=== PATIENT | male | born 1950 | race Caucasian/White ===

== ENCOUNTER 2021-11-27 11:23 | Inpatient (IN) ==
[2021-11-27] MEDS ORDERED: fentaNYL citrate 100 MCG/2 ML VIAL IV STA (11:36)
--- NOTE | 2021-11-27 11:43 | Emergency Department Note ---
Impression & Plan Fall, Closed left hip fracture ED Provider Note Provider: Max Moy MD DATE OF SERVICE: 11/27/2021 CHIEF COMPLAINT: Fall, left hip HISTORY OF PRESENT ILLNESS: Patient is a 71-year-old patient with past medical history including hypothyroidism, interstitial lung disease, and atrial fibri llation only on 81 mg aspirin at this time presenting today after a fall. Patient was walking his dog and his dog pulled him and he fell onto the pavement on his left hip. Immediate pain. Able to sit up and unable to stand due to pain in left hip. Little bit of slight increased numbness from his baseline neuropathy in the left leg but significant pain in the left hip region not in the left knee or ankle or foot. Patient received little bit of fentanyl prior to arrival which has helped with the pain. States he did bump his head but not having significant headache, dizziness, blurry vision, or nauseousness. Denies any significant pain to the upper extremities or injury here. Denies chest pain or shortness of breath. Denies abdominal pain. REVIEW OF SYSTEMS: A total of 10 review of systems was obtained and negative except as stated above in the HPI. PAST MEDICAL HISTORY: As noted above MEDICATIONS: 81 mg SOCIAL HISTORY: Lives at home with PHYSICAL EXAM: GENERAL: alert and oriented in no acute distress on stretcher Head: normocephalic and atraumatic EYES: No injection, discharge or icterus. NECK: Trachea midline. Supple. ENT: Mucous membranes pink and moist. LUNGS: Airway patent. No retractions. Breath sounds clear with good air entry bilaterally. HEART: Regular rate and rhythm. No chest wall tenderness ABDOMEN: Soft and non-tender, without guarding or rebound. SKIN: Acyanotic, warm, dry, without rashes EXTREMITIES: Without swelling, tenderness or deformity except for some shortening and significant pain with ROM of the left hip region with tenderness here. Bruising. Slight abrasion to the left knee but no significant effusion. No bony tenderness left knee, left henderson/calf, or left ankle/foot. NEUROLOGICAL: No focal deficits. No aphasia. No facial droop or slurred speech. Normal strength and tone in the extremities except limited secondary to pain around the left hip. Sensation to gross touch normal. EKG: Under 4 beats for a sinus tachycardia. No PVC or PAC. No acute ST segment elevation with an incomplete right bundle branch block noted. QTc 473. CONTINUOUS CARDIAC MONITORING: was ordered and showed a heart rate of 90s-100s bpm in normal sinus rhythm to sinus tachycardia GCS 15. Patient's laboratory studies and imaging reviewed. Differential includes Fracture, subluxation, dislocation, contusion, ligamentous injury, neurovascular, compartment syndrome, rhabdomyolysis, as well as other pathologies. IMPRESSION/MEDICAL DECISION MAKING: Patient with a fall from walking his dog. No loss of conscious. Is on aspirin. Did strike head but no other neurological finding. Did complete a head CT to exclude acute intracranial abnormality. Denies other injuries beyond the left hip. Small abrasion on left knee but no evidence significant swelling or deformity. No significant tenderness here. Some slight increased numbness r eports in left foot but able to feel gross touch. Good pulse in this left foot. Patient with evidence on x-ray of a left subcapital hip fracture. Given some fentanyl for pain with as needed morphine ordered. Some Tylenol. Basic labs obtained. We will alert the orthopedic team as well as the hospitalist team for further care here for repair. Blood work without significant abnormality. DIAGNOSIS: Fall, left hip fracture DISPOSITION: Hospitalist will evaluate Patient was agreeable with this plan. Past Med/Surg History Medical History History of anesthesia reaction woke up once during a colonoscopy History of atrial fibrillation follows with Dr. Graves Hodgkin disease diagnosed at age 27--had radiation and spleenectomy Hypothyroidism Sleep apnea cpap Surgical History History of cardiac cath 2016 no stents History of cardiac radiofrequency ablation x2-- History of cardioversion History of colonoscopy History of lymph node biopsy malignant--hodgkin History of splenectomy History of wisdom tooth extraction Family History Other No family history of adverse response to anesthesia Social History Smoking Status: Former smoker Tobacco Type: Cigarettes Second Hand Exposure: Yes (mom smoked); Hx Alcohol Use: No Hx Substance Use: No Preferred Language: Arabic Communication Ability: Effective Rn Angiography Required: No Beliefs That Will Affect Care: None Current Living Situation: Spouse Feels Safe at Home: Yes Assistive Devices: Contacts, CPAP and Glasses Allergies Allergies Allergy/AdvReac Type Severity Reaction Status Date / Time No Known Allergies Allergy Verified 05/21/19 08:49 Home Meds Home Medications Medication Instructions Recorded Confirmed aspirin 81 mg tablet,delayed 81 mg PO QAM 11/16/18 11/27/21 release levothyroxine 75 mcg tablet 75 mcg PO QAM 11/16/18 11/27/21 L.acidophil-L.casei-B.bifid-B.longum-FOS 1 cap PO QAM 05/07/19 11/27/21 2 billion cell-50 mg capsule (Probiotic Blend) cholecalciferol (vitamin D3) 25 1,000 unit PO QAM 05/07/19 11/27/21 mcg (1,000 unit) capsule (Vitamin D3) cyanocobalamin (vitamin B-12) 1,000 mcg PO QAM 05/07/19 11/27/21 1,000 mcg tablet (Vitamin B-12) omeprazole 20 mg tablet,delayed 20 mg PO QAM 05/07/19 11/27/21 release albuterol 90 mcg/actuation aerosol 90 mcg INHALATION Q6H PRN 11/27/21 11/27/21 inhaler Results & Data (ED) Vital Signs Vital Signs - 24 hr 11/27/21 11:17 11/27/21 11:23 11/27/21 13:17 Temperature 36.7 C Temperature Source Oral Pulse Rate 106 H Pulse Rate [Left Finger] 98 H Respiratory Rate 18 16 16 Respiratory Depth Normal Blood Pressure 132/79 Blood Pressure [Right Arm] 124/80 118/74 Blood Pressure Mean 96 Blood Pressure Mean [Right Arm] 94 88 Pulse Oximetry 98 95 99 Oxygen Delivery Method Room Air Room Air Room Air Sepsis Recent Fever Within 48 Hours No Sepsis New/Unexplained Change in Mental Status No Sepsis Action Taken by Nursing No Action Required Laboratory Data Result diagrams: 11/27/21 12:07 11/27/21 12:07 Lab Results 11/27/21 11/27/21 11/27/21 Range/Units 12:07 12:07 Unknown WBC 11.02 H (4.8-10.8) K/uL RBC 3.65 L (4.7-6.1) M/uL Hgb 12.7 L (14.0-18.0) g/dL Hct 37.9 L (42-52) % MCV 103.8 H (80-100) fL MCH 34.8 H (25-34) pg MCHC 33.5 (32-36) g/dL RDW Std Deviation 60.5 H (36.4-46.3) fL RDW Coeff of Reza 15.8 H (11.5-14.5) % Plt Count 268 (130-400) K/uL MPV 11.2 H (7.4-10.4) fL Immature Gran % (Auto) 0.3 % Neut % (Auto) 83.5 % Lymph % (Auto) 7.4 % [place] % (Auto) 7.8 % Eos % (Auto) 0.6 % Baso % (Auto) 0.4 % Neut # (Auto) 9.21 H (1.4-6.5) K/uL Lymph # (Auto) 0.81 L (1.2-3.4) K/uL [place] # (Auto) 0.86 H (0.11-0.59) K/uL Eos # (Auto) 0.07 (0-0.5) K/uL Baso # (Auto) 0.04 (0-0.2) K/uL Immature Gran # (Auto) 0.03 H (0.00-0.02) K/uL Sodium 136 (136-145) mmol/L Potassium 4.7 (3.5-5.1) mmol/L Chloride 97 L (98-107) mmol/L Carbon Dioxide 35 H (21-32) mmol/L Anion Gap 4 (3-11) BUN 17 (6-23) mg/dl Creatinine 0.82 (0.6-1.4) mg/dl Est Cr Clr Drug Dosing 76.7 ml/min Est GFR ( Amer) 102.4 ml/min Est GFR (Non-Af Amer) 88.3 ml/min BUN/Creatinine Ratio 20.7 H (10-20) Glucose 100 H (70-99(Fasting)) mg/dl Calcium 9.4 (8.5-10.1) mg/dl SARS-CoV-2, RNA, NAAT NEGATIVE (NEGATIVE) Administered Medications Discontinued Medications Fentanyl Citrate (Fentanyl Citrate 100 Mcg/2 Ml Vial) 50 mcg IV NOW STA Stop: 11/27/21 11:37 Last Admin: 11/27/21 11:40 Dose: 50 mcg Documented by: [id number] Acetaminophen (Ofirmev) 1,000 mg in 100 mls @ 400 mls/hr IV NOW STA Stop: 11/27/21 12:33 Last Infusion: 11/27/21 13:29 Dose: 0 mls/hr Documented by: [id number] Admin: 11/27/21 12:45 Dose: 400 mls/hr Documented by: [id number] Morphine Sulfate (Morphine Sulfate 4 Mg/Ml 1 Ml Carp\Vial) 4 mg IV PRN ONE Stop: 11/27/21 12:21 Last Admin: 11/27/21 12:45 Dose: 4 mg Documented by: [id number] Imaging Data Radiologist's Impression: Chest X-Ray 11/27/21 11:36 XR chest 1V portable CLINICAL HISTORY: fall. Evaluate cardiopulmonary status COMPARISON STUDY: 04/02/2016 TECHNIQUE: 1 view of the chest FINDINGS: Single frontal view of the chest demonstrates the cardiomediastinal silhouette to be within normal limits. Chronic prominence of the interstitial markings is again seen bilaterally. The lungs are clear of alveolar opacities. There is no evidence for pleural effusion. There is no evidence for vascular congestion. There is no acute osseous pathology. IMPRESSION: 1. No acute cardiopulmonary disease. Chronic prominence of the interstitial markings is again seen. ACT 112: Negative or not required by law. Electronically signed by: Link Welsh M.D. 11/27/2021 12:03 PM Hip/Pelvis X-Ray 11/27/21 11:36 XR hip LT 2V w pelvis CLINICAL HISTORY: Status post fall with left hip pain. COMPARISON STUDY: No previous studies for comparison. TECHNIQUE: AP pelvis and left hip 2 views FINDINGS: Bones: There is a displaced, subcapital fracture left femoral neck. The femoral shaft and neck is superiorly displaced in relation to the femoral head. There is coxa varus deformity present. There is no lytic or blastic lesion. Joints: The femoral head maintains its anatomic position within the acetabulum. Soft tissues: There is no focal soft tissue abnormality. There is no radiopaque foreign body. IMPRESSION: 1. Displaced, subcapital fracture of the left femoral neck with coxa varus deformity present. ACT 112: Negative or not required by law. Electronically signed by: Link Welsh M.D. 11/27/2021 12:[address] 11/27/21 12:03 CT head/brain wo con CLINICAL HISTORY: fall on ASA . Evaluate for bleed COMPARISON STUDY: No previous studies for comparison. CT DOSE: 614.27 mGy.cm TECHNIQUE: Standard CT of the Brain was performed without IV contrast. A dose lowering technique was utilized adhering to the principles of ALARA. FINDINGS: Extraaxial space: There is no evidence for subdural hematoma. There are no extra-axial fluid collections. Ventricles and cisterns: The ventricles are mildly dilated bilaterally. There is no evidence for midline shift or mass effect. Parenchyma: There is no subarachnoid or intraparenchymal hemorrhage. There is no evidence for an acute infarct or cerebral edema. There is mild cerebral cortical atrophy and decreased attenuation in the periventricular white matter representing remote small vessel disease. There are no gross mass lesions. Osseous structures: There is no evidence for an acute fracture. The visualized paranasal sinuses are clear. The mastoid air cells are clear bilaterally. Soft tissues: There is no evidence for focal soft tissue swelling. IMPRESSION: 1. No acute intracerebral pathology. 2. Mild cerebral cortical atrophy and remote small vessel disease. ACT 112: Negative or not required by law. Electronically signed by: Link Welsh M.D. 11/27/2021 1:23 PM Discharge Plan Visit Data Chief Complaint: Fall Stated Complaint: FALL, L HIP PAIN ED Provider: Max Moy Discharge Problem: Fall, Closed left hip fracture Patient Disposition: Being Evaluated by Hospitalist Forms Stand Alone Forms: [facility] [place] Prescriptions Prescriptions: No Action aspirin 81 mg Tablet,Delayed Release (Dr/Ec) 81 mg PO QAM RF: 0 levothyroxine 75 mcg tablet 75 mcg PO QAM RF: 0 cyanocobalamin (vitamin B-12) [Vitamin B-12] 1,000 mcg Tablet 1,000 mcg PO QAM RF: 0 cholecalciferol (vitamin D3) [Vitamin D3] 1,000 unit Capsule 1,000 unit PO QAM RF: 0 omeprazole 20 mg Tablet,Delayed Release (Dr/Ec) 20 mg PO QAM RF: 0 Probiotic Blend 2 billion cell-50 mg Capsule 1 cap PO QAM RF: 0 albuterol 90 mcg/actuation Aerosol 90 mcg INHALATION Q6H PRN (Reason: Shortness Of Breath Or Wheezing) RF: 0 Referrals Referrals: Jason Karimi DO [Primary Care Provider] -
--- NOTE | 2021-11-27 12:03 | XRay Report ---
XR hip LT 2V w pelvis CLINICAL HISTORY: Status post fall with left hip pain. COMPARISON STUDY: No previous studies for comparison. TECHNIQUE: AP pelvis and left hip 2 views FINDINGS: Bones: There is a displaced, subcapital fracture left femoral neck. The femoral shaft and neck is sup eriorly displaced in relation to the femoral head. There is coxa varus deformity present. There is no lytic or blastic lesion. Joints: The femoral head maintains its anatomic position within the acetabulum. Soft tissues: There is no focal soft tissue abnormality. There is no radiopaque foreign body. IMPRESSION: 1. Displaced, subcapital fracture of the left femoral neck with coxa varus deformity present. ACT 112: Negative or not required by law. Electronically signed by: Link Welsh M.D. 11/27/2021 12:01 PM
--- NOTE | 2021-11-27 12:04 | XRay Report ---
XR chest 1V portable CLINICAL HISTORY: fall. Evaluate cardiopulmonary status COMPARISON STUDY: 04/02/2016 TECHNIQUE: 1 view of the chest FINDINGS: Single frontal view of the chest demonstrates the cardiomediastinal silhouette to be within normal li mits. Chronic prominence of the interstitial markings is again seen bilaterally. The lungs are clear of alveolar opacities. There is no evidence for pleural effusion. There is no evidence for vascular c ongestion. There is no acute osseous pathology. IMPRESSION: 1. No acute cardiopulmonary disease. Chronic prominence of the interstitial markings is again seen. ACT 112: Negative or not required by law. Electronically signed by: Link Welsh M.D. 11/27/2021 12:03 PM
[2021-11-27] MEDS ORDERED: ACETAMINOPHEN 1,000 MG/100 ML VIAL IV STA (12:19)
[2021-11-27] MEDS ORDERED: MoRPHine SULFATE 4 MG/ML 1 ML CARP\\VIAL IV ONE (12:20)
[2021-11-27 12:24] LABS: Hematocrit (blood only) 37.9 % (42-52); Hemoglobin 12.7 g/dL (14.0-18.0); Mean Corpuscular Hemoglobin 34.8 pg (25-34); Mean Corpuscular Hgb Conc 33.5 g/dL (32-36); Mean Corpuscular Volume 103.8 fL (80-100); Mean Platelet Volume 11.2 fL (7.4-10.4); Platelet Count 268 K/uL (130-400); RDW Coefficient of Variation 15.8 % (11.5-14.5); RDW Standard Deviation 60.5 fL (36.4-46.3); Red Blood Count 3.65 M/uL (4.7-6.1); White Blood Count 11.02 K/uL (4.8-10.8)
--- NOTE | 2021-11-27 12:34 | History & Physical Report ---
Date of Service November 27, 2021 Assessment & Plan (1) Closed left hip fracture: Plan: Closed left hip fracture Secondary to fall --Hip X ray:Displaced, subcapital fracture of the left femoral neck with coxa varus deformity present. --CT Head:No acute intracerebral pathology. Mild cerebral cortical atrophy and remote small vessel disease. Pain control, gentle IV fluids CXR: No acute cardiopulmonary disease. Chronic prominence of the interstitial markings is again seen. DVT Px--SCDs for now Orthopedics consulted NPO after midnight bowel regimen to prevent constipation PT/OT when appropriate Given patient's comorbidities, patient is atleast at moderate risk for surgery, no obvious contraindications. Mild leukocytosis Likely reactive Monitor Interstitial lung disease Pulmonary hypertension Follows with [facility] pulmonology as outpatient Saturating well on room air Albuterol as needed Atrial fibrillation S/P pulmonary vein cryoablation in 2016 Atrial flutter S/P tricuspid isthmus ablation in 2013 Currently not on any rate control medication secondary to chronic intermittent lightheadedness Currently not on any anticoagulation Valvular heart disease Aortic regurgitation, aortic stenosis Follows with [facility] cardiology, Dr. Graves Hodgkin's lymphoma S/P splenectomy, radiation therapy Hypothyroidism TSH 3.77 on 10/13/21 Continue levothyroxine Coronary artery disease Continue aspirin Currently not on statin Obstructive sleep apnea Continue CPAP Prediabetes Last HbA1c 6.4 on Jun 02, 2021 Update HbA1C DVT Px: SCDs for now Re: Planned for surgery Code Status DNI/DNR as per my discussion with patient, patient family. History of Present Illness Chief Complaint: Left Hip Pain Primary Care Provider: Jason Karimi DO Patient is a 71-year-old male with history of interstitial lung disease, pulmonary hypertension, atrial fibrillation, atrial flutter, valvular heart disease, Hodgkin's lymphoma, hypothyroidism, coronary artery disease, obstructive sleep apnea, prediabetes and other medical problems presents with history of left hip pain after a fall this morning. Patient states that he was walking with his dog this morning and his dog pulled him which led to him falling onto the pavement. Patient had significant left hip pain after the fall which he rates it at 9/10, nonradiating, associated with tingling and numbness predominantly in his left lower extremity. Pain increases with movement and controlled with pain medication. Patient was unable to stand up or ambulate after the fall. He admits to having hit back of his head but denies any headache, change in vision, loss of consciousness, dizziness. Patient states having chronic peripheral neuropathy of both lower extremities but tingling and numbness in the left lower extremity slightly worsened after the fall. He also reports having chronic dyspnea on exertion which she attributes to interstitial lung disease. Denies any history of chest pain, dyspnea at rest, pedal edema, cough, fever, chills, nausea, vomiting, abdominal pain, dysuria, recent change in medications. Allergies Allergy/AdvReac Type Severity Reaction Status Date / Time No Known Allergies Allergy Verified 05/21/19 08:49 Home Medications Medication Instructions Recorded Confirmed Type aspirin 81 mg tablet,delayed 81 mg PO QAM 11/16/18 11/27/21 History release levothyroxine 75 mcg tablet 75 mcg PO QAM 11/16/18 11/27/21 History L.acidophil-L.casei-B.bifid-B.longum-FOS 1 cap PO QAM 05/07/19 11/27/21 History 2 billion cell-50 mg capsule (Probiotic Blend) cholecalciferol (vitamin D3) 25 1,000 unit PO QAM 05/07/19 11/27/21 History mcg (1,000 unit) capsule (Vitamin D3) cyanocobalamin (vitamin B-12) 1,000 mcg PO QAM 05/07/19 11/27/21 History 1,000 mcg tablet (Vitamin B-12) omeprazole 20 mg tablet,delayed 20 mg PO QAM 05/07/19 11/27/21 History release albuterol 90 mcg/actuation aerosol 90 mcg INHALATION Q6H PRN 11/27/21 11/27/21 History inhaler Past Med/Surg History Medical History History of anesthesia reaction woke up once during a colonoscopy History of atrial fibrillation follows with Dr. Graves Hodgkin disease diagnosed at age 27--had radiation and spleenectomy Hypothyroidism Sleep apnea cpap Surgical History History of cardiac cath 2015 no stents History of cardiac radiofrequency ablation x2-- History of cardioversion History of colonoscopy History of lymph node biopsy malignant--hodgkin History of splenectomy History of wisdom tooth extraction Family History Other No family history of adverse response to anesthesia Social History Smoking Status: Former smoker Tobacco Type: Cigarettes Second Hand Exposure: Yes (mom smoked); Hx Alcohol Use: No Hx Substance Use: No Preferred Language: Albanian Communication Ability: Effective 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 Beliefs That Will Affect Care: None Current Living Situation: Spouse Feels Safe at Home: Yes Assistive Devices: Contacts, CPAP and Glasses Review of Systems Review of Systems: All systems reviewed & are unremarkable except as noted in Subjective Physical Exam Physical Exam: Physical Exam: Vitals signs as noted above General Appearance:Thin, Frail, no apparent distress Head: normocephalic, Atraumatic Eyes: normal inspection, EOMI Neck: supple, Trachea midline Respiratory/Chest: Normal breath sounds, CTA, No accessory muscle use Cardiovascular: S1, S2, + murmur Abdomen/GI:Soft, Non tender, Bowel sounds present Extremities/Musculoskeletal:normal inspection, no edema Neurologic/Psych:AAOX3, grossly no focal neurological deficits, Left Hip tender, LLE shortened, externally rotataed Skin: normal color, warm Results & Data Results & Data ([facility]) Vital Signs (Past 12 Hours) Vital Signs Temp Pulse Resp BP BP Pulse Ox 11/27/21 11:23 36.7 C 106 H 16 132/79 95 11/27/21 11:17 18 124/80 98 Laboratory Results Short CBC 11/27/21 Range/Units 12:07 WBC 11.02 H (4.8-10.8) K/uL Hgb 12.7 L (14.0-18.0) g/dL Hct 37.9 L (42-52) % Plt Count 268 (130-400) K/uL BMP 11/27/21 12:07 Sodium 136 Potassium 4.7 Chloride 97 L Carbon Dioxide 35 H BUN 17 Creatinine 0.82 Glucose 100 H Calcium 9.[address] Head: No acute intracerebral pathology. Mild cerebral cortical atrophy and remote small vessel disease. Hip X ray: Displaced, subcapital fracture of the left femoral neck with coxa varus deformity present. CXR: No acute cardiopulmonary disease. Chronic prominence of the interstitial markings is again seen. (1) Closed left hip fracture Encounter type: initial encounter Qualified Code(s): S72.002A - Fracture of unspecified part of neck of left femur, initial encounter for closed fracture
[2021-11-27 12:37] LABS: BUN Creatinine Ratio 20.7 (10-20); Calcium 9.4 mg/dl (8.5-10.1); Creatinine Clr Calc Pharmacy 76.7 ml/min; Est GFR (African American) 102.4 ml/min; Est GFR (Non-African American) 88.3 ml/min; Potassium 4.7 mmol/L (3.5-5.1)
[2021-11-27 12:52] LABS: Basophils # (auto) 0.04 K/uL (0-0.2); Basophils % (auto) 0.4 %; Eosinophils # (auto) 0.07 K/uL (0-0.5); Eosinophils % (auto) 0.6 %; Immature Granulocytes # (auto) 0.03 K/uL (0.00-0.02); Immature Granulocytes % (auto) 0.3 %; Lymphocytes # (auto) 0.81 K/uL (1.2-3.4); Lymphocytes % (auto) 7.4 %; Monocytes # (auto) 0.86 K/uL (0.11-0.59); Monocytes % (auto) 7.8 %; Neutrophils # (auto) 9.21 K/uL (1.4-6.5); Neutrophils % (auto) 83.5 %
--- NOTE | 2021-11-27 13:25 | CT Scan Report ---
CT head/brain wo con CLINICAL HISTORY: fall on ASA . Evaluate for bleed COMPARISON STUDY: No previous studies for comparison. CT DOSE: 614.27 mGy.cm TECHNIQUE: Standard CT of the Brain was performed without IV contrast. A dose lowering technique was utilized adhering to the principles of ALARA. FINDINGS: Extraaxial space: There is no evidence for subdural hematoma. There are no extra-axial fluid collecti ons. Ventricles and cisterns: The ventricles are mildly dilated bilaterally. There is no evidence for midl ine shift or mass effect. Parenchyma: There is no subarachnoid or intraparenchymal hemorrhage. There is no evidence for an acut e infarct or cerebral edema. There is mild cerebral cortical atrophy and decreased attenuation in the periventricular white matter representing remote small vessel disease. There are no gross mass lesio ns. Osseous structures: There is no evidence for an acute fracture. The visualized paranasal sinuses are clear. The mastoid air cells are clear bilaterally. Soft tissues: There is no evidence for focal soft tissue swelling. IMPRESSION: 1. No acute intracerebral pathology. 2. Mild cerebral cortical atrophy and remote small vessel disease. ACT 112: Negative or not required by law. Electronically signed by: Link Welsh M.D. 11/27/2021 1:23 PM
[2021-11-27] MEDS ORDERED: MoRPHine SULFATE 4 MG/ML 1 ML CARP\\VIAL IV STA (14:23)
[2021-11-27] MEDS ORDERED: PROMETHAZINE HCL 6.25 MG in SODIUM CHLORIDE 0.9% 50 ML IV PRN (15:07)
[2021-11-27] MEDS ORDERED: oxyCODONE HCL IR 5 MG TAB (IMMEDIATE RELEASE) PO PRN (15:07)
[2021-11-27] MEDS ORDERED: ACETAMINOPHEN 325 MG TAB PO PRN (15:07)
[2021-11-27] MEDS ORDERED: NALOXONE HCL 0.4 MG/1 ML VIAL/CARP IV PRN (15:07)
[2021-11-27] MEDS ORDERED: bisacodyL 10 MG SUPP PR PRN (15:07)
[2021-11-27] MEDS ORDERED: MAGNESIUM HYDROXIDE SUSP 30 ML UDC PO PRN (15:07)
[2021-11-27] MEDS ORDERED: MoRPHine SULFATE 2 MG/ML CARP IV PRN (15:07)
--- NOTE | 2021-11-27 17:29 | Electrocardiogram Report ---
Test Reason : Blood Pressure : / mmHG Vent. Rate : 104 BPM Atrial Rate : 104 BPM P-R Int : 176 ms QRS Dur : 092 ms QT Int : 360 ms P-R-T Axes : 069 060 028 degrees QTc Int : 473 ms Sinus tachycardia Possible Left atrial enlargement Incomplete right bundle branch block Borderline ECG When compared with ECG of 16-NOV-2018 08:50, No significant change was found Confirmed by Shay Rodriguez ([id number]) on 11/27/2021 5:29:23 PM Referred By: REFERRED SELF Confirmed By:Daniel Rodriguez
[2021-11-27] MEDS: oxyCODONE HCL IR 5 MG TAB (IMMEDIATE RELEASE) PO PRN ×2 (17:53→21:55)
[2021-11-27] MEDS ORDERED: SODIUM CHLORIDE 0.9% 1000ML 1,000 ML IV ONE (18:00)
--- NOTE | 2021-11-27 18:15 | Orthopedic Consultation ---
Date of Service November 27, 2021 Assessment & Plan (1) Closed left hip fracture: Patient got displaced femoral neck fracture. He has had a little bit of hip pain beforehand and some hip stiffness and some fairly mild arthritis on x- ray. Considering his general health I think it is probably best to proceed with total hip replacement in this gentleman at this point as opposed to a partial hip replacement. I discussed this with the patient and he is in strong favor of this. Organ to proceed taken the operating to a left total hip replacement. We will likely cement the femoral component and use an uncemented acetabulum. The risk meant this procedure explained the patient include but not limited to DVT PE infection neurological injury vascular bleeding palm pain limb range of motion necessarily of symptoms incomplete relief of symptoms fracture leg length inequality nerve palsy dislocation. Patient understands and desires to proceed. Informed consent was obtained. Will continue DVT prophylaxis and including thigh-high teds SCDs. Will likely use aspirin postoperatively. He may need a rehab stay. Medical management as per the medicine service. History of Present Illness Reason for Consultation: . Left hip fracture. Requesting Physician: . Attending Physician: Jeovanny Scott MD . Patient 71-year-old gentleman with multiple medical comorbidities including history of Hodgkin's lymphoma, heart disease, atrial fibrillation status post ablation, hypothyroidism, coronary artery disease and prediabetes as well as interstitial lung disease who sustained a fall this morning at about 830. He was walking his dog when his dog took off and pulled him and he fell. Acute onset of a hip pain. He could not ambulate afterwards. She brought the emergency room where x-rays revealed left displaced femoral neck fracture. Has been admitted by the medicine service and were consulted for treatment. The patient was a previous independent ambulator. He did note that he was has been having little bit hip pain from time to time and have a little bit more difficulty getting it into some of his yoga poses due to his stiffness. Not much groin pain just mostly lateral hip pain and buttock pain. Allergies Allergy/AdvReac Type Severity Reaction Status Date / Time No Known Allergies Allergy Verified 05/21/19 08:49 Home Medications Medication Instructions Recorded Confirmed Type aspirin 81 mg tablet,delayed 81 mg PO QAM 11/16/18 11/27/21 History release levothyroxine 75 mcg tablet 75 mcg PO QAM 11/16/18 11/27/21 History L.acidophil-L.casei-B.bifid-B.longum-FOS 1 cap PO QAM 05/07/19 11/27/21 History 2 billion cell-50 mg capsule (Probiotic Blend) cholecalciferol (vitamin D3) 25 1,000 unit PO QAM 05/07/19 11/27/21 History mcg (1,000 unit) capsule (Vitamin D3) cyanocobalamin (vitamin B-12) 1,000 mcg PO QAM 05/07/19 11/27/21 History 1,000 mcg tablet (Vitamin B-12) omeprazole 20 mg tablet,delayed 20 mg PO QAM 05/07/19 11/27/21 History release albuterol 90 mcg/actuation aerosol 90 mcg INHALATION Q6H PRN 11/27/21 11/27/21 History inhaler Past Med/Surg History Medical History History of anesthesia reaction woke up once during a colonoscopy History of atrial fibrillation follows with Dr. Graves Hodgkin disease diagnosed at age 27--had radiation and spleenectomy Hypothyroidism Sleep apnea cpap Surgical History History of cardiac cath 2015 no stents History of cardiac radiofrequency ablation x2-- History of cardioversion History of colonoscopy History of lymph node biopsy malignant--hodgkin History of splenectomy History of wisdom tooth extraction Family History Other No family history of adverse response to anesthesia Social History Smoking Status: Former smoker Tobacco Type: Cigarettes Smoking End Date: 1977; Second Hand Exposure: No; Tobacco Cessation Education Requested by Patient: No Hx Alcohol Use: No Hx Substance Use: No Preferred Language: Swedish Communication Ability: Effective Cat Tender Required: No Beliefs That Will Affect Care: None Current Living Situation: Spouse Other Information That Helps Us Care for You: No Feels Safe at Home: Yes Safety Concerns: Feels Safe At This Time Assistive Devices: Contacts and Glasses Review of Systems All systems reviewed & are unremarkable except as noted in HPI & below. Physical Exam . Physical examination reveals a healthy a thin healthy male. He looks to be pretty comfortable lying in bed. Looks quite healthy. Examination the General musculoskeletal exam reveals a painless range of motion and palpation of his cervical and thoracic and lumbar spine. He is got full painless range of motion of both upper extremities and the right lower extremity. Examination of left lower extremity reveals to be slightly shortened and externally rotated. He is got pain with any type of hip motion. No knee e ffusion. He is neurologically intact. Results & Data Results & Data Laboratory Results . Diagnostic Findings . X-rays of the left hip reveal displaced femoral neck fracture. He may have some very mild hip arthritis. PG Care Time/CCT Total # of Minutes Spent Total Time Spent with Patient: Total time spent is greater than 50% in coordination of care (as documented) at patient's floor/unit and/or counseling patient: Coding Level of Care Code 28637 Inpt Consult Level 5 Diagnoses Closed left hip fracture S72.002A Encounter type: initial encounter (1) Closed left hip fracture Encounter type: initial encounter Qualified Code(s): S72.002A - Fracture of unspecified part of neck of left femur, initial encounter for closed fracture
[2021-11-27] MEDS: DOCUSATE SODIUM/SENNA 50/8.6MG TAB PO SCH (20:29)
[2021-11-28] MEDS: LEVOTHYROXINE SODIUM 75 MCG TABLET PO SCH (06:09)
[2021-11-28] MEDS: oxyCODONE HCL IR 5 MG TAB (IMMEDIATE RELEASE) PO PRN (06:30)
[2021-11-28] MEDS: CHOLECALCIFEROL 1,000 UNITS 25 MCG TAB PO SCH (07:51)
[2021-11-28] MEDS: CYANOCOBALAMIN (B-12) 500 MCG TABLET PO SCH (07:51)
[2021-11-28] MEDS: PANTOprazole 40 MG TAB PO SCH (07:51)
[2021-11-28] MEDS ORDERED: ASPIRIN 81 MG ECTAB PO SCH (09:00)
[2021-11-28 09:13] LABS: Hematocrit (blood only) 37.2 % (42-52); Hemoglobin 12.1 g/dL (14.0-18.0); Mean Corpuscular Hemoglobin 33.5 pg (25-34); Mean Corpuscular Hgb Conc 32.5 g/dL (32-36); Mean Platelet Volume 12.2 fL (7.4-10.4); Platelet Count 264 K/uL (130-400); RDW Coefficient of Variation 16.2 % (11.5-14.5); RDW Standard Deviation 61.2 fL (36.4-46.3); Red Blood Count 3.61 M/uL (4.7-6.1); White Blood Count 8.91 K/uL (4.8-10.8)
[2021-11-28 09:41] LABS: BUN Creatinine Ratio 21.9 (10-20); Calcium 8.8 mg/dl (8.5-10.1); Creatinine Clr Calc Pharmacy 98.3 ml/min; Est GFR (African American) 113.4 ml/min; Est GFR (Non-African American) 97.8 ml/min; Potassium 4.2 mmol/L (3.5-5.1)
[2021-11-28 10:03] LABS: Estimated Average Glucose 126 mg/dl
[2021-11-28] MEDS ORDERED: LIDOCAINE 2% 2 ML VIAL/AMP(20MG/ML) INFIL ONE (12:57)
[2021-11-28] MEDS ORDERED: ePHEDrine sulfate 50 MG/ML SYR ONE (12:57)
[2021-11-28] MEDS ORDERED: PROPOFOL IV EMULSION 10 MG/ML 20 ML VIAL IV ONE (12:57)
[2021-11-28] MEDS ORDERED: MIDAZOLAM HCL 1 MG/ML 2ML VIAL ONE (12:57)
[2021-11-28] MEDS ORDERED: fentaNYL citrate 100 MCG/2 ML VIAL ONE (12:58)
--- NOTE | 2021-11-28 13:03 | Anesthesiology Consultation ---
Date of Service November 28, 2021 Assessment & Plan (1) Encounter for pre-operative examination: History Surgery Operation Date: 11/28/21 11:40 Proposed Procedures p Left Hip Bipolar Versus - Mike Raygoza MD s Total Hip Arthroplasty - Mike Raygoza MD Height/Weight Height: 6 ft 2 in Weight: 66.6 kg Allergies Allergy/AdvReac Type Severity Reaction Status Date / Time No Known Allergies Allergy Verified 05/21/19 08:49 Medications Home Medications Medication Instructions Recorded Confirmed Last Taken aspirin 81 mg tablet,delayed 81 mg PO QAM 11/16/18 11/27/21 05/20/19 release levothyroxine 75 mcg tablet 75 mcg PO QAM 11/16/18 11/27/21 05/21/19 L.acidophil-L.casei-B.bifid-B.longum-FOS 1 cap PO QAM 05/07/19 11/27/21 05/20/19 2 billion cell-50 mg capsule (Probiotic Blend) cholecalciferol (vitamin D3) 25 1,000 unit PO QAM 05/07/19 11/27/21 05/20/19 mcg (1,000 unit) capsule (Vitamin D3) cyanocobalamin (vitamin B-12) 1,000 mcg PO QAM 05/07/19 11/27/21 05/20/19 1,000 mcg tablet (Vitamin B-12) omeprazole 20 mg tablet,delayed 20 mg PO QAM 05/07/19 11/27/21 05/21/19 release albuterol 90 mcg/actuation aerosol 90 mcg INHALATION Q6H PRN 11/27/21 11/27/21 Unknown inhaler Active Medications Generic Name Dose Route Start Last Admin Trade Name Lenchoq PRN Reason Stop Dose Admin Aspirin 81 mg 11/28/21 09:00 11/28/21 07:51 Aspirin 81 Mg Ectab PO 12/28/21 08:59 Not Given QAM WEST Cyanocobalamin 1,000 mcg 11/28/21 09:00 11/28/21 07:51 Cyanocobalamin (B-12) 500 Mcg Tablet PO 12/28/21 08:59 Not Given QAM WEST Levothyroxine Sodium 75 mcg 11/28/21 06:30 11/28/21 06:09 Levothyroxine Sodium 75 Mcg Tablet PO 12/28/21 06:29 75 mcg DAILYBB WEST Administration Oxycodone HCl 10 mg 11/27/21 15:07 11/28/21 06:30 Oxycodone Hcl Ir 5 Mg Tab (Immediate Release) PO 12/11/21 15:06 10 mg Q4H PRN Administration SEVERE Pain (7,8,9,10) Pantoprazole Sodium 40 mg 11/28/21 09:00 11/28/21 07:51 Pantoprazole 40 Mg Tab PO 12/28/21 08:59 Not Given QAM WEST Senna/Docusate Sodium 2 tab 11/27/21 21:00 11/27/21 20:29 Docusate Sodium/Senna 50/8.6mg Tab PO 12/27/21 20:59 2 tab HS WEST Administration Vitamin D 1,000 units 11/28/21 09:00 11/28/21 07:51 Cholecalciferol 1,000 Units 25 Mcg Tab PO 12/28/21 08:59 Not Given QAM WEST NPO Date Last Intake of Fluids: 11/27/21 Time Last Intake of Fluids: 23:00 Date Last Intake of Solids: 11/27/21 Time Last Intake of Solids: 20:00 Past Medical History Medical History (Updated 11/28/21 @ 13:02 by Suzanne Palencia MD) History of anesthesia reaction woke up once during a colonoscopy History of atrial fibrillation follows with Dr. Graves Hodgkin disease diagnosed at age 27--had radiation and spleenectomy Hypothyroidism Sleep apnea cpap Past Family History Family History Other No family history of adverse response to anesthesia Past Surgical History Surgical History History of cardiac cath 2016 no stents History of cardiac radiofrequency ablation x2-- History of cardioversion History of colonoscopy History of lymph node biopsy malignant--hodgkin History of splenectomy History of wisdom tooth extraction Social History Smoking Status: Former smoker tobacco type: cigarettes Smoking End Date: 1977 Hx Alcohol Use: No Hx Substance Use: No substance use type: does not use Physical Exam Vital Signs Last Vital Signs Temp 37.4 C 11/28/21 12:08 Pulse 114 H 11/28/21 12:08 Resp 20 11/28/21 12:08 BP 127/72 11/28/21 12:08 Pulse Ox 94 11/28/21 12:08 Testing Laboratory Results 11/28/21 07:38 11/28/21 07:38 Hemoglobin A1c 6.0 % (4.5-5.6) H 11/28/21 07:38 Blood Type B Positive 11/27/21 12:07 Antibody Screen NEGATIVE 11/27/21 12:07 Electrocardiogram Date: 11/27/21 Sinus tachycardia Possible Left atrial enlargement Incomplete right bundle branch block Borderline ECG When compared with ECG of 16-NOV-2018 08:50, No significant change was found Confirmed by Shay Rodriguez ([id number]) on 11/27/2021 5:29:23 PM Chest X-Ray Date: 11/27/21 IMPRESSION: 1. No acute cardiopulmonary disease. Chronic prominence of the interstitial markings is again seen.
--- NOTE | 2021-11-28 13:11 | History & Physical Bridge Note ---
Date of Service November 28, 2021 History & Physical Bridge Note I have examined the patient, reviewed the History & Physical and in the interval since the performance of the History & Physical I have noted the following changes of clinical significance: no changes noted
[2021-11-28] MEDS ORDERED: BUPIVACAINE 0.5 % 5 MG/1 ML MPF 30ML VIAL ONE (13:14)
[2021-11-28] MEDS ORDERED: EPINEPHrine INJ 1 MG/ML AMP ONE (13:14)
[2021-11-28] MEDS ORDERED: ceFAZolin 1000MG 1,000 MG/7.5 ML SYR IV ONE (13:15)
[2021-11-28] MEDS ORDERED: TRANEXAMIC ACID / 0.7% NACL 1000MG/100ML BAG IV ONE (13:57)
[2021-11-28] MEDS ORDERED: ONDANSETRON INJ 2 MG/ML 2 ML VIAL ONE (14:27)
[2021-11-28] MEDS ORDERED: DEXAMETHASONE SOD INJ 4 MG/ML VIAL ONE (14:27)
[2021-11-28] MEDS ORDERED: PHENYLEPHRINE HCL 10 MG/ML VIAL ONE (14:27)
[2021-11-28] MEDS ORDERED: ROCURONIUM BROMIDE 10 MG/ML 5 ML VIAL IV ONE (14:27)
[2021-11-28] MEDS ORDERED: LARYING-O-JET KIT (LTA) ONE (14:29)
[2021-11-28] MEDS ORDERED: ALBUMIN HUMAN 5% 12.5 GM/250 ML VIAL IV ONE (14:49)
[2021-11-28] MEDS ORDERED: SUGAMMADEX SODIUM 200 MG/2 ML VIAL IV ONE (15:21)
--- NOTE | 2021-11-28 15:46 | Operative Report ---
PG Post Operative Report Pre & Post Diagnosis Operation Date: 11/28/21 11:40 Pre-Op Diagnosis: Left displaced fermoral neck fracture Post-Op Diagnosis: Left displaced fermoral neck fracture I identified the patient and participated in the time-out.: Yes Procedure Operation Date: 11/28/21 11:40 Actual Procedures p Left Total Hip Arthroplasty(Left) - Mike Raygoza MD Surgeon Mike Raygoza MD Stringed Instrument Tuner Navin Burrows PA-C Estimated Blood Loss 200 Findings Consistent with Post-Op Diagnosis Operative findings revealed displaced femoral neck fracture. The bone appeared otherwise pretty normal but osteopenic. Some moderate/mild hip arthritis. Fluids 1000 cc of fluid/crystalloid with a 250 cc of albumin Specimens Left femoral head sent for pathology Anesthesia Type General Complications none Disposition Accompanied Patient To Recovery: Yes Indications Patient is 71-year-old fairly active gentleman with multiple medical comorbi dities but very independent ambulator and very active who sustained a fall yesterday. He did have a dog apparently took off and he fell and injured his hip. Acute onset of pain and x-rays revealed displaced femoral neck fracture. The patient admitted by the hospitalist service and medically optimized. Patient was having some pre-existing preinjury hip pain and discomfort. He had some fairly mild x-ray changes consistent with arthritis. Considering this is a relatively young age, active lifestyle and the preoperative symptoms we elected proceed with total hip arthroplasty for this hip fracture. This disposition was made in concert with the patient. Description of Procedure Operative implants consisted of: 1 Biomet G7 size 56 mm acetabular shell. 2. 6.5 cancellous acetabular screws 1 of 35 mm length 1.25 mm length. 3. Dual mobility Biomet acetabular liner. 4. DePuy [place] size 3 high offset cemented femoral stem. 5. +8.5/28 mm metal articular ball with a 44mm dual mobility polyethylene liner. 6. Small cement restrictor. 7. Distal femoral centralizer. The patient was taken the operating, identified, placed on the operating table supine position protectors were properly padded. IV antibiotics tried by anesthesia team. General anesthetic was employed by anesthesia team. Whitten catheter was placed in sterile fashion. The patient was then placed in the right lateral decubitus position. An axillary roll was placed. A Stulberg hip positioner was used for positioning. Left hip and leg were then prepped and draped in usual sterile fashion. A posterior lateral approach to the left hip was then performed through a curvilinear incision centered over the greater trochanter. Sharp dissection Through subcutaneous tissue down to the IT band gluteal fascia the IT band gluteal fascia then incised longitudinally in line with skin incision. The underlying greater bursa was excised. The piriformis and external rotators were tagged and taken off the posterior aspect hip joint capsule. Great care was taken throughout the procedure protect the sciatic nerve at all times. A posterior capsulotomy was then performed leaving a large flap for later repair. The hip was internally rotated and dislocated. A femoral neck osteotomy cut was made just below the fracture line. Admitted about a centimeter plus above the lesser trochanter. Femoral head was removed and sent for pathology. The femur was retracted anteriorly. Attention drawn the acetabulum. The acetabular labrum was excised. The pulvinar fat was excised. Sequential reaming the acetabular was then performed begin with size 47 and progressing up to 55. I did reamed a little bit with a 56 reamer and then placed a 56 mm Biomet G7 acetabular shell in about 40 degrees lateral opening and 20 to 25 degrees of anteversion. I did increase the anteversion as this patient was quite active and mobile and I was concerned with the instability. Trial liner was placed. Attention drawn the femur. The proximal femur 10 with a MAPPING cutter followed by canal finder and lateralizing reamer. Then broached begin the size 1 and progressing up to 3. We tried the 4 broach but it was just too tight so we went back to the 3. The calcar reamer was used smooth and off the calcar. We then trialed the hip. That was quite lax with a lot of soft tissue laxity. Therefore we used a high offset implant. I used a +3.5 mm articular ball. We then trialed this with a 36 mm head. Hip was quite stable but there was still some soft tissue laxity. Due to this activity level and the laxity I elect to place a dual mobility insert in order to maximize his stability. All trial implants were removed. A small cement restrictor was placed distally. A double batch [place] G cement was mixed and injected in the femoral canal. A size 3 [place] high offset femoral stem was then placed with a distal centralizer and held until the cement hardened. A +8.5/28 mm metal articular ball was placed followed by the dual mobility liner. We did place the dual mobility acetabular liner prior to cementing the femur. The hip was located once again found to be stable. Attention drawn toward closing. I irrigated extensively. We did inject locally with 60 cc of half percent Marcaine with epinephrine. The posterior capsule and external rotators were repaired through drill holes in the posterior trochanter with #2 Tycron suture. The IT band gluteal fascia then closed in 1 PDS suture in a running fashion for subcutaneous tissues then closed with 2 layers the deep layer #1 Vicryl suture subcutaneous tissue with 2 Dexon suture in a buried interrupted fashion for skin was closed skin savannah. Leg was then cleaned and dried and sterile dressing was Xeroform, 4 fours, sterile ABD pad, foam tape was applied. The patient then brought out of general anesthesia and transferred to the recovery room in stable condition. The patient tolerated the procedure well and there were no complications. Navin Burrows, my physician support assistant, was present for the entire procedure. His assistance was essential and required for appropriate patient positioning, prepping and draping, surgical exposure, performing the technical details of the operation, placement the implants, closure of the wound, and placement of the sterile bandage. I attest to the content of the Intraoperative Record and any orders documented therein. Any exceptions are noted below.
[2021-11-28] MEDS ORDERED: METOPROLOL TARTRATE 1 MG/ML VIAL IV ONE (16:31)
[2021-11-28] MEDS ORDERED: METOPROLOL TARTRATE 1 MG/ML VIAL IV STA (16:32)
--- NOTE | 2021-11-28 16:41 | Anesthesiology Progress Note ---
Date of Service November 28, 2021 Anesthesia Post Procedure Vital Signs Vital Signs: Temp Pulse Pulse Pulse Resp BP Pulse Ox 11/28/21 16:40 88 15 122/79 100 11/28/21 16:30 104 H 15 110/70 97 11/28/21 16:20 36.4 C L 104 H 15 114/79 94 11/28/21 16:10 97 H 15 108/64 100 11/28/21 16:00 95 H 16 109/63 100 11/28/21 15:52 36.5 C 92 H 16 114/63 100 11/28/21 12:08 37.4 C 114 H 20 127/72 94 11/28/21 07:02 36.9 C 95 H 18 105/66 93 11/27/21 23:26 36.8 C 97 H 18 112/73 92 11/27/21 22:45 87 20 91 11/27/21 22:06 91 H 24 90 Pain Intensity Left Hip: Pain Intensity: 2 Transfer of Care Handoff Completed per policy Notes Mental Status: alert / awake / arousable and participated in evaluation Patient Amnestic to Procedure: Yes Nausea / Vomiting: adequately controlled Pain: adequately controlled Airway Patency, RR, SpO2: stable & adequate BP & HR: stable & adequate Hydration State: stable & adequate Anesthetic Complications: no major complications apparent and Pt Satisfied with anesthetic care
--- NOTE | 2021-11-28 16:58 | XRay Report ---
XR hip LT min 2V CLINICAL HISTORY: Post-Operative implant position. COMPARISON STUDY: 11/27/2021 TECHNIQUE: 2 left hip views FINDINGS: The patient is status post total hip replacement. The prosthetic components are in anatomic alignment with no acute abnormality seen. IMPRESSION: 1. Status post total hip replacement ACT 112: Negative or not required by law. Electronically signed by: Link Welsh M.D. 11/28/2021 4:57 PM
[2021-11-28] MEDS: SODIUM CHLORIDE 0.9% 1000ML 1,000 ML IV SCH (17:00)
[2021-11-28] MEDS ORDERED: ALBUTEROL HFA 8 GM INHALER INH PRN (17:41)
--- NOTE | 2021-11-28 18:54 | Hospitalist Progress Note ---
Date of Service November 28, 2021 Assessment & Plan (1) Closed left hip fracture: Plan: Closed left hip fracture Secondary to fall --Hip X ray:Displaced, subcapital fracture of the left femoral neck with coxa varus deformity present. --CT Head:No acute intracerebral pathology. Mild cerebral cortical atrophy and remote small vessel disease. S/P Left Total Hip Arthroplasty(Left) by on 11/28/21 Pain control, gentle IV fluids CXR: No acute cardiopulmonary disease. Chronic prominence of the interstitial markings is again seen. DVT Px--SCDs for now Appreciate Orthopedics Input Bowel regimen to prevent constipation PT/OT when appropriate Incentive spirometry Monitor for postop anemia Mild leukocytosis Likely reactive Monitor Interstitial lung disease Pulmonary hypertension Follows with [facility] pulmonology as outpatient Saturating well on room air Albuterol as needed Atrial fibrillation S/P pulmonary vein cryoablation in 2016 Atrial flutter S/P tricuspid isthmus ablation in 2013 Currently not on any rate control medication secondary to chronic intermittent lightheadedness Currently not on any anticoagulation Valvular heart disease Aortic regurgitation, aortic stenosis Follows with [facility] cardiology, Dr. Graves Hodgkin's lymphoma S/P splenectomy, radiation therapy Hypothyroidism TSH 3.77 on 10/13/21 Continue levothyroxine Coronary artery disease Continue aspirin Currently not on statin Obstructive sleep apnea Continue CPAP Prediabetes HbA1C: 6.0 DVT Px: SCDs for now Code Status DNI/DNR Admission and Anticipated Discharge Date Admission Date: November 27, 2021 Subjective Patient is seen and examined at bedside Plan for left total hip arthroplasty today Pain at fracture site is controlled Denies any chest pain, shortness of breath, dizziness, nausea, abdominal pain Offers no other complaints Review of Systems Review of Systems: All systems reviewed & are unremarkable except as noted in Subjective Physical Exam Physical Exam: Physical Exam: Vitals signs as noted above General Appearance:Thin, Frail, no apparent distress Head: normocephalic, Atraumatic Eyes: normal inspection, EOMI Neck: supple, Trachea midline Respiratory/Chest: Normal breath sounds, CTA, No accessory muscle use Cardiovascular: S1, S2, + murmur Abdomen/GI:Soft, Non tender, Bowel sounds present Extremities/Musculoskeletal:normal inspection, no edema Neurologic/Psych:AAOX3, grossly no focal neurological deficits, Left Hip tender, LLE shortened, externally rotataed Skin: normal color, warm Results & Data Results & Data ([facility]) Vital Signs (Past 12 Hours) Vital Signs Temp Pulse Pulse Resp BP Pulse Ox 11/28/21 17:59 36.6 C 106 H 17 96/60 L 91 11/28/21 17:30 36.3 C L 101 H 16 100/57 L 96 11/28/21 17:00 36.5 C 92 H 16 101/63 96 11/28/21 16:40 88 15 122/79 100 11/28/21 16:30 104 H 15 110/70 97 11/28/21 16:20 36.4 C L 104 H 15 114/79 94 11/28/21 16:10 97 H 15 108/64 100 11/28/21 16:00 95 H 16 109/63 100 11/28/21 15:52 36.5 C 92 H 16 114/63 100 11/28/21 12:08 37.4 C 114 H 20 127/72 94 11/28/21 07:02 36.9 C 95 H 18 105/66 93 Laboratory Results Short CBC 11/28/21 Range/Units 07:38 WBC 8.91 (4.8-10.8) K/uL Hgb 12.1 L (14.0-18.0) g/dL Hct 37.2 L (42-52) % Plt Count 264 (130-400) K/uL BMP 11/28/21 07:38 Sodium 137 Potassium 4.2 Chloride 99 Carbon Dioxide 32 BUN 14 Creatinine 0.64 Glucose 92 Calcium 8.8 (1) Closed left hip fracture Encounter type: initial encounter Qualified Code(s): S72.002A - Fracture of unspecified part of neck of left femur, initial encounter for closed fracture
[2021-11-28] MEDS: DOCUSATE SODIUM/SENNA 50/8.6MG TAB PO SCH (20:15)
[2021-11-29] MEDS: SODIUM CHLORIDE 0.9% 1000ML 1,000 ML IV SCH ×2 (05:30→18:10)
[2021-11-29] MEDS: LEVOTHYROXINE SODIUM 75 MCG TABLET PO SCH (06:17)
[2021-11-29 07:58] LABS: Hematocrit (blood only) 34.9 % (42-52); Hemoglobin 11.6 g/dL (14.0-18.0); Mean Corpuscular Hgb Conc 33.2 g/dL (32-36); Mean Corpuscular Volume 102.3 fL (80-100); Mean Platelet Volume 11.6 fL (7.4-10.4); Platelet Count 231 K/uL (130-400); RDW Standard Deviation 59.9 fL (36.4-46.3); Red Blood Count 3.41 M/uL (4.7-6.1); White Blood Count 15.14 K/uL (4.8-10.8)
[2021-11-29] MEDS: PANTOprazole 40 MG TAB PO SCH (08:05)
[2021-11-29] MEDS: CHOLECALCIFEROL 1,000 UNITS 25 MCG TAB PO SCH (08:05)
[2021-11-29] MEDS: CYANOCOBALAMIN (B-12) 500 MCG TABLET PO SCH (08:06)
[2021-11-29] MEDS: ADVANCED PROBIOTIC 1250 MG CAPSULE PO SCH (08:06)
[2021-11-29 08:31] LABS: Basophils # (auto) 0.01 K/uL (0-0.2); Basophils % (auto) 0.1 %; Howell-Jolly Bodies Occasional; Immature Granulocytes # (auto) 0.02 K/uL (0.00-0.02); Immature Granulocytes % (auto) 0.1 %; Lymphocytes # (auto) 1.01 K/uL (1.2-3.4); Lymphocytes % (auto) 6.7 %; Monocytes # (auto) 2.08 K/uL (0.11-0.59); Monocytes % (auto) 13.7 %; Neutrophils # (auto) 12.02 K/uL (1.4-6.5); Neutrophils % (auto) 79.4 %
[2021-11-29 08:40] LABS: BUN Creatinine Ratio 21.7 (10-20); Calcium 8.8 mg/dl (8.5-10.1); Creatinine Clr Calc Pharmacy 104.8 ml/min; Est GFR (African American) 116.4 ml/min; Est GFR (Non-African American) 100.5 ml/min; Potassium 4.5 mmol/L (3.5-5.1)
--- NOTE | 2021-11-29 17:41 | Hospitalist Progress Note ---
Date of Service November 29, 2021 Assessment & Plan (1) Closed left hip fracture: Plan: Closed left hip fracture Secondary to fall --Hip X ray:Displaced, subcapital fracture of the left femoral neck with coxa varus deformity present. --CT Head:No acute intracerebral pathology. Mild cerebral cortical atrophy and remote small vessel disease. S/P Left Total Hip Arthroplasty(Left) by on 11/28/21 Pain control, gentle IV fluids CXR: No acute cardiopulmonary disease. Chronic prominence of the interstitial markings is again seen. DVT Px--Start Lovenox SQ Appreciate Orthopedics Input Bowel regimen to prevent constipation PT/OT when appropriate Incentive spirometry Monitor for postop anemia PT recommends Rehab placement BP low: continue IV Fluids Mild leukocytosis Likely reactive Monitor Interstitial lung disease Pulmonary hypertension Follows with [facility] pulmonology as outpatient Saturating well on room air Albuterol as needed Atrial fibrillation S/P pulmonary vein cryoablation in 2016 Atrial flutter S/P tricuspid isthmus ablation in 2013 Currently not on any rate control medication secondary to chronic intermittent lightheadedness Currently not on any anticoagulation Valvular heart disease Aortic regurgitation, aortic stenosis Follows with [facility] cardiology, Dr. Graves Hodgkin's lymphoma S/P splenectomy, radiation therapy Hypothyroidism TSH 3.77 on 10/13/21 Continue levothyroxine Coronary artery disease Continue aspirin Currently not on statin Obstructive sleep apnea Continue CPAP Prediabetes HbA1C: 6.0 DVT Px: SCDs for now Code Status DNI/DNR Admission and Anticipated Discharge Date Admission Date: November 27, 2021 Subjective Patient is seen and examined at bedside Doing well today LLE numbness better after surgery Pain is controlled Had PT earlier today BP relatively low Denies any chest pain, shortness of breath, dizziness, nausea, abdominal pain Review of Systems Review of Systems: All systems reviewed & are unremarkable except as noted in Subjective Physical Exam Physical Exam: Physical Exam: Vitals signs as noted above General Appearance:Thin, Frail, no apparent distress Head: normocephalic, Atraumatic Eyes: normal inspection, EOMI Neck: supple, Trachea midline Respiratory/Chest: Normal breath sounds, CTA, No accessory muscle use Cardiovascular: S1, S2, + murmur Abdomen/GI:Soft, Non tender, Bowel sounds present Extremities/Musculoskeletal:normal inspection, no edema Neurologic/Psych:AAOX3, grossly no focal neurological deficits, Left Hip dressing Skin: normal color, warm Results & Data Results & Data ([facility]) Vital Signs (Past 12 Hours) Vital Signs Temp Pulse Resp BP Pulse Ox 11/29/21 14:17 37.1 C 109 H 16 92/52 L 91 11/29/21 12:01 36.6 C 108 H 16 100/53 L 91 11/29/21 07:34 36.9 C 96 H 16 108/69 90 Laboratory Results Short CBC 11/29/21 Range/Units 07:28 WBC 15.14 H (4.8-10.8) K/uL Hgb 11.6 L (14.0-18.0) g/dL Hct 34.9 L (42-52) % Plt Count 231 (130-400) K/uL BMP 11/29/21 07:28 Sodium 138 Potassium 4.5 Chloride 99 Carbon Dioxide 35 H BUN 13 Creatinine 0.60 Glucose 114 H Calcium 8.8 (1) Closed left hip fracture Encounter type: initial encounter Qualified Code(s): S72.002A - Fracture of unspecified part of neck of left femur, initial encounter for closed fracture
[2021-11-29] MEDS: ACETAMINOPHEN 325 MG TAB PO PRN (21:01)
[2021-11-29] MEDS: DOCUSATE SODIUM/SENNA 50/8.6MG TAB PO SCH (21:07)
[2021-11-30] MEDS: LEVOTHYROXINE SODIUM 75 MCG TABLET PO SCH (06:01)
[2021-11-30] MEDS: ACETAMINOPHEN 325 MG TAB PO PRN (06:04)
[2021-11-30 06:26] LABS: Hematocrit (blood only) 33.8 % (42-52); Hemoglobin 11.3 g/dL (14.0-18.0); Mean Corpuscular Hemoglobin 34.7 pg (25-34); Mean Corpuscular Hgb Conc 33.4 g/dL (32-36); Mean Corpuscular Volume 103.7 fL (80-100); Mean Platelet Volume 11.9 fL (7.4-10.4); Platelet Count 206 K/uL (130-400); RDW Coefficient of Variation 16.1 % (11.5-14.5); RDW Standard Deviation 60.4 fL (36.4-46.3); Red Blood Count 3.26 M/uL (4.7-6.1); White Blood Count 13.73 K/uL (4.8-10.8)
[2021-11-30] MEDS ORDERED: ENOXAPARIN INJ 40 MG/0.4 ML SYR SQ SCH (09:00)
[2021-11-30] MEDS: ADVANCED PROBIOTIC 1250 MG CAPSULE PO SCH (09:50)
[2021-11-30] MEDS: CHOLECALCIFEROL 1,000 UNITS 25 MCG TAB PO SCH (10:20)
[2021-11-30] MEDS: CYANOCOBALAMIN (B-12) 500 MCG TABLET PO SCH (10:20)
[2021-11-30] MEDS: PANTOprazole 40 MG TAB PO SCH (10:20)
[2021-11-30] MEDS: oxyCODONE HCL IR 5 MG TAB (IMMEDIATE RELEASE) PO PRN (10:55)
--- NOTE | 2021-11-30 11:54 | Hospitalist Progress Note ---
Date of Service November 30, 2021 Assessment & Plan (1) Closed left hip fracture: Plan: Closed left hip fracture Secondary to fall --Hip X ray:Displaced, subcapital fracture of the left femoral neck with coxa varus deformity present. --CT Head:No acute intracerebral pathology. Mild cerebral cortical atrophy and remote small vessel disease. S/P Left Total Hip Arthroplasty(Left) by on 11/28/21 Pain control, gentle IV fluids CXR: No acute cardiopulmonary disease. Chronic prominence of the interstitial markings is again seen. DVT Px--Start Lovenox SQ Appreciate Orthopedics Input Bowel regimen to prevent constipation PT/OT when appropriate Incentive spirometry Monitor for postop anemia Plan to discharge to Rehab Today Needs follow-up with orthopedics Dr. Raygoza upon discharge Mild leukocytosis Likely reactive WBC count trending down Monitor Interstitial lung disease Pulmonary hypertension Follows with [facility] pulmonology as outpatient Saturating well on room air Albuterol as needed Atrial fibrillation S/P pulmonary vein cryoablation in 2016 Atrial flutter S/P tricuspid isthmus ablation in 2013 Currently not on any rate control medication secondary to chronic intermittent lightheadedness Currently not on any anticoagulation Valvular heart disease Aortic regurgitation, aortic stenosis Follows with [facility] cardiology, Dr. Graves Hodgkin's lymphoma S/P splenectomy, radiation therapy Hypothyroidism TSH 3.77 on 10/13/21 Continue levothyroxine Coronary artery disease Continue aspirin Currently not on statin Obstructive sleep apnea Continue CPAP Prediabetes HbA1C: 6.0 DVT Px: Lovenox SQ Code Status DNI/DNR Disposition Rehab Admission and Anticipated Discharge Date Admission Date: November 27, 2021 Subjective Patient is seen and examined at bedside Had PT earlier today Pain at surgical site is controlled Discussed with Ortho today Denies any chest pain, shortness of breath, dizziness, nausea, abdominal pain Plan to discharge to Rehab today Review of Systems Review of Systems: All systems reviewed & are unremarkable except as noted in Subjective Physical Exam Physical Exam: Physical Exam: Vitals signs as noted above General Appearance:Thin, Frail, no apparent distress Head: normocephalic, Atraumatic Eyes: normal inspection, EOMI Neck: supple, Trachea midline Respiratory/Chest: Normal breath sounds, CTA, No accessory muscle use Cardiovascular: S1, S2, + murmur Abdomen/GI:Soft, Non tender, Bowel sounds present Extremities/Musculoskeletal:normal inspection, no edema Neurologic/Psych:AAOX3, grossly no focal neurological deficits, Left Hip dressing Skin: normal color, warm Results & Data Results & Data ([facility]) Vital Signs (Past 12 Hours) Vital Signs Temp Pulse Resp BP Pulse Ox 11/30/21 07:34 36.8 C 101 H 16 106/59 L 93 Laboratory Results Short CBC 11/30/21 Range/Units 05:33 WBC 13.73 H (4.8-10.8) K/uL Hgb 11.3 L (14.0-18.0) g/dL Hct 33.8 L (42-52) % Plt Count 206 (130-400) K/uL (1) Closed left hip fracture Encounter type: initial encounter Qualified Code(s): S72.002A - Fracture of unspecified part of neck of left femur, initial encounter for closed fracture
--- NOTE | 2021-11-30 11:58 | Discharge Summary ---
Date of Service November 30, 2021 Admission HPI Per Admitting Provider Patient is a 71-year-old male with history of interstitial lung disease, pulmonary hypertension, atrial fibrillation, atrial flutter, valvular heart disease, Hodgkin's lymphoma, hypothyroidism, coronary artery disease, obstructive sleep apnea, prediabetes and other medical problems presents with history of left hip pain after a fall this morning. Patient states that he was walking with his dog this morning and his dog pulled him which led to him falling onto the pavement. Patient had significant left hip pain after the fall which he rates it at 9/10, nonradiating, associated with tingling and numbness predominantly in his left lower extremity. Pain increases with movement and controlled with pain medication. Patient was unable to stand up or ambulate after the fall. He admits to having hit back of his head but denies any headache, change in vision, loss of consciousness, dizziness. Patient states having chronic peripheral neuropathy of both lower extremities but tingling and numbness in the left lower extremity slightly worsened after the fall. He also reports having chronic dyspnea on exertion which she attributes to interstitial lung disease. Denies any history of chest pain, dyspnea at rest, pedal edema, cough, fever, chills, nausea, vomiting, abdominal pain, dysuria, recent change in medications. Admission Exam Per Admitting Provider Physical Exam Physical Exam: Physical Exam: Vitals signs as noted above General Appearance:Thin, Frail, no apparent distress Head: normocephalic, Atraumatic Eyes: normal inspection, EOMI Neck: supple, Trachea midline Respiratory/Chest: Normal breath sounds, CTA, No accessory muscle use Cardiovascular: S1, S2, + murmur Abdomen/GI:Soft, Non tender, Bowel sounds present Extremities/Musculoskeletal:normal inspection, no edema Neurologic/Psych:AAOX3, grossly no focal neurological deficits, Left Hip tender, LLE shortened, externally rotataed Skin: normal color, warm Principal Diagnosis Left Hip Replacement for fracture Discharge Data Allergies Allergy/AdvReac Type Severity Reaction Status Date / Time No Known Allergies Allergy Verified 05/21/19 08:49 Consultations 11/27/21 12:19 Consult Orthopedic Surgery Routine ED Decision to Admit Stat 11/27/21 15:07 Consult Orthopedic Surgery Routine Procedures Performed Operation Date: 11/28/21 11:40 Actual Procedures p Left Total Hip Arthroplasty(Left) - Mike Raygoza MD Ordered Studies 11/27/21 12:03 CT head/brain wo con Stat Hospital Course (1) Closed left hip fracture: Closed left hip fracture Secondary to fall --Hip X ray:Displaced, subcapital fracture of the left femoral neck with coxa varus deformity present. --CT Head:No acute intracerebral pathology. Mild cerebral cortical atrophy and remote small vessel disease. S/P Left Total Hip Arthroplasty(Left) by on 11/28/21 Pain control, gentle IV fluids CXR: No acute cardiopulmonary disease. Chronic prominence of the interstitial markings is again seen. DVT Px--Start Lovenox SQ Appreciate Orthopedics Input Bowel regimen to prevent constipation PT/OT when appropriate Incentive spirometry Monitor for postop anemia Plan to discharge to Rehab Today Needs follow-up with orthopedics Dr. Raygoza upon discharge Mild leukocytosis Likely reactive WBC count trending down Monitor Interstitial lung disease Pulmonary hypertension Follows with [facility] pulmonology as outpatient Saturating well on room air Albuterol as needed Atrial fibrillation S/P pulmonary vein cryoablation in 2016 Atrial flutter S/P tricuspid isthmus ablation in 2013 Currently not on any rate control medication secondary to chronic intermittent lightheadedness Currently not on any anticoagulation Valvular heart disease Aortic regurgitation, aortic stenosis Follows with [facility] cardiology, Dr. Graves Hodgkin's lymphoma S/P splenectomy, radiation therapy Hypothyroidism TSH 3.77 on 10/13/21 Continue levothyroxine Coronary artery disease Continue aspirin Currently not on statin Obstructive sleep apnea Continue CPAP Prediabetes HbA1C: 6.0 DVT Px: Lovenox SQ Code Status DNI/DNR Disposition Rehab Total Time Total Time Spent Total Time Spent (In Minutes): 45 minutes Discharge Plan Discharge Items Patient Disposition: Transfer Inpatient Rehab Fac Reason For Visit: LEFT HIP FRACTURE Discharge Diagnosis: Left Hip Replacement for fracture Activity: Per Instructions section Activity Comment: Obey/Follow hip precautions at all times Non-emergency contact: Primary Care Provider and Surgeon Call non-emergency contact if: you have any medication questions Follow-up/Referrals: Mike Raygoza MD [Physician] - (Orthopedic follow-up 2-3 weeks from surgery date) Jason Karimi DO [Primary Care Provider] - Diet: Heart Healthy Addtl Attending Provider Instructions: ACTIVITY RECOMMENDATIONS: Physical Therapy: * Aggressive physical therapy is not usually needed. You will learn to take care of yourself safely and walk. * Follow the "Hip Precautions Instructions." * In some cases, the marriage and family social worker at the hospital will arrange to have a therapist come to your house for the first couple of weeks to help you learn these skills. * You need to practice on your own or with the help of a family member as needed. * When you learn these skills, most of the therapy can be done on your own. Home Exercise: * You were shown a series of exercises in the hospital. Do these exercises three to four times each day including the exercises you were shown in physical therapy. Walking: * Get up and walk several times each day. For the first four weeks, try not to stand or walk for more than one hour at a time. If you do stand or walk for more than one hour, you will not hurt anything, but your leg will likely swell. * As you feel comfortable, you may change from the walker or crutches to a cane and then to independent walking. MEDICATIONS: New Medicine: * You will likely be taking one or more of these medicines: 1. Tramadol - Take, as directed, when you need it, every six hours to control your pain. 2. Aspirin - Thins your blood to lessen the chance of forming a blood clot. * The most common side effects of pain medicine and iron are nausea and constipation. If nausea or constipation is too much of a problem or if you have any questions about your new medicines or doses, call [facility] at . We will try to help you manage these issues. "VERY IMPORTANT TO READ AND REVIEW" Pain: * The immediate post-operative period after hip replacement surgery is often quite painful. * You are given a prescription for pain medicine. You should take it, as directed, when you need it, especially before physical therapy and before going to bed. Pain that interferes with sleep is very common and can last several months. * You will likely need pain medicine for the first two to four weeks. It will not stop all of the pain. The pain will lessen and as you feel better, you may change to milder pain medicine such as Tylenol. * The most common side effects of pain medicine are nausea and constipation, so don't take more than you need. SPECIAL CARE INSTRUCTIONS: TEDs/Elastic Stockings: * The white elastic stockings help limit swelling and prevent blood clots from forming in your legs. The more you wear them, the more they work. * Wear them for six weeks. Incision Site Care: * Remove dressing postoperative day 2 and then shower. Keep direct shower pressure off the incision site. * After showering, cover shady with dry gauze and change daily or more frequently if the dressing is getting saturated with drainage. * May completely stop using bandage if wound is dry and no drainage * Shady are removed between 2 and 3 weeks post-op. If your follow-up appointment is made before 2 weeks, please have your appointment re- scheduled. It is too early to remove the shady. Prevention of Infection: * Take antibiotics one hour before any dental cleaning, dental work, urological procedure, gastrointestinal procedure or any invasive surgery in order to prevent your new joint from getting infected. * You may get the antibiotics from the doctor performing the procedure or you may call our office at before and we will call in a prescription to the pharmacy of your choice. Things to Watch For: * Drainage from the incision site that occurs more than one week after your surgery. * Severely increased leg pain or swelling. * Increased redness at the incision site. * Fever above 102 degrees Fahrenheit. * Unusual chest pain or shortness of breath. * Unusual pain or burning with urination. Call [facility] at with any of the above problems or if you have any questions about your medicines or recovery. FOLLOW UP VISIT: Make an appointment to see your doctor for approximately two weeks after surgery for a progress check and staple removal by calling the office at . Addtl Rail Switch Operator Provider Instructions: Follow-up with your primary care physician Dr. Karimi in 1 week upon discharge from rehab facility Follow-up with your surgeon Dr. Raygoza as advised. --- Continue Lovenox SQ for DVT prophylaxis while at rehab facility. Further instructions as per your physician. Seek immediate medical attention if your symptoms reoccur or worsen Please take all medications as instructed on discharge list below. Please call if you have any questions or problems. You can reach a [facility] hospitalist on duty at [facility] 24 hours a day by calling [phone] Pending Studies at Discharge: No Stand-Alone Forms: My [facility] Skilled Items Patient informed of condition?: No DNR: Yes Discharge Level of Care: Acute rehab Communicable Disease: No Discharge Prognosis: Stable Lines: None Urinary Catheter: No Medications and DC Order Prescriptions: New enoxaparin [Lovenox] 40 mg/0.4 mL Syringe 40 mg subcut QAM 30 Days Qty: 12 RF: 0 sennosides-docusate sodium [Senokot-S] 8.6-50 mg Tablet 2 tab PO HS PRN (Reason: Constipation) Qty: 0 RF: 0 oxycodone 5 mg Tablet 5 mg PO Q4H PRNQty: 0 RF: 0 Continued aspirin 81 mg Tablet,Delayed Release (Dr/Ec) 81 mg PO QAM RF: 0 levothyroxine 75 mcg tablet 75 mcg PO QAM RF: 0 cyanocobalamin (vitamin B-12) [Vitamin B-12] 1,000 mcg Tablet 1,000 mcg PO QAM RF: 0 cholecalciferol (vitamin D3) [Vitamin D3] 1,000 unit Capsule 1,000 unit PO QAM RF: 0 omeprazole 20 mg Tablet,Delayed Release (Dr/Ec) 20 mg PO QAM RF: 0 Probiotic Blend 2 billion cell-50 mg Capsule 1 cap PO QAM RF: 0 albuterol 90 mcg/actuation Aerosol 90 mcg INHALATION Q6H PRN (Reason: Shortness Of Breath Or Wheezing) RF: 0 Discharge Orders: Discharge Order (Routine); Ordered 11/30/21 Ordered By: Jeovanny Rodriguez/Other Patient Handouts: A1C Admission Data Admit Date/Time: 11/27/21 13:15 Attending Provider: Jeovanny Scott Admit Provider: Jeovanny Scott Primary Care Provider: Jason Karimi Other Providers: [facility]goza ; [facility] ; Jeovanny Scott
--- NOTE | 2021-11-30 14:38 | Progress Notes ---
DATE OF SERVICE: 11/30/2021 SUBJECTIVE: A 71-year-old gentleman postop day 2 from a left hybrid total hip replacement done for f racture. He is doing pretty well. He is getting around reasonably well. Hoping to go to rehab. No chest pain or shortness of breath. Not feeling dizzy or lightheaded. OBJECTIVE: VITAL SIGNS: Temperature is 36.8. Vital signs are stable. PHYSICAL EXAMINATION: GENERAL: Shows a pleasant, healthy appearing middle-aged male. He is sitting up and was talking on the phone. EXTREMITIES: Examination of the left hip reveals the dressing to be clean, dry and intact. Leg keegan ths are equal. He can dorsiflex and plantarflex his foot appropriately. He is neurologically intact . LABORATORY: Hemoglobin is 11.3. Hematocrit 33.8. Electrolytes not recorded today. ASSESSMENT: A 71-year-old gentleman postoperative day 2 from a left hip replacement done for fractur e, doing well. PLAN: 1. DVT prophylaxis includes thigh-high TEDs, SCDs, and he is on Lovenox as per the medicine service. 2. PT, OT, weightbear as tolerated. Left total hip protocol. 3. Pain control, doing okay with current pain regimen. 4. Disposition: Plan to discharge to rehab later today. Job ID: [id number]
== END 2021-11-30 16:46 | DRG 522 ==
LOC: ED 11:23 → 3N 13:15

== ENCOUNTER 2023-10-08 12:27 | Observation (INO) ==
--- NOTE | 2023-10-08 13:14 | Emergency Department Note ---
Impression & Plan Chest pain, Non-ST elevation RI (NSTEMI), Left-sided headache ED Provider Note HISTORY OF PRESENT ILLNESS: Patient is a 73-year-old male presenting with left-sided headache and left-sided chest pain. Patient reports that yesterday he thinks he suffered a TIA, as he had 2 to 3 minutes of left-sided headache, slurred speech and difficulties getting his words out. He states that he had a lingering headache throughout the rest of the evening and into today. He states that he was at outpatient appointment was referred to the emergency department for further evaluation. Patient is on Xarelto after an aortic valve replacement. He does report some left-sided chest pain that radiates into his left shoulder and down his left arm. He denies any DVT or PE history. Denies any history of cardiac stents. He denies any shortness of breath, nausea or vomiting with the pain. He does report he took 325 mg of aspirin prior to arrival. Rates the chest pain denies any dull pressure in his left chest that radiates into his left shoulder. Denies any changes in his vision. Denies any new numbness or tingling or weakness in extremities. Denies any speech changes or slurred speech ROS: as above PHYSICAL EXAM: Constitutional: Patient appears in no acute distress. HENT: Head: Normocephalic and atraumatic. Eyes: EOMI, PERRL Mouth/Throat: Mucous membranes moist. Neck: Trachea midline. Neck supple. Cardiovascular: RRR. Intact distal pulses. Pulmonary/Chest: No respiratory distress. Breath sounds clear and equal bilaterally. No wheezes or rales. Abdominal: Abdomen soft, no tenderness, rebound or guarding. Musculoskeletal: No edema, tenderness or deformity noted. Skin: Warm and dry. No rash, erythema, pallor or cyanosis Psychiatric: Appropriate mood and affect for situation. Neurological: Alert and keenly responsive. Facies symmetric. Able to raise eyebrows, close eyes, smile, puff mouth, stick out tongue, move tongue left and right and raise palate symmetrically. Able to shrug shoulders. PERRLA. SILT to forehead below eye and at jawline. Can hear soft noise bilaterally. Good finger to nose. Strength 5/5 in bilateral upper and lower extremities. SILT throughout bilateral upper and lower extremities. MDM: - Vitals signs showed hypertension and tachycardia - History obtained via patient. History as above. - Chronic conditions affecting care: Afib; TAVR (on Xarelto); hypothyroidism; interstitial lung disease; Hodgkin's lymphoma - Differential diagnoses include, but are not limited to: Acute coronary syndrome; pulmonary embolism; dissection; tension pneumothorax; esophageal rupture; pneumonia; CVA; intracranial hemorrhage - Order placed for continuous cardiac monitoring. At this time, monitor showed rate of 85 bpm with normal sinus rhythm, per my interpretation. - External medical records reviewed. [facility] cardiology visit note dated 08/13/2023 was reviewed. Patient follows in their clinic status post TAVR for history of SVT. He underwent a TAVR on 05/03/2023. He has been going to cardiac rehab ever since. He has been having intermittent episodes at the end of his cardiac rehab sessions in which his heart rate spiked to the 160s 170s. - EKG interpreted by myself showed normal sinus rhythm. Rate 102 bpm. QT 350. No acute ischemic changes. - Laboratory workup interpreted by myself showed normal WBC; stable electrolytes; elevated troponin (29.8) - CXR negative for pneumonia, per my interpretation - Repeat troponin up-trending to 32.8 - CT head wo contrast negative for acute pathology - CTA head/neck with IV contrast showed concern for distal left vertebral artery opacification versus dissection. - Discussed case with neurologist reservoir engineering consultant, Dr. Grove, at 15:50. He believes findings are likely chronic. - Patient more moderate risk HEART score. Given his TIA symptoms and CTA findings, would also likely benefit from MRI of brain on inpatient setting. - Discussion was had with caser about patient's case and need for admission - Hospitalist consulted for admission - Patient admitted to [facility] hospitalist service for further evaluation and management. ASSESSMENT AND PLAN: Diagnosis: chest pain; left-sided headache; NSTEMI Plan: admit Past Med/Surg History Medical History Low blood pressure Arthritis Tachycardia Interstitial lung disease no inhaler Hypothyroidism Hodgkin disease diagnosed at age 27--had radiation and spleenectomy Sleep apnea cpap History of atrial fibrillation follows with Dr. Graves Surgical History History of esophagogastroduodenoscopy (EGD) History of tooth extraction History of left hip replacement History of anesthesia reaction woke up once during a colonoscopy History of colonoscopy History of lymph node biopsy malignant--hodgkin History of splenectomy History of cardiac cath 2015 no stents History of cardioversion History of cardiac radiofrequency ablation x2-- "treated for A-fib" Family History Other No family history of adverse response to anesthesia Social History Smoking Status: Former smoker Tobacco Type: Cigarettes Second Hand Exposure: Yes (as a child); Do You Dip or Chew Tobacco: No; Hx Alcohol Use: No Preferred Language: B[place]ian Communication Ability: Effective Window Installer Required: No Beliefs That Will Affect Care: None Current Living Situation: Spouse Feels Safe at Home: Yes Assistive Devices: Contacts, CPAP, Glasses and Walker Allergies Allergies Allergy/AdvReac Type Severity Reaction Status Date / Time No Known Allergies Allergy Verified 02/20/23 08:47 Home Meds Home Medications Medication Instructions Recorded Confirmed aspirin 81 mg tablet,delayed 81 mg PO QAM 11/16/18 02/20/23 release levothyroxine 75 mcg tablet 75 mcg PO QAM 11/16/18 02/20/23 cholecalciferol (vitamin D3) 25 1,000 unit PO QAM 05/07/19 02/20/23 mcg (1,000 unit) capsule (Vitamin D3) cyanocobalamin (vitamin B-12) 1,000 mcg PO QAM 05/07/19 02/20/23 1,000 mcg tablet (Vitamin B-12) metoprolol succinate 25 mg 12.5 mg PO BID 02/20/23 02/20/23 tablet,extended release 24 hr Results & Data (ED) Vital Signs Vital Signs - 24 hr 10/08/23 12:31 10/08/23 13:13 10/08/23 13:13 Temperature 36.8 C Temperature Source Temporal Artery Scan Pulse Rate 112 H 90 Pulse Rate from SpO2 Sensor Respiratory Rate 16 16 Respiratory Effort / Characteristics Non-Labored Spontaneous Respiratory Depth Normal Blood Pressure 151/89 H Blood Pressure Mean 109 Pulse Oximetry 90 98 Oxygen Delivery Method Room Air Room Air Room Air Sepsis Recent Fever Within 48 Hours No Sepsis New/Unexplained Change in Mental Status No Sepsis Action Taken by Nursing No Action Required 10/08/23 15:52 10/08/23 16:00 10/08/23 16:00 Temperature Temperature Source Pulse Rate 86 85 Pulse Rate from SpO2 Sensor 80 85 Respiratory Rate 21 Respiratory Effort / Characteristics Respiratory Depth Blood Pressure 135/75 Blood Pressure Mean 105 Pulse Oximetry 91 92 Oxygen Delivery Method Sepsis Recent Fever Within 48 Hours Sepsis New/Unexplained Change in Mental Status Sepsis Action Taken by Nursing Laboratory Data 10/08/23 13:00 10/08/23 13:00 Lab Results 10/08/23 10/08/23 Range/Units 13:00 15:13 WBC 7.16 (4.8-10.8) K/ul RBC 3.74 L (4.70-6.10) M/uL Hgb 12.7 L (14.0-18.0) g/dl Hct 38.4 L (42.0-52.0) % MCV 102.7 H (80.0-100.0) fL MCH 34.0 (25.0-34.0) pg MCHC 33.1 (32.0-36.0) g/dL RDW Std Deviation 60.9 H (36.4-46.3) fL RDW Coeff of Reza 16.1 H (11.5-14.5) % Plt Count 235 (130-400) K/uL MPV 11.9 (9.4-12.4) fL Immature Gran % (Auto) 0.3 % Neut % (Auto) 63.3 % Lymph % (Auto) 18.6 % [place] % (Auto) 13.8 % Eos % (Auto) 2.7 % Baso % (Auto) 1.3 % Neut # (Auto) 4.54 (1.40-6.50) K/uL Lymph # (Auto) 1.33 (1.20-3.40) K/uL [place] # (Auto) 0.99 H (0.11-0.59) K/uL Eos # (Auto) 0.19 (0.00-0.50) K/uL Baso # (Auto) 0.09 (0.00-0.20) K/uL Immature Gran # (Auto) 0.02 (0.01-0.20) K/uL PT 12.1 H (9.0-12.0) Seconds INR 1.1 (0.9-1.1) APTT 31 (21-31) Seconds PTT Ratio 1.1 Sodium 140 (136-145) mmol/L Potassium 4.2 (3.5-5.1) mmol/L Chloride 98 (98-107) mmol/L Carbon Dioxide 37 H (21-32) mmol/L Anion Gap 5 (3-11) BUN 12 (6-23) mg/dl Creatinine 0.62 (0.6-1.4) mg/dl Est Cr Clr Drug Dosing 97.6 ml/min Est GFR ( Amer) 113.3 ml/min Est GFR (Non-Af Amer) 97.7 ml/min BUN/Creatinine Ratio 19.4 (10-20) Glucose 101 H (70-99(Fasting)) mg/dl Calcium 9.7 (8.6-10.3) mg/dl Total Bilirubin 0.8 (0.2-1.0) mg/dl AST 25 (13-39) U/L ALT 16 (7-52) U/L Alkaline Phosphatase 80 (34-104) U/L Troponin I High Sens 29.8 H 32.8 H (0-20) pg/ml Total Protein 8.1 (6.0-8.3) gm/dl Albumin 4.0 (3.4-5.0) gm/dl Globulin 4.1 H (2.5-4.0) gm/dl Albumin/Globulin Ratio 1.0 (0.9-2) Administered Medications Discontinued Medications Acetaminophen (Ofirmev) 1,000 mg in 100 mls @ 400 mls/hr IV NOW STA Stop: 10/08/23 13:24 Last Infusion: 10/08/23 13:39 Dose: Infused Documented By: Admin: 10/08/23 13:26 Dose: 400 mls/hr Documented By: SRL Ioversol (Optiray 320 125ml) 115 ml IV ONCE ONE Stop: 10/08/23 14:42 Last Admin: 10/08/23 14:42 Dose: 115 ml Documented By: CRIS Imaging Data Radiologist's Impression: Chest X-Ray 10/08/23 12:34 XR chest 1V portable CLINICAL HISTORY: Chest pain, nonspecific COMPARISON STUDY: Chest radiograph November 27, 2021. FINDINGS: Incidental note is made of abdominal surgical clips and an aortic valvular prosthesis. Mild cardiomegaly is unchanged. There is no pneumothorax. No definite pleural effusions are present. Interstitial thickening is similar to prior exam. This may be chronic. No superimposed consolidation is present. IMPRESSION: No change in appearance of the chest. Stable cardiomegaly and interstitial thickening which may be chronic. Mild pulmonary edema could have this imaging appearance. ACT 112: Negative or not required by law. Electronically signed by: Costa Gilliam M.D. 10/08/2023 1:[address] 10/08/23 13:10 CT head/brain wo con CLINICAL HISTORY: 73 years-old Male with L sided headache; slurred speech. Acute strokelike symptoms TECHNIQUE: Multiple axial CT images of the head were obtained without contrast. A dose lowering technique was utilized adhering to the principles of ALARA. CT DOSE: 1034.63 mGy.cm COMPARISON: CTA head of same day, head CT 11/27/2021 FINDINGS: No acute intracranial hemorrhage, midline shift, intracranial mass, hydrocephalus, territorial ischemia or abnormal extra-axial collection. Involutional changes with chronic microvascular ischemic disease. The calvarium is intact. Minimal mucosal thickening of the ethmoid air cells. Leftward bowing and spurring of the nasal septum. The mastoid air cells are clear. Developmental incomplete bony fusion involves the posterior arch of C1. IMPRESSION: No acute intracranial abnormality. ACT 112: Negative or not required by law. The above report was generated using voice recognition software. It may contain grammatical, syntax or spelling errors. Electronically signed by: Adam Landa M.D. 10/08/2023 3:08 PM Head CTA 10/08/23 13:10 HEAD CTA HISTORY: L sided headache; slurred speech TECHNIQUE: Multiaxial CT images of the head were performed both before and after the intravenous administration of contrast to evaluate the major cerebral vessels. 3D/MIP images were also obtained. Sagittal and coronal reformats were reviewed. A dose lowering technique was utilized adhering to the principles of ALARA. COMPARISON: None. FINDINGS: There is no mass, hematoma, midline shift, or acute infarct. Visualized intracranial internal carotid arteries, distal right vertebral artery, and basilar artery are widely patent. The distal left vertebral artery is only faintly opacified at the level the C1. This is only partially imaged on this study but is suspicious for a left vertebral artery dissection. This is better appreciated on the same day neck CTA. There is no significant stenosis, occlusion, or aneurysm seen within the bilateral ACAs, MCAs, or manual equipment mechanic. Major dural venous sinuses are patent. IMPRESSION: 1. No significant stenosis, occlusion, or aneurysm within the [place]. 2. The distal left vertebral artery is only faintly opacified at the level the C1. This is only partially imaged on this study but is suspicious for a left vertebral artery dissection. This is better appreciated on the same day neck CTA. ACT 112: Negative or not required by law. Electronically signed by: Eladio Jacinto M.D. 10/08/2023 3:08 PM Neck CTA 10/08/23 13:10 CT ANGIOGRAPHY OF THE NECK WITH CONTRAST CLINICAL HISTORY: L sided headache; slurred speech COMPARISON STUDY: No previous studies for comparison. Technique: CT angiography of the carotid and vertebral arteries was obtained using Optiray and 3D reconstruction on an independent workstation. NASCET criteria was utilized. Automated exposure control was utilized for the study. A dose lowering technique was utilized adhering to the principles of ALARA. Findings: Scarring within the lung apices is incidentally noted. Mild loss of height of several cervical and thoracic vertebrae is likely chronic. There is no cervical lymphadenopathy. Metallic density within the right neck adjacent to the cervical portion of the right internal carotid artery is present. There is moderate plaque within the proximal bilateral internal carotid arteries. This results in mild stenosis of the proximal right internal carotid artery of approximately 30%. There is no significant stenosis of the cervical left internal carotid artery. The right vertebral artery is dominant and patent. Left vertebral artery is somewhat diminutive. Significantly diminished flow within the left vertebral artery is noted. Portions of the left vertebral artery appear occluded with distal reconstitution. These findings are age indeterminate. No aneurysm or dissection within the neck is present. IMPRESSION: 1. Moderate atherosclerotic plaque within the proximal bilateral internal carotid arteries. 30% stenosis of the proximal right internal carotid artery. No stenosis of the cervical left internal carotid artery. 2. Dominant, patent right vertebral artery. Diminutive left vertebral artery. Trace flow versus multifocal occlusion with distal reconstitution of the left vertebral artery. These findings are age indeterminate. ACT 112: Negative or not required by law. Electronically signed by: Costa Gilliam M.D. 10/08/2023 3:03 PM Discharge Plan Visit Data Chief Complaint: TIA Symptoms Stated Complaint: TIA YESTERDAY, CHEST PAINS ED Provider: Criss Hinson Discharge Problem: Chest pain, Non-ST elevation RI (NSTEMI), Left-sided headache Forms Stand Alone Forms: [facility] [employer] Prescriptions Prescriptions: No Action aspirin 81 mg Tablet,Delayed Release (Dr/Ec) 81 mg PO QAM levothyroxine 75 mcg tablet 75 mcg PO QAM Rx Instructions: TAKE BEFORE BREAKFAST cyanocobalamin (vitamin B-12) [Vitamin B-12] 1,000 mcg Tablet 1,000 mcg PO QAM cholecalciferol (vitamin D3) [Vitamin D3] 1,000 unit Capsule 1,000 unit PO QAM metoprolol succinate 25 mg Tablet Extended Release 24 Hr 12.5 mg PO BID Referrals Referrals: Jason Karimi DO [Primary Care Provider] -
[2023-10-08 13:24] LABS: Basophils # (auto) 0.09 K/uL (0.00-0.20); Basophils % (auto) 1.3 %; Eosinophils # (auto) 0.19 K/uL (0.00-0.50); Eosinophils % (auto) 2.7 %; Hematocrit (blood only) 38.4 % (42.0-52.0); Hemoglobin 12.7 g/dl (14.0-18.0); Immature Granulocytes # (auto) 0.02 K/uL (0.01-0.20); Immature Granulocytes % (auto) 0.3 %; Lymphocytes # (auto) 1.33 K/uL (1.20-3.40); Lymphocytes % (auto) 18.6 %; Mean Corpuscular Hgb Conc 33.1 g/dL (32.0-36.0); Mean Corpuscular Volume 102.7 fL (80.0-100.0); Mean Platelet Volume 11.9 fL (9.4-12.4); Monocytes # (auto) 0.99 K/uL (0.11-0.59); Monocytes % (auto) 13.8 %; Neutrophils # (auto) 4.54 K/uL (1.40-6.50); Neutrophils % (auto) 63.3 %; Platelet Count 235 K/uL (130-400); RDW Coefficient of Variation 16.1 % (11.5-14.5); RDW Standard Deviation 60.9 fL (36.4-46.3); Red Blood Count 3.74 M/uL (4.70-6.10); White Blood Count 7.16 K/ul (4.8-10.8)
--- NOTE | 2023-10-08 13:24 | XRay Report ---
XR chest 1V portable CLINICAL HISTORY: Chest pain, nonspecific COMPARISON STUDY: Chest radiograph November 27, 2021. FINDINGS: Incidental note is made of abdominal surgical clips and an aortic valvular prosthesis. Mild cardiomegaly is unchanged. There is no pneumothorax. No definite pleural effusions are present. Inte rstitial thickening is similar to prior exam. This may be chronic. No superimposed consolidation is p resent. IMPRESSION: No change in appearance of the chest. Stable cardiomegaly and interstitial thickening whi ch may be chronic. Mild pulmonary edema could have this imaging appearance. ACT 112: Negative or not required by law. Electronically signed by: Costa Gilliam M.D. 10/08/2023 1:22 PM
[2023-10-08] MEDS: ACETAMINOPHEN 1,000 MG/100 ML VIAL IV STA (13:26)
[2023-10-08 13:47] LABS: BUN Creatinine Ratio 19.4 (10-20); Bilirubin,Total 0.8 mg/dl (0.2-1.0); Calcium 9.7 mg/dl (8.6-10.3); Creatinine Clr Calc Pharmacy 97.6 ml/min; Est GFR (African American) 113.3 ml/min; Est GFR (Non-African American) 97.7 ml/min; Globulin 4.1 gm/dl (2.5-4.0); Potassium 4.2 mmol/L (3.5-5.1); Total Protein 8.1 gm/dl (6.0-8.3)
[2023-10-08 13:50] LABS: Troponin I High Sensitivity 29.8 pg/ml (0-20)
[2023-10-08 13:53] LABS: INR 1.1 (0.9-1.1); Partial Thromboplastin Ratio 1.1; Partial Thromboplastin Time 31 Seconds (21-31); Prothrombin Time 12.1 Seconds (9.0-12.0)
--- NOTE | 2023-10-08 14:39 | Electrocardiogram Report ---
Test Reason : Blood Pressure : / mmHG Vent. Rate : 102 BPM Atrial Rate : 102 BPM P-R Int : 200 ms QRS Dur : 080 ms QT Int : 350 ms P-R-T Axes : 083 024 043 degrees QTc Int : 456 ms Sinus tachycardia with Premature atrial complexes Septal infarct , age undetermined Abnormal ECG When compared with ECG of 27-NOV-2021 12:26, Premature atrial complexes are now Present Incomplete right bundle branch block is no longer Present Septal infarct is now Present Confirmed by Mark Bertrand ([id number]) on 10/08/2023 2:38:59 PM Referred By: Confirmed By:Mark Bertrand
[2023-10-08] MEDS: OPTIRAY 320 125ml IV ONE (14:42)
--- NOTE | 2023-10-08 15:04 | CT Scan Report ---
CT ANGIOGRAPHY OF THE NECK WITH CONTRAST CLINICAL HISTORY: L sided headache; slurred speech COMPARISON STUDY: No previous studies for comparison. Technique: CT angiography of the carotid and vertebral arteries was obtained using Optiray and 3D rec onstruction on an independent workstation. NASCET criteria was utilized. Automated exposure control was utilized for the study. A dose lowering technique was utilized adhering to the principles of ALA RA. Findings: Scarring within the lung apices is incidentally noted. Mild loss of height of several cervi milady and thoracic vertebrae is likely chronic. There is no cervical lymphadenopathy. Metallic density within the right neck adjacent to the cervical portion of the right internal carotid artery is presen t. There is moderate plaque within the proximal bilateral internal carotid arteries. This results in mild stenosis of the proximal right internal carotid artery of approximately 30%. There is no signifi cant stenosis of the cervical left internal carotid artery. The right vertebral artery is dominant an d patent. Left vertebral artery is somewhat diminutive. Significantly diminished flow within the left vertebral artery is noted. Portions of the left vertebral artery appear occluded with distal reconst itution. These findings are age indeterminate. No aneurysm or dissection within the neck is present. IMPRESSION: 1. Moderate atherosclerotic plaque within the proximal bilateral internal carotid arteries. 30% steno sis of the proximal right internal carotid artery. No stenosis of the cervical left internal carotid artery. 2. Dominant, patent right vertebral artery. Diminutive left vertebral artery. Trace flow versus multi focal occlusion with distal reconstitution of the left vertebral artery. These findings are age indet erminate. ACT 112: Negative or not required by law. Electronically signed by: Costa Gilliam M.D. 10/08/2023 3:03 PM
--- NOTE | 2023-10-08 15:10 | CT Scan Report ---
CT head/brain wo con CLINICAL HISTORY: 73 years-old Male with L sided headache; slurred speech. Acute strokelike symptoms TECHNIQUE: Multiple axial CT images of the head were obtained without contrast. A dose lowering tech nique was utilized adhering to the principles of ALARA. CT DOSE: 1034.63 mGy.cm COMPARISON: CTA head of same day, head CT 11/27/2021 FINDINGS: No acute intracranial hemorrhage, midline shift, intracranial mass, hydrocephalus, territorial ischem ia or abnormal extra-axial collection. Involutional changes with chronic microvascular ischemic disea se. The calvarium is intact. Minimal mucosal thickening of the ethmoid air cells. Leftward bowing and sp urring of the nasal septum. The mastoid air cells are clear. Developmental incomplete bony fusion inv olves the posterior arch of C1. IMPRESSION: No acute intracranial abnormality. ACT 112: Negative or not required by law. The above report was generated using voice recognition software. It may contain grammatical, syntax o r spelling errors. Electronically signed by: Adam Landa M.D. 10/08/2023 3:08 PM
--- NOTE | 2023-10-08 15:10 | CT Scan Report ---
HEAD CTA HISTORY: L sided headache; slurred speech TECHNIQUE: Multiaxial CT images of the head were performed both before and after the intravenous admi nistration of contrast to evaluate the major cerebral vessels. 3D/MIP images were also obtained. Sag ittal and coronal reformats were reviewed. A dose lowering technique was utilized adhering to the fina Jain. COMPARISON: None. FINDINGS: There is no mass, hematoma, midline shift, or acute infarct. Visualized intracranial internet sales manager al carotid arteries, distal right vertebral artery, and basilar artery are widely patent. The distal left vertebral artery is only faintly opacified at the level the C1. This is only partially imaged on this study but is suspicious for a left vertebral artery dissection. This is better appreciated on t he same day neck CTA. There is no significant stenosis, occlusion, or aneurysm seen within the bilate ral ACAs, MCAs, or train dispatcher. Major dural venous sinuses are patent. IMPRESSION: 1. No significant stenosis, occlusion, or aneurysm within the [place]. 2. The distal left vertebral artery is only faintly opacified at the level the C1. This is only parti ally imaged on this study but is suspicious for a left vertebral artery dissection. This is better ap preciated on the same day neck CTA. ACT 112: Negative or not required by law. Electronically signed by: Eladio Jacinto M.D. 10/08/2023 3:08 PM
--- NOTE | 2023-10-08 16:24 | History & Physical Report ---
Date of Service October 08, 2023 Assessment & Plan (1) Dysarthria: (2) Chest pain: (3) Elevated troponin: (4) Atrial fibrillation: Plan This is a 73-year-old male who has a significant past medical history of CAD, PAF, history of PSVT, history of TAVR, mitral valve stenosis, Raynaud's, myositis, interstitial lung disease, JULIUS, hypothyroidism, senile osteoporosis and history of Hodgkin's lymphoma who presents to ED after experiencing episodes of chest pain yesterday as well as word finding difficulty/slurred speech for 3 to 5 minutes yesterday. Dysarthria, stroke like sx Possible L vertebral artery dissection Admit to tele obtain MRI brain possible TIA vs stroke Dr. Sumner discussed with electronic publishing specialist neurologist, Dr. Lopez, who felt pt already on maximal medical therapy, with exception of addition of statin therapy Neurology felt admission not warranted for above finding; however he is also coming in with chest pain so we will complete the work up PT/OT/ST A1C, Lipid panel in a.m. --CT Head: No acute intracranial normalities --CTA h/N:. Moderate atherosclerotic plaque within the proximal bilateral internal carotid arteries. 30% stenosis of the proximal right internal carotid artery. No stenosis of the cervical left internal carotid artery.2. Dominant, patent right vertebral artery. Diminutive left vertebral artery. Trace flow versus multifocal occlusion with distal reconstitution of the left vertebral artery. These findings are age indeterminate. The distal left vertebral artery is only faintly opacified at the level the C1. This is only partially imaged on this study but is suspicious for a left vertebral artery dissection. This is better appreciated on the same day neck CTA. currently on ASA, Xarelto - will continue until images reviewed with neurology pt with recent outpt ZIO revealing afib, has been on xarelto x 1 week He will need outpatient neurology follow up Left sided chest pain CAD PAF, hx of PSVT S/P TAVR 04/2023 Mitral Valve Stenosis pt with 1 episode of left sided chest pain significant cardiac hx of nonobstructive CAD, symptomatic atrial fibrillation status post PVI 05/2017, atrial flutter status post tricuspid isthmus ablation 2013, history of TAVR April 2023, severe MR Will cycle troponins, obtain echo Currently chest pain-free, EKG without ischemic findings continue xarelto JULIUS on CPAP cpap at HS Hypothyroidism chronic, stable continue levothyroxine DVT ppx: Xarelto PCP: Dr. Pena FULL CODE Dispo: admit to tele, expected d/c tomorrow after work up complete Pt was seen and examined in collaboration with Dr. Sumner, please see addendum A total of 60 minutes was spent coordinating, documenting, and providing care for this patient excluding time spent in the performance of separately billed services. This included personally viewing all current laboratories and imaging studies, medication reconciliation, outpatient chart review, and discussion with specialists. History of Present Illness Chief Complaint: Chest pain yesterday; Word finding difficulty/slurred speech 3-5 minutes yesterday. Primary Care Provider: Jason Karimi DO This is a 73-year-old male who has a significant past medical history of CAD, PAF, history of PSVT, history of TAVR, mitral valve stenosis, Raynaud's, myositis, interstitial lung disease, JULIUS, hypothyroidism, senile osteoporosis and history of Hodgkin's lymphoma who presents to ED after experiencing episodes of chest pain yesterday as well as word finding difficulty/slurred speech for 3 to 5 minutes yesterday. is at bedside. Yesterday he experienced an episode prior to make dinner for approximately 3-5 minutes where he couldn't form a sentence and had word finding difficulty. He felt frustrated he couldn't speak. denies noticing facial droop or drooling. Pt felt dizzy during the event as well as off balance. He had a left sided headed. He denies any unilateral weakness. His sx resolved spontaneously and he not recurred. He also reports having one episode of Left sided chest pain. It happened early this afternoon and radiated to L shoulder. He described it as moderate. It lasted for a few hours and it has relieved mostly. It felt like a pressure, "someone pounded me." He has never experienced this before. He is fairly active at baseline. He walks the dog. He denies seeing chiropractor but does his own neck exercises. He usually does them in the morning. It involves stretching and isometrics. He denies feeling anything out of the ordinary during that time. He did feel his heart palpating with the chest pain. He denies URI sx, cough, f/c/s, syncope, n/v/d. He denies hx of bowel or bladder issues. He has been on xarelto for 1 week. His outpatient records were reviewed. He follows with cardiology at [facility]. He underwent TAVR in 05/03/2023. Since then he has been undergoing cardiac rehab. During cardiac rehab his heart rate would spike to 1 60-1 70 and he would feel lightheaded with an odd sensation in his chest. This was felt to be likely SVT. He also recently had a Zio patch which revealed A-fib. He initially was started on Eliquis but due to cost was converted over to Xarelto. Allergies Allergy/AdvReac Type Severity Reaction Status Date / Time No Known Allergies Allergy Verified 02/20/23 08:47 Home Medications Medication Instructions Recorded Confirmed Type aspirin 81 mg tablet,delayed 81 mg PO QAM 11/16/18 10/08/23 History release levothyroxine 75 mcg tablet 75 mcg PO QAM 11/16/18 10/08/23 History cholecalciferol (vitamin D3) 25 1,000 unit PO QAM 05/07/19 10/08/23 History mcg (1,000 unit) capsule (Vitamin D3) cyanocobalamin (vitamin B-12) 1,000 mcg PO QAM 05/07/19 10/08/23 History 1,000 mcg tablet (Vitamin B-12) rivaroxaban 20 mg tablet (Xarelto) 20 mg PO QPM 10/08/23 10/08/23 History Past Med/Surg History Medical History Low blood pressure Arthritis Tachycardia Interstitial lung disease no inhaler Hypothyroidism Hodgkin disease diagnosed at age 27--had radiation and spleenectomy Sleep apnea cpap History of atrial fibrillation follows with Dr. Graves Surgical History History of esophagogastroduodenoscopy (EGD) History of tooth extraction History of left hip replacement History of anesthesia reaction woke up once during a colonoscopy History of colonoscopy History of lymph node biopsy malignant--hodgkin History of splenectomy History of cardiac cath 2015 no stents History of cardioversion History of cardiac radiofrequency ablation x2--2013/2016 "treated for A-fib" Family History Other No family history of adverse response to anesthesia Social History Smoking Status: Former smoker Tobacco Type: Cigarettes Second Hand Exposure: Yes (as a child); Do You Dip or Chew Tobacco: No; Hx Alcohol Use: No Preferred Language: Vietnamese Communication Ability: Effective Labor Utilization Superintendent Required: No Beliefs That Will Affect Care: None Current Living Situation: Spouse Feels Safe at Home: Yes Assistive Devices: Contacts, CPAP, Glasses and Walker Review of Systems Review of Systems: All systems reviewed & are unremarkable except as noted in HPI & below Physical Exam Physical Exam: please refer to Dr. Sumner addendum for physical exam findings. Results & Data Results & Data Vital Signs (Past 12 Hours) Vital Signs Temp Pulse Resp BP Pulse Ox O2 Del Method 10/08/23 16:00 85 92 10/08/23 16:00 135/75 10/08/23 15:52 86 21 91 10/08/23 13:13 90 16 98 Room Air 10/08/23 13:13 Room Air 10/08/23 12:31 36.8 C 112 H 16 151/89 H 90 Room Air Diagnostic Findings Chest X-Ray 10/08/23 12:34 XR chest 1V portable CLINICAL HISTORY: Chest pain, nonspecific COMPARISON STUDY: Chest radiograph November 27, 2021. FINDINGS: Incidental note is made of abdominal surgical clips and an aortic valvular prosthesis. Mild cardiomegaly is unchanged. There is no pneumothorax. No definite pleural effusions are present. Interstitial thickening is similar to prior exam. This may be chronic. No superimposed consolidation is present. IMPRESSION: No change in appearance of the chest. Stable cardiomegaly and interstitial thickening which may be chronic. Mild pulmonary edema could have this imaging appearance. ACT 112: Negative or not required by law. Electronically signed by: Costa Gilliam M.D. 10/08/2023 1:[address] 10/08/23 13:10 CT head/brain wo con CLINICAL HISTORY: 73 years-old Male with L sided headache; slurred speech. Acute strokelike symptoms TECHNIQUE: Multiple axial CT images of the head were obtained without contrast. A dose lowering technique was utilized adhering to the principles of ALARA. CT DOSE: 1034.63 mGy.cm COMPARISON: CTA head of same day, head CT 11/27/2021 FINDINGS: No acute intracranial hemorrhage, midline shift, intracranial mass, hydrocephalus, territorial ischemia or abnormal extra-axial collection. Involutional changes with chronic microvascular ischemic disease. The calvarium is intact. Minimal mucosal thickening of the ethmoid air cells. Leftward bowing and spurring of the nasal septum. The mastoid air cells are clear. Developmental incomplete bony fusion involves the posterior arch of C1. IMPRESSION: No acute intracranial abnormality. ACT 112: Negative or not required by law. The above report was generated using voice recognition software. It may contain grammatical, syntax or spelling errors. Electronically signed by: Adam Landa M.D. 10/08/2023 3:08 PM Head CTA 10/08/23 13:10 HEAD CTA HISTORY: L sided headache; slurred speech TECHNIQUE: Multiaxial CT images of the head were performed both before and after the intravenous administration of contrast to evaluate the major cerebral vessels. 3D/MIP images were also obtained. Sagittal and coronal reformats were reviewed. A dose lowering technique was utilized adhering to the principles of ALARA. COMPARISON: None. FINDINGS: There is no mass, hematoma, midline shift, or acute infarct. Visualized intracranial internal carotid arteries, distal right vertebral artery, and basilar artery are widely patent. The distal left vertebral artery is only faintly opacified at the level the C1. This is only partially imaged on this study but is suspicious for a left vertebral artery dissection. This is better appreciated on the same day neck CTA. There is no significant stenosis, occlusion, or aneurysm seen within the bilateral ACAs, MCAs, or beam press operator. Major dural venous sinuses are patent. IMPRESSION: 1. No significant stenosis, occlusion, or aneurysm within the osage of Serrano. 2. The distal left vertebral artery is only faintly opacified at the level the C1. This is only partially imaged on this study but is suspicious for a left vertebral artery dissection. This is better appreciated on the same day neck CTA. ACT 112: Negative or not required by law. Electronically signed by: Eladio Jacinto M.D. 10/08/2023 3:08 PM Neck CTA 10/08/23 13:10 CT ANGIOGRAPHY OF THE NECK WITH CONTRAST CLINICAL HISTORY: L sided headache; slurred speech COMPARISON STUDY: No previous studies for comparison. Technique: CT angiography of the carotid and vertebral arteries was obtained using Optiray and 3D reconstruction on an independent workstation. NASCET criteria was utilized. Automated exposure control was utilized for the study. A dose lowering technique was utilized adhering to the principles of ALARA. Findings: Scarring within the lung apices is incidentally noted. Mild loss of height of several cervical and thoracic vertebrae is likely chronic. There is no cervical lymphadenopathy. Metallic density within the right neck adjacent to the cervical portion of the right internal carotid artery is present. There is moderate plaque within the proximal bilateral internal carotid arteries. This results in mild stenosis of the proximal right internal carotid artery of approximately 30%. There is no significant stenosis of the cervical left internal carotid artery. The right vertebral artery is dominant and patent. Left vertebral artery is somewhat diminutive. Significantly diminished flow within the left vertebral artery is noted. Portions of the left vertebral artery appear occluded with distal reconstitution. These findings are age indeterminate. No aneurysm or dissection within the neck is present. IMPRESSION: 1. Moderate atherosclerotic plaque within the proximal bilateral internal carotid arteries. 30% stenosis of the proximal right internal carotid artery. No stenosis of the cervical left internal carotid artery. 2. Dominant, patent right vertebral artery. Diminutive left vertebral artery. Trace flow versus multifocal occlusion with distal reconstitution of the left vertebral artery. These findings are age indeterminate. ACT 112: Negative or not required by law. Electronically signed by: Costa Gilliam M.D. 10/08/2023 3:03 PM Medications Administered Medication List Discontinued Medications Acetaminophen (Ofirmev) 1,000 mg in 100 mls @ 400 mls/hr IV NOW STA Stop: 10/08/23 13:24 Last Infusion: 10/08/23 13:39 Dose: Infused Documented By: Admin: 10/08/23 13:26 Dose: 400 mls/hr Documented By: SRL Ioversol (Optiray 320 125ml) 115 ml IV ONCE ONE Stop: 10/08/23 14:42 Last Admin: 10/08/23 14:42 Dose: 115 ml Documented By: JAR ECG Additional Comments: I have independently reviewed and interpreted patient's admitting EKG which revealed: Sinus tachycardia with ventricular rate of 102 bpm, PACs noted COVID-19 Results Results COVID-19 Adm Lab Results: RBC 3.74 M/uL (4.70-6.10) L 10/08/23 WBC 7.16 K/ul (4.8-10.8) 10/08/23 Hgb 12.7 g/dl (14.0-18.0) L 10/08/23 Hct 38.4 % (42.0-52.0) L 10/08/23 Plt Count 235 K/uL (130-400) 10/08/23 Neutrophils (%) (Auto) 63.3 % 10/08/23 Lymphocytes (%) (Auto) 18.6 % 10/08/23 Monocytes # (Auto) 0.99 K/uL (0.11-0.59) H 10/08/23 Eosinophils # (Auto) 0.19 K/uL (0.00-0.50) 10/08/23 Immature Granulocyte % (Auto) 0.3 % 10/08/23 Neutrophils # (Auto) 4.54 K/uL (1.40-6.50) 10/08/23 Lymphocytes # (Auto) 1.33 K/uL (1.20-3.40) 10/08/23 Monocytes # (Auto) 0.99 K/uL (0.11-0.59) H 10/08/23 Eosinophils # (Auto) 0.19 K/uL (0.00-0.50) 10/08/23 Basophils # (Auto) 0.09 K/uL (0.00-0.20) 10/08/23 Immature Granulocyte # (Auto) 0.02 K/uL (0.01-0.20) 4 Na 140 mmol/L (136-145) 10/08/23 K 4.2 mmol/L (3.5-5.1) 10/08/23 Cl 98 mmol/L (98-107) 10/08/23 CO2 37 mmol/L (21-32) H 10/08/23 Anion Gap 5 (3-11) 10/08/23 BUN 12 mg/dl (6-23) 10/08/23 Creatinine 0.62 mg/dl (0.6-1.4) 10/08/23 BUN/Creatinine Ratio 19.4 (10-20) 10/08/23 Glucose Level 101 mg/dl (70-99(Fasting)) H 10/08/23 Ca 9.7 mg/dl (8.6-10.3) 10/08/23 Total Bilirubin 0.8 mg/dl (0.2-1.0) 10/08/23 AST/SGOT 25 U/L (13-39) 10/08/23 ALT/SGPT 16 U/L (7-52) 10/08/23 Alkaline Phosphatase 80 U/L (34-104) 10/08/23 Total Protein 8.1 gm/dl (6.0-8.3) 10/08/23 Albumin 4.0 gm/dl (3.4-5.0) 10/08/23 Globulin 4.1 gm/dl (2.5-4.0) H 10/08/23 Albumin/Globulin Ratio 1.0 (0.9-2) 10/08/23 PTT 31 Seconds (21-31) 10/08/23 INR 1.1 (0.9-1.1) 10/08/23 Chest X-Ray 10/08/23 Code Status & VTE Plan Code Status FULL CODE Supervising Physician Co-Signing Physician Notes Patient is a 73-year-old male with possible history of A-fib on Xarelto, hypothyroidism, myositis, interstitial lung disease who presented to the ED after word finding difficulty and imbalance lasting 2 to 3 minutes yesterday afternoon. On presentation to the ED, his vitals were stable; he was saturating well on room air CBC, CMP unremarkable. Chest x-ray showed chronic interstitial thickening CTA head and neck revealed trace flow within the left vertebral artery; underlying dissection cannot be excluded. CT head did not show any acute findings On physical examination; Constitutional: Alert oriented x 3. Head: Normocephalic, Atraumatic Eyes: PERRL, conjunctivae normal, anicteric sclerae ENMT: external ear and nose normal, oropharynx normal Neck: trachea midline, no thyromegaly normal visual inspection Respiratory: normal respiratory effort, lungs clear to auscultation, no wheeze, rales, rhonchi. Normal insp/exp effort, no accessory muscle use Cardiovascular: RRR, no murmur, no edema Vessels: no JVD or carotid bruit Chest: normal inspection of chest Abdomen: normal bowel sounds, soft, nontender, no hepatosplenomegaly Musculoskeletal: no cyanosis or clubbing, extremities motor strength 5/5 Skin: no rashes, warm and dry normal turgor Neurologic: PERRL, EOMI, accommodation nl, no face palsy, no dysarthria CN's II- XI intact bilaterally and moves all extremities. finger-nose test, [id number] test normal. No focal neurological symptoms/sign present Psychiatric: A+Ox3, euthymic affect Assessment/plan Word-finding difficulty, imbalance Possible TIA Possible left vertebral artery dissection CTA findings were discussed with on-call neurology(Dr. Lopez) by me; patient is already on maximal medical treatmentno further evaluation is needed. Recommend follow-up as outpatient with neurology. He recommended to continue with Xarelto, aspirin. Lipitor 40 mg once a day is added. Continue telemonitoring Obtain echocardiogram. Patient also reports left-sided chest pain. He contacted his large animal husbandry technician Dr. Graves who recommended him to come to the ED. Will obtain cardiology evaluation I have reviewed the advanced practitioner's documentation, and I agree with, and take responsibility for the plan of care I spent a total of 30 minutes coordinating, documenting, and providing care for this patient excluding time spent in the performance of separately billed services. All of the aforementioned completed while collaborating with the assigned advanced practitioner for a full treatment plan Please note the above document was generated using voice recognition software. It may contain grammatical, syntax or spelling errors. Any formal questions or concerns about the content, text or information contained within the body of this dictation should be directly addressed to the provider for clarification
[2023-10-08] MEDS ORDERED: PHARMACIST DISCHARGE MED REC CONSULT PRN (20:56)
[2023-10-08] MEDS ORDERED: ONDANSETRON INJ 2 MG/ML 2 ML VIAL IV PRN (20:56)
[2023-10-08] MEDS ORDERED: POLYETHYLENE (MIRALAX) 17 GM PACK PO PRN (20:56)
[2023-10-08] MEDS ORDERED: ACETAMINOPHEN 325 MG TAB PO PRN (20:56)
[2023-10-08] MEDS ORDERED: ALUMINUM/MAGNESIUM SUSP 30 ML UDC PO PRN (20:56)
[2023-10-08] MEDS: GADOBUTROL 65ML VIAL IV ONE (21:04)
--- NOTE | 2023-10-08 21:26 | Magnetic Resonance Report ---
Exam(s): MRI HEAD W/WO Contrast IV Amt: 6.5CC GADAVIST EXAM: MR Head Without and With Intravenous Contrast CLINICAL HISTORY: Reason for exam: stroke like sx. TECHNIQUE: Magnetic resonance images of the head/brain without and with intravenous contrast in multiple planes. CONTRAST: Patient received 6.5CC GADAVIST of IV contrast COMPARISON: Head CT 10/08/2023 FINDINGS: Brain: Global parenchymal atrophy. No mass. No hemorrhage. No acute infarct. No abnormal enhancement Ventricles: Unremarkable. No ventriculomegaly. Bones/joints: Unremarkable. No acute fracture. Sinuses: Unremarkable as visualized. No acute sinusitis. Mastoid air cells: Unremarkable as visualized. No mastoid effusion. Orbits: Unremarkable as visualized. IMPRESSION: No acute intracranial abnormality. Electronically signed by: Andrey Nunez MD 10/08/23 21:25 PM
[2023-10-08] MEDS: RIVAROXABAN 20 MG TAB PO SCH (21:52)
--- OUTSIDE RECORDS SUMMARY | 2023-10-08 23:06 | External Medical Summary | Summary of Care ---
Author Name Unknown Organization [facility] Address [address] [place] [address] Phone [phone] Care Team Providers Care Pre Sales Network Engineer Name Role Phone Dewayne Pena MD Primary Care Provider [phone] Reason for Visit * Reason Comments Cardiac Rehab * Evaluate & Treat - Unlimited Visits (Within 30 days (routine)) - Authorized Specialty Diagnoses / Procedures Referred By Contac t Referred To Contact CARDIAC REHAB / Cardiology Diagnoses S/P TAVR (transcatheter aortic valve replacement) Status post cardiac surgery Jarrell, DO Camille [address] [place] [address] Referral ID Status Reason Start Date Expiration Date Visits Requested Visits Authorized [id number] Authorized Specialty Services Required 3 [phone] Encounter Details Date Type Department Care Team (Late st Contact Info) Description 09/03/2023 1:00 PM EDT Nurse Only Cardiac Rehab, [place] [address] [facility], Nurse Cardiac Rehab [address] [place] [address] Cardiac Rehab (/) Allergies No known active allergiesdocumented as of this encounter (statuses as of 09/06/2023) Medications Medication Sig Dispensed Refills Start Date End Date Status Cholecalciferol 25 MCG (1000 UT) Oral Capsule Take 1 Capsule by mouth in the morning. 0 Active CPAP every night at bedtime . Auto 5-20 cm 0 Active Turmeric Curcumin Oral Capsule Take by mouth 1 Capsule daily . 0 Active Aspirin 81 MG Oral Tablet Chewable Take 1 Tablet by mouth in the morning. 90 Tablet 3 03/07/2023 03/06/2024 Active Levothyroxine Sodium 75 MCG Oral Tablet (Levoxyl) (at least 30 min prior to breakfast or other meds) 90 Tablet 3 03/16/2023 Active Ocuvite Adult Formula Oral Capsule Take by mouth. 0 Active Amoxicillin 500 MG Oral Capsule (Amoxil) Take 4 capsules 1 hour prior to any dental work 4 Capsule 4 06/15/2023 Active Nac 600 600 MG Oral Capsule (Acetylcysteine) Take 1 Capsule by mouth in the morning and 1 Capsule before bedtime. 0 06/27/2023 Active documented as of this encounter (statuses as of 09/06/2023) Active Problems Problem Noted Date Diagnosed Date 1st degree AV block 05/05/2023 S/P TAVR (transcatheter aortic valve replacement ) 05/03/2023 BMI less than 19,adult 03/16/2023 Senile osteoporosis 09/28/2022 Protein-calorie malnutrition 07/07/2022 Neuromuscular disorder 07/07/2022 PHT (pulmonary hypertension) 06/02/2021 Hx of melanoma of skin 03/24/2021 Overview: Hx MM date 2013, Depth unknown, no SLN, Location R voodoo PSVT (paroxysmal supraventricular tachycardia) 0 12/15/2019 Raynaud's disease without gangrene 06/02/2019 Esophageal dysmotility 05/20/2019 JULIUS (obstructive sleep apnea) 05/20/2019 ILD (interstitial lung disease) 05/20/2019 Coronary artery disease invo lving [place] coronary artery of [place] heart without angina pectoris 03/24/2019 Nonrheumatic mitral valve stenosis 03/24/2019 H/O Hodgkin's lymphoma 07/05/2018 Acquired hypothyroidism 07/05/2018 documented as of this encounter (statuses as of 09/06/2023) Resolved Problems Problem Noted Date Diagnosed Date Resolved Date Osteoporotic fracture of left hip 09/28/2022 03/14/2023 Aortic root enlargement 07/07/2022 11/2 08/2022 Sinus tachycardia 03/16/2022 03/14/2023 Hx of nonmelanoma skin cancer 03/24/2021 05/14/2023 Overview: Hx MM date 2013, Depth unknown, no SLN, Location R voodoo (still no path in chart, pt confirmed that he had surgery for melanoma at that site and for BCC prior, see below) BCC R forehead 2008 ([facility]) Prediabetes 02/28/2021 02/01/2023 Overview: Per Prediabetes protocol Moderate protein malnutrition 12/15/2019 03/14/2023 Ankylosing spondylitis of cervical region 12/15/2019 07/07/2022 Moderate aortic stenosis 03/24/2019 H/O atrial fibrillation with out current medication 07/05/2018 03/14/2023 documented as of this encounter (statuses as of 09/06/2023) Immunizations Name Administration Dates Next Due COVID-19 mRNA, LNP-s, No Pre serve, 2-Dose Series (Moderna) 08/21/2020,07/17/2020 COVID-19, MRNA-LNP, 23-24, P F, 30 MCG/0.3 mL, 12 YRS AND ABOVE, IM ([place]-Comnat) 03/27/2023 COVID-19, mRNA, LNP-s, PF, B ooster, 100mcg/0.5mg (Moderna) 10/13/2021,04/13/2021 Covid-19, Mrna, Lnp-s, Pf, B ivalent, 30 Mcg, IM, 12 yrs and above (Pfizer) 11/09/2022,03/10/2022 PPD 12/29/2020,12/24/2018,12/03/2018 Pneumococcal Conjugate Vacc, 13 Valent (Prevnar) 11/08/2018 Pneumococcal Polysaccharide PPV23 (Pneumovax) 02/14/2021 RSV Vac., Bivalent, Perfusio n F, Pf,0.5 Ml (Abrysvo) 03/27/2023 Season Influenza, Quad, PF, Adjuvanted, 65+ Yrs, IM (FLUAD) 02/28/2020 Seasonal Influenza, PF, 6 M & above, IM , (FluLaval or Fluzone) 03/18/2018 Seasonal Influenza, Quadriva lent Hd (Fluzone Hd) 03/16/2023,04/07/2022,03/21/2021 Seasonal Influenza, Trivalen t, Adjuvanted, 65+ yrs 03/07/2019 TDAP (age 10 and older)(Boostrix) 07/07/2022,06/2011 Zoster Vaccine Recombinant (Shingrix) 08/30/2021 ,06/13/2019 documented as of this encounter Social History Tobacco Use Types Packs/Day Years Used Date Smoking Tobacco: Former Cigarettes 1 10 0 06/18/1967 - 06/18/1977 Smokeless Tobacco: Never Alcohol Use Standard Drinks/Week Comments No 0 (1 standard drink = 0.6 oz pur e alcohol) AUDIT-C Answer Date Recorded Frequency of Alcohol Consumption Never 07/05/2018 Average Number of Drinks Not on file 019 Frequency of Binge Drinking Not on file 06/18 PHQ-2 Answer Date Recorded PHQ Adult Total Score 0 03/06/2022 Hunger Vital Sign Answer Date Recorded Within the past 12 months, y ou worried that your food would run out before you got the money to buy more. Never true 05/09/20 23 Within the past 12 months, t he food you bought just didn't last and you didn't have money to get more. Never true 05/09/2023 Sex and Gender Information Value Date Recorded Sex Assigned at Male 09/26/2022 2:47 PM EDT Gender Identity Male 09/26/2022 2:47 PM EDT Sexual Orientation Straight 09/26/2022 2: 47 PM EDT Job Start Date Occupation Industry Not on file Not on file Not on file documented as of this encounter Last Filed Vital Signs Vital Sign Reading Time Taken Comments Blood Pressure 120/74 09/03/2023 1:59 PM EDT Pulse 80 09/03/2023 1:59 PM EDT Temperature - - Respiratory Rate - - Oxygen Saturation - - Inhaled Oxygen Concentration - - Weight 64.2 kg (141 lb 9.6 oz) 09/03/2023 1:59 P M EDT Height - - Body Mass Index 18.68 08/13/2023 9:33 AM EST documented in this encounter Functional Status Functional Status Response Date of Assess ment Do you have serious difficul ty walking or climbing stairs? (5 years old or older) No 05/04/2023 documented as of this encounter Nursing Notes * [place] morton RN - 09/03/2023 2:00 PM EDT Patient tolerated Cardiac Rehab exercise without difficulty. Pt did well no c/o cp or sob. One episode of SVT with a HR Of 163. Pt was minimally lightheaded. Very short period of 30 seconds. documented in this encounter Plan of Treatment Upcoming Encounters Date Type Department Care Team (Late st Contact Info) Description 09/14/2023 1:20 PM EDT Office Visit Family Practice [facility] [address] [place] [address] Dewayne Pena MD [address] [place] [address] 10/02/2023 1:40 PM EDT Office Visit Rheumatology [place] [address] [place] [address] Timo Guzman MD [facility] [place] [address] 04/15/2024 10:40 AM EDT Office Visit Dermatology [facility] [address] [place] [address] Jonnathan House PA-C [address] [place] [address] [phone] Health Maintenance Due Date Last Done Comments MENINGOCOCCAL (MENACTRA/MENVEO) (1 - Risk 2-dose series) 09/23/1952 Colonoscopy 1994 Fecal Occult Blood Test 1994 Sigmoidoscopy 1994 *BISPHONATE OR OTHER ACCEPTABLE MEDICATION NEEDED FOR OSTEOPOROSIS (REFER TO SMARTSET #1146) 09/30/2022 Depression Screening 03/06/2023 03/06/2022 TSH 01/06/2024 01/05/2023, 11/17, 10/13/2021, Additional history exists Cologuard 07/22/2024 07/22/2021, 06/19, 07/13/2021 Colorectal Cancer Screening 07/22/2024 DXA Scan 10/30/2024 10/30/2022 DTaP,Tdap,and Td Vaccines (3 - Td or Tdap) 07/07/2032 07/07/2022, 02/17/2012 AAA Screening Completed 12/11/2018 Pneumococcal Vaccine: 65+ Years Completed 02/14/2021, 11/08/2018 Zoster Vaccines Completed 08/30/2021, 06/13/2019 VITAMIN D LEVEL ONCE IN A LIFETIME-USE SMARTSET# 00620 Completed 11/03/2022, 11/20/2018 Influenza Vaccine (FLU shot) Completed , 04/07/2022, 03/21/2021, Additional history exists COVID-19 Vaccine Completed 03/27/2023, , 03/10/2022, Additional history exists GARDASIL-HPV IMMUNIZATION SERIES Aged Out No longer eligible based on patient's age to complete this topic Hepatitis B Aged Out No longer eligi ble based on patient's age to complete this topic documented as of this encounter Medical Devices Implanted Type Area Project Safety Manager Device Identifier Shelf Expiration Date Model / Serial / Lot Cath Thermodilution 6fr - [id number] Implanted:Qty: 1 on 03/07/2023 by Armando Beltran MD at [facility] [place] [employer]YN [id number] 10/10/2024 [id number] / / [id number] Valve Aortic Transcath Fx 34mm - [id number] Implanted:Qty: 1 on 05/03/2023 by Armando Beltran MD at [facility] [place] [employer] [id number] 08/10/2024 EVOLUTFX- 34 / [id number] / [id number] documented as of this encounter Procedures Procedure Name Priority Date/Time Associated Diagnosis Comments REFERRED TEST, OTHER,(LAB USE ONLY) Routine 08/31/2023 9:00 AM EDT Myopathy Oral phase dysphagia Peripheral polyneuropathy documented in this encounter Results * REFERRED TEST, OTHER,(LAB USE ONLY) (08/31/2023 9:00 AM EDT) External Lab Report See Scanned Report 09/06/2023 12:51 PM EDT GENERIC LAB Saliva Saliva specimen / Unknown 08/31/2023 9:00 AM EDT 09/05/2023 9:21 AM EDT Brenna Quinonez MS LAB BLOOD O RDERABLES GENERIC LAB documented in this encounter Visit Diagnoses Diagnosis S/P TAVR (transcatheter aortic valve replacement)- Primary Heart valve replaced by other means Myopathy Myopathy, unspecified Oral phase dysphagia Dysphagia, oral phase Peripheral polyneuropathy Unspecified hereditary and idiopathic peripheral neuropathy documented in this encounter Advance Directives Documents on File Type Date Recorded Patient Tobacco Sieve Operator Expl anation POLST 03/06/2022 [place] OR DERS FOR LIFE-SUSTAINING TREATMENT POLST 12/13/2021 [place] OR DERS FOR LIFE-SUSTAINING TREATMENT Latest Code Status on File Code Status Date Activated Date Inactivated Comments Full Code 05/03/2023 3:42 PM 05/05/2023 3:29 PM Thi s order reflects the patients wishes and were consensually agreed upon. Question Answer Comments Discussion of Advance Directives occurred with: Patient Code Status History Code Status Date Activated Date Inactivated Comments Full Code 04/11/2022 8:42 AM 04/11/2022 2:07 PM Question Answer Comments Discussion of Advance Direct lorenzo occurred with: Patient Full Code 04/11/2022 6:32 AM 04/11/2022 8:41 AM Question Answer Comments Discussion of Advance Direct lorenzo occurred with: Patient Care Teams Pre Sales Network Engineer Relationship Specialty Start Date End Date Dewayne Pena MD [address] [place] [address] PCP - General Family Medicine 04/30/23 documented as of this encounter
--- OUTSIDE RECORDS SUMMARY | 2023-10-08 23:06 | External Medical Summary | Summary of Care ---
Author Name Unknown Organization [facility] Address [address] [place] [address] Phone [phone] Care Team Providers Care Appliance Service Representative Name Role Phone Dewayne Pena MD Primary Care Provider [phone] Reason for Visit * Reason Onset Date Comments Test Results 09/13/2023 Encounter Details Date Type Department Care Team (Late st Contact Info) Description 09/13/2023 Telephone Cardiology [facility] [address] [place] [address] Denny Fuentes CRNP [address] [place] [address] Test Results Allergies No known active allergiesdocumented as of this encounter (statuses as of 09/14/2023) Medications Medication Sig Dispensed Refills Start Date [...] 1 Capsule before bedtime. 0 06/27/2023 Active Rivaroxaban 20 MG Oral Tablet (Xarelto)Indicati ons:PAF (paroxysmal atrial fibrillation) (HCC) Take 1 Tablet by mouth daily with dinner. 30 Tablet 11 09/14/2023 Active Apixaban 5 MG Oral Tablet (Eliquis) Take 1 Tablet by mouth in the morning and 1 Tablet before bedtime. 60 Tablet 11 09/13/2023 09/14/2023 Discontinued (Formulary/C ost) documented as of this encounter (statuses as of 09/14/2023) Active Problems Problem Noted Date Diagnosed Date Paroxysmal atrial fibrillation 09/14/2023 1st degree AV block 05/05/2023 S/P TAVR (transcatheter aortic valve replacement ) 05/03/2023 BMI less than 19,adult 03/16/2023 Senile osteoporosis 09/28/2022 Protein-calorie malnutrition 07/07/2022 Neuromuscular disorder 07/07/2022 PHT (pulmonary hypertension) 06/02/2021 Hx of melanoma of skin 03/24/2021 Overview: Hx MM date 2013, Depth unknown, no SLN, Location R bahai PSVT (paroxysmal supraventricular tachycardia) 0 12/15/2019 Raynaud's disease without gangrene 06/02/2019 Esophageal dysmotility 05/20/2019 JULIUS (obstructive sleep apnea) 05/20/2019 ILD (interstitial lung disease) 05/20/2019 Coronary artery disease invo lving [place] coronary artery of [place] heart without angina pectoris 03/24/2019 Nonrheumatic mitral valve stenosis 03/24/2019 H/O Hodgkin's lymphoma 07/05/2018 Acquired hypothyroidism 07/05/2018 documented as of this encounter (statuses as of 09/14/2023) Resolved Problems Problem Noted Date Diagnosed Date Resolved Date Osteoporotic fracture of left hip 09/28/2022 03/14/2023 Aortic root enlargement 07/07/2022 1108/2022 Sinus tachycardia 03/16/2022 03/14/2023 Hx of nonmelanoma skin cancer 03/24/2021 05/14/2023 Overview: Hx MM date 2013, Depth unknown, no SLN, Location R bahai (still no path in chart, pt confirmed that he had surgery for melanoma at that site and for BCC prior, see below) BCC R forehead 2008 ([facility]) Prediabetes 02/28/2021 02/01/2023 Overview: Per Prediabetes protocol Moderate protein malnutrition 12/15/2019 03/14/2023 Ankylosing spondylitis of cervical region 12/15/2019 07/07/2022 Moderate aortic stenosis 03/24/2019 H/O atrial fibrillation with out current medication 07/05/2018 03/14/2023 documented as of this encounter (statuses as of 09/14/2023) Immunizations Name Administration Dates Next Due COVID-19 mRNA, LNP-s, No Pre serve, 2-Dose Series (Moderna) 08/21/2020,07/17/2020 COVID-19, MRNA-LNP, 23-24, P F, 30 MCG/0.3 mL, 12 YRS AND ABOVE, IM (LaserGen-ComirnatZarfo) 03/27/2023 COVID-19, mRNA, LNP-s, PF, B ooster, [...] on file documented as of this encounter Functional Status Functional Status Response Date of Assess ment Do you have serious difficul ty walking or climbing stairs? (5 years old or older) No 05/04/2023 documented as of this encounter Miscellaneous Notes * Addendum Note - Enid Haque RP - 09/14/2023 3:33 PM EDTAddended by: ENID HAQUE on: 09/14/2023 03:33 PM Modules accepted: Orders * Telephone Encounter - Enid Haque RP - 09/14/2023 3:31 PM EDT Pharmacy called, xarelto is formulary preference. CRCL is 84 ml/min. Start xarelto 20 mg daily withbiggest meal. RX sent Enid Haque [facility], PharmD Clinical Pharmacist [facility] - Cardiology 09/14/2023, 3:31 PM * Telephone Encounter - Denny Fuentes CRNP - 09/13/2023 11:55 AM EDT Called with Zio results. Concern for PAF. Start Eliquis 5 mg BID and call with more AF events to consider further treatment documented in this encounter Plan of Treatment Upcoming Encounters Date Type Department Care Team (Late st Contact Info) Description 10/02/2023 1:40 PM EDT Office Visit Rheumatology [address] [place] [address] Timo Guzman MD [address] [place] [address] [place] [address] 03/21/2024 1:20 PM EDT Office Visit Family Practice [facility] [address] [facility] [place] [address] Dewayne Pena MD [address] [place] [address] 04/15/2024 10:40 AM EDT Office Visit Dermatology [facility] [address] [place] [phone] Jonnathan House PA-C [address] [place], [place] [phone] Health Maintenance Due Date Last Done Comments [...] D LEVEL ONCE IN A LIFETIME-USE SMARTSET# [id number] Completed 11/03/2022, 11/20/2018 Influenza Vaccine (FLU shot) [...] this encounter Medical Devices Implanted Type Area Career Agent Device Identifier Shelf Expiration Date Model / Serial / Lot Cath Thermodilution 6fr - [id number] Implanted:Qty: 1 on 03/07/2023 by Armando Beltran MD at [facility] [employer] [id number] 10/10/2024 [id number] / / [id number] Valve Aortic Transcath Fx 34mm - [id number] Implanted:Qty: 1 on 05/03/2023 by Armando Beltran MD at [facility] [employer] [id number] 08/10/2024 EVOLUTFX- 34 / [id number] / [id number] documented as of this encounter Visit Diagnoses Diagnosis PAF (paroxysmal atrial fibrillation) (HCC)- Primary Atrial fibrillation documented in this encounter Advance Directives Documents on File Type Date Recorded Patient Shoe Stock Associate Expl anation POLST 03/06/2022 [place] OR DERS FOR LIFE-SUSTAINING TREATMENT POLST 12/13/2021 [place] OR DERS FOR LIFE-SUSTAINING TREATMENT Latest Code [...] Direct lorenzo occurred with: Patient Care Teams Appliance Service Representative Relationship Specialty Start Date End Date Dewayne Pena MD [address] [facility] [place] [address] PCP - General Family Medicine 04/30/23 documented as of this encounter
--- OUTSIDE RECORDS SUMMARY | 2023-10-08 23:06 | External Medical Summary | Summary of Care ---
Author Name Unknown Organization [facility] Address [address] [place] [address] Phone [phone] Care Team Providers Care Reefer Engineer Name Role Phone Dewayne Pena MD Primary Care Provider [phone] Reason for Visit * Reason Onset Date Comments Test Results 09/13/2023 Encounter Details Date Type Department Care Team (Late st Contact Info) Description 09/13/2023 Telephone Cardiology [facility] [address] [place] [address] Denny Fuentes CRNP [address] [place] [address] Test Results Allergies No known active allergiesdocumented as of this encounter (statuses as of 09/13/2023) Medications Medication Sig Dispensed Refills Start Date [...] 1 Capsule before bedtime. 0 06/27/2023 Active Apixaban 5 MG Oral Tablet (Eliquis) Take 1 Tablet by mouth in the morning and 1 Tablet before bedtime. 60 Tablet 11 09/13/2023 Active documented as of this encounter (statuses as of 09/13/2023) Active Problems Problem Noted Date Diagnosed Date 1st degree AV block 05/05/2023 S/P TAVR (transcatheter aortic valve replacement ) 05/03/2023 BMI less than 19,adult 03/16/2023 Senile osteoporosis 09/28/2022 Protein-calorie malnutrition 07/07/2022 Neuromuscular disorder 07/07/2022 PHT (pulmonary hypertension) 06/02/2021 Hx of melanoma of skin 03/24/2021 Overview: Hx MM date 2013, Depth unknown, no SLN, Location R orthodox PSVT (paroxysmal supraventricular tachycardia) 0 12/15/2019 Raynaud's disease without gangrene 06/02/2019 Esophageal dysmotility 05/20/2019 JULIUS (obstructive sleep apnea) 05/20/2019 ILD (interstitial lung disease) 05/20/2019 Coronary artery disease invo lving [place] coronary artery of [place] heart without angina pectoris 03/24/2019 Nonrheumatic mitral valve stenosis 03/24/2019 H/O Hodgkin's lymphoma 07/05/2018 Acquired hypothyroidism 07/05/2018 documented as of this encounter (statuses as of 09/13/2023) Resolved Problems Problem Noted Date Diagnosed Date Resolved Date Osteoporotic fracture of left hip 09/28/2022 03/14/2023 Aortic root enlargement 07/07/2022 11/2 08/2022 Sinus tachycardia 03/16/2022 03/14/2023 Hx of nonmelanoma skin cancer 03/24/2021 05/14/2023 Overview: Hx MM date 2013, Depth unknown, no SLN, Location R orthodox (still no path in chart, pt confirmed that he had surgery for melanoma at that site and for BCC prior, see below) BCC R forehead 2008 ([facility]) Prediabetes 02/28/2021 02/01/2023 Overview: Per Prediabetes protocol Moderate protein malnutrition 12/15/2019 03/14/2023 Ankylosing spondylitis of cervical region 12/15/2019 07/07/2022 Moderate aortic stenosis 03/24/2019 H/O atrial fibrillation with out current medication 07/05/2018 03/14/2023 documented as of this encounter (statuses as of 09/13/2023) Immunizations Name Administration Dates Next Due COVID-19 mRNA, LNP-s, No Pre serve, 2-Dose Series (Moderna) 08/21/2020,07/17/2020 COVID-19, MRNA-LNP, 23-24, P F, 30 MCG/0.3 mL, 12 YRS AND ABOVE, IM (Wellogix-Comiratrium health cabarrusVuzix) 03/27/2023 COVID-19, mRNA, LNP-s, PF, B ooster, 100mcg/0.5mg (Moderna) 10/13/2021,04/13/2021 Covid-19, Mrna, Lnp-s, Pf, B ivalent, 30 Mcg, IM, 12 yrs and above (FiFully) 11/09/2022,03/10/2022 PPD 12/29/2020,12/24/2018,12/03/2018 Pneumococcal Conjugate Vacc, 13 [...] as of this encounter Miscellaneous Notes * Telephone Encounter - Denny Fuentes CRNP - 09/13/2023 11:55 AM EDT Called with Zio results. Concern for PAF. Start Eliquis 5 mg BID and call with more AF events to consider further treatment documented in this encounter Plan of Treatment Upcoming Encounters Date Type Department Care Team (Late st Contact Info) Description 09/14/2023 1:20 PM EDT Office Visit Family Practice [facility] [address] [place] [address] Dewayne Pena MD [address] [place] [address] 10/02/2023 1:40 PM EDT Office Visit Rheumatology [facility] [address] [facility] [place], [place] [address] Timo Guzman MD [address] [place] [address] 04/15/2024 10:40 AM EDT Office Visit Dermatology [facility] [address] [place] [address] Jonnathan House PA-C [address] [place] [address] Health Maintenance Due Date Last Done Comments [...] D LEVEL ONCE IN A LIFETIME-USE SMARTSET# [id number] Completed 11/03/2022, 11/20/2018 Influenza Vaccine (FLU shot) [...] this encounter Medical Devices Implanted Type Area Poultry Trimmer Device Identifier Shelf Expiration Date Model / Serial / Lot Cath Thermodilution 6fr - [id number] Implanted:Qty: 1 on 03/07/2023 by Armando Beltran MD at [facility] [employer] [id number] 10/10/2024 [id number] / / [id number] Valve Aortic Transcath Fx 34mm - [id number] Implanted:Qty: 1 on 05/03/2023 by Armando Beltran MD at [facility] [employer] [id number] 08/10/2024 EVOLUTFX- 34 / [id number] / [id number] documented as of this encounter Advance Directives Documents on File Type Date Recorded Patient Line Patroller Expl anation POLST 03/06/2022 [place] OR DERS FOR LIFE-SUSTAINING TREATMENT POLST 12/13/2021 [place] OR DERS FOR LIFE-SUSTAINING TREATMENT Latest Code [...] Direct lorenzo occurred with: Patient Care Teams Reefer Engineer Relationship Specialty Start Date End Date Dewayne Pena MD [address] [place] [address] PCP - General Family Medicine 04/30/23 documented as of this encounter
--- OUTSIDE RECORDS SUMMARY | 2023-10-08 23:06 | External Medical Summary | Summary of Care ---
Author Name Unknown Organization [facility] Address [address] [facility] [place] [address] Phone [phone] Care Team Providers Care Operations Team Leader Name Role Phone Dewayne Pena MD Primary Care Provider [phone] Reason for Visit * Reason Comments Follow Up Pt here for follow u p with Encounter Details Date Type Department Care Team (Late st Contact Info) Description 09/14/2023 1:20 PM EDT Office Visit Family [facility] [address] [place] [address] Dewayne Pena MD [address] [place] [phone] Paroxysmal atrial fibrillation (HCC)* Allergies No known active allergiesdocumented as of this encounter (statuses as of 09/16/2023) Medications Medication Sig Dispensed Refills Start Date [...] as of this encounter (statuses as of 09/16/2023) Active Problems Problem Noted Date Diagnosed Date Paroxysmal atrial fibrillation 09/14/2023 1st degree AV block 05/05/2023 S/P TAVR (transcatheter aortic valve replacement ) 05/03/2023 BMI less than 19,adult 03/16/2023 Senile osteoporosis 09/28/2022 Protein-calorie malnutrition 07/07/2022 Neuromuscular disorder 07/07/2022 PHT (pulmonary hypertension) 06/02/2021 Hx of melanoma of skin 03/24/2021 Overview: Hx MM date 2013, Depth unknown, no SLN, Location R latter-day PSVT (paroxysmal supraventricular tachycardia) 0 12/15/2019 Raynaud's disease without gangrene 06/02/2019 Esophageal dysmotility 05/20/2019 JULIUS (obstructive sleep apnea) 05/20/2019 ILD (interstitial lung disease) 05/20/2019 Coronary artery disease invo lving [place] coronary artery of [place] heart without angina pectoris 03/24/2019 Nonrheumatic mitral valve stenosis 03/24/2019 H/O Hodgkin's lymphoma 07/05/2018 Acquired hypothyroidism 07/05/2018 documented as of this encounter (statuses as of 09/16/2023) Resolved Problems Problem Noted Date Diagnosed Date Resolved Date Osteoporotic fracture of left hip 09/28/2022 03/14/2023 Aortic root enlargement 07/07/202204/19 Sinus tachycardia 03/16/2022 03/14/2023 Hx of nonmelanoma skin cancer 03/24/2021 05/14/2023 Overview: Hx MM date 2013, Depth unknown, no SLN, Location R latter-day (still no path in chart, pt confirmed that he had surgery for melanoma at that site and for BCC prior, see below) BCC R forehead 2008 ([facility]) Prediabetes 02/28/2021 02/01/2023 Overview: Per Prediabetes protocol Moderate protein malnutrition 12/15/2019 03/14/2023 Ankylosing spondylitis of cervical region 12/15/2019 07/07/2022 Moderate aortic stenosis 03/24/2019 H/O atrial fibrillation with out current medication 07/05/2018 03/14/2023 documented as of this encounter (statuses as of 09/16/2023) Immunizations Name Administration Dates Next Due COVID-19 mRNA, LNP-s, No Pre serve, 2-Dose Series (Moderna) 08/21/2020,07/17/2020 COVID-19, MRNA-LNP, 23-24, P F, 30 MCG/0.3 mL, 12 YRS AND ABOVE, IM ([employer]) 03/27/2023 COVID-19, mRNA, LNP-s, PF, B ooster, 100mcg/0.5mg (Moderna) 10/13/2021,04/13/2021 Covid-19, Mrna, Lnp-s, Pf, B ivalent, 30 Mcg, IM, 12 yrs and above (b-datum) 11/09/2022,03/10/2022 PPD 12/29/2020,12/24/2018,12/03/2018 Pneumococcal Conjugate Vacc, 13 [...] Sign Reading Time Taken Comments Blood Pressure 122/62 09/14/2023 1:11 PM EDT Pulse 62 09/14/2023 1:11 PM EDT irreg ular Temperature 36.2 C (97.2 F) 09/14/2023 1:11 PM ED T Respiratory Rate 18 09/14/2023 1:11 PM EDT Oxygen Saturation 100% 09/14/2023 1:11 PM EDT Inhaled Oxygen Concentration - - Weight 63 kg (139 lb) 09/14/2023 1:11 PM EDT Height 185.4 cm (6' 1") 09/14/2023 1:11 PM EDT Body Mass Index 18.34 09/14/2023 1:11 PM EDT documented in this encounter Functional Status Functional Status Response Date of Assess ment Do you have serious difficul ty walking or climbing stairs? (5 years old or older) No 05/04/2023 documented as of this encounter Progress Notes * Dewayne Pena MD - 09/16/2023 9:16 PM EDT SUBJECTIVE: Guido Daley is a 72 year old male. Chief Complaint Patient presents with Follow Up Pt here for follow up with HPI: Guido is a medically complex but overall stable 72 year old male who is here today with his .He was recently prescribed eliquis by cardiology and his has a list of questions about this medication that she would like me to answer for her today. I answered all questions to her satisfaction. As it turns out, Guido had been on eliquis years ago as well which I was not aware of until theend of the visit. Patient Active Problem List Diagnosis Code H/O Hodgkin's lymphoma Z85.71 Acquired hypothyroidism E03.9 Coronary artery disease involving [place] coronary artery of [place] heart without angina pectoris I25.10 Nonrheumatic mitral valve stenosis I34.2 Esophageal dysmotility K22.4 JULIUS (obstructive sleep apnea) G47.33 ILD (interstitial lung disease) ([facility]) J84.9 Raynaud's disease without gangrene I73.00 PSVT (paroxysmal supraventricular tachycardia) I47.10 Hx of melanoma of skin Z85.820 PHT (pulmonary hypertension) ([facility]) I27.20 Protein-calorie malnutrition ([facility]) E46 Neuromuscular disorder ([facility]) G70.9 Senile osteoporosis M81.0 BMI less than 19,adult Z68.1 S/P TAVR (transcatheter aortic valve replacement) Z95.2 1st degree AV block I44.0 Paroxysmal atrial fibrillation ([facility]) I48.0 Current Outpatient Medications Medication Sig Dispense Refill Cholecalciferol 25 MCG (1000 UT) Oral Capsule Take 1 Capsule by mouth in the morning. CPAP every night at bedtime . Auto 5-20 cm Turmeric Curcumin Oral Capsule Take by mouth 1 Capsule daily . Aspirin 81 MG Oral Tablet Chewable Take 1 Tablet by mouth in the morning. 90 Tablet 3 Levothyroxine Sodium 75 MCG Oral Tablet (Levoxyl) (at least 30 min prior to breakfast or other meds) 90 Tablet 3 Ocuvite Adult Formula Oral Capsule Take by mouth. Amoxicillin 500 MG Oral Capsule (Amoxil) Take 4 capsules 1 hour prior to any dental work 4 Capsule 4 Nac 600 600 MG Oral Capsule (Acetylcysteine) Take 1 Capsule by mouth in the morning and 1 Capsule before bedtime. Rivaroxaban 20 MG Oral Tablet (Xarelto) Take 1 Tablet by mouth daily with dinner. 30 Tablet 11 No current facility-administered medications for this visit. Allergy: Review of patient's allergies indicates: No Known Allergies OBJECTIVE: BP 122/62 | Pulse 62 Comment: irregular | Temp 36.2 C (97.2 F) (Tympanic) | Resp 18 | Ht 1.854 m (6' 1") | Wt 63 kg (139 lb) | SpO2 100% | BMI 18.34 kg/m | BSA 1.8 m General: alert, healthy, and no distress Lungs: chest symmetric with normal AP diameter, no chest deformities noted, no chest wall tenderness, lungs clear to auscultation Heart: regular rate & rhythm, no murmur, and no gallops ASSESSMENT AND PLAN: (I48.0) Paroxysmal atrial fibrillation (HCC) (primary encounter diagnosis) Plan: all questions answered to patient and his 's satisfaction; mgmt per cardiology Follow up as needed. No other complaints were offered at this time. Dewayne Pena MD documented in this encounter Nursing Notes * Shavonne Alas LPN - 09/14/2023 1:11 PM EDT The patient has been properly identified by confirmation of name and date of . Chief Complaint Patient presents with Follow Up Pt here for follow up with documented in this encounter Plan of Treatment Upcoming Encounters Date Type Department Care Team (Late st Contact Info) Description 10/02/2023 1:40 PM EDT Office Visit Rheumatology [facility] [address] [place] [address] Timo Guzman MD [address] [facility] [place] [address] 03/21/2024 1:20 PM EDT Office Visit Family Practice [facility] [address] [place] [address] Dewayne Pena MD [address] [place] [address] 04/15/2024 10:40 AM EDT Office Visit Dermatology [facility] [address] [place] [phone] Jonnathan House PA-C [address] [place] [id number] Health Maintenance Due Date Last Done Comments [...] D LEVEL ONCE IN A LIFETIME-USE SMARTSET# [id number] Completed 11/03/2022, 11/20/2018 Influenza Vaccine (FLU shot) [...] this encounter Medical Devices Implanted Type Area Web Content Executive Device Identifier Shelf Expiration Date Model / Serial / Lot Cath Thermodilution 6fr - [id number] Implanted:Qty: 1 on 03/07/2023 by Armando Beltran MD at [facility] [employer] [id number] 10/10/2024 [id number] / / [id number] Valve Aortic Transcath Fx 34mm - [id number] Implanted:Qty: 1 on 05/03/2023 by Armando Beltran MD at [facility] [employer] [id number] 08/10/2024 EVOLUTFX- 34 / [id number] / [id number] documented as of this encounter Visit Diagnoses Diagnosis Paroxysmal atrial fibrillation (HCC)- Primary Atrial fibrillation documented in this encounter Advance Directives Documents on File Type Date Recorded Patient 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
--- OUTSIDE RECORDS SUMMARY | 2023-10-08 23:06 | External Medical Summary | Summary of Care ---
Author Name Unknown Organization [facility] Address [address] [facility] [place] [address] Phone [phone] Care Team Providers Care Unhairing Machine Operator Name Role Phone Dewayne Pena MD Primary Care Provider [phone] Reason for Visit * Reason Onset Date Comments Precert In Process 09/27/2023 12 Radha Opt um Rx Medicare Eliquis 5mg tablets (reauth) Encounter Details Date Type Department Care Team (Late st Contact Info) Description 09/27/2023 Telephone Cardiology, [facility] [address] [place] [address] Blessing Coronel CRNP [address] [facility] [place] [address] Precert In Process (12 Radha Optum Rx Med... Allergies No known active allergiesdocumented as of this encounter (statuses as of 09/28/2023) Medications Medication Sig Dispensed Refills Start Date [...] the morning and 1 Tablet before bedtime. 180 Tablet 3 09/26/2023 Active documented as of this encounter (statuses as of 09/28/2023) Active Problems Problem Noted Date Diagnosed Date Paroxysmal atrial fibrillation 09/14/2023 1st degree AV block 05/05/2023 S/P TAVR (transcatheter aortic valve replacement ) 05/03/2023 BMI less than 19,adult 03/16/2023 Senile osteoporosis 09/28/2022 Protein-calorie malnutrition 07/07/2022 Neuromuscular disorder 07/07/2022 PHT (pulmonary hypertension) 06/02/2021 Hx of melanoma of skin 03/24/2021 Overview: Hx MM date 2013, Depth unknown, no SLN, Location R christian PSVT (paroxysmal supraventricular tachycardia) 0 12/15/2019 Raynaud's disease without gangrene 06/02/2019 Esophageal dysmotility 05/20/2019 JULIUS (obstructive sleep apnea) 05/20/2019 ILD (interstitial lung disease) 05/20/2019 Coronary artery disease invo lving [place] coronary artery of [place] heart without angina pectoris 03/24/2019 Nonrheumatic mitral valve stenosis 03/24/2019 H/O Hodgkin's lymphoma 07/05/2018 Acquired hypothyroidism 07/05/2018 documented as of this encounter (statuses as of 09/28/2023) Resolved Problems Problem Noted Date Diagnosed Date Resolved Date Osteoporotic fracture of left hip 09/28/2022 03/14/2023 Aortic root enlargement 07/07/202204/19 Sinus tachycardia 03/16/2022 03/14/2023 Hx of nonmelanoma skin cancer 03/24/2021 05/14/2023 Overview: Hx MM date 2013, Depth unknown, no SLN, Location R christian (still no path in chart, pt confirmed that he had surgery for melanoma at that site and for BCC prior, see below) BCC R forehead 2008 ([facility]) Prediabetes 02/28/2021 02/01/2023 Overview: Per Prediabetes protocol Moderate protein malnutrition 12/15/2019 03/14/2023 Ankylosing spondylitis of cervical region 12/15/2019 07/07/2022 Moderate aortic stenosis 03/24/2019 H/O atrial fibrillation with out current medication 07/05/2018 03/14/2023 documented as of this encounter (statuses as of 09/28/2023) Immunizations Name Administration Dates Next Due COVID-19 mRNA, LNP-s, No Pre serve, 2-Dose Series (Moderna) 08/21/2020,07/17/2020 COVID-19, MRNA-LNP, 23-24, P F, 30 MCG/0.3 mL, 12 YRS AND ABOVE, IM ([employer]) 03/27/2023 COVID-19, mRNA, LNP-s, PF, B ooster, [...] encounter Miscellaneous Notes * Telephone Encounter - Eren Luis RN - 09/27/2023 11:25 AM EDT Need pre-auth for this patient to take Eliquis 5 mg bid documented in this encounter Plan of Treatment Upcoming Encounters Date Type Department Care Team (Late st Contact Info) Description 10/02/2023 1:40 PM EDT Office Visit Rheumatology [place] [id number] [place] [address] Timo Guzman MD [facility] [place] [address] 12/24/2023 8:30 AM EDT Office Visit Cardiology, [facility] [address] [facility] [place] [address] Mike Graves, [address] [place] [address] 03/21/2024 1:20 PM EDT Office Visit [facility] [place] [address] Dewayne Pena MD [address] [facility] [place] [address] 04/15/2024 10:40 AM EDT Office Visit Dermatology [facility] [address] [place] [phone] Jonnathan House PA-C [address] [place] [address] Health Maintenance Due Date Last Done Comments [...] D LEVEL ONCE IN A LIFETIME-USE SMARTSET# [id number] Completed 11/03/2022, 11/20/2018 Influenza Vaccine (FLU shot) [...] this encounter Medical Devices Implanted Type Area Enrobing Machine Feeder Device Identifier Shelf Expiration Date Model / Serial / Lot Cath Thermodilution 6fr - [id number] Implanted:Qty: 1 on 03/07/2023 by Armando Beltran MD at [facility] [employer] [id number] 10/10/2024 [id number] / / [id number] Valve Aortic Transcath Fx 34mm - [id number] Implanted:Qty: 1 on 05/03/2023 by Armando Beltran MD at [facility] [employer] [id number] 08/10/2024 [employer]- 34 / [id number] / [id number] documented as of this encounter Advance Directives Documents on File Type Date Recorded 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
--- OUTSIDE RECORDS SUMMARY | 2023-10-08 23:06 | External Medical Summary | Summary of Care ---
Author Name Unknown Organization [facility] Address [address] [facility] [place] [place] [address] Phone [phone] Care Team Providers Care Scalp Specialist Name Role Phone Dewayne Pena MD Primary Care Provider [phone] [phone] Reason for Visit * Reason Comments Rheum Follow Up Follow up Encounter Details Date Type Department Care Team (Late st Contact Info) Description 10/02/2023 1:40 PM EDT Office Visit Rheumatology [place] [address] [employer] [place] [address] Timo Guzman MD [facility] [employer] [place] [address] ILD (interstitial lung disease) ([facility])*; Senile osteoporosis; Raynaud's disease without gangrene Allergies No known active allergiesdocumented as of this encounter (statuses as of 10/02/2023) Medications Medication Sig Dispensed Refills Start Date [...] in the morning. 90 Tablet 3 03/07/2023 4 Active Levothyroxine Sodium 75 MCG Oral Tablet (Levoxyl) (at least 30 min prior to breakfast or other meds) 90 Tablet 3 03/16/2023 Active Ocuvite Adult Formula Oral Capsule Take by mouth. 0 Active Amoxicillin 500 MG Oral Capsule (Amoxil) Take 4 capsules 1 hour prior to any dental work 4 Capsule 4 06/15/2023 Active Additional Information Patient not taking.Reported on 10/02/2023 Nac 600 600 MG Oral Capsule (Acetylcysteine) Take 1 Capsule by mouth in the morning and 1 Capsule before bedtime. 0 06/27/2023 Active Rivaroxaban 20 MG Oral Tablet (Xarelto) Take 1 Tablet by mouth daily with dinner. 90 Tablet 3 09/27/2023 Active Apixaban 5 MG Oral Tablet (Eliquis) Take 1 Tablet by mouth in the morning and 1 Tablet before bedtime. 180 Tablet 3 09/26/2023 Discontinue d(Medicatio n List Clean Up) documented as of this encounter (statuses as of 10/02/2023) Active Problems Problem Noted Date Diagnosed Date Paroxysmal atrial fibrillation 09/14/2023 1st degree AV block 05/05/2023 S/P TAVR (transcatheter aortic valve replacement ) 05/03/2023 BMI less than 19,adult 03/16/2023 Senile osteoporosis 09/28/2022 Protein-calorie malnutrition 07/07/2022 Neuromuscular disorder 07/07/2022 PHT (pulmonary hypertension) 06/02/2021 Hx of melanoma of skin 03/24/2021 Overview: Hx MM date 2013, Depth unknown, no SLN, Location R restorationist PSVT (paroxysmal supraventricular tachycardia) 0 12/15/2019 Raynaud's disease without gangrene 06/02/2019 Esophageal dysmotility 05/20/2019 JULIUS (obstructive sleep apnea) 05/20/2019 ILD (interstitial lung disease) 05/20/2019 Coronary artery disease invo lving [place] coronary artery of [place] heart without angina pectoris 03/24/2019 Nonrheumatic mitral valve stenosis 03/24/2019 H/O Hodgkin's lymphoma 07/05/2018 Acquired hypothyroidism 07/05/2018 documented as of this encounter (statuses as of 10/02/2023) Resolved Problems Problem Noted Date Diagnosed Date Resolved Date Osteoporotic fracture of left hip 09/28/2022 03/14/2023 Aortic root enlargement 07/07/2022 11/2 08/2022 Sinus tachycardia 03/16/2022 03/14/2023 Hx of nonmelanoma skin cancer 03/24/2021 05/14/2023 Overview: Hx MM date 2013, Depth unknown, no SLN, Location R restorationist (still no path in chart, pt confirmed that he had surgery for melanoma at that site and for BCC prior, see below) BCC R forehead 2008 ([facility]) Prediabetes 02/28/2021 02/01/2023 Overview: Per Prediabetes protocol Moderate protein malnutrition 12/15/2019 03/14/2023 Ankylosing spondylitis of cervical region 12/15/2019 07/07/2022 Moderate aortic stenosis 03/24/2019 H/O atrial fibrillation with out current medication 07/05/2018 03/14/2023 documented as of this encounter (statuses as of 10/02/2023) Immunizations Name Administration Dates Next Due COVID-19 mRNA, LNP-s, No Pre serve, 2-Dose Series (Moderna) 08/21/2020,07/17/2020 COVID-19, MRNA-LNP, 23-24, P F, 30 MCG/0.3 mL, 12 YRS AND ABOVE, IM (PFIZER-Comirnaty) 03/27/2023 COVID-19, mRNA, LNP-s, PF, B ooster, [...] 0 06/18/1967 - 06/18/1977 Smokeless Tobacco: Never Tobacco Cessation:Counseling Given: Not Answered Alcohol Use Standard Drinks/Week Comments No 0 [...] Sign Reading Time Taken Comments Blood Pressure - - Pulse - - Temperature 36.9 C (98.4 F) 10/02/2023 1:32 PM ED T Respiratory Rate - - Oxygen Saturation - - Inhaled Oxygen Concentration - - Weight 66.2 kg (146 lb) 10/02/2023 1:32 PM EDT Height - - Body Mass Index 19.26 09/14/2023 1:11 PM EDT documented in this encounter Functional Status Functional Status Response Date of Assess ment Do you have serious difficul ty walking or climbing stairs? (5 years old or older) No 05/04/2023 documented as of this encounter Progress Notes * Timo Guzman MD - 10/02/2023 1:37 PM EDT Subjective: Patient seen today for further follow up evaluation of osteoporosis, ILD, raynaud's. Since the lastvisit he did PT for his swallowing and that helped. No falls or fractures. Ended up not getting reclast. Was concerned about the side effects. Does have ongoing muscle weakness - mostly in his neck. No definite myopathy diagnosis. ? [employer]. Sees Dr Stein. Breathing has been better. Does not needto see pulmonology for 1 yr. Raynaud's has been stable. He does note some joint pains in his left knee, hip and finger joints. Does use some CBD creams for his hands which helped. He does have a neckbrace that he uses at times. Musculoskeletal ROS: . Abnormal: joint pain . Pain scale (0-10): 2 Other ROS: . Constitutional: normal . Head normal . Eyes: normal . Ears, nose, throat, mouth: normal . Cardiovascular: normal . Respiratory: normal . Gastrointestinal: normal . Genitourinary: normal . Skin: History of Raynaud's All other ROS reviewed and negative Social History: Social History Tobacco Use Smoking status: Former Current packs/day: 0.00 Average packs/day: 1 pack/day for 10.0 years (10.0 ttl pk-yrs) Types: Cigarettes Start date: 06/18/1967 Quit date: 06/18/1977 Years since quittin.3 Smokeless tobacco: Never Substance Use Topics Alcohol use: No Vaping/E-Cigarette Use Vaping/E-Cigarette Use Never User Vaping/E-Cigarette Substances Nicotine No Other No Flavoring No THC No Cannabidiol (CBD) No Vaping/E-Cigarette Devices Disposable No Pre-filled or Refillable Cartridge No Refillable Tank No Pre-filled Pod No Current Outpatient Medications Medication Sig Dispense Refill [...] Adult Formula Oral Capsule Take by mouth. Nac 600 600 MG Oral Capsule (Acetylcysteine) Take 1 Capsule by mouth in the morning and 1 Capsule before bedtime. Rivaroxaban 20 MG Oral Tablet (Xarelto) Take 1 Tablet by mouth daily with dinner. 90 Tablet 3 Amoxicillin 500 MG Oral Capsule (Amoxil) Take 4 capsules 1 hour prior to any dental work (Patient not taking: Reported on 10/02/2023) 4 Capsule 4 No current facility-administered medications for this visit. Physical Exam: Temp 36.9 C (98.4 F) (Infrared ) | Wt 66.2 kg (146 lb) | BMI 19.26 kg/m | BSA 1.85 m General: alert, no distress, and well nourished Neck: supple, no adenopathy, thyroid normal size, non-tender, without nodularity, thin - muscle wasting noted Lymph: no palpable lymphadenopathy Heart: no murmur, no gallops, and irregularly irregular Lungs: clear to auscultation , no rales, wheezes or rhonchi Abdomen: abdomen soft, non-tender, and normal bowel sounds Musculoskeletal Exam: Has to support his cervical spine with his hand more sitting upright. Good deltoid and hip flexor screen No thoracic kyphosis noted Assessment: (J84.9) ILD (interstitial lung disease) ([facility]) (primary encounter diagnosis) (M81.0) Senile osteoporosis (I73.00) Raynaud's disease without gangrene His interstitial lung disease and Raynaud's are stable. Some of his lung issues or likely related to aspiration which is better after PT for dysphagia. Raynaud's is overall stable. As for osteoporosis, he wishes not to have treatment at this time. Continues to follow with Neurology for his neuromuscular disorder which is undiagnosed. Plan: 1. Continue care with pulmonology, Neurology 2. Discussed patient safety and fall reduction 3. Will hold off on osteoporosis management at his request 4. Continue with conservative measures for Raynaud's and arthritis 5. Return to clinic 1 year Timo Guzman MD Department of Rheumatology documented in this encounter Nursing Notes * Kimmy Mccoy LPN - 10/02/2023 1:31 PM EDT Chief Complaint Patient presents with Rheum Follow Up Follow up documented in this encounter Plan of Treatment Upcoming Encounters Date Type Department Care Team (Late st Contact Info) Description 12/24/2023 8:30 AM EDT Office Visit Cardiology, [facility] [address] [place] [address] Mike Graves, [address] [place] [address] 03/21/2024 1:20 PM EDT Office Visit Family Practice [facility] [address] [place] [address] Dewayne Pena MD [address] [place] [address] 04/15/2024 10:40 AM EDT Office Visit Dermatology [facility] [address] [place] [phone] Jonnathan House PA-C [address] [place] [address] 10/07/2024 1:00 PM EDT Office Visit [address]umatology [address] [place] [address] Timo Guzman MD [address] [facility] [address] Health Maintenance Due Date Last Done Comments [...] D LEVEL ONCE IN A LIFETIME-USE SMARTSET# [id number] Completed 11/03/2022, 11/20/2018 Influenza Vaccine (FLU shot) [...] this encounter Medical Devices Implanted Type Area Supervisor Pastry Device Identifier Shelf Expiration Date Model / Serial / Lot Cath Thermodilution 6fr - [id number] Implanted:Qty: 1 on 03/07/2023 by Armando Beltran MD at [facility] [employer] KRISTYN [id number] 10/10/2024 [id number] / / [id number] Valve Aortic Transcath Fx 34mm - [id number] Implanted:Qty: 1 on 05/03/2023 by Armando Beltran MD at [facility] [employer] [id number] 08/10/2024 EVOLUTFX- 34 / [id number] / [id number] documented as of this encounter Visit Diagnoses Diagnosis ILD (interstitial lung disease) (HCC)- Primary Postinflammatory pulmonary fibrosis Senile osteoporosis Raynaud's disease without gangrene documented in this encounter Advance Directives Documents on File Type Date Recorded Patient Vice President Of Sales Expl anation POLST 03/06/2022 [place] OR DERS FOR LIFE-SUSTAINING TREATMENT POLST 12/13/2021 [place] OR DERS FOR LIFE-SUSTAINING TREATMENT Latest Code [...] Direct lorenzo occurred with: Patient Care Teams Scalp Specialist Relationship Specialty Start Date End Date Dewayne Pena MD [address] [facility] [place] [address] PCP - General Family Medicine 04/30/23 documented as of this encounter"
--- OUTSIDE RECORDS SUMMARY | 2023-10-08 23:06 | External Medical Summary | Summary of Care ---
Author Name Unknown Organization [facility] Address [address] [place] [address] Phone [phone] Care Team Providers Care Shield Runner Name Role Phone Dewayne Pena MD Primary Care Provider [phone] Reason for Visit * Reason Onset Date Comments Follow Up 09/06/2023 New Sample Requi red for Genetic Testing Encounter Details Date Type Department Care Team (Late st Contact Info) Description 09/06/2023 Telephone Neurology, [place] [address] [place] [address] Brenna Quinonez, [place] [address] [place] [address] Follow Up (New Sample Required for Genetic... Allergies No known active allergiesdocumented as of [...] 2013, Depth unknown, no SLN, Location R hindu PSVT (paroxysmal supraventricular tachycardia) 0 12/15/2019 Raynaud's disease without gangrene 06/02/2019 Esophageal dysmotility 05/20/2019 JULIUS (obstructive sleep apnea) 05/20/2019 ILD (interstitial lung disease) 05/20/2019 Coronary artery disease invo lving [place] coronary artery of [place] heart without angina pectoris 03/24/2019 Nonrheumatic mitral [...] 2013, Depth unknown, no SLN, Location R hindu (still no path in chart, pt confirmed that he had surgery for melanoma at that site and for BCC prior, see below) BCC R forehead 2008 ([facility]) Prediabetes 02/28/2021 02/01/2023 Overview: Per Prediabetes [...] MCG/0.3 mL, 12 YRS AND ABOVE, IM ([facility]) 03/27/2023 COVID-19, mRNA, LNP-s, PF, B ooster, 100mcg/0.5mg (Moderna) 10/13/2021,04/13/2021 Covid-19, Mrna, Lnp-s, Pf, B ivalent, 30 Mcg, IM, 12 yrs and above ([employer]) 11/09/2022,03/10/2022 PPD 12/29/2020,12/24/2018,12/03/2018 Pneumococcal Conjugate Vacc, 13 [...] encounter Miscellaneous Notes * Telephone Encounter - Srinivasa Pardo CHRA - 09/06/2023 9:33 AM EDT Called patient to inform them that their sample for genetic testing (Whole Exome Sequencing to [facility]) was received by the lab unlabeled, and they will need to submit a new sample to completetesting. Left a voicemail letting patient know a new sample collection kit will be coming in the mail and to make sure to write full name and date of on the sample collection tube. Provided call back number in case of questions. АНДРЕЙ [facility] [employer] [facility] [phone] documented in this encounter Plan of Treatment Upcoming Encounters Date Type Department Care Team (Late st Contact Info) Description 09/14/2023 1:20 PM EDT Office Visit [facility] [address] [facility] [place] [address] Dewayne Pena MD [address] [place] [address] 10/02/2023 1:40 PM EDT Office Visit Rheumatology [address] [place] [address] Timo Guzman MD [address] [place] [address] [place] [address] 04/15/2024 10:40 AM EDT Office Visit Dermatology [facility] [address] [place] [address] Jonnathan House PA-C [address] [place] [address] Health Maintenance Due Date Last Done Comments [...] D LEVEL ONCE IN A LIFETIME-USE SMARTSET# [id number] Completed 11/03/2022, 11/20/2018 Influenza Vaccine (FLU shot) [...] encounter Medical Devices Implanted Type Area Supervisor Building Maintenance Device Identifier Shelf Expiration Date Model / Serial / Lot Cath Thermodilution 6fr - [id number] Implanted:Qty: 1 on 03/07/2023 by rAmando Beltran MD at [facility] [employer] KRISTYN [id number] 10/10/2024 [id number] / / [id number] Valve Aortic Transcath Fx 34mm - [id number] Implanted:Qty: 1 on 05/03/2023 by Armando Beltran MD at [facility] [employer] [id number] 08/10/2024 EVOLUTFX- 34 / [id number] / [id number] documented as of this encounter Advance Directives Documents on File Type Date Recorded Patient [place]ier Guide Expl anation POLST 03/06/2022 [place] OR DERS FOR LIFE-SUSTAINING TREATMENT POLST 12/13/2021 [place] OR DERS FOR LIFE-SUSTAINING TREATMENT Latest Code [...] Direct lorenzo occurred with: Patient Care Teams Shield Runner Relationship Specialty Start Date End Date Dewayne Pena MD [address] [facility] [place] [address] PCP - General Family Medicine 04/30/23 documented as of this encounter
--- OUTSIDE RECORDS SUMMARY | 2023-10-08 23:06 | External Medical Summary | Summary of Care ---
Author Name Unknown Organization [facility] Address [address] [place] [address] Phone [phone] Care Team Providers Care Immunopathologist Name Role Phone Dewayne Pena MD Primary Care Provider [phone] Reason for Visit * Reason Comments Cardiac Rehab * Evaluate & Treat - Unlimited Visits (Within 30 days (routine)) - Authorized Specialty Diagnoses / Procedures Referred By Contac t Referred To Contact CARDIAC REHAB / Cardiology Diagnoses S/P TAVR (transcatheter aortic valve replacement) Status post cardiac surgery Jarrell, DO Cam[place] [address] [place] [address] Referral ID Status Reason Start Date Expiration Date Visits Requested Visits Authorized [id number] Authorized Specialty Services Required 3 [phone] Encounter Details Date Type Department Care Team (Late st Contact Info) Description 09/05/2023 10:00 AM EDT Nurse Only Cardiac Rehab, [place] [address] [facility], Nurse Cardiac Rehab [address] [place] [address] Cardiac Rehab Allergies No known active allergiesdocumented as of this encounter (statuses as of 09/05/2023) Medications Medication Sig Dispensed Refills Start Date [...] as of this encounter (statuses as of 09/05/2023) Active Problems Problem Noted Date Diagnosed Date 1st degree AV block 05/05/2023 S/P TAVR (transcatheter aortic valve replacement ) 05/03/2023 BMI less than 19,adult 03/16/2023 Senile osteoporosis 09/28/2022 Protein-calorie malnutrition 07/07/2022 Neuromuscular disorder 07/07/2022 PHT (pulmonary hypertension) 06/02/2021 Hx of melanoma of skin 03/24/2021 Overview: Hx MM date 2013, Depth unknown, no SLN, Location R islam PSVT (paroxysmal supraventricular tachycardia) 0 12/15/2019 Raynaud's disease without gangrene 06/02/2019 Esophageal dysmotility 05/20/2019 JULIUS (obstructive sleep apnea) 05/20/2019 ILD (interstitial lung disease) 05/20/2019 Coronary artery disease invo lving [place] coronary artery of [place] heart without angina pectoris 03/24/2019 Nonrheumatic mitral valve stenosis 03/24/2019 H/O Hodgkin's lymphoma 07/05/2018 Acquired hypothyroidism 07/05/2018 documented as of this encounter (statuses as of 09/05/2023) Resolved Problems Problem Noted Date Diagnosed Date Resolved Date Osteoporotic fracture of left hip 09/28/2022 03/14/2023 Aortic root enlargement 07/07/2022 11/2 08/2022 Sinus tachycardia 03/16/2022 03/14/2023 Hx of nonmelanoma skin cancer 03/24/2021 05/14/2023 Overview: Hx MM date 2013, Depth unknown, no SLN, Location R islam (still no path in chart, pt confirmed that he had surgery for melanoma at that site and for BCC prior, see below) BCC R forehead 2008 ([facility]) Prediabetes 02/28/2021 02/01/2023 Overview: Per Prediabetes protocol Moderate protein malnutrition 12/15/2019 03/14/2023 Ankylosing spondylitis of cervical region 12/15/2019 07/07/2022 Moderate aortic stenosis 03/24/2019 H/O atrial fibrillation with out current medication 07/05/2018 03/14/2023 documented as of this encounter (statuses as of 09/05/2023) Immunizations Name Administration Dates Next Due COVID-19 [...] Sign Reading Time Taken Comments Blood Pressure 102/60 09/05/2023 10:54 AM EDT Pulse - - Temperature - - Respiratory Rate - - Oxygen Saturation - - Inhaled Oxygen Concentration - - Weight 64 kg (141 lb) 09/05/2023 10:54 AM EDT Height - - Body Mass Index 18.6 08/13/2023 9:33 AM EST documented in this encounter Functional Status Functional Status Response Date of Assess ment Do you have serious difficul ty walking or climbing stairs? (5 years old or older) No 05/04/2023 documented as of this encounter Nursing Notes * Verona Rodriguez RN - 09/05/2023 10:54 AM EDT Pt participated in Cardiac Rehab today with no complications. Exercise regimen per protocol. Pt did exit interview six minute walk test, he was able to walk 1275 feet in six minutes, with a speed of 2.9mph and METS 2.85. On Initial assessment on 06/05/2024, pt waked 580 ft at speed 1.09 mph and accomplished 1.84 METS. Pt states he has noticed marked improvement. documented in this encounter Plan of Treatment Upcoming Encounters Date Type Department Care Team (Late st Contact Info) Description 09/14/2023 1:20 PM EDT Office Visit [facility] [place] [address] Dewayne Pena MD [address] [place] [address] 10/02/2023 1:40 PM EDT Office Visit Rheumatology [place] [address] [place] [address] Timo Guzman MD [facility] [place] [address] 04/15/2024 10:40 AM EDT Office Visit Dermatology [facility] [address] [place] [address] Jonnathan House PA-C [address] [place] [address] Health Maintenance Due Date Last Done Comments [...] D LEVEL ONCE IN A LIFETIME-USE SMARTSET# [id number] Completed 11/03/2022, 11/20/2018 Influenza Vaccine (FLU shot) [...] this encounter Medical Devices Implanted Type Area Methods Examiner Device Identifier Shelf Expiration Date Model / Serial / Lot Cath Thermodilution 6fr - [id number] Implanted:Qty: 1 on 03/07/2023 by Armando Beltran MD at [facility] [employer]STYN [id number] 10/10/2024 [id number] / / [id number] Valve Aortic Transcath Fx 34mm - [id number] Implanted:Qty: 1 on 05/03/2023 by Armando Beltran MD at [facility] [employer] [id number] 08/10/2024 EVOLUTFX- 34 / [id number] / [id number] documented as of this encounter Visit Diagnoses Diagnosis S/P TAVR (transcatheter aortic valve replacement)- Primary Heart valve replaced by other means documented in this encounter Advance Directives Documents on File Type Date Recorded Patient [place] Presser Expl anation POLST 03/06/2022 [place] OR DERS FOR LIFE-SUSTAINING TREATMENT POLST 12/13/2021 [place] OR DER FOR LIFE-SUSTAINING TREATMENT Latest Code Status on [...] Direct lorenzo occurred with: Patient Care Teams Immunopathologist Relationship Specialty Start Date End Date Dewayne Pena MD [address] [place] [address] PCP - General Family Medicine 04/30/23 documented as of this encounter
--- OUTSIDE RECORDS SUMMARY | 2023-10-08 23:06 | External Medical Summary | Summary of Care ---
Author Name Unknown Organization [facility] Address [address] [facility] [place] [address] Phone [phone] Care Team Providers Care Coal Washer Tender Name Role Phone Dewayne Pena MD Primary Care Provider [phone] [phone] Reason for Visit * Reason Onset Date Comments Precert Approved 09/27/2023 Eliquis 5mg tab lets (reauth) Encounter Details Date Type Department Care Team (Late st Contact Info) Description 09/27/2023 Telephone Cardiology, [facility] [address] [place] [address] Blessing Coronel CRNP [address] [place] [address] Precert Approved (Eliquis 5mg tablets (margarita... Allergies No known active allergiesdocumented as of this encounter (statuses as of 10/01/2023) Medications Medication Sig Dispensed Refills Start Date [...] as of this encounter (statuses as of 10/01/2023) Active Problems Problem Noted Date Diagnosed Date Paroxysmal atrial fibrillation 09/14/2023 1st degree AV block 05/05/2023 S/P TAVR (transcatheter aortic valve replacement ) 05/03/2023 BMI less than 19,adult 03/16/2023 Senile osteoporosis 09/28/2022 Protein-calorie malnutrition 07/07/2022 Neuromuscular disorder 07/07/2022 PHT (pulmonary hypertension) 06/02/2021 Hx of melanoma of skin 03/24/2021 Overview: Hx MM date 2013, Depth unknown, no SLN, Location R advent PSVT (paroxysmal supraventricular tachycardia) 0 12/15/2019 Raynaud's disease without gangrene 06/02/2019 Esophageal dysmotility 05/20/2019 JULIUS (obstructive sleep apnea) 05/20/2019 ILD (interstitial lung disease) 05/20/2019 Coronary artery disease invo lving [place] coronary artery of [place] heart without angina pectoris 03/24/2019 Nonrheumatic mitral valve stenosis 03/24/2019 H/O Hodgkin's lymphoma 07/05/2018 Acquired hypothyroidism 07/05/2018 documented as of this encounter (statuses as of 10/01/2023) Resolved Problems Problem Noted Date Diagnosed Date Resolved Date Osteoporotic fracture of left hip 09/28/2022 03/14/2023 Aortic root enlargement 07/07/2022 11/2 08/2022 Sinus tachycardia 03/16/2022 03/14/2023 Hx of nonmelanoma skin cancer 03/24/2021 05/14/2023 Overview: Hx MM date 2013, Depth unknown, no SLN, Location R advent (still no path in chart, pt confirmed that he had surgery for melanoma at that site and for BCC prior, see below) BCC R forehead 2008 ([facility]) Prediabetes 02/28/2021 02/01/2023 Overview: Per Prediabetes protocol Moderate protein malnutrition 12/15/2019 03/14/2023 Ankylosing spondylitis of cervical region 12/15/2019 07/07/2022 Moderate aortic stenosis 03/24/2019 H/O atrial fibrillation with out current medication 07/05/2018 03/14/2023 documented as of this encounter (statuses as of 10/01/2023) Immunizations Name Administration Dates Next Due COVID-19 mRNA, LNP-s, No Pre serve, 2-Dose Series (Moderna) 08/21/2020,07/17/2020 COVID-19, MRNA-LNP, 23-24, P F, 30 MCG/0.3 mL, 12 YRS AND ABOVE, IM ([employer]) 03/27/2023 COVID-19, mRNA, LNP-s, PF, B ooster, 100mcg/0.5mg (Moderna) 10/13/2021,04/13/2021 Covid-19, Mrna, Lnp-s, Pf, B ivalent, 30 Mcg, IM, 12 yrs and above ([employer]) 11/09/2022,03/10/2022 PPD 12/29/2020,12/24/2018,12/03/2018 Pneumococcal Conjugate Vacc, 13 [...] 10/02/2023 1:40 PM EDT Office Visit Rheumatology [place] [address] [place] [address] Timo Guzman MD [address] [place] [address] 12/24/2023 8:30 AM EDT Office Visit Cardiology, [facility] [address] [facility] [place] [address] Mike Graves DO 132 [facility] [place] [address] 03/21/2024 1:20 PM EDT Office Visit Family Practice [facility] [address] [facility] [place] [address] Dewayne Pena MD 132 [facility] [place] [address] 04/15/2024 10:40 AM EDT Office Visit Dermatology [facility] [address] [place] [address] Jonnathan House PA-C [address] [place] [address] Health Maintenance Due Date Last Done Comments [...] D LEVEL ONCE IN A LIFETIME-USE SMARTSET# [id number] Completed 11/03/2022, 11/20/2018 Influenza Vaccine (FLU shot) [...] this encounter Medical Devices Implanted Type Area Mat Machine Tender Device Identifier Shelf Expiration Date Model / Serial / Lot Cath Thermodilution 6fr - [id number] Implanted:Qty: 1 on 03/07/2023 by Armando Beltran MD at [facility] [place] [employer] [place] [id number] 10/10/2024 [id number] / / [id number] Valve Aortic Transcath Fx 34mm - [id number] Implanted:Qty: 1 on 05/03/2023 by Armando Beltran MD at [facility] [place] [employer] [id number] 08/10/2024 EVOLUTFX- 34 / [id number] / [id number] documented as of this encounter Advance Directives Documents on File Type Date Recorded Patient Presser Cotton Ginning Expl anation POLST 03/06/2022 [place] OR DERS FOR LIFE-SUSTAINING TREATMENT POLST 12/13/2021 [place] OR DERS FOR LIFE-SUSTAINING TREATMENT Latest Code [...] Direct lorenzo occurred with: Patient Care Teams Coal Washer Tender Relationship Specialty Start Date End Date Dewayne Pena MD [address] [place] [address] PCP - General Family Medicine 04/30/23 documented as of this encounter
--- OUTSIDE RECORDS SUMMARY | 2023-10-08 23:06 | External Medical Summary | Summary of Care ---
Author Name Unknown Organization [facility] Address [address] [place] [address] Phone [phone] Care Team Providers Care Emergency Dispatcher Name Role Phone Dewayne Pena MD Primary Care Provider [phone] Reason for Visit * Reason Onset Date Comments Follow Up 09/06/2023 New Sample Requi red for Genetic Testing Encounter Details Date Type Department Care Team (Late st Contact Info) Description 09/06/2023 Telephone Neurology, [place] [address] [place] [address] Brenna Quinonez, MS [address] [place] [address] Follow Up (New Sample Required [...] disease) 05/20/2019 Coronary artery disease invo lving [place] coronary artery of [place] heart without angina pectoris 03/24/2019 Nonrheumatic mitral [...] prior, see below) BCC R forehead 2008 ([facility]) Prediabetes 02/28/2021 02/01/2023 Overview: Per Prediabetes [...] MCG/0.3 mL, 12 YRS AND ABOVE, IM ([facility]) 03/27/2023 COVID-19, mRNA, LNP-s, PF, B ooster, 100mcg/0.5mg (Moderna) 10/13/2021,04/13/2021 Covid-19, Mrna, Lnp-s, Pf, B ivalent, 30 Mcg, IM, 12 yrs and above ([employer]) 11/09/2022,03/10/2022 PPD 12/29/2020,12/24/2018,12/03/2018 Pneumococcal Conjugate Vacc, 13 [...] for genetic testing (Whole Exome Sequencing to [employer]) was received by the lab unlabeled, and they will need to submit a new sample to completetesting. Left a voicemail letting patient know a new sample collection kit will be coming in the mail and to make sure to write full name and date of on the sample collection tube. Provided call back number in case of questions. АНДРЕЙ [facility] [phone] documented in this encounter Plan of Treatment Upcoming Encounters Date Type Department Care Team (Late st Contact Info) Description 09/14/2023 1:20 PM EDT Office Visit [facility] [address] [facility] [place] [address] Dewayne Pena MD [address] [place] [address] 10/02/2023 1:40 PM EDT Office Visit Rheumatology [address] [place] [address] Timo Guzman MD [address] [place] [address] [place] [address] 04/15/2024 10:40 AM EDT Office Visit Dermatology [facility] [address] [place] [address] Jonnathan House PA-C [address] [place] [address] Health Maintenance Due Date Last Done Comments [...] D LEVEL ONCE IN A LIFETIME-USE SMARTSET# [id number] Completed 11/03/2022, 11/20/2018 Influenza Vaccine (FLU shot) [...] encounter Medical Devices Implanted Type Area Web Services Developer Device Identifier Shelf Expiration Date Model / Serial / Lot Cath Thermodilution 6fr - [id number] Implanted:Qty: 1 on 03/07/2023 by Armando Beltran MD [place] [facility] [employer] [place]STYN [id number] 10/10/2024 [id number] / / [id number] Valve Aortic Transcath Fx 34mm - [id number] Implanted:Qty: 1 on 05/03/2023 by Armando Beltran MD [place] [facility] [employer] [id number] 08/10/2024 EVOLUTFX- 34 / [id number] / [id number] documented as of this encounter Advance Directives Documents on File Type Date Recorded Patient Community Reinvestment Act Officer Expl anation POLST 03/06/2022 [place] OR DERS FOR LIFE-SUSTAINING TREATMENT POLST 12/13/2021 [place] OR DERS FOR LIFE-SUSTAINING TREATMENT Latest Code [...] Direct lorenzo occurred with: Patient Care Teams Emergency Dispatcher Relationship Specialty Start Date End Date Dewayne Pena MD 132 [facility] [place] [address] PCP - General Family Medicine 04/30/23 documented as of this encounter
--- OUTSIDE RECORDS SUMMARY | 2023-10-08 23:06 | External Medical Summary | Summary of Care ---
Author Name Unknown Organization [facility] Address [address] [place] [address] Phone [phone] Care Team Providers Care Spun Paste Machine Operator Name Role Phone Dewayne Pena MD Primary Care Provider [phone] Reason for Visit * Reason Onset Date Comments Test Results 09/13/2023 Medication Question 09/13/2023 Encounter Details Date Type Department Care Team (Late st Contact Info) Description 09/13/2023 Telephone Cardiology [facility] [address] [place] [address] Denny Fuentes CRNP [address] [place], [place] [id number] Test Results; Medication Question Allergies No known active allergiesdocumented as of this encounter (statuses as of 09/27/2023) Medications Medication Sig Dispensed Refills Start Date [...] Active Nac 600 600 MG Oral Capsule (Acetylcysteine ) Take 1 Capsule by mouth in the morning and 1 Capsule before bedtime. 0 06/27/2023 Active Apixaban 5 MG Oral Tablet (Eliquis) Take 1 Tablet by mouth in the morning and 1 Tablet before bedtime. 60 Tablet 11 09/13/2023 4 Discontinued(Form ulary/Cost) Rivaroxaban 20 MG Oral Tablet (Xarelto)Indica tions:PAF (paroxysmal atrial fibrillation) (HCC) Take 1 Tablet by mouth daily with dinner. 30 Tablet 11 09/14/2023 4 Discontinued documented as of this encounter (statuses as of 09/27/2023) Active Problems Problem Noted Date Diagnosed Date Paroxysmal atrial fibrillation 09/14/2023 1st degree AV block 05/05/2023 S/P TAVR (transcatheter aortic valve replacement ) 05/03/2023 BMI less than 19,adult 03/16/2023 Senile osteoporosis 09/28/2022 Protein-calorie malnutrition 07/07/2022 Neuromuscular disorder 07/07/2022 PHT (pulmonary hypertension) 06/02/2021 Hx of melanoma of skin 03/24/2021 Overview: Hx MM date 2013, Depth unknown, no SLN, Location R sabianist PSVT (paroxysmal supraventricular tachycardia) 0 12/15/2019 Raynaud's disease without gangrene 06/02/2019 Esophageal dysmotility 05/20/2019 JULIUS (obstructive sleep apnea) 05/20/2019 ILD (interstitial lung disease) 05/20/2019 Coronary artery disease invo lving [place] coronary artery of [place] heart without angina pectoris 03/24/2019 Nonrheumatic mitral valve stenosis 03/24/2019 H/O Hodgkin's lymphoma 07/05/2018 Acquired hypothyroidism 07/05/2018 documented as of this encounter (statuses as of 09/27/2023) Resolved Problems Problem Noted Date Diagnosed Date Resolved Date Osteoporotic fracture of left hip 09/28/2022 03/14/2023 Aortic root enlargement 07/07/2022 11/2 08/2022 Sinus tachycardia 03/16/2022 03/14/2023 Hx of nonmelanoma skin cancer 03/24/2021 05/14/2023 Overview: Hx MM date 2013, Depth unknown, no SLN, Location R sabianist (still no path in chart, pt confirmed that he had surgery for melanoma at that site and for BCC prior, see below) BCC R forehead 2008 ([facility]) Prediabetes 02/28/2021 02/01/2023 Overview: Per Prediabetes protocol Moderate protein malnutrition 12/15/2019 03/14/2023 Ankylosing spondylitis of cervical region 12/15/2019 07/07/2022 Moderate aortic stenosis 03/24/2019 H/O atrial fibrillation with out current medication 07/05/2018 03/14/2023 documented as of this encounter (statuses as of 09/27/2023) Immunizations Name Administration Dates Next Due COVID-19 mRNA, LNP-s, No Pre serve, 2-Dose Series (Moderna) 08/21/2020,07/17/2020 COVID-19, MRNA-LNP, 23-24, P F, 30 MCG/0.3 mL, 12 YRS AND ABOVE, IM ([employer]) 03/27/2023 COVID-19, mRNA, LNP-s, PF, B ooster, [...] Encounter - Eren Luis RN - 09/27/2023 11:07 AM EDT Is this patient going to be on the Xarelto or Eliquis. I got a fax from the patient's pharmacy stated he will need pre-auth for the Eliquis. * Addendum Note - Enid Haque RPh - 09/14/2023 3:33 PM EDTAddended by: ENID HAQUE on: 09/14/2023 03:33 PM Modules accepted: Orders * Telephone Encounter - Enid Haque RPh - 09/14/2023 3:31 PM EDT Pharmacy called, xarelto is formulary preference. CRCL is 84 ml/min. Start xarelto 20 mg daily withbiggest meal. RX sent Enid Haque [facility], PharmD Clinical Pharmacist [facility] - Cardiology 09/14/2023, 3:31 PM [...] 10/02/2023 1:40 PM EDT Office Visit Rheumatology [place] [id number] [facility] [place] [address] Timo Guzman MD [address] [place] [address] [place] [address] 12/24/2023 8:30 AM EDT Office Visit Cardiology, [facility] [address] [place] [address] Mike Graves DO [address] [place] [address] 03/21/2024 1:20 PM EDT Office Visit Family Practice [facility] [address] [place] [address] Dewayne Pena MD [address] [place] [address] 04/15/2024 10:40 AM EDT Office Visit Dermatology [facility] [address] [place] [address] Jonnathan House PA-C [address] [place] [address] Health Maintenance Due Date Last Done Comments [...] D LEVEL ONCE IN A LIFETIME-USE SMARTSET# [id number] Completed 11/03/2022, 11/20/2018 Influenza Vaccine (FLU shot) [...] this encounter Medical Devices Implanted Type Area English Language Learner Tutor Device Identifier Shelf Expiration Date Model / Serial / Lot Cath Thermodilution 6fr - [id number] Implanted:Qty: 1 on 03/07/2023 by Armando Beltran MD at [facility] [employer] [place]YN [id number] 10/10/2024 [id number] / / [id number] Valve Aortic Transcath Fx 34mm - [id number] Implanted:Qty: 1 on 05/03/2023 by Armando Beltran MD at [facility] [employer] [id number] 08/10/2024 EVOLUTFX- 34 / [id number] / [id number] documented as of this encounter Visit Diagnoses Diagnosis PAF (paroxysmal atrial fibrillation) (HCC)- Primary Atrial fibrillation documented in this encounter Advance Directives Documents on File Type Date Recorded Patient In Service Educator Expl anation POLST 03/06/2022 [place] OR DERS FOR LIFE-SUSTAINING TREATMENT POLST 12/13/2021 [place] OR DERS FOR LIFE-SUSTAINING TREATMENT Latest Code [...] Direct lorenzo occurred with: Patient Care Teams Spun Paste Machine Operator Relationship Specialty Start Date End Date Dewayne Pena MD [address] [address] PCP - General Family Medicine 04/30/23 documented as of this encounter
--- OUTSIDE RECORDS SUMMARY | 2023-10-08 23:06 | External Medical Summary | Summary of Care ---
Author Name Unknown Organization [facility] Address [address] [place] [address] Phone [phone] Care Team Providers Care Service Technician Name Role Phone Dewayne Pena MD Primary Care Provider [phone] Reason for Visit * Reason Comments Cardiac Rehab * Evaluate & Treat - Unlimited Visits (Within 30 days (routine)) - Authorized Specialty Diagnoses / Procedures Referred By Contac t Referred To Contact CARDIAC REHAB / Cardiology Diagnoses S/P TAVR (transcatheter aortic valve replacement) Status post cardiac surgery Jarrell, DO Camille [address] [place] [address] Referral ID Status Reason Start Date Expiration Date Visits Requested Visits Authorized [id number] Authorized Specialty Services Required 3 [phone] Encounter Details Date Type Department Care Team (Late st Contact Info) Description 09/03/2023 1:00 PM EDT Nurse Only Cardiac Rehab, [place] [address] [facility], Nurse Cardiac Rehab [address] [place] [address] Cardiac Rehab (/) Allergies No known active [...] 2013, Depth unknown, no SLN, Location R baptist PSVT (paroxysmal supraventricular tachycardia) 0 12/15/2019 Raynaud's disease without gangrene 06/02/2019 Esophageal dysmotility 05/20/2019 JULIUS (obstructive sleep apnea) 05/20/2019 ILD (interstitial lung disease) 05/20/2019 Coronary artery disease invo lving [place] coronary artery of [place] heart without angina pectoris 03/24/2019 Nonrheumatic mitral [...] 2013, Depth unknown, no SLN, Location R baptist (still no path in chart, pt confirmed that he had surgery for melanoma at that site and for BCC prior, see below) BCC R forehead 2008 ([facility]) Prediabetes 02/28/2021 02/01/2023 Overview: Per [...] MCG/0.3 mL, 12 YRS AND ABOVE, IM ([employer]) 03/27/2023 COVID-19, mRNA, LNP-s, PF, B ooster, [...] as of this encounter Nursing Notes * [place]ida morton RN - 09/03/2023 2:00 PM EDT [...] 1:20 PM EDT Office Visit Family Practice [facility] [address] [place] [address] Dewayne Pena MD [address] [place] [address] 10/02/2023 1:40 PM EDT Office Visit Rheumatology [place] [address] [place] [address] Timo Guzman MD [facility] [place] [address] 04/15/2024 10:40 AM EDT Office Visit Dermatology [facility] [address] [place] [address] Jonnathan House PA-C [address] [place] [phone] Pending Results Name Type Priority Associated Diagnoses Date /Time REFERRED TEST, OTHER,(LAB USE ONLY) Lab Routine Myopathy Oral phase dysphagia Peripheral polyneuropathy 08/31/2023 9:00 AM EDT Health Maintenance Due Date Last Done Comments [...] D LEVEL ONCE IN A LIFETIME-USE SMARTSET# [id number] Completed 11/03/2022, 11/20/2018 Influenza Vaccine (FLU shot) [...] this encounter Medical Devices Implanted Type Area Loan Approver Device Identifier Shelf Expiration Date Model / Serial / Lot Cath Thermodilution 6fr - [id number] Implanted:Qty: 1 on 03/07/2023 by Armando Beltran MD at [facility] [place] [employer]STYN [id number] 10/10/2024 [id number] / / [id number] Valve Aortic Transcath Fx 34mm - [id number] Implanted:Qty: 1 on 05/03/2023 by Armando Beltran MD at [facility] [place] [employer] [id number] 08/10/2024 EVOLUTFX- 34 / [id number] / [id number] documented as of this encounter Visit Diagnoses Diagnosis S/P TAVR (transcatheter aortic valve replacement)- Primary Heart valve replaced by other means Myopathy Myopathy, unspecified Oral phase dysphagia Dysphagia, oral phase Peripheral polyneuropathy Unspecified hereditary and idiopathic peripheral neuropathy documented in this encounter Advance Directives Documents on File Type Date Recorded Patient Jigger Machine Operator Expl anation POLST 03/06/2022 [place] OR DERS FOR LIFE-SUSTAINING TREATMENT POLST 12/13/2021 [place] OR DERS FOR LIFE-SUSTAINING TREATMENT Latest Code [...] Direct lorenzo occurred with: Patient Care Teams Service Technician Relationship Specialty Start Date End Date Dewayne Pena MD 132 [facility] [place] [address] PCP - General Family Medicine 04/30/23 documented as of this encounter
--- OUTSIDE RECORDS SUMMARY | 2023-10-08 23:07 | External Medical Summary | Summary of Care ---
Author Name Unknown Organization [facility] Address [address] [address] Phone [phone] Care Team Providers Care Plastic Surgery Technician Name Role Phone Dewayne Pena MD Primary Care Provider [phone] Reason for Visit * Reason Onset Date Comments Information 08/21/2023 Encounter Details Date Type Department Care Team (Late st Contact Info) Description 08/21/2023 Telephone Pulmonary Medicine, [facility] [address] [place] [address] Cara Brantley, [address] [place] [address] Information Allergies No known active allergiesdocumented as of this encounter (statuses as of 08/28/2023) Medications Medication Sig Dispensed Refills Start Date [...] as of this encounter (statuses as of 08/28/2023) Active Problems Problem Noted Date Diagnosed Date 1st degree AV block 05/05/2023 S/P TAVR (transcatheter aortic valve replacement ) 05/03/2023 BMI less than 19,adult 03/16/2023 Senile osteoporosis 09/28/2022 Protein-calorie malnutrition 07/07/2022 Neuromuscular disorder 07/07/2022 PHT (pulmonary hypertension) 06/02/2021 Hx of melanoma of skin 03/24/2021 Overview: Hx MM date 2013, Depth unknown, no SLN, Location R sabianism PSVT (paroxysmal supraventricular tachycardia) 0 12/15/2019 Raynaud's disease without gangrene 06/02/2019 Esophageal dysmotility 05/20/2019 JULIUS (obstructive sleep apnea) 05/20/2019 ILD (interstitial lung disease) 05/20/2019 Coronary artery disease invo lving [place] coronary artery of [place] heart without angina pectoris 03/24/2019 Nonrheumatic mitral valve stenosis 03/24/2019 H/O Hodgkin's lymphoma 07/05/2018 Acquired hypothyroidism 07/05/2018 documented as of this encounter (statuses as of 08/28/2023) Resolved Problems Problem Noted Date Diagnosed Date Resolved Date Osteoporotic fracture of left hip 09/28/2022 03/14/2023 Aortic root enlargement 07/07/2022 11/2 08/2022 Sinus tachycardia 03/16/2022 03/14/2023 Hx of nonmelanoma skin cancer 03/24/2021 05/14/2023 Overview: Hx MM date 2013, Depth unknown, no SLN, Location R sabianism (still no path in chart, pt confirmed that he had surgery for melanoma at that site and for BCC prior, see below) BCC R forehead 2008 ([facility]) Prediabetes 02/28/2021 02/01/2023 Overview: Per Prediabetes protocol Moderate protein malnutrition 12/15/2019 03/14/2023 Ankylosing spondylitis of cervical region 12/15/2019 07/07/2022 Moderate aortic stenosis 03/24/2019 H/O atrial fibrillation with out current medication 07/05/2018 03/14/2023 documented as of this encounter (statuses as of 08/28/2023) Immunizations Name Administration Dates Next Due COVID-19 [...] encounter Miscellaneous Notes * Telephone Encounter - Lyudmila Jimenez salesperson men's hats - 08/28/2023 12:39 PM EDT Pietro from [employer] calling in regards to previous message. Made aware fax was sent over today. Pietro verbalized understanding and [employer] did receive fax. Thank you, Lyudmila Jimenez, Offset Lithographic Press Setter [facility] ([facility] (Formerly [facility]) 08/28/2023,12:40 PM * Telephone Encounter - Shala Gracia LPN - 08/27/2023 9:56 AM EDT Notes and CMN have been faxed to [employer] * Telephone Encounter - Cara Brantley DO - 08/27/2023 9:22 AM EDT CMN signed. Please send office visit note from 07/09/23. * Telephone Encounter - Liberty Whitfield OSA - 08/21/2023 2:30 PM EST [facility] [employer] contacted me. They stated that they sent over request for update prescription for cpapsupplies on August 16. They also need office notes. I made them aware that Provider is out next week and will be back on Sunday. documented in this encounter Plan of Treatment Upcoming Encounters Date Type Department Care Team (Late st Contact Info) Description 08/29/2023 11:30 AM EDT Nurse Only Cardiac Rehab, [address] [address] [facility], Nurse Cardiac Rehab [address] [place] [address] 08/31/2023 11:30 AM EDT Nurse Only Cardiac Rehab, [address] [address] [facility], Nurse Cardiac Rehab [address] [place] [address] 09/14/2023 1:20 PM EDT Office Visit Family Practice [facility] [address] [place] [address] Dewayne Pena MD [address] [place] [address] 10/02/2023 1:40 PM EDT Office Visit Rheumatology [place] [address] [facility] [place] [address] Timo Guzman MD [address] [place] [address] [place] [address] 04/15/2024 10:40 AM EDT Office Visit Dermatology [facility] [address] [place] [address] Jonnathan House PA-C [address] [place] [address] Health Maintenance Due Date Last Done Comments [...] D LEVEL ONCE IN A LIFETIME-USE SMARTSET# 91076 Completed 11/03/2022, 11/20/2018 Influenza Vaccine (FLU shot) [...] this encounter Medical Devices Implanted Type Area Pets Salesperson Device Identifier Shelf Expiration Date Model / Serial / Lot Cath Thermodilution 6fr - [id number] Implanted:Qty: 1 on 03/07/2023 by Armando Beltran MD at [facility] [employer] KRISTYN [id number] 10/10/2024 [id number] / / [id number] Valve Aortic Transcath Fx 34mm - [id number] Implanted:Qty: 1 on 05/03/2023 by Armando Beltran MD at [facility] [employer] [id number] 08/10/2024 EVOLUTFX- 34 / [id number] / [id number] documented as of this encounter Advance Directives Documents on File Type Date Recorded Patient Communications Electrician Supervisor Expl anation POLST 03/06/2022 [place] OR DERS FOR LIFE-SUSTAINING TREATMENT POLST 12/13/2021 [place] OR DERS FOR LIFE-SUSTAINING TREATMENT Latest Code [...] Direct lorenzo occurred with: Patient Care Teams Plastic Surgery Technician Relationship Specialty Start Date End Date Dewayne Pena MD [address] [facility] [place] [address] PCP - General Family Medicine 04/30/23 documented as of this encounter
--- OUTSIDE RECORDS SUMMARY | 2023-10-08 23:07 | External Medical Summary ---
Author Name Unknown Address Unknown Organization : Laboratory Report Ordering Provider Test Date Status CURTIS RESENDIZ 08/31/2023 09:00:00 Final Room temperature
Preferr ed using Cold [employer] Sample Submission Kit Observation Date Value Abnormality Reference (Units ) Status REFERENCE LAB SCANNED REPORT 08/31/2023 09:00:00 See Scanned Report Final Performing Location
--- OUTSIDE RECORDS SUMMARY | 2023-10-08 23:07 | External Medical Summary | Summary of Care ---
Author Name Unknown Organization [facility] Address [address] [place] [address] Phone [phone] Care Team Providers Care Magician Helper Name Role Phone Dewayne Pena MD Primary Care Provider [phone] Reason for Visit * Reason Comments Cardiac Rehab * Evaluate & Treat - Unlimited Visits (Within 30 days (routine)) - Authorized Specialty Diagnoses / Procedures Referred By Contac t Referred To Contact CARDIAC REHAB / Cardiology Diagnoses S/P TAVR (transcatheter aortic valve replacement) Status post cardiac surgery Camille Vieyra DO [address] [place] [address] Referral ID Status Reason Start Date Expiration Date Visits Requested Visits Authorized [id number] Authorized Specialty Services Required 3 [phone] Encounter Details Date Type Department Care Team (Late st Contact Info) Description 08/22/2023 11:30 AM EST Nurse Only Cardiac Re[place], [place] [address] [facility], Nurse Cardiac Rehab [address] [place] [address] Cardiac Rehab Allergies No known active allergiesdocumented as of this encounter (statuses as of 08/22/2023) Medications Medication Sig Dispensed Refills Start Date [...] as of this encounter (statuses as of 08/22/2023) Active Problems Problem Noted Date Diagnosed Date 1st degree AV block 05/05/2023 S/P TAVR (transcatheter aortic valve replacement ) 05/03/2023 BMI less than 19,adult 03/16/2023 Senile osteoporosis 09/28/2022 Protein-calorie malnutrition 07/07/2022 Neuromuscular disorder 07/07/2022 PHT (pulmonary hypertension) 06/02/2021 Hx of melanoma of skin 03/24/2021 Overview: Hx MM date 2013, Depth unknown, no SLN, Location R mandaeism PSVT (paroxysmal supraventricular tachycardia) 0 12/15/2019 Raynaud's disease without gangrene 06/02/2019 Esophageal dysmotility 05/20/2019 JULIUS (obstructive sleep apnea) 05/20/2019 ILD (interstitial lung disease) 05/20/2019 Coronary artery disease invo lving [place] coronary artery of [place] heart without angina pectoris 03/24/2019 Nonrheumatic mitral valve stenosis 03/24/2019 H/O Hodgkin's lymphoma 07/05/2018 Acquired hypothyroidism 07/05/2018 documented as of this encounter (statuses as of 08/22/2023) Resolved Problems Problem Noted Date Diagnosed Date Resolved Date Osteoporotic fracture of left hip 09/28/2022 03/14/2023 Aortic root enlargement 07/07/2022 11/2 08/2022 Sinus tachycardia 03/16/2022 03/14/2023 Hx of nonmelanoma skin cancer 03/24/2021 05/14/2023 Overview: Hx MM date 2013, Depth unknown, no SLN, Location R mandaeism (still no path in chart, pt confirmed that he had surgery for melanoma at that site and for BCC prior, see below) BCC R forehead 2008 ([facility]) Prediabetes 02/28/2021 02/01/2023 Overview: Per Prediabetes protocol Moderate protein malnutrition 12/15/2019 03/14/2023 Ankylosing spondylitis of cervical region 12/15/2019 07/07/2022 Moderate aortic stenosis 03/24/2019 H/O atrial fibrillation with out current medication 07/05/2018 03/14/2023 documented as of this encounter (statuses as of 08/22/2023) Immunizations Name Administration Dates Next Due COVID-19 [...] Sign Reading Time Taken Comments Blood Pressure 122/60 08/22/2023 11:37 AM EST Pulse - - Temperature - - Respiratory Rate - - Oxygen Saturation - - Inhaled Oxygen Concentration - - Weight 63 kg (138 lb 14.4 oz) 08/22/2023 11:37 A M EST Height - - Body Mass Index 18.33 08/13/2023 9:33 AM EST documented in this encounter Functional Status Functional Status Response Date of Assess ment Do you have serious difficul ty walking or climbing stairs? (5 years old or older) No 05/04/2023 documented as of this encounter Nursing Notes * Verona Rodriguez RN - 08/22/2023 11:38 AM EST Patient tolerated Cardiac Rehab exercise without difficulty. One episode of SVT noted at rest during recovery, max heart rate 138. Pt states a little lightheadedness as only symptom. For [facility] tomorrow. documented in this encounter Plan of Treatment Upcoming Encounters Date Type Department Care Team (Late st Contact Info) Description 08/23/2023 1:30 PM EST Appointment Cardiac Studies 1st Fl, [address] [place] [address] Gjsh, Food Safety Specialist [address] [place] [address] 08/24/2023 11:30 AM EST Nurse Only Cardiac Rehab, [address] [address] Gj, Nurse Cardiac Rehab [address] [place] [address] 08/27/2023 11:30 AM EDT Nurse Only Cardiac Rehab, [address] [address] Gj, Nurse Cardiac Rehab [address] [place] [address] 08/29/2023 11:30 AM EDT Nurse Only Cardiac Rehab, [address] [address] Gj, Nurse Cardiac Rehab [address] [place] [address] 08/31/2023 11:30 AM EDT Nurse Only Cardiac Rehab, [address] [address] Gj, Nurse Cardiac Rehab [address] [place] [address] 09/14/2023 1:20 PM EDT Office Visit Family [facility] [address] [place] [address] Dewayne Pena MD [address] [place] [address] 10/02/2023 1:40 PM EDT Office Visit Rheumatology [place] [address] [facility] [place] [address] Tmio Guzman MD [facility] [place] [address] 04/15/2024 10:40 AM EDT Office Visit Dermatology [facility] [address] [place] [address] Jonnathan House PA-C [address] [place], [place] [id number] Health Maintenance Due Date Last Done Comments [...] D LEVEL ONCE IN A LIFETIME-USE SMARTSET# [id number] Completed 11/03/2022, 11/20/2018 Influenza Vaccine (FLU shot) [...] this encounter Medical Devices Implanted Type Area Ramp Attendant Device Identifier Shelf Expiration Date Model / Serial / Lot Cath Thermodilution 6fr - [id number] Implanted:Qty: 1 on 03/07/2023 by Armando Beltran MD at [facility] [employer] KRISTYN [id number] 10/10/2024 [id number] / / [id number] Valve Aortic Transcath Fx 34mm - [id number] Implanted:Qty: 1 on 05/03/2023 by Armando Beltran MD at [facility] [email or web address] [id number] 08/10/2024 EVOLUTFX- 34 / [id number] / [id number] documented as of this encounter Visit Diagnoses Diagnosis S/P TAVR (transcatheter aortic valve replacement)- Primary Heart valve replaced by other means documented in this encounter Advance Directives Documents on File Type Date Recorded Patient Software Integrator Expl anation POLST 03/06/2022 [place] OR DERS FOR LIFE-SUSTAINING TREATMENT POLST 12/13/2021 [place] OR DERS FOR LIFE-SUSTAINING TREATMENT Latest Code [...] Direct lorenzo occurred with: Patient Care Teams Magician Helper Relationship Specialty Start Date End Date Dewayne Pena MD [address] [place] [address] PCP - General Family Medicine 04/30/23 documented as of this encounter
--- OUTSIDE RECORDS SUMMARY | 2023-10-08 23:07 | External Medical Summary | Summary of Care ---
Author Name Unknown Organization [facility] Address [address] [facility] [address] Phone [phone] Care Team Providers Care Personal Trainer Name Role Phone Dewayne Pena MD Primary Care Provider [phone] Reason for Visit * Reason Onset Date Comments Information 08/21/2023 Encounter Details Date Type Department Care Team (Late st Contact Info) Description 08/21/2023 Telephone Pulmonary Medicine, [facility] [address] [place] [address] Cara Brantley, [address] [place] [address] Information Allergies No known active allergiesdocumented as of this encounter (statuses as of 08/27/2023) Medications Medication Sig Dispensed Refills Start Date [...] as of this encounter (statuses as of 08/27/2023) Active Problems Problem Noted Date Diagnosed Date 1st degree AV block 05/05/2023 S/P TAVR (transcatheter aortic valve replacement ) 05/03/2023 BMI less than 19,adult 03/16/2023 Senile osteoporosis 09/28/2022 Protein-calorie malnutrition 07/07/2022 Neuromuscular disorder 07/07/2022 PHT (pulmonary hypertension) 06/02/2021 Hx of melanoma of skin 03/24/2021 Overview: Hx MM date 2013, Depth unknown, no SLN, Location R methodist PSVT (paroxysmal supraventricular tachycardia) 0 12/15/2019 Raynaud's disease without gangrene 06/02/2019 Esophageal dysmotility 05/20/2019 JULIUS (obstructive sleep apnea) 05/20/2019 ILD (interstitial lung disease) 05/20/2019 Coronary artery disease invo lving [place] coronary artery of [place] heart without angina pectoris 03/24/2019 Nonrheumatic mitral valve stenosis 03/24/2019 H/O Hodgkin's lymphoma 07/05/2018 Acquired hypothyroidism 07/05/2018 documented as of this encounter (statuses as of 08/27/2023) Resolved Problems Problem Noted Date Diagnosed Date Resolved Date Osteoporotic fracture of left hip 09/28/2022 03/14/2023 Aortic root enlargement 07/07/2022 1108/2022 Sinus tachycardia 03/16/2022 03/14/2023 Hx of nonmelanoma skin cancer 03/24/2021 05/14/2023 Overview: Hx MM date 2013, Depth unknown, no SLN, Location R methodist (still no path in chart, pt confirmed that he had surgery for melanoma at that site and for BCC prior, see below) BCC R forehead 2008 ([facility]) Prediabetes 02/28/2021 02/01/2023 Overview: Per Prediabetes protocol Moderate protein malnutrition 12/15/2019 03/14/2023 Ankylosing spondylitis of cervical region 12/15/2019 07/07/2022 Moderate aortic stenosis 03/24/2019 H/O atrial fibrillation with out current medication 07/05/2018 03/14/2023 documented as of this encounter (statuses as of 08/27/2023) Immunizations Name Administration Dates Next Due COVID-19 [...] encounter Miscellaneous Notes * Telephone Encounter - Shala Gracia LPN - 08/27/2023 9:56 AM EDT Notes and CMN have been faxed to [employer] * Telephone Encounter - Cara Brantley DO - 08/27/2023 9:22 AM EDT CMN signed. Please send office visit note from 07/09/23. * Telephone Encounter - Liberty Whitfield OSA - 08/21/2023 2:30 PM EST [employer] contacted me. They stated that they sent over request for update prescription for cpapsupplies on August 16. They also need office notes. I made them aware that Provider is out next week and will be back on Sunday. documented in this encounter Plan of Treatment Upcoming Encounters Date Type Department Care Team (Late st Contact Info) Description 08/27/2023 11:30 AM EDT Nurse Only Cardiac Rehab, [address] [place] [address] Gj, Nurse Cardiac Rehab [address] [place] [address] 08/29/2023 11:30 AM EDT Nurse Only Cardiac Rehab, [address] [address] Gj, Nurse Cardiac Rehab [address] [place] [address] 08/31/2023 11:30 AM EDT Nurse Only Cardiac Rehab, [address] [place] [address] Gj, Nurse Cardiac Rehab [address] [place] [address] 09/14/2023 1:20 PM EDT Office Visit Family Practice [facility] [address] [facility] [place] [address] Dewayne Pena MD 132 [facility] [place] [address] 10/02/2023 1:40 PM EDT Office Visit Rheumatology [place] [address] [place] [address] Timo Guzman MD [address] [place] [address] [place] [address] 04/15/2024 10:40 AM EDT Office Visit Dermatology [address] [id number] Jonnathan House PA-C [address] [place] [address] Health Maintenance Due Date Last Done Comments [...] D LEVEL ONCE IN A LIFETIME-USE SMARTSET# 10791 Completed 11/03/2022, 11/20/2018 Influenza Vaccine (FLU shot) [...] this encounter Medical Devices Implanted Type Area Hardware Installer Device Identifier Shelf Expiration Date Model / Serial / Lot Cath Thermodilution 6fr - [id number] Implanted:Qty: 1 on 03/07/2023 by Armando Beltran MD at [facility] [employer] KRISTYN [id number] 10/10/2024 [id number] / / [id number] Valve Aortic Transcath Fx 34mm - [id number] Implanted:Qty: 1 on 05/03/2023 by Armando Beltran MD at [facility] [employer] [id number] 08/10/2024 EVOLUTFX- 34 / [id number] / [id number] documented as of this encounter Advance Directives Documents on File Type Date Recorded Patient Occupational Therapy Manager Expl anation POLST 03/06/2022 [place] [...] Direct lorenzo occurred with: Patient Care Teams Personal Trainer Relationship Specialty Start Date End Date Dewayne Pena MD [address] [address] PCP - General Family Medicine 04/30/23 documented as of this encounter
--- OUTSIDE RECORDS SUMMARY | 2023-10-08 23:07 | External Medical Summary | Summary of Care ---
Author Name Unknown Organization [facility] Address [address] [place] [address] Phone [phone] Care Team Providers Care Commercial Art Instructor Name Role Phone Dewayne Pena MD Primary Care Provider [phone] [phone] Encounter Details Date Type Department Care Team (Late st Contact Info) Description 08/28/2023 Orders Only Neurology, [place] [address] [place] [address] Brenna Quinonez, MS [address] [place] [address] Myopathy*; Oral phase dysphagia; Peripheral polyneuropathy Allergies No known active allergiesdocumented as of [...] 2013, Depth unknown, no SLN, Location R tenriism PSVT (paroxysmal supraventricular tachycardia) 0 12/15/2019 Raynaud's disease without gangrene 06/02/2019 Esophageal dysmotility 05/20/2019 JULIUS (obstructive sleep apnea) 05/20/2019 ILD (interstitial lung disease) 05/20/2019 Coronary artery disease invo lving [place] coronary artery of [place] heart without angina pectoris 03/24/2019 Nonrheumatic mitral [...] 2013, Depth unknown, no SLN, Location R tenriism (still no path in chart, pt confirmed that he had surgery for melanoma at that site and for BCC prior, see below) BCC R forehead 2008 ([facility]) Prediabetes 02/28/2021 02/01/2023 Overview: Per [...] No 05/04/2023 documented as of this encounter Plan of Treatment Upcoming Encounters Date Type Department Care Team (Late st Contact Info) Description 08/29/2023 11:30 AM EDT Nurse Only Cardiac Rehab, [address] [address] [facility], Nurse Cardiac Rehab [address] [place] [address] 08/31/2023 11:30 AM EDT Nurse Only Cardiac Rehab, [address] [address] [facility], Nurse Cardiac Rehab [address] [place] [address] 09/14/2023 1:20 PM EDT Office Visit Family Practice [facility] [address] [place] [address] Dewayne Pena MD [address] [address] 10/02/2023 1:40 PM EDT Office Visit Rheumatology [place] [address] [facility] [place], [place] [address] Timo Guzman MD [facility], [place] [address] 04/15/2024 10:40 AM EDT Office Visit Dermatology [facility] [address] [place] [address] Jonnathan House PA-C [address] [place] [address] Pending Results Name Type Priority Associated Diagnoses Date /Time NON-FORMULARY TEST REQUEST Lab Routine Myopathy Oral phase dysphagia Peripheral polyneuropathy 08/28/2023 1:45 PM EDT Health Maintenance Due Date Last Done [...] D LEVEL ONCE IN A LIFETIME-USE SMARTSET# [id number] Completed 11/03/2022, 11/20/2018 Influenza Vaccine (FLU shot) [...] this encounter Medical Devices Implanted Type Area Shellfish Sorter Device Identifier Shelf Expiration Date Model / Serial / Lot Cath Thermodilution 6fr - [id number] Implanted:Qty: 1 on 03/07/2023 by Armando Beltran MD at [facility] [employer]YN [id number] 10/10/2024 [id number] / / [id number] Valve Aortic Transcath Fx 34mm - [id number] Implanted:Qty: 1 on 05/03/2023 by Armando Beltran MD at [facility] [employer] [id number] 08/10/2024 EVOLUTFX- 34 / [id number] / [id number] documented as of this encounter Visit Diagnoses Diagnosis Myopathy- Primary Myopathy, unspecified Oral phase dysphagia Dysphagia, oral phase Peripheral polyneuropathy Unspecified hereditary and idiopathic peripheral neuropathy documented in this encounter Advance Directives Documents on File Type Date Recorded Patient Drawer Liner Expl anation POLST 03/06/2022 [place] DERS [...] Direct lorenzo occurred with: Patient Care Teams Commercial Art Instructor Relationship Specialty Start Date End Date Dewayne Pena MD [address] [address] PCP - General Family Medicine 04/30/23 documented as of this encounter
--- OUTSIDE RECORDS SUMMARY | 2023-10-08 23:07 | External Medical Summary ---
Author Name Unknown Address Unknown Organization K01:[facility] - [address] [facility] [address] Laboratory Report Ordering Provider Test Date Status DIANA WONG 08/28/2023 13:45:02 Final Observation Date Value Abnormality Reference (Units ) Status COMMENT 08/28/2023 13:45:02 Laboratory testing ordered. Final COMMENT 08/28/2023 13:45:02 Final COMMENT 08/28/2023 13:45:02 Patient can now be collected. Final COMMENT 08/28/2023 13:45:02 Final COMMENT 08/28/2023 13:45:02 Approve this testing as requested. Final COMMENT 08/28/2023 13:45:02 This non-formulary test request was reviewed by Aliyah Vogel DO. Final Performing Location [facility] - [address] [facility] [address] [facility] [address]
--- OUTSIDE RECORDS SUMMARY | 2023-10-08 23:07 | External Medical Summary | Summary of Care ---
Author Name Unknown Organization [facility] Address [address] [place] [address] Phone [phone] Care Team Providers Care Radial Drill Press Operator For Plastic Name Role Phone Dewayne Pena MD Primary Care Provider +1 [phone] Encounter Details Date Type Department Care Team (Late st Contact Info) Description 08/28/2023 Orders Only Neurology, [place] [address] [place] [address] Brenna Quinonez, MS [address] [place] [address] Myopathy*; Oral phase dysphagia; Peripheral polyneuropathy Allergies No known active allergiesdocumented as of this encounter (statuses as of 08/29/2023) Medications Medication Sig Dispensed Refills Start Date [...] as of this encounter (statuses as of 08/29/2023) Active Problems Problem Noted Date Diagnosed Date 1st degree AV block 05/05/2023 S/P TAVR (transcatheter aortic valve replacement ) 05/03/2023 BMI less than 19,adult 03/16/2023 Senile osteoporosis 09/28/2022 Protein-calorie malnutrition 07/07/2022 Neuromuscular disorder 07/07/2022 PHT (pulmonary hypertension) 06/02/2021 Hx of melanoma of skin 03/24/2021 Overview: Hx MM date 2013, Depth unknown, no SLN, Location [facility] PSVT (paroxysmal supraventricular tachycardia) 0 12/15/2019 Raynaud's disease without gangrene 06/02/2019 Esophageal dysmotility 05/20/2019 JLUIUS (obstructive sleep apnea) 05/20/2019 ILD (interstitial lung disease) 05/20/2019 Coronary artery disease invo lving [place] coronary artery of [place] heart without angina pectoris 03/24/2019 Nonrheumatic mitral valve stenosis 03/24/2019 H/O Hodgkin's lymphoma 07/05/2018 Acquired hypothyroidism 07/05/2018 documented as of this encounter (statuses as of 08/29/2023) Resolved Problems Problem Noted Date Diagnosed Date Resolved Date Osteoporotic fracture of left hip 09/28/2022 03/14/2023 Aortic root enlargement 07/07/2022 11/2 08/2022 Sinus tachycardia 03/16/2022 03/14/2023 Hx of nonmelanoma skin cancer 03/24/2021 05/14/2023 Overview: Hx MM date 2013, Depth unknown, no SLN, Location [facility] (still no path in chart, pt confirmed that he had surgery for melanoma at that site and for BCC prior, see below) BCC R forehead 2008 ([facility]) Prediabetes 02/28/2021 02/01/2023 Overview: Per Prediabetes protocol Moderate protein malnutrition 12/15/2019 03/14/2023 Ankylosing spondylitis of cervical region 12/15/2019 07/07/2022 Moderate aortic stenosis 03/24/2019 H/O atrial fibrillation with out current medication 07/05/2018 03/14/2023 documented as of this encounter (statuses as of 08/29/2023) Immunizations Name Administration Dates Next Due COVID-19 [...] encounter Miscellaneous Notes * Addendum Note - Kay Omalley TECH - 08/29/2023 9:39 AM EDTAddended by: KAY OMALLEY on: 08/29/2023 09:39 AM Modules accepted: Orders documented in this encounter Plan of Treatment Upcoming Encounters Date Type Department Care Team (Late st Contact Info) Description 08/29/2023 11:30 AM EDT Nurse Only Cardiac Rehab, [facility] [address] [place] [address] [facility], Nurse Cardiac Rehab [address] [place] [address] 08/31/2023 11:30 AM EDT Nurse Only Cardiac Rehab, [facility] [address] [place] [address] [facility], Nurse Cardiac Rehab [address] [place] [address] 09/14/2023 1:20 PM EDT Office Visit Family Practice [facility] [address] [place] [address] Dewayne Pena MD [address] [place] [address] 10/02/2023 1:40 PM EDT Office Visit Rheumatology [place] [address] [facility] [place] [address] Timo Guzman MD [facility] [address] [place] [address] 04/15/2024 10:40 AM EDT Office Visit Dermatology [facility] [address] [place] [address] Jonnathan House PA-C [address] [place] [address] [phone] Scheduled Orders Name Type Priority Associated Diagnoses Orde r Schedule REFERRED TEST, OTHER,(LAB USE ONLY) Lab Routine Myopathy Oral phase dysphagia Peripheral polyneuropathy Expected: 09/12/2023, Expires: 08/28/2024 Health Maintenance Due Date Last Done Comments [...] D LEVEL ONCE IN A LIFETIME-USE SMARTSET# [id number] Completed 11/03/2022, 11/20/2018 Influenza Vaccine (FLU shot) [...] this encounter Medical Devices Implanted Type Area Sales Support Coordinator Device Identifier Shelf Expiration Date Model / Serial / Lot Cath Thermodilution 6fr - [id number] Implanted:Qty: 1 on 03/07/2023 by Armando Beltran MD at [facility] [employer] KRISTYN [id number] 10/10/2024 [id number] / / [id number] Valve Aortic Transcath Fx 34mm - [id number] Implanted:Qty: 1 on 05/03/2023 by Armando Beltran MD at [facility] [employer] [id number] 08/10/2024 EVOLUTFX- 34 / [id number] / [id number] documented as of this encounter Procedures Procedure Name Priority Date/Time Associated Diagnosis Comments NON-FORMULARY TEST REQUEST Routine 08/28/2023 1:45 PM EDT Myopathy Oral phase dysphagia Peripheral polyneuropathy documented in this encounter Results * NON-FORMULARY TEST REQUEST (08/28/2023 1:45 PM EDT) Saliva Saliva specimen / Unknown 08/28/2023 1:45 PM EDT 08/28/2023 1:45 PM EDT Narrative [facility] - 08/29/2023 9:40 AM EDT Laboratory testing ordered. Patient can now be collected. Approve this testing as requested. This non-formulary test request was reviewed by Aliyah Vogel DO. Saurav Serna MD LAB BLOOD ORDERABLES [facility] [address] [facility] [place] [address] documented in this encounter Visit Diagnoses Diagnosis Myopathy- Primary Myopathy, unspecified Oral phase dysphagia Dysphagia, oral phase Peripheral polyneuropathy Unspecified hereditary and idiopathic peripheral neuropathy documented in this encounter Advance Directives Documents on File Type Date Recorded Patient Public Records Officer Expl anation POLST 03/06/2022 [place] OR DERS [...] Direct lorenzo occurred with: Patient Care Teams Radial Drill Press Operator For Plastic Relationship Specialty Start Date End Date Dewayne Pena MD [address] [facility] [place] [address] PCP - General Family Medicine 04/30/23 documented as of this encounter
--- OUTSIDE RECORDS SUMMARY | 2023-10-08 23:07 | External Medical Summary | Summary of Care ---
Author Name Unknown Organization [facility] Address [address] [place] [address] Phone [phone] Care Team Providers Care Portable Sawyer Name Role Phone Dewayne Pena MD Primary Care Provider [phone] Reason for Visit * Reason Comments Cardiac Rehab * Evaluate & Treat - Unlimited Visits (Within 30 days (routine)) - Authorized Specialty Diagnoses / Procedures Referred By Contac t Referred To Contact CARDIAC REHAB / Cardiology Diagnoses S/P TAVR (transcatheter aortic valve replacement) Status post cardiac surgery Jarrell, DO Camille [address] [place] [address] Referral ID Status Reason Start Date Expiration Date Visits Requested Visits Authorized [id number] Authorized Specialty Services Required 3 [phone] Encounter Details Date Type Department Care Team (Late st Contact Info) Description 09/03/2023 1:00 PM EDT Nurse Only Cardiac Re[place], [place] [address] [facility], Nurse Cardiac Rehab [address] [place] [address] Cardiac Rehab (/) Allergies No known active [...] 2013, Depth unknown, no SLN, Location R y[facility] PSVT (paroxysmal supraventricular tachycardia) 0 12/15/2019 Raynaud's disease without gangrene 06/02/2019 Esophageal dysmotility 05/20/2019 JULIUS (obstructive sleep apnea) 05/20/2019 ILD (interstitial lung disease) 05/20/2019 Coronary artery disease invo lving [place] coronary artery of [place] heart without angina pectoris 03/24/2019 Nonrheumatic mitral [...] 2013, Depth unknown, no SLN, Location R y[facility]ani (still no path in chart, pt confirmed that he had surgery for melanoma at that site and for BCC prior, see below) BCC R forehead 2008 ([facility]) Prediabetes 02/28/2021 02/01/2023 Overview: Per [...] MCG/0.3 mL, 12 YRS AND ABOVE, IM (Revegy-Comnat) 03/27/2023 COVID-19, mRNA, LNP-s, PF, B ooster, [...] as of this encounter Nursing Notes * [place]Zoraida morton RN - 09/03/2023 2:00 PM EDT [...] 10:00 AM EDT Nurse Only Cardiac Rehab, [facility] [address] [place] [address] [facility], Nurse Cardiac Rehab [address] [place] [address] 09/14/2023 1:20 PM EDT Office Visit Family Practice [facility] [address] [place] [address] Dewayne Pena MD [address] [place] [address] 10/02/2023 1:40 PM EDT Office Visit Rheumatology [address] [address] Timo Guzman MD [address] [place] [address] 04/15/2024 10:40 AM EDT Office Visit Dermatology [facility] [address] [place] [address] Jonnathan House PA-C [address] [place] [address] Pending Results Name Type Priority Associated Diagnoses Date /Time REFERRED TEST, OTHER,(LAB USE ONLY) Lab Routine Myopathy Oral phase dysphagia Peripheral polyneuropathy 09/05/2023 9:21 AM EDT Health Maintenance Due Date Last [...] D LEVEL ONCE IN A LIFETIME-USE SMARTSET# [id number] Completed 11/03/2022, 11/20/2018 Influenza Vaccine (FLU shot) [...] this encounter Medical Devices Implanted Type Area Credit Control Clerk Device Identifier Shelf Expiration Date Model / Serial / Lot Cath Thermodilution 6fr - [id number] Implanted:Qty: 1 on 03/07/2023 by Armando Beltran MD at [facility] [place] [employer] [id number] 10/10/2024 [id number] / / [id number] Valve Aortic Transcath Fx 34mm - [id number] Implanted:Qty: 1 on 05/03/2023 by Armando Beltran MD at [facility] [place] [employer] [id number] 08/10/2024 EVOLUTFX- 34 / [id number] / [id number] documented as of this encounter Visit Diagnoses Diagnosis S/P TAVR (transcatheter aortic valve replacement)- Primary Heart valve replaced by other means Myopathy Myopathy, unspecified Oral phase dysphagia Dysphagia, oral phase Peripheral polyneuropathy Unspecified hereditary and idiopathic peripheral neuropathy documented in this encounter Advance Directives Documents on File Type Date Recorded Patient Inspector Exhaust Emissions Expl anation POLST 03/06/2022 [place] OR DERS FOR LIFE-SUSTAINING TREATMENT POLST 12/13/2021 [place] OR DERS FOR LIFE-SUSTAINING TREATMENT Latest Code [...] Direct lorenzo occurred with: Patient Care Teams Portable Sawyer Relationship Specialty Start Date End Date Dewayne Pena MD [address] [place] [address] PCP - General Family Medicine 04/30/23 documented as of this encounter
--- OUTSIDE RECORDS SUMMARY | 2023-10-08 23:07 | External Medical Summary | Summary of Care ---
Author Name Unknown Organization [facility] Address [address] [place] [address] Phone [phone] Care Team Providers Care Web Site Admin Name Role Phone Dewayne Pena MD Primary Care Provider [phone] Reason for Visit * Reason Comments Cardiac Rehab * Evaluate & Treat - Unlimited Visits (Within 30 days (routine)) - Authorized Specialty Diagnoses / Procedures Referred By Contac t Referred To Contact CARDIAC REHAB / Cardiology Diagnoses S/P TAVR (transcatheter aortic valve replacement) Status post cardiac surgery Camille Vieyra DO [address] [place] [address] Referral ID Status Reason Start Date Expiration Date Visits Requested Visits Authorized [id number] Authorized Specialty Services Required 3 [phone] Encounter Details Date Type Department Care Team (Late st Contact Info) Description 08/24/2023 11:30 AM EST Nurse Only Cardiac Rehab, [place] [address] [facility], Nurse Cardiac Rehab [address] [place] [address] Cardiac Rehab Allergies No known active allergiesdocumented as of this encounter (statuses as of 08/24/2023) Medications Medication Sig Dispensed Refills Start Date [...] as of this encounter (statuses as of 08/24/2023) Active Problems Problem Noted Date Diagnosed Date 1st degree AV block 05/05/2023 S/P TAVR (transcatheter aortic valve replacement ) 05/03/2023 BMI less than 19,adult 03/16/2023 Senile osteoporosis 09/28/2022 Protein-calorie malnutrition 07/07/2022 Neuromuscular disorder 07/07/2022 PHT (pulmonary hypertension) 06/02/2021 Hx of melanoma of skin 03/24/2021 Overview: Hx MM date 2013, Depth unknown, no SLN, Location R mu-ism PSVT (paroxysmal supraventricular tachycardia) 0 12/15/2019 Raynaud's disease without gangrene 06/02/2019 Esophageal dysmotility 05/20/2019 JULIUS (obstructive sleep apnea) 05/20/2019 ILD (interstitial lung disease) 05/20/2019 Coronary artery disease invo lving [place] coronary artery of [place] heart without angina pectoris 03/24/2019 Nonrheumatic mitral valve stenosis 03/24/2019 H/O Hodgkin's lymphoma 07/05/2018 Acquired hypothyroidism 07/05/2018 documented as of this encounter (statuses as of 08/24/2023) Resolved Problems Problem Noted Date Diagnosed Date Resolved Date Osteoporotic fracture of left hip 09/28/2022 03/14/2023 Aortic root enlargement 07/07/2022 11/2 08/2022 Sinus tachycardia 03/16/2022 03/14/2023 Hx of nonmelanoma skin cancer 03/24/2021 05/14/2023 Overview: Hx MM date 2013, Depth unknown, no SLN, Location R mu-ism (still no path in chart, pt confirmed [...] as of this encounter (statuses as of 08/24/2023) Immunizations Name Administration Dates Next Due COVID-19 [...] Sign Reading Time Taken Comments Blood Pressure 128/68 08/24/2023 11:57 AM EST Pulse 93 08/24/2023 11:57 AM EST Temperature - - Respiratory Rate - - Oxygen Saturation - - Inhaled Oxygen Concentration - - Weight 63.4 kg (139 lb 11.2 oz) 024 11:57 AM EST Height - - Body Mass Index 18.43 08/13/2023 9:33 AM EST documented in this encounter Functional Status Functional Status Response Date of Assess ment Do you have serious difficul ty walking or climbing stairs? (5 years old or older) No 05/04/2023 documented as of this encounter Nursing Notes * Zoraida Del Rosario RN - 08/24/2023 11:57 AM EST Patient tolerated Cardiac Rehab exercise without difficulty. Safianet tolerated well, has had zio patch applied since last visit. No reports of SVT noted with patch on. Will continue to monitor. documented in this encounter Plan of Treatment Upcoming Encounters Date Type Department Care Team (Late st Contact Info) Description 08/27/2023 11:30 AM EDT Nurse Only Cardiac Rehab, [address] [address] [facility], Nurse Cardiac Rehab [address] [place] [address] 08/29/2023 11:30 AM EDT Nurse Only Cardiac Rehab, [address] [address] [facility], Nurse Cardiac Rehab [address] [place] [address] 08/31/2023 11:30 AM EDT Nurse Only Cardiac Rehab, [address] [address] [facility], Nurse Cardiac Rehab [address] [place] [address] 09/14/2023 1:20 PM EDT Office Visit Family Practice [facility] [address] [place] [address] Dewayne Pena MD [address] [place] [address] 10/02/2023 1:40 PM EDT Office Visit Rheumatology [place] [address] [facility] [place] [address] Timo Guzman MD [facility] [place] [address] 04/15/2024 10:40 AM EDT Office Visit Dermatology [facility] [address] [place] [address] Jonnathan House PA-C [address] [place], [place] [address] [address] Health Maintenance Due Date Last Done Comments [...] D LEVEL ONCE IN A LIFETIME-USE SMARTSET# [id number] Completed 11/03/2022, 11/20/2018 Influenza Vaccine (FLU shot) [...] this encounter Medical Devices Implanted Type Area Special Education Teacher Device Identifier Shelf Expiration Date Model / Serial / Lot Cath Thermodilution 6fr - [id number] Implanted:Qty: 1 on 03/07/2023 by Armando Beltran MD [place] [facility] [employer] [id number] 10/10/2024 [id number] / / [id number] Valve Aortic Transcath Fx 34mm - [id number] Implanted:Qty: 1 on 05/03/2023 by Armando Beltran MD at [facility] [employer] [id number] 08/10/2024 EVOLUTFX- 34 / [id number] / [id number] documented as of this encounter Visit Diagnoses Diagnosis S/P TAVR (transcatheter aortic valve replacement)- Primary Heart valve replaced by other means documented in this encounter Advance Directives Documents on File Type Date Recorded Patient Supervisor Agricultural Education Expl anation POLST 03/06/2022 [place] OR DERS FOR LIFE-SUSTAINING TREATMENT POLST 12/13/2021 [place] OR DERS FOR LIFE-SUSTAINING TREATMENT Latest Code [...] Direct lorenzo occurred with: Patient Care Teams Web Site Admin Relationship Specialty Start Date End Date Dewayne Pena MD [address] [facility] [place] [address] PCP - General Family Medicine 04/30/23 documented as of this encounter
--- OUTSIDE RECORDS SUMMARY | 2023-10-08 23:07 | External Medical Summary | Summary of Care ---
Author Name Unknown Organization [facility] Address [address] [place] [address] Phone [phone] Care Team Providers Care Sleeve Baster Name Role Phone Dewayne Pena MD Primary Care Provider [phone] Reason for Visit * Reason Comments Cardiac Rehab * Evaluate & Treat - Unlimited Visits (Within 30 days (routine)) - Authorized Specialty Diagnoses / Procedures Referred By Contac t Referred To Contact CARDIAC REHAB / Cardiology Diagnoses S/P TAVR (transcatheter aortic valve replacement) Status post cardiac surgery Jarrell, DO Camille [address] [place] [address] Referral ID Status Reason Start Date Expiration Date Visits Requested Visits Authorized [id number] Authorized Specialty Services Required 3 [phone] Encounter Details Date Type Department Care Team (Late st Contact Info) Description 08/29/2023 11:30 AM EDT Nurse Only Cardiac Rehab, [place] [address] [facility], Nurse Cardiac Rehab [address] [place] [address] Cardiac Rehab Allergies No known active allergiesdocumented [...] 2013, Depth unknown, no SLN, Location R yazidi PSVT (paroxysmal supraventricular tachycardia) 0 12/15/2019 Raynaud's disease without gangrene 06/02/2019 Esophageal dysmotility 05/20/2019 JULIUS (obstructive sleep apnea) 05/20/2019 ILD (interstitial lung disease) 05/20/2019 Coronary artery disease invo lving [place] coronary artery of [place] heart without angina pectoris 03/24/2019 Nonrheumatic mitral [...] 2013, Depth unknown, no SLN, Location R yazidi (still no path in chart, pt confirmed that he had surgery for melanoma at that site and for BCC prior, see below) BCC R forehead 2008 ([facility]) Prediabetes 02/28/2021 02/01/2023 Overview: Per Prediabetes protocol [...] Sign Reading Time Taken Comments Blood Pressure 112/58 08/29/2023 12:11 PM EDT Pulse - - Temperature - - Respiratory Rate - - Oxygen Saturation - - Inhaled Oxygen Concentration - - Weight 63.5 kg (140 lb) 08/29/2023 12:11 PM EDT Height - - Body Mass Index 18.47 08/13/2023 9:33 AM EST documented in this encounter Functional Status Functional Status Response Date of Assess ment Do you have serious difficul ty walking or climbing stairs? (5 years old or older) No 05/04/2023 documented as of this encounter Nursing Notes * Verona Rodriguez RN - 08/29/2023 12:11 PM EDT Pt participated in Cardiac Rehab today with no complications. Exercise regimen per protocol. Pt had2 episodes of SVT where highest heart rate is 132. Pts symptom was mild lightheadedness which resolved after one minute of rest. BP at discharge 138/70 and heart rate 101 which is baseline for patient. documented in this encounter Plan of Treatment Upcoming Encounters Date Type Department Care Team (Late st Contact Info) Description 08/31/2023 11:30 AM EDT Nurse Only Cardiac Rehab, [facility] [address] [place] [address] [facility], Nurse Cardiac Rehab [address] [place] [address] 09/14/2023 1:20 PM EDT Office Visit Family Practice [facility] [address] [place] [address] Dewayne Pena MD [address] [place] [address] 10/02/2023 1:40 PM EDT Office Visit Rheumatology [address] [place] [address] Timo Guzman MD [facility] [place] [address] 04/15/2024 10:40 AM EDT Office Visit Dermatology [facility] [address] [place] [address] Jonnathan House PA-C [address] [place], [place] [phone] Health Maintenance Due Date Last Done Comments [...] D LEVEL ONCE IN A LIFETIME-USE SMARTSET# [id number] Completed 11/03/2022, 11/20/2018 Influenza Vaccine (FLU shot) [...] this encounter Medical Devices Implanted Type Area Support Teacher Device Identifier Shelf Expiration Date Model / Serial / Lot Cath Thermodilution 6fr - [id number] Implanted:Qty: 1 on 03/07/2023 by Armando Beltran MD at [facility] [place] [employer] [id number] 10/10/2024 [id number] / / [id number] Valve Aortic Transcath Fx 34mm - [id number] Implanted:Qty: 1 on 05/03/2023 by Armando Beltran MD [place] [facility] [place] [employer] [id number] 08/10/2024 EVOLUTFX- 34 / [id number] / [id number] documented as of this encounter Visit Diagnoses Diagnosis S/P TAVR (transcatheter aortic valve replacement)- Primary Heart valve replaced by other means documented in this encounter Advance Directives Documents on File Type Date Recorded Patient Arson Investigator Expl anation POLST 03/06/2022 [place] OR DERS FOR LIFE-SUSTAINING TREATMENT POLST 12/13/2021 [place] OR DERS FOR LIFE-SUSTAINING TREATMENT Latest Code [...] Direct lorenzo occurred with: Patient Care Teams Sleeve Baster Relationship Specialty Start Date End Date Dewayne Pena MD [address] [place] [address] PCP - General Family Medicine 04/30/23 documented as of this encounter
--- OUTSIDE RECORDS SUMMARY | 2023-10-08 23:07 | External Medical Summary | Summary of Care ---
Author Name Unknown Organization [facility] Address [address] [place] [address] Phone [phone] Care Team Providers Care Political Science Faculty Member Name Role Phone Dewayne Pena MD Primary Care Provider [phone] [phone] Reason for Visit * Reason Comments Cardiac Rehab * Evaluate & Treat - Unlimited Visits (Within 30 days (routine)) - Authorized Specialty Diagnoses / Procedures Referred By Contac t Referred To Contact CARDIAC REHAB / Cardiology Diagnoses S/P TAVR (transcatheter aortic valve replacement) Status post cardiac surgery Jarrell, DO Camille [address] [place] [address] Referral ID Status Reason Start Date Expiration Date Visits Requested Visits Authorized [id number] Authorized Specialty Services Required 3 [phone] Encounter Details Date Type Department Care Team (Late st Contact Info) Description 09/03/2023 1:00 PM EDT Nurse Only Cardiac Rehab, [place] [address] [facility], Nurse Cardiac Rehab [address] [place] [address] Cardiac Rehab (/) Allergies No known active allergiesdocumented as of this encounter (statuses as of 09/03/2023) Medications Medication Sig Dispensed Refills Start Date [...] as of this encounter (statuses as of 09/03/2023) Active Problems Problem Noted Date Diagnosed Date 1st degree AV block 05/05/2023 S/P TAVR (transcatheter aortic valve replacement ) 05/03/2023 BMI less than 19,adult 03/16/2023 Senile osteoporosis 09/28/2022 Protein-calorie malnutrition 07/07/2022 Neuromuscular disorder 07/07/2022 PHT (pulmonary hypertension) 06/02/2021 Hx of melanoma of skin 03/24/2021 Overview: Hx MM date 2013, Depth unknown, no SLN, Location R anabaptist PSVT (paroxysmal supraventricular tachycardia) 0 12/15/2019 Raynaud's disease without gangrene 06/02/2019 Esophageal dysmotility 05/20/2019 JULIUS (obstructive sleep apnea) 05/20/2019 ILD (interstitial lung disease) 05/20/2019 Coronary artery disease invo lving [place] coronary artery of [place]ma[place] heart without angina pectoris 03/24/2019 Nonrheumatic mitral valve stenosis 03/24/2019 H/O Hodgkin's lymphoma 07/05/2018 Acquired hypothyroidism 07/05/2018 documented as of this encounter (statuses as of 09/03/2023) Resolved Problems Problem Noted Date Diagnosed Date Resolved Date Osteoporotic fracture of left hip 09/28/2022 03/14/2023 Aortic root enlargement 07/07/2022 11/2 08/2022 Sinus tachycardia 03/16/2022 03/14/2023 Hx of nonmelanoma skin cancer 03/24/2021 05/14/2023 Overview: Hx MM date 2013, Depth unknown, no SLN, Location R anabaptist (still no path in chart, pt confirmed that he had surgery for melanoma at that site and for BCC prior, see below) BCC R forehead 2008 ([facility]) Prediabetes 02/28/2021 02/01/2023 Overview: Per Prediabetes protocol Moderate protein malnutrition 12/15/2019 03/14/2023 Ankylosing spondylitis of cervical region 12/15/2019 07/07/2022 Moderate aortic stenosis 03/24/2019 H/O atrial fibrillation with out current medication 07/05/2018 03/14/2023 documented as of this encounter (statuses as of 09/03/2023) Immunizations Name Administration Dates Next Due COVID-19 mRNA, LNP-s, No Pre serve, 2-Dose Series (Moderna) 08/21/2020,07/17/2020 COVID-19, MRNA-LNP, 23-24, P F, 30 MCG/0.3 mL, 12 YRS AND ABOVE, IM (Oree-Comnat) 03/27/2023 COVID-19, mRNA, LNP-s, PF, B ooster, [...] as of this encounter Nursing Notes * BrandonZoraida morton RN - 09/03/2023 2:00 PM EDT [...] 10:00 AM EDT Nurse Only Cardiac Rehab, [facility] [address] [place] [address] [facility], Nurse Cardiac Rehab [address] [place] [address] 09/14/2023 1:20 PM EDT Office Visit Family Practice [facility] [address] [place] [address] Dewayne Pena MD [address] [place] [address] 10/02/2023 1:40 PM EDT Office Visit Rheumatology [address] [address] Timo Guzman MD [address] [place] [address] 04/15/2024 10:40 AM EDT Office Visit Dermatology [facility] [address] [place] [address] Jonnathan House PA-C [address] [place] [address] Health Maintenance Due Date Last Done Comments [...] D LEVEL ONCE IN A LIFETIME-USE SMARTSET# [id number] Completed 11/03/2022, 11/20/2018 Influenza Vaccine (FLU shot) [...] this encounter Medical Devices Implanted Type Area Barnworker Groom Device Identifier Shelf Expiration Date Model / Serial / Lot Cath Thermodilution 6fr - [id number] Implanted:Qty: 1 on 03/07/2023 by Armando Beltran MD at [facility] [employer] KRISTYN [id number] 10/10/2024 [id number] / / [id number] Valve Aortic Transcath Fx 34mm - [id number] Implanted:Qty: 1 on 05/03/2023 by Armando Beltran MD at [facility] [employer] [id number] 08/10/2024 EVOLUTFX- 34 / [id number] / [id number] documented as of this encounter Visit Diagnoses Diagnosis S/P TAVR (transcatheter aortic valve replacement)- Primary Heart valve replaced by other means documented in this encounter Advance Directives Documents on File Type Date Recorded Patient Track Manager Expl anation POLST 03/06/2022 [place] OR DERS [...] Direct lorenzo occurred with: Patient Care Teams Political Science Faculty Member Relationship Specialty Start Date End Date Dewayne Pena MD [address] [facility] [place] [address] PCP - General Family Medicine 04/30/23 documented as of this encounter
--- OUTSIDE RECORDS SUMMARY | 2023-10-08 23:07 | External Medical Summary | Summary of Care ---
Author Name Unknown Organization [facility] Address [address] [place] [address] Phone [phone] Care Team Providers Care Dinkey Engine Firer/Fireman Name Role Phone Dewayne Pena MD Primary Care Provider [phone] Reason for Visit * Reason Comments Cardiac Rehab Encounter Details Date Type Department Care Team (Late st Contact Info) Description 08/31/2023 11:30 AM EDT Nurse Only Cardiac Rehab, [facility] [address] [place] [address] [facility], Nurse Cardiac Rehab [address] [place] [address] Cardiac Rehab Allergies No known active allergiesdocumented as of this encounter (statuses as of 08/31/2023) Medications Medication Sig Dispensed Refills Start Date [...] as of this encounter (statuses as of 08/31/2023) Active Problems Problem Noted Date Diagnosed Date 1st degree AV block 05/05/2023 S/P TAVR (transcatheter aortic valve replacement ) 05/03/2023 BMI less than 19,adult 03/16/2023 Senile osteoporosis 09/28/2022 Protein-calorie malnutrition 07/07/2022 Neuromuscular disorder 07/07/2022 PHT (pulmonary hypertension) 06/02/2021 Hx of melanoma of skin 03/24/2021 Overview: Hx MM date 2013, Depth unknown, no SLN, Location R confucianist PSVT (paroxysmal supraventricular tachycardia) 0 12/15/2019 Raynaud's disease without gangrene 06/02/2019 Esophageal dysmotility 05/20/2019 JULIUS (obstructive sleep apnea) 05/20/2019 ILD (interstitial lung disease) 05/20/2019 Coronary artery disease invo lving [place] coronary artery of [place] heart without angina pectoris 03/24/2019 Nonrheumatic mitral valve stenosis 03/24/2019 H/O Hodgkin's lymphoma 07/05/2018 Acquired hypothyroidism 07/05/2018 documented as of this encounter (statuses as of 08/31/2023) Resolved Problems Problem Noted Date Diagnosed Date Resolved Date Osteoporotic fracture of left hip 09/28/2022 03/14/2023 Aortic root enlargement 07/07/2022 11/2 08/2022 Sinus tachycardia 03/16/2022 03/14/2023 Hx of nonmelanoma skin cancer 03/24/2021 05/14/2023 Overview: Hx MM date 2013, Depth unknown, no SLN, Location R confucianist (still no path in chart, pt confirmed that he had surgery for melanoma at that site and for BCC prior, see below) BCC R forehead 2008 ([facility]) Prediabetes 02/28/2021 02/01/2023 Overview: Per Prediabetes protocol Moderate protein malnutrition 12/15/2019 03/14/2023 Ankylosing spondylitis of cervical region 12/15/2019 07/07/2022 Moderate aortic stenosis 03/24/2019 H/O atrial fibrillation with out current medication 07/05/2018 03/14/2023 documented as of this encounter (statuses as of 08/31/2023) Immunizations Name Administration Dates Next Due COVID-19 mRNA, LNP-s, No Pre serve, 2-Dose Series (Moderna) 08/21/2020,07/17/2020 COVID-19, MRNA-LNP, 23-24, P F, 30 MCG/0.3 mL, 12 YRS AND ABOVE, IM (Zeomatrix-Comircounts include [facility] beds [facility]) 03/27/2023 COVID-19, mRNA, LNP-s, PF, B ooster, 100mcg/0.5mg (Moderna) 10/13/2021,04/13/2021 Covid-19, Mrna, Lnp-s, Pf, B ivalent, 30 Mcg, IM, 12 yrs and above ([employer]) 11/09/2022,03/10/2022 PPD 12/29/2020,12/24/2018,12/03/2018 Pneumococcal Conjugate Vacc, 13 [...] Sign Reading Time Taken Comments Blood Pressure 128/74 08/31/2023 11:47 AM EDT Pulse 91 08/31/2023 11:47 AM EDT Temperature - - Respiratory Rate - - Oxygen Saturation - - Inhaled Oxygen Concentration - - Weight 64 kg (141 lb) 08/31/2023 11:47 AM EDT Height - - Body Mass Index 18.6 08/13/2023 9:33 AM EST documented in this encounter Functional Status Functional Status Response Date of Assess ment Do you have serious difficul ty walking or climbing stairs? (5 years old or older) No 05/04/2023 documented as of this encounter Nursing Notes * Verona Rodriguez RN - 08/31/2023 11:48 AM EDT Pt participated in Cardiac Rehab today with no complications. Exercise regimen per protocol. Multiple episodes of SVT noted, max heart rate 121; pt pushed button on zio patch two times during session. Pt experiences lightheadedness with SVT and then will stop exercise. BP remains stable. Session terminated about 5 minutes early. Discharge BP 132/70 and pulse 102 documented in this encounter Plan of Treatment Upcoming Encounters Date Type Department Care Team (Late st Contact Info) Description 09/03/2023 1:00 PM EDT Nurse Only Cardiac Rehab, [facility] [address] [place] [address] [facility], Nurse Cardiac Rehab [address] [place] [address] 09/05/2023 10:00 AM EDT Nurse Only Cardiac Rehab, [facility] [address] [place] [address] [facility], Nurse Cardiac Rehab [address] [place] [address] 09/14/2023 1:20 PM EDT Office Visit Family Practice [facility] [place] [address] [facility]ayne [facility]ena MD [facility] [place] [address] 10/02/2023 1:40 PM EDT Office Visit Rheumatology [address] [address] Timo Guzman MD [address] [place] [address], [place] [address] 04/15/2024 10:40 AM EDT Office Visit Dermatology [facility] [address] [place] [address] Jonnathan House PA-C [address] [place], [place] [phone] Health Maintenance Due Date Last Done Comments [...] D LEVEL ONCE IN A LIFETIME-USE SMARTSET# [id number] Completed 11/03/2022, 11/20/2018 Influenza Vaccine (FLU shot) [...] this encounter Medical Devices Implanted Type Area Canvas Repairer Device Identifier Shelf Expiration Date Model / Serial / Lot Cath Thermodilution 6fr - [id number] Implanted:Qty: 1 on 03/07/2023 by Armando Beltran MD at [facility] [employer] KRISTYN [id number] 10/10/2024 [id number] / / [id number] Valve Aortic Transcath Fx 34mm - [id number] Implanted:Qty: 1 on 05/03/2023 by Armando Beltran MD at [facility] [employer] [id number] 08/10/2024 EVOLUTFX- 34 / [id number] / [id number] documented as of this encounter Visit Diagnoses Diagnosis S/P TAVR (transcatheter aortic valve replacement)- Primary Heart valve replaced by other means documented in this encounter Advance Directives Documents on File Type Date Recorded Patient Animal Doctor Expl anation POLST 03/06/2022 [place] OR DERS FOR LIFE-SUSTAINING TREATMENT POLST 12/13/2021 [place] OR DERS FOR LIFE-SUSTAINING TREATMENT Latest Code [...] Direct lorenzo occurred with: Patient Care Teams Dinkey Engine Firer/Fireman Relationship Specialty Start Date End Date Dewayne Pena MD [address] [facility] [place] [address] PCP - General Family Medicine 04/30/23 documented as of this encounter
--- OUTSIDE RECORDS SUMMARY | 2023-10-08 23:07 | External Medical Summary | Summary of Care ---
Author Name Unknown Organization [facility] Address [address] [place] [address] Phone [phone] Care Team Providers Care Line Inspector Name Role Phone Dewayne Pena MD Primary Care Provider [phone] Encounter Details Date Type Department Care Team (Late st Contact Info) Description 08/28/2023 Orders Only Neurology, [facility] [address] [place] [address] Brenna Quinonez, MS [address] [place] [address] Myopathy*; Oral phase dysphagia; Peripheral [...] disease) 05/20/2019 Coronary artery disease invo lving [place] coronary artery of [place] heart without angina pectoris 03/24/2019 Nonrheumatic mitral [...] prior, see below) BCC R forehead 2008 ([facility]) Prediabetes 02/28/2021 02/01/2023 Overview: Per Prediabetes [...] 10:00 AM EDT Nurse Only Cardiac Rehab, [facility] [address] [facility] [place] [address] [facility], Nurse Cardiac Rehab [address] [facility] [place] [address] 09/14/2023 1:20 PM EDT Office Visit Family Practice [facility] [address] [place] [address] Dewayne Pena MD [address] [place] [address] 10/02/2023 1:40 PM EDT Office Visit Rheumatology [place] [address] [facility] [place] [address] Timo Guzman MD [facility] [place] [address] 04/15/2024 10:40 AM EDT Office Visit Dermatology [facility] [address] [place] [phone] Jonnathan House PA-C [address] [place] [address] Pending Results Name Type Priority Associated Diagnoses Date /Time REFERRED TEST, OTHER,(LAB USE ONLY) Lab Routine Myopathy Oral phase dysphagia Peripheral polyneuropathy 09/05/2023 9:21 AM EDT Scheduled Orders Name Type Priority Associated Diagnoses [...] D LEVEL ONCE IN A LIFETIME-USE SMARTSET# [id number] Completed 11/03/2022, 11/20/2018 Influenza Vaccine (FLU shot) [...] this encounter Medical Devices Implanted Type Area Gastroenterology Manager Device Identifier Shelf Expiration Date Model / Serial / Lot Cath Thermodilution 6fr - [id number] Implanted:Qty: 1 on 03/07/2023 by Armando Beltran MD at [facility] [employer] KRISTYN [id number] 10/10/2024 [id number] / / [id number] Valve Aortic Transcath Fx 34mm - [id number] Implanted:Qty: 1 on 05/03/2023 by Armando Beltran MD at [facility] [employer] [id number] 08/10/2024 EVOLUTFX- 34 / [id number] / [id number] documented as of this encounter Procedures Procedure Name Priority Date/Time Associated Diagnosis Comments NON-FORMULARY TEST REQUEST Routine 08/28/2023 1:45 PM EDT Myopathy Oral phase dysphagia Peripheral polyneuropathy documented in this encounter Results * NON-FORMULARY TEST REQUEST (08/28/2023 1:45 PM EDT) Saliva Saliva specimen / Unknown 08/28/2023 1:45 PM EDT 08/28/2023 1:45 PM EDT Narrative [facility] - 08/29/2023 9:40 AM EDT Laboratory testing ordered. Patient can now be collected. Approve this testing as requested. This non-formulary test request was reviewed by Aliyah Vogel DO. Saurav Serna MD LAB BLOOD ORDERABLES [facility] [address] [facility] [place] [address] documented in this encounter Visit Diagnoses Diagnosis Myopathy- Primary Myopathy, unspecified Oral phase dysphagia Dysphagia, oral phase Peripheral polyneuropathy Unspecified hereditary and idiopathic peripheral neuropathy documented in this encounter Advance Directives Documents on File Type Date Recorded Patient Circuit Design Engineer Expl anation POLST 03/06/2022 [place] OR DERS [...] Direct lorenzo occurred with: Patient Care Teams Line Inspector Relationship Specialty Start Date End Date Dewayne Pena MD [address] [place] [address] PCP - General Family Medicine 04/30/23 documented as of this encounter
--- OUTSIDE RECORDS SUMMARY | 2023-10-08 23:07 | External Medical Summary | Summary of Care ---
Author Name Unknown Organization [facility] Address [address] [place] [address] Phone [phone] Care Team Providers Care Regional Office Coordinator Name Role Phone Dewayne Pena MD Primary Care Provider [phone] Reason for Visit * Reason Comments Cardiac Rehab * Evaluate & Treat - Unlimited Visits (Within 30 days (routine)) - Authorized Specialty Diagnoses / Procedures Referred By Contac t Referred To Contact CARDIAC REHAB / Cardiology Diagnoses S/P TAVR (transcatheter aortic valve replacement) Status post cardiac surgery Jarrell, DO Camille [address] [place] [address] Referral ID Status Reason Start Date Expiration Date Visits Requested Visits Authorized [id number] Authorized Specialty Services Required 3 [phone] Encounter Details Date Type Department Care Team (Late st Contact Info) Description 08/27/2023 11:30 AM EDT Nurse Only Cardiac Rehab, [place] [address] [facility], Nurse Cardiac Rehab [address] [place] [address] Cardiac Rehab Allergies No known active allergiesdocumented [...] disease) 05/20/2019 Coronary artery disease invo lving [place] coronary artery of [place] heart without angina pectoris 03/24/2019 Nonrheumatic mitral valve stenosis 03/24/2019 H/O Hodgkin's lymphoma 07/05/2018 Acquired hypothyroidism 07/05/2018 documented as of this encounter (statuses as of 08/27/2023) Resolved Problems Problem Noted Date Diagnosed Date Resolved Date Osteoporotic fracture of left hip 09/28/2022 03/14/2023 Aortic root enlargement 07/07/2022 11/08/2022 Sinus tachycardia 03/16/2022 03/14/2023 Hx of nonmelanoma skin cancer 03/24/2021 05/14/2023 Overview: Hx MM date 2013, Depth unknown, no SLN, Location R voodoo (still no path in chart, pt confirmed that he had surgery for melanoma at that site and for BCC prior, see below) BCC R forehead 2008 ([facility]) Prediabetes 02/28/2021 02/01/2023 Overview: Per [...] Sign Reading Time Taken Comments Blood Pressure 120/62 08/27/2023 11:37 AM EDT Pulse 96 08/27/2023 11:37 AM EDT Temperature - - Respiratory Rate - - Oxygen Saturation - - Inhaled Oxygen Concentration - - Weight 64.1 kg (141 lb 6.4 oz) 08/27/2023 11:37 AM EDT Height - - Body Mass Index 18.66 08/13/2023 9:33 AM EST documented in this encounter Functional Status Functional Status Response Date of Assess ment Do you have serious difficul ty walking or climbing stairs? (5 years old or older) No 05/04/2023 documented as of this encounter Nursing Notes * Andrea Desai RN - 08/27/2023 11:38 AM EDT Patient tolerated session well, THR med without difficulty or c/o chest pain or SOB. Will continue to advance as tolerated and monitor throughout program. documented in this encounter Plan of Treatment Upcoming Encounters Date Type Department Care Team (Late st Contact Info) Description 08/29/2023 11:30 AM EDT Nurse Only Cardiac Rehab, [address] [address] [facility], Nurse Cardiac Rehab [address] [place] [address] 08/31/2023 11:30 AM EDT Nurse Only Cardiac Rehab, [address] [address] [facility], Nurse Cardiac Rehab [address] [place] [address] 09/14/2023 1:20 PM EDT Office Visit Family Practice [facility] [address] [place] [address] Dewayne Pena MD [address] [place] [address] 10/02/2023 1:40 PM EDT Office Visit Rheumatology [address] [place] [address] Timo Guzman MD [address] [place] [address] [place] [address] 04/15/2024 10:40 AM EDT Office Visit [facility] [address] [place] [phone] Jonnathan House PA-C [address] [place] [address] Health Maintenance Due Date Last Done Comments [...] D LEVEL ONCE IN A LIFETIME-USE SMARTSET# [id number] Completed 11/03/2022, 11/20/2018 Influenza Vaccine (FLU shot) [...] this encounter Medical Devices Implanted Type Area Extended Day Teacher Device Identifier Shelf Expiration Date Model / Serial / Lot Cath Thermodilution 6fr - [id number] Implanted:Qty: 1 on 03/07/2023 by Armando Beltran MD at [facility] [employer] [place]STYN [id number] 10/10/2024 [id number] / / [id number] Valve Aortic Transcath Fx 34mm - [id number] Implanted:Qty: 1 on 05/03/2023 by Armando Beltran MD at [facility] [employer] [id number] 08/10/2024 EVOLUTFX- 34 / [id number] / [id number] documented as of this encounter Visit Diagnoses Diagnosis S/P TAVR (transcatheter aortic valve replacement)- Primary Heart valve replaced by other means documented in this encounter Advance Directives Documents on File Type Date Recorded Patient Parts Sales Associate Expl anation POLST 03/06/2022 [place] OR DERS [...] Direct lorenzo occurred with: Patient Care Teams Regional Office Coordinator Relationship Specialty Start Date End Date Dewayne Pena MD [address] [facility] [place] [address] PCP - General Family Medicine 04/30/23 documented as of this encounter
--- OUTSIDE RECORDS SUMMARY | 2023-10-08 23:07 | External Medical Summary | Summary of Care ---
Author Name Unknown Organization [facility] Address [address] [place] [address] Phone [phone] Care Team Providers Care Tumblers Supervisor Name Role Phone Dewayne Pena MD Primary Care Provider [phone] Encounter Details Date Type Department Care Team (Latest Contact Info) Description 08/23/2023 10:17 AM EST - 08/23/2023 11:59 PM EST Hospital Encounter Cardiac Studies [facility], [facility] [address] [place] [address] Gjsh, Sawmill Worker [address] [place] [address] Discharge Disposition: Home - Self Care Allergies No known active allergiesdocumented as of [...] 2013, Depth unknown, no SLN, Location [facility] PSVT (paroxysmal supraventricular tachycardia) 0 12/15/2019 Raynaud's disease without gangrene 06/02/2019 Esophageal dysmotility 05/20/2019 JULIUS (obstructive sleep apnea) 05/20/2019 ILD (interstitial lung disease) 05/20/2019 Coronary artery disease invo lving soboba coronary artery of soboba heart without angina pectoris 03/24/2019 Nonrheumatic mitral [...] 2013, Depth unknown, no SLN, Location R [facility] (still no path in chart, pt confirmed that he had surgery for melanoma at that site and for BCC prior, see below) BCC R forehead 2008 ([facility]) Prediabetes 02/28/2021 02/01/2023 Overview: Per Prediabetes [...] MCG/0.3 mL, 12 YRS AND ABOVE, IM ([employer]) 03/27/2023 COVID-19, mRNA, LNP-s, PF, B ooster, 100mcg/0.5mg (Moderna) 10/13/2021,04/13/2021 Covid-19, Mrna, Lnp-s, Pf, B ivalent, 30 Mcg, IM, 12 yrs and above ([employer]) 11/09/2022,03/10/2022 PPD 12/29/2020,12/24/2018,12/03/2018 Pneumococcal Conjugate Vacc, 13 [...] 11:30 AM EDT Nurse Only Cardiac Rehab, [address] [address] [facility], Nurse Cardiac Rehab [address] [place] [address] 08/29/2023 11:30 AM EDT Nurse Only Cardiac Rehab, [address] [address] [facility], Nurse Cardiac Rehab [address] [place] [address] 08/31/2023 11:30 AM EDT Nurse Only Cardiac Rehab, [address] [address] [facility], Nurse Cardiac Rehab [address] [place] [address] 09/14/2023 1:20 PM EDT Office Visit Family Practice [facility] [address] [place] [address] Dewayne Pena MD [address] [place] [address] 10/02/2023 1:40 PM EDT Office Visit Rheumatology [place] [id number] [facility] [place] [address] Timo Guzman MD [address] [place] [address] 04/15/2024 10:40 AM EDT Office Visit Dermatology [facility] [address] [place] [address] Jonnathan House PA-C [address] [place] [address] Health Maintenance Due Date Last Done [...] D LEVEL ONCE IN A LIFETIME-USE SMARTSET# 32432 Completed 11/03/2022, 11/20/2018 Influenza Vaccine (FLU shot) [...] this encounter Medical Devices Implanted Type Area Field Care Manager Device Identifier Shelf Expiration Date Model / Serial / Lot Cath Thermodilution 6fr - [id number] Implanted:Qty: 1 on 03/07/2023 by Armando Beltran MD at [facility] [place] [employer] KRISTYN [id number] 10/10/2024 [id number] / / [id number] Valve Aortic Transcath Fx 34mm - [id number] Implanted:Qty: 1 on 05/03/2023 by Armando Beltran MD at [facility] [place] [employer] [id number] 08/10/2024 EVOLUTFX- 34 / [id number] / [id number] documented as of this encounter Visit Diagnoses Diagnosis PSVT (paroxysmal supraventricular tachycardia) Paroxysmal supraventricular tachycardia Nonrheumatic aortic valve stenosis Aortic valve disorders Mobitz type 2 second degree AV block Mobitz (type) II atrioventricular block documented in this encounter Advance Directives Documents on File Type Date Recorded Patient Medical Record Coder Expl anation POLST 03/06/2022 [place] OR DERS [...] Direct lorenzo occurred with: Patient Care Teams Tumblers Supervisor Relationship Specialty Start Date End Date Dewayne Pena MD [address] [place] [address] PCP - General Family Medicine 04/30/23 documented as of this encounter
--- OUTSIDE RECORDS SUMMARY | 2023-10-08 23:07 | External Medical Summary | Summary of Care ---
Author Name Unknown Organization [facility] Address [address] [place] [address] Phone [phone] Care Team Providers Care Poem Writer Name Role Phone Dewayne Pena MD Primary Care Provider [phone] Reason for Visit * Reason Comments Cardiac Rehab * Evaluate & Treat - Unlimited Visits (Within 30 days (routine)) - Authorized Specialty Diagnoses / Procedures Referred By Contac t Referred To Contact CARDIAC REHAB / Cardiology Diagnoses S/P TAVR (transcatheter aortic valve replacement) Status post cardiac surgery Camille Vieyra DO [address] [place] [address] Referral ID Status Reason Start Date Expiration Date Visits Requested Visits Authorized [id number] Authorized Specialty Services Required [phone] Encounter Details Date Type Department Care Team (Late st Contact Info) Description 08/20/2023 11:30 AM EST Nurse Only Cardiac Rehab, [place] [address] [facility], Nurse Cardiac Rehab [address] [place] [address] Cardiac Rehab Allergies No known active allergiesdocumented as of this encounter (statuses as of 08/20/2023) Medications Medication Sig Dispensed Refills Start Date [...] as of this encounter (statuses as of 08/20/2023) Active Problems Problem Noted Date Diagnosed Date 1st degree AV block 05/05/2023 S/P TAVR (transcatheter aortic valve replacement ) 05/03/2023 BMI less than 19,adult 03/16/2023 Senile osteoporosis 09/28/2022 Protein-calorie malnutrition 07/07/2022 Neuromuscular disorder 07/07/2022 PHT (pulmonary hypertension) 06/02/2021 Hx of melanoma of skin 03/24/2021 Overview: Hx MM date 2013, Depth unknown, no SLN, Location R nondenominational PSVT (paroxysmal supraventricular tachycardia) 0 12/15/2019 Raynaud's disease without gangrene 06/02/2019 Esophageal dysmotility 05/20/2019 JULIUS (obstructive sleep apnea) 05/20/2019 ILD (interstitial lung disease) 05/20/2019 Coronary artery disease invo lving chitimacha coronary artery of chitimacha heart without angina pectoris 03/24/2019 Nonrheumatic mitral valve stenosis 03/24/2019 H/O Hodgkin's lymphoma 07/05/2018 Acquired hypothyroidism 07/05/2018 documented as of this encounter (statuses as of 08/20/2023) Resolved Problems Problem Noted Date Diagnosed Date Resolved Date Osteoporotic fracture of left hip 09/28/2022 03/14/2023 Aortic root enlargement 07/07/2022 11/2 08/2022 Sinus tachycardia 03/16/2022 03/14/2023 Hx of nonmelanoma skin cancer 03/24/2021 05/14/2023 Overview: Hx MM date 2013, Depth unknown, no SLN, Location R nondenominational (still no path in chart, pt confirmed that he had surgery for melanoma at that site and for BCC prior, see below) BCC R forehead 2008 ([facility]) Prediabetes 02/28/2021 02/01/2023 Overview: Per Prediabetes protocol Moderate protein malnutrition 12/15/2019 03/14/2023 Ankylosing spondylitis of cervical region 12/15/2019 07/07/2022 Moderate aortic stenosis 03/24/2019 H/O atrial fibrillation with out current medication 07/05/2018 03/14/2023 documented as of this encounter (statuses as of 08/20/2023) Immunizations Name Administration Dates Next Due COVID-19 [...] Sign Reading Time Taken Comments Blood Pressure 114/62 08/20/2023 12:26 PM EST Pulse 81 08/20/2023 12:26 PM EST Temperature - - Respiratory Rate - - Oxygen Saturation - - Inhaled Oxygen Concentration - - Weight 63.5 kg (140 lb 1.6 oz) 08/20/2023 12:26 PM EST Height - - Body Mass Index 18.48 08/13/2023 9:33 AM EST documented in this encounter Functional Status Functional Status Response Date of Assess ment Do you have serious difficul ty walking or climbing stairs? (5 years old or older) No 05/04/2023 documented as of this encounter Nursing Notes * Zoraida Del Rosario RN - 08/20/2023 12:22 PM EST Patient tolerated Cardiac Rehab exercise without difficulty. Patient doing well and doing well with program. No c/o cp or sob. THR met throughout session. Pt had CPAP break over the weekend and didn't sleep well, stating he gets his part today to fix it documented in this encounter Plan of Treatment Upcoming Encounters Date Type Department Care Team (Late st Contact Info) Description 08/22/2023 11:30 AM EST Nurse Only Cardiac Rehab, [address] [address] Gj, Nurse Cardiac Rehab [address] [place] [address] 08/23/2023 1:30 PM EST Appointment Cardiac Studies 1st Fl, [address] [address] Gjsh, Health And Safety Manager [address] [place] [address] 08/24/2023 11:30 AM EST Nurse Only Cardiac Rehab, [address] [address] Gj, Nurse Cardiac Rehab [address] [place] [address] 08/27/2023 11:30 AM EDT Nurse Only Cardiac Rehab, [address] [address] Gjsh, Nurse Cardiac Rehab [address] [place] [address] 08/29/2023 11:30 AM EDT Nurse Only Cardiac Rehab, [address] [address] Gjsh, Nurse Cardiac Rehab [address] [place] [address] 08/31/2023 11:30 AM EDT Nurse Only Cardiac Rehab, [facility] [place] [address] [place] [address] [facility], Nurse Cardiac Rehab [address] [place] [address] 09/14/2023 1:20 PM EDT Office Visit Family Practice [facility] [address] [place] [address] Dewayne Pena MD [address] [place] [address] 10/02/2023 1:40 PM EDT Office Visit Rheumatology [place] [address] [facility] [address] Timo Guzman MD [facility] [employer] [address] 04/15/2024 10:40 AM EDT Office Visit Dermatology [facility] [address] [place] [phone] Jonnathan House PA-C [address] [place] [address] Health Maintenance Due Date Last [...] D LEVEL ONCE IN A LIFETIME-USE SMARTSET# [id number] Completed 11/03/2022, 11/20/2018 Influenza Vaccine (FLU shot) [...] this encounter Medical Devices Implanted Type Area Razor Grinder Device Identifier Shelf Expiration Date Model / Serial / Lot Cath Thermodilution 6fr - [id number] Implanted:Qty: 1 on 03/07/2023 by Armando Beltran MD at [facility] [place] [employer] KRISTYN [id number] 10/10/2024 [id number] / / [id number] Valve Aortic Transcath Fx 34mm - [id number] Implanted:Qty: 1 on 05/03/2023 by Armando Beltran MD [place] [facility] [place] [employer] [id number] 08/10/2024 EVOLUTFX- 34 / [id number] / [id number] documented as of this encounter Visit Diagnoses Diagnosis S/P TAVR (transcatheter aortic valve replacement)- Primary Heart valve replaced by other means documented in this encounter Advance Directives Documents on File Type Date Recorded 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
--- OUTSIDE RECORDS SUMMARY | 2023-10-08 23:08 | External Medical Summary | Summary of Care ---
Author Name Unknown Organization [facility] Address [address] [place] [address] Phone [phone] Care Team Providers Care Authorizer Name Role Phone Dewayne Pena MD Primary Care Provider [phone] Reason for Visit * Reason Comments Cardiac Rehab * Evaluate & Treat - Unlimited Visits (Within 30 days (routine)) - Authorized Specialty Diagnoses / Procedures Referred By Contac t Referred To Contact CARDIAC REHAB / Cardiology Diagnoses S/P TAVR (transcatheter aortic valve replacement) Status post cardiac surgery Camille Vieyra DO [address] [place] [address] Referral ID Status Reason Start Date Expiration Date Visits Requested Visits Authorized [id number] Authorized Specialty Services Required [phone] Encounter Details Date Type Department Care Team (Late st Contact Info) Description 08/10/2023 11:30 AM EST Nurse Only Cardiac [place], [place] [address] [facility], Nurse Cardiac Rehab [address] [place] [address] Cardiac Rehab (/) Allergies No known active allergiesdocumented as of this encounter (statuses as of 08/10/2023) Medications Medication Sig Dispensed Refills Start Date [...] as of this encounter (statuses as of 08/10/2023) Active Problems Problem Noted Date Diagnosed Date 1st degree AV block 05/05/2023 S/P TAVR (transcatheter aortic valve replacement ) 05/03/2023 BMI less than 19,adult 03/16/2023 Senile osteoporosis 09/28/2022 Protein-calorie malnutrition 07/07/2022 Neuromuscular disorder 07/07/2022 PHT (pulmonary hypertension) 06/02/2021 Hx of melanoma of skin 03/24/2021 Overview: Hx MM date 2013, Depth unknown, no SLN, Location R sikh PSVT (paroxysmal supraventricular tachycardia) 0 12/15/2019 Raynaud's disease without gangrene 06/02/2019 Esophageal dysmotility 05/20/2019 JULIUS (obstructive sleep apnea) 05/20/2019 ILD (interstitial lung disease) 05/20/2019 Coronary artery disease invo lving yocha dehe coronary artery of yocha dehe heart without angina pectoris 03/24/2019 Nonrheumatic mitral valve stenosis 03/24/2019 H/O Hodgkin's lymphoma 07/05/2018 Acquired hypothyroidism 07/05/2018 documented as of this encounter (statuses as of 08/10/2023) Resolved Problems Problem Noted Date Diagnosed Date Resolved Date Osteoporotic fracture of left hip 09/28/2022 03/14/2023 Aortic root enlargement 07/07/2022 11/08/2022 Sinus tachycardia 03/16/2022 03/14/2023 Hx of nonmelanoma skin cancer 03/24/2021 05/14/2023 Overview: Hx MM date 2013, Depth unknown, no SLN, Location R sikh (still no path in chart, pt confirmed that he had surgery for melanoma at that site and for BCC prior, see below) BCC R forehead 2008 ([facility]) Prediabetes 02/28/2021 02/01/2023 Overview: Per Prediabetes protocol Moderate protein malnutrition 12/15/2019 03/14/2023 Ankylosing spondylitis of cervical region 12/15/2019 07/07/2022 Moderate aortic stenosis 03/24/2019 H/O atrial fibrillation with out current medication 07/05/2018 03/14/2023 documented as of this encounter (statuses as of 08/10/2023) Immunizations Name Administration Dates Next Due COVID-19 mRNA, LNP-s, No Pre serve, 2-Dose Series (Moderna) 08/21/2020,07/17/2020 COVID-19, MRNA-LNP, 23-24, P F, 30 MCG/0.3 mL, 12 YRS AND ABOVE, IM ([employer]) 03/27/2023 COVID-19, mRNA, LNP-s, PF, B [...] Sign Reading Time Taken Comments Blood Pressure 122/68 08/10/2023 11:43 AM EST Pulse 94 08/10/2023 11:43 AM EST Temperature - - Respiratory Rate - - Oxygen Saturation - - Inhaled Oxygen Concentration - - Weight 63.9 kg (140 lb 14.4 oz) 024 11:43 AM EST Height - - Body Mass Index 18.59 07/09/2023 2:11 PM EST documented in this encounter Functional Status Functional Status Response Date of Assess ment Do you have serious difficul ty walking or climbing stairs? (5 years old or older) No 05/04/2023 documented as of this encounter Nursing Notes * Zoraida Del Rosario RN - 08/10/2023 11:44 AM EST Patient tolerated Cardiac Rehab exercise without difficulty. Chantel has upcoming appointment Sunday with cardiology 08/13 and will miss session here documented in this encounter Plan of Treatment Upcoming Encounters Date Type Department Care Team (Late st Contact Info) Description 08/13/2023 10:00 AM EST Office Visit Cardiology [facility] [address] [place] [address] Denny Fuentes CRNP [address] [place], [place] [id number] 08/15/2023 11:30 AM EST Nurse Only Cardiac Rehab, [address] [address] Gjsh, Nurse Cardiac Rehab [address] [place] [address] 08/17/2023 11:30 AM EST Nurse Only Cardiac Rehab, [address] [address] Gjsh, Nurse Cardiac Rehab [address] [place] [address] 08/20/2023 11:30 AM EST Nurse Only Cardiac Rehab, [address] [address] Gjsh, Nurse Cardiac Rehab [address] [place] [address] 08/22/2023 11:30 AM EST Nurse Only Cardiac Rehab, [address] [address] Gjsh, Nurse Cardiac Rehab [address] [place] [address] 08/24/2023 11:30 AM EST Nurse Only Cardiac Rehab, [address] [address] Gjsh, Nurse Cardiac Rehab [address] [facility] [place] [address] 08/27/2023 11:30 AM EDT Nurse Only Cardiac Rehab, [facility] [address] [place] [address] Gjsh, Nurse Cardiac Rehab [address] [facility] [place] [address] 08/29/2023 11:30 AM EDT Nurse Only Cardiac Rehab, [facility] [address] [place] [address], [place] [address] Gjsh, Nurse Cardiac Rehab [address] [facility] [place] [address] 08/31/2023 11:30 AM EDT Nurse Only Cardiac Rehab, [facility] [address] [place] [address] Gjsh, Nurse Cardiac Rehab [address] [facility] [place] [address] 09/14/2023 1:20 PM EDT Office Visit Family Practice [facility] 132 [facility] [place] [address] Dewayne Pena MD 132 [facility] [place] [address] 10/02/2023 1:40 PM EDT Office Visit Rheumatology [address] [place] [address] Timo Guzman MD [facility] [employer] [facility] [place] [address] 04/15/2024 10:40 AM EDT Office Visit Dermatology [facility] [address] [place] [address] Jonnathan House PA-C [address] [place] [address] Health Maintenance Due Date Last Done [...] D LEVEL ONCE IN A LIFETIME-USE SMARTSET# [id number] Completed 11/03/2022, 11/20/2018 Influenza Vaccine (FLU shot) [...] this encounter Medical Devices Implanted Type Area Assurance Auditor Device Identifier Shelf Expiration Date Model / Serial / Lot Cath Thermodilution 6fr - [id number] Implanted:Qty: 1 on 03/07/2023 by Armando Beltran MD at [facility] [place] [employer] [place]STYN [id number] 10/10/2024 [id number] / / [id number] Valve Aortic Transcath Fx 34mm - [id number] Implanted:Qty: 1 on 05/03/2023 by Armando Beltran MD at [facility] [place] [employer] [id number] 08/10/2024 EVOLUTFX- 34 / [id number] / [id number] documented as of this encounter Visit Diagnoses Diagnosis S/P TAVR (transcatheter aortic valve replacement)- Primary Heart valve replaced by other means documented in this encounter Advance Directives Documents on File Type Date Recorded 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
--- OUTSIDE RECORDS SUMMARY | 2023-10-08 23:08 | External Medical Summary | Summary of Care ---
Author Name Unknown Organization [facility] Address [address] [place] [address] Phone [phone] Care Team Providers Care Certified Dialysis Technician Name Role Phone Dewayne Pena MD Primary Care Provider +1 [phone] Reason for Visit * Reason Comments Cardiac Rehab * Evaluate & Treat - Unlimited Visits (Within 30 days (routine)) - Authorized Specialty Diagnoses / Procedures Referred By Contac t Referred To Contact CARDIAC REHAB / Cardiology Diagnoses S/P TAVR (transcatheter aortic valve replacement) Status post cardiac surgery Camille Vieyra DO [address] [place] [address] Referral ID Status Reason Start Date Expiration Date Visits Requested Visits Authorized [id number] Authorized Specialty Services Required 3 [phone] Encounter Details Date Type Department Care Team (Late st Contact Info) Description 08/06/2023 11:30 AM EST Nurse Only Cardiac Rehab, [place] [address] [facility], Nurse Cardiac Rehab [address] [place] [address] Cardiac Rehab (/) Allergies No known active allergiesdocumented as of this encounter (statuses as of 08/06/2023) Medications Medication Sig Dispensed Refills Start Date [...] 1 Capsule before bedtime. 0 06/27/2023 Active COVID-19 mRNA Vaccine 12 years and above Pfizer 30 MCG/0.3 ML IM SUSP Inject into a large muscle. 0.3 mL 0 08/06/2023 Active documented as of this encounter (statuses as of 08/06/2023) Active Problems Problem Noted Date Diagnosed Date 1st degree AV block 05/05/2023 S/P TAVR (transcatheter aortic valve replacement ) 05/03/2023 BMI less than 19,adult 03/16/2023 Senile osteoporosis 09/28/2022 Protein-calorie malnutrition 07/07/2022 Neuromuscular disorder 07/07/2022 PHT (pulmonary hypertension) 06/02/2021 Hx of melanoma of skin 03/24/2021 Overview: Hx MM date 2013, Depth unknown, no SLN, Location R hoahaoism PSVT (paroxysmal supraventricular tachycardia) 0 12/15/2019 Raynaud's disease without gangrene 06/02/2019 Esophageal dysmotility 05/20/2019 JULIUS (obstructive sleep apnea) 05/20/2019 ILD (interstitial lung disease) 05/20/2019 Coronary artery disease invo lving [place] coronary artery of [place] heart without angina pectoris 03/24/2019 Nonrheumatic mitral valve stenosis 03/24/2019 H/O Hodgkin's lymphoma 07/05/2018 Acquired hypothyroidism 07/05/2018 documented as of this encounter (statuses as of 08/06/2023) Resolved Problems Problem Noted Date Diagnosed Date Resolved Date Osteoporotic fracture of left hip 09/28/2022 03/14/2023 Aortic root enlargement 07/07/2022 11/2 08/2022 Sinus tachycardia 03/16/2022 03/14/2023 Hx of nonmelanoma skin cancer 03/24/2021 05/14/2023 Overview: Hx MM date 2013, Depth unknown, no SLN, Location R hoahaoism (still no path in chart, pt confirmed that he had surgery for melanoma at that site and for BCC prior, see below) BCC R forehead 2008 ([facility]) Prediabetes 02/28/2021 02/01/2023 Overview: Per Prediabetes protocol Moderate protein malnutrition 12/15/2019 03/14/2023 Ankylosing spondylitis of cervical region 12/15/2019 07/07/2022 Moderate aortic stenosis 03/24/2019 H/O atrial fibrillation with out current medication 07/05/2018 03/14/2023 documented as of this encounter (statuses as of 08/06/2023) Immunizations Name Administration Dates Next Due COVID-19 mRNA, LNP-s, No Pre serve, 2-Dose Series (Moderna) 08/21/2020,07/17/2020 COVID-19, MRNA-LNP, 23-24, P F, 30 MCG/0.3 mL, 12 YRS AND ABOVE, IM ([employer]) 03/27/2023 COVID-19, mRNA, LNP-s, PF, B ooster, [...] Sign Reading Time Taken Comments Blood Pressure 118/68 08/06/2023 12:21 PM EST Pulse 94 08/06/2023 12:21 PM EST Temperature - - Respiratory Rate - - Oxygen Saturation - - Inhaled Oxygen Concentration - - Weight 63.5 kg (139 lb 14.4 oz) 024 12:21 PM EST Height - - Body Mass Index 18.46 07/09/2023 2:11 PM EST documented in this encounter Functional Status Functional Status Response Date of Assess ment Do you have serious difficul ty walking or climbing stairs? (5 years old or older) No 05/04/2023 documented as of this encounter Nursing Notes * Zoraida Del Rosario RN - 08/06/2023 12:21 PM EST Patient tolerated Cardiac Rehab exercise without difficulty. Patient doing well no c/o cp or sob. THR and exceeded throughout session, often has boughts of SVT today noted to go to 170. Did well, and recovered fast. Ep appointment Sunday documented in this encounter Plan of Treatment Upcoming Encounters Date Type Department Care Team (Late st Contact Info) Description 08/08/2023 11:30 AM EST Nurse Only Cardiac Rehab, [address] [address] sh, Nurse Cardiac Rehab [address] [place] [address] 08/10/2023 11:30 AM EST Nurse Only Cardiac Rehab, [address] [address] Gj, Nurse Cardiac Rehab [address] [place] [address] 08/13/2023 10:00 AM EST Office Visit Cardiology [facility] [address] [place], [place] [id number] Denny Fuentes CRNP [address], [place] [id number] 08/13/2023 11:30 AM EST Nurse Only Cardiac Rehab, [address] [address] Gj, Nurse Cardiac Rehab [address] [place] [address] 08/15/2023 11:30 AM EST Nurse Only Cardiac Rehab, [address] [address] Gjsh, Nurse Cardiac Rehab [address] [facility] [place] [address] 08/17/2023 11:30 AM EST Nurse Only Cardiac Rehab, [facility] [address] [facility] [place] [address] Gjsh, Nurse Cardiac Rehab [address] [facility] [place] [address] 08/20/2023 11:30 AM EST Nurse Only Cardiac Rehab, [facility] [address] [facility] [place] [address] Gjsh, Nurse Cardiac Rehab [facility] [place] [address] 08/22/2023 11:30 AM EST Nurse Only Cardiac Rehab, [address] [place] [address] Gjsh, Nurse Cardiac Rehab [address] [place] [address], [place] [address] 08/24/2023 11:30 AM EST Nurse Only Cardiac Rehab, [facility] [address] [place] [address], [place] [address] Gjsh, Nurse Cardiac Rehab [address] [place] [address], [place] [address] 08/27/2023 11:30 AM EDT Nurse Only Cardiac Rehab, [address] [place] [address] Gjsh, Nurse Cardiac Rehab [address] [place] [address], [place] [address] 08/29/2023 11:30 AM EDT Nurse Only Cardiac Rehab, [address] [place] [address] Gjsh, Nurse Cardiac Rehab [address] [place] [address], [place] [address] 09/14/2023 1:20 PM EDT Office Visit [facility] [address] [place] [address] Dewayne Pena MD [address] [place] [address] 10/02/2023 1:40 PM EDT Office Visit Rheumatology [address] [place] [address] Timo Guzman MD [address] [place] [address] [place] [address] 04/15/2024 10:40 AM EDT Office Visit Dermatology [facility] [address] [place] [address] Jonnathan House PA-C [address] [place] [address] Health Maintenance Due Date Last Done Comments [...] D LEVEL ONCE IN A LIFETIME-USE SMARTSET# [id number] Completed 11/03/2022, 11/20/2018 Influenza Vaccine (FLU shot) [...] this encounter Medical Devices Implanted Type Area Coding Advisor Device Identifier Shelf Expiration Date Model / Serial / Lot Cath Thermodilution 6fr - [id number] Implanted:Qty: 1 on 03/07/2023 by Armando Beltran MD at [facility] [employer] KRISTYN [id number] 10/10/2024 [id number] / / [id number] Valve Aortic Transcath Fx 34mm - [id number] Implanted:Qty: 1 on 05/03/2023 by Armando Beltran MD at [facility] [employer] [id number] 08/10/2024 EVOLUTFX- 34 / [id number] / [id number] documented as of this encounter Visit Diagnoses Diagnosis S/P TAVR (transcatheter aortic valve replacement)- Primary Heart valve replaced by other means documented in this encounter Advance Directives Documents on File Type Date Recorded 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
--- OUTSIDE RECORDS SUMMARY | 2023-10-08 23:08 | External Medical Summary | Summary of Care ---
Author Name Unknown Organization [facility] Address [address] [place] [address] Phone [phone] Care Team Providers Care Social Insurance Analyst Name Role Phone Dewayne Pena MD Primary Care Provider [phone] [phone] Encounter Details Date Type Department Care Team (Late st Contact Info) Description 08/10/2023 Orders Only Cardiology [facility] [address] [place] [address] Denny Fuentes CRNP [address] [place] [address] PSVT (paroxysmal supraventricular tachycardia)* Allergies No known active allergiesdocumented as of [...] 2013, Depth unknown, no SLN, Location R roman catholic PSVT (paroxysmal supraventricular tachycardia) 0 12/15/2019 Raynaud's disease without gangrene 06/02/2019 Esophageal dysmotility 05/20/2019 JULIUS (obstructive sleep apnea) 05/20/2019 ILD (interstitial lung disease) 05/20/2019 Coronary artery disease invo lving [place] coronary artery of [place] heart without angina pectoris 03/24/2019 Nonrheumatic [...] 2013, Depth unknown, no SLN, Location R roman catholic (still no path in chart, pt confirmed that he had surgery for melanoma at that site and for BCC prior, see below) BCC R forehead 2008 ([facility]) Prediabetes 02/28/2021 02/01/2023 Overview: Per Prediabetes [...] 08/13/2023 10:00 AM EST Office Visit Cardiology [facility] [address] [place] [address] Denny Fuentes CRNP [address] [place] [address] 08/15/2023 11:30 AM EST Nurse Only Cardiac Rehab, [address] [address] [facility], Nurse Cardiac Rehab [address] [place] [address] 08/17/2023 11:30 AM EST Nurse Only Cardiac Rehab, [address] [address] [facility], Nurse Cardiac Rehab [address] [place] [address] 08/20/2023 11:30 AM EST Nurse Only Cardiac Rehab, [address] [place] [address] Gjsh, Nurse Cardiac Rehab [address] [place] [address], [place] [address] 08/22/2023 11:30 AM EST Nurse Only Cardiac Rehab, [address] [place] [address] Gjsh, Nurse Cardiac Rehab [address] [place] [address], [place] [address] 08/24/2023 11:30 AM EST Nurse Only Cardiac Rehab, [address] [place] [address] Gjsh, Nurse Cardiac Rehab [address] [place] [address], [place] [address] 08/27/2023 11:30 AM EDT Nurse Only Cardiac Rehab, [address] [place] [address] Gjsh, Nurse Cardiac Rehab [address] [place] [address], [place] [address] 08/29/2023 11:30 AM EDT Nurse Only Cardiac Rehab, [address] [place] [address] Gjsh, Nurse Cardiac Rehab [address] [place] [address], [place] [address] 08/31/2023 11:30 AM EDT Nurse Only Cardiac Rehab, [address] [place] [address] Gjsh, Nurse Cardiac Rehab [address] [place] [address], [place] [address] 09/14/2023 1:20 PM EDT Office Visit [facility] [address] [place] [address] Dewayne Pena MD [address] [place] [address] 10/02/2023 1:40 PM EDT Office Visit Rheumatology [place] [id number] [facility] [place] [address] Timo Guzman MD [address] [facility] [place] [address] 04/15/2024 10:40 AM EDT Office Visit Dermatology [facility] [address] [place] [address] Jonnathan House PA-C [address] [place] [address] Scheduled Orders Name Type Priority Associated Diagnoses Orde r Schedule EKG EKG Routine PSVT (paroxysmal supraventricular tachycardia) Expected: 08/11/2023 (Approximate), Expires: 08/10/2024 Health Maintenance Due Date Last Done Comments [...] D LEVEL ONCE IN A LIFETIME-USE SMARTSET# [id number] Completed 11/03/2022, 11/20/2018 Influenza Vaccine (FLU shot) [...] this encounter Medical Devices Implanted Type Area Care Transition Coordinator Device Identifier Shelf Expiration Date Model / Serial / Lot Cath Thermodilution 6fr - [id number] Implanted:Qty: 1 on 03/07/2023 by Armando Beltran MD [place] [facility] [employer] KRISTYN [id number] 10/10/2024 [id number] / / [id number] Valve Aortic Transcath Fx 34mm - [id number] Implanted:Qty: 1 on 05/03/2023 by Armando Beltran MD at [facility] [employer] [id number] 08/10/2024 EVOLUTFX- 34 / [id number] / [id number] documented as of this encounter Visit Diagnoses Diagnosis PSVT (paroxysmal supraventricular tachycardia)- Primary Paroxysmal supraventricular tachycardia documented in this encounter Advance Directives Documents on File Type Date Recorded 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
--- OUTSIDE RECORDS SUMMARY | 2023-10-08 23:08 | External Medical Summary | Summary of Care ---
Author Name Unknown Organization [facility] Address [address] [place] [address] Phone [phone] Care Team Providers Care Chicken Handler Name Role Phone Dewayne Pena MD Primary Care Provider +1 [phone] Reason for Visit * Reason Comments Cardiac Rehab Encounter Details Date Type Department Care Team (Late st Contact Info) Description 07/30/2023 11:30 AM EST Nurse Only Cardiac Rehab, [facility] [address] [place] [address] [facility], Nurse Cardiac Rehab [address] [place] [address] Cardiac Rehab Allergies No known active allergiesdocumented as of this encounter (statuses as of 07/30/2023) Medications Medication Sig Dispensed Refills Start Date [...] as of this encounter (statuses as of 07/30/2023) Active Problems Problem Noted Date Diagnosed Date 1st degree AV block 05/05/2023 S/P TAVR (transcatheter aortic valve replacement ) 05/03/2023 BMI less than 19,adult 03/16/2023 Senile osteoporosis 09/28/2022 Protein-calorie malnutrition 07/07/2022 Neuromuscular disorder 07/07/2022 PHT (pulmonary hypertension) 06/02/2021 Hx of melanoma of skin 03/24/2021 Overview: Hx MM date 2013, Depth unknown, no SLN, Location R worship PSVT (paroxysmal supraventricular tachycardia) 0 12/15/2019 Raynaud's disease without gangrene 06/02/2019 Esophageal dysmotility 05/20/2019 JULIUS (obstructive sleep apnea) 05/20/2019 ILD (interstitial lung disease) 05/20/2019 Coronary artery disease invo lving [place] coronary artery of [place] heart without angina pectoris 03/24/2019 Nonrheumatic mitral valve stenosis 03/24/2019 H/O Hodgkin's lymphoma 07/05/2018 Acquired hypothyroidism 07/05/2018 documented as of this encounter (statuses as of 07/30/2023) Resolved Problems Problem Noted Date Diagnosed Date Resolved Date Osteoporotic fracture of left hip 09/28/2022 03/14/2023 Aortic root enlargement 07/07/2022 11/2 08/2022 Sinus tachycardia 03/16/2022 03/14/2023 Hx of nonmelanoma skin cancer 03/24/2021 05/14/2023 Overview: Hx MM date 2013, Depth unknown, no SLN, Location R worship (still no path in chart, pt confirmed that he had surgery for melanoma at that site and for BCC prior, see below) BCC R forehead 2008 ([facility]) Prediabetes 02/28/2021 02/01/2023 Overview: Per Prediabetes protocol Moderate protein malnutrition 12/15/2019 03/14/2023 Ankylosing spondylitis of cervical region 12/15/2019 07/07/2022 Moderate aortic stenosis 03/24/2019 H/O atrial fibrillation with out current medication 07/05/2018 03/14/2023 documented as of this encounter (statuses as of 07/30/2023) Immunizations Name Administration Dates Next Due COVID-19 mRNA, LNP-s, No Pre serve, 2-Dose Series (Moderna) 08/21/2020,07/17/2020 COVID-19, MRNA-LNP, 23-24, P F, 30 MCG/0.3 mL, 12 YRS AND ABOVE, IM ([place]) 03/27/2023 COVID-19, mRNA, LNP-s, PF, B ooster, [...] Date Smoking Tobacco: Former Cigarettes 1 10 Q uit: 06/18/1977 Smokeless Tobacco: Never Alcohol Use Standard [...] Sign Reading Time Taken Comments Blood Pressure 126/68 07/30/2023 11:30 AM EST Pulse 105 07/30/2023 11:30 AM EST Temperature - - Respiratory Rate - - Oxygen Saturation - - Inhaled Oxygen Concentration - - Weight 63.3 kg (139 lb 8 oz) 07/30/2023 11:30 AM EST Height - - Body Mass Index 18.4 07/09/2023 2:11 PM EST documented in this encounter Functional Status Functional Status Response Date of Assess ment Do you have serious difficul ty walking or climbing stairs? (5 years old or older) No 05/04/2023 documented as of this encounter Nursing Notes * Andrea Desai, RICHIE - 07/30/2023 11:31 AM EST Patient tolerated session well, THR med without difficulty or c/o chest pain or SOB. Will continue to advance as tolerated and monitor throughout program. documented in this encounter Plan of Treatment Upcoming Encounters Date Type Department Care Team (Late st Contact Info) Description 08/01/2023 11:30 AM EST Nurse Only Cardiac Rehab, [facility] [address] [place] [address] Gjsh, Nurse Cardiac Rehab [address] [facility] [place] [address] 08/03/2023 11:30 AM EST Nurse Only Cardiac Rehab, [facility] [address] [place] [address] Gjsh, Nurse Cardiac Rehab [facility] [place] [address] 08/06/2023 11:30 AM EST Nurse Only Cardiac Rehab, [facility] [address] [place] [address], [place] [address] Gjsh, Nurse Cardiac Rehab [address] [place] [address], [place] [address] 08/08/2023 11:30 AM EST Nurse Only Cardiac Rehab, [address] [place] [address] Gjsh, Nurse Cardiac Rehab [address] [place] [address], [place] [address] 08/10/2023 11:30 AM EST Nurse Only Cardiac Rehab, [address] [place] [address] Gjsh, Nurse Cardiac Rehab [address] [place] [address], [place] [address] 08/13/2023 11:30 AM EST Nurse Only Cardiac Rehab, [facility] [address] [place] [address], [place] [address] Gjsh, Nurse Cardiac Rehab [address] [place] [address], [place] [address] 08/15/2023 11:30 AM EST Nurse Only Cardiac Rehab, [address] [place] [address] Gjsh, Nurse Cardiac Rehab [address] [place] [address], [place] [address] 08/17/2023 11:30 AM EST Nurse Only Cardiac Rehab, [facility] [address] [facility] [address] Gjsh, Nurse Cardiac Rehab [address] [facility] [address] 08/20/2023 11:30 AM EST Nurse Only Cardiac Rehab, [facility] [address] [facility] [address] Gjsh, Nurse Cardiac Rehab [facility] [place] [address] 08/21/2023 2:15 PM EST Office Visit Cardiology, [facility] 132 [facility] [place] [address] Izzy Patiño, [address] [address] 08/22/2023 11:30 AM EST Nurse Only Cardiac Rehab, [place] [id number] [facility] [address] Gjsh, Nurse Cardiac Rehab [address] [place] [address], [place] [address] 08/24/2023 11:30 AM EST Nurse Only Cardiac Rehab, [address] [place] [address] Gjsh, Nurse Cardiac Rehab [address] [place] [address], [place] [address] 08/27/2023 11:30 AM EDT Nurse Only Cardiac Rehab, [address] [place] [address] Gjsh, Nurse Cardiac Rehab [address] [place] [address], [place] [address] 08/29/2023 11:30 AM EDT Nurse Only Cardiac Rehab, [address] [place] [address] Gjsh, Nurse Cardiac Rehab [address] [place] [address], [place] [address] 09/14/2023 1:20 PM EDT Office Visit Family Practice [facility] [address] [place] [address] Dewayne Pena MD [address] [place] [address] 10/02/2023 1:40 PM EDT Office Visit Rheumatology [place] [address] [facility] [place] [address] Timo Guzman MD [facility] [place] [address] 04/15/2024 10:40 AM EDT Office Visit Dermatology [facility] [address] [place] [address] Jonnathan House PA-C [address] [place] [address] Health Maintenance Due Date Last Done Comments MENINGOCOCCAL (MENACTRA/MENVEO) (1 - Risk 2-dose series) 09/23/1952 Meningitis B Vaccine (Bexsero/Trumemba) (1 of 4 - Increased Risk) 09/23/1959 Colonoscopy 1994 Fecal Occult Blood Test 1994 [...] D LEVEL ONCE IN A LIFETIME-USE SMARTSET# [id number] Completed 11/03/2022, 11/20/2018 Influenza Vaccine (FLU shot) [...] this encounter Medical Devices Implanted Type Area Skating Rink Manager Device Identifier Shelf Expiration Date Model / Serial / Lot Cath Thermodilution 6fr - [id number] Implanted:Qty: 1 on 03/07/2023 by Armando Beltran MD at [facility] [employer] KRISTYN [id number] 10/10/2024 [id number] / / [id number] Valve Aortic Transcath Fx 34mm - [id number] Implanted:Qty: 1 on 05/03/2023 by Armando Beltran MD at 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
--- OUTSIDE RECORDS SUMMARY | 2023-10-08 23:08 | External Medical Summary | Summary of Care ---
Author Name Unknown Organization [facility] Address [address] [place] [address] Phone [phone] Care Team Providers Care Shake Sawyer Name Role Phone Dewayne Pena MD Primary Care Provider [phone] [phone] Reason for Visit * Reason Comments Cardiac Rehab Encounter Details Date Type Department Care Team (Late st Contact Info) Description 07/27/2023 11:30 AM EST Nurse Only Cardiac Rehab, [facility] [address] [place] [address] [facility], Nurse Cardiac Rehab [address] [place] [address] Cardiac Rehab Allergies No known active allergiesdocumented as of this encounter (statuses as of 07/27/2023) Medications Medication Sig Dispensed Refills Start Date [...] as of this encounter (statuses as of 07/27/2023) Active Problems Problem Noted Date Diagnosed Date 1st degree AV block 05/05/2023 S/P TAVR (transcatheter aortic valve replacement ) 05/03/2023 BMI less than 19,adult 03/16/2023 Senile osteoporosis 09/28/2022 Protein-calorie malnutrition 07/07/2022 Neuromuscular disorder 07/07/2022 PHT (pulmonary hypertension) 06/02/2021 Hx of melanoma of skin 03/24/2021 Overview: Hx MM date 2013, Depth unknown, no SLN, Location R restorationism PSVT (paroxysmal supraventricular tachycardia) 0 12/15/2019 Raynaud's disease without gangrene 06/02/2019 Esophageal dysmotility 05/20/2019 JULIUS (obstructive sleep apnea) 05/20/2019 ILD (interstitial lung disease) 05/20/2019 Coronary artery disease invo lving [place] coronary artery of [place] heart without angina pectoris 03/24/2019 Nonrheumatic mitral valve stenosis 03/24/2019 H/O Hodgkin's lymphoma 07/05/2018 Acquired hypothyroidism 07/05/2018 documented as of this encounter (statuses as of 07/27/2023) Resolved Problems Problem Noted Date Diagnosed Date Resolved Date Osteoporotic fracture of left hip 09/28/2022 03/14/2023 Aortic root enlargement 07/07/2022 11/2 08/2022 Sinus tachycardia 03/16/2022 03/14/2023 Hx of nonmelanoma skin cancer 03/24/2021 05/14/2023 Overview: Hx MM date 2013, Depth unknown, no SLN, Location R restorationism (still no path in chart, pt confirmed that he had surgery for melanoma at that site and for BCC prior, see below) BCC R forehead 2008 ([facility]) Prediabetes 02/28/2021 02/01/2023 Overview: Per Prediabetes protocol Moderate protein malnutrition 12/15/2019 03/14/2023 Ankylosing spondylitis of cervical region 12/15/2019 07/07/2022 Moderate aortic stenosis 03/24/2019 H/O atrial fibrillation with out current medication 07/05/2018 03/14/2023 documented as of this encounter (statuses as of 07/27/2023) Immunizations Name Administration Dates Next Due COVID-19 mRNA, LNP-s, No Pre serve, 2-Dose Series (Moderna) 08/21/2020,07/17/2020 COVID-19, MRNA-LNP, 23-24, P F, 30 MCG/0.3 mL, 12 YRS AND ABOVE, IM ([facility] 03/27/2023 COVID-19, mRNA, LNP-s, PF, B ooster, [...] Reading Time Taken Comments Blood Pressure 122/62 07/27/2023 11:49 AM EST Pulse 64 07/27/2023 11:49 AM EST Temperature - - Respiratory Rate - - Oxygen Saturation - - Inhaled Oxygen Concentration - - Weight 63 kg (138 lb 14.4 oz) 07/27/2023 11:49 A M EST Height - - Body Mass Index 18.33 07/09/2023 2:11 PM EST documented in this encounter Functional Status Functional Status Response Date of Assess ment Do you have serious difficul ty walking or climbing stairs? (5 years old or older) No 05/04/2023 documented as of this encounter Nursing Notes * Zoraida Del Rosario RN - 07/27/2023 11:50 AM EST Patient tolerated Cardiac Rehab exercise without difficulty. Patient doing well ate many fruits and veggies since last visit, doing well with continuing exercise at home. No c/o cp or sob. Pt has went into SVT at times and did well today. documented in this encounter Plan of Treatment Upcoming Encounters Date Type Department Care Team (Late st Contact Info) Description 07/30/2023 11:30 AM EST Nurse Only Cardiac Rehab, [facility] [address] [place] [address] [facility], Nurse Cardiac Rehab [address] [place] [address] 08/01/2023 11:30 AM EST Nurse Only Cardiac Rehab, [address] [place] [address] [facility], Nurse Cardiac Rehab [address] [place] [address], [place] [address] 08/03/2023 11:30 AM EST Nurse Only Cardiac Rehab, [address] [place] [address] [facility], Nurse Cardiac Rehab [address] [place] [address], [place] [address] 08/06/2023 11:30 AM EST Nurse Only Cardiac Rehab, [place] [id number] [place] [address] [facility], Nurse Cardiac Rehab [address] [place] [address], [place] [address] 08/08/2023 11:30 AM EST Nurse Only Cardiac Rehab, [address] [place] [address] [facility], Nurse Cardiac Rehab [address] [place] [address], [place] [address] 08/10/2023 11:30 AM EST Nurse Only Cardiac Rehab, [address] [place] [address] [facility], Nurse Cardiac Rehab [address] [place] [address], [place] [address] 08/13/2023 11:30 AM EST Nurse Only Cardiac Rehab, [address] [place] [address] [facility], Nurse Cardiac Rehab [address] [place] [address], [place] [address] 08/15/2023 11:30 AM EST Nurse Only Cardiac Rehab, [address] [place] [address] [facility], Nurse Cardiac Rehab [address] [place] [address], [place] [address] 08/17/2023 11:30 AM EST Nurse Only Cardiac Rehab, [address] [place] [address] [facility], Nurse Cardiac Rehab [address] [place] [address], [place] [address] 08/20/2023 11:30 AM EST Nurse Only Cardiac Rehab, [address] [place] [address] [facility], Nurse Cardiac Rehab [address] [place] [address], [place] [address] 08/21/2023 2:15 PM EST Office Visit Cardiology, [facility] [address] [facility] [place] [address] Izzy Patiño, [address] [place] [address] 08/22/2023 11:30 AM EST Nurse Only Cardiac Rehab, [address], [place] [address] [facility], Nurse Cardiac Rehab [address] [place] [address], [place] [address] 08/24/2023 11:30 AM EST Nurse Only Cardiac Rehab, [address], [place] [address] [facility], Nurse Cardiac Rehab [address] [place] [address], [place] [address] 08/27/2023 11:30 AM EDT Nurse Only Cardiac Rehab, [address] [place] [address] [facility], Nurse Cardiac Rehab [address] [place] [address] 08/29/2023 11:30 AM EDT Nurse Only Cardiac Rehab, [facility] [address] [place] [address] sh, Nurse Cardiac Rehab [address] [place] [address] 09/14/2023 1:20 PM EDT Office Visit Family Practice [facility] [address] [place] [address] Dewayne Pena MD [address] [place] [address] 10/02/2023 1:40 PM EDT Office Visit Rheumatology [place] [address] [facility] [place] [address] Timo Guzman MD [facility] [place] [address] 04/15/2024 10:40 AM EDT Office Visit Dermatology [facility] [address] [place] [address] Jonnathan House PA-C [address] [place] [address] Health Maintenance Due Date Last Done [...] D LEVEL ONCE IN A LIFETIME-USE SMARTSET# 23727 Completed 11/03/2022, 11/20/2018 Influenza Vaccine (FLU shot) [...] this encounter Medical Devices Implanted Type Area Cannery Tender Engineer Device Identifier Shelf Expiration Date Model / Serial / Lot Cath Thermodilution 6fr - [id number] Implanted:Qty: 1 on 03/07/2023 by Armando Beltran MD at [facility] [place] [employer] KRISTYN [id number] 10/10/2024 [id number] / / [id number] Valve Aortic Transcath Fx 34mm - [id number] Implanted:Qty: 1 on 05/03/2023 by Armando Beltran MD at [facility] [employer] [id number] 08/10/2024 EVOLUTFX- 34 / [id number] / [id number] documented as of this encounter Visit Diagnoses Diagnosis S/P TAVR (transcatheter aortic valve replacement)- Primary Heart valve replaced by other means documented in this encounter Advance Directives Documents on File Type Date Recorded 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
--- OUTSIDE RECORDS SUMMARY | 2023-10-08 23:08 | External Medical Summary | Summary of Care ---
Author Name Unknown Organization [facility] Address [address] [place] [address] Phone [phone] Care Team Providers Care Demand Manager Name Role Phone Dewayne Pena MD Primary Care Provider [phone] [phone] Reason for Visit * Reason Comments Cardiac Rehab Encounter Details Date Type Department Care Team (Late st Contact Info) Description 07/25/2023 11:30 AM EST Nurse Only Cardiac Rehab, [facility] [address] [place] [address] [facility], Nurse Cardiac Rehab [address] [place] [address] Cardiac Rehab Allergies No known active allergiesdocumented as of this encounter (statuses as of 07/25/2023) Medications Medication Sig Dispensed Refills Start Date [...] as of this encounter (statuses as of 07/25/2023) Active Problems Problem Noted Date Diagnosed Date [...] disease) 05/20/2019 Coronary artery disease invo lving [place] coronary artery of [place] heart without angina pectoris 03/24/2019 Nonrheumatic mitral valve stenosis 03/24/2019 H/O Hodgkin's lymphoma 07/05/2018 Acquired hypothyroidism 07/05/2018 documented as of this encounter (statuses as of 07/25/2023) Resolved Problems Problem Noted Date Diagnosed Date [...] prior, see below) BCC R forehead 2008 ([facility]) Prediabetes 02/28/2021 02/01/2023 Overview: Per Prediabetes protocol Moderate protein malnutrition 12/15/2019 03/14/2023 Ankylosing spondylitis of cervical region 12/15/2019 07/07/2022 Moderate aortic stenosis 03/24/2019 H/O atrial fibrillation with out current medication 07/05/2018 03/14/2023 documented as of this encounter (statuses as of 07/25/2023) Immunizations Name Administration Dates Next Due COVID-19 mRNA, LNP-s, No Pre serve, 2-Dose Series (Moderna) 08/21/2020,07/17/2020 COVID-19, MRNA-LNP, 23-24, P F, 30 MCG/0.3 mL, 12 YRS AND ABOVE, IM ([facility]) 03/27/2023 COVID-19, mRNA, LNP-s, PF, B ooster, [...] Sign Reading Time Taken Comments Blood Pressure 132/78 07/25/2023 10:38 AM EST Pulse 95 07/25/2023 10:38 AM EST Temperature - - Respiratory Rate - - Oxygen Saturation - - Inhaled Oxygen Concentration - - Weight 63.8 kg (140 lb 11.2 oz) 024 10:38 AM EST Height - - Body Mass Index 18.56 07/09/2023 2:11 PM EST documented in this encounter Functional Status Functional Status Response Date of Assess ment Do you have serious difficul ty walking or climbing stairs? (5 years old or older) No 05/04/2023 documented as of this encounter Nursing Notes * Verona Rodriguez, RN - 07/25/2023 10:39 AM EST Pt participated in Cardiac Rehab today with no complications. Exercise regimen per protocol. documented in this encounter Plan of Treatment Upcoming Encounters Date Type Department Care Team (Late st Contact Info) Description 07/27/2023 11:30 AM EST Nurse Only Cardiac Rehab, [place] [address] [facility], Nurse Cardiac Rehab [address] [place] [address], [place] [address] 07/30/2023 11:30 AM EST Nurse Only Cardiac Rehab, [facility] [address] [place] [address], [place] [address] [facility], Nurse Cardiac Rehab [address] [place] [address], [place] [address] 08/01/2023 11:30 AM EST Nurse Only Cardiac Rehab, [address] [place] [address] [facility], Nurse Cardiac Rehab [address] [place] [address], [place] [address] 08/03/2023 11:30 AM EST Nurse Only Cardiac Rehab, [address] [place] [address] [facility], Nurse Cardiac Rehab [address] [place] [address], [place] [address] 08/06/2023 11:30 AM EST Nurse Only Cardiac Rehab, [address] [place] [address] [facility], Nurse Cardiac Rehab [address] [place] [address], [place] [address] 08/08/2023 11:30 AM EST Nurse Only Cardiac Rehab, [address] [place] [address] [facility], Nurse Cardiac Rehab [address] [place] [address], [place] [address] 08/10/2023 11:30 AM EST Nurse Only Cardiac Rehab, [address] [place] [address] [facility], Nurse Cardiac Rehab [address] [place] [address], [place] [address] 08/13/2023 11:30 AM EST Nurse Only Cardiac Rehab, [address] [place] [address] [facility], Nurse Cardiac Rehab [address] [place] [address], [place] [address] 08/15/2023 11:30 AM EST Nurse Only Cardiac Rehab, [address] [place] [address] [facility], Nurse Cardiac Rehab [address] [place] [address], [place] [address] 08/17/2023 11:30 AM EST Nurse Only Cardiac Rehab, [address] [place] [address] [facility], Nurse Cardiac Rehab [address] [place] [address], [place] [address] 08/20/2023 11:30 AM EST Nurse Only Cardiac Rehab, [address] [place] [address] [facility], Nurse Cardiac Rehab [address] [place] [address], [place] [address] 08/21/2023 2:15 PM EST Office Visit Cardiology, [address] [place] [address] Izzy Patiño, [address] [place] [id number] 08/22/2023 11:30 AM EST Nurse Only Cardiac Rehab, [address] [place] [address] [facility], Nurse Cardiac Rehab [address] [place] [address], [place] [address] 08/24/2023 11:30 AM EST Nurse Only Cardiac Rehab, [address] [place] [address] [facility], Nurse Cardiac Rehab [address] [place] [address], [place] [address] 08/27/2023 11:30 AM EDT Nurse Only Cardiac Rehab, [facility] [address] [place] [address] [facility], Nurse Cardiac Rehab [address] [place] [address] 08/29/2023 11:30 AM EDT Nurse Only Cardiac Rehab, [facility] [address] [place] [address] [facility], Nurse Cardiac Rehab [address] [place] [address] 09/14/2023 1:20 PM EDT Office Visit Family Practice [facility] [place] [address] Dewayne Pena MD [address] [place] [address] 10/02/2023 1:40 PM EDT Office Visit Rheumatology [address] [place] [address] Timo Guzman MD [address] [place] [address] [place] [address] 04/15/2024 10:40 AM EDT Office Visit Dermatology [facility] [address] [place] [address] Jonnathan House PA-C [address] [place] [address] Health Maintenance Due Date Last Done Comments [...] D LEVEL ONCE IN A LIFETIME-USE SMARTSET# [id number] Completed 11/03/2022, 11/20/2018 Influenza Vaccine (FLU shot) [...] encounter Medical Devices Implanted Type Area Web Merchant Device Identifier Shelf Expiration Date Model / Serial / Lot Cath Thermodilution 6fr - [id number] Implanted:Qty: 1 on 03/07/2023 by Armando Beltran MD [place] [facility] [place] [employer] [place] [id number] 10/10/2024 [id number] / / [id number] Valve Aortic Transcath Fx 34mm - [id number] Implanted:Qty: 1 on 05/03/2023 by Armando Beltran MD [place] [facility] [place] [employer] [id number] 08/10/2024 EVOLUTFX- 34 / [id number] / [id number] documented as of this encounter Visit Diagnoses Diagnosis S/P TAVR (transcatheter aortic valve replacement)- Primary Heart valve replaced by other means documented in this encounter Advance Directives Documents on File Type Date Recorded Patient Clerk Checker Expl anation POLST 03/06/2022 [place] OR DERS FOR LIFE-SUSTAINING TREATMENT POLST 12/13/2021 [place] OR DERS FOR LIFE-SUSTAINING TREATMENT Latest Code [...] Direct lorenzo occurred with: Patient Care Teams Demand Manager Relationship Specialty Start Date End Date Dewayne Pena MD [address] [facility] [place] [address] PCP - General Family Medicine 04/30/23 documented as of this encounter
--- OUTSIDE RECORDS SUMMARY | 2023-10-08 23:08 | External Medical Summary | Summary of Care ---
Author Name Unknown Organization [facility] Address [address] [place] [address] Phone [phone] Care Team Providers Care Buildings Painter Name Role Phone Dewayne Pena MD Primary Care Provider [phone] Reason for Visit * Reason Comments Cardiac Rehab * Evaluate & Treat - Unlimited Visits (Within 30 days (routine)) - Authorized Specialty Diagnoses / Procedures Referred By Contac t Referred To Contact CARDIAC REHAB / Cardiology Diagnoses S/P TAVR (transcatheter aortic valve replacement) Status post cardiac surgery Camille Vieyra DO [address] [place] [address] Referral ID Status Reason Start Date Expiration Date Visits Requested Visits Authorized [id number] Authorized Specialty Services Required 3 [phone] Encounter Details Date Type Department Care Team (Late st Contact Info) Description 08/01/2023 11:30 AM EST Nurse Only Cardiac Rehab, [place] [address] [facility], Nurse Cardiac Rehab [address] [place] [address] Cardiac Rehab Allergies No known active allergiesdocumented as of this encounter (statuses as of 08/01/2023) Medications Medication Sig Dispensed Refills Start Date [...] as of this encounter (statuses as of 08/01/2023) Active Problems Problem Noted Date Diagnosed Date 1st degree AV block 05/05/2023 S/P TAVR (transcatheter aortic valve replacement ) 05/03/2023 BMI less than 19,adult 03/16/2023 Senile osteoporosis 09/28/2022 Protein-calorie malnutrition 07/07/2022 Neuromuscular disorder 07/07/2022 PHT (pulmonary hypertension) 06/02/2021 Hx of melanoma of skin 03/24/2021 Overview: Hx MM date 2013, Depth unknown, no SLN, Location R spiritism PSVT (paroxysmal supraventricular tachycardia) 0 12/15/2019 Raynaud's disease without gangrene 06/02/2019 Esophageal dysmotility 05/20/2019 JULIUS (obstructive sleep apnea) 05/20/2019 ILD (interstitial lung disease) 05/20/2019 Coronary artery disease invo lving [place] coronary artery of [place] heart without angina pectoris 03/24/2019 Nonrheumatic mitral valve stenosis 03/24/2019 H/O Hodgkin's lymphoma 07/05/2018 Acquired hypothyroidism 07/05/2018 documented as of this encounter (statuses as of 08/01/2023) Resolved Problems Problem Noted Date Diagnosed Date Resolved Date Osteoporotic fracture of left hip 09/28/2022 03/14/2023 Aortic root enlargement 07/07/2022 11/2 08/2022 Sinus tachycardia 03/16/2022 03/14/2023 Hx of nonmelanoma skin cancer 03/24/2021 05/14/2023 Overview: Hx MM date 2013, Depth unknown, no SLN, Location R spiritism (still no path in chart, pt confirmed [...] as of this encounter (statuses as of 08/01/2023) Immunizations Name Administration Dates Next Due COVID-19 [...] Sign Reading Time Taken Comments Blood Pressure 128/64 08/01/2023 12:04 PM EST Pulse - - Temperature - - Respiratory Rate - - Oxygen Saturation - - Inhaled Oxygen Concentration - - Weight 63.4 kg (139 lb 12.8 oz) 024 12:04 PM EST Height - - Body Mass Index 18.44 07/09/2023 2:11 PM EST documented in this encounter Functional Status Functional Status Response Date of Assess ment Do you have serious difficul ty walking or climbing stairs? (5 years old or older) No 05/04/2023 documented as of this encounter Nursing Notes * Verona Rodriguez RN - 08/01/2023 12:04 PM EST Pt participated in Cardiac Rehab today. Exercise regimen per protocol. Pt had two episodes of SVT with rates up to 150s. BP remained stable and pts only symptom was feeling a little "off" during the first episode. Unable to determine what triggers these episodes, sometimes its at rest and other times it is during exercise. It does seem to be near the end of his exercise sessions when he has these. Will cont to monitor, has EP consult on 08/20. Dc in SR with HR of 97. documented in this encounter Plan of Treatment Upcoming Encounters Date Type Department Care Team (Late st Contact Info) Description 08/03/2023 11:30 AM EST Nurse Only Cardiac Rehab, [address] [address] [facility], Nurse Cardiac Rehab [address] [place] [address], [place] [address] 08/06/2023 11:30 AM EST Nurse Only Cardiac Rehab, [address] [address] [facility], Nurse Cardiac Rehab [address] [place] [address] 08/08/2023 11:30 AM EST Nurse Only Cardiac Rehab, [address] [address] [facility], Nurse Cardiac Rehab [address] [place] [address], [place] [address] 08/10/2023 11:30 AM EST Nurse Only Cardiac Rehab, [address] [address] [facility], Nurse Cardiac Rehab [address] [place] [address], [place] [address] 08/13/2023 11:30 AM EST Nurse Only Cardiac Rehab, [address] [address] [facility], Nurse Cardiac Rehab [address] [place] [address], [place] [address] 08/15/2023 11:30 AM EST Nurse Only Cardiac Rehab, [address] [place] [address] [facility], Nurse Cardiac Rehab [address] [place] [address], [place] [address] 08/17/2023 11:30 AM EST Nurse Only Cardiac Rehab, [address] [place] [address] [facility], Nurse Cardiac Rehab [address] [place] [address], [place] [address] 08/20/2023 11:30 AM EST Nurse Only Cardiac Rehab, [address] [place] [address] [facility], Nurse Cardiac Rehab [address] [place] [address], [place] [address] 08/21/2023 2:15 PM EST Office Visit Cardiology, [facility] [address] [facility] [place] [address] Izzy Patiño, [address] [place] [address] 08/22/2023 11:30 AM EST Nurse Only Cardiac Rehab, [address] [place] [address] [facility], Nurse Cardiac Rehab [address] [place] [address], [place] [address] 08/24/2023 11:30 AM EST Nurse Only Cardiac Rehab, [address] [place] [address] [facility], Nurse Cardiac Rehab [address] [place] [address], [place] [address] 08/27/2023 11:30 AM EDT Nurse Only Cardiac Rehab, [facility] [address] [place] [address] [facility], Nurse Cardiac Rehab [address] [place] [address] 08/29/2023 11:30 AM EDT Nurse Only Cardiac Rehab, [facility] [address] [place] [address] [facility], Nurse Cardiac Rehab [address] [place] [address] 09/14/2023 1:20 PM EDT Office Visit Family Practice [facility] [address] [place] [address] Dewayne Pena MD [address] [place] [address] 10/02/2023 1:40 PM EDT Office Visit Rheumatology [place] [address] [place] [address] Timo Guzman MD [facility] [place] [address] 04/15/2024 10:40 AM EDT Office Visit Dermatology [facility] [address] [place] [address] Jonnathan House PA-C [address] [place] [address] Health Maintenance Due Date Last Done [...] D LEVEL ONCE IN A LIFETIME-USE SMARTSET# [id number] Completed 11/03/2022, 11/20/2018 Influenza Vaccine (FLU shot) [...] this encounter Medical Devices Implanted Type Area Plain Goods Hemmer Device Identifier Shelf Expiration Date Model / Serial / Lot Cath Thermodilution 6fr - [id number] Implanted:Qty: 1 on 03/07/2023 by Armando Beltran MD at [facility] [place] [employer] KRISTYN [id number] 10/10/2024 [id number] / / [id number] Valve Aortic Transcath Fx 34mm - [id number] Implanted:Qty: 1 on 05/03/2023 by Armando Beltran MD [place] [facility] [place] [employer] [id number] 08/10/2024 EVOLUTFX- 34 / [id number] / [id number] documented as of this encounter Visit Diagnoses Diagnosis S/P TAVR (transcatheter aortic valve replacement)- Primary Heart valve replaced by other means documented in this encounter Advance Directives Documents on File Type Date Recorded 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
--- OUTSIDE RECORDS SUMMARY | 2023-10-08 23:08 | External Medical Summary | Summary of Care ---
Author Name Unknown Organization [facility] Address [address] [place] [address] Phone [phone] Care Team Providers Care Pre Sales Architect Name Role Phone Dewayne Pena MD Primary Care Provider [phone] Reason for Visit * Reason Comments Cardiac Rehab * Evaluate & Treat - Unlimited Visits (Within 30 days (routine)) - Authorized Specialty Diagnoses / Procedures Referred By Contac t Referred To Contact CARDIAC REHAB / Cardiology Diagnoses S/P TAVR (transcatheter aortic valve replacement) Status post cardiac surgery Camlile Vieyra DO [address] [place] [address] Referral ID Status Reason Start Date Expiration Date Visits Requested Visits Authorized [id number] Authorized Specialty Services Required 3 [phone] Encounter Details Date Type Department Care Team (Late st Contact Info) Description 08/03/2023 11:30 AM EST Nurse Only Cardiac Rehab, [place] [address] [facility], Nurse Cardiac Rehab [address] [place] [address] Cardiac Rehab Allergies No known active allergiesdocumented as of this encounter (statuses as of 08/03/2023) Medications Medication Sig Dispensed Refills Start Date [...] as of this encounter (statuses as of 08/03/2023) Active Problems Problem Noted Date Diagnosed Date 1st degree AV block 05/05/2023 S/P TAVR (transcatheter aortic valve replacement ) 05/03/2023 BMI less than 19,adult 03/16/2023 Senile osteoporosis 09/28/2022 Protein-calorie malnutrition 07/07/2022 Neuromuscular disorder 07/07/2022 PHT (pulmonary hypertension) 06/02/2021 Hx of melanoma of skin 03/24/2021 Overview: Hx MM date 2013, Depth unknown, no SLN, Location [facility] PSVT (paroxysmal supraventricular tachycardia) 0 12/15/2019 Raynaud's disease without gangrene 06/02/2019 Esophageal dysmotility 05/20/2019 JULIUS (obstructive sleep apnea) 05/20/2019 ILD (interstitial lung disease) 05/20/2019 Coronary artery disease invo lving [place] coronary artery of [place] heart without angina pectoris 03/24/2019 Nonrheumatic mitral valve stenosis 03/24/2019 H/O Hodgkin's lymphoma 07/05/2018 Acquired hypothyroidism 07/05/2018 documented as of this encounter (statuses as of 08/03/2023) Resolved Problems Problem Noted Date Diagnosed Date Resolved Date Osteoporotic fracture of left hip 09/28/2022 03/14/2023 Aortic root enlargement 07/07/2022 11/2 08/2022 Sinus tachycardia 03/16/2022 03/14/2023 Hx of nonmelanoma skin cancer 03/24/2021 05/14/2023 Overview: Hx MM date 2013, Depth unknown, no SLN, Location [facility] (still no path in chart, pt confirmed that he had surgery for melanoma at that site and for BCC prior, see below) BCC R forehead 2008 ([facility]) Prediabetes 02/28/2021 02/01/2023 Overview: Per Prediabetes protocol Moderate protein malnutrition 12/15/2019 03/14/2023 Ankylosing spondylitis of cervical region 12/15/2019 07/07/2022 Moderate aortic stenosis 03/24/2019 H/O atrial fibrillation with out current medication 07/05/2018 03/14/2023 documented as of this encounter (statuses as of 08/03/2023) Immunizations Name Administration Dates Next Due COVID-19 [...] Sign Reading Time Taken Comments Blood Pressure 124/60 08/03/2023 11:29 AM EST Pulse 96 08/03/2023 11:29 AM EST Temperature - - Respiratory Rate - - Oxygen Saturation - - Inhaled Oxygen Concentration - - Weight 63.2 kg (139 lb 6.4 oz) 08/03/2023 11:29 AM EST Height - - Body Mass Index 18.39 07/09/2023 2:11 PM EST documented in this encounter Functional Status Functional Status Response Date of Assess ment Do you have serious difficul ty walking or climbing stairs? (5 years old or older) No 05/04/2023 documented as of this encounter Nursing Notes * Zoraida Del Rosario RN - 08/03/2023 11:30 AM EST Patient tolerated Cardiac Rehab exercise without difficulty. Patient has a h/o SVT frequently will continue to monitor. Patient had 2 episodes during CR sessiontoday. documented in this encounter Plan of Treatment Upcoming Encounters Date Type Department Care Team (Late st Contact Info) Description 08/06/2023 10:15 AM EST Immunization [facility] [address] [place] [address] [place], [facility] [address] [place] [address] 08/06/2023 11:30 AM EST Nurse Only Cardiac Rehab, [address] [address] [facility], Nurse Cardiac Rehab [address] [place] [address] 08/08/2023 11:30 AM EST Nurse Only Cardiac Rehab, [address] [address] [facility], Nurse Cardiac Rehab [address] [place] [address] 08/10/2023 11:30 AM EST Nurse Only Cardiac Rehab, [address] [address] [facility], Nurse Cardiac Rehab [address] [place] [address] 08/13/2023 11:30 AM EST Nurse Only Cardiac Rehab, [address] [address] [facility], Nurse Cardiac Rehab [address] [place] [address] 08/15/2023 11:30 AM EST Nurse Only Cardiac Rehab, [address] [address] [facility], Nurse Cardiac Rehab [address] [facility] [place] [address] 08/17/2023 11:30 AM EST Nurse Only Cardiac Rehab, [facility] [address] [place] [address], [place] [address] [facility], Nurse Cardiac Rehab [address] [place] [address], [place] [address] 08/20/2023 11:30 AM EST Nurse Only Cardiac Rehab, [address] [place] [address] [facility], Nurse Cardiac Rehab [address] [place] [address], [place] [address] 08/21/2023 2:15 PM EST Office Visit Cardiology, [facility] [address] [facility] [place] [address] Izzy Patiño, [address] [place] [address] 08/22/2023 11:30 AM EST Nurse Only Cardiac Rehab, [address] [place] [address] [facility], Nurse Cardiac Rehab [address] [place] [address], [place] [address] 08/24/2023 11:30 AM EST Nurse Only Cardiac Rehab, [address] [place] [address] [facility], Nurse Cardiac Rehab [address] [place] [address], [place] [address] 08/27/2023 11:30 AM EDT Nurse Only Cardiac Rehab, [address] [place] [address] [facility], Nurse Cardiac Rehab [address] [place] [address], [place] [address] 08/29/2023 11:30 AM EDT Nurse Only Cardiac Rehab, [facility] [address] [place] [address] [facility], Nurse Cardiac Rehab [address] [place] [address] 09/14/2023 1:20 PM EDT Office Visit Family Practice [facility] [address] [place] [address] Dewayne Pena MD [address] [place] [address] 10/02/2023 1:40 PM EDT Office Visit Rheumatology [place] [address] [employer] [place] [address] Timo Guzman MD [facility] [employer] [place] [address] 04/15/2024 10:40 AM EDT Office Visit Dermatology [facility] [address] [place] [address] Jonnathan House PA-C [address] [place] [address] Health Maintenance Due Date Last [...] D LEVEL ONCE IN A LIFETIME-USE SMARTSET# [id number] Completed 11/03/2022, 11/20/2018 Influenza Vaccine (FLU shot) [...] this encounter Medical Devices Implanted Type Area Director Energy Device Identifier Shelf Expiration Date Model / Serial / Lot Cath Thermodilution 6fr - [id number] Implanted:Qty: 1 on 03/07/2023 by Armando Beltran MD at [facility] [employer] [id number] 10/10/2024 [id number] / / [id number] Valve Aortic Transcath Fx 34mm - [id number] Implanted:Qty: 1 on 05/03/2023 by Armando Beltran MD at [facility] [employer] [id number] 08/10/2024 [id number] / [id number] / [id number] documented as of this encounter Visit Diagnoses Diagnosis S/P TAVR (transcatheter aortic valve replacement)- Primary Heart valve replaced by other means documented in this encounter Advance Directives Documents on File Type Date Recorded 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
--- OUTSIDE RECORDS SUMMARY | 2023-10-08 23:08 | External Medical Summary | Summary of Care ---
Author Name Unknown Organization [facility] Address [address] [place] [address] Phone [phone] Care Team Providers Care Ophthalmology Assistant Name Role Phone Dewayne Pena MD Primary Care Provider [phone] Reason for Visit * Reason Comments NEW PATIENT * Evaluate & Treat - Unlimited Visits (Within 10 days (routine)) - Authorized Specialty Diagnoses / Procedures Referred By Contact Referred To Contact Cardiac Electrophysiology / Cardiology Diagnoses Nonrheumatic aortic valve stenosis S/P TAVR (transcatheter aortic valve replacement) Mobitz type 2 second degree AV block LBBB (left bundle branch block) PAF (paroxysmal atrial fibrillation) (HCC) Atrial flutter, unspecified type (HCC) Nonobstructive atherosclerosis of coronary artery Blessing Coronel CRNP [address] [place] [address] Referral ID Status Reason Start Date Expiration Date Visits Requested Visits Authorized [id number] Authorized Specialty Services Required 3 [phone] Encounter Details Date Type Department Care Team (Latest Contact Info) Description 08/13/2023 10:00 AM EST Office Visit Cardiology [facility] [address] [place], [place] [id number] Denny Fuentes CRNP [address] [place] [address] PSVT (paroxysmal supraventricular tachycardia)*; Nonrheumatic aortic valve stenosis; S/P TAVR (transcatheter aortic valve replacement); Mobitz type 2 second degree AV block; ILD (interstitial lung disease) (HCC) Allergies No known active allergiesdocumented as of this encounter (statuses as of 08/13/2023) Medications Medication Sig Dispensed Refills Start Date [...] as of this encounter (statuses as of 08/13/2023) Active Problems Problem Noted Date Diagnosed Date 1st degree AV block 05/05/2023 S/P TAVR (transcatheter aortic valve replacement ) 05/03/2023 BMI less than 19,adult 03/16/2023 Senile osteoporosis 09/28/2022 Protein-calorie malnutrition 07/07/2022 Neuromuscular disorder 07/07/2022 PHT (pulmonary hypertension) 06/02/2021 Hx of melanoma of skin 03/24/2021 Overview: Hx MM date 2013, Depth unknown, no SLN, Location [facility] PSVT (paroxysmal supraventricular tachycardia) 0 12/15/2019 Raynaud's disease without gangrene 06/02/2019 Esophageal dysmotility 05/20/2019 JULIUS (obstructive sleep apnea) 05/20/2019 ILD (interstitial lung disease) 05/20/2019 Coronary artery disease invo lving iliamna coronary artery of iliamna heart without angina pectoris 03/24/2019 Nonrheumatic mitral valve stenosis 03/24/2019 H/O Hodgkin's lymphoma 07/05/2018 Acquired hypothyroidism 07/05/2018 documented as of this encounter (statuses as of 08/13/2023) Resolved Problems Problem Noted Date Diagnosed Date Resolved Date Osteoporotic fracture of left hip 09/28/2022 03/14/2023 Aortic root enlargement 07/07/202204/19 Sinus tachycardia 03/16/2022 03/14/2023 Hx of nonmelanoma skin cancer 03/24/2021 05/14/2023 Overview: Hx MM date 2013, Depth unknown, no SLN, Location [facility] (still no path in chart, pt confirmed that he had surgery for melanoma at that site and for BCC prior, see below) BCC R forehead 2008 ([facility]) Prediabetes 02/28/2021 02/01/2023 Overview: Per Prediabetes protocol Moderate protein malnutrition 12/15/2019 03/14/2023 Ankylosing spondylitis of cervical region 12/15/2019 07/07/2022 Moderate aortic stenosis 03/24/2019 H/O atrial fibrillation with out current medication 07/05/2018 03/14/2023 documented as of this encounter (statuses as of 08/13/2023) Immunizations Name Administration Dates Next Due COVID-19 mRNA, LNP-s, No Pre serve, 2-Dose Series (Moderna) 08/21/2020,07/17/2020 COVID-19, MRNA-LNP, 23-24, P F, 30 MCG/0.3 mL, 12 YRS AND ABOVE, IM ([employer]ines-Comirnaty) 03/27/2023 COVID-19, mRNA, LNP-s, PF, B ooster, [...] Sign Reading Time Taken Comments Blood Pressure 136/72 08/13/2023 9:33 AM EST Pulse 96 08/13/2023 9:33 AM EST Temperature - - Respiratory Rate - - Oxygen Saturation 98% 08/13/2023 9:33 AM EST Inhaled Oxygen Concentration - - Weight 64 kg (141 lb 1.6 oz) 08/13/2023 9:33 AM EST Height 185.4 cm (6' 1") 08/13/2023 9:33 AM EST Body Mass Index 18.62 08/13/2023 9:33 AM EST documented in this encounter Functional Status Functional Status Response Date of Assess ment Do you have serious difficul ty walking or climbing stairs? (5 years old or older) No 05/04/2023 documented as of this encounter Progress Notes * Denny Fuentes CRNP - 08/13/2023 10:12 AM EST (Beer) Subjective: Guido Daley is a 72 year old male. Chief Complaint Patient presents with NEW PATIENT HPI: Guido Daley is a 72-year-old gentleman who presents today at the request of his cardiologyTAVR team for evaluation of SVT. He underwent TAVR on 05/03/2023. Since then he has been going to cardiac rehab. During his cardiac rehabilitation, he has had episodes at the end of his sessions when he is exercising to full capacity where his heart rate spikes to 160-170. He feels lightheaded, odd sensation in the chest, and has pressure in his head. He meditates and within a minute or so feels that this goes back to normal rhythm. He has had some lightheaded spells usually when getting up in the morning and also feels a little off after walking his dog for about 30 minutes. Post TAVR he wore a ZIO monitor which showed rare nonconducted atrial beat. CARDIAC HISTORY: Hodgkin's lymphoma for which he was treated with splenectomy and radiation therapy at the age of 27 Atrial flutter, per outside records, underwent tricuspid isthmus ablation in 2013 Mild aortic valve stenosis, echo and cardiac catheterization, 2016 Cardiac catheterization, November, which took place in the setting of an abnormal stress echocardiogram revealing mild nonobstructive CAD with ostial LAD stenosis in the range of 40- 50%, and nonobstructive RCA disease not well quantitated in the report Symptomatic atrial fibrillation for which patient underwent pulmonary vein cryoablation May, PMH: Patient Active Problem List Diagnosis Code H/O Hodgkin's lymphoma Z85.71 Acquired hypothyroidism E03.9 Coronary artery disease involving iliamna coronary artery of iliamna heart without angina pectoris I25.10 Nonrheumatic mitral valve stenosis I34.2 Esophageal dysmotility K22.4 JULIUS (obstructive sleep apnea) G47.33 ILD (interstitial lung disease) ([facility]) J84.9 Raynaud's disease without gangrene I73.00 PSVT (paroxysmal supraventricular tachycardia) I47.10 Hx of melanoma of skin Z85.820 PHT (pulmonary hypertension) ([facility]) I27.20 Protein-calorie malnutrition (HCC) E46 Neuromuscular disorder ([facility]) G70.9 Senile osteoporosis M81.0 BMI less than 19,adult Z68.1 S/P TAVR (transcatheter aortic valve replacement) Z95.2 1st degree AV block I44.0 Current Outpatient Medications Medication Sig Dispense Refill [...] the morning and 1 Capsule before bedtime. No current facility-administered medications for this visit. Past Medical History: Diagnosis Date Atrial fibrillation (HCC) BMI less than 19,adult 03/16/2023 Bronchiectasis ([facility]) Cardiac arrhythmia Coronary artery disease involving iliamna coronary artery of iliamna heart without angina pectoris 03/24/2019 Hodgkin's disease ([facility]) 1977 s/p radiation Hx of melanoma of skin 03/24/2021 Hx MM date 2013, Depth unknown, no SLN, Location [facility] ILD (interstitial lung disease) ([facility]) Moderate aortic stenosis 03/24/2019 Nonrheumatic mitral valve stenosis 03/24/2019 JULIUS (obstructive sleep apnea) Pulmonary arterial hypertension (HCC) Raynaud's disease without gangrene 06/02/2019 Sleep apnea, obstructive Past Surgical History: Procedure Laterality Date ANESTH, CARDIAC ELECTROPHYS 2015 CARDIAC CATH-CARDIOLOGY ONLY approx 2013 CARDIOVERSION,ELECTIVE INTERNA 2012 CORONARY ANGIOGRAPHY W/LEFT HEART CATH Right 03/07/2023 CORONARY ANGIOGRAPHY W/LEFT HEART CATH performed by Armando Beltran MD at [facility] EGD, FLEXIBLE, DIAGNOSTIC 05/21/2019 reflux / [facility] MUSCLE BIOPSY, DEEP Left 04/11/2022 BIOPSY MUSCLE DEEP performed by Sadiq Kennedy MD at [facility] REMOVAL OF SPLEEN, TOTAL 1978 Due to Hodgkin's disease REPLACE AORTIC VALVE, PERCUTANEOUS FEMORAL Bilateral 05/03/2023 REPLACE AORTIC VALVE, PERCUTANEOUS FEMORAL performed by Armando Beltran MD at [facility] REPLACE AORTIC VALVE, PERCUTANEOUS FEMORAL Bilateral 05/03/2023 REPLACE AORTIC VALVE, PERCUTANEOUS FEMORAL performed by Cisco Herrera MD, PhD at [facility] TOTAL HIP REPLACEMENT & PROSTHESIS Left 11/28/2021 Review of patient's allergies indicates: No Known Allergies Family History Problem Relation Age of Onset Breast Cancer Mother Other (Natural causes) Mother age 98 Lung Disorder Father Pulm fibrosis-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 Heart attack Father [place] x 2 Other (Parathyroid problems) Sister Other (Knee problems) Brother s/p knee replacement Social History Socioeconomic History Marital status: Occupational History 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 No mold. Social Determinants of Health Food Insecurity: No Food Insecurity (05/09/2023) Hunger Vital Sign Worried About Running Out of Food in the Last Year: Never true Ran Out of Food in the Last Year: Never true Review of Systems: General: No change in weight, No weakness, No fatigue, and No fevers, sweats, or chills Neck: No complaint of lumps in neck, No swollen glands, No recent swelling in thyroid area, and No significant pain in neck Respiratory: No cough, sputum, or hemoptysis, No wheezing, and No recent change in breathing Cardiac: No chest pain, No orthopnea, No paroxysmal nocturnal dyspnea, No edema, No syncope, + dyspnea on exertion related to ILD, and + palpitations with exertion Gastrointestinal: No dysphagia, No significant heartburn, No significant change in appetite, and Nonausea, vomiting, diarrhea, or constipation Urinary: No hematuria Musculoskeletal: No muscle pains or cramps and No joint swelling Hematologic: No easy bruising or abnormal bleeding and + history of anemia Neurologic: No fainting or blackouts, No seizures, No tremors, and No significant problems with memory Skin: No edema, No rash, and No itching Extremities: No pain, redness or swelling on the joints Objective: BP 136/72 (BP Site: Left Arm, BP Position: Sitting, BP Cuff Size: Regular) | Pulse 96 | Ht 1.854 m (6' 1") | Wt 64 kg (141 lb 1.6 oz) | SpO2 98% | BMI 18.62 kg/m | BSA 1.82 m General: alert, no distress, and malnourished Neck: supple, no adenopathy, no bruits, no JVD, thyroid normal size, non-tender, without nodularity Heart: regular rate & rhythm with grade II/ systolic murmur with clear S2 Lungs: crackles lower 1/3 bilaterally Pulses: radial=2/4, carotid=2/4 w/o bruits, posterior tibial=2/4, dorsalis pedis=2/4 Extremities: less than 2 second capillary refill, no joint deformities, effusion, or inflammation, no edema, no cyanosis Neuro Exam: alert & oriented x 3 with fluent speech Skin: skin color, texture, turgor are normal, no rashes or significant lesions EKG reveals normal sinus rhythm with PAC Patient advised to call me if he/she does not hear back from me regarding any testing done/ordered.Explained I will always make contact with the patient once I receive the results but if they do notcome back to me, my safety net is the patient who should call me if they hear nothing within 1-2 weeks. ASSESSMENT/PLAN: ICD-10-CM 1. PSVT (paroxysmal supraventricular tachycardia) I47.10 2. Nonrheumatic aortic valve stenosis I35.0 3. S/P TAVR (transcatheter aortic valve replacement) Z95.2 4. Mobitz type 2 second degree AV block I44.1 5. ILD (interstitial lung disease) (HCC) J84.9 SVT - reassurance harmless arrhythmia most likely - AV tod blockers may worsen conduction or cause symptoms such as fatigue, worsened CLANCY - will monitor to assess rhythm - follow up as needed based on Monitor 2. /s/p TAVR - per [facility] 3. Mobitz II - rare dropped beat with previous Zio - no significant conduction disease at baseline - will monitor for high degree AV block - follow up based on monitor Follow up as needed. Denny Fuentes MSN, CORE JAVA SOFTWARE ENGINEER Division of Cardiology/[place] [address] MC: [id number] 08/13/2023 10:13 AM documented in this encounter Plan of Treatment Upcoming Encounters Date Type Department Care Team (Late st Contact Info) Description 08/15/2023 11:30 AM EST Nurse Only Cardiac Rehab, [address] [address] [facility], Nurse Cardiac Rehab [address] [place] [address] 08/17/2023 11:30 AM EST Nurse Only Cardiac Rehab, [address] [address] [facility], Nurse Cardiac Rehab [address] [place] [address] 08/20/2023 11:30 AM EST Nurse Only Cardiac Rehab, [address] [address] [facility], Nurse Cardiac Rehab [address] [place] [address] 08/22/2023 11:30 AM EST Nurse Only Cardiac Rehab, [address] [address] [facility], Nurse Cardiac Rehab [address] [place] [address] 08/23/2023 1:30 PM EST Appointment Cardiac Studies 1st Fl, [address] [place] [address] Gjsh, Corncob Pipes Assembler [address] [place] [address] 08/24/2023 11:30 AM EST Nurse Only Cardiac Rehab, [address] [address] [facility], Nurse Cardiac Rehab [address] [place] [address] 08/27/2023 11:30 AM EDT Nurse Only Cardiac Rehab, [address] [address] [facility], Nurse Cardiac Rehab [address] [place] [address] 08/29/2023 11:30 AM EDT Nurse Only Cardiac Rehab, [address] [address] [facility], Nurse Cardiac Rehab [address] [place] [address] 08/31/2023 11:30 AM EDT Nurse Only Cardiac Rehab, [address] [address] [facility], Nurse Cardiac Rehab [address] [place] [address] 09/14/2023 1:20 PM EDT Office Visit Family Practice [facility] [address] [place] [address] Dewayne Pena MD [address] [place] [address] 10/02/2023 1:40 PM EDT Office Visit Rheumatology [address] [place], [place] [address] Timo Guzman MD [address] [facility] [place], [place] [address] 04/15/2024 10:40 AM EDT Office Visit Dermatology [facility] [address] [place] [address] Jonnathan House PA-C [address] [place] [address] Scheduled Orders Name Type Priority Associated Diagnoses Orde r Schedule EXTERNAL EKG 8 TO 15 DAYS Holter Routine PSVT (paroxysmal supraventricular tachycardia) Nonrheumatic aortic valve stenosis Mobitz type 2 second degree AV block Expected: 08/13/2023 (Approximate), Expires: 08/13/2024 Health Maintenance Due Date Last Done Comments [...] D LEVEL ONCE IN A LIFETIME-USE SMARTSET# [id number] Completed 11/03/2022, 11/20/2018 Influenza Vaccine (FLU shot) [...] this encounter Medical Devices Implanted Type Area Medical Biller Device Identifier Shelf Expiration Date Model / Serial / Lot Cath Thermodilution 6fr - [id number] Implanted:Qty: 1 on 03/07/2023 by Armando Beltran MD at [facility] [employer] [place] [id number] 10/10/2024 [id number] / / [id number] Valve Aortic Transcath Fx 34mm - [id number] Implanted:Qty: 1 on 05/03/2023 by Armando Beltran MD at [facility] [employer] [id number] 08/10/2024 EVOLUTFX- 34 / [id number] / [id number] documented as of this encounter Visit Diagnoses Diagnosis PSVT (paroxysmal supraventricular tachycardia)- Primary Paroxysmal supraventricular tachycardia Nonrheumatic aortic valve stenosis Aortic valve disorders S/P TAVR (transcatheter aortic valve replacement) Heart valve replaced by other means Mobitz type 2 second degree AV block Mobitz (type) II atrioventricular block ILD (interstitial lung disease) (HCC) Postinflammatory pulmonary fibrosis documented in this encounter Advance Directives Documents on File Type Date Recorded 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
--- OUTSIDE RECORDS SUMMARY | 2023-10-08 23:08 | External Medical Summary | Summary of Care ---
Author Name Unknown Organization [facility] Address [address] [place] [address] Phone [phone] Care Team Providers Care Wash Oil Cooler Operator Name Role Phone Dewayne Pena MD Primary Care Provider [phone] Reason for Visit * Reason Comments Cardiac Rehab * Evaluate & Treat - Unlimited Visits (Within 30 days (routine)) - Authorized Specialty Diagnoses / Procedures Referred By Contac t Referred To Contact CARDIAC REHAB / Cardiology Diagnoses S/P TAVR (transcatheter aortic valve replacement) Status post cardiac surgery Camille Vieyra DO [address] [place] [address] Referral ID Status Reason Start Date Expiration Date Visits Requested Visits Authorized [id number] Authorized Specialty Services Required 3 [phone] Encounter Details Date Type Department Care Team (Late st Contact Info) Description 08/08/2023 11:30 AM EST Nurse Only Cardiac Rehab, [place] [address] [facility], Nurse Cardiac Rehab [address] [place] [address] Cardiac Rehab Allergies No known active allergiesdocumented as of this encounter (statuses as of 08/08/2023) Medications Medication Sig Dispensed Refills Start Date [...] as of this encounter (statuses as of 08/08/2023) Active Problems Problem Noted Date Diagnosed Date [...] disease) 05/20/2019 Coronary artery disease invo lving tejon coronary artery of tejon heart without angina pectoris 03/24/2019 Nonrheumatic mitral valve stenosis 03/24/2019 H/O Hodgkin's lymphoma 07/05/2018 Acquired hypothyroidism 07/05/2018 documented as of this encounter (statuses as of 08/08/2023) Resolved Problems Problem Noted Date Diagnosed Date [...] prior, see below) BCC R forehead 2008 ([facility]) Prediabetes 02/28/2021 02/01/2023 Overview: Per Prediabetes protocol Moderate protein malnutrition 12/15/2019 03/14/2023 Ankylosing spondylitis of cervical region 12/15/2019 07/07/2022 Moderate aortic stenosis 03/24/2019 H/O atrial fibrillation with out current medication 07/05/2018 03/14/2023 documented as of this encounter (statuses as of 08/08/2023) Immunizations Name Administration Dates Next Due COVID-19 [...] Reading Time Taken Comments Blood Pressure 124/60 08/08/2023 11:41 AM EST Pulse 98 08/08/2023 11:41 AM EST Temperature - - Respiratory Rate - - Oxygen Saturation - - Inhaled Oxygen Concentration - - Weight 63.9 kg (140 lb 14.4 oz) 024 11:41 AM EST Height - - Body Mass Index 18.59 07/09/2023 2:11 PM EST documented in this encounter Functional Status Functional Status Response Date of Assess ment Do you have serious difficul ty walking or climbing stairs? (5 years old or older) No 05/04/2023 documented as of this encounter Nursing Notes * Andrea Desai RN - 08/08/2023 11:41 AM EST Patient tolerated session well, THR med without difficulty or c/o chest pain or SOB. Will continue to advance as tolerated and monitor throughout program. documented in this encounter Plan of Treatment Upcoming Encounters Date Type Department Care Team (Late st Contact Info) Description 08/10/2023 11:30 AM EST Nurse Only Cardiac Rehab, [address] [address] [facility], Nurse Cardiac Rehab [address] [place] [address] 08/13/2023 10:00 AM EST Office Visit Cardiology [facility] [place] [address] [place], [place] [phone] Denny Fuentes CRNP [address], [place] [phone] 08/15/2023 11:30 AM EST Nurse Only Cardiac Rehab, [address] [address] [facility], Nurse Cardiac Rehab [address] [place] [address] 08/17/2023 11:30 AM EST Nurse Only Cardiac Rehab, [address] [address] [facility], Nurse Cardiac Rehab [address] [place] [address] 08/20/2023 11:30 AM EST Nurse Only Cardiac Rehab, [address] [address] [facility], Nurse Cardiac Rehab [address] [place] [address] 08/22/2023 11:30 AM EST Nurse Only Cardiac Rehab, [address] [address] [facility], Nurse Cardiac Rehab [address] [place] [address] 08/24/2023 11:30 AM EST Nurse Only Cardiac Rehab, [facility] [address] [place] [address] [facility], Nurse Cardiac Rehab [address] [place] [address] 08/27/2023 11:30 AM EDT Nurse Only Cardiac Rehab, [facility] [address] [place] [address], [place] [address] [facility], Nurse Cardiac Rehab [address] [place] [address] 08/29/2023 11:30 AM EDT Nurse Only Cardiac Rehab, [facility] [address] [place] [address] [facility], Nurse Cardiac Rehab [address] [place] [address], [place] [address] 09/14/2023 1:20 PM EDT Office Visit Family Practice [facility] [address] [facility] [place] [address] Dewayne Pena MD 132 [facility] [place] [address] 10/02/2023 1:40 PM EDT Office Visit Rheumatology [address] [place] [address] Timo Guzman MD [address] [place] [address] [place] [address] 04/15/2024 10:40 AM EDT Office Visit Dermatology [facility] [address] [place] [address] Jonnathan House PA-C [address] [place] [address] Health Maintenance Due Date Last Done [...] D LEVEL ONCE IN A LIFETIME-USE SMARTSET# [id number] Completed 11/03/2022, 11/20/2018 Influenza Vaccine (FLU shot) [...] this encounter Medical Devices Implanted Type Area Punch Operator Device Identifier Shelf Expiration Date Model / Serial / Lot Cath Thermodilution 6fr - [id number] Implanted:Qty: 1 on 03/07/2023 by Armando Beltran MD at [facility] [employer]LL[employer] [place] [id number] 10/10/2024 [id number] / / [id number] Valve Aortic Transcath Fx 34mm - [id number] Implanted:Qty: 1 on 05/03/2023 by Armando Beltran MD at [facility] [employer] [id number] 08/10/2024 EVOLUTFX- 34 / [id number] / [id number] documented as of this encounter Visit Diagnoses Diagnosis S/P TAVR (transcatheter aortic valve replacement)- Primary Heart valve replaced by other means documented in this encounter Advance Directives Documents on File Type Date Recorded Patient Scarifier Operator Expl anation POLST 03/06/2022 [place] DERS FOR LIFE-SUSTAINING TREATMENT POLST 12/13/2021 [place] DERS FOR LIFE-SUSTAINING TREATMENT Latest Code [...] Direct lorenzo occurred with: Patient Care Teams Wash Oil Cooler Operator Relationship Specialty Start Date End Date Dewayne Pena MD [address] [facility] [place] [address] PCP - General Family Medicine 04/30/23 documented as of this encounter
--- OUTSIDE RECORDS SUMMARY | 2023-10-08 23:08 | External Medical Summary | Summary of Care ---
Author Name Unknown Organization [facility] Address [address] [place] [address] Phone [phone] Care Team Providers Care Assistant Editor Name Role Phone Dewayne Pena MD Primary Care Provider [phone] [phone] Reason for Visit * Reason Comments Cardiac Rehab * Evaluate & Treat - Unlimited Visits (Within 30 days (routine)) - Authorized Specialty Diagnoses / Procedures Referred By Contac t Referred To Contact CARDIAC REHAB / Cardiology Diagnoses S/P TAVR (transcatheter aortic valve replacement) Status post cardiac surgery Camille Vieyra DO [address] [place] [address] Referral ID Status Reason Start Date Expiration Date Visits Requested Visits Authorized [id number] Authorized Specialty Services Required 3 [phone] Encounter Details Date Type Department Care Team (Late st Contact Info) Description 08/15/2023 11:30 AM EST Nurse Only Cardiac Rehab, [place] [address] [facility], Nurse Cardiac Rehab [address] [place] [address] Cardiac Rehab Allergies No known active allergiesdocumented as of this encounter (statuses as of 08/15/2023) Medications Medication Sig Dispensed Refills Start Date [...] as of this encounter (statuses as of 08/15/2023) Active Problems Problem Noted Date Diagnosed Date 1st degree AV block 05/05/2023 S/P TAVR (transcatheter aortic valve replacement ) 05/03/2023 BMI less than 19,adult 03/16/2023 Senile osteoporosis 09/28/2022 Protein-calorie malnutrition 07/07/2022 Neuromuscular disorder 07/07/2022 PHT (pulmonary hypertension) 06/02/2021 Hx of melanoma of skin 03/24/2021 Overview: Hx MM date 2013, Depth unknown, no SLN, Location R jew PSVT (paroxysmal supraventricular tachycardia) 0 12/15/2019 Raynaud's disease without gangrene 06/02/2019 Esophageal dysmotility 05/20/2019 JULIUS (obstructive sleep apnea) 05/20/2019 ILD (interstitial lung disease) 05/20/2019 Coronary artery disease invo lving [place] coronary artery of [place] heart without angina pectoris 03/24/2019 Nonrheumatic mitral valve stenosis 03/24/2019 H/O Hodgkin's lymphoma 07/05/2018 Acquired hypothyroidism 07/05/2018 documented as of this encounter (statuses as of 08/15/2023) Resolved Problems Problem Noted Date Diagnosed Date Resolved Date Osteoporotic fracture of left hip 09/28/2022 03/14/2023 Aortic root enlargement 07/07/2022 11/2 08/2022 Sinus tachycardia 03/16/2022 03/14/2023 Hx of nonmelanoma skin cancer 03/24/2021 05/14/2023 Overview: Hx MM date 2013, Depth unknown, no SLN, Location R jew (still no path in chart, pt confirmed that he had surgery for melanoma at that site and for BCC prior, see below) BCC R forehead 2008 ([facility]) Prediabetes 02/28/2021 02/01/2023 Overview: Per Prediabetes protocol Moderate protein malnutrition 12/15/2019 03/14/2023 Ankylosing spondylitis of cervical region 12/15/2019 07/07/2022 Moderate aortic stenosis 03/24/2019 H/O atrial fibrillation with out current medication 07/05/2018 03/14/2023 documented as of this encounter (statuses as of 08/15/2023) Immunizations Name Administration Dates Next Due COVID-19 [...] Sign Reading Time Taken Comments Blood Pressure 110/62 08/15/2023 4:24 PM EST Pulse - - Temperature - - Respiratory Rate - - Oxygen Saturation - - Inhaled Oxygen Concentration - - Weight 62.5 kg (137 lb 12.8 oz) 08/15/2023 4:24 PM EST Height - - Body Mass Index 18.18 08/13/2023 9:33 AM EST documented in this encounter Functional Status Functional Status Response Date of Assess ment Do you have serious difficul ty walking or climbing stairs? (5 years old or older) No 05/04/2023 documented as of this encounter Nursing Notes * Verona Rodriguez RN - 08/15/2023 4:25 PM EST Pt participated in Cardiac Rehab today with no complications. Exercise regimen per protocol. Noted that patient will have zio placed 3/ per EP visit. No episodes of SVT noted today during session. documented in this encounter Plan of Treatment Upcoming Encounters Date Type Department Care Team (Late st Contact Info) Description 08/17/2023 11:30 AM EST Nurse Only Cardiac Rehab, [address] [address] [facility], Nurse Cardiac Rehab [address] [place] [address] 08/20/2023 11:30 AM EST Nurse Only Cardiac Rehab, [address] [address] [facility], Nurse Cardiac Rehab [address] [place] [address] 08/22/2023 11:30 AM EST Nurse Only Cardiac Rehab, [address] [address] G[facility], Nurse Cardiac Rehab [address] [place] [address] 08/23/2023 1:30 PM EST Appointment Cardiac Studies 1st Fl, [address] [address] Gj, Raisin Separator Operator [address] [place] [address] 08/24/2023 11:30 AM EST Nurse Only Cardiac Rehab, [address] [address] [facility], Nurse Cardiac Rehab [address] [place] [address] 08/27/2023 11:30 AM EDT Nurse Only Cardiac Rehab, [address] [address] [facility], Nurse Cardiac Rehab [address] [place] [address] 08/29/2023 11:30 AM EDT Nurse Only Cardiac Rehab, Frannie Salem [address] [place] [address] [facility], Nurse Cardiac Rehab [address] [place] [address] 08/31/2023 11:30 AM EDT Nurse Only Cardiac Rehab, Frannie [place] [address] [place] [address] [facility], Nurse Cardiac Rehab [address] [place] [address] 09/14/2023 1:20 PM EDT Office Visit Family Practice [facility] [address] [place] [address] Dewayne Pena MD [address] [place] [address] 10/02/2023 1:40 PM EDT Office Visit Rheumatology [address] [address] Timo Guzman MD [address] [place] [address] 04/15/2024 10:40 AM EDT Office Visit Dermatology [facility] [address] [place] [address] Jonnathan House PA-C [address] [place] [address] Health Maintenance Due Date Last Done [...] D LEVEL ONCE IN A LIFETIME-USE SMARTSET# 59923 Completed 11/03/2022, 11/20/2018 Influenza Vaccine (FLU shot) [...] this encounter Medical Devices Implanted Type Area Senior Computer Specialist Device Identifier Shelf Expiration Date Model / Serial / Lot Cath Thermodilution 6fr - [id number] Implanted:Qty: 1 on 03/07/2023 by Armando Beltran MD [place] [facility] [place] [employer]YN [id number] 10/10/2024 [id number] / / [id number] Valve Aortic Transcath Fx 34mm - [id number] Implanted:Qty: 1 on 05/03/2023 by Armando Beltran MD at [facility] [place] [employer] [id number] 08/10/2024 EVOLUTFX- 34 / [id number] / [id number] documented as of this encounter Visit Diagnoses Diagnosis S/P TAVR (transcatheter aortic valve replacement)- Primary Heart valve replaced by other means documented in this encounter Advance Directives Documents on File Type Date Recorded Patient Associate Drafter Expl anation POLST 03/06/2022 [place] OR DERS [...] Direct lorenzo occurred with: Patient Care Teams Assistant Editor Relationship Specialty Start Date End Date Dewayne Pena MD [address] [facility] [place] [address] PCP - General Family Medicine 04/30/23 documented as of this encounter
--- OUTSIDE RECORDS SUMMARY | 2023-10-08 23:08 | External Medical Summary | Summary of Care ---
Author Name Unknown Organization [facility] Address [address] [place] [address] Phone [phone] Care Team Providers Care Hot Tamale Man Name Role Phone Dewayne Pena MD Primary Care Provider [phone] [phone] Reason for Visit * Reason Comments Cardiac Rehab * Evaluate & Treat - Unlimited Visits (Within 30 days (routine)) - Authorized Specialty Diagnoses / Procedures Referred By Contac t Referred To Contact CARDIAC REHAB / Cardiology Diagnoses S/P TAVR (transcatheter aortic valve replacement) Status post cardiac surgery Camille Vieyra DO [address] [place] [address] Referral ID Status Reason Start Date Expiration Date Visits Requested Visits Authorized [id number] Authorized Specialty Services Required 3 [phone] Encounter Details Date Type Department Care Team (Late st Contact Info) Description 08/17/2023 11:30 AM EST Nurse Only Cardiac Rehab, [place] [address] [facility], Nurse Cardiac Rehab [address] [place] [address] Cardiac Rehab Allergies No known active allergiesdocumented as of this encounter (statuses as of 08/17/2023) Medications Medication Sig Dispensed Refills Start Date [...] as of this encounter (statuses as of 08/17/2023) Active Problems Problem Noted Date Diagnosed Date [...] disease) 05/20/2019 Coronary artery disease invo lving [place] coronary artery of [place] heart without angina pectoris 03/24/2019 Nonrheumatic mitral valve stenosis 03/24/2019 H/O Hodgkin's lymphoma 07/05/2018 Acquired hypothyroidism 07/05/2018 documented as of this encounter (statuses as of 08/17/2023) Resolved Problems Problem Noted Date Diagnosed Date [...] prior, see below) BCC R forehead 2008 ([facility]) Prediabetes 02/28/2021 02/01/2023 Overview: Per Prediabetes protocol Moderate protein malnutrition 12/15/2019 03/14/2023 Ankylosing spondylitis of cervical region 12/15/2019 07/07/2022 Moderate aortic stenosis 03/24/2019 H/O atrial fibrillation with out current medication 07/05/2018 03/14/2023 documented as of this encounter (statuses as of 08/17/2023) Immunizations Name Administration Dates Next Due COVID-19 [...] Sign Reading Time Taken Comments Blood Pressure 124/76 08/17/2023 12:00 PM EST Pulse 93 08/17/2023 12:00 PM EST Temperature - - Respiratory Rate - - Oxygen Saturation - - Inhaled Oxygen Concentration - - Weight 64 kg (141 lb) 08/17/2023 12:00 PM EST Height - - Body Mass Index 18.6 08/13/2023 9:33 AM EST documented in this encounter Functional Status Functional Status Response Date of Assess ment Do you have serious difficul ty walking or climbing stairs? (5 years old or older) No 05/04/2023 documented as of this encounter Nursing Notes * Zoraida Del Rosario RN - 08/17/2023 12:01 PM EST Patient tolerated Cardiac Rehab exercise without difficulty. Patinet tolerated well no c/o cp or sob. THR met throughout session. Continues to show improvement. documented in this encounter Plan of Treatment Upcoming Encounters Date Type Department Care Team (Late st Contact Info) Description 08/20/2023 11:30 AM EST Nurse Only Cardiac Rehab, [address] [address] [facility], Nurse Cardiac Rehab [address] [place] [address] 08/22/2023 11:30 AM EST Nurse Only Cardiac Rehab, [address] [address] [facility], Nurse Cardiac Rehab [address] [place] [address] 08/23/2023 1:30 PM EST Appointment Cardiac Studies 1st Fl, [address] [place] [address] [facility], Information Systems Security Specialist [address] [place] [address] 08/24/2023 11:30 AM EST Nurse Only Cardiac Rehab, [address] [address] Gj, Nurse Cardiac Rehab [address] [place] [address] 08/27/2023 11:30 AM EDT Nurse Only Cardiac Rehab, [address] [address] [facility], Nurse Cardiac Rehab [address] [place] [address], [place] [address] 08/29/2023 11:30 AM EDT Nurse Only Cardiac Rehab, [address] [address] [facility], Nurse Cardiac Rehab [address] [place] [address] 08/31/2023 11:30 AM EDT Nurse Only Cardiac Rehab, Frannie Josephine [address] [place] [address] [facility], Nurse Cardiac Rehab [address] [place] [address] 09/14/2023 1:20 PM EDT Office Visit Family Practice [facility] [address] [place] [address] Dewayne Pena MD [address] [place] [address] 10/02/2023 1:40 PM EDT Office Visit Rheumatology [address] [place] [address] Timo Guzman MD [address] [place] [address] 04/15/2024 10:40 AM EDT Office Visit Dermatology [facility] [address] [place] [address] Jonnathan House PA-C [address] [place] [address] Health Maintenance Due Date Last Done [...] D LEVEL ONCE IN A LIFETIME-USE SMARTSET# 10589 Completed 11/03/2022, 11/20/2018 Influenza Vaccine (FLU shot) [...] this encounter Medical Devices Implanted Type Area Grass Farmer Device Identifier Shelf Expiration Date Model / Serial / Lot Cath Thermodilution 6fr - [id number] Implanted:Qty: 1 on 03/07/2023 by Armando Beltran [place] [facility] [place] [employer] [id number] 10/10/2024 [id number] / / [id number] Valve Aortic Transcath Fx 34mm - [id number] Implanted:Qty: 1 on 05/03/2023 by Armando Beltran MD [place] [facility] [place] [employer] [id number] 08/10/2024 EVOLUTFX- 34 / [id number] / [id number] documented as of this encounter Visit Diagnoses Diagnosis S/P TAVR (transcatheter aortic valve replacement)- Primary Heart valve replaced by other means documented in this encounter Advance Directives Documents on File Type Date Recorded Patient Senior Cytotechnologist Expl anation POLST 03/06/2022 [place] OR [facility] FOR LIFE-SUSTAINING TREATMENT POLST 12/13/[address] [place] [address] [facility] FOR LIFE-SUSTAINING TREATMENT Latest Code [...] Direct lorenzo occurred with: Patient Care Teams Hot Tamale Man Relationship Specialty Start Date End Date Dewayne Pena MD [address] [place] [address] PCP - General Family Medicine 04/30/23 documented as of this encounter
--- OUTSIDE RECORDS SUMMARY | 2023-10-08 23:09 | External Medical Summary | Summary of Care ---
Author Name Unknown Organization [facility] Address [address] [place] [address] Phone [phone] Care Team Providers Care Shot Coat Tender Name Role Phone Dewayne Pena MD Primary Care Provider [phone] [phone] Reason for Visit * Reason Comments Cardiac Rehab Encounter Details Date Type Department Care Team (Late st Contact Info) Description 07/16/2023 11:30 AM EST Nurse Only Cardiac Rehab, [facility] [address] [place] [address] [facility], Nurse Cardiac Rehab [address] [place] [address] Cardiac Rehab Allergies No known active allergiesdocumented as of this encounter (statuses as of 07/16/2023) Medications Medication Sig Dispensed Refills Start Date [...] as of this encounter (statuses as of 07/16/2023) Active Problems Problem Noted Date Diagnosed Date 1st degree AV block 05/05/2023 S/P TAVR (transcatheter aortic valve replacement ) 05/03/2023 BMI less than 19,adult 03/16/2023 Senile osteoporosis 09/28/2022 Protein-calorie malnutrition 07/07/2022 Neuromuscular disorder 07/07/2022 PHT (pulmonary hypertension) 06/02/2021 Hx of melanoma of skin 03/24/2021 Overview: Hx MM date 2013, Depth unknown, no SLN, Location R faith PSVT (paroxysmal supraventricular tachycardia) 0 12/15/2019 Raynaud's disease without gangrene 06/02/2019 Esophageal dysmotility 05/20/2019 JULIUS (obstructive sleep apnea) 05/20/2019 ILD (interstitial lung disease) 05/20/2019 Coronary artery disease invo lving [place] coronary artery of [place] heart without angina pectoris 03/24/2019 Nonrheumatic mitral valve stenosis 03/24/2019 H/O Hodgkin's lymphoma 07/05/2018 Acquired hypothyroidism 07/05/2018 documented as of this encounter (statuses as of 07/16/2023) Resolved Problems Problem Noted Date Diagnosed Date Resolved Date Osteoporotic fracture of left hip 09/28/2022 03/14/2023 Aortic root enlargement 07/07/2022 11/2 08/2022 Sinus tachycardia 03/16/2022 03/14/2023 Hx of nonmelanoma skin cancer 03/24/2021 05/14/2023 Overview: Hx MM date 2013, Depth unknown, no SLN, Location R faith (still no path in chart, pt confirmed that he had surgery for melanoma at that site and for BCC prior, see below) BCC R forehead 2008 ([facility]) Prediabetes 02/28/2021 02/01/2023 Overview: Per Prediabetes protocol Moderate protein malnutrition 12/15/2019 03/14/2023 Ankylosing spondylitis of cervical region 12/15/2019 07/07/2022 Moderate aortic stenosis 03/24/2019 H/O atrial fibrillation with out current medication 07/05/2018 03/14/2023 documented as of this encounter (statuses as of 07/16/2023) Immunizations Name Administration Dates Next Due COVID-19 mRNA, LNP-s, No Pre serve, 2-Dose Series (Moderna) 08/21/2020,07/17/2020 COVID-19, MRNA-LNP, 23-24, P F, 30 MCG/0.3 mL, 12 YRS AND ABOVE, IM ([employer] care[employer]) 03/27/2023 COVID-19, mRNA, LNP-s, PF, B ooster, [...] Sign Reading Time Taken Comments Blood Pressure 120/78 07/16/2023 11:51 AM EST Pulse - - Temperature - - Respiratory Rate - - Oxygen Saturation - - Inhaled Oxygen Concentration - - Weight 64.2 kg (141 lb 8 oz) 07/16/2023 11:51 AM EST Height - - Body Mass Index 18.67 07/09/2023 2:11 PM EST documented in this encounter Functional Status Functional Status Response Date of Assess ment Do you have serious difficul ty walking or climbing stairs? (5 years old or older) No 05/04/2023 documented as of this encounter Nursing Notes * Verona Rodriguez RN - 07/16/2023 11:51 AM EST Pt participated in Cardiac Rehab today with no complications. Exercise regimen per protocol. documented in this encounter Plan of Treatment Upcoming Encounters Date Type Department Care Team (Late st Contact Info) Description 07/18/2023 11:30 AM EST Nurse Only Cardiac Rehab, [facility] [address] [place] [address] [facility], Nurse Cardiac Rehab [address] [place] [address] 07/20/2023 11:30 AM EST Nurse Only Cardiac Rehab, [address] [place] [address] [facility], Nurse Cardiac Rehab [address] [place] [address], [place] [address] 07/23/2023 11:30 AM EST Nurse Only Cardiac Rehab, [address] [place] [address] [facility], Nurse Cardiac Rehab [address] [place] [address], [place] [address] 07/25/2023 11:30 AM EST Nurse Only Cardiac Rehab, [address] [place] [address] [facility], Nurse Cardiac Rehab [address] [place] [address], [place] [address] 07/27/2023 11:30 AM EST Nurse Only Cardiac Rehab, [address] [place] [address] [facility], Nurse Cardiac Rehab [address] [place] [address], [place] [address] 07/30/2023 11:30 AM EST Nurse Only Cardiac Rehab, [address] [place] [address] [facility], Nurse Cardiac Rehab [address] [place] [address], [place] [address] 08/01/2023 11:30 AM EST Nurse Only Cardiac Rehab, [address] [place] [address] [facility], Nurse Cardiac Rehab [address] [place] [address], [place] [address] 08/03/2023 11:30 AM EST Nurse Only Cardiac Rehab, [address] [place] [address] [facility], Nurse Cardiac Rehab [address] [facility] [place] [address] 08/06/2023 11:30 AM EST Nurse Only Cardiac Rehab, [facility] [address] [place] [address], [place] [address] [facility], Nurse Cardiac Rehab [facility] [facility] [place] [address] 08/08/2023 11:30 AM EST Nurse Only Cardiac Rehab, [facility] [address] [place] [address], [place] [address] G[facility], Nurse Cardiac Rehab [address] [place] [address], [place] [address] 08/10/2023 11:30 AM EST Nurse Only Cardiac Rehab, [address] [place] [address] [facility], Nurse Cardiac Rehab [address] [place] [address], [place] [address] 08/13/2023 11:30 AM EST Nurse Only Cardiac Rehab, [address] [place] [address] [facility], Nurse Cardiac Rehab [address] [place] [address], [place] [address] 08/15/2023 11:30 AM EST Nurse Only Cardiac Rehab, [address] [place] [address] [facility], Nurse Cardiac Rehab [address] [place] [address], [place] [address] 08/17/2023 11:30 AM EST Nurse Only Cardiac Rehab, [address] [place] [address] [facility], Nurse Cardiac Rehab [address] [place] [address], [place] [address] 08/20/2023 11:30 AM EST Nurse Only Cardiac Rehab, [facility] [address] [place] [address], [place] [address] [facility], Nurse Cardiac Rehab [address] [place] [address], [place] [address] 08/21/2023 2:15 PM EST Office Visit Cardiology, [facility] [address] [facility] [place] [address] Izzy Patiño, [address] [place] [address] 08/22/2023 11:30 AM EST Nurse Only Cardiac Rehab, [address] [place] [address] [facility], Nurse Cardiac Rehab [address] [place] [address], [place] [address] 08/24/2023 11:30 AM EST Nurse Only Cardiac Rehab, [facility] [address] [place] [address], [place] [address] Gjsh, Nurse Cardiac Rehab [address] [place] [address], [place] [address] 08/27/2023 11:30 AM EDT Nurse Only Cardiac Rehab, [address] [place] [address] [facility], Nurse Cardiac Rehab [address] [place] [address], [place] [address] 08/29/2023 11:30 AM EDT Nurse Only Cardiac Rehab, [address] [place] [address] [facility], Nurse Cardiac Rehab [address] [place] [address], [place] [address] 09/14/2023 1:20 PM EDT Office Visit Family Practice [facility] [address] [place] [address] Dewayne Pena MD [address] [place] [address] 10/02/2023 1:40 PM EDT Office Visit Rheumatology [address] [place] [address] Timo Guzman MD [address] [place] [address] 04/15/2024 10:40 AM EDT Office Visit Dermatology [facility] [address] [place] [address] Jonnathan House PA-C [address] [place] [place] [address] Health Maintenance Due Date Last Done [...] D LEVEL ONCE IN A LIFETIME-USE SMARTSET# [id number] Completed 11/03/2022, 11/20/2018 Influenza Vaccine (FLU shot) [...] this encounter Medical Devices Implanted Type Area Driver Engineer Device Identifier Shelf Expiration Date Model / Serial / Lot Cath Thermodilution 6fr - [id number] Implanted:Qty: 1 on 03/07/2023 by Armando Beltran MD at [facility] [place] [employer] [id number] 10/10/2024 [id number] / / [id number] Valve Aortic Transcath Fx 34mm - [id number] Implanted:Qty: 1 on 05/03/2023 by Armando Beltran MD [place] [facility] [place] [employer] [id number] 08/10/2024 EVOLUTFX- 34 / [id number] / [id number] documented as of this encounter Visit Diagnoses Diagnosis S/P TAVR (transcatheter aortic valve replacement)- Primary Heart valve replaced by other means documented in this encounter Advance Directives Documents on File Type Date Recorded Patient Sales Representative Adding Machines Expl anation POLST 03/06/2022 [place] OR DERS [...] Direct lorenzo occurred with: Patient Care Teams Shot Coat Tender Relationship Specialty Start Date End Date Dewayne ePna MD [address] [place] [address] PCP - General Family Medicine 04/30/23 documented as of this encounter
--- OUTSIDE RECORDS SUMMARY | 2023-10-08 23:09 | External Medical Summary | Summary of Care ---
Author Name Unknown Organization [facility] Address [address] [place] [address] Phone [phone] Care Team Providers Care Traffic Observer Name Role Phone Dewayne Pena MD Primary Care Provider [phone] Reason for Visit * Reason Comments Cardiac Rehab Encounter Details Date Type Department Care Team (Late st Contact Info) Description 07/13/2023 11:30 AM EST Nurse Only Cardiac Rehab, [facility] [address] [place] [address] [facility], Nurse Cardiac Rehab [address] [place] [address] Cardiac Rehab Allergies No known active allergiesdocumented as of this encounter (statuses as of 07/13/2023) Medications Medication Sig Dispensed Refills Start Date [...] as of this encounter (statuses as of 07/13/2023) Active Problems Problem Noted Date Diagnosed Date 1st degree AV block 05/05/2023 S/P TAVR (transcatheter aortic valve replacement ) 05/03/2023 BMI less than 19,adult 03/16/2023 Senile osteoporosis 09/28/2022 Protein-calorie malnutrition 07/07/2022 Neuromuscular disorder 07/07/2022 PHT (pulmonary hypertension) 06/02/2021 Hx of melanoma of skin 03/24/2021 Overview: Hx MM date 2013, Depth unknown, no SLN, Location R denominational PSVT (paroxysmal supraventricular tachycardia) 0 12/15/2019 Raynaud's disease without gangrene 06/02/2019 Esophageal dysmotility 05/20/2019 JULIUS (obstructive sleep apnea) 05/20/2019 ILD (interstitial lung disease) 05/20/2019 Coronary artery disease invo lving [place] coronary artery of [place] heart without angina pectoris 03/24/2019 Nonrheumatic mitral valve stenosis 03/24/2019 H/O Hodgkin's lymphoma 07/05/2018 Acquired hypothyroidism 07/05/2018 documented as of this encounter (statuses as of 07/13/2023) Resolved Problems Problem Noted Date Diagnosed Date Resolved Date Osteoporotic fracture of left hip 09/28/2022 03/14/2023 Aortic root enlargement 07/07/2022 11/2 08/2022 Sinus tachycardia 03/16/2022 03/14/2023 Hx of nonmelanoma skin cancer 03/24/2021 05/14/2023 Overview: Hx MM date 2013, Depth unknown, no SLN, Location R denominational (still no path in chart, pt confirmed that he had surgery for melanoma at that site and for BCC prior, see below) BCC R forehead 2008 ([facility]) Prediabetes 02/28/2021 02/01/2023 Overview: Per Prediabetes protocol Moderate protein malnutrition 12/15/2019 03/14/2023 Ankylosing spondylitis of cervical region 12/15/2019 07/07/2022 Moderate aortic stenosis 03/24/2019 H/O atrial fibrillation with out current medication 07/05/2018 03/14/2023 documented as of this encounter (statuses as of 07/13/2023) Immunizations Name Administration Dates Next Due COVID-19 mRNA, LNP-s, No Pre serve, 2-Dose Series (Moderna) 08/21/2020,07/17/2020 COVID-19, MRNA-LNP, 23-24, P F, 30 MCG/0.3 mL, 12 YRS AND ABOVE, IM ([facility]) 03/27/2023 COVID-19, mRNA, LNP-s, PF, B ooster, [...] Sign Reading Time Taken Comments Blood Pressure 138/78 07/13/2023 11:53 AM EST Pulse 94 07/13/2023 11:53 AM EST Temperature - - Respiratory Rate - - Oxygen Saturation - - Inhaled Oxygen Concentration - - Weight 64.1 kg (141 lb 6.4 oz) 07/13/2023 11:53 AM EST Height - - Body Mass Index 18.66 07/09/2023 2:11 PM EST documented in this encounter Functional Status Functional Status Response Date of Assess ment Do you have serious difficul ty walking or climbing stairs? (5 years old or older) No 05/04/2023 documented as of this encounter Nursing Notes * Zoraida Del Rosario RN - 07/13/2023 11:53 AM EST Patient tolerated Cardiac Rehab exercise without difficulty. Patient doing well, going through exercise prescription well today. No c/o cp or sob. documented in this encounter Plan of Treatment Upcoming Encounters Date Type Department Care Team (Late st Contact Info) Description 07/16/2023 11:30 AM EST Nurse Only Cardiac Rehab, [facility] [address] [place] [address] G[facility], Nurse Cardiac Rehab [address] [place] [address], [place] [address] 07/18/2023 11:30 AM EST Nurse Only Cardiac Rehab, [facility] [address] [place] [address], [place] [address] [facility], Nurse Cardiac Rehab [address] [place] [address], [place] [address] 07/20/2023 11:30 AM EST Nurse Only Cardiac Rehab, [address] [place] [address] [place], Nurse Cardiac Rehab [address] [place] [address], [place] [address] 07/23/2023 11:30 AM EST Nurse Only Cardiac Rehab, [address] [place] [address] [place], Nurse Cardiac Rehab [address] [place] [address], [place] [address] 07/25/2023 11:30 AM EST Nurse Only Cardiac Rehab, [address] [place] [address] [place], Nurse Cardiac Rehab [address] [place] [address], [place] [address] 07/27/2023 11:30 AM EST Nurse Only Cardiac Rehab, [address] [place] [address] [place], Nurse Cardiac Rehab [address] [place] [address], [place] [address] 07/30/2023 11:30 AM EST Nurse Only Cardiac Rehab, [address] [place] [address] [place], Nurse Cardiac Rehab [address] [place] [address], [place] [address] 08/01/2023 11:30 AM EST Nurse Only Cardiac Rehab, [facility] [address] [place] [address] [place], Nurse Cardiac Rehab [address] [place] [address] 08/03/2023 11:30 AM EST Nurse Only Cardiac Rehab, [facility] [address] [place] [address], [place] [address] [place], Nurse Cardiac Rehab [address] [place] [address] 08/06/2023 11:30 AM EST Nurse Only Cardiac Rehab, [address] [place] [address] [place], Nurse Cardiac Rehab [address] [place] [address], [place] [address] 08/08/2023 11:30 AM EST Nurse Only Cardiac Rehab, [place] [address] [place] [address] [place], Nurse Cardiac Rehab [address] [place] [address], [place] [address] 08/10/2023 11:30 AM EST Nurse Only Cardiac Rehab, [address] [place] [address] [facility], Nurse Cardiac Rehab [address] [place] [address], [place] [address] 08/13/2023 11:30 AM EST Nurse Only Cardiac Rehab, [address] [place] [address] [place], Nurse Cardiac Rehab [address] [place] [address], [place] [address] 08/15/2023 11:30 AM EST Nurse Only Cardiac Rehab, [address] [place] [address] [place], Nurse Cardiac Rehab [address] [place] [address], [place] [address] 08/17/2023 11:30 AM EST Nurse Only Cardiac Rehab, [facility] [address] [place] [address], [place] [address] [facility], Nurse Cardiac Rehab [address] [place] [address], [place] [address] 08/20/2023 11:30 AM EST Nurse Only Cardiac Rehab, [address], [place] [address] [place], Nurse Cardiac Rehab [address] [place] [address], [place] [address] 08/21/2023 2:15 PM EST Office Visit Cardiology, [address] [place] [address] Izzy Patiño, [address] [place] [address] 08/22/2023 11:30 AM EST Nurse Only Cardiac Rehab, [address], [place] [address] [facility], Nurse Cardiac Rehab [address] [place] [address], [place] [address] 08/24/2023 11:30 AM EST Nurse Only Cardiac Rehab, [address], [place] [address] [place], Nurse Cardiac Rehab [address] [place] [address], [place] [address] 08/27/2023 11:30 AM EDT Nurse Only Cardiac Rehab, [address], [place] [address] [place], Nurse Cardiac Rehab [address] [place] [address], [place] [address] 08/29/2023 11:30 AM EDT Nurse Only Cardiac Rehab, [address] [address] [facility], Nurse Cardiac Rehab [address] [place] [address] 09/14/2023 1:20 PM EDT Office Visit Family Practice [facility] [address] [place] [address] Dewayne Pena MD [address] [place] [address] 10/02/2023 1:40 PM EDT Office Visit Rheumatology [place] [id number] [facility] [employer] [place] [address] Timo Guzman MD [facility] [employer] [place] [address] 04/15/2024 10:40 AM EDT Office Visit Dermatology [facility] [address] [place] [address] Jonnathan House PA-C [address] [place] [address] Health Maintenance Due Date Last Done Comments [...] D LEVEL ONCE IN A LIFETIME-USE SMARTSET# [id number] Completed 11/03/2022, 11/20/2018 Influenza Vaccine (FLU shot) [...] this encounter Medical Devices Implanted Type Area Double Ending Machine Operator Device Identifier Shelf Expiration Date Model / Serial / Lot Cath Thermodilution 6fr - [id number] Implanted:Qty: 1 on 03/07/2023 by Armando Beltran MD at [facility] [place] [employer] KRISTYN [id number] 10/10/2024 [id number] / / [id number] Valve Aortic Transcath Fx 34mm - [id number] Implanted:Qty: 1 on 05/03/2023 by Armando Beltran MD at [facility] [place] [employer] [id number] 08/10/2024 EVOLUTFX- 34 / [id number] / [id number] documented as of this encounter Visit Diagnoses Diagnosis S/P TAVR (transcatheter aortic valve replacement)- Primary Heart valve replaced by other means documented in this encounter Advance Directives Documents on File Type Date Recorded Patient Tape Maker Expl anation POLST 03/06/2022 [place] DERS FOR LIFE-SUSTAINING TREATMENT POLST 12/13/2021 [place] [facility]S FOR LIFE-SUSTAINING TREATMENT Latest Code Status on [...] Direct lorenzo occurred with: Patient Care Teams Traffic Observer Relationship Specialty Start Date End Date Dewayne Pena MD [address] [place] [address] PCP - General Family Medicine 04/30/23 documented as of this encounter
--- OUTSIDE RECORDS SUMMARY | 2023-10-08 23:09 | External Medical Summary | Summary of Care ---
Author Name Unknown Organization [facility] Address [address] [place] [address] Phone [phone] Care Team Providers Care Senior Sql Database Developer Name Role Phone Dewayne Pena MD Primary Care Provider [phone] Reason for Visit * Reason Comments Cardiac Rehab Encounter Details Date Type Department Care Team (Late st Contact Info) Description 07/18/2023 11:30 AM EST Nurse Only Cardiac Rehab, [facility] [address] [place] [address] [facility], Nurse Cardiac Rehab [address] [place] [address] Cardiac Rehab Allergies No known active allergiesdocumented as of this encounter (statuses as of 07/18/2023) Medications Medication Sig Dispensed Refills Start Date [...] as of this encounter (statuses as of 07/18/2023) Active Problems Problem Noted Date Diagnosed Date 1st degree AV block 05/05/2023 S/P TAVR (transcatheter aortic valve replacement ) 05/03/2023 BMI less than 19,adult 03/16/2023 Senile osteoporosis 09/28/2022 Protein-calorie malnutrition 07/07/2022 Neuromuscular disorder 07/07/2022 PHT (pulmonary hypertension) 06/02/2021 Hx of melanoma of skin 03/24/2021 Overview: Hx MM date 2013, Depth unknown, no SLN, Location R adventism PSVT (paroxysmal supraventricular tachycardia) 0 12/15/2019 Raynaud's disease without gangrene 06/02/2019 Esophageal dysmotility 05/20/2019 JULIUS (obstructive sleep apnea) 05/20/2019 ILD (interstitial lung disease) 05/20/2019 Coronary artery disease invo lving [place] coronary artery of [place] heart without angina pectoris 03/24/2019 Nonrheumatic mitral valve stenosis 03/24/2019 H/O Hodgkin's lymphoma 07/05/2018 Acquired hypothyroidism 07/05/2018 documented as of this encounter (statuses as of 07/18/2023) Resolved Problems Problem Noted Date Diagnosed Date Resolved Date Osteoporotic fracture of left hip 09/28/2022 03/14/2023 Aortic root enlargement 07/07/2022 11/2 08/2022 Sinus tachycardia 03/16/2022 03/14/2023 Hx of nonmelanoma skin cancer 03/24/2021 05/14/2023 Overview: Hx MM date 2013, Depth unknown, no SLN, Location R adventism (still no path in chart, pt confirmed that he had surgery for melanoma at that site and for BCC prior, see below) BCC R forehead 2008 ([facility]) Prediabetes 02/28/2021 02/01/2023 Overview: Per Prediabetes protocol Moderate protein malnutrition 12/15/2019 03/14/2023 Ankylosing spondylitis of cervical region 12/15/2019 07/07/2022 Moderate aortic stenosis 03/24/2019 H/O atrial fibrillation with out current medication 07/05/2018 03/14/2023 documented as of this encounter (statuses as of 07/18/2023) Immunizations Name Administration Dates Next Due COVID-19 mRNA, LNP-s, No Pre serve, 2-Dose Series (Moderna) 08/21/2020,07/17/2020 COVID-19, MRNA-LNP, 23-24, P F, 30 MCG/0.3 mL, 12 YRS AND ABOVE, IM [facility] 03/27/2023 COVID-19, mRNA, LNP-s, PF, B ooster, [...] Sign Reading Time Taken Comments Blood Pressure 136/70 07/18/2023 11:38 AM EST Pulse 94 07/18/2023 11:38 AM EST Temperature - - Respiratory Rate - - Oxygen Saturation - - Inhaled Oxygen Concentration - - Weight 63.8 kg (140 lb 11.2 oz) 024 11:38 AM EST Height - - Body Mass Index 18.56 07/09/2023 2:11 PM EST documented in this encounter Functional Status Functional Status Response Date of Assess ment Do you have serious difficul ty walking or climbing stairs? (5 years old or older) No 05/04/2023 documented as of this encounter Nursing Notes * Verona Rodriguez, RN - 07/18/2023 11:39 AM EST Pt participated in Cardiac Rehab today with no complications. Exercise regimen per protocol. documented in this encounter Plan of Treatment Upcoming Encounters Date Type Department Care Team (Late st Contact Info) Description 07/20/2023 11:30 AM EST Nurse Only Cardiac Rehab, [place] [address] [facility], Nurse Cardiac Rehab [address] [place] [address], [place] [address] 07/23/2023 11:30 AM EST Nurse Only Cardiac Rehab, [facility] [address] [place] [address], [place] [address] [place], Nurse Cardiac Rehab [address] [place] [address], [place] [address] 07/25/2023 11:30 AM EST Nurse Only Cardiac Rehab, [address] [place] [address] [place], Nurse Cardiac Rehab [address] [place] [address], [place] [address] 07/27/2023 11:30 AM EST Nurse Only Cardiac Rehab, [address] [place] [address] [place], Nurse Cardiac Rehab [address] [place] [address], [place] [address] 07/30/2023 11:30 AM EST Nurse Only Cardiac Rehab, [address] [place] [address] [place], Nurse Cardiac Rehab [address] [place] [address], [place] [address] 08/01/2023 11:30 AM EST Nurse Only Cardiac Rehab, [address] [place] [address] [place], Nurse Cardiac Rehab [address] [place] [address], [place] [address] 08/03/2023 11:30 AM EST Nurse Only Cardiac Rehab, [address] [place] [address] [place], Nurse Cardiac Rehab [address] [place] [address], [place] [address] 08/06/2023 11:30 AM EST Nurse Only Cardiac Rehab, [address] [place] [address] [place], Nurse Cardiac Rehab [facility] [place] [address] 08/08/2023 11:30 AM EST Nurse Only Cardiac Rehab, [facility] [address] [place] [address], [place] [address] [place], Nurse Cardiac Rehab [facility] [place] [address] 08/10/2023 11:30 AM EST Nurse Only Cardiac Rehab, [address] [place] [address] [place], Nurse Cardiac Rehab [address] [place] [address], [place] [address] 08/13/2023 11:30 AM EST Nurse Only Cardiac Rehab, [address] [place] [address] [place], Nurse Cardiac Rehab [address] [place] [address], [place] [address] 08/15/2023 11:30 AM EST Nurse Only Cardiac Rehab, [address] [place] [address] [place], Nurse Cardiac Rehab [address] [place] [address], [place] [address] 08/17/2023 11:30 AM EST Nurse Only Cardiac Rehab, [address] [place] [address] [place], Nurse Cardiac Rehab [address] [place] [address], [place] [address] 08/20/2023 11:30 AM EST Nurse Only Cardiac Rehab, [address] [place] [address] [place], Nurse Cardiac Rehab [address] [place] [address], [place] [address] 08/21/2023 2:15 PM EST Office Visit Cardiology, [facility] [address] [place] [address] Izyz Patiño, [address] [place] [address] 08/22/2023 11:30 AM EST Nurse Only Cardiac Rehab, [address] [place] [address] [place], Nurse Cardiac Rehab [address] [place] [address], [place] [address] 08/24/2023 11:30 AM EST Nurse Only Cardiac Rehab, [address] [place] [address] [place], Nurse Cardiac Rehab [address] [place] [address], [place] [address] 08/27/2023 11:30 AM EDT Nurse Only Cardiac Rehab, [address] [place] [address] [place], Nurse Cardiac Rehab [address] [place] [address], [place] [address] 08/29/2023 11:30 AM EDT Nurse Only Cardiac Rehab, [address] [place] [address] [place], Nurse Cardiac Rehab [address] [place] [address], [place] [address] 09/14/2023 1:20 PM EDT Office Visit Family Practice [facility] [address] [place] [address] Dewayne Pena MD [address] [place] [address] 10/02/2023 1:40 PM EDT Office Visit [address]umatology [address] [address] Timo Guzman MD [address] [facility], [place] [address] 04/15/2024 10:40 AM EDT Office Visit Dermatology [facility] [address] [place] [address] Jonnathan House PA-C [address] [place] [address] Health Maintenance Due Date Last Done Comments [...] D LEVEL ONCE IN A LIFETIME-USE SMARTSET# [id number] Completed 11/03/2022, 11/20/2018 Influenza Vaccine (FLU shot) [...] this encounter Medical Devices Implanted Type Area Child Care Sitter Device Identifier Shelf Expiration Date Model / Serial / Lot Cath Thermodilution 6fr - [id number] Implanted:Qty: 1 on 03/07/2023 by Armando Beltran MD at [facility] [place] [employer] KRISTYN [id number] 10/10/2024 [id number] / / [id number] Valve Aortic Transcath Fx 34mm - [id number] Implanted:Qty: 1 on 05/03/2023 by Armando Beltran MD at [facility] [place] [employer] [id number] 08/10/2024 EVOLUTFX- 34 / [id number] / [id number] documented as of this encounter Visit Diagnoses Diagnosis S/P TAVR (transcatheter aortic valve replacement)- Primary Heart valve replaced by other means documented in this encounter Advance Directives Documents on File Type Date Recorded Patient Macaroni Press Operator Expl anation POLST 03/06/2022 [place] OR DERS [...] Direct lorenzo occurred with: Patient Care Teams Senior Sql Database Developer Relationship Specialty Start Date End Date Dewayne Pena MD [address] [place] [address] PCP - General Family Medicine 04/30/23 documented as of this encounter
--- OUTSIDE RECORDS SUMMARY | 2023-10-08 23:09 | External Medical Summary | Summary of Care ---
Author Name Unknown Organization [facility] Address [address] [place] [address] Phone [phone] Care Team Providers Care Cement Mason [employer] [address] Name Role Phone Dewayne Pena MD Primary Care Provider [phone] [phone] Reason for Visit * Reason Comments Cardiac Rehab Encounter Details Date Type Department Care Team (Late st Contact Info) Description 07/20/2023 11:30 AM EST Nurse Only Cardiac Rehab, [facility] [address] [place] [id number] [facility], Nurse Cardiac Rehab [address] [place] [address] Cardiac Rehab Allergies No known active allergiesdocumented as of this encounter (statuses as of 07/20/2023) Medications Medication Sig Dispensed Refills Start Date [...] as of this encounter (statuses as of 07/20/2023) Active Problems Problem Noted Date Diagnosed Date [...] disease) 05/20/2019 Coronary artery disease invo lving [place] coronary artery of [place] heart without angina pectoris 03/24/2019 Nonrheumatic mitral valve stenosis 03/24/2019 H/O Hodgkin's lymphoma 07/05/2018 Acquired hypothyroidism 07/05/2018 documented as of this encounter (statuses as of 07/20/2023) Resolved Problems Problem Noted Date Diagnosed Date [...] below) BCC R forehead 2008 ([facility]) Prediabetes 02/28/2021 02/01/2023 Overview: Per Prediabetes protocol Moderate protein malnutrition 12/15/2019 03/14/2023 Ankylosing spondylitis of cervical region 12/15/2019 07/07/2022 Moderate aortic stenosis 03/24/2019 H/O atrial fibrillation with out current medication 07/05/2018 03/14/2023 documented as of this encounter (statuses as of 07/20/2023) Immunizations Name Administration Dates Next Due COVID-19 mRNA, LNP-s, No Pre serve, 2-Dose Series (Moderna) 08/21/2020,07/17/2020 COVID-19, MRNA-LNP, 23-24, P F, 30 MCG/0.3 mL, 12 YRS AND ABOVE, IM ([employer]) 03/27/2023 COVID-19, mRNA, LNP-s, PF, B ooster, [...] Sign Reading Time Taken Comments Blood Pressure 126/84 07/20/2023 11:50 AM EST Pulse 94 07/20/2023 11:50 AM EST Temperature - - Respiratory Rate - - Oxygen Saturation - - Inhaled Oxygen Concentration - - Weight 63.8 kg (140 lb 9.6 oz) 07/20/2023 11:50 AM EST Height - - Body Mass Index 18.55 07/09/2023 2:11 PM EST documented in this encounter Functional Status Functional Status Response Date of Assess ment Do you have serious difficul ty walking or climbing stairs? (5 years old or older) No 05/04/2023 documented as of this encounter Nursing Notes * Zoraida Del Rosario RN - 07/20/2023 11:52 AM EST Patient tolerated Cardiac Rehab exercise without difficulty. No complaints of pain or shortness of breath documented in this encounter Plan of Treatment Upcoming Encounters Date Type Department Care Team (Late st Contact Info) Description 07/23/2023 11:30 AM EST Nurse Only Cardiac Rehab, [place] [address] [facility], Nurse Cardiac Rehab 10[address] [place] [address] 07/25/2023 11:30 AM EST Nurse Only Cardiac Rehab, [facility] [address] [place] [address], [place] [address] [facility], Nurse Cardiac Rehab [address] [place] [address], [place] [address] 07/27/2023 11:30 AM EST Nurse Only Cardiac Rehab, [address] [place] [address] [facility], Nurse Cardiac Rehab [address] [place] [address], [place] [address] 07/30/2023 11:30 AM EST Nurse Only Cardiac Rehab, [address] [place] [address] [facility], Nurse Cardiac Rehab [address] [place] [address], [place] [address] 08/01/2023 11:30 AM EST Nurse Only Cardiac Rehab, [address] [place] [address] [facility], Nurse Cardiac Rehab [address] [place] [address], [place] [address] 08/03/2023 11:30 AM EST Nurse Only Cardiac Rehab, [address] [place] [address] [facility], Nurse Cardiac Rehab [address] [place] [address], [place] [address] 08/06/2023 11:30 AM EST Nurse Only Cardiac Rehab, [address] [place] [address] [facility], Nurse Cardiac Rehab [address] [place] [address], [place] [address] 08/08/2023 11:30 AM EST Nurse Only Cardiac Rehab, [address] [place] [address] [facility], Nurse Cardiac Rehab [address] [place] [address], [place] [address] 08/10/2023 11:30 AM EST Nurse Only Cardiac Rehab, [address] [place] [address] [facility], Nurse Cardiac Rehab [address] [place] [address], [place] [address] 08/13/2023 11:30 AM EST Nurse Only Cardiac Rehab, [address] [place] [address] [facility], Nurse Cardiac Rehab [address] [place] [address], [place] [address] 08/15/2023 11:30 AM EST Nurse Only Cardiac Rehab, [address] [place] [address] [facility], Nurse Cardiac Rehab [address] [place] [address], [place] [address] 08/17/2023 11:30 AM EST Nurse Only Cardiac Rehab, [address] [place] [address] [facility], Nurse Cardiac Rehab [address] [place] [address], [place] [address] 08/20/2023 11:30 AM EST Nurse Only Cardiac Rehab, [address] [place] [address] [facility], Nurse Cardiac Rehab [address] [place] [address], [place] [address] 08/21/2023 2:15 PM EST Office Visit Cardiology, [facility] 132 [facility] [place] [address] Izzy Patiño, [address] [place] [id number] 08/22/2023 11:30 AM EST Nurse Only Cardiac Rehab, [address] [place] [address] [facility], Nurse Cardiac Rehab [address] [place] [address], [place] [address] 08/24/2023 11:30 AM EST Nurse Only Cardiac Rehab, [address] [place] [address] [facility], Nurse Cardiac Rehab [address] [place] [address], [place] [address] 08/27/2023 11:30 AM EDT Nurse Only Cardiac Rehab, [address] [place] [address] [facility], Nurse Cardiac Rehab [address] [place] [address] 08/29/2023 11:30 AM EDT Nurse Only Cardiac Rehab, [address] [address] [facility], Nurse Cardiac Rehab [address] [place] [address] 09/14/2023 1:20 PM EDT Office Visit Family Practice [facility] [address] [place] [address] Dewayne Pena MD 132 [facility] [place] [address] 10/02/2023 1:40 PM EDT Office Visit Rheumatology [address] [place] [address] Timo Guzman MD [address] [place] [address] [place] [address] 04/15/2024 10:40 AM EDT Office Visit [address] [phone] Jonnathan House PA-C [address] [place] [address] Health Maintenance Due Date Last Done Comments [...] D LEVEL ONCE IN A LIFETIME-USE SMARTSET# 05366 Completed 11/03/2022, 11/20/2018 Influenza Vaccine (FLU shot) [...] this encounter Medical Devices Implanted Type Area Data Support Analyst Device Identifier Shelf Expiration Date Model / Serial / Lot Cath Thermodilution 6fr - [id number] Implanted:Qty: 1 on 03/07/2023 by Armando Beltran MD at [facility] [place] [employer] KRISTYN [id number] 10/10/2024 [id number] / / [id number] Valve Aortic Transcath Fx 34mm - [id number] Implanted:Qty: 1 on 05/03/2023 by Armando Beltran MD at [facility] [place] [employer] [id number] 08/10/2024 EVOLUTFX- 34 / [id number] / [id number] documented as of this encounter Visit Diagnoses Diagnosis S/P TAVR (transcatheter aortic valve replacement)- Primary Heart valve replaced by other means documented in this encounter Advance Directives Documents on File Type Date Recorded Patient Clinical Laboratory Technician Expl anation POLST 03/06/2022 [place] DERS [...] Direct lorenzo occurred with: Patient Care Teams C[employer] Relationship Specialty Start Date End Date Dewayne Pena MD 132 [facility] [place] [address] PCP - General Family Medicine 04/30/23 documented as of this encounter
--- OUTSIDE RECORDS SUMMARY | 2023-10-08 23:09 | External Medical Summary | Summary of Care ---
Author Name Unknown Organization [facility] Address [address] [place] [address] Phone [phone] Care Team Providers Care Refuse Collector Name Role Phone Dewayne Pena MD Primary Care Provider [phone] [phone] Reason for Visit * Reason Comments Cardiac Rehab Encounter Details Date Type Department Care Team (Late st Contact Info) Description 07/18/2023 11:30 AM EST Nurse Only Cardiac Rehab, [facility] [address] [place] [address] [facility], Nurse Cardiac Rehab [address] [place] [address] Cardiac Rehab Allergies No known active allergiesdocumented [...] 2013, Depth unknown, no SLN, Location R orthodoxy PSVT (paroxysmal supraventricular tachycardia) 0 12/15/2019 Raynaud's disease without gangrene 06/02/2019 Esophageal dysmotility 05/20/2019 JULIUS (obstructive sleep apnea) 05/20/2019 ILD (interstitial lung disease) 05/20/2019 Coronary artery disease invo lving [place] coronary artery of [place] heart without angina pectoris 03/24/2019 Nonrheumatic mitral [...] 2013, Depth unknown, no SLN, Location R orthodoxy (still no path in chart, pt confirmed that he had surgery for melanoma at that site and for BCC prior, see below) BCC R forehead 2008 ([facility]) Prediabetes 02/28/2021 02/01/2023 Overview: Per Prediabetes protocol [...] MCG/0.3 mL, 12 YRS AND ABOVE, IM ([employer]) 03/27/2023 COVID-19, mRNA, LNP-s, PF, B ooster, [...] Nursing Notes * Verona Rodriguez RN - 07/18/2023 11:39 AM EST Pt participated in Cardiac Rehab today with no complications. Exercise regimen per protocol. Pt had an episode of atrial tach during recovery period, see strip in chart. His HR was 147. Resolved on its own quickly, pt was asymptomatic. According to recent Zio results and pt history, this is not new. Will monitor during sessions. Discharged in SR with blood pressure of 135/88. documented in this encounter Plan of Treatment Upcoming Encounters Date Type Department Care Team (Late st Contact Info) Description 07/20/2023 11:30 AM EST Nurse Only Cardiac Rehab, [address] [place] [address] [facility], Nurse Cardiac Rehab [address] [place] [address], [place] [address] 07/23/2023 11:30 AM EST Nurse Only Cardiac Rehab, [address] [place] [address] [facility], Nurse Cardiac Rehab [address] [place] [address], [place] [address] 07/25/2023 11:30 AM EST Nurse Only Cardiac Rehab, [address] [place] [address] [facility], Nurse Cardiac Rehab [address] [place] [address], [place] [address] 07/27/2023 11:30 AM EST Nurse Only Cardiac Rehab, [address] [place] [address] [facility], Nurse Cardiac Rehab [address] [place] [address], [place] [address] 07/30/2023 11:30 AM EST Nurse Only Cardiac Rehab, [address] [place] [address] [facility], Nurse Cardiac Rehab [address] [place] [address], [place] [address] 08/01/2023 11:30 AM EST Nurse Only Cardiac Rehab, [address] [place] [address] [facility], Nurse Cardiac Rehab [address] [place] [address], [place] [address] 08/03/2023 11:30 AM EST Nurse Only Cardiac Rehab, [address] [place] [address] [facility], Nurse Cardiac Rehab 1020 [facility] [place] [address] 08/06/2023 11:30 AM EST Nurse Only Cardiac Rehab, [facility] [address] [place] [address], [place] [address] G[facility], Nurse Cardiac Rehab [facility] [place] [address] 08/08/2023 11:30 AM EST Nurse Only Cardiac Rehab, [facility] [address] [place] [address], [place] [address] [facility], Nurse Cardiac Rehab [address] [place] [address], [place] [address] 08/10/2023 11:30 AM EST Nurse Only Cardiac Rehab, [address] [place] [address] [facility], Nurse Cardiac Rehab [address] [place] [address], [place] [address] 08/13/2023 11:30 AM EST Nurse Only Cardiac Rehab, [address] [place] [address] [facility], Nurse Cardiac Rehab [address] [place] [address], [place] [address] 08/15/2023 11:30 AM EST Nurse Only Cardiac Rehab, [address] [place] [address] [facility], Nurse Cardiac Rehab [address] [place] [address], [place] [address] 08/17/2023 11:30 AM EST Nurse Only Cardiac Rehab, [address] [place] [address] [facility], Nurse Cardiac Rehab [address] [place] [address], [place] [address] 08/20/2023 11:30 AM EST Nurse Only Cardiac Rehab, [facility] [address] [place] [address], [place] [address] G[facility], Nurse Cardiac Rehab [address] [place] [address], [place] [address] 08/21/2023 2:15 PM EST Office Visit Cardiology, [facility] 132 [facility] [place] [address] Izzy Patiño, [address] [place] [address] 08/22/2023 11:30 AM EST Nurse Only Cardiac Rehab, [address] [place] [address] [facility], Nurse Cardiac Rehab [address] [place] [address], [place] [address] 08/24/2023 11:30 AM EST Nurse Only Cardiac Rehab, [facility] [address] [place] [address], [place] [address] [facility], Nurse Cardiac Rehab [address] [place] [address], [place] [address] 08/27/2023 11:30 AM EDT Nurse Only Cardiac Rehab, [address] [place] [address] [facility], Nurse Cardiac Rehab [address] [place] [address], [place] [address] 08/29/2023 11:30 AM EDT Nurse Only Cardiac Rehab, [address] [place] [address] [facility], Nurse Cardiac Rehab [address] [place] [address], [place] [address] 09/14/2023 1:20 PM EDT Office Visit Family Practice [facility] [address] [place] [address] Dewayne Pena MD [address] [place] [address] 10/02/2023 1:40 PM EDT Office Visit Rheumatology [address] [place] [address] Timo Guzman MD [address] [employer] [place] [address] 04/15/2024 10:40 AM EDT Office Visit Dermatology [facility] [address] [place] [address] Jonnathan House PA-C [address] [place] [address] Health Maintenance Due Date Last Done [...] D LEVEL ONCE IN A LIFETIME-USE SMARTSET# 77027 Completed 11/03/2022, 11/20/2018 Influenza Vaccine (FLU shot) [...] encounter Medical Devices Implanted Type Area Director Of Partnerships Device Identifier Shelf Expiration Date Model / Serial / Lot Cath Thermodilution 6fr - [id number] Implanted:Qty: 1 on 03/07/2023 by Armando Beltran MD [place] [facility] [place] [employer] KRISTYN [id number] 10/10/2024 [id number] / / [id number] Valve Aortic Transcath Fx 34mm - [id number] Implanted:Qty: 1 on 05/03/2023 by Armando Beltran MD [place] [facility] [place] [employer] [id number] 08/10/2024 EVOLUTFX- 34 / [id number] / [id number] documented as of this encounter Visit Diagnoses Diagnosis S/P TAVR (transcatheter aortic valve replacement)- Primary Heart valve replaced by other means documented in this encounter Advance Directives Documents on File Type Date Recorded Patient Planing Machine Operator Expl anation POLST 03/06/2022 [place] OR [...] Direct lorenzo occurred with: Patient Care Teams Refuse Collector Relationship Specialty Start Date End Date Dewayne Pena MD [address] [place] [address] PCP - General Family Medicine 04/30/23 documented as of this encounter
--- OUTSIDE RECORDS SUMMARY | 2023-10-08 23:09 | External Medical Summary | Summary of Care ---
Author Name Unknown Organization [facility] Address [address] [place] [address] Phone [phone] Care Team Providers Care Bar Hostess Name Role Phone Dewayne Pena MD Primary Care Provider [phone] Reason for Visit * Reason Comments Cardiac Rehab Encounter Details Date Type Department Care Team (Late st Contact Info) Description 07/23/2023 11:30 AM EST Nurse Only Cardiac Rehab, [facility] [address] [place] [address] [facility], Nurse Cardiac Rehab [address] [place] [address] Cardiac Rehab Allergies No known active allergiesdocumented as of this encounter (statuses as of 07/23/2023) Medications Medication Sig Dispensed Refills Start Date [...] as of this encounter (statuses as of 07/23/2023) Active Problems Problem Noted Date Diagnosed Date 1st degree AV block 05/05/2023 S/P TAVR (transcatheter aortic valve replacement ) 05/03/2023 BMI less than 19,adult 03/16/2023 Senile osteoporosis 09/28/2022 Protein-calorie malnutrition 07/07/2022 Neuromuscular disorder 07/07/2022 PHT (pulmonary hypertension) 06/02/2021 Hx of melanoma of skin 03/24/2021 Overview: Hx MM date 2013, Depth unknown, no SLN, Location R cheondoism PSVT (paroxysmal supraventricular tachycardia) 0 12/15/2019 Raynaud's disease without gangrene 06/02/2019 Esophageal dysmotility 05/20/2019 JULIUS (obstructive sleep apnea) 05/20/2019 ILD (interstitial lung disease) 05/20/2019 Coronary artery disease invo lving [place] coronary artery of [place] heart without angina pectoris 03/24/2019 Nonrheumatic mitral valve stenosis 03/24/2019 H/O Hodgkin's lymphoma 07/05/2018 Acquired hypothyroidism 07/05/2018 documented as of this encounter (statuses as of 07/23/2023) Resolved Problems Problem Noted Date Diagnosed Date Resolved Date Osteoporotic fracture of left hip 09/28/2022 03/14/2023 Aortic root enlargement 07/07/2022 11/2 08/2022 Sinus tachycardia 03/16/2022 03/14/2023 Hx of nonmelanoma skin cancer 03/24/2021 05/14/2023 Overview: Hx MM date 2013, Depth unknown, no SLN, Location R cheondoism (still no path in chart, pt confirmed that he had surgery for melanoma at that site and for BCC prior, see below) BCC R forehead 2008 ([facility]) Prediabetes 02/28/2021 02/01/2023 Overview: Per Prediabetes protocol Moderate protein malnutrition 12/15/2019 03/14/2023 Ankylosing spondylitis of cervical region 12/15/2019 07/07/2022 Moderate aortic stenosis 03/24/2019 H/O atrial fibrillation with out current medication 07/05/2018 03/14/2023 documented as of this encounter (statuses as of 07/23/2023) Immunizations Name Administration Dates Next Due COVID-19 mRNA, LNP-s, No Pre serve, 2-Dose Series (Moderna) 08/21/2020,07/17/2020 COVID-19, MRNA-LNP, 23-24, P F, 30 MCG/0.3 mL, 12 YRS AND ABOVE, IM ([employer]) 03/27/2023 COVID-19, mRNA, LNP-s, PF, B ooster, [...] Sign Reading Time Taken Comments Blood Pressure 124/74 07/23/2023 11:38 AM EST Pulse 100 07/23/2023 11:38 AM EST Temperature - - Respiratory Rate - - Oxygen Saturation - - Inhaled Oxygen Concentration - - Weight 63 kg (139 lb) 07/23/2023 11:38 AM EST Height - - Body Mass Index 18.34 07/09/2023 2:11 PM EST documented in this encounter Functional Status Functional Status Response Date of Assess ment Do you have serious difficul ty walking or climbing stairs? (5 years old or older) No 05/04/2023 documented as of this encounter Nursing Notes * Zoraida Del Rosario RN - 07/23/2023 11:39 AM EST Patient tolerated Cardiac Rehab exercise without difficulty. Patient had an episode of SVT for 1.5 min to 2 min , pt reporting feeling lightheaded but denies feeling a rapid heart rate. Took 20 seconds to recover. Patient educated about it. Will continue to monitor THR met and achieved. documented in this encounter Plan of Treatment Upcoming Encounters Date Type Department Care Team (Late st Contact Info) Description 07/25/2023 11:30 AM EST Nurse Only Cardiac Rehab, [facility] [address] [place] [address], [place] [address] G[facility], Nurse Cardiac Rehab [facility]0 [facility] [place] [address] 07/27/2023 11:30 AM EST Nurse Only Cardiac Rehab, [facility] [address] [place] [address], [place] [address] G[facility], Nurse Cardiac Rehab [address] [place] [address], [place] [address] 07/30/2023 11:30 AM EST Nurse Only Cardiac Rehab, [address] [place] [address] [facility], Nurse Cardiac Rehab [address] [place] [address], [place] [address] 08/01/2023 11:30 AM EST Nurse Only Cardiac Rehab, [place] [address] [facility] [place] [address] Gjsh, Nurse Cardiac Rehab [address] [place] [address], [place] [address] 08/03/2023 11:30 AM EST Nurse Only Cardiac Rehab, [address] [place] [address] [facility], Nurse Cardiac Rehab [address] [place] [address], [place] [address] 08/06/2023 11:30 AM EST Nurse Only Cardiac Rehab, [address] [place] [address] G[facility], Nurse Cardiac Rehab [address] [place] [address], [place] [address] 08/08/2023 11:30 AM EST Nurse Only Cardiac Rehab, [address] [place] [address] G[facility], Nurse Cardiac Rehab [address] [place] [address], [place] [address] 08/10/2023 11:30 AM EST Nurse Only Cardiac Rehab, [address] [place] [address] Gj[facility], Nurse Cardiac Rehab [address] [place] [address], [place] [address] 08/13/2023 11:30 AM EST Nurse Only Cardiac Rehab, [address] [place] [address] Gj[facility], Nurse Cardiac Rehab [address] [place] [address], [place] [address] 08/15/2023 11:30 AM EST Nurse Only Cardiac Rehab, [address] [place] [address] Gj[facility], Nurse Cardiac Rehab [address] [place] [address], [place] [address] 08/17/2023 11:30 AM EST Nurse Only Cardiac Rehab, [address] [place] [address] Gjsh, Nurse Cardiac Rehab [address] [place] [address], [place] [address] 08/20/2023 11:30 AM EST Nurse Only Cardiac Rehab, [address] [place] [address] G[facility], Nurse Cardiac Rehab [address] [place] [address], [place] [address] 08/21/2023 2:15 PM EST Office Visit Cardiology, [facility] 132 [facility] [place] [address] Izzy Patiño, [address] [place] [address] 08/22/2023 11:30 AM EST Nurse Only Cardiac Rehab, [address] [place] [address] Gjsh, Nurse Cardiac Rehab 1020 [facility] [place] [address] 08/24/2023 11:30 AM EST Nurse Only Cardiac Rehab, Fr[facility] 1020 [facility] [place] [address] Gjsh, Nurse Cardiac Rehab 1020 [facility] [place] [address] 08/27/2023 11:30 AM EDT Nurse Only Cardiac Rehab, [facility] [address] [place] [address], [place] [address] G[facility], Nurse Cardiac Rehab [facility]0 [facility] [place] [address] 08/29/2023 11:30 AM EDT Nurse Only Cardiac Rehab, david Justice [address] [place] [address], [place] [address] G[facility], Nurse Cardiac Rehab [address] [place] [address], [place] [address] 09/14/2023 1:20 PM EDT Office Visit Family Practice [facility] [address] [place] [address] Dewayne Pena MD 132 [place] [address] 10/02/2023 1:40 PM EDT Office Visit Rheumatology [place] [address]80 [facility] [address] Timo Guzman MD [facility] [place] [address] 04/15/2024 10:40 AM EDT Office Visit Dermatology [facility] [address] [place] [id number] Jonnathan House PA-C [address] [place] [address] Health Maintenance Due Date Last Done [...] D LEVEL ONCE IN A LIFETIME-USE SMARTSET# [id number] Completed 11/03/2022, 11/20/2018 Influenza Vaccine (FLU shot) [...] this encounter Medical Devices Implanted Type Area Customer Service Cashier Device Identifier Shelf Expiration Date Model / Serial / Lot Cath Thermodilution 6fr - [id number] Implanted:Qty: 1 on 03/07/2023 by Armando Beltran MD at [facility] [place] [employer] [id number] 10/10/2024 [id number] / / [id number] Valve Aortic Transcath Fx 34mm - [id number] Implanted:Qty: 1 on 05/03/2023 by Armando Beltran MD at [facility] [place] [employer] [id number] 08/10/2024 EVOLUTFX- 34 / [id number] / [id number] documented as of this encounter Visit Diagnoses Diagnosis S/P TAVR (transcatheter aortic valve replacement)- Primary Heart valve replaced by other means documented in this encounter Advance Directives Documents on File Type Date Recorded Patient Md Physician Dermatologist Expl anation POLST 03/06/2022 [place] OR [...] Direct lorenzo occurred with: Patient Care Teams Bar Hostess Relationship Specialty Start Date End Date Dewayne Pena MD 132 [facility] [place] [address] PCP - General Family Medicine 04/30/23 documented as of this encounter
--- OUTSIDE RECORDS SUMMARY | 2023-10-08 23:10 | External Medical Summary | Summary of Care ---
Author Name Unknown Organization [facility] [address] [address] Phone [phone] Care Team Providers Care Coppersmith Helper Name Role Phone Dewayne Pena MD Primary Care Provider [phone] Reason for Visit * Reason Comments NEW PATIENT Here new sleep. JULIUS. CPAP. Awaiting replacement for rebollar. Encounter Details Date Type Department Care Team (Late st Contact Info) Description 07/09/2023 2:20 PM EST Office Visit Sleep Disorders Ctr [facility] [address] [place] [phone] Cara Brantley DO [address] [place] [address] JULIUS (obstructive sleep apnea)* Allergies No known active allergiesdocumented as of this encounter (statuses as of 07/09/2023) Medications Medication Sig Dispensed Refills Start Date [...] as of this encounter (statuses as of 07/09/2023) Active Problems Problem Noted Date Diagnosed Date [...] disease) 05/20/2019 Coronary artery disease invo lving [place] coronary artery of [place] heart without angina pectoris 03/24/2019 Nonrheumatic mitral valve stenosis 03/24/2019 H/O Hodgkin's lymphoma 07/05/2018 Acquired hypothyroidism 07/05/2018 documented as of this encounter (statuses as of 07/09/2023) Resolved Problems Problem Noted Date Diagnosed Date [...] prior, see below) BCC R forehead 2008 ([facility]) Prediabetes 02/28/2021 02/01/2023 Overview: Per Prediabetes protocol Moderate protein malnutrition 12/15/2019 03/14/2023 Ankylosing spondylitis of cervical region 12/15/2019 07/07/2022 Moderate aortic stenosis 03/24/2019 H/O atrial fibrillation with out current medication 07/05/2018 03/14/2023 documented as of this encounter (statuses as of 07/09/2023) Immunizations Name Administration Dates Next Due COVID-19 mRNA, LNP-s, No Pre serve, 2-Dose Series (Moderna) 08/21/2020,07/17/2020 COVID-19, MRNA-LNP, 23-24, P F, 30 MCG/0.3 mL, 12 YRS AND ABOVE, IM ([employer]) 03/27/2023 COVID-19, mRNA, LNP-s, PF, B ooster, [...] Sign Reading Time Taken Comments Blood Pressure 110/78 07/09/2023 2:11 PM EST Pulse 100 07/09/2023 2:11 PM EST Temperature 36.2 C (97.2 F) 07/09/2023 2:11 PM ES T Respiratory Rate 16 07/09/2023 2:11 PM EST Oxygen Saturation 97% 07/09/2023 2:11 PM EST Inhaled Oxygen Concentration - - Weight 64 kg (141 lb 1.9 oz) 07/09/2023 2:11 PM EST Height 185.4 cm (6' 1") 07/09/2023 2:11 PM EST Body Mass Index 18.62 07/09/2023 2:11 PM EST documented in this encounter Functional Status Functional Status Response Date of Assess ment Do you have serious difficul ty walking or climbing stairs? (5 years old or older) No 05/04/2023 documented as of this encounter Progress Notes * Cara Brantley, DO - 07/09/2023 2:26 PM EST Sleep Medicine Follow-Up HISTORY: Guido Daley is a 72 year old male for follow up of mild JULIUS. Hx ILD, bronchiectasis, pulmonary hypertension, hypothyroidism, CAD, Raynaud's, esophageal dysmotility. Initially presented with snoring, observed apneas, long sleep times and fatigue. PSG 03/30/2019: AHI 7.8, REM AHI 43.2, SpO2 jose 84%, time <89% 2.4 min, PLMI 22.1. Nocturnal oximetry 12/08/22 (ordered by Pulmonary) on room air (no CPAP): SpO2 jose 74%, time <=88% 20 min. DAMARI 25. Using CPAP 5-10 cmH2O. The CPAP works "beautifully". He sleeps well with it. Nighttime awakenings: once to go to the bathroom. Subjective PAP adherence: excellent Sleep refreshing on PAP: yes Snoring on PAP: not that he is aware of Daytime napping: near-daily, restful Drowsy driving: none Mask leak: no Dry nose or dry mouth: some blood in the left nostril about once a week. Use humidifier? Yes; it sometimes runs out of water. Aerophagia: no Morning headaches: not usually Recent weight change: stable Norton Sleepiness Scale: 8 Mod F.O.S.Q.: 35 Norton Sleepiness Scale Question 07/05/2023 4:18 PM EST - Filed by Patient What is the chance you will doze off in the following situation? Sitting and reading Slight chance of dozing Watching TV Slight chance of dozing Sitting inactive in a public place, such as a theater or meeting Slight chance of dozing As a passenger in a car for an hour without a break Slight chance of dozing Lying down to rest in the afternoon when circumstances permit High chance of dozing When sitting and talking to someone No chance of dozing When sitting quietly after lunch without alcohol Slight chance of dozing In a car, while stopped for a few minutes in traffic No chance of dozing Score (range: 0 - 24) 8 Functional Outcomes Of Sleep Question 07/05/2023 4:19 PM EST - Filed by Patient Please complete the following questions. Do you have difficulty concentrating because you are sleepy or tired? Yes, a little Do you have difficulty remembering things because you are sleepy or tired? Yes, a little Do you have difficulty operating a motor vehicle for short distances (less than 100 miles) because you become sleepy? No Do you have difficulty operating a motor vehicle for long distances (more than 100 miles) because you become sleepy? No Do you have difficulty visiting family or friends in their home because you become sleepy or tired?No Has your relationship with family, friends, or work colleagues been affected because you are sleepyor tired? No Do you have difficulty watching a movie or video because you become sleepy or tired? Yes, a little Do you have difficulty being as active as you want to be in the evening because you are tired or sleepy? Yes, moderate Do you have difficulty being as active as you want to be in the morning because you are tired or sleepy? No Has your mood been affected because you are sleepy or tired? No Score (range: 10 - 40) 35 CPAP Compliance: Report date: 07/04/23 % total days used: 100% % days used > 4 hours: 100% Average hours per day used: 7h 39m Large leak: 10 min/day AHI: 5.1 /hr Mean pressure: 5.8 cmH2O 90%ile pressure: 7.9 cmH2O Pressure settin-10 cmH2O Equipment: DME Provider is [employer] Uses a [employer], not yet replaced through the recall. Additional changes in health in the interim of care: TAVR Patient Active Problem List Diagnosis Code H/O Hodgkin's lymphoma Z85.71 Acquired hypothyroidism E03.9 Coronary artery disease involving [place] coronary artery of [place] heart without angina pectoris I25.10 Nonrheumatic mitral valve stenosis I34.2 Esophageal dysmotility K22.4 JULIUS (obstructive sleep apnea) G47.33 ILD (interstitial lung disease) ([facility]) J84.9 Raynaud's disease without gangrene I73.00 PSVT (paroxysmal supraventricular tachycardia) I47.10 Hx of melanoma of skin Z85.820 PHT (pulmonary hypertension) ([facility]) I27.20 Protein-calorie malnutrition ([facility]) E46 Neuromuscular disorder ([facility]) G70.9 Senile osteoporosis M81.0 BMI less than 19,adult Z68.1 S/P TAVR (transcatheter aortic valve replacement) Z95.2 1st degree AV block I44.0 Outpatient Medications Marked as Taking for the 07/09/23 encounter (Office Visit) with Cara Brantley DO Medication Sig Nac 600 600 MG Oral Capsule (Acetylcysteine) Take 1 Capsule by mouth in the morning and 1 Capsule before bedtime. Amoxicillin 500 MG Oral Capsule (Amoxil) Take 4 capsules 1 hour prior to any dental work Ocuvite Adult Formula Oral Capsule Take by mouth. Levothyroxine Sodium 75 MCG Oral Tablet (Levoxyl) (at least 30 min prior to breakfast or other meds) Aspirin 81 MG Oral Tablet Chewable Take 1 Tablet by mouth in the morning. Turmeric Curcumin Oral Capsule Take by mouth 1 Capsule daily . CPAP every night at bedtime . Auto 5-20 cm Cholecalciferol 25 MCG (1000 UT) Oral Capsule Take 1 Capsule by mouth in the morning. PHYSICAL EXAM: Filed Vitals: 07/09/23 1411 BP: 110/78 Pulse: 100 Resp: 16 Temp: 36.2 C (97.2 F) TempSrc: Tympanic SpO2: 97% Weight: 64 kg (141 lb 1.9 oz) Height: 1.854 m (6' 1") Body mass index is 18.62 kg/m. General: alert, no acute distress Head: NC/AT Neck: kyphotic Neuro: speech clear and appropriate ASSESSMENT/PLAN: Obstructive sleep apnea - excellent adherence; encourage continued use of CPAP with all sleep - good efficacy of therapy; adjust PAP to 6-11 cmH2O due to very mildly elevated residual AHI (5.1). - DME: [employer] - Routine cleaning and change of supplies as needed. - Continue to avoid driving when feeling sleepy/drowsy. - Patient to check with with [employer] regarding recall replacement -- he has not yet received the replacement device, and has not had any recent communication from [employer] regarding this. Follow-up with Sleep Medicine in 1 year. Cara Brantley DO documented in this encounter Nursing Notes * Vicky Bird LPN - 07/09/2023 2:13 PM EST Chief Complaint Patient presents with NEW PATIENT Here new sleep. JULIUS. CPAP. Awaiting replacement for rebollar. DME: [employer]. Neck:12". Norton Sleepiness Scale Question 07/05/2023 4:18 PM EST - Filed by Patient What is the chance you will doze off in the following situation? Sitting and reading Slight chance of dozing Watching TV Slight chance of dozing Sitting inactive in a public place, such as a theater or meeting Slight chance of dozing As a passenger in a car for an hour without a break Slight chance of dozing Lying down to rest in the afternoon when circumstances permit High chance of dozing When sitting and talking to someone No chance of dozing When sitting quietly after lunch without alcohol Slight chance of dozing In a car, while stopped for a few minutes in traffic No chance of dozing Score (range: 0 - 24) 8 Functional Outcomes Of Sleep Question 07/05/2023 4:19 PM EST - Filed by Patient Please complete the following questions. Do you have difficulty concentrating because you are sleepy or tired? Yes, a little Do you have difficulty remembering things because you are sleepy or tired? Yes, a little Do you have difficulty operating a motor vehicle for short distances (less than 100 miles) because you become sleepy? No Do you have difficulty operating a motor vehicle for long distances (more than 100 miles) because you become sleepy? No Do you have difficulty visiting family or friends in their home because you become sleepy or tired?No Has your relationship with family, friends, or work colleagues been affected because you are sleepyor tired? No Do you have difficulty watching a movie or video because you become sleepy or tired? Yes, a little Do you have difficulty being as active as you want to be in the evening because you are tired or sleepy? Yes, moderate Do you have difficulty being as active as you want to be in the morning because you are tired or sleepy? No Has your mood been affected because you are sleepy or tired? No Score (range: 10 - 40) 35 documented in this encounter Plan of Treatment Upcoming Encounters Date Type Department Care Team (Late st Contact Info) Description 07/11/2023 11:30 AM EST Nurse Only Cardiac Rehab, [facility] [address] [place] [address] [facility], Nurse Cardiac Rehab [address] [place] [address] 07/13/2023 11:30 AM EST Nurse Only Cardiac Rehab, [facility] [address] [place] [address], [place] [address] [facility], Nurse Cardiac Rehab [address] [place] [address] 07/16/2023 11:30 AM EST Nurse Only Cardiac Rehab, [facility] [address] [place] [address], [place] [address] [facility], Nurse Cardiac Rehab [address] [place] [address] 07/18/2023 11:30 AM EST Nurse Only Cardiac Rehab, [address] [place] [address] [facility], Nurse Cardiac Rehab [address] [place] [address], [place] [address] 07/20/2023 11:30 AM EST Nurse Only Cardiac Rehab, [facility] [address] [place] [address] [facility], Nurse Cardiac Rehab [address] [place] [address], [place] [address] 07/23/2023 11:30 AM EST Nurse Only Cardiac Rehab, [address] [place] [address] [facility], Nurse Cardiac Rehab [address] [place] [address], [place] [address] 07/25/2023 11:30 AM EST Nurse Only Cardiac Rehab, [address] [place] [address] [facility], Nurse Cardiac Rehab [address] [place] [address], [place] [address] 07/27/2023 11:30 AM EST Nurse Only Cardiac Rehab, [address] [place] [address] [facility], Nurse Cardiac Rehab [address] [place] [address], [place] [address] 07/30/2023 11:30 AM EST Nurse Only Cardiac Rehab, [address] [place] [address] [facility], Nurse Cardiac Rehab [address] [place] [address], [place] [address] 08/01/2023 11:30 AM EST Nurse Only Cardiac Rehab, [address] [place] [address] [facility], Nurse Cardiac Rehab [address] [place] [address], [place] [address] 08/03/2023 11:30 AM EST Nurse Only Cardiac Rehab, [address] [place] [address] [facility], Nurse Cardiac Rehab [address] [place] [address], [place] [address] 08/06/2023 11:30 AM EST Nurse Only Cardiac Rehab, [address] [place] [address] [facility], Nurse Cardiac Rehab [address] [place] [address], [place] [address] 08/08/2023 11:30 AM EST Nurse Only Cardiac Rehab, [address] [place] [address] [facility], Nurse Cardiac Rehab [address] [place] [address], [place] [address] 08/10/2023 11:30 AM EST Nurse Only Cardiac Rehab, [address] [place] [address] [facility], Nurse Cardiac Rehab [address] [place] [address], [place] [address] 08/13/2023 11:30 AM EST Nurse Only Cardiac Rehab, [address] [place] [address] [facility], Nurse Cardiac Rehab [address] [place] [address], [place] [address] 08/15/2023 11:30 AM EST Nurse Only Cardiac Rehab, [facility] [address] [place] [address], [place] [address] [facility], Nurse Cardiac Rehab [address] [place] [address], [place] [address] 08/17/2023 11:30 AM EST Nurse Only Cardiac Rehab, [address] [place] [address] [facility], Nurse Cardiac Rehab [address] [place] [address], [place] [address] 08/20/2023 11:30 AM EST Nurse Only Cardiac Rehab, [address] [place] [address] [facility], Nurse Cardiac Rehab [address] [place] [address], [place] [address] 08/21/2023 2:15 PM EST Office Visit Cardiology, [facility] [address] [facility] [place] [address] Izzy Patiño, [address] [place] [id number] 08/22/2023 11:30 AM EST Nurse Only Cardiac Rehab, [address] [place] [address] [facility], Nurse Cardiac Rehab [address] [place] [address], [place] [address] 08/24/2023 11:30 AM EST Nurse Only Cardiac Rehab, [address] [place] [address] [facility], Nurse Cardiac Rehab [address] [place] [address], [place] [address] 08/27/2023 11:30 AM EDT Nurse Only Cardiac Rehab, [facility] [address] [place] [address] [facility], Nurse Cardiac Rehab [address] [place] [address] 08/29/2023 11:30 AM EDT Nurse Only Cardiac Rehab, [facility] [address] [place] [address] [facility], Nurse Cardiac Rehab [address] [place] [address] 09/14/2023 1:20 PM EDT Office Visit Family Practice [facility] [address] [place] [address] Dewayne Pena MD [address] [facility] [place] [address] 10/02/2023 1:40 PM EDT Office Visit Rheumatology [address] [address] Timo Guzman MD [address] [place] [address] 04/15/2024 10:40 AM EDT Office Visit Dermatology [facility] [address] [place] [address] Jonnathan House PA-C [address] [place] [address] Health Maintenance Due Date Last Done Comments [...] D LEVEL ONCE IN A LIFETIME-USE SMARTSET# [id number] Completed 11/03/2022, 11/20/2018 Influenza Vaccine (FLU shot) [...] this encounter Medical Devices Implanted Type Area Continuity Writer Device Identifier Shelf Expiration Date Model / Serial / Lot Cath Thermodilution 6fr - [id number] Implanted:Qty: 1 on 03/07/2023 by Armando Beltran MD at [facility] [place] [employer] [id number] 10/10/2024 [id number] / / [id number] Valve Aortic Transcath Fx 34mm - [id number] Implanted:Qty: 1 on 05/03/2023 by Armando Beltran MD at [facility] [place] [employer] [id number] 08/10/2024 [id number] / [id number] / [id number] documented as of this encounter Visit Diagnoses Diagnosis JULIUS (obstructive sleep apnea)- Primary Obstructive sleep apnea (adult) (pediatric) documented in this encounter Advance Directives Documents on File Type Date Recorded 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
--- OUTSIDE RECORDS SUMMARY | 2023-10-08 23:10 | External Medical Summary | Summary of Care ---
Author Name Unknown Organization [facility] Address [address] [place] [address] Phone [phone] Care Team Providers Care Aviation Program Manager Name Role Phone Dewayne Pena MD Primary Care Provider [phone] Reason for Visit * Reason Comments Cardiac Rehab Encounter Details Date Type Department Care Team (Late st Contact Info) Description 07/02/2023 11:30 AM EST Nurse Only Cardiac Rehab, [facility] [address] [place] [address] [facility], Nurse Cardiac Rehab [address] [place] [address] Cardiac Rehab Allergies No known active allergiesdocumented as of this encounter (statuses as of 07/02/2023) Medications Medication Sig Dispensed Refills Start Date [...] as of this encounter (statuses as of 07/02/2023) Active Problems Problem Noted Date Diagnosed Date [...] disease) 05/20/2019 Coronary artery disease invo lving flandreau coronary artery of flandreau heart without angina pectoris 03/24/2019 Nonrheumatic mitral valve stenosis 03/24/2019 H/O Hodgkin's lymphoma 07/05/2018 Acquired hypothyroidism 07/05/2018 documented as of this encounter (statuses as of 07/02/2023) Resolved Problems Problem Noted Date Diagnosed Date [...] prior, see below) BCC R forehead 2008 ([facility]) Prediabetes 02/28/2021 02/01/2023 Overview: Per Prediabetes protocol Moderate protein malnutrition 12/15/2019 03/14/2023 Ankylosing spondylitis of cervical region 12/15/2019 07/07/2022 Moderate aortic stenosis 03/24/2019 H/O atrial fibrillation with out current medication 07/05/2018 03/14/2023 documented as of this encounter (statuses as of 07/02/2023) Immunizations Name Administration Dates Next Due COVID-19 mRNA, LNP-s, No Pre serve, 2-Dose Series (Moderna) 08/21/2020,07/17/2020 COVID-19, MRNA-LNP, 23-24, P F, 30 MCG/0.3 mL, 12 YRS AND ABOVE, IM ([employer] [facility] 03/27/2023 COVID-19, mRNA, LNP-s, PF, B ooster, [...] Sign Reading Time Taken Comments Blood Pressure 130/74 07/02/2023 11:34 AM EST Pulse 94 07/02/2023 11:34 AM EST Temperature - - Respiratory Rate - - Oxygen Saturation - - Inhaled Oxygen Concentration - - Weight 64.3 kg (141 lb 11.2 oz) 024 11:34 AM EST Height - - Body Mass Index 18.7 06/25/2023 10:12 AM EST documented in this encounter Functional Status Functional Status Response Date of Assess ment Do you have serious difficul ty walking or climbing stairs? (5 years old or older) No 05/04/2023 documented as of this encounter Plan of Treatment Upcoming Encounters Date Type Department Care Team (Late st Contact Info) Description 07/04/2023 11:30 AM EST Nurse Only Cardiac Rehab, [address] [place] [address] [facility], Nurse Cardiac Rehab [address] [place] [address] [place] [address] 07/06/2023 11:30 AM EST Nurse Only Cardiac Rehab, [address] [place] [address] [facility], Nurse Cardiac Rehab [address] [place] [address], [place] [address] 07/09/2023 11:30 AM EST Nurse Only Cardiac Rehab, [address] [place] [address] [facility], Nurse Cardiac Rehab [address] [place] [address], [place] [address] 07/09/2023 2:20 PM EST Office Visit Sleep Disorders Ctr [facility] [address] [place] [id number] Cara Brantley, [address] [place] [address] 07/11/2023 11:30 AM EST Nurse Only Cardiac Rehab, [address] [place] [address] [facility], Nurse Cardiac Rehab [address] [place] [address], [place] [address] 07/13/2023 11:30 AM EST Nurse Only Cardiac Rehab, [address] [place] [address] [facility], Nurse Cardiac Rehab [address] [place] [address], [place] [address] 07/16/2023 11:30 AM EST Nurse Only Cardiac Rehab, [address] [place] [address] [facility], Nurse Cardiac Rehab [address] [place] [address], [place] [address] 07/18/2023 11:30 AM EST Nurse Only Cardiac Rehab, [address] [place] [address] [facility], Nurse Cardiac Rehab [address] [place] [address], [place] [address] 07/20/2023 11:30 AM EST Nurse Only Cardiac Rehab, [facility] [address] [place] [address], [place] [address] [facility], Nurse Cardiac Rehab [facility] [place] [address] 07/23/2023 11:30 AM EST Nurse Only Cardiac Rehab, [facility] [address] [place] [address], [place] [address] [facility], Nurse Cardiac Rehab [facility] [place] [address] 07/25/2023 11:30 AM EST Nurse Only Cardiac Rehab, [address] [place] [address] [facility], Nurse Cardiac Rehab [address] [place] [address], [place] [address] 07/27/2023 11:30 AM EST Nurse Only Cardiac Rehab, [address] [place] [address] [facility], Nurse Cardiac Rehab [address] [place] [address], [place] [address] 07/30/2023 11:30 AM EST Nurse Only Cardiac Rehab, [address] [place] [address] [facility], Nurse Cardiac Rehab [address] [place] [address], [place] [address] 08/01/2023 11:30 AM EST Nurse Only Cardiac Rehab, [address] [place] [address] [facility], Nurse Cardiac Rehab [address] [place] [address], [place] [address] 08/03/2023 11:30 AM EST Nurse Only Cardiac Rehab, [address] [place] [address] [facility], Nurse Cardiac Rehab [address] [place] [address], [place] [address] 08/06/2023 11:30 AM EST Nurse Only Cardiac Rehab, [facility] [address] [place] [address], [place] [address] [facility], Nurse Cardiac Rehab [address] [place] [address] 08/08/2023 11:30 AM EST Nurse Only Cardiac Rehab, [facility] [address] [place] [address], [place] [address] [facility], Nurse Cardiac Rehab [address] [place] [address] 08/10/2023 11:30 AM EST Nurse Only Cardiac Rehab, [address] [place] [address] [facility], Nurse Cardiac Rehab [address] [place] [address], [place] [address] 08/13/2023 11:30 AM EST Nurse Only Cardiac Rehab, [place] [address] [place] [address] [facility], Nurse Cardiac Rehab [address] [place] [address], [place] [address] 08/15/2023 11:30 AM EST Nurse Only Cardiac Rehab, [facility] [address] [place] [address] Gjsh, Nurse Cardiac Rehab [facility] [place] [address] 08/17/2023 11:30 AM EST Nurse Only Cardiac Rehab, [address] [place] [address] [facility], Nurse Cardiac Rehab [address] [place] [address], [place] [address] 08/20/2023 11:30 AM EST Nurse Only Cardiac Rehab, [address] [place] [address] [facility], Nurse Cardiac Rehab [address] [place] [address], [place] [address] 08/21/2023 2:15 PM EST Office Visit Cardiology, [facility] [address] [place] [address] Izzy Patiño, [address] [place] [address] 08/22/2023 11:30 AM EST Nurse Only Cardiac Rehab, [address] [place] [address] [facility], Nurse Cardiac Rehab [address] [place] [address], [place] [address] 08/24/2023 11:30 AM EST Nurse Only Cardiac Rehab, [address] [place] [address] [facility], Nurse Cardiac Rehab [address] [place] [address], [place] [address] 08/27/2023 11:30 AM EDT Nurse Only Cardiac Rehab, [address] [place] [address] [facility], Nurse Cardiac Rehab [address] [place] [address], [place] [address] 08/29/2023 11:30 AM EDT Nurse Only Cardiac Rehab, [address] [place] [address] [facility], Nurse Cardiac Rehab [address] [place] [address], [place] [address] 09/14/2023 1:20 PM EDT Office Visit Family Practice [facility] [address] [place] [address] Dewayne Pena MD [address] [place] [address] 10/02/2023 1:40 PM EDT Office Visit Rheumatology [place] [address] [facility] [place], [place] [address] Timo Guzman MD [facility] [employer] [place] [address] 04/15/2024 10:40 AM EDT Office Visit Dermatology [facility] [address] [place] [phone] Jonnathan House PA-C [address] [place] [address] Health Maintenance Due Date Last Done Comments [...] D LEVEL ONCE IN A LIFETIME-USE SMARTSET# [id number] Completed 11/03/2022, 11/20/2018 Influenza Vaccine (FLU shot) [...] this encounter Medical Devices Implanted Type Area Learning Solutions Specialist Device Identifier Shelf Expiration Date Model / Serial / Lot Cath Thermodilution 6fr - [id number] Implanted:Qty: 1 on 03/07/2023 by Armando Beltran MD at [facility] [employer] K[place]STYN [id number] 10/10/2024 [id number] / / [id number] Valve Aortic Transcath Fx 34mm - [id number] Implanted:Qty: 1 on 05/03/2023 by Armando Beltran MD at 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
--- OUTSIDE RECORDS SUMMARY | 2023-10-08 23:10 | External Medical Summary | Summary of Care ---
Author Name Unknown Organization [facility] Address [address] [place] [address] Phone [phone] Care Team Providers Care Sailing Master Name Role Phone Dewayne Pena MD Primary Care Provider [phone] Reason for Visit * Reason Comments Cardiac Rehab Encounter Details Date Type Department Care Team (Late st Contact Info) Description 07/09/2023 11:30 AM EST Nurse Only Cardiac Rehab, [facility] [address] [place] [address] [facility], Nurse Cardiac Rehab [address] [place] [address] Cardiac Rehab Allergies No known active allergiesdocumented [...] 2013, Depth unknown, no SLN, Location R sikhism PSVT (paroxysmal supraventricular tachycardia) 0 12/15/2019 Raynaud's disease without gangrene 06/02/2019 Esophageal dysmotility 05/20/2019 JULIUS (obstructive sleep apnea) 05/20/2019 ILD (interstitial lung disease) 05/20/2019 Coronary artery disease invo lving three affiliated coronary artery of three affiliated heart without angina pectoris 03/24/2019 Nonrheumatic mitral [...] 2013, Depth unknown, no SLN, Location R sikhism (still no path in chart, pt confirmed that he had surgery for melanoma at that site and for BCC prior, see below) BCC R forehead 2008 ([facility]) Prediabetes 02/28/2021 02/01/2023 Overview: Per Prediabetes protocol [...] MCG/0.3 mL, 12 YRS AND ABOVE, IM ([employer] 03/27/2023 COVID-19, mRNA, LNP-s, PF, B ooster, [...] Sign Reading Time Taken Comments Blood Pressure 130/78 07/09/2023 11:37 AM EST Pulse 98 07/09/2023 11:37 AM EST Temperature - - Respiratory Rate - - Oxygen Saturation - - Inhaled Oxygen Concentration - - Weight 64.7 kg (142 lb 11.2 oz) 024 11:37 AM EST Height - - Body Mass Index 18.83 06/25/2023 10:12 AM EST documented in this encounter Functional Status Functional Status Response Date of Assess ment Do you have serious difficul ty walking or climbing stairs? (5 years old or older) No 05/04/2023 documented as of this encounter Nursing Notes * Zoraida Del Rosario RN - 07/09/2023 11:41 AM EST Patient tolerated Cardiac Rehab exercise without difficulty. documented in this encounter Plan of Treatment Upcoming Encounters Date Type Department Care Team (Late st Contact Info) Description 07/09/2023 2:20 PM EST Office Visit Sleep Disorders Ctr [address] [place] [phone] Cara Brantley, DO [address] [place] [address] 07/11/2023 11:30 AM EST Nurse Only Cardiac Rehab, [address] [place] [address] [facility], Nurse Cardiac Rehab [address] [place] [address], [place] [address] 07/13/2023 11:30 AM EST Nurse Only Cardiac Rehab, [address] [place] [address] [facility], Nurse Cardiac Rehab [address] [place] [address], [place] [address] 07/16/2023 11:30 AM EST Nurse Only Cardiac Rehab, [address] [place] [address] [facility], Nurse Cardiac Rehab [address] [place] [address], [place] [address] 07/18/2023 11:30 AM EST Nurse Only Cardiac Rehab, [address] [place] [address] [facility], Nurse Cardiac Rehab [address] [place] [address], [place] [address] 07/20/2023 11:30 AM EST Nurse Only Cardiac Rehab, [address] [place] [address] [facility], Nurse Cardiac Rehab [address] [place] [address], [place] [address] 07/23/2023 11:30 AM EST Nurse Only Cardiac Rehab, [address] [place] [address] [facility], Nurse Cardiac Rehab [address] [place] [address], [place] [address] 07/25/2023 11:30 AM EST Nurse Only Cardiac Rehab, [address] [place] [address] [facility], Nurse Cardiac Rehab [address] [facility] [address] 07/27/2023 11:30 AM EST Nurse Only Cardiac Rehab, [address] [place] [address] G[facility], Nurse Cardiac Rehab [facility] [address] 07/30/2023 11:30 AM EST Nurse Only Cardiac Rehab, [address] [place] [address] [facility], Nurse Cardiac Rehab [address] [place] [address], [place] [address] 08/01/2023 11:30 AM EST Nurse Only Cardiac Rehab, [address] [place] [address] G[facility], Nurse Cardiac Rehab [address] [place] [address], [place] [address] 08/03/2023 11:30 AM EST Nurse Only Cardiac Rehab, [address] [place] [address] G[facility], Nurse Cardiac Rehab [address] [place] [address], [place] [address] 08/06/2023 11:30 AM EST Nurse Only Cardiac Rehab, [address] [place] [address] Gjsh, Nurse Cardiac Rehab [address] [place] [address], [place] [address] 08/08/2023 11:30 AM EST Nurse Only Cardiac Rehab, [address] [place] [address] G[facility], Nurse Cardiac Rehab [address] [place] [address], [place] [address] 08/10/2023 11:30 AM EST Nurse Only Cardiac Rehab, [address] [place] [address] G[facility], Nurse Cardiac Rehab [address] [place] [address], [place] [address] 08/13/2023 11:30 AM EST Nurse Only Cardiac Rehab, [address] [place] [address] G[facility], Nurse Cardiac Rehab [address] [place] [address], [place] [address] 08/15/2023 11:30 AM EST Nurse Only Cardiac Rehab, [address] [place] [address] G[facility], Nurse Cardiac Rehab [address] [place] [address], [place] [address] 08/17/2023 11:30 AM EST Nurse Only Cardiac Rehab, [address] [place] [address] G[facility], Nurse Cardiac Rehab [address] [place] [address], [place] [address] 08/20/2023 11:30 AM EST Nurse Only Cardiac Rehab, [address] [place] [address] [facility], Nurse Cardiac Rehab [address] [place] [address], [place] [address] 08/21/2023 2:15 PM EST Office Visit Cardiology, [facility] 132 [facility] [place] [address] Izzy Patiño, [address] [place] [address] 08/22/2023 11:30 AM EST Nurse Only Cardiac Rehab, [address] [place] [address] [facility], Nurse Cardiac Rehab [address] [facility] [address] 08/24/2023 11:30 AM EST Nurse Only Cardiac Rehab, [facility] [address] [place] [address] [facility], Nurse Cardiac Rehab [address] [facility] [address] 08/27/2023 11:30 AM EDT Nurse Only Cardiac Rehab, [facility] [address] [place] [address], [place] [address] [facility], Nurse Cardiac Rehab [address] [facility] [address] 08/29/2023 11:30 AM EDT Nurse Only Cardiac Rehab, [facility] [address] [facility] [address] G[facility], Nurse Cardiac Rehab [facility] [address] 09/14/2023 1:20 PM EDT Office Visit Family Practice [facility] 132 [facility] [place] [address] Dewayne Pena MD 132 [facility] [place] [address] 10/02/2023 1:40 PM EDT Office Visit Rheumatology [address], [place] [address] Timo Guzman MD [address] [place] [address], [place] [address] 04/15/2024 10:40 AM EDT Office Visit Dermatology [facility] [address] [place] [address] Jonnathan House PA-C [address] [place] [address] Health Maintenance Due Date Last Done [...] D LEVEL ONCE IN A LIFETIME-USE SMARTSET# [id number] Completed 11/03/2022, 11/20/2018 Influenza Vaccine (FLU shot) [...] this encounter Medical Devices Implanted Type Area Computer Recycling Worker Device Identifier Shelf Expiration Date Model / Serial / Lot Cath Thermodilution 6fr - [id number] Implanted:Qty: 1 on 03/07/2023 by Armando Beltran MD at [facility] [email or web address] [place] [id number] 10/10/2024 [id number] / / [id number] Valve Aortic Transcath Fx 34mm - [id number] Implanted:Qty: 1 on 05/03/2023 by Armando Beltran MD at [facility] [employer] [id number] 08/10/2024 EVOLUTFX- 34 / [id number] / [id number] documented as of this encounter Visit Diagnoses Diagnosis S/P TAVR (transcatheter aortic valve replacement)- Primary Heart valve replaced by other means documented in this encounter Advance Directives Documents on File Type Date Recorded 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
--- OUTSIDE RECORDS SUMMARY | 2023-10-08 23:10 | External Medical Summary | Summary of Care ---
Author Name Unknown Organization [facility] Address [address] [place] [address] Phone [phone] Care Team Providers Care Oil Field Equipment Mechanic Name Role Phone Dewayne Pena MD Primary Care Provider [phone] [phone] Reason for Visit * Reason Comments Cardiac Rehab Encounter Details Date Type Department Care Team (Late st Contact Info) Description 06/29/2023 11:30 AM EST Nurse Only Cardiac Rehab, [facility] [address] [place] [address] [facility], Nurse Cardiac Rehab [address] [place] [address] Cardiac Rehab Allergies No known active allergiesdocumented as of this encounter (statuses as of 06/29/2023) Medications Medication Sig Dispensed Refills Start Date [...] as of this encounter (statuses as of 06/29/2023) Active Problems Problem Noted Date Diagnosed Date 1st degree AV block 05/05/2023 S/P TAVR (transcatheter aortic valve replacement ) 05/03/2023 BMI less than 19,adult 03/16/2023 Senile osteoporosis 09/28/2022 Protein-calorie malnutrition 07/07/2022 Neuromuscular disorder 07/07/2022 PHT (pulmonary hypertension) 06/02/2021 Hx of melanoma of skin 03/24/2021 Overview: Hx MM date 2013, Depth unknown, no SLN, Location R catholic PSVT (paroxysmal supraventricular tachycardia) 0 12/15/2019 Raynaud's disease without gangrene 06/02/2019 Esophageal dysmotility 05/20/2019 JULIUS (obstructive sleep apnea) 05/20/2019 ILD (interstitial lung disease) 05/20/2019 Coronary artery disease invo lving [place] coronary artery of [place] heart without angina pectoris 03/24/2019 Nonrheumatic mitral valve stenosis 03/24/2019 H/O Hodgkin's lymphoma 07/05/2018 Acquired hypothyroidism 07/05/2018 documented as of this encounter (statuses as of 06/29/2023) Resolved Problems Problem Noted Date Diagnosed Date Resolved Date Osteoporotic fracture of left hip 09/28/2022 03/14/2023 Aortic root enlargement 07/07/2022 11/2 08/2022 Sinus tachycardia 03/16/2022 03/14/2023 Hx of nonmelanoma skin cancer 03/24/2021 05/14/2023 Overview: Hx MM date 2013, Depth unknown, no SLN, Location R catholic (still no path in chart, pt confirmed that he had surgery for melanoma at that site and for BCC prior, see below) BCC R forehead 2008 (NDU) Prediabetes 02/28/2021 02/01/2023 Overview: Per Prediabetes protocol Moderate protein malnutrition 12/15/2019 03/14/2023 Ankylosing spondylitis of cervical region 12/15/2019 07/07/2022 Moderate aortic stenosis 03/24/2019 H/O atrial fibrillation with out current medication 07/05/2018 03/14/2023 documented as of this encounter (statuses as of 06/29/2023) Immunizations Name Administration Dates Next Due COVID-19 mRNA, LNP-s, No Pre serve, 2-Dose Series (Moderna) 08/21/2020,07/17/2020 COVID-19, MRNA-LNP, 23-24, P F, 30 MCG/0.3 mL, 12 YRS AND ABOVE, IM ([facility]) 03/27/2023 COVID-19, mRNA, LNP-s, PF, B [...] Sign Reading Time Taken Comments Blood Pressure 132/66 06/29/2023 11:50 AM EST Pulse 100 06/29/2023 11:50 AM EST Temperature - - Respiratory Rate - - Oxygen Saturation - - Inhaled Oxygen Concentration - - Weight 64.4 kg (141 lb 14.4 oz) 024 11:50 AM EST Height - - Body Mass Index 18.72 06/25/2023 10:12 AM EST documented in this encounter Functional Status Functional Status Response Date of Assess ment Do you have serious difficul ty walking or climbing stairs? (5 years old or older) No 05/04/2023 documented as of this encounter Nursing Notes * Paz Johns RN - 06/29/2023 11:50 AM EST Pt participated in Cardiac Rehab today with no complications. Exercise regimen per protocol. documented in this encounter Plan of Treatment Upcoming Encounters Date Type Department Care Team (Late st Contact Info) Description 07/02/2023 7:15 AM EST Cardiac Studies Cardiac Studies, [address] [place] [address] 07/02/2023 11:30 AM EST Nurse Only Cardiac Rehab, [address] [place] [address] Gjsh, Nurse Cardiac Rehab [address] [place] [address], [place] [address] 07/04/2023 11:30 AM EST Nurse Only Cardiac Rehab, [address] [place] [address] Gj[place], Nurse Cardiac Rehab [address] [place] [address], [place] [address] 07/06/2023 11:30 AM EST Nurse Only Cardiac Rehab, [address] [place] [address] G[place], Nurse Cardiac Rehab [address] [place] [address], [place] [address] 07/09/2023 11:30 AM EST Nurse Only Cardiac Rehab, [address] [place] [address] [place], Nurse Cardiac Rehab [address] [place] [address], [place] [address] 07/09/2023 2:20 PM EST Office Visit [facility] [place] [id number] Cara Brantley, [address] [place] [address] 07/11/2023 11:30 AM EST Nurse Only Cardiac Rehab, [address], [place] [address] [place], Nurse Cardiac Rehab [address] [place] [address], [place] [address] 07/13/2023 11:30 AM EST Nurse Only Cardiac Rehab, [address] [place] [address] [place], Nurse Cardiac Rehab [address] [facility] [place] [address] 07/16/2023 11:30 AM EST Nurse Only Cardiac Rehab, [facility] [address] [place] [address], [place] [address] G[place], Nurse Cardiac Rehab [facility] [place] [address] 07/18/2023 11:30 AM EST Nurse Only Cardiac Rehab, [facility] [address] [place] [address], [place] [address] Gj[place], Nurse Cardiac Rehab [address] [place] [address], [place] [address] 07/20/2023 11:30 AM EST Nurse Only Cardiac Rehab, [address] [place] [address] Gjsh, Nurse Cardiac Rehab [address] [place] [address], [place] [address] 07/23/2023 11:30 AM EST Nurse Only Cardiac Rehab, [address] [place] [address] Gjsh, Nurse Cardiac Rehab [address] [place] [address], [place] [address] 07/25/2023 11:30 AM EST Nurse Only Cardiac Rehab, [address] [place] [address] Gjsh, Nurse Cardiac Rehab [address] [place] [address], [place] [address] 07/27/2023 11:30 AM EST Nurse Only Cardiac Rehab, [address] [place] [address] Gjsh, Nurse Cardiac Rehab [address] [place] [address], [place] [address] 07/30/2023 11:30 AM EST Nurse Only Cardiac Rehab, [facility] [address] [facility] [place] [address] Gjsh, Nurse Cardiac Rehab [facility] [place] [address] 08/01/2023 11:30 AM EST Nurse Only Cardiac Rehab, [facility] [address] [place] [address], [place] [address] Gjsh, Nurse Cardiac Rehab [facility] [place] [address] 08/03/2023 11:30 AM EST Nurse Only Cardiac Rehab, [address] [place] [address] Gjsh, Nurse Cardiac Rehab [address] [place] [address], [place] [address] 08/06/2023 11:30 AM EST Nurse Only Cardiac Rehab, [address] [place] [address] Gjsh, Nurse Cardiac Rehab [address] [place] [address], [place] [address] 08/08/2023 11:30 AM EST Nurse Only Cardiac Rehab, [address] [place] [address] Gjsh, Nurse Cardiac Rehab [address] [place] [address], [place] [address] 08/10/2023 11:30 AM EST Nurse Only Cardiac Rehab, [address] [place] [address] Gjsh, Nurse Cardiac Rehab [address] [place] [address], [place] [address] 08/13/2023 11:30 AM EST Nurse Only Cardiac Rehab, [address] [place] [address] Gjsh, Nurse Cardiac Rehab [address] [place] [address], [place] [address] 08/15/2023 11:30 AM EST Nurse Only Cardiac Rehab, [address] [place] [address] Gjsh, Nurse Cardiac Rehab [address] [place] [address], [place] [address] 08/17/2023 11:30 AM EST Nurse Only Cardiac Rehab, [address] [place] [address] Gjsh, Nurse Cardiac Rehab [address] [place] [address], [place] [address] 08/20/2023 11:30 AM EST Nurse Only Cardiac Rehab, [address] [place] [address] Gjsh, Nurse Cardiac Rehab [address] [place] [address], [place] [address] 08/21/2023 2:15 PM EST Office Visit Cardiology, [address] [place] [address] Izzy Patiño, [address] [place] [address] 08/22/2023 11:30 AM EST Nurse Only Cardiac Rehab, [address], [place] [address] Gjsh, Nurse Cardiac Rehab [address] [place] [address], [place] [address] 08/24/2023 11:30 AM EST Nurse Only Cardiac Rehab, [address], [place] [address] Gjsh, Nurse Cardiac Rehab [address] [place] [address], [place] [address] 08/27/2023 11:30 AM EDT Nurse Only Cardiac Rehab, [address], [place] [address] G[place]sh, Nurse Cardiac Rehab [facility] [place] [address] 08/29/2023 11:30 AM EDT Nurse Only Cardiac Rehab, [facility] [place] [address] [place] [address] [facility], Nurse Cardiac Rehab [address] [place] [address] 09/14/2023 1:20 PM EDT Office Visit Family Practice [facility] [address] [place] [address] Dewayne Pena MD [address] [place] [address] 10/02/2023 1:40 PM EDT Office Visit Rheumatology [address] [place] [address] Timo Guzman MD [address] [place] [address] 04/15/2024 10:40 AM EDT Office Visit Dermatology [facility] [address] [place] [address] Jonnathan House PA-C [address] [place] [address] Health Maintenance Due Date Last Done [...] D LEVEL ONCE IN A LIFETIME-USE SMARTSET# [id number] Completed 11/03/2022, 11/20/2018 Influenza Vaccine (FLU shot) [...] this encounter Medical Devices Implanted Type Area Automatic Toe Laster Device Identifier Shelf Expiration Date Model / Serial / Lot Cath Thermodilution 6fr - [id number] Implanted:Qty: 1 on 03/07/2023 by Armando Beltran MD at [facility] [employer] KRISTYN [id number] 10/10/2024 [id number] / / [id number] Valve Aortic Transcath Fx 34mm - [id number] Implanted:Qty: 1 on 05/03/2023 by Armando Beltran MD at [facility] [employer] [id number] 08/10/2024 EVOLUTFX- 34 / [id number] / [id number] documented as of this encounter Visit Diagnoses Diagnosis S/P TAVR (transcatheter aortic valve replacement)- Primary Heart valve replaced by other means documented in this encounter Advance Directives Documents on File Type Date Recorded 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
--- OUTSIDE RECORDS SUMMARY | 2023-10-08 23:10 | External Medical Summary | Summary of Care ---
Author Name Unknown Organization [facility] Address [address] [place] [address] Phone [phone] Care Team Providers Care Measurer Machine Name Role Phone Dewayne Pena MD Primary Care Provider +1 [phone] Reason for Visit * Reason Comments Cardiac Rehab Encounter Details Date Type Department Care Team (Late st Contact Info) Description 07/11/2023 11:30 AM EST Nurse Only Cardiac Rehab, [facility] [address] [place] [address] [facility], Nurse Cardiac Rehab [address] [place] [address] Cardiac Rehab Allergies No known active allergiesdocumented as of this encounter (statuses as of 07/11/2023) Medications Medication Sig Dispensed Refills Start Date [...] as of this encounter (statuses as of 07/11/2023) Active Problems Problem Noted Date Diagnosed Date [...] disease) 05/20/2019 Coronary artery disease invo lving [place] coronary artery of [place] heart without angina pectoris 03/24/2019 Nonrheumatic mitral valve stenosis 03/24/2019 H/O Hodgkin's lymphoma 07/05/2018 Acquired hypothyroidism 07/05/2018 documented as of this encounter (statuses as of 07/11/2023) Resolved Problems Problem Noted Date Diagnosed Date [...] prior, see below) BCC R forehead 2008 (RIU) Prediabetes 02/28/2021 02/01/2023 Overview: Per Prediabetes protocol Moderate protein malnutrition 12/15/2019 03/14/2023 Ankylosing spondylitis of cervical region 12/15/2019 07/07/2022 Moderate aortic stenosis 03/24/2019 H/O atrial fibrillation with out current medication 07/05/2018 03/14/2023 documented as of this encounter (statuses as of 07/11/2023) Immunizations Name Administration Dates Next Due COVID-19 mRNA, LNP-s, No Pre serve, 2-Dose Series (Moderna) 08/21/2020,07/17/2020 COVID-19, MRNA-LNP, 23-24, P F, 30 MCG/0.3 mL, 12 YRS AND ABOVE, IM ([facility]) 03/27/2023 COVID-19, mRNA, LNP-s, PF, B ooster, [...] Sign Reading Time Taken Comments Blood Pressure 128/78 07/11/2023 11:42 AM EST Pulse 91 07/11/2023 11:42 AM EST Temperature - - Respiratory Rate - - Oxygen Saturation - - Inhaled Oxygen Concentration - - Weight 64.6 kg (142 lb 6.4 oz) 07/11/2023 11:42 AM EST Height - - Body Mass Index 18.79 07/09/2023 2:11 PM EST documented in this encounter Functional Status Functional Status Response Date of Assess ment Do you have serious difficul ty walking or climbing stairs? (5 years old or older) No 05/04/2023 documented as of this encounter Nursing Notes * Verona Rodriguez, RN - 07/11/2023 11:43 AM EST Pt participated in Cardiac Rehab today with no complications. Exercise regimen per protocol. documented in this encounter Plan of Treatment Upcoming Encounters Date Type Department Care Team (Late st Contact Info) Description 07/13/2023 11:30 AM EST Nurse Only Cardiac Rehab, [place] [address] Gjsh, Nurse Cardiac Rehab [address] [place] [address] 07/16/2023 11:30 AM EST Nurse Only Cardiac Rehab, [facility] [address] [place] [address], [place] [address] G[place], Nurse Cardiac Rehab [facility] [place] [address] 07/18/2023 11:30 AM EST Nurse Only Cardiac Rehab, [facility] [address] [place] [address], [place] [address] Gjsh, Nurse Cardiac Rehab [address] [place] [address], [place] [address] 07/20/2023 11:30 AM EST Nurse Only Cardiac Rehab, [address] [place] [address] Gjsh, Nurse Cardiac Rehab [address] [place] [address], [place] [address] 07/23/2023 11:30 AM EST Nurse Only Cardiac Rehab, [address] [place] [address] Gjsh, Nurse Cardiac Rehab [address] [place] [address], [place] [address] 07/25/2023 11:30 AM EST Nurse Only Cardiac Rehab, [address] [place] [address] Gjsh, Nurse Cardiac Rehab [address] [place] [address], [place] [address] 07/27/2023 11:30 AM EST Nurse Only Cardiac Rehab, [address] [place] [address] Gjsh, Nurse Cardiac Rehab [address] [place] [address], [place] [address] 07/30/2023 11:30 AM EST Nurse Only Cardiac Rehab, [address] [place] [address] Gjsh, Nurse Cardiac Rehab [address] [place] [address], [place] [address] 08/01/2023 11:30 AM EST Nurse Only Cardiac Rehab, [facility] [address] [place] [address], [place] [address] Gjsh, Nurse Cardiac Rehab [address] [place] [address], [place] [address] 08/03/2023 11:30 AM EST Nurse Only Cardiac Rehab, [address] [place] [address] Gjsh, Nurse Cardiac Rehab [address] [place] [address], [place] [address] 08/06/2023 11:30 AM EST Nurse Only Cardiac Rehab, [address] [place] [address] Gjsh, Nurse Cardiac Rehab [address] [place] [address], [place] [address] 08/08/2023 11:30 AM EST Nurse Only Cardiac Rehab, [address] [place] [address] Gjsh, Nurse Cardiac Rehab [address] [place] [address], [place] [address] 08/10/2023 11:30 AM EST Nurse Only Cardiac Rehab, [address] [place] [address] Gjsh, Nurse Cardiac Rehab [address] [place] [address], [place] [address] 08/13/2023 11:30 AM EST Nurse Only Cardiac Rehab, [address] [place] [address] Gjsh, Nurse Cardiac Rehab [address] [place] [address], [place] [address] 08/15/2023 11:30 AM EST Nurse Only Cardiac Rehab, [address] [place] [address] Gjsh, Nurse Cardiac Rehab [address] [place] [address], [place] [address] 08/17/2023 11:30 AM EST Nurse Only Cardiac Rehab, [address] [place] [address] Gjsh, Nurse Cardiac Rehab [address] [place] [address], [place] [address] 08/20/2023 11:30 AM EST Nurse Only Cardiac Rehab, [address] [place] [address] Gjsh, Nurse Cardiac Rehab [address] [place] [address], [place] [address] 08/21/2023 2:15 PM EST Office Visit Cardiology, [address] [place] [address] Izzy Patiño, [address] [place] [address] 08/22/2023 11:30 AM EST Nurse Only Cardiac Rehab, [address] [place] [address] Gjsh, Nurse Cardiac Rehab [address] [place] [address], [place] [address] 08/24/2023 11:30 AM EST Nurse Only Cardiac Rehab, [address], [place] [address] Gjsh, Nurse Cardiac Rehab [address] [place] [address], [place] [address] 08/27/2023 11:30 AM EDT Nurse Only Cardiac Rehab, [address], [place] [address] Gjsh, Nurse Cardiac Rehab [address] [place] [address] 08/29/2023 11:30 AM EDT Nurse Only Cardiac Rehab, [facility] [address] [place] [address] [facility], Nurse Cardiac Rehab [address] [place] [address] 09/14/2023 1:20 PM EDT Office Visit Family Practice [facility] [address] [place] [address] Dewayne Pena MD [address] [place] [address] 10/02/2023 1:40 PM EDT Office Visit Rheumatology [place] [address] [facility] [place] [address] Timo Guzman MD [facility] [place] [address] 04/15/2024 10:40 AM EDT Office Visit Dermatology [facility] [address] [place] [address] Jonnathan House PA-C [address] [place] [address] Health Maintenance Due Date Last Done [...] D LEVEL ONCE IN A LIFETIME-USE SMARTSET# [id number] Completed 11/03/2022, 11/20/2018 Influenza Vaccine (FLU shot) [...] this encounter Medical Devices Implanted Type Area Boiler Shop Mechanic Device Identifier Shelf Expiration Date Model / Serial / Lot Cath Thermodilution 6fr - [id number] Implanted:Qty: 1 on 03/07/2023 by Armando Beltran MD at [facility] [employer] [id number] 10/10/2024 [id number] / / [id number] Valve Aortic Transcath Fx 34mm - [id number] Implanted:Qty: 1 on 05/03/2023 by Armando Beltran MD at [facility] [employer] [id number] 08/10/2024 EVOLUTFX- 34 / [id number] / [id number] documented as of this encounter Visit Diagnoses Diagnosis S/P TAVR (transcatheter aortic valve replacement)- Primary Heart valve replaced by other means documented in this encounter Advance Directives Documents on File Type Date Recorded Patient Stock Saw Operator Expl anation POLST 03/06/2022 [place] [facility] LIFE-SUSTAINING TREATMENT POLST 12/13/2021 [place] [facility] LIFE-SUSTAINING TREATMENT Latest Code Status on [...] Direct lorenzo occurred with: Patient Care Teams Measurer Machine Relationship Specialty Start Date End Date Dewayne Pena MD [address] [place] [address] PCP - General Family Medicine 04/30/23 documented as of this encounter
--- OUTSIDE RECORDS SUMMARY | 2023-10-08 23:10 | External Medical Summary | Summary of Care ---
Author Name Unknown Organization [facility] Address [address] [place] [address] Phone [phone] Care Team Providers Care Pre Owned Sales Manager Name Role Phone Dewayne Pena MD Primary Care Provider [phone] Reason for Visit * Reason Comments Cardiac Rehab Encounter Details Date Type Department Care Team (Late st Contact Info) Description 06/27/2023 11:30 AM EST Nurse Only Cardiac Rehab, [facility] [address] [place] [address] [facility], Nurse Cardiac Rehab [address] [place] [address] Cardiac Rehab Allergies No known active allergiesdocumented as of this encounter (statuses as of 06/27/2023) Medications Medication Sig Dispensed Refills Start Date [...] as of this encounter (statuses as of 06/27/2023) Active Problems Problem Noted Date Diagnosed Date 1st degree AV block 05/05/2023 S/P TAVR (transcatheter aortic valve replacement ) 05/03/2023 BMI less than 19,adult 03/16/2023 Senile osteoporosis 09/28/2022 Protein-calorie malnutrition 07/07/2022 Neuromuscular disorder 07/07/2022 PHT (pulmonary hypertension) 06/02/2021 Hx of melanoma of skin 03/24/2021 Overview: Hx MM date 2013, Depth unknown, no SLN, Location [facility] PSVT (paroxysmal supraventricular tachycardia) 0 12/15/2019 Raynaud's disease without gangrene 06/02/2019 Esophageal dysmotility 05/20/2019 JULIUS (obstructive sleep apnea) 05/20/2019 ILD (interstitial lung disease) 05/20/2019 Coronary artery disease invo lving [place] coronary artery of [place] heart without angina pectoris 03/24/2019 Nonrheumatic mitral valve stenosis 03/24/2019 H/O Hodgkin's lymphoma 07/05/2018 Acquired hypothyroidism 07/05/2018 documented as of this encounter (statuses as of 06/27/2023) Resolved Problems Problem Noted Date Diagnosed Date Resolved Date Osteoporotic fracture of left hip 09/28/2022 03/14/2023 Aortic root enlargement 07/07/2022 11/2 08/2022 Sinus tachycardia 03/16/2022 03/14/2023 Hx of nonmelanoma skin cancer 03/24/2021 05/14/2023 Overview: Hx MM date 2013, Depth unknown, no SLN, Location [facility] (still no path in chart, pt confirmed that he had surgery for melanoma at that site and for BCC prior, see below) BCC R forehead 2008 ([facility]) Prediabetes 02/28/2021 02/01/2023 Overview: Per Prediabetes protocol Moderate protein malnutrition 12/15/2019 03/14/2023 Ankylosing spondylitis of cervical region 12/15/2019 07/07/2022 Moderate aortic stenosis 03/24/2019 H/O atrial fibrillation with out current medication 07/05/2018 03/14/2023 documented as of this encounter (statuses as of 06/27/2023) Immunizations Name Administration Dates Next Due COVID-19 mRNA, LNP-s, No Pre serve, 2-Dose Series (Moderna) 08/21/2020,07/17/2020 COVID-19, MRNA-LNP, 23-24, P F, 30 MCG/0.3 mL, 12 YRS AND ABOVE, IM ([facility]) 03/27/2023 COVID-19, mRNA, LNP-s, PF, B ooster, [...] Sign Reading Time Taken Comments Blood Pressure 118/62 06/27/2023 11:48 AM EST Pulse - - Temperature - - Respiratory Rate - - Oxygen Saturation - - Inhaled Oxygen Concentration - - Weight 63 kg (139 lb) 06/27/2023 11:48 AM EST Height - - Body Mass Index 18.34 06/25/2023 10:12 AM EST documented in this encounter Functional Status Functional Status Response Date of Assess ment Do you have serious difficul ty walking or climbing stairs? (5 years old or older) No 05/04/2023 documented as of this encounter Nursing Notes * Verona Rodriguez RN - 06/27/2023 11:49 AM EST Pt participated in Cardiac Rehab today with no complications. Exercise regimen per protocol. Notes from Pulm visit 06/25 reviewed. documented in this encounter Plan of Treatment Upcoming Encounters Date Type Department Care Team (Late st Contact Info) Description 06/29/2023 11:30 AM EST Nurse Only Cardiac Rehab, [address] [address] Gjsh, Nurse Cardiac Rehab [address] [place] [address], [place] [address] 07/02/2023 7:15 AM EST Cardiac Studies Cardiac Studies, [facility] [address] [facility] [place] [address] 07/02/2023 11:30 AM EST Nurse Only Cardiac Rehab, [address] [place] [address] Gj[facility], Nurse Cardiac Rehab [address] [place] [address], [place] [address] 07/04/2023 11:30 AM EST Nurse Only Cardiac Rehab, [address] [address] Gj[facility], Nurse Cardiac Rehab [address] [place] [address], [place] [address] 07/06/2023 11:30 AM EST Nurse Only Cardiac Rehab, [address] [place] [address] Gjsh, Nurse Cardiac Rehab [address] [place] [address], [place] [address] 07/09/2023 11:30 AM EST Nurse Only Cardiac Rehab, [address] [place] [address] Gjsh, Nurse Cardiac Rehab [address] [place] [address], [place] [address] 07/09/2023 2:20 PM EST Office Visit Sleep Disorders [facility] [address] [facility] [place] [phone] Cara Brantley, [address] [place] [address] 07/11/2023 11:30 AM EST Nurse Only Cardiac Rehab, [address] [place] [address] Gj[facility], Nurse Cardiac Rehab [facility] [place] [address] 07/13/2023 11:30 AM EST Nurse Only Cardiac Rehab, [address] [place] [address] Gjsh, Nurse Cardiac Rehab [address] [place] [address], [place] [address] 07/16/2023 11:30 AM EST Nurse Only Cardiac Rehab, [address] [place] [address] Gjsh, Nurse Cardiac Rehab [address] [place] [address], [place] [address] 07/18/2023 11:30 AM EST Nurse Only Cardiac Rehab, [address] [place] [address] Gjsh, Nurse Cardiac Rehab [address] [place] [address], [place] [address] 07/20/2023 11:30 AM EST Nurse Only Cardiac Rehab, [address] [place] [address] Gjsh, Nurse Cardiac Rehab [address] [place] [address], [place] [address] 07/23/2023 11:30 AM EST Nurse Only Cardiac Rehab, [address] [place] [address] Gjsh, Nurse Cardiac Rehab [address] [place] [address], [place] [address] 07/25/2023 11:30 AM EST Nurse Only Cardiac Rehab, [address] [place] [address] Gjsh, Nurse Cardiac Rehab [address] [place] [address], [place] [address] 07/27/2023 11:30 AM EST Nurse Only Cardiac Rehab, [address] [place] [address] Gjsh, Nurse Cardiac Rehab [address] [place] [address], [place] [address] 07/30/2023 11:30 AM EST Nurse Only Cardiac Rehab, [facility] [address] [place] [address], [place] [address] Gjsh, Nurse Cardiac Rehab [address] [place] [address], [place] [address] 08/01/2023 11:30 AM EST Nurse Only Cardiac Rehab, [address] [place] [address] Gjsh, Nurse Cardiac Rehab [address] [place] [address], [place] [address] 08/03/2023 11:30 AM EST Nurse Only Cardiac Rehab, [address] [place] [address] Gjsh, Nurse Cardiac Rehab [address] [place] [address], [place] [address] 08/06/2023 11:30 AM EST Nurse Only Cardiac Rehab, [address] [place] [address] Gjsh, Nurse Cardiac Rehab [address] [place] [address], [place] [address] 08/08/2023 11:30 AM EST Nurse Only Cardiac Rehab, [address] [place] [address] Gjsh, Nurse Cardiac Rehab [address] [place] [address], [place] [address] 08/10/2023 11:30 AM EST Nurse Only Cardiac Rehab, [address] [place] [address] Gjsh, Nurse Cardiac Rehab [address] [place] [address], [place] [address] 08/13/2023 11:30 AM EST Nurse Only Cardiac Rehab, [facility] [address] [place] [address], [place] [address] Gjsh, Nurse Cardiac Rehab [address] [place] [address], [place] [address] 08/15/2023 11:30 AM EST Nurse Only Cardiac Rehab, [address] [place] [address] Gjsh, Nurse Cardiac Rehab [address] [place] [address], [place] [address] 08/17/2023 11:30 AM EST Nurse Only Cardiac Rehab, [address] [place] [address] Gjsh, Nurse Cardiac Rehab [address] [place] [address], [place] [address] 08/20/2023 11:30 AM EST Nurse Only Cardiac Rehab, [address] [place] [address] Gjsh, Nurse Cardiac Rehab [address] [place] [address], [place] [address] 08/21/2023 2:15 PM EST Office Visit Cardiology, [address] [place] [address] Izzy Patiño, [address] [place] [address] 08/22/2023 11:30 AM EST Nurse Only Cardiac Rehab, [address] [place] [address] Gjsh, Nurse Cardiac Rehab [address] [place] [address], [place] [address] 08/24/2023 11:30 AM EST Nurse Only Cardiac Rehab, [address] [place] [address] Gjsh, Nurse Cardiac Rehab [address] [place] [address], [place] [address] 08/27/2023 11:30 AM EDT Nurse Only Cardiac Rehab, [facility] [address] [place] [address] [facility], Nurse Cardiac Rehab [address] [place] [address] 08/29/2023 11:30 AM EDT Nurse Only Cardiac Rehab, [facility] [address] [place] [address] Gj, Nurse Cardiac Rehab [address] [place] [address] 09/14/2023 1:20 PM EDT Office Visit Family Practice [facility] [address] [place] [address] Dewayne Pena MD [address] [place] [address] 10/02/2023 1:40 PM EDT Office Visit Rheumatology [address] [address] Timo Guzman MD [address] [place] [address] 04/15/2024 10:40 AM EDT Office Visit Dermatology [facility] [address] [place] [id number] Jonnathan House PA-C [address] [place] [address] Health Maintenance Due Date Last Done [...] D LEVEL ONCE IN A LIFETIME-USE SMARTSET# [id number] Completed 11/03/2022, 11/20/2018 Influenza Vaccine (FLU shot) [...] this encounter Medical Devices Implanted Type Area Human Resources Manager Manufacturing Device Identifier Shelf Expiration Date Model / Serial / Lot Cath Thermodilution 6fr - [id number] Implanted:Qty: 1 on 03/07/2023 by Armando Beltran MD at [facility] [employer] [id number] 10/10/2024 [id number] / / [id number] Valve Aortic Transcath Fx 34mm - [id number] Implanted:Qty: 1 on 05/03/2023 by Armando Beltran MD [place] [facility] [place] [employer] [id number] 08/10/2024 [id number] / [id number] / [id number] documented as of this encounter Visit Diagnoses Diagnosis S/P TAVR (transcatheter aortic valve replacement)- Primary Heart valve replaced by other means documented in this encounter Advance Directives Documents on File Type Date Recorded 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
--- OUTSIDE RECORDS SUMMARY | 2023-10-08 23:10 | External Medical Summary | Summary of Care ---
Author Name Unknown Organization [facility] Address [address] [place] [address] Phone [phone] Care Team Providers Care Crm Marketing Specialist Name Role Phone Dewayne Pena MD Primary Care Provider [phone] Reason for Visit * Reason Comments Follow Up Encounter Details Date Type Department Care Team (Late st Contact Info) Description 06/25/2023 10:20 AM EST Office Visit Pulmonary Medicine, [facility] [address] [facility] [place] [address] Juan Pablo Marsh MD [address] [facility] [place] [phone] PHT (pulmonary hypertension) ([facility])*; ILD (interstitial lung disease) ([facility]) Allergies No known active allergiesdocumented as of this encounter (statuses as of 06/25/2023) Medications Medication Sig Dispensed Refills Start Date [...] dental work 4 Capsule 4 06/15/2023 Active Acetylcysteine (NAC 600) 600 MG CAPS Take 1 Tab by mouth 2 times a day. 60 Cap 0 05/20/2019 4 Discontinued Respiratory Therapy Supplies Device Use as directed. AutoPAP 5-20 cm 0 4 Discontinued([facility] List Clean Up) documented as of this encounter (statuses as of 06/25/2023) Active Problems Problem Noted Date Diagnosed Date 1st degree AV block 05/05/2023 S/P TAVR (transcatheter aortic valve replacement ) 05/03/2023 BMI less than 19,adult 03/16/2023 Senile osteoporosis 09/28/2022 Protein-calorie malnutrition 07/07/2022 Neuromuscular disorder 07/07/2022 PHT (pulmonary hypertension) 06/02/2021 Hx of melanoma of skin 03/24/2021 Overview: Hx MM date 2013, Depth unknown, no SLN, Location R jehovah's witness PSVT (paroxysmal supraventricular tachycardia) 0 12/15/2019 Raynaud's disease without gangrene 06/02/2019 Esophageal dysmotility 05/20/2019 JULIUS (obstructive sleep apnea) 05/20/2019 ILD (interstitial lung disease) 05/20/2019 Coronary artery disease invo lving asa'carsarmiut coronary artery of asa'carsarmiut heart without angina pectoris 03/24/2019 Nonrheumatic mitral valve stenosis 03/24/2019 H/O Hodgkin's lymphoma 07/05/2018 Acquired hypothyroidism 07/05/2018 documented as of this encounter (statuses as of 06/25/2023) Resolved Problems Problem Noted Date Diagnosed Date Resolved Date Osteoporotic fracture of left hip 09/28/2022 03/14/2023 Aortic root enlargement 07/07/2022 11/2 08/2022 Sinus tachycardia 03/16/2022 03/14/2023 Hx of nonmelanoma skin cancer 03/24/2021 05/14/2023 Overview: Hx MM date 2013, Depth unknown, no SLN, Location R jehovah's witness (still no path in chart, pt confirmed that he had surgery for melanoma at that site and for BCC prior, see below) BCC R forehead 2008 ([facility]) Prediabetes 02/28/2021 02/01/2023 Overview: Per Prediabetes protocol Moderate protein malnutrition 12/15/2019 03/14/2023 Ankylosing spondylitis of cervical region 12/15/2019 07/07/2022 Moderate aortic stenosis 03/24/2019 H/O atrial fibrillation with out current medication 07/05/2018 03/14/2023 documented as of this encounter (statuses as of 06/25/2023) Immunizations Name Administration Dates Next Due COVID-19 mRNA, LNP-s, No Pre serve, 2-Dose Series (Moderna) 08/21/2020,07/17/2020 COVID-19, MRNA-LNP, 23-24, P F, 30 MCG/0.3 mL, 12 YRS AND ABOVE, IM ([facility]) 03/27/2023 COVID-19, mRNA, LNP-s, PF, B ooster, [...] Sign Reading Time Taken Comments Blood Pressure 124/62 06/25/2023 10:12 AM EST Pulse 96 06/25/2023 10:12 AM EST Temperature 35.6 C (96.1 F) 06/25/2023 10:[address] Respiratory Rate 18 06/25/2023 10:12 AM EST Oxygen Saturation 92% 06/25/2023 10:13 AM EST ra, amb Inhaled Oxygen Concentration - - Weight 65.3 kg (144 lb) 06/25/2023 10:12 AM EST Height 185.4 cm (6' 1") 06/25/2023 10:12 AM EST Body Mass Index 19 06/25/2023 10:12 AM EST documented in this encounter Functional Status Functional Status Response Date of Assess ment Do you have serious difficul ty walking or climbing stairs? 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 Patient underwent aortic valve replacement at [facility] April 2023. Perioperative course was uneventful. Undergoing cardiac rehab. Describes significant improvement in respiratory symptoms following AVR. Other significant PMH acquired hypothyroidism, prediabetes, coronary artery disease, nonrheumatic mitral valve stenosis, paroxysmal supraventricular tachycardia, aortic root enlargement, neuromuscular disorder, history of atrial fibrillation controlled with medication, history of Hodgkin's lymphomawith radiation therapy to chest 45 years ago, history of melanoma skin, presenting for follow-up pulmonary medicine evaluation. Patient describes stable respiratory status, improved nutritional status while maintaining aspiration precautions. Swallowing ok. Increased pulmonary infiltrates likely related to prior history of radiation pneumonitis, recurrent aspiration and high risk for I LD secondary to underlying diagnoses. Had been evaluated by Rheumatology who did not feel his symptoms were consistent with an autoimmune condition. Radiographically no changes are noted at present. Physical examination shows tall cachectic male, no apparent distress, pleasant affect, scattered coarse crackles without dullness, regular cardiac rhythm, loud systolic murmur, no evidence of volume overload and nonlateralizing Neuro examination. Prior Chest x-rays were reviewed. Bilateral scattered I LD changes without lymphadenopathy/effusions. 6 minute walk test showed normal oxygen saturation on ambulation. We will maintain current recommendations including aspiration precautions, maintain physically active lifestyle, continue with incentive spirometry. Underlying risk factors for any future pulmonary compromise include Neuro muscular disease, myositis, history of radiation pneumonitis. Patient was adv ised to maintain aspiration precautions, follow-up with cardiopulmonary rehab and call with any change in respiratory symptoms status. 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 Agree with Pulmonary rehab referral , scheduled to start next week Bronchiectasis Uncomplicated Continue use of flutter device AVR 04/2023 On ASA C/w Cardiac Rehab Pulmonary Hypertension Suspect group 2 or 3 Wears CPAP nightly Esophageal dysmotility Worked with [employer] and has felt this has been extremely helpful Recent swallow study without evidence of dysmotility Body mass index is 19.13 kg/m. Patient continues to maintain weight Neuromuscular disorder Continues to work with neurology F/u in 1 year Evaluate for Cholo at follow up Juan Pablo Marsh MD Subjective CC: Chief Complaint Patient presents with Follow Up HPI: Nursing Notes: Ena Charles LPN 06/25/23 1016 Addendum Pt for f/u ILD, PHTN, and bronchiectasis. MMRC Dyspnea Scale = 2 (On level ground, I walk slower than people of the same age because of breathlessness or have to stop for breath when walking at my own) PULMONARY HYPERTENSION WHO CLASSIFICATION 1 (Patient with pulmonary hypertension but without resulting limitations of physical activity. Ordinary physical activity does not cause undue fatigue or dyspnea,chest pain, or heart syncope) Interm History/Respiratory Symptoms Cough: occasional, clear phlegm Hemoptysis: no Sinus Symptoms: no Hospitalizations: no ED Trips: no Triggers: smoke Nocturnal: no problems, sleeps with wedge pillow CPAP/BiPAP/O2: CPAP every night Flu Vaccine: 2022 Pneumovax: 2020 Prevnar: 2019 COVID 19: x 7, last one 03/27/23 Objective Filed Vitals: 06/25/23 1012 06/25/23 1013 BP: 124/62 Pulse: 96 Resp: 18 Temp: 35.6 C (96.1 F) TempSrc: Tympanic SpO2: 98% 92% Weight: 65.3 kg (144 lb) Height: 1.854 m (6' 1") Exam: Const: No signs of acute distress present. Head/Face: Normal on inspection. Eyes: Conjunctivae clear. Pupils equal round and reactive to light. ENMT: Oropharynx: No erythema, exudate or masses. Posterior pharynx is normal. Neck: Supple and symmetric. Resp: Respiratory examination as outlined above CV: Rate is regular. Rhythm is regular. No heart murmur appreciated. Extremities: No edema of the lower limbs bilaterally. Abdomen: Positive bowel sounds. Palpation of the abdomen reveals softness, but no distension or tenderness. No palpable hepatosplenomegaly. Musculo: Walks with a normal gait. Skin: Skin is warm and dry. Neuro: Coordination normal. No involuntary movement. Psych: Patient's attitude is cooperative. Mood is normal. Affect is normal. Tests reviewed with the patient: XR CHEST 1 VIEW Result Date: 05/04/2023 IMPRESSION Mild interval improvement in pulmonary edema. XR CHEST 1 VIEW Result Date: 05/03/2023 IMPRESSION 1. Concern for congestive failure with interstitial edema 2. Small left pleural effusion. 3. TAVR in good position. XR CHEST 2 VIEWS Result Date: 03/02/2023 IMPRESSION Stable chronic changes with no definite evidence of acute cardiopulmonary disease. Available Radiologic data was reviewed by me in PACS. The images were shown to the patient and findings were discussed with the patient. HOME MEDICATIONS: Ocuvite Adult Formula Oral Capsule Levothyroxine Sodium 75 MCG Oral Tablet (Levoxyl) Aspirin 81 MG Oral Tablet Chewable Turmeric Curcumin Oral Capsule CPAP Cholecalciferol 25 MCG (1000 UT) Oral Capsule Acetylcysteine (NAC 600) 600 MG CAPS Amoxicillin 500 MG Oral Capsule (Amoxil) ROS: No reported history of Hemoptysis, Hematemesis, Melena No reported history of Dysuria, Hematuria, Flank Pain No reported history of chronic headache, seizures No reported history of Fall or trauma . No reported history of recent change in weight or appetite. Past Medical History: Diagnosis Date Atrial fibrillation (HCC) BMI less than 19,adult 03/16/2023 Bronchiectasis (HCC) Cardiac arrhythmia Coronary artery disease involving asa'carsarmiut coronary artery of asa'carsarmiut heart without angina pectoris 03/24/2019 Hodgkin's disease (HCC) 1977 s/p radiation Hx of melanoma of skin 03/24/2021 Hx MM date 2013, Depth unknown, no SLN, Location R jehovah's witness ILD (interstitial lung disease) (HCC) Moderate aortic stenosis 03/24/2019 Nonrheumatic mitral valve [...] [facility] EGD, FLEXIBLE, DIAGNOSTIC 05/21/2019 reflux / [facility] MUSCLE BIOPSY, DEEP Left 04/11/2022 BIOPSY MUSCLE DEEP performed by Sadiq Kennedy MD at OR [facility] REMOVAL OF SPLEEN, TOTAL 1978 Due to Hodgkin's disease REPLACE AORTIC VALVE, PERCUTANEOUS FEMORAL Bilateral 05/03/2023 REPLACE AORTIC VALVE, PERCUTANEOUS FEMORAL performed by Armando Beltran MD at [facility] REPLACE AORTIC VALVE, PERCUTANEOUS FEMORAL Bilateral 05/03/2023 REPLACE AORTIC VALVE, PERCUTANEOUS FEMORAL performed by Cisco Herrera MD, PhD at [facility] TOTAL HIP REPLACEMENT & PROSTHESIS Left 11/28/2021 Social History Socioeconomic History Marital status: Occupational History 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 Tobacco Use Smoking status: Former Packs/day: 1.00 Years: 10.00 Additional pack years: 0.00 Total pack years: 10.00 Types: Cigarettes Quit date: 06/18/1977 Years since quittin.0 Smokeless tobacco: Never Vaping Use Vaping Use: [...] Food in the Last Year: Never true Family History Problem Relation Age of Onset Breast Cancer Mother Other (Natural causes) Mother age 98 Lung Disorder Father 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 MMRC Dyspnea Scale = 2 (On level ground, I walk slower than people of the same age because of breathlessness or have to stop for breath when walking at my own) PULMONARY HYPERTENSION WHO CLASSIFICATION 1 (Patient with pulmonary hypertension but without resulting limitations of physical activity. Ordinary physical activity does not cause undue fatigue or dyspnea,chest pain, or heart syncope) Interm History/Respiratory Symptoms Cough: occasional, clear phlegm Hemoptysis: no Sinus Symptoms: no Hospitalizations: no ED Trips: no Triggers: smoke Nocturnal: no problems, sleeps with wedge pillow CPAP/BiPAP/O2: CPAP every night Flu Vaccine: 2022 Pneumovax: 2020 Prevnar: 2019 COVID 19: x 7, last one 03/27/23 documented in this encounter Plan of Treatment Upcoming Encounters Date Type Department Care Team (Late st Contact Info) Description 06/27/2023 11:30 AM EST Nurse Only Cardiac Rehab, [address] [address] [facility], Nurse Cardiac Rehab [address] [place] [address] 06/29/2023 11:30 AM EST Nurse Only Cardiac Rehab, [address] [address] [facility], Nurse Cardiac Rehab [address] [place] [address] 07/02/2023 7:15 AM EST Cardiac Studies Cardiac Studies, [address] [address] 07/02/2023 11:30 AM EST Nurse Only Cardiac Rehab, [address] [address] [facility], Nurse Cardiac Rehab [address] [place] [address] 07/04/2023 11:30 AM EST Nurse Only Cardiac Rehab, [address] [address] [facility], Nurse Cardiac Rehab [address] [place] [address] 07/06/2023 11:30 AM EST Nurse Only Cardiac Rehab, [address] [place] [address] [facility], Nurse Cardiac Rehab [address] [place] [address], [place] [id number] 07/09/2023 11:30 AM EST Nurse Only Cardiac Rehab, [facility] [address] [place] [address], [place] [id number] [facility], Nurse Cardiac Rehab [address] [place] [address], [place] [id number] 07/09/2023 2:20 PM EST Office Visit Sleep Disorders Ctr [facility] [address] [place] [phone] Cara Brantley, [address] [place] [address] 07/11/2023 11:30 AM EST Nurse Only Cardiac Rehab, [address] [place] [address] [facility], Nurse Cardiac Rehab [address] [place] [address], [place] [id number] 07/13/2023 11:30 AM EST Nurse Only Cardiac Rehab, [address] [place] [address] [facility], Nurse Cardiac Rehab [address] [place] [address], [place] [id number] 07/16/2023 11:30 AM EST Nurse Only Cardiac Rehab, [address] [place] [address] [facility], Nurse Cardiac Rehab [address] [place] [address], [place] [id number] 07/18/2023 11:30 AM EST Nurse Only Cardiac Rehab, [address] [place] [address] [facility], Nurse Cardiac Rehab [address] [place] [address], [place] [id number] 07/20/2023 11:30 AM EST Nurse Only Cardiac Rehab, [facility] [address] [place] [address], [place] [address] [facility], Nurse Cardiac Rehab [address] [facility] [place] [address] 07/23/2023 11:30 AM EST Nurse Only Cardiac Rehab, [facility] [address] [place] [address], [place] [address] [facility], Nurse Cardiac Rehab [address] [place] [address], [place] [address] 07/25/2023 11:30 AM EST Nurse Only Cardiac Rehab, [address] [place] [address] [facility], Nurse Cardiac Rehab [address] [place] [address], [place] [address] 07/27/2023 11:30 AM EST Nurse Only Cardiac Rehab, [facility] [address] [place] [address], [place] [address] [facility], Nurse Cardiac Rehab [address] [place] [address], [place] [address] 07/30/2023 11:30 AM EST Nurse Only Cardiac Rehab, [address] [place] [address] [facility], Nurse Cardiac Rehab [address] [place] [address], [place] [address] 08/01/2023 11:30 AM EST Nurse Only Cardiac Rehab, [address] [place] [address] [facility], Nurse Cardiac Rehab [address] [place] [address], [place] [address] 08/03/2023 11:30 AM EST Nurse Only Cardiac Rehab, [address] [place] [address] [facility], Nurse Cardiac Rehab [address] [place] [address], [place] [address] 08/06/2023 11:30 AM EST Nurse Only Cardiac Rehab, [address] [place] [address] [facility], Nurse Cardiac Rehab [address] [place] [address], [place] [address] 08/08/2023 11:30 AM EST Nurse Only Cardiac Rehab, [address] [place] [address] [facility], Nurse Cardiac Rehab [address] [place] [address], [place] [address] 08/10/2023 11:30 AM EST Nurse Only Cardiac Rehab, [address] [place] [address] [facility], Nurse Cardiac Rehab [address] [place] [address], [place] [address] 08/13/2023 11:30 AM EST Nurse Only Cardiac Rehab, [address] [place] [address] [facility], Nurse Cardiac Rehab [address] [place] [address], [place] [address] 08/15/2023 11:30 AM EST Nurse Only Cardiac Rehab, [address] [place] [address] [facility], Nurse Cardiac Rehab [address] [place] [address], [place] [address] 08/17/2023 11:30 AM EST Nurse Only Cardiac Rehab, [address] [place] [address] [facility], Nurse Cardiac Rehab [address] [place] [address], [place] [address] 08/20/2023 11:30 AM EST Nurse Only Cardiac Rehab, [address] [place] [address] [facility], Nurse Cardiac Rehab [address] [place] [address], [place] [id number] 08/21/2023 2:15 PM EST Office Visit Cardiology, [facility] [address] [facility] [place] [address] Izzy Patiño, [address] [place] [address] 08/22/2023 11:30 AM EST Nurse Only Cardiac Rehab, [address] [place] [address] [facility], Nurse Cardiac Rehab [address] [place] [address], [place] [id number] 08/24/2023 11:30 AM EST Nurse Only Cardiac Rehab, [address] [place] [address] [facility], Nurse Cardiac Rehab [address] [place] [address], [place] [address] 08/27/2023 11:30 AM EDT Nurse Only Cardiac Rehab, [address] [place] [address] [facility], Nurse Cardiac Rehab [address] [place] [address], [place] [id number] 08/29/2023 11:30 AM EDT Nurse Only Cardiac Rehab, [address] [place] [address] [facility], Nurse Cardiac Rehab [address] [place] [address], [place] [id number] 09/14/2023 1:20 PM EDT Office Visit Family Practice [facility] [address] [place] [address] Dewayne Pena MD [address] [place] [address] 10/02/2023 1:40 PM EDT Office Visit Rheumatology [address] [place] [address] Timo Guzman MD [facility] [place] [place] [address] 04/15/2024 10:40 AM EDT Office Visit Dermatology [facility] [address] [place] [phone] Jonnathan House PA-C [address] [place], [place] [id number] Health Maintenance Due Date Last Done Comments [...] D LEVEL ONCE IN A LIFETIME-USE SMARTSET# [id number] Completed 11/03/2022, 11/20/2018 Influenza Vaccine (FLU shot) [...] encounter Medical Devices Implanted Type Area Double Needle Stitcher Device Identifier Shelf Expiration Date Model / Serial / Lot Cath Thermodilution 6fr - [id number] Implanted:Qty: 1 on 03/07/2023 by Armando Beltran MD at [facility] [employer] [id number] 10/10/2024 [id number] / / [id number] Valve Aortic Transcath Fx 34mm - [id number] Implanted:Qty: 1 on 05/03/2023 by Armando Beltran MD at [facility] [employer] [id number] 08/10/2024 [id number] / [id number] / [id number] documented as of this encounter Visit Diagnoses Diagnosis PHT (pulmonary hypertension) (HCC)- Primary Other chronic pulmonary heart diseases ILD (interstitial lung disease) (HCC) Postinflammatory pulmonary fibrosis documented in this encounter Advance Directives Documents on File Type Date Recorded Patient 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
--- OUTSIDE RECORDS SUMMARY | 2023-10-08 23:10 | External Medical Summary | Summary of Care ---
Author Name Unknown Organization [facility] Address [address] [place] [address] Phone [phone] Care Team Providers Care Furnace Utility Operator Name Role Phone Dewayne Pena MD Primary Care Provider [phone] [phone] Reason for Visit * Reason Comments Cardiac Rehab Encounter Details Date Type Department Care Team (Late st Contact Info) Description 07/04/2023 11:30 AM EST Nurse Only Cardiac Rehab, [facility] [address] [place] [address] [facility], Nurse Cardiac Rehab [address] [place] [address] Cardiac Rehab Allergies No known active allergiesdocumented as of this encounter (statuses as of 07/04/2023) Medications Medication Sig Dispensed Refills Start Date [...] as of this encounter (statuses as of 07/04/2023) Active Problems Problem Noted Date Diagnosed Date 1st degree AV block 05/05/2023 S/P TAVR (transcatheter aortic valve replacement ) 05/03/2023 BMI less than 19,adult 03/16/2023 Senile osteoporosis 09/28/2022 Protein-calorie malnutrition 07/07/2022 Neuromuscular disorder 07/07/2022 PHT (pulmonary hypertension) 06/02/2021 Hx of melanoma of skin 03/24/2021 Overview: Hx MM date 2013, Depth unknown, no SLN, Location R holiness PSVT (paroxysmal supraventricular tachycardia) 0 12/15/2019 Raynaud's disease without gangrene 06/02/2019 Esophageal dysmotility 05/20/2019 JULIUS (obstructive sleep apnea) 05/20/2019 ILD (interstitial lung disease) 05/20/2019 Coronary artery disease invo lving qawalangin coronary artery of qawalangin heart without angina pectoris 03/24/2019 Nonrheumatic mitral valve stenosis 03/24/2019 H/O Hodgkin's lymphoma 07/05/2018 Acquired hypothyroidism 07/05/2018 documented as of this encounter (statuses as of 07/04/2023) Resolved Problems Problem Noted Date Diagnosed Date Resolved Date Osteoporotic fracture of left hip 09/28/2022 03/14/2023 Aortic root enlargement 07/07/2022 11/2 08/2022 Sinus tachycardia 03/16/2022 03/14/2023 Hx of nonmelanoma skin cancer 03/24/2021 05/14/2023 Overview: Hx MM date 2013, Depth unknown, no SLN, Location R holiness (still no path in chart, pt confirmed that he had surgery for melanoma at that site and for BCC prior, see below) BCC R forehead 2008 ([facility]) Prediabetes 02/28/2021 02/01/2023 Overview: Per Prediabetes protocol Moderate protein malnutrition 12/15/2019 03/14/2023 Ankylosing spondylitis of cervical region 12/15/2019 07/07/2022 Moderate aortic stenosis 03/24/2019 H/O atrial fibrillation with out current medication 07/05/2018 03/14/2023 documented as of this encounter (statuses as of 07/04/2023) Immunizations Name Administration Dates Next Due COVID-19 mRNA, LNP-s, No Pre serve, 2-Dose Series (Moderna) 08/21/2020,07/17/2020 COVID-19, MRNA-LNP, 23-24, P F, 30 MCG/0.3 mL, 12 YRS AND ABOVE, IM ([facility] 03/27/2023 COVID-19, mRNA, LNP-s, PF, B ooster, [...] Reading Time Taken Comments Blood Pressure 128/78 07/04/2023 11:51 AM EST Pulse 104 07/04/2023 11:51 AM EST Temperature - - Respiratory Rate - - Oxygen Saturation - - Inhaled Oxygen Concentration - - Weight 64.3 kg (141 lb 12.8 oz) 024 11:51 AM EST Height - - Body Mass Index 18.71 06/25/2023 10:12 AM EST documented in this encounter Functional Status Functional Status Response Date of Assess ment Do you have serious difficul ty walking or climbing stairs? (5 years old or older) No 05/04/2023 documented as of this encounter Nursing Notes * Paz Johns RN - 07/04/2023 11:52 AM EST Pt participated in Cardiac Rehab today with no complications. Exercise regimen per protocol. documented in this encounter Plan of Treatment Upcoming Encounters Date Type Department Care Team (Late st Contact Info) Description 07/06/2023 11:30 AM EST Nurse Only Cardiac Rehab, [place] [address] Gjsh, Nurse Cardiac Rehab [address] [place] [address], [place] [address] 07/09/2023 11:30 AM EST Nurse Only Cardiac Rehab, [address] [place] [address] Gjsh, Nurse Cardiac Rehab [address] [place] [address], [place] [address] 07/09/2023 2:20 PM EST Office Visit Sleep Disorders Ctr [facility] [address] [place] [address] Cara Brantley [address] [place] [address] 07/11/2023 11:30 AM EST Nurse Only Cardiac Rehab, [address] [place] [address] Gjsh, Nurse Cardiac Rehab [address] [place] [address], [place] [address] 07/13/2023 11:30 AM EST Nurse Only Cardiac Rehab, [address] [place] [address] Gjsh, Nurse Cardiac Rehab [address] [place] [address], [place] [address] 07/16/2023 11:30 AM EST Nurse Only Cardiac Rehab, [address] [place] [address] Gjsh, Nurse Cardiac Rehab [address] [place] [address], [place] [address] 07/18/2023 11:30 AM EST Nurse Only Cardiac Rehab, [address] [place] [address] Gjsh, Nurse Cardiac Rehab [address] [place] [address], [place] [address] 07/20/2023 11:30 AM EST Nurse Only Cardiac Rehab, [facility] [address] [place] [address] Gjsh, Nurse Cardiac Rehab [address] [facility] [address] 07/23/2023 11:30 AM EST Nurse Only Cardiac Rehab, [facility] [address] [place] [address], [place] [address] Gjsh, Nurse Cardiac Rehab [address] [facility] [address] 07/25/2023 11:30 AM EST Nurse Only Cardiac Rehab, [address] [place] [address] Gjsh, Nurse Cardiac Rehab [address] [place] [address], [place] [address] 07/27/2023 11:30 AM EST Nurse Only Cardiac Rehab, [facility] [address] [facility] [address] Gjsh, Nurse Cardiac Rehab [address] [place] [address], [place] [address] 07/30/2023 11:30 AM EST Nurse Only Cardiac Rehab, [facility] [address] [facility] [address] Gjsh, Nurse Cardiac Rehab [address] [place] [address], [place] [address] 08/01/2023 11:30 AM EST Nurse Only Cardiac Rehab, [facility] [address] [place] [address], [place] [address] Gjsh, Nurse Cardiac Rehab [address] [place] [address], [place] [address] 08/03/2023 11:30 AM EST Nurse Only Cardiac Rehab, [address] [place] [address] Gjsh, Nurse Cardiac Rehab [address] [place] [address], [place] [address] 08/06/2023 11:30 AM EST Nurse Only Cardiac Rehab, [address] [place] [address] Gjsh, Nurse Cardiac Rehab [facility] [address] 08/08/2023 11:30 AM EST Nurse Only Cardiac Rehab, [address] [place] [address] Gjsh, Nurse Cardiac Rehab [address] [place] [address], [place] [address] 08/10/2023 11:30 AM EST Nurse Only Cardiac Rehab, [address] [place] [address] Gjsh, Nurse Cardiac Rehab [address] [place] [address], [place] [address] 08/13/2023 11:30 AM EST Nurse Only Cardiac Rehab, [address] [place] [address] Gjsh, Nurse Cardiac Rehab [address] [place] [address], [place] [address] 08/15/2023 11:30 AM EST Nurse Only Cardiac Rehab, [address] [place] [address] Gjsh, Nurse Cardiac Rehab [address] [place] [address], [place] [address] 08/17/2023 11:30 AM EST Nurse Only Cardiac Rehab, [address] [place] [address] Gjsh, Nurse Cardiac Rehab [address] [place] [address], [place] [address] 08/20/2023 11:30 AM EST Nurse Only Cardiac Rehab, [address] [place] [address] Gjsh, Nurse Cardiac Rehab [facility] [place] [address] 08/21/2023 2:15 PM EST Office Visit Cardiology, [facility] [address] [facility] [place] [address] Izzy Patiño, [address] [address] 08/22/2023 11:30 AM EST Nurse Only Cardiac Rehab, [address] [place] [address] Gjsh, Nurse Cardiac Rehab [address] [place] [address], [place] [address] 08/24/2023 11:30 AM EST Nurse Only Cardiac Rehab, [address] [place] [address] Gjsh, Nurse Cardiac Rehab [address] [place] [address], [place] [address] 08/27/2023 11:30 AM EDT Nurse Only Cardiac Rehab, [address] [place] [address] Gjsh, Nurse Cardiac Rehab [address] [place] [address], [place] [address] 08/29/2023 11:30 AM EDT Nurse Only Cardiac Rehab, [address] [place] [address] Gjsh, Nurse Cardiac Rehab [address] [place] [address], [place] [address] 09/14/2023 1:20 PM EDT Office Visit Family Practice [facility] [address] [place] [address] Dewayne Pena MD [address] [place] [address] 10/02/2023 1:40 PM EDT Office Visit Rheumatology [facility] [address] [facility] [place] [address] Timo Guzman MD [address] [place] [address] 04/15/2024 10:40 AM EDT Office Visit Dermatology [facility] [address] [place] [address] Jonnathan House PA-C [address] [place] [address] Health Maintenance Due Date Last Done Comments [...] D LEVEL ONCE IN A LIFETIME-USE SMARTSET# 39839 Completed 11/03/2022, 11/20/2018 Influenza Vaccine (FLU shot) [...] this encounter Medical Devices Implanted Type Area Lozenge Maker Helper Device Identifier Shelf Expiration Date Model / Serial / Lot Cath Thermodilution 6fr - [id number] Implanted:Qty: 1 on 03/07/2023 by Armando Beltran MD at [facility] [place] [employer] KRISTYN [id number] 10/10/2024 [id number] / / [id number] Valve Aortic Transcath Fx 34mm - [id number] Implanted:Qty: 1 on 05/03/2023 by Armando Beltran MD at [facility] [place] [employer] [id number] 08/10/2024 EVOLUTFX- 34 / [id number] / [id number] documented as of this encounter Visit Diagnoses Diagnosis S/P TAVR (transcatheter aortic valve replacement)- Primary Heart valve replaced by other means documented in this encounter Advance Directives Documents on File Type Date Recorded Patient Water Purifier Expl anation POLST 03/06/2022 [place] OR DERS [...] Direct lorenzo occurred with: Patient Care Teams Furnace Utility Operator Relationship Specialty Start Date End Date Dewayne Pena MD [address] [facility] [place] [address] PCP - General Family Medicine 04/30/23 documented as of this encounter
--- OUTSIDE RECORDS SUMMARY | 2023-10-08 23:10 | External Medical Summary | Summary of Care ---
Author Name Unknown Organization [facility] Address [address] [facility] [place] [address] Phone [phone] Care Team Providers Care Tin Whiz Machine Operator Name Role Phone Dewayne Pena MD Primary Care Provider [phone] [phone] Encounter Details Date Type Department Care Team (Late st Contact Info) Description 07/10/2023 Telephone Pulmonary Medicine, [facility] [address] [place] [address] Cara Brantley, [address] [place] [address] Allergies No known active allergiesdocumented as of this encounter (statuses as of 07/10/2023) Medications Medication Sig Dispensed Refills Start Date [...] as of this encounter (statuses as of 07/10/2023) Active Problems Problem Noted Date Diagnosed Date 1st degree AV block 05/05/2023 S/P TAVR (transcatheter aortic valve replacement ) 05/03/2023 BMI less than 19,adult 03/16/2023 Senile osteoporosis 09/28/2022 Protein-calorie malnutrition 07/07/2022 Neuromuscular disorder 07/07/2022 PHT (pulmonary hypertension) 06/02/2021 Hx of melanoma of skin 03/24/2021 Overview: Hx MM date 2013, Depth unknown, no SLN, Location R moravian PSVT (paroxysmal supraventricular tachycardia) 0 12/15/2019 Raynaud's disease without gangrene 06/02/2019 Esophageal dysmotility 05/20/2019 JULIUS (obstructive sleep apnea) 05/20/2019 ILD (interstitial lung disease) 05/20/2019 Coronary artery disease invo lving ewiiaapaayp coronary artery of ewiiaapaayp heart without angina pectoris 03/24/2019 Nonrheumatic mitral valve stenosis 03/24/2019 H/O Hodgkin's lymphoma 07/05/2018 Acquired hypothyroidism 07/05/2018 documented as of this encounter (statuses as of 07/10/2023) Resolved Problems Problem Noted Date Diagnosed Date Resolved Date Osteoporotic fracture of left hip 09/28/2022 03/14/2023 Aortic root enlargement 07/07/2022 11/2 08/2022 Sinus tachycardia 03/16/2022 03/14/2023 Hx of nonmelanoma skin cancer 03/24/2021 05/14/2023 Overview: Hx MM date 2013, Depth unknown, no SLN, Location R moravian (still no path in chart, pt confirmed that he had surgery for melanoma at that site and for BCC prior, see below) BCC R forehead 2008 ([facility]) Prediabetes 02/28/2021 02/01/2023 Overview: Per Prediabetes protocol Moderate protein malnutrition 12/15/2019 03/14/2023 Ankylosing spondylitis of cervical region 12/15/2019 07/07/2022 Moderate aortic stenosis 03/24/2019 H/O atrial fibrillation with out current medication 07/05/2018 03/14/2023 documented as of this encounter (statuses as of 07/10/2023) Immunizations Name Administration Dates Next Due COVID-19 [...] money to buy more. Never true 05/09/20 Within the past 12 months, t he [...] encounter Miscellaneous Notes * Telephone Encounter - Jarod Espino OSA - 07/10/2023 8:19 AM EST Orders in 07/10 adapt supplies documented in this encounter Plan of Treatment Upcoming Encounters Date Type Department Care Team (Late st Contact Info) Description 07/11/2023 11:30 AM EST Nurse Only Cardiac Rehab, [address] [address] [facility], Nurse Cardiac Rehab [address] [place] [address] 07/13/2023 11:30 AM EST Nurse Only Cardiac Rehab, [address] [address] [facility], Nurse Cardiac Rehab [address] [place] [address] 07/16/2023 11:30 AM EST Nurse Only Cardiac Rehab, [facility] [address] [facility] [place] [address] Gjsh, Nurse Cardiac Rehab [address] [facility] [place] [address] 07/18/2023 11:30 AM EST Nurse Only Cardiac Rehab, [facility] [address] [place] [address], [place] [address] Gjsh, Nurse Cardiac Rehab [address] [facility] [place] [address] 07/20/2023 11:30 AM EST Nurse Only Cardiac Rehab, [address] [place] [address] Gjsh, Nurse Cardiac Rehab [address] [place] [address], [place] [address] 07/23/2023 11:30 AM EST Nurse Only Cardiac Rehab, [place] [id number] [facility] [place] [address] Gjsh, Nurse Cardiac Rehab [address] [place] [address], [place] [address] 07/25/2023 11:30 AM EST Nurse Only Cardiac Rehab, [address] [place] [address] Gjsh, Nurse Cardiac Rehab [address] [place] [address], [place] [address] 07/27/2023 11:30 AM EST Nurse Only Cardiac Rehab, [address] [place] [address] Gjsh, Nurse Cardiac Rehab [address] [place] [address], [place] [address] 07/30/2023 11:30 AM EST Nurse Only Cardiac Rehab, [address] [place] [address] Gjsh, Nurse Cardiac Rehab [address] [place] [address], [place] [address] 08/01/2023 11:30 AM EST Nurse Only Cardiac Rehab, [facility] [address] [place] [address], [place] [address] Gjsh, Nurse Cardiac Rehab [address] [facility] [place] [address] 08/03/2023 11:30 AM EST Nurse Only Cardiac Rehab, [facility] [address] [place] [address], [place] [address] Gjsh, Nurse Cardiac Rehab [address] [place] [address], [place] [address] 08/06/2023 11:30 AM EST Nurse Only Cardiac Rehab, [address] [place] [address] Gjsh, Nurse Cardiac Rehab [address] [place] [address], [place] [address] 08/08/2023 11:30 AM EST Nurse Only Cardiac Rehab, [place] [id number] [facility] [place] [address] Gjsh, Nurse Cardiac Rehab [address] [place] [address], [place] [address] 08/10/2023 11:30 AM EST Nurse Only Cardiac Rehab, [address] [place] [address] Gjsh, Nurse Cardiac Rehab [address] [place] [address], [place] [address] 08/13/2023 11:30 AM EST Nurse Only Cardiac Rehab, [address] [place] [address] Gjsh, Nurse Cardiac Rehab [address] [place] [address], [place] [address] 08/15/2023 11:30 AM EST Nurse Only Cardiac Rehab, [address] [place] [address] Gjsh, Nurse Cardiac Rehab [address] [facility] [place] [address] 08/17/2023 11:30 AM EST Nurse Only Cardiac Rehab, [facility] [address] [place] [address], [place] [address] Gjsh, Nurse Cardiac Rehab [address] [place] [address], [place] [address] 08/20/2023 11:30 AM EST Nurse Only Cardiac Rehab, [address] [place] [address] Gj, Nurse Cardiac Rehab [address] [place] [address], [place] [address] 08/21/2023 2:15 PM EST Office Visit Cardiology, [facility] [address] [facility] [place] [address] Izzy Patiño, [address] [place] [address] 08/22/2023 11:30 AM EST Nurse Only Cardiac Rehab, [address] [place] [address] [facility], Nurse Cardiac Rehab [address] [place] [address], [place] [address] 08/24/2023 11:30 AM EST Nurse Only Cardiac Rehab, [address] [place] [address] Gj, Nurse Cardiac Rehab [address] [place] [address], [place] [address] 08/27/2023 11:30 AM EDT Nurse Only Cardiac Rehab, [address] [place] [address] Gj, Nurse Cardiac Rehab [address] [place] [address], [place] [address] 08/29/2023 11:30 AM EDT Nurse Only Cardiac Rehab, [facility] [address] [place] [address] [facility], Nurse Cardiac Rehab [address] [place] [address] 09/14/2023 1:20 PM EDT Office Visit Family Practice [facility] [address] [place] [address] Dewayne Pena MD [address] [place] [address] 10/02/2023 1:40 PM EDT Office Visit Rheumatology [address] [place] [address] Timo Guzman MD [facility] [employer] [place] [address] 04/15/2024 10:40 AM EDT Office Visit Dermatology [facility] [address] [place] [address] Jonnathan House PA-C [address] [place] [address] Health Maintenance Due Date Last Done [...] D LEVEL ONCE IN A LIFETIME-USE SMARTSET# 51908 Completed 11/03/2022, 11/20/2018 Influenza Vaccine (FLU shot) [...] this encounter Medical Devices Implanted Type Area Carpenter Assistant Installer Device Identifier Shelf Expiration Date Model / Serial / Lot Cath Thermodilution 6fr - [id number] Implanted:Qty: 1 on 03/07/2023 by Armando Beltran MD at [facility] [place] [employer] [place]RISTYN [id number] 10/10/2024 [id number] / / [id number] Valve Aortic Transcath Fx 34mm - [id number] Implanted:Qty: 1 on 05/03/2023 by Armando Beltran MD at [facility] [place] [employer] [id number] 08/10/2024 EVOLUTFX- 34 / [id number] / [id number] documented as of this encounter Advance Directives Documents on File Type Date Recorded Patient Mat Linker Expl anation POLST 03/06/2022 [place] OR DERS FOR LIFE-SUSTAINING TREATMENT POLST 12/13/2021 [place] OR DERS FOR LIFE-SUSTAINING TREATMENT Latest Code [...] Direct lorenzo occurred with: Patient Care Teams Tin Whiz Machine Operator Relationship Specialty Start Date End Date Dewayne Pena MD [address] [place] [address] PCP - General Family Medicine 04/30/23 documented as of this encounter
--- OUTSIDE RECORDS SUMMARY | 2023-10-08 23:10 | External Medical Summary | Summary of Care ---
Author Name Unknown Organization [facility] Address [address] [facility] [place] [address] Phone [phone] Care Team Providers Care Chief Sustainability Officer Name Role Phone Dewayne Pena MD Primary Care Provider [phone] Reason for Visit * Reason Onset Date Comments Appointment 02/08/2022 Encounter Details Date Type Department Care Team (Late st Contact Info) Description 02/08/2022 Telephone Sleep Disorders Ctr [facility] [address] [facility] [place] [address] Shane العراقي MD Appointment Allergies No known active allergiesdocumented as of this encounter (statuses as of 06/22/2023) Medications Medication Sig Dispensed Refills Start Date End Date Status Acetylcysteine (NAC 600) 600 MG CAPS Take 1 Tab by mouth 2 times a day. 60 Cap 0 05/20/2019 Active Cholecalciferol 25 MCG (1000 UT) Oral Capsule Take 1 Capsule by mouth in the morning. 0 Active Respiratory Therapy Supplies Device Use as directed. AutoPAP 5-20 cm 0 Active CPAP every night at bedtime . Auto 5-20 cm 0 Active aspirin 81 MG chewable tablet Take 1 Tablet by mouth in the morning. With food.. 100 Tab 5 07/05/2018 3 Discontinued Cyanocobalamin (B-12) 100 MCG TABS Take by mouth 1 Tablet daily . 0 3 Discontinued Multiple Vitamins-Minera ls (OCUVITE ADULT FORMULA) CAPS Take by mouth 1 Capsule daily . 0 3 Discontinued(Pat ient preference/disco ntinuation) Levothyroxine Sodium 75 MCG Oral Tablet (Levoxyl) TAKE 1 TABLET BY MOUTH EVERY DAY AT LEAST 30 MIN BEFORE BREAKFAST OR OTHER MEDICATION 90 Tablet 3 04/27/2021 2 Discontinued Multivitamin Adult Oral Tablet Take 1 Tablet by mouth daily. 0 3 Discontinued([facility] Hospital, Clinic, or Other Facility Administered Medication Ordered Dose Route Frequency Start Date End Date Status Albuterol Sulfate (Proventil) (5 MG/ML) 0.5% *conc* inhalation solution 5 mgIndications:ILD (interstitial lung disease) (HCC) 5 mg NEBULIZER PRN 06/02/2021 06/02/2022 Ended Albuterol Sulfate (Proventil) (2.5 MG/3ML) 0.083% inhalation solution 2.5 mgIndications:ILD (interstitial lung disease) (HCC) 2.5 mg NEBULIZER PRN 06/02/2021 06/02/2022 Ended documented as of this encounter (statuses as of 06/22/2023) Active Problems Problem Noted Date Diagnosed Date 1st degree AV block 05/05/2023 S/P TAVR (transcatheter aortic valve replacement ) 05/03/2023 BMI less than 19,adult 03/16/2023 Senile osteoporosis 09/28/2022 Protein-calorie malnutrition 07/07/2022 Neuromuscular disorder 07/07/2022 PHT (pulmonary hypertension) 06/02/2021 Hx of melanoma of skin 03/24/2021 Overview: Hx MM date 2013, Depth unknown, no SLN, Location R shinto PSVT (paroxysmal supraventricular tachycardia) 0 12/15/2019 Raynaud's disease without gangrene 06/02/2019 Esophageal dysmotility 05/20/2019 JULIUS (obstructive sleep apnea) 05/20/2019 ILD (interstitial lung disease) 05/20/2019 Coronary artery disease invo lving [place] coronary artery of [place] heart without angina pectoris 03/24/2019 Nonrheumatic mitral valve stenosis 03/24/2019 H/O Hodgkin's lymphoma 07/05/2018 Acquired hypothyroidism 07/05/2018 documented as of this encounter (statuses as of 06/22/2023) Resolved Problems Problem Noted Date Diagnosed Date Resolved Date Osteoporotic fracture of left hip 09/28/2022 03/14/2023 Aortic root enlargement 07/07/20222 08/2022 Sinus tachycardia 03/16/2022 03/14/2023 Hx of nonmelanoma skin cancer 03/24/2021 05/14/2023 Overview: Hx MM date 2013, Depth unknown, no SLN, Location R shinto (still no path in chart, pt confirmed that he had surgery for melanoma at that site and for BCC prior, see below) BCC R forehead 2008 ([facility]) Prediabetes 02/28/2021 02/01/2023 Overview: Per Prediabetes protocol Moderate protein malnutrition 12/15/2019 03/14/2023 Ankylosing spondylitis of cervical region 12/15/2019 07/07/2022 Moderate aortic stenosis 03/24/2019 H/O atrial fibrillation with out current medication 07/05/2018 03/14/2023 documented as of this encounter (statuses as of 06/22/2023) Immunizations Name Administration Dates Next Due COVID-19 mRNA, LNP-s, No Pre serve, 2-Dose Series (Moderna) 08/21/2020,07/17/2020 COVID-19, MRNA-LNP, 23-24, P F, 30 MCG/0.3 mL, 12 YRS AND ABOVE, IM (Voov[employer] aka [employer]-Comirnat) 03/27/2023 COVID-19, mRNA, LNP-s, PF, B ooster, [...] on file documented as of this encounter Miscellaneous Notes * Telephone Encounter - Ena Marin, JULIUS - 06/22/2023 5:49 PM EST Completed on 04/03/22. * Telephone Encounter - Liberty Whitfield JULIUS - 02/08/2022 3:13 PM EDT LMOM to schedule Pft/walk test documented in this encounter Plan of Treatment Upcoming Encounters Date Type Department Care Team (Late st Contact Info) Description 06/25/2023 10:20 AM EST Office Visit Pulmonary Medicine, [address] [place] [address] Juan Pablo Marsh [facility] [address] [facility] [address] 06/27/2023 11:30 AM EST Nurse Only Cardiac Rehab, [address] [address] Gj, Nurse Cardiac Rehab [address] [place] [address] 06/29/2023 11:30 AM EST Nurse Only Cardiac Rehab, [address] [place] [address] Gj, Nurse Cardiac Rehab [address] [place] [address] 07/02/2023 7:15 AM EST Cardiac Studies Cardiac Studies, [address] [place] [address] 07/02/2023 11:30 AM EST Nurse Only Cardiac Rehab, [address] [place] [address] Gj, Nurse Cardiac Rehab [address] [place] [address], [place] [address] 07/04/2023 11:30 AM EST Nurse Only Cardiac Rehab, [address] [place] [address] Gjsh, Nurse Cardiac Rehab [address] [place] [address], [place] [address] 07/06/2023 11:30 AM EST Nurse Only Cardiac Rehab, [facility] [address] [place] [address], [place] [address] Gjsh, Nurse Cardiac Rehab [address] [place] [address], [place] [address] 07/09/2023 11:30 AM EST Nurse Only Cardiac Rehab, [facility] [address] [place] [address], [place] [address] Gjsh, Nurse Cardiac Rehab [address] [place] [address], [place] [address] 07/09/2023 2:20 PM EST Office Visit Sleep Disorders Ctr [facility] [address] [place] [address] Cara Brantley, [address] [place] [address] 07/11/2023 11:30 AM EST Nurse Only Cardiac Rehab, [address] [place] [address] Gjsh, Nurse Cardiac Rehab [address] [place] [address], [place] [address] 07/13/2023 11:30 AM EST Nurse Only Cardiac Rehab, [address] [place] [address] Gjsh, Nurse Cardiac Rehab [address] [place] [address], [place] [address] 07/16/2023 11:30 AM EST Nurse Only Cardiac Rehab, [address] [place] [address] Gjsh, Nurse Cardiac Rehab [address] [place] [address], [place] [address] 07/18/2023 11:30 AM EST Nurse Only Cardiac Rehab, [address] [place] [address] Gjsh, Nurse Cardiac Rehab [address] [place] [address], [place] [address] 07/20/2023 11:30 AM EST Nurse Only Cardiac Rehab, [address] [place] [address] Gjsh, Nurse Cardiac Rehab [address] [place] [address], [place] [address] 07/23/2023 11:30 AM EST Nurse Only Cardiac Rehab, [address] [place] [address] Gjsh, Nurse Cardiac Rehab [address] [place] [address], [place] [address] 07/25/2023 11:30 AM EST Nurse Only Cardiac Rehab, [address] [place] [address] Gjsh, Nurse Cardiac Rehab [address] [place] [address], [place] [address] 07/27/2023 11:30 AM EST Nurse Only Cardiac Rehab, [address] [place] [address] Gjsh, Nurse Cardiac Rehab [address] [place] [address], [place] [address] 07/30/2023 11:30 AM EST Nurse Only Cardiac Rehab, [address] [place] [address] Gjsh, Nurse Cardiac Rehab [address] [place] [address], [place] [address] 08/01/2023 11:30 AM EST Nurse Only Cardiac Rehab, [address] [place] [address] Gjsh, Nurse Cardiac Rehab [address] [place] [address], [place] [address] 08/03/2023 11:30 AM EST Nurse Only Cardiac Rehab, [address] [place] [address] Gjsh, Nurse Cardiac Rehab [address] [place] [address], [place] [address] 08/06/2023 11:30 AM EST Nurse Only Cardiac Rehab, [facility] [address] [place] [address], [place] [address] Gjsh, Nurse Cardiac Rehab [address] [place] [address], [place] [address] 08/08/2023 11:30 AM EST Nurse Only Cardiac Rehab, [address] [place] [address] Gjsh, Nurse Cardiac Rehab [address] [place] [address], [place] [address] 08/10/2023 11:30 AM EST Nurse Only Cardiac Rehab, [address] [place] [address] Gjsh, Nurse Cardiac Rehab [address] [place] [address], [place] [address] 08/13/2023 11:30 AM EST Nurse Only Cardiac Rehab, [address] [place] [address] Gjsh, Nurse Cardiac Rehab [address] [place] [address], [place] [address] 08/15/2023 11:30 AM EST Nurse Only Cardiac Rehab, [address] [place] [address] Gjsh, Nurse Cardiac Rehab [address] [place] [address], [place] [address] 08/17/2023 11:30 AM EST Nurse Only Cardiac Rehab, [address] [place] [address] Gjsh, Nurse Cardiac Rehab [address] [place] [address], [place] [address] 08/20/2023 11:30 AM EST Nurse Only Cardiac Rehab, [address] [place] [address] Gjsh, Nurse Cardiac Rehab [address] [place] [address], [place] [address] 08/21/2023 2:15 PM EST Office Visit Cardiology, [facility] [address] [facility] [place] [address] Izzy Patiño, [address] [place] [address] 08/22/2023 11:30 AM EST Nurse Only Cardiac Rehab, [address] [place] [address] Gjsh, Nurse Cardiac Rehab [facility] [place] [address] 08/24/2023 11:30 AM EST Nurse Only Cardiac Rehab, [address] [place] [address] Gjsh, Nurse Cardiac Rehab [address] [place] [address], [place] [address] 08/27/2023 11:30 AM EDT Nurse Only Cardiac Rehab, [address] [place] [address] Gjsh, Nurse Cardiac Rehab [address] [place] [address], [place] [address] 08/29/2023 11:30 AM EDT Nurse Only Cardiac Rehab, [address] [place] [address] Gjsh, Nurse Cardiac Rehab [address] [place] [address], [place] [address] 09/14/2023 1:20 PM EDT Office Visit Family Practice [facility] [address] [place] [address] Dewayne Pena MD [address] [place] [address] 10/02/2023 1:40 PM EDT Office Visit Rheumatology [address] [place] [address] Timo Guzman MD [facility] [place] [address] 04/15/2024 10:40 AM EDT Office Visit Dermatology [facility] [address] [place] [address] Jonnathan House PA-C [address] [place] [address] Health Maintenance Due Date Last [...] D LEVEL ONCE IN A LIFETIME-USE SMARTSET# [id number] Completed 11/03/2022, 11/20/2018 Influenza Vaccine (FLU shot) [...] this encounter Medical Devices Implanted Type Area News Correspondent Device Identifier Shelf Expiration Date Model / Serial / Lot Cath Thermodilution 6fr - [id number] Implanted:Qty: 1 on 03/07/2023 by Armando Beltran MD at [facility] [employer] KRISTYN [id number] 10/10/2024 [id number] / / [id number] Valve Aortic Transcath Fx 34mm - [id number] Implanted:Qty: 1 on 05/03/2023 by Armando Beltran MD at [facility] [employer] [id number] 08/10/2024 EVOLUTFX- 34 / [id number] / [id number] documented as of this encounter Advance Directives Documents on File Type Date Recorded Patient Self Pay Collector Expl anation POLST 03/06/2022 [place] OR DERS FOR LIFE-SUSTAINING TREATMENT POLST 12/13/2021 [place] OR DERS FOR LIFE-SUSTAINING TREATMENT Latest Code [...] Direct lorenzo occurred with: Patient Care Teams Chief Sustainability Officer Relationship Specialty Start Date End Date Dewayne Pena MD [address] [place] [address] PCP - General Family Medicine 04/30/23 documented as of this encounter
--- OUTSIDE RECORDS SUMMARY | 2023-10-08 23:10 | External Medical Summary | Summary of Care ---
Author Name Unknown Organization [facility] Address [address] [place] [address] Phone [phone] Care Team Providers Care Cardiac Cath Technologist Name Role Phone Dewayne Pena MD Primary Care Provider [phone] Reason for Visit * Reason Comments Cardiac Rehab Encounter Details Date Type Department Care Team (Late st Contact Info) Description 07/09/2023 11:30 AM EST Nurse Only Cardiac Rehab, [facility] [address] [place] [address] [facility], Nurse Cardiac Rehab [address] [place] [address] Cardiac Rehab Allergies No known active allergiesdocumented [...] 2013, Depth unknown, no SLN, Location R yarsanism PSVT (paroxysmal supraventricular tachycardia) 0 12/15/2019 Raynaud's disease without gangrene 06/02/2019 Esophageal dysmotility 05/20/2019 JULIUS (obstructive sleep apnea) 05/20/2019 ILD (interstitial lung disease) 05/20/2019 Coronary artery disease invo lving [place] coronary artery of [place] heart without angina pectoris 03/24/2019 Nonrheumatic mitral [...] 2013, Depth unknown, no SLN, Location R yarsanism (still no path in chart, pt confirmed that he had surgery for melanoma at that site and for BCC prior, see below) BCC R forehead 2008 ([facility]) Prediabetes 02/28/2021 02/01/2023 Overview: Per Prediabetes protocol [...] MCG/0.3 mL, 12 YRS AND ABOVE, IM ([employer] [facility]) 03/27/2023 COVID-19, mRNA, LNP-s, PF, B ooster, [...] PM EST Office Visit Sleep Disorders Ctr [address] [place] [address] Cara Brantley, DO [address] [place] [address] 07/11/2023 11:30 AM EST Nurse Only Cardiac Rehab, [address] [place] [address] Gjsh, Nurse Cardiac Rehab [address] [place] [address], [place] [address] 07/13/2023 11:30 AM EST Nurse Only Cardiac Rehab, [address] [place] [address] Gjsh, Nurse Cardiac Rehab [address] [place] [address], [place] [address] 07/16/2023 11:30 AM EST Nurse Only Cardiac Rehab, [address] [place] [address] Gjsh, Nurse Cardiac Rehab [address] [place] [address], [place] [address] 07/18/2023 11:30 AM EST Nurse Only Cardiac Rehab, [address] [place] [address] Gjsh, Nurse Cardiac Rehab [address] [place] [address], [place] [address] 07/20/2023 11:30 AM EST Nurse Only Cardiac Rehab, [address] [place] [address] Gjsh, Nurse Cardiac Rehab [address] [place] [address], [place] [address] 07/23/2023 11:30 AM EST Nurse Only Cardiac Rehab, [address] [place] [address] Gjsh, Nurse Cardiac Rehab [address] [place] [address], [place] [address] 07/25/2023 11:30 AM EST Nurse Only Cardiac Rehab, [address] [place] [address] Gjsh, Nurse Cardiac Rehab [address] [place] [address] 07/27/2023 11:30 AM EST Nurse Only Cardiac Rehab, [address] [place] [address] Gjsh, Nurse Cardiac Rehab [facility] [place] [address] 07/30/2023 11:30 AM EST Nurse Only Cardiac Rehab, [address] [place] [address] Gjsh, Nurse Cardiac Rehab [address] [place] [address], [place] [address] 08/01/2023 11:30 AM EST Nurse Only Cardiac Rehab, [address] [place] [address] Gjsh, Nurse Cardiac Rehab [address] [place] [address], [place] [address] 08/03/2023 11:30 AM EST Nurse Only Cardiac Rehab, [address] [place] [address] Gjsh, Nurse Cardiac Rehab [address] [place] [address], [place] [address] 08/06/2023 11:30 AM EST Nurse Only Cardiac Rehab, [address] [place] [address] Gjsh, Nurse Cardiac Rehab [address] [place] [address], [place] [address] 08/08/2023 11:30 AM EST Nurse Only Cardiac Rehab, [address] [place] [address] Gjsh, Nurse Cardiac Rehab [address] [place] [address], [place] [address] 08/10/2023 11:30 AM EST Nurse Only Cardiac Rehab, [address] [place] [address] Gjsh, Nurse Cardiac Rehab [address] [place] [address], [place] [address] 08/13/2023 11:30 AM EST Nurse Only Cardiac Rehab, [address] [place] [address] Gjsh, Nurse Cardiac Rehab [address] [place] [address], [place] [address] 08/15/2023 11:30 AM EST Nurse Only Cardiac Rehab, [address] [place] [address] Gjsh, Nurse Cardiac Rehab [address] [place] [address], [place] [address] 08/17/2023 11:30 AM EST Nurse Only Cardiac Rehab, [address] [place] [address] Gjsh, Nurse Cardiac Rehab [address] [place] [address], [place] [address] 08/20/2023 11:30 AM EST Nurse Only Cardiac Rehab, [address] [place] [address] Gjsh, Nurse Cardiac Rehab [address] [place] [address], [place] [address] 08/21/2023 2:15 PM EST Office Visit Cardiology, [facility] 132 [facility] [place] [address] Izzy Patiño, [address] [place] [address] 08/22/2023 11:30 AM EST Nurse Only Cardiac Rehab, [address] [place] [address] Gjsh, Nurse Cardiac Rehab [address] [place] [address] 08/24/2023 11:30 AM EST Nurse Only Cardiac Rehab, [facility] [address] [place] [address] Gjsh, Nurse Cardiac Rehab [address] [place] [address] 08/27/2023 11:30 AM EDT Nurse Only Cardiac Rehab, [facility] [address] [place] [address], [place] [address] Gjsh, Nurse Cardiac Rehab [address] [place] [address] 08/29/2023 11:30 AM EDT Nurse Only Cardiac Rehab, [facility] [address] [place] [address] Gjsh, Nurse Cardiac Rehab [facility] [place] [address] 09/14/2023 1:20 PM EDT Office Visit Family Practice [facility] [address] [facility] [place] [address] Dewayne Pena MD [address] [facility] [place] [address] 10/02/2023 1:40 PM EDT Office Visit Rheumatology [address], [place] [address] Timo Guzman MD [address] [place] [address], [place] [address] 04/15/2024 10:40 AM EDT Office Visit Dermatology [facility] [address] [place] [address] Jonnathan House PA-C [address] [place] [address] Health Maintenance Due Date Last Done [...] D LEVEL ONCE IN A LIFETIME-USE SMARTSET# [id number] Completed 11/03/2022, 11/20/2018 Influenza Vaccine (FLU shot) [...] this encounter Medical Devices Implanted Type Area Assistant Professor Of Radiology Device Identifier Shelf Expiration Date Model / Serial / Lot Cath Thermodilution 6fr - [id number] Implanted:Qty: 1 on 03/07/2023 by Armando Beltran MD at [facility] [employer] [place] [id number] 10/10/2024 [id number] / / [id number] Valve Aortic Transcath Fx 34mm - [id number] Implanted:Qty: 1 on 05/03/2023 by Armando Beltran MD at [facility] [employer] [id number] 08/10/2024 EVOLUTFX- 34 / [id number] / [id number] documented as of this encounter Visit Diagnoses Diagnosis S/P TAVR (transcatheter aortic valve replacement)- Primary Heart valve replaced by other means documented in this encounter Advance Directives Documents on File Type Date Recorded Patient Collaborating Supervising Physician Expl anation POLST 03/06/2022 [place] OR DERS [...] Direct lorenzo occurred with: Patient Care Teams Cardiac Cath Technologist Relationship Specialty Start Date End Date Dewayne Pena MD [address] [place] [address] PCP - General Family Medicine 04/30/23 documented as of this encounter
--- OUTSIDE RECORDS SUMMARY | 2023-10-08 23:10 | External Medical Summary | Summary of Care ---
Author Name Unknown Organization [facility] Address [address] [place] [address] Phone [phone] Care Team Providers Care Rn Mds Coordinator Name Role Phone Dewayne Pena MD Primary Care Provider [phone] Reason for Visit * Reason Comments Cardiac Rehab Encounter Details Date Type Department Care Team (Late st Contact Info) Description 07/06/2023 11:30 AM EST Nurse Only Cardiac Rehab, [facility] [address] [place] [address] [facility], Nurse Cardiac Rehab [address] [place] [address] Cardiac Rehab Allergies No known active allergiesdocumented as of this encounter (statuses as of 07/06/2023) Medications Medication Sig Dispensed Refills Start Date [...] as of this encounter (statuses as of 07/06/2023) Active Problems Problem Noted Date Diagnosed Date [...] disease) 05/20/2019 Coronary artery disease invo lving red [place] coronary artery of red devil heart without angina pectoris 03/24/2019 Nonrheumatic mitral valve stenosis 03/24/2019 H/O Hodgkin's lymphoma 07/05/2018 Acquired hypothyroidism 07/05/2018 documented as of this encounter (statuses as of 07/06/2023) Resolved Problems Problem Noted Date Diagnosed Date [...] prior, see below) BCC R forehead 2008 ([facility]) Prediabetes 02/28/2021 02/01/2023 Overview: Per Prediabetes protocol Moderate protein malnutrition 12/15/2019 03/14/2023 Ankylosing spondylitis of cervical region 12/15/2019 07/07/2022 Moderate aortic stenosis 03/24/2019 H/O atrial fibrillation with out current medication 07/05/2018 03/14/2023 documented as of this encounter (statuses as of 07/06/2023) Immunizations Name Administration Dates Next Due COVID-19 mRNA, LNP-s, No Pre serve, 2-Dose Series (Moderna) 08/21/2020,07/17/2020 COVID-19, MRNA-LNP, 23-24, P F, 30 MCG/0.3 mL, 12 YRS AND ABOVE, IM ([employer]) 03/27/2023 COVID-19, mRNA, LNP-s, PF, B ooster, [...] Sign Reading Time Taken Comments Blood Pressure 138/72 07/06/2023 11:43 AM EST Pulse 94 07/06/2023 11:43 AM EST Temperature - - Respiratory Rate - - Oxygen Saturation - - Inhaled Oxygen Concentration - - Weight 64.4 kg (142 lb) 07/06/2023 11:43 AM EST Height - - Body Mass Index 18.73 06/25/2023 10:12 AM EST documented in this encounter Functional Status Functional Status Response Date of Assess ment Do you have serious difficul ty walking or climbing stairs? (5 years old or older) No 05/04/2023 documented as of this encounter Nursing Notes * Zoraida Del Rosario RN - 07/06/2023 11:43 AM EST Patient tolerated Cardiac Rehab exercise without difficulty. documented in this encounter Plan of Treatment Upcoming Encounters Date Type Department Care Team (Late st Contact Info) Description 07/09/2023 11:30 AM EST Nurse Only Cardiac Rehab, [facility] [address] [facility] [place] [address] [facility], Nurse Cardiac Rehab [address] [place], [place] [address] [address] 07/09/2023 2:20 PM EST Office Visit [facility] [address] [place] [phone] Fercho Cara Stuartt, [address] [place] [address] 07/11/2023 11:30 AM EST Nurse Only Cardiac Rehab, [address] [place] [address] [facility], Nurse Cardiac Rehab [address] [place] [address], [place] [address] 07/13/2023 11:30 AM EST Nurse Only Cardiac Rehab, [address] [place] [address] [facility], Nurse Cardiac Rehab [address] [place] [address], [place] [address] 07/16/2023 11:30 AM EST Nurse Only Cardiac Rehab, [address] [place] [address] [facility], Nurse Cardiac Rehab [address] [place] [address], [place] [address] 07/18/2023 11:30 AM EST Nurse Only Cardiac Rehab, [address] [place] [address] [facility], Nurse Cardiac Rehab [address] [place] [address], [place] [address] 07/20/2023 11:30 AM EST Nurse Only Cardiac Rehab, [address] [place] [address] [facility], Nurse Cardiac Rehab [address] [place] [address], [place] [address] 07/23/2023 11:30 AM EST Nurse Only Cardiac Rehab, [facility] [address] [facility] [place] [address] [facility], Nurse Cardiac Rehab [facility] [address] 07/25/2023 11:30 AM EST Nurse Only Cardiac Rehab, [facility] [address] [place] [address], [place] [address] [facility], Nurse Cardiac Rehab [facility] [address] 07/27/2023 11:30 AM EST Nurse Only Cardiac Rehab, [address] [place] [address] [facility], Nurse Cardiac Rehab [address] [place] [address], [place] [address] 07/30/2023 11:30 AM EST Nurse Only Cardiac Rehab, [address] [place] [address] [facility], Nurse Cardiac Rehab [address] [place] [address], [place] [address] 08/01/2023 11:30 AM EST Nurse Only Cardiac Rehab, [address] [place] [address] [facility], Nurse Cardiac Rehab [address] [place] [address], [place] [address] 08/03/2023 11:30 AM EST Nurse Only Cardiac Rehab, [address] [place] [address] [facility], Nurse Cardiac Rehab [address] [place] [address], [place] [address] 08/06/2023 11:30 AM EST Nurse Only Cardiac Rehab, [address] [place] [address] [facility], Nurse Cardiac Rehab [address] [place] [address], [place] [address] 08/08/2023 11:30 AM EST Nurse Only Cardiac Rehab, [address] [place] [address] [facility], Nurse Cardiac Rehab [address] [place] [address], [place] [address] 08/10/2023 11:30 AM EST Nurse Only Cardiac Rehab, [address] [place] [address] [facility], Nurse Cardiac Rehab [address] [place] [address], [place] [address] 08/13/2023 11:30 AM EST Nurse Only Cardiac Rehab, [address] [place] [address] [facility], Nurse Cardiac Rehab [address] [place] [address], [place] [address] 08/15/2023 11:30 AM EST Nurse Only Cardiac Rehab, [address] [place] [address] [facility], Nurse Cardiac Rehab [address] [place] [address], [place] [address] 08/17/2023 11:30 AM EST Nurse Only Cardiac Rehab, [address] [place] [address] [facility], Nurse Cardiac Rehab [address] [place] [address], [place] [address] 08/20/2023 11:30 AM EST Nurse Only Cardiac Rehab, [address] [place] [address] [facility], Nurse Cardiac Rehab [address] [place] [address], [place] [address] 08/21/2023 2:15 PM EST Office Visit Cardiology, [facility] 132 [facility] [place] [address] Izzy Patiño, [address] [place] [address] 08/22/2023 11:30 AM EST Nurse Only Cardiac Rehab, [address] [place] [address] [facility], Nurse Cardiac Rehab [address] [place] [address], [place] [address] 08/24/2023 11:30 AM EST Nurse Only Cardiac Rehab, [address] [address] [facility], Nurse Cardiac Rehab [address] [place] [address], [place] [address] 08/27/2023 11:30 AM EDT Nurse Only Cardiac Rehab, [address] [address] [facility], Nurse Cardiac Rehab [address] [place] [address] 08/29/2023 11:30 AM EDT Nurse Only Cardiac Rehab, [address] [address] [facility], Nurse Cardiac Rehab [address] [place] [address] 09/14/2023 1:20 PM EDT Office Visit Family Practice [facility] [address] [place] [address] Dewayne Pena MD [address] [place] [address] 10/02/2023 1:40 PM EDT Office Visit Rheumatology [address] [place], [place] [address] Timo Guzman MD [address] [place] [address] [place] [address] 04/15/2024 10:40 AM EDT Office Visit Dermatology [facility] [address] [place] [address] Jonnathan House PA-C [address] [place] [address] Health Maintenance Due Date Last Done Comments [...] D LEVEL ONCE IN A LIFETIME-USE SMARTSET# [id number] Completed 11/03/2022, 11/20/2018 Influenza Vaccine (FLU shot) [...] this encounter Medical Devices Implanted Type Area Belt Builder Helper Device Identifier Shelf Expiration Date Model / Serial / Lot Cath Thermodilution 6fr - [id number] Implanted:Qty: 1 on 03/07/2023 by Armando Beltran MD at [facility] [employer] KRISTYN [id number] 10/10/2024 [id number] / / [id number] Valve Aortic Transcath Fx 34mm - [id number] Implanted:Qty: 1 on 05/03/2023 by Armando Beltran MD at [facility] [employer] [id number] 08/10/2024 [id number]- 34 / [id number] / [id number] documented as of this encounter Visit Diagnoses Diagnosis S/P TAVR (transcatheter aortic valve replacement)- Primary Heart valve replaced by other means documented in this encounter Advance Directives Documents on File Type Date Recorded Patient Surgical Services Coordinator Expl anation POLST 03/06/2022 [place] OR DERS FOR LIFE-SUSTAINING TREATMENT POLST 12/13/2021 [place] OR DERS FOR LIFE-SUSTAINING TREATMENT Latest Code [...] Direct lorenzo occurred with: Patient Care Teams Rn Mds Coordinator Relationship Specialty Start Date End Date Dewayne Pena MD 132 [facility] [place] [address] PCP - General Family Medicine 04/30/23 documented as of this encounter
--- OUTSIDE RECORDS SUMMARY | 2023-10-08 23:11 | External Medical Summary | Summary of Care ---
Author Name Unknown Organization [facility] Address [address] [place] [address] Phone [phone] Care Team Providers Care Dairy Clerk Name Role Phone Dewayne Pena MD Primary Care Provider [phone] Reason for Visit * Reason Comments Cardiac Rehab * Evaluate & Treat - Unlimited Visits (Within 30 days (routine)) - Authorized Specialty Diagnoses / Procedures Referred By Contac t Referred To Contact CARDIAC REHAB / Cardiology Diagnoses S/P TAVR (transcatheter aortic valve replacement) Status post cardiac surgery Camille Vieyra DO [address] [place] [address] Referral ID Status Reason Start Date Expiration Date Visits Requested Visits Authorized [id number] Authorized Specialty Services Required 3 [phone] Encounter Details Date Type Department Care Team (Late st Contact Info) Description 06/13/2023 11:30 AM EST Nurse Only Cardiac Rehab, [place] [address] [facility], Nurse Cardiac Rehab [address] [place] [address] Cardiac Rehab Allergies No known active allergiesdocumented as of this encounter (statuses as of 06/13/2023) Medications Medication Sig Dispensed Refills Start Date [...] other meds) 90 Tablet 3 03/16/2023 Active documented as of this encounter (statuses as of 06/13/2023) Active Problems Problem Noted Date Diagnosed Date [...] disease) 05/20/2019 Coronary artery disease invo lving [place] coronary artery of [place] heart without angina pectoris 03/24/2019 Nonrheumatic mitral valve stenosis 03/24/2019 H/O Hodgkin's lymphoma 07/05/2018 Acquired hypothyroidism 07/05/2018 documented as of this encounter (statuses as of 06/13/2023) Resolved Problems Problem Noted Date Diagnosed Date [...] see below) BCC R forehead 2008 ([facility]) Prediabetes 02/28/2021 02/01/2023 Overview: Per Prediabetes protocol Moderate protein malnutrition 12/15/2019 03/14/2023 Ankylosing spondylitis of cervical region 12/15/2019 07/07/2022 Moderate aortic stenosis 03/24/2019 H/O atrial fibrillation with out current medication 07/05/2018 03/14/2023 documented as of this encounter (statuses as of 06/13/2023) Immunizations Name Administration Dates Next Due COVID-19 mRNA, LNP-s, No Pre serve, 2-Dose Series (Moderna) 08/21/2020,07/17/2020 COVID-19, MRNA-LNP, 23-24, P F, 30 MCG/0.3 mL, 12 YRS AND ABOVE, IM ([employer] 03/27/2023 COVID-19, mRNA, LNP-s, PF, B ooster, [...] Reading Time Taken Comments Blood Pressure 122/62 06/13/2023 11:55 AM EST Pulse 106 06/13/2023 11:55 AM EST Temperature - - Respiratory Rate - - Oxygen Saturation - - Inhaled Oxygen Concentration - - Weight 64 kg (141 lb 3.2 oz) 06/13/2023 11:55 AM EST Height - - Body Mass Index 18.63 05/14/2023 10:52 AM EST documented in this encounter Functional Status Functional Status Response Date of Assess ment Do you have serious difficul ty walking or climbing stairs? (5 years old or older) No 05/04/2023 documented as of this encounter Nursing Notes * Paz Johns RN - 06/13/2023 11:56 AM EST Pt participated in Cardiac Rehab today with no complications. Exercise regimen per protocol. documented in this encounter Plan of Treatment Upcoming Encounters Date Type Department Care Team (Late st Contact Info) Description 06/15/2023 11:30 AM EST Nurse Only Cardiac Rehab, [address] [address] [facility], Nurse Cardiac Rehab [address] [place] [address] 06/15/2023 1:30 PM EST Laboratory Laboratory, [facility] [phone] [facility] [place] [address] 06/15/2023 2:00 PM EST Office Visit Cardiology, [facility] 132 [facility] [place] [address] Blessing Coronel CRNP 132 [facility] [address] 06/20/2023 11:30 AM EST Nurse Only Cardiac Rehab, [address] [address] [facility], Nurse Cardiac Rehab [address] [place] [address] 06/22/2023 11:30 AM EST Nurse Only Cardiac Rehab, [address] [address] [facility], Nurse Cardiac Rehab [address] [place] [address] 06/25/2023 10:20 AM EST Office Visit Pulmonary Medicine, [facility] 132 [facility] [place] [address] Juan Pablo Marsh MD [address] [place] [address] 06/25/2023 11:30 AM EST Nurse Only Cardiac Rehab, [address] [place] [address] [facility], Nurse Cardiac Rehab [address] [place] [address], [place] [address] 06/27/2023 11:30 AM EST Nurse Only Cardiac Rehab, [address] [place] [address] [facility], Nurse Cardiac Rehab [address] [place] [address], [place] [address] 06/29/2023 11:30 AM EST Nurse Only Cardiac Rehab, [address] [place] [address] [facility], Nurse Cardiac Rehab [address] [place] [address], [place] [address] 07/02/2023 7:15 AM EST Cardiac Studies Cardiac Studies, [facility] 132 [facility] [place] [address] 07/02/2023 11:30 AM EST Nurse Only Cardiac Rehab, [address] [place] [address] [facility], Nurse Cardiac Rehab [address] [place] [address], [place] [address] 07/04/2023 11:30 AM EST Nurse Only Cardiac Rehab, [address] [place] [address] [facility], Nurse Cardiac Rehab [address] [place] [address], [place] [address] 07/06/2023 11:30 AM EST Nurse Only Cardiac Rehab, [address] [place] [address] [facility], Nurse Cardiac Rehab [address] [place] [address], [place] [address] 07/09/2023 11:30 AM EST Nurse Only Cardiac Rehab, [address] [place] [address] [facility], Nurse Cardiac Rehab [address] [place] [address], [place] [address] 07/09/2023 2:20 PM EST Office Visit Sleep Disorders [facility] [address] [place] [phone] Cara Brantley, [address] [place] [address] 07/11/2023 11:30 AM EST Nurse Only Cardiac Rehab, [address] [place] [address] [facility], Nurse Cardiac Rehab [address] [place] [address], [place] [address] 07/13/2023 11:30 AM EST Nurse Only Cardiac Rehab, [address] [place] [address] [facility], Nurse Cardiac Rehab [address] [place] [address], [place] [address] 07/16/2023 11:30 AM EST Nurse Only Cardiac Rehab, [address] [place] [address] [facility], Nurse Cardiac Rehab [address] [place] [address], [place] [address] 07/18/2023 11:30 AM EST Nurse Only Cardiac Rehab, [address] [place] [address] [facility], Nurse Cardiac Rehab [address] [place] [address], [place] [address] 07/20/2023 11:30 AM EST Nurse Only Cardiac Rehab, [address] [place] [address] [facility], Nurse Cardiac Rehab [address] [place] [address] 07/23/2023 11:30 AM EST Nurse Only Cardiac Rehab, [facility] [address] [place] [address] [facility], Nurse Cardiac Rehab [address] [place] [address], [place] [address] 07/25/2023 11:30 AM EST Nurse Only Cardiac Rehab, [address] [place] [address] [facility], Nurse Cardiac Rehab [address] [place] [address], [place] [address] 07/27/2023 11:30 AM EST Nurse Only Cardiac Rehab, [address] [place] [address] [facility], Nurse Cardiac Rehab [address] [place] [address], [place] [address] 07/30/2023 11:30 AM EST Nurse Only Cardiac Rehab, [address] [place] [address] [facility], Nurse Cardiac Rehab [address] [place] [address], [place] [address] 08/01/2023 11:30 AM EST Nurse Only Cardiac Rehab, [address] [place] [address] [facility], Nurse Cardiac Rehab [address] [place] [address], [place] [address] 08/03/2023 11:30 AM EST Nurse Only Cardiac Rehab, [address] [place] [address] [facility], Nurse Cardiac Rehab [address] [place] [address], [place] [address] 08/06/2023 11:30 AM EST Nurse Only Cardiac Rehab, [facility] 10[address] [place] [address] [facility], Nurse Cardiac Rehab [address] [place] [address] 08/08/2023 11:30 AM EST Nurse Only Cardiac Rehab, [facility] [address] [place] [address], [place] [address] [facility], Nurse Cardiac Rehab [facility]0 [place] [address] 08/10/2023 11:30 AM EST Nurse Only Cardiac Rehab, [address] [place] [address] [facility], Nurse Cardiac Rehab [address] [place] [address], [place] [address] 08/13/2023 11:30 AM EST Nurse Only Cardiac Rehab, [place] [address] [place] [address] G[facility], Nurse Cardiac Rehab [address] [place] [address], [place] [address] 08/15/2023 11:30 AM EST Nurse Only Cardiac Rehab, [place] [address] [place] [address] G[facility], Nurse Cardiac Rehab [address] [place] [address], [place] [address] 08/17/2023 11:30 AM EST Nurse Only Cardiac Rehab, [address] [place] [address] [facility], Nurse Cardiac Rehab [address] [place] [address], [place] [address] 08/20/2023 11:30 AM EST Nurse Only Cardiac Rehab, [facility] [address] [place] [address], [place] [address] [facility], Nurse Cardiac Rehab [address] [place] [address], [place] [address] 08/22/2023 11:30 AM EST Nurse Only Cardiac Rehab, [facility] [address] [place] [address] Gj, Nurse Cardiac Rehab [address] [place] [address] 08/24/2023 11:30 AM EST Nurse Only Cardiac Rehab, [address] [address] Gj, Nurse Cardiac Rehab [address] [place] [address] 08/27/2023 11:30 AM EDT Nurse Only Cardiac Rehab, [address] [address] [facility], Nurse Cardiac Rehab [address] [place] [address] 09/14/2023 1:20 PM EDT Office Visit Family Practice [facility] 132 [facility] [place] [address] Dewayne Pena MD 132 [facility] [place] [address] 10/02/2023 1:40 PM EDT Office Visit Rheumatology [address] [place] [address] Timo Guzman MD [address] [place] [address] 04/15/2024 10:40 AM EDT Office Visit Dermatology [facility] [address] [place] [address] Jonnathan House PA-C [address] [place], [place] [id number] Health Maintenance Due Date Last Done Comments [...] D LEVEL ONCE IN A LIFETIME-USE SMARTSET# [id number] Completed 11/03/2022, 11/20/2018 Influenza Vaccine (FLU shot) [...] this encounter Medical Devices Implanted Type Area Roping Tender Device Identifier Shelf Expiration Date Model / Serial / Lot Cath Thermodilution 6fr - [id number] Implanted:Qty: 1 on 03/07/2023 by Armando Beltran MD at [facility] [employer] KRISTYN [id number] 10/10/2024 [id number] / / [id number] Valve Aortic Transcath Fx 34mm - [id number] Implanted:Qty: 1 on 05/03/2023 by Armando Beltran MD at [facility] [employer] [id number] 08/10/2024 [id number]- 34 / [id number] / [id number] documented as of this encounter Visit Diagnoses Diagnosis S/P TAVR (transcatheter aortic valve replacement)- Primary Heart valve replaced by other means documented in this encounter Advance Directives Documents on File Type Date Recorded 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
--- OUTSIDE RECORDS SUMMARY | 2023-10-08 23:11 | External Medical Summary | Summary of Care ---
Author Name Unknown Organization [facility] Address [address] [place] [address] Phone [phone] Care Team Providers Care Curriculum Specialist Name Role Phone Dewayne Pena MD Primary Care Provider [phone] Reason for Referral * Precert (Within 10 days (routine)) - Authorized Specialty Diagnoses / Procedures Referred By Contac t Referred To Contact Cardiac Studies Diagnoses Nonrheumatic aortic valve stenosis S/P TAVR (transcatheter aortic valve replacement) Mobitz type 2 second degree AV block LBBB (left bundle branch block) PAF (paroxysmal atrial fibrillation) (HCC) Atrial flutter, unspecified type (HCC) Nonobstructive atherosclerosis of coronary artery Procedures ECHO, COMPLETE (2D), TRANS-THORACIC Blessing Coronel CRNP [id number] [place] [address] Referral ID Status Reason Start Date Expiration Date V isits Requested Visits Authorized [id number] Authorized Precert 05/19/2024 999 999 * Evaluate & Treat - Unlimited Visits [...] coronary artery Blessing Coronel CRNP [address] [place] [address] Referral ID Status Reason Start Date Expiration Date Visits Requested Visits Authorized [id number] Authorized Specialty Services Required 3 999 999 Question Answer Referral Priority Within 10 days (routine) Where should this appointment be scheduled? 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 S/p TAVR Reason for Visit * Reason Comments Follow Up Encounter Details Date Type Department Care Team (Latest Contact Info) Description 06/15/2023 2:00 PM EST Office Visit Cardiology, [facility] [address] [place] [address] Blessing Coronel CRNP [address] [place] [address] Nonrheumatic aortic valve stenosis*; S/P TAVR (transcatheter aortic valve replacement); LBBB (left bundle branch block); Mobitz type 2 second degree AV block; PAF (paroxysmal atrial fibrillation) (HCC); Atrial flutter, unspecified type (HCC); Nonobstructive atherosclerosis of coronary artery Allergies No known active allergiesdocumented as of this encounter (statuses as of 06/15/2023) Medications Medication Sig Dispensed Refills Start Date [...] dental work 4 Capsule 4 06/15/2023 Active documented as of this encounter (statuses as of 06/15/2023) Active Problems Problem Noted Date Diagnosed Date [...] disease) 05/20/2019 Coronary artery disease invo lving poarch coronary artery of poarch heart without angina pectoris 03/24/2019 Nonrheumatic mitral valve stenosis 03/24/2019 H/O Hodgkin's lymphoma 07/05/2018 Acquired hypothyroidism 07/05/2018 documented as of this encounter (statuses as of 06/15/2023) Resolved Problems Problem Noted Date Diagnosed Date [...] see below) BCC R forehead 2008 ([facility]) Prediabetes 02/28/2021 02/01/2023 Overview: Per Prediabetes protocol Moderate protein malnutrition 12/15/2019 03/14/2023 Ankylosing spondylitis of cervical region 12/15/2019 07/07/2022 Moderate aortic stenosis 03/24/2019 H/O atrial fibrillation with out current medication 07/05/2018 03/14/2023 documented as of this encounter (statuses as of 06/15/2023) Immunizations Name Administration Dates Next Due COVID-19 mRNA, LNP-s, No Pre serve, 2-Dose Series (Moderna) 08/21/2020,07/17/2020 COVID-19, MRNA-LNP, 23-24, P F, 30 MCG/0.3 mL, 12 YRS AND ABOVE, IM ([facility]) 03/27/2023 COVID-19, mRNA, LNP-s, PF, B ooster, 100mcg/0.5mg (Moderna) 10/13/2021,04/13/2021 Covid-19, Mrna, Lnp-s, Pf, B ivalent, 30 Mcg, IM, 12 yrs and above ([employer]) 11/09/2022,03/10/2022 PPD 12/29/2020,12/24/2018,12/03/2018 Pneumococcal Conjugate Vacc, 13 [...] 10 Q uit: 06/18/1977 Smokeless Tobacco: Never Tobacco Cessation:Counseling Given: [...] Sign Reading Time Taken Comments Blood Pressure 140/78 06/15/2023 1:29 PM EST Pulse 102 06/15/2023 1:29 PM EST Temperature - - Respiratory Rate - - Oxygen Saturation 99% 06/15/2023 1:29 PM EST Inhaled Oxygen Concentration - - Weight 64 kg (141 lb) 06/15/2023 1:29 PM EST Height - - Body Mass Index 18.6 05/14/2023 10:52 AM EST documented in this encounter Functional Status Functional Status Response Date of Assess ment Do you have serious difficul ty walking or climbing stairs? (5 years old or older) No 05/04/2023 documented as of this encounter Progress Notes * Blessing Coronel CRNP - 06/15/2023 2:00 PM EST Images from the original note were not included. Valve Clinic Cardiology Outpatient Clinic Note 06/15/2023 Patient disposition: 1 month post TAVR Primary [employer] Dr. Graves Past Medical History: H/o severe aortic stenosis status post TAVR (# 34mm Medtronic Evolut FX Aortic Valve), 05/03/2023 Postop complicated by left bundle branch block which resolved on its own. No permanent pacemaker placed. History of atrial flutter status post tricuspid isthmus ablation, 2013 Symptomatic atrial fibrillation status post PVI, 05/2017 Mild nonobstructive CAD-- 40% pLAD stenosis and 40% RCA per pre TAVR cath 02/2023 Hodgkin's lymphoma for which he was treated with splenectomy and radiation therapy at the age of 27 Enlarged aortic root, 4.1 cm Severe MR confirmed by HANNAH 02/2023 Interstitial lung disease Positive NEREYDA JULIUS, on CPAP Esophageal dysmotility Hypothyroidism Prediabetes HPI Very pleasant 72-year-old male presenting to the valve clinic today in follow-up after recent TAVR 1 month ago. Hospital course copied below. HOSPITAL COURSE (focused): Guido Daley is a 72 yo M with CAD, PSVT, ILD, hypothyroidism, JULIUS, and Raynaud's who was admitted to [facility] for post-procedural monitoring s/p TAVR (# 34mm Medtronic Evolut FX Aortic Valve) for severe symptomatic aortic stenosis. He developed a LBBB intra-procedurally and required temporary pacemaker wire placement. His LBBB subsequently resolved and the temporary pacing wire was removed. He was additionally noted to have at least moderate paravalvular AI post-procedurally for which he was monitored an additional day. The remainder of his hospital course was uncomplicated though patient did develop a 1st degree AV block with a ME interval of 286. As such metoprolol was held on discharge and patient was ordered a Continuous equipment monitor phototypesetting (Zio patch AT) to be picked up OP on 05/07.He was discharged home on 05/05/2023 with close PCP, Cardiology, and Electrophysiology follow-up. Operations & Procedures: TAVR (# 34mm Medtronic Evolut FX Aortic Valve) Phillips Interpretation (focused): Procedure: - Successful transfemoral implantation of a # 34mm Medtronic Evolut FX Aortic Valve (post dilated with 28 mm ZMED II balloon) - Placement of temporary venous pacemaker - Aortic valvuloplasty - Arterial access site closure with dual Perclose Proglide devices - Selective angiography of the right common iliac artery Patient wore a live Zio monitor which showed primarily sinus rhythm with an average heart rate in the mid 90s. First-degree AV block was noted as well as an IVCD. He would 20 episodes of SVT with thelongest lasting 13 seconds. He had multiple episodes of nonconducted P-waves consistent with Mobitztype 2 AV block. Occasional PACs and frequent PVCs. Today the patient presents to the office feeling well. Notes a significant improvement in his overall functional capacity over the last month. Denies any exertional chest pain. Shortness of breath improved but he does have underlying interstitial lung disease. No palpitations. Denies lightheadedness or dizziness. No orthopnea or PND. No lower extremity edema. No fever, chills, cough, hematochezia, melena, or hemoptysis. EKG today in office showed sinus rhythm with a first-degree AV block and occasional PVCs. Heart rates in the mid 90s. He states he is compliant with all medications, and offers no side effects. Wears a CPAP at night. Current Outpatient Medications Medication Sig Dispense Refill Acetylcysteine (NAC 600) 600 MG CAPS Take 1 Tab by mouth 2 times a day. 60 Cap Cholecalciferol 25 MCG (1000 UT) Oral Capsule Take 1 Capsule by mouth in the morning. Respiratory Therapy Supplies Device Use as directed. AutoPAP 5-20 cm CPAP every night at bedtime . Auto [...] to any dental work 4 Capsule 4 No current facility-administered medications for this visit. Past Medical History: Diagnosis Date Atrial fibrillation (HCC) BMI less than 19,adult 03/16/2023 Bronchiectasis (HCC) Cardiac arrhythmia Coronary artery disease involving poarch coronary artery of poarch heart without angina pectoris 03/24/2019 Hodgkin's disease (HCC) 1976 s/p radiation Hx of melanoma of skin 03/24/2021 Hx MM date 2013, Depth unknown, no SLN, Location R holiness ILD (interstitial lung disease) (HCC) Moderate aortic stenosis 03/24/2019 Nonrheumatic mitral valve stenosis 03/24/2019 JULIUS (obstructive sleep apnea) Pulmonary arterial hypertension (HCC) Raynaud's disease without gangrene 06/02/2019 Sleep apnea, obstructive Past Surgical History: Procedure Laterality Date ANESTH, CARDIAC ELECTROPHYS 2015 CARDIAC CATH-CARDIOLOGY ONLY approx 2013 CARDIOVERSION,ELECTIVE INTERNA 2011 CORONARY ANGIOGRAPHY W/LEFT HEART CATH Right 03/07/2023 CORONARY ANGIOGRAPHY W/LEFT HEART CATH performed by Armando Beltran MD at [facility] EGD, FLEXIBLE, DIAGNOSTIC 05/21/2019 reflux / [facility] MUSCLE BIOPSY, DEEP Left 04/11/2022 BIOPSY MUSCLE DEEP performed by Sadiq Kennedy MD at OR [facility] REMOVAL OF SPLEEN, TOTAL 1978 Due to Hodgkin's disease REPLACE AORTIC VALVE, PERCUTANEOUS FEMORAL Bilateral 05/03/2023 REPLACE AORTIC VALVE, PERCUTANEOUS FEMORAL performed by Armando Beltran MD at [facility] REPLACE AORTIC VALVE, PERCUTANEOUS FEMORAL Bilateral 05/03/2023 REPLACE AORTIC VALVE, PERCUTANEOUS FEMORAL performed by Cisco Herrera MD, PhD at [facility] TOTAL HIP REPLACEMENT & PROSTHESIS Left 11/28/2021 Social History Tobacco Use Smoking status: Former Packs/day: 1.00 Years: 10.00 Additional pack years: 0.00 Total pack years: 10.00 Types: Cigarettes Quit date: 06/18/1977 Years since quittin.0 Smokeless tobacco: Never Vaping Use Vaping Use: Never used Substance Use Topics Alcohol use: No Drug use: No Review of patient's allergies indicates: No Known Allergies Review of Systems: See HPI for pertinent positives. All others negative, other than those noted in HPI. Physical Exam BP 140/78 | Pulse 102 | Wt 64 kg (141 lb) | SpO2 99% | BMI 18.60 kg/m | BSA 1.82 m General: No acute distress. A+Ox3. HEENT: Normocephalic. Atraumatic. Conjunctiva and sclera clear. NECK: No carotid bruits. No JVD. Carotid upstrokes are brisk. Heart: RRR. S1 and S2 noted. +1/6 systolic murmur Lungs: Fibrotic lungs sounds auscultated. Abdomen: Normal bowel sounds. Soft. Nontender. No masses or organomegaly. No abdominal bruits. Extremities: No edema. No clubbing or cyanosis. Pulses: radial=2/4, posterior tibial=2/4, dorsalis pedis = 2/4. NEURO: No focal deficits. PSYCH: Normal. Lab data/imaging study review: TTE (05/04/2023): POD 1 TAVR The examination is adequate to evaluate the referral indication. No LV segmental wall motion abnormalities. The left ventricular systolic function is normal. The qualitative LV ejection fraction is 55-59% (normal). The right ventricular systolic function is qualitatively normal. The patient is status post TAVR with Evolut Pro prosthetic valve. Aortic valve prosthesis stenosis is absent. The peak aortic valve velocity throught the TAVR is 1.3 m/sec. The mean systolic gradientthrough the TAVR is 2.9 mmHg. There is paravalvular AI which is at least moderate ,possibly severe.There is a diastolic flow reversal in the descending thoracic aorta. There is an eccentric jet of mo derate mitral regurgitaiton. Moderate to severe tricuspid regurgitation is present. Indeterminate IVC size and collapsability. Right atrial pressure estimated at 8 mmHg. The estimated pulmonary artery systolic pressure is 52mm Hg. Cath at [facility]-- PRE TAVR 03/07/2023 HANNAH at [facility] with Dr. Graves Impression/Plan: 1. Nonrheumatic aortic valve stenosis 2. S/P TAVR (transcatheter aortic valve replacement) -H/o severe aortic stenosis status post TAVR (# 34mm Medtronic Evolut FX Aortic Valve), 05/03/2023 -NYHA class 1 1. No routine dental work should be completed in the first 6 months after TAVR. However if an acuteissue arises, patient is to alert the valve team. Antibiotics are needed for all dental work: Amoxicillin 2g- Take 4 capsules 1 hour prior to any dental work 2. Slowly increase activity- recommend cardiac rehab, patient has already started. 3. Aspirin 81 mg dialy continued indefinitely 4. 1 month post TAVR echo scheduled for 07/02/2023 5. 1 year follow up with Dr Beltran at with echo prior/same day. 3. LBBB (left bundle branch block) 4. Mobitz type 2 second degree AV block Postop complicated by left bundle branch block which resolved on its own. -Zio 04/2023 revealing intermittent second-degree AV block Mobitz type 2 1. EP referral placed for evaluation of potential need for PPM. Ultimately, would like to restart beta-shawna therapy if possible due to history of PAF and frequent PVCs/PACs. 5. PAF (paroxysmal atrial fibrillation) (HCC) 6. Atrial flutter, unspecified type (HCC) -History of atrial flutter status post tricuspid isthmus ablation, 2013 -Symptomatic atrial fibrillation status post PVI, 05/2017 -No longer on AC 7. Nonobstructive atherosclerosis of coronary artery Mild nonobstructive CAD-- 40% pLAD stenosis and 40% RCA per pre TAVR cath 02/2023 1. Continue ASA 81 mg daily. The patient agrees to the above plan and will call with additional questions or concerns. ER with all emergencies advised. Follow-up: Return in about 1 year (around 06/15/2024). | Check-out note: 1 [address] follow up with Dr Beltran at with echo prior/same day. KEEP echo appt 07/02. 6 month follow up with ARMIN (general cards). Schedule EP appt. I spent a total of 40 minutes on the date of service in preparation, delivery, and documentation ofthe care provided to Guido Daley excluding any time spent in the performance of separately billed services. ELOY Adkins, Department of Cardiology This chart was completed in part utilizing [employer] Speech Voice Recognition Software. Grammatical errors, random word insertions, prounoun errors, and incomplete sentences are an occasional consequence of this system due to software limitations, ambient noise, and hardware issues. Any formal questions or concerns about the content, text, or information contained within the body of this dictation should be directly addressed to the provider for clarification. documented in this encounter Nursing Notes * Norma Rios CMA - 06/15/2023 1:29 PM EST Examination Room: 4 Name: Guido Daley Date of : (1950) Reason for Visit: 1m Interim Hospitalization(s):S/P TAVR Problems/Concerns: DENIED Chest Pain/SOB: DENIED CHEST PAIN. SOB FROM INTERSTITIAL LUNG DISEASE My [facility] is a way you can talk to your provider online through e-mail. Would you like to sign up? I can activate it for you? ALREADY ACTIVE Patient was instructed to not get up on the exam table until directed and assisted by their provider; patient is to remain seated in the chair/ wheelchair/ exam table for fall prevention and safety reasons. Patient is aware to have assistance to step down off exam table with personnel. Patient voiced full comprehension of instructions. documented in this encounter Plan of Treatment Upcoming Encounters Date Type Department Care Team (Late st Contact Info) Description 06/20/2023 11:30 AM EST Nurse Only Cardiac Rehab, [address] [address] [facility], Nurse Cardiac Rehab [address] [place] [address] 06/22/2023 11:30 AM EST Nurse Only Cardiac Rehab, [address] [address] [facility], Nurse Cardiac Rehab [address] [place] [address] 06/25/2023 10:20 AM EST Office Visit Pulmonary Medicine, [facility] [address] [facility] [place] [address] Juan Pablo Marsh MD [address] [facility] [place] [address] 06/27/2023 11:30 AM EST Nurse Only Cardiac Rehab, [address] [address] [facility], Nurse Cardiac Rehab [address] [place] [address] 06/29/2023 11:30 AM EST Nurse Only Cardiac Rehab, [address] [address] [facility], Nurse Cardiac Rehab [address] [place] [address] 07/02/2023 7:15 AM EST Cardiac Studies Cardiac Studies, [facility] [address] [facility] [place] [address] 07/02/2023 11:30 AM EST Nurse Only Cardiac Rehab, [address] [place] [address] G[facility], Nurse Cardiac Rehab [address] [place] [address], [place] [address] 07/04/2023 11:30 AM EST Nurse Only Cardiac Rehab, [address] [place] [address] Gj[facility], Nurse Cardiac Rehab [address] [place] [address], [place] [address] 07/06/2023 11:30 AM EST Nurse Only Cardiac Rehab, [address] [place] [address] Gjsh, Nurse Cardiac Rehab [address] [place] [address], [place] [address] 07/09/2023 11:30 AM EST Nurse Only Cardiac Rehab, [address] [place] [address] Gjsh, Nurse Cardiac Rehab [address] [place] [address] 07/09/2023 2:20 PM EST Office Visit Sleep Disorders Ctr [facility] 132 [facility] [place] [phone] Cara Brantley, [address] [facility] [place] [address] 07/11/2023 11:30 AM EST Nurse Only Cardiac Rehab, [address] [place] [address] Gjsh, Nurse Cardiac Rehab [address] [place] [address], [place] [address] 07/13/2023 11:30 AM EST Nurse Only Cardiac Rehab, [address] [place] [address] Gjsh, Nurse Cardiac Rehab [address] [place] [address], [place] [address] 07/16/2023 11:30 AM EST Nurse Only Cardiac Rehab, [facility] [address] [place] [address], [place] [address] Gjsh, Nurse Cardiac Rehab [address] [place] [address], [place] [address] 07/18/2023 11:30 AM EST Nurse Only Cardiac Rehab, [address] [place] [address] Gjsh, Nurse Cardiac Rehab [address] [place] [address], [place] [address] 07/20/2023 11:30 AM EST Nurse Only Cardiac Rehab, [address] [place] [address] Gjsh, Nurse Cardiac Rehab [address] [place] [address], [place] [address] 07/23/2023 11:30 AM EST Nurse Only Cardiac Rehab, [address] [place] [address] Gjsh, Nurse Cardiac Rehab [address] [place] [address], [place] [address] 07/25/2023 11:30 AM EST Nurse Only Cardiac Rehab, [address] [place] [address] [facility], Nurse Cardiac Rehab [address] [place] [address], [place] [address] 07/27/2023 11:30 AM EST Nurse Only Cardiac Rehab, [address] [place] [address] G[facility], Nurse Cardiac Rehab [address] [place] [address], [place] [address] 07/30/2023 11:30 AM EST Nurse Only Cardiac Rehab, [facility] [address] [place] [address], [place] [address] Gjsh, Nurse Cardiac Rehab [address] [facility] [place] [address] 08/01/2023 11:30 AM EST Nurse Only Cardiac Rehab, [facility] [address] [place] [address], [place] [address] Gjsh, Nurse Cardiac Rehab [address] [facility] [place] [address] 08/03/2023 11:30 AM EST Nurse Only Cardiac Rehab, [address] [place] [address] Gjsh, Nurse Cardiac Rehab [address] [place] [address], [place] [address] 08/06/2023 11:30 AM EST Nurse Only Cardiac Rehab, [facility] [address] [place] [address] Gjsh, Nurse Cardiac Rehab [address] [place] [address], [place] [address] 08/08/2023 11:30 AM EST Nurse Only Cardiac Rehab, [place] [address] [facility] [place] [address] Gjsh, Nurse Cardiac Rehab [address] [place] [address], [place] [address] 08/10/2023 11:30 AM EST Nurse Only Cardiac Rehab, [address] [place] [address] Gjsh, Nurse Cardiac Rehab [address] [place] [address], [place] [address] 08/13/2023 11:30 AM EST Nurse Only Cardiac Rehab, [address] [place] [address] Gjsh, Nurse Cardiac Rehab [address] [place] [address], [place] [address] 08/15/2023 11:30 AM EST Nurse Only Cardiac Rehab, [address] [place] [address] Gjsh, Nurse Cardiac Rehab [address] [place] [address], [place] [address] 08/17/2023 11:30 AM EST Nurse Only Cardiac Rehab, [address] [place] [address] Gjsh, Nurse Cardiac Rehab [address] [place] [address], [place] [address] 08/20/2023 11:30 AM EST Nurse Only Cardiac Rehab, [address] [place] [address] Gjsh, Nurse Cardiac Rehab [address] [place] [address], [place] [address] 08/21/2023 2:15 PM EST Office Visit Cardiology, [facility] [address] [facility] [place] [address] Izzy Patiño, [address] [address] 08/22/2023 11:30 AM EST Nurse Only Cardiac Rehab, [address], [place] [address] Gj[facility], Nurse Cardiac Rehab [address] [place] [address], [place] [address] 08/24/2023 11:30 AM EST Nurse Only Cardiac Rehab, [address], [place] [address] Gjsh, Nurse Cardiac Rehab [address] [place] [address], [place] [address] 08/27/2023 11:30 AM EDT Nurse Only Cardiac Rehab, [address] [place] [address] [facility], Nurse Cardiac Rehab [address] [facility] [place] [address] 08/29/2023 11:30 AM EDT Nurse Only Cardiac Rehab, Frannie Whitefield [address] [place] [address] [facility], Nurse Cardiac Rehab [address] [place] [address] 09/14/2023 1:20 PM EDT Office Visit Family [facility] [address] [place] [address] Dewayne Pena MD [address] [facility] [place] [address] 10/02/2023 1:40 PM EDT Office Visit Rheumatology [address] [place] [address] Timo Guzman MD [address] [place] [address] [place] [address] 04/15/2024 10:40 AM EDT Office Visit Dermatology [facility] [address] [place] [address] Jonnathan House PA-C [address] [place] [address] Scheduled Orders Name Type Priority Associated Diagnoses Orde r Schedule EKG EKG Routine Nonrheumatic aortic valve stenosis S/P TAVR (transcatheter aortic valve replacement) Mobitz type 2 second degree AV block LBBB (left bundle branch block) PAF (paroxysmal atrial fibrillation) (HCC) Atrial flutter, unspecified type (HCC) Nonobstructive atherosclerosis of coronary artery Ordered: 06/15/2023 ECHO, COMPLETE (2D), TRANS-THORACIC Echocardiology Routine Nonrheumatic aortic valve stenosis S/P TAVR (transcatheter aortic valve replacement) Mobitz type 2 second degree AV block LBBB (left bundle branch block) PAF (paroxysmal atrial fibrillation) (HCC) Atrial flutter, unspecified type (HCC) Nonobstructive atherosclerosis of coronary artery Expected: 05/19/2024, Expires: 07/16/2025 Scheduled Referrals Name Type Priority Associated Diagnoses Orde r Schedule ELECTROPHYSIOLOGY REFERRAL OP Referral Within 10 days (routine) Nonrheumatic aortic valve stenosis S/P TAVR (transcatheter aortic valve replacement) Mobitz type 2 second degree AV block LBBB (left bundle branch block) PAF (paroxysmal atrial fibrillation) (HCC) Atrial flutter, unspecified type (HCC) Nonobstructive atherosclerosis of coronary artery Ordered: 06/15/2023 Health Maintenance Due Date Last Done Comments [...] D LEVEL ONCE IN A LIFETIME-USE SMARTSET# [id number] Completed 11/03/2022, 11/20/2018 Influenza Vaccine (FLU shot) [...] this encounter Medical Devices Implanted Type Area Real Estate Intern Device Identifier Shelf Expiration Date Model / Serial / Lot Cath Thermodilution 6fr - [id number] Implanted:Qty: 1 on 03/07/2023 by Armando Beltran MD at [facility] [employer] [id number] 10/10/2024 [id number] / / [id number] Valve Aortic Transcath Fx 34mm - [id number] Implanted:Qty: 1 on 05/03/2023 by Armando Beltran MD at [facility] [employer] [id number] 08/10/2024 [id number] / [id number] / [id number] documented as of this encounter Visit Diagnoses Diagnosis Nonrheumatic aortic valve stenosis- Primary Aortic valve disorders S/P TAVR (transcatheter aortic valve replacement) Heart valve replaced by other means LBBB (left bundle branch block) Other left bundle branch block Mobitz type 2 second degree AV block Mobitz (type) II atrioventricular block PAF (paroxysmal atrial fibrillation) (HCC) Atrial fibrillation Atrial flutter, unspecified type (HCC) Nonobstructive atherosclerosis of coronary artery documented in this encounter Advance Directives Documents on File Type Date Recorded Patient Linoleum Tile Layer Expl anation POLST 03/06/2022 [place] [facility] FOR LIFE-SUSTAINING TREATMENT POLST 12/13/2021 [place] [facility] FOR LIFE-SUSTAINING TREATMENT Latest Code [...] Direct lorenzo occurred with: Patient Care Teams Curriculum Specialist Relationship Specialty Start Date End Date Dewayne Pena MD [address] [place] [address] PCP - General Family Medicine 04/30/23 documented as of this encounter"
--- OUTSIDE RECORDS SUMMARY | 2023-10-08 23:11 | External Medical Summary | Summary of Care ---
Author Name Unknown Organization [facility] Address [address] [place] [address] Phone [phone] Care Team Providers Care Last Chalker Name Role Phone Dewayne Pena MD Primary Care Provider [phone] Reason for Visit * Reason Comments Cardiac Rehab Encounter Details Date Type Department Care Team (Late st Contact Info) Description 06/22/2023 11:30 AM EST Nurse Only Cardiac Rehab, [facility] [address] [place] [address] [facility], Nurse Cardiac Rehab [address] [place] [address] Cardiac Rehab (/) Allergies No known active [...] disease) 05/20/2019 Coronary artery disease invo lving takotna coronary artery of takotna heart without angina pectoris 03/24/2019 Nonrheumatic mitral [...] prior, see below) BCC R forehead 2008 ([facility]) Prediabetes 02/28/2021 02/01/2023 Overview: [...] MCG/0.3 mL, 12 YRS AND ABOVE, IM (P[employer]ER-Comirnat[employer]avian) 03/27/2023 COVID-19, mRNA, LNP-s, PF, B ooster, [...] Sign Reading Time Taken Comments Blood Pressure 126/7 06/22/2023 11:51 AM EST Pulse 109 06/22/2023 11:51 AM EST Temperature - - Respiratory Rate - - Oxygen Saturation - - Inhaled Oxygen Concentration - - Weight 64.7 kg (142 lb 9.6 oz) 06/22/2023 11:51 AM EST Height - - Body Mass Index 18.81 05/14/2023 10:52 AM EST documented in this encounter Functional Status Functional Status Response Date of Assess ment Do you have serious difficul ty walking or climbing stairs? (5 years old or older) No 05/04/2023 documented as of this encounter Nursing Notes * Zoraida Del Rosario RN - 06/22/2023 11:52 AM EST Patient tolerated Cardiac Rehab exercise without difficulty. Patient no c/o cp or sob. Patient wanting settings increased on settings on machines. documented in this encounter Plan of Treatment Upcoming Encounters Date Type Department Care Team (Late st Contact Info) Description 06/25/2023 10:20 AM EST Office Visit Pulmonary Medicine, [facility] [address] [place] [address] Juan Pablo Marsh MD [address] [place] [address] 06/27/2023 11:30 AM EST Nurse Only Cardiac Rehab, [address] [place] [address] [facility], Nurse Cardiac Rehab [address] [place] [address], [place] [address] 06/29/2023 11:30 AM EST Nurse Only Cardiac Rehab, [address] [place] [address] [facility], Nurse Cardiac Rehab [address] [place] [address], [place] [address] 07/02/2023 7:15 AM EST Cardiac Studies Cardiac Studies, [facility] [address] [place] [address] 07/02/2023 11:30 AM EST Nurse Only Cardiac Rehab, [address] [place] [address] [facility], Nurse Cardiac Rehab [address] [place] [address], [place] [address] 07/04/2023 11:30 AM EST Nurse Only Cardiac Rehab, [address] [place] [address] [facility], Nurse Cardiac Rehab [address] [place] [address], [place] [address] 07/06/2023 11:30 AM EST Nurse Only Cardiac Rehab, [address] [place] [address] [facility], Nurse Cardiac Rehab [address] [place] [address], [place] [address] 07/09/2023 11:30 AM EST Nurse Only Cardiac Rehab, [address] [place] [address] [facility], Nurse Cardiac Rehab [address] [place] [address], [place] [address] 07/09/2023 2:20 PM EST Office Visit Sleep Disorders Ctr [facility] [address] [place] [phone] Cara Brantley, [address] [place] [address] 07/11/2023 11:30 AM EST Nurse Only Cardiac Rehab, [address] [place] [address] [facility], Nurse Cardiac Rehab [address] [place] [address], [place] [address] 07/13/2023 11:30 AM EST Nurse Only Cardiac Rehab, [address] [place] [address] [facility], Nurse Cardiac Rehab [address] [place] [address], [place] [address] 07/16/2023 11:30 AM EST Nurse Only Cardiac Rehab, [address] [place] [address] [facility], Nurse Cardiac Rehab [address] [place] [address], [place] [address] 07/18/2023 11:30 AM EST Nurse Only Cardiac Rehab, [address] [place] [address] [place], Nurse Cardiac Rehab [address] [place] [address], [place] [address] 07/20/2023 11:30 AM EST Nurse Only Cardiac Rehab, [address] [place] [address] [facility], Nurse Cardiac Rehab [address] [place] [address], [place] [address] 07/23/2023 11:30 AM EST Nurse Only Cardiac Rehab, [address] [place] [address] G[place], Nurse Cardiac Rehab [address] [place] [address], [place] [address] 07/25/2023 11:30 AM EST Nurse Only Cardiac Rehab, [address] [place] [address] G[place], Nurse Cardiac Rehab [address] [place] [address], [place] [address] 07/27/2023 11:30 AM EST Nurse Only Cardiac Rehab, [address] [place] [address] G[place], Nurse Cardiac Rehab [address] [place] [address], [place] [address] 07/30/2023 11:30 AM EST Nurse Only Cardiac Rehab, [address] [place] [address] G[place], Nurse Cardiac Rehab [address] [place] [address], [place] [address] 08/01/2023 11:30 AM EST Nurse Only Cardiac Rehab, [address] [place] [address] G[place], Nurse Cardiac Rehab [address] [place] [address], [place] [address] 08/03/2023 11:30 AM EST Nurse Only Cardiac Rehab, [address] [place] [address] G[place], Nurse Cardiac Rehab [address] [place] [address], [place] [address] 08/06/2023 11:30 AM EST Nurse Only Cardiac Rehab, [address] [place] [address] [facility], Nurse Cardiac Rehab [address] [place] [address] 08/08/2023 11:30 AM EST Nurse Only Cardiac Rehab, [facility] [address] [place] [address], [place] [address] G[place], Nurse Cardiac Rehab [facility] [place] [address] 08/10/2023 11:30 AM EST Nurse Only Cardiac Rehab, [facility] [address] [place] [address], [place] [address] G[facility], Nurse Cardiac Rehab [address] [place] [address], [place] [address] 08/13/2023 11:30 AM EST Nurse Only Cardiac Rehab, [address] [place] [address] G[facility], Nurse Cardiac Rehab [address] [place] [address], [place] [address] 08/15/2023 11:30 AM EST Nurse Only Cardiac Rehab, [address] [place] [address] G[facility], Nurse Cardiac Rehab [address] [place] [address], [place] [address] 08/17/2023 11:30 AM EST Nurse Only Cardiac Rehab, [address] [place] [address] [facility], Nurse Cardiac Rehab [address] [place] [address], [place] [address] 08/20/2023 11:30 AM EST Nurse Only Cardiac Rehab, [address] [place] [address] G[facility], Nurse Cardiac Rehab [address] [place] [address], [place] [address] 08/21/2023 2:15 PM EST Office Visit Cardiology, [facility] 132 [facility] [place] [address] Izzy Patiño, [address] [address] 08/22/2023 11:30 AM EST Nurse Only Cardiac Rehab, [address] [address] [facility], Nurse Cardiac Rehab [address] [place] [address] 08/24/2023 11:30 AM EST Nurse Only Cardiac Rehab, [address] [place] [address] G[place], Nurse Cardiac Rehab [address] [place] [address], [place] [address] 08/27/2023 11:30 AM EDT Nurse Only Cardiac Rehab, [address] [place] [address] [place], Nurse Cardiac Rehab [address] [place] [address], [place] [address] 08/29/2023 11:30 AM EDT Nurse Only Cardiac Rehab, [address] [address] [place], Nurse Cardiac Rehab [address] [place] [address] 09/14/2023 1:20 PM EDT Office Visit Family Practice [facility] [address] [address] Dewayne Pena MD [address] [address] 10/02/2023 1:40 PM EDT Office Visit Rheumatology [address] [place] [address] Timo Guzman MD [address] [place] [address] [place] [address] 04/15/2024 10:40 AM EDT Office Visit Dermatology [facility] [address] [place] [address] Jonnathan House PA-C [address] [place], [place] [id number] Health Maintenance Due Date Last Done Comments [...] D LEVEL ONCE IN A LIFETIME-USE SMARTSET# 52847 Completed 11/03/2022, 11/20/2018 Influenza Vaccine (FLU shot) [...] this encounter Medical Devices Implanted Type Area Software Developer Manager Device Identifier Shelf Expiration Date Model / Serial / Lot Cath Thermodilution 6fr - [id number] Implanted:Qty: 1 on 03/07/2023 by Armando Beltran MD at [facility] [employer] KRISTYN [id number] 10/10/2024 [id number] / / [id number] Valve Aortic Transcath Fx 34mm - [id number] Implanted:Qty: 1 on 05/03/2023 by Armando Beltran MD at [facility] [place] [employer] [id number] 08/10/2024 [id number]- 34 / [id number] / [id number] documented as of this encounter Visit Diagnoses Diagnosis S/P TAVR (transcatheter aortic valve replacement)- Primary Heart valve replaced by other means documented in this encounter Advance Directives Documents on File Type Date Recorded Patient Registered Nurse Renal Expl anation POLST 03/06/2022 [place] OR DERS [...] Direct lorenzo occurred with: Patient Care Teams Last Chalker Relationship Specialty Start Date End Date Dewayne Pena MD [address] [place] [address] PCP - General Family Medicine 04/30/23 documented as of this encounter
--- OUTSIDE RECORDS SUMMARY | 2023-10-08 23:11 | External Medical Summary | Summary of Care ---
Author Name Unknown Organization [facility] Address [address] [place] [address] Phone [phone] Care Team Providers Care Bridge Operator Name Role Phone Dewayne Pena MD Primary Care Provider [phone] Reason for Visit * Reason Comments Cardiac Rehab * Evaluate & Treat - Unlimited Visits (Within 30 days (routine)) - Authorized Specialty Diagnoses / Procedures Referred By Contac t Referred To Contact CARDIAC REHAB / Cardiology Diagnoses S/P TAVR (transcatheter aortic valve replacement) Status post cardiac surgery Camille Vieyra DO [address] [place] [address] Referral ID Status Reason Start Date Expiration Date Visits Requested Visits Authorized [id number] Authorized Specialty Services Required 3 [phone] Encounter Details Date Type Department Care Team (Late st Contact Info) Description 06/15/2023 11:30 AM EST Nurse Only Cardiac Rehab, [place] [address] [facility], Nurse Cardiac Rehab [address] [place] [address] Cardiac Rehab Allergies No known active allergiesdocumented [...] 2013, Depth unknown, no SLN, Location R confucianism PSVT (paroxysmal supraventricular tachycardia) 0 12/15/2019 Raynaud's disease without gangrene 06/02/2019 Esophageal dysmotility 05/20/2019 JULIUS (obstructive sleep apnea) 05/20/2019 ILD (interstitial lung disease) 05/20/2019 Coronary artery disease invo lving igiugig coronary artery of igiugig heart without angina pectoris 03/24/2019 Nonrheumatic mitral [...] 2013, Depth unknown, no SLN, Location R confucianism (still no path in chart, pt confirmed that he had surgery for melanoma at that site and for BCC prior, see below) BCC R forehead 2008 ([facility]) Prediabetes 02/28/2021 02/01/2023 Overview: Per [...] MCG/0.3 mL, 12 YRS AND ABOVE, IM ([employer]-Comirnat[employer] Cloud) 03/27/2023 COVID-19, mRNA, LNP-s, PF, B ooster, [...] Sign Reading Time Taken Comments Blood Pressure 122/72 06/15/2023 11:42 AM EST Pulse 108 06/15/2023 11:42 AM EST Temperature - - Respiratory Rate - - Oxygen Saturation - - Inhaled Oxygen Concentration - - Weight 64.4 kg (141 lb 14.4 oz) 023 11:42 AM EST Height - - Body Mass Index 18.72 05/14/2023 10:52 AM EST documented in this encounter Functional Status Functional Status Response Date of Assess ment Do you have serious difficul ty walking or climbing stairs? (5 years old or older) No 05/04/2023 documented as of this encounter Nursing Notes * Zoraida Del Rosario RN - 06/15/2023 11:43 AM EST Patient tolerated CR well, no c/o pain or CP. Continues exercise regimen well. THR was to be increased and patient unable to reach current THR so holding off on this at this time. Will continue to monitor patient and increase resistance/ settings. documented in this encounter Plan of Treatment Upcoming Encounters Date Type Department Care Team (Latest Contact Info) Description 06/15/2023 2:00 PM EST Office Visit Cardiology, [facility] 132 [facility] [address] [place] [address] Blessing Coronel CRNP 132 [facility] [place] [address] Nonrheumatic aortic valve stenosis*; S/P TAVR (transcatheter aortic valve replacement); LBBB (left bundle branch block); Mobitz type 2 second degree AV block; PAF (paroxysmal atrial fibrillation) ([facility]); Atrial flutter, unspecified type ([facility]); Nonobstructive atherosclerosis of coronary artery 06/20/2023 11:30 AM EST Nurse Only Cardiac Rehab, [address] [address] [facility], Nurse Cardiac Rehab [address] [place] [address] 06/22/2023 11:30 AM EST Nurse Only Cardiac Rehab, [address] [address] [facility], Nurse Cardiac Rehab [address] [place] [address] 06/25/2023 10:20 AM EST Office Visit Pulmonary Medicine, [facility] 132 [facility] [address] [place] [address] Juan Pablo Marsh MD [address] [place] [address] 06/27/2023 11:30 AM EST Nurse Only Cardiac Rehab, [address] [address] [place], Nurse Cardiac Rehab [address] [facility] [place] [address] 06/29/2023 11:30 AM EST Nurse Only Cardiac Rehab, [facility] [address] [facility] [address] G[place], Nurse Cardiac Rehab [facility] [place] [address] 07/02/2023 7:15 AM EST Cardiac Studies Cardiac Studies, [facility] 132 [facility] [place] [address] 07/02/2023 11:30 AM EST Nurse Only Cardiac Rehab, [address] [place] [address] G[facility], Nurse Cardiac Rehab [address] [place] [address], [place] [address] 07/04/2023 11:30 AM EST Nurse Only Cardiac Rehab, [facility] [address] [place] [address], [place] [address] G[facility], Nurse Cardiac Rehab [address] [place] [address], [place] [address] 07/06/2023 11:30 AM EST Nurse Only Cardiac Rehab, [address] [place] [address] [facility], Nurse Cardiac Rehab [address] [place] [address], [place] [address] 07/09/2023 11:30 AM EST Nurse Only Cardiac Rehab, [address] [place] [address] [facility], Nurse Cardiac Rehab [address] [place] [address], [place] [address] 07/09/2023 2:20 PM EST Office Visit Sleep Disorders Ctr [facility] 132 [facility] [place] [phone] Cara Brantley, DO [address] [place] [address] 07/11/2023 11:30 AM EST Nurse Only Cardiac Rehab, [address] [place] [address] [facility], Nurse Cardiac Rehab [address] [place] [address], [place] [address] 07/13/2023 11:30 AM EST Nurse Only Cardiac Rehab, [address] [place] [address] [facility], Nurse Cardiac Rehab [address] [place] [address], [place] [address] 07/16/2023 11:30 AM EST Nurse Only Cardiac Rehab, [address] [place] [address] [place], Nurse Cardiac Rehab [address] [place] [address], [place] [address] 07/18/2023 11:30 AM EST Nurse Only Cardiac Rehab, [address] [place] [address] [facility], Nurse Cardiac Rehab [address] [place] [address], [place] [address] 07/20/2023 11:30 AM EST Nurse Only Cardiac Rehab, [address] [place] [address] [place], Nurse Cardiac Rehab [address] [place] [address], [place] [address] 07/23/2023 11:30 AM EST Nurse Only Cardiac Rehab, [address] [place] [address] [place], Nurse Cardiac Rehab [address] [place] [address], [place] [address] 07/25/2023 11:30 AM EST Nurse Only Cardiac Rehab, [facility] [address] [facility] [address] G[facility]sh, Nurse Cardiac Rehab [address] [facility] [place] [address] 07/27/2023 11:30 AM EST Nurse Only Cardiac Rehab, [facility] [address] [place] [address], [place] [address] [place], Nurse Cardiac Rehab [facility] [place] [address] 07/30/2023 11:30 AM EST Nurse Only Cardiac Rehab, [address] [place] [address] [facility], Nurse Cardiac Rehab [address] [place] [address], [place] [address] 08/01/2023 11:30 AM EST Nurse Only Cardiac Rehab, [address] [place] [address] [facility], Nurse Cardiac Rehab [address] [place] [address], [place] [address] 08/03/2023 11:30 AM EST Nurse Only Cardiac Rehab, [address] [place] [address] [facility], Nurse Cardiac Rehab [address] [place] [address], [place] [address] 08/06/2023 11:30 AM EST Nurse Only Cardiac Rehab, [address] [place] [address] [facility], Nurse Cardiac Rehab [address] [place] [address], [place] [address] 08/08/2023 11:30 AM EST Nurse Only Cardiac Rehab, [address] [place] [address] G[facility], Nurse Cardiac Rehab [address] [place] [address], [place] [address] 08/10/2023 11:30 AM EST Nurse Only Cardiac Rehab, [facility] [address] [place] [address], [place] [address] G[facility], Nurse Cardiac Rehab [address] [facility] [place] [address] 08/13/2023 11:30 AM EST Nurse Only Cardiac Rehab, [facility] [address] [place] [address], [place] [address] G[facility], Nurse Cardiac Rehab [address] [facility] [place] [address] 08/15/2023 11:30 AM EST Nurse Only Cardiac Rehab, [address] [place] [address] [place], Nurse Cardiac Rehab [address] [place] [address], [place] [address] 08/17/2023 11:30 AM EST Nurse Only Cardiac Rehab, [facility] [address] [facility] [place] [address] Gjsh, Nurse Cardiac Rehab [address] [place] [address], [place] [address] 08/20/2023 11:30 AM EST Nurse Only Cardiac Rehab, [address] [place] [address] G[place], Nurse Cardiac Rehab [facility] [place] [address] 08/22/2023 11:30 AM EST Nurse Only Cardiac Rehab, [address] [place] [address] G[place], Nurse Cardiac Rehab [address] [place] [address], [place] [address] 08/24/2023 11:30 AM EST Nurse Only Cardiac Rehab, [address] [place] [address] G[facility], Nurse Cardiac Rehab [address] [place] [address], [place] [address] 08/27/2023 11:30 AM EDT Nurse Only Cardiac Rehab, [facility] [address] [facility] [address] [facility], Nurse Cardiac Rehab [address] [facility] [place] [address] 08/29/2023 11:30 AM EDT Nurse Only Cardiac Rehab, [facility] [place] [address] [facility] [place] [address] [facility], Nurse Cardiac Rehab [address] [place] [address] 09/14/2023 1:20 PM EDT Office Visit Family Practice [facility] [place] [address] Dewayne Pena MD 132 [facility] [place] [address] 10/02/2023 1:40 PM EDT Office Visit Rheumatology [address] [place] [address] Timo Guzman MD [address] [place] [address] 04/15/2024 10:40 AM EDT Office Visit Dermatology [facility] [address] [place] [address] Jonnathan House PA-C [address] [place] [address] Health Maintenance Due Date Last [...] D LEVEL ONCE IN A LIFETIME-USE SMARTSET# 51555 Completed 11/03/2022, 11/20/2018 Influenza Vaccine (FLU shot) [...] this encounter Medical Devices Implanted Type Area Bladder Blower Device Identifier Shelf Expiration Date Model / Serial / Lot Cath Thermodilution 6fr - [id number] Implanted:Qty: 1 on 03/07/2023 by Armando Beltran MD at [facility] [place] [employer] KRISTYN [id number] 10/10/2024 [id number] / / [id number] Valve Aortic Transcath Fx 34mm - [id number] Implanted:Qty: 1 on 05/03/2023 by Armando Beltran MD at [facility] [place] [employer] [id number] 08/10/2024 EVOLUTFX- 34 / [id number] / [id number] documented as of this encounter Visit Diagnoses [...] type (HCC) Nonobstructive atherosclerosis of coronary artery S/P TAVR (transcatheter aortic valve replacement)- Primary Heart valve replaced by other means documented in this encounter Advance Directives Documents on File Type Date Recorded Patient Head Usher Expl anation POLST 03/06/2022 [place] OR DERS FOR LIFE-SUSTAINING TREATMENT POLST 12/13/2021 [place] DERS FOR LIFE-SUSTAINING TREATMENT Latest Code [...] Direct lorenzo occurred with: Patient Care Teams Bridge Operator Relationship Specialty Start Date End Date Dewayne Pena MD 132 [facility] [place] [address] PCP - General Family Medicine 04/30/23 documented as of this encounter
--- OUTSIDE RECORDS SUMMARY | 2023-10-08 23:11 | External Medical Summary ---
Author Name Unknown Address Unknown Organization K[facility] [address] [place] [address] Laboratory Report Ordering Provider Test Date Status GUSTAVO RAMÍREZ 06/15/2023 13:13:01 Final Observation Date Value Abnormality Reference (Units ) Status WBC, Total 06/15/2023 13:13:01 6.22 4.00-10.8 0 (K/uL) Final RBC 06/15/2023 13:13:01 3.73 4.50-5.25 (M/uL) Final Hemoglobin 06/15/2023 13:13:01 13.3 Below low normal 14 .0-16.8 (g/dL) Final HCT 06/15/2023 13:13:01 38.8 Below low normal 40. 0-48.4 (%) Final MCV 06/15/2023 13:13:01 104.0 82.0-99.5 (fL) Final MCH 06/15/2023 13:13:01 35.7 27.0-34.0 (pg) Final MCHC 06/15/2023 13:13:01 34.3 32.0-36.0 (g/dL) Final RDW 06/15/2023 13:13:01 14.8 11.5-15.5 (%) Final Platelets 06/15/2023 13:13:01 230 140-400 (K /uL) Final MPV 06/15/2023 13:13:01 11.4 6.6-11.1 ( fL) Final [facility] [place] [address]
--- OUTSIDE RECORDS SUMMARY | 2023-10-08 23:11 | External Medical Summary | Summary of Care ---
Author Name Unknown Organization [facility] Address [address] [place] [address] Phone [phone] Care Team Providers Care Geoint Analyst Name Role Phone Dewayne Pena MD Primary Care Provider [phone] [phone] Reason for Visit * Reason Comments Cardiac Rehab * Evaluate & Treat - Unlimited Visits (Within 30 days (routine)) - Authorized Specialty Diagnoses / Procedures Referred By Contac t Referred To Contact CARDIAC REHAB / Cardiology Diagnoses S/P TAVR (transcatheter aortic valve replacement) Status post cardiac surgery Jarrell, DO Camille [address] [place] [address] Referral ID Status Reason Start Date Expiration Date Visits Requested Visits Authorized [id number] Authorized Specialty Services Required 3 [phone] Encounter Details Date Type Department Care Team (Late st Contact Info) Description 06/05/2023 8:30 AM EST Nurse Only Cardiac Rehab, [facility] [address] [place] [address] [facility], Nurse Cardiac Rehab Interviews [address] [place] [address] Cardiac Rehab Allergies No known active allergiesdocumented as of this encounter (statuses as of 06/05/2023) Medications Medication Sig Dispensed Refills Start Date [...] as of this encounter (statuses as of 06/05/2023) Active Problems Problem Noted Date Diagnosed Date 1st degree AV block 05/05/2023 S/P TAVR (transcatheter aortic valve replacement ) 05/03/2023 BMI less than 19,adult 03/16/2023 Senile osteoporosis 09/28/2022 Protein-calorie malnutrition 07/07/2022 Neuromuscular disorder 07/07/2022 PHT (pulmonary hypertension) 06/02/2021 Hx of melanoma of skin 03/24/2021 Overview: Hx MM date 2013, Depth unknown, no SLN, Location R [facility] PSVT (paroxysmal supraventricular tachycardia) 0 12/15/2019 Raynaud's disease without gangrene 06/02/2019 Esophageal dysmotility 05/20/2019 JULIUS (obstructive sleep apnea) 05/20/2019 ILD (interstitial lung disease) 05/20/2019 Coronary artery disease invo lving [place] coronary artery of [place] heart without angina pectoris 03/24/2019 Nonrheumatic mitral valve stenosis 03/24/2019 H/O Hodgkin's lymphoma 07/05/2018 Acquired hypothyroidism 07/05/2018 documented as of this encounter (statuses as of 06/05/2023) Resolved Problems Problem Noted Date Diagnosed Date Resolved Date Osteoporotic fracture of left hip 09/28/2022 03/14/2023 Aortic root enlargement 07/07/202204/19 Sinus tachycardia 03/16/2022 03/14/2023 Hx of nonmelanoma skin cancer 03/24/2021 05/14/2023 Overview: Hx MM date 2013, Depth unknown, no SLN, Location R [facility] (still no path in chart, pt confirmed that he had surgery for melanoma at that site and for BCC prior, see below) BCC R forehead 2008 ([facility]) Prediabetes 02/28/2021 02/01/2023 Overview: Per Prediabetes protocol Moderate protein malnutrition 12/15/2019 03/14/2023 Ankylosing spondylitis of cervical region 12/15/2019 07/07/2022 Moderate aortic stenosis 03/24/2019 H/O atrial fibrillation with out current medication 07/05/2018 03/14/2023 documented as of this encounter (statuses as of 06/05/2023) Immunizations Name Administration Dates Next Due COVID-19 mRNA, LNP-s, No Pre serve, 2-Dose Series (Moderna) 08/21/2020,07/17/2020 COVID-19, MRNA-LNP, 23-24, P F, 30 MCG/0.3 mL, 12 YRS AND ABOVE, IM ([employer]) 03/27/2023 COVID-19, mRNA, LNP-s, PF, B ooster, [...] Sign Reading Time Taken Comments Blood Pressure 129/65 06/05/2023 1:03 PM EST Pulse - - Temperature - - Respiratory Rate - - Oxygen Saturation - - Inhaled Oxygen Concentration - - Weight 64.9 kg (143 lb) 06/05/2023 1:03 PM EST Height - - Body Mass Index 18.87 05/14/2023 10:52 AM EST documented in this encounter Functional Status Functional Status Response Date of Assess ment Do you have serious difficul ty walking or climbing stairs? (5 years old or older) No 05/04/2023 documented as of this encounter Nursing Notes * Verona Rodriguez RN - 06/05/2023 1:03 PM EST Pt presented for initial cardiac rehab intake interview. Program explained to patient, medications and history reviewed. Pt would like to proceed with program. Six minute walk completed and consents signed. He will start program 06/08/2023. documented in this encounter Plan of Treatment Upcoming Encounters Date Type Department Care Team (Late st Contact Info) Description 06/08/2023 11:30 AM EST Nurse Only Cardiac Rehab, [address] [address] Gjsh, Nurse Cardiac Rehab [address] [place] [address] 06/13/2023 11:30 AM EST Nurse Only Cardiac Rehab, [address] [address] Gjsh, Nurse Cardiac Rehab [address] [place] [address] 06/15/2023 11:30 AM EST Nurse Only Cardiac Rehab, [address] [address] Gj, Nurse Cardiac Rehab [address] [place] [address] 06/15/2023 1:30 PM EST Laboratory Laboratory, [facility] [id number] [facility] [address] 06/15/2023 2:00 PM EST Office Visit Cardiology, [facility] [address] [facility] [place] [address] Blessing Coronel CRNP [address] [place] [address] 06/20/2023 11:30 AM EST Nurse Only Cardiac Rehab, [address] [address] Gjsh, Nurse Cardiac Rehab [address] [place] [address], [place] [address] 06/22/2023 11:30 AM EST Nurse Only Cardiac Rehab, [address] [place] [address] Gjsh, Nurse Cardiac Rehab [address] [place] [address], [place] [address] 06/25/2023 10:20 AM EST Office Visit Pulmonary Medicine, [facility] [address] [facility] [place] [address] Juan Pablo Marsh MD [address] [place] [address] 06/25/2023 11:30 AM EST Nurse Only Cardiac Rehab, [address] [place] [address] Gjsh, Nurse Cardiac Rehab [address] [place] [address], [place] [address] 06/27/2023 11:30 AM EST Nurse Only Cardiac Rehab, [address] [place] [address] Gjsh, Nurse Cardiac Rehab [address] [place] [address], [place] [address] 06/29/2023 11:30 AM EST Nurse Only Cardiac Rehab, [address] [place] [address] Gjsh, Nurse Cardiac Rehab [address] [place] [address], [place] [address] 07/02/2023 7:15 AM EST Cardiac Studies Cardiac Studies, [facility] 132 [facility] [place] [address] 07/02/2023 11:30 AM EST Nurse Only Cardiac Rehab, [address] [place] [address] Gjsh, Nurse Cardiac Rehab [address] [place] [address], [place] [address] 07/04/2023 11:30 AM EST Nurse Only Cardiac Rehab, [address] [place] [address] Gjsh, Nurse Cardiac Rehab [address] [place] [address], [place] [address] 07/06/2023 11:30 AM EST Nurse Only Cardiac Rehab, [address] [place] [address] Gjsh, Nurse Cardiac Rehab [address] [place] [address], [place] [address] 07/09/2023 11:30 AM EST Nurse Only Cardiac Rehab, [address] [place] [address] Gjsh, Nurse Cardiac Rehab [address] [place] [address], [place] [address] 07/09/2023 2:20 PM EST Office Visit Sleep Disorders Ctr [facility] [address] [place] [address] Cara Brantley [address] [place] [address] 07/11/2023 11:30 AM EST Nurse Only Cardiac Rehab, [address] [place] [address] Gjsh, Nurse Cardiac Rehab [address] [place] [address], [place] [address] 07/13/2023 11:30 AM EST Nurse Only Cardiac Rehab, [address] [place] [address] Gjsh, Nurse Cardiac Rehab [address] [place] [address], [place] [address] 07/16/2023 11:30 AM EST Nurse Only Cardiac Rehab, [facility] [address] [facility] [address] Gjsh, Nurse Cardiac Rehab [address] [facility] [place] [address] 07/18/2023 11:30 AM EST Nurse Only Cardiac Rehab, [facility] [address] [place] [address], [place] [address] Gjsh, Nurse Cardiac Rehab [address] [facility] [place] [address] 07/20/2023 11:30 AM EST Nurse Only Cardiac Rehab, [address] [place] [address] Gjsh, Nurse Cardiac Rehab [facility] [place] [address] 07/23/2023 11:30 AM EST Nurse Only Cardiac Rehab, [place] [id number] [facility] [address] Gjsh, Nurse Cardiac Rehab [address] [place] [address], [place] [address] 07/25/2023 11:30 AM EST Nurse Only Cardiac Rehab, [address] [place] [address] Gjsh, Nurse Cardiac Rehab [address] [place] [address], [place] [address] 07/27/2023 11:30 AM EST Nurse Only Cardiac Rehab, [address] [place] [address] Gjsh, Nurse Cardiac Rehab [address] [place] [address], [place] [address] 07/30/2023 11:30 AM EST Nurse Only Cardiac Rehab, [facility] [address] [place] [address], [place] [address] Gjsh, Nurse Cardiac Rehab [address] [place] [address], [place] [address] 08/01/2023 11:30 AM EST Nurse Only Cardiac Rehab, [facility] [address] [place] [address], [place] [address] Gjsh, Nurse Cardiac Rehab [facility] [place] [address] 08/03/2023 11:30 AM EST Nurse Only Cardiac Rehab, [facility] [address] [place] [address], [place] [address] Gjsh, Nurse Cardiac Rehab [address] [place] [address], [place] [address] 08/06/2023 11:30 AM EST Nurse Only Cardiac Rehab, [address] [place] [address] Gjsh, Nurse Cardiac Rehab [address] [place] [address], [place] [address] 08/08/2023 11:30 AM EST Nurse Only Cardiac Rehab, [address] [place] [address] Gjsh, Nurse Cardiac Rehab [address] [place] [address], [place] [address] 08/10/2023 11:30 AM EST Nurse Only Cardiac Rehab, [address] [place] [address] Gjsh, Nurse Cardiac Rehab [address] [place] [address], [place] [address] 08/13/2023 11:30 AM EST Nurse Only Cardiac Rehab, [address] [place] [address] Gjsh, Nurse Cardiac Rehab [address] [place] [address], [place] [address] 08/15/2023 11:30 AM EST Nurse Only Cardiac Rehab, [address] [place] [address] Gjsh, Nurse Cardiac Rehab [address] [place] [address], [place] [address] 08/17/2023 11:30 AM EST Nurse Only Cardiac Rehab, [address] [place] [address] Gjsh, Nurse Cardiac Rehab [address] [place] [address], [place] [address] 08/20/2023 11:30 AM EST Nurse Only Cardiac Rehab, [address] [place] [address] Gjsh, Nurse Cardiac Rehab [address] [place] [address], [place] [address] 08/22/2023 11:30 AM EST Nurse Only Cardiac Rehab, [address] [place] [address] Gjsh, Nurse Cardiac Rehab [address] [place] [address], [place] [address] 08/24/2023 11:30 AM EST Nurse Only Cardiac Rehab, [address] [place] [address] Gjsh, Nurse Cardiac Rehab [address] [place] [address], [place] [address] 08/27/2023 11:30 AM EDT Nurse Only Cardiac Rehab, [address] [place] [address] Gjsh, Nurse Cardiac Rehab [address] [place] [address], [place] [address] 09/14/2023 1:20 PM EDT Office Visit Family Practice [facility] [address] [place] [address] Dewayne Pena MD [address] [place] [address] 10/02/2023 1:40 PM EDT Office Visit Rheumatology [place] [address] [employer] [place], [place] [address] Timo Guzman MD [address] [place] [address] 04/15/2024 10:40 AM EDT Office Visit Dermatology [facility] [address] [place] [address] Jonnathan House PA-C [address] [place] [address] Scheduled Orders Name Type Priority Associated Diagnoses Orde r Schedule CARDIAC REHAB W/ECG MONITORING Procedures Routine S/P TAVR (transcatheter aortic valve replacement) 36 Occurrences starting 06/05/2023 until 06/05/2024 Health Maintenance Due Date Last Done Comments [...] D LEVEL ONCE IN A LIFETIME-USE SMARTSET# [id number] Completed 11/03/2022, 11/20/2018 Influenza Vaccine (FLU shot) [...] this encounter Medical Devices Implanted Type Area Food Service Cashier Device Identifier Shelf Expiration Date Model / Serial / Lot Cath Thermodilution 6fr - [id number] Implanted:Qty: 1 on 03/07/2023 by Armando Beltran MD at [facility] [employer] KRISTYN [id number] 10/10/2024 [id number] / / [id number] Valve Aortic Transcath Fx 34mm - [id number] Implanted:Qty: 1 on 05/03/2023 by Armando Beltran MD at [facility] [employer] [id number] 08/10/2024 EVOLUTFX- 34 / [id number] / [id number] documented as of this encounter Visit Diagnoses Diagnosis S/P TAVR (transcatheter aortic valve replacement)- Primary Heart valve replaced by other means documented in this encounter Advance Directives Documents on File Type Date Recorded Patient Tank Charger Expl anation POLST 03/06/2022 [place] OR DERS [...] Direct lorenzo occurred with: Patient Care Teams Geoint Analyst Relationship Specialty Start Date End Date Dewayne Pena MD [address] [place] [address] PCP - General Family Medicine 04/30/23 documented as of this encounter
--- OUTSIDE RECORDS SUMMARY | 2023-10-08 23:11 | External Medical Summary | Summary of Care ---
Author Name Unknown Organization [facility] Address [address] [place] [address] Phone [phone] Care Team Providers Care Rewards Consultant Name Role Phone Dewayne Pena MD Primary Care Provider [phone] Reason for Visit * Reason Comments Cardiac Rehab Encounter Details Date Type Department Care Team (Late st Contact Info) Description 06/20/2023 11:30 AM EST Nurse Only Cardiac Rehab, [facility] [address] [place] [address] [facility], Nurse Cardiac Rehab [address] [place] [address] Cardiac Rehab Allergies No known active allergiesdocumented as of this encounter (statuses as of 06/20/2023) Medications Medication Sig Dispensed Refills Start Date [...] as of this encounter (statuses as of 06/20/2023) Active Problems Problem Noted Date Diagnosed Date [...] disease) 05/20/2019 Coronary artery disease invo lving [place] coronary artery of [place] heart without angina pectoris 03/24/2019 Nonrheumatic mitral valve stenosis 03/24/2019 H/O Hodgkin's lymphoma 07/05/2018 Acquired hypothyroidism 07/05/2018 documented as of this encounter (statuses as of 06/20/2023) Resolved Problems Problem Noted Date Diagnosed Date [...] prior, see below) BCC R forehead 2008 ([facility]) Prediabetes 02/28/2021 02/01/2023 Overview: Per Prediabetes protocol Moderate protein malnutrition 12/15/2019 03/14/2023 Ankylosing spondylitis of cervical region 12/15/2019 07/07/2022 Moderate aortic stenosis 03/24/2019 H/O atrial fibrillation with out current medication 07/05/2018 03/14/2023 documented as of this encounter (statuses as of 06/20/2023) Immunizations Name Administration Dates Next Due COVID-19 [...] Sign Reading Time Taken Comments Blood Pressure 128/72 06/20/2023 11:36 AM EST Pulse - - Temperature - - Respiratory Rate - - Oxygen Saturation - - Inhaled Oxygen Concentration - - Weight 64.5 kg (142 lb 3.2 oz) 06/20/2023 11:36 AM EST Height - - Body Mass Index 18.76 05/14/2023 10:52 AM EST documented in this encounter Functional Status Functional Status Response Date of Assess ment Do you have serious difficul ty walking or climbing stairs? (5 years old or older) No 05/04/2023 documented as of this encounter Nursing Notes * Verona Rodriguez RN - 06/20/2023 11:36 AM EST Pt participated in Cardiac Rehab today with no complications. Exercise regimen per protocol. Increased intensity of machines per pt request and added another station. Pt tolerated this very well. documented in this encounter Plan of Treatment Upcoming Encounters Date Type Department Care Team (Late st Contact Info) Description 06/22/2023 11:30 AM EST Nurse Only Cardiac Rehab, [address] [place] [address] Gjsh, Nurse Cardiac Rehab [address] [place] [address], [place] [address] 06/25/2023 10:20 AM EST Office Visit Pulmonary Medicine, [address] [place] [address] Juan Pablo Marsh MD [address] [facility] [address] 06/27/2023 11:30 AM EST Nurse Only Cardiac Rehab, [address] [place] [address] Gjsh, Nurse Cardiac Rehab [address] [place] [address], [place] [address] 06/29/2023 11:30 AM EST Nurse Only Cardiac Rehab, [address] [place] [address] Gjsh, Nurse Cardiac Rehab [address] [place] [address], [place] [address] 07/02/2023 7:15 AM EST Cardiac Studies Cardiac Studies, [address] [place] [address] 07/02/2023 11:30 AM EST Nurse Only Cardiac Rehab, [address] [place] [address] Gjsh, Nurse Cardiac Rehab [address] [place] [address], [place] [address] 07/04/2023 11:30 AM EST Nurse Only Cardiac Rehab, [address] [place] [address] Gjsh, Nurse Cardiac Rehab [address] [place] [address], [place] [address] 07/06/2023 11:30 AM EST Nurse Only Cardiac Rehab, [facility] [address] [place] [address], [place] [address] Gjsh, Nurse Cardiac Rehab [address] [place] [address], [place] [address] 07/09/2023 11:30 AM EST Nurse Only Cardiac Rehab, [facility] [address] [facility] [place] [address] Gjsh, Nurse Cardiac Rehab [facility] [place] [address] 07/09/2023 2:20 PM EST Office Visit Sleep Disorders Ctr [facility] [address] [place] [address] Cara Brantley [address] [place] [address] 07/11/2023 11:30 AM EST Nurse Only Cardiac Rehab, [address] [place] [address] Gjsh, Nurse Cardiac Rehab [address] [place] [address], [place] [address] 07/13/2023 11:30 AM EST Nurse Only Cardiac Rehab, [address] [place] [address] Gjsh, Nurse Cardiac Rehab [address] [place] [address], [place] [address] 07/16/2023 11:30 AM EST Nurse Only Cardiac Rehab, [address] [place] [address] Gjsh, Nurse Cardiac Rehab [address] [place] [address], [place] [address] 07/18/2023 11:30 AM EST Nurse Only Cardiac Rehab, [address] [place] [address] Gjsh, Nurse Cardiac Rehab [address] [place] [address], [place] [address] 07/20/2023 11:30 AM EST Nurse Only Cardiac Rehab, [address] [place] [address] Gjsh, Nurse Cardiac Rehab [facility] [place] [address] 07/23/2023 11:30 AM EST Nurse Only Cardiac Rehab, [address] [place] [address] Gjsh, Nurse Cardiac Rehab [address] [place] [address], [place] [address] 07/25/2023 11:30 AM EST Nurse Only Cardiac Rehab, [address] [place] [address] Gjsh, Nurse Cardiac Rehab [address] [place] [address], [place] [address] 07/27/2023 11:30 AM EST Nurse Only Cardiac Rehab, [address] [place] [address] Gjsh, Nurse Cardiac Rehab [address] [place] [address], [place] [address] 07/30/2023 11:30 AM EST Nurse Only Cardiac Rehab, [address] [place] [address] Gjsh, Nurse Cardiac Rehab [address] [place] [address], [place] [address] 08/01/2023 11:30 AM EST Nurse Only Cardiac Rehab, [address] [place] [address] Gjsh, Nurse Cardiac Rehab [address] [place] [address], [place] [address] 08/03/2023 11:30 AM EST Nurse Only Cardiac Rehab, [address] [place] [address] Gjsh, Nurse Cardiac Rehab [facility] [place] [address] 08/06/2023 11:30 AM EST Nurse Only Cardiac Rehab, [facility] [address] [place] [address], [place] [address] Gjsh, Nurse Cardiac Rehab [address] [place] [address], [place] [address] 08/08/2023 11:30 AM EST Nurse Only Cardiac Rehab, [address] [place] [address] Gjsh, Nurse Cardiac Rehab [address] [place] [address], [place] [address] 08/10/2023 11:30 AM EST Nurse Only Cardiac Rehab, [address] [place] [address] Gjsh, Nurse Cardiac Rehab [address] [place] [address], [place] [address] 08/13/2023 11:30 AM EST Nurse Only Cardiac Rehab, [address] [place] [address] Gjsh, Nurse Cardiac Rehab [address] [place] [address], [place] [address] 08/15/2023 11:30 AM EST Nurse Only Cardiac Rehab, [address] [place] [address] Gjsh, Nurse Cardiac Rehab [address] [place] [address], [place] [address] 08/17/2023 11:30 AM EST Nurse Only Cardiac Rehab, [address] [place] [address] Gjsh, Nurse Cardiac Rehab [address] [place] [address], [place] [address] 08/20/2023 11:30 AM EST Nurse Only Cardiac Rehab, [address] [place] [address] Gjsh, Nurse Cardiac Rehab [address] [place] [address], [place] [address] 08/21/2023 2:15 PM EST Office Visit Cardiology, [facility] [address] [facility] [place] [address] Izzy Patiño, [address] [place] [address] 08/22/2023 11:30 AM EST Nurse Only Cardiac Rehab, [address] [place] [address] Gjsh, Nurse Cardiac Rehab [address] [place] [address], [place] [address] 08/24/2023 11:30 AM EST Nurse Only Cardiac Rehab, [address] [place] [address] Gjsh, Nurse Cardiac Rehab [address] [place] [address], [place] [address] 08/27/2023 11:30 AM EDT Nurse Only Cardiac Rehab, [address] [place] [address] Gjsh, Nurse Cardiac Rehab [address] [place] [address], [place] [address] 08/29/2023 11:30 AM EDT Nurse Only Cardiac Rehab, [address] [place] [address] Gjsh, Nurse Cardiac Rehab [address] [place] [address], [place] [address] 09/14/2023 1:20 PM EDT Office Visit Family Practice [facility] [address] [place] [address] Dweayne Pena MD [address] [place] [address] 10/02/2023 1:40 PM EDT Office Visit Rheumatology [address] [place] [address] Timo Guzman MD [facility] [employer] [place] [address] 04/15/2024 10:40 AM EDT Office Visit Dermatology [facility] [address] [place] [address] Jonnathan House PA-C [address] [place], [place] [id number] Health Maintenance Due Date Last Done Comments [...] D LEVEL ONCE IN A LIFETIME-USE SMARTSET# [id number] Completed 11/03/2022, 11/20/2018 Influenza Vaccine (FLU shot) [...] this encounter Medical Devices Implanted Type Area Community Case Manager Device Identifier Shelf Expiration Date Model / Serial / Lot Cath Thermodilution 6fr - [id number] Implanted:Qty: 1 on 03/07/2023 by Armando Beltran MD at [facility] [employer] KRISTYN [id number] 10/10/2024 [id number] / / [id number] Valve Aortic Transcath Fx 34mm - [id number] Implanted:Qty: 1 on 05/03/2023 by Armando Beltran MD at [facility] [employer] [id number] 08/10/2024 EVOLUTFX- 34 / [id number] / [id number] documented as of this encounter Visit Diagnoses Diagnosis S/P TAVR (transcatheter aortic valve replacement)- Primary Heart valve replaced by other means documented in this encounter Advance Directives Documents on File Type Date Recorded Patient Talent Acquisition Associate Expl anation POLST 03/06/2022 [place] OR DERS [...] Direct lorenzo occurred with: Patient Care Teams Rewards Consultant Relationship Specialty Start Date End Date Dewayne Pena MD [address] [place] [address] PCP - General Family Medicine 04/30/23 documented as of this encounter
--- OUTSIDE RECORDS SUMMARY | 2023-10-08 23:11 | External Medical Summary ---
Author Name Unknown Address Unknown Organization K[facility] [address] [place] [address] Laboratory Report Ordering Provider Test Date Status GUSTAVO RAMÍREZ 06/15/2023 13:13:01 Final Observation Date Value Abnormality Reference (Units ) Status BUN 06/15/2023 13:13:01 18 6-20 (mg/dL) Final Creatinine 06/15/2023 13:13:01 0.7 0.6-1.2 (mg/dL) Final Glomerular filtration rate/1.73 sq M.predicted [Volume Rate/Area] in Serum, Plasma or Blood by Creatinine-based formula (CKD-EPI) 06/15/2023 13:13:01 >90 >=60 (mL/min) Final eGFR is calculated based on the CKD-EPI 2020 equation SODIUM 06/15/2023 13:13:01 141 135-146 (m mol/L) Final Potassium 06/15/2023 13:13:01 4.8 3.5-5.1 (m mol/L) Final Cl 06/15/2023 13:13:01 98 98-107 (mm ol/L) Final CO2 06/15/2023 13:13:01 31 22-32 (mmo l/L) Final Anion gap 06/15/2023 13:13:01 12 7-15 (mmol /L) Final Glucose 06/15/2023 13:13:01 96 70-120 (mg /dL) Final Calcium 06/15/2023 13:13:01 10.1 8.4-10.2 ( mg/dL) Final Performing Location [facility] [address] [place] [address]
--- OUTSIDE RECORDS SUMMARY | 2023-10-08 23:11 | External Medical Summary | Summary of Care ---
Author Name Unknown Organization [facility] Address [address] [place] [place] [address] Phone [phone] Care Team Providers Care Auditor Supervisor Name Role Phone Dewayne Pena MD Primary Care Provider [phone] [phone] Reason for Visit * Reason Comments Outpatient Testing Encounter Details Date Type Department Care Team (Late st Contact Info) Description 06/15/2023 1:30 PM EST Laboratory Laboratory, [facility] [address] [facility] 132 [facility] [place] [address] History of transcatheter aortic valve replacement (TAVR) Allergies No known active allergiesdocumented as of [...] 2013, Depth unknown, no SLN, Location R scientology PSVT (paroxysmal supraventricular tachycardia) 0 12/15/2019 Raynaud's disease without gangrene 06/02/2019 Esophageal dysmotility 05/20/2019 JULIUS (obstructive sleep apnea) 05/20/2019 ILD (interstitial lung disease) 05/20/2019 Coronary artery disease invo lving belk[place]ski coronary artery of belk[place] heart without angina pectoris 03/24/2019 Nonrheumatic mitral valve stenosis 03/24/2019 H/O Hodgkin's lymphoma 07/05/2018 Acquired hypothyroidism 07/05/2018 documented as of this encounter (statuses as of 06/15/2023) Resolved Problems Problem Noted Date Diagnosed Date Resolved Date Osteoporotic fracture of left hip 09/28/2022 03/14/2023 Aortic root enlargement 07/07/2022/08/2022 Sinus tachycardia 03/16/2022 03/14/2023 Hx of nonmelanoma skin cancer 03/24/2021 05/14/2023 Overview: Hx MM date 2013, Depth unknown, no SLN, Location R scientology (still no path in chart, pt confirmed that he had surgery for melanoma at that site and for BCC prior, see below) BCC R forehead 2008 ([facility]) Prediabetes 02/28/2021 02/01/2023 Overview: Per [...] MCG/0.3 mL, 12 YRS AND ABOVE, IM ([employer]) 03/27/2023 COVID-19, mRNA, LNP-s, PF, B ooster, [...] 06/15/2023 2:00 PM EST Office Visit Cardiology, [facility] 132 [facility] [place] [address] Blessing Coronel CRNP 132 [facility] [place] [address] Nonrheumatic aortic valve stenosis*; S/P TAVR (transcatheter aortic valve replacement); LBBB (left bundle branch block); Mobitz type 2 second degree AV block; PAF (paroxysmal atrial fibrillation) ([facility]); Atrial flutter, unspecified type (HCC); Nonobstructive atherosclerosis of coronary artery 06/20/2023 11:30 AM EST Nurse Only Cardiac Rehab, [facility] [address] [place] [address] [facility], Nurse Cardiac Rehab [address] [place] [address] 06/22/2023 11:30 AM EST Nurse Only Cardiac Rehab, [address] [place] [address] Gjsh, Nurse Cardiac Rehab [facility] [place] [address] 06/25/2023 10:20 AM EST Office Visit Pulmonary Medicine, [facility] 132 [facility] [place] [address] Juan Pablo Marsh MD [address] [facility] [place] [address] 06/27/2023 11:30 AM EST Nurse Only Cardiac Rehab, [address] [place] [address] Gjsh, Nurse Cardiac Rehab [address] [place] [address], [place] [address] 06/29/2023 11:30 AM EST Nurse Only Cardiac Rehab, [address] [place] [address] Gjsh, Nurse Cardiac Rehab [address] [place] [address], [place] [address] 07/02/2023 7:15 AM EST Cardiac Studies Cardiac Studies, [address] [place] [address] 07/02/2023 11:30 AM EST Nurse Only Cardiac Rehab, [address] [place] [address] Gjsh, Nurse Cardiac Rehab [address] [place] [address], [place] [address] 07/04/2023 11:30 AM EST Nurse Only Cardiac Rehab, [address] [place] [address] Gjsh, Nurse Cardiac Rehab [address] [place] [address], [place] [address] 07/06/2023 11:30 AM EST Nurse Only Cardiac Rehab, [facility] [address] [place] [address] Gjsh, Nurse Cardiac Rehab [facility] [place] [address] 07/09/2023 11:30 AM EST Nurse Only Cardiac Rehab, [facility] [address] [place] [address], [place] [address] Gjsh, Nurse Cardiac Rehab [address] [place] [address], [place] [address] 07/09/2023 2:20 PM EST Office [facility] [place] [address] Cara Brantley 132 [facility] [place] [address] 07/11/2023 11:30 AM EST Nurse Only Cardiac Rehab, [address] [place] [address] Gjsh, Nurse Cardiac Rehab [address] [place] [address], [place] [address] 07/13/2023 11:30 AM EST Nurse Only Cardiac Rehab, [address] [place] [address] Gjsh, Nurse Cardiac Rehab [address] [place] [address], [place] [address] 07/16/2023 11:30 AM EST Nurse Only Cardiac Rehab, [address] [place] [address] Gjsh, Nurse Cardiac Rehab [address] [place] [address], [place] [address] 07/18/2023 11:30 AM EST Nurse Only Cardiac Rehab, [address] [place] [address] Gjsh, Nurse Cardiac Rehab [address] [place] [address], [place] [address] 07/20/2023 11:30 AM EST Nurse Only Cardiac Rehab, [address] [place] [address] Gjsh, Nurse Cardiac Rehab [address] [place] [address], [place] [address] 07/23/2023 11:30 AM EST Nurse Only Cardiac Rehab, [address] [place] [address] Gjsh, Nurse Cardiac Rehab [address] [place] [address], [place] [address] 07/25/2023 11:30 AM EST Nurse Only Cardiac Rehab, [address] [place] [address] Gjsh, Nurse Cardiac Rehab [address] [place] [address], [place] [address] 07/27/2023 11:30 AM EST Nurse Only Cardiac Rehab, [address] [place] [address] Gjsh, Nurse Cardiac Rehab [address] [place] [address], [place] [address] 07/30/2023 11:30 AM EST Nurse Only Cardiac Rehab, [address] [place] [address] Gjsh, Nurse Cardiac Rehab [address] [place] [address], [place] [address] 08/01/2023 11:30 AM EST Nurse Only Cardiac Rehab, [address] [place] [address] Gjsh, Nurse Cardiac Rehab [address] [place] [address], [place] [address] 08/03/2023 11:30 AM EST Nurse Only Cardiac Rehab, [address] [place] [address] Gjsh, Nurse Cardiac Rehab [address] [place] [address] 08/06/2023 11:30 AM EST Nurse Only Cardiac Rehab, [facility] [address] [place] [address], [place] [address] Gjsh, Nurse Cardiac Rehab [address] [place] [address], [place] [address] 08/08/2023 11:30 AM EST Nurse Only Cardiac Rehab, [address] [place] [address] Gjsh, Nurse Cardiac Rehab [address] [place] [address], [place] [address] 08/10/2023 11:30 AM EST Nurse Only Cardiac Rehab, [address] [place] [address] Gjsh, Nurse Cardiac Rehab [address] [place] [address], [place] [address] 08/13/2023 11:30 AM EST Nurse Only Cardiac Rehab, [address] [place] [address] Gjsh, Nurse Cardiac Rehab [address] [place] [address], [place] [address] 08/15/2023 11:30 AM EST Nurse Only Cardiac Rehab, [address] [place] [address] Gjsh, Nurse Cardiac Rehab [address] [place] [address], [place] [address] 08/17/2023 11:30 AM EST Nurse Only Cardiac Rehab, [address] [place] [address] Gjsh, Nurse Cardiac Rehab [address] [place] [address], [place] [address] 08/20/2023 11:30 AM EST Nurse Only Cardiac Rehab, [facility] [address] [place] [address] Gjsh, Nurse Cardiac Rehab [address] [place] [address] 08/22/2023 11:30 AM EST Nurse Only Cardiac Rehab, [facility] [address] [place] [address], [place] [address] Gjsh, Nurse Cardiac Rehab [address] [place] [address] 08/24/2023 11:30 AM EST Nurse Only Cardiac Rehab, [address] [place] [address] Gjsh, Nurse Cardiac Rehab [address] [place] [address], [place] [address] 08/27/2023 11:30 AM EDT Nurse Only Cardiac Rehab, [address] [place] [address] Gjsh, Nurse Cardiac Rehab [address] [place] [address], [place] [address] 08/29/2023 11:30 AM EDT Nurse Only Cardiac Rehab, [address] [place] [address] Gjsh, Nurse Cardiac Rehab [address] [place] [address], [place] [address] 09/14/2023 1:20 PM EDT Office Visit Family Practice [facility] 132 [place] [address] Dewayne Pena MD 132 [place] [address] 10/02/2023 1:40 PM EDT Office Visit Rheumatology [address] [place] [address] Timo Guzman MD [address] [place] [address] [place] [address] 04/15/2024 10:40 AM EDT Office Visit Dermatology [facility] 68 [place] [address] Jonnathan House PA-C [address] [place] [address], [place] [address] Pending Results Name Type Priority Associated Diagnoses Date /Time BASIC METABOLIC PANEL Lab Routine History of transcatheter aortic valve replacement (TAVR) 06/15/2023 1:13 PM EST Health Maintenance Due Date Last Done Comments [...] D LEVEL ONCE IN A LIFETIME-USE SMARTSET# [id number] Completed 11/03/2022, 11/20/2018 Influenza Vaccine (FLU shot) [...] this encounter Medical Devices Implanted Type Area Chimney Builder Helper Device Identifier Shelf Expiration Date Model / Serial / Lot Cath Thermodilution 6fr - [id number] Implanted:Qty: 1 on 03/07/2023 by Armando Beltran MD at [facility] [employer] KRISTYN [id number] 10/10/2024 [id number] / / [id number] Valve Aortic Transcath Fx 34mm - [id number] Implanted:Qty: 1 on 05/03/2023 by Armando Beltran MD at [facility] [employer] [id number] 08/10/2024 EVOLUTFX- 34 / [id number] / [id number] documented as of this encounter Procedures Procedure Name Priority Date/Time Associated Diagnosis Comments CBC Routine 06/15/2023 1:13 PM EST History of transcatheter aortic valve replacement (TAVR) documented in this encounter Results * (ABNORMAL) CBC (06/15/2023 1:13 PM EST) WBC 6.22 4.00 - 10.80 K/uL 06/15/2023 1:20 PM EST [facility] 57-10 RBC 3.73 4.50 - 5.25 M/uL 06/15/2023 1:20 PM EST [facility] 57-10 HGB 13.3(L) 14.0 - 16.8 g/dL 06/15/2023 1:20 PM EST [facility] 57-10 HCT 38.8(L) 40.0 - 48.4 % 06/15/2023 1:20 PM EST [facility] 57-10 MCV 104.0 82.0 - 99.5 fL 06/15/2023 1:20 PM EST [facility] 57-10 MCH 35.7 27.0 - 34.0 pg 06/15/2023 1:20 PM EST [facility] 57-10 MCHC 34.3 32.0 - 36.0 g/dL 06/15/2023 1:20 PM EST [facility] 57-10 RDW 14.8 11.5 - 15.5 % 06/15/2023 1:20 PM EST [facility] 57-10 PLT 230 140 - 400 K/uL 06/15/2023 1:20 PM EST [facility] 57-10 MPV 11.4 6.6 - 11.1 fL 06/15/2023 1:20 PM EST [facility] 57-10 Blood Venous blood specimen / Unknown Venipuncture / Unknown 06/15/2023 1:13 PM EST 06/15/2023 1:13 PM EST Blessing [facility] BLOOD ORDER [facility] 57-10 132 [place] [address] documented in this encounter Visit Diagnoses Diagnosis Nonrheumatic aortic [...] type (HCC) Nonobstructive atherosclerosis of coronary artery History of transcatheter aortic valve replacement (TAVR) documented in this encounter Advance Directives Documents on File Type Date Recorded Patient E Commerce Marketing Analyst Expl anation POLST 03/06/2022 [place] OR DERS [...] Direct lorenzo occurred with: Patient Care Teams Auditor Supervisor Relationship Specialty Start Date End Date Dewayne Pena MD 132 [place] [address] PCP - General Family Medicine 04/30/23 documented as of this encounter
--- OUTSIDE RECORDS SUMMARY | 2023-10-08 23:11 | External Medical Summary | Summary of Care ---
Author Name Unknown Organization [facility] Address [address] [place] [address] Phone [phone] Care Team Providers Care Food Service Attendant Name Role Phone Dewayne Pena MD Primary Care Provider [phone] Reason for Visit * Reason Comments Cardiac Rehab * Evaluate & Treat - Unlimited Visits (Within 30 days (routine)) - Authorized Specialty Diagnoses / Procedures Referred By Contac t Referred To Contact CARDIAC REHAB / Cardiology Diagnoses S/P TAVR (transcatheter aortic valve replacement) Status post cardiac surgery Camille Vieyra DO [address] [place] [address] Referral ID Status Reason Start Date Expiration Date Visits Requested Visits Authorized [id number] Authorized Specialty Services Required 3 [phone] Encounter Details Date Type Department Care Team (Late st Contact Info) Description 06/13/2023 11:30 AM EST Nurse Only Cardiac Rehab, [place] [address] [facility], Nurse Cardiac Rehab [address] [place] [address] Cardiac Rehab Allergies No known active allergiesdocumented as of this encounter (statuses as of 06/14/2023) Medications Medication Sig Dispensed Refills Start Date [...] as of this encounter (statuses as of 06/14/2023) Active Problems Problem Noted Date Diagnosed Date [...] disease) 05/20/2019 Coronary artery disease invo lving [place] coronary artery of [place] heart without angina pectoris 03/24/2019 Nonrheumatic mitral valve stenosis 03/24/2019 H/O Hodgkin's lymphoma 07/05/2018 Acquired hypothyroidism 07/05/2018 documented as of this encounter (statuses as of 06/14/2023) Resolved Problems Problem Noted Date Diagnosed Date [...] see below) BCC R forehead 2008 ([facility]) Prediabetes 02/28/2021 02/01/2023 Overview: Per Prediabetes protocol Moderate protein malnutrition 12/15/2019 03/14/2023 Ankylosing spondylitis of cervical region 12/15/2019 07/07/2022 Moderate aortic stenosis 03/24/2019 H/O atrial fibrillation with out current medication 07/05/2018 03/14/2023 documented as of this encounter (statuses as of 06/14/2023) Immunizations Name Administration Dates Next Due COVID-19 mRNA, LNP-s, No Pre serve, 2-Dose Series (Moderna) 08/21/2020,07/17/2020 COVID-19, MRNA-LNP, 23-24, P F, 30 MCG/0.3 mL, 12 YRS AND ABOVE, IM ([employer]) 03/27/2023 COVID-19, mRNA, LNP-s, PF, B ooster, [...] 11:30 AM EST Nurse Only Cardiac Rehab, [address] [address] [facility], Nurse Cardiac Rehab [address] [place] [address] 06/15/2023 1:30 PM EST Laboratory Laboratory, [facility] [id number] [facility] 132 [facility] [place] [address] 06/15/2023 2:00 PM EST Office Visit Cardiology, [facility] 132 [facility] [place] [address] Blessing Coronel CRNP [address] [facility] [address] 06/20/2023 11:30 AM EST Nurse Only Cardiac Rehab, [address] [address] [facility], Nurse Cardiac Rehab [address] [place] [address] 06/22/2023 11:30 AM EST Nurse Only Cardiac Rehab, [address] [address] [facility], Nurse Cardiac Rehab [address] [place] [address] 06/25/2023 10:20 AM EST Office Visit Pulmonary Medicine, [facility] 132 [facility] [place] [address] Juan Pablo Marsh MD [address] [place] [address] 06/25/2023 11:30 AM EST Nurse Only Cardiac Rehab, [address] [place] [address] Gjsh, Nurse Cardiac Rehab [address] [place] [address], [place] [address] 06/27/2023 11:30 AM EST Nurse Only Cardiac Rehab, [address] [place] [address] Gjsh, Nurse Cardiac Rehab [address] [place] [address], [place] [address] 06/29/2023 11:30 AM EST Nurse Only Cardiac Rehab, [address] [place] [address] Gjsh, Nurse Cardiac Rehab [address] [place] [address], [place] [address] 07/02/2023 7:15 AM EST Cardiac Studies Cardiac Studies, [facility] 132 [facility] [place] [address] 07/02/2023 11:30 AM EST Nurse Only Cardiac Rehab, [address] [place] [address] Gjsh, Nurse Cardiac Rehab [address] [place] [address], [place] [address] 07/04/2023 11:30 AM EST Nurse Only Cardiac Rehab, [address] [place] [address] Gjsh, Nurse Cardiac Rehab [address] [place] [address], [place] [address] 07/06/2023 11:30 AM EST Nurse Only Cardiac Rehab, [address] [place] [address] Gjsh, Nurse Cardiac Rehab [address] [place] [address], [place] [address] 07/09/2023 11:30 AM EST Nurse Only Cardiac Rehab, [address] [place] [address] Gjsh, Nurse Cardiac Rehab [address] [place] [address], [place] [address] 07/09/2023 2:20 PM EST Office Visit Sleep Disorders Ctr [facility] 132 [address] Pérez [place] [id number] Cara Brantley, [address] [place] [address] 07/11/2023 11:30 AM EST Nurse Only Cardiac Rehab, [address] [place] [address] Gjsh, Nurse Cardiac Rehab [address] [place] [address], [place] [address] 07/13/2023 11:30 AM EST Nurse Only Cardiac Rehab, [address] [place] [address] Gjsh, Nurse Cardiac Rehab [address] [place] [address], [place] [address] 07/16/2023 11:30 AM EST Nurse Only Cardiac Rehab, [address] [place] [address] Gjsh, Nurse Cardiac Rehab [address] [place] [address], [place] [address] 07/18/2023 11:30 AM EST Nurse Only Cardiac Rehab, [address] [place] [address] Gjsh, Nurse Cardiac Rehab [address] [place] [address], [place] [address] 07/20/2023 11:30 AM EST Nurse Only Cardiac Rehab, [address] [place] [address] Gjsh, Nurse Cardiac Rehab [address] [place] [address] 07/23/2023 11:30 AM EST Nurse Only Cardiac Rehab, [facility] [address] [place] [address] Gjsh, Nurse Cardiac Rehab [address] [place] [address], [place] [address] 07/25/2023 11:30 AM EST Nurse Only Cardiac Rehab, [address] [place] [address] Gjsh, Nurse Cardiac Rehab [address] [place] [address], [place] [address] 07/27/2023 11:30 AM EST Nurse Only Cardiac Rehab, [address] [place] [address] Gjsh, Nurse Cardiac Rehab [address] [place] [address], [place] [address] 07/30/2023 11:30 AM EST Nurse Only Cardiac Rehab, [address] [place] [address] Gjsh, Nurse Cardiac Rehab [address] [place] [address], [place] [address] 08/01/2023 11:30 AM EST Nurse Only Cardiac Rehab, [address] [place] [address] Gjsh, Nurse Cardiac Rehab [address] [place] [address], [place] [address] 08/03/2023 11:30 AM EST Nurse Only Cardiac Rehab, [address] [place] [address] Gjsh, Nurse Cardiac Rehab [address] [place] [address], [place] [address] 08/06/2023 11:30 AM EST Nurse Only Cardiac Rehab, [facility] [address] [place] [address] Gjsh, Nurse Cardiac Rehab [address] [place] [address] 08/08/2023 11:30 AM EST Nurse Only Cardiac Rehab, [facility] [address] [place] [address], [place] [address] Gjsh, Nurse Cardiac Rehab [facility] [place] [address] 08/10/2023 11:30 AM EST Nurse Only Cardiac Rehab, [address] [place] [address] Gjsh, Nurse Cardiac Rehab [address] [place] [address], [place] [address] 08/13/2023 11:30 AM EST Nurse Only Cardiac Rehab, [place] [address] [place] [address] Gjsh, Nurse Cardiac Rehab [address] [place] [address], [place] [address] 08/15/2023 11:30 AM EST Nurse Only Cardiac Rehab, [place] [address] [place] [address] Gjsh, Nurse Cardiac Rehab [address] [place] [address], [place] [address] 08/17/2023 11:30 AM EST Nurse Only Cardiac Rehab, [address] [place] [address] Gjsh, Nurse Cardiac Rehab [address] [place] [address], [place] [address] 08/20/2023 11:30 AM EST Nurse Only Cardiac Rehab, [facility] [address] [place] [address], [place] [address] Gjsh, Nurse Cardiac Rehab [address] [place] [address], [place] [address] 08/22/2023 11:30 AM EST Nurse Only Cardiac Rehab, [facility] [address] [place] [address] Gj, Nurse Cardiac Rehab [address] [place] [address] 08/24/2023 11:30 AM EST Nurse Only Cardiac Rehab, [address] [address] Gj, Nurse Cardiac Rehab [address] [place] [address] 08/27/2023 11:30 AM EDT Nurse Only Cardiac Rehab, [address] [address] [facility], Nurse Cardiac Rehab [address] [place] [address] 09/14/2023 1:20 PM EDT Office Visit Family Practice [facility] 132 [facility] [place] [address] Dewayne Pena MD 132 [facility] [place] [address] 10/02/2023 1:40 PM EDT Office Visit Rheumatology [address] [place] [address] Timo Guzman MD [address] [place] [address] 04/15/2024 10:40 AM EDT Office Visit Dermatology [facility] [address] [place] [address] Jonnathan House PA-C 68 [place], [place] [id number] Health Maintenance Due Date Last Done Comments [...] D LEVEL ONCE IN A LIFETIME-USE SMARTSET# [id number] Completed 11/03/2022, 11/20/2018 Influenza Vaccine (FLU shot) [...] this encounter Medical Devices Implanted Type Area Linux Network Systems Administrator Device Identifier Shelf Expiration Date Model / Serial / Lot Cath Thermodilution 6fr - [id number] Implanted:Qty: 1 on 03/07/2023 by Armando Beltran MD at [facility] [employer] KRISTYN [id number] 10/10/2024 [id number] / / [id number] Valve Aortic Transcath Fx 34mm - [id number] Implanted:Qty: 1 on 05/03/2023 by Armando Beltran MD at [facility] [employer] [id number] 08/10/2024 EVOLUTFX- 34 / [id number] / [id number] documented as of this encounter Visit Diagnoses Diagnosis S/P TAVR (transcatheter aortic valve replacement)- Primary Heart valve replaced by other means documented in this encounter Advance Directives Documents on File Type Date Recorded Patient Director Of Family Service Center Expl anation POLST 03/06/2022 [place] OR DERS FOR LIFE-SUSTAINING TREATMENT POLST 12/13/2021 [place] OR DERS FOR LIFE-SUSTAINING TREATMENT Latest Code [...] Direct lorenzo occurred with: Patient Care Teams Food Service Attendant Relationship Specialty Start Date End Date Dewayne Pena MD 132 [place] [address] PCP - General Family Medicine 04/30/23 documented as of this encounter
--- OUTSIDE RECORDS SUMMARY | 2023-10-08 23:11 | External Medical Summary | Summary of Care ---
Author Name Unknown Organization [facility] Address [address] [place] [address] Phone [phone] Care Team Providers Care Economic Forecaster Name Role Phone Dewayne Pena MD Primary Care Provider [phone] Reason for Referral * Precert (Within 10 [...] ECHO, COMPLETE (2D), TRANS-THORACIC Blessing Coronel CRNP [address] [place] [address] Referral ID Status Reason Start Date Expiration Date V isits Requested Visits Authorized [id number] Authorized Precert 05/19/2024 999 999 * Evaluate [...] artery Blessing Coronel CRNP [address] [place] [address] Referral ID Status Reason Start Date Expiration Date Visits Requested Visits Authorized [id number] Authorized Specialty Services Required 3 999 999 Question Answer Referral Priority Within 10 days (routine) Where should this appointment be scheduled? 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 S/p TAVR Reason for Visit * Reason Comments Follow Up Encounter Details Date Type Department Care Team (Latest Contact Info) Description 06/15/2023 2:00 PM EST Office Visit Cardiology, [facility] [address] [place] [address] Blessing Coronel CRNP [address] [place] [address] Nonrheumatic aortic valve stenosis*; S/P TAVR (transcatheter [...] disease) 05/20/2019 Coronary artery disease invo lving [place] coronary artery of [place] heart without angina pectoris 03/24/2019 Nonrheumatic mitral [...] prior, see below) BCC R forehead 2008 ([facility]) Prediabetes 02/28/2021 02/01/2023 Overview: Per [...] MCG/0.3 mL, 12 YRS AND ABOVE, IM ([facility]) 03/27/2023 COVID-19, mRNA, LNP-s, PF, B ooster, 100mcg/0.5mg (Moderna) 10/13/2021,04/13/2021 Covid-19, Mrna, Lnp-s, Pf, B ivalent, 30 Mcg, IM, 12 yrs and above ([employer]) 11/09/2022,03/10/2022 PPD 12/29/2020,12/24/2018,12/03/2018 Pneumococcal Conjugate Vacc, 13 [...] Patient disposition: 1 month post TAVR Primary Coil Inspector Dr. Graves Past Medical History: H/o severe [...] JULIUS, and Raynaud's who was admitted to [facility] for post-procedural monitoring s/p TAVR (# 34mm [...] a 1st degree AV block with a HI interval of 286. As such metoprolol was held on discharge and patient was ordered a Continuous crude tester (Zio patch AT) to be picked up [...] (HCC) Cardiac arrhythmia Coronary artery disease involving [place] coronary artery of [place] heart without angina pectoris 03/24/2019 Hodgkin's disease (HCC) 1976 s/p radiation Hx of melanoma of skin 03/24/2021 Hx MM date 2013, Depth unknown, no SLN, Location R roman catholic ILD (interstitial lung disease) (HCC) Moderate aortic [...] [facility] EGD, FLEXIBLE, DIAGNOSTIC 05/21/2019 reflux / [facility] MUSCLE BIOPSY, DEEP Left 04/11/2022 BIOPSY MUSCLE DEEP performed by Sadiq Kennedy MD at OR [facility] REMOVAL OF SPLEEN, TOTAL 1978 Due to Hodgkin's disease REPLACE AORTIC VALVE, PERCUTANEOUS FEMORAL Bilateral 05/03/2023 REPLACE AORTIC VALVE, PERCUTANEOUS FEMORAL performed by Armando Beltran MD at [facility] REPLACE AORTIC VALVE, PERCUTANEOUS FEMORAL Bilateral 05/03/2023 REPLACE AORTIC VALVE, PERCUTANEOUS FEMORAL performed by Cisco Herrera MD, PhD at [facility] TOTAL HIP REPLACEMENT & PROSTHESIS Left 11/28/2021 [...] systolic pressure is 52mm Hg. Cath at [facility]-- PRE TAVR 03/07/2023 HANNAH at [facility] with Dr. Graves Impression/Plan: 1. Nonrheumatic aortic [...] This chart was completed in part utilizing [employer] Speech Voice Recognition Software. Grammatical errors, random [...] AM EST Nurse Only Cardiac Rehab, [address] [address] [facility], Nurse Cardiac Rehab [address] [place] [address] 06/22/2023 11:30 AM EST Nurse Only Cardiac Rehab, [address] [address] [facility], Nurse Cardiac Rehab [address] [place] [address] 06/25/2023 10:20 AM EST Office Visit Pulmonary Medicine, [facility] 132 [facility] [place] [address] Juan Pablo Marsh MD [address] [facility] [place] [address] 06/27/2023 11:30 AM EST Nurse Only Cardiac Rehab, [address] [address] [facility], Nurse Cardiac Rehab [address] [place] [address] 06/29/2023 11:30 AM EST Nurse Only Cardiac Rehab, [address] [address] [facility], Nurse Cardiac Rehab [address] [place] [address] 07/02/2023 7:15 AM EST Cardiac Studies Cardiac Studies, [facility] 132 [facility] [place] [address] 07/02/2023 11:30 AM EST Nurse Only Cardiac Rehab, [address] [place] [address] G[facility], Nurse Cardiac Rehab [address] [place] [address], [place] [address] 07/04/2023 11:30 AM EST Nurse Only Cardiac Rehab, [address] [place] [address] G[place], Nurse Cardiac Rehab [address] [place] [address], [place] [address] 07/06/2023 11:30 AM EST Nurse Only Cardiac Rehab, [address] [place] [address] G[facility], Nurse Cardiac Rehab [address] [place] [address], [place] [address] 07/09/2023 11:30 AM EST Nurse Only Cardiac Rehab, [address] [place] [address] G[place]sh, Nurse Cardiac Rehab [address] [place] [address] 07/09/2023 2:20 PM EST Office Visit Sleep Disorders Ctr [facility] 132 [facility] [place] [address] Cara Brantley, 132 [facility] [place] [address] 07/11/2023 11:30 AM EST Nurse Only Cardiac Rehab, [address] [place] [address] Gj[facility], Nurse Cardiac Rehab [address] [place] [address], [place] [address] 07/13/2023 11:30 AM EST Nurse Only Cardiac Rehab, [address] [place] [address] Gjsh, Nurse Cardiac Rehab [address] [place] [address], [place] [address] 07/16/2023 11:30 AM EST Nurse Only Cardiac Rehab, [facility] [address] [place] [address], [place] [address] Gjsh, Nurse Cardiac Rehab [address] [place] [address], [place] [address] 07/18/2023 11:30 AM EST Nurse Only Cardiac Rehab, [address] [place] [address] Gjsh, Nurse Cardiac Rehab [address] [place] [address], [place] [address] 07/20/2023 11:30 AM EST Nurse Only Cardiac Rehab, [address] [place] [address] Gjsh, Nurse Cardiac Rehab [address] [place] [address], [place] [address] 07/23/2023 11:30 AM EST Nurse Only Cardiac Rehab, [address] [place] [address] Gjsh, Nurse Cardiac Rehab [address] [place] [address], [place] [address] 07/25/2023 11:30 AM EST Nurse Only Cardiac Rehab, [address] [place] [address] Gjsh, Nurse Cardiac Rehab [address] [place] [address], [place] [address] 07/27/2023 11:30 AM EST Nurse Only Cardiac Rehab, [address] [place] [address] Gjsh, Nurse Cardiac Rehab [address] [place] [address], [place] [address] 07/30/2023 11:30 AM EST Nurse Only Cardiac Rehab, [facility] [address] [place] [address], [place] [address] Gjsh, Nurse Cardiac Rehab [address] [place] [address] 08/01/2023 11:30 AM EST Nurse Only Cardiac Rehab, [facility] [address] [place] [address], [place] [address] Gjsh, Nurse Cardiac Rehab [address] [place] [address] 08/03/2023 11:30 AM EST Nurse Only Cardiac Rehab, [address] [place] [address] Gjsh, Nurse Cardiac Rehab [address] [place] [address], [place] [address] 08/06/2023 11:30 AM EST Nurse Only Cardiac Rehab, [facility] [address] [place] [address] Gjsh, Nurse Cardiac Rehab [address] [place] [address], [place] [address] 08/08/2023 11:30 AM EST Nurse Only Cardiac Rehab, [place] [address] [place] [address] Gjsh, Nurse Cardiac Rehab [address] [place] [address], [place] [address] 08/10/2023 11:30 AM EST Nurse Only Cardiac Rehab, [address] [place] [address] Gjsh, Nurse Cardiac Rehab [address] [place] [address], [place] [address] 08/13/2023 11:30 AM EST Nurse Only Cardiac Rehab, [address] [place] [address] Gjsh, Nurse Cardiac Rehab [address] [place] [address], [place] [address] 08/15/2023 11:30 AM EST Nurse Only Cardiac Rehab, [address] [place] [address] Gjsh, Nurse Cardiac Rehab [address] [place] [address], [place] [address] 08/17/2023 11:30 AM EST Nurse Only Cardiac Rehab, [address] [place] [address] Gjsh, Nurse Cardiac Rehab [address] [place] [address], [place] [address] 08/20/2023 11:30 AM EST Nurse Only Cardiac Rehab, [address] [place] [address] Gjsh, Nurse Cardiac Rehab [address] [place] [address], [place] [address] 08/21/2023 2:15 PM EST Office Visit Cardiology, [facility] 132 [facility] [place] [address] Izzy Patiño, [address] [place] [address] 08/22/2023 11:30 AM EST Nurse Only Cardiac Rehab, [address], [place] [address] Gjsh, Nurse Cardiac Rehab [address] [place] [address], [place] [address] 08/24/2023 11:30 AM EST Nurse Only Cardiac Rehab, [address], [place] [address] Gjsh, Nurse Cardiac Rehab [address] [place] [address], [place] [address] 08/27/2023 11:30 AM EDT Nurse Only Cardiac Rehab, [address] [place] [address] [facility], Nurse Cardiac Rehab [address] [place] [address] 08/29/2023 11:30 AM EDT Nurse Only Cardiac Rehab, [place] [address] [place] [address] [facility], Nurse Cardiac Rehab [address] [place] [address] 09/14/2023 1:20 PM EDT Office Visit Family [facility] [address] [place] [address] Dewayne Pena MD 132 [facility] [place] [address] 10/02/2023 1:40 PM EDT Office Visit Rheumatology [address] [place] [address] Timo Guzman MD [address] [place] [address] [place] [address] 04/15/2024 10:40 AM EDT Office Visit Dermatology [facility] [address] [place] [address] Jonnathan House PA-C [address] [place] [address] Scheduled Orders Name Type Priority Associated [...] D LEVEL ONCE IN A LIFETIME-USE SMARTSET# [id number] Completed 11/03/2022, 11/20/2018 Influenza Vaccine (FLU shot) [...] this encounter Medical Devices Implanted Type Area College Advisor Device Identifier Shelf Expiration Date Model / Serial / Lot Cath Thermodilution 6fr - [id number] Implanted:Qty: 1 on 03/07/2023 by Armando Beltran MD at [facility] [employer] KRISTYN [id number] 10/10/2024 [id number] / / [id number] Valve Aortic Transcath Fx 34mm - [id number] Implanted:Qty: 1 on 05/03/2023 by Armando Beltran MD at [facility] [employer] [id number] 08/10/2024 EVOLUTFX- 34 / [id number] / [id number] documented as of this encounter Visit Diagnoses [...] Documents on File Type Date Recorded Patient Compliance Lead Expl anation POLST 03/06/2022 [place] [facility] FOR LIFE-SUSTAINING TREATMENT POLST 12/13/2021 [place] [facility] FOR LIFE-SUSTAINING TREATMENT Latest Code Status [...] Direct lorenzo occurred with: Patient Care Teams Economic Forecaster Relationship Specialty Start Date End Date Dewayne Pena MD [address] [place] [address] PCP - General Family Medicine 04/30/23 documented as of this encounter"
--- OUTSIDE RECORDS SUMMARY | 2023-10-08 23:11 | External Medical Summary | Summary of Care ---
Author Name Unknown Organization [facility] Address [address] [place] [address] Phone [phone] Care Team Providers Care Pantograph Machine Operator Name Role Phone Dewayne Pena MD Primary Care Provider [phone] Reason for Visit * Reason Comments Cardiac Rehab * Evaluate & Treat - Unlimited Visits (Within 30 days (routine)) - Authorized Specialty Diagnoses / Procedures Referred By Contac t Referred To Contact CARDIAC REHAB / Cardiology Diagnoses S/P TAVR (transcatheter aortic valve replacement) Status post cardiac surgery Camille Vieyra DO [address] [place] [address] Referral ID Status Reason Start Date Expiration Date Visits Requested Visits Authorized [id number] Authorized Specialty Services Required 3 999 999 Encounter Details Date Type Department Care Team (Late st Contact Info) Description 06/08/2023 11:30 AM EST Nurse Only Cardiac Rehab, [place] [address] [facility], Nurse Cardiac Rehab [address] [place] [address] Cardiac Rehab Allergies No known active allergiesdocumented as of this encounter (statuses as of 06/08/2023) Medications Medication Sig Dispensed Refills Start Date [...] as of this encounter (statuses as of 06/08/2023) Active Problems Problem Noted Date Diagnosed Date [...] disease) 05/20/2019 Coronary artery disease invo lving [place] coronary artery of [place] heart without angina pectoris 03/24/2019 Nonrheumatic mitral valve stenosis 03/24/2019 H/O Hodgkin's lymphoma 07/05/2018 Acquired hypothyroidism 07/05/2018 documented as of this encounter (statuses as of 06/08/2023) Resolved Problems Problem Noted Date Diagnosed Date [...] as of this encounter (statuses as of 06/08/2023) Immunizations Name Administration Dates Next Due COVID-19 mRNA, LNP-s, No Pre serve, 2-Dose Series (Moderna) 08/21/2020,07/17/2020 COVID-19, MRNA-LNP, 23-24, P F, 30 MCG/0.3 mL, 12 YRS AND ABOVE, IM ([employer]) 03/27/2023 COVID-19, mRNA, LNP-s, PF, B ooster, [...] Sign Reading Time Taken Comments Blood Pressure 124/64 06/08/2023 11:59 AM EST Pulse 88 06/08/2023 11:59 AM EST Temperature - - Respiratory Rate - - Oxygen Saturation - - Inhaled Oxygen Concentration - - Weight 64.4 kg (142 lb) 06/08/2023 11:59 AM EST Height - - Body Mass Index 18.73 05/14/2023 10:52 AM EST documented in this encounter Functional Status Functional Status Response Date of Assess ment Do you have serious difficul ty walking or climbing stairs? (5 years old or older) No 05/04/2023 documented as of this encounter Nursing Notes * Zoraida Del Rosario RN - 06/08/2023 11:59 AM EST Patient tolerated Cardiac Rehab exercise without difficulty. documented in this encounter Plan of Treatment Upcoming Encounters Date Type Department Care Team (Late st Contact Info) Description 06/13/2023 11:30 AM EST Nurse Only Cardiac Rehab, [facility] [address] [place] [address], [place] [address] Gj, Nurse Cardiac Rehab [address] [place] [address], [place] [address] 06/15/2023 11:30 AM EST Nurse Only Cardiac Rehab, [address] [place] [address] Gj, Nurse Cardiac Rehab [address] [place] [address] 06/15/2023 1:30 PM EST Laboratory Laboratory, [facility] 132 [place] [phone] [facility] [address] [place] [address] 06/15/2023 2:00 PM EST Office Visit Cardiology, [facility] [address] [place] [address] Blessing Coronel CRNP 132 [place] [address] 06/20/2023 11:30 AM EST Nurse Only Cardiac Rehab, [address] [place] [address] Gj, Nurse Cardiac Rehab [address] [place] [address], [place] [address] 06/22/2023 11:30 AM EST Nurse Only Cardiac Rehab, [address] [place] [address] Gjsh, Nurse Cardiac Rehab [address] [place] [address], [place] [address] 06/25/2023 10:20 AM EST Office Visit Pulmonary Medicine, [facility] 132 [facility] [place] [address] Juan Pablo Marsh MD [address] [place] [address] 06/25/2023 11:30 AM EST Nurse Only Cardiac Rehab, [address] [place] [address] Gjsh, Nurse Cardiac Rehab [address] [place] [address], [place] [address] 06/27/2023 11:30 AM EST Nurse Only Cardiac Rehab, [address] [place] [address] Gjsh, Nurse Cardiac Rehab [address] [place] [address], [place] [address] 06/29/2023 11:30 AM EST Nurse Only Cardiac Rehab, [address] [place] [address] Gjsh, Nurse Cardiac Rehab [address] [place] [address], [place] [address] 07/02/2023 7:15 AM EST Cardiac Studies Cardiac Studies, [facility] [place] [address] 07/02/2023 11:30 AM EST Nurse Only Cardiac Rehab, [address] [place] [address] Gjsh, Nurse Cardiac Rehab [address] [place] [address], [place] [address] 07/04/2023 11:30 AM EST Nurse Only Cardiac Rehab, [address] [place] [address] Gjsh, Nurse Cardiac Rehab [address] [place] [address], [place] [address] 07/06/2023 11:30 AM EST Nurse Only Cardiac Rehab, [facility] [address] [place] [address], [place] [address] Gjsh, Nurse Cardiac Rehab [address] [place] [address], [place] [address] 07/09/2023 11:30 AM EST Nurse Only Cardiac Rehab, [facility] [address] [place] [address], [place] [address] Gjsh, Nurse Cardiac Rehab [address] [place] [address], [place] [address] 07/09/2023 2:20 PM EST Office Visit Sleep Disorders Ctr [facility] [place] [phone] Cara Brantley [address] [facility] [place] [address] 07/11/2023 11:30 AM EST Nurse Only Cardiac Rehab, [address] [place] [address] Gjsh, Nurse Cardiac Rehab [address] [place] [address] 07/13/2023 11:30 AM EST Nurse Only Cardiac Rehab, [address] [place] [address] Gjsh, Nurse Cardiac Rehab [address] [place] [address], [place] [address] 07/16/2023 11:30 AM EST Nurse Only Cardiac Rehab, [address], [place] [address] Gjsh, Nurse Cardiac Rehab [address] [place] [address], [place] [address] 07/18/2023 11:30 AM EST Nurse Only Cardiac Rehab, [address] [address] Gjsh, Nurse Cardiac Rehab [address] [place] [address], [place] [address] 07/20/2023 11:30 AM EST Nurse Only Cardiac Rehab, [facility] [address] [place] [address], [place] [address] Gjsh, Nurse Cardiac Rehab [address] [place] [address], [place] [address] 07/23/2023 11:30 AM EST Nurse Only Cardiac Rehab, [address] [place] [address] Gjsh, Nurse Cardiac Rehab [address] [place] [address], [place] [address] 07/25/2023 11:30 AM EST Nurse Only Cardiac Rehab, [address] [place] [address] Gjsh, Nurse Cardiac Rehab [address] [place] [address], [place] [address] 07/27/2023 11:30 AM EST Nurse Only Cardiac Rehab, [address] [place] [address] Gjsh, Nurse Cardiac Rehab [address] [place] [address], [place] [address] 07/30/2023 11:30 AM EST Nurse Only Cardiac Rehab, [address] [place] [address] Gjsh, Nurse Cardiac Rehab [address] [place] [address], [place] [address] 08/01/2023 11:30 AM EST Nurse Only Cardiac Rehab, [address] [place] [address] Gjsh, Nurse Cardiac Rehab [address] [place] [address], [place] [address] 08/03/2023 11:30 AM EST Nurse Only Cardiac Rehab, [address] [place] [address] Gjsh, Nurse Cardiac Rehab [address] [place] [address], [place] [address] 08/06/2023 11:30 AM EST Nurse Only Cardiac Rehab, [address] [place] [address] Gjsh, Nurse Cardiac Rehab [address] [place] [address], [place] [address] 08/08/2023 11:30 AM EST Nurse Only Cardiac Rehab, [address] [place] [address] Gjsh, Nurse Cardiac Rehab [address] [place] [address], [place] [address] 08/10/2023 11:30 AM EST Nurse Only Cardiac Rehab, [address] [place] [address] Gjsh, Nurse Cardiac Rehab [address] [place] [address], [place] [address] 08/13/2023 11:30 AM EST Nurse Only Cardiac Rehab, [address] [place] [address] Gjsh, Nurse Cardiac Rehab [address] [place] [address], [place] [address] 08/15/2023 11:30 AM EST Nurse Only Cardiac Rehab, [address] [place] [address] Gjsh, Nurse Cardiac Rehab [address] [place] [address], [place] [address] 08/17/2023 11:30 AM EST Nurse Only Cardiac Rehab, [address] [place] [address] Gjsh, Nurse Cardiac Rehab [address] [place] [address], [place] [address] 08/20/2023 11:30 AM EST Nurse Only Cardiac Rehab, [facility] [address] [place] [address], [place] [address] Gjsh, Nurse Cardiac Rehab [address] [place] [address], [place] [address] 08/22/2023 11:30 AM EST Nurse Only Cardiac Rehab, [address] [place] [address] Gjsh, Nurse Cardiac Rehab [address] [place] [address], [place] [address] 08/24/2023 11:30 AM EST Nurse Only Cardiac Rehab, [address] [place] [address] Gjsh, Nurse Cardiac Rehab [address] [place] [address], [place] [address] 08/27/2023 11:30 AM EDT Nurse Only Cardiac Rehab, [address] [place] [address] Gjsh, Nurse Cardiac Rehab [address] [place] [address], [place] [address] 09/14/2023 1:20 PM EDT Office Visit Family Practice [facility] [address] [facility] [place] [address] Dewayne Pena MD [address] [facility] [place] [address] 10/02/2023 1:40 PM EDT Office Visit Rheumatology [address] [place] [address] Timo Guzman MD [address] [place] [address] [place] [address] 04/15/2024 10:40 AM EDT Office Visit [address] [phone] Jonnathan House PA-C [address] [place] [address] Health Maintenance Due Date Last Done Comments [...] D LEVEL ONCE IN A LIFETIME-USE SMARTSET# 23297 Completed 11/03/2022, 11/20/2018 Influenza Vaccine (FLU shot) [...] this encounter Medical Devices Implanted Type Area Glass Melt Operator Device Identifier Shelf Expiration Date Model / Serial / Lot Cath Thermodilution 6fr - [id number] Implanted:Qty: 1 on 03/07/2023 by Armando Beltran MD at [facility] [employer] KRISTYN [id number] 10/10/2024 [id number] / / [id number] Valve Aortic Transcath Fx 34mm - [id number] Implanted:Qty: 1 on 05/03/2023 by Armando Beltran MD at [facility] [employer] [id number] 08/10/2024 EVOLUTFX- 34 / [id number] / [id number] documented as of this encounter Visit Diagnoses Diagnosis S/P TAVR (transcatheter aortic valve replacement)- Primary Heart valve replaced by other means documented in this encounter Advance Directives Documents on File Type Date Recorded Patient Multi Share Program Coordinator Expl anation POLST 03/06/2022 [place] OR DERS [...] Direct lorenzo occurred with: Patient Care Teams Pantograph Machine Operator Relationship Specialty Start Date End Date Dewayne Pena MD [address] [place] [address] PCP - General Family Medicine 04/30/23 documented as of this encounter
--- OUTSIDE RECORDS SUMMARY | 2023-10-08 23:12 | External Medical Summary ---
Author Name Unknown Address Unknown Organization [id number]:[facility] - [address] [facility] [place] [facility] [address] Laboratory Report Ordering Provider Test Date Status NOMI MARES 05/03/2023 17:25:00 Final Observation Date Value Abnormality Reference (Units ) Status WBC, Total 05/03/2023 17:25:00 9.56 4.00-10.80 (K/uL) Final RBC 05/03/2023 17:25:00 3.49 4.50-5.25 (M/uL) Final Hemoglobin 05/03/2023 17:25:00 12.4 Below low normal 14.0-16.8 (g/dL) Final HCT 05/03/2023 17:25:00 37.4 Below low normal 40.0-48.4 (%) Final MCV 05/03/2023 17:25:00 107.2 82.0-99.5 (fL) Final MCH 05/03/2023 17:25:00 35.5 27.0-34.0 (pg) Final MCHC 05/03/2023 17:25:00 33.2 32.0-36.0 (g/dL) Final RDW 05/03/2023 17:25:00 14.3 11.5-15.5 (%) Final Platelets 05/03/2023 17:25:00 178 140-400 (K/uL) Final MPV 05/03/2023 17:25:00 11.8 6.6-11.1 (fL) Final Nucleated erythrocytes/100 leukocytes [Ratio] in Blood by Automated count 05/03/2023 17:25:00 0 <=0 (/100 WBCs) Final Performing Location [facility] - [address] [facility] [address]
--- OUTSIDE RECORDS SUMMARY | 2023-10-08 23:12 | External Medical Summary ---
Author Name Unknown Address Unknown Organization [id number]:[facility] [place] [address] [facility] [place] [facility] [address] Laboratory Report Ordering Provider Test Date Status NOMI MARES 05/05/2023 05:46:00 Final Observation Date Value Abnormality Reference (Units ) Status WBC, Total 05/05/2023 05:46:00 10.56 4.00-10.80 (K/uL) Final RBC 05/05/2023 05:46:00 3.54 4.50-5.25 (M/uL) Final Hemoglobin 05/05/2023 05:46:00 12.5 Below low normal 14.0-16.8 (g/dL) Final HCT 05/05/2023 05:46:00 38.3 Below low normal 40.0-48.4 (%) Final MCV 05/05/2023 05:46:00 108.2 82.0-99.5 (fL) Final MCH 05/05/2023 05:46:00 35.3 27.0-34.0 (pg) Final MCHC 05/05/2023 05:46:00 32.6 32.0-36.0 (g/dL) Final RDW 05/05/2023 05:46:00 14.6 11.5-15.5 (%) Final Platelets 05/05/2023 05:46:00 151 140-400 (K/uL) Final MPV 05/05/2023 05:46:00 12.6 6.6-11.1 (fL) Final Nucleated erythrocytes/100 leukocytes [Ratio] in Blood by Automated count 05/05/2023 05:46:00 0 <=0 (/100 WBCs) Final Performing Location [facility] [place] [address] [facility] [address]
--- OUTSIDE RECORDS SUMMARY | 2023-10-08 23:12 | External Medical Summary | Summary of Care ---
Author Name Unknown Organization [facility] Address [address] [place] [address] Phone [phone] Care Team Providers Care Fusing Line Inspector Name Role Phone Dewayne Pena MD Primary Care Provider [phone] Encounter Details Date Type Department Care Team (Late st Contact Info) Description 05/08/2023 Documentation Cardiac Studies [facility] [address] [place] [address] Rosalia Chaudhari, [place] Allergies No known active allergiesdocumented as of this encounter (statuses as of 05/08/2023) Medications Medication Sig Dispensed Refills Start Date [...] as of this encounter (statuses as of 05/08/2023) Active Problems Problem Noted Date Diagnosed Date 1st degree AV block 05/05/2023 S/P TAVR (transcatheter aortic valve replacement ) 05/03/2023 BMI less than 19,adult 03/16/2023 Senile osteoporosis 09/28/2022 Protein-calorie malnutrition 07/07/2022 Aortic root enlargement 07/07/2022 Neuromuscular disorder 07/07/2022 PHT (pulmonary hypertension) 06/02/2021 Hx of melanoma of skin 03/24/2021 Overview: Hx MM date 2013, Depth unknown, no SLN, Location [facility] Hx of nonmelanoma skin cancer 03/24/2021 Overview: Hx MM date 2013, Depth unknown, no SLN, Location [facility] (still no path in chart, pt confirmed that he had surgery for melanoma at that site and for BCC prior, see below) BCC R forehead 2008 ([facility]) PSVT (paroxysmal supraventricular tachycardia) 0 12/15/2019 Raynaud's disease without gangrene 06/02/2019 Esophageal dysmotility 05/20/2019 JULIUS (obstructive sleep apnea) 05/20/2019 ILD (interstitial lung disease) 05/20/2019 Coronary artery disease invo lving tribal coronary artery of tribal heart without angina pectoris 03/24/2019 Nonrheumatic mitral valve stenosis 03/24/2019 Moderate aortic stenosis 03/24/2019 H/O Hodgkin's lymphoma 07/05/2018 Acquired hypothyroidism 07/05/2018 documented as of this encounter (statuses as of 05/08/2023) Resolved Problems Problem Noted Date Diagnosed Date Resolved Date Osteoporotic fracture of left hip 09/28/2022 03/14/2023 Sinus tachycardia 03/16/2022 03/14/2023 Prediabetes 02/28/2021 02/01/2023 Overview: Per Prediabetes protocol Moderate protein malnutrition 12/15/2019 03/14/2023 Ankylosing spondylitis of cervical region 12/15/2019 07/07/2022 H/O atrial fibrillation with out current medication 07/05/2018 03/14/2023 documented as of this encounter (statuses as of 05/08/2023) Immunizations Name Administration Dates Next Due COVID-19 [...] Perfusio n F, Pf,0.5 Ml (Abrysvo) 03/27/2023 SEASONAL INFLUENZA, PF, 6 M & Above, IM , (FLULAVAL or FLUZONE) 03/18/2018 Season Influenza, Quad, PF, Adjuvanted, 65+ Yrs, IM (FLUAD) 02/28/2020 Seasonal Influenza, Quadriva lent Hd (Fluzone Hd) [...] the money to buy more. Never true 03/06/20 22 Within the past 12 months, t he food you bought just didn't last and you didn't have money to get more. Never true 03/06/2022 Sex and Gender Information Value Date Recorded [...] as of this encounter Miscellaneous Notes * Progress Notes - Non-Billable - Rita Fuentes OSA - 05/08/2023 11:25 AM EST I was unable to speak to Guido Daley during his recent admission regarding his referral for phase II cardiac rehab. I mailed him a packet of information explaining the program and benefits of participating. The packet also contains instructions on how to enroll in his local hospital should he decide to participate in the future. documented in this encounter Plan of Treatment Upcoming Encounters Date Type Department Care Team (Late st Contact Info) Description 05/08/2023 1:00 PM EST Cardiac Studies Card[facility] Studies [facility] [place] [address] [place] [facility] [place] [address] Abhijit, Ekg [address] [place] [address] 05/08/2023 1:30 PM EST Office Visit [facility] [place] [address] [place] [address] Mary Mccann CRNP [address] [place] [facility] [place] [address] 05/14/2023 11:00 AM EST Office Visit [address] [place] [address] Dewayne Pena MD [address] [facility] [place] [address] 06/15/2023 1:30 PM EST Laboratory Laboratory, [facility] [address] [facility] [place] [id number] [facility] [address] [facility] [place] [address] 06/15/2023 2:00 PM EST Office Visit Cardiology, [facility] [address] [facility] [place] [address] Blessing Coronel CRNP [address] [facility] [place] [address] 06/25/2023 10:20 AM EST Office Visit Pulmonary Medicine, [facility] [address] [facility] [place] [address] Juan Pablo Marsh [facility] [address] [facility] [address] 07/02/2023 7:15 AM EST Cardiac Studies Cardiac Studies, [facility] [address] [facility] [place] [address] 09/14/2023 1:20 PM EDT Office Visit Family Practice [facility] [address] [facility] [place] [address] Dewayne Pena MD [address] [facility] [address] 10/02/2023 1:40 PM EDT Office Visit Rheumatology [address] [place] [address] iTmo Guzman MD [address] [place] [address] [place] [address] 04/15/2024 10:40 AM EDT Office [facility] [address] [place] [address] Jonnathan House PA-C [address] [place] [address] Health Maintenance Due Date Last Done Comments [...] D LEVEL ONCE IN A LIFETIME-USE SMARTSET# [id number] Completed 11/03/2022, 11/20/2018 Influenza Vaccine (FLU shot) [...] this encounter Medical Devices Implanted Type Area Climate Change Analyst Device Identifier Shelf Expiration Date Model / Serial / Lot Cath Thermodilution 6fr - [id number] Implanted:Qty: 1 on 03/07/2023 by Armando Beltran MD at [facility] [employer] [place] [id number] 10/10/2024 [id number] / / [id number] Valve Aortic Transcath Fx 34mm - [id number] Implanted:Qty: 1 on 05/03/2023 by Armando Beltran MD at [facility] [place] [employer] [id number] 08/10/2024 EVOLUTFX- 34 / [id number] / [id number] documented as of this encounter Advance Directives Documents on File Type Date Recorded Patient Audio Narrator Expl anation POLST 03/06/2022 [place] DERS FOR LIFE-SUSTAINING TREATMENT POLST 12/13/2021 [place] DERS FOR LIFE-SUSTAINING TREATMENT Latest Code [...] Direct lorenzo occurred with: Patient Care Teams Fusing Line Inspector Relationship Specialty Start Date End Date Dewayne Pena MD [address] [place] [address] PCP - General Family Medicine 04/30/23 documented as of this encounter
--- OUTSIDE RECORDS SUMMARY | 2023-10-08 23:12 | External Medical Summary ---
Author Name Unknown Address Unknown Organization K01:[facility] [place] - [facility] [address] [facility] [address] [facility] [address] Laboratory Report Ordering Provider Test Date Status NOMI MARES 05/05/2023 05:46:00 Final Observation Date Value Abnormality Reference (Units ) Status BUN 05/05/2023 05:46:00 16 6-20 (mg/dL) Final Creatinine 05/05/2023 05:46:00 0.6 0.6-1.2 (mg/dL) Final Glomerular filtration rate/1.73 sq M.predicted [Volume Rate/Area] in Serum, Plasma or Blood by Creatinine-based formula (CKD-EPI) 05/05/2023 05:46:00 >90 >=60 (mL/min) Final eGFR is calculated based on the CKD-EPI 2020 equation SODIUM 05/05/2023 05:46:00 138 135-146 (m mol/L) Final Potassium 05/05/2023 05:46:00 4.5 3.5-5.1 (m mol/L) Final Cl 05/05/2023 05:46:00 98 98-107 (mm ol/L) Final CO2 05/05/2023 05:46:00 34 Above high normal 22 -32 (mmol/L) Final Anion gap 05/05/2023 05:46:00 6 Below low normal 7-1 5 (mmol/L) Final Glucose 05/05/2023 05:46:00 122 Above high normal 70 -120 (mg/dL) Final Calcium 05/05/2023 05:46:00 9.0 8.4-10.2 ( mg/dL) Final Performing Location [facility] [place] - [address] [place] [address]
--- OUTSIDE RECORDS SUMMARY | 2023-10-08 23:12 | External Medical Summary | Summary of Care ---
Author Name Unknown Organization [facility] Address [address] [place] [address] Phone [phone] Care Team Providers Care Cell Feed Department Supervisor Name Role Phone Dewayne Pena MD Primary Care Provider [phone] Reason for Visit * Reason Onset Date Comments Cardiac Rehab 05/18/2023 Encounter Details Date Type Department Care Team (Late st Contact Info) Description 05/18/2023 Telephone Cardiac Rehab, [facility] [address] [place] [address] Verona Rodriguez, music publisher Allergies No known active allergiesdocumented as of this encounter (statuses as of 05/18/2023) Medications Medication Sig Dispensed Refills Start Date [...] as of this encounter (statuses as of 05/18/2023) Active Problems Problem Noted Date Diagnosed Date 1st degree AV block 05/05/2023 S/P TAVR (transcatheter aortic valve replacement ) 05/03/2023 BMI less than 19,adult 03/16/2023 Senile osteoporosis 09/28/2022 Protein-calorie malnutrition 07/07/2022 Neuromuscular disorder 07/07/2022 PHT (pulmonary hypertension) 06/02/2021 Hx of melanoma of skin 03/24/2021 Overview: Hx MM date 2013, Depth unknown, no SLN, Location [facility] PSVT (paroxysmal supraventricular tachycardia) 0 12/15/2019 Raynaud's disease without gangrene 06/02/2019 Esophageal dysmotility 05/20/2019 JULIUS (obstructive sleep apnea) 05/20/2019 ILD (interstitial lung disease) 05/20/2019 Coronary artery disease invo lving [place] coronary artery of [place] heart without angina pectoris 03/24/2019 Nonrheumatic mitral valve stenosis 03/24/2019 H/O Hodgkin's lymphoma 07/05/2018 Acquired hypothyroidism 07/05/2018 documented as of this encounter (statuses as of 05/18/2023) Resolved Problems Problem Noted Date Diagnosed Date Resolved Date Osteoporotic fracture of left hip 09/28/2022 03/14/2023 Aortic root enlargement 07/07/202204/19 Sinus tachycardia 03/16/2022 03/14/2023 Hx of nonmelanoma skin cancer 03/24/2021 05/14/2023 Overview: Hx MM date 2013, Depth unknown, no SLN, Location [facility] (still no path in chart, pt confirmed that he had surgery for melanoma at that site and for BCC prior, see below) BCC R forehead 2008 ([facility]) Prediabetes 02/28/2021 02/01/2023 Overview: Per Prediabetes protocol Moderate protein malnutrition 12/15/2019 03/14/2023 Ankylosing spondylitis of cervical region 12/15/2019 07/07/2022 Moderate aortic stenosis 03/24/2019 H/O atrial fibrillation with out current medication 07/05/2018 03/14/2023 documented as of this encounter (statuses as of 05/18/2023) Immunizations Name Administration Dates Next Due COVID-19 [...] encounter Miscellaneous Notes * Telephone Encounter - Verona Rodriguez RN - 05/18/2023 5:06 PM EST Obtained insurance information for Cardiac rehab services. Medicare will cover 80 percent and AARP will cover remaining 20%. Called patient to schedule intake interview, no answer, LM to call back. Will follow up. documented in this encounter Plan of Treatment Upcoming Encounters Date Type Department Care Team (Late st Contact Info) Description 06/15/2023 1:30 PM EST Laboratory Laboratory, [facility] [address] [facility] [place] [phone] [facility] [address] [facility] [place] [address] 06/15/2023 2:00 PM EST Office Visit Cardiology, [facility] [address] [facility] [place] [address] Blessing Coronel CRNP [address] [facility] [place] [address] 06/25/2023 10:20 AM EST Office Visit Pulmonary Medicine, [facility] [address] [place] [address] Juan Pablo Marsh MD [address] [place] [address] 07/02/2023 7:15 AM EST Cardiac Studies Cardiac Studies, [facility] [address] [place] [address] 07/09/2023 2:20 PM EST Office Visit Sleep Disorders [facility] [address] [facility] [place] [phone] Cara Brantley DO [address] [place] [address] 09/14/2023 1:20 PM EDT Office Visit Family Practice [facility] [address] [place] [address] Dewayne Pena MD [address] [place] [address] 10/02/2023 1:40 PM EDT Office Visit Rheumatology [address] [employer], [place] [address] Timo Guzman MD [address] [place] [address], [place] [address] 04/15/2024 10:40 AM EDT Office Visit Dermatology [facility] [address] [place] [address] Jonnathan House PA-C [address] [place] [address] Health Maintenance Due Date Last Done Comments [...] D LEVEL ONCE IN A LIFETIME-USE SMARTSET# [id number] Completed 11/03/2022, 11/20/2018 Influenza Vaccine (FLU shot) [...] this encounter Medical Devices Implanted Type Area Planning Consultant Device Identifier Shelf Expiration Date Model / Serial / Lot Cath Thermodilution 6fr - [id number] Implanted:Qty: 1 on 03/07/2023 by Armando Beltran MD at [facility] [employer] [place] [id number] 10/10/2024 [id number] / / [id number] Valve Aortic Transcath Fx 34mm - [id number] Implanted:Qty: 1 on 05/03/2023 by Armando Beltran MD at [facility] [employer] [id number] 08/10/2024 EVOLUTFX- 34 / [id number] / [id number] documented as of this encounter Advance Directives Documents on File Type Date Recorded Patient German Instructor Expl anation POLST 03/06/2022 [place] OR DERS [...] Direct lorenzo occurred with: Patient Care Teams Cell Feed Department Supervisor Relationship Specialty Start Date End Date Dewayne Pena MD [address] [place] [address] PCP - General Family Medicine 04/30/23 documented as of this encounter
--- OUTSIDE RECORDS SUMMARY | 2023-10-08 23:12 | External Medical Summary | Summary of Care ---
Author Name Unknown Organization [facility] Address [address] [place] [address] Phone [phone] Care Team Providers [facility] Drill Operator Name Role Phone Dewayne Pena MD Primary Care Provider [phone] Reason for Referral * Evaluate & Treat - Unlimited Visits (Within 30 days (routine)) - Authorized Specialty Diagnoses / Procedures Referred By Krystian martino Referred To Contact CARDIAC REHAB / Cardiology Diagnoses S/P TAVR (transcatheter aortic valve replacement) Status post cardiac surgery Camille Vieyra DO [address] [place] [address] Referral ID Status Reason Start Date Expiration Date Visits Requested Visits Authorized [id number] Authorized Specialty Services Required 3 [phone] Question Answer Referral Priority Within 30 days (routine) Where should this appointment be scheduled? Frannie Comments Discharge Order Reason for Visit * Auth/Cert Specialty Diagnoses / Procedures Referred By Krystian martino Referred To Contact Diagnoses Aortic stenosis Aortic stenosis [I35.0] Procedures REPLACE AORTIC VALVE, PERCUTANEOUS FEMORAL REPLACE AORTIC VALVE, PERCUTANEOUS FEMORAL REPLACE AORTIC VALVE, PERCUTANEOUS FEMORAL REPLACE AORTIC VALVE, PERCUTANEOUS FEMORAL Referral ID Status Reason Start Date Expiration Date Visits Re quested Visits Authorized [id number] Encounter Details Date Type Department Care Team (Latest Contact Info) Description 05/03/2023 8:59 AM EST - 05/05/2023 11:27 AM EST Hospital Encounter [facility], [facility] 6th Floor [address] [place] [address] Gonzalez Beltran MD [address] [place] [address] Chau Gonzalez DO [address] [place] [address] Alisson Waldron MD [address] [place] [address] Diagnostic Clarification Discharge Disposition: Home - Self Care Allergies No known active allergiesdocumented as of this encounter (statuses as of 05/05/2023) Medications Medication Sig Dispensed Refills Start Date End Date Status Acetylcysteine (NAC 600) 600 MG CAPS Take 1 Tab by mouth 2 times a day. 60 Cap 0 9 Active Cholecalciferol 25 MCG (1000 UT) Oral [...] mouth in the morning. 90 Tablet 3 3 03/06/20 24 Active Levothyroxine Sodium 75 MCG Oral Tablet (Levoxyl) (at least 30 min prior to breakfast or other meds) 90 Tablet 3 3 Active Cyanocobalamin (B-12) 100 MCG TABS Take by mouth 1 Tablet daily . 0 05/04/20 23 Discontinued Metoprolol Succinate ER 25 MG Oral Tablet Extended Release 24 Hour (toPROL XL)Indications:PSVT (paroxysmal supraventricular tachycardia),Sinus tachycardia Take 0.5 Tablets by mouth in the morning and 0.5 Tablets before bedtime. 90 Tablet 3 3 05/05/20 23 Discontinued documented as of this encounter (statuses as of 05/05/2023) Active Problems Problem Noted Date Diagnosed Date 1st degree AV block 05/05/2023 S/P TAVR (transcatheter aortic valve replacement ) 05/03/2023 BMI less than 19,adult 03/16/2023 Senile osteoporosis 09/28/2022 Protein-calorie malnutrition 07/07/2022 Aortic root enlargement 07/07/2022 Neuromuscular disorder 07/07/2022 PHT (pulmonary hypertension) 06/02/2021 Hx of melanoma of skin 03/24/2021 Overview: Hx MM date 2013, Depth unknown, no SLN, Location [facility] Hx of nonmelanoma skin cancer 03/24/2021 Overview: Hx MM date 2013, Depth unknown, no SLN, Location [facility] (still no path in chart, pt confirmed that he had surgery for melanoma at that site and for BCC prior, see below) BCC R forehead 2008 ([facility]) PSVT (paroxysmal supraventricular tachycardia) 0 12/15/2019 Raynaud's disease without gangrene 06/02/2019 Esophageal dysmotility 05/20/2019 JULIUS (obstructive sleep apnea) 05/20/2019 ILD (interstitial lung disease) 05/20/2019 Coronary artery disease invo lving [place] coronary artery of [place] heart without angina pectoris 03/24/2019 Nonrheumatic mitral valve stenosis 03/24/2019 Moderate aortic stenosis 03/24/2019 H/O Hodgkin's lymphoma 07/05/2018 Acquired hypothyroidism 07/05/2018 documented as of this encounter (statuses as of 05/05/2023) Resolved Problems Problem Noted Date Diagnosed Date Resolved Date Osteoporotic fracture of left hip 09/28/2022 03/14/2023 Sinus tachycardia 03/16/2022 03/14/2023 Prediabetes 02/28/2021 02/01/2023 Overview: Per Prediabetes protocol Moderate protein malnutrition 12/15/2019 03/14/2023 Ankylosing spondylitis of cervical region 12/15/2019 07/07/2022 H/O atrial fibrillation with out current medication 07/05/2018 03/14/2023 documented as of this encounter (statuses as of 05/05/2023) Immunizations Name Administration Dates Next Due COVID-19 mRNA, LNP-s, No Pre serve, 2-Dose Series (Moderna) 08/21/2020,07/17/2020 COVID-19, MRNA-LNP, 23-24, P F, 30 MCG/0.3 mL, 12 YRS AND ABOVE, IM ([employer]-Comirnaty) 03/27/2023 COVID-19, mRNA, LNP-s, PF, B ooster, [...] Sign Reading Time Taken Comments Blood Pressure 91/41 05/05/2023 7:00 AM EST Pulse 94 05/05/2023 11:00 AM EST Temperature 37 C (98.6 F) 05/05/2023 5:20 AM EST Respiratory Rate 18 05/05/2023 7:00 AM EST Oxygen Saturation 95% 05/05/2023 7:00 AM EST Inhaled Oxygen Concentration - - Weight - - Height - - Body Mass Index - - documented in this encounter Functional Status Functional Status Response Date of Assess ment Do you have serious difficul ty walking or climbing stairs? (5 years old or older) No 05/04/2023 documented as of this encounter Discharge Summaries * Leatha Tilley MD - 05/05/2023 8:53 AM EST [facility] [address] Admission Date: 05/03/2023 Discharge Date: 05/05/2023 For next provider: - Please ensure follow-up with General Cardiology and Structural Cardiology as requested - On discharge metoprolol was held as patient developed 1st degree AV block. Patient to follow up with Cardiology for resumption -Patient is to tack picker Zio patch (Continuous Cardiac Ambulatory Monitor from [facility]) to monitor further in the setting of new AV block Medication changes: - Vitamin B12 was discontinued due to high Vit B12 levels on lab work -Metoprolol held as described above DISCHARGE DIAGNOSES: Active Hospital Problems Diagnosis *Principal Diagnosis - S/P TAVR (transcatheter aortic valve replacement) BMI less than 19,adult Protein-calorie malnutrition (HCC) Hx of melanoma of skin PSVT (paroxysmal supraventricular tachycardia) Raynaud's disease without gangrene JULIUS (obstructive sleep apnea) ILD (interstitial lung disease) ([facility]) Coronary artery disease involving [place] coronary artery of [place] heart without angina pectoris Nonrheumatic mitral valve stenosis H/O Hodgkin's lymphoma Acquired hypothyroidism Resolved Hospital Problems No resolved problems to display. Attending Provider: Chau Gonzalez DO CONDITION ON DISCHARGE: stable DISPOSITION ON DISCHARGE: home FOLLOW-UP: Future Appointments Appt Date/Time Provider Department 05/08/2023 1:00 PM Abhijit, Ekg Cardiac Studies [facility] 05/08/2023 1:30 PM Miguelina Mg CRNP Cardiology [facility] 06/15/2023 1:30 PM Senait Ross [facility], [facility] 06/15/2023 2:00 PM Blessing Coronel CRNP Cardiology, [facility] 06/25/2023 10:20 AM Juan Pablo Marsh MD Pulmonary Medicine, [facility] 07/02/2023 7:15 AM FUND DEVELOPMENT MANAGER 2 GW Cardiac Studies, [facility] 09/14/2023 1:20 PM Dewayne Pena MD Family Practice [facility] 10/02/2023 1:40 PM Timo Guzman MD Rheumatology [facility] 04/15/2024 10:40 AM Jonnathan House PA-C [facility] Outpatient testing already scheduled: as above Outpatient testing that needs to be arranged: n/a Inpatient test results pending: none MEDICATIONS ON DISCHARGE: MEDICATION UPDATES AT DISCHARGE CONTINUE taking these medications INSTRUCTIONS Acetylcysteine 600 MG Caps Commonly known as: Nac 600 Take 1 Tab by mouth 2 times a day. aspirin 81 MG chewable tablet Take 1 Tablet by mouth in the morning. Cholecalciferol 25 MCG (1000 UT) Capsule Take 1 Capsule by mouth in the morning. CPAP every night at bedtime . Auto 5-20 cm levothyroxine 75 MCG Tablet Commonly known as: Levoxyl (at least 30 min prior to breakfast or other meds) metoprolol succinate XL 25 MG Tb24 Commonly known as: toPROL XL Take 0.5 Tablets by mouth in the morning and 0.5 Tablets before bedtime. Respiratory Therapy Supplies Liza Use as directed. AutoPAP 5-20 cm Turmeric Curcumin Caps Take by mouth 1 Capsule daily . STOP taking these medications B-12 100 MCG Tabs CONTINUE taking these medications but follow up with your Primary Care Physician (PCP). INSTRUCTIONS GNP Pain Relief 325 MG Tablet Generic drug: Acetaminophen Ask about: Should I take this medication? TAKE TWO TABLETS BY MOUTH EVERY 6 HOURS FOR THREE DAYS ALLERGIES: Patient has no known allergies. INSTRUCTIONS: Activity: leg puncture care: no lifting or pushing or pulling more than 10 lbs for 3 days, no strenuous activity for 7 days Diet: heart healthy diet Code status (this admission): Full Code Discussion of adv directives occurred with - adult: Patient [employer] patient: no ADMISSION HISTORY & PHYSICAL EXAM (focused): The note below has been copied and pasted from office visit with Dr Beltran on 05/01/2023 Cardiology Outpatient Follow-up Guido Daley is a 72 year old male who is seen for follow-up of severe aortic stenosis HPI: 72 year old with past medical history of interstitial lung disease, severe aortic stenosis who is here to discuss the upcoming procedure. He has been evaluated by Cardiac surgery and has been found to be near prohibitive risk for open heart surgery. He mentions that he has been extremely symptomatic with significant lightheadedness and shortness of breath on exertion that he has been experiencingover the past week Physical Examination: BP: 141 mmHg/93 mmHg (05/03/23 1004) Pulse: 90 (05/03/23 1004) Temp: 36.11 C (05/03/23 1004) Resp: 16 (05/03/23 1004) SpO2: 97 % (05/03/23 1004) Cardiac: RRR. There is a high-pitched and late-peaking 3/6 systolic murmur best heard at the apex but present across the precordium. There is a separate late- peaking systolic murmur with a blowing quality best heard at the apex. Lungs: CTAB Right Radial pulse 2+ Allens test normal Right Femoral pulse 2+ Right Femoral Bruit no Right PT pulse 1+ Left Femoral pulse 2+ Left Femoral Bruit no Left PT pulse 1+ HOSPITAL COURSE (focused): Guido Daley is a 72 yo M with CAD, PSVT, ILD, hypothyroidism, JULIUS, and Raynaud's who was admitted to [facility] for post-procedural monitoring s/p TAVR (# 34mm [...] a 1st degree AV block with a MA interval of 286. As such metoprolol was held on discharge and patient was ordered a Continuous property assessment monitor (Zio patch AT) to be picked up [...] angiography of the right common iliac artery TTE (05/04/2023): LVEF 55% Interpretation Summary The examination is adequate to evaluate the [...] pulmonary artery systolic pressure is 52mm Hg. DISCHARGE PHYSICAL EXAM: BP 91/41 | Pulse 84 | Temp 37 C (98.6 F) (Tympanic) | Resp 18 | SpO2 95% PHYSICAL EXAM General: thin built male, in no apparent distress HEENT: Sclerae anicteric, atraumatic, normocephalic, Neck: No cervical LAD, normal JVP Cardiovascular: regular rate and regular rhythm with systolic murmur loudest over pulmonic area Respiratory: clear to auscultation bilaterally Abdomen: Soft, no tenderness to palpation, non-distended, normal bowel sounds Musculoskeletal: Small right sided hematoma, stable in size at groin site Extremities: no lower extremity edema bilaterally Neuro: Alert, oriented x3, moves all extremities Skin: No rashes, warm, dry and intact SELECTED RESULTS: Last recorded weight: Laboratory: CHEMISTRY: BUN, Creatinine, GFR Estimated, Sodium, Potassium, Chloride, Carbon Dioxide, Glucose, Calcium (see below for most recent value): Lab Results Component Value Date/Time BUN 16 05/05/2023 05:46 AM BUN 19 06/27/2019 02:05 PM CREAT 0.6 05/05/2023 05:46 AM CREAT 0.9 06/27/2019 02:05 PM GFRESTIMATED >60.0 06/27/2019 02:05 PM NA 138 05/05/2023 05:46 AM NA 142 06/27/2019 02:05 PM POTASSIUM 4.5 05/05/2023 05:46 AM POTASSIUM 5.1 06/27/2019 02:05 PM CL 98 05/05/2023 05:46 AM CL 99 06/27/2019 02:05 PM CO2 34 (H) 05/05/2023 05:46 AM CO2 32 06/27/2019 02:05 PM CA 9.0 05/05/2023 05:46 AM CA 9.5 06/27/2019 02:05 PM BLOOD COUNT: WBC, Hgb, Platelets (see below for most recent value): Lab Results Component Value Date/Time WBC 10.56 05/05/2023 05:46 AM WBC 8.34 11/20/2018 09:57 AM HGB 12.5 (L) 05/05/2023 05:46 AM HGB 12.7 (L) 11/20/2018 09:57 AM PLT 151 05/05/2023 05:46 AM PLT 311 11/20/2018 09:57 AM Complications: none CONSULTS ORDERED: BLOOD MANAGEMENT CONSULT IP CARE MANAGEMENT CONSULT IP REFERRING PHYSICIAN: Ref: GONZALEZ BELTRAN[[id number]] [address] [place] [address] (office) [phone] (fax) PRIMARY CARE PROVIDER: PCP: Dewayne Pena MD [address] / [place] [address] (office) [phone] (fax) Note: To contact a physician responsible for this patients hospital care, please call [email or web address] [phone]. Associated attestation - Chau Gonzalez DO - 05/05/2023 4:06 PM EST I saw and evaluated the patient today. I have reviewed the trainee note and agree. documented in this encounter Discharge Instructions * Discharge Instr - AVS* Leatha Tilley MD - 05/04/2023 9:05 PM EST Discharge Date: 05/05/2023 The information below provides you with the instructions and the list of medications you need to betaking following discharge from the hospital. If you have any questions, please ask before leaving. If you have questions after leaving, you can reach us at the numbers below. YOUR HOSPITAL PROVIDERS: Discharging Physician: Dr. Gonzalez Department: Cardiology IF YOU HAVE QUESTIONS: - To reach this Provider Sunday through Sunday (8:00 AM to 4:30 PM) for any questions or test results: Call [phone] - For after-hours concerns: Call [phone] and have your provider paged, or the provider on callfor the Department of Hospital Medicine paged. For routine questions, your [facility] Cardiology Team prefers the use of [employer]. [employer] is an online internet tool to help you meet your health care needs quickly by providing a secure, confidential way to view your health records and communicate with your [facility] Cardiology Team. To sign up for [employer] go to [email or web address], "Click" [place] Now on the right side of the screen and complete the user registration information. A BRIEF SUMMARY OF YOUR HOSPITAL STAY: You were admitted to the hospital after you underwent replacement of your aortic valve for monitoring. After the procedure, you developed an irregular rhythm that resolved on its own, and had a temporary pacing wire that was placed and was later removed. Ultrasound of your heart after the procedureshowed some leak around the valve. You were monitored for another night without any issues. You remained stable without any complications and were discharged home with plans to follow-up with your primary care provider and cardiology team. Monitoring of your heart rhythm was mildly abnormal and thus your metoprolol was held and a Zio patch was ordered to monitor your rhythm for precaution Your main diagnosis at discharge was: aortic stenosis now with aortic valve replacement Operations & Procedures performed: aortic valve replacement on 05/03/2023 Complications: none significant Inpatient test results that are pending at discharge: none Advance Directive Documented: Advance Directive Does the Patient have an Advance Directive? No YOUR FOLLOW UP APPOINTMENTS: Primary Care Provider Information: PCP: [address], [place] [phone] An appointment was requested with your PCP for within 1 week of discharge from the hospital. (Please take this form to this visit with your primary care physician.) Follow-up appointments were requested with General and Structural Cardiology. You need the following studies in the future: n/a, at the discretion of your PCP. INSTRUCTIONS: Please tack picker your continuous property assessment monitor from the 5th floor of the [facility] building on Sunday (05/07/23) Diet: Heart healthy diet Activity: see below for specific instructions and restrictions Driving: see below for specific instructions and restrictions Date you may return to work or school: see below for specific instructions and restrictions Activity * The following activities are restricted until you are seen in clinic for you post procedure check(approximately 1 week). o Do not drive o Do not lift anything heavier than 10 pounds o No heavy chores (housekeeping, lawn/yard care, etc.) * There is no restriction on climbing stairs. Climb them at a comfortable pace. * Get up in the morning and dress in your regular, every day clothes. * Gradually get back into your daily routine. Ordinary activities such as dressing, showering and grooming may make you tired during your first days at home. Spread your activities out over the day and take frequent rest periods. * The more you are up and about the quicker you will be able to resume your daily activities. o Look for opportunities to move around and try to increase your activity level by small amounts every day. o Concentrate initially on increasing the amount of time you are doing an activity (not how fast you do the activity). o Start with short walks several times a day and progress as you are able. * During hot and humid weather, walk indoors or during the coolest part of the day (street contractor, late evening). * During cold weather, walk indoors or during the warmest part of the day (afternoons). * Sit up in a chair as often as possible. * Support stockings o These stockings are used to prevent postoperative leg swelling and blood clots. o Put on clean stockings in the morning and remove them at night. o When putting them back on, get all the wrinkles out. o Wear the stockings until your ankles and legs are no longer swollen. * Consider a cardiac rehabilitation program. o This program combines modern equipment and techniques with individual counseling and instructionsby exercise physiologists and nurses. o Cardiac rehabilitation generally starts about one month after going home. o If you have not heard about or been contacted by a cardiac rehabilitation program after going home, please contact your heart team or discuss with your provider at your one-month office post procedure office visit. Procedure Site * Normal occurrences at procedure sites: o Soreness o Small amount of drainage o Bruising that extends several inches around the site o One or two small lumps (about the size of a marble) at the site o Usually any discomfort or swelling at the site will gradually return to normal over the next month * A small bandage or Band-Aid will be placed over the area where the catheter(s) have been removed. o The dressing should be removed the day after discharge. o It is important to keep the area clean and dry o You may shower the day after your procedure. o Wash with soap and water, pat the incision dry. o Avoid lotions or creams at incision site. o Leave the area open to air. o Apply a Band-Aid if there is some drainage or oozing. o Avoid tub baths for 5-7 days. * It is important to check the site for signs of infection or complications o If you are unable to see the site, have someone look at it for you. o Signs of infection include: drainage (pus), fever and/or chills. o Some soreness at the site is normal. Tylenol may be taken for this soreness unless otherwise instructed by your physician. o If you think that the site may be infected, notify your physician. o If you have severe pain at the procedure site, a throbbing lump under the skin, numbness, loss offeeling or change in color of the extremity below the procedure site, notify your physician. o You may notice a drop or two of blood on the dressing, this is generally not a problem. If more significant bleeding occurs, put pressure on the site with your hand and seek medical attention immediately. o If a large lump is felt, if you have increased pain at the site, or if the bruise and/or lump areincreasing in size, notify your physician. o Extensive bleeding at the procedure site or a lump which is expanding quickly is an emergency. Call 911 for an ambulance to take you to the nearest emergency room. Lie down then apply firm pressuredirectly over the site, holding pressure until emergency personnel have arrived. Medications * Your medications and/or dose of prior medications may change when you are discharged. * Pay special attention to the medication section of your discharge instructions and make sure you make the appropriate changes to your home regimen. * You may be prescribed antiplatelet medications (usually Plavix/clopidogrel and/or Aspirin). Thesemedications make platelets (cells used to help blood clot) in your blood less sticky. o Plavix is usually taken for 3 months, unless otherwise instructed by your doctor, and aspirin will be lifelong. o Do not discontinue these medications unless directed by your physician Protect your new heart valve * Protective (or prophylactic) antibiotics may need to be taken prior to dental procedures, surgeryand some diagnostic tests and invasive procedures to prevent infection from developing around your new heart valve. Check with your physician prior to undergoing any procedure. * The type of valve you have is a # 34mm Medtronic Evolut FX Aortic Valve , please write this information down and carry it with you at all times. o Carry this information at all times and show it to any physician or dentist who treats you. o Consider obtaining some type of identification bracelet to inform medical personnel about your valve type. o If you need an MRI in the future, show this information to your provider to determine if the valve you received is MRI compatible. Follow Up * Be sure to come in for all scheduled follow up visits. * You will be seen in valve clinic: o One week post procedure o One month post procedure with an echocardiogram to check your new valve o Six months post procedure o One year post procedure with an echocardiogram to check you new valve o Yearly thereafter with echocardiograms * You should continue to have regular follow up with your Primary Care Provider o Schedule an appointment 1-2 weeks after discharge * You should have regular follow up with your primary home energy rater who will continue to manage yourregular cardiac care. o Schedule an appointment approximately 3 months after discharge. MEDICATION CHANGES STOP TAKING THE FOLLOWING MEDICINES: 1. Vitamin B12 - This was discontinued because your Vitamin B12 levels were elevated on lab work. 2. Metoprolol -Please HOLD this medication until you see your [employer] again for follow up CONTINUE TAKING ALL OTHER MEDICINES PRESCRIBED documented in this encounter Progress Notes * Chau Gonzalez, - 05/04/2023 2:27 PM EST Images from the original note were not included. PROGRESS NOTE - RESIDENT - CARDIOLOGY [address] [address] Name: Guido Daley Location: [address] Date: 05/04/2023 Time: 2:31 PM Date of admission: 05/03/2023 Hospital length of stay: 1 days Subjective No acute events overnight. He has very mild pain over his right sided groin site - he did have a small hematoma post TAVR, butthis was stable overnight. No chest pain, SOB, or abdominal pain. Objective CONSTITUTIONAL DATA / OBJECTIVE: Vital Signs (Most Recent): Blood Pressure: 87/50 mmHg Last 12H: Most Recent Systolic BP Av.3 mmHg Min: 87 mmHg Max: 109 mmHg Pulse: 80 Last 12H: Pulse Av Min: 74 Max: 91 Temperature: 37.3 C (99.1 F) Last 12H: Most Recent Temperature Av.9 C Min: 36.28 C Max: 37.28 C Respiratory Rate: 14 O2 Saturation: 97 % Vital Signs (Last 24 Hours): Pulse Av.4 Min: 74 Max: 96 No data recorded Most Recent Systolic BP Av.2 mmHg Min: 87 mmHg Max: 122 mmHg Most Recent Diastolic BP Av.4 mmHg Min: 44 mmHg Max: 57 mmHg Resp Av.6 Min: 14 Max: 23 Most Recent Temperature Av.8 C Min: 36.28 C Max: 37.28 C SpO2 Av.3 % Min: 93 % Max: 100 % Intake & Output Summary (Last 24 hours): Intake/Output Summary (Last 24 hours) at 05/04/2023 1431 Last data filed at 05/04/2023 0900 Gross per 24 hour Intake 820 ml Output 955 ml Net -135 ml Height & Weight: Weight change: There is no height or weight on file to calculate BMI. Physical Examination: General: Patient in no apparent distress, frail male HEENT: normocephalic, atraumatic Heart: regular rate and rhythm; S1 and S2 present; no murmurs, rubs or gallops. Pulmonary: Lungs with diffuse rhonchi/wheeze, no acute distress Abdomen: Soft, non-tender, non-distended. Normal bowel sounds and no rebound or guarding. Extremities: No pitting edema present at lower extremity bilaterally Skin: [place], warm, no wounds or lesions present. Femoral access site: Right femoral hematoma, stable. Mild pain over the site. Sensation intake. Neuro: AAOx3. No gross motor or sensory deficits. Psych: Appropriate mood and affect Peripheral Line Left Arm 20 Gauge (Active) Number of days: 1 Laboratory Values: reviewed. -- Brief labs below include the 7 most recent results over the past week. Blood Gas: No results in the last 7 days - inpatent use only Chemistry Panel: Lab results within last 7 days (see chart for full results) Units 05/04/23 0457 05/03/23 1725 05/03/23 0954 04/30/23 1553 Sodium mmol/L 139 141 140 139 Potassium mmol/L 4.2 4.0 4.4 4.8 Chloride mmol/L 101 101 97* 97* CO2 mmol/L 29 30 35* 36* BUN mg/dL 18 15 17 27* Creatinine mg/dL 0.7 0.6 0.6 0.7 Estimated Glomerular Filtration Rate mL/min >90 >90 >90 >90 Glucose mg/dL 94 87 91 113 Calcium mg/dL 9.1 8.7 9.5 9.5 Magnesium mg/dL 2.1 2.0 -- -- Anion Gap mmol/L 9 10 8 6* Complete Blood Count: Lab results within last 7 days (see chart for full results) Units 05/04/23 0457 05/03/23 1725 05/03/23 0954 04/30/23 1553 WBC K/uL 8.76 9.56 7.72 6.94 HGB g/dL 12.1* 12.4* 14.0 12.9* HCT % 37.0* 37.4* 43.7 40.6 PLT K/uL 160 178 207 192 MCV fL 107.2 107.2 108.7 109.7 Cardiac Studies: Lab results within last 7 days (see chart for full results) Units 05/03/23 0954 BNP, NT-Pro pg/mL 1,501* Coagulation Studies: Lab results within last 7 days (see chart for full results) Units 04/30/23 1553 Prothrombin Time seconds 14.0 INR 1.1 Liver Function Panel: Lab results within last 7 days (see chart for full results) Units 04/30/23 1553 Albumin g/dL 4.2 Protein g/dL 7.8 Bilirubin, Total mg/dL 0.5 Bilirubin, Direct mg/dL 0.2 AST U/L 25 ALT U/L 17 Alkaline Phosphatase U/L 75 Infectious Studies: No results in the last 7 days - inpatent use only Cultures: reviewed. No results in the last 7 days - inpatent use only Recent Cultures (2 Weeks) 03/10/2021 12:40 PM AFB STAIN DESCRIPTION No acid fast bacilli seen AFB CULTURE GROWTH No acid fast bacilli isolated FUNGUS STAIN DESCRIPTION Moderate Yeast FUNGUS CULTURE GROWTH Pithomyces Non-sporulating mold STAIN DESCRIPTION Specimen contaminated with epithelial cells bank representative of oropharyngeal contamination. Further processing may yield potentially misleading results. CULTURE GROWTH Specimen unsatisfactory. Not tested. Radiographic Studies: reviewed. XR CHEST 1 VIEW Result Date: 05/04/2023 IMPRESSION Mild interval improvement in pulmonary edema. XR CHEST 1 VIEW Result Date: 05/03/2023 IMPRESSION 1. Concern for congestive failure with interstitial edema 2. Small left pleural effusion. 3. TAVR in good position. Current Facility-Administered Medications: Acetaminophen (Tylenol) tab 975 mg, 975 mg, Oral, Q6H, Minor, Camille, DO, 975 mg at 05/04/23 0910 aspirin chew tab 81 mg, 81 mg, Oral, Daily(AM), Jaron Shy, , 81 mg at 05/04/23 0910 cholecalciferol (VIT D3) (Vitamin D3) tab 1,000 Units, 1,000 Units, Oral, Daily(AM), aCmille Vieyra DO, 1,000 Units at 05/04/23 0912 CYANOCOBALAMIN (vitamin B-12) tab 100 mcg, 100 mcg, Oral, Daily(AM), Camille Vieyra DO, 100 mcg at107/04/22 0912 Enoxaparin (Lovenox) inj 40 mg, 40 mg, Subcutaneous, Daily(AM), Camille Vieyra DO, 40 mg at 05/04/23 09 levothyroxine (Levoxyl) tab 75 mcg, 75 mcg, Oral, Daily 0630, Camille Vieyra DO, 75 mcg at 05/04/23 0637 magnesium sulfate 1 g in d5w 100mL LOCKED DOSE, 1 g, IV Piggyback, PRN, Camille Vieyra DO metoprolol succinate XL (toPROL XL) tab 12.5 mg, 12.5 mg, Oral, BID(AM/PM), Camille Vieyra DO, 12.5 mg at 05/04/23 0912 NSS infusion, , Intravenous, Continuous, Néstor De La Vega CRNP, Last Rate: 25 mL/hr at 05/03/23 1218, Restarted at 05/03/23 1325 sodium chloride 0.9 % flush peripheral lyssa 3 mL, 3 mL, IV Push, Q Shift, Camille Vieyra DO, 3 mL at 05/04/23 0913 traMADol (Ultram) tab 50 mg, 50 mg, Oral, Q12H PRN, Camille Vieyra DO Assessment & Plan Assessment and Plan: Principal Problem: S/P TAVR (transcatheter aortic valve replacement) (POA: Unknown) Active Problems: H/O Hodgkin's lymphoma (POA: Yes) Acquired hypothyroidism (POA: Yes) Coronary artery disease involving [place] coronary artery of [place] heart without angina pectoris (POA: Yes) Nonrheumatic mitral valve stenosis (POA: Yes) JULIUS (obstructive sleep apnea) (POA: Yes) ILD (interstitial lung disease) (HCC) (POA: Yes) Raynaud's disease without gangrene (POA: Yes) PSVT (paroxysmal supraventricular tachycardia) (POA: Yes) Hx of melanoma of skin (POA: Yes) Overview: Hx MM date 2013, Depth unknown, no SLN, Location R buddhist Protein-calorie malnutrition (HCC) (POA: Yes) BMI less than 19,adult (POA: Yes) POA = Present On Admission Guido Daley is a 72 year old male with PMHx of severe aortic stenosis, CAD, PSVT, interstitial lung disease, hypothyroidism, JULIUS, & Raynaud's who underwent transfemoral implantation of a # 34mm Medtronic Evolut FX Aortic Valve, transiently developing LBBB, which has since resolved. Severe aortic stenosis s/p TAVR (#34 Medtronic Evolut FX aortic valve) - Transiently developed new LBBB, now resolved. Temp pacer wires in place. Also developed a hematoma of the right femoral accesssite. 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 Gonzalez. This chart was completed in part utilizing [employer] Speech Voice Recognition Software. Grammatical errors, random word insertions, pronoun errors, and incomplete sentences are an occasional consequence of this system due to software limitations, ambient noise, and hardware issues. Any formal questions or concerns about the content, text, or information contained within the body of this dictation should be directly addressed to the provider for clarification. I saw and evaluated the patient today. I have reviewed the trainee note and agree. Pt is a 72 y/o M w/ PMHx s/p #34 CoreValve Evolut FX (05-03-23), severe mixed mitral valve disease, AFib, ILD, Hodgkins lymphoma s/p XRT, JULIUS, Pulm HTN who was admitted 05-03-23 after TAVR No major overnight issues No pacing noted overnight Feels well and has been ambulating. TTE today shows a moderate leak around the valve near the severe calcification of the aortomitral curtain. Watch for 24 more hours and if no conduction disease will plan for discharge after TVP removal. documented in this encounter H&P Notes * Jacob Coughlin CRNP - 05/03/2023 10:18 AM EST HISTORY & PHYSICAL INTERVAL NOTE - Cardiology Service [address] [id number] History and Physical Update: Name: Guido Daley Location: CATH/Cath Date: 05/03/2023 Time: 10:18 AM DATE OF HISTORY AND PHYSICAL: 05/01/2023 REFERRED BY: Drs. Beltran and Jorge Chief Complaint: severe symptomatic I have reviewed the H&P previously performed and examined the patient today. There are no new findings noted. Physical Examination: BP: 141 mmHg/93 mmHg (05/03/23 1004) Pulse: 90 (05/03/23 1004) Temp: 36.11 C (05/03/23 1004) Resp: 16 (05/03/23 1004) SpO2: 97 % (05/03/23 1004) Cardiac: RRR. There is a high-pitched and late-peaking 3/6 systolic murmur best heard at the apex but present across the precordium. There is a separate late- peaking systolic murmur with a blowing quality best heard at the apex. Lungs: CTAB Right Radial pulse 2+ Allens test normal Right Femoral pulse 2+ Right Femoral Bruit no Right PT pulse 1+ Left Femoral pulse 2+ Left Femoral Bruit no Left PT pulse 1+ IV Contrast Allergy: no Contraindications to dual anti-platelet therapy: No History of anemia: No ASA: Received typical daily 81 mg dose Anticoagulation: No Labs reviewed as indicated below: Hgb: 14.0 GFR / sCr: > 90 / 0.7 Pre-Cath Labs: normal as above * Néstor De La Vega CRNP - 05/02/2023 9:25 AM EST The note below has been copied and pasted from office visit with Dr Beltran on 05/01/2023 Cardiology Outpatient Follow-up Guido Daley is a 72 year old male who is seen for follow-up of severe aortic stenosis HPI: 72 year old with past medical history of interstitial lung disease, severe aortic stenosis who is here to discuss the upcoming procedure. He has been evaluated by Cardiac surgery and has been found to be near prohibitive risk for open heart surgery. He mentions that he has been extremely symptomatic with significant lightheadedness and shortness of breath on exertion that he has been experiencingover the past week Past Medical History: Diagnosis Date Atrial fibrillation (HCC) BMI less than 19,adult 03/16/2023 Bronchiectasis (HCC) Cardiac arrhythmia Coronary artery disease involving [place] coronary artery of [place] heart without angina pectoris 03/24/2019 Hodgkin's disease (HCC) 1977 s/p radiation Hx of melanoma of skin 03/24/2021 Hx MM date 2013, Depth unknown, no SLN, Location R buddhist ILD (interstitial lung disease) (HCC) Moderate aortic stenosis 03/24/2019 Nonrheumatic mitral valve stenosis 03/24/2019 JULIUS (obstructive sleep apnea) Pulmonary arterial hypertension (HCC) Raynaud's disease without gangrene 06/02/2019 Sleep apnea, obstructive Patient Active Problem List Diagnosis Code H/O Hodgkin's lymphoma Z85.71 Acquired hypothyroidism E03.9 Coronary artery disease involving [place] coronary artery of [place] heart without angina pectoris I25.10 Nonrheumatic mitral valve stenosis I34.2 Moderate aortic stenosis I35.0 Esophageal dysmotility K22.4 JULIUS (obstructive sleep apnea) G47.33 ILD (interstitial lung disease) ([facility]) J84.9 Raynaud's disease without gangrene I73.00 PSVT (paroxysmal supraventricular tachycardia) I47.10 Hx of melanoma of skin Z85.820 Hx of nonmelanoma skin cancer Z85.828 PHT (pulmonary hypertension) ([facility]) I27.20 Protein-calorie malnutrition (HCC) E46 Aortic root enlargement (HCC) I77.89 Neuromuscular disorder ([facility]) G70.9 Senile osteoporosis M81.0 BMI less than 19,adult Z68.1 Past Surgical History: Procedure Laterality Date ANESTH, CARDIAC ELECTROPHYS 2015 CARDIAC CATH-CARDIOLOGY ONLY approx 2012 CARDIOVERSION,ELECTIVE INTERNA 2011 CORONARY ANGIOGRAPHY W/LEFT HEART CATH Right 03/07/2023 CORONARY ANGIOGRAPHY W/LEFT HEART CATH performed by Gonzalez Beltran MD at [facility] EGD, FLEXIBLE, DIAGNOSTIC 05/21/2019 reflux / [facility] MUSCLE BIOPSY, DEEP Left 04/11/2022 BIOPSY MUSCLE DEEP performed by Sadiq Kennedy MD at OR [facility] REMOVAL OF SPLEEN, TOTAL 1977 Due to Hodgkin's disease TOTAL HIP REPLACEMENT & PROSTHESIS Left 11/28/2021 Social History Tobacco Use Smoking status: Former Packs/day: 1.00 Years: 10.00 Additional pack years: 0.00 Total pack years: 10.00 Types: Cigarettes Quit date: 06/18/1977 Years since quittin.8 Smokeless tobacco: Never Vaping Use Vaping Use: Never used Substance Use Topics Alcohol use: No Drug use: No Review of patient's allergies indicates: No Known Allergies Current Outpatient Medications Medication Sig Dispense Refill Acetylcysteine (NAC 600) 600 MG CAPS Take 1 Tab by mouth 2 times a day. 60 Cap Cyanocobalamin (B-12) 100 MCG TABS Take by mouth 1 Tablet daily . Cholecalciferol 25 MCG (1000 UT) Oral Capsule Take 1 Capsule by mouth in the morning. Respiratory Therapy Supplies Device Use as directed. AutoPAP 5-20 cm CPAP every night at bedtime . Auto 5-20 cm Turmeric Curcumin Oral Capsule Take by mouth 1 Capsule daily . Metoprolol Succinate ER 25 MG Oral Tablet Extended Release 24 Hour (toPROL XL) Take 0.5 Tablets by mouth in the morning and 0.5 Tablets before bedtime. 90 Tablet 3 Aspirin 81 MG Oral Tablet Chewable Take 1 Tablet by mouth in the morning. 90 Tablet 3 Levothyroxine Sodium 75 MCG Oral Tablet (Levoxyl) (at least 30 min prior to breakfast or other meds) 90 Tablet 3 No current facility-administered medications for this visit. All systems reviewed and nothing significant except as noted above. PHYSICAL EXAMINATION BP 102/60 | Pulse 86 | Wt 65.1 kg (143 lb 9.6 oz) | SpO2 93% | BMI 18.69 kg/m | BSA 1.84 m Body mass index is 18.69 kg/m. Filed Vitals: 04/30/23 1524 BP: 102/60 Pulse: 86 SpO2: 93% Weight: 65.1 kg (143 lb 9.6 oz) AAOX3, normal gait, normal affect HEENT: PERRLA, JVP: 6 cm, No carotid bruits Heart: RRR, 3/6 systolic murmur in the aortic area with radiation the carotid Lungs: faint lung sounds Abdomen: Non tender, non distended, No hepatosplenomegaly Extremities: no edema CT scan; I reviewed the images of the CT scan which demonstrates adequate iliofemoral access for transcatheter aortic valve replacement. There is significant amount of LVOT calcification noted in thevalve. Impression: Severe symptomatic aortic stenosis. Plan: I had a long discussion with the patient as well as his . I reviewed the images and the extent of the calcification of the LVOT and the aortic root. I did explain to them that this is a lot of calcification in it would predispose him to significantly higher risk of aortic root injury as well assignificant paravalvular leak. However given the fact that there are no good surgical options givenhis near prohibitive risk, the only option would be to undertake this high-risk transcatheter aortic valve replacement. They had lots of questions regarding options, possibilities and backup that we have been it replace should this not go well. They understand that this is at an elevated risk and consent to the procedure. Gonzalez Beltran MD MPH Interventional Cardiology Pager: [phone] 05/01/23 9:49 AM documented in this encounter Procedure Notes * Gonzalez Beltran MD - 05/03/2023 3:10 PM EST Guido Daley 72 year old [id number] 05/03/23 TRANSCATHETER AORTIC VALVE REPLACEMENT STAFF PHYSICIANS: 1. Dr. Beltran 2. Dr. Herrera The attending physicians were present for the following: Vascular access Catheter placement Diagnostic Intervention Device implantation Vascular closure Intraprocedural medication ordering ASSISTING PHYSICIANS: 1. Aren Freeman DO INDICATION FOR PROCEDURE: Severe Symptomatic Aortic Stenosis PROCEDURES: Successful transfemoral implantation of a # 34mm Medtronic Evolut FX Aortic Valve (post dilated with 28 mm ZMED II balloon) Placement of temporary venous pacemaker Aortic valvuloplasty Arterial access site closure with dual Perclose Proglide devices Selective angiography of the right common iliac artery PROCEDURAL DETAILS: The patient was counseled extensively regarding the risks, benefits, and alternatives to the procedure and after answering all questions, the patient yielded informed consent. Thepatient was thereafter brought to the operative suite and monitored anesthesia care was delivered. Preprocedural antibiotic was administered intravenously. Sterile technique was used throughout the case. All vascular access was obtained using modified Seldinger technique. 6F sheaths were were then placed in the right femoral vein and the right and left femoral arteries. Next, a temporary pacing wire was placed in the right ventricle via a 6F sheath inthe femoral vein. A 6F pigtail catheter was placed in LFA and positioned in the aortic arch. The pigtail catheter was subsequently advanced into the aortic root and positioned in the non coronary cusp. The 6F sheath in the right femoral artery was removed and the arteriotomy was preclosed with two Perclose Proglide devices. After preclosure, the access site was upsized directly to a 18 F Cook Dry seal sheath over a Lunderquist wire. After securing the delivery sheath, a 6 F AL1 catheter was advanced to the aortic root. Using a 0.035" straight wire, the aortic valve was crossed. Over the wire, AL1 catheter was advanced across the valve. The straight wire was removed and exchanged for a preformed Confida wire. Over the Confida wire, aortic valvuloplasty was performed with a 23 x 4 mm balloon following standard technique. Next, the Medtronic Evolut FX delivery system with a mounted valve wasdelivered to the ascending aorta. After confirming appropriate placement across the aortic valve using aortic root angiogaphy, the #34 mm Medtronic Evolut FX valve was deployed with ventricular pacing at 140 beats per minute. Following valve deployment, the transthoracic echocardiogram and aortic root angiography revealed a well-placed and well-seated valve, with severe aortic regurgitation. Given this finding we elected to post dilate the valve. We post dilated the Medtronic CoreValve prosthesis with a 28 mm Z-Med 2 balloon. This reduced the degree of aortic insufficiency to mild. This was considered acceptable Next, the delivery catheter system was removed. The right femoral artery device access site was successfully closed using the pre-deployed dual Perclose devices. A 5F DOMINIQUE catheter was then used for non-selective angiography of the right iliofemoral system revealing normal flow without significant stenosis, dissection, or contrast extravasation. The LFA sheath was closed with manual compression and the venous sheaths were pulled and manual compression hemostasis applied. The patient tolerated the procedure well. The patient was noted to have a left bundle branch block post valve deployment. We elected to placea temporary pacemaker wire through the right internal jugular vein for backup. We obtained access into the right internal jugular vein using ultrasound and fluoroscopy. A 6 [place] sheath was placed. Through this we placed a temporary pacemaker wire into the right ventricle and secured it with suture sLaurel Beltran MD MPH Interventional Cardiology Pager: [phone] 05/03/23 3:10 PM documented in this encounter Consult Notes * Mary Gee MSW - 05/04/2023 1:29 PM ESTAssociated Order(s): CARE MANAGEMENT CONSULT IP Please see ancillary notes. CM to continue to follow throughout hospitalization. Thanks * Janet Bunch RN - 05/03/2023 9:24 AM ESTAssociated Order(s): BLOOD MANAGEMENT CONSULT IP REQUESTING SERVICE: cardiology REASON FOR CONSULT: new evaluation inpatient, post op anemia management Chart reviewed. In absence of severe anemia, hemorrhage, or personal beliefs that prohibit blood transfusion would not recommend urgent therapy with iron, vitamins, or erythroid stimulating agents atthis time. If no active hemorrhage, consider PRBC transfusion only for severe anemia and use a 1 unit PRBC dose followed by a repeat clinical assessment. For reversal of anticoagulation therapy, use Reversal of Anticoagulation order set. Please recommend outpatient follow up that includes repeat assessment of hemoglobin when stable fordischarge. Please call with questions. Thank you for allowing Blood Management to participate in the care of this patient. documented in this encounter Nursing Notes * Fadumo Gunn RN - 05/05/2023 11:[address] Hernández d/josh temp pacer. Pt fani well. 4x4 and tegaderm applied. * Malaika Neil RN - 05/03/2023 3:15 PM EST Pt's right femoral groin procedure site noted to get small firm area/small hematoma that softens when manual pressure is held and then slowly returns after 20-30 minutes. Manual pressure held to site3 different times. Pt states site is tender but denies any severe pain. Palpable distal pulse noted. Dr. Beltran called to assess groin site and Dr. Rell Hernández on unit rounding on patients and alsoat bedside to assess site. +Thrill and +Bruit noted and physicians made aware. Orders received to continue to monitor site. VS remain stable. documented in this encounter OR Notes * OR Surgeon - Cisco Herrera MD, PhD - 05/03/2023 1:35 PM EST OPERATIVE RECORD [place] [id number] Guido Alejandroid [id number] SERVICE: CARDIAC SURGERY DATE: 05/03/23 PRE-OP DIAGNOSIS: Severe symptomatic aortic stenosis POST-OP DIAGNOSIS: Same CO-SURGEONS: Cisco Herrera MD, PhD Gonzalez Beltran MD ASSISTANTS: slabber light technicians ANESTHESIA: Conscious sedation OPERATION: 1. Percutaneous femoral transcatheter aortic valve replacement (#34 Evolute FX) 2. Post-TAVR balloon aortic valvuloplasty 3. Right iliofemoral angiography 4. Right IJ temporary transvenous pacemaker FINDINGS: There was mild+ paravalvular leak and no pericardial effusion at the completion of the case. Completion angiography of the delivery system access site demonstrated no vascular injury and brisk distal flow. There was normal sinus rhythm with a bundle branch block, and a transvenous pacemaker was placed. ESTIMATED BLOOD LOSS: 150 ml DRAINS: None FLUIDS: Adequate URINE OUTPUT: Not monitored SPECIMENS: Disposition: None COMPLICATIONS: None CONDITION: Stable INDICATIONS AND HISTORY: The patient has severe aortic stenosis. TAVR was recommended. The patient provided written and verbal informed consent. DESCRIPTION OF OPERATION: The patient was identified, and the procedure was verified. The patient was brought to the pathology laboratory aides teacher and sedated by the anesthesia team. The neck, chest, abdomen, right wrist, and groins were prepped and draped in the usual fashion. Timeout was performed. Percutaneous arterial and venous access was obtained on the left side by Dr. Beltran as well as percutaneous arterial access on the right for the delivery sheath (device side). Fluoroscopy was used to advance the valve sheath up the iliac artery and position wires across the aortic valve. In situ, I prepared the transcatheter valve, which was then positioned appropriately via fluoroscopy across the valve. I deployed the valve during rapid ventricular pacing. Post- deployment, a balloon aortic valvuloplasty was performed during rapid ventricular pacing. Echocardiogram demonstrated no pericardial effusion and mild+ paravalvular leak. This was confirmed on angiography. The valve sheath was removed and percutaneously closed using a single ProGlide. Completion angiography of the device deliveryaccess site demonstrated no vascular injury and brisk distal flow. The contralateral groin was thenalso closed with a single ProGlide. Following the case, the patient's rhythm was normal sinus rhythm with a bundle branch block. As such, a right IJ temporary transvenous pacemaker was placed. The patient tolerated the procedure well without apparent intraoperative complications. Cisco Herrera MD, PhD Director, Pediatric and Adult Congenital Cardiac Buttermaker Continuous ChurnRibbon [place] [address] Office #[phone] [email or web address] I was scrubbed for the entirety of the procedure. My Digester Operator Helper was necessary throughout the procedure(s) for management of wires, sheaths, catheters and the device, and holding pressure for hemostasis. I understand that section 1842 (b)(7)(D) of the Social Security Act generally prohibits Medicare physician fee schedule payment for the services of [id number] in teaching hospitals when qualified residents are available to furnish such services. I certify that the services for which payment is claimed were medically necessary, and that no qualified resident was available to perform the services. I further understand that these services are subject to post-payment review by the Medicare carrier. documented in this encounter Miscellaneous Notes * Diagnostic Clarification - Chau Gonzalez DO - 05/04/2023 7:18 PM EST The patient has been diagnosed with acute blood loss anemia. The patient has been diagnosed with moderate malnutrition. The patient has been diagnosed with paroxysmal atrial fibrillation. * Ancillary Progress Note - Mary Gee MSW - 05/04/2023 1:25 PM EST CARE MANAGEMENT - ADULT INITIAL SCREENING [address] [address] Name: Guido Daley Location: [facility] Date: 05/04/2023 Time: 1:25 PM Patient Class: Inpatient (05/04/231321) Discussed patient with the interdisciplinary care team. This Oil Transport Driver performed a chart review and met with patient and spouse at bedside to complete admission screen and assessed needs for transition planning. The childcare center administrator role and services were explained and emotional support was provided. 30 Day Readmission Screening 30 Day Readmission Readmission within 30 days?: No (05/04/231321) Chief Complaint: No chief complaint on file. Prior Living Arrangements What was your living situation prior to admission/observation?: With Spouse (05/04/231321) Do you have any children, pets, or other dependents that you are currently caring for?: Yes (comment) (dog- is caring for it) (05/04/231321) Living Quarters: House (05/04/231321) How many stories is the dwelling?: One Story (05/04/231321) Number of steps to enter living quarters:: 1 (05/04/231321) Location of bathroom(s): All floors or Single story dwelling (05/04/231321) Do you have serious difficulty walking or climbing stairs? (5 years old or older): No (05/04/231321) History of falling: No (05/04/231321) Prior Level of Functioning Describe the patient's ability prior to admission/observation to perform ADLs: Performs independently (05/04/231321) Describe the patient's mobility status prior to admission: Patient ambulates independently (05/04/231321) Patient uses assistive device: Yes (05/04/231321) If yes, choose:: Walker (05/04/231321) Caregiver Information Patient Contacts Name Relation Home Work Mobile mattie daley Spouse [phone] Risk Stratification/Psychosocial/Care Gaps Risk Stratification Psycho Social/Care Gaps concerns identified upon admission:: Adjustment to illness/injury () OBRA or OPTIONS needed for placement: No (05/04/231321) Readmission Risk Score: 8.44 (05/04/23 1200) AM-PAC Score With Stairs : 24 (05/04/23 0900) 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 Patient is independent with ADL's an uses a walker sometimes at home. Patient uses a CPAP, and gets supplies through [employer]. Patient [facility], with no issues obtaining medication. Patient has had PT in the past, and would be opened to starting again. 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 FREQUENCY DESIGN ENGINEER Services (Services received within the last 30 days with exception, Psych within last two years): N/A (05/04/231321) RADIO FREQUENCY DESIGN ENGINEER Transportation (Services received within the last 30 days): Patient drives self (05/04/231321) Outpatient Oil Transport Driver: no, not applicable Patient/Family Expectations: home Anticipated Disposition Plan & Post Acute Needs Anticipated Plan Anticipated Post-Acute Care needs identified: Other - Comment (pending hosptial stay) (05/04/231321) For further screening information, please refer to the Care Management flow document. * Respiratory Progress Note - Keshia López, RELATIONSHIP MANAGEMENT LEAD - 05/03/2023 5:12 PM EST PATIENT DRIVEN PROTOCOL - Respiratory Care Services [address] [address] Name: Guido Daley Location: [address] Date: 05/03/2023 Time: 5:12 PM Patient Driven Protocol Summary: Initial evaluation performed. This Treatment Plan and medications will be reviewed by the Primary Care Team for any contraindications. Respiratory Care Treatment Plan Pulmonary Volume Expansion Therapy: Incentive Spirometry PRN to prevent or treat alveolar consolidation and atelectasis. . Secretion Management Treatment: Flutter TherapyPRN to enhance mobilization of secretions. . The patient will be re-evaluated: No re-evaluation needed. Indications for treatment met. The Triage Level is: (Assessment Score = 0 - 5) Level 5. Triage Level Definitions: Level 1 Severe Respiratory/Airway Compromise Level 2 Moderate Respiratory/Airway Compromise or high risk for pulmonary complications Level 3 Mild Respiratory/Airway Compromise or moderate risk for pulmonary complications Level 4 Episodic Respiratory/Airway Compromise or low risk for pulmonary complications Level 5 No Respiratory/Airway Compromise Triage 1 Triage 2 Triage 3 Triage 4 Triage 5 greater than 20 16 - 20 11 - 15 6 - 10 0 - 5 Medical Record Assessment Clinical Findings Pulmonary Status: 0 - No Smoking or quit greater than 10 years ago Surgical Status: 3 - Thoracic or Upper Abdominal Chest X-Ray: 1 - CXR Pending Assessment Score: 4 Patient Assessment Clinical Findings Respiratory Pattern: 0 - RR 12 - 20; Patient only gets breathless with strenuous exercise. Breath Sounds: 0 - Clear to auscultation Cough Effectiveness: 0 - Strong non-productive Sputum Production: 0 - No sputum production Level of Activity: 1 - Ambulatory with assist O2 needed to keep SpO2 greater than or equal to 92%: 0 - Room Air Assessment Score: 1 Total Assessment Score: 5 Breath Sounds: Inspiratory and expiratory clear and diminished bilaterally.. Cough and Sputum: No cough was present.. CXR: pending Vital Signs: Resp: 20 (05/03/23 1620) Pulse: 76 (05/03/23 1620) Temp: 36.3 C (97.3 F) (05/03/23 1406) BP: 114/51 (11/16/23 1620) SpO2: 96 % (05/03/23 1620) PFT: Minimal Predicted IC: 1.22 L. Inspiratory capacity: 1.0 L. Primary Service: Cardiology Med B. Admitting Diagnosis: Aortic stenosis [I35.0] Valvular heart disease [I38] Pulmonary Diagnosis: JULIUS. Prescriptions/Home Medications/Durable Medical Equipment: QHS Cpap . Recommended New home medications/durable medical equipment/outpatient pulmonary/sleep referral TBD. * Progress Notes - Non-Billable - JarrellCamille DO - 05/03/2023 4:31 PM EST Post-Procedure Check Subjective: Patient doing well aortic valve replacement - he had a transfemoral implantation of a # 34mm Medtronic Evolut FX Aortic Valve. He is feeling well post procedure. He unfortunately developed a new leftbundle-branch block post valve deployment and had temporary pacemaker wire placed into the right ventricle. 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 Denies significant pain, numbness, tingling, bleeding, weakness at the cath site. He does state he has some right-sided groin pain. Objective: BP 114/51 | Pulse 76 | Temp 36.3 C (97.3 F) (Tympanic) | Resp 20 | SpO2 96% Constitutional: Conscious, alert, cooperative and in no immediate distress HEENT: NC/AT, Tongue: moist Chest: Good bilateral air entry, Clear to auscultation Heart: S1 S2 audible, rhythm regular. + murmer Femoral access site: Left side - No significant bleeding. Pulse, strength, sensation intact. No bruit heard. Right-sided femoral axis site with small hematoma this often with pressure. Minimal pain around the site. He has good sensation surrounding the access site. Pulse appreciated. Procedure: - Successful transfemoral implantation of a # 34mm Medtronic Evolut FX Aortic Valve (post dilated with 28 mm ZMED II balloon) - Placement of temporary venous pacemaker - Aortic valvuloplasty - Arterial access site closure with dual Perclose Proglide devices - Selective angiography of the right common iliac artery A/P: Guido Daley is a 72 year old male with hx of severe aortic stenosis, CAD, PSVT, interstitial lung disease, hypothyroidism, JULIUS, & Raynaud's who underwent ransfemoral implantation of a # 34mm Medtronic Evolut FX Aortic Valve, transiently developing LBBB, which has since resolved. Monitor right-sided femoral access site. Relate to the nighttime team regarding hematoma and plan to follow up in a few hours. Maintain in CPRS for hemodynamic monitoring Close telemetry monitoring given left bundle branch block seen post valve deployment Resume prior diet Remainder of management per day team note. * Ancillary Progress Note - Darell Murillo RCIS - 05/03/2023 2:29 PM EST [facility] [address] [address] Ancillary Progress Note Patient Name: Guido Daley Date: 05/03/2023 Patient will be escorted to Cardiac Recovery Suite. We performed a transfemoral approach for transcatheter aortic valve replacement. The right femoral artery was used for access with a 18 Mongolian sheath. A Perclose was used to close the site. The right femoral vein was used for access with a 7 luxembourgish sheath and manual pressure was held until hemostasis was achieved. The left femoral artery was used for access with a 6 luxembourgish sheath and manual pressure was held until hemostasis was achieved. The right internal jugular was used for access with a 6 luxembourgish sheath and a temp wire was left in and sutured in place. There is no hematoma and no ooze from the cath site noted. CHG Tegaderm dressing applied to site. Distal pulses were palpated and instructions to patient were given. There were no complications during the case. Please see the MAR for the medications that were given. See Cath Procedure Log for patient vitals during the case. documented in this encounter Plan of Treatment Upcoming Encounters Date Type Department Care Team (Late st Contact Info) Description 05/08/2023 1:00 PM EST Cardiac Studies Cardiac Studies [facility] [address] [place] [address] [place], [place] [address] [place] [address] 05/08/2023 1:30 PM EST Office Visit Cardiology [facility], [place] [address] [place] [address] Miguelina Mg CRNP [address] [place] [address] 06/15/2023 1:30 PM EST Laboratory Laboratory, [facility] [address] [place] [id number] [facility] [place] [address] 06/15/2023 2:00 PM EST Office Visit Cardiology, [facility] [address] [facility] [place] [address] Blessing Coronel CRNP [address] [place] [address] 06/25/2023 10:20 AM EST Office Visit Pulmonary Medicine, [facility] [address] [facility] [place] [address] Juan Pablo Marsh MD [address] [facility] [place] [address] 07/02/2023 7:15 AM EST Cardiac Studies Cardiac Studies, [facility] [address] [facility] [place] [address] 09/14/2023 1:20 PM EDT Office Visit Family Practice [facility] [address] [facility] [place] [address] Dewayne Pena MD [address] [facility] [place] [address] 10/02/2023 1:40 PM EDT Office Visit Rheumatology [place] [id number] [facility] [place], [place] [address] Timo Guzman MD [address] [facility] [place] [address] 04/15/2024 10:40 AM EDT Office Visit Dermatology [facility] [address] [place] [address] Jonnathan House PA-C [address] [place] [address] Scheduled Orders Name Type Priority Associated Diagnoses Order Schedule TRANSESOPHAGEAL ECHO INTRA-OP (COMPLETE) Echocardiology STAT S/P TAVR (transcatheter aortic valve replacement) Valvular heart disease One Time for 1 Occurrences starting 05/03/2023 until 05/03/2023 EKG EKG STAT S/P TAVR (transcatheter aortic valve replacement) Perform Now for 1 Occurrences starting 05/03/2023 until 05/03/2023 EKG EKG STAT Post-operative state One Time for 1 Occurrences starting 05/03/2023 until 05/03/2023 EKG EKG Routine Post-operative state One Time for 1 Occurrences starting 05/04/2023 until 05/04/2023 EKG EKG STAT Pacemaker One Time for 1 Occurrences starting 05/05/2023 until 05/05/2023 CONNECTED CONTINUOUS AMBULATORY MONITOR Holter Routine S/P TAVR (transcatheter aortic valve replacement) 1st degree AV block Expected: 05/05/2023 (Approximate), Expires: 06/04/2023 Scheduled Referrals Name Type Priority Associated Diagnoses Orde r Schedule CARDIAC REHAB REFERRAL OP Referral Within 30 days (routine) S/P TAVR (transcatheter aortic valve replacement) Status post cardiac surgery Ordered: 05/03/2023 Health Maintenance Due Date Last Done Comments [...] D LEVEL ONCE IN A LIFETIME-USE SMARTSET# [id number] Completed 11/03/2022, 11/20/2018 Influenza Vaccine (FLU shot) [...] this encounter Medical Devices Implanted Type Area Head Of Training And Development Device Identifier Shelf Expiration Date Model / Serial / Lot Cath Thermodilution 6fr - [id number] Implanted:Qty: 1 on 03/07/2023 by Gonzalez Beltran MD at [facility] [employer] [id number] 10/10/2024 [id number] / / [id number] Valve Aortic Transcath Fx 34mm - [id number] Implanted:Qty: 1 on 05/03/2023 by Gonzalez Beltran MD at [facility] [employer] [id number] 08/10/2024 [id number]- 34 / [id number] / [id number] documented as of this encounter Procedures Procedure Name Priority Date/Time Associated Diagnosis Comments BASIC METABOLIC PANEL STAT 05/05/2023 5:46 AM EST CBC STAT 05/05/2023 5:46 AM EST MAGNESIUM STAT 05/05/2023 5:46 AM EST ECHO, COMPLETE (2D), TRANS-THORACIC Routine 05/04/2023 9:57 AM EST S/P TAVR (transcatheter aortic valve replacement) XR CHEST 1 VIEW Routine 05/04/2023 5:42 AM EST BASIC METABOLIC PANEL STAT 05/04/2023 4:57 AM EST CBC STAT 05/04/2023 4:57 AM EST MAGNESIUM STAT 05/04/2023 4:57 AM EST ANEMIA REFLEX CHEMISTRY HOLD STAT 05/03/2023 5:25 PM EST BASIC METABOLIC PANEL STAT 05/03/2023 5:25 PM EST FOLIC ACID STAT 05/03/2023 5:25 PM EST CBC STAT 05/03/2023 5:25 PM EST MAGNESIUM STAT 05/03/2023 5:25 PM EST VITAMIN B12 STAT 05/03/2023 5:25 PM EST XR CHEST 1 VIEW STAT 05/03/2023 4:44 PM EST ECHO, COMPLETE (2D), TRANS-THORACIC Routine 05/03/2023 2:05 PM EST Status post cardiac surgery ACT, POINT OF CARE GISELE 05/03/2023 1: 43 PM EST ACT, POINT OF CARE GISELE 05/03/2023 1: 07 PM EST ANEMIA CBC STAT 05/03/2023 9:54 AM EST DIFFERENTIAL, AUTOMATED STAT 05/03/20 9:54 AM EST DIFFERENTIAL, AUTOMATED STAT 05/03/20 9:54 AM EST BNP (NT-PROBNP) Routine 05/03/2023 9:54 AM EST BASIC METABOLIC PANEL STAT 05/03/2023 9:54 AM EST HC COMPATIBILITY ELECTRONIC CROSSMATCH STAT 05/03/2023 9:05 AM EST CARDIAC CATHETERIZATION REPORT Routine 05/03/2023 documented in this encounter Results * MAGNESIUM (05/05/2023 5:46 AM EST) Pathologist [facility] Magnesium 2.0 1.5 - 2.6 mg/dL 05/05/2023 7:00 AM EST LAB[facility]ATORY [facility] Blood Venous blood specimen / Unknown Venipuncture / Unknown 05/05/2023 5:46 AM EST 05/05/2023 6:26 AM EST Camille Vieyra DO LAB BLOOD ORDERABLES Performing Organization Address City/State/[facility] Co de Phone Number [facility] [address] [place] [address] * (ABNORMAL) CBC (05/05/2023 5:46 AM EST) Pathologist [facility] WBC 10.56 4.00 - 10.80 K/uL 05/05/2023 6:41 AM EST [facility] RBC 3.54 4.50 - 5.25 M/uL 05/05/2023 6:41 AM EST [facility] HGB 12.5(L) 14.0 - 16.8 g/dL 05/05/2023 6:41 AM EST [facility] HCT 38.3(L) 40.0 - 48.4 % 05/05/2023 6:41 AM EST [facility] MCV 108.2 82.0 - 99.5 fL 05/05/2023 6:41 AM EST [facility] MCH 35.3 27.0 - 34.0 pg 05/05/2023 6:41 AM EST [facility] MCHC 32.6 32.0 - 36.0 g/dL 05/05/2023 6:41 AM EST [facility] RDW 14.6 11.5 - 15.5 % 05/05/2023 6:41 AM EST [facility] PLT 151 140 - 400 K/uL 05/05/2023 6:41 AM EST [facility] MPV 12.6 6.6 - 11.1 fL 05/05/2023 6:41 AM EST [facility] nRBCs 0 <=0 /100 WBCs 05/05/2023 6:41 AM EST [facility] Blood Venous blood specimen / Unknown Venipuncture / Unknown 05/05/2023 5:46 AM EST 05/05/2023 6:26 AM EST Camille Jarrell LAB BLOOD ORDERABLES Performing Organization Address City/State/[facility] Co de Phone Number LABORATORY [facility] [address] [place] [address] * (ABNORMAL) BASIC METABOLIC PANEL (05/05/2023 5:46 AM EST) BUN 16 6 - 20 mg/dL 05/05/2023 7:00 AM EST [facility] Creatinine 0.6 0.6 - 1.2 mg/dL 05/05/2023 7:00 AM EST [facility] Estimated Glomerular Filtration Rate >90 >=60 mL/min 05/05/2023 7:00 AM EST [facility] Comment:eGFR is calculated b ased on the CKD-EPI 2020 equation Sodium 138 135 - 146 mmol/L 05/05/2023 7:00 AM EST [facility] Potassium 4.5 3.5 - 5.1 mmol/L 05/05/2023 7:00 AM EST [facility] Chloride 98 98 - 107 mmol/L 05/05/2023 7:00 AM EST [facility] CO2 34(H) 22 - 32 mmol/L 05/05/2023 7:00 AM EST [facility] Anion Gap 6(L) 7 - 15 mmol/L 05/05/2023 7:00 AM EST LABORATORY [facility] Glucose 122(H) 70 - 120 mg/dL 05/05/2023 7:00 AM EST LABORATORY [facility] Calcium 9.0 8.4 - 10.2 mg/dL 05/05/2023 7:00 AM EST LABORATORY [facility] Blood Venous blood specimen / Unknown Venipuncture / Unknown 05/05/2023 5:46 AM EST 05/05/2023 6:26 AM EST [facility] LAB[facility] [address] [place] [address] * ECHO, COMPLETE (2D), TRANS-THORACIC (05/04/2023 9:57 AM EST) LEFT VENTRICULAR EJECTION FRACTION 55 % [facility] CARDIOLOGY 05/04/2023 7:04 AM EST [facility] ECHOCARD[facility]Y [facility] CARDIOLOGY * XR CHEST 1 VIEW (05/04/2023 5:42 AM EST) Anatomical Region Laterality Modality Chest Computed Radiogr aphy 05/04/2023 9:41 AM EST Impressions 05/04/2023 9:39 AM EST IMPRESSION Mild interval improvement in pulmonary edema. Narrative 05/04/2023 9:39 AM EST EXAM XR CHEST 1 VIEW - 05/04/2023 5:42 am HISTORY POD #1 S/P TAVR or Mitraclip COMPARISON Chest radiograph 05/03/2023. TECHNIQUE Semi-upright AP view of the chest. FINDINGS Lines/Tubes/Devices: Status post TAVR. Right IJ transvenous pacing wire in stable position. Lungs/Pleura: Slight improvement in diffuse interstitial opacities concerning for mild pulmonary edema. No discernible pneumothorax. Heart/Mediastinum: Size and contours are within normal limits. Aortic atherosclerosis. Bones/Soft Tissues: Degenerative osseous changes. No acute osseous abnormality. Upper Abdomen: Surgical clips in the upper abdomen. Procedure Note Adam Sterling MD - 05/04/2023 EXAM XR CHEST 1 VIEW - 05/04/2023 5:42 am HISTORY POD #1 S/P TAVR or Mitraclip COMPARISON Chest radiograph 05/03/2023. TECHNIQUE Semi-upright AP view of the chest. FINDINGS Lines/Tubes/Devices: Status post TAVR. Right IJ transvenous pacing wirein stable position. Lungs/Pleura: Slight improvement in diffuse interstitial opacitiesconcerning for mild pulmonary edema. No discernible pneumothorax. Heart/Mediastinum: Size and contours are within normal limits. Aorticatherosclerosis. Bones/Soft Tissues: Degenerative osseous changes. No acute osseousabnormality. Upper Abdomen: Surgical clips in the upper abdomen. IMPRESSION IMPRESSION Mild interval improvement in pulmonary edema. Camille Vieyra DO RADIOLOGY (RAD GENER AL) * MAGNESIUM (05/04/2023 4:57 AM EST) Pathologist [facility] Magnesium 2.1 1.5 - 2.6 mg/dL 05/04/2023 5:43 AM EST [facility] Blood Venous blood specimen / Unknown Venipuncture / Unknown 05/04/2023 4:57 AM EST 05/04/2023 5:08 AM EST Camille Vieyra DO LAB BLOOD ORDERABLES [facility] [address] [place] [address] * (ABNORMAL) CBC (05/04/2023 4:57 AM EST) WBC 8.76 4.00 - 10.80 K/uL 05/04/2023 5:27 AM EST [facility] RBC 3.45 4.50 - 5.25 M/uL 05/04/2023 5:27 AM EST [facility] HGB 12.1(L) 14.0 - 16.8 g/dL 05/04/2023 5:27 AM EST [facility] HCT 37.0(L) 40.0 - 48.4 % 05/04/2023 5:27 AM EST [facility] MCV 107.2 82.0 - 99.5 fL 05/04/2023 5:27 AM EST [facility] MCH 35.1 27.0 - 34.0 pg 05/04/2023 5:27 AM EST [facility] MCHC 32.7 32.0 - 36.0 g/dL 05/04/2023 5:27 AM EST [facility] RDW 14.3 11.5 - 15.5 % 05/04/2023 5:27 AM EST [facility] PLT 160 140 - 400 K/uL 05/04/2023 5:27 AM EST [facility] MPV 12.3 6.6 - 11.1 fL 05/04/2023 5:27 AM EST [facility] nRBCs 0 <=0 /100 WBCs 05/04/2023 5:27 AM EST [facility] Blood Venous blood specimen / Unknown Venipuncture / Unknown 05/04/2023 4:57 AM EST 05/04/2023 5:08 AM EST Camille Jarrell LAB BLOOD ORDERABLES Performing Organization Address City/State/[facility] Co de Phone Number [facility] [address] [place] [address] * BASIC METABOLIC PANEL (05/04/2023 4:57 AM EST) BUN 18 6 - 20 mg/dL 05/04/2023 5:43 AM EST [facility] Creatinine 0.7 0.6 - 1.2 mg/dL 05/04/2023 5:43 AM EST [facility] Estimated Glomerular Filtration Rate >90 >=60 mL/min 05/04/2023 5:43 AM EST [facility] Comment:eGFR is calculated b ased on the CKD-EPI 2020 equation Sodium 139 135 - 146 mmol/L 05/04/2023 5:43 AM EST [facility] Potassium 4.2 3.5 - 5.1 mmol/L 05/04/2023 5:43 AM EST [facility] Chloride 101 98 - 107 mmol/L 05/04/2023 5:43 AM EST [facility] CO2 29 22 - 32 mmol/L 05/04/2023 5:43 AM EST [facility] Anion Gap 9 7 - 15 mmol/L 05/04/2023 5:43 AM EST [facility] Glucose 94 70 - 120 mg/dL 05/04/2023 5:43 AM EST LABORATORY C Calcium 9.1 8.4 - 10.2 mg/dL 05/04/2023 5:43 AM EST [facility] Blood Venous blood specimen / Unknown Venipuncture / Unknown 05/04/2023 4:57 AM EST 05/04/2023 5:08 AM EST Camille Vieyra DO LAB BLOOD ORDERABLES Performing Organization Address City/[facility]/ZIP Co de Phone Number LABORATORY C [address] [place] [address] * (ABNORMAL) VITAMIN B12 (05/03/2023 5:25 PM EST) Pathologist [facility] Vitamin B12 >2,000(H) 232 - 1,245 pg/mL 05/03/2023 7:47 PM EST [facility] Blood Venous blood specimen / Unknown Venipuncture / Unknown 05/03/2023 5:25 PM EST 05/03/2023 5:31 PM EST Néstor LYONS LAB BLOOD OR DERABLES Performing Organization Address City/[facility] Co de Phone Number LABORATORY [facility] [address] [place] [address] * FOLIC ACID (05/03/2023 5:25 PM EST) Folic Acid 19.5 >4.5 ng/mL 05/03/2023 7:47 PM EST LABORATORY [facility] Blood Venous blood specimen / Unknown Venipuncture / Unknown 05/03/2023 5:25 PM EST 05/03/2023 5:31 PM EST Néstor LYONS LAB BLOOD OR DERABLES Performing Organization Address City/[facility] Co de Phone Number LABORATORY [facility] [address] [place] [address] * MAGNESIUM (05/03/2023 5:25 PM EST) Pathologist [facility] Magnesium 2.0 1.5 - 2.6 mg/dL 05/03/2023 6:02 PM EST [facility] Blood Venous blood specimen / Unknown Venipuncture / Unknown 05/03/2023 5:25 PM EST 05/03/2023 5:31 PM EST [facility] LAB BLOOD ORDERABLES [facility] [address] [place] [address] * (ABNORMAL) CBC (05/03/2023 5:25 PM EST) WBC 9.56 4.00 - 10.80 K/uL 05/03/2023 5:50 PM EST [facility] RBC 3.49 4.50 - 5.25 M/uL 05/03/2023 5:50 PM EST [facility] HGB 12.4(L) 14.0 - 16.8 g/dL 05/03/2023 5:50 PM EST [facility] HCT 37.4(L) 40.0 - 48.4 % 05/03/2023 5:50 PM EST [facility] MCV 107.2 82.0 - 99.5 fL 05/03/2023 5:50 PM EST [facility] MCH 35.5 27.0 - 34.0 pg 05/03/2023 5:50 PM EST [facility] MCHC 33.2 32.0 - 36.0 g/dL 05/03/2023 5:50 PM EST [facility] RDW 14.3 11.5 - 15.5 % 05/03/2023 5:50 PM EST [facility] PLT 178 140 - 400 K/uL 05/03/2023 5:50 PM EST [facility] MPV 11.8 6.6 - 11.1 fL 05/03/2023 5:50 PM EST [facility] nRBCs 0 <=0 /100 WBCs 05/03/2023 5:50 PM EST [facility] Blood Venous blood specimen / Unknown Venipuncture / Unknown 05/03/2023 5:25 PM EST 05/03/2023 5:31 PM EST Camille Minor DO LAB BLOOD ORDERABLES [facility] [address] [place] [address] * BASIC METABOLIC PANEL (05/03/2023 5:25 PM EST) BUN 15 6 - 20 mg/dL 05/03/2023 6:02 PM EST [facility] Creatinine 0.6 0.6 - 1.2 mg/dL 05/03/2023 6:02 PM EST [facility] Estimated Glomerular Filtration Rate >90 >=60 mL/min 05/03/2023 6:02 PM EST [facility] Comment:eGFR is calculated b ased on the CKD-EPI 2020 equation Sodium 141 135 - 146 mmol/L 05/03/2023 6:02 PM EST [facility] Potassium 4.0 3.5 - 5.1 mmol/L 05/03/2023 6:02 PM EST [facility] Chloride 101 98 - 107 mmol/L 05/03/2023 6:02 PM EST [facility] CO2 30 22 - 32 mmol/L 05/03/2023 6:02 PM EST [facility] Anion Gap 10 7 - 15 mmol/L 05/03/2023 6:02 PM EST [facility] Glucose 87 70 - 120 mg/dL 05/03/2023 6:02 PM EST [facility] Calcium 8.7 8.4 - 10.2 mg/dL 05/03/2023 6:02 PM EST [facility] Blood Venous blood specimen / Unknown Venipuncture / Unknown 05/03/2023 5:25 PM EST 05/03/2023 5:31 PM EST [facility] DO LAB BLOOD ORDERABLES Performing Organization Address City/[facility]/ZIP Co de Phone Number [facility] [address] [place] [address] * ANEMIA REFLEX CHEMISTRY HOLD (05/03/2023 5:25 PM EST) Blood Venous blood specimen / Unknown Venipuncture / Unknown 05/03/2023 5:25 PM EST 05/03/2023 5:31 PM EST Néstor RUSHNP LAB BLOOD OR DERABLES LABORATORY [facility] [address] [place] [address] * XR CHEST 1 VIEW (05/03/2023 4:44 PM EST) Anatomical Region Laterality Modality Chest Computed Radiogr aphy 05/03/2023 6:32 PM EST Impressions 05/03/2023 6:29 PM EST IMPRESSION 1. Concern for congestive failure with interstitial edema 2. Small left pleural effusion. 3. TAVR in good position. Narrative 05/03/2023 6:29 PM EST EXAM XR CHEST 1 VIEW05/03/2023 4:44 pm HISTORY Baseline initial xray after open heart surgery. Percutaneous femoral trans catheter aortic valve replacement. Post TAVR balloon aortic valvuloplasty. Temporary right IJ transvenous pacemaker placement. TECHNIQUE Portable supine AP view of the chest was obtained. COMPARISON Chest-prior chest radiographs and CT scans FINDINGS TAVR noted in appropriate position. Right internal jugular temporary pacemaking wire appropriately positioned. The heart is normal in size and configuration.Central pulmonary vasculature appears prominent although is unchanged from prior.Descending thoracic aorta is not sharply marginated, also similar to prior.There are moderately extensive, non consolidative, bilateral patchy and nodular opacities in the lung cline consistent with infiltrates. Small effusion is suggested on the left blunting the costophrenic angle. Biapical pleural thickening. Other pleural surfaces are within normal limits. Scattered degenerative spinal changes. There is no evidence of a pneumothorax or free air under the hemidiaphragms. 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 Procedure Note Natasha Steele, DO - 05/03/2023 EXAM XR CHEST 1 VIEW05/03/2023 4:44 pm HISTORY Baseline initial xray after open heart surgery. Percutaneous femoraltrans catheter aortic valve replacement. Post TAVR balloon aorticvalvuloplasty. Temporary right IJ transvenous pacemaker placement. TECHNIQUE Portable supine AP view of the chest was obtained. COMPARISON Chest-prior chest radiographs and CT scans FINDINGS TAVR noted in appropriate position. Right internal jugular temporarypacemaking wire appropriately positioned. The heart is normal in size and configuration.Central pulmonaryvasculature appears prominent although is unchanged from prior.Descendingthoracic aorta is not sharply marginated, also similar to prior.There aremoderately extensive, non consolidative, bilateral patchy and nodularopacities in the lung cline consistent with infiltrates. Small effusionis suggested on the left blunting the costophrenic angle. Biapicalpleural thickening. Other pleural surfaces are within normal limits.Scattered degenerative spinal changes. There is no evidence of apneumothorax or free air under the hemidiaphragms. Surgical clips in theupper abdomen consistent with splenectomy. IMPRESSION IMPRESSION 1. Concern for congestive failure with interstitial edema 2. Small left pleural effusion. 3. TAVR in good position. Camille Minor DO RADIOLOGY (RAD GENER AL) * ECHO, COMPLETE (2D), TRANS-THORACIC (05/03/2023 2:05 PM EST) [facility] LEFT VENTRICULAR EJECTION FRACTION 60 % [facility] 05/03/2023 12:2 6 PM EST Gonzalez Beltran MD ECHOCARDIOLOGY [facility] * ACT, POINT OF CARE (05/03/2023 1:43 PM EST) [facility] ACT 131 50 - 1,000 secs 05/03/2023 2:19 PM EST [employer] Blood 05/03/2023 1:43 PM EST 05/03/2023 2:19 PM EST Narrative [employer] - 05/03/2023 2:19 PM EST NORMAL (NON-HEPARINIZED) 74-137 SECONDS HEPARINIZED 200+ SECONDS CRITICAL GREATER THAN 1000 SECONDS Gonzalez Beltran MD LAB POINT OF CARE TE ST DOCKED DEVICE UNSOLICITED RESULTS [employer] [facility] [address] [place] [address] * ACT, POINT OF CARE (05/03/2023 1:07 PM EST) [facility] 341 50 - 1,000 secs 05/03/2023 2:19 PM EST [facility] Blood 05/03/2023 1:07 PM EST 05/03/2023 2:19 PM EST Narrative [facility] - 05/03/2023 2:19 PM EST NORMAL (NON-HEPARINIZED) 74-137 SECONDS HEPARINIZED 200+ SECONDS CRITICAL GREATER THAN 1000 SECONDS Gonzalez Beltran MD LAB POINT OF CARE TE ST DOCKED DEVICE UNSOLICITED RESULTS [facility] [address] [place] [address] * (ABNORMAL) DIFFERENTIAL, AUTOMATED (05/03/2023 9:54 AM EST) WBC 7.72 4.00 - 10.80 K/uL 05/03/2023 10:12 AM EST [facility] Neutrophils % 67.1 40.0 - 75.0 % 05/03/2023 10:12 AM EST [facility] Lymphocytes % 18.7 18.0 - 42.0 % 05/03/2023 10:12 AM EST [facility] Monocytes % 11.9(H) 1.0 - 11.0 % 05/03/2023 10:12 AM EST [facility] Eosinophils % 1.2 0.0 - 6.0 % 05/03/2023 10:12 AM EST [facility] Basophils % 0.8 0.0 - 2.0 % 05/03/2023 10:12 AM EST [facility] Immature Granulocytes % 0.3 0.0 - 2.0 % 05/03/2023 10:12 AM EST [facility] Absolute Neutrophils 5.19 1.80 - 7.70 K/uL 05/03/2023 10:12 AM EST [facility] Absolute Lymphocytes 1.44 1.00 - 4.80 K/ul 05/03/2023 10:12 AM EST [facility] Absolute Monocytes 0.92 0.00 - 1.10 K/uL 05/03/2023 10:12 AM EST [facility] Absolute Eosinophils 0.09 0.00 - 0.70 K/uL 05/03/2023 10:12 AM EST [facility] Absolute Basophils 0.06 0.00 - 0.20 K/uL 05/03/2023 10:12 AM EST [facility] Absolute Immature Granulocytes 0.02 0.00 - 0.20 K/uL 05/03/2023 10:12 AM EST [facility] Blood Venous blood specimen / Unknown Venipuncture / Unknown 05/03/2023 9:54 AM EST 05/03/2023 10:04 AM EST Néstor LYONS LAB BLOOD OR DERABLES Performing Organization Address City/State[facility] Co de Phone Number [facility] [address] [place] [address] * ANEMIA CBC (05/03/2023 9:54 AM EST) WBC 7.72 4.00 - 10.80 K/uL 05/03/2023 10:12 AM EST [facility] RBC 4.02 4.50 - 5.25 M/uL 05/03/2023 10:12 AM EST [facility] HGB 14.0 14.0 - 16.8 g/dL 05/03/2023 10:12 AM EST [facility] Comment: Anemia reflex testing triggers on a HGB < 12.0 for Females and HGB < 13.0 for Males in accordance with the WHO Anemia Guidelines Anemia reflex testing triggers on a HGB < 12.0 for Females and HGB < 13.0 for Males in accordance with the WHO Anemia Guidelines HCT 43.7 40.0 - 48.4 % 05/03/2023 10:12 AM EST [facility] MCV 108.7 82.0 - 99.5 fL 05/03/2023 10:12 AM EST [facility] MCH 34.8 27.0 - 34.0 pg 05/03/2023 10:12 AM EST [facility] MCHC 32.0 32.0 - 36.0 g/dL 05/03/2023 10:12 AM EST [facility] RDW 14.2 11.5 - 15.5 % 05/03/2023 10:12 AM EST [facility] PLT 207 140 - 400 K/uL 05/03/2023 10:12 AM EST [facility] MPV 12.1 6.6 - 11.1 fL 05/03/2023 10:12 AM EST [facility] nRBCs 0 <=0 /100 WBCs 05/03/2023 10:12 AM EST LABORATORY [facility] Blood Venous blood specimen / Unknown Venipuncture / Unknown 05/03/2023 9:54 AM EST 05/03/2023 10:04 AM EST Néstor LYONS LAB BLOOD OR DERABLES Performing Organization Address [facility] Co de Phone Number LAB[facility]ATORY [facility] [address] [place] [address] * (ABNORMAL) BNP, NT-PRO (05/03/2023 9:54 AM EST) BNP, NT-Pro 1,501(H) <300 pg/mL 05/03/2023 10:33 AM EST LABORATORY [facility] Blood Venous blood specimen / Unknown Venipuncture / Unknown 05/03/2023 9:54 AM EST 05/03/2023 10:04 AM EST Narrative LABORATORY C - 05/03/2023 10:33 AM EST Exclude Heart Failure: <300 pg/mL Diagnose Heart Failure: Age <50 yr: >450 pg/mL 50-75 yr: >900 pg/mL >75 yr: >1800 pg/mL GFR is 30-59 mL/min: >1200 pg/mL or Age-adjusted values GFR <30 mL/min: do not use, not reliable Prognostic threshold: 1000 pg/mL Gonzalez Beltran MD LAB BLOOD ORDERABLES Performing Organization Address [facility] de Phone Number LABORATORY [place] [address] [place] [address] * (ABNORMAL) BASIC METABOLIC PANEL (05/03/2023 9:54 AM EST) BUN 17 6 - 20 mg/dL 05/03/2023 10:33 AM EST LABORATORY [facility] Creatinine 0.6 0.6 - 1.2 mg/dL 05/03/2023 10:33 AM EST LABORATORY [facility] Estimated Glomerular Filtration Rate >90 >=60 mL/min 05/03/2023 10:33 AM EST LABORATORY [facility] Comment:eGFR is calculated b ased on the CKD-EPI 2020 equation Sodium 140 135 - 146 mmol/L 05/03/2023 10:33 AM EST [facility] Potassium 4.4 3.5 - 5.1 mmol/L 05/03/2023 10:33 AM EST [facility] Chloride 97(L) 98 - 107 mmol/L 05/03/2023 10:33 AM EST [facility] CO2 35(H) 22 - 32 mmol/L 05/03/2023 10:33 AM EST [facility] Anion Gap 8 7 - 15 mmol/L 05/03/2023 10:33 AM EST [facility] Glucose 91 70 - 120 mg/dL 05/03/2023 10:33 AM EST [facility] Calcium 9.5 8.4 - 10.2 mg/dL 05/03/2023 10:33 AM EST [facility] Blood Venous blood specimen / Unknown Venipuncture / Unknown 05/03/2023 9:54 AM EST 05/03/2023 10:04 AM EST Néstor LYONS LAB BLOOD OR DERABLES LABORATORY [facility] [address] [place] [address] * PREPARE PACKED RED BLOOD CELLS (05/03/2023 9:05 AM EST) Unit Product Code [id number] LAB[facility]ATORY [facility] BLOOD BANK Unit Number [id number] LABO RATORY [facility] BLOOD BANK Unit ABO B LABORATORY [facility] BLOOD BANK Unit Rh POS LABORATORY [facility] BLOOD BANK Unit Crossmatch Compatible LAB[facility]ATORY [facility] BLOOD BANK Unit Status RE LABORATO RY [facility] BLOOD BANK Unit Blood Type BPOS [facility] BLOOD BANK Unit Expiration [id number] [facility] BLOOD BANK Unit Barcode 7300 LABORAT ORY C BLOOD BANK Unit Product Code [id number] [facility] BLOOD BANK Unit Number [id number] LABO RATORY [facility] BLOOD BANK Unit ABO B [facility]ORY [facility] BLOOD BANK Unit Rh POS LABORATORY [facility] BLOOD BANK Unit Crossmatch Compatible LABORATORY [facility] BLOOD BANK Unit Status RE LABORATO RY [facility] BLOOD BANK Unit Blood Type BPOS LABORATORY [facility] BLOOD BANK Unit Expiration LABORATORY [facility] BLOOD BANK Unit Barcode 7300 LABORAT ORY [facility] BLOOD BANK 05/03/2023 9:05 AM EST Gonzalez Beltran MD BLD BANK PRODUCT ORD ERABLES LABORATORY [facility] BLOOD BANK [address] [place] [address] * CARDIAC CATHETERIZATION REPORT (05/03/2023) DATE OF PROCEDURE 05/03/2023 [facility] DIAGNOSTIC Gonzalez Khan MD [facility] PROCEDURES TAVR - Replace Aortic Valve Perq No conscious sedation administered by cath/EP lab staff during this procedure. Temporary Pacemaker (Single Lead) [facility] TOTAL CONTRAST VOLUME 33 ml [facility] TOTAL RADIATION 0.11 Gy [facility] COMPLICATIONS No complication None [facility] 05/03/2023 05/03/2023 3:3 6 PM EST Gonzalez Beltran MD CARD CATH [facility] documented in this encounter Visit Diagnoses Diagnosis S/P TAVR (transcatheter aortic valve replacement)- Primary Heart valve replaced by other means Valvular heart disease Endocarditis, valve unspecified, unspecified cause S/P TAVR (transcatheter aortic valve replacement) Heart valve replaced by other means Status post cardiac surgery Post-operative state Other postprocedural status Nonrheumatic mitral valve stenosis [I34.2] Encounter for examination for normal comparison and control in clinical research program [Z00.6] Left bundle-branch block, unspecified [I44.7] Atherosclerosis of aorta (HCC) [I70.0] Atherosclerosis of aorta Nonrheumatic aortic (valve) stenosis [I35.0] Nonspecific intraventricular block [I45.4] Other heart block Nonrheumatic aortic (valve) stenosis with insufficiency Bradycardia Other specified cardiac dysrhythmias Pacemaker Cardiac pacemaker in situ 1st degree AV block First degree atrioventricular block H/O Hodgkin's lymphoma Personal history of Hodgkin's disease Acquired hypothyroidism Unspecified hypothyroidism Coronary artery disease involving [place] coronary artery of [place] heart without angina pectoris Nonrheumatic mitral valve stenosis JULIUS (obstructive sleep apnea) Obstructive sleep apnea (adult) (pediatric) Raynaud's disease without gangrene PSVT (paroxysmal supraventricular tachycardia) Paroxysmal supraventricular tachycardia Hx of melanoma of skin Personal history of malignant melanoma of skin ILD (interstitial lung disease) (HCC) Postinflammatory pulmonary fibrosis BMI less than 19,adult Body Mass Index less than 19, adult Protein-calorie malnutrition (HCC) Unspecified protein-calorie malnutrition 1st degree AV block First degree atrioventricular block documented in this encounter Administered Medications Inactive Administered Medications - up to 3 most recent administrations Medication Order MAR Action Action Date Dose Rate Site Acetaminophen (Tylenol) tab 975 mg 975 mg, Oral, Q6H, First dose on Sun05/03/23 at 1800, Last dose on Sun05/08/23 at 1200, For 5 days, Maximum 4 g acetaminophen/day. Avoid in patients with severe hepatic impairment or severe active liver disease. Use for 5 days., Post-op Given 05/05/2023 5:27 AM EST 975 mg Given 05/04/2023 10:21 PM EST 975 mg Given 05/04/2023 3:24 PM EST 975 mg aspirin chew tab 81 mg 81 mg, Oral, Daily(AM), First dose on Sun05/04/23 at 0900, Until Discontinued Given 05/05/2023 8:23 AM EST 81 mg Given 05/04/2023 9:10 AM EST 81 mg ceFAZolin in dextrose (Ancef) ivpb 2 g 2 g, IV Piggyback, Q8H, 2 doses, First dose on Sun05/03/23 at 2100, Last dose on Sun05/04/23 at 0600, Post-op New Bag 05/04/2023 5:51 AM EST 2 g 100 mL/hr New Bag 05/03/2023 9:02 PM EST 2 g 100 mL/hr cholecalciferol (VIT D3) (Vitamin D3) tab 1,000 Units 1,000 Units, Oral, Daily(AM), First dose on Sun05/04/23 at 0900, Until Discontinued, NOTE 1000 units = 25 mcg Given 05/05/2023 8:22 AM EST 1, 000 Units Given 05/04/2023 9:12 AM EST 1,000 Units CYANOCOBALAMIN (vitamin B-12) tab 100 mcg 100 mcg, Oral, Daily(AM), First dose on Sun05/04/23 at 0900, Until Discontinued Given 05/04/2023 9:12 AM EST 100 mcg Enoxaparin (Lovenox) inj 40 mg 40 mg, Subcutaneous, Daily(AM), First dose on Sun05/04/23 at 0900, Until Discontinued, If patient is on warfarin, inform provider if daily INR value is 2 or greater!, Post-op Given 05/05/2023 8:23 AM EST 40 mg Abdomen Right Lower Given 05/04/2023 9:13 AM EST 40 mg Ab domen Left Lower Ioversol (Optiray 350) 74 % inj 33 mL 33 mL, Intra-Arterial, ONCE, On Padmaja 05/03/23 at 1430, For 1 dose, Intra-Op Given 05/03/2023 1:56 PM EST 33 mL levothyroxine (Levoxyl) tab 75 mcg 75 mcg, Oral, [id number], First dose on Sun05/04/23 at 0630, Until Discontinued Given 05/05/2023 5:27 AM EST 75 mcg Given 05/04/2023 6:37 AM EST 75 mcg magnesium sulfate 1 g in d5w 100mL LOCKED DOSE 1 g, IV Piggyback, PRN Other, Magnesium replacement, Starting on Padmaja 05/03/23 at 1540, Until 05/05/23 at 1529, For 4 doses, 1. Serum creatinine must be less than 1.5 2. Current urine output must be greater than 30 mL/hr. Magnesium level 1.5 - 2.2: Give 1 gm over 1 hour x 1 dose Magnesium level less than 1.5: Give 1 gm over 1 hour x 2 doses Repeat serum magnesium level 1 hour after completion of 2nd dose, Post-op metoprolol succinate XL (toPROL XL) tab 12.5 mg 12.5 mg, Oral, BID (.AM/PM), First dose on Padmaja 05/03/23 at 2100, Until Discontinued, Hold for HR less than 60 or SBP below 100 and notify service if dose is held This med should NOT be Crushed or Chewed. Given 05/05/2023 8:25 AM EST 12.5 mg Given 05/04/2023 10:44 PM EST 12.5 mg Given 05/04/2023 9:12 AM EST 12.5 mg NSS infusion Intravenous, at 25 mL/hr, CONTINUOUS, Starting on Padmaja 05/03/23 at 0945, Until Sun05/04/23 at 1559, Pre-Op Restarted 05/03/2023 1:25 PM EST Continue from Pre-Op 05/03/2023 12:18 PM EST 25 mL/hr New Bag 05/03/2023 10:09 AM EST 25 mL/hr sodium chloride 0.9 % flush peripheral lyssa 3 mL 3 mL, IV Push, QSHIFT, First dose on Padmaja 05/03/23 at 1615, Until Discontinued, Do not flush if lock, PICC, or central line not in place; IV infusing or unable to flush., Post-op Given 05/05/2023 12:00 AM EST 3 mL Given 05/04/2023 9:13 AM EST 3 mL Given 05/04/2023 12:00 AM EST 3 mL traMADol (Ultram) tab 50 mg 50 mg, Oral, Q12H PRN Pain, Severe, Starting on Padmaja 05/03/23 at 1540, Until 05/05/23 at 1529, Post-op documented in this encounter Active and Recently Administered Medications Times are shown in EST. Scheduled Medication Order 05/03/2023 05/04/2023 05/05/2023 Acetaminophen (Tylenol) tab 975 mg 975 mg, Oral, Q6H, First dose on Padmaja 05/03/23 at 1800, Last dose on Sun05/08/23 at 1200, For 5 days, Maximum 4 g acetaminophen/day. Avoid in patients with severe hepatic impairment or severe active liver disease. Use for 5 days., Post-op 2101 (Given - Provider: Fadumo Gunn RN) 0000 (Not Given - Provider: Fadumo Gunn RN - Reason: Parameter(s) Not Met)0910 (Given - Provider: Malaika Neil RN - Comment: previous shift missed)1524 (Given - Provider: Malaika Neil RN)222 (Given - Provider: Heena Murdock RN) 0000 (Not Given - Provider: Heena Murdock RN - Reason: Parameter(s) Not Met - Comment: GIVEN AT 2200)0527 (Given - Provider: Heena Murdock, RICHIE) aspirin chew tab 81 mg 81 mg, Oral, Daily(AM), First dose on Sun05/04/23 at 0900, Until Discontinued 09 (Given - Provider: Malaika Neil RN) 822 (Given - Provider: Fadumo Gunn, RICHIE) ceFAZolin in dextrose (Ancef) ivpb 2 g (COMPLETED) 2 g, IV Piggyback, ONCE, 1 dose, On Padmaja 05/03/23 at 0945, Pre-Op 1233 (Given - Provider: Zach Romo, SRNA) ceFAZolin in dextrose (Ancef) ivpb 2 g (COMPLETED) 2 g, IV Piggyback, Q8H, 2 doses, First dose on Padmaja 05/03/23 at 2100, Last dose on Sun05/04/23 at 0600, Post-op 210 (New Bag - Provider: Fadumo Gunn, RN) 0551 (New Bag - Provider: Fadumo Gunn, RN) cholecalciferol (VIT D3) (Vitamin D3) tab 1,000 Units 1,000 Units, Oral, Daily(AM), First dose on Sun05/04/23 at 0900, Until Discontinued, NOTE 1000 units = 25 mcg 09 (Given - Provider: Malaika Neil RN) 821 (Given - Provider: Fadumo Gnun, RICHIE) CYANOCOBALAMIN (vitamin B-12) tab 100 mcg (CANCELED) 100 mcg, Oral, Daily(AM), First dose on Sun05/04/23 at 0900, Until Discontinued 911 (Given - Provider: Malaika Neil, RICHIE) Enoxaparin (Lovenox) inj 40 mg 40 mg, Subcutaneous, Daily(AM), First dose on Sun05/04/23 at 0900, Until Discontinued, If patient is on warfarin, inform provider if daily INR value is 2 or greater!, Post-op 09 (Given - Provider: Malaika Neil, RICHIE) 822 (Given - Provider: Fadumo Gunn, RICHIE) Ioversol (Optiray 350) 74 % inj 33 mL (COMPLETED) 33 mL, Intra-Arterial, ONCE, On Padmaja 05/03/23 at 1430, For 1 dose, Intra-Op 1356 (Given - Provider: Luis Howe, RT) levothyroxine (Levoxyl) tab 75 mcg 75 mcg, Oral, [id number], First dose on Sun05/04/23 at 0630, Until Discontinued 0637 (Given - Provider: Fadumo Gunn, RICHIE) 0527 (Given - Provider: Heena Murdock, RICHIE) metoprolol succinate XL (toPROL XL) tab 12.5 mg 12.5 mg, Oral, BID (.AM/PM), First dose on Sun05/03/23 at 2100, Until Discontinued, Hold for HR less than 60 or SBP below 100 and notify service if dose is held This med should NOT be Crushed or Chewed. 210 (Given - Provider: Fadumo Gunn, RICHIE) 0912 (Given - Provider: Malaika Neil, RICHIE)2244 (Given - Provider: Heena Murdock, RICHIE - Comment: OK TO GIVE PER ) 0825 (Given - Provider: Fadumo Gunn, RICHIE) sodium chloride 0.9 % flush peripheral lyssa 3 mL 3 mL, IV Push, QSHIFT, First dose on Sun05/03/23 at 1615, Until Discontinued, Do not flush if lock, PICC, or central line not in place; IV infusing or unable to flush., Post-op 1615 (Not Given - Provider: Malaika Neil RN - Reason: Parameter(s) Not Met) 0000 (Given - Provider: Fadumo Gunn, RICHIE)0913 (Given - Provider: Malaika Neil, RICHIE)1600 (Not Given - Provider: Malaika Neil RN - Reason: Parameter(s) Not Met) 0000 (Given - Provider: Heena Murdock, RICHIE)0800 (Due) Continuous Medication Order 05/03/2023 05/04/2023 05/05/2023 NSS infusion (CANCELED) Intravenous, at 25 mL/hr, CONTINUOUS, Starting on Sun05/03/23 at 0945, Until Sun05/04/23 at 1559, Pre-Op 1009 (New Bag - Provider: Malaika Neil, RICHIE)1218 (Continue from Pre-Op - Provider: NEAL Stevens)1324 (Paused - Provider: German Ray CRNA - Comment: Switch to gravity)1325 (Restarted - Provider: German Ray CRNA)1408 (Anes Intra-Op Fluid - Provider: NEAL Stevens) 1559 (Stopped - Provider: Malaika Neil RN - Comment: stopped yesterday) PRN Medication Order 05/03/2023 05/04/2023 05/05/2023 magnesium sulfate 1 g in d5w 100mL LOCKED DOSE 1 g, IV Piggyback, PRN Other, Magnesium replacement, Starting on Padmaja 05/03/23 at 1540, Until 05/05/23 at 1529, For 4 doses, 1. Serum creatinine must be less than 1.5 2. Current urine output must be greater than 30 mL/hr. 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
--- OUTSIDE RECORDS SUMMARY | 2023-10-08 23:12 | External Medical Summary ---
Author Name Unknown Address Unknown Organization K01:[facility] [address] [place] [address] Laboratory Report Ordering Provider Test Date Status NOMI MARES 05/03/2023 17:25:00 Final Observation Date Value Abnormality Reference (Units ) Status Magnesium 05/03/2023 17:25:00 2.0 1.5-2.6 (m g/dL) Final Performing Location [facility] - [address] [place] [address]
--- OUTSIDE RECORDS SUMMARY | 2023-10-08 23:12 | External Medical Summary ---
Author Name Unknown Address Unknown Organization K01:LAB[facility]ATORY [facility] - [address] [place] [address] Laboratory Report Ordering Provider Test Date Status KJ SCHMITZ 05/03/2023 17:25:00 Final Observation Date Value Abnormality Reference (Units ) Status Vitamin B12 05/03/2023 17:25:00 >2000 Above high normal 232-1245 (pg/mL) Final Performing Location [facility] - [address] [place] [address]
--- OUTSIDE RECORDS SUMMARY | 2023-10-08 23:12 | External Medical Summary ---
Author Name Unknown Address Unknown Organization : Laboratory Report Ordering Provider Test Date Status KJ SCHMITZ 05/03/2023 17:25:00 Final Observation Date Value Abnormality Reference (Units ) Status Performing Location
--- OUTSIDE RECORDS SUMMARY | 2023-10-08 23:12 | External Medical Summary | Summary of Care ---
Author Name Unknown Organization [facility] Address [address] [place] [address] Phone [phone] Care Team Providers Care Pit Hoist Operator Name Role Phone Dewayne Pena MD Primary Care Provider [phone] Reason for Visit * Reason Comments NEW PATIENT Encounter Details Date Type Department Care Team (Late st Contact Info) Description 05/08/2023 1:30 PM EST Office Visit Cardiology [facility] [address] [place] [address] Mary Mccann CRNP [address] [place] [address] S/P TAVR (transcatheter aortic valve replacement)*; Nonrheumatic mitral valve stenosis; 1st degree AV block; ILD (interstitial lung disease) [...] Depth unknown, no SLN, Location [facility] Hx of nonmelanoma skin cancer 03/24/2021 Overview: Hx MM date 2013, Depth unknown, no SLN, Location [facility] (still no path in chart, pt confirmed that he had surgery for melanoma at that site and for BCC prior, see below) BCC R forehead 2009 ([facility]) PSVT (paroxysmal supraventricular tachycardia) 0 12/15/2019 Raynaud's disease without gangrene 06/02/2019 Esophageal dysmotility 05/20/2019 JULIUS (obstructive sleep apnea) 05/20/2019 ILD (interstitial lung disease) 05/20/2019 Coronary artery disease invo lving [place] coronary artery of [place] heart without angina pectoris 03/24/2019 Nonrheumatic mitral [...] MCG/0.3 mL, 12 YRS AND ABOVE, IM ([email or web address]) 03/27/2023 COVID-19, mRNA, LNP-s, PF, B ooster, [...] Sign Reading Time Taken Comments Blood Pressure 134/52 05/08/2023 1:34 PM EST Pulse 84 05/08/2023 1:34 PM EST Temperature - - Respiratory Rate - - Oxygen Saturation 98% 05/08/2023 1:34 PM EST Inhaled Oxygen Concentration - - Weight 66.8 kg (147 lb 3.2 oz) 05/08/2023 1:34 P M EST Height 185.4 cm (6' 1") 05/08/2023 1:34 PM EST Body Mass Index 19.42 05/08/2023 1:34 PM EST documented in this encounter Functional Status Functional Status Response Date of Assess ment Do you have serious difficul ty walking or climbing stairs? (5 years old or older) No 05/04/2023 documented as of this encounter Progress Notes * Mary Mccann CRNP - 05/08/2023 1:30 PM EST Dewayne Pena MD One week f/u post TAVR: CC:feeling better. HX:of interstitial lung disease, severe aortic stenosis. NYHA class 2 On discharge metoprolol was held as patient developed 1st degree AV block. Picked up Zio patch (Continuous Cardiac Ambulatory Monitor from [facility]) to monitor further in the setting of new AV block He is feeling better, tolerance to activity has improved. One episode of light headed with sanding. Lasted one minute relieved with rest. Appetite i sgood, Sleeping-well. HOSPITAL COURSE (focused): to 05-05-2023: Guido Daley is a 72 yo M with CAD, PSVT, ILD, hypothyroidism, JULIUS, and Raynaud's who was admitted to [facility] for post-procedural monitoring s/p TAVR (# 34mm Medtronic Evolut FX Aortic Valve) for severe symptomatic aortic stenosis. He developed a LBBB intra-procedurally and required temporary pacemaker wire placement. His LBBB subsequently resolved and the temporary pacing wire was removed. He wasadditionally noted to have at least moderate paravalvular AI post-procedurally for which he was monitored an additional day. The remainder of his hospital course was uncomplicated though patient did develop a 1st degree AV block with a TN interval of 286. As such metoprolol was held on discharge and patient was ordered a Continuous monitoring tech (Zio patch AT) to be picked up OP on 05/07.He wasdischarged home on 05/05/2023 with close PCP, Cardiology, and Electrophysiology follow-up. Past Medical History: Diagnosis Date Atrial fibrillation (HCC) BMI less than 19,adult 03/16/2023 Bronchiectasis ([facility]) Cardiac arrhythmia Coronary artery disease involving [place] coronary artery of [place] heart without angina pectoris 03/24/2019 Hodgkin's disease ([facility]) 1977 s/p radiation Hx of melanoma of skin 03/24/2021 Hx MM date 2013, Depth unknown, no SLN, Location [facility] ILD (interstitial lung disease) ([facility]) Moderate aortic stenosis 03/24/2019 Nonrheumatic mitral valve stenosis 03/24/2019 JULIUS (obstructive sleep apnea) Pulmonary arterial hypertension (HCC) Raynaud's disease without gangrene 06/02/2019 Sleep apnea, obstructive Patient Active Problem List Diagnosis Code H/O Hodgkin's lymphoma Z85.71 Acquired hypothyroidism E03.9 Coronary artery disease involving [place] coronary artery of [place] heart without angina pectoris I25.10 Nonrheumatic mitral valve stenosis I34.2 Moderate aortic stenosis I35.0 Esophageal dysmotility K22.4 JULIUS (obstructive sleep apnea) G47.33 ILD (interstitial lung disease) (HCC) J84.9 Raynaud's disease without gangrene I73.00 PSVT (paroxysmal supraventricular tachycardia) I47.10 Hx of melanoma of skin Z85.820 Hx of nonmelanoma skin cancer Z85.828 PHT (pulmonary hypertension) (HCC) I27.20 Protein-calorie malnutrition (HCC) E46 Aortic root enlargement (HCC) I77.89 Neuromuscular disorder (HCC) G70.9 Senile osteoporosis M81.0 BMI less than 19,adult Z68.1 S/P TAVR (transcatheter aortic valve replacement) Z95.2 1st degree AV block I44.0 Past Surgical History: Procedure Laterality Date ANESTH, CARDIAC ELECTROPHYS 2015 CARDIAC CATH-CARDIOLOGY ONLY approx 2012 CARDIOVERSION,ELECTIVE INTERNA 2011 CORONARY ANGIOGRAPHY W/LEFT HEART CATH Right 03/07/2023 CORONARY ANGIOGRAPHY W/LEFT HEART CATH performed by Armando Beltran MD at [facility] EGD, FLEXIBLE, DIAGNOSTIC 05/21/2019 reflux / [facility] MUSCLE BIOPSY, DEEP Left 04/11/2022 BIOPSY MUSCLE DEEP performed by Sadiq Kennedy MD at [facility] REMOVAL OF SPLEEN, TOTAL 1977 Due to Hodgkin's disease REPLACE AORTIC VALVE, PERCUTANEOUS FEMORAL Bilateral 05/03/2023 REPLACE AORTIC VALVE, PERCUTANEOUS FEMORAL performed by Armando Beltran MD at [facility] REPLACE AORTIC VALVE, PERCUTANEOUS FEMORAL Bilateral 05/03/2023 REPLACE AORTIC VALVE, PERCUTANEOUS FEMORAL performed by Cisco Herrera MD, PhD at [facility] TOTAL HIP REPLACEMENT & PROSTHESIS Left 11/28/2021 Social History Tobacco Use Smoking status: Former Packs/day: 1.00 Years: 10.00 Additional pack years: 0.00 Total pack years: 10.00 Types: Cigarettes Quit date: 06/18/1977 Years since quittin.9 Smokeless tobacco: Never Vaping Use Vaping Use: [...] No current facility-administered medications for this visit. ROS: Constitutional: (-) fever chills sweats or weight loss Cardiovascular: (-) negative: no chest pain, dyspnea, syncope, or palpitations Pulmonary: (+) dyspnea with exertion Abdominal/GI: (-) negative: no pain, heartburn, dysphagia, bleeding, change in bowel habits, nauseaor vomiting Musculoskeletal: (-) negative: no pain Skin: (-) negative: no rash or new or changing moles Neurology: (-) negative: no focal neurologic defect PHYSICAL EXAMINATION BP 134/52 (BP Site: Left Arm, BP Position: Sitting, BP Cuff Size: Regular) | Pulse 84 | Ht 1.854 m (6' 1") | Wt 66.8 kg (147 lb 3.2 oz) | SpO2 98% | BMI 19.42 kg/m | BSA 1.85 m Body mass index is 19.42 kg/m. Constitutional: no acute distress CV: normal rate, normal rhythm, (+) murmur Chest: normal respiratory effort, lungs clear to auscultation and percussion Abdomen: normal: soft, bowel sounds normal, no masses, tenderness or organomegaly Musculoskeletal: (-) negative Extremities: no clubbing, cyanosis, or edema, otherwise grossly normal, warm, and dry Skin: warm, dry, intact, right groin access site with ecchymotic edges. Smal lpea size lump at site, no bruit. : Neuro: {neuro exam:97932::"alert","oriented to person, place, and time ICD-10-CM 1. S/P TAVR (transcatheter aortic valve replacement) Z95.2 2. Nonrheumatic mitral valve stenosis I34.2 3. 1st degree AV block I44.0 4. ILD (interstitial lung disease) ([facility]) J84.9 He is feeling better one week post TAVR, one episode of light headiness. Right groin Access site is dry, peas size lump. No pain or bruit. Ist degree AV block on EKG, rate is 98. He has a ziopatch. Still with some SOB, he has lung disease which is likely contributing. RTC in one month, with echo and EKG. May return to driving in 2 weeks post procedure. I spent a total of 30-39 minutes (exact time 30 mins) on the date of service in preparation, delivery, and documentation of the care provided to Guido Daley excluding any time spent in the performance of separately billed services. ELOY Mercado Cardiology [address] [address] 05/08/2023 documented in this encounter Nursing Notes * Luis Peterson, Student - 05/08/2023 1:32 PM EST Patient was instructed to not get up on the exam table/exam chair until directed and assisted by their provider; patient is to remain seated in the chair/ wheelchair/ exam table/ exam chair for fall prevention and safety reasons. Patient is aware to have assistance to step down off exam table/exam chair with personnel. Patient voiced full comprehension of instructions. documented in this encounter Plan of Treatment Upcoming Encounters Date Type Department Care Team (Late st Contact Info) Description 05/14/2023 11:00 AM EST Office Visit Family Practice [facility] [address] [facility] [place] [address] Dewayne Pena MD [address] [facility] [place] [address] 06/15/2023 1:30 PM EST Laboratory Laboratory, [facility] [address] [facility] [place] [id number] Senait Ross [address] [facility] [place] [address] 06/15/2023 2:00 PM EST Office Visit Cardiology, [facility] [address] [facility] [place] [address] Blessing Coronel CRNP 132 [facility] [place] [address] 06/25/2023 10:20 AM EST Office Visit Pulmonary Medicine, [facility] [address] [facility] [place] [address] Juan Pablo Marsh MD [address] [place] [address] 07/02/2023 7:15 AM EST Cardiac Studies Cardiac Studies, [facility] [address] [facility] [place] [address] 09/14/2023 1:20 PM EDT Office Visit Family Practice [facility] [address] [facility] [place] [address] Dewayne Pena MD [address] [facility] [place] [address] 10/02/2023 1:40 PM EDT Office Visit Rheumatology [address] [place] [address] Timo Guzman MD [address] [place] [address] [place] [address] 04/15/2024 10:40 AM EDT Office Visit Dermatology [facility] [address] [place] [address] Jonnathan House PA-C [address] [place] [address] Health Maintenance Due Date Last [...] D LEVEL ONCE IN A LIFETIME-USE SMARTSET# [id number] Completed 11/03/2022, 11/20/2018 Influenza Vaccine (FLU shot) [...] this encounter Medical Devices Implanted Type Area Visiting Teacher Device Identifier Shelf Expiration Date Model / Serial / Lot Cath Thermodilution 6fr - [id number] Implanted:Qty: 1 on 03/07/2023 by Armando Beltran MD at [facility] [employer] KRISTYN [id number] 10/10/2024 [id number] / / [id number] Valve Aortic Transcath Fx 34mm - [id number] Implanted:Qty: 1 on 05/03/2023 by Armando Beltran MD at [facility] [employer] [id number] 08/10/2024 [id number]- 34 / [id number] / [id number] documented as of this encounter Visit Diagnoses Diagnosis S/P TAVR (transcatheter aortic valve replacement)- Primary Heart valve replaced by other means Nonrheumatic mitral valve stenosis 1st degree AV block First degree atrioventricular block ILD (interstitial lung disease) (HCC) Postinflammatory pulmonary fibrosis documented in this encounter Advance Directives Documents on File Type Date Recorded Patient [id number] Software Engineer Expl anation POLST 03/06/2022 [place] [...] Direct lorenzo occurred with: Patient Care Teams Pit Hoist Operator Relationship Specialty Start Date End Date Dewayne Pena MD [address] [place] [address] PCP - General Family Medicine 04/30/23 documented as of this encounter
--- OUTSIDE RECORDS SUMMARY | 2023-10-08 23:12 | External Medical Summary | Summary of Care ---
Author Name Unknown Organization [facility] Address [address] [place] [address] Phone [phone] Care Team Providers Care Cable Inspector Name Role Phone Dewayne Pena MD Primary Care Provider [phone] Reason for Visit * Auth/Cert Specialty Diagnoses / Procedures Referred By Krystian t Referred To Contact Diagnoses Aortic stenosis Aortic stenosis [I35.0] Procedures REPLACE AORTIC VALVE, PERCUTANEOUS FEMORAL REPLACE AORTIC VALVE, PERCUTANEOUS FEMORAL REPLACE AORTIC VALVE, PERCUTANEOUS FEMORAL REPLACE AORTIC VALVE, PERCUTANEOUS FEMORAL Referral ID Status Reason Start Date Expiration Date Visits Re quested Visits Authorized [id number] Encounter Details Date Type Department Care Team (Latest Contact Info) Description 05/03/2023 9:24 AM EST - 05/03/2023 11:59 PM EST Hospital Encounter Cardiac Studies [facility] [address] [place] [address] Discharge Disposition: Home - Self Care Allergies No known active allergiesdocumented as of this encounter (statuses as of 05/04/2023) Medications Medication Sig Dispensed Refills Start Date End Date Status Acetylcysteine (NAC 600) 600 MG CAPS Take 1 Tab by mouth 2 times a day. 60 Cap 0 05/20/2019 Suspended Additional Information Cyanocobalamin (B-12) 100 MCG TABS Take by mouth 1 Tablet daily . 0 Suspended Cholecalciferol 25 MCG (1000 UT) Oral Capsule Take 1 Capsule by mouth in the morning. 0 Suspended Respiratory Therapy Supplies Device Use as directed. AutoPAP 5-20 cm 0 Suspended CPAP every night at bedtime . Auto 5-20 cm 0 Suspended Turmeric Curcumin Oral Capsule Take by mouth 1 Capsule daily . 0 Suspended Metoprolol Succinate ER 25 MG Oral Tablet Extended Release 24 Hour (toPROL XL)Indications:PSVT (paroxysmal supraventricular tachycardia),Sinus tachycardia Take 0.5 Tablets by mouth in the morning and 0.5 Tablets before bedtime. 90 Tablet 3 09/04/2022 Suspended Additional Information Aspirin 81 MG Oral Tablet Chewable Take 1 Tablet by mouth in the morning. 90 Tablet 3 03/07/2023 03/06/20 Suspended Additional Information Levothyroxine Sodium 75 MCG Oral Tablet (Levoxyl) (at least 30 min prior to breakfast or other meds) 90 Tablet 3 03/16/2023 Suspended Additional Information documented as of this encounter (statuses as of 05/04/2023) Active Problems Problem Noted Date Diagnosed Date S/P TAVR (transcatheter aortic valve replacement ) 05/03/2023 BMI less than 19,adult 03/16/2023 Senile osteoporosis 09/28/2022 Protein-calorie malnutrition 07/07/2022 Aortic root enlargement 07/07/2022 Neuromuscular disorder 07/07/2022 PHT (pulmonary hypertension) 06/02/2021 Hx of melanoma of skin 03/24/2021 Overview: Hx MM date 2013, Depth unknown, no SLN, Location [facility] Hx of nonmelanoma skin cancer 03/24/2021 Overview: Hx MM date 2013, Depth unknown, no SLN, Location [facility] (still no path in chart, pt confirmed that he had surgery for melanoma at that site and for BCC prior, see below) [place]CC [place] forehead 2008 ([place]) PSVT (paroxysmal supraventricular tachycardia) 0 12/15/2019 Raynaud's disease without gangrene 06/02/2019 Esophageal dysmotility 05/20/2019 JULIUS (obstructive sleep apnea) 05/20/2019 ILD (interstitial lung disease) 05/20/2019 Coronary artery disease invo lving [place] coronary artery of [place] heart without angina pectoris 03/24/2019 Nonrheumatic mitral valve stenosis 03/24/2019 Moderate aortic stenosis 03/24/2019 H/O Hodgkin's lymphoma 07/05/2018 Acquired hypothyroidism 07/05/2018 documented as of this encounter (statuses as of 05/04/2023) Resolved Problems Problem Noted Date Diagnosed Date Resolved Date Osteoporotic fracture of left hip 09/28/2022 03/14/2023 Sinus tachycardia 03/16/2022 03/14/2023 Prediabetes 02/28/2021 02/01/2023 Overview: Per Prediabetes protocol Moderate protein malnutrition 12/15/2019 03/14/2023 Ankylosing spondylitis of cervical region 12/15/2019 07/07/2022 H/O atrial fibrillation with out current medication 07/05/2018 03/14/2023 documented as of this encounter (statuses as of 05/04/2023) Immunizations Name Administration Dates Next Due COVID-19 mRNA, LNP-s, No Pre serve, 2-Dose Series (Moderna) 08/21/2020,07/17/2020 COVID-19, MRNA-LNP, 23-24, P F, 30 MCG/0.3 mL, 12 YRS AND ABOVE, IM ([employer]) 03/27/2023 COVID-19, mRNA, LNP-s, PF, B ooster, 100mcg/0.5mg (Moderna) 10/13/2021,04/13/2021 Covid-19, Mrna, Lnp-s, Pf, B ivalent, 30 Mcg, IM, 12 yrs and above (iFit) 11/09/2022,03/10/2022 PPD 12/29/2020,12/24/2018,12/03/2018 Pneumococcal Conjugate Vacc, 13 [...] on file documented as of this encounter Plan of Treatment Upcoming Encounters Date Type Department Care Team (Late st Contact Info) Description 05/08/2023 1:00 PM EST Cardiac Studies [facility] [place] [address] [place] [address] [place] [address] [place] [address] 05/08/2023 1:30 PM EST Office Visit Cardiology [facility] [address] [place] [address] Miguelina Mg CRNP [address] [place] [facility] [place] [address] 06/15/2023 1:30 PM EST [address] Laboratory[address] [address] [facility] [address] [facility] [place], [place] [address] 06/15/2023 2:00 PM EST Office Visit Cardiology, [facility] [address] [facility] [place] [address] Blessing Coronel CRNP 132 [place] [address] 06/25/2023 10:20 AM EST Office Visit Pulmonary Medicine, [facility] [address] [facility] [place] [address] Juan Pablo Marsh MD [address] [place] [address] 07/02/2023 7:15 AM EST Cardiac Studies Cardiac Studies, [facility] [address] [facility] [place] [address] 09/14/2023 1:20 PM EDT Office Visit Family Practice [facility] [address] [facility] [place] [address] Dewayne Pena MD [facility] [place] [address] 10/02/2023 1:40 PM EDT Office Visit Rheumatology [address] [place] [address] Timo Guzman MD [address] [place] [address] [place] [address] 04/15/2024 10:40 AM EDT Office Visit Dermatology [facility] [address] [place] [address] Jonnathan House PA-C [address] [place] [address] Health Maintenance Due Date Last Done [...] D LEVEL ONCE IN A LIFETIME-USE SMARTSET# [id number] Completed 11/03/2022, 11/20/2018 Influenza Vaccine (FLU shot) [...] this encounter Medical Devices Implanted Type Area Student Recruiter Device Identifier Shelf Expiration Date Model / Serial / Lot Cath Thermodilution 6fr - [id number] Implanted:Qty: 1 on 03/07/2023 by Armando Beltran MD at [facility] [employer] [place] [id number] 10/10/2024 [id number] / / [id number] Valve Aortic Transcath Fx 34mm - [id number] Implanted:Qty: 1 on 05/03/2023 by Armando Beltran MD at [facility] [employer] [id number] 08/10/2024 EVOLUTFX- 34 / [id number] / [id number] documented as of this encounter Procedures Procedure Name Priority Date/Time Associated Diagnosis Comments ECHO, COMPLETE (2D), TRANS-THORACIC Routine 05/03/2023 2:05 PM EST Status post cardiac surgery documented in this encounter Results * ECHO, COMPLETE (2D), TRANS-THORACIC (05/03/2023 2:05 PM EST) LEFT VENTRICULAR EJECTION FRACTION 60 % [facility] 05/03/2023 12:2 6 PM EST Armando Beltran MD ECHOCARDIOLOGY [facility] documented in this encounter Advance Directives Documents on File Type Date Recorded Patient Physician Relations Manager Expl anation POLST 03/06/2022 [place] DERS FOR LIFE-SUSTAINING TREATMENT POLST 12/13/2021 [place] DERS FOR LIFE-SUSTAINING TREATMENT Latest Code Status on File Code Status Date Activated Date Inactivated Comments Full Code 05/03/2023 3:42 PM This orde r reflects the patients wishes and were consensually [...] Direct lorenzo occurred with: Patient Care Teams Cable Inspector Relationship Specialty Start Date End Date Dewayne Pena MD [address] [place] [address] PCP - General Family Medicine 04/30/23 documented as of this encounter
--- OUTSIDE RECORDS SUMMARY | 2023-10-08 23:12 | External Medical Summary ---
Author Name Unknown Address Unknown Organization K01:[facility] [address] [place] [address] Laboratory Report Ordering Provider Test Date Status NOMI MARES 05/05/2023 05:46:00 Final Observation Date Value Abnormality Reference (Units ) Status Magnesium 05/05/2023 05:46:00 2.0 1.5-2.6 (m g/dL) Final Performing Location [facility] [address] [place] [address]
--- OUTSIDE RECORDS SUMMARY | 2023-10-08 23:12 | External Medical Summary | Summary of Care ---
Author Name Unknown Organization [facility] Address [address] [place] [address] Phone [phone] Care Team Providers Care Center Punch Operator Name Role Phone Dewayne Pena MD Primary Care Provider [phone] [phone] Encounter Details Date Type Department Care Team (Late st Contact Info) Description 05/04/2023 Population Health External Data Unspecified Department Allergies No known active allergiesdocumented as of [...] the morning. 90 Tablet 3 03/07/2023 03/06/20 24 Suspended Additional Information Levothyroxine Sodium 75 MCG [...] 2013, Depth unknown, no SLN, Location R caodaism Hx of nonmelanoma skin cancer 03/24/2021 Overview: Hx MM date 2013, Depth unknown, no SLN, Location R caodaism (still no path in chart, pt confirmed that he had surgery for melanoma at that site and for BCC prior, see below) BCC R forehead 2008 ([facility]) PSVT (paroxysmal supraventricular tachycardia) 0 12/15/2019 Raynaud's disease without gangrene 06/02/2019 Esophageal dysmotility 05/20/2019 JULIUS (obstructive sleep apnea) 05/20/2019 ILD (interstitial lung disease) 05/20/2019 Coronary artery disease invo lving [place] coronary artery of eagle heart without angina pectoris 03/24/2019 Nonrheumatic mitral [...] MCG/0.3 mL, 12 YRS AND ABOVE, IM ([facility]) 03/27/2023 COVID-19, mRNA, LNP-s, PF, B [...] Average Number of Drinks Not on file 01/18/2 019 Frequency of Binge Drinking Not on [...] Cardiac Studies Card[facility] Studies [facility] [place] [address] [place] [address] [place], [place] [address] [place] [address] 05/08/2023 1:30 PM EST Office Visit Cardiology [facility], [place] [address] [place] [address] Miguelina Mg CRNP [address] [place] [address] 06/15/2023 1:30 PM EST Laboratory Laboratory, [facility] [address] [place] [address] [facility] Lab [facility] [address] [place] [address] 06/15/2023 2:00 PM EST Office Visit Cardiology, [facility] 132 [place] [address] Blessing Coronel CRNP 132 [place] [address] 06/25/2023 10:20 AM EST Office Visit Pulmonary Medicine, [facility] [address] [place] [address] Juan Pablo Marsh MD [address] [place] [address] 07/02/2023 7:15 AM EST Cardiac Studies Cardiac Studies, [facility] [address] [facility] [place] [address] 09/14/2023 1:20 PM EDT Office Visit Family Practice [facility] [address] [facility] [place] [address] Dewayne Pena MD [address] [facility] [place] [address] 10/02/2023 1:40 PM EDT Office Visit Rheumatology [address] [place] [address] Timo Guzman MD [address] [place] [address], [place] [address] 04/15/2024 10:40 AM EDT Office Visit Dermatology [facility] [address] [place] [address] Jonnathan House PA-C [address] [place] [address] Health Maintenance Due Date Last Done [...] D LEVEL ONCE IN A LIFETIME-USE SMARTSET# [id number] Completed 11/03/2022, 11/20/2018 Influenza Vaccine (FLU shot) [...] this encounter Medical Devices Implanted Type Area Security Control Room Officer Device Identifier Shelf Expiration Date Model / Serial / Lot Cath Thermodilution 6fr - [id number] Implanted:Qty: 1 on 03/07/2023 by Armando Beltran MD at [facility] [employer] KRISTYN [id number] 10/10/2024 [id number] / / [id number] Valve Aortic Transcath Fx 34mm - [id number] Implanted:Qty: 1 on 05/03/2023 by Armando Beltran MD at [facility] [employer] [id number] 08/10/2024 EVOLUTFX- 34 / [id number] / [id number] documented as of this encounter Advance Directives Documents on File Type Date Recorded Patient Fitting Room Checker Expl anation POLST 03/06/2022 [place] [facility] FOR LIFE-SUSTAINING TREATMENT POLST 12/13/2021 [place] [...] Direct lorenzo occurred with: Patient Care Teams Center Punch Operator Relationship Specialty Start Date End Date Dewayne Pena MD [address] [place] [address] PCP - General Family Medicine 04/30/23 documented as of this encounter
--- OUTSIDE RECORDS SUMMARY | 2023-10-08 23:12 | External Medical Summary ---
Author Name Unknown Address Unknown Organization [id number][place] [place] [facility] [address] [place] [facility] [address] Laboratory Report Ordering Provider Test Date Status NOMI MARES 05/04/2023 04:57:00 Final Observation Date Value Abnormality Reference (Units ) Status BUN 05/04/2023 04:57:00 18 6-20 (mg/dL) Final Creatinine 05/04/2023 04:57:00 0.7 0.6-1.2 (mg/dL) Final Glomerular filtration rate/1.73 sq M.predicted [Volume Rate/Area] in Serum, Plasma or Blood by Creatinine-based formula (CKD-EPI) 05/04/2023 04:57:00 >90 >=60 (mL/min) Final eGFR is calculated based on the CKD-EPI 2020 equation SODIUM 05/04/2023 04:57:00 139 135-146 (m mol/L) Final Potassium 05/04/2023 04:57:00 4.2 3.5-5.1 (m mol/L) Final Cl 05/04/2023 04:57:00 101 98-107 (mm ol/L) Final CO2 05/04/2023 04:57:00 29 22-32 (mmo l/L) Final Anion gap 05/04/2023 04:57:00 9 7-15 (mmol /L) Final Glucose 05/04/2023 04:57:00 94 70-120 (mg /dL) Final Calcium 05/04/2023 04:57:00 9.1 8.4-10.2 ( mg/dL) Final Performing Location [facility] [place] [address] [facility] [address]
--- OUTSIDE RECORDS SUMMARY | 2023-10-08 23:12 | External Medical Summary ---
Author Name Unknown Address Unknown Organization K01[place] [place] [address] [place] [address] Laboratory Report Ordering Provider Test Date Status KJ SCHMITZ 05/03/2023 17:25:00 Final Observation Date Value Abnormality Reference (Units ) Status Folic Acid 05/03/2023 17:25:00 19.5 >4.5 (ng/ mL) Final Performing Location [facility] - [address] [place] [address]
--- OUTSIDE RECORDS SUMMARY | 2023-10-08 23:12 | External Medical Summary ---
Author Name Unknown Address Unknown Organization K01:[facility] - [address] [place] [address] Laboratory Report Ordering Provider Test Date Status NOMI MARES 05/04/2023 04:57:00 Final Observation Date Value Abnormality Reference (Units ) Status Magnesium 05/04/2023 04:57:00 2.1 1.5-2.6 (m g/dL) Final Performing Location [facility] - [address] [place] [address]
--- OUTSIDE RECORDS SUMMARY | 2023-10-08 23:12 | External Medical Summary | Summary of Care ---
Author Name Unknown Organization [facility] Address [address] [place] [address] Phone [phone] Care Team Providers Care Shampoo Technician Name Role Phone Dewayne Pena MD Primary Care Provider [phone] Reason for Visit * Reason Onset Date Comments Cardiac Rehab 05/17/2023 Encounter Details Date Type Department Care Team (Late st Contact Info) Description 05/17/2023 Telephone Cardiac Rehab, [facility] [address] [place] [address] Zoraida Del Rosario, wet roaster (/) Allergies No known active allergiesdocumented as of this encounter (statuses as of 05/21/2023) Medications Medication Sig Dispensed Refills Start Date [...] as of this encounter (statuses as of 05/21/2023) Active Problems Problem Noted Date Diagnosed Date 1st degree AV block 05/05/2023 S/P TAVR (transcatheter aortic valve replacement ) 05/03/2023 BMI less than 19,adult 03/16/2023 Senile osteoporosis 09/28/2022 Protein-calorie malnutrition 07/07/2022 Neuromuscular disorder 07/07/2022 PHT (pulmonary hypertension) 06/02/2021 Hx of melanoma of skin 03/24/2021 Overview: Hx MM date 2013, Depth unknown, no SLN, Location R jain PSVT (paroxysmal supraventricular tachycardia) 0 12/15/2019 Raynaud's disease without gangrene 06/02/2019 Esophageal dysmotility 05/20/2019 JULIUS (obstructive sleep apnea) 05/20/2019 ILD (interstitial lung disease) 05/20/2019 Coronary artery disease invo lving [place] coronary artery of [place] heart without angina pectoris 03/24/2019 Nonrheumatic mitral valve stenosis 03/24/2019 H/O Hodgkin's lymphoma 07/05/2018 Acquired hypothyroidism 07/05/2018 documented as of this encounter (statuses as of 05/21/2023) Resolved Problems Problem Noted Date Diagnosed Date Resolved Date Osteoporotic fracture of left hip 09/28/2022 03/14/2023 Aortic root enlargement 07/07/202204/19 Sinus tachycardia 03/16/2022 03/14/2023 Hx of nonmelanoma skin cancer 03/24/2021 05/14/2023 Overview: Hx MM date 2013, Depth unknown, no SLN, Location R jain (still no path in chart, pt confirmed that he had surgery for melanoma at that site and for BCC prior, see below) BCC R forehead 2008 ([facility]) Prediabetes 02/28/2021 02/01/2023 Overview: Per Prediabetes protocol Moderate protein malnutrition 12/15/2019 03/14/2023 Ankylosing spondylitis of cervical region 12/15/2019 07/07/2022 Moderate aortic stenosis 03/24/2019 H/O atrial fibrillation with out current medication 07/05/2018 03/14/2023 documented as of this encounter (statuses as of 05/21/2023) Immunizations Name Administration Dates Next Due COVID-19 [...] encounter Miscellaneous Notes * Telephone Encounter - Zoraida Del Rosario RN - 05/21/2023 1:51 PM EST Insurance called and patient is going to come for interview on 06/05 at 0830 * Telephone Encounter - Zoraida Del Rosario RN - 05/17/2023 3:43 PM EST Patient called in expressing interested in CR program. Took phone number and printed referral out of chart. Will be calling insurance and staying in contact with patient. documented in this encounter Plan of Treatment Upcoming Encounters Date Type Department Care Team (Late st Contact Info) Description 06/05/2023 8:30 AM EST Nurse Only Cardiac Rehab, [facility] [address] [place] [address] [facility], Nurse Cardiac Rehab Interviews [address] [place] [address] 06/15/2023 1:30 PM EST Laboratory Laboratory, [facility] [address] [place] [address] [facility] [place] [address] 06/15/2023 2:00 PM EST Office Visit Cardiology, [facility] [address] [facility] [place] [address] Blessing Coronel CRNP 132 [facility] [place] [address] 06/25/2023 10:20 AM EST Office Visit Pulmonary Medicine, [facility] 132 [facility] [place], [place] [address] Juan Pablo Marsh MD [address] [place] [address] 07/02/2023 7:15 AM EST Cardiac Studies Cardiac Studies, [facility] [address] [facility] [place], [place] [address] 07/09/2023 2:20 PM EST Office Visit Sleep Disorders Ctr [facility] 132 [facility] [place], [place] [phone] Cara Brantley DO 132 [facility] [place] [address] 09/14/2023 1:20 PM EDT Office Visit Family Practice [facility] [address] [place] [address] Dewayne Pena MD [address] [facility] [place] [address] 10/02/2023 1:40 PM EDT Office Visit Rheumatology [address] [place] [address] Timo Guzman MD [address] [place] [address] [place] [address] 04/15/2024 10:40 AM EDT Office Visit Dermatology [facility] [address] [place] [address] Jonnathan House PA-C [address] [place], [place] [phone] Health Maintenance Due Date Last Done Comments [...] D LEVEL ONCE IN A LIFETIME-USE SMARTSET# [id number] Completed 11/03/2022, 11/20/2018 Influenza Vaccine (FLU shot) [...] this encounter Medical Devices Implanted Type Area Window Caser Device Identifier Shelf Expiration Date Model / Serial / Lot Cath Thermodilution 6fr - [id number] Implanted:Qty: 1 on 03/07/2023 by Armando Beltran MD at [facility] [employer] KRISTYN [id number] 10/10/2024 [id number] / / [id number] Valve Aortic Transcath Fx 34mm - [id number] Implanted:Qty: 1 on 05/03/2023 by Armando Beltran MD at [facility] [employer] [id number] 08/10/2024 EVOLUTFX- 34 / [id number] / [id number] documented as of this encounter Advance Directives Documents on File Type Date Recorded Patient Airframe And Powerplant Technician Expl anation POLST 03/06/2022 [place] [facility] FOR LIFE-SUSTAINING TREATMENT POLST 12/13/2021 [place] [facility] FOR LIFE-SUSTAINING TREATMENT Latest Code [...] Direct lorenzo occurred with: Patient Care Teams Shampoo Technician Relationship Specialty Start Date End Date Dewayne Pena MD [address] [place] [address] PCP - General Family Medicine 04/30/23 documented as of this encounter
--- OUTSIDE RECORDS SUMMARY | 2023-10-08 23:12 | External Medical Summary | Summary of Care ---
Author Name Unknown Organization [facility] Address [address] [place] [address] Phone [phone] Care Team Providers Care Protection Officer Name Role Phone Dewayne Pena MD Primary Care Provider [phone] Reason for Visit * Auth/Cert Specialty Diagnoses / Procedures Referred By Krystian t Referred To Contact Diagnoses Aortic stenosis Aortic stenosis [I35.0] Procedures REPLACE AORTIC VALVE, PERCUTANEOUS FEMORAL REPLACE AORTIC VALVE, PERCUTANEOUS FEMORAL REPLACE AORTIC VALVE, PERCUTANEOUS FEMORAL REPLACE AORTIC VALVE, PERCUTANEOUS FEMORAL Referral ID Status Reason Start Date Expiration Date Visits Re quested Visits Authorized [id number] Encounter Details Date Type Department Care Team (Latest Contact Info) Description 05/04/2023 6:29 AM EST - 05/04/2023 11:59 PM EST Hospital Encounter Cardiac Studies [facility] [address] [place] [address] Discharge Disposition: Home - Self [...] other meds) 90 Tablet 3 3 Active Metoprolol Succinate ER 25 MG Oral Tablet [...] Depth unknown, no SLN, Location R yazidi Hx of nonmelanoma skin cancer 03/24/2021 Overview: Hx MM date 2013, Depth unknown, no SLN, Location R yazidi (still no path in chart, pt confirmed that he had surgery for melanoma at that site and for BCC prior, see below) BCC R forehead 2008 ([facility]) PSVT (paroxysmal supraventricular tachycardia) 0 12/15/2019 Raynaud's disease without gangrene 06/02/2019 Esophageal dysmotility 05/20/2019 JULIUS (obstructive sleep apnea) 05/20/2019 ILD (interstitial lung disease) 05/20/2019 Coronary artery disease invo lving [place] coronary artery of [place] heart without angina pectoris 03/24/2019 Nonrheumatic mitral [...] Cardiac Studies Card[facility] Studies [facility] [place] [address] [place] [address] [place], [facility] [address] [place] [address] 05/08/2023 1:30 PM EST Office Visit Cardiology [facility] [address] [place] [address] Miguelina Mg CRNP [address] [place] [address] 06/15/2023 1:30 PM EST Laboratory Laboratory, [address] [phone] [facility] [place] [address] 06/15/2023 2:00 PM EST Office Visit Cardiology, [facility] 132 [facility] [place] [address] Blessing Coronel CRNP 132 [facility] [place] [address] 06/25/2023 10:20 AM EST Office Visit Pulmonary Medicine, [facility] [address] [facility] [place] [address] Juan Pablo Marsh MD [address] [place] [address] 07/02/2023 7:15 AM EST Cardiac Studies Cardiac Studies, [facility] [address] [facility] [place] [address] 09/14/2023 1:20 PM EDT Office Visit Family Practice [facility] [address] [facility] [place] [address] Dewayne Pena MD 132 [employer] [place] [address] 10/02/2023 1:40 PM EDT Office Visit Rheumatology [place] [address] [place] [address] Timo Guzman MD [facility] [place], [place] [address] 04/15/2024 10:40 AM EDT Office Visit Dermatology [facility] [address] [place] [address] Jonnathan House PA-C [address] [place] [address] Health Maintenance Due Date Last Done [...] D LEVEL ONCE IN A LIFETIME-USE SMARTSET# [id number] Completed 11/03/2022, 11/20/2018 Influenza Vaccine (FLU shot) [...] this encounter Medical Devices Implanted Type Area Material Planning Analyst Device Identifier Shelf Expiration Date Model / Serial / Lot Cath Thermodilution 6fr - [id number] Implanted:Qty: 1 on 03/07/2023 by Armando Beltran [place] [facility] [employer] [id number] 10/10/2024 [id number] / / [id number] Valve Aortic Transcath Fx 34mm - [id number] Implanted:Qty: 1 on 05/03/2023 by Armando Beltran MD at [facility] [employer] [id number] 08/10/2024 EVOLUTFX- 34 / [id number] / [id number] documented as of this encounter Procedures Procedure Name Priority Date/Time Associated Diagnosis Comments ECHO, COMPLETE (2D), TRANS-THORACIC Routine 05/04/2023 9:57 AM EST S/P TAVR (transcatheter aortic valve replacement) documented in this encounter Results * ECHO, COMPLETE (2D), TRANS-THORACIC (05/04/2023 9:57 AM EST) LEFT VENTRICULAR EJECTION FRACTION 55 % [facility] 05/04/2023 7:04 AM EST Camille Vieyra DO ECHOCARDIOLOGY [facility] documented in this encounter Advance Directives Documents on File Type Date Recorded Patient [employer] Principal Expl anation POLST 03/06/2022 [place] OR DERS [...] Direct lorenzo occurred with: Patient Care Teams Protection Officer Relationship Specialty Start Date End Date Dewayne Pena MD [address] [place] [address] PCP - General Family Medicine 04/30/23 documented as of this encounter
--- OUTSIDE RECORDS SUMMARY | 2023-10-08 23:12 | External Medical Summary | Summary of Care ---
Author Name Unknown Organization [facility] Address [address] [address] Phone [phone] Care Team Providers Care Library Sales Consultant Name Role Phone Dewayne Pena MD Primary Care Provider [phone] Reason for Visit * Reason Onset Date Comments Hospital Follow-Up Pt here for h ospital follow up, noticed a painful lump on incision site Hospital Follow-Up 05/14/2023 Encounter Details Date Type Department Care Team (Latest Contact Info) Description 05/14/2023 11:00 AM EST Office Visit [facility] [address] [place] [address] Dewayne Pena MD [address] [place] [phone] Hospital discharge follow-up*; S/P TAVR (transcatheter aortic valve replacement); JULIUS (obstructive sleep apnea); ILD (interstitial lung disease) ([facility]); PSVT (paroxysmal supraventricular tachycardia); 1st degree AV block; Coronary artery disease involving big sandy coronary artery of big sandy heart without angina pectoris; PHT (pulmonary hypertension) ([facility]); Neuromuscular disorder ([facility]); Esophageal dysmotility; Mild protein-calorie malnutrition ([facility]); H/O Hodgkin's lymphoma Allergies No known active allergiesdocumented as of this encounter (statuses as of 05/14/2023) Medications Medication Sig Dispensed Refills Start Date [...] as of this encounter (statuses as of 05/14/2023) Active Problems Problem Noted Date Diagnosed Date [...] disease) 05/20/2019 Coronary artery disease invo lving big sandy coronary artery of big sandy heart without angina pectoris 03/24/2019 Nonrheumatic mitral valve stenosis 03/24/2019 H/O Hodgkin's lymphoma 07/05/2018 Acquired hypothyroidism 07/05/2018 documented as of this encounter (statuses as of 05/14/2023) Resolved Problems Problem Noted Date Diagnosed Date [...] as of this encounter (statuses as of 05/14/2023) Immunizations Name Administration Dates Next Due COVID-19 [...] Sign Reading Time Taken Comments Blood Pressure 120/70 05/14/2023 10:52 AM EST Pulse 92 05/14/2023 10:52 AM EST Temperature 35.7 C (96.2 F) 05/14/2023 10:[address] Respiratory Rate 18 05/14/2023 10:52 AM EST Oxygen Saturation - - Inhaled Oxygen Concentration - - Weight 67.1 kg (148 lb) 05/14/2023 10:52 AM EST Height 185.4 cm (6' 1") 05/14/2023 10:52 AM EST Body Mass Index 19.53 05/14/2023 10:52 AM EST documented in this encounter Functional Status Functional Status Response Date of Assess ment Do you have serious difficul ty walking or climbing stairs? (5 years old or older) No 05/04/2023 documented as of this encounter Progress Notes * Dewayne Pena MD - 05/14/2023 10:57 AM EST SUBJECTIVE: Guido Daley is a 72 year old male. Chief Complaint Patient presents with Hospital Follow-Up Pt here for hospital follow up, noticed a painful lump on incision site Hospital Follow-Up Recent Admission: Patient was recently admitted to [facility] for TAVR. Discharge report received and reviewed. HPI: Here for hospital follow up s/p TAVR. Developed 1st degree AV block postoperatively and thus BB was discontinued. He will be seeing cardiology in 2 days and has follow up scheduled with cardiothoracic surgery later this month. He notes that he feels a lot better post-procedurally in terms of his shortness of breath and overall activity level. He does have a lump he noticed in his right groinsite. Patient Active Problem List Diagnosis Code H/O Hodgkin's lymphoma Z85.71 Acquired hypothyroidism E03.9 Coronary artery disease involving big sandy coronary artery of big sandy heart without angina pectoris I25.10 Nonrheumatic mitral valve stenosis I34.2 Esophageal dysmotility K22.4 JULIUS (obstructive sleep apnea) G47.33 ILD (interstitial lung disease) ([facility]) J84.9 Raynaud's disease without gangrene I73.00 PSVT (paroxysmal supraventricular tachycardia) I47.10 Hx of melanoma of skin Z85.820 PHT (pulmonary hypertension) ([facility]) I27.20 Protein-calorie malnutrition ([facility]) E46 Neuromuscular disorder ([facility]) G70.9 Senile osteoporosis M81.0 BMI less than [...] No current facility-administered medications for this visit. Current and discharge medications have been reconciled. Review of patient's allergies indicates: No Known Allergies OBJECTIVE: BP 120/70 | Pulse 92 | Temp 35.7 C (96.2 F) (Tympanic) | Resp 18 | Ht 1.854 m (6' 1") | Wt 67.1kg (148 lb) | BMI 19.53 kg/m | BSA 1.86 m PHYSICAL EXAM: Constitutional: no acute distress CV: normal rate, [...] size lump at site, no bruit. : ASSESSMENT: Hospital discharge follow-up (Primary) - DISCH MED RECON CUR MED LIS S/P TAVR (transcatheter aortic valve replacement) JULIUS (obstructive sleep apnea) ILD (interstitial lung disease) (HCC) PSVT (paroxysmal supraventricular tachycardia) 1st degree AV block Coronary artery disease involving big sandy coronary artery of big sandy heart without angina pectoris PHT (pulmonary hypertension) (HCC) Neuromuscular disorder (HCC) Esophageal dysmotility Mild protein-calorie malnutrition (HCC) H/O Hodgkin's lymphoma Follow Up: Return if symptoms worsen or fail to improve. Dewayne Pena MD documented in this encounter Nursing Notes * Shavonne Alas LPN - 05/14/2023 10:52 AM EST The patient has been properly identified by confirmation of name and date of . Chief Complaint Patient presents with Hospital Follow-Up Pt here for hospital follow up, noticed a painful lump on incision site documented in this encounter Plan of Treatment Upcoming Encounters Date Type Department Care Team (Late st Contact Info) Description 06/15/2023 1:30 PM EST Laboratory Laboratory, [facility] [address] [facility] [place] [address] Senait Ross [facility] [address] [facility] [place] [address] 06/15/2023 2:00 PM EST Office Visit Cardiology, [facility] [address] [facility] [place] [address] Blessing Coronel CRNP [address] [facility] [place] [address] 06/25/2023 10:20 AM EST Office Visit Pulmonary Medicine, [facility] [address] [facility] [place] [address] Juan Pablo Marsh MD [address] [place] [address] 07/02/2023 7:15 AM EST Cardiac Studies Cardiac Studies, [facility] [address] [facility] [place] [address] 07/09/2023 2:20 PM EST Office Visit Sleep Disorders Ctr [facility] [address] [facility] [place] [phone] Cara Brantley DO [address] [place] [address] 09/14/2023 1:20 PM EDT Office Visit Family Practice [facility] [address] [facility] [place] [address] Dewayne Pena MD [address] [place] [address] 10/02/2023 1:40 PM EDT Office Visit Rheumatology [place] [address] [place] [address] Timo Guzman MD [facility] [place] [address] 04/15/2024 10:40 AM EDT Office Visit Dermatology [facility] [address] [place] [phone] Jonnathan House PA-C [address] [place] [address] Health Maintenance Due Date Last Done Comments [...] D LEVEL ONCE IN A LIFETIME-USE SMARTSET# [id number] Completed 11/03/2022, 11/20/2018 Influenza Vaccine (FLU shot) [...] this encounter Medical Devices Implanted Type Area Hogshead Hooper Device Identifier Shelf Expiration Date Model / Serial / Lot Cath Thermodilution 6fr - [id number] Implanted:Qty: 1 on 03/07/2023 by Armando Beltran MD at [facility] [employer] [place] [id number] 10/10/2024 [id number] / / [id number] Valve Aortic Transcath Fx 34mm - [id number] Implanted:Qty: 1 on 05/03/2023 by Armando Beltran MD [place] [facility] [employer] [id number] 08/10/2024 [id number] / [id number] / [id number] documented as of this encounter Visit Diagnoses Diagnosis Hospital discharge follow-up- Primary Other follow-up examination S/P TAVR (transcatheter aortic valve replacement) Heart valve replaced by other means JULIUS (obstructive sleep apnea) Obstructive sleep apnea (adult) (pediatric) ILD (interstitial lung disease) (HCC) Postinflammatory pulmonary fibrosis PSVT (paroxysmal supraventricular tachycardia) Paroxysmal supraventricular tachycardia 1st degree AV block First degree atrioventricular block Coronary artery disease involving big sandy coronary artery of big sandy heart without angina pectoris PHT (pulmonary hypertension) (HCC) Other chronic pulmonary heart diseases Neuromuscular disorder (HCC) Myoneural disorders, unspecified Esophageal dysmotility Dyskinesia of esophagus Mild protein-calorie malnutrition (HCC) Malnutrition of mild degree H/O Hodgkin's lymphoma Personal history of Hodgkin's disease documented in this encounter Advance Directives Documents on File Type Date Recorded Patient Tax Evaluator Expl anation POLST 03/06/2022 [place] OR DERS FOR LIFE-SUSTAINING TREATMENT POLST 12/13/2021 [place] OR DERS FOR LIFE-SUSTAINING TREATMENT Latest Code [...] Direct lorenzo occurred with: Patient Care Teams Library Sales Consultant Relationship Specialty Start Date End Date Dewayne Pena MD [address] [place] [address] PCP - General Family Medicine 04/30/23 documented as of this encounter
--- OUTSIDE RECORDS SUMMARY | 2023-10-08 23:13 | External Medical Summary ---
Author Name Unknown Address Unknown Organization K01:LAB[facility]ATORY [facility] - [address] [place] [address] Laboratory Report Ordering Provider Test Date Status KJ SCHMITZ 05/03/2023 09:54:10 Final Observation Date Value Abnormality Reference (Units ) Status WBC, Total 05/03/2023 09:54:10 7.72 4.00-10.8 0 (K/uL) Final RBC 05/03/2023 09:54:10 4.02 4.50-5.25 (M/uL) Final Hemoglobin 05/03/2023 09:54:10 14.0 14.0-16.8 (g/dL) Final Anemia reflex testing trigge rs on a HGB < 12.0 for Females and HGB < 13.0 for Males in accordance with the WHO Anemia Guidelines
Anemia reflex testing triggers on a HGB < 12.0 for Females and HGB < 13.0 for Males in accordance with the WHO Anemia Guidelines HCT 05/03/2023 09:54:10 43.7 40.0-48.4 (%) Final MCV 05/03/2023 09:54:10 108.7 82.0-99.5 (fL) Final MCH 05/03/2023 09:54:10 34.8 27.0-34.0 (pg) Final MCHC 05/03/2023 09:54:10 32.0 32.0-36.0 (g/dL) Final RDW 05/03/2023 09:54:10 14.2 11.5-15.5 (%) Final Platelets 05/03/2023 09:54:10 207 140-400 (K /uL) Final MPV 05/03/2023 09:54:10 12.1 6.6-11.1 ( fL) Final Nucleated erythrocytes/100 leukocytes [Ratio] in Blood by Automated count 05/03/2023 09:54:10 0 <=0 (/100 WBCs) [facility] Performing Location [facility] - [address] [facility] [place] [address]
--- OUTSIDE RECORDS SUMMARY | 2023-10-08 23:13 | External Medical Summary ---
Author Name Unknown Address Unknown Organization [id number]:[facility] [address] [facility] [address] Laboratory Report Ordering Provider Test Date Status DORON ROTH 04/30/2023 15:53:15 Final Observation Date Value Abnormality Reference (Units ) Status ABO 04/30/2023 15:53:15 B Final RH 04/30/2023 15:53:15 Positive Final Performing Location [facility] [address] [facility] [address]
--- OUTSIDE RECORDS SUMMARY | 2023-10-08 23:13 | External Medical Summary ---
Author Name Unknown Address Unknown Organization : Laboratory Report Ordering Provider Test Date Status DORON ROTH 05/03/2023 13:07:34 Final NORMAL (NON-HEPARINIZED) 74- 137 SECONDS
HEPARINIZED 200+ SECONDS
CRITICAL GREATER THAN 1000 SECONDS
null Observation Date Value Abnormality Reference (Units ) Status Kaolin activated time [Units/volume] in Blood 05/03/2023 13:07:34 341 50-1000 (secs) Final Performing Location
--- OUTSIDE RECORDS SUMMARY | 2023-10-08 23:13 | External Medical Summary ---
Author Name Unknown Address Unknown Organization [id number]:[facility]ATORY [facility] [place] [facility] [address] [facility] [address] Laboratory Report Ordering Provider Test Date Status NOMI MARES 05/03/2023 17:25:00 Final Observation Date Value Abnormality Reference (Units ) Status BUN 05/03/2023 17:25:00 15 6-20 (mg/dL) Final Creatinine 05/03/2023 17:25:00 0.6 0.6-1.2 (mg/dL) Final Glomerular filtration rate/1.73 sq M.predicted [Volume Rate/Area] in Serum, Plasma or Blood by Creatinine-based formula (CKD-EPI) 05/03/2023 17:25:00 >90 >=60 (mL/min) Final eGFR is calculated based on the CKD-EPI 2020 equation SODIUM 05/03/2023 17:25:00 141 135-146 (m mol/L) Final Potassium 05/03/2023 17:25:00 4.0 3.5-5.1 (m mol/L) Final Cl 05/03/2023 17:25:00 101 98-107 (mm ol/L) Final CO2 05/03/2023 17:25:00 30 22-32 (mmo l/L) Final Anion gap 05/03/2023 17:25:00 10 7-15 (mmol /L) Final Glucose 05/03/2023 17:25:00 87 70-120 (mg /dL) Final Calcium 05/03/2023 17:25:00 8.7 8.4-10.2 ( mg/dL) Final Performing Location LABORATORY [facility] [place] - [address] [facility] [address]
--- OUTSIDE RECORDS SUMMARY | 2023-10-08 23:13 | External Medical Summary ---
Author Name Unknown Address Unknown Organization K01:LABORATORY [facility] [place] [facility] [address] [facility] [address] Laboratory Report Ordering Provider Test Date Status DORON ROTH 04/30/2023 15:53:15 Final Observation Date Value Abnormality Reference (Units ) Status Albumin 04/30/2023 15:53:15 4.2 3.8-5.0 (g/dL) Final AST (Aspartate aminotransferase) 04/30/2023 15:53:15 25 10-50 (U/L) Final Alk Phos 04/30/2023 15:53:15 75 35-130 (U/L) Final ALT (Alanine aminotransferase) 04/30/2023 15:53:15 17 10-50 (U/L) Final Bilirubin, Total 04/30/2023 15:53:15 0.5 <=1.2 (mg/dL) Final Bilirubin, Direct 04/30/2023 15:53:15 0.2 0.0-0.3 (mg/dL) Final Protein 04/30/2023 15:53:15 7.8 6.0-8.3 (g/dL) Final Performing Location LABORATORY [facility] - [address] [place] [address]
--- OUTSIDE RECORDS SUMMARY | 2023-10-08 23:13 | External Medical Summary ---
Author Name Unknown Address Unknown Organization K01:LABORATORY [facility] [place] - [address] [facility] [address] Laboratory Report Ordering Provider Test Date Status DORON ROTH 04/30/2023 15:53:15 Final Observation Date Value Abnormality Reference (Units ) Status BUN 04/30/2023 15:53:15 27 Above high normal 6-20 (mg/dL) Final Creatinine 04/30/2023 15:53:15 0.7 0.6-1.2 (mg/dL) Final Glomerular filtration rate/1.73 sq M.predicted [Volume Rate/Area] in Serum, Plasma or Blood by Creatinine-based formula (CKD-EPI) 04/30/2023 15:53:15 >90 >=60 (mL/min) Final eGFR is calculated based on the CKD-EPI 2020 equation SODIUM 04/30/2023 15:53:15 139 135-146 (m mol/L) Final Potassium 04/30/2023 15:53:15 4.8 3.5-5.1 (m mol/L) Final Cl 04/30/2023 15:53:15 97 Below low normal 98- 107 (mmol/L) Final CO2 04/30/2023 15:53:15 36 Above high normal 22 -32 (mmol/L) Final Anion gap 04/30/2023 15:53:15 6 Below low normal 7-1 5 (mmol/L) Final Glucose 04/30/2023 15:53:15 113 70-120 (mg /dL) Final Calcium 04/30/2023 15:53:15 9.5 8.4-10.2 ( mg/dL) Final Performing Location LABORATORY [facility] [place] [facility] [address] [facility] [address]
--- OUTSIDE RECORDS SUMMARY | 2023-10-08 23:13 | External Medical Summary | Summary of Care ---
Author Name Unknown Organization [facility] Address [address] [place] [address] Phone [phone] Care Team Providers Care Freight Associate Name Role Phone Dewayne Pena MD Primary Care Provider [phone] Encounter Details Date Type Department Care Team (Late st Contact Info) Description 04/30/2023 [place] Only [facility] [place] [facility] [place] [facility] [address] [place] [address] Eileen Cordova, RN Aortic stenosis* Allergies No known active allergiesdocumented as of this encounter (statuses as of 04/30/2023) Medications Medication Sig Dispensed Refills Start Date End Date Status Acetylcysteine (NAC 600) 600 MG CAPS Take 1 Tab by mouth 2 times a day. 60 Cap 0 05/20/2019 Active Cyanocobalamin (B-12) 100 MCG TABS Take by mouth 1 Tablet daily . 0 Active Cholecalciferol 25 MCG (1000 UT) Oral Capsule Take 1 Capsule by mouth in the morning. 0 Active Multiple Vitamins-Minerals (OCUVITE ADULT FORMULA) CAPS Take by mouth 1 Capsule daily . 0 Active Respiratory Therapy Supplies Device Use as directed. AutoPAP 5-20 cm 0 Active CPAP every night at bedtime . Auto 5-20 cm 0 Active Turmeric Curcumin Oral Capsule Take by mouth 1 Capsule daily . 0 Active Metoprolol Succinate ER 25 MG Oral Tablet Extended Release 24 Hour (toPROL XL)Indications:PSVT (paroxysmal supraventricular tachycardia),Sinus tachycardia Take 0.5 Tablets by mouth in the morning and 0.5 Tablets before bedtime. 90 Tablet 3 09/04/2022 Active Aspirin 81 MG Oral Tablet Chewable Take 1 Tablet by mouth in the morning. 90 Tablet 3 03/07/2023 03/06/2024 Active Levothyroxine Sodium 75 MCG Oral Tablet (Levoxyl) (at least 30 min prior to breakfast or other meds) 90 Tablet 3 03/16/2023 Active documented as of this encounter (statuses as of 04/30/2023) Active Problems Problem Noted Date Diagnosed Date BMI less than 19,adult 03/16/2023 Senile osteoporosis 09/28/2022 Protein-calorie malnutrition 07/07/2022 Aortic root enlargement 07/07/2022 Neuromuscular disorder 07/07/2022 PHT (pulmonary hypertension) 06/02/2021 Hx of melanoma of skin 03/24/2021 Overview: Hx MM date 2013, Depth unknown, no SLN, Location [facility] Hx of nonmelanoma skin cancer 03/24/2021 Overview: Hx MM date 2013, Depth unknown, no SLN, Location [facility] (still no path in chart, pt confirmed that he had surgery for melanoma at that site and for BCC prior, see below) BCC R forehead 2009 ([facility]) PSVT (paroxysmal supraventricular tachycardia) 0 12/15/2019 Raynaud's disease without gangrene 06/02/2019 Esophageal dysmotility 05/20/2019 JULIUS (obstructive sleep apnea) 05/20/2019 ILD (interstitial lung disease) 05/20/2019 Coronary artery disease invo lving hopi coronary artery of hopi heart without angina pectoris 03/24/2019 Nonrheumatic mitral valve stenosis 03/24/2019 Moderate aortic stenosis 03/24/2019 H/O Hodgkin's lymphoma 07/05/2018 Acquired hypothyroidism 07/05/2018 documented as of this encounter (statuses as of 04/30/2023) Resolved Problems Problem Noted Date Diagnosed Date Resolved Date Osteoporotic fracture of left hip 09/28/2022 03/14/2023 Sinus tachycardia 03/16/2022 03/14/2023 Prediabetes 02/28/2021 02/01/2023 Overview: Per Prediabetes protocol Moderate protein malnutrition 12/15/2019 03/14/2023 Ankylosing spondylitis of cervical region 12/15/2019 07/07/2022 H/O atrial fibrillation with out current medication 07/05/2018 03/14/2023 documented as of this encounter (statuses as of 04/30/2023) Immunizations Name Administration Dates Next Due COVID-19 mRNA, LNP-s, No Pre serve, 2-Dose Series (Moderna) 08/21/2020,07/17/2020 COVID-19, MRNA-LNP, 23-24, P F, 30 MCG/0.3 mL, 12 YRS AND ABOVE, IM (Smarp.-Comirnaty) 03/27/2023 COVID-19, mRNA, LNP-s, PF, B ooster, [...] Department Care Team (Latest Contact Info) Description 04/30/2023 3:30 PM EST Office Visit Cardiology [facility] [address] [place] [address] Armando Beltran MD [facility] [place] [address] 05/03/2023 11:00 AM EST Hospital Encounter [facility] [place] [facility] [place] [facility] [facility] Suite Waiting Unit, [address] [place] [address] Armando Beltran MD [facility] [place] [address] 05/03/2023 11:00 AM EST - 05/03/2023 12:10 PM EST Surgery [facility] [place] [facility] [place] [facility] [facility] [place]ing Unit, [address] [place] [address] Armando Beltran MD [facility] [place] [address] REPLACE AORTIC VALVE, PERCUTANEOUS FEMORAL 05/03/2023 11:00 AM EST Office Visit Cardiology [place] [address] [place] [address] [place], Cardiac Recovery [place] [address] [place] [address] 06/25/2023 10:20 AM EST Office Visit Pulmonary Medicine, [facility] [address] [place] [address] Juan Pablo Marsh MD [address] [place] [facility] [place] [address] 08/15/2023 8:30 AM EST Office Visit Cardiology, [facility] [address] [place] [address] Armando Beltran MD [address] [place] [address] 09/14/2023 1:20 PM EDT Office Visit Family Practice [facility] [address] [place] [address] Dewayne Pena MD [address] [place] [address] 10/02/2023 1:40 PM EDT Office Visit Rheumatology [address] [place] [address] Timo Guzman MD [address] [place] [address] 04/15/2024 10:40 AM EDT Office Visit Dermatology [facility] [address] [place] [address] Jonnathan House PA-C [address] [place] [address] Scheduled Orders Name Type Priority Associated Diagnoses Orde r Schedule ABO/RH Lab Routine Aortic stenosis Expected: 04/30/2023, Expires: 05/30/2023 PT INR Lab Routine Aortic stenosis Expected: 04/30/2023, Expires: 05/30/2023 HEPATIC FUNCTION PANEL Lab Routine Aortic stenosis Expected: 04/30/2023, Expires: 05/30/2023 CBC Lab Routine Aortic stenosis Expected: 04/30/2023, Expires: 05/30/2023 BASIC METABOLIC PANEL Lab Routine Aortic stenosis Expected: 04/30/2023, Expires: 05/30/2023 TYPE AND SCREEN Lab Routine Aortic stenosis Expected: 04/30/2023, Expires: 05/30/2024 Scheduled Procedures Name Priority Associated Diagnoses Date/Ti me REPLACE AORTIC VALVE, PERCUTANEOUS FEMORAL Aortic stenosis 05/03/2023 11:00 AM EST REPLACE AORTIC VALVE, PERCUTANEOUS FEMORAL Aortic stenosis 05/03/2023 11:00 AM EST Health Maintenance Due Date Last Done [...] D LEVEL ONCE IN A LIFETIME-USE SMARTSET# [id number] Completed 11/03/2022, 11/20/2018 Influenza Vaccine (FLU shot) [...] this encounter Medical Devices Implanted Type Area Inside Sales Coordinator Device Identifier Shelf Expiration Date Model / Serial / Lot Cath Thermodilution 6fr - [id number] Implanted:Qty: 1 on 03/07/2023 by Armando Beltran MD [place] [facility] [place] [facility] [place] [employer] [place] [id number] 10/10/2024 [id number] / / [id number] documented as of this encounter Visit Diagnoses Diagnosis Aortic stenosis- Primary Aortic valve disorders Aortic stenosis Aortic valve disorders documented in this encounter Advance Directives Documents on File Type Date Recorded 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 03/06/2022 [place] OR DERS FOR LIFE-SUSTAINING TREATMENT POLST 12/13/2021 [place] OR DERS FOR LIFE-SUSTAINING TREATMENT Latest Code Status on File Code Status Date Activated Date Inactivated Comments Full Code 04/11/2022 8:42 AM 04/11/2022 2:07 PM Question Answer Comments Discussion of Advance Direct lorenzo occurred with: Patient Code Status History Code Status Date Activated Date Inactivated Comments Full Code 04/11/2022 6:32 AM 04/11/2022 8:41 AM Question Answer Comments Discussion of Advance Direct lorenzo occurred with: Patient Care Teams Freight Associate Relationship Specialty Start Date End Date Dewayne Pena MD [address] [place] [address] PCP - General Family Medicine 04/30/23 documented as of this encounter
--- OUTSIDE RECORDS SUMMARY | 2023-10-08 23:13 | External Medical Summary ---
Author Name Unknown Address Unknown Organization K01:LABORATORY [facility] [place] - [address] [facility] [place] [address] Laboratory Report Ordering Provider Test Date Status PHONG SCHMITZSILVIA 05/03/2023 09:54:10 Final Observation Date Value Abnormality Reference (Units ) Status BUN 05/03/2023 09:54:10 17 6-20 (mg/dL) Final Creatinine 05/03/2023 09:54:10 0.6 0.6-1.2 (mg/dL) Final Glomerular filtration rate/1.73 sq M.predicted [Volume Rate/Area] in Serum, Plasma or Blood by Creatinine-based formula (CKD-EPI) 05/03/2023 09:54:10 >90 >=60 (mL/min) Final eGFR is calculated based on the CKD-EPI 2020 equation SODIUM 05/03/2023 09:54:10 140 135-146 (m mol/L) Final Potassium 05/03/2023 09:54:10 4.4 3.5-5.1 (m mol/L) Final Cl 05/03/2023 09:54:10 97 Below low normal 98- 107 (mmol/L) Final CO2 05/03/2023 09:54:10 35 Above high normal 22 -32 (mmol/L) Final Anion gap 05/03/2023 09:54:10 8 7-15 (mmol /L) Final Glucose 05/03/2023 09:54:10 91 70-120 (mg /dL) Final Calcium 05/03/2023 09:54:10 9.5 8.4-10.2 ( mg/dL) Final Performing Location LABORATORY [facility] [place] - [address] [facility] [address]
--- OUTSIDE RECORDS SUMMARY | 2023-10-08 23:13 | External Medical Summary | Summary of Care ---
Author Name Unknown Organization [facility] Address [address] [place] [address] Phone [phone] Care Team Providers Care Wood Type Cutter Name Role Phone Dewayne Pena MD Primary Care Provider [phone] Reason for Visit * Reason Comments Follow Up Encounter Details Date Type Department Care Team (Late st Contact Info) Description 04/30/2023 3:30 PM EST Office Visit Cardiology [facility] [address] [place] [address] Armando Beltran MD [address] [place] [address] PHT (pulmonary hypertension) (HCC)*; Aortic valve stenosis, etiology of cardiac valve disease unspecified; SOB (shortness of breath) on exertion Allergies No known active allergiesdocumented as of this encounter (statuses as of 05/01/2023) Medications Medication Sig Dispensed Refills Start Date [...] other meds) 90 Tablet 3 03/16/2023 Active Multiple Vitamins-Minerals (OCUVITE ADULT FORMULA) CAPS Take by mouth 1 Capsule daily . 0 3 Discontinue d(Patient preference/ discontinua tion) documented as of this encounter (statuses as of 05/01/2023) Active Problems Problem Noted Date Diagnosed Date BMI less than 19,adult 03/16/2023 Senile osteoporosis 09/28/2022 Protein-calorie malnutrition 07/07/2022 Aortic root enlargement 07/07/2022 Neuromuscular disorder 07/07/2022 PHT (pulmonary hypertension) 06/02/2021 Hx of melanoma of skin 03/24/2021 Overview: Hx MM date 2013, Depth unknown, no SLN, Location [facility] Hx of nonmelanoma skin cancer 03/24/2021 Overview: Hx MM date 2013, Depth unknown, no SLN, Location [facility] (still no path in chart, pt confirmed that he had surgery for melanoma at that site and for BCC prior, see below) [place]CC [place] PSVT (paroxysmal supraventricular tachycardia) 0 12/15/2019 Raynaud's disease without gangrene 06/02/2019 Esophageal dysmotility 05/20/2019 JULIUS (obstructive sleep apnea) 05/20/2019 ILD (interstitial lung disease) 05/20/2019 Coronary artery disease invo lving samish coronary artery of samish heart without angina pectoris 03/24/2019 Nonrheumatic mitral valve stenosis 03/24/2019 Moderate aortic stenosis 03/24/2019 H/O Hodgkin's lymphoma 07/05/2018 Acquired hypothyroidism 07/05/2018 documented as of this encounter (statuses as of 05/01/2023) Resolved Problems Problem Noted Date Diagnosed Date Resolved Date Osteoporotic fracture of left hip 09/28/2022 03/14/2023 Sinus tachycardia 03/16/2022 03/14/2023 Prediabetes 02/28/2021 02/01/2023 Overview: Per Prediabetes protocol Moderate protein malnutrition 12/15/2019 03/14/2023 Ankylosing spondylitis of cervical region 12/15/2019 07/07/2022 H/O atrial fibrillation with out current medication 07/05/2018 03/14/2023 documented as of this encounter (statuses as of 05/01/2023) Immunizations Name Administration Dates Next Due COVID-19 [...] Reading Time Taken Comments Blood Pressure 102/60 04/30/2023 3:24 PM EST Pulse 86 04/30/2023 3:24 PM EST Temperature - - Respiratory Rate - - Oxygen Saturation 93% 04/30/2023 3:24 PM EST Inhaled Oxygen Concentration - - Weight 65.1 kg (143 lb 9.6 oz) 04/30/2023 3:24 P M EST Height - - Body Mass Index 18.69 04/11/2023 12:22 PM EDT documented in this encounter Progress Notes * Armando Beltran MD - 05/01/2023 9:43 AM EST Cardiology Outpatient Follow-up Guido Daley is a [...] (HCC) Cardiac arrhythmia Coronary artery disease involving samish coronary artery of samish heart without angina pectoris 03/24/2019 Hodgkin's disease (HCC) 1976 s/p radiation Hx of melanoma of skin 03/24/2021 Hx MM date 2013, Depth unknown, no SLN, Location [facility] ILD (interstitial lung disease) (HCC) Moderate aortic stenosis 03/24/2019 Nonrheumatic mitral valve stenosis 03/24/2019 JULIUS (obstructive sleep apnea) Pulmonary arterial hypertension (HCC) Raynaud's disease without gangrene 06/02/2019 Sleep apnea, obstructive Patient Active Problem List Diagnosis Code H/O Hodgkin's lymphoma Z85.71 Acquired hypothyroidism E03.9 Coronary artery disease involving samish coronary artery of samish heart without angina pectoris I25.10 Nonrheumatic mitral [...] by Armando Beltran MD at CARDIAC LABS [facility] EGD, FLEXIBLE, DIAGNOSTIC 05/21/2019 reflux / [facility] MUSCLE BIOPSY, DEEP Left 04/11/2022 BIOPSY MUSCLE DEEP performed by Sadiq Kennedy MD at OR [facility] REMOVAL OF SPLEEN, TOTAL 1977 Due to [...] elevated risk and consent to the procedure. Armando Beltran MD MPH Interventional Cardiology Pager: [phone] 05/01/23 9:49 AM documented in this encounter Plan of Treatment Upcoming Encounters Date Type Department Care Team (Latest Contact Info) Description 05/03/2023 11:00 AM EST Hospital Encounter CRS Waiting [facility], Cardiac Recovery Suite Waiting Unit, H [address] [place] [address] Armando Beltran MD [address] [place] [address] 05/03/2023 11:00 AM EST - 05/03/2023 12:10 PM EST Surgery CRS Waiting [facility], Cardiac Recovery Suite Waiting Unit, H [address] [place] [address] Armando Beltran MD [address] [place] [address] REPLACE AORTIC VALVE, PERCUTANEOUS FEMORAL 05/03/2023 11:00 AM EST Office Visit Cardiology [facility] [place] [address] [facility] [address] [place], Cardiac Recovery [facility] [address] [facility] [address] [place] [address] 06/25/2023 10:20 AM EST Office Visit Pulmonary Medicine, [facility] [address] [place] [address] Juan Pablo Marsh MD [address] [facility] [place] [address] 08/15/2023 8:30 AM EST Office Visit Cardiology, [facility] [address] [place] [address] Armando Beltran MD [address] [place] [address] 09/14/2023 1:20 PM EDT Office Visit Family Practice [facility] [address] [place] [address] Dewayne Pena MD [address] [place] [address] 10/02/2023 1:40 PM EDT Office Visit Rheumatology [address] [place] [address] Timo Guzman MD [address] [place] [phone] 04/15/2024 10:40 AM EDT Office Visit Dermatology [address] [address] Jonnathan House PA-C [address] [place] [address] Scheduled Procedures Name Priority Associated Diagnoses Date/Ti [...] D LEVEL ONCE IN A LIFETIME-USE SMARTSET# [id number] Completed 11/03/2022, 11/20/2018 Influenza Vaccine (FLU shot) [...] this encounter Medical Devices Implanted Type Area Sustainable Products Marketing Manager Device Identifier Shelf Expiration Date Model / Serial / Lot Cath Thermodilution 6fr - [id number] Implanted:Qty: 1 on 03/07/2023 by Armando Beltran MD at [facility] [employer] [id number] 10/10/2024 [id number] / / [id number] documented as of this encounter Procedures Procedure Name Priority Date/Time Associated Diagnosis Comments HEPATIC FUNCTION PANEL Routine 04/30/2023 3:53 PM EST BASIC METABOLIC PANEL Routine 04/30/2023 3:53 PM EST ABO/RH Routine 04/30/2023 3:53 PM EST TYPE AND SCREEN Routine 04/30/2023 3:53 PM EST PT INR Routine 04/30/2023 3:53 PM EST CBC Routine 04/30/2023 3:53 PM EST documented in this encounter Results * TYPE AND SCREEN (04/30/2023 3:53 PM EST) ABO B 04/30/2023 5:53 PM EST LABORATORY [facility] BLOOD BANK Rh Positive 04/30/2023 5:53 PM EST LABORATORY [facility] BLOOD BANK Red Blood Cell Antibody Screen Negative 04/30/2023 5:53 PM EST LABORATORY [facility] BLOOD BANK Specimen Expiration Date 05/06/2023 23:59 04/30/2023 5:53 PM EST LABORATORY [facility] BLOOD BANK Blood Venous blood specimen / Unknown Venipuncture / Unknown 04/30/2023 3:53 PM EST 04/30/2023 4:05 PM EST Armando Beltran MD LAB BLOOD BANK TEST ORDERABLES LABORATORY [facility] BLOOD BANK [address] [place] [address] * (ABNORMAL) BASIC METABOLIC PANEL (04/30/2023 3:53 PM EST) BUN 27(H) 6 - 20 mg/dL 04/30/2023 4:31 PM EST LABORATORY [facility] Creatinine 0.7 0.6 - 1.2 mg/dL 04/30/2023 4:31 PM EST LABORATORY [facility] Estimated Glomerular Filtration Rate >90 >=60 mL/min 04/30/2023 4:31 PM EST LABORATORY [facility] Comment:eGFR is calculated b ased on the CKD-EPI 2020 equation Sodium 139 135 - 146 mmol/L 04/30/2023 4:31 PM EST LAB[facility]ATORY [facility] Potassium 4.8 3.5 - 5.1 mmol/L 04/30/2023 4:31 PM EST [facility] Chloride 97(L) 98 - 107 mmol/L 04/30/2023 4:31 PM EST [facility] CO2 36(H) 22 - 32 mmol/L 04/30/2023 4:31 PM EST [facility] Anion Gap 6(L) 7 - 15 mmol/L 04/30/2023 4:31 PM EST [facility] Glucose 113 70 - 120 mg/dL 04/30/2023 4:31 PM EST [facility] Calcium 9.5 8.4 - 10.2 mg/dL 04/30/2023 4:31 PM EST [facility] Blood Venous blood specimen / Unknown Venipuncture / Unknown 04/30/2023 3:53 PM EST 04/30/2023 4:05 PM EST Armando Beltran MD LAB BLOOD ORDERABLES Performing Organization Address City/State/[facility] Co de Phone Number LABORATORY [facility] [address] [place] [address] * (ABNORMAL) CBC (04/30/2023 3:53 PM EST) WBC 6.94 4.00 - 10.80 K/uL 04/30/2023 4:17 PM EST [facility] RBC 3.70 4.50 - 5.25 M/uL 04/30/2023 4:17 PM EST LAB[facility]ORY [facility] HGB 12.9(L) 14.0 - 16.8 g/dL 04/30/2023 4:17 PM EST [facility] HCT 40.6 40.0 - 48.4 % 04/30/2023 4:17 PM EST [facility] MCV 109.7 82.0 - 99.5 fL 04/30/2023 4:17 PM EST [facility] MCH 34.9 27.0 - 34.0 pg 04/30/2023 4:17 PM EST [facility] MCHC 31.8 32.0 - 36.0 g/dL 04/30/2023 4:17 PM EST [facility] RDW 14.4 11.5 - 15.5 % 04/30/2023 4:17 PM EST [facility] PLT 192 140 - 400 K/uL 04/30/2023 4:17 PM EST [facility] MPV 11.8 6.6 - 11.1 fL 04/30/2023 4:17 PM EST [facility] nRBCs 0 <=0 /100 WBCs 04/30/2023 4:17 PM EST [facility] Blood Venous blood specimen / Unknown Venipuncture / Unknown 04/30/2023 3:53 PM EST 04/30/2023 4:05 PM EST Armando Beltran MD LAB BLOOD ORDERABLES Performing Organization Address City/[facility]/ZIP Co de Phone Number LABORATORY [facility] [address] [place] [address] * HEPATIC FUNCTION PANEL (04/30/2023 3:53 PM EST) [facility] Albumin 4.2 3.8 - 5.0 g/dL 04/30/2023 4:31 PM EST LAB[facility]ORY [facility] AST 25 10 - 50 U/L 04/30/2023 4:31 PM EST [facility] Alkaline Phosphatase 75 35 - 130 U/L 04/30/2023 4:31 PM EST [facility] ALT 17 10 - 50 U/L 04/30/2023 4:31 PM EST [facility] Bilirubin, Total 0.5 <=1.2 mg/dL 04/30/2023 4:31 PM EST [facility] Bilirubin, Direct 0.2 0.0 - 0.3 mg/dL 04/30/2023 4:31 PM EST [facility] Protein 7.8 6.0 - 8.3 g/dL 04/30/2023 4:31 PM EST LAB[facility]ORY [facility] Blood Venous blood specimen / Unknown Venipuncture / Unknown 04/30/2023 3:53 PM EST 04/30/2023 4:05 PM EST Armando Beltran MD LAB BLOOD ORDERABLES Performing Organization Address City/[facility]/ZIP Co de Phone Number LABORATORY [facility] [address] [place] [address] * PT INR (04/30/2023 3:53 PM EST) Prothrombin Time 14.0 11.6 - 15.2 seconds 04/30/2023 4:25 PM EST LABORATORY [facility] INR 1.1 0.8 - 1.2 04/30/2023 4:25 PM EST LABORATORY [facility] Blood Venous blood specimen / Unknown Venipuncture / Unknown 04/30/2023 3:53 PM EST 04/30/2023 4:05 PM EST Narrative LABORATORY C - 04/30/2023 4:25 PM EST Warfarin Therapy INR: 2.0-3.0 conventional anticoagulation INR: 2.5-3.5 high intensity anticoagulation Armando Beltran MD LAB BLOOD ORDERABLES Performing Organization Address City/[facility]/ZIP Co de Phone Number LABORATORY [facility] [address] [place] [address] * ABO/RH (04/30/2023 3:53 PM EST) ABO B 04/30/2023 6:55 PM EST LABORATORY [facility] BLOOD BANK Rh Positive 04/30/2023 6:55 PM EST LABORATORY [facility] BLOOD BANK Blood Venous blood specimen / Unknown Venipuncture / Unknown 04/30/2023 3:53 PM EST 04/30/2023 6:08 PM EST Armando Beltran MD LAB BLOOD BANK TEST ORDERABLES Performing Organization Address City/[facility] Co de Phone Number LABORATORY [facility] BLOOD BANK [address] [place] [address] documented in this encounter Visit Diagnoses Diagnosis PHT (pulmonary hypertension) (HCC)- Primary Other chronic pulmonary heart diseases Aortic valve stenosis, etiology of cardiac valve disease unspecified SOB (shortness of breath) on exertion Shortness of breath Aortic stenosis Aortic valve disorders documented in this encounter Advance Directives Documents on File Type Date Recorded 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
--- OUTSIDE RECORDS SUMMARY | 2023-10-08 23:13 | External Medical Summary ---
Author Name Unknown Address Unknown Organization K01:LABORATORY [facility] [place] - [address] [place] [address] Laboratory Report Ordering Provider Test Date Status DORON ROTH 04/30/2023 15:53:15 Final Warfarin Therapy
INR: 2 .0-3.0 conventional anticoagulation
INR: 2.5- 3.5 high intensity anticoagulation Observation Date Value Abnormality Reference (Units ) Status PT 04/30/2023 15:53:15 14.0 11.6-15.2 (seconds) Final INR 04/30/2023 15:53:15 1.1 0.8-1.2 Final Performing Location LABORATORY [facility] - [address] [place] [address]
--- OUTSIDE RECORDS SUMMARY | 2023-10-08 23:13 | External Medical Summary ---
Author Name Unknown Address Unknown Organization K01:[facility] [place] [address] [facility] [address] Laboratory Report Ordering Provider Test Date Status KJ SCHMITZ 05/03/2023 09:54:10 Final Observation Date Value Abnormality Reference (Units ) Status SYNC LEUKOCYTES IN BLOOD BY AUTOMATED COUNT 05/03/2023 09:54:10 7.72 4.00-10.80 (K/uL) Final Segs 05/03/2023 09:54:10 67.1 40.0-75.0 (%) Final Lymphs % 05/03/2023 09:54:10 18.7 18.0-42.0 (%) Final Monos 05/03/2023 09:54:10 11.9 Above high normal 1.0-11.0 (%) Final Eosinophils 05/03/2023 09:54:10 1.2 0.0-6.0 (%) Final Basos 05/03/2023 09:54:10 0.8 0.0-2.0 (%) Final Immature Granulocyte, Percent 05/03/2023 09:54:10 0.3 0.0-2.0 (%) Final Absolute Segs 05/03/2023 09:54:10 5.19 1.80-7.70 (K/uL) Final Lymphs, absolute 05/03/2023 09:54:10 1.44 1.00-4.80 (K/ul) Final Monos, Abs 05/03/2023 09:54:10 0.92 0.00-1.10 (K/uL) Final Eos, Abs 05/03/2023 09:54:10 0.09 0.00-0.70 (K/uL) Final Basos, Abs 05/03/2023 09:54:10 0.06 0.00-0.20 (K/uL) Final Immature Granulocytes, Number 05/03/2023 09:54:10 0.02 0.00-0.20 (K/uL) Final Performing Location [facility] [place] [address] [facility] [address]
--- OUTSIDE RECORDS SUMMARY | 2023-10-08 23:13 | External Medical Summary ---
Author Name Unknown Address Unknown Organization K01:LABORATORY [facility] - [facility] [address] [facility] [address] [facility] [address] Laboratory Report Ordering Provider Test Date Status DORON ROTH 04/30/2023 15:53:15 Final Observation Date Value Abnormality Reference (Units ) Status WBC, Total 04/30/2023 15:53:15 6.94 4.00-10.80 (K/uL) Final RBC 04/30/2023 15:53:15 3.70 4.50-5.25 (M/uL) Final Hemoglobin 04/30/2023 15:53:15 12.9 Below low normal 14.0-16.8 (g/dL) Final HCT 04/30/2023 15:53:15 40.6 40.0-48.4 (%) Final MCV 04/30/2023 15:53:15 109.7 82.0-99.5 (fL) Final MCH 04/30/2023 15:53:15 34.9 27.0-34.0 (pg) Final MCHC 04/30/2023 15:53:15 31.8 32.0-36.0 (g/dL) Final RDW 04/30/2023 15:53:15 14.4 11.5-15.5 (%) Final Platelets 04/30/2023 15:53:15 192 140-400 (K/uL) Final MPV 04/30/2023 15:53:15 11.8 6.6-11.1 (fL) Final Nucleated erythrocytes/100 leukocytes [Ratio] in Blood by Automated count 04/30/2023 15:53:15 0 <=0 (/100 WBCs) Final Performing Location LABORATORY [facility] - [address] [place] [address]
--- OUTSIDE RECORDS SUMMARY | 2023-10-08 23:13 | External Medical Summary ---
Author Name Unknown Address Unknown Organization K01:LABORATORY [facility] [place] [address] [place] [address] Laboratory Report Ordering Provider Test Date Status DORON ROTH 05/03/2023 09:54:10 Final Exclude Heart Failure: <300 pg/mL
Diagnose Heart Failure:
Age <50 yr: >450 pg/mL
50-75 yr: >900 pg/mL
>75 yr: >1800 pg/mL
GFR is 30-59 mL/min: >1200 pg/mL or Age- adjusted values
GFR <30 mL/min: do not use, not reliable

Prognostic threshold: 1000 pg/mL Observation Date Value Abnormality Reference (Units ) Status BNP, Pro-hormone 05/03/2023 09:54:10 1501 Above high no rmal <300 (pg/mL) Final Performing Location LABORATORY [facility] [place] [address] [place] [address]
--- OUTSIDE RECORDS SUMMARY | 2023-10-08 23:13 | External Medical Summary ---
Author Name Unknown Address Unknown Organization K01:LABORATORY [facility] [facility] B LOOD BANK - [address] [place] [address] Laboratory Report Ordering Provider Test Date Status DORON ROTH 04/30/2023 15:53:15 Final Observation Date Value Abnormality Reference (Units ) Status ABO 04/30/2023 15:53:15 B Final RH 04/30/2023 15:53:15 Positive Final RED BLOOD CELL ANTIBODY SCREEN 04/30/2023 15:53:15 Negative Final SPECIMEN EXPIRATION DATE 04/30/2023 15:53:15 05/06/2023 23:59 Final Performing Location LABORATORY [facility] BLOOD BANK - [address] [place] [address]
--- OUTSIDE RECORDS SUMMARY | 2023-10-08 23:13 | External Medical Summary | Summary of Care ---
Author Name Unknown Organization [facility] Address [address] [place] [address] Phone [phone] Care Team Providers Care Topography Technician Name Role Phone SachiJason Primary Care Provider [phone] Reason for Visit * Reason Onset Date Comments Films 04/25/2023 Encounter Details Date Type Department Care Team (Late st Contact Info) Description 04/25/2023 Telephone Radiology Film [facility] [address] [place] [address] Armando Beltran MD [address] [place] [address] Films Allergies No known active allergiesdocumented as of this encounter (statuses as of 04/25/2023) Medications Medication Sig Dispensed Refills Start Date [...] as of this encounter (statuses as of 04/25/2023) Active Problems Problem Noted Date Diagnosed Date BMI less than 19,adult 03/16/2023 Senile osteoporosis 09/28/2022 Protein-calorie malnutrition 07/07/2022 Aortic root enlargement 07/07/2022 Neuromuscular disorder 07/07/2022 PHT (pulmonary hypertension) 06/02/2021 Hx of melanoma of skin 03/24/2021 Overview: Hx MM date 2013, Depth unknown, no SLN, Location R roman catholic Hx of nonmelanoma skin cancer 03/24/2021 Overview: Hx MM date 2013, Depth unknown, no SLN, Location R roman catholic (still no path in chart, pt confirmed that he had surgery for melanoma at that site and for BCC prior, see below) BCC R forehead 2008 ([facility]) PSVT (paroxysmal supraventricular tachycardia) 0 12/15/2019 Raynaud's disease without gangrene 06/02/2019 Esophageal dysmotility 05/20/2019 JULIUS (obstructive sleep apnea) 05/20/2019 ILD (interstitial lung disease) 05/20/2019 Coronary artery disease invo lving [place] coronary artery of [place] heart without angina pectoris 03/24/2019 Nonrheumatic mitral valve stenosis 03/24/2019 Moderate aortic stenosis 03/24/2019 H/O Hodgkin's lymphoma 07/05/2018 Acquired hypothyroidism 07/05/2018 documented as of this encounter (statuses as of 04/25/2023) Resolved Problems Problem Noted Date Diagnosed Date Resolved Date Osteoporotic fracture of left hip 09/28/2022 03/14/2023 Sinus tachycardia 03/16/2022 03/14/2023 Prediabetes 02/28/2021 02/01/2023 Overview: Per Prediabetes protocol Moderate protein malnutrition 12/15/2019 03/14/2023 Ankylosing spondylitis of cervical region 12/15/2019 07/07/2022 H/O atrial fibrillation with out current medication 07/05/2018 03/14/2023 documented as of this encounter (statuses as of 04/25/2023) Immunizations Name Administration Dates Next Due COVID-19 mRNA, LNP-s, No Pre serve, 2-Dose Series (Moderna) 08/21/2020,07/17/2020 COVID-19, MRNA-LNP, 23-24, P F, 30 MCG/0.3 mL, 12 YRS AND ABOVE, IM ([employer]) 03/27/2023 COVID-19, mRNA, LNP-s, PF, B ooster, 100mcg/0.5mg (Moderna) 10/13/2021,04/13/2021 Covid-19, Mrna, Lnp-s, Pf, B ivalent, 30 Mcg, IM, 12 yrs and above ([employer]) 11/09/2022,03/10/2022 PPD 12/29/2020,12/24/2018,12/03/2018 Pneumococcal Conjugate Vacc, 13 [...] encounter Miscellaneous Notes * Telephone Encounter - Kristi Colin OSA - 04/25/2023 4:30 PM EST Received request from Eileen Cordova for 04/11/23 CT images be put on disc for patients upcoming appointment. [employer] Authorization on file to release. CD created and handed to Eileen. documented in this encounter Plan of Treatment Upcoming Encounters Date Type Department Care Team (Late st Contact Info) Description 04/30/2023 10:00 AM EST Laboratory Laboratory [facility] [place], [address] [phone] [facility] [address] [address] 04/30/2023 3:30 PM EST Office Visit Cardiology [facility] [address], [place] [id number] Armando Beltran MD [address] [place] [address] 06/25/2023 10:20 AM EST Office Visit Pulmonary Medicine, [facility] [address] [place] [address] Juan Pablo Marsh MD [address] [place] [address] 08/15/2023 8:30 AM EST Office Visit Cardiology, [facility] [address] [place] [address] Armando Beltran MD [address] [place] [address] 09/14/2023 1:20 PM EDT Office Visit Family Practice [facility] [address] [place] [address] Dewayne Pena MD [address] [place] [address] 10/02/2023 1:40 PM EDT Office Visit Rheumatology [address] [address] Timo Guzman MD [facility] [place] [address] 04/15/2024 10:40 AM EDT Office Visit Dermatology [facility] [address] [place] [address] Jonnathan House PA-C [address] [place] [address] Health Maintenance Due Date Last Done [...] D LEVEL ONCE IN A LIFETIME-USE SMARTSET# 36072 Completed 11/03/2022, 11/20/2018 Influenza Vaccine (FLU shot) [...] this encounter Medical Devices Implanted Type Area Ball Assembler Device Identifier Shelf Expiration Date Model / Serial / Lot Cath Thermodilution 6fr - [id number] Implanted:Qty: 1 on 03/07/2023 [place] [facility] [employer] KRISTYN [id number] 10/10/2024 [id number] / / [id number] documented as of this encounter Advance Directives Documents on File Type Date Recorded 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
--- OUTSIDE RECORDS SUMMARY | 2023-10-08 23:13 | External Medical Summary ---
Author Name Unknown Address Unknown Organization : Laboratory Report Ordering Provider Test Date Status DORON ROTH 05/03/2023 13:43:07 Final NORMAL (NON-HEPARINIZED) 74- 137 SECONDS
HEPARINIZED 200+ SECONDS
CRITICAL GREATER THAN 1000 SECONDS
null Observation Date Value Abnormality Reference (Units ) Status Kaolin activated time [Units/volume] in Blood 05/03/2023 13:43:07 131 50-1000 (secs) Final Performing Location
--- OUTSIDE RECORDS SUMMARY | 2023-10-08 23:14 | External Medical Summary | Summary of Care ---
Author Name Unknown Organization [facility] Address [address] [place] [address] Phone [phone] Care Team Providers Care Manager Rental Name Role Phone SachiJason rea Primary Care Provider [phone] Reason for Visit * Reason Comments Skin Check Patient is here for 1 year MM FBSE. Patient has a spot on his left foot that he would like looked at. Patient stated that the area is raised, scaly and itchy at times. Patient said it's been there for several months and getting worse. Encounter Details Date Type Department Care Team (Late st Contact Info) Description 04/12/2023 10:00 AM EDT Office Visit Dermatology [facility] [address] [facility] [place] [address] Rebeka Menon MD [address] [facility] [place] [address] Scar conditions and fibrosis of skin*; History of malignant melanoma of skin; Tinea pedis of left foot Allergies No known active allergiesdocumented as of this encounter (statuses as of 04/12/2023) Medications Medication Sig Dispensed Refills Start Date [...] as of this encounter (statuses as of 04/12/2023) Active Problems Problem Noted Date Diagnosed Date BMI less than 19,adult 03/16/2023 Senile osteoporosis 09/28/2022 Protein-calorie malnutrition 07/07/2022 Aortic root enlargement 07/07/2022 Neuromuscular disorder 07/07/2022 PHT (pulmonary hypertension) 06/02/2021 Hx of melanoma of skin 03/24/2021 Overview: Hx MM date 2013, Depth unknown, no SLN, Location R sabianism Hx of nonmelanoma skin cancer 03/24/2021 Overview: Hx MM date 2013, Depth unknown, no SLN, Location R sabianism (still no path in chart, pt confirmed that he had surgery for melanoma at that site and for BCC prior, see below) BCC R forehead 2008 ([facility]) PSVT (paroxysmal supraventricular tachycardia) 0 12/15/2019 Raynaud's disease without gangrene 06/02/2019 Esophageal dysmotility 05/20/2019 JULIUS (obstructive sleep apnea) 05/20/2019 ILD (interstitial lung disease) 05/20/2019 Coronary artery disease invo lving [place] coronary artery of [place] heart without angina pectoris 03/24/2019 Nonrheumatic mitral valve stenosis 03/24/2019 Moderate aortic stenosis 03/24/2019 H/O Hodgkin's lymphoma 07/05/2018 Acquired hypothyroidism 07/05/2018 documented as of this encounter (statuses as of 04/12/2023) Resolved Problems Problem Noted Date Diagnosed Date Resolved Date Osteoporotic fracture of left hip 09/28/2022 03/14/2023 Sinus tachycardia 03/16/2022 03/14/2023 Prediabetes 02/28/2021 02/01/2023 Overview: Per Prediabetes protocol Moderate protein malnutrition 12/15/2019 03/14/2023 Ankylosing spondylitis of cervical region 12/15/2019 07/07/2022 H/O atrial fibrillation with out current medication 07/05/2018 03/14/2023 documented as of this encounter (statuses as of 04/12/2023) Immunizations Name Administration Dates Next Due COVID-19 mRNA, LNP-s, No Pre serve, 2-Dose Series (Moderna) 08/21/2020,07/17/2020 COVID-19, MRNA-LNP, 23-24, P F, 30 MCG/0.3 mL, 12 YRS AND ABOVE, IM (Preo-Comirnat) 03/27/2023 COVID-19, mRNA, LNP-s, PF, B ooster, 100mcg/0.5mg (Moderna) 10/13/2021,04/13/2021 Covid-19, Mrna, Lnp-s, Pf, B ivalent, 30 Mcg, IM, 12 yrs and above ([employer]) 11/09/2022,03/10/2022 PPD 12/29/2020,12/24/2018,12/03/2018 Pneumococcal Conjugate Vacc, 13 [...] on file documented as of this encounter Patient Instructions * Patient Instructions* Negrito Lake MD - 04/12/2023 9:50 AM EDT SUNSCREEN USE AND SUN PROTECTION: 1. The best protection is sun avoidance. Seek shade if you can, especially between 9am to 5pm (peaksun hours). 2. Use sunscreen with a Sun Protection Factor (SPF) of 30 or more that protects from Ultraviolet A (UVA) and Ultraviolet B (UVB) wavelength light. This is referred to as broad spectrum sun protection. Unfortunately, even though the protection is broad it is not complete, therefore making sun avoidance the best protection. UVB and UVA have both been implicated in causing skin cancers. Older sunscreens only protected from UVB and sunscreens with added UVA protection should contain Titanium dioxide, Zinc oxide, Mexoryl or Parsol 1789, also known as Avobenzone. 3. Use sun protection daily. Apply 20-30 minutes before going out and reapply every 2 hours. No sunscreen is truly water ''proof'' and it will wash away with sweat, swimming and rubbing. 4. Wear tightly woven, loose fitting (cooler) long sleeved clothing, UV-blocking clothing is best and sun glasses (eyes need protection as well) and wide-brimmed hat (no straw hats with holes becauselight still gets through). HOW TO CHECK YOUR MOLES: 1. Check moles every month and have a relative/friend check your back if possible. The use of a handheld mirror can help as well. The most common place for melanoma in women are the back and legs, and for men is the back. 2. Look for the ABCD's of melanoma: Asymmetry (strange shape - not round or oval), Borders (notched, scalloped or irregular edges), Color (very black or multi-colored), Diameter (size greater than 5mm or the size greater than a pencil eraser). 3. Changes in old moles and growths of new ones in relation to the ABCD's are the most important factors. 4. Some people have many moles that fit the ABCD criteria. At times the best thing is to look for the ''Ugly Duckling'' mole - the one that stands out the most. 5. If there are any questions on a mole please do not hesitate in calling our office at [phone] to have it evaluated. documented in this encounter Progress Notes * Negrito Lake MD - 04/12/2023 9:49 AM EDT Guido Daley [id number] Chief Complaint: No chief complaint on file. Guido Daley is a 72 year old male with history of malignant melanoma, seen today to be monitored for recurrence at previously treated sites and to be evaluated for the development of new lesions. Hx MM date 2013, Depth unknown, no SLN, Location R sabianism (still no path in chart, pt confirmed that he had surgery for melanoma at that site and for BCC prior, see below) BCC R forehead 2008 ([facility]) Hx Hodgkins as a kid, XRT, no issues since then Moved here from [place] (Apr 2018) Review of Systems: Complete review of systems performed with attention to potential metastatic disease; pertinent findings are described below. All other systems are negative for the problems addressed today.Integument: Other itching, bleeding, or changing skin lesions currently? No Constitutional: Change in overall health, weight, weakness, fatigue, fevers, sweats, chills? No Neurologic: New seizures, stroke, or other neurologic deficit? No Psychiatric: New confusion or mood change? No Gastrointestinal: New jaundice, abdominal pain, blood in stool? No Genitourinary: New blood in the urine? No Lymphatic: New enlarged nodes? No Cardiovascular: New chest pain or edema? No Respiratory: New cough or shortness of breath? No Past Medical History: Diagnosis Date Atrial fibrillation (HCC) BMI less than 19,adult 03/16/2023 Bronchiectasis (HCC) Cardiac arrhythmia Coronary artery disease involving [place] coronary artery of [place] heart without angina pectoris 03/24/2019 Hodgkin's disease (HCC) 1977 s/p radiation Hx of melanoma of skin 03/24/2021 Hx MM date 2013, Depth unknown, no SLN, Location R sabianism ILD (interstitial lung disease) (HCC) Moderate aortic stenosis 03/24/2019 Nonrheumatic mitral valve stenosis 03/24/2019 JULIUS (obstructive sleep apnea) Pulmonary arterial hypertension (HCC) Raynaud's disease without gangrene 06/02/2019 Sleep apnea, obstructive Current Outpatient Medications Medication Sig Dispense Refill Acetylcysteine (NAC 600) 600 MG CAPS Take 1 Tab by mouth 2 times a day. 60 Cap Cyanocobalamin (B-12) 100 MCG TABS Take by mouth 1 Tablet daily . Cholecalciferol 25 MCG (1000 UT) Oral Capsule Take 1 Capsule by mouth in the morning. Multiple Vitamins-Minerals (OCUVITE ADULT FORMULA) CAPS Take by mouth 1 Capsule daily . (Patient not taking: Reported on 03/28/2023) Respiratory Therapy Supplies Device Use as directed. [...] breakfast or other meds) 90 Tablet 3 RSV Pre-Fusion F A&B Vac Rcmb 120 MCG/0.5ML Intramuscular Solution Reconstituted Given by Pharmacist 1 Each 0 No current facility-administered medications for this visit. Past Surgical History: Procedure Laterality Date ANESTH, CARDIAC ELECTROPHYS 2014 CARDIAC CATH-CARDIOLOGY ONLY approx 2012 CARDIOVERSION,ELECTIVE INTERNA 2011 CORONARY ANGIOGRAPHY W/LEFT HEART CATH Right 03/07/2023 CORONARY ANGIOGRAPHY W/LEFT HEART CATH performed by Armando Beltran MD at [facility] EGD, FLEXIBLE, DIAGNOSTIC 05/21/2019 reflux / [facility] MUSCLE BIOPSY, DEEP Left 04/11/2022 BIOPSY MUSCLE DEEP performed by Sadiq Kennedy MD at OR [facility] REMOVAL OF SPLEEN, TOTAL 1977 Due to Hodgkin's disease TOTAL HIP REPLACEMENT & PROSTHESIS Left 11/28/2021 Family History Problem Relation Age of Onset Breast Cancer Mother Other (Natural causes) Mother age 98 Lung Disorder Father Pulm fibrosis-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 Eyes: No scleral icterus. ENT: No cyanosis of lips. No pigmented lesions in oral cavity detected. Respiratory: Normal respiratory effort. Psychiatric: Patient mood and behavior are appropriate to situation. Neuro: Patient is alert and oriented. No apparent weakness or focal signs. Lymph Nodes: Lymph nodes in head, neck, supraclavicular, axillary, and inguinal areas show no lymphadenopathy. Skin: Exam of the scalp, face, conjunctivae, oral mucosa, neck, chest, back, abdomen, genitalia, groin, buttocks, and all four extremities is performed. All areas are normal except for the following findings. -There is a well-healed primary site with no evidence of disease. ASSESSMENT and PLAN: 1. History of Melanoma. - History was obtained regarding new or changing moles. - Patient counseled on self-examination for new or changing moles. - Advised age appropriate cancer screening The signs and symptoms of skin cancer were reviewed and the patient was advised to practice sun protection and sun avoidance, use daily sunscreen, and perform regular self-skin and lymph node exams on a monthly basis. I reviewed changes to watch for including changes in the A-B-C-D's, asymmetry of a lesion, changes in border, color or diameter as well as non healing lesions. I instructed the patie nt to call if any new lesions appear or current lesions change. Additional Problems: 2. Scar. Well healed. No evidence of disease. 3. Tinea pedis/ likely onychomycosis - recommended OTC lamisil cream twice daily until feet are clear and then for two more weeks. Use as needed. -advised vinegar soaks for nails. Follow up at [facility] in 12 months. However, the patient should seek an early evaluation by a medical provider if any suspicious lesions develop. There were no barriers to learning and no other pain was related to today's visit. The patient demonstrates understanding of the visit and treatment. The patient was seen and examined with Dr. Sinan Lake MD 04/12/2023 9:50 AM CC: Ref: SELF[[id number]] NO STREET ADDRESS AVAILABLE None (office) None (fax) documented in this encounter Nursing Notes * Farida Child LPN - 04/12/2023 9:54 AM EDT Patient identified by name and date of . Do you have any concerns about pain management for today's visit? No Living Will or Advance Directive for Health Care as noted on problem list. [facility] is a way you can talk to your provider online through e-mail. Would you like to sign up? I can activate it for you? ALREADY ACTIVE Chief Complaint Patient presents with Skin Check Patient is here for 1 year MM FBSE. Patient has a spot on his left foot that he would like looked at. Patient stated that the area is raised, scaly and itchy at times. Patient said it's been there for several months and getting worse. documented in this encounter Plan of Treatment Upcoming Encounters Date Type Department Care Team (Late st Contact Info) Description 04/17/2023 9:00 AM EDT Telemedicine Neurology, [place] [address] [place] [phone] Brenna Quinonez, MS [address] [place] [address] 05/18/2023 10:40 AM EST Office Visit Pulmonary Medicine, [facility] [address] [place] [address] Juan Pablo Marsh MD [address] [place] [address] 06/13/2023 8:30 AM EST Office Visit Cardiology, [facility] [address] [place] [address] Armando Beltran MD [address] [place] [address] 09/14/2023 1:20 PM EDT Office Visit Family Practice [facility] [address] [place] [address] Dewayne Pena MD [address] [facility] [place] [address] 10/02/2023 1:40 PM EDT Office Visit Rheumatology [place] [id number] [facility] [place] [address] Timo Guzman MD [facility] [place] [address] 04/15/2024 10:40 AM EDT Office Visit Dermatology [facility] [address] [place] [address] Jonnathan House PA-C [address] [place] [address] Health Maintenance Due Date Last Done Comments [...] D LEVEL ONCE IN A LIFETIME-USE SMARTSET# [id number] Completed 11/03/2022, 11/20/2018 Influenza Vaccine (FLU shot) [...] this encounter Medical Devices Implanted Type Area Mergers And Acquisitions Associate Device Identifier Shelf Expiration Date Model / Serial / Lot Cath Thermodilution 6fr - [id number] Implanted:Qty: 1 on 03/07/2023 by Armando Beltran MD at [facility] [employer] KRISTYN [id number] 10/10/2024 [id number] / / [id number] documented as of this encounter Visit Diagnoses Diagnosis Scar conditions and fibrosis of skin- Primary Scar condition and fibrosis of skin History of malignant melanoma of skin Personal history of malignant melanoma of skin Tinea pedis of left foot Dermatophytosis of foot documented in this encounter Advance Directives Documents on File Type Date Recorded 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
--- OUTSIDE RECORDS SUMMARY | 2023-10-08 23:14 | External Medical Summary | Summary of Care ---
Author Name Unknown Organization [facility] Address [address] [place] [address] Phone [phone] Care Team Providers Care Assistant Boiler Operator Name Role Phone SachiJason Primary Care Provider [phone] Reason for Visit * Reason Comments NEW PATIENT Encounter Details Date Type Department Care Team (Late st Contact Info) Description 04/11/2023 12:30 PM EDT Office Visit Cardiothoracic Surg [facility] [address] [place] [address] Zach Patel MD [address], [place] [id number] Aortic valve stenosis, unspecified etiology* Allergies No known active allergiesdocumented as of this encounter (statuses as of 04/11/2023) Medications Medication Sig Dispensed Refills Start Date [...] mouth 1 Capsule daily . 0 Active Acetaminophen 325 MG Oral Tablet (Tylenol) TAKE TWO TABLETS BY MOUTH EVERY 6 HOURS FOR THREE DAYS 24 Tablet 0 04/11/2022 04/11/2023 Active Metoprolol Succinate ER 25 MG Oral [...] as of this encounter (statuses as of 04/11/2023) Active Problems Problem Noted Date Diagnosed Date BMI less than 19,adult 03/16/2023 Senile osteoporosis 09/28/2022 Protein-calorie malnutrition 07/07/2022 Aortic root enlargement 07/07/2022 Neuromuscular disorder 07/07/2022 PHT (pulmonary hypertension) 06/02/2021 Hx of melanoma of skin 03/24/2021 Overview: Hx MM date 2013, Depth unknown, no SLN, Location R confucianism Hx of nonmelanoma skin cancer 03/24/2021 Overview: Hx MM date 2013, Depth unknown, no SLN, Location R confucianism (still no path in chart, pt confirmed that he had surgery for melanoma at that site and for BCC prior, see below) BCC R forehead 2008 ([facility]) PSVT (paroxysmal supraventricular tachycardia) 0 12/15/2019 Raynaud's disease without gangrene 06/02/2019 Esophageal dysmotility 05/20/2019 JULIUS (obstructive sleep apnea) 05/20/2019 ILD (interstitial lung disease) 05/20/2019 Coronary artery disease invo lving tejon coronary artery of tejon heart without angina pectoris 03/24/2019 Nonrheumatic mitral valve stenosis 03/24/2019 Moderate aortic stenosis 03/24/2019 H/O Hodgkin's lymphoma 07/05/2018 Acquired hypothyroidism 07/05/2018 documented as of this encounter (statuses as of 04/11/2023) Resolved Problems Problem Noted Date Diagnosed Date Resolved Date Osteoporotic fracture of left hip 09/28/2022 03/14/2023 Sinus tachycardia 03/16/2022 03/14/2023 Prediabetes 02/28/2021 02/01/2023 Overview: Per Prediabetes protocol Moderate protein malnutrition 12/15/2019 03/14/2023 Ankylosing spondylitis of cervical region 12/15/2019 07/07/2022 H/O atrial fibrillation with out current medication 07/05/2018 03/14/2023 documented as of this encounter (statuses as of 04/11/2023) Immunizations Name Administration Dates Next Due COVID-19 mRNA, LNP-s, No Pre serve, 2-Dose Series (Moderna) 08/21/2020,07/17/2020 COVID-19, MRNA-LNP, 23-24, P F, 30 MCG/0.3 mL, 12 YRS AND ABOVE, IM (Dot VN-ComirnatVisual Threat) 03/27/2023 COVID-19, mRNA, LNP-s, PF, B ooster, 100mcg/0.5mg (Moderna) 10/13/2021,04/13/2021 Covid-19, Mrna, Lnp-s, Pf, B ivalent, 30 Mcg, IM, 12 yrs and above (Property Partner) 11/09/2022,03/10/2022 PPD 12/29/2020,12/24/2018,12/03/2018 Pneumococcal Conjugate Vacc, 13 [...] Sign Reading Time Taken Comments Blood Pressure 102/68 04/11/2023 12:26 PM EDT Pulse 80 04/11/2023 12:22 PM EDT Temperature - - Respiratory Rate - - Oxygen Saturation 92% 04/11/2023 12:22 PM EDT Inhaled Oxygen Concentration - - Weight 65.4 kg (144 lb 3.2 oz) 04/11/2023 12:22 PM EDT Height 186.7 cm (6' 1.5") 04/11/2023 12:22 PM ED T Body Mass Index 18.77 04/11/2023 12:22 PM EDT documented in this encounter Progress Notes * Shay Hand PA-C - 04/11/2023 12:30 PM EDT Images from the original note were not included. HISTORY AND PHYSICAL EXAMINATION - CTVS Name: Guido Daley Date: 04/11/2023 Time: 1230 AM REFERRING PHYSICIAN: Jason Gross DO PCP: Jason Gross DO TOP COLLAR BASTER: Star Preference for return visit: [facility] [place] Schedule for in person visit at one week. HPI: Guido Daley is a 72 year old male who presents with severe ,severe MR with severe MAC and mildly dilated aortic root of 4.1 cm.Being followed for worsening SOB/CLANCY.There is a TAVR CTA scanpending Recently underwent pulmonary rehab and feels improved . Accompanied by . Patient has history of chest pain/angina: No Patient has history of SOB/CLANCY: significant shortness of breath with exertion and states that he needs to stop and rest after he walks about 50 feet on level ground and that he would be very short ofbreath prohibiting from walking uphill. Patient has syncope/presyncope: No Presentation associated with endocarditis/bacteremia: No Patient has PMH of: ,MR,MS,MAC, interstitial lung disease, positive NEREYDA, obstructive sleep apnea,esophageal dysmotility, hypothyroidism, prediabetes, Hodgkin's lymphoma with history of chest radiation therapy 45 years ago. [place] Heart Failure Classification: Class III (Moderate) Current Outpatient Medications Medication Sig Dispense Refill [...] Take by mouth 1 Capsule daily . Acetaminophen 325 MG Oral Tablet (Tylenol) TAKE TWO TABLETS BY MOUTH EVERY 6 HOURS FOR THREE DAYS 24 Tablet 0 Metoprolol Succinate ER 25 MG Oral Tablet [...] Reconstituted Given by Pharmacist 1 Each 0 Multiple Vitamins-Minerals (OCUVITE ADULT FORMULA) CAPS Take by mouth 1 Capsule daily . (Patient not taking: Reported on 03/28/2023) No current facility-administered medications for this visit. ALLERGIES: Patient has no known allergies. PAST MEDICAL HISTORY: Past Medical History: Diagnosis Date Atrial fibrillation (HCC) BMI less than 19,adult 03/16/2023 Bronchiectasis (HCC) Cardiac arrhythmia Coronary artery disease involving tejon coronary artery of tejon heart without angina pectoris 03/24/2019 Hodgkin's disease (HCC) 1976 s/p radiation Hx of melanoma of skin 03/24/2021 Hx MM date 2013, Depth unknown, no SLN, Location R confucianism ILD (interstitial lung disease) ([facility]) Moderate aortic stenosis 03/24/2019 Nonrheumatic mitral valve stenosis 03/24/2019 JULIUS (obstructive sleep apnea) Pulmonary arterial hypertension ([facility]) Raynaud's disease without gangrene 06/02/2019 Sleep apnea, obstructive PAST SURGICAL HISTORY: Past Surgical History: Procedure Laterality Date ANESTH, CARDIAC ELECTROPHYS 2014 CARDIAC CATH-CARDIOLOGY ONLY approx 2012 CARDIOVERSION,ELECTIVE INTERNA 2011 CORONARY ANGIOGRAPHY W/LEFT HEART CATH Right 03/07/2023 CORONARY ANGIOGRAPHY W/LEFT HEART CATH performed by Armando Beltran MD at [facility] [place] EGD, FLEXIBLE, DIAGNOSTIC 05/21/2019 reflux / [facility] MUSCLE BIOPSY, DEEP Left 04/11/2022 BIOPSY MUSCLE DEEP performed by Sadiq Kennedy MD at OR [facility] REMOVAL OF SPLEEN, TOTAL 1977 Due to Hodgkin's disease TOTAL HIP REPLACEMENT & PROSTHESIS Left 11/28/2021 Hx of vein harvest or stripping?: no SOCIAL HISTORY: Drug Use: never Social History Tobacco Use Smoking status: Former Packs/day: 1.00 Years: 10.00 Additional pack years: 0.00 Total pack years: 10.00 Types: Cigarettes Quit date: 06/18/1977 Years since quittin.8 Smokeless tobacco: Never Vaping Use Vaping Use: Never used Substance Use Topics Alcohol use: No Drug use: No FAMILY HISTORY: Family History Problem Relation Age of Onset Breast Cancer Mother Other (Natural causes) Mother age 98 Lung Disorder Father Pulm fibrosis-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- age 95 Heart attack Father LA x 2 Other (Parathyroid problems) Sister Other (Knee problems) Brother s/p knee replacement Family History of premature CAD: yes REVIEW OF SYSTEMS: Constitutional: weight drop about two years ago is now stable,denies night sweats,fevers etc Eyes: reports cataracts,uses contacts Ear, nose and throat: reports trouble swallowing, hx of myositis,uses pudding to take pills,needs aspiration precautions with liquids and solids Dental: twice yearly visits to the dentist Cardiac: denies LA or CVA,s/p ablation x 2 for afib Vascular: no claudication Respiratory: interstitial lung disease with multifactorial triggers including history of chest radiation, aspiration, and concerns of underlying myositis. JULIUS on CPAP Gastrointestinal: esophageal dysmotility,denies diarrhea or constipation,denies melena Genitourinary: nocturia 1-2 Musculoskeletal: minor hand arthritis,s/p left THR for fracture Psychiatric: denies depression, denies anxiety Skin: denies non-healing ulcers, denies jaundice Neurologic: weakness Endocrine: hypothyroidism,denies DM Hematologic / Lymphatic: denies blood clotting problems, denies anemiaremote hx of Hodgkins lymphoma with radiation therapy,asas only Immunologic: hx of Hodgkin's lymphoma with history of chest radiation therapy 45 years ago CARDIOTHORACIC COMPLETE PHYSICAL EXAM: Most Recent Vital Signs: BP 102/68 (BP Site: Right Arm, BP Position: Sitting, BP Cuff Size: Regular) | Pulse 80 | Ht 1.867 m(6' 1.5") | Wt 65.4 kg (144 lb 3.2 oz) | SpO2 92% | BMI 18.77 kg/m | BSA 1.84 m PHYSICAL EXAM: General: no acute distress Head: normocephalic, no masses, lesions, tenderness or abnormalities, obvious muscle loss and kyphosis of neck Eyes: conjunctiva are pink and non-injected, sclera clear, PERRLA, EOMI Nose: normal Teeth: teeth present without obvious periodontal disease Neck: supple, no adenopathy, thyroid normal size, non-tender, without nodularity, elevated jugular venous pulse, no hepatojugular reflux, transmitted cardiac murmer Chest: normal shape and normal respiratory effort Lungs: clear to auscultation and percussion Cardiac Exam: regular rate & rhythm A systolic murmur is present - holosystolic, grade 3/6, upper left sternal border, upper right sternal border, radiation to the neck Pulses: The following pulses are normal: carotids, femorals, abdominal aorta, radials, dorsalis pedis pulses, and posterior tibials Abdomen: abdomen soft, non-tender, no abnormal masses, no hepatosplenomegaly, and midline scar fromsplenectomy Extremities: no edema, no clubbing, and mild cyanosis Neuro: grossly normal exam,slight weakness with plantar flexion Veins superficial varicosities not involving the GSV, varicosities of the GSV STUDIES: Cardiac Cath Data:03/07/2023 Additional Findings: Coronary disease - hemodynamically insignificant pLAD 40% stenosis oRCA 40% stenosis Right Heart Catheterization RA = 1 mmHg [0-8 mmHg] RV = 43/-1 mmHg [20-30/0-8 mmHg] PA = 45/12 (27) mmHg [20-30/8-15 mmHg] PCWP = 20 mmHg [8-12 mmHg] Pulmonary vascular resistant = 1.14 Wood Unit (9135 dynes/sec/cm-5) (mPAP - PCWP)/CO Assumed CO (Say) = 6.13 L/min | CI = 3.26 L/min/m2 Saturations are normal: 94% arterial in aorta and 69% venous in PA Echocardiogram: Society of Thoracic Surgeons' Risk Score: STS site perative Mortality 2.43% Morbidity & Mortality 8.87% Stroke 1.46% Renal Failure 1.66% Reoperation 4.42% Prolonged Ventilation 4.16% Deep Sternal Wound Infection 0.022% Long Hospital Stay (>14 days) 7.5% Short Hospital Stay (<6 days)* 29% IMPRESSION: 72 y/o male with mixed aortic and mitral valvular disease as well as hx of interstitiallung disease, positive NEREYDA, obstructive sleep apnea, esophageal dysmotility, hypothyroidism, prediabetes, Hodgkin's lymphoma with history of chest radiation therapy 45 years ago PLAN: Per Venu INSTRUCTIONS: Continue current medications as directed. FOLLOW UP: likely TAVR Shay Hand PA-C CARDIOTHORACIC SURG [facility] [phone] Patient seen and studies reviewed. Guido Daley is a 72-year-old male with history of interstitial lung disease, chest radiation due to Hodgkin's lymphoma, esophageal dysmotility and hypothyroidism was been experiencing increasing shortness of breath and dyspnea on exertion. Echocardiogram demonstrates severe calcific aortic valve stenosis. There was also severe mitral regurgitation with heavy mitral annular calcification. Leftventricular systolic function is preserved. Coronary angiogram was negative for obstructive coronary disease. We have been asked to see him in consideration for valve replacement surgery. Guido has symptomatic aortic and mitral valve disease. The degree of mitral annular calcification place him at high risk for mitral valve replacement. His symptoms are reasonably well controlled and there is likely some component to his symptoms from his interstitial lung disease. I had a long discussion with Guido and his concerning the indications for intervention on his aortic and mitral valve. We discussed both surgical and possible percutaneous options. I believe it would be reasonable to offer him transcatheter aortic valve replacement in effort to relieve his aortic stenosis and lessen the degree of mitral valve regurgitation. I am concerned that his interstitial lung disease, and chest radiation along with his cachexia we will place him at near prohibitive risk for surgical aortic and mitral valve replacement. This was all discussed at length with the patient and his . We will review all his studies with the structural heart team and plan TAVR should all agree. Zach Patel MD Cardiac Surgery [facility] [place] [facility] documented in this encounter Plan of Treatment Upcoming Encounters Date Type Department Care Team (Late st Contact Info) Description 04/12/2023 10:00 AM EDT Office Visit Dermatology [facility] [address] [facility] [place] [address] Rebeka Menon MD [address] [place] [address] 04/17/2023 9:00 AM EDT Telemedicine Neurology, [place] [address] [place] [id number] Brenna Quinonez, MS [address], [place] [id number] 05/18/2023 10:40 AM EST Office Visit Pulmonary Medicine, [facility] [address] [facility] [place] [address] Juan Pablo Marsh MD [address] [place] [address] 06/13/2023 8:30 AM EST Office Visit Cardiology, [facility] [address] [place] [address] Armando Beltran MD [address] [place] [address] 09/14/2023 1:20 PM EDT Office Visit Family Practice [facility] [address] [place] [address] Dewayne Pena MD [address] [place] [address] 10/02/2023 1:40 PM EDT Office Visit Rheumatology [place] [id number] [place] [address] Timo Guzman MD [address] [facility] [place] [address] Health Maintenance Due Date Last Done Comments [...] D LEVEL ONCE IN A LIFETIME-USE SMARTSET# [id number] Completed 11/03/2022, 11/20/2018 Influenza Vaccine (FLU shot) [...] this encounter Medical Devices Implanted Type Area Guest Relations Manager Device Identifier Shelf Expiration Date Model / Serial / Lot Cath Thermodilution 6fr - [id number] Implanted:Qty: 1 on 03/07/2023 by Armando Beltran MD at [facility] [place] Level[employer]ENCES KRISTYN [id number] 10/10/2024 [id number] / / [id number] documented as of this encounter Visit Diagnoses Diagnosis Aortic valve stenosis, unspecified etiology- Primary documented in this encounter Advance Directives Documents on File Type Date Recorded Patient Pyrometer Temperature Regulator Expl anation POLST 03/06/2022 [place] DERS FOR LIFE-SUSTAINING TREATMENT [facility] 12/13/2021 [place] [facility] DERS FOR LIFE-SUSTAINING TREATMENT Latest [...] lorenzo occurred with: Patient Care Teams Assistant Boiler Operator Relationship Specialty Start Date End Date Jason Gross DO [address] [place] [address] PCP - General Family Medicine 11/08/18 documented as of this encounter
--- OUTSIDE RECORDS SUMMARY | 2023-10-08 23:14 | External Medical Summary | Summary of Care ---
Author Name Unknown Organization [facility] Address [address] [place] [address] Phone [phone] Care Team Providers Care Geotechnical Laboratory Technician Name Role Phone Sachi Jason Primary Care Provider Reason for Referral * Precert (Within 10 days (routine)) - Authorized Specialty Diagnoses / Procedures Referred By Contac t Referred To Contact Radiology Diagnoses Aortic valve stenosis Procedures CTA TAVR GATED STUDY Armando Beltran MD [address] [place] [address] Referral ID Status Reason Start Date Expiration Date V isits Requested Visits Authorized [id number] Authorized Precert 03/22/2023 05/21/2023 999 [id number] Reason for Visit * Precert (Within 10 days (routine)) - Authorized Specialty Diagnoses / Procedures Referred By Contac t Referred To Contact Radiology Diagnoses Aortic valve stenosis Procedures CTA TAVR GATED STUDY Armando Beltran MD [address] [place] [address] Referral ID Status Reason Start Date Expiration Date V isits Requested Visits Authorized [id number] Authorized Precert 03/22/2023 05/21/[phone] Encounter Details Date Type Department Care Team (Latest Contact Info) Description 04/11/2023 11:14 AM EDT - 04/11/2023 11:59 PM EDT Hospital Encounter Radiology, [place] [address] [place] [address] Arrived Discharge Disposition: Home - Self Care Allergies [...] other meds) 90 Tablet 3 03/16/2023 Active Acetaminophen 325 MG Oral Tablet (Tylenol) TAKE TWO TABLETS BY MOUTH EVERY 6 HOURS FOR THREE DAYS 24 Tablet 0 04/11/2022 3 documented as of this encounter (statuses as of 04/12/2023) Active Problems Problem Noted Date Diagnosed Date BMI less than 19,adult 03/16/2023 Senile osteoporosis 09/28/2022 Protein-calorie malnutrition 07/07/2022 Aortic root enlargement 07/07/2022 Neuromuscular disorder 07/07/2022 PHT (pulmonary hypertension) 06/02/2021 Hx of melanoma of skin 03/24/2021 Overview: Hx MM date 2013, Depth unknown, no SLN, Location R restoration Hx of nonmelanoma skin cancer 03/24/2021 Overview: Hx MM date 2013, Depth unknown, no SLN, Location R restoration (still no path in chart, pt confirmed that he had surgery for melanoma at that site and for BCC prior, see below) BCC R forehead 2008 ([facility]) PSVT (paroxysmal supraventricular tachycardia) 0 12/15/2019 Raynaud's disease without gangrene 06/02/2019 Esophageal dysmotility 05/20/2019 JULIUS (obstructive sleep apnea) 05/20/2019 ILD (interstitial lung disease) 05/20/2019 Coronary artery disease invo lving hoonah coronary artery of [place]oonah heart without angina pectoris 03/24/2019 Nonrheumatic mitral [...] MCG/0.3 mL, 12 YRS AND ABOVE, IM ([employer]-Comirnaty) 03/27/2023 COVID-19, mRNA, LNP-s, PF, B ooster, 100mcg/0.5mg (Moderna) 10/13/2021,04/13/2021 Covid-19, Mrna, Lnp-s, Pf, B ivalent, 30 Mcg, IM, 12 yrs and above ([employer]) 11/09/2022,03/10/2022 PPD 12/29/2020,12/24/2018,12/03/2018 Pneumococcal Conjugate Vacc, 13 [...] Description 04/17/2023 9:00 AM EDT Telemedicine Neurology, [place] [address] [place] [phone] Devi Brenna Shaila, MS [address] [place], [place] [id number] 05/18/2023 10:40 AM EST Office Visit Pulmonary Medicine, [facility] [address] [place] [address] Juan Pablo Marsh MD [address] [facility] [place] [address] 06/13/2023 8:30 AM EST Office Visit Cardiology, [facility] 132 [place] [address] Armando Beltran MD [address] [place] [address] 09/14/2023 1:20 PM EDT Office Visit Family Practice [facility] [address] [place] [address] Dewayne Pena MD [address] [place] [address] 10/02/2023 1:40 PM EDT Office Visit Rheumatology [address] [place] [address] Timo Guzman MD [facility] [place] [address] 04/15/2024 10:40 AM EDT Office Visit Dermatology [facility] [address] [place] [address] Jonnathan House PA-C [address] [place] [address] Health Maintenance Due Date Last Done [...] D LEVEL ONCE IN A LIFETIME-USE SMARTSET# 23534 Completed 11/03/2022, 11/20/2018 Influenza Vaccine (FLU shot) [...] encounter Medical Devices Implanted Type Area Customer Services Supervisor Device Identifier Shelf Expiration Date Model / Serial / Lot Cath Thermodilution 6fr - [id number] Implanted:Qty: 1 on 03/07/2023 by Armando Beltran MD at [facility] [employer] KRISTYN [id number] 10/10/2024 [id number] / / [id number] documented as of this encounter Procedures Procedure Name Priority Date/Time Associated Diagnosis Comments CTA TAVR GATED STUDY Routine 04/11/2023 11:42 AM EDT Aortic valve stenosis documented in this encounter Results * CTA TAVR GATED STUDY (04/11/2023 11:42 AM EDT) Anatomical Region Laterality Modality Chest, Abdomen, Pelvis, Body Com puted Tomography 04/11/2023 9:50 PM EDT Narrative 04/11/2023 9:48 PM EDT EXAM: 1. CTA CHEST WITH CONTRAST 2. CTA ABDOMEN PELVIS WITH CONTRAST 3. CTA TAVR HISTORY: pre TAVR COMPARISON: CT chest from 11/16/2022 TECHNIQUE: 1. CTA chest with intravenous contrast was performed. MIP images were obtained and reviewed. 2. CTA abdomen pelvis with intravenous contrast was performed. MIP images were obtained and reviewed. 3. CTA TAVR CONTRAST: 100 ml intravenously. FINDINGS: CTA CHEST: PULMONARY ARTERIES: No pulmonary embolism. Main pulmonary artery is enlarged. AORTA: Tricuspid aortic valve with severe annular calcifications. Total annular calcium score of 3757. Extremely dense subvalvular calcifications bridging into the mitral annulus. Bovine arch configuration. Measurements as follows: Annulus systole: 5.90 cm2 LVOT 4 mm below annular plane:7.41 SOV: 42.0 mm x 39.7 mm x 37.9 mm Right coronary ostia height from annulus: 21.8 mm Left coronary ostia height from annulus: 16.2 mm C-Arm angle: FORREST 31, CAU 24 Aortic root angle: 43.9 deg Sinotubular junction: 35.3 mm Diameter 40 mm above the annulus: 31.5 mm Max ascending aorta: 32 mm HEART: Marked cardiomegaly with biatrial enlargement. Severe mitral annular calcifications. Moderate dilatation of the left atrial appendage. Mild trivessel coronary artery atherosclerosis. MEDIASTINUM/EVER: No lymphadenopathy. CHEST WALL/AXILLA: Mild bilateral gynecomastia. LUNGS/PLEURA: Unchanged basilar predominant peripheral reticulations and traction bronchiectasis compatible with interstitial pulmonary fibrosis. Central airways are clear. No pleural effusion or pneumothorax. CTA ABDOMEN PELVIS: LIVER: Hepatic steatosis. GALLBLADDER/BILE DUCTS: Unremarkable. PANCREAS: Unremarkable. GI TRACT: No evidence of bowel obstruction. Fecalization of multiple loops of small bowel, this can be seen with chronic constipation/colonic dysmotility.. SPLEEN: Surgically absent. LYMPH NODES: Calcified aortocaval nodular density measuring up to 1 cm (series 10, image 273). ADRENAL GLANDS: Unremarkable. KIDNEYS/URETERS: Cortical infarction of the left upper pole of the kidney. URINARY BLADDER: Unremarkable. REPRODUCTIVE ORGANS: Prostatomegaly. VASCULATURE: Scattered atherosclerotic calcifications without aortic aneurysm. Celiac, SMA and DOMINIQUE are patent patent. Single patent renal arteries bilaterally. Average min diameter abdominal aorta: 20.4 mm Average max diameter abdominal aorta: 24.7 mm Min left iliofemoral diameter: 8.29 mm Min right iliofemoral diameter: 8.85 mm MISCELLANEOUS: Multiple surgical clips along the inferior aspect of the left lobe of the liver and head of the pancreas. Surgical clips along the left posterior retroperitoneum. Surgical clips in the left inguinal region. MUSCULOSKELETAL: Status post left total hip replacement. IMPRESSION: Tricuspid aortic valve with severe annular calcifications. Total annular calcium score of 3757. Ectasia of the aortic root measuring up to 4.2 cm. Dense subvalvular calcifications bridging into the mitral annulus. Suitable coronary heights. Adequate iliofemoral diameter for TAVR cannulation with mild tortuosity. Marked cardiomegaly with biatrial enlargement and severe mitral annular calcifications. Mild trivessel coronary artery atherosclerosis. 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 Multiple surgical clips seen in the left inguinal region left retroperitoneal region and along the pancreatic head and left hepatic lobe of uncertain clinical significance. Correlate with past surgical history. 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 Procedure Note Shawn Casas MD - 04/11/2023 EXAM: 1. CTA CHEST WITH CONTRAST 2. CTA ABDOMEN PELVIS WITH CONTRAST 3. CTA TAVR HISTORY: pre TAVR COMPARISON: CT chest from 11/16/2022 TECHNIQUE: 1. CTA chest with intravenous contrast was performed. MIP images wereobtained and reviewed. 2. CTA abdomen pelvis with intravenous contrast was performed. MIP imageswere obtained and reviewed. 3. CTA TAVR CONTRAST: 100 ml intravenously. FINDINGS: CTA CHEST: PULMONARY ARTERIES: No pulmonary embolism. Main pulmonary artery isenlarged. AORTA: Tricuspid aortic valve with severe annular calcifications. Totalannular calcium score of 3757. Extremely dense subvalvular calcificationsbridging into the mitral annulus. Bovine arch configuration. Measurements as follows: Annulus systole: 5.90 cm2 LVOT 4 mm below annular plane:7.41 SOV: 42.0 mm x 39.7 mm x 37.9 mm Right coronary ostia height from annulus: 21.8 mm Left coronary ostia height from annulus: 16.2 mm C-Arm angle: FORREST 31, CAU 24 Aortic root angle: 43.9 deg Sinotubular junction: 35.3 mm Diameter 40 mm above the annulus: 31.5 mm Max ascending aorta: 32 mm HEART: Marked cardiomegaly with biatrial enlargement. Severe mitralannular calcifications. Moderate dilatation of the left atrial appendage.Mild trivessel coronary artery atherosclerosis. MEDIASTINUM/EVER: No lymphadenopathy. CHEST WALL/AXILLA: Mild bilateral gynecomastia. LUNGS/PLEURA: Unchanged basilar predominant peripheral reticulations andtraction bronchiectasis compatible with interstitial pulmonary fibrosis.Central airways are clear. No pleural effusion or pneumothorax. CTA ABDOMEN PELVIS: LIVER: Hepatic steatosis. GALLBLADDER/BILE DUCTS: Unremarkable. PANCREAS: Unremarkable. GI TRACT: No evidence of bowel obstruction. Fecalization of multipleloops of small bowel, this can be seen with chronic constipation/colonicdysmotility.. SPLEEN: Surgically absent. LYMPH NODES: Calcified aortocaval nodular density measuring up to 1 cm(series 10, image 273). ADRENAL GLANDS: Unremarkable. KIDNEYS/URETERS: Cortical infarction of the left upper pole of thekidney. URINARY BLADDER: Unremarkable. REPRODUCTIVE ORGANS: Prostatomegaly. VASCULATURE: Scattered atherosclerotic calcifications without aorticaneurysm. Celiac, SMA and DOMINIQUE are patent patent. Single patent renalarteries bilaterally. Average min diameter abdominal aorta: 20.4 mm Average max diameter abdominal aorta: 24.7 mm Min left iliofemoral diameter: 8.29 mm Min right iliofemoral diameter: 8.85 mm MISCELLANEOUS: Multiple surgical clips along the inferior aspect of theleft lobe of the liver and head of the pancreas. Surgical clips along theleft posterior retroperitoneum. Surgical clips in the left inguinalregion. MUSCULOSKELETAL: Status post left total hip replacement. IMPRESSION: Tricuspid aortic valve with severe annular calcifications. Total annularcalcium score of 3757. Ectasia of the aortic root measuring up to 4.2 cm.Dense subvalvular calcifications bridging into the mitral annulus.Suitable coronary heights. Adequate iliofemoral diameter for TAVR cannulation with mild tortuosity. Marked cardiomegaly with biatrial enlargement and severe mitral annularcalcifications. Mild trivessel coronary artery atherosclerosis. 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 Multiple surgical clips seenin the left inguinal region left retroperitoneal region and along thepancreatic head and left hepatic lobe of uncertain clinical significance.Correlate with past surgical history. 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 Armando Beltran MD RAD CT documented in this encounter Visit Diagnoses Diagnosis Aortic valve stenosis Aortic valve disorders documented in this encounter Administered Medications Inactive Administered Medications - up to 3 most recent administrations Medication Order MAR Action Action Date Dose Rate Site Ioversol (Optiray 350) 74 % inj 100 mL 100 mL, Intravenous, ONCE, On Sun04/11/23 at 1144, For 1 dose, Radiology Medication Routing (Non-IR) Given 04/11/2023 11:44 AM EDT 100 mL documented in this encounter Advance Directives Documents on File Type Date Recorded Patient Disbursement Clerk Expl anation POLST 03/06/2022 [place] [...] Direct lorenzo occurred with: Patient Care Teams Geotechnical Laboratory Technician Relationship Specialty Start Date End Date Jason Karimi DO [address] [place] [address] PCP - General Family Medicine 11/08/18 documented as of this encounter
--- OUTSIDE RECORDS SUMMARY | 2023-10-08 23:14 | External Medical Summary | Summary of Care ---
Author Name Unknown Organization [facility] Address [address] [place] [address] Phone [phone] Care Team Providers Care Stem Roller Or Crusher Operator Name Role Phone SachiJason rea Primary Care Provider [phone] Reason for Visit * Reason Comments Skin [...] 04/12/2023 10:00 AM EDT Office Visit Dermatology [facility] [address] [facility] [place] [address] Rebeka Menon MD [address] [place] [address] Scar conditions and fibrosis of skin*; History [...] Depth unknown, no SLN, Location R latter-day Hx of nonmelanoma skin cancer 03/24/2021 Overview: Hx MM date 2013, Depth unknown, no SLN, Location R latter-day (still no path in chart, pt confirmed that he had surgery for melanoma at that site and for BCC prior, see below) BCC R forehead 2008 ([facility]) PSVT (paroxysmal supraventricular tachycardia) 0 [...] MCG/0.3 mL, 12 YRS AND ABOVE, IM ([employer]-Comirnat) 03/27/2023 COVID-19, mRNA, LNP-s, PF, B ooster, 100mcg/0.5mg (Moderna) 10/13/2021,04/13/2021 Covid-19, Mrna, Lnp-s, Pf, B ivalent, 30 Mcg, IM, 12 yrs and above ([employer]) 11/09/2022,03/10/2022 PPD 12/29/2020,12/24/2018,12/03/2018 Pneumococcal Conjugate Vacc, 13 [...] this encounter Patient Instructions * Patient Instructions* Negirto Lake MD - 04/12/2023 9:50 AM EDT [...] not hesitate in calling our office at [phone] to have it evaluated. documented in this encounter Progress Notes * Negrito Lake MD - 04/12/2023 9:49 AM EDT Guido Daley [phone] Chief Complaint: No chief complaint on file. [...] prior, see below) BCC R forehead 2008 ([facility]) Hx Hodgkins as a kid, XRT, no issues since then Moved here from [place] (Apr 2018) Review of Systems: Complete review [...] (HCC) Cardiac arrhythmia Coronary artery disease involving pamunkey coronary artery of pamunkey heart without angina pectoris 03/24/2019 Hodgkin's disease (HCC) 1977 s/p radiation Hx of melanoma of skin 03/24/2021 Hx MM date 2013, Depth unknown, no SLN, Location R latter-day ILD (interstitial lung disease) (HCC) Moderate aortic [...] [facility] EGD, FLEXIBLE, DIAGNOSTIC 05/21/2019 reflux / [facility] MUSCLE BIOPSY, DEEP Left 04/11/2022 BIOPSY MUSCLE DEEP performed by Sadiq Kennedy MD at OR [facility] REMOVAL OF SPLEEN, TOTAL 1977 Due to Hodgkin's disease TOTAL HIP REPLACEMENT & PROSTHESIS Left 11/28/2021 Family History Problem Relation Age of Onset Breast Cancer Mother Other (Natural causes) Mother age 98 Lung Disorder Father 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 Follow up at [facility] in 12 months. However, the patient should seek an early evaluation by a medical provider if any suspicious lesions develop. There were no barriers to learning and no other pain was related to today's visit. The patient demonstrates understanding of the visit and treatment. The patient was seen and examined with Dr. Sinan Lake MD 04/12/2023 9:50 AM CC: Ref: SELF[[id number]] NO STREET ADDRESS AVAILABLE None (office) None (fax) documented in this encounter Nursing Notes * Farida Child LPN - 04/12/2023 9:54 AM EDT Patient identified by name and date of . Do you have any concerns about pain management for today's visit? No Living Will or Advance Directive for Health Care as noted on problem list. [facility] is a way you can talk to [...] Description 04/17/2023 9:00 AM EDT Telemedicine Neurology, [place] [address] [place] [phone] Brenna Quinonez, MS [address] [place] [address] 05/18/2023 10:40 AM EST Office Visit Pulmonary Medicine, [facility] [address] [place] [address] Juan Pablo Marsh MD [address] [place] [address] 06/13/2023 8:30 AM EST Office Visit Cardiology, [facility] [address] [facility] [place] [address] Armando Beltran MD [address] [place] [address] 09/14/2023 1:20 PM EDT Office Visit Family Practice [facility] [address] [facility] [place] [address] Dewayne Pena MD [address] [place] [address] 10/02/2023 1:40 PM EDT Office Visit Rheumatology [place] [address] [facility] [place] [address] Timo Guzman MD [facility] [place] [address] 04/15/2024 10:40 AM EDT Office Visit Dermatology [facility] [address] [place] [address] Jonnathan House PA-C [address] [place] [address] Health Maintenance Due Date Last Done Comments [...] D LEVEL ONCE IN A LIFETIME-USE SMARTSET# 72790 Completed 11/03/2022, 11/20/2018 Influenza Vaccine (FLU shot) [...] this encounter Medical Devices Implanted Type Area Strip Deburrer Device Identifier Shelf Expiration Date Model / Serial / Lot Cath Thermodilution 6fr - [id number] Implanted:Qty: 1 on 03/07/2023 by Armando Beltran MD at [facility]ARDIAC LABS [facility] [employer] KRISTYN [id number] 10/10/2024 [id number] / / [id number] documented as of this encounter Visit Diagnoses Diagnosis Scar conditions and fibrosis of skin- Primary Scar condition and fibrosis of skin History of malignant melanoma of skin Personal history of malignant melanoma of skin Tinea pedis of left foot Dermatophytosis of foot documented in this encounter Advance Directives Documents on File Type Date Recorded Patient Criminal Justice Social Worker Expl anation POLST 03/06/2022 [place] OR DERS [...] Direct lorenzo occurred with: Patient Care Teams Stem Roller Or Crusher Operator Relationship Specialty Start Date End Date Jason Karimi DO [address] [facility] [place] [address] PCP - General Family Medicine 11/08/18 documented as of this encounter
--- OUTSIDE RECORDS SUMMARY | 2023-10-08 23:14 | External Medical Summary | Summary of Care ---
Author Name Unknown Organization [facility] Address [address] [place] [address] Phone [phone] Care Team Providers Care Housing Case Manager Name Role Phone Jason Karimi Primary Care Provider [phone] Encounter Details Date Type Department Care Team (Late st Contact Info) Description 04/17/2023 Orders Only Outcomes Research Department [address] [place], [place] [id number] Kathe May CHRA [employer] Other*[id number] Allergies No known active allergiesdocumented as of this encounter (statuses as of 04/17/2023) Medications Medication Sig Dispensed Refills Start Date [...] as of this encounter (statuses as of 04/17/2023) Active Problems Problem Noted Date Diagnosed Date BMI less than 19,adult 03/16/2023 Senile osteoporosis 09/28/2022 Protein-calorie malnutrition 07/07/2022 Aortic root enlargement 07/07/2022 Neuromuscular disorder 07/07/2022 PHT (pulmonary hypertension) 06/02/2021 Hx of melanoma of skin 03/24/2021 Overview: Hx MM date 2013, Depth unknown, no SLN, Location R mormon Hx of nonmelanoma skin cancer 03/24/2021 Overview: Hx MM date 2013, Depth unknown, no SLN, Location R mormon (still no path in chart, pt confirmed that he had surgery for melanoma at that site and for BCC prior, see below) BCC R forehead 2009 ([facility]) PSVT (paroxysmal supraventricular tachycardia) 0 [...] as of this encounter (statuses as of 04/17/2023) Resolved Problems Problem Noted Date Diagnosed Date Resolved Date Osteoporotic fracture of left hip 09/28/2022 03/14/2023 Sinus tachycardia 03/16/2022 03/14/2023 Prediabetes 02/28/2021 02/01/2023 Overview: Per Prediabetes protocol Moderate protein malnutrition 12/15/2019 03/14/2023 Ankylosing spondylitis of cervical region 12/15/2019 07/07/2022 H/O atrial fibrillation with out current medication 07/05/2018 03/14/2023 documented as of this encounter (statuses as of 04/17/2023) Immunizations Name Administration Dates Next Due COVID-19 [...] Description 04/17/2023 9:00 AM EDT Telemedicine Neurology, [place] [address] [place] [address] Brenna Quinonez, MS [address] [place] [address] 06/13/2023 8:30 AM EST Office Visit Cardiology, [facility] 132 [facility] [place] [address] Armando Beltran MD [address] [place] [address] 06/25/2023 10:20 AM EST Office Visit Pulmonary Medicine, [facility] 132 [facility] [place] [address] Juan Pablo Marsh MD [address] [place] [address] 09/14/2023 1:20 PM EDT Office Visit Family Practice [facility] [address] [place] [address] Dewayne Pena MD [address] [place] [address] 10/02/2023 1:40 PM EDT Office Visit Rheumatology [address] [place] [address] Timo Guzman MD [address] [place] [address] [place] [address] 04/15/2024 10:40 AM EDT Office Visit Dermatology [facility] [address] [place] [address] Jonnathan House PA-C [address] [place], [place] [phone] Scheduled Orders Name Type Priority Associated Diagnoses Orde r Schedule MYCODE SUBSEQUENT ADULT Lab Routine [employer] Other*[id number] Every 6 Months for 2 Occurrences starting 04/17/2023 until 05/06/2024 Health Maintenance Due Date Last Done Comments [...] D LEVEL ONCE IN A LIFETIME-USE SMARTSET# [id number] Completed 11/03/2022, 11/20/2018 Influenza Vaccine (FLU shot) [...] this encounter Medical Devices Implanted Type Area Saw Repairer Device Identifier Shelf Expiration Date Model / Serial / Lot Cath Thermodilution 6fr - [id number] Implanted:Qty: 1 on 03/07/2023 by Armando Beltran MD at [facility] [employer] KRISTYN [id number] 10/10/2024 [id number] / / [id number] documented as of this encounter Visit Diagnoses Diagnosis [employer] Other*[id number] documented in this encounter Advance Directives Documents on File Type Date Recorded Patient Car Hostler Expl anation POLST 03/06/2022 [place] OR DERS [...] Direct lorenzo occurred with: Patient Care Teams Housing Case Manager Relationship Specialty Start Date End Date Jason Karimi DO [address] [place] [address] PCP - General Family Medicine 11/08/18 documented as of this encounter
--- OUTSIDE RECORDS SUMMARY | 2023-10-08 23:14 | External Medical Summary | Summary of Care ---
Author Name Unknown Organization [facility] Address [address] [place] [address] Phone [phone] Care Team Providers Care Laser Beam Color Scanner Operator Name Role Phone SachiJason Primary Care Provider + [phone] Reason for Visit * Reason Comments Genetic Counseling Encounter Details Date Type Department Care Team (Late st Contact Info) Description 04/17/2023 9:00 AM EDT Telemedicine Neurology, [place] [address] [place] [address] Brenna Quinonez, MS [address] [place] [address] Myopathy* Allergies No known active allergiesdocumented as of this encounter (statuses as of 04/24/2023) Medications Medication Sig Dispensed Refills Start Date [...] as of this encounter (statuses as of 04/24/2023) Active Problems Problem Noted Date Diagnosed Date BMI less than 19,adult 03/16/2023 Senile osteoporosis 09/28/2022 Protein-calorie malnutrition 07/07/2022 Aortic root enlargement 07/07/2022 Neuromuscular disorder 07/07/2022 PHT (pulmonary hypertension) 06/02/2021 Hx of melanoma of skin 03/24/2021 Overview: Hx MM date 2013, Depth unknown, no SLN, Location [facility] Hx of nonmelanoma skin cancer 03/24/2021 Overview: Hx MM date 2013, Depth unknown, no SLN, Location [facility] (still no path in chart, pt confirmed that he had surgery for melanoma at that site and for BCC prior, see below) BCC R [facility] 2008 ([facility]) PSVT (paroxysmal supraventricular tachycardia) 0 12/15/2019 [...] as of this encounter (statuses as of 04/24/2023) Resolved Problems Problem Noted Date Diagnosed Date Resolved Date Osteoporotic fracture of left hip 09/28/2022 03/14/2023 Sinus tachycardia 03/16/2022 03/14/2023 Prediabetes 02/28/2021 02/01/2023 Overview: Per Prediabetes protocol Moderate protein malnutrition 12/15/2019 03/14/2023 Ankylosing spondylitis of cervical region 12/15/2019 07/07/2022 H/O atrial fibrillation with out current medication 07/05/2018 03/14/2023 documented as of this encounter (statuses as of 04/24/2023) Immunizations Name Administration Dates Next Due COVID-19 mRNA, LNP-s, No Pre serve, 2-Dose Series (Moderna) 08/21/2020,07/17/2020 COVID-19, MRNA-LNP, 23-24, P F, 30 MCG/0.3 mL, 12 YRS AND ABOVE, IM (Performance Indicator-ComirnatImage Insight) 03/27/2023 COVID-19, mRNA, LNP-s, PF, B ooster, [...] 2:47 PM EDT Sexual Orientation Straight 09/26/2022 2 :47 PM EDT Job Start Date Occupation Industry Not on file Not on file Not on file documented as of this encounter Progress Notes * Brenna Quinonez, MS - 04/17/2023 9:00 AM EDT Patient location: HOME. I was in a hospital or clinic location. After connecting through [employer],patient was verified with two unique identifiers. 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 Methods to assure confidentiality were taken. Patient acknowledged consent and understanding of pr ivacy and security of the Telemedicine visit. The patient agreed to participate. Genetic Counseling Visit Patient: Guido Daley : 1950 Date: 04/17/2023 Patient was referred to Genetics by: ELOY Burgos Chief Complaint: Myopathy History of the chief complaint: Guido Daley is a 72 year old male referred to genetic counseling for a personal history of myopathy. First symptom was foot numbness in his 60s, followed by head drop, has been progressive. History of Hodgkin's lymphoma at age 26. Past evaluations: 01/30/2022, Neurology, Impression: "The patient is a very thin male in no apparent distress. With minimal exercise he becomes mildly tachycardic. He is not short of breath. Speech is not overtly nasal. Pupils are equal round reactive to light the optic nerves are grossly normal there are normal cline motility without nystagmus there is normal eye closure. There may be some minor by facial weakness if so it may be somewhat more soon the left than right although this may just be simply the patient's mi. The patient's tongue is midline gag mild Brennan reduced bilaterally tongue appears to be strong and not atrophic. Jaw opening is normal. The patient has severe atrophy of all the muscles of his neck including the paracervical s ternocleidomastoid trapezius and scapular musculature. He has markedly weak in neck flexion and still markedly weak in neck extension although somewhat less so. There is mild diffuse weakness of the musculature her such as sternocleidomastoid trapezius supraspinatus infinity infraspinatus should scapula does not wing. He is very thin no focal atrophy no fasciculations are noted. His is thin in the uppers as lowers no contractures are noted. No focal weakness in the upper and lower although he is mildly diffusely weak. Reflexes are present at the knees absent at the ankles symmetrically mildly reduced in the uppers no clonus toes are downgoing. Sensory examination reveals and ankle level to vibration and temperature patient has to lean backward with an exaggerated lumbar lordosis to keep his head up. 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 All information collected by Nubia Daley. Children: None Siblings: Sister, 78y, balance problem Brother, 71y, knee operations BL Mother: d.98y, Breast cancer, lyme disease, arthritis MGM: d. 70s,Cause-NOS MGF: d. 70s,Cause-NOS Other maternal relatives: No known neuromuscular Father: d. 97y, Lung fibrosis, late onset dementia, several small MIs starting in late 70s PGM: d. childbirth PGF: d.60s NE Other paternal relatives: No known neuromuscular Consanguinity: denied Counseling Session: Guido was seen today by the genetic counselor to discuss his genetic testing options in the context of his clinical and family history. After meeting, we discussed the following things: We reviewed genes, DNA, chromosomes, and inheritance. Past Test Results Discussion: We discussed that this testing did not reveal a definite genetic cause for his symptoms. However, there were variants identified by this test that warrant further discussion. 1. 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 Most cases are caused by a mutation that results in a premature stop signal in the instructions for making AMP deaminase. -This variant creates a premature stop codon, however, alternative splicing may rescue certain truncations in exon 2 of this gene. Whole-exome sequencing Whole-exome sequencing (GALLITO) is a broad test that would look at all of the genes. Our genome refersto all of our genetic material, including all of the genetic material that encodes a protein (exons) as well as the genetic material that get cut out when making a protein (introns). Our exome refersto just the exons, which makes up about 1-2% of the genome. Therefore, whole exome sequencing includes reading through just the exons to look for any spelling changes. The advantage of GALLITO over a panel is that we are more likely to find a gene change if one exists.The types of possible results withWES are explained more below. Possible test results include: Positive - a spelling change is detected that has been previously reported and known to be associated with a particular disorder. Negative (normal) - no spelling changes found in the exons. This does not rule out a genetic cause Guido 's concerns, because this testing is not perfect. It could be that there is a change in an intron that affects the function of a gene, or there could be a spelling change that is not detectable by this testing technology. Variant of Unclear Significance - a spelling change is found, but it is unclear whether this lead to any concerns with health or development/ learning. Variant in Candidate Gene - a spelling change is found in a gene that is not associated with a particular syndrome, but based on the function of the gene it is hypothesized that this could cause concerns. Secondary findings - a change in a gene that is not associated with Guido 's concerns, but may lead to other concerns for him in the future (i.e. change in a gene that leads to increased risk for cancer). The [employer] ([employer]) has recommended a subset of genes associated with medically actionable, inherited disorders have the option of being reported - these conditions are referred to as secondary findings. Secondary findings are defined as known or expected pathogenic variants, identified by exome sequencing, in a gene that is not associated with an individual's concerns but may lead to other concerns for them in the future. Secondary findings are medically actionable in some way which may include increased medical surveillance. There is legislation called ERVIN, which offers protection against health insurance and employment discrimination based on genetic test results for asymptomatic individuals. This protection does not extend to life or disability insurance. GALLITO can typically detect larger deletions and duplications of genetic material. Occasionally, additional testing, such as a chromosomal microarray, may be indicated after GALLITO if it could not assess for these types of variants. The family will be notified if is this additional testing is indicated. Parental samples will not be included as neither of the patient's biological parents are available to provide a sample. Guido expressed understanding of this information and elected to proceed with GALLITO with disclosureof secondary findings. Plan: GALLITO proband-only to [facility], kit will be mailed to patient's home 2. One sample is received, results generally take up to 6-8 weeks Patient was seen for a total of 21 minutes of which greater than 50% was spent face to face counseling. Brenna Quinonez MS, [facility] Licensed, Certified Genetic Counselor documented in this encounter Plan of Treatment Upcoming Encounters Date Type Department Care Team (Late st Contact Info) Description 04/30/2023 10:00 AM EST Laboratory [facility] [place] [address] [place] [address] [address] 06/25/2023 10:20 AM EST Office Visit Pulmonary Medicine, [facility] [address] [place] [address] Juan Pablo Marsh MD [address] [place] [address] 08/15/2023 8:30 AM EST Office Visit Cardiology, [facility] [address] [place] [address] Armando Beltran MD [address], [place] [id number] 09/14/2023 1:20 PM EDT Office Visit Family Practice [facility] [address] [place] [address] Dewayne Pena MD [address] [place] [address] 10/02/2023 1:40 PM EDT Office Visit Rheumatology [place] [id number] [facility] [place] [address] Timo Guzman MD [facility] [place] [address] 04/15/2024 10:40 AM EDT Office Visit Dermatology [facility] [address] [place] [address] Jonnathan House PA-C [address] [place] [address] Scheduled Orders Name Type Priority Associated Diagnoses Orde r Schedule XOMEDXPLUS-PROBAND, GENEDX Lab Routine Myopathy Expected: 05/01/2023, Expires: 04/17/2024 Health Maintenance Due Date Last Done Comments [...] D LEVEL ONCE IN A LIFETIME-USE SMARTSET# 33496 Completed 11/03/2022, 11/20/2018 Influenza Vaccine (FLU shot) [...] this encounter Medical Devices Implanted Type Area Adjunct Instructor In Economics Device Identifier Shelf Expiration Date Model / Serial / Lot Cath Thermodilution 6fr - [id number] Implanted:Qty: 1 on 03/07/2023 by Armando Beltran MD at [facility] [employer]STYN [id number] 10/10/2024 [id number] / / [id number] documented as of this encounter Visit Diagnoses Diagnosis Myopathy- Primary Myopathy, unspecified documented in this encounter Advance Directives Documents on File Type Date Recorded Patient Assistant Product Manager Expl anation POLST 03/06/2022 [place] DERS [...] Direct lorenzo occurred with: Patient Care Teams Laser Beam Color Scanner Operator Relationship Specialty Start Date End Date Jason Karimi DO PCP - General Family Medicine 11/08/18 documented as of this encounter
[2023-10-09] MEDS: LEVOTHYROXINE SODIUM 75 MCG TABLET PO SCH (06:01)
[2023-10-09 06:56] LABS: Basophils # (auto) 0.07 K/uL (0.00-0.20); Basophils % (auto) 0.8 %; Eosinophils # (auto) 0.44 K/uL (0.00-0.50); Eosinophils % (auto) 4.8 %; Hematocrit (blood only) 37.4 % (42.0-52.0); Hemoglobin 12.3 g/dl (14.0-18.0); Immature Granulocytes # (auto) 0.02 K/uL (0.01-0.20); Immature Granulocytes % (auto) 0.2 %; Lymphocytes # (auto) 1.33 K/uL (1.20-3.40); Lymphocytes % (auto) 14.5 %; Mean Corpuscular Hemoglobin 33.7 pg (25.0-34.0); Mean Corpuscular Hgb Conc 32.9 g/dL (32.0-36.0); Mean Corpuscular Volume 102.5 fL (80.0-100.0); Mean Platelet Volume 11.8 fL (9.4-12.4); Monocytes # (auto) 1.58 K/uL (0.11-0.59); Monocytes % (auto) 17.2 %; Neutrophils # (auto) 5.76 K/uL (1.40-6.50); Neutrophils % (auto) 62.5 %; Platelet Count 245 K/uL (130-400); RDW Coefficient of Variation 16.3 % (11.5-14.5); RDW Standard Deviation 61.6 fL (36.4-46.3); Red Blood Count 3.65 M/uL (4.70-6.10)
[2023-10-09 07:18] LABS: Calcium 9.2 mg/dl (8.6-10.3); Chol HDL Ratio 2.2 (0-5); Creatinine Clr Calc Pharmacy 100.1 ml/min; Est GFR (African American) 115.6 ml/min; Est GFR (Non-African American) 99.7 ml/min; Potassium 4.1 mmol/L (3.5-5.1)
[2023-10-09 07:25] LABS: Troponin I High Sensitivity 31.5 pg/ml (0-20)
[2023-10-09] MEDS: CYANOCOBALAMIN (B-12) 500 MCG TABLET PO SCH (07:51)
[2023-10-09] MEDS: ASPIRIN 81 MG ECTAB PO SCH (07:52)
[2023-10-09] MEDS: CHOLECALCIFEROL 25 MCG (1000 UNITS) TAB PO SCH (07:52)
[2023-10-09] MEDS: ATORVASTATIN 40 MG TAB PO SCH (07:53)
--- NOTE | 2023-10-09 08:11 | Cardiology Consultation ---
Date of Consultation October 09, 2023 Assessment & Plan (1) TIA (transient ischemic attack): (2) Occlusion of left vertebral artery: (3) Elevated troponin: (4) Tachycardia: (5) Atrial fibrillation: Plan Assessment: 73 year old male admitted for stroke-like symptoms with negative subsequent imaging for a CVA. Possible TIA. Additional imaging for concern of a left vertebral artery dissection. Cardiology asked to evaluate patient due to chest pain associated with tachycardia. Plan: 1. TIA 2. Occlusion of left vertebral artery -Negative CT and MRI imaging for an acute CVA. patient reports complete resolution of symptoms. Imaging did note dominant patent right vertebral artery with a diminutive left vertebral artery. Trace flow vs multifocal occlusion and unable to exclude of any possible dissection. -Continued management per primary team and Neuro -Continue on Xarelto and ASA 81mg. Per recommendation of neuro, would add high intensity statin therapy. Cardiology is in agreement. Agree with adding Atorvastatin 40mg daily. 3. Elevated troponin: -mild elevation of troponin with flat trend. No acute EKG changes to suggest acute ischemic event. -patient demonstrating tachycardia with multiple episodes of what appears to be SVT on telemetry. -Will obtain echocardiogram to assess overall structure and function as well as for any wall motion abnormality -Obtain TSH -Will discuss possible addition of beta shawna therapy to regimen with Dr. Graves 4.Tachycardia 5. Atrial fibrillation -Prior history of A-fib, none noted on telemetry reviewed. History of 2 prior ablations. -Patient remains tachycardiac this morning with burst of what appears to be SVT rates as high as 160bpm. -Obtain echocardiogram to assess overall structure and function as well as for any wall motion abnormality -Obtain TSH -Will discuss possible addition of beta shawna therapy to regimen with Dr. Graves -Continue Xarelto at this time. Case has been discussed with Dr. Graves. Further recommendations regarding plan of care as per his assessment. I spent a total of 40 minutes on the date of service in preparation, delivery, documentation of the care provided to the patient excluding any time spent in the performance of separately billed services. ELOY Petersen [facility] Cardiology [facility] Supervising Physician Co-Signing Physician Notes Attending attestation: Case reviewed with the advanced practitioner. I have personally performed a history and physical examination on the patient. I have reviewed the advanced practitioner's documentation on the date of service referenced in note, and I agree with, and take responsibility for the plan of care. Subjective: Patient presented with transient neurologic symptoms that have since resolved. Also transient chest discomfort, resolved. Mild troponin elevation noted, flat trend. EKG without ischemic changes. Exam: Cardiovascular: 2/6 systolic murmur heard best at left axilla, no edema Pulmonary: Diffuse crackles consistent with his history of interstitial lung disease Neurologic: No focal deficits Data: MRI of the brain performed today revealed no acute intracranial abnormality Impression/ Plan: TIA Recently diagnosed paroxysmal atrial fibrillation, with previous tricuspid isthmus ablation for right-sided atrial flutter, 2017, pulmonary vein isolation for atrial fibrillation, 2017 Progressive muscle weakness with suspected underlying neuromuscular disorder, not yet defined, followed by neurology -Since the patient's TAVR in April, he had undergone a Zio patch and follow-up with transient left bundle branch block. A second Zio patch had been performed in August, as recommended by electrophysiology at [facility] and in addition to 62 episodes of sustained and nonsustained atrial tachycardia the longest of which was 1 minute and 22 seconds in duration he was found to have a 13-minute and 41-second episode of atrial fibrillation with average rate of 154 bpm. Anticoagulation had therefore been recommended initially with Eliquis, but due to formulary restrictions and subsequent cost concerns, and he was transitioned to Xarelto which he states he has been taking. Patient had preferred treatment with Eliquis and had recently agrees a question of whether or not lower extremity edema that he had been experiencing was related to the Xarelto. He has now presented in sinus rhythm with noted brief episodes of SVT and frequent premature atrial contractions on telemetry, no definite recurrent atrial fibrillation episodes, but certainly given his history, atrial fibrillation must be felt to be a potential culprit. He has had this episode despite not missing any doses of Xarelto and being on aspirin 81 mg daily. Will look into the cost feasibility of transitioning him to Eliquis now that he has had a neurologic episode while on Xarelto. 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 Agree with addition of atorvastatin. Echocardiogram revealed stable velocities across the TAVR prosthesis. He had previously been noted to have at least moderate deon-prosthetic aortic regurgitation, not appreciated on the present study but is difficult to distinguish the turbulent mitral inflow on color Doppler versus aortic regurgitation and therefore the degree of aortic regurgitation may be underestimated on the study performed today. Keep in hospital for observation for now. Will reassess tomorrow. I spent a total of 30 minutes coordinating, documenting, and providing care for this patient excluding time spent in the performance of separately billed services or time spent by another provider. Mike Graves, History of Present Illness Reason for Consultation: Chest pain Requesting Physician: Frannie Bravo Attending Physician: Jeovanny Scott MD History of Present Illness HPI: patient is a 73 year-old male that presented to the ED with complaints of a left-sided headache and left-sided chest pain. patient reports that he woke yesterday feeling his usual state of health. As the day progressed he developed a dull left-sided headache, and difficulty with both word finding and notable slurred speech. The entire episode had only lasted a few hours and resolved; however, after he had noted some left sided sharp chest discomfort associated wi th his heart racing. Denies any other associated symptoms. No aggravating or alleviating factor. CT head negative, CTA had made suggestion of a possible vertebral artery dissection, further imaging with neck CTA was performed demonstrating trace flow within the left vertebral artery, underlying dissection could not be excluded. Past Medical History: 1.H/o severe aortic stenosis status post TAVR (# 34mm Medtronic Evolut FX Aortic Valve), 05/03/2023 1.Postop complicated by left bundle branch block which resolved on its own. No permanent pacemaker placed. 2.History of atrial flutter status post tricuspid isthmus ablation, 2013 3.Symptomatic atrial fibrillation status post PVI, 05/2017 4.Mild nonobstructive CAD-- 40% pLAD stenosis and 40% RCA per pre TAVR cath 02/2023 5.Hodgkin's lymphoma for which he was treated with splenectomy and radiation therapy at the age of 27 6.Enlarged aortic root, 4.1 cm 7.Severe MR confirmed by HANNAH 02/2023 8.Interstitial lung disease 9.Positive NEREYDA 10.JULIUS, on CPAP 11.Esophageal dysmotility 12.Hypothyroidism 13.Prediabetes Allergies Allergy/AdvReac Type Severity Reaction Status Date / Time No Known Allergies Allergy Verified 02/20/23 08:47 Home Medications Medication Instructions Recorded Confirmed Type aspirin 81 mg tablet,delayed 81 mg PO QAM 11/16/18 10/08/23 History release levothyroxine 75 mcg tablet 75 mcg PO QAM 11/16/18 10/08/23 History cholecalciferol (vitamin D3) 25 1,000 unit PO QAM 05/07/19 10/08/23 History mcg (1,000 unit) capsule (Vitamin D3) cyanocobalamin (vitamin B-12) 1,000 mcg PO QAM 05/07/19 10/08/23 History 1,000 mcg tablet (Vitamin B-12) rivaroxaban 20 mg tablet (Xarelto) 20 mg PO QPM 10/08/23 10/08/23 History Patient History Medical History (Updated 10/09/23 @ 12:03 by ELOY Petersen) Low blood pressure Arthritis Tachycardia Interstitial lung disease no inhaler Hypothyroidism Hodgkin disease diagnosed at age 27--had radiation and spleenectomy Sleep apnea cpap History of atrial fibrillation follows with Dr. Graves Surgical History History of esophagogastroduodenoscopy (EGD) History of tooth extraction History of left hip replacement History of anesthesia reaction woke up once during a colonoscopy History of colonoscopy History of lymph node biopsy malignant--hodgkin History of splenectomy History of cardiac cath 2015 no stents History of cardioversion History of cardiac radiofrequency ablation x2-- "treated for A-fib" Family History Other No family history of adverse response to anesthesia Social History Smoking Status: Former smoker Tobacco Type: Cigarettes Second Hand Exposure: No; Do You Dip or Chew Tobacco: No; Hx Alcohol Use: No Hx Substance Use: No Preferred Language: Ukrainian Communication Ability: Effective White Sugar Supervisor Required: No Beliefs That Will Affect Care: None Current Living Situation: Spouse Other Information That Helps Us Care for You: No Feels Safe at Home: Yes Safety Concerns: Feels Safe At This Time Assistive Devices: CPAP, Raised Toilet Seat and Walker Review of Systems Review of Systems: All systems reviewed & are unremarkable except as noted in HPI & below Physical Exam Constitutional: + thin and + cachectic; no acute distres s and not ill appearing Neck: normal visual inspection and trachea midline Respiratory: normal respiratory effort, lungs clear to auscultation Cardiovascular: Rate/Rhythm: regular rate, regular rhythm and + tachycardic (burst of SVT rates to 160bpm ) Heart Sounds: normal S1 and normal S2 Vessels: no JVD Skin: no rashes, warm and dry Psychiatric: A+Ox3, euthymic affect Results & Data Vital Signs (Past 12 Hours) Vital Signs Temp Pulse Resp BP Pulse Ox O2 Del Method 10/09/23 07:57 Room Air 10/09/23 02:40 36.6 C 94 H 16 123/71 90 Room Air 10/08/23 22:59 36.6 C 103 H 18 148/75 H 89 L Room Air
[2023-10-09 09:02] LABS: Estimated Average Glucose 123 mg/dl; Hemoglobin A1C 5.9 % (4.5-5.6)
--- NOTE | 2023-10-09 09:09 | Neurology Consultation ---
Date of Consultation October 09, 2023 Assessment & Plan (1) Dysarthria: History of Present Illness Attending Physician: Jeovanny Scott MD History of Present Illness 73 yo male with brief speech change and now resolved. CTA finding of incidental left vert stenosis. want neurology opinion. pt with elevated troponin. mri brain negative for stroke. this morning doing well. no symptoms. admission HPI: This is a 73-year-old male who has a significant past medical history of CAD, PAF, history of PSVT, history of TAVR, mitral valve stenosis, Raynaud's, myositis, interstitial lung disease, JULIUS, hypothyroidism, senile osteoporosis and history of Hodgkin's lymphoma who presents to ED after experiencing episodes of chest pain yesterday as well as word finding difficulty/slurred speech for 3 to 5 minutes yesterday. is at bedside. Yesterday he experienced an episode prior to make dinner for approximately 3-5 minutes where he couldn't form a sentence and had word finding difficulty. He felt frustrated he couldn't speak. denies noticing facial droop or drooling. Pt felt dizzy during the event as well as off balance. He had a left sided headed. He denies any unilateral weakness. His sx resolved spontaneously and he not recurred. He also reports having one episode of Left sided chest pain. It happened early this afternoon and radiated to L shoulder. He described it as moderate. It lasted for a few hours and it has relieved mostly. It felt like a pressure, "someone pounded me." He has never experienced this before. He is fairly active at baseline. He walks the dog. He denies seeing chiropractor but does his own neck exercises. He usually does them in the morning. It involves stretching and isometrics. He denies feeling anything out of the ordinary during that time. He did feel his heart palpating with the chest pain. He denies URI sx, cough, f/c/s, syncope, n/v/d. He denies hx of bowel or bladder issues. He has been on xarelto for 1 week. His outpatient records were reviewed. He follows with cardiology at [facility]. He underwent TAVR in 05/03/2023. Since then he has been undergoing cardiac rehab. During cardiac rehab his heart rate would spike to 1 60-1 70 and he would feel lightheaded with an odd sensation in his chest. This was felt to be likely SVT. He also recently had a Zio patch which revealed A-fib. He initially was started on Eliquis but due to cost was converted over to Xarelto. Allergies Allergy/AdvReac Type Severity Reaction Status Date / Time No Known Allergies Allergy Verified 02/20/23 08:47 Home Medications Medication Instructions Recorded Confirmed Type aspirin 81 mg tablet,delayed 81 mg PO QAM 11/16/18 10/08/23 History release levothyroxine 75 mcg tablet 75 mcg PO QAM 11/16/18 10/08/23 History cholecalciferol (vitamin D3) 25 1,000 unit PO QAM 05/07/19 10/08/23 History mcg (1,000 unit) capsule (Vitamin D3) cyanocobalamin (vitamin B-12) 1,000 mcg PO QAM 05/07/19 10/08/23 History 1,000 mcg tablet (Vitamin B-12) rivaroxaban 20 mg tablet (Xarelto) 20 mg PO QPM 10/08/23 10/08/23 History Patient History Medical History Low blood pressure Arthritis Tachycardia Interstitial lung disease no inhaler Hypothyroidism Hodgkin disease diagnosed at age 27--had radiation and spleenectomy Sleep apnea cpap History of atrial fibrillation follows with Dr. Graves Surgical History History of esophagogastroduodenoscopy (EGD) History of tooth extraction History of left hip replacement History of anesthesia reaction woke up once during a colonoscopy History of colonoscopy History of lymph node biopsy malignant--hodgkin History of splenectomy History of cardiac cath 2016 no stents History of cardioversion History of cardiac radiofrequency ablation x2--2013/2016 "treated for A-fib" Family History Other No family history of adverse response to anesthesia Social History Smoking Status: Former smoker Tobacco Type: Cigarettes Second Hand Exposure: No; Do You Dip or Chew Tobacco: No; Hx Alcohol Use: No Hx Substance Use: No Preferred Language: Croatian Communication Ability: Effective Wire Repairer Required: No Beliefs That Will Affect Care: None Current Living Situation: Spouse Other Information That Helps Us Care for You: No Feels Safe at Home: Yes Safety Concerns: Feels Safe At This Time Assistive Devices: Glasses Exam (Neuro) Physical Exam: HEENT: normocephalic Neuro: Mental: AOx4, fluent speech, normal comprehension, no apraxia, no L/R confusion, no neglect CN: PERRL, Full EOM, symmetric face, intact sensation t/o face, midline T/U/P, Motor: No abnormal movements, normal tone and bulk, 5/5 t/o bilaterally except head drop (neck extensor weakness from prior old myositis). Sens: intact to touch b/l grossly Coord: intact FNT b/l DTR: 2+ sym b/l Gait: intact grossly Impression: 73 yo male with resolved speech change and incidental finding of left vertebral artery stenosis. I do not feel it is dissection. MRI brain negative. pt with elevated troponin and being w/u for [place] in setting of recent dx of atrial fib and on xarelto. Recommendations: no further work up needed from neurology. continue cardiac work up. ok to continue ASA and xarelto call again if new question. Chart reviewed I have spent more than 50% educating patient about potential diagnosis and neurological evaluation and coordinating care with patient's treatment team. Total time spent (including chart review and coordination of care): 60 min (this includes chart review). Results & Data Vital Signs (Past 12 Hours) Vital Signs Temp Pulse Resp BP Pulse Ox O2 Del Method 10/09/23 08:08 36.7 C 98 H 18 135/74 91 Room Air 10/09/23 07:57 Room Air 10/09/23 02:40 36.6 C 94 H 16 123/71 90 Room Air 10/08/23 22:59 36.6 C 103 H 18 148/75 H 89 L Room Air PG Care Time/CCT Total # of Minutes Spent Total Time Spent with Patient: Total time spent is greater than 50% in coordination of care (as documented) at patient's floor/unit and/or counseling patient: Coding Level of Care Code 71856 IN/OBS CONSULT LVL 4,60M Diagnoses Dysarthria R47.1
--- NOTE | 2023-10-09 09:50 | Neurology Consultation ---
Date of Consultation October 09, 2023 Assessment & Plan (1) TIA (transient ischemic attack): -Suspect TIA with word-finding difficulty -Given hx of TAVR and associated chest pain, suspect cardioembolic etiology most likely -Echo pending -Continue Xarelto + ASA -Agree with statin, can use Atorvastatin 20mg given LDL of 71 -Please refer to outpatient Neurology for 4-6wk follow-up -defer work-up of CP to hospitalist team -From neuro perspective, OK to discharge once Echo resulted assuming no unepected findings (2) Occlusion of left vertebral artery: Chronic, evident on MRI C spine from 10/2021 Telehealth Consultation Telehealth Information Telehealth Information: I performed this visit using a real-time telehealth connection between my location and the patients location ([facility]). After connecting through interactive tele-video, patient was identified by name and date of and/or wristband check.Patient (or authorized healthcare chemical sales representative) was informed that this was a telemedicine visit and it was being conducted confidentially over secure lines. My office door was closed and no one else was present in the room with me.Patient (or authorized healthcare chemical sales representative) provided consent to proceed with the visit, expressed an understanding of privacy and security of the telemedicine visit, and gave permission to have a hospital chemical sales representative in the room in order to assist with the visit and to conduct portions of the visit, as needed. I informed the patient (or authorized healthcare chemical sales representative) that I reviewed their record and presented the opportunity for them to ask any questions regarding the visit today. The patient agreed to participate. History of Present Illness Reason for Consultation: Word finding difficulty Attending Physician: Jeovanny Scott MD History of Present Illness 73 y/o M with PMHx of TAVR, JULIUS, CAD, ILD presents to hospital after having a spell of word finding difficulty with associated chest pain. He is on ASA + Xa relto BU[place]AR[place]. States symptoms lasted 2-3 minutes right around noon yesterday,, couldn't come up with words or make sentences, also he felt wobbly on his feet and lightheaded. A few minutes afterwards he had some chest discomfort with pain into left arm lasting most of the day. He felt a headache yesterday morning when he work-up. He is not a headache person, rarely gets SALDA[place]A. No headache now. He states in May he had an episode of speech changes lasting a few minutes, no CP; this occurred several weeks post TAVR. He did not seek medical attention at that time. Allergies Allergy/AdvReac Type Severity Reaction Status Date / Time No Known Allergies Allergy Verified 02/20/23 08:47 Home Medications Medication Instructions Recorded Confirmed Type aspirin 81 mg tablet,delayed 81 mg PO QAM 11/16/18 10/08/23 History release levothyroxine 75 mcg tablet 75 mcg PO QAM 11/16/18 10/08/23 History cholecalciferol (vitamin D3) 25 1,000 unit PO QAM 05/07/19 10/08/23 History mcg (1,000 unit) capsule (Vitamin D3) cyanocobalamin (vitamin B-12) 1,000 mcg PO QAM 05/07/19 10/08/23 History 1,000 mcg tablet (Vitamin B-12) rivaroxaban 20 mg tablet (Xarelto) 20 mg PO QPM 10/08/23 10/08/23 History Patient History Medical History Low blood pressure Arthritis Tachycardia Interstitial lung disease no inhaler Hypothyroidism Hodgkin disease diagnosed at age 27--had radiation and spleenectomy Sleep apnea cpap History of atrial fibrillation follows with Dr. Graves Surgical History History of esophagogastroduodenoscopy (EGD) History of tooth extraction History of left hip replacement History of anesthesia reaction woke up once during a colonoscopy History of colonoscopy History of lymph node biopsy malignant--hodgkin History of splenectomy History of cardiac cath 2015 no stents History of cardioversion History of cardiac radiofrequency ablation x2-- "treated for A-fib" Family History Other No family history of adverse response to anesthesia Social History Smoking Status: Former smoker Tobacco Type: Cigarettes Second Hand Exposure: No; Do You Dip or Chew Tobacco: No; Hx Alcohol Use: No Hx Substance Use: No Preferred Language: Moroccan Communication Ability: Effective Chairman President And Chief Executive Officer Required: No Beliefs That Will Affect Care: None Current Living Situation: Spouse Other Information That Helps Us Care for You: No Feels Safe at Home: Yes Safety Concerns: Feels Safe At This Time Assistive Devices: Glasses Review of Systems Admits to mild CP Occasional mild SOB associated with tachycardia Numbness in left foot, chronic denies changes in vision, no speech issues at present Physical Exam NIHSS 0 Mental Status: AOx3, no aphasia, no dysarthria, normal recent and remote memory, normal attention CN: EOMI, face symmetric, hearing intact, tongue midline Motor: antigravity power present in all 4, no drift Sensory: intact to light touch Coordination: normal FNF Gait: deferred Reflexes: cannot be assessed via telemedicine Results & Data Vital Signs (Past 12 Hours) Vital Signs Temp Pulse Resp BP Pulse Ox O2 Del Method 10/09/23 08:08 36.7 C 98 H 18 135/74 91 Room Air 10/09/23 07:57 Room Air 10/09/23 02:40 36.6 C 94 H 16 123/71 90 Room Air 10/08/23 22:59 36.6 C 103 H 18 148/75 H 89 L Room Air Laboratory Results LDL 71 Diagnostic Findings Personally reviewed MRI C spine from 10/2021 in [facility] system -- this shows loss of flow void in the left vertbral artery CTA with left VA occlusion from origin with brief cervical reconstitution and likely retrograde flow in v4 segment; stanley taken in context of prior imaging, this is a chronic occlusion of the left VA
--- NOTE | 2023-10-09 14:26 | Hospitalist Progress Note ---
Date of Service October 09, 2023 Assessment & Plan (1) Dysarthria: (2) Chest pain: (3) Elevated troponin: (4) Atrial fibrillation: Plan Patient is a 73-year-old male who has a significant past medical history of CAD, PAF, history of PSVT, history of TAVR, mitral valve stenosis, Raynaud's, myositis, interstitial lung disease, JULIUS, hypothyroidism, senile osteoporosis and history of Hodgkin's lymphoma who presents to ED after experiencing episodes of chest pain yesterday as well as word finding difficulty/slurred speech for 3 to 5 minutes yesterday. Transient ischemic attack Presented with transient Dysarthria Given history of TAVR, associated chest pain likely cardioembolic Occlusion of left vertebral artery--chronic --MRI Brain:No acute intracranial abnormality. --Head CTA:No significant stenosis, occlusion, or aneurysm within the [place]. The distal left vertebral artery is only faintly opacified at the level the C1. This is only partially imaged on this study but is suspicious for a left vertebral artery dissection. This is better appreciated on the same day neck CTA. --Neck CTA:Moderate atherosclerotic plaque within the proximal bilateral internal carotid arteries. 30% stenosis of the proximal right internal carotid artery. No stenosis of the cervical left internal carotid artery. Dominant, patent right vertebral artery. Diminutive left vertebral artery. Trace flow versus multifocal occlusion with distal reconstitution of the left vertebral artery. These findings are age indeterminate. Trace flow within the left vertebral artery is noted. This finding is age indeterminate. Underlying dissection cannot be excluded. Findings discussed with Dr. Hinson at time of addendum. -- Echo pending --Lipid panel within normal limits. LDL 71 --HbA1c 5.9 Continue aspirin, Xarelto Started on Lipitor 20 mg daily Will need Zio patch as outpatient Appreciate neurology input Needs follow-up with neurology on discharge Prediabetes HbA1c 5.9 Left sided chest pain CAD H/O PAF, hx of PSVT S/P TAVR 04/2023 Mitral Valve Stenosis Significant cardiac hx of nonobstructive CAD, symptomatic atrial fibrillation status post PVI 05/2017, atrial flutter status post tricuspid isthmus ablation 2013, history of TAVR April 2023, severe MR Mild troponin elevation likely demand ischemia secondary to tachycardia Symptomatic PACs Normal TSH Echo pending May benefit from starting on beta-shawna On Xarelto for anticoagulation Cardiology on board JULIUS on CPAP cpap at HS Hypothyroidism chronic, stable continue levothyroxine DVT Px: Xarelto Code Status Full Code Admission and Anticipated Discharge Date Admission Date: October 08, 2023 Subjective Patient is seen and examined at bedside Dysarthria resolved Chest discomfort much improved PACs on monitor Currently denies any nausea, vomiting, dyspnea, dizziness Family at bedside No other complaints Review of Systems Review of Systems: All systems reviewed & are unremarkable except as noted in Subjective Physical Exam Physical Exam: Physical Exam: Vitals signs as noted above General Appearance:Thin, Frail, no apparent distress Head: normocephalic, Atraumatic Eyes: normal inspection, EOMI Neck: supple, Trachea midline Respiratory/Chest: Normal breath sounds, CTA, No accessory muscle use Cardiovascular: S1, S2, No murmur Abdomen/GI:Soft, Non tender, Bowel sounds present Extremities/Musculoskeletal:normal inspection, no edema Neurologic/Psych:AAOX3, grossly no focal neurological deficits Skin: normal color, warm Results & Data Results & Data Vital Signs (Past 12 Hours) Vital Signs Temp Pulse Pulse Resp BP Pulse Ox O2 Del Method 10/09/23 13:16 93 H 10/09/23 11:48 36.9 C 92 H 18 135/60 91 Room Air 10/09/23 08:08 36.7 C 98 H 18 135/74 91 Room Air 10/09/23 07:57 Room Air 10/09/23 02:40 36.6 C 94 H 16 123/71 90 Room Air Laboratory Results Short CBC 10/09/23 Range/Units 06:26 WBC 9.20 (4.8-10.8) K/ul Hgb 12.3 L (14.0-18.0) g/dl Hct 37.4 L (42.0-52.0) % Plt Count 245 (130-400) K/uL BMP 10/09/23 06:26 Sodium 140 Potassium 4.1 Chloride 100 Carbon Dioxide 35 H BUN 13 Creatinine 0.59 L Glucose 93 Calcium 9.2
[2023-10-10 06:56] LABS: Basophils # (auto) 0.08 K/uL (0.00-0.20); Eosinophils # (auto) 0.29 K/uL (0.00-0.50); Eosinophils % (auto) 3.5 %; Hematocrit (blood only) 38.3 % (42.0-52.0); Hemoglobin 12.9 g/dl (14.0-18.0); Immature Granulocytes # (auto) 0.02 K/uL (0.01-0.20); Immature Granulocytes % (auto) 0.2 %; Lymphocytes # (auto) 1.27 K/uL (1.20-3.40); Lymphocytes % (auto) 15.3 %; Mean Corpuscular Hemoglobin 34.4 pg (25.0-34.0); Mean Corpuscular Hgb Conc 33.7 g/dL (32.0-36.0); Mean Corpuscular Volume 102.1 fL (80.0-100.0); Mean Platelet Volume 12.1 fL (9.4-12.4); Monocytes # (auto) 1.35 K/uL (0.11-0.59); Monocytes % (auto) 16.3 %; Neutrophils # (auto) 5.29 K/uL (1.40-6.50); Neutrophils % (auto) 63.7 %; Platelet Count 245 K/uL (130-400); RDW Coefficient of Variation 16.2 % (11.5-14.5); RDW Standard Deviation 61.4 fL (36.4-46.3); Red Blood Count 3.75 M/uL (4.70-6.10)
[2023-10-10 07:31] LABS: BUN Creatinine Ratio 21.1 (10-20); Calcium 9.4 mg/dl (8.6-10.3); Creatinine Clr Calc Pharmacy 82.9 ml/min; Est GFR (African American) 107.1 ml/min; Est GFR (Non-African American) 92.4 ml/min; Magnesium 1.8 mg/dl (1.7-2.4); Potassium 3.8 mmol/L (3.5-5.1)
[2023-10-10] MEDS: ATORVASTATIN 20 MG TAB PO SCH (08:17)
[2023-10-10] MEDS: METOPROLOL SUCC 25MG EXT REL TAB PO SCH (10:09)
--- NOTE | 2023-10-10 10:37 | Pharmacy Report ---
- Date of Service October 10, 2023 - Pharmacy CVA/TIA Medication Review Medications to Prevent Stroke handout has been added to the patients discharge packet. Antiplatelet(s) * aspirin 81 mg daily Cholesterol * neurology recommends continuation of atorvastatin 20 mg daily - high intensity statin deferred due to LDL of 71 mg/dL DVT Prophylaxis * see below Therapeutic Anticoagulation * xarelto 20 mg daily Type 2 Diabetes * Patient does not have T2DM
--- NOTE | 2023-10-10 16:33 | Hospitalist Progress Note ---
Date of Service October 10, 2023 Assessment & Plan (1) Dysarthria: (2) Chest pain: (3) Elevated troponin: (4) Atrial fibrillation: Plan Patient is a 73-year-old male who has a significant past medical history of CAD, PAF, history of PSVT, history of TAVR, mitral valve stenosis, Raynaud's, myositis, interstitial lung disease, JULIUS, hypothyroidism, senile osteoporosis and history of Hodgkin's lymphoma who presents to ED after experiencing episodes of chest pain yesterday as well as word finding difficulty/slurred speech for 3 to 5 minutes yesterday. Transient ischemic attack Presented with transient Dysarthria Given history of TAVR, associated chest pain likely cardioembolic Occlusion of left vertebral artery--chronic No significant stroke on imaging studies Echo has been remarkable for the condition but no atrial fibrillation and/or thrombus TIA symptoms have resolved --Lipid panel within normal limits. LDL 71 --HbA1c 5.9 Appreciate neurology input and recommendation Continue aspirin and Xarelto Started on Lipitor 20 mg daily Will need Zio patch as outpatient Needs follow-up with neurology on discharge Likely discharge tomorrow Tachycardia History of atrial fibrillation but no evidence of A-fib right now Has been started on a small dose of beta-shawna Tachycardia has been improving Appreciate cardiology input and recommendation Likely discharge tomorrow Imaging studies --MRI Brain:No acute intracranial abnormality. --Head CTA:No significant stenosis, occlusion, or aneurysm within the [place]. The distal left vertebral artery is only faintly opacified at the level the C1. This is only partially imaged on this study but is suspicious for a left vertebral artery dissection. This is better appreciated on the same day neck CTA. --Neck CTA:Moderate atherosclerotic plaque within the proximal bilateral internal carotid arteries. 30% stenosis of the proximal right internal carotid artery. No stenosis of the cervical left internal carotid artery. Dominant, patent right vertebral artery. Diminutive left vertebral artery. Trace flow versus multifocal occlusion with distal reconstitution of the left vertebral artery. These findings are age indeterminate. Trace flow within the left vertebral artery is noted. This finding is age indeterminate. Underlying dissection cannot be excluded. Findings discussed with Dr. Hinson at time of addendum. -- Echo-mild concentric LVH, systolic function is normal with EF 55 to 60%, RV mildly dilated, left atrium is severely dilated, right atrium is moderately dilated, status post TAVR and there is no significant prosthetic regurgitation, severe mitral annular calcification, no mitral valve stenosis but there is moderate tricuspid regurgitation, severe pulmonary hypertension is present with estimated pressure of 16 mmHg and grade 2 diastolic dysfunction Prediabetes HbA1c 5.9 Left sided chest pain CAD H/O PAF, hx of PSVT S/P TAVR 04/2023 Mitral Valve Stenosis Significant cardiac hx of nonobstructive CAD, symptomatic atrial fibrillation status post PVI 05/2017, atrial flutter status post tricuspid isthmus ablation 2013, history of TAVR April 2023, severe MR Mild troponin elevation likely demand ischemia secondary to tachycardia Symptomatic PACs Normal TSH JULIUS on CPAP cpap at HS Hypothyroidism chronic, stable continue levothyroxine DVT Px: Xarelto Code Status Full Code Admission and Anticipated Discharge Date Admission Date: October 08, 2023 Subjective 10/10/2023 The patient was seen and examined in telemetry unit in presence of the He has been feeling much better Has had occasional palpitation last night Tachycardia has been improving and remained around 103 Denies any cardiac symptoms Review of Systems Review of Systems: All systems reviewed and are unremarkable except as noted below Physical Exam Physical Exam: Lying in bed without any acute distress Constitutional: average body habitus; not ill appearing ENMT: external ear and nose normal, oropharynx normal Neck: trachea midline, no thyromegaly Respiratory: no respiratory distress Auscultation: lungs clear to auscultation bilaterally Cardiovascular: Rate/Rhythm: regular rate, regular rhythm and + tachycardic Heart Sounds: normal S1, normal S2 and + murmur Extremities: no edema Gastrointestinal (Abdomen): Inspection/Auscultation: normal bowel sounds; abdomen not distended Percussion/Palpation: abdomen soft; abdomen nontender Musculoskeletal: No acute arthritis involving any of the joints Neurologic: normal touch/pain/proprioception and moves all extremities; no focal motor deficits Psychiatric: A+Ox3, euthymic affect Lymphatic: no cervical or axillary lymphadenopathy Results & Data Results & Data Vital Signs (Past 12 Hours) Vital Signs Temp Pulse Resp BP Pulse Ox O2 Del Method 10/10/23 11:50 36.4 C L 103 H 18 127/65 92 Room Air 10/10/23 10:09 107/63 10/10/23 07:57 37.0 C 99 H 18 138/78 90 Room Air Laboratory Results Short CBC 10/10/23 Range/Units 06:15 WBC 8.30 (4.8-10.8) K/ul Hgb 12.9 L (14.0-18.0) g/dl Hct 38.3 L (42.0-52.0) % Plt Count 245 (130-400) K/uL [facility] 10/10/23 06:15 Sodium 139 Potassium 3.8 Chloride 98 Carbon Dioxide 36 H BUN 15 Creatinine 0.71 Glucose 99 Calcium 9.4 Medications Administered Current Inpatient Medications Acetaminophen (Acetaminophen 325 Mg Tab) 650 mg PO Q4H PRN PRN Reason: Pain or Fever Stop: 11/07/23 20:55 Al Hydrox/Mg Hydrox/Simethicone (Aluminum/Magnesium Susp 30 Ml Udc) 15 ml PO Q4H PRN PRN Reason: Dyspepsia Stop: 11/07/23 20:55 Aspirin (Aspirin 81 Mg Ectab) 81 mg PO [facility] Stop: 11/08/23 08:59 Last Admin: 10/10/23 08:18 Dose: 81 mg Atorvastatin Calcium (Atorvastatin 20 Mg Tab) 20 mg PO [facility] Stop: 11/09/23 08:59 Last Admin: 10/10/23 08:17 Dose: 20 mg Cyanocobalamin (Cyanocobalamin (B-12) 500 Mcg Tablet) 1,000 mcg PO [facility] Stop: 11/08/23 08:59 Last Admin: 10/10/23 08:18 Dose: 1,000 mcg Levothyroxine Sodium (Levothyroxine Sodium 75 Mcg Tablet) [facility]: 11/08/23 06:29 Last Admin: 10/10/23 06:19 Dose: 75 mcg Metoprolol Succinate (Metoprolol Succ 25mg Ext Rel Tab) 12.5 mg PO [facility] Stop: 11/09/23 08:59 Last Admin: 10/10/23 10:09 Dose: 12.5 mg Ondansetron HCl (Ondansetron Inj 2 Mg/Ml 2 Ml Vial) 4 mg IV Q6H PRN PRN Reason: Nausea Stop: 11/07/23 20:55 Polyethylene Glycol (Polyethylene (Miralax) 17 Gm Pack) 17 gm PO DAILY PRN PRN Reason: Constipation Stop: 11/07/23 20:55 Rivaroxaban (Rivaroxaban 20 Mg Tab) 20 mg PO QDD [facility] Stop: 11/07/23 20:59 Last Admin: 10/09/23 17:15 Dose: 20 mg Vitamin D (Cholecalciferol 25 Mcg (1000 Units) Tab) 25 mcg PO QAM [facility] Stop: 11/08/23 08:59 Last Admin: 10/10/23 08:17 Dose: 25 mcg
--- NOTE | 2023-10-10 17:14 | Cardiology Progress Note ---
Date of Service October 10, 2023 Assessment & Plan (1) TIA (transient ischemic attack): (2) Occlusion of left vertebral artery: (3) Elevated troponin: (4) Tachycardia: (5) Atrial fibrillation: Plan Assessment: 73 year old male admitted for stroke-like symptoms with negative chauhan bsequent imaging for a CVA. Possible TIA. Additional imaging for concern of a left vertebral artery dissection. Cardiology asked to evaluate patient due to chest pain associated with tachycardia. Plan: 1. TIA 2. Occlusion of left vertebral artery -Negative CT and MRI imaging for an acute CVA. patient reports complete resolution of symptoms. Imaging did note dominant patent right vertebral artery with a diminutive left vertebral artery. Trace flow vs multifocal occlusion and unable to exclude of any possible dissection. -Continued management per primary team and Neuro -Continue on Xarelto and ASA 81mg. Per recommendation of neuro, would add high intensity statin therapy. Cardiology is in agreement. Agree with adding Atorvastatin 40mg daily. 3. Elevated troponin: -mild elevation of troponin with flat trend. No acute EKG changes to suggest acute ischemic event. -patient continues to demonstrate tachycardia with multiple episodes of what appears to be SVT on telemetry. Will start Toprol xl 12.5mg PO QAM and assess response. -TSH normal -Echocardiogram demonstrates mild concentric LVH, LVEF 55-60% with no regional wall motion abnormality, right atrium mildly dilated, left atrium severely dilated. Status post TAVR no significant prosthetic regurg., normal gradiant for this type of valve. Severe mitral annular calcification with at least mild MR. moderate TR, severe Pulm HTN is present. 4.Tachycardia 5. Atrial fibrillation -Prior history of A-fib, none noted on telemetry reviewed. History of 2 prior ablations. -Patient remains with continued burst of tachycardia this morning. Start Toprol xl 12.5mg QAM -Continue Xarelto at this time. given the fact that patient has had a suggested TIA while compliant on Xarelto, may need to consider transitioning to Eliquis prior to discharge as the Xarelto may be considered failed therapy. Case has been discussed with Dr. Graves. Further recommendations regarding plan of care as per his assessment. I spent a total of 30 minutes on the date of service in preparation, delivery, documentation of the care provided to the patient excluding any time spent in the performance of separately billed services. ELOY Petersen [facility] Admission and Anticipated Discharge Date Admission Date: October 08, 2023 Supervising Physician Co-Signing Physician Notes Attending attestation: Case reviewed with the advanced practitioner. I have personally performed a history and physical examination on the patient. I have reviewed the advanced practitioner's documentation on the date of service referenced in note, and I agree with, and take responsibility for the plan of care. Patient feeling subjectively improved after starting metoprolol succinate. Telemetry reveals sinus rhythm at around 100 bpm, which is likely his baseline given his underlying interstitial lung disease. Continue metoprolol. Continue Xarelto for now. As an outpatient, will determine if his insurance would allow prior authorization for Eliquis as compared to Xarelto given his TIA event. I spent a total of 30 minutes coordinating, documenting, and providing care for this patient excluding time spent in the performance of separately billed services or time spent by another provider. Mike Graves DO Subjective 10/10/2023: Patient seen and examined today in follow up. He is resting comfortably in bed without complaints. he does however, continue to endorse palpitations which is also demonstrated on telemetry. Review of monitor shows SR with PVC and a multiple brief burst of SVT vs A-fib highest rate 160bpm. Labs, vitals, diagnostics, and documentation reviewed. Review of Systems Review of Systems: All systems reviewed & are unremarkable except as noted in HPI & below Physical Exam Constitutional: + thin and + cachectic; no acute distres s and not ill appearing Neck: normal visual inspection and trachea midline Respiratory: normal respiratory effort, lungs clear to auscultation Auscultation: + diminished lung sounds (bilateral bases); no crackles, no rales, no rhonchi and no wheezes Cardiovascular: Rate/Rhythm: regular rate, regular rhythm and + tachycardic (burst of SVT rates to 160bpm ) Heart Sounds: normal S1, normal S2 and + murmur (+2/6 systolic) Vessels: no JVD Skin: no rashes, warm and dry Psychiatric: A+Ox3, euthymic affect Results & Data Vital Signs (Past 12 Hours) Vital Signs Temp Pulse Resp BP Pulse Ox O2 Del Method 10/10/23 11:50 36.4 C L 103 H 18 127/65 92 Room Air 10/10/23 10:09 107/63 10/10/23 07:57 37.0 C 99 H 18 138/78 90 Room Air Laboratory Results CBC 10/10/23 Range/Units 06:15 WBC 8.30 (4.8-10.8) K/ul RBC 3.75 L (4.70-6.10) M/uL Hgb 12.9 L (14.0-18.0) g/dl Hct 38.3 L (42.0-52.0) % Plt Count 245 (130-400) K/uL Neut # (Auto) 5.29 (1.40-6.50) K/uL Lymph # (Auto) 1.27 (1.20-3.40) K/uL [place] # (Auto) 1.35 H (0.11-0.59) K/uL Eos # (Auto) 0.29 (0.00-0.50) K/uL Baso # (Auto) 0.08 (0.00-0.20) K/uL Comprehensive Metabolic Panel 10/10/23 Range/Units 06:15 Sodium 139 (136-145) mmol/L Potassium 3.8 (3.5-5.1) mmol/L Chloride 98 (98-107) mmol/L Carbon Dioxide 36 H (21-32) mmol/L BUN 15 (6-23) mg/dl Creatinine 0.71 (0.6-1.4) mg/dl Glucose 99 (70-99(Fasting)) mg/dl Calcium 9.4 (8.6-10.3) mg/dl Intake and Output 10/10/23 10/10/23 10/10/23 06:59 14:59 22:59 Intake Total 200 1850 800 / 800 Balance 200 1848 800 / 800 Intake: Oral 200 1850 800 / 800 Other: # Unmeasured Voids 3 Weight 64.2 kg Weight Measurement Method Built in [facility]
[2023-10-11 06:31] LABS: Basophils # (auto) 0.08 K/uL (0.00-0.20); Basophils % (auto) 0.8 %; Eosinophils % (auto) 3.8 %; Hematocrit (blood only) 37.4 % (42.0-52.0); Hemoglobin 12.7 g/dl (14.0-18.0); Immature Granulocytes # (auto) 0.03 K/uL (0.01-0.20); Immature Granulocytes % (auto) 0.3 %; Lymphocytes % (auto) 12.2 %; Mean Corpuscular Hemoglobin 34.2 pg (25.0-34.0); Mean Corpuscular Volume 100.8 fL (80.0-100.0); Mean Platelet Volume 11.5 fL (9.4-12.4); Monocytes # (auto) 1.91 K/uL (0.11-0.59); Monocytes % (auto) 17.9 %; Neutrophils # (auto) 6.93 K/uL (1.40-6.50); Platelet Count 236 K/uL (130-400); RDW Coefficient of Variation 15.9 % (11.5-14.5); RDW Standard Deviation 59.4 fL (36.4-46.3); Red Blood Count 3.71 M/uL (4.70-6.10); White Blood Count 10.65 K/ul (4.8-10.8)
[2023-10-11 06:49] LABS: Calcium 9.3 mg/dl (8.6-10.3); Creatinine Clr Calc Pharmacy 77.9 ml/min; Est GFR (African American) 105.9 ml/min; Est GFR (Non-African American) 91.4 ml/min; Magnesium 1.7 mg/dl (1.7-2.4); Phosphorus 3.7 mg/dl (2.5-4.9); Potassium 4.1 mmol/L (3.5-5.1)
[2023-10-11 11:00] VITALS: BP 117/66; PULSE 88; RESP 17; TEMP 97.5; O2SAT 95
--- NOTE | 2023-10-11 11:27 | Hospitalist Progress Note ---
Date of Service October 11, 2023 Assessment & Plan (1) Dysarthria: (2) Chest pain: (3) Elevated troponin: (4) Atrial fibrillation: Plan Patient is a 73-year-old male who has a significant past medical history of CAD, PAF, history of PSVT, history of TAVR, mitral valve stenosis, Raynaud's, myositis, interstitial lung disease, JULIUS, hypothyroidism, senile osteoporosis and history of Hodgkin's lymphoma who presents to ED after experiencing episodes of chest pain yesterday as well as word finding difficulty/slurred speech for 3 to 5 minutes yesterday. Transient ischemic attack Presented with transient Dysarthria Given history of TAVR, associated chest pain likely cardioembolic Occlusion of left vertebral artery--chronic No significant stroke on imaging studies Echo has been remarkable for the condition but no atrial fibrillation and/or thrombus TIA symptoms have resolved --Lipid panel within normal limits. LDL 71 --HbA1c 5.9 Appreciate neurology input and recommendation Continue aspirin and Xarelto Started on Lipitor 20 mg daily Will need Zio patch as outpatient Needs follow-up with neurology on discharge Remains stable medically and denies any significant symptoms Will be discharged home this afternoon Tachycardia History of atrial fibrillation but no evidence of A-fib right now Has been started on a small dose of beta-shawna Tachycardia has been improving Appreciate cardiology input and recommendation Heart rate is controlled with current medications without any cardiac symptoms Imaging studies --MRI Brain:No acute intracranial abnormality. --Head CTA:No significant stenosis, occlusion, or aneurysm within the [place]. The distal left vertebral artery is only faintly opacified at the level the C1. This is only partially imaged on this study but is suspicious for a left vertebral artery dissection. This is better appreciated on the same day neck CTA. --Neck CTA:Moderate atherosclerotic plaque within the proximal bilateral internal carotid arteries. 30% stenosis of the proximal right internal carotid artery. No stenosis of the cervical left internal carotid artery. Dominant, patent right vertebral artery. Diminutive left vertebral artery. Trace flow versus multifocal occlusion with distal reconstitution of the left vertebral artery. These findings are age indeterminate. Trace flow within the left vertebral artery is noted. This finding is age indeterminate. Underlying dissection cannot be excluded. Findings discussed with Dr. Hinson at time of addendum. -- Echo-mild concentric LVH, systolic function is normal with EF 55 to 60%, RV mildly dilated, left atrium is severely dilated, right atrium is moderately dilated, status post TAVR and there is no significant prosthetic regurgitation, severe mitral annular calcification, no mitral valve stenosis but there is m oderate tricuspid regurgitation, severe pulmonary hypertension is present with estimated pressure of 16 mmHg and grade 2 diastolic dysfunction Prediabetes HbA1c 5.9 Left sided chest pain CAD H/O PAF, hx of PSVT S/P TAVR 04/2023 Mitral Valve Stenosis Significant cardiac hx of nonobstructive CAD, symptomatic atrial fibrillation status post PVI 05/2017, atrial flutter status post tricuspid isthmus ablation 2013, history of TAVR April 2023, severe MR Mild troponin elevation likely demand ischemia secondary to tachycardia Symptomatic PACs Normal TSH Denies any more chest pain and/or palpitation JULIUS on CPAP cpap at HS Hypothyroidism chronic, stable continue levothyroxine DVT Px: Xarelto Code Status Full Code Admission and Anticipated Discharge Date Admission Date: October 08, 2023 Subjective 10/10/2023 The patient was seen and examined in telemetry unit in presence of the He has been feeling much better Has had occasional palpitation last night Tachycardia has been improving and remained around 103 Denies any cardiac symptoms 10/11/2023 The patient was seen and examined in telemetry unit He has been feeling much better and the tachycardia is resolved Denies any cardiac symptoms Has been ambulating without any difficulties Will be discharged home this afternoon Review of Systems Review of Systems: All systems reviewed and are unremarkable except as noted below Physical Exam Physical Exam: Lying in bed without any acute distress Constitutional: average body habitus; not ill appearing ENMT: external ear and nose normal, oropharynx normal Neck: trachea midline, no thyromegaly Respiratory: no respiratory distress Auscultation: lungs clear to auscultation bilaterally Cardiovascular: Rate/Rhythm: regular rate, regular rhythm and + tachycardic Heart Sounds: normal S1, normal S2 and + murmur Extremities: no edema Gastrointestinal (Abdomen): Inspection/Auscultation: normal bowel sounds; abdomen not distended Percussion/Palpation: abdomen soft; abdomen nontender Musculoskeletal: No acute arthritis involving any of the joints Neurologic: normal touch/pain/proprioception and moves all extremities; no focal motor deficits Psychiatric: A+Ox3, euthymic affect Lymphatic: no cervical or axillary lymphadenopathy Results & Data Results & Data Vital Signs (Past 12 Hours) Vital Signs Temp Pulse Resp BP Pulse Ox O2 Del Method 10/11/23 10:59 36.4 C L 88 17 117/66 95 Room Air 10/11/23 07:55 37.0 C 93 H 18 116/65 91 Room Air 10/11/23 03:14 36.6 C 99 H 16 114/71 90 Room Air Laboratory Results Short CBC 10/11/23 Range/Units 05:51 WBC 10.65 (4.8-10.8) K/ul Hgb 12.7 L (14.0-18.0) g/dl Hct 37.4 L (42.0-52.0) % Plt Count 236 (130-400) K/uL BMP 10/11/23 05:51 Sodium 138 Potassium 4.1 Chloride 98 Carbon Dioxide 36 H BUN 19 Creatinine 0.73 Glucose 95 Calcium 9.3 Medications Administered Current Inpatient Medications Acetaminophen (Acetaminophen 325 Mg Tab) 650 mg PO Q4H PRN PRN Reason: Pain or Fever Stop: 11/07/23 20:55 Al Hydrox/Mg Hydrox/Simethicone (Aluminum/Magnesium Susp 30 Ml Udc) 15 ml PO Q4H PRN PRN Reason: Dyspepsia Stop: 11/07/23 20:55 Aspirin (Aspirin 81 Mg Ectab) 81 mg PO [facility] Stop: 11/08/23 08:59 Last Admin: 10/11/23 09:07 Dose: 81 mg Atorvastatin Calcium (Atorvastatin 20 Mg Tab) 20 mg PO [facility] Stop: 11/09/23 08:59 Last Admin: 10/11/23 09:08 Dose: 20 mg Cyanocobalamin (Cyanocobalamin (B-12) 500 Mcg Tablet) 1,000 mcg PO [facility] Stop: 11/08/23 08:59 Last Admin: 10/11/23 09:07 Dose: 1,000 mcg Levothyroxine Sodium (Levothyroxine Sodium 75 Mcg Tablet) [facility]: 11/08/23 06:29 Last Admin: 10/11/23 05:56 Dose: 75 mcg Metoprolol Succinate (Metoprolol Succ 25mg Ext Rel Tab) 12.5 mg PO [facility] Stop: 11/09/23 08:59 Last Admin: 10/11/23 09:07 Dose: 12.5 mg Ondansetron HCl (Ondansetron Inj 2 Mg/Ml 2 Ml Vial) 4 mg IV Q6H PRN PRN Reason: Nausea Stop: 11/07/23 20:55 Polyethylene Glycol (Polyethylene (Miralax) 17 Gm Pack) 17 gm PO DAILY PRN PRN Reason: Constipation Stop: 11/07/23 20:55 Rivaroxaban (Rivaroxaban 20 Mg Tab) 20 mg PO QDD [facility] Stop: 11/07/23 20:59 Last Admin: 10/10/23 17:12 Dose: 20 mg Vitamin D (Cholecalciferol 25 Mcg (1000 Units) Tab) 25 mcg PO QAM [facility] Stop: 11/08/23 08:59 Last Admin: 10/11/23 09:07 Dose: 25 mcg
--- NOTE | 2023-10-11 14:01 | Cardiology Progress Note ---
Date of Service October 11, 2023 Assessment & Plan (1) TIA (transient ischemic attack): (2) Occlusion of left vertebral artery: (3) Elevated troponin: (4) Tachycardia: (5) Atrial fibrillation: Plan Assessment: 73 year old male admitted for stroke-like symptoms with negative chauhan bsequent imaging for a CVA. Possible TIA. Additional imaging for concern of a left vertebral artery dissection. Cardiology asked to evaluate patient due to chest pain associated with tachycardia. Plan: 1. TIA 2. Occlusion of left vertebral artery -Negative CT and MRI imaging for an acute CVA. patient reports complete resolution of symptoms. Imaging did note dominant patent right vertebral artery with a diminutive left vertebral artery. Trace flow vs multifocal occlusion and unable to exclude of any possible dissection. -Continued management per primary team and Neuro -Continue on Xarelto and ASA 81mg. Per recommendation of neuro, would add high intensity statin therapy. Cardiology is in agreement. Agree with adding Atorvastatin 40mg daily. 3. Elevated troponin: -mild elevation of troponin with flat trend. No acute EKG changes to suggest acute ischemic event. -patient continues to demonstrate tachycardia with multiple episodes of what appears to be SVT on telemetry. Will start Toprol xl 12.5mg PO QAM and assess response. -TSH normal -Echocardiogram demonstrates mild concentric LVH, LVEF 55-60% with no regional wall motion abnormality, right atrium mildly dilated, left atrium severely dilated. Status post TAVR no significant prosthetic regurg., normal gradiant for this type of valve. Severe mitral annular calcification with at least mild MR. moderate TR, severe Pulm HTN is present. 4.Tachycardia 5. Atrial fibrillation -Prior history of A-fib, with mutiple short burst less than 20 seconds noted on telemetry. -Patient's HR shows significant improvement overnight. Continue Toprol xl 12.5mg PO QD. -Continue Xarelto at this time. given the fact that patient has had a suggested TIA while compliant on Xarelto, may need to consider transitioning to Eliquis as Xarelto can be considered failed therapy. This can be addressed OP with our clinical pharmacist team. Patient is stable from a cardiac perspective and appropriate for discharge when ok with primary team. Will recommend close post hospital follow up. Case has been discussed with Dr. Graves. Further recommendations regarding plan of care as per his assessment. I spent a total of 30 minutes on the date of service in preparation, delivery, documentation of the care provided to the patient excluding any time spent in the performance of separately billed services. ELOY Petersen [facility] Card[facility] Admission and Anticipated Discharge Date Admission Date: October 08, 2023 Supervising Physician Co-Signing Physician Notes Case discussed with ELOY Peralta. Agree with findings and plan as documented. Patient tolerating introduction of low-dose metoprolol with improvement in subjective symptoms. Continue Xarelto for now due to cost concerns, if prior authorization obtainable as an outpatient for [place], will transition as an outpatient. Patient discharged prior to ny having the opportunity to examine him in person. Shlomo Graves DO Subjective 10/11/23: Patient seen and examined today in follow up. Sitting up in bed feeling well. Offers no complaints. States that plan is likely for discharge today. Reviewed labs, vitals, diagnostics, telemetry and documentation Telemetry demonstrates improved resting HR. SR with PAC 90-105. 3 separate runs of A-fib with rates as high as 140's lasting les than 20 seconds. Review of Systems Review of Systems: All systems reviewed & are unremarkable except as noted in HPI & below Physical Exam Constitutional: + thin and + cachectic; no acute distres s and not ill appearing Neck: normal visual inspection and trachea midline Respiratory: normal respiratory effort, lungs clear to auscultation Auscultation: + diminished lung sounds (bilateral bases); no crackles, no rales, no rhonchi and no wheezes Cardiovascular: Rate/Rhythm: regular rate, regular rhythm and + tachycardic (burst of SVT rates to 160bpm ) Heart Sounds: normal S1, normal S2 and + murmur (+2/6 systolic) Vessels: no JVD Skin: no rashes, warm and dry Psychiatric: A+Ox3, euthymic affect Results & Data Vital Signs (Past 12 Hours) Vital Signs Temp Pulse Resp BP Pulse Ox O2 Del Method 10/11/23 12:25 36.4 C L 88 17 117/66 95 10/11/23 10:59 36.4 C L 88 17 117/66 95 Room Air 10/11/23 07:55 37.0 C 93 H 18 116/65 91 Room Air 10/11/23 03:14 36.6 C 99 H 16 114/71 90 Room Air Laboratory Results CBC 10/11/23 Range/Units 05:51 WBC 10.65 (4.8-10.8) K/ul RBC 3.71 L (4.70-6.10) M/uL Hgb 12.7 L (14.0-18.0) g/dl Hct 37.4 L (42.0-52.0) % Plt Count 236 (130-400) K/uL Neut # (Auto) 6.93 H (1.40-6.50) K/uL Lymph # (Auto) 1.30 (1.20-3.40) K/uL [place] # (Auto) 1.91 H (0.11-0.59) K/uL Eos # (Auto) 0.40 (0.00-0.50) K/uL Baso # (Auto) 0.08 (0.00-0.20) K/uL Comprehensive Metabolic Panel 10/11/23 Range/Units 05:51 Sodium 138 (136-145) mmol/L Potassium 4.1 (3.5-5.1) mmol/L Chloride 98 (98-107) mmol/L Carbon Dioxide 36 H (21-32) mmol/L BUN 19 (6-23) mg/dl Creatinine 0.73 (0.6-1.4) mg/dl Glucose 95 (70-99(Fasting)) mg/dl Calcium 9.3 (8.6-10.3) mg/dl Intake and Output 10/10/23 10/11/23 10/11/23 22:59 06:59 14:59 Intake Total 800 / 1100 300 / 1100 Balance 800 / 1100 300 / 1100 Intake: Oral 800 / 800 Tube Feeding 300 / 300 Other: # Unmeasured Voids 1 1 Weight 62 kg 62 kg Weight Measurement Method Built in [facility] Patient Weight 10/12/23 06:59 Weight 62 kg
--- NOTE | 2023-10-12 08:31 | Discharge Summary ---
Date of Service October 11, 2023 Admission HPI Per Admitting Provider This is a 73-year-old male who has a significant past medical history of CAD, PAF, history of PSVT, history of TAVR, mitral valve stenosis, Raynaud's, myositis, interstitial lung disease, JULIUS, hypothyroidism, senile osteoporosis and history of Hodgkin's lymphoma who presents to ED after experiencing episodes of chest pain yesterday as well as word finding difficulty/slurred speech for 3 to 5 minutes yesterday. is at bedside. Yesterday he experienced an episode prior to make dinner for approximately 3-5 minutes where he couldn't form a sentence and had word finding difficulty. He felt frustrated he couldn't speak. denies noticing facial droop or drooling. Pt felt dizzy during the event as well as off balance. He had a left sided headed. He denies any unilateral weakness. His sx resolved spontaneously and he not recurred. He also reports having one episode of Left sided chest pain. It happened early this afternoon and radiated to L shoulder. He described it as moderate. It lasted for a few hours and it has relieved mostly. It felt like a pressure, "someone pounded me." He has never experienced this before. He is fairly active at baseline. He walks the dog. He denies seeing chiropractor but does his own neck exercises. He usually does them in the morning. It involves stretching and isometrics. He denies feeling anything out of the ordinary during that time. He did feel his heart palpating with the chest pain. He denies URI sx, cough, f/c/s, syncope, n/v/d. He denies hx of bowel or bladder issues. He has been on xarelto for 1 week. His outpatient records were reviewed. He follows with cardiology at [facility]. He underwent TAVR in 05/03/2023. Since then he has been undergoing cardiac rehab. During cardiac rehab his heart rate would spike to 1 60-1 70 and he would feel lightheaded with an odd sensation in his chest. This was felt to be likely SVT. He also recently had a Zio patch which revealed A-fib. He initially was started on Eliquis but due to cost was converted over to Xarelto. Admission Exam Per Admitting Provider Constitutional: Alert oriented x 3. Head: Normocephalic, Atraumatic Eyes: PERRL, conjunctivae normal, anicteric sclerae ENMT: external ear and nose normal, oropharynx normal Neck: trachea midline, no thyromegaly normal visual inspection Respiratory: normal respiratory effort, lungs clear to auscultation, no wheeze, rales, rhonchi. Normal insp/exp effort, no accessory muscle use Cardiovascular: RRR, no murmur, no edema Vessels: no JVD or carotid bruit Chest: normal inspection of chest Abdomen: normal bowel sounds, soft, nontender, no hepatosplenomegaly Musculoskeletal: no cyanosis or clubbing, extremities motor strength 5/5 Skin: no rashes, warm and dry normal turgor Neurologic: PERRL, EOMI, accommodation nl, no face palsy, no dysarthria CN's II- XI intact bilaterally and moves all extremities. finger-nose test, [id number] test normal. No focal neurological symptoms/sign present Psychiatric: A+Ox3, euthymic affect Principal Diagnosis Transient ischemic attack, history of TAVR, PAF and PSVT Discharge Exam Lying in bed without any acute distress Constitutional average body habitus; not ill appearing ENMT external ear and nose normal, oropharynx normal Neck trachea midline, no thyromegaly Respiratory no respiratory distress Auscultation: lungs clear to auscultation bilaterally Cardiovascular Rate/Rhythm: regular rate, regular rhythm and + tachycardic Heart Sounds: normal S1, normal S2 and + murmur Extremities: no edema Gastrointestinal (Abdomen) Inspection/Auscultation: normal bowel sounds; abdomen not distended Percussion/Palpation: abdomen soft; abdomen nontender Neurologic normal touch/pain/proprioception and moves all extremities; no focal motor deficits Psychiatric A+Ox3, euthymic affect Lymphatic no cervical or axillary lymphadenopathy Discharge Data Allergies Allergy/AdvReac Type Severity Reaction Status Date / Time No Known Allergies Allergy Verified 02/20/23 08:47 Consultations 10/08/23 16:25 ED Decision to Admit Stat 10/08/23 16:45 Consult Neurology Routine 10/08/23 20:56 Consult Cardiology Routine Ordered Studies 10/08/23 13:10 CT head/brain wo con Stat CTA head w con [CT angio head w con] Stat CTA neck with con [CT angio neck with con] Stat 10/08/23 16:45 MR brain wo/w con Routine Hospital Course (1) Dysarthria: (2) Chest pain: (3) Elevated troponin: (4) Atrial fibrillation: Plan Patient is a 73-year-old male who has a significant past medical history of CAD, PAF, history of PSVT, history of TAVR, mitral valve stenosis, Raynaud's, myositis, interstitial lung disease, JULIUS, hypothyroidism, senile osteoporosis and history of Hodgkin's lymphoma who presents to ED after experiencing episodes of chest pain yesterday as well as word finding difficulty/slurred speech for 3 to 5 minutes yesterday. Transient ischemic attack Presented with transient Dysarthria Given history of TAVR, associated chest pain likely cardioembolic Occlusion of left vertebral artery--chronic No significant stroke on imaging studies Echo has been remarkable for the condition but no atrial fibrillation and/or thrombus TIA symptoms have resolved --Lipid panel within normal limits. LDL 71 --HbA1c 5.9 Appreciate neurology input and recommendation Continue aspirin and Xarelto Started on Lipitor 20 mg daily Will need Zio patch as outpatient Needs follow-up with neurology on discharge Remains stable medically and denies any significant symptoms Will be discharged home this afternoon Tachycardia History of atrial fibrillation but no evidence of A-fib right now Has been started on a small dose of beta-shawna Tachycardia has been improving Appreciate cardiology input and recommendation Heart rate is controlled with current medications without any cardiac symptoms Imaging studies --MRI Brain:No acute intracranial abnormality. --Head CTA:No significant stenosis, occlusion, or aneurysm within the [place]. The distal left vertebral artery is only faintly opacified at the level the C1. This is only partially imaged on this study but is suspicious for a left vertebral artery dissection. This is better appreciated on the same day neck CTA. --Neck CTA:Moderate atherosclerotic plaque within the proximal bilateral internal carotid arteries. 30% stenosis of the proximal right internal carotid artery. No stenosis of the cervical left internal carotid artery. Dominant, patent right vertebral artery. Diminutive left vertebral artery. Trace flow versus multifocal occlusion with distal reconstitution of the left vertebral artery. These findings are age indeterminate. Trace flow within the left vertebral artery is noted. This finding is age indeterminate. Underlying dissection cannot be excluded. Findings discussed with Dr. Hinson at time of addendum. -- Echo-mild concentric LVH, systolic function is normal with EF 55 to 60%, RV mildly dilated, left atrium is severely dilated, right atrium is moderately dilated, status post TAVR and there is no significant prosthetic regurgitation, severe mitral annular calcification, no mitral valve stenosis but there is moderate tricuspid regurgitation, severe pulmonary hypertension is present with estimated pressure of 16 mmHg and grade 2 diastolic dysfunction Prediabetes HbA1c 5.9 Left sided chest pain CAD H/O PAF, hx of PSVT S/P TAVR 04/2023 Mitral Valve Stenosis Significant cardiac hx of nonobstructive CAD, symptomatic atrial fibrillation status post PVI 05/2017, atrial flutter status post tricuspid isthmus ablation 2013, history of TAVR April 2023, severe MR Mild troponin elevation likely demand ischemia secondary to tachycardia Symptomatic PACs Normal TSH Denies any more chest pain and/or palpitation JULIUS on CPAP cpap at HS Hypothyroidism chronic, stable continue levothyroxine DVT Px: Xarelto Code Status Full Code Total Time Total Time Spent Total Time Spent (In Minutes): 35 minutes Discharge Plan Discharge Items Patient Disposition: Home - Self-Care Reason For Visit: STROKE LIKE SX, CHEST PAIN Discharge Diagnosis: Transient ischemic attack, history of TAVR, PAF and PSVT Condition on Discharge: Fair Activity: Resume your previous activity Non-emergency contact: Primary Care Provider Call non-emergency contact if: you have any medication questions and your symptoms worsen Follow-up/Referrals: Izzy Diggs PA-C [Physician Adult Psychiatrist] - (Date & Time 10/29/2023 11:20 AM Provider Izzy Diggs PA-C Department Neurology [facility] ) Dewayne Pena MD [Outside Practitioners] - (Date & Time 10/16/2023 3:20 PM Provider Dewayne Pena MD Department Family Practice [facility] ) Diet: Regular Addtl Attending Provider Instructions: Please take precautions to avoid falls Take your medications as advised Please keep appointments with your healthcare providers You need to have a Zio patch placed from your primary care doctor's office Pending Studies at Discharge: No Stand-Alone Forms: My Idea Device, Smoking Cessation, Medications to Prevent Stroke Medications and DC Order Prescriptions: New atorvastatin 20 mg Tablet 20 mg PO QAM Qty: 30 0RF metoprolol succinate 25 mg Tablet Extended Release 24 Hr 12.5 mg PO QAM Qty: 30 0RF Continued aspirin 81 mg Tablet,Delayed Release (Dr/Ec) 81 mg PO QAM levothyroxine 75 mcg tablet 75 mcg PO QAM Rx Instructions: TAKE BEFORE BREAKFAST cyanocobalamin (vitamin B-12) [Vitamin B-12] 1,000 mcg Tablet 1,000 mcg PO QAM cholecalciferol (vitamin D3) [Vitamin D3] 1,000 unit Capsule 1,000 unit PO QAM Xarelto 20 mg tablet 20 mg PO QPM Discharge Orders: Discharge Order (Routine); Ordered 10/11/23 Ordered By: Rachelle Dhillon Admission Data Admit Date/Time: 10/08/23 16:45 Attending Provider: Rachelle Dhillon Admit Provider: Jorge Alberto Sumner Primary Care Provider: Jason Karimi Other Providers: Dewayne Lopez; Jorge Alberto Sumner; Blessing Alvarado; Mike Graves; Thaddeus Sneed; Nikolas Russell; Zach Wong; Sadiq Mccormick; Kristi Raymond; Izzy Patiño Sowmya; Blessing Coronel; Tigre Okeefe; Kalyan Drummond; Erika Jimenez; Yasmeen Sapp; Jayna Whitaker; Sherry Benítez; Young Colon; Gracia Perry; Jeovanny Scott Other Interventions: Discharge Summary Assessment (RN) Last Done: 10/11/23 12:25
== END 2023-10-11 13:21 | disposition home or self-care (01) ==
LOC: 2S 12:27 → ED 12:27 → SUATTDRO 16:45 → 2S 20:01
DX: I65.02 Occlusion and stenosis of left vertebral artery; Z85.71 Personal history of Hodgkin lymphoma; R51.9 Headache, unspecified; I47.10 Supraventricular tachycardia, unspecified; Z79.890 Hormone replacement therapy; G47.33 Obstructive sleep apnea (adult) (pediatric); Z87.891 Personal history of nicotine dependence; R07.89 Other chest pain; Z79.82 Long term (current) use of aspirin; Z79.01 Long term (current) use of anticoagulants; I25.10 Atherosclerotic heart disease of native coronary artery without angina pectoris; E03.9 Hypothyroidism, unspecified; I48.0 Paroxysmal atrial fibrillation; R47.1 Dysarthria and anarthria; I65.8 Occlusion and stenosis of other precerebral arteries; R73.03 Prediabetes; M60.9 Myositis, unspecified; Z79.899 Other long term (current) drug therapy; J84.9 Interstitial pulmonary disease, unspecified; M81.0 Age-related osteoporosis without current pathological fracture; R79.89 Other specified abnormal findings of blood chemistry

== ENCOUNTER 2023-10-20 08:42 | Inpatient (IN) ==
[2023-10-20] MEDS: METOPROLOL TARTRATE 1 MG/ML VIAL IV STA (09:12)
[2023-10-20 09:37] LABS: Eosinophils # (auto) 0.32 K/uL (0.00-0.50); Eosinophils % (auto) 3.3 %; Hemoglobin 12.5 g/dl (14.0-18.0); Immature Granulocytes # (auto) 0.04 K/uL (0.01-0.20); Immature Granulocytes % (auto) 0.4 %; Lymphocytes # (auto) 0.93 K/uL (1.20-3.40); Lymphocytes % (auto) 9.7 %; Mean Corpuscular Hemoglobin 34.2 pg (25.0-34.0); Mean Corpuscular Hgb Conc 32.9 g/dL (32.0-36.0); Mean Corpuscular Volume 104.1 fL (80.0-100.0); Mean Platelet Volume 11.7 fL (9.4-12.4); Monocytes # (auto) 1.38 K/uL (0.11-0.59); Monocytes % (auto) 14.4 %; Neutrophils % (auto) 71.2 %; Platelet Count 288 K/uL (130-400); RDW Coefficient of Variation 15.6 % (11.5-14.5); RDW Standard Deviation 60.1 fL (36.4-46.3); Red Blood Count 3.65 M/uL (4.70-6.10); White Blood Count 9.57 K/ul (4.8-10.8)
--- NOTE | 2023-10-20 09:39 | XRay Report ---
SINGLE VIEW CHEST CLINICAL HISTORY: Dysrhythmia. FINDINGS: An AP, portable, upright chest radiograph is compared to study dated 10/08/2023. There is ev idence of previous cardiac valve surgery. The heart is enlarged noting atherosclerotic calcification of the thoracic. Diffuse interstitial thickening is similar to previous. Right basilar opacities have increased from previous. Foci of parenchymal scarring are seen throughout both lungs. No large pleur al effusion or pneumothorax is identified. The skeletal structures are osteopenic. The bony thorax is grossly intact. Surgical clips project over the left upper quadrant of the abdomen. IMPRESSION: 1. Cardiomegaly with diffuse interstitial thickening. This is similar in appearance to prior studies and may be related to chronic lung disease. Fluid overload/congestive failure could appear similar an d clinical correlation will be required. 2. There are increasing airspace opacities at the right lung base. This could represent scarring/atel ectasis. Correlate clinically for evidence of a superimposed pneumonia/aspiration pneumonitis. ACT 112: Negative or not required by law. Electronically signed by: Jose Alberto Elizabeth M.D. 10/20/2023 9:37 AM
[2023-10-20 09:45] LABS: Albumin Globulin Ratio 0.9 (0.9-2); Albumin Level 3.6 gm/dl (3.4-5.0); BUN Creatinine Ratio 25.8 (10-20); Bilirubin,Total 0.8 mg/dl (0.2-1.0); Calcium 8.9 mg/dl (8.6-10.3); Creatinine Clr Calc Pharmacy 92.5 ml/min; Est GFR (African American) 110.4 ml/min; Est GFR (Non-African American) 95.2 ml/min; Globulin 3.9 gm/dl (2.5-4.0); Potassium 4.1 mmol/L (3.5-5.1); Total Protein 7.5 gm/dl (6.0-8.3)
[2023-10-20 09:51] LABS: Troponin I High Sensitivity 42.1 pg/ml (0-20)
[2023-10-20 09:53] LABS: INR 1.2 (0.9-1.1); Partial Thromboplastin Ratio 1.2; Partial Thromboplastin Time 32 Seconds (21-31); Prothrombin Time 12.5 Seconds (9.0-12.0)
[2023-10-20 09:59] LABS: Thyroid Stimulating Hormone 3.378 uIu/ml (0.300-4.500)
[2023-10-20] MEDS: cefTRIAXone SODIUM 2,000 MG/50 ML BAG IV STA (12:12)
--- NOTE | 2023-10-20 12:14 | History & Physical Report ---
Date of Service October 20, 2023 Assessment & Plan (1) Heart failure with preserved ejection fraction: Plan: Concerning features of developing heart failure syndrome are present including worsening CLANCY, exercise intolerance, wt gain, nonproductive cough. Objective d deon includes elevation in BNP and CT imaging with pulmonary edema and small pleural effusions. Lasix 20mg IV started with potassium supplementation. Cont oxygen support and wean as tolerated. Notably the SOB and hypoxia may be multifactorial, including possible aspiration pneumonia. Will cont with Lasix 20mg IV daily for now and monitor clinical progress. Cont daily standing weights. (2) Pneumonia: Plan: possible aspiration pneumonia given h/o this and esophageal dysmotility. He has been evaluated by video swallow study in 2021 with no evidence of aspiration. He continues with aspiration precautions and slippery diet and was recently evaluated by speech as inpatient with diet recs given. Zosyn given empirically given recent hospitalization and h/o bronchiectasis (pseudomonas risk factors) and anaerobe coverage. Will hold on vanc until nasal swab for MRSA returns as the patient is not septic at this point. (3) Chest pain: Plan: This may have been related to the afib w RVR and has resolved. Doubt ACS. The HS troponin leak may be a result of the tachycardia in the setting of known structural heart disease, prosthetic valve and diastolic dysfunction. EKG without acute ischemia. Cont to trend trop. Consider full dose ASA if chest pain returns. (4) Atrial fibrillation with rapid ventricular response: Plan: Known h/o PAF. RVR may have been precipitated from the pulmonary edema or this possible pneumonia. TSH WNL. Currently in sinus rhythm. Cont home Toprol and apixaban. Noted h/o PSVT in history, also. 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 Nutrition consult while admitted for monitoring. (7) Pulmonary hypertension: Plan: per history. Cont CPAP, treat underlying heart failure. Sees Dr. Holden ledezma. (8) Interstitial lung disease: Plan: per history as noted above. DVT prophy: apixaban Full Code per my conversation with him on admission. Dispo- to telemetry I spent a total of75 minutes coordinating, documenting, and providing care for this patient excluding time spent in the performance of separately billed services DO [facility] History of Present Illness Chief Complaint: cardiac assessment Primary Care Provider: Dewayne Pena MD 73 yo M presents with atrial fibrillation with RVR. Per outpatient record review he has a h/o PAF on Xarelto. He is s/p TAVR on 05/03/2023 followed by cardiac rehab. At the end of his rehab sessions he had episodes where his heart rate spiked to 160-170s and he felt lightheaded, with an odd sensation in the chest and pressure in his head. He was noted to have SVT per recent Zio monitor He has known ILD, positive NEREYDA, pulmonary hypertension, Raynauds, JULIUS and esophageal dysmotility. He also has a h/o Hodgkin's lymphoma with radiation to the chest 45 years ago. He sees pulmonary and has a noted h/o recurrent aspiration. He was seen by rheumatology who did not feel his symptoms were consistent with an autoimmune condition. 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 He also has known uncomplicated bronchiectasis. On presentation today he was in afib with RVR. He converted back to sinus rhythm after Lopressor 5mg IV. He has recently noted "cold symptoms" including a nonproductive cough, nasal congestion. He denies ear symptoms, fevers, chills. He reports episodes of epistaxis as possible sequelae of nasal symptoms and blowing his nose. He said these symptoms started the day he returned home from the hospital and have been getting progressively worse. He also reports significant dyspnea with exertion noting he could typically walk the length of a football field but now can only walk 20 ft becoming short of breath. He reported gaining 4 lbs in the past week. He reports a new dry mouth. Notably he was started back on metoprolol and newly on atorvastatin after recent hospitalization for an episode of dysarthria. The dysarthria has not returned and he denies other stroke like symptoms. He denies PND and sleeps on a wedge at home all the time. This morning, shortly after awakening he developed palpitations and chest pain in the left anterior chest wall that was constant. Home pulse oximeter revealed his heart rate was sin the 160s and his oxygen saturation was low. After conversion to sinus rhythm this morning, the chest pain resolved. He is feeling better, but still is hypoxic at rest. CXR reveals a possible pneumonia. He denies christel aspiration but still has some issues with this. He is being started on abx and is requiring 2LPM oxygen supplementation which is new. ROS otherwise reveals no diarrhea, abdominal pain or other symptoms. He is tolerating PO well. He is accompanied by his who assists with the history. Allergies Allergy/AdvReac Type Severity Reaction Status Date / Time No Known Allergies Allergy Verified 02/20/23 08:47 Home Medications Medication Instructions Recorded Confirmed Type aspirin 81 mg tablet,delayed 81 mg PO QAM 11/16/18 10/20/23 History release levothyroxine 75 mcg tablet 75 mcg PO QAM 11/16/18 10/20/23 History cholecalciferol (vitamin D3) 25 1,000 unit PO QAM 05/07/19 10/20/23 History mcg (1,000 unit) capsule (Vitamin D3) cyanocobalamin (vitamin B-12) 1,000 mcg PO QAM 05/07/19 10/20/23 History 1,000 mcg tablet (Vitamin B-12) atorvastatin 20 mg tablet 20 mg PO QAM #30 tabs 10/11/23 10/20/23 Rx metoprolol succinate 25 mg 12.5 mg (1/2 x 25 mg) PO QAM #30 10/11/23 10/20/23 Rx tablet,extended release 24 hr tabs apixaban 5 mg tablet (Eliquis) 5 mg PO BID 10/20/23 10/20/23 History Past Med/Surg History Medical History (Updated 10/20/23 @ 15:39 by Anca Gomez DO) Pulmonary hypertension Protein calorie malnutrition H/O Hodgkin's lymphoma Neuromuscular disorder Senile osteoporosis Mobitz (type) II atrioventricular block PSVT (paroxysmal supraventricular tachycardia) PAF (paroxysmal atrial fibrillation) Low blood pressure Arthritis Tachycardia Interstitial lung disease no inhaler Hypothyroidism Hodgkin disease diagnosed at age 27--had radiation and spleenectomy Sleep apnea cpap History of atrial fibrillation follows with Dr. Graves Surgical History S/P TAVR (transcatheter aortic valve replacement) 04/2023 History of esophagogastroduodenoscopy (EGD) History of tooth extraction History of left hip replacement History of anesthesia reaction woke up once during a colonoscopy History of colonoscopy History of lymph node biopsy malignant--hodgkin History of splenectomy History of cardiac cath 2015 no stents History of cardioversion History of cardiac radiofrequency ablation x2-- "treated for A-fib" Family History Other No family history of adverse response to anesthesia Social History Smoking Status: Never smoker Tobacco Type: Cigarettes Second Hand Exposure: No; Do You Dip or Chew Tobacco: No; Tobacco Cessation Education Requested by Patient: No Hx Alcohol Use: No Hx Substance Use: No Preferred Language: Divehi Communication Ability: Effective Threshing Department Supervisor Required: No Beliefs That Will Affect Care: Episcopalian Episcopalian Beliefs: Does not eat pork. He is anglican Current Living Situation: Spouse Other Information That Helps Us Care for You: No Feels Safe at Home: Yes Safety Concerns: Feels Safe At This Time Assistive Devices: CPAP and Walker Physical Exam Physical Exam: CONSTITUTIONAL: thin, frail, cachectic, vitals as above, generally well- appearing, NAD EYES: PERRL, normal conjunctivae, no scleral icterus ENT: external ear and nose normal, cerumen blocking TM visualization bilaterally, oropharynx clear NECK: trachea midline RESPIRATORY: crackles throughout lung cline, no rales or wheezes, normal respiratory effort CARDIOVASCULAR: regular rate and rhythm, S1 and 2 heard 3/6 MARIAH throughout precordium, no gallops or rubs, no JVD, no peripheral edema CHEST: inspection of chest was normal GASTROINTESTINAL: soft, nontender, ND, no guarding MUSCULOSKELETAL: strength 5/5 throughout, head is normocephalic and atraumatic SKIN: warm and dry NEUROLOGIC: CN 2-12 grossly intact, no sensory deficit, normal cognition, normal speech, no tremor PSYCHIATRIC: alert cooperative and oriented to person, place and time. Euthymic mood, makes good eye contact, language grossly intact, recent and remote memory grossly intact. Results & Data Results & Data Vital Signs (Past 12 Hours) Vital Signs Temp Pulse Pulse Resp BP BP Pulse Ox 10/20/23 12:07 84 18 126/78 96 10/20/23 10:30 78 20 120/68 96 10/20/23 09:35 82 24 108/62 98 10/20/23 09:29 82 110/56 L 10/20/23 09:12 100 H 112/81 10/20/23 08:56 156 H 10/20/23 08:54 100 H 20 112/81 98 10/20/23 08:54 88 L 10/20/23 08:54 10/20/23 08:45 36.3 C L 105 H 15 129/85 88 L O2 Del Method O2 Flow Rate 10/20/23 12:07 Nasal Cannula 2 10/20/23 10:30 Nasal Cannula 2 10/20/23 09:35 Nasal Cannula 2 10/20/23 09:29 10/20/23 09:12 10/20/23 08:56 10/20/23 08:54 Nasal Cannula 2 10/20/23 08:54 Nasal Cannula 2 10/20/23 08:54 Nasal Cannula 2 10/20/23 08:45 Room Air Laboratory Results Laboratory Results WBC 9.57 K/ul (4.8-10.8) 10/20/23 09:10 RBC 3.65 M/uL (4.70-6.10) L 10/20/23 09:10 Hgb 12.5 g/dl (14.0-18.0) L 10/20/23 09:10 Hct 38.0 % (42.0-52.0) L 10/20/23 09:10 MCV 104.1 fL (80.0-100.0) H 10/20/23 09:10 MCH 34.2 pg (25.0-34.0) H 10/20/23 09:10 MCHC 32.9 g/dL (32.0-36.0) 10/20/23 09:10 RDW Std Deviation 60.1 fL (36.4-46.3) H 10/20/23 09:10 RDW Coeff of Reza 15.6 % (11.5-14.5) H 10/20/23 09:10 Plt Count 288 K/uL (130-400) 10/20/23 09:10 MPV 11.7 fL (9.4-12.4) 10/20/23 09:10 Immature Gran % (Auto) 0.4 % 10/20/23 09:10 Neut % (Auto) 71.2 % 10/20/23 09:10 Lymph % (Auto) 9.7 % 10/20/23 09:10 [place] % (Auto) 14.4 % 10/20/23 09:10 Eos % (Auto) 3.3 % 10/20/23 09:10 Baso % (Auto) 1.0 % 10/20/23 09:10 Neut # (Auto) 6.80 K/uL (1.40-6.50) H 10/20/23 09:10 Lymph # (Auto) 0.93 K/uL (1.20-3.40) L 10/20/23 09:10 [place] # (Auto) 1.38 K/uL (0.11-0.59) H 10/20/23 09:10 Eos # (Auto) 0.32 K/uL (0.00-0.50) 10/20/23 09:10 Baso # (Auto) 0.10 K/uL (0.00-0.20) 10/20/23 09:10 Immature Gran # (Auto) 0.04 K/uL (0.01-0.20) 10/20/23 09:10 PT 12.5 Seconds (9.0-12.0) H 10/20/23 09:10 INR 1.2 (0.9-1.1) H 10/20/23 09:10 APTT 32 Seconds (21-31) H 10/20/23 09:10 PTT Ratio 1.2 10/20/23 09:10 Sodium 138 mmol/L (136-145) 10/20/23 09:10 Potassium 4.1 mmol/L (3.5-5.1) 10/20/23 09:10 Chloride 97 mmol/L (98-107) L 10/20/23 09:10 Carbon Dioxide 36 mmol/L (21-32) H 10/20/23 09:10 Anion Gap 5 (3-11) 10/20/23 09:10 BUN 17 mg/dl (6-23) 10/20/23 09:10 Creatinine 0.66 mg/dl (0.6-1.4) 10/20/23 09:10 Est Cr Clr Drug Dosing 92.5 ml/min 10/20/23 09:10 Est GFR ( Amer) 110.4 ml/min 10/20/23 09:10 Est GFR (Non-Af Amer) 95.2 ml/min 10/20/23 09:10 BUN/Creatinine Ratio 25.8 (10-20) H 10/20/23 09:10 Glucose 114 mg/dl (70-99(Fasting)) H 10/20/23 09:10 Calcium 8.9 mg/dl (8.6-10.3) 10/20/23 09:10 Total Bilirubin 0.8 mg/dl (0.2-1.0) 10/20/23 09:10 AST 19 U/L (13-39) 10/20/23 09:10 ALT 13 U/L (7-52) 10/20/23 09:10 Alkaline Phosphatase 85 U/L (34-104) 10/20/23 09:10 Troponin I High Sens 52.5 pg/ml (0-20) H* D 10/20/23 11:14 Total Protein 7.5 gm/dl (6.0-8.3) 10/20/23 09:10 Albumin 3.6 gm/dl (3.4-5.0) 10/20/23 09:10 Globulin 3.9 gm/dl (2.5-4.0) 10/20/23 09:10 Albumin/Globulin Ratio 0.9 (0.9-2) 10/20/23 09:10 TSH 3.378 uIu/ml (0.300-4.500) 10/20/23 09:10 Impressions Chest X-Ray 10/20/23 08:58 SINGLE VIEW CHEST CLINICAL HISTORY: Dysrhythmia. FINDINGS: An AP, portable, upright chest radiograph is compared to study dated 10/08/2023. There is evidence of previous cardiac valve surgery. The heart is enlarged noting atherosclerotic calcification of the thoracic. Diffuse interstitial thickening is similar to previous. Right basilar opacities have increased from previous. Foci of parenchymal scarring are seen throughout both lungs. No large pleural effusion or pneumothorax is identified. The skeletal structures are osteopenic. The bony thorax is grossly intact. Surgical clips project over the left upper quadrant of the abdomen. IMPRESSION: 1. Cardiomegaly with diffuse interstitial thickening. This is similar in appearance to prior studies and may be related to chronic lung disease. Fluid overload/congestive failure could appear similar and clinical correlation will be required. 2. There are increasing airspace opacities at the right lung base. This could represent scarring/atelectasis. Correlate clinically for evidence of a superimposed pneumonia/aspiration pneumonitis. ACT 112: Negative or not required by law. Electronically signed by: Jose Alberto Elizabeth M.D. 10/20/2023 9:37 AM
[2023-10-20] MEDS ORDERED: POLYETHYLENE (MIRALAX) 17 GM PACK PO PRN (14:19)
--- NOTE | 2023-10-20 14:36 | Emergency Department Note ---
Impression & Plan Atrial fibrillation with rapid ventricular response, Chest pain, Pneumonia ED Provider Note CHIEF COMPLAINT: Chest pain and shortness of breath HISTORY OF PRESENT ILLNESS: This 73-year-old male patient with history of protein calorie malnourishment, atrial fibrillation with RVR, pulmonary hypertension, interstitial lung disease, paroxysmal atrial fibrillation, supraventricular tachycardia, non-STEMI, atrial fibrillation on Eliquis patient presents to the emergency department with complaints of chest pain and shortness of breath. Patient has not had any significant breathing difficulty, vomiting or diarrhea. He denies any fever. REVIEW OF SYSTEMS: A review of systems was performed with positives and pertinent negatives listed in the history of present illness. 10 systems were reviewed and are otherwise negative. ALLERGIES: see below MEDICATIONS: see below PMH: see below SOCIAL HISTORY: see below DDx: Acute coronary syndrome, cardiac arrhythmia, dehydration, electrolyte abnormality, pneumonia, PE, dissection among others PHYSICAL EXAM: Vital signs reviewed. General: Well-appearing 73-year-old male, in no significant distress. HEENT: No scleral icterus, PERRLA, neck supple. Atraumatic. Cardiovascular: Regular rate and rhythm, no extra sounds. Pulmonary: Clear to auscultation bilaterally, normal work of breathing. Abdomen: Soft, nontender, nondistended, positive bowel sounds. Musculoskeletal: Atraumatic, no peripheral edema. Neurologic: Patient awake alert and oriented x 3, speech is clear Skin: Warm, dry, no rash EMERGENCY DEPARTMENT COURSE/MDM: This patient was evaluated and appeared to be in no significant distress. IV access was obtained and laboratory work was drawn. Patient was placed on the media monitor and noted to be in atrial fibrillation with rapid ventricular response. Patient was given 5 mg of IV metoprolol. He was placed on nasal cannula oxygen with mild symptomatic relief. The metoprolol that was administered converted the patient from a atrial fibrillation to a regular rhythm. Findings on chest x-ray suggest the possibility of underlying pneumonia. Blood cultures were obtained and 2 g of IV ceftriaxone were administered. Patient was advised of the findings and plan for overnight hospitalization. He has agreed. Hospitalist service was contacted for admission and further management. MONITORING: An order for cardiac monitoring was placed and the patient is noted to be in a normal sinus rhythm at 81 bpm beats per minute. RADIOLOGY: Chest x-ray to my interpretation reveals possible mild congestive change versus patient's interstitial lung disease. Cardiomegaly with mild congestion. Density at the right lung base concerning for possible aspiration versus atelectasis. Defer to radiology's over read. EKG: To my interpretation reveals a rapid atrial fibrillation at 157 bpm. Anterior septal infarct. QTc is 485. When compared to previous dated October 08, 2023, atrial fibrillation has replaced a sinus rhythm. DISPOSITION: Admission Past Med/Surg History Medical History (Updated 10/25/23 @ 07:07 by Grecia Mckeon MD) Pulmonary hypertension Protein calorie malnutrition H/O Hodgkin's lymphoma Neuromuscular disorder Senile osteoporosis Mobitz (type) II atrioventricular block PSVT (paroxysmal supraventricular tachycardia) PAF (paroxysmal atrial fibrillation) Low blood pressure Arthritis Tachycardia Interstitial lung disease no inhaler Hypothyroidism Hodgkin disease diagnosed at age 27--had radiation and spleenectomy Sleep apnea cpap History of atrial fibrillation follows with Dr. Graves Surgical History S/P TAVR (transcatheter aortic valve replacement) 04/2023 History of esophagogastroduodenoscopy (EGD) History of tooth extraction History of left hip replacement History of anesthesia reaction woke up once during a colonoscopy History of colonoscopy History of lymph node biopsy malignant--hodgkin History of splenectomy History of cardiac cath 2015 no stents History of cardioversion History of cardiac radiofrequency ablation x2-- "treated for A-fib" Family History Other No family history of adverse response to anesthesia Social History Smoking Status: Never smoker Tobacco Type: Cigarettes Second Hand Exposure: No; Do You Dip or Chew Tobacco: No; Tobacco Cessation Education Requested by Patient: No Hx Alcohol Use: No Hx Substance Use: No Preferred Language: Yoruba Communication Ability: Effective Ear Nose Throat Physician Required: No Beliefs That Will Affect Care: Taoism Taoism Beliefs: Does not eat pork. He is moravian Current Living Situation: Spouse Other Information That Helps Us Care for You: No Feels Safe at Home: Yes Safety Concerns: Feels Safe At This Time Assistive Devices: Raised Toilet Seat and Walker Allergies Allergies Allergy/AdvReac Type Severity Reaction Status Date / Time No Known Allergies Allergy Verified 02/20/23 08:47 Home Meds Home Medications Medication Instructions Recorded Confirmed aspirin 81 mg tablet,delayed 81 mg PO QAM 11/16/18 10/20/23 release levothyroxine 75 mcg tablet 75 mcg PO QAM 11/16/18 10/20/23 cholecalciferol (vitamin D3) 25 1,000 unit PO QAM 05/07/19 10/20/23 mcg (1,000 unit) capsule (Vitamin D3) cyanocobalamin (vitamin B-12) 1,000 mcg PO QAM 05/07/19 10/20/23 1,000 mcg tablet (Vitamin B-12) apixaban 5 mg tablet (Eliquis) 5 mg PO BID 10/20/23 10/20/23 Previous Rx's Medication Instructions Recorded atorvastatin 20 mg tablet 20 mg PO QAM #30 tabs 10/11/23 metoprolol succinate 25 mg 12.5 mg (1/2 x 25 mg) PO QAM #30 10/11/23 tablet,extended release 24 hr tabs Results & Data (ED) Vital Signs Vital Signs - 24 hr 10/20/23 08:45 10/20/23 08:54 10/20/23 08:54 Temperature 36.3 C L Temperature Source Temporal Artery Scan Pulse Rate 105 H Pulse Rate [Right Finger] Pulse Rhythm [Right Finger] Respiratory Rate 15 Respiratory Effort / Characteristics Non-Labored Spontaneous Respiratory Depth Normal Normal Respiratory Pattern Blood Pressure 129/85 Blood Pressure [Left Arm] Blood Pressure Mean 99 Blood Pressure Mean [Left Arm] Blood Pressure Position [Left Arm] Pulse Oximetry 88 L 88 L Oxygen Delivery Method Room Air Nasal Cannula Nasal Cannula Oxygen Flow Rate 2 2 Sepsis Recent Fever Within 48 Hours No Sepsis New/Unexplained Change in Mental Status No Sepsis Action Taken by Nursing No Action Required Oxygen Flow Rate - Titration 2 Pulse Oximetry Post Tiitration 97 10/20/23 08:54 10/20/23 08:56 10/20/23 09:12 Temperature Temperature Source Pulse Rate 156 H 100 H Pulse Rate [Right Finger] 100 H Pulse Rhythm [Right Finger] Irregular Respiratory Rate 20 Respiratory Effort / Characteristics Non-Labored Spontaneous Respiratory Depth Normal Respiratory Pattern Regular Blood Pressure 112/81 Blood Pressure [Left Arm] 112/81 Blood Pressure Mean Blood Pressure Mean [Left Arm] 91 Blood Pressure Position [Left Arm] Semi-fowlers Pulse Oximetry 98 Oxygen Delivery Method Nasal Cannula Oxygen Flow Rate 2 Sepsis Recent Fever Within 48 Hours Sepsis New/Unexplained Change in Mental Status Sepsis Action Taken by Nursing Oxygen Flow Rate - Titration Pulse Oximetry Post Tiitration 10/20/23 09:29 10/20/23 09:35 10/20/23 10:30 Temperature Temperature Source Pulse Rate 82 Pulse Rate [Right Finger] 82 78 Pulse Rhythm [Right Finger] Regular Regular Respiratory Rate 24 20 Respiratory Effort / Characteristics Non-Labored Spontaneous Non-Labored Spontaneous Respiratory Depth Normal Normal Respiratory Pattern Regular Regular Blood Pressure 110/56 L Blood Pressure [Left Arm] 108/62 120/68 Blood Pressure Mean Blood Pressure Mean [Left Arm] 77 85 Blood Pressure Position [Left Arm] Semi-fowlers Semi-fowlers Pulse Oximetry 98 96 Oxygen Delivery Method Nasal Cannula Nasal Cannula Oxygen Flow Rate 2 2 Sepsis Recent Fever Within 48 Hours Sepsis New/Unexplained Change in Mental Status Sepsis Action Taken by Nursing Oxygen Flow Rate - Titration Pulse Oximetry Post Tiitration 10/20/23 12:07 Temperature Temperature Source Pulse Rate Pulse Rate [Right Finger] 84 Pulse Rhythm [Right Finger] Respiratory Rate 18 Respiratory Effort / Characteristics Non-Labored Spontaneous Respiratory Depth Normal Respiratory Pattern Regular Blood Pressure Blood Pressure [Left Arm] 126/78 Blood Pressure Mean Blood Pressure Mean [Left Arm] 94 Blood Pressure Position [Left Arm] Semi-fowlers Pulse Oximetry 96 Oxygen Delivery Method Nasal Cannula Oxygen Flow Rate 2 Sepsis Recent Fever Within 48 Hours Sepsis New/Unexplained Change in Mental Status Sepsis Action Taken by Nursing Oxygen Flow Rate - Titration Pulse Oximetry Post Tiitration Home Medications Current Medication List: was personally reviewed by me Laboratory Data Attestation: I reviewed the patient's lab results. 10/22/23 07:01 10/24/23 07:07 Lab Results 10/20/23 10/20/23 10/20/23 Range/Units 09:10 11:14 12:06 WBC 9.57 (4.8-10.8) K/ul RBC 3.65 L (4.70-6.10) M/uL Hgb 12.5 L (14.0-18.0) g/dl Hct 38.0 L (42.0-52.0) % MCV 104.1 H (80.0-100.0) fL MCH 34.2 H (25.0-34.0) pg MCHC 32.9 (32.0-36.0) g/dL RDW Std Deviation 60.1 H (36.4-46.3) fL RDW Coeff of Reza 15.6 H (11.5-14.5) % Plt Count 288 (130-400) K/uL MPV 11.7 (9.4-12.4) fL Immature Gran % (Auto) 0.4 % Neut % (Auto) 71.2 % Lymph % (Auto) 9.7 % Kern % (Auto) 14.4 % Eos % (Auto) 3.3 % Baso % (Auto) 1.0 % Neut # (Auto) 6.80 H (1.40-6.50) K/uL Lymph # (Auto) 0.93 L (1.20-3.40) K/uL Kern # (Auto) 1.38 H (0.11-0.59) K/uL Eos # (Auto) 0.32 (0.00-0.50) K/uL Baso # (Auto) 0.10 (0.00-0.20) K/uL Immature Gran # (Auto) 0.04 (0.01-0.20) K/uL PT 12.5 H (9.0-12.0) Seconds INR 1.2 H (0.9-1.1) APTT 32 H (21-31) Seconds PTT Ratio 1.2 Sodium 138 (136-145) mmol/L Potassium 4.1 (3.5-5.1) mmol/L Chloride 97 L (98-107) mmol/L Carbon Dioxide 36 H (21-32) mmol/L Anion Gap 5 (3-11) BUN 17 (6-23) mg/dl Creatinine 0.66 (0.6-1.4) mg/dl Est Cr Clr Drug Dosing 92.5 ml/min Est GFR ( Amer) 110.4 ml/min Est GFR (Non-Af Amer) 95.2 ml/min BUN/Creatinine Ratio 25.8 H (10-20) Glucose 114 H (70-99(Fasting)) mg/dl Lactate 1.1 (0.4-2.0) mmol/L Calcium 8.9 (8.6-10.3) mg/dl Total Bilirubin 0.8 (0.2-1.0) mg/dl AST 19 (13-39) U/L ALT 13 (7-52) U/L Alkaline Phosphatase 85 (34-104) U/L Troponin I High Sens 42.1 H 52.5 H* D (0-20) pg/ml Total Protein 7.5 (6.0-8.3) gm/dl Albumin 3.6 (3.4-5.0) gm/dl Globulin 3.9 (2.5-4.0) gm/dl Albumin/Globulin Ratio 0.9 (0.9-2) Procalcitonin < 0.02 (0-0.5) ng/ml TSH 3.378 (0.300-4.500) uIu/ml Administered Medications Acetaminophen (Acetaminophen 325 Mg Tab) 650 mg PO Q4H PRN PRN Reason: Pain or Fever Stop: 11/19/23 14:18 Last Admin: 10/24/23 07:27 Dose: 650 mg Documented By: Albuterol (Albut/Ipratrop 3mg/0.5mg Neb 3 Ml Vial) 3 ml NEB BIDR [facility]; Protocol Stop: 11/23/23 08:59 Last Admin: 10/24/23 19:43 Dose: 3 ml Documented By: Admin: 10/24/23 08:19 Dose: 3 ml Documented By: ASIA Apixaban (Apixaban 5 Mg Tablet) 5 mg PO BID [facility] Stop: 11/19/23 20:59 Last Admin: 10/24/23 21:04 Dose: 5 mg Documented By: Admin: 10/24/23 09:12 Dose: 5 mg Documented By: Admin: 10/23/23 20:16 Dose: 5 mg Documented By: Admin: 10/23/23 08:21 Dose: 5 mg Documented By: Admin: 10/22/23 21:11 Dose: 5 mg Documented By: Admin: 10/22/23 08:11 Dose: 5 mg Documented By: Admin: 10/21/23 21:10 Dose: 5 mg Documented By: Admin: 10/21/23 08:19 Dose: 5 mg Documented By: BCSonia Admin: 10/20/23 21:13 Dose: 5 mg Documented By: NANCY Aspirin (Aspirin 81 Mg Ectab) 81 mg PO QAM [facility] Stop: 11/20/23 08:59 Last Admin: 10/24/23 09:12 Dose: 81 mg Documented By: Admin: 10/23/23 08:20 Dose: 81 mg Documented By: Admin: 10/22/23 08:11 Dose: 81 mg Documented By: Admin: 10/21/23 08:19 Dose: 81 mg Documented By: MARY Atorvastatin Calcium ([facility]atin 20 Mg Tab) [facility] [place] Stop: 11/20/23 08:59 Last Admin: 10/24/23 09:12 Dose: 20 mg Documented By: Admin: 10/23/23 08:21 Dose: 20 mg Documented By: Admin: 10/22/23 08:10 Dose: 20 mg Documented By: Admin: 10/21/23 08:19 Dose: 20 mg Documented By: MARY Cyanocobalamin (Cyanocobalamin (B-12) 500 Mcg Tablet) 1,000 [facility]cg [facility] [place] Stop: 11/20/23 08:59 Last Admin: 10/24/23 09:12 Dose: 1,000 mcg Documented By: Admin: 10/23/23 08:22 Dose: 1,000 mcg Documented By: Admin: 10/22/23 08:10 Dose: 1,000 mcg Documented By: Admin: 10/21/23 08:19 Dose: 1,000 mcg Documented By: MARY Piperacillin Sod/Tazobactam (Sod 4.5 gm/ Dextrose) 100 mls @ 25 mls/hr IV Q8H [facility]; Protocol Stop: 10/27/23 21:59 Last Admin: 10/25/23 06:18 Dose: 25 mls/hr Documented By: Infusion: 10/25/23 01:04 Dose: Infused Documented By: Admin: 10/24/23 21:04 Dose: 25 mls/hr Documented By: Infusion: 10/24/23 18:45 Dose: Infused Documented By: Admin: 10/24/23 14:44 Dose: 25 mls/hr Documented By: Infusion: 10/24/23 10:04 Dose: Infused Documented By: Admin: 10/24/23 06:04 Dose: 25 mls/hr Documented By: Infusion: 10/24/23 01:59 Dose: Infused Documented By: Admin: 10/23/23 21:59 Dose: 25 mls/hr Documented By: Infusion: 10/23/23 17:56 Dose: Infused Documented By: Admin: 10/23/23 13:51 Dose: 25 mls/hr Documented By: Infusion: 10/23/23 10:52 Dose: Infused Documented By: Admin: 10/23/23 05:57 Dose: 25 mls/hr Documented By: Infusion: 10/23/23 01:00 Dose: Infused Documented By: Admin: 10/22/23 21:12 Dose: 25 mls/hr Documented By: Infusion: 10/22/23 18:05 Dose: Infused Documented By: Admin: 10/22/23 13:36 Dose: 25 mls/hr Documented By: Infusion: 10/22/23 10:17 Dose: Infused Documented By: Admin: 10/22/23 05:58 Dose: 25 mls/hr Documented By: Infusion: 10/22/23 00:37 Dose: Infused Documented By: Admin: 10/21/23 21:10 Dose: 25 mls/hr Documented By: Infusion: 10/21/23 17:16 Dose: Infused Documented By: Admin: 10/21/23 13:05 Dose: 25 mls/hr Documented By: Infusion: 10/21/23 09:45 Dose: Infused Documented By: Admin: 10/21/23 05:37 Dose: 25 mls/hr Documented By: Infusion: 10/21/23 01:20 Dose: Infused Documented By: Admin: 10/20/23 21:14 Dose: 25 mls/hr Documented By: MMG Lactobacillus Acidophilus (Advanced Probiotic 625 Mg Capsule) 1,250 mg PO DAILY [facility] Stop: 11/20/23 09:29 Last Admin: 10/24/23 09:11 Dose: 1,250 mg Documented By: Admin: 10/23/23 08:22 Dose: 1,250 mg Documented By: Admin: 10/22/23 08:10 Dose: 1,250 mg Documented By: Admin: 10/21/23 10:27 Dose: 1,250 mg Documented By: BCD Levothyroxine Sodium (Levothyroxine Sodium 75 Mcg Tablet) [facility] Stop: 11/20/23 06:29 Last Admin: 10/25/23 06:19 Dose: 75 mcg Documented By: Admin: 10/24/23 06:04 Dose: 75 mcg Documented By: Admin: 10/23/23 05:57 Dose: 75 mcg Documented By: Admin: 10/22/23 05:58 Dose: 75 mcg Documented By: Admin: 10/21/23 05:37 Dose: 75 mcg Documented By: MMGianna Sodium Chloride (Sodium Chlor 7% 4 Ml Neb) 4 ml NEB BIDR [facility] Stop: 11/23/23 07:59 Last Admin: 10/24/23 19:43 Dose: 4 ml Documented By: Admin: 10/24/23 08:19 Dose: 4 ml Documented By: ASIA Sotalol HCl (Sotalol Hcl 80 Mg Tab) 40 mg PO BID [facility] Stop: 11/21/23 20:59 Last Admin: 10/24/23 21:04 Dose: 40 mg Documented By: Admin: 10/24/23 09:12 Dose: 40 mg Documented By: Admin: 10/23/23 20:15 Dose: 40 mg Documented By: Admin: 10/23/23 08:23 Dose: 40 mg Documented By: Admin: 10/22/23 21:11 Dose: 40 mg Documented By: MARIELLE Vitamin D (Cholecalciferol 25 Mcg (1000 Units) Tab) 25 mcg PO QAM [facility] Stop: 11/20/23 08:59 Last Admin: 10/24/23 09:12 Dose: 25 mcg Documented By: Admin: 10/23/23 08:22 Dose: 25 mcg Documented By: Admin: 10/22/23 08:11 Dose: 25 mcg Documented By: Admin: 10/21/23 08:19 Dose: 25 mcg Documented By: MARY Discontinued Medications Furosemide (Furosemide Inj 20 Mg/2 Ml Vial) 20 mg IV ONE STA Stop: 10/20/23 15:15 Last Admin: 10/20/23 15:37 Dose: 20 mg Documented By: LJ Furosemide (Furosemide Inj 20 Mg/2 Ml Vial) 20 mg IV DAILY [facility] Stop: 11/20/23 08:59 Last Admin: 10/22/23 08:12 Dose: 20 mg Documented By: Admin: 10/21/23 08:19 Dose: 20 mg Documented By: MARY Ceftriaxone Sodium (Rocephin) 2,000 mg in 50 mls @ 100 mls/hr IV NOW STA Stop: 10/20/23 12:19 Last Infusion: 10/20/23 12:42 Dose: Infused Documented By: Admin: 10/20/23 12:12 Dose: 100 mls/hr Documented By: EHSAN Piperacillin Sod/Tazobactam (Sod 4.5 gm/ Dextrose) 100 mls @ 200 mls/hr IV ONE ONE; Protocol Stop: 10/20/23 16:29 Last Infusion: 10/20/23 17:46 Dose: Infused Documented By: Admin: 10/20/23 17:05 Dose: 200 mls/hr Documented By: LJ Sodium Chloride (Nss) 500 mls @ 999 mls/hr IV .Q31M [facility] Stop: 10/22/23 09:30 Last Infusion: 10/22/23 09:31 Dose: Infused Documented By: Admin: 10/22/23 09:00 Dose: 999 mls/hr Documented By: AM Amiodarone HCl/Dextrose (Nexterone / D5w) 150 mg in 100 mls @ 600 mls/hr IV NOW STA Stop: 10/22/23 09:40 Last Admin: 10/22/23 12:29 Dose: Not Given Documented By: AM Amiodarone HCl/Dextrose (Nexterone / D5w) 360 mg in 200 mls @ 33.333 mls/hr IV ONE ONE Stop: 10/22/23 15:40 Last Admin: 10/22/23 10:31 Dose: Not Given Documented By: AM Magnesium Sulfate/Dextrose (Magnesium Sulfate / D5w) 1 gm in 100 mls @ 50 mls/hr IV Q2H [facility] Stop: 10/23/23 11:44 Last Infusion: 10/23/23 13:03 Dose: Infused Documented By: Admin: 10/23/23 10:52 Dose: 50 mls/hr Documented By: Infusion: 10/23/23 10:20 Dose: Infused Documented By: DMBlanca Admin: 10/23/23 08:20 Dose: 50 mls/hr Documented By: TRAE Metoprolol Succinate (Metoprolol Succ 25mg Ext Rel Tab) 12.5 mg PO QAM [facility] Stop: 11/20/23 08:59 Last Admin: 10/21/23 08:19 Dose: 12.5 mg Documented By: MARY Metoprolol Succinate (Metoprolol Succ 25mg Ext Rel Tab) 25 mg PO QAM [facility] Stop: 11/21/23 08:59 Last Admin: 10/22/23 08:11 Dose: 25 mg Documented By: AM Metoprolol Succinate (Metoprolol Succ 25mg Ext Rel Tab) 12.5 mg PO NOW STA Stop: 10/21/23 14:13 Last Admin: 10/21/23 15:46 Dose: 12.5 mg Documented By: AMAIRANI Metoprolol Tartrate (Metoprolol Tartrate 1 Mg/Ml Vial) 5 mg IV NOW STA Stop: 10/20/23 08:58 Last Admin: 10/20/23 09:12 Dose: 5 mg Documented By: LMM Metoprolol Tartrate (Metoprolol Tartrate 1 Mg/Ml Vial) 5 mg IV Q5M PRN PRN Reason: Tachycardia Last Admin: 10/22/23 09:05 Dose: 5 mg Documented By: Admin: 10/22/23 08:50 Dose: 5 mg Documented By: Admin: 10/22/23 08:40 Dose: 5 mg Documented By: AM Potassium Chloride (Potassium Chloride Crtab 20 Meq Tabcr) 20 meq PO NOW STA Stop: 10/20/23 15:16 Last Admin: 10/20/23 15:37 Dose: 20 meq Documented By: LJ Potassium Chloride (Potassium Chloride Crtab 20 Meq Tabcr) 20 meq PO [facility] Stop: 11/20/23 08:59 Last Admin: 10/22/23 08:11 Dose: 20 meq Documented By: Admin: 10/21/23 08:19 Dose: 20 meq Documented By: MARY Sodium Chloride (Sodium Chloride 0.65% Na Soln 45 Ml ([place])) 2 sprays NA NOW ONE Stop: 10/20/23 13:16 Last Admin: 10/20/23 15:37 Dose: 2 sprays Documented By: LJ Sodium Chloride (Sodium Chloride 0.65% Na Soln 45 Ml ([place])) Confirm Administered Dose 225 sprays .ROUTE .STK-MED ONE Stop: 10/20/23 18:22 Last Admin: 10/20/23 18:32 Dose: 2 sprays Documented By: LJ Imaging Data Radiologist's Impression: Chest X-Ray 10/20/23 08:58 SINGLE VIEW CHEST CLINICAL HISTORY: Dysrhythmia. FINDINGS: An AP, portable, upright chest radiograph is compared to study dated 10/08/2023. There is evidence of previous cardiac valve surgery. The heart is enlarged noting atherosclerotic calcification of the thoracic. Diffuse interstitial thickening is similar to previous. Right basilar opacities have increased from previous. Foci of parenchymal scarring are seen throughout both lungs. No large pleural effusion or pneumothorax is identified. The skeletal structures are osteopenic. The bony thorax is grossly intact. Surgical clips project over the left upper quadrant of the abdomen. IMPRESSION: 1. Cardiomegaly with diffuse interstitial thickening. This is similar in appearance to prior studies and may be related to chronic lung disease. Fluid overload/congestive failure could appear similar and clinical correlation will be required. 2. There are increasing airspace opacities at the right lung base. This could represent scarring/atelectasis. Correlate clinically for evidence of a superimposed pneumonia/aspiration pneumonitis. ACT 112: Negative or not required by law. Electronically signed by: Jose Alberto Elizabeth M.D. 10/20/2023 9:37 AM Discharge Plan Visit Data Chief Complaint: Cardiac Assessment Stated Complaint: ELEVATED HR/CHEST PAIN ED Provider: Grecia Mckeon Discharge Problem: Atrial fibrillation with rapid ventricular response, Chest pain, Pneumonia Patient Disposition: Admitted As Inpatient Discharge Instructions Interventions: ED Discharge Assessment Last Done: 10/20/23 14:20 Discharge Problem: Chest pain Qualifiers: Chest pain type: precordial pain Qualified Code(s): R07.2 - Precordial pain Pneumonia Qualifiers: Pneumonia type: due to unspecified organism Laterality: bilateral Lung location: lower lobe of lung Qualified Code(s): J18.9 - Pneumonia, unspecified organism
--- NOTE | 2023-10-20 15:03 | CT Scan Report ---
CT SCAN OF THE CHEST WITHOUT IV CONTRAST CLINICAL HISTORY: Hypoxia. COMPARISON STUDY: Chest x-ray dated 10/20/2023. TECHNIQUE: CT scan of the thorax was performed from the thoracic inlet to the upper abdomen. Images are reviewed in the axial, sagittal, and coronal planes. IV contrast was not administered for this ex amination as per the referring clinician. A dose lowering technique was utilized adhering to the [place]a [place] of ISSAC. CT DOSE: 225.13 mGy.cm FINDINGS: Thyroid: Atrophic and heterogeneous. Thoracic aorta: The thoracic aorta is normal in caliber and demonstrates standard 3-vessel arch anato my. Heart: There is evidence of previous aortic valve surgery. The heart is enlargement of and without pe ricardial effusion. The main pulmonary arteries are dilated suggesting pulmonary artery hypertension. The coronary arteries and mitral annulus are densely calcified. Lungs and pleural spaces: Subpleural reticulation is seen throughout both lungs. Intralobular septal thickening suggests fluid overload/congestive failure. Mild groundglass opacities throughout both elana gs likely represent pulmonary edema. There are small pleural effusions with dependent atelectasis. Br onchiectasis is seen throughout both lungs. The trachea and central airways are clear. Fibrotic crisostomo e and fluid is noted at the apices. Probable scarring is seen throughout both lungs. Mediastinum: There are mildly enlarged metastatic lymph nodes. Pretracheal nodes measure up to 12 mm in short axis. A subcarinal node measures 17 mm in short axis. Nelly: Not well assessed without IV contrast. Axillae: There is no axillary lymphadenopathy. Upper abdomen: A normal spleen is not identified and there are surgical clips in left upper quadrant. Cortical scarring is seen in the upper pole of the left kidney. Skeletal structures: The skeletal structures are osteopenic. No lytic or blastic bony lesions are see n. There are chronic superior endplate compression deformities of T2 and T3. Soft tissues: The patient is cachectic. Mild gynecomastia is noted. IMPRESSION: 1. Cardiomegaly with evidence of congestive failure. 2. Small pleural effusions. 3. There are mild patchy groundglass opacities throughout both lungs, likely representing mild pulmon rebecca edema. Correlate clinically for evidence of a superimposed infectious/inflammatory pneumonitis. R adiographic follow-up to resolution is recommended. 4. There is diffuse subpleural reticulation, as well as bronchiectasis seen throughout both lungs con sistent with chronic lung disease. Consider outpatient follow-up with pulmonology. 5. Mildly enlarged mediastinal lymph nodes are nonspecific and likely related to chronic lung disease . 6. Additional findings as above. ACT 112: Negative or not required by law. Electronically signed by: Jose Alberto Elizabeth M.D. 10/20/2023 3:00 PM
[2023-10-20] MEDS: FUROSEMIDE INJ 20 MG/2 ML VIAL IV STA (15:37)
[2023-10-20] MEDS: POTASSIUM CHLORIDE CRTAB 20 MEQ TABCR PO STA (15:37)
[2023-10-20] MEDS: SODIUM CHLORIDE 0.65% NA SOLN 45 ML (OCEAN) ONE ×2 (15:37→18:32)
[2023-10-20] MEDS: PIPERACILLIN/TAZOBACTAM 4.5 GM in DEXTROSE 5% MINI-B 100 ML IV ONE (17:05)
[2023-10-20] MEDS: APIXABAN 5 MG TABLET PO SCH (21:13)
[2023-10-20] MEDS: PIPERACILLIN/TAZOBACTAM 4.5 GM in DEXTROSE 5% MINI-B 100 ML IV SCH (21:14)
[2023-10-21] MEDS: LEVOTHYROXINE SODIUM 75 MCG TABLET PO SCH (05:37)
[2023-10-21 05:57] LABS: Hemoglobin 12.4 g/dl (14.0-18.0); Mean Corpuscular Hemoglobin 33.4 pg (25.0-34.0); Mean Corpuscular Hgb Conc 32.6 g/dL (32.0-36.0); Mean Corpuscular Volume 102.4 fL (80.0-100.0); Mean Platelet Volume 11.2 fL (9.4-12.4); Platelet Count 301 K/uL (130-400); RDW Coefficient of Variation 15.6 % (11.5-14.5); RDW Standard Deviation 58.7 fL (36.4-46.3); Red Blood Count 3.71 M/uL (4.70-6.10); White Blood Count 10.65 K/ul (4.8-10.8)
[2023-10-21 06:38] LABS: Troponin I High Sensitivity 56.8 pg/ml (0-20)
--- NOTE | 2023-10-21 07:34 | Cardiology Consultation ---
Date of Consultation October 21, 2023 Assessment & Plan (1) Atrial fibrillation with rapid ventricular response: (2) Heart failure with preserved ejection fraction: (3) Pneumonia: (4) Interstitial lung disease: Plan Assessment: 73 year old male presents with A-fib with RVR, converted to NSR after one dose of IV Lopressor in ED. Since continues with paroxysmal episodes with rates in the 180s. Progressively worsening dyspnea with acute URI symptoms. CT films suggestive of HR and superimposed pneumonitis. Plan: 1. Atrial fibrillation with RVR: -Known history of P. A-fib. Admission episode likely in the setting of acute infectious process. -continues with intermittant symptomatic episodes. Current home dose of toprol xl 12.5mg Daily, will increase to 25mg PO Daily. -Continue Eliquis 5mg PO BID -Troponin with mild elevation with flat trend, likely tachycardia induced with increased demand in the setting of an acute infectious process. 2. HFpEF: -most recent echo as noted demonstrates normal LVEF with no wall motion abnormality. -Patient with mild hypervolemia on exam. Was not on diuretic therapy at home. -continue with Lasix 20mg IV daily. Cautiously diuresis in the setting of infection. -Monitor daily weights, Strict I&O and maintain a 2G sodium restriction. -Reassess fluid status in the AM -Monitor labs closely. Serum K> 4.0 and serum Mag > 2.0. 3. Pneumonia 4. Interstitial lung disease -Patient is hemodynamically stable and resting comfortably at time of exam. -continued management per primary tem. -Follows with pulmonology OP Case has been discussed with Dr. Drummond. Further recommendations regarding plan of care as per his assessment. I spent a total of 40 minutes on the date of service in preparation, delivery, documentation of the care provided to the patient excluding any time spent in the performance of separately billed services. ELOY Petersen [facility] Cardiology [facility] Supervising Physician Co-Signing Physician Notes I have reviewed the advance practitioner's documentation, and I agree with, and take responsibility for the plan of care. I have personally performed a history and physical examination on the patient. 73-year-old male medical history of severe aortic stenosis status post TAVR, paroxysmal atrial fibrillation, chronic diastolic heart failure presented to the [facility] with symptoms of palpitations and weakness. Patient states that after his TAVR placement he was bradycardic and he was taken off of his metoprolol. He was doing well until he started having more episodes of SVT/atrial fibrillation. He was placed back on his metoprolol has been having recurrent episodes of atrial fibrillation since then. If heart rates are better controlled today but still on the higher side in the 100s to 110s. Will increase his metoprolol to 25 mg p.o. daily. Patient may have an underlying component of tachybradycardia syndrome and we will continue to monitor him on telemetry to make sure there are no significant pauses or high degree AV block or bradycardia but this increased dose of metoprolol. He will need an EP evaluation at some point. Would hold off on antiarrhythmics for now until evaluation of tachybradycardia syndrome. Echocardiogram done on 10/09/2023 showed LVEF of 55-60 percent, mildly dilated RV cavity size with normal RV systolic function, normal functioning prosthetic valve with no prosthetic stenosis or regurgitation, mild MR, and severe pulm hypertension with pulmonary systolic pressure 61 mmHg. I spent a total of 50 minutes on the date of service in preparation, delivery, and documentation of the care provided to this patient, excluding any time spent in the performance of separately billed service History of Present Illness Reason for Consultation: A-fib with RVR Requesting Physician: Frannie mattson Attending Physician: Anca Gomez DO History of Present Illness HPI: Patient is a 73 year old male with complex PMHx as stated below that presented to the ED yesterday with complaints of palpitations, chest discomfort and recent URI symptoms which started a day or two after recent hospital discharge. He states that over the past week he has become progressively more short of breath, notes a 4lb weight gain, and woke with his heart racing. Sp02 monitor reported HR's in the 160s prompting him to present for evaluation. Patient was recently hospitalized on 10/08/23-10/12/23 for stroke like symptoms. EKG upon arrival demonstrated A-fib with RVR, anteroseptal infarct (previously cited), and Non-specific ST abnormality in the inferior leads with depression in the lateral leads. Rate 157bpm (at 0846) Patient received a one time dose of IV Lopressor 5mg and converted to NSR Subsequent EKG at 0933 demonstrates muslim back to NSR, right atrial enlargement and resolution of ST depression in lateral leads. Rate 83bpm. Troponin elevated, peak at 70.3 with flat trend. EKG this morning demonstrates SR with PAC's rate 96. QTc 495ms chest xray IMPRESSION: 1. Cardiomegaly with diffuse interstitial thickening. This is similar in appearance to prior studies and may be related to chronic lung disease. Fluid overload/congestive failure could appear similar and clinical correlation will be required. 2. There are increasing airspace opacities at the right lung base. This could represent scarring/atelectasis. Correlate clinically for evidence of a superimposed pneumonia/aspiration pneumonitis. CT Chest: IMPRESSION: 1. Cardiomegaly with evidence of congestive failure. 2. Small pleural effusions. 3. There are mild patchy ground glass opacities throughout both lungs, likely representing mild pulmonary edema. Correlate clinically for evidence of a superimposed infectious/inflammatory pneumonitis. Radiographic follow-up to resolution is recommended. 4. There is diffuse subpleural reticulation, as well as bronchiectasis seen throughout both lungs consistent with chronic lung disease. Consider outpatient follow-up with pulmonology. 5. Mildly enlarged mediastinal lymph nodes are nonspecific and likely related to chronic lung disease. 6. Additional findings as above. Past Medical History: 1.H/o severe aortic stenosis status post TAVR (# 34mm Medtronic Evolut FX Aortic Valve), 05/03/2023 1.Postop complicated by left bundle branch block which resolved on its own. No permanent pacemaker placed. 2.History of atrial flutter status post tricuspid isthmus ablation, 2013 3.Symptomatic atrial fibrillation status post PVI, 05/2017 4.Mild nonobstructive CAD-- 40% pLAD stenosis and 40% RCA per pre TAVR cath 02/2023 5.Hodgkin's lymphoma for which he was treated with splenectomy and radiation therapy at the age of 27 6.Enlarged aortic root, 4.1 cm 7.Severe MR confirmed by HANNAH 02/2023 8.Interstitial lung disease 9.Positive NEREYDA 10.JULIUS, on CPAP 11.Esophageal dysmotility 12.Hypothyroidism 13.Prediabetes Patient is resting comfortably in bed at this time. he has family at bedside. Denies any active chest pain, pressure or palpitations. VSS. He does feel when he flips into A-fib. He denies any changes to meds or missed meds. Only change has been acute illness and suspected pneumonia on CT scan. Review of telemetry shows SR/St rates 90's-110 bpm with intermittent burst of A- fib rates upwards of 180bpm. Allergies Allergy/AdvReac Type Severity Reaction Status Date / Time No Known Allergies Allergy Verified 02/20/23 08:47 Home Medications Medication Instructions Recorded Confirmed Type aspirin 81 mg tablet,delayed 81 mg PO QAM 11/16/18 10/20/23 History release levothyroxine 75 mcg tablet 75 mcg PO QAM 11/16/18 10/20/23 History cholecalciferol (vitamin D3) 25 1,000 unit PO QAM 05/07/19 10/20/23 History mcg (1,000 unit) capsule (Vitamin D3) cyanocobalamin (vitamin B-12) 1,000 mcg PO QAM 05/07/19 10/20/23 History 1,000 mcg tablet (Vitamin B-12) atorvastatin 20 mg tablet 20 mg PO QAM #30 tabs 10/11/23 10/20/23 Rx metoprolol succinate 25 mg 12.5 mg (1/2 x 25 mg) PO QAM #30 10/11/23 10/20/23 Rx tablet,extended release 24 hr tabs apixaban 5 mg tablet (Eliquis) 5 mg PO BID 10/20/23 10/20/23 History Patient History Medical History (Updated 10/20/23 @ 15:39 by Anca Gomez DO) Pulmonary hypertension Protein calorie malnutrition H/O Hodgkin's lymphoma Neuromuscular disorder Senile osteoporosis Mobitz (type) II atrioventricular block PSVT (paroxysmal supraventricular tachycardia) PAF (paroxysmal atrial fibrillation) Low blood pressure Arthritis Tachycardia Interstitial lung disease no inhaler Hypothyroidism Hodgkin disease diagnosed at age 27--had radiation and spleenectomy Sleep apnea cpap History of atrial fibrillation follows with Dr. Graves Surgical History S/P TAVR (transcatheter aortic valve replacement) 04/2023 History of esophagogastroduodenoscopy (EGD) History of tooth extraction History of left hip replacement History of anesthesia reaction woke up once during a colonoscopy History of colonoscopy History of lymph node biopsy malignant--hodgkin History of splenectomy History of cardiac cath 2015 no stents History of cardioversion History of cardiac radiofrequency ablation x2-- "treated for A-fib" Family History Other No family history of adverse response to anesthesia Social History Smoking Status: Never smoker Tobacco Type: Cigarettes Second Hand Exposure: No; Do You Dip or Chew Tobacco: No; Tobacco Cessation Education Requested by Patient: No Hx Alcohol Use: No Hx Substance Use: No Preferred Language: Guatemalan Communication Ability: Effective 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 He is spiritism Current Living Situation: Spouse Other Information That Helps Us Care for You: No Feels Safe at Home: Yes Safety Concerns: Feels Safe At This Time Assistive Devices: CPAP and Walker Review of Systems Review of Systems: All systems reviewed & are unremarkable except as noted in HPI & below Physical Exam Constitutional: + ill appearing and + thin; no acute dis tress Neck: normal visual inspection and trachea midline Respiratory: normal respiratory effort; no respiratory distress Auscultation: + diminished lung sounds (bilateral bases ) and + wheezes (faint wheeze in right upper lobe ) Cardiovascular: Rate/Rhythm: regular rate (SR at time of exam. does have multiple burst of a-fib) and regular rhythm Heart Sounds: normal S1, normal S2 and + murmur (+1/6 systolic) Vessels: no JVD Extremities: no edema Skin: no rashes, warm and dry Psychiatric: A+Ox3, euthymic affect Results & Data Vital Signs (Past 12 Hours) Vital Signs Temp Pulse Pulse Resp BP BP Pulse Ox 10/21/23 02:47 36.7 C 93 H 18 120/63 91 10/21/23 02:16 89 20 95 10/20/23 23:30 92 H 10/20/23 22:51 36.8 C 90 18 133/78 97 10/20/23 22:15 93 H 33 H 91 10/20/23 20:00 10/20/23 19:41 36.8 C 89 18 123/67 92 O2 Del Method O2 Flow Rate 10/21/23 02:47 Room Air 10/21/23 02:16 2 10/20/23 23:30 10/20/23 22:51 BiPAP 10/20/23 22:15 2 10/20/23 20:00 Room Air 10/20/23 19:41 Room Air Laboratory Results Cardiac Enzymes 10/20/23 10/20/23 10/21/23 Range/Units 17:02 22:46 05:45 Troponin I High Sens 59.5 H* 70.3 H* D 56.8 H* D (0-20) pg/ml CBC 10/21/23 Range/Units 05:45 WBC 10.65 (4.8-10.8) K/ul RBC 3.71 L (4.70-6.10) M/uL Hgb 12.4 L (14.0-18.0) g/dl Hct 38.0 L (42.0-52.0) % Plt Count 301 (130-400) K/uL Comprehensive Metabolic Panel 10/21/23 Range/Units 05:45 Sodium 143 (136-145) mmol/L Potassium 4.1 (3.5-5.1) mmol/L Chloride 98 (98-107) mmol/L Carbon Dioxide 37 H (21-32) mmol/L BUN 18 (6-23) mg/dl Creatinine 0.76 (0.6-1.4) mg/dl Glucose 102 H (70-99(Fasting)) mg/dl Calcium 8.9 (8.6-10.3) mg/dl Intake and Output 10/20/23 10/21/23 10/21/23 22:59 06:59 14:59 Intake Total 340 / 590 200 / 590 100 / 100 Balance 340 / 590 200 / 590 100 / 100 Intake: IV 100 / 250 100 / 250 100 / 100 Piperacillin/Tazobactam 4.5 gm 100 / 200 100 / 200 100 / 100 In Dextrose 5% Mini-B 100 ml @ 25 mls/hr IV Q8H WEST Rx#: [id number] Oral 240 / 340 100 / 340 Other: # Unmeasured Voids 1 3 Weight 64.6 kg Weight Measurement Method Built in [facility] Diagnostic Findings Echocardiogram 10/09/23 Mild concentric LVH No regional wall motion abnormalities LVEF 55-60% RV mildly dilated with normal systolic function Right atrium moderately dilated Left atrium severely dilated s/p TAVR,no significant prosthetic regurg, normal gradients Severe mitral annular calcification Moderate TR Grade II diastolic dysfunction
[2023-10-21] MEDS: CHOLECALCIFEROL 25 MCG (1000 UNITS) TAB PO SCH (08:19)
[2023-10-21] MEDS: ATORVASTATIN 20 MG TAB PO SCH (08:19)
[2023-10-21] MEDS: POTASSIUM CHLORIDE CRTAB 20 MEQ TABCR PO SCH (08:19)
[2023-10-21] MEDS: CYANOCOBALAMIN (B-12) 500 MCG TABLET PO SCH (08:19)
[2023-10-21] MEDS: METOPROLOL SUCC 25MG EXT REL TAB PO SCH (08:19)
[2023-10-21] MEDS: FUROSEMIDE INJ 20 MG/2 ML VIAL IV SCH (08:19)
[2023-10-21] MEDS: ASPIRIN 81 MG ECTAB PO SCH (08:19)
[2023-10-21 09:24] LABS: BUN Creatinine Ratio 23.7 (10-20); Calcium 8.9 mg/dl (8.6-10.3); Creatinine Clr Calc Pharmacy 77.9 ml/min; Est GFR (African American) 104.2; Est GFR (Non-African American) 89.9; Magnesium 1.9 mg/dl (1.7-2.4); Potassium 4.1 mmol/L (3.5-5.1)
[2023-10-21] MEDS: ADVANCED PROBIOTIC 625 MG CAPSULE PO SCH (10:27)
[2023-10-21] MEDS: METOPROLOL SUCC 25MG EXT REL TAB PO STA (15:46)
--- NOTE | 2023-10-21 15:47 | Hospitalist Progress Note ---
Date of Service October 21, 2023 Assessment & Plan (1) Atrial fibrillation with rapid ventricular response: Plan 73-year-old male with PMH of PAF on Xarelto, status post TAVR on 05/03/2023 followed by cardiac rehab, ILD, positive NEREYDA, pulmonary hypertension, Raynaud's, JULIUS, esophageal dysmotility Hodgkin's lymphoma status post radiation to the chest 45 years ago, recurrent aspiration, myositis, bronchiectasis presented to the ED 10/19 with A-fib RVR. Also he reported recent "cold symptoms" including nonproductive cough, nasal congestion prior to arrival. He is being managed for the following: Heart failure with preserved ejection fraction: Patient presented with worsening CLANCY, exercise intolerance, weight gain, nonproductive cough. 10/09/23 echo with EF of 55 to 60%, left atrium is severely dilated, left ventricular systolic function normal, no regional wall motion abnormalities noted. Chest imaging with pulmonary congestion and elevated BNP noted. Cardiology on board, managing diuresis. Monitor replete electrolytes. Strict I's and O's, low-sodium diet. Possible aspiration pneumonia: Given history of recurrent aspiration and esophageal dysmotility. Admitting chest imaging with increased RLL opacity, on exam increased RLL crackles. MRSA screen negative. Zosyn given empirically given recent hospitalization and h/o bronchiectasis (pseudomonas risk factors) and anaerobe coverage. Follow admitting blood culture and sputum culture. Patient started on Zosyn 10/19, continue for now. Patient reports improving hemoptysis. He continues with aspiration precautions and slippery diet and was recently evaluated by speech as inpatient with diet recs given. A-fib with RVR and demand ischemia: Known h/o PAF. RVR may have been precipitated from the pulmonary edema or this possible pneumonia. TSH WNL. Patient reports associated chest pain/palpitation/shortness of breath with A-fib RVR episodes. Troponin mostly in 50s, likely secondary to A-fib RVR. Cardiology on board, uptitrating metoprolol. Continue with home Eliquis. Other chronic medical conditions: Continue with/resume home meds as and when able. Mobitz type II AV block: Per history Protein calorie malnutrition: Likely related to underlying myositis which is still being worked up by his neurologist in [facility]. Nutrition consult while admitted for monitoring. Pulmonary hypertension: Per history. Continue CPAP. Treat underlying heart failure. Sees Dr. Ash ledezma. Interstitial lung disease: Per history. DVT prophylaxis: Apixaban Full code Dispo: PT/OT, CM to assist with DC plan. Admission and Anticipated Discharge Date Admission Date: October 20, 2023 Subjective Patient was seen and examined at bedside. Patient was lying in bed, on room air, NAD, resting comfortably. Patient's at bedside who was also updated on plan of care. In the morning patient had a brief episode of A-fib with RVR, he reports feeling palpitation and shortness of breath about the time. Patient denies any current chest pain at bedside exam, reports improving hemoptysis, reports good appetite and bowel movement, reports no fever. Physical Exam Physical Exam: GENERAL: Alert and oriented x3. NAD, on RA. Appears weak/frail/thin. HEENT: No pallor, no icterus. Pupils equal, round and reactive to light. Oral mucosa moist. NECK: No JVD, no neck masses. HEART: S1 and S2 heard. regular rate and rhythm. No murmur, no gallop. RESPIRATORY SYSTEM: Normal AP diameter. No accessory muscle use. No wheezing, RLL crackles > LLL. ABDOMEN: Soft, bowel sounds present, nontender, no distention. CENTRAL NERVOUS SYSTEM: No facial droop. Speech is clear. Obeys simple commands. Moves extremities. EXTREMITIES: No edema, no erythema seen. Results & Data Results & Data Vital Signs (Past 12 Hours) Vital Signs Temp Pulse Pulse Resp BP Pulse Ox O2 Del Method 10/21/23 12:05 36.8 C 101 H 18 95/62 L 91 Room Air 10/21/23 10:03 91 H 10/21/23 07:54 36.4 C L 95 H 18 125/74 91 Room Air 10/21/23 07:27 Room Air
--- NOTE | 2023-10-21 22:23 | Electrocardiogram Report ---
Test Reason : Blood Pressure : / mmHG Vent. Rate : 157 BPM Atrial Rate : 000 BPM P-R Int : 000 ms QRS Dur : 084 ms QT Int : 300 ms P-R-T Axes : 000 040 032 degrees QTc Int : 485 ms Sinus tachycardia Anteroseptal infarct (cited on or before 08-OCT-2023) Abnormal ECG When compared with ECG of 08-OCT-2023 12:52, Vent. rate has increased BY 55 BPM Confirmed by Guido Canales ([id number]) on 10/21/2023 10:23:27 PM Referred By: REFERRED SELF Confirmed By:Guido Canales
--- NOTE | 2023-10-21 22:25 | Electrocardiogram Report ---
Test Reason : Blood Pressure : / mmHG Vent. Rate : 083 BPM Atrial Rate : 083 BPM P-R Int : 190 ms QRS Dur : 086 ms QT Int : 390 ms P-R-T Axes : 077 032 035 degrees QTc Int : 458 ms Normal sinus rhythm Right atrial enlargement Borderline ECG When compared with ECG of 20-OCT-2023 08:54, (unconfirmed) Vent. rate has decreased BY 74 BPM Non-specific change in ST segment in Inferior leads ST no longer depressed in Lateral leads Confirmed by Guido Canales ([id number]) on 10/21/2023 10:24:53 PM Referred By: REFERRED SELF Confirmed By:Guido Canales
--- NOTE | 2023-10-21 22:58 | Electrocardiogram Report ---
Test Reason : Blood Pressure : / mmHG Vent. Rate : 096 BPM Atrial Rate : 096 BPM P-R Int : 176 ms QRS Dur : 090 ms QT Int : 392 ms P-R-T Axes : 096 034 024 degrees QTc Int : 495 ms Sinus rhythm with Premature atrial complexes Right atrial enlargement Prolonged QT Abnormal ECG When compared with ECG of 20-OCT-2023 09:33, (unconfirmed) Premature atrial complexes are now Present Confirmed by Guido Canales ([id number]) on 10/21/2023 10:58:25 PM Referred By: REFERRED SELF Confirmed By:Guido Canales
--- NOTE | 2023-10-21 23:08 | Electrocardiogram Report ---
Test Reason : Blood Pressure : / mmHG Vent. Rate : 093 BPM Atrial Rate : 093 BPM P-R Int : 182 ms QRS Dur : 092 ms QT Int : 390 ms P-R-T Axes : 074 058 056 degrees QTc Int : 484 ms Sinus rhythm with Premature atrial complexes Prolonged QT Abnormal ECG When compared with ECG of 21-OCT-2023 06:40, (unconfirmed) No significant change was found Confirmed by Guido Canales ([id number]) on 10/21/2023 11:08:18 PM Referred By: REFERRED SELF Confirmed By:Guido Canales
--- OUTSIDE RECORDS SUMMARY | 2023-10-21 23:41 | External Medical Summary | Summary of Care ---
Author Name Unknown Organization [facility] Address [address] [facility] [place] [address] Phone [phone] Care Team Providers Care Manager Distribution Center Name Role Phone Dewayne Pena MD Primary Care Provider [phone] Reason for Visit * Reason Onset Date Comments Hospital Follow-Up Pt here for h ospital follow up Hospital Follow-Up 10/16/2023 Encounter Details Date Type Department Care Team (Latest Contact Info) Description 10/16/2023 3:20 PM EDT Office Visit Family Practice [facility] [address] [place] [address] Dewayne Pena MD [address] [place] [address] Hospital discharge follow-up*; History of TIA (transient ischemic attack); Paroxysmal atrial fibrillation (HCC); Coronary artery disease involving shoshone-bannock coronary artery of shoshone-bannock heart without angina pectoris; Acquired hypothyroidism Allergies No known active allergiesdocumented as of this encounter (statuses as of 10/16/2023) Medications Medication Sig Dispensed Refills Start Date [...] 1 Capsule before bedtime. 0 06/27/2023 Active Atorvastatin Calcium 20 MG Oral Tablet (Lipitor) Take 1 Tablet by mouth in the morning. 90 Tablet 3 10/16/2023 Active Metoprolol Succinate ER 25 MG Oral Tablet Extended Release 24 Hour (toPROL XL) Take 1 Tablet by mouth in the morning. 90 Tablet 3 10/16/2023 Active Rivaroxaban 20 MG Oral Tablet (Xarelto) Take 1 Tablet by mouth daily with dinner. 0 10/16/2023 Active Apixaban 5 MG Oral Tablet (Eliquis) Take 1 Tablet by mouth in the morning and 1 Tablet before bedtime. 60 Tablet 5 10/10/2023 10/16/2023 Discontinued (Discharged) Metoprolol Succinate ER 25 MG Oral Tablet Extended Release 24 Hour (toPROL XL) 0.5 Tablets. 0 10/11/2023 10/16/2023 Discontinued (Refill) Atorvastatin Calcium 20 MG Oral Tablet (Lipitor) 1 Tablet. 0 10/11/2023 10/16/2023 Discontinued (Refill) documented as of this encounter (statuses as of 10/16/2023) Active Problems Problem Noted Date Diagnosed Date [...] disease) 05/20/2019 Coronary artery disease invo lving shoshone-bannock coronary artery of shoshone-bannock heart without angina pectoris 03/24/2019 Nonrheumatic mitral valve stenosis 03/24/2019 H/O Hodgkin's lymphoma 07/05/2018 Acquired hypothyroidism 07/05/2018 documented as of this encounter (statuses as of 10/16/2023) Resolved Problems Problem Noted Date Diagnosed Date [...] prior, see below) BCC R forehead 2008 ([facility]) Prediabetes 02/28/2021 02/01/2023 Overview: Per Prediabetes protocol Moderate protein malnutrition 12/15/2019 03/14/2023 Ankylosing spondylitis of cervical region 12/15/2019 07/07/2022 Moderate aortic stenosis 03/24/2019 H/O atrial fibrillation with out current medication 07/05/2018 03/14/2023 documented as of this encounter (statuses as of 10/16/2023) Immunizations Name Administration Dates Next Due COVID-19 mRNA, LNP-s, No Pre serve, 2-Dose Series (Moderna) 08/21/2020,07/17/2020 COVID-19, MRNA-LNP, 23-24, P F, 30 MCG/0.3 mL, 12 YRS AND ABOVE, IM ([facility]) 03/27/2023 COVID-19, mRNA, LNP-s, PF, B ooster, [...] Sign Reading Time Taken Comments Blood Pressure 120/54 10/16/2023 3:20 PM EDT Pulse 86 10/16/2023 3:20 PM EDT Temperature 36.6 C (97.8 F) 10/16/2023 3:20 PM ED T Respiratory Rate 18 10/16/2023 3:20 PM EDT Oxygen Saturation 92% 10/16/2023 3:20 PM EDT Inhaled Oxygen Concentration - - Weight 65.8 kg (145 lb) 10/16/2023 3:20 PM EDT Height 185.4 cm (6' 1") 10/16/2023 3:20 PM EDT Body Mass Index 19.13 10/16/2023 3:20 PM EDT documented in this encounter Functional Status Functional Status Response Date of Assess ment Do you have serious difficul ty walking or climbing stairs? (5 years old or older) No 05/04/2023 documented as of this encounter Progress Notes * Dewayne Pena MD - 10/16/2023 4:10 PM EDT SUBJECTIVE: Guido Daley is a 73 year old male. Chief Complaint Patient presents with Hospital Follow-Up Pt here for hospital follow up Hospital Follow-Up Recent Admission: Patient was recently admitted to [facility]. Discharge report received and reviewed. HPI: Admitted for episode of dysarthria that occurred at home. Was diagnosed with TIA. He was also having some chest pain at that time. Symptoms all resolved by the time he reached the hospital. He was discharged on a statin and metoprolol. He is back to his baseline and fortunately has no obvious neurologic sequelae. He remains on aspirin. Patient Active Problem List Diagnosis Code H/O Hodgkin's lymphoma Z85.71 Acquired hypothyroidism E03.9 Coronary artery disease involving shoshone-bannock coronary artery of shoshone-bannock heart without angina pectoris I25.10 Nonrheumatic mitral valve stenosis I34.2 Esophageal dysmotility K22.4 JULIUS (obstructive sleep apnea) G47.33 ILD (interstitial lung disease) ([facility]) J84.9 Raynaud's disease without gangrene I73.00 PSVT (paroxysmal supraventricular tachycardia) ([facility]) I47.10 Hx of melanoma of skin Z85.820 PHT (pulmonary hypertension) ([facility]) I27.20 Protein-calorie malnutrition ([facility]) E46 Neuromuscular disorder ([facility]) G70.9 Senile osteoporosis M81.0 BMI less than 19,adult Z68.1 S/P TAVR (transcatheter aortic valve replacement) Z95.2 1st degree AV block I44.0 Paroxysmal atrial fibrillation ([facility]) I48.0 Current Outpatient Medications Medication Sig Dispense [...] the morning and 1 Capsule before bedtime. Apixaban 5 MG Oral Tablet (Eliquis) Take 1 Tablet by mouth in the morning and 1 Tablet before bedtime. 60 Tablet 5 Atorvastatin Calcium 20 MG Oral Tablet (Lipitor) Take 1 Tablet by mouth in the morning. 90 Tablet 3 Metoprolol Succinate ER 25 MG Oral Tablet Extended Release 24 Hour (toPROL XL) Take 1 Tablet by mouth in the morning. 90 Tablet 3 No current facility-administered medications for this visit. Current and discharge medications have been reconciled. Review of patient's allergies indicates: No Known Allergies OBJECTIVE: BP 120/54 | Pulse 86 | Temp 36.6 C (97.8 F) (Tympanic) | Resp 18 | Ht 1.854 m (6' 1") | Wt 65.8kg (145 lb) | SpO2 92% | BMI 19.13 kg/m | BSA 1.84 m Review Of Systems: Skin: negative Eyes: negative Ears/Nose/Throat: negative Respiratory: negative Cardiovascular: negative Gastrointestinal: negative Genitourinary: negative Musculoskeletal: pt denies significant joint pain or stiffness Neurologic: negative Psychiatric: negative Hematologic/Lymphatic/Immunologic: negative Endocrine: negative PHYSICAL EXAM: General: alert, healthy, and no distress Neck: supple, no adenopathy, no bruits, thyroid normal size, non-tender, without nodularity Heart: no murmur and irregularly irregular Lungs: chest symmetric with normal AP diameter, no chest deformities noted, no chest wall tenderness, lungs clear to auscultation Extremities: less than 2 second capillary refill, no joint deformities, effusion, or inflammation Neuro Exam: alert & oriented x 3 with fluent speech, no focal motor/sensory deficits, gait normal, reflexes normal and symmetric Skin: skin color, texture, turgor are normal, no rashes or significant lesions ASSESSMENT: Hospital discharge follow-up (Primary) - DISCH MED RECON CUR MED LIS History of TIA (transient ischemic attack) Paroxysmal atrial fibrillation (HCC) Coronary artery disease involving shoshone-bannock coronary artery of shoshone-bannock heart without angina pectoris Acquired hypothyroidism Other orders - Atorvastatin Calcium 20 MG Oral Tablet (Lipitor); Take 1 Tablet by mouth in the morning. - Metoprolol Succinate ER 25 MG Oral Tablet Extended Release 24 Hour (toPROL XL); Take 1 Tablet by mouth in the morning. PLAN: Continue present medication(s): Follow up as needed. I spent a total of 40-54 minutes (exact time 42 mins) minutes on the date of service in preparation, delivery, and documentation of the care provided to Guido Daley excluding any time spent in performance of separately billed services. Dewayne Pena MD documented in this encounter Nursing Notes * Shavonne Alas LPN - 10/16/2023 3:20 PM EDT The patient has been properly identified by confirmation of name and date of . Chief Complaint Patient presents with Hospital Follow-Up Pt here for hospital follow up documented in this encounter Plan of Treatment Upcoming Encounters Date Type Department Care Team (Late st Contact Info) Description 10/29/2023 11:20 AM EDT Office Visit Neurology [facility] [address] [facility] [place] [address] Izzy Diggs PA-C [address] [facility] [place] [address] 01/18/2024 2:30 PM EDT Office Visit Cardiology, [facility] [address] [place] [address] Mike Graves DO [address] [place] [address] 03/21/2024 1:20 PM EDT Office Visit Family Practice [facility] [address] [place] [address] Dewayne Pena MD [address] [place] [address] 04/15/2024 10:40 AM EDT Office Visit Dermatology [facility] [address] [place] [phone] Jonnathan House PA-C [address] [place] [address] 10/07/2024 1:00 PM EDT Office Visit Rheumatology [address] [place] [address] Timo Guzman MD [address] [place] [address] [place] [address] Health Maintenance Due Date Last Done Comments [...] D LEVEL ONCE IN A LIFETIME-USE SMARTSET# [id number] Completed 11/03/2022, 11/20/2018 Influenza Vaccine (FLU shot) [...] this encounter Medical Devices Implanted Type Area Truck Repair Service Estimator Device Identifier Shelf Expiration Date Model / Serial / Lot Cath Thermodilution 6fr - [id number] Implanted:Qty: 1 on 03/07/2023 by Armando Beltran MD at [facility] [place] [employer] [place] [id number] 10/10/2024 [id number] / / [id number] Valve Aortic Transcath Fx 34mm - [id number] Implanted:Qty: 1 on 05/03/2023 by Armando Beltran MD at [facility] [place] [employer] [id number] 08/10/2024 EVOLUTFX- 34 / [id number] / [id number] documented as of this encounter Visit Diagnoses Diagnosis Hospital discharge follow-up- Primary Other follow-up examination History of TIA (transient ischemic attack) Transient ischemic attack (TIA), and cerebral infarction without residual deficits Paroxysmal atrial fibrillation (HCC) Atrial fibrillation Coronary artery disease involving shoshone-bannock coronary artery of shoshone-bannock heart without angina pectoris Acquired hypothyroidism Unspecified hypothyroidism documented in this encounter Advance Directives Documents on File Type Date Recorded 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
--- OUTSIDE RECORDS SUMMARY | 2023-10-21 23:41 | External Medical Summary | Summary of Care ---
Author Name Unknown Organization [facility] Address [address] [place] [address] Phone [phone] Care Team Providers Care Operations/Dispatch Name Role Phone Dewayne Pena MD Primary Care Provider [phone] Reason for Visit * Reason Onset Date Comments Follow Up 10/10/2023 Encounter Details Date Type Department Care Team (Late st Contact Info) Description 10/10/2023 Telephone Cardiology, [place] [address] [facility] [place], [place] [id number] [facility] [address] [facility] [place] [phone] Follow Up (/) Allergies No known active allergiesdocumented as of this encounter (statuses as of 10/17/2023) Medications Medication Sig Dispensed Refills Start Date [...] daily with dinner. 90 Tablet 3 09/27/2023 10/10/2023 Discontinued (Medication/ Dose Changed) Apixaban 5 MG Oral Tablet (Eliquis) Take 1 Tablet by mouth in the morning and 1 Tablet before bedtime. 60 Tablet 5 10/10/2023 10/16/2023 Discontinued (Discharged) documented as of this encounter (statuses as of 10/17/2023) Active Problems Problem Noted Date Diagnosed Date [...] disease) 05/20/2019 Coronary artery disease invo lving [place] coronary artery of curyung heart without angina pectoris 03/24/2019 Nonrheumatic mitral valve stenosis 03/24/2019 H/O Hodgkin's lymphoma 07/05/2018 Acquired hypothyroidism 07/05/2018 documented as of this encounter (statuses as of 10/17/2023) Resolved Problems Problem Noted Date Diagnosed Date [...] below) BCC R forehead 2008 ([facility]) Prediabetes 02/28/2021 02/01/2023 Overview: Per Prediabetes protocol Moderate protein malnutrition 12/15/2019 03/14/2023 Ankylosing spondylitis of cervical region 12/15/2019 07/07/2022 Moderate aortic stenosis 03/24/2019 H/O atrial fibrillation with out current medication 07/05/2018 03/14/2023 documented as of this encounter (statuses as of 10/17/2023) Immunizations Name Administration Dates Next Due COVID-19 [...] encounter Miscellaneous Notes * Telephone Encounter - Emily Clancy, [facility] - 10/12/2023 4:21 PM EDT Spoke with patient. He is over income for both [employer] and [employer] PAP program. I offered warfarin as alternative and he declines and is able to pay for Eliquis. I did suggest he look into a different Rx plan during open enrollment this fall to try to help withcost Emily Clancy Pharm D Clinical [facility] Pharmacist Cardiology 10/12/2023,4:22 PM * Telephone Encounter - Kelly Tran OSA - 10/12/2023 3:33 PM EDT Pt returning missed call. He is available anytime at [phone] for a call back. Thank you. * Telephone Encounter - Emily Clancy RP - 10/12/2023 9:08 AM EDT Contacts Type Contact Phone/Fax 10/12/2023 09:08 AM EDT Phone (Outgoing) Guido Daley (Self) [phone] (M) Left Message 10/12/2023 02:14 PM EDT Phone (Outgoing) Guido Daley (Self) [phone] (M) Left Message Tried to reach pt, went straight to VM. Left message my also sent Emily Clancy Pharm D Clinical [facility] Pharmacist Cardiology 10/12/2023,9:08 AM * Telephone Encounter - Mike Graves DO - 10/11/2023 6:14 PM EDT Patient already discharged on Xarelto. Ms Clancy, can you reach out to him by phone and follow up? Mike Graves DO * Telephone Encounter - Emily Clancy RPh - 10/10/2023 11:58 AM EDT Called pharmacy. Patient paid $545 for Xarelto 90 day supply at last fill. Patients insurance does cover Eliquis without a prior auth; copay is $288 for 30 day supply I carter recommend screening patient for PACENET. If he meets income guidelines he should apply GISELE as this would greatly reduce cost of Eliquis. Dr Graves---if patient is still admitted, can you review the below with him? If not, I can call him. Just let me know PACE/PACENET Prescription Assistance Program (Program of All-Inclusive Care for the Elderly) [facility] prescription assistance programs for older adults offer low-cost prescription medication to qualified residents, age 65 and older. This is a free program. There is no cost to apply. Call to apply. If you do not qualify, please reach out to our office so we can investigate other options for you. PACE Income Limits: Single: $33,500 : $41,500 * Telephone Encounter - Emily Clancy RPh - 10/10/2023 11:14 AM EDT ----- Message from Mike Graves DO sent at 10/09/2023 6:33 PM EDT ----- Regarding: Benigno Diaz, Mr Daley is Currently hospitalized at [facility] for a TIA episode. MRI showed no new stroke. Since his recent transcatheter aortic valve replacement he had been seen by Denny Fuentes of EP at [facility] and a recent Zio patch monitor had revealed paroxysmal atrial fibrillation. He had previously been on Eliquis, and it was attempted to place him back on Eliquis, but ultimately ended up on Xarelto as the Eliquis was 4 times more expensive per his formulary. As noted, he is now hospitalized here with a TIA despite aspirin plus Xarelto. He had already askedabout transitioning back to Eliquis because he was concerned about leg swelling which he attributedto the Xarelto (I think likely unrelated to Xarelto) but now I do think we have a good reason to transition him back to Eliquis as he has hand a TIA episode while on Xarelto. Can you help me investigate whether or not there is anything we can do from a prior Auth standpointto justify transitioning him back to Eliquis with an affordable cost Padilla Polk documented in this encounter Plan of Treatment Upcoming Encounters Date Type Department Care Team (Late st Contact Info) Description 10/26/2023 2:00 PM EDT Office Visit Cardiology, [facility] [address] [place] [address] Mike Graves, DO [address] [place] [address] 10/29/2023 11:20 AM EDT Office Visit Neurology [facility] [address] [facility] [place] [address] Izzy Diggs PA-C [address] [facility] [place] [address] 01/18/2024 2:30 PM EDT Office Visit Cardiology, [facility] [address] [place] [address] Mike Graves, DO [address] [place] [address] 03/21/2024 1:20 PM EDT Office Visit Family Practice [facility] [address] [place] [address] Dewayne Pena MD [address] [place] [address] 04/15/2024 10:40 AM EDT Office Visit Dermatology [facility] [address] [place] [phone] Jonnathan House PA-C [address] [place] [address] 10/07/2024 1:00 PM EDT Office Visit Rheumatology [place] [address] [place] [address] Timo Guzman MD [address] [place] [address] Health Maintenance Due Date Last Done Comments [...] D LEVEL ONCE IN A LIFETIME-USE SMARTSET# [id number] Completed 11/03/2022, 11/20/2018 Influenza Vaccine (FLU shot) [...] this encounter Medical Devices Implanted Type Area Break Off Worker Device Identifier Shelf Expiration Date Model / Serial / Lot Cath Thermodilution 6fr - [id number] Implanted:Qty: 1 on 03/07/2023 by Armando Beltran MD at [facility] [email or web address] [place] [id number] 10/10/2024 [id number] / / [id number] Valve Aortic Transcath Fx 34mm - [id number] Implanted:Qty: 1 on 05/03/2023 by Armando Beltran MD at [facility] [employer] [id number] 08/10/2024 EVOLUTFX- 34 / [id number] / [id number] documented as of this encounter Advance Directives Documents on File Type Date Recorded 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
--- OUTSIDE RECORDS SUMMARY | 2023-10-21 23:41 | External Medical Summary | Summary of Care ---
Author Name Unknown Organization [facility] Address [address] [facility] [place] [address] Phone [phone] Care Team Providers Care Combustion Analyst Name Role Phone Dewayne Pena MD Primary Care Provider [phone] Encounter Details Date Type Department Care Team (Late st Contact Info) Description 10/11/2023 Telephone Cardiology, [facility] [address] [place] [address] Jayna Whitaker CRNP [address] [place] [address] Allergies No known active allergiesdocumented as of [...] disease) 05/20/2019 Coronary artery disease invo lving [place] coronary artery of [place] heart without angina pectoris 03/24/2019 Nonrheumatic mitral [...] prior, see below) BCC R forehead 2008 ([facility]) Prediabetes 02/28/2021 02/01/2023 Overview: Per Prediabetes [...] MCG/0.3 mL, 12 YRS AND ABOVE, IM ([employer] [facility]) 03/27/2023 COVID-19, mRNA, LNP-s, PF, B ooster, [...] encounter Miscellaneous Notes * Telephone Encounter - Eladio Jiang OSA - 10/17/2023 8:47 AM EDT Patient has been scheduled on: Thursday October 26, 2023 Arrive by 1:45 PM Appt at 2:00 PM (30 min) Will call patient to let him know. * Telephone Encounter - Jayna Whitaker CRNP - 10/11/2023 2:01 PM EDT Need for Post hospital discharge follow up. Please arrange with Dr. Graves if possible, if not than any AP. Follow up needed within 4-6 weeks. FYI to provider that will be seeing him. Dr. Graves has started a conversation with Emily about potential switch to Eliquis. Re: TIA while on Xarelto, setting guidelines for failed therapy TIA Occlusion of left vertebral artery Elevated troponin Tachycardia (with hx of NSVT and A-fib) documented in this encounter Plan of Treatment Upcoming Encounters Date Type Department Care Team (Late st Contact Info) Description 10/26/2023 2:00 PM EDT Office Visit Cardiology, [facility] [address] [place] [address] Mike Graves, [address] [place] [address] 10/29/2023 11:20 AM EDT Office Visit Neurology [facility] [address] [facility] [place] [address] Izzy Diggs PA-C [address] [facility] [place] [address] 01/18/2024 2:30 PM EDT Office Visit Cardiology, [facility] [address] [place] [address] Mike Graves, [address] [place] [address] 03/21/2024 1:20 PM EDT Office Visit Family Practice [facility] [address] [place] [address] Dewayne Pena MD [address] [place] [address] 04/15/2024 10:40 AM EDT Office Visit Dermatology [facility] [address] [place] [phone] Jonnathan House PA-C [address] [place], [place] [phone] 10/07/2024 1:00 PM EDT Office Visit Rheumatology [facility] [address] [facility] [place] [address] Timo Guzman MD [address] [facility] [place] [address] Health Maintenance Due Date Last Done Comments [...] D LEVEL ONCE IN A LIFETIME-USE SMARTSET# [id number] Completed 11/03/2022, 11/20/2018 Influenza Vaccine (FLU shot) [...] this encounter Medical Devices Implanted Type Area Social Media Marketer Device Identifier Shelf Expiration Date Model / Serial / Lot Cath Thermodilution 6fr - [id number] Implanted:Qty: 1 on 03/07/2023 by Armando Beltran MD at [facility] [employer] [place]RISTYN [id number] 10/10/2024 [id number] / / [id number] Valve Aortic Transcath Fx 34mm - [id number] Implanted:Qty: 1 on 05/03/2023 by Armando Beltran MD at [facility] [employer] [id number] 08/10/2024 EVOLUTFX- 34 / [id number] / [id number] documented as of this encounter Advance Directives Documents on File Type Date Recorded 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
--- OUTSIDE RECORDS SUMMARY | 2023-10-21 23:41 | External Medical Summary | Summary of Care ---
Author Name Unknown Organization [facility] Address [address] [facility] [place] [address] Phone [phone] Care Team Providers Care Parasitology Teacher Name Role Phone Dewayne Pena MD Primary Care Provider +1 [phone] Encounter Details Date Type Department Care Team (Late st Contact Info) Description 10/11/2023 Telephone Cardiology, [facility] [address] [place] [address] Jayna Whitaker CRNP [address] [place] [address] Allergies No known active allergiesdocumented as of [...] 2013, Depth unknown, no SLN, Location R anabaptism PSVT (paroxysmal supraventricular tachycardia) 0 12/15/2019 Raynaud's disease without gangrene 06/02/2019 Esophageal dysmotility 05/20/2019 JULIUS (obstructive sleep apnea) 05/20/2019 ILD (interstitial lung disease) 05/20/2019 Coronary artery disease invo lving klawock coronary artery of klawock heart without angina pectoris 03/24/2019 Nonrheumatic mitral [...] 2013, Depth unknown, no SLN, Location R anabaptism (still no path in chart, pt confirmed that he had surgery for melanoma at that site and for BCC prior, see below) BCC R forehead 2008 ([facility]) Prediabetes 02/28/2021 02/01/2023 Overview: Per Prediabetes protocol [...] MCG/0.3 mL, 12 YRS AND ABOVE, IM ([employer]Comirnat[employer]o [employer]) 03/27/2023 COVID-19, mRNA, LNP-s, PF, B [...] Encounter - Eladio Jiang OSA - 10/17/2023 1:46 PM EDT Images from the original note were not included. Patient wrote back from the [employer] message: Guido [place] You3 minutes ago (1:42 PM) CK That time and day work perfectly for me. Guido * Telephone Encounter - Eladio Jiang OSA - 10/17/2023 1:38 PM EDT Sam for patient and also sent a MyG message as well. * Telephone Encounter - Eladio Jiang OSA [...] 10/26/2023 2:00 PM EDT Office Visit Cardiology, [facility] [address] [place] [address] Mike Graves, [address] [place] [address] 10/29/2023 11:20 AM EDT Office Visit Neurology [facility] [address] [place] [address] Izzy Diggs PA-C [address] [place] [address] 01/18/2024 2:30 PM EDT Office Visit Cardiology, [facility] [address] [place] [address] Mike Graves, [address] [place] [address] 03/21/2024 1:20 PM EDT Office Visit Family Practice [facility] [address] [place] [address] Dewayne Pena MD [address] [place] [address] 04/15/2024 10:40 AM EDT Office Visit Dermatology [facility] [address] [place] [address] Jonnathan House PA-C 68 [place], [place] [phone] 10/07/2024 1:00 PM EDT Office Visit Rheumatology [place] [address] [place] [address] Timo Guzman MD [facility] [employer] [place] [address] Health Maintenance Due Date Last Done Comments [...] D LEVEL ONCE IN A LIFETIME-USE SMARTSET# [id number] Completed 11/03/2022, 11/20/2018 Influenza Vaccine (FLU shot) [...] this encounter Medical Devices Implanted Type Area Home Health Cna Device Identifier Shelf Expiration Date Model / Serial / Lot Cath Thermodilution 6fr - [id number] Implanted:Qty: 1 on 03/07/2023 by Armando Beltran MD at [facility] [employer] KRISTYN [id number] 10/10/2024 [id number] / / [id number] Valve Aortic Transcath Fx 34mm - [id number] Implanted:Qty: 1 on 05/03/2023 by Armando Beltran MD at [facility] [place] [employer] [id number] 08/10/2024 EVOLUTFX- 34 / [id number] / [id number] documented as of this encounter Advance Directives Documents on File Type Date Recorded Patient Toe Former Stitchdowns Expl anation POL 03/06/2022 [place] OR DERS FOR LIFE-SUSTAINING TREATMENT POL 12/13/2021 [place] OR [facility] FOR LIFE-SUSTAINING TREATMENT Latest Code Status on [...] Direct lorenzo occurred with: Patient Care Teams Parasitology Teacher Relationship Specialty Start Date End Date Dewayne Pena MD [address] [place] [address] PCP - General Family Medicine 04/30/23 documented as of this encounter
--- OUTSIDE RECORDS SUMMARY | 2023-10-21 23:41 | External Medical Summary | Summary of Care ---
Author Name Unknown Organization [facility] Address [address] [facility] [place] [address] Phone [phone] Care Team Providers Care Correctional Corporal Name Role Phone Dewayne Pena MD Primary Care Provider +1 [phone] Encounter Details Date Type Department Care Team (Late st Contact Info) Description 10/11/2023 Telephone Cardiology, [facility] [address] [place] [address] Jayna Whitaker CRNP [address] [place] [address] Allergies No known active allergiesdocumented as of [...] disease) 05/20/2019 Coronary artery disease invo lving stillaguamish coronary artery of stillaguamish heart without angina pectoris 03/24/2019 Nonrheumatic mitral [...] MCG/0.3 mL, 12 YRS AND ABOVE, IM ([employer]-ComirnatRE[employer]) 03/27/2023 COVID-19, mRNA, LNP-s, PF, B ooster, [...] Sam for patient and also sent a [employer] message as well. * Telephone Encounter - [...] 10/26/2023 2:00 PM EDT Office Visit Cardiology, [facility] [address] [place] [address] Mike Graves, [address] [place] [address] 10/29/2023 11:20 AM EDT Office Visit Neurology [facility] [address] [facility] [place] [address] Izzy Diggs PA-C [address] [facility] [place] [address] 01/18/2024 2:30 PM EDT Office Visit Cardiology, [facility] [address] [place] [address] Mike Graves, [address] [place] [address] 03/21/2024 1:20 PM EDT Office Visit Family Practice [facility] [address] [place] [address] Dewayne Pena MD [address] [place] [address] 04/15/2024 10:40 AM EDT Office Visit Dermatology [facility] [address] [place] [address] Jonnathan House PA-C [address] [place], [place] [address] [address] 10/07/2024 1:00 PM EDT Office Visit Rheumatology [place] [address] [place] [address] Timo Guzman MD [address] [place] [address] Health Maintenance Due Date Last Done Comments [...] D LEVEL ONCE IN A LIFETIME-USE SMARTSET# [id number] Completed 11/03/2022, 11/20/2018 Influenza Vaccine (FLU shot) [...] encounter Medical Devices Implanted Type Area Medical Transcription Editor Device Identifier Shelf Expiration Date Model / Serial / Lot Cath Thermodilution 6fr - [id number] Implanted:Qty: 1 on 03/07/2023 by Armando Beltran MD at [facility] [employer] KRISTYN [id number] 10/10/2024 [id number] / / [id number] Valve Aortic Transcath Fx 34mm - [id number] Implanted:Qty: 1 on 05/03/2023 by Armando Beltran MD at [facility] [employer] [id number] 08/10/2024 EVOLUTFX- 34 / [id number] / [id number] documented as of this encounter Advance Directives Documents on File Type Date Recorded Patient Housing Inspectors Expl anation POLST 03/06/2022 [place] OR DERS FOR LIFE-SUSTAINING TREATMENT POLST 12/13/2021 [place] OR DERS FOR LIFE-SUSTAINING TREATMENT Latest Code [...] Direct lorenzo occurred with: Patient Care Teams Correctional Corporal Relationship Specialty Start Date End Date Dewayne Pena MD [address] [place] [address] PCP - General Family Medicine 04/30/23 documented as of this encounter
--- OUTSIDE RECORDS SUMMARY | 2023-10-21 23:41 | External Medical Summary | Summary of Care ---
Author Name Unknown Organization [facility] Address [address] [facility] [place] [address] Phone [phone] Care Team Providers Care Cheese Production Supervisor Name Role Phone Dewayne Pena MD Primary Care Provider [phone] [phone] Encounter Details Date Type Department Care Team (Late st Contact Info) Description 10/11/2023 Telephone Cardiology, [facility] [address] [place] [address] Jayna Whitaker CRNP [address] [place] [address] Allergies No known active allergiesdocumented as of [...] Tablet before bedtime. 60 Tablet 5 10/10/2023 Active documented as of this encounter (statuses [...] disease) 05/20/2019 Coronary artery disease invo lving teller coronary artery of teller heart without angina pectoris 03/24/2019 Nonrheumatic mitral [...] see below) BCC R forehead 2008 ([facility]) Prediabetes 02/28/2021 02/01/2023 Overview: Per [...] encounter Miscellaneous Notes * Telephone Encounter - Jayna Whitaker CRNP [...] Care Team (Late st Contact Info) Description 10/16/2023 3:20 PM EDT Office Visit Family Practice [facility] [address] [facility] [place] [address] Dewayne Pena MD 132 [facility] [place] [address] 10/29/2023 11:20 AM EDT Office Visit Neurology [facility] 200 [facility] [place] [address] Izzy Diggs PA-C 200 [facility] [place] [address] 01/18/2024 2:30 PM EDT Office Visit Cardiology, [facility] [address] [facility] [place] [address] Mike Graves DO 132 [facility] [place] [address] 03/21/2024 1:20 PM EDT Office Visit Family Practice [facility] 132 [facility] [place] [address] Dewayne Pena MD 132 [facility] [place] [address] 04/15/2024 10:40 AM EDT Office Visit Dermatology [facility] [address] [place] [phone] Jonnathan House PA-C [address] [place] [address] 10/07/2024 1:00 PM EDT Office Visit Rheumatology [address] [place] [address] Timo Guzman MD [facility] [place] [address] Health Maintenance Due Date Last Done Comments [...] D LEVEL ONCE IN A LIFETIME-USE SMARTSET# [id number] Completed 11/03/2022, 11/20/2018 Influenza Vaccine (FLU shot) [...] this encounter Medical Devices Implanted Type Area Nurses Educator Device Identifier Shelf Expiration Date Model / Serial / Lot Cath Thermodilution 6fr - [id number] Implanted:Qty: 1 on 03/07/2023 by Armando Beltran MD at [facility] [employer] [place] [id number] 10/10/2024 [id number] / / [id number] Valve Aortic Transcath Fx 34mm - [id number] Implanted:Qty: 1 on 05/03/2023 by Armando Beltran MD at [facility] [employer] [id number] 08/10/2024 EVOLUTFX- 34 / [id number] / [id number] documented as of this encounter Advance Directives Documents on File Type Date Recorded Patient Canteen Manager Expl anation POLST 03/06/2022 [place] OR DERS [...] Direct lorenzo occurred with: Patient Care Teams Cheese Production Supervisor Relationship Specialty Start Date End Date Dewayne Pena MD [address] [facility] [place] [address] PCP - General Family Medicine 04/30/23 documented as of this encounter
--- OUTSIDE RECORDS SUMMARY | 2023-10-21 23:42 | External Medical Summary | Summary of Care ---
Author Name Unknown Organization [facility] Address [address] [place] [address] Phone [phone] Care Team Providers Care Director Educational Radio Name Role Phone Dewayne Pena MD Primary Care Provider +1 [phone] Encounter Details Date Type Department Care Team (Late st Contact Info) Description 10/10/2023 Telephone Cardiology, [place] [address] [facility] [place] [phone] [facility] [address] [facility] [place] [phone] Allergies No known active allergiesdocumented as of this encounter (statuses as of 10/12/2023) Medications Medication Sig Dispensed Refills Start Date [...] before bedtime. 60 Tablet 5 10/10/2023 Active Rivaroxaban 20 MG Oral Tablet (Xarelto) Take 1 Tablet by mouth daily with dinner. 90 Tablet 3 09/27/2023 10/10/2023 Discontinue d(Medicatio n/Dose Changed) documented as of this encounter (statuses as of 10/12/2023) Active Problems Problem Noted Date Diagnosed Date Paroxysmal atrial fibrillation 09/14/2023 1st degree AV block 05/05/2023 S/P TAVR (transcatheter aortic valve replacement ) 05/03/2023 BMI less than 19,adult 03/16/2023 Senile osteoporosis 09/28/2022 Protein-calorie malnutrition 07/07/2022 Neuromuscular disorder 07/07/2022 PHT (pulmonary hypertension) 06/02/2021 Hx of melanoma of skin 03/24/2021 Overview: Hx MM date 2013, Depth unknown, no SLN, Location R mandaen PSVT (paroxysmal supraventricular tachycardia) 0 12/15/2019 Raynaud's disease without gangrene 06/02/2019 Esophageal dysmotility 05/20/2019 JULIUS (obstructive sleep apnea) 05/20/2019 ILD (interstitial lung disease) 05/20/2019 Coronary artery disease invo lving nikolai coronary artery of nikolai heart without angina pectoris 03/24/2019 Nonrheumatic mitral valve stenosis 03/24/2019 H/O Hodgkin's lymphoma 07/05/2018 Acquired hypothyroidism 07/05/2018 documented as of this encounter (statuses as of 10/12/2023) Resolved Problems Problem Noted Date Diagnosed Date Resolved Date Osteoporotic fracture of left hip 09/28/2022 03/14/2023 Aortic root enlargement 07/07/202204/19 Sinus tachycardia 03/16/2022 03/14/2023 Hx of nonmelanoma skin cancer 03/24/2021 05/14/2023 Overview: Hx MM date 2013, Depth unknown, no SLN, Location R mandaen (still no path in chart, pt confirmed that he had surgery for melanoma at that site and for BCC prior, see below) BCC R forehead 2008 ([facility]) Prediabetes 02/28/2021 02/01/2023 Overview: Per Prediabetes protocol Moderate protein malnutrition 12/15/2019 03/14/2023 Ankylosing spondylitis of cervical region 12/15/2019 07/07/2022 Moderate aortic stenosis 03/24/2019 H/O atrial fibrillation with out current medication 07/05/2018 03/14/2023 documented as of this encounter (statuses as of 10/12/2023) Immunizations Name Administration Dates Next Due COVID-19 mRNA, LNP-s, No Pre serve, 2-Dose Series (Moderna) 08/21/2020,07/17/2020 COVID-19, MRNA-LNP, 23-24, P F, 30 MCG/0.3 mL, 12 YRS AND ABOVE, IM ([employer]-ComirnatMedi[employer]raft Türkiye) 03/27/2023 COVID-19, mRNA, LNP-s, PF, B ooster, 100mcg/0.5mg (Moderna) 10/13/2021,04/13/2021 Covid-19, Mrna, Lnp-s, Pf, B ivalent, 30 Mcg, IM, 12 yrs and above (TurningArt) 11/09/2022,03/10/2022 PPD 12/29/2020,12/24/2018,12/03/2018 Pneumococcal Conjugate Vacc, 13 [...] Notes * Telephone Encounter - Emily Clancy, [facility] - 10/12/2023 4:21 PM EDT Spoke with patient. He is over income for both [employer] and [employer] PAP program. I offered warfarin as alternative and he declines and is able to pay for Eliquis. I did suggest he look into a different Rx plan during open enrollment this fall to try to help withcost Emily Clancy Pharm D Clinical [facility] Pharmacist Cardiology 10/12/2023,4:22 PM * Telephone Encounter - Kelly Tran OSA - 10/12/2023 3:33 PM EDT Pt returning missed call. He is available anytime at [phone] for a call back. Thank you. * Telephone Encounter - Emily Clancy [facility] - 10/12/2023 9:08 AM EDT Contacts Type Contact Phone/Fax 10/12/2023 09:08 AM EDT Phone (Outgoing) Guido Daley (Self) [phone] (M) Left Message 10/12/2023 02:14 PM EDT Phone (Outgoing) Guido Daley (Self) [phone] (M) Left Message Tried to reach pt, went straight to VM. Left message [facility] also sent Emily Clancy Pharm D Clinical [facility] Pharmacist Cardiology 10/12/2023,9:08 AM * Telephone Encounter [...] (Program of All-Inclusive Care for the Elderly) [facility] prescription assistance programs for older adults offer [...] Diaz, Mr Daley is Currently hospitalized at [facility] for a TIA episode. MRI showed no new stroke. Since his recent transcatheter aortic valve replacement he had been seen by Denny Fuentse of EP at [facility] and a recent Zio patch monitor had [...] 3:20 PM EDT Office Visit Family Practice [facility] [address] [place] [address] Dewayne Pena MD [address] [place] [address] 10/29/2023 11:20 AM EDT Office Visit Neurology [facility] 200 [facility] [place] [address] Izzy Diggs PA-C 200 [facility] [place] [address] 01/18/2024 2:30 PM EDT Office Visit Cardiology, [facility] [address] [place] [address] Mike Graves DO [address] [place] [address] 03/21/2024 1:20 PM EDT Office Visit Family Practice [facility] [address] [place] [address] Dweayne Pena MD [address] [place] [address] 04/15/2024 10:40 AM EDT Office Visit Dermatology [facility] 68 [place] [address] Jonnathan House PA-C 68 [place], [place] [address] 10/07/2024 1:00 PM EDT Office Visit Rheumatology [address] [place] [address] Timo Guzman MD [address] [place] [address] [place] [address] Health Maintenance Due Date Last Done Comments [...] D LEVEL ONCE IN A LIFETIME-USE SMARTSET# [id number] Completed 11/03/2022, 11/20/2018 Influenza Vaccine (FLU shot) [...] this encounter Medical Devices Implanted Type Area Postdoctoral Scientist Device Identifier Shelf Expiration Date Model / Serial / Lot Cath Thermodilution 6fr - [id number] Implanted:Qty: 1 on 03/07/2023 by Armando Beltran MD at [facility] [employer] K[place]STYN [id number] 10/10/2024 [id number] / / [id number] Valve Aortic Transcath Fx 34mm - [id number] Implanted:Qty: 1 on 05/03/2023 by Armando Beltran MD at [facility] [employer] [id number] 08/10/2024 EVOLUTFX- 34 / [id number] / [id number] documented as of this encounter Advance Directives Documents on File Type Date Recorded Patient Intelligence Analyst Expl anation POLST 03/06/2022 [place] OR DERS [...] Direct lorenzo occurred with: Patient Care Teams Director Educational Radio Relationship Specialty Start Date End Date Dewayne Pena MD [address] [place] [address] PCP - General Family Medicine 04/30/23 documented as of this encounter
[2023-10-22 07:52] LABS: Hematocrit (blood only) 37.4 % (42.0-52.0); Hemoglobin 12.5 g/dl (14.0-18.0); Mean Corpuscular Hgb Conc 33.4 g/dL (32.0-36.0); Mean Corpuscular Volume 101.6 fL (80.0-100.0); Mean Platelet Volume 11.9 fL (9.4-12.4); Platelet Count 322 K/uL (130-400); RDW Coefficient of Variation 15.3 % (11.5-14.5); RDW Standard Deviation 57.1 fL (36.4-46.3); Red Blood Count 3.68 M/uL (4.70-6.10); White Blood Count 10.77 K/ul (4.8-10.8)
[2023-10-22 07:55] LABS: Calcium 8.9 mg/dl (8.6-10.3); Creatinine Clr Calc Pharmacy 86.9 ml/min; Est GFR (Non-African American) 94.1 ml/min; Magnesium 1.9 mg/dl (1.7-2.4)
[2023-10-22] MEDS: METOPROLOL SUCC 25MG EXT REL TAB PO SCH (08:11)
[2023-10-22] MEDS: METOPROLOL TARTRATE 1 MG/ML VIAL IV PRN (08:40)
--- NOTE | 2023-10-22 08:54 | Cardiology Progress Note ---
Date of Service October 22, 2023 Assessment & Plan (1) PAF (paroxysmal atrial fibrillation): (2) Elevated troponin: (3) Interstitial lung disease: (4) Status post transcatheter aortic valve replacement (TAVR) using bioprosthesis: (5) Nonobstructive atherosclerosis of coronary artery: (6) S/P ablation of atrial flutter: (7) S/P ablation of atrial fibrillation: (8) Mitral regurgitation: Plan Paroxysmal atrial fibrillation with a rapid ventricular response. History of PVI in 05/2017. Echo in September 2023 with a severely enlarged left atrium. + Underlying interstitial lung disease (radiation for Hodgkins lymphoma at age 27) and obstructive sleep apnea - IV Lopressor now. - Increase oral metoprolol succinate. - Continue Eliquis anticoagulation. Tachy-Bradycardia Syndrome. - No high degree AV block noted on telemetry thus far this admission. - Continue telemetry monitoring. - Patient will likely require permanent pacemaker implantation at some point, possibly even AV tod ablation. Heart failure with preserved ejection fraction. - Volume status is compensated. - Received IV furosemide this AM. - Hold IV furosemide for now. Severe aortic stenosis. - Status post TAVR, #34mm Medtronic Evolut FX Aortic Valve on 05/03/2023. - Postoperative LBBB, resolved. Mild nonobstructive CAD-- 40% pLAD stenosis and 40% RCA per pre TAVR cath 02/2023 Atrial flutter status post tricuspid isthmus ablation, 2013 Admission and Anticipated Discharge Date Admission Date: October 20, 2023 Supervising Physician Co-Signing Physician Notes I have reviewed the advance practitioner's documentation, and I agree with, and take responsibility for the plan of care. I have personally performed a history and physical examination on the patient. Patient seen and personally examined. Once again lapsed into atrial fibrillation then later spontaneously converted to sinus rhythm after doses of IV metoprolol Believe patient warrants a trial of antiarrhythmic therapy. Amiodarone contraindicated given underlying interstitial lung disease Will begin sotalol follow EKGs and telemetry LV systolic function and renal function normal Subjective Patient seen and examined. Chart, medications, and telemetry reviewed. Sinus with ectopy until 08:21 this AM at which time he felt faint, with chest fluttering, while sitting in the bedside chair, lapsing into atrial fibrillation with a rapid ventricular response. Review of Systems Review of Systems: Complete Review of Systems is as stated above, negative, or noncontributory. Physical Exam Physical Exam: General: A&Ox3. NAD. HENT: Normocephalic. Atraumatic. Eyes: PER. Conjunctiva pink, sclera clear. Neck: No JVD. Heart: Irregularly irregular, 130 bpm. Apical systolic murmur. No rub. Lungs: Diminished. Dry crackles. Abdomen: +BS. Soft. Nontender. No masses or organomegaly. Extremities: No clubbing, cyanosis, or edema. Limited neurological examination is without focal deficits. Pulses: Posterior tibial=2/4. Results & Data Vital Signs (Past 12 Hours) Vital Signs Temp Pulse Pulse Resp BP BP Pulse Ox 10/22/23 08:45 140 H 110/77 10/22/23 08:40 167 H 109/73 10/22/23 08:02 36.2 C L 108 H 20 110/78 91 10/22/23 02:45 36.6 C 84 18 120/70 94 10/22/23 00:00 89 10/21/23 22:57 36.5 C 88 18 124/69 95 O2 Del Method 10/22/23 08:45 10/22/23 08:40 10/22/23 08:02 Room Air 10/22/23 02:45 Room Air 10/22/23 00:00 10/21/23 22:57 Room Air Laboratory Results CBC 10/22/23 Range/Units 07:01 WBC 10.77 (4.8-10.8) K/ul RBC 3.68 L (4.70-6.10) M/uL Hgb 12.5 L (14.0-18.0) g/dl Hct 37.4 L (42.0-52.0) % Plt Count 322 (130-400) K/uL Comprehensive Metabolic Panel 10/21/23 10/22/23 Range/Units 05:45 07:01 Sodium 143 140 (136-145) mmol/L Potassium 4.1 4.0 (3.5-5.1) mmol/L Chloride 98 96 L (98-107) mmol/L Carbon Dioxide 37 H 38 H (21-32) mmol/L BUN 18 17 (6-23) mg/dl Creatinine 0.76 0.68 (0.6-1.4) mg/dl Glucose 102 H 110 H (70-99(Fasting)) mg/dl Calcium 8.9 8.9 (8.6-10.3) mg/dl Intake and Output 10/21/23 10/22/23 10/22/23 22:59 06:59 14:59 Intake Total 780 / 1130 250 / 1130 Balance 780 / 1130 250 / 1130 Intake: IV 100 / 300 100 / 300 Piperacillin/Tazobactam 4.5 gm 100 / 300 100 / 300 In Dextrose 5% Mini-B 100 ml @ 25 mls/hr IV Q8H [facility] Rx#: [id number] Oral 680 / 830 150 / 830 Other: # Unmeasured Voids 4 1 Weight 64.5 kg Diagnostic Findings Resting echocardiography in September 2022 revealed preserved LV systolic function, EF 55 to 60%, with mild concentric LVH, severely dilated left atrium, severe pulmonary hypertension with estimated pulmonary artery systolic pressure 61 mmHg. TAVR without significant prosthetic regurgitation, normal gradients
[2023-10-22] MEDS: SODIUM CHLORIDE 0.9% 500 ML IV SCH (09:00)
[2023-10-22] MEDS ORDERED: 0.2 MICRON FILTER SET 1 EACH IV STA (09:31)
[2023-10-22] MEDS ORDERED: STAT IV Infusion **Titration per Protocol STA (09:31)
[2023-10-22] MEDS ORDERED: AMIODARONE IV BOLUS & DRIP IV STA (09:31)
[2023-10-22] MEDS: AMIODARONE / D5W 360 MG/200 ML BAG IV ONE (10:31)
[2023-10-22] MEDS: AMIODARONE / D5W 150 MG/100 ML BAG IV STA (12:29)
[2023-10-22] MEDS ORDERED: AMIODARONE / D5W 360 MG/200 ML BAG IV SCH (15:45)
--- NOTE | 2023-10-22 15:53 | Hospitalist Progress Note ---
Date of Service October 22, 2023 Assessment & Plan (1) Atrial fibrillation with rapid ventricular response: Plan 73-year-old male with PMH of PAF on Xarelto, status post TAVR on 05/03/2023 followed by cardiac rehab, ILD, positive NEREYDA, pulmonary hypertension, Raynaud's, JULIUS, esophageal dysmotility Hodgkin's lymphoma status post radiation to the chest 45 years ago, recurrent aspiration, myositis, bronchiectasis presented to the ED 10/19 with A-fib RVR. Also he reported recent "cold symptoms" including nonproductive cough, nasal congestion prior to arrival. He is being managed for the following: Acute Heart failure with preserved ejection fraction: Patient presented with worsening CLANCY, exercise intolerance, weight gain, nonproductive cough. 10/09/23 echo with EF of 55 to 60%, left atrium is severely dilated, left ventricular systolic function normal, no regional wall motion abnormalities noted. Chest imaging with pulmonary congestion and elevated BNP noted. Cardiology on board, managing diuresis. currently on hold. Monitor replete electrolytes. Strict I's and O's, low-sodium diet. Possible aspiration pneumonia: Given history of recurrent aspiration and esophageal dysmotility. Admitting chest imaging with increased RLL opacity, on exam increased RLL crackles. MRSA screen negative. Zosyn given empirically given recent hospitalization and h/o bronchiectasis (pseudomonas risk factors) and anaerobe coverage. Follow admitting blood culture and sputum culture. Patient started on Zosyn 10/19, continue for now. Patient reports improving hemoptysis. He continues with aspiration precautions and slippery diet and was recently evaluated by speech as inpatient with diet recs given. A-fib with RVR and demand ischemia: Known h/o PAF. RVR may have been precipita benigno from the pulmonary edema or this possible pneumonia at presentation. TSH WNL. Patient reports associated chest pain/palpitation/shortness of breath with A-fib RVR episodes. Troponin mostly in 50s, likely secondary to A-fib RVR. Had afib rvr in AM requiring multiple iv metoprolol and ivf. Cardiology on board, on sotalol today. Continue with home Eliquis. Other chronic medical conditions: Continue with/resume home meds as and when able. Mobitz type II AV block: Per history Protein calorie malnutrition: Likely related to underlying myositis which is still being worked up [place] [facility] [place] Nutrition consult while admitted for monitoring. Pulmonary hypertension: Per history. Continue CPAP. Treat underlying heart failure. Sees Dr. Ash ledezma. Interstitial lung disease: Per history. DVT prophylaxis: Apixaban Full code Dispo: PT/OT, CM to assist with DC plan. Admission and Anticipated Discharge Date Admission Date: October 20, 2023 Subjective Patient was seen and examined at bedside. Patient was lying in bed, on room air, NAD, resting comfortably. Patient had episode of A-fib with RVR requiring multiple IV metoprolol. IV fluid was also started, patient reported improvement in his symptoms of chest pressure and dizziness. Discussed with cardiology, plan to put him on sotalol. Otherwise patient denies other complaints. Physical Exam Physical Exam: GENERAL: Alert and oriented x3. NAD, on RA. Appears weak/frail/thin. HEENT: No pallor, no icterus. Pupils equal, round and reactive to light. Oral mucosa moist. NECK: No JVD, no neck masses. HEART: S1 and S2 heard. irregular rate and rhythm. rate in 120s to 140s. No murmur, no gallop. RESPIRATORY SYSTEM: Normal AP diameter. No accessory muscle use. No wheezing, RLL crackles > LLL. ABDOMEN: Soft, bowel sounds present, nontender, no distention. CENTRAL NERVOUS SYSTEM: No facial droop. Speech is clear. Obeys simple commands. Moves extremities. EXTREMITIES: No edema, no erythema seen. Results & Data Results & Data Vital Signs (Past 12 Hours) Vital Signs Temp Pulse Pulse Resp BP BP Pulse Ox 10/22/23 14:07 36.4 C L 85 20 114/56 L 91 10/22/23 14:00 10/22/23 11:12 36.3 C L 81 17 93/58 L 93 10/22/23 10:15 82 103/54 L 10/22/23 10:14 82 103/54 L 10/22/23 10:04 82 103/54 L 10/22/23 09:05 128 H 104/75 10/22/23 08:50 151 H 109/79 10/22/23 08:45 140 H 110/77 10/22/23 08:40 167 H 109/73 10/22/23 08:02 36.2 C L 108 H 20 110/78 91 O2 Del Method O2 Del Method 10/22/23 14:07 Room Air 10/22/23 14:00 Room Air 10/22/23 11:12 Room Air 10/22/23 10:15 10/22/23 10:14 10/22/23 10:04 10/22/23 09:05 10/22/23 08:50 10/22/23 08:45 10/22/23 08:40 10/22/23 08:02 Room Air
[2023-10-22] MEDS ORDERED: METOPROLOL SUCC 25MG EXT REL TAB PO SCH (21:00)
[2023-10-22] MEDS: SOTALOL HCL 80 MG TAB PO SCH (21:11)
--- NOTE | 2023-10-22 22:15 | Electrocardiogram Report ---
Test Reason : Blood Pressure : / mmHG Vent. Rate : 091 BPM Atrial Rate : 091 BPM P-R Int : 190 ms QRS Dur : 086 ms QT Int : 388 ms P-R-T Axes : 066 040 033 degrees QTc Int : 477 ms Normal sinus rhythm Right atrial enlargement Borderline ECG When compared with ECG of 21-OCT-2023 09:22, Premature atrial complexes are no longer Present Confirmed by Mane Stevenson ([id number]) on 10/22/2023 10:15:06 PM Referred By: REFERRED SELF Confirmed By:Mane Stevenson
--- NOTE | 2023-10-22 22:27 | Electrocardiogram Report ---
Test Reason : Blood Pressure : / mmHG Vent. Rate : 162 BPM Atrial Rate : 163 BPM P-R Int : 000 ms QRS Dur : 090 ms QT Int : 282 ms P-R-T Axes : 000 027 139 degrees QTc Int : 462 ms Atrial fibrillation with rapid ventricular response Nonspecific ST and T wave abnormality Abnormal ECG When compared with ECG of 22-OCT-2023 06:06, Atrial fibrillation has replaced Sinus rhythm Vent. rate has increased BY [address] now depressed in Lateral leads Confirmed by Mane Stevenson ([id number]) on 10/22/2023 10:26:44 PM Referred By: REFERRED SELF Confirmed By:Mane Stevenson
--- NOTE | 2023-10-22 22:57 | Electrocardiogram Report ---
Test Reason : Blood Pressure : / mmHG Vent. Rate : 080 BPM Atrial Rate : 080 BPM P-R Int : 186 ms QRS Dur : 088 ms QT Int : 398 ms P-R-T Axes : 077 024 052 degrees QTc Int : 459 ms Normal sinus rhythm Normal ECG When compared with ECG of 22-OCT-2023 08:42, Sinus rhythm has replaced Atrial fibrillation Vent. rate has decreased BY [address] no longer depressed in Lateral leads Confirmed by Mane Stevenson ([id number]) on 10/22/2023 10:56:46 PM Referred By: REFERRED SELF Confirmed By:Mane Stevenson
[2023-10-23] MEDS: MAGNESIUM SULFATE / D5W 1 GM/100 ML BAG IV SCH (08:20)
--- NOTE | 2023-10-23 11:48 | Cardiology Progress Note ---
Date of Service October 23, 2023 Assessment & Plan (1) PAF (paroxysmal atrial fibrillation): (2) Elevated troponin: (3) Interstitial lung disease: (4) Status post transcatheter aortic valve replacement (TAVR) using bioprosthesis: (5) Nonobstructive atherosclerosis of coronary artery: (6) S/P ablation of atrial flutter: (7) S/P ablation of atrial fibrillation: (8) Mitral regurgitation: Plan Paroxysmal atrial fllutter and fibrillation with a rapid ventricular response. - Status post tricuspid isthmus ablation, 2013 - Status post PVI in 05/2017. - Echo in September 2023 with a severely enlarged left atrium. - Underlying interstitial lung disease (radiation for Hodgkins lymphoma at age 27) and obstructive sleep apnea - Sotalol initiated on October 22, 2023, first dose at 21:11 - EKG on October 23, 2023 at 08:13:47 revealed normal sinus rhythm at 81 bpm with a QTc of 466 ms. - EKG on October 23, 2023 at 10:28:12 revealed normal sinus rhythm at 77 bpm with a QTc of 475 ms. - Continue Sotalol loading, 40 mg BID - Continue Eliquis anticoagulation. Tachy-Bradycardia Syndrome. - No high degree AV block noted on telemetry thus far this admission. - Continue telemetry monitoring. Heart failure with preserved ejection fraction. - Volume status is compensated. - Discontinue IV furosemide Severe pulmonary hypertension Severe aortic stenosis. - Status post TAVR, #34mm Medtronic Evolut FX Aortic Valve on 05/03/2023. - Postoperative LBBB, resolved. Mild nonobstructive CAD-- 40% pLAD stenosis and 40% RCA per pre TAVR cath 02/2023 Admission and Anticipated Discharge Date Admission Date: October 20, 2023 Supervising Physician Co-Signing Physician Notes Patient was seen and personally examined. Full assessment and plan as outlined above discussed with advanced provider and fully endorsed. No further atrial fibrillation overnight with patient tolerating sotalol without QT prolongation or bradycardia arrhythmias. Patient ambulatory in room Maintain telemetry at least an additional 24 hours. Daily EKG I spent a total of 20 minutes on the date of service in preparation, delivery, and documentation of the care provided to this patient excluding any time spent in the performance of separately billed services. Subjective Patient seen and examined. Chart, medications, telemetry reviewed. No chest pain, palpitations, or worsening shortness of breath. Sotalol initiated on October 22, 2023, with first dose at 21:11 EKG on October 23, 2023 at 08:13:47 revealed normal sinus rhythm at 81 bpm with a QTc of 466 ms. EKG on October 23, 2023 at 10:28:12 revealed normal sinus rhythm at 77 bpm with a QTc of 475 ms. Telemetry: PAT/PAF last at 19:48 on October 22, 2023. Currently sinus with ectopy in the 80s. Review of Systems Review of Systems: Complete Review of Systems is as stated above, negative, or noncontributory. Physical Exam Physical Exam: General: A&Ox3. NAD. HENT: Normocephalic. Atraumatic. Eyes: PER. Conjunctiva pink, sclera clear. Neck: No JVD. Heart: Regular at 80 bpm. + Diastolic murmur. + Systolic murmur, apical. No rub. Lungs: Diminished. Dry crackles. Abdomen: +BS. Soft. Nontender. No masses or organomegaly. Extremities: No clubbing, cyanosis, or edema. Limited neurological examination is without focal deficits. Pulses: Posterior tibial=2/4. Results & Data Vital Signs (Past 12 Hours) Vital Signs Temp Pulse Pulse Resp BP Pulse Ox O2 Del Method 10/23/23 08:06 36.5 C 83 18 120/63 96 Nasal Cannula 10/23/23 06:06 96 Nasal Cannula 10/23/23 06:04 87 L Room Air 10/23/23 03:11 36.5 C 81 22 123/71 92 Room Air 10/23/23 00:56 78 O2 Flow Rate 10/23/23 08:06 2.0 10/23/23 06:06 2 10/23/23 06:04 10/23/23 03:11 10/23/23 00:56 Laboratory Results Intake and Output 10/22/23 10/23/23 10/23/23 22:59 06:59 14:59 Intake Total 600 / 2710 460 / 2710 200 / 200 Output Total 1 1401 Balance 600 / 1309 459 / 1309 200 / 200 Intake: IV 100 / 800 100 / 800 200 / 200 Magnesium Sulfate / D5w 1 gm In 100 / 100 100 ml @ 50 mls/hr IV Q2H [facility] [place] Rx#:[id number] Piperacillin/Tazobactam 4.5 gm 100 / 300 100 / 300 100 / 100 In Dextrose 5% Mini-B 100 ml @ 25 mls/hr IV Q8H [facility] [place] Rx#: [id number] Oral 500 / 1910 360 / 1910 Output: # Bowel Movements Other: # Unmeasured Voids 3 1 Weight 64.183 kg Diagnostic Findings Resting echocardiography in September 2022 revealed preserved LV systolic function, EF 55 to 60%, with mild concentric LVH, severely dilated left atrium, severe pulmonary hypertension with estimated pulmonary artery systolic pressure 61 mmHg. TAVR without significant prosthetic regurgitation, normal gradients
--- NOTE | 2023-10-23 15:41 | Hospitalist Progress Note ---
Date of Service October 23, 2023 Assessment & Plan (1) Atrial fibrillation with rapid ventricular response: Plan 73-year-old male with PMH of PAF on Xarelto, status post TAVR on 05/03/2023 followed by cardiac rehab, ILD, positive NEREYDA, pulmonary hypertension, Raynaud's, JULIUS, esophageal dysmotility Hodgkin's lymphoma status post radiation to the chest 45 years ago, recurrent aspiration, myositis, bronchiectasis presented to the ED 10/19 with A-fib RVR. Also he reported recent "cold symptoms" including nonproductive cough, nasal congestion prior to arrival. He is being managed for the following: Acute Heart failure with preserved ejection fraction: Patient presented with worsening CLANCY, exercise intolerance, weight gain, nonproductive cough. 10/09/23 echo with EF of 55 to 60%, left atrium is severely dilated, left ventricular systolic function normal, no regional wall motion abnormalities noted. Chest imaging with pulmonary congestion and elevated BNP noted. Cardiology on board, compensated vol satus, diuresis dc'd. Monitor replete electrolytes. Strict I's and O's, low-sodium diet. Possible aspiration pneumonia: Given history of recurrent aspiration and esophageal dysmotility. Admitting chest imaging with increased RLL opacity, on exam increased RLL crackles. MRSA screen negative. Zosyn given empirically given recent hospitalization and h/o bronchiectasis (pseudomonas risk factors) and anaerobe coverage. Follow admitting blood culture and sputum culture. Patient started on Zosyn 10/19, continue for now. Patient reports improving hemoptysis. He continues with aspiration precautions and slippery diet and was recently evaluated by speech as inpatient with diet recs given. A-fib with RVR and demand ischemia: Known h/o PAF. RVR may have been precipita benigno from the pulmonary edema or this possible pneumonia at presentation. TSH WNL. Patient reports associated chest pain/palpitation/shortness of breath with A-fib RVR episodes. Troponin mostly in 50s, likely secondary to A-fib RVR. Had afib rvr in AM requiring multiple iv metoprolol and ivf. Cardiology on board, on sotalol. Continue with home Eliquis. Other chronic medical conditions: Continue with/resume home meds as and when able. Mobitz type II AV block: Per history Protein calorie malnutrition: Likely related to underlying myositis which is still being worked up by his neurologist in [facility] [place]. Nutrition consult while admitted for monitoring. Pulmonary hypertension: Per history. Continue CPAP. Treat underlying heart failure. Sees Dr. Ash ledezma. Interstitial lung disease: Per history. DVT prophylaxis: Apixaban Full code Dispo: PT/OT, CM to assist with DC plan. Admission and Anticipated Discharge Date Admission Date: October 20, 2023 Subjective Patient was seen and examined at bedside. Patient was lying in bed, on room air, NAD, resting comfortably. Patient w/ no further episodes of afib rvr since 5/6 am. Pt feels fine, has been undergoing sotalol loading, Qtc fairly stable Patient denies other complaints. Physical Exam Physical Exam: GENERAL: Alert and oriented x3. NAD, on RA. Appears weak/frail/thin. HEENT: No pallor, no icterus. Pupils equal, round and reactive to light. Oral mucosa moist. NECK: No JVD, no neck masses. HEART: S1 and S2 heard. regular rate and rhythm. No murmur, no gallop. RESPIRATORY SYSTEM: Normal AP diameter. No accessory muscle use. No wheezing, RLL crackles > LLL. ABDOMEN: Soft, bowel sounds present, nontender, no distention. CENTRAL NERVOUS SYSTEM: No facial droop. Speech is clear. Obeys simple commands. Moves extremities. EXTREMITIES: No edema, no erythema seen. Results & Data Results & Data Vital Signs (Past 12 Hours) Vital Signs Temp Pulse Resp BP Pulse Ox O2 Del Method O2 Flow Rate 10/23/23 12:13 36.7 C 77 18 117/62 98 Nasal Cannula 2.0 10/23/23 08:06 36.5 C 83 18 120/63 96 Nasal Cannula 2.0 10/23/23 06:06 96 Nasal Cannula 2 10/23/23 06:04 87 L Room Air
--- NOTE | 2023-10-24 04:58 | Electrocardiogram Report ---
Test Reason : Blood Pressure : / mmHG Vent. Rate : 081 BPM Atrial Rate : 081 BPM P-R Int : 192 ms QRS Dur : 090 ms QT Int : 402 ms P-R-T Axes : 065 021 049 degrees QTc Int : 466 ms Normal sinus rhythm Normal ECG When compared with ECG of 22-OCT-2023 10:25, No significant change was found Confirmed by Mane Stevenson ([id number]) on 10/24/2023 4:57:54 AM Referred By: REFERRED SELF Confirmed By:Mane Stevenson
--- NOTE | 2023-10-24 04:58 | Electrocardiogram Report ---
Test Reason : Blood Pressure : / mmHG Vent. Rate : 077 BPM Atrial Rate : 077 BPM P-R Int : 192 ms QRS Dur : 090 ms QT Int : 420 ms P-R-T Axes : 068 052 039 degrees QTc Int : 475 ms Normal sinus rhythm Normal ECG When compared with ECG of 23-OCT-2023 08:13, No significant change was found Confirmed by Mane Stevenson ([id number]) on 10/24/2023 4:58:15 AM Referred By: REFERRED SELF Confirmed By:Mane Stevenson
[2023-10-24] MEDS: ACETAMINOPHEN 325 MG TAB PO PRN (07:27)
[2023-10-24] MEDS: SODIUM CHLOR 7% 4 ML NEB NEB SCH (08:19)
[2023-10-24] MEDS: ALBUT/IPRATROP 3MG/0.5MG NEB 3 ML VIAL NEB SCH (08:19)
[2023-10-24 08:23] LABS: BUN Creatinine Ratio 20.9 (10-20); Calcium 8.8 mg/dl (8.6-10.3); Creatinine Clr Calc Pharmacy 70.2 ml/min; Est GFR (Non-African American) 85.4 ml/min; Magnesium 1.9 mg/dl (1.7-2.4); Phosphorus 3.8 mg/dl (2.5-4.9); Potassium 4.1 mmol/L (3.5-5.1)
--- NOTE | 2023-10-24 09:12 | Cardiology Progress Note ---
Date of Service October 24, 2023 Assessment & Plan (1) PAF (paroxysmal atrial fibrillation): (2) Elevated troponin: (3) Interstitial lung disease: (4) Status post transcatheter aortic valve replacement (TAVR) using bioprosthesis: (5) Nonobstructive atherosclerosis of coronary artery: (6) S/P ablation of atrial flutter: (7) S/P ablation of atrial fibrillation: (8) Mitral regurgitation: Plan Paroxysmal atrial fllutter and fibrillation with a rapid ventricular response. - Status post tricuspid isthmus ablation, 2013 - Status post PVI in 05/2017. - Echo in September 2023 with a severely enlarged left atrium. - Underlying interstitial lung disease (radiation for Hodgkins lymphoma at age 27) and obstructive sleep apnea - Sotalol initiated on October 22, 2023, first dose at 21:11 - QTc stable via EKG's - To receive his 4th dose this AM - Continue Sotalol loading, 40 mg BID - Continue Eliquis anticoagulation. Tachy-Bradycardia Syndrome. - No high degree AV block noted on telemetry thus far this admission. - Continue telemetry monitoring. Heart failure with preserved ejection fraction. - Normovolemic Severe pulmonary hypertension Severe aortic stenosis. - Status post TAVR, #34mm Medtronic Evolut FX Aortic Valve on 05/03/2023. - Postoperative LBBB, resolved. Mild nonobstructive CAD-- 40% pLAD stenosis and 40% RCA per pre TAVR cath 02/2023 Chest pressure. Spontaneously resolved. Atypical. EKG without acute change. ? secondary to neck issues. Headache. Improving with acetaminophen. CT head requested Admission and Anticipated Discharge Date Admission Date: October 20, 2023 Supervising Physician Co-Signing Physician Notes Patient was seen and personally examined. Full assessment and plan as outlined above discussed with advanced provider and fully endorsed. No further atrial fibrillation overnight with patient tolerating sotalol without QT prolongation or bradycardia arrhythmias. Nonspecific headache and shoulder discomfort earlier today without focal abnormality Maintain telemetry at least an additional 24 hours. Daily EKG Complained of headache this morning CT scan head unremarkable Continue plan as outlined I spent a total of 20 minutes on the date of service in preparation, delivery, and documentation of the care provided to this patient excluding any time spent in the performance of separately billed services. Subjective Patient seen and examined. Chart, medications, telemetry reviewed. + Headache this morning, improved with acetaminophen. He does not normally get headaches. Left upper outer chest/shoulder pressure earlier this morning, resolving spontaneously. No tachypalpitations. No worsening shortness of breath. No visual changes. Sotalol initiated on October 22, 2023, with first dose at 21:11. Fourth dose of sotalol to be administered this morning. EKG obtained this morning revealed normal sinus rhythm at 77 bpm, without acute ST segment change, QTc 463 ms. Telemetry: Patient maintaining sinus rhythm since October 22, 2023 at 19:48 (PAT/AFIB) Review of Systems Review of Systems: Complete Review of Systems is as stated above, negative, or noncontributory. Physical Exam Physical Exam: General: A&Ox3. NAD. HENT: Normocephalic. Atraumatic. Eyes: PER. Conjunctiva pink, sclera clear. Neck: No JVD. Heart: Regular at 80 bpm. + Diastolic murmur. + Systolic murmur, apical. No rub. Lungs: Diminished. Dry crackles. Abdomen: +BS. Soft. Nontender. No masses or organomegaly. Extremities: No clubbing, cyanosis, or edema. Limited neurological examination is without focal deficits. Pulses: Posterior tibial=2/4. Results & Data Vital Signs (Past 12 Hours) Vital Signs Temp Pulse Pulse Resp BP Pulse Ox O2 Del Method 10/24/23 08:22 102 H 16 91 Room Air 10/24/23 08:07 36.5 C 76 18 123/52 L 91 Room Air 10/24/23 07:21 74 10/24/23 07:21 Nasal Cannula 10/24/23 02:15 36.3 C L 74 18 108/59 L 97 Nasal Cannula 10/23/23 23:44 36.5 C 69 18 119/65 90 Room Air 10/23/23 22:00 75 O2 Flow Rate 10/24/23 08:22 10/24/23 08:07 10/24/23 07:21 10/24/23 07:21 1 10/24/23 02:15 1 10/23/23 23:44 10/23/23 22:00 Laboratory Results Comprehensive Metabolic Panel 10/24/23 Range/Units 07:07 Sodium 139 (136-145) mmol/L Potassium 4.1 (3.5-5.1) mmol/L Chloride 95 L (98-107) mmol/L Carbon Dioxide 41 H* (21-32) mmol/L BUN 18 (6-23) mg/dl Creatinine 0.86 (0.6-1.4) mg/dl Glucose 102 H (70-99(Fasting)) mg/dl Calcium 8.8 (8.6-10.3) mg/dl Intake and Output 10/23/23 10/24/23 10/24/23 22:59 06:59 14:59 Intake Total 300 / 1480 400 / 1480 Output Total 178 / 454 276 / 454 Balance 122 / 1026 124 / 1026 Intake: IV 100 / 500 100 / 500 Piperacillin/Tazobactam 4.5 gm 100 / 300 100 / 300 In Dextrose 5% Mini-B 100 ml @ 25 mls/hr IV Q8H [facility] Rx#: [id number] Oral 200 / 980 300 / 980 Output: Urine 175 / 450 275 / 450 # Bowel Movements 3 / 4 1 / 4 Other: # Unmeasured Voids 1 Weight 65.828 kg Weight Measurement Method Built in [facility]
--- NOTE | 2023-10-24 11:51 | CT Scan Report ---
CT OF THE HEAD WITHOUT CONTRAST CLINICAL HISTORY: headache. anticoagulation COMPARISON STUDY: Head CT and MRI of the brain October 08, 2023. CT DOSE: 625.8 mGy.cm TECHNIQUE: Helical axial images of the head were obtained without IV contrast. Automated exposure con trol was utilized for the study. A dose lowering technique was utilized adhering to the principles o f ALARA. FINDINGS: No acute intracranial hemorrhage, midline shift or mass effect is present. The ventricular system is unremarkable. The basal cisterns are patent. No extra-axial collections are present. There are no findings to suggest acute dural sinus thrombosis or acute territorial infarct. No significant calvarial abnormalities are present. IMPRESSION: No acute intracranial findings. ACT 112: Negative or not required by law. Electronically signed by: Costa Gilliam M.D. 10/24/2023 11:50 AM
--- NOTE | 2023-10-24 15:45 | Hospitalist Progress Note ---
Date of Service October 24, 2023 Assessment & Plan (1) Atrial fibrillation with rapid ventricular response: Plan 73-year-old male with PMH of PAF on Xarelto, status post TAVR on 05/03/2023 followed by cardiac rehab, ILD, positive NEREYDA, pulmonary hypertension, Raynaud's, JULIUS, esophageal dysmotility Hodgkin's lymphoma status post radiation to the chest 45 years ago, recurrent aspiration, myositis, bronchiectasis presented to the ED 10/19 with A-fib RVR. Also he reported recent "cold symptoms" including nonproductive cough, nasal congestion prior to arrival. He is being managed for the following: Acute Heart failure with preserved ejection fraction: Acute hypoxic respiratory failure Patient presented with worsening CLANCY, exercise intolerance nonproductive cough. 10/09/23 echo with EF of 55 to 60%, left atrium is severely dilated, left ventricular systolic function normal, no regional wall motion abnormalities noted. Chest imaging with pulmonary congestion and elevated BNP noted. Cardiology on board, compensated vol satus, diuresis dc'd. Monitor replete electrolytes. Strict I's and O's, low-sodium diet. Possible aspiration pneumonia: Chest CT shows mild patchy groundglass opacities throughout both lungs MRSA screen negative. Zosyn given empirically given recent hospitalization and h/o bronchiectasis and anaerobe coverage. Airway clearance therapy with hypertonic saline and DuoNebs A-fib with RVR and demand ischemia: Known h/o PAF. RVR may have been precipitated from the pulmonary edema or this possible pneumonia at presentation. TSH WNL. Patient reports associated chest pain/palpitation/shortness of breath with A-fib RVR episodes. On sotalol; currently in sinus rhythm Other chronic medical conditions: Continue with/resume home meds as and when able. Mobitz type II AV block: Per history Protein calorie malnutrition: Likely related to underlying myositis which is still being worked up by his neurologist in [facility] [place]. Nutrition consult while a dmitted for monitoring. Pulmonary hypertension: Per history. Continue CPAP. Treat underlying heart failure. Sees Dr. Ash ledezma. Interstitial lung disease: Per history. DVT prophylaxis: Apixaban Full code Dispo: Continue to monitor inpatient on telemetry. Plan [facility] tomorrow a.m. if no significant clinical events Discussed with patient's over the phone. Answered questions/queries. Time spent evaluating patient, direct bedside care, chart review, placing orders, interpretation of diagnostic studies, discussion with consultants, patient, and family members, as well as other required patient management activities is 60 minutes Please note the above document was generated using voice recognition software. It may contain grammatical, syntax or spelling errors. Any formal questions or concerns about the content, text or information contained within the body of this dictation should be directly addressed to the provider for clarification Admission and Anticipated Discharge Date Admission Date: October 20, 2023 Subjective Patient seen and examined at bedside. He is sitting up on the chair comfortably. Oxygen weaned off to room air. Telemetry shows normal sinus rhythm Review of Systems Review of Systems: All systems reviewed & are unremarkable except as noted in Subjective Physical Exam Physical Exam: Constitutional: WD/WN, vitals as above, NAD, sitting up in bed, pleasant, conversing easily Respiratory: Right lower lobe crackles Cardiovascular: RRR, no murmur, no edema Vessels: no JVD or carotid bruit Chest: normal inspection of chest Abdomen: normal bowel sounds, soft, nontender, no hepatosplenomegaly Musculoskeletal: no cyanosis or clubbing, extremities motor strength 5/5 Skin: no rashes, warm and dry normal turgor Neurologic: PERRL, EOMI, accommodation nl, no face palsy, no dysarthria CN's II- XI intact bilaterally and moves all extremities Psychiatric: A+Ox3, euthymic affect Results & Data Results & Data Vital Signs (Past 12 Hours) Vital Signs Temp Pulse Pulse Resp BP Pulse Ox O2 Del Method 10/24/23 15:15 74 10/24/23 11:53 36.6 C 76 20 124/67 93 Room Air 10/24/23 08:22 102 H 16 91 Room Air 10/24/23 08:07 36.5 C 76 18 123/52 L 91 Room Air 10/24/23 07:21 74 10/24/23 07:21 Nasal Cannula O2 Flow Rate 10/24/23 15:15 10/24/23 11:53 10/24/23 08:22 10/24/23 08:07 10/24/23 07:21 10/24/23 07:21 1
--- NOTE | 2023-10-25 09:44 | Cardiology Progress Note ---
Date of Service October 25, 2023 Assessment & Plan (1) PAF (paroxysmal atrial fibrillation): (2) Elevated troponin: (3) Interstitial lung disease: (4) Status post transcatheter aortic valve replacement (TAVR) using bioprosthesis: (5) Nonobstructive atherosclerosis of coronary artery: (6) S/P ablation of atrial flutter: (7) S/P ablation of atrial fibrillation: (8) Mitral regurgitation: Plan Paroxysmal atrial fllutter and fibrillation with a rapid ventricular response. - Status post tricuspid isthmus ablation, 2013 - Status post PVI in 05/2017. - Echo in September 2023 with a severely enlarged left atrium. - Underlying interstitial lung disease (radiation for Hodgkins lymphoma at age 27) and obstructive sleep apnea - Sotalol initiated on October 22, 2023 at 21:11 - 6th dose administered this AM, EKG requested; QTc's stable thus far - OK for discharge today from a cardiac standpoint as long as todays' EKG is OK. - Continue Eliquis anticoagulation. Tachy-Bradycardia Syndrome, quiescent. No high degree AV block noted on telemetry this admission. Heart failure with preserved ejection fraction. Severe pulmonary hypertension. Normovolemic. Continue without diuretic therapy. Severe aortic stenosis. Status post TAVR, #34mm Medtronic Evolut FX Aortic Valve on 05/03/2023. Postoperative LBBB, resolved. Mild nonobstructive CAD via 02/2023 CATH (40% pLAD stenosis, 40% RCA stenosis) Admission and Anticipated Discharge Date Admission Date: October 20, 2023 Supervising Physician Co-Signing Physician Notes Patient was seen and personally examined. Full assessment and plan as outlined above discussed with advanced provider and fully endorsed. No atrial fibrillation since initiating sotalol. No concerning changes on EKG, QT intervals normal Feels well today headache issues resolved Anticipated discharge today [facility] agree with plan I spent a total of 20 minutes on the date of service in preparation, delivery, and documentation of the care provided to this patient excluding any time spent in the performance of separately billed services. Subjective Patient seen and examined. Chart, medications, telemetry reviewed. Feeling well except for diarrhea. No headache, chest discomfort, palpitations, shortness of breath. 6th dose of sotalol administered this morning EKG ordered. Telemetry: Sinus over the last 24 hours, current 70 bpm. Review of Systems Review of Systems: Complete Review of Systems is as stated above, negative, or noncontributory. Physical Exam Physical Exam: General: A&Ox3. NAD. HENT: Normocephalic. Atraumatic. Eyes: PER. Conjunctiva pink, sclera clear. Neck: No JVD. Heart: Regular at 70 bpm. + Systolic murmur. No rub. Lungs: Diminished. Dry crackles. Abdomen: +BS. Soft. Nontender. No masses or organomegaly. Extremities: No clubbing, cyanosis, or edema. Limited neurological examination is without focal deficits. Pulses: Posterior tibial=2/4. Results & Data Vital Signs (Past 12 Hours) Vital Signs Temp Pulse Pulse Resp BP Pulse Ox O2 Del Method 10/25/23 07:50 36.2 C L 70 20 109/54 L 98 Room Air 10/25/23 07:29 57 L 15 93 Room Air 10/24/23 23:00 36.5 C 72 16 120/64 92 CPAP 10/24/23 22:03 72 Laboratory Results Intake and Output 10/24/23 10/25/23 10/25/23 22:59 06:59 14:59 Intake Total 200 / 1240 100 / 1240 Output Total Balance 199 / 1239 100 / 1239 Intake: IV 100 / 300 100 / 300 Piperacillin/Tazobactam 4.5 gm 100 / 300 100 / 300 In Dextrose 5% Mini-B 100 ml @ 25 mls/hr IV Q8H [facility] Rx#: [id number] Oral 100 / 940 Output: # Bowel Movements Other: # Unmeasured Voids 2
--- NOTE | 2023-10-25 14:02 | Discharge Summary ---
Date of Service October 25, 2023 Admission HPI Per Admitting Provider 73 yo M presents with atrial fibrillation with RVR. Per outpatient record review he has a h/o PAF on Xarelto. He is s/p TAVR on 05/03/2023 followed by cardiac rehab. At the end of his rehab sessions he had episodes where his heart rate spiked to 160-170s and he felt lightheaded, with an odd sensation in the chest and pressure in his head. He was noted to have SVT per recent Zio monitor He has known ILD, positive NEREYDA, pulmonary hypertension, Raynauds, JULIUS and esophageal dysmotility. He also has a h/o Hodgkin's lymphoma with radiation to the chest 45 years ago. He sees pulmonary and has a noted h/o recurrent aspiration. He was seen by rheumatology who did not feel his symptoms were consistent with an autoimmune condition. 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 He also has known uncomplicated bronchiectasis. On presentation today he was in afib with RVR. He converted back to sinus rhythm after Lopressor 5mg IV. He has recently noted "cold symptoms" including a nonproductive cough, nasal congestion. He denies ear symptoms, fevers, chills. He reports episodes of epistaxis as possible sequelae of nasal symptoms and blowing his nose. He said these symptoms started the day he returned home from the hospital and have been getting progressively worse. He also reports significant dyspnea with exertion noting he could typically walk the length of a football field but now can only walk 20 ft becoming short of breath. He reported gaining 4 lbs in the past week. He reports a new dry mouth. Notably he was started back on metoprolol and newly on atorvastatin after recent hospitalization for an episode of dysarthria. The dysarthria has not returned and he denies other stroke like symptoms. He denies PND and sleeps on a wedge at home all the time. This morning, shortly after awakening he developed palpitations and chest pain in the left anterior chest wall that was constant. Home pulse oximeter revealed his heart rate was sin the 160s and his oxygen saturation was low. After conversion to sinus rhythm this morning, the chest pain resolved. He is feeling better, but still is hypoxic at rest. CXR reveals a possible pneumonia. He denies christel aspiration but still has some issues with this. He is being started on abx and is requiring 2LPM oxygen supplementation which is new. ROS otherwise reveals no diarrhea, abdominal pain or other symptoms. He is tolerating PO well. He is accompanied by his who assists with the history. Admission Exam Per Admitting Provider CONSTITUTIONAL: thin, frail, cachectic, vitals as above, generally well- appearing, NAD EYES: PERRL, normal conjunctivae, no scleral icterus ENT: external ear and nose normal, cerumen blocking TM visualization bilaterally, oropharynx clear NECK: trachea midline RESPIRATORY: crackles throughout lung cline, no rales or wheezes, normal respiratory effort CARDIOVASCULAR: regular rate and rhythm, S1 and 2 heard 3/6 MARIAH throughout precordium, no gallops or rubs, no JVD, no peripheral edema CHEST: inspection of chest was normal GASTROINTESTINAL: soft, nontender, ND, no guarding MUSCULOSKELETAL: strength 5/5 throughout, head is normocephalic and atraumatic SKIN: warm and dry NEUROLOGIC: CN 2-12 grossly intact, no sensory deficit, normal cognition, normal speech, no tremor PSYCHIATRIC: alert cooperative and oriented to person, place and time. Euthymic mood, makes good eye contact, language grossly intact, recent and remote memory grossly intact. Principal Diagnosis Acute Heart failure with preserved ejection fraction Possible aspiration pneumonia A-fib with RVR and demand ischemia: Discharge Exam Constitutional: WD/WN, vitals as above, NAD, sitting up in bed, pleasant, conversing easily Respiratory: Fine crackles appreciated bilaterally Cardiovascular: RRR, no murmur, no edema Vessels: no JVD or carotid bruit Chest: normal inspection of chest Abdomen: normal bowel sounds, soft, nontender, no hepatosplenomegaly Musculoskeletal: no cyanosis or clubbing, extremities motor strength 5/5 Skin: no rashes, warm and dry normal turgor Neurologic: PERRL, EOMI, accommodation nl, no face palsy, no dysarthria CN's II- XI intact bilaterally and moves all extremities Psychiatric: A+Ox3, euthymic affect Discharge Data Allergies Allergy/AdvReac Type Severity Reaction Status Date / Time No Known Allergies Allergy Verified 02/20/23 08:47 Consultations 10/20/23 11:59 ED Decision to Admit Stat 10/20/23 14:19 Consult Cardiology Routine Ordered Studies 10/20/23 13:18 CT chest diagnostic wo con Urgent 10/24/23 09:16 CT head/brain wo con Routine Hospital Course (1) Atrial fibrillation with rapid ventricular response: Plan 73-year-old male with PMH of PAF on Xarelto, status post TAVR on 05/03/2023 followed by cardiac rehab, ILD, positive NEREYDA, pulmonary hypertension, Raynaud's, JULIUS, esophageal dysmotility Hodgkin's lymphoma status post radiation to the chest 45 years ago, recurrent aspiration, myositis, bronchiectasis presented to the ED 10/19 with A-fib RVR. Also he reported recent "cold symptoms" including nonproductive cough, nasal congestion prior to arrival. Patient was treated for following condition during the hospitalization: Acute Heart failure with preserved ejection fraction: Acute hypoxic respiratory failure Patient presented with worsening CLANCY, exercise intolerance nonproductive cough. 10/09/23 echo with EF of 55 to 60%, left atrium is severely dilated, left ventricular systolic function normal, no regional wall motion abnormalities noted. Chest imaging with pulmonary congestion and elevated BNP noted. During the hospitalization, patient was given iv diuretics with improvement in congestion. No diuretics as per cardiology at the time of discharge Possible aspiration pneumonia: Chest CT shows mild patchy groundglass opacities throughout both lungs MRSA screen negative. Zosyn given empirically given recent hospitalization and h/o bronchiectasis and anaerobe coverage. Airway clearance therapy with hypertonic saline and DuoNebs Patient was treated with iv zosyn with improvement in the symptoms A-fib with RVR and demand ischemia: Known h/o PAF. RVR may have been precipitated from the pulmonary edema or this possible pneumonia at presentation. TSH WNL. Patient reports associated chest pain/palpitation/shortness of breath with A-fib RVR episodes. On sotalol; currently in sinus rhythm During the hospitalization, patient was treated with sotalol 40mg, He was on sinus rhythm at the time of the discharge. Please note the above document was generated using voice recognition software. It may contain grammatical, syntax or spelling errors. Any formal questions or concerns about the content, text or information contained within the body of this dictation should be directly addressed to the provider for clarification Total Time Total Time Spent Total Time Spent (In Minutes): 45 Total Time Includes: Examination of the Patient, Discharge Planning, Medication Reconciliation, Communication With Other Providers and Other Discharge Plan Discharge Items Patient Disposition: Transfer Inpatient Rehab Fac Reason For Visit: AFIB WITH RVR, CHEST PAIN, HYPOXIA Discharge Diagnosis: Atrial fibrillation with RVR Activity: Resume your previous activity Non-emergency contact: Primary Care Provider Call non-emergency contact if: you have any medication questions and your s ymptoms worsen Follow-up/Referrals: Dewayne Pena MD [Primary Care Provider] - Diet: Regular Addtl Attending Provider Instructions: You were admitted to the hospital with atrial fibrillation. You were started on sotalol please take it 2 times a day. You are also treated for pneumonia. You completed anitboitics course You are prescribed breathing treatment with hypertonic saline and DuoNebs to clear your lungs. Please use hypertonic saline first followed by DuoNebs twice a day for next 5 days. Then, you can use it on as-needed basis. Please ask for nebulizer at discharge when you are getting out of rehab Pending Studies at Discharge: No Stand-Alone Forms: My [facility] Skilled Items Patient informed of condition?: Yes DNR: No Discharge Level of Care: Acute rehab Communicable Disease: No Discharge Prognosis: Stable Lines: None Urinary Catheter: No Medications and DC Order Prescriptions: New ipratropium-albuterol 0.5 mg-3 mg(2.5 mg base)/3 mL Solution For Nebulization 3 ml NEB BIDR Qty: 90 0RF sotalol 80 mg Tablet 40 mg PO BID Qty: 60 0RF sodium chloride 7 % Solution For Nebulization 4 ml NEB BIDR Qty: 120 0RF Advanced Probiotic 625 mg (10 billion cell) Capsule 1 cap PO DAILY Qty: 30 0RF Continued aspirin 81 mg Tablet,Delayed Release (Dr/Ec) 81 mg PO QAM levothyroxine 75 mcg tablet 75 mcg PO QAM Rx Instructions: TAKE BEFORE BREAKFAST cyanocobalamin (vitamin B-12) [Vitamin B-12] 1,000 mcg Tablet 1,000 mcg PO QAM cholecalciferol (vitamin D3) [Vitamin D3] 1,000 unit Capsule 1,000 unit PO QAM atorvastatin 20 mg Tablet 20 mg PO QAM Qty: 30 0RF Eliquis 5 mg tablet 5 mg PO BID Discontinued metoprolol succinate 25 mg Tablet Extended Release 24 Hr 12.5 mg PO QAM Qty: 30 0RF Discharge Orders: Discharge Order (Routine); Ordered 10/25/23 Ordered By: Jorge Alberto Sumner Admission Data Admit Date/Time: 10/20/23 12:12 Attending Provider: Jorge Alberto Sumner Admit Provider: Anca Gomez Primary Care Provider: Dewayne Pena Other Providers: Anca Gomez; Kalyan Drummond; [facility]
--- NOTE | 2023-10-26 05:40 | Electrocardiogram Report ---
Test Reason : Blood Pressure : / mmHG Vent. Rate : 077 BPM Atrial Rate : 077 BPM P-R Int : 194 ms QRS Dur : 090 ms QT Int : 410 ms P-R-T Axes : 054 058 035 degrees QTc Int : 463 ms Poor data quality, interpretation may be adversely affected Normal sinus rhythm Normal ECG When compared with ECG of 23-OCT-2023 10:28, No significant change was found Confirmed by Mane Stevenson ([id number]) on 10/26/2023 5:40:09 AM Referred By: REFERRED SELF Confirmed By:Mane Stevenson
--- NOTE | 2023-10-26 05:52 | Electrocardiogram Report ---
Test Reason : Blood Pressure : / mmHG Vent. Rate : 079 BPM Atrial Rate : 079 BPM P-R Int : 192 ms QRS Dur : 090 ms QT Int : 404 ms P-R-T Axes : 065 025 028 degrees QTc Int : 463 ms Normal sinus rhythm Normal ECG When compared with ECG of 24-OCT-2023 07:09, No significant change was found Confirmed by Mane Stevenson ([id number]) on 10/26/2023 5:51:47 AM Referred By: REFERRED SELF Confirmed By:Mane Stevenson
--- NOTE | 2023-10-27 05:59 | Electrocardiogram Report ---
Test Reason : Blood Pressure : / mmHG Vent. Rate : 078 BPM Atrial Rate : 078 BPM P-R Int : 184 ms QRS Dur : 094 ms QT Int : 406 ms P-R-T Axes : 095 018 020 degrees QTc Int : 462 ms Poor data quality, interpretation may be adversely affected Normal sinus rhythm Possible Left atrial enlargement Borderline ECG When compared with ECG of 24-OCT-2023 11:16, No significant change was found Confirmed by Mane Stevenson ([id number]) on 10/27/2023 5:59:45 AM Referred By: REFERRED SELF Confirmed By:Mane Stevenson
== END 2023-10-25 12:59 | DRG 291 ==
LOC: ED 08:42 → EDINP 12:12 → SUATTDRO 12:12 → 2E 14:20

== ENCOUNTER 2024-08-30 14:14 | Inpatient (IN) ==
--- OUTSIDE RECORDS SUMMARY | 2024-08-30 14:20 | External Medical Summary | Summary of Care ---
Author Name Unknown Organization [facility] Address [address] [place] [address] Phone [phone] Care Team Providers Care Ham Passer Name Role Phone Dewayne Pena MD Primary Care Provider [phone] Reason for Visit * Reason Onset Date Comments Advice 08/11/2024 Encounter Details Date Type Department Care Team (Late st Contact Info) Description 08/11/2024 Telephone Vascular Surg [facility] [address] [place] [address] German Tay MD [address] [place] [address] Advice Allergies No known active allergiesdocumented as of this encounter (statuses as of 08/27/2024) Medications Cholecalciferol 25 MCG (1000 UT) Oral Capsule Take 1 Capsule by mouth in the morning. Active CPAP every night at bedtime . Auto 5-20 cm Active Turmeric Curcumin Oral Capsule Take by mouth 1 Capsule daily . Active Ocuvite Adult Formula Oral Capsule Take by mouth. Activ e Amoxicillin 500 MG Oral Capsule (Amoxil) Take 4 capsules 1 hour prior to any dental work 4 Capsule 4 3 Active Nac 600 600 MG Oral Capsule (Acetylcysteine) Take 1 Capsule by mouth in the morning and 1 Capsule before bedtime. 4 Active Atorvastatin Calcium 20 MG Oral Tablet (Lipitor) Take 1 Tablet by mouth in the morning. 90 Tablet 3 4 Active Apixaban 5 MG Oral Tablet (Eliquis) Take 1 Tablet by mouth in the morning and 1 Tablet before bedtime. 60 Tablet 11 4 Active Saccharomyces boulardii 250 MG Oral Capsule (Florastor) Take 1 Capsule by mouth in the morning. Active Vitamin B-12 1000 MCG Sublingual Tablet Sublingual Place 1 Tablet under the tongue in the morning. Active NATURAL SUPPLEMENT Take 1 Tablet by mouth in the morning. Herbal supplement for lungs. Active Sotalol HCl 80 MG Oral Tablet (Betapace) One half tablet by mouth two times per day 90 Tablet 3 4 Active Comirnaty 30 MCG/0.3ML Intramuscular Suspension Prefilled Syringe Inject into a large muscle. 0.3 mL 4 Active Additional Information Patient not taking.Reported on 07/29/2024 Levothyroxine Sodium 75 MCG Oral Tablet (Levoxyl) TAKE 1 TABLET BY MOUTH EVERY DAY IN THE MORNING (AT LEAST 30 MIN PRIOR TO BREAKFAST OR OTHER MEDS) 90 Tablet 3 4 Active Tavaborole 5 % External Solution APPLY TO AFFECTED TOENAILS ONCE A DAY FOR 6 MONTHS Active Sodium Fluoride 5000 PPM 1.1 % Dental Gel Active Ipratropium-Albut marlo 0.5-2.5 (3) MG/3ML Inhalation Solution (Duoneb) Inhale 3 mL by mouth every 6 hours as needed. 5 Active documented as of this encounter (statuses as of 08/27/2024) Active Problems Problem Noted Date Diagnosed Date Varicose veins of left lower extremity with comp lications 07/23/2024 Hemorrhage of varicose veins of left lower extre mity 04/30/2024 Spider veins 04/30/2024 Varicose veins of leg with complications 024 Venous insufficiency 04/30/2024 Hospice care patient 03/24/2024 Polymyositis 11/02/2023 Paroxysmal atrial fibrillation 09/14/2023 1st degree AV block 05/05/2023 S/P TAVR (transcatheter aortic valve replacement ) 05/03/2023 BMI less than 19,adult 03/16/2023 Senile osteoporosis 09/28/2022 Protein-calorie malnutrition 07/07/2022 Neuromuscular disorder 07/07/2022 PHT (pulmonary hypertension) 06/02/2021 Hx of melanoma of skin 03/24/2021 Overview (03/24/2021): Hx MM date 2013, Depth unknown, no SLN, Location [facility] Raynaud's disease without gangrene 06/02/2019 Esophageal dysmotility 05/20/2019 JULIUS (obstructive sleep apnea) 05/20/2019 ILD (interstitial lung disease) 05/20/2019 Coronary artery disease invo lving [place] coronary artery of [place] heart without angina pectoris 03/24/2019 Nonrheumatic mitral valve stenosis 03/24/2019 H/O Hodgkin's lymphoma 07/05/2018 Acquired hypothyroidism 07/05/2018 documented as of this encounter (statuses as of 08/27/2024) Resolved Problems Problem Noted Date Diagnosed Date Resolved Date Osteoporotic fracture of left hip 09/28/2022 03/14/2023 Aortic root enlargement 07/07/2022 1108/2022 Sinus tachycardia 03/16/2022 03/14/2023 Hx of nonmelanoma skin cancer 03/24/2021 05/14/2023 Overview (03/24/2021): Hx MM date 2013, Depth unknown, no SLN, Location [facility] (still no path in chart, pt confirmed that he had surgery for melanoma at that site and for BCC prior, see below) BCC R [facility] 2008 ([facility]) Prediabetes 02/28/2021 02/01/2023 Overview: Per Prediabetes protocol Moderate protein malnutrition 12/15/2019 03/14/2023 Ankylosing spondylitis of cervical region 12/15/2019 07/07/2022 PSVT (paroxysmal supraventri cular tachycardia) 12/15/2019 03/21/2024 Moderate aortic stenosis 03/24/2019 H/O atrial fibrillation with out current medication 07/05/2018 03/14/2023 documented as of this encounter (statuses as of 08/27/2024) Immunizations Name Administration Dates Next Due COVID-19 mRNA, LNP-s, No Pre serve, 2-Dose Series (Moderna) 08/21/2020,07/17/2020 COVID-19, MRNA-LNP, PF, 30 M CG/0.3 mL, 12 YRS AND ABOVE, IM (PFIZER-Comirnaty) 04/10/2024,03/27/2023 COVID-19, mRNA, LNP-s, PF, B ooster, 100mcg/0.5mg (Moderna) 10/13/2021,04/13/2021 Covid-19, Mrna, Lnp-s, Pf, B ivalent, 30 Mcg, IM, 12 yrs and above (Pfizer) 11/09/2022,03/10/2022 PPD 12/29/2020,12/24/2018,12/03/2018 Pneumococcal Conjugate Vacc, 13 Valent (Prevnar) 11/08/2018 Pneumococcal Polysaccharide PPV23 (Pneumovax) 02/14/2021 RSV Vac., Bivalent, Perfusio n F, Pf,0.5 Ml (Abrysvo) 03/27/2023 Season Influenza, Quad, PF, Adjuvanted, 65+ Yrs, IM (FLUAD) 02/28/2020 Seasonal Influenza, High Dos e, Trivalent, PF, IM (Fluzone HD) 03/21/2024 Seasonal Influenza, PF, 6 M & above, IM , (FluLaval or Fluzone) 03/18/2018 Seasonal Influenza, Quadriva lent Hd (Fluzone Hd) 03/16/2023,04/07/2022,03/21/2021 Seasonal Influenza, Trivalen t, Adjuvanted, 65+ YRS, PF, (Fluad) 03/07/2019 TDAP (age 10 and older)(Boostrix) 07/07/2022,06/2011 [...] the money to buy more. Never true 03/07/20 24 Within the past 12 months, t he food you bought just didn't last and you didn't have money to get more. Never true 03/07/2024 Childcare Answer Date Recorded Do you feel overwhelmed with taking care of a child, family member or friend? No 03/07/2024 Does your family need help f inding childcare? (Household - for ages 0-17 years) Not on file 03/07/2024 Clothing Answer Date Recorded Have you been unable to get clothing when it was really needed? No 03/07/2024 Is your family able to get c lothes or diapers when needed? (Household - for ages 0-17 years) Not on file 03/07/2024 Personal Safety Answer Date Recorded Do you feel unsafe or have concerns for your saf ety? No 03/07/2024 Do you have concerns for you r family's safety? (Household - for ages 0-17 years) Not on file 03/07/2024 Utilities Answer Date Recorded Do you have trouble paying y our heating, water, or electric bill? No 03/07/2024 Is your family able to pay t he heat, water, or electric bill? (Household - for ages 0-17 years) Not on file 03/07/2024 Does your family have access to good internet? (Household - for ages 0-17 years) Not on file 03/07/2024 Employment Status Answer Date Recorded Are you unemployed or without regular income? No 03/07/2024 Does the household have a re gular source of income? (Household - for ages 0-17 years) Not on file 03/07/2024 Social Connections Answer Date Recorded How often do you feel lonely or isolated from th ose around you? Never 03/07/2024 Financial Resource Strain Answer Date R ecorded Do you have any trouble payi ng for your medications, or do you think you might in the future? No 03/07/2024 Does your family have troubl e paying for medicine? (Household - for ages 0-17 years) Not on file 03/07/2024 Transportation Needs Answer Date Record ed Do you have trouble getting a ride to medical visits or work? (Adult - for ages 18 years and over) Not on file 03/07/2024 Does your family have a hard time getting a ride to doctors visits? (Household - for ages 0-17 years) Not on file 03/07/2024 Has lack of transportation k ept you from medical appointments, meetings, work, or from getting things needed for daily living? Check all that apply. No 03/07/2024 Do you (or your family) have trouble finding or paying for a ride (transportation)? (Household - for ages 0-17 years) Not on file 03/07/2024 Housing Stability Answer Date Recorded Do you currently live in a s helter or have no steady place to sleep at night? No 03/07/2024 Do you think you are at risk of becoming homeless? (Adult - for ages 18 years and over) Not on file 03/07/2024 Does your family worry about paying for your home or becoming homeless? (Household - for ages 0-17 years) Not on file 0 03/07/2024 Are you homeless or worried that you might be in the future? No 03/07/2024 Are you (or your family) jan eless or worried that you might be in the future? (Household - for ages 0-17 years) Not on file Food Insecurity Answer Date Recorded Do you need food for this week? No 03/07/2024 Are you able to get enough f ood for your family? (Household - for ages 0-17 years) Not on file 03/07/2024 Does your family need food t his week? (Household - for ages 0-17 years) Not on file 03/07/2024 Do you always have enough fo od for your family? (Household - for ages 0-17 years) Not on file 03/07/2024 Food Insecurity Answer Date Recorded Within the past 12 months, y ou worried that your food would run out before you got the money to buy more. Never true 03/07/20 24 Within the past 12 months, t he food you bought just didn't last and you didn't have money to get more. Never true 03/07/2024 Do you need food for this week? No 03/07/2024 Sex and Gender Information Value Date Recorded Sex Assigned at Male 09/26/2022 2:47 PM EDT Legal Sex Male 8:39 AM EST Gender Identity Male 09/26/2022 2:47 PM EDT Sexual Orientation Straight 09/26/2022 2: 47 PM EDT Occupation Industry Job Start Date Job End Date Retired Not on file Not on file Not on file documented as of this encounter Functional Status * Do you have serious difficulty walking or climbing stairs? (5 years old or older) Answer Date of Assessment Author No 05/04/2023 1:22 PM EST Mary Gee MSW documented as of this encounter Miscellaneous Notes * Telephone Encounter - Saniya Covarrubias LPN - 08/26/2024 3:52 PM EDT FYI: Patient was scheduled today for pulmonary function lab and was cancelled it states appt not needed. His appt for cardiology is on 10/09/[address] Graves and his appt in Pulmonary with Dr. Rivera is on 02/23/25. Saniya Covarrubias LPN 08/26/2024 3:53 PM * Telephone Encounter - Brandie Saleem CRNP - 08/14/2024 11:23 AM EST Noted. Saniya, please keep on your list to follow-up in a few weeks. * Telephone Encounter - Matt Medellin OSA - 08/14/2024 11:18 AM EST Patient returned my call and wants to wait to reschedule after he sees cardiology/pulmonology and gets cleared by them because he is having trouble with his oxygen levels getting low. He said he will call us when he is able to reschedule * Telephone Encounter - Matt Medellin, JULIUS - 08/14/2024 10:55 AM EST Called and LVMM for patient to reschedule surgery with Looking at 08/26/24 * Telephone Encounter - Matt Medellin OSA - 08/14/2024 9:[address] Tay, Would 08/26 or 09/04 work for you to reschedule this patient's vein surgery? If not I can look for another day in September * Telephone Encounter - Matt Medellin OSA - 08/12/2024 9:02 AM EST Surgery for 08/18 and post op appts canceled * Telephone Encounter - Saniya Covarrubias LPN - 08/11/2024 1:18 PM EST Patient returned phone call and I made him aware of message from Ami. He states he sees his Otolaryngology Surgeon on Sunday and he also has call in to his Pulmonary doctor. I let him know that we will cancel his surgery and we would reach out to reschedule him. Secretaries, Please cancel surgery with Dr. Tay on 08/18/24 and reach out to patient to reschedule surgery and post op appts. Saniya Covarrubias LPN 08/11/2024 1:21 PM * Telephone Encounter - Saniya Covarrubias LPN - 08/11/2024 1:11 PM EST Attempted to contact patient to make him aware of message from Ami. Left message to return phone call. Saniya Covarrubias LPN 08/11/2024 1:11 PM * Telephone Encounter - Ami Mcdaniels PA-C - 08/11/2024 1:02 PM EST Sounds like the patient has upper respiratory infection. It is probably best if this is accurate toreschedule surgery. Patient should make PCP aware of chest tightness and if this should worsen he should go to the ED. * Telephone Encounter - Saniya Covarrubias LPN - 08/11/2024 11:26 AM EST Received a phone call from patient and he states that his o2 has been running low about mid-low 80's. He can get it back up with oxygen. I asked him if he is on oxygen and states that he does have itat night with his CPAP machine. He also states that he has some chest tightness, cough and phlegm. He denies any fevers / chills. Pt is scheduled with Dr. Valdes on 08/18/24 Left great saphenous vein ablation and stab phlebectomy He is asking if this is going to affect his surgery. Please advise. Saniya Covarrubias LPN 08/11/2024 11:30 AM documented in this encounter Plan of Treatment Upcoming Encounters Date Type Department Care Team (Late st Contact Info) Description 09/23/2024 1:20 PM EDT Office Visit Family Practice [facility] [address] [place] [address] Dewayne Pena MD [address] [place] [address] 10/06/2024 2:20 PM EDT Office Visit [facility]umatology [facility] [address] [facility] [phone] Timo Guzman MD [address] [place] [address] 10/09/2024 10:30 AM EDT Office Visit Cardiology, [facility] 132 [facility] [place] [address] Mike Graves, [address] [facility] [place] [address] 02/23/2025 10:00 AM EDT Office Visit Pulmonary Medicine, [facility] 132 [facility] [place] [address] Juan Pablo Marsh [facility] [address] [facility] [address] 05/27/2025 1:20 PM EST Office Visit Dermatology [facility] [address] [place] [address] Jonnathan House PA-C [address] [place] [address] Health Maintenance Due Date Last Done Comments Meningitis B Vaccine (Bexsero/Trumemba) (1 of 5 - Increased Risk) 09/23/1960 Adult Wellness Visit 06/22/2022 06/22/2021 Depression Screening 03/06/2023 03/06/2022 COVID-19 Vaccine (2023-2 5 season) 2024 04/10/2024, 03/27/2023, 11/09/2022, Additional history exists TSH 01/17/2025 01/18/2024, 12/17, 12/07/2021, Additional history exists Zoster Vaccines Completed 08/30/2021, 06/13/2019 Influenza Vaccine (FLU shot) Completed 09/2023, 03/16/2023, 04/07/2022, Additional history exists Cologuard Discontinued 08/21/2024, 07/20, 08/13/2024, Additional history exists Colorectal Cancer Screening Discontinued Colonoscopy Discontinued Fecal Occult Blood Test Discontinued Sigmoidoscopy Discontinued documented as of this encounter Medical Devices Implanted Type Area Manager Of Drilling Device Identifier Shelf Expiration Date Model / Serial / Lot Cath Thermodilution 6fr - [id number] Implanted:Qty: 1 on 03/07/2023 by Armando Beltran MD at [facility] [employer]YN [id number] 10/10/2024 [id number] / / [id number] Valve Aortic Transcath Fx 34mm - [id number] Implanted:Qty: 1 on 05/03/2023 by Armando Beltran MD at [facility] [employer] [id number] 08/10/2024 EVOLUTFX- 34 / [id number] / [id number] documented as of this encounter Advance Directives Documents on File Type Date Recorded 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 Question Answer Comments Discussion of Advance Directives occurred with: Patient * Full Code Date Activated Date Inactivated Comments 04/11/2022 8:42 AM 04/11/2022 2:07 PM Question Answer Comments Discussion of Advance Directives occurred with: Patient * Full Code Date Activated Date Inactivated Comments 04/11/2022 6:32 AM 04/11/2022 8:41 AM Question Answer Comments Discussion of Advance Directives occurred with: Patient Care Teams Ham Passer Relationship Specialty Start Date End Date Dewayne Pena MD [address] [place] [address] PCP - General Family Medicine 04/30/23 documented as of this encounter
--- OUTSIDE RECORDS SUMMARY | 2024-08-30 14:20 | External Medical Summary | Summary of Care ---
Author Name Unknown Organization [facility] Address [address] [place] [address] Phone [phone] Care Team Providers Care Ophthalmic Assistant Name Role Phone Dewayne Pena MD Primary Care Provider [phone] Encounter Details Date Type Department Care Team (Late st Contact Info) Description 08/26/2024 Orders Only Pulmonary Medicine, [facility] [address] [facility] [place] [address] Juan Pablo Marsh [facility] [address] [facility] [address] Chronic respiratory failure with hypoxia (HCC)* Allergies No known active allergiesdocumented as of this encounter (statuses as of 08/26/2024) Medications Cholecalciferol 25 MCG (1000 UT) Oral [...] as of this encounter (statuses as of 08/26/2024) Active Problems Problem Noted Date Diagnosed Date [...] unknown, no SLN, Location R roman catholic Raynaud's disease without gangrene 06/02/2019 Esophageal dysmotility 05/20/2019 JULIUS (obstructive sleep apnea) 05/20/2019 ILD (interstitial lung disease) 05/20/2019 Coronary artery disease invo lving [place] coronary artery of [place] heart without angina pectoris 03/24/2019 Nonrheumatic mitral valve stenosis 03/24/2019 H/O Hodgkin's lymphoma 07/05/2018 Acquired hypothyroidism 07/05/2018 documented as of this encounter (statuses as of 08/26/2024) Resolved Problems Problem Noted Date Diagnosed Date Resolved Date Osteoporotic fracture of left hip 09/28/2022 03/14/2023 Aortic root enlargement 07/07/2022 112 08/2022 Sinus tachycardia 03/16/2022 03/14/2023 Hx of [...] as of this encounter (statuses as of 08/26/2024) Immunizations Name Administration Dates Next Due COVID-19 [...] Author No 05/04/2023 1:22 PM EST Mary Gee, MAKE UP ARTIST documented as of this encounter Plan of Treatment Upcoming Encounters Date Type Department Care Team (Late st Contact Info) Description 09/23/2024 1:20 PM EDT Office Visit Family Practice [facility] [address] [facility] [place] [address] Dewayne Pena MD [address] [facility] [place] [address] 10/06/2024 2:20 PM EDT Office Visit Rheumatology [facility] [address] [facility] [place] [phone] Timo Guzman MD [address] [place] [address] 10/09/2024 10:30 AM EDT Office Visit Cardiology, [facility] [address] [facility] [place] [address] Mike Graves DO [address] [facility] [place] [address] 02/23/2025 10:00 AM EDT Office Visit Pulmonary Medicine, [facility] [address] [facility] [place] [address] Juan Pablo Marsh MD [address] [place] [address] 05/27/2025 1:20 PM EST Office Visit Dermatology [facility] [address] [place] [address] Jonnathan House PA-C [address] [place] [address] Health Maintenance Due Date Last Done Comments Meningitis B Vaccine (Bexsero/Trumemba) (1 of 5 - Increased Risk) 09/23/1960 Adult Wellness Visit 06/22/2022 06/22/2021 Depression Screening 03/06/2023 03/06/2022 COVID-19 Vaccine (2023-07 5 season) 2024 04/10/2024, 03/27/2023, 11/09/2022, Additional history exists TSH 01/17/2025 01/18/2024, 12/17, 12/07/2021, Additional history exists Zoster Vaccines Completed 08/30/2021, 06/13/2019 Influenza Vaccine (FLU shot) Completed 09/2023, 03/16/2023, 04/07/2022, Additional history exists Cologuard Discontinued 08/13/2024, 07/20, 07/13/2021, Additional history exists Colorectal Cancer Screening Discontinued Colonoscopy Discontinued Fecal Occult Blood Test Discontinued Sigmoidoscopy Discontinued documented as of this encounter Medical Devices Implanted Type Area Cleaner Carpet And Upholstery Device Identifier Shelf Expiration Date Model / Serial / Lot Cath Thermodilution 6fr - [id number] Implanted:Qty: 1 on 03/07/2023 by Armando Beltran MD at [facility] [employer] [id number] 10/10/2024 [id number] / / [id number] Valve Aortic Transcath Fx 34mm - [id number] Implanted:Qty: 1 on 05/03/2023 by Armando Beltran MD at [facility] [employer] [id number] 08/10/2024 EVOLUTFX- 34 / [id number] / [id number] documented as of this encounter Visit Diagnoses Diagnosis Chronic respiratory failure with hypoxia (HCC)- Primary Chronic respiratory failure documented in this encounter Advance Directives Documents on File Type Date Recorded Patient Preprint Analyst Expl anation POLST 03/06/2022 [place] OR DERS FOR LIFE-SUSTAINING TREATMENT POLST 12/13/2021 [place] OR DERS FOR LIFE-SUSTAINING TREATMENT * Full [...] Advance Directives occurred with: Patient Care Teams Ophthalmic Assistant Relationship Specialty Start Date End Date Dewayne Pena MD [address] [place] [address] PCP - General Family Medicine 04/30/23 documented as of this encounter
--- OUTSIDE RECORDS SUMMARY | 2024-08-30 14:21 | External Medical Summary | Summary of Care ---
Author Name Unknown Organization [facility] Address [address] [place] [address] Phone [phone] Care Team Providers Care Billing Administrator Name Role Phone Dewayne Pena MD Primary Care Provider [phone] Reason for Visit * Reason Onset Date Comments Advice 08/14/2024 Increased breath ing trouble Encounter Details Date Type Department Care Team (Late st Contact Info) Description 08/14/2024 Telephone Pulmonary Medicine, [facility] [address] [facility] [place] [address] Juan Pablo Marsh MD [address] [facility] [id number] Advice (Increased breathing trouble) Allergies No known active allergiesdocumented as of this encounter (statuses as of 08/14/2024) Medications Cholecalciferol 25 MCG (1000 UT) Oral [...] as of this encounter (statuses as of 08/14/2024) Active Problems Problem Noted Date Diagnosed Date [...] 2013, Depth unknown, no SLN, Location R evangelical Raynaud's disease without gangrene 06/02/2019 Esophageal dysmotility 05/20/2019 JULIUS (obstructive sleep apnea) 05/20/2019 ILD (interstitial lung disease) 05/20/2019 Coronary artery disease invo lving [place] coronary artery of [place] heart without angina pectoris 03/24/2019 Nonrheumatic mitral valve stenosis 03/24/2019 H/O Hodgkin's lymphoma 07/05/2018 Acquired hypothyroidism 07/05/2018 documented as of this encounter (statuses as of 08/14/2024) Resolved Problems Problem Noted Date Diagnosed Date Resolved Date Osteoporotic fracture of left hip 09/28/2022 03/14/2023 Aortic root enlargement 07/07/2022 11/2 08/2022 Sinus tachycardia 03/16/2022 03/14/2023 Hx of nonmelanoma skin cancer 03/24/2021 05/14/2023 Overview (03/24/2021): Hx MM date 2013, Depth unknown, no SLN, Location R evangelical (still no path in chart, pt confirmed that he had surgery for melanoma at that site and for BCC prior, see below) BCC R forehead 2008 ([facility]) Prediabetes 02/28/2021 02/01/2023 Overview: Per Prediabetes protocol Moderate protein malnutrition 12/15/2019 03/14/2023 Ankylosing spondylitis of cervical region 12/15/2019 07/07/2022 PSVT (paroxysmal supraventri cular tachycardia) 12/15/2019 03/21/2024 Moderate aortic stenosis 03/24/2019 H/O atrial fibrillation with out current medication 07/05/2018 03/14/2023 documented as of this encounter (statuses as of 08/14/2024) Immunizations Name Administration Dates Next Due COVID-19 mRNA, LNP-s, No Pre serve, 2-Dose Series (Moderna) 08/21/2020,07/17/2020 COVID-19, MRNA-LNP, PF, 30 M CG/0.3 mL, 12 YRS AND ABOVE, IM ([facility]) 04/10/2024,03/27/2023 COVID-19, mRNA, LNP-s, PF, B ooster, [...] Miscellaneous Notes * Telephone Encounter - Ena Charles LPN - 08/14/2024 12:49 PM EST Pt is aware of cxray order. He will come prior to his cardiology appt to have that done, and will alert his cardio provider that he had it done. He is aware someone will be calling him to schedule 6mw, and that he needs to be off of his oxygen 20-30 min before starting the test. Scheduling, please contact pt to schedule 6mw and appt with Dr Marsh. He said you can use the portal to contact him. * Telephone Encounter - Juan Pablo Marsh MD - 08/14/2024 12:37 PM EST 6 minute walk test was also ordered along with chest x-ray order. * Telephone Encounter - Ena Charles LPN - 08/14/2024 11:46 AM EST I spoke with the pt, who feels as if his oxygen needs are greater with less exertion. He is using oxygen, and his sats stay in the 90s with it; without the oxygen his sats are in the 80s. He is afebrile and denies coughing up green/yellow phlegm. He understands that Dr Marsh is not in the office this week. He has cardio appt tomorrow. He is requesting order for cxray so he can have it prior to tomorrow's cardio appt. Please sign order if appropriate. * Telephone Encounter - Elysia Salcido OSA - 08/14/2024 10:08 AM EST Patient is asking for an appointment as soon as possible because his oxygen levels are in the 80's.He feels dizzy and lightheaded. He uses his oxygen concentrator frequently. His levels get a littlebetter. It is hard for him to be away from the concentrator so he would like a portable one. . Please call [phone] to discuss documented in this encounter Plan of Treatment Upcoming Encounters Date Type Department Care Team (Late st Contact Info) Description 08/15/2024 11:30 AM EST Office Visit Cardiology, [facility] [address] [place] [address] Mike Graves DO [address] [place] [address] 09/23/2024 1:20 PM EDT Office Visit Family Practice [facility] [address] [place] [address] Dewayne Pena MD [address] [place] [address] 10/06/2024 2:20 PM EDT Office Visit Rheumatology [facility] [address] [place] [phone] Timo uGzman MD [address] [place] [address] 02/23/2025 10:00 AM EDT Office Visit Pulmonary Medicine, [facility] [address] [place] [address] Juan Pablo Marsh MD [address] [facility] [address] 05/27/2025 1:20 PM EST Office Visit Dermatology [facility] [address] [place] [address] Jonnathan House PA-C [address] [place] [address] Scheduled Orders Name Type Priority Associated Diagnoses Orde r Schedule XR CHEST 2 VIEWS Medical Imaging Routine Chronic respiratory failure with hypoxia (HCC) SOB (shortness of breath) Expected: 08/15/2024 (Approximate), Expires: 09/11/2025 PULMONARY STRESS TESTING Procedures Routine Chronic respiratory failure with hypoxia (HCC) SOB (shortness of breath) Expected: 08/15/2024, Expires: 09/11/2025 Health Maintenance Due Date Last Done Comments Meningitis B Vaccine (Bexsero/Trumemba) (1 of 5 - Increased Risk) 09/23/1960 Adult Wellness Visit 06/22/2022 06/22/2021 Depression Screening 03/06/2023 03/06/2022 COVID-19 Vaccine (2023-2 5 season) 2024 04/10/2024, 03/27/2023, 11/09/2022, Additional history exists TSH 01/17/2025 01/18/2024, 12/17, 12/07/2021, Additional history exists Cologuard Discontinued 07/22/2021, 06/19, 07/13/2021 Colorectal Cancer Screening Discontinued Zoster Vaccines Completed 08/30/2021, 06/13/2019 Influenza Vaccine (FLU shot) Completed 09/2023, 03/16/2023, 04/07/2022, Additional history exists Colonoscopy Discontinued Fecal Occult Blood Test Discontinued Sigmoidoscopy Discontinued documented as of this encounter Medical Devices Implanted Type Area Ballistic Technician Device Identifier Shelf Expiration Date Model / Serial / Lot Cath Thermodilution 6fr - [id number] Implanted:Qty: 1 on 03/07/2023 by Armando Beltran MD at [facility] [employer] [place] [id number] 10/10/2024 [id number] / / [id number] Valve Aortic Transcath Fx 34mm - [id number] Implanted:Qty: 1 on 05/03/2023 by Armando Beltran MD at [facility] [employer] [id number] 08/10/2024 EVOLUTFX- 34 / [id number] / [id number] documented as of this encounter Visit Diagnoses Diagnosis Chronic respiratory failure with hypoxia (HCC)- Primary Chronic respiratory failure SOB (shortness of breath) Shortness of breath documented in this encounter Advance Directives Documents on File Type Date Recorded Patient Case Assistant Expl anation POLST 03/06/2022 [place] OR DERS FOR LIFE-SUSTAINING TREATMENT POLST 12/13/2021 [place] OR DERS FOR LIFE-SUSTAINING TREATMENT * Full [...] Advance Directives occurred with: Patient Care Teams Billing Administrator Relationship Specialty Start Date End Date Dewayne Pena MD [address] [place] [address] PCP - General Family Medicine 04/30/23 documented as of this encounter
--- OUTSIDE RECORDS SUMMARY | 2024-08-30 14:21 | External Medical Summary | Summary of Care ---
Author Name Unknown Organization [facility] Address [address] [place] [address] Phone [phone] Care Team Providers Care Lead Printer Name Role Phone Dewayne Pena MD Primary Care Provider [phone] Reason for Visit * Reason Onset Date Comments Follow Up 08/15/2024 Encounter Details Date Type Department Care Team (Late st Contact Info) Description 08/15/2024 Telephone Pulmonary Function Lab, [facility] [address] [facility] [place] [address] Juan Pablo Marsh MD [address] [facility] [place] [id number] Follow Up Allergies No known active allergiesdocumented as of this encounter (statuses as of 08/15/2024) Medications Cholecalciferol 25 MCG (1000 UT) Oral [...] as of this encounter (statuses as of 08/15/2024) Active Problems Problem Noted Date Diagnosed Date [...] Depth unknown, no SLN, Location R mu-ism Raynaud's disease without gangrene 06/02/2019 Esophageal dysmotility 05/20/2019 JULIUS (obstructive sleep apnea) 05/20/2019 ILD (interstitial lung disease) 05/20/2019 Coronary artery disease invo lving [place] coronary artery of [place] heart without angina pectoris 03/24/2019 Nonrheumatic mitral valve stenosis 03/24/2019 H/O Hodgkin's lymphoma 07/05/2018 Acquired hypothyroidism 07/05/2018 documented as of this encounter (statuses as of 08/15/2024) Resolved Problems Problem Noted Date Diagnosed Date [...] see below) [place]CC [place] forehead [place] ([place]) Prediabetes 02/28/2021 02/01/2023 Overview: Per Prediabetes protocol Moderate protein malnutrition 12/15/2019 03/14/2023 Ankylosing spondylitis of cervical region 12/15/2019 07/07/2022 PSVT (paroxysmal supraventri cular tachycardia) 12/15/2019 03/21/2024 Moderate aortic stenosis 03/24/2019 H/O atrial fibrillation with out current medication 07/05/2018 03/14/2023 documented as of this encounter (statuses as of 08/15/2024) Immunizations Name Administration Dates Next Due COVID-19 [...] encounter Miscellaneous Notes * Telephone Encounter - Toya Stark OSA - 08/15/2024 11:22 AM EST Attempted to contact patient to schedule Pulmonary function orders. No answer-LVM documented in this encounter Plan of Treatment Upcoming Encounters Date Type Department Care Team (Late st Contact Info) Description 08/19/2024 8:00 AM EST Appointment Radiology, [address] [address] 09/23/2024 1:20 PM EDT Office Visit Family Practice [facility] [address] [place] [address] Dewayne Pena MD [address] [address] 10/06/2024 2:20 PM EDT Office Visit Rheumatology [facility] [address] [place] [phone] Timo Guzman MD [address] [facility] [address] 10/09/2024 10:30 AM EDT Office Visit Cardiology, [facility] [address] [place] [address] Mike Graves, [address] [place] [address] 02/23/2025 10:00 AM EDT Office Visit Pulmonary Medicine, [facility] [address] [place] [address] Juan Pablo Marsh MD [address] [place] [address] 05/27/2025 1:20 PM EST Office Visit Dermatology [facility] [address] [place] [address] Jonnathan House PA-C [address] [place] [address] Health Maintenance Due Date Last Done Comments Meningitis B Vaccine (Bexsero/Trumemba) (1 of 5 - Increased Risk) 09/23/1960 Adult Wellness Visit 06/22/2022 06/22/2021 Depression Screening 03/06/2023 03/06/2022 COVID-19 Vaccine (2023- 5 season) 2024 04/10/2024, 03/27/2023, 11/09/2022, Additional history exists TSH 01/17/2025 01/18/2024, 12/17, 12/07/2021, Additional history exists Cologuard Discontinued 07/22/2021, 06/19, 07/13/2021 Colorectal Cancer Screening Discontinued Zoster Vaccines Completed 08/30/2021, 06/13/2019 Influenza Vaccine (FLU shot) Completed 09/2023, 03/16/2023, 04/07/2022, Additional history exists Colonoscopy Discontinued Fecal Occult Blood Test Discontinued Sigmoidoscopy Discontinued documented as of this encounter Medical Devices Implanted Type Area Coke Burner Device Identifier Shelf Expiration Date Model / Serial / Lot Cath Thermodilution 6fr - [id number] Implanted:Qty: 1 on 03/07/2023 by Armando Beltran MD at [facility] [employer] [id number] 10/10/2024 [id number] / / [id number] Valve Aortic Transcath Fx 34mm - [id number] Implanted:Qty: 1 on 05/03/2023 by Armando Beltran MD at [facility] [employer] [id number] 08/10/2024 EVOLUTFX- 34 / [id number] / [id number] documented as of this encounter Advance Directives Documents on File Type Date Recorded Patient Cdc Associate Expl anation POLST 03/06/2022 [place] OR DERS FOR LIFE-SUSTAINING TREATMENT POLST 12/13/2021 [place] OR DERS FOR LIFE-SUSTAINING TREATMENT * Full [...] Advance Directives occurred with: Patient Care Teams Lead Printer Relationship Specialty Start Date End Date Dewayne Pena MD [address] [address] PCP - General Family Medicine 04/30/23 documented as of this encounter
--- OUTSIDE RECORDS SUMMARY | 2024-08-30 14:21 | External Medical Summary | Summary of Care ---
Author Name Unknown Organization [facility] Address [address] [place] [address] Phone [phone] Care Team Providers Care Carton Filler Name Role Phone Dewayne Pena MD Primary Care Provider [phone] [phone] Reason for Visit * Reason Onset Date Comments Advice 08/11/2024 Encounter Details Date Type Department Care Team (Late st Contact Info) Description 08/11/2024 Telephone Vascular Surg [facility] [address] [place] [address] German Tay MD [address] [place] [address] Advice Allergies No known active allergiesdocumented as of this encounter (statuses as of 08/20/2024) Medications Cholecalciferol 25 MCG (1000 UT) Oral [...] as of this encounter (statuses as of 08/20/2024) Active Problems Problem Noted Date Diagnosed Date [...] 2013, Depth unknown, no SLN, Location R pentecostalism Raynaud's disease without gangrene 06/02/2019 Esophageal dysmotility 05/20/2019 JULIUS (obstructive sleep apnea) 05/20/2019 ILD (interstitial lung disease) 05/20/2019 Coronary artery disease invo lving [place] coronary artery of [place] heart without angina pectoris 03/24/2019 Nonrheumatic mitral valve stenosis 03/24/2019 H/O Hodgkin's lymphoma 07/05/2018 Acquired hypothyroidism 07/05/2018 documented as of this encounter (statuses as of 08/20/2024) Resolved Problems Problem Noted Date Diagnosed Date Resolved Date Osteoporotic fracture of left hip 09/28/2022 03/14/2023 Aortic root enlargement 07/07/2022 1108/2022 Sinus tachycardia 03/16/2022 03/14/2023 Hx of nonmelanoma skin cancer 03/24/2021 05/14/2023 Overview (03/24/2021): Hx MM date 2013, Depth unknown, no SLN, Location R pentecostalism (still no path in chart, pt confirmed that he had surgery for melanoma at that site and for BCC prior, see below) BCC R forehead 2008 ([facility]) Prediabetes 02/28/2021 02/01/2023 Overview: Per Prediabetes protocol Moderate protein malnutrition 12/15/2019 03/14/2023 Ankylosing spondylitis of cervical region 12/15/2019 07/07/2022 PSVT (paroxysmal supraventri cular tachycardia) 12/15/2019 03/21/2024 Moderate aortic stenosis 03/24/2019 H/O atrial fibrillation with out current medication 07/05/2018 03/14/2023 documented as of this encounter (statuses as of 08/20/2024) Immunizations Name Administration Dates Next Due COVID-19 [...] encounter Miscellaneous Notes * Telephone Encounter - Brandie Saleem CRNP [...] to reschedule * Telephone Encounter - Matt Medellin OSA - 08/14/2024 10:55 AM EST Called and [...] from [place]. He states he sees his Manpower Development Manager on Sunday and he also has call [...] Team (Late st Contact Info) Description 08/26/2024 8:00 AM EDT PulmDiagnostic Pulmonary Function Lab, [facility] [address] [place] [address] [address] [place] [address] 09/23/2024 1:20 PM EDT Office Visit Family Practice [facility] [address] [place] [address] Dewayne Pena MD [address] [place] [address] 10/06/2024 2:20 PM EDT Office Visit Rheumatology [facility] [address] [place] [phone] Timo Guzman MD [facility] [place] [address] 10/09/2024 10:30 AM EDT Office Visit Cardiology, [facility] 132 [facility] [place] [address] Mike Graves DO 132 [facility] [place] [address] 02/23/2025 10:00 AM EDT Office Visit Pulmonary Medicine, [facility] 132 [facility] [place] [address] Juan Pablo Marsh MD [address] [place] [address] 05/27/2025 1:20 PM EST Office Visit Dermatology [facility] [address] [place] [address] Jonnathan House PA-C [address] [place], [place] [phone] Health Maintenance Due Date Last Done Comments [...] this encounter Medical Devices Implanted Type Area Scarfer Operator Device Identifier Shelf Expiration Date Model / Serial / Lot Cath Thermodilution 6fr - [id number] Implanted:Qty: 1 on 03/07/2023 by Armando Beltran MD at [facility] [place] [employer] [id number] 10/10/2024 [id number] / / [id number] Valve Aortic Transcath Fx 34mm - [id number] Implanted:Qty: 1 on 05/03/2023 by Armando Beltran MD at [facility] [place] [employer] [id number] 08/10/2024 EVOLUTFX- 34 / [id number] / [id number] documented as of this encounter Advance Directives Documents on File Type Date Recorded Patient Industrial Recruiter Expl anation POLST 03/06/2022 [place] OR DERS FOR LIFE-SUSTAINING TREATMENT POLST 12/13/2021 [place] OR DERS FOR LIFE-SUSTAINING TREATMENT * Full [...] Advance Directives occurred with: Patient Care Teams Carton Filler Relationship Specialty Start Date End Date Dewayne Pena MD [address] [facility] [place] [address] PCP - General Family Medicine 04/30/23 documented as of this encounter
--- OUTSIDE RECORDS SUMMARY | 2024-08-30 14:21 | External Medical Summary | Summary of Care ---
Author Name Unknown Organization [facility] Address [address] [place] [address] Phone [phone] Care Team Providers Care Customer Services Supervisor Name Role Phone Dewayne Pena MD Primary Care Provider [phone] Reason for Visit * Reason Comments Follow Up Increased SOB, need for oxygen over the past 2-3 weeks. Chest tightness with low O2 readings. [place] very dizzy/lightheaded and N&V yesterday. Better today but still feels lightheaded and nauseous today. Increased swelling around feet and ankles. Encounter Details Date Type Department Care Team (Latest Contact Info) Description 08/15/2024 11:30 AM EST Office Visit Cardiology, [facility] [address] [facility] [place] [address] Mkie Graves, [address] [facility] [address] SOB (shortness of breath) on exertion*; Acute heart failure with preserved ejection fraction (HFpEF) ([facility]); PAF (paroxysmal atrial fibrillation) ([facility]); S/P TAVR (transcatheter aortic valve replacement); PSVT (paroxysmal supraventricular tachycardia) ([facility]); LBBB (left bundle branch block); Nonrheumatic tricuspid valve regurgitation Allergies No known active allergiesdocumented as of [...] Fluoride 5000 PPM 1.1 % Dental Gel 5 Active Ipratropium-Albut marlo 0.5-2.5 (3) MG/3ML Inhalation [...] Depth unknown, no SLN, Location R mandaen Raynaud's disease without gangrene 06/02/2019 Esophageal dysmotility [...] prior, see below) BCC R forehead 2008 ([facility]) Prediabetes 02/28/2021 02/01/2023 Overview: Per Prediabetes [...] CG/0.3 mL, 12 YRS AND ABOVE, IM [facility] 04/10/2024,03/27/2023 COVID-19, mRNA, LNP-s, PF, B ooster, [...] Sign Reading Time Taken Comments Blood Pressure 120/56 08/15/2024 11:58 AM EST Pulse 84 08/15/2024 11:58 AM EST Temperature - - Respiratory Rate 20 08/15/2024 11:58 AM EST Oxygen Saturation 84% 08/15/2024 11:58 AM EST Inhaled Oxygen Concentration - - Weight 73 kg (161 lb) 08/15/2024 11:58 AM EST Height - - Body Mass Index 21.84 07/29/2024 9:46 AM EST documented in this encounter Functional Status * Do you have serious difficulty walking or climbing stairs? (5 years old or older) Answer Date of Assessment Author No 05/04/2023 1:22 PM EST Mary Gee MSW documented as of this encounter Progress Notes * Mike Graves, DO - 08/15/2024 12:02 PM EST 08/15/2024 Cardiology Follow Up SUBJECTIVE: History of Present Illness Guido Daley is a 73 year old male with a history of transcatheter aortic valve replacement who presents for a routine follow-up and evaluation of low oxygen levels and lightheadedness. He is accompanied by his spouse, Mattie, and his daughter, Eun, participated by speaker phone. He has been experiencing low pulse oximetry levels, with readings in the low 80s without supplemental oxygen, a decline from his baseline in the low 90s a month ago. Over the past two to three weeks,he has experienced lightheadedness and shortness of breath, particularly in the mornings when off oxygen. He also reports episodes of vertigo and vomiting, with a particularly severe episode yesterday. Episodes are exacerbated when standing from a seated position. The patient had been tentatively scheduled for a Vascular Surgery procedure on 08/18/2024 with plans to perform a left greater saphenous vein ablation and phlebectomy. This was tentatively placed on hold due to the patient's acute symptoms of dyspnea, lightheadedness, and noted low oxygen saturation pulse oximetry. He has noticed increased swelling in his legs over the past two to three weeks, which is a new development. He does not currently take any diuretics. He has a history of atrial fibrillation, supraventricular tachycardia, and atrial flutter, currently managed with low-dose sotalol. No recent palpitations or flutters are reported. He is currently taking Eliquis, with his most recent dose taken this morning. Past Medical History: 1.H/o severe aortic stenosis status post TAVR (# 34mm Medtronic Evolut FX Aortic Valve), 05/03/2023 1.Postop complicated by left bundle branch block which resolved on its own. No permanent pacemaker placed. 2.History of atrial flutter status post tricuspid isthmus ablation, 2013 3.Symptomatic atrial fibrillation status post PVI, 05/2017 4.Mild nonobstructive CAD-- 40% pLAD stenosis and 40% RCA per pre TAVR cath 02/2023 5.Hodgkin's lymphoma for which he was treated with splenectomy and radiation therapy at the age of 27 6.Enlarged aortic root, 4.1 cm 7.Severe MR confirmed by [facility]ANNA[facility] 02/2023 8.Interstitial lung disease 9.Positive NEREYDA 10.JULIUS, on CPAP 11.Esophageal dysmotility 12.Hypothyroidism 13.Prediabetes Extensive ROS: All systems reviewed & are unremarkable except as noted in HPI & below Cardiovascular (chest pain/palpitations/fluttering/diaphoresis/dyspnea on exertion/paroxysmally nocturnal dyspnea):Negative Review of patient's allergies indicates: No Known Allergies Current Outpatient Medications Medication Sig Dispense Refill Cholecalciferol 25 MCG (1000 UT) Oral Capsule Take 1 Capsule by mouth in the morning. CPAP every night at bedtime . Auto 5-20 cm Turmeric Curcumin Oral Capsule Take by mouth 1 Capsule daily . Ocuvite Adult Formula Oral Capsule Take by mouth. Amoxicillin 500 MG Oral Capsule (Amoxil) Take 4 capsules 1 hour prior to any dental work 4 Capsule 4 Nac 600 600 MG Oral Capsule (Acetylcysteine) Take 1 Capsule by mouth in the morning and 1 Capsule before bedtime. Atorvastatin Calcium 20 MG Oral Tablet (Lipitor) Take 1 Tablet by mouth in the morning. 90 Tablet 3 Apixaban 5 MG Oral Tablet (Eliquis) Take 1 Tablet by mouth in the morning and 1 Tablet before bedtime. 60 Tablet 11 Saccharomyces boulardii 250 MG Oral Capsule (Florastor) Take 1 Capsule by mouth in the morning. Vitamin B-12 1000 MCG Sublingual Tablet Sublingual Place 1 Tablet under the tongue in the morning. NATURAL SUPPLEMENT Take 1 Tablet by mouth in the morning. Herbal supplement for lungs. Sotalol HCl 80 MG Oral Tablet (Betapace) One half tablet by mouth two times per day 90 Tablet 3 Levothyroxine Sodium 75 MCG Oral Tablet (Levoxyl) TAKE 1 TABLET BY MOUTH EVERY DAY IN THE MORNING (AT LEAST 30 MIN PRIOR TO BREAKFAST OR OTHER MEDS) 90 Tablet 3 Tavaborole 5 % External Solution APPLY TO AFFECTED TOENAILS ONCE A DAY FOR 6 MONTHS Sodium Fluoride 5000 PPM 1.1 % Dental Gel Ipratropium-Albuterol 0.5-2.5 (3) MG/3ML Inhalation Solution (Duoneb) Inhale 3 mL by mouth every 6 hours as needed. Comirnaty 30 MCG/0.3ML Intramuscular Suspension Prefilled Syringe Inject into a large muscle. (Patient not taking: Reported on 05/26/2024) 0.3 mL 0 No current facility-administered medications for this visit. OBJECTIVE/PHYSICAL EXAMINATION: BP 120/56 (BP Site: Left Arm, BP Position: Sitting, BP Cuff Size: Regular) | Pulse 84 | Resp 20 | Wt 73 kg (161 lb) | SpO2 84% | BMI 21.84 kg/m | BSA 1.93 m General: no acute distress and stated age, thin Eyes: conjunctiva are pink and non-injected, sclera clear Neck: normal jugular venous pulse, no hepatojugular reflux Chest: normal shape and normal respiratory effort Lungs: clear to auscultation , no rales rhonchi or wheezing Cardiac Exam: - regular heart sounds, 1/6 systolic murmur Abdomen: abdomen soft, non-tender, no abnormal masses and no hepatosplenomegaly Musculoskeletal: no gait disturbance, no weakness, scoliosis noted on exam and chest x-ray Extremities: 1 to 2+ bilateral lower extremity edema at the sock line/mid tibia Neuro: grossly normal exam Psych: appropriate affect and insight. Data: Results RADIOLOGY Chest X-ray (08/15/2024): Right pleural effusion, reduced lung volume on the right side Chest X-ray (04/2023): Improved lung volume, presence of temporary pacemaker post TAVR DIAGNOSTIC EKG (08/15/2024): Sinus rhythm at 80 bpm, age undetermined septal infarct pattern, stable findings compared to previous Summary of ttecho performed 05/19/24: The qualitative LV ejection fraction is 55-59% (normal). The LV wall thickness is moderately increased (concentric). The left atrium is moderately enlarged (42-48 ml/m^2). The right atrium is severely enlarged. The patient is status post TAVR with Evolut Pro prosthetic valve. The aortic valve prosthesis systolic gradients are normal for this type prosthesis. There is moderate to severe perivalvular aortic regurgitation with an eccentric jet that impinges on the anterior mitral valve leaflet. There is severe mitral annular calcification. Mild mitral regurgitation is present. Moderate to severe tricuspid regurgitation is present. The estimated pulmonary artery systolic pressure is 56mm Hg. There is a small [id number] interatrial shunt per color Doppler interrogation. Findings suggest PFO versus small ASD. Compared to prior study of 07/02/2023, there is no significant change. Assessment & Plan Right Pleural Effusion Right pleural effusion likely secondary to congestive heart failure with preserved ejection fraction. Symptoms include shortness of breath, lightheadedness, and leg swelling over the past 2-3 weeks. Chest x-ray shows significant fluid collection on the right side compared to previous imaging. Discussed thoracentesis risks (bleeding, infection, pneumothorax) and benefits. Procedure to be done under ultrasound guidance. Shared decision-making with patient and daughter, who agreed to proceed. -In collaboration with Dr Marsh of pulmonary medicine, scheduled US guided thoracentesis for Monday, August 19, 2024, at 8:00 AM at [facility] with interventional radiology - Hold Eliquis starting Saturday, August 17, 2024, through the day of the procedure - Resume Eliquis on Tuesday, August 20, 2024 - Advise patient to go to the nearest emergency room if symptoms worsen before the procedure Congestive Heart Failure with Preserved Ejection Fraction Contributing to fluid accumulation in lungs and legs. Symptoms include shortness of breath, lightheadedness, and leg swelling. Echocardiogram shows normal prosthetic aortic valve function, moderate mitral regurgitation, and moderate to severe tricuspid regurgitation. Diuretic therapy limited due todizziness risk. Mitral valve severely calcified; open-heart surgery not viable due to lung condition. - Monitor symptoms and consider diuretic therapy if necessary after thoracentesis - Follow-up appointment in a few weeks to reassess symptoms and discuss potential diuretic therapy Atrial Fibrillation and Other Atrial Arrhythmias Atrial fibrillation, supraventricular tachycardia, and atrial flutter. Currently on low-dose sotalol. EKG shows sinus rhythm at 80 bpm with no atrial fibrillation. No recent palpitations or fluttering reported. - Continue current dose of sotalol -patient with a history of highly symptomatic atrial arrhythmias, and although sotalol can exacerbate fluid accumulation, would recommend that we continue it for now. - Monitor for symptoms of arrhythmia and report any new episodes Follow-up - Follow-up appointment in a few weeks to reassess symptoms and discuss potential diuretic therapy - Coordinate care with Dr. Marsh, Dr. Pena, and Dr. Lindsay - Send updates to Dr. Marsh, Dr. Pena, and Dr. Lindsay. Follow Up: Return in about 4 weeks (around 09/12/2024) for Clinic Visit. | For: Clinic Visit | Check-out note: Follow up with Dr Rios in 4 weeks, [place] for imaging . Patient seen in longitudinal follow up of the above issues with assessment and plan as documented. Mike Graves, DO Cardiology, [address] [place] [address] Text in this note was generated using an ambient documentation service. I discussed the use of a device to record and summarize our discussion today. All persons present during the encounter consented to its use. documented in this encounter Procedure Notes * Nikolas Russell DO - 08/15/2024 12:06 PM ESTAssociated Order(s): EKG REASON FOR STUDY: f/u sotalol;f/u sotalol CONCLUSIONS: Normal sinus rhythm Septal infarct (cited on or before 05-May-2023) Abnormal ECG When compared with ECG of 13-Aug-2023 09:06, Premature atrial complexes are no longer Present Questionable change in The axis Ventricular Rate: 80 Atrial Rate: 80 NV Interval: 186 QRS Duration: 90 QT/QTc: 406/468 ms P-R-T Edison: 72 : 23 : 38 degrees documented in this encounter Nursing Notes * Nadine Mg CMA - 08/15/2024 12:12 PM EST Chief Complaint Patient presents with Follow Up Increased SOB, need for oxygen over the past 2-3 weeks. Chest tightness with low O2 readings. [place] very dizzy/lightheaded and N&V yesterday. Better today but still feels lightheaded and nauseous today. Increased swelling around feet and ankles. Examination Room: 12 Name: Guido Daley Date of : (1950). Reason for Visit: f/u with concerns Interim Hospitalization(s): none Problems/Concerns: see chief complaint Chest Pain/SOB: see chief complaint [facility] Discussed: Not applicable My [facility] is a way you can talk to [...] Description 08/19/2024 8:00 AM EST Appointment Radiology, [facility] [address] [place] [address] 08/26/2024 8:00 AM EDT PulmDiagnostic Pulmonary Function Lab, [facility] [address] [place] [address] [address], [address] [place] [address] 09/23/2024 1:20 PM EDT Office Visit Family Practice [facility] [address] [place] [address] Dewayne Pena MD [address] [place] [address] 10/06/2024 2:20 PM EDT Office Visit Rheumatology [facility] [address] [place] [id number] Timo Guzman MD [facility], [place] [address] 10/09/2024 10:30 AM EDT Office Visit Cardiology, [facility] [address] [place] [address] Mike Graves, [address] [place] [address] 02/23/2025 10:00 AM EDT Office Visit Pulmonary Medicine, [facility] [address] [place] [address] Juan Pablo Marsh MD [address] [place] [address] 05/27/2025 1:20 PM EST Office Visit Dermatology [address] [place] [phone] Jonnathan House PA-C [address] [place] [address] Health Maintenance Due Date Last Done Comments [...] Medical Devices Implanted Type Area Home Health Outreach Coordinator Device Identifier Shelf Expiration Date Model / Serial / Lot Cath Thermodilution 6fr - [id number] Implanted:Qty: 1 on 03/07/2023 by Armando Beltran MD at [facility] [employer] [place] [id number] 10/10/2024 [id number] / / [id number] Valve Aortic Transcath Fx 34mm - [id number] Implanted:Qty: 1 on 05/03/2023 by Armando Beltran MD at [facility] [employer] [id number] 08/10/2024 EVOLUTFX- 34 / [id number] / [id number] documented as of this encounter Procedures Procedure Name Priority Date/Time Associated Diagnosis Comments NV ECG ROUTINE ECG W/LEAST 12 LDS W/I&R Routine 08/15/2024 12:06 PM EST PAF (paroxysmal atrial fibrillation) ([facility]) S/P TAVR (transcatheter aortic valve replacement) PSVT (paroxysmal supraventricular tachycardia) ([facility]) LBBB (left bundle branch block) SOB (shortness of breath) on exertion documented in this encounter Results * EKG (08/15/2024 12:06 PM EST) 08/15/2024 12:0 6 PM EST Narrative Procedure Note Nikolas Russell DO - 08/15/2024 12:06 PM EST REASON FOR STUDY: f/u sotalol;f/u sotalol CONCLUSIONS: Normal sinus rhythm Septal infarct (cited on or before 05-May-2023) Abnormal ECG When compared with ECG of 13-Aug-2023 09:06, Premature atrial complexes are no longer Present Questionable change in The axis Ventricular Rate: 80 Atrial Rate: 80 NV Interval: 186 QRS Duration: 90 QT/QTc: 406/468 ms P-R-T Edison: 72 : 23 : 38 degrees Mike Graves DO EKG Final Result [facility] documented in this encounter Visit Diagnoses Diagnosis SOB (shortness of breath) on exertion- Primary Shortness of breath Acute heart failure with preserved ejection fraction (HFpEF) ([facility]) PAF (paroxysmal atrial fibrillation) ([facility]) Atrial fibrillation S/P TAVR (transcatheter aortic valve replacement) Heart valve replaced by other means PSVT (paroxysmal supraventricular tachycardia) ([facility]) Paroxysmal supraventricular tachycardia LBBB (left bundle branch block) Other left bundle branch block Nonrheumatic tricuspid valve regurgitation Tricuspid valve disorders, specified as nonrheumatic documented in this encounter Advance Directives Documents on File Type Date Recorded Patient Paper Guillotine Operator Expl anation POLST 03/06/2022 [place] DERS FOR LIFE-SUSTAINING TREATMENT POLST 12/13/2021 [place] DERS FOR LIFE-SUSTAINING TREATMENT * Full [...] Advance Directives occurred with: Patient Care Teams Customer Services Supervisor Relationship Specialty Start Date End Date Dewayne Pena MD [address] [place] [address] PCP - General Family Medicine 04/30/23 documented as of this encounter"
--- OUTSIDE RECORDS SUMMARY | 2024-08-30 14:21 | External Medical Summary | Summary of Care ---
Author Name Unknown Organization [facility] Address [address] [place] [address] Phone [phone] Care Team Providers Care Needleworker Name Role Phone Dewayne Pena MD Primary Care Provider [phone] Encounter Details Date Type Department Care Team (Late st Contact Info) Description 08/15/2024 Telephone Pulmonary Medicine, [facility] [address] [facility] [place] [id number] Juan Pablo Marsh [facility] [address] [facility] [address] Allergies No known active allergiesdocumented as of this encounter (statuses as of 08/16/2024) Medications Cholecalciferol 25 MCG (1000 UT) Oral [...] as of this encounter (statuses as of 08/16/2024) Active Problems Problem Noted Date Diagnosed Date [...] Depth unknown, no SLN, Location R orthodoxy Raynaud's disease without gangrene 06/02/2019 Esophageal dysmotility 05/20/2019 JULIUS (obstructive sleep apnea) 05/20/2019 ILD (interstitial lung disease) 05/20/2019 Coronary artery disease invo lving viejas coronary artery of viejas heart without angina pectoris 03/24/2019 Nonrheumatic mitral valve stenosis 03/24/2019 H/O Hodgkin's lymphoma 07/05/2018 Acquired hypothyroidism 07/05/2018 documented as of this encounter (statuses as of 08/16/2024) Resolved Problems Problem Noted Date Diagnosed Date [...] prior, see below) BCC R forehead 2008 ([facility]) Prediabetes 02/28/2021 02/01/2023 Overview: Per Prediabetes protocol Moderate protein malnutrition 12/15/2019 03/14/2023 Ankylosing spondylitis of cervical region 12/15/2019 07/07/2022 PSVT (paroxysmal supraventri cular tachycardia) 12/15/2019 03/21/2024 Moderate aortic stenosis 03/24/2019 H/O atrial fibrillation with out current medication 07/05/2018 03/14/2023 documented as of this encounter (statuses as of 08/16/2024) Immunizations Name Administration Dates Next Due COVID-19 [...] No 03/07/2024 Does the household have a [facility] source of income? (Household - for ages [...] encounter Miscellaneous Notes * Telephone Encounter - Juan Pablo Marsh MD - 08/15/2024 4:40 PM EST Care plan was discussed with Dr. Ross Ellison. Chest x-ray was reviewed. Right pleural effusion noted. Limited options available for additional diuresis. Agree with plan regarding IR guided thoracentesis. IR was contacted. Patient has been scheduled for thoracentesis on Sunday at 8:00 a.m.. Anticoagulation will be withheld starting Sunday for procedure on Sunday. Please contact patient to confirm above-mentioned scheduling and discontinuation of anticoagulationtherapy Plan has been communicated. documented in this encounter Plan of Treatment Upcoming Encounters Date Type Department Care Team (Late st Contact Info) Description 08/19/2024 8:00 AM EST Appointment Radiology, [address] [place] [address] 08/26/2024 8:00 AM EDT PulmDiagnostic Pulmonary Function Lab, [facility] [address] [place] [address] [address], [address] [place] [address] 09/23/2024 1:20 PM EDT Office Visit Family Practice [facility] [address] [place] [address] Dewayne Pena MD [address] [facility] [place], [place] [address] 10/06/2024 2:20 PM EDT Office Visit Rheumatology [facility] [address] [place] [phone] Timo Guzman MD [facility] [place] [address] 10/09/2024 10:30 AM EDT Office Visit Cardiology, [facility] [address] [facility] [place] [address] Mike Graves DO [facility] [place] [address] 02/23/2025 10:00 AM EDT Office Visit Pulmonary Medicine, [facility] [address] [facility] [place] [address] Juan Pablo Marsh MD [address] [facility] [address] 05/27/2025 1:20 PM EST Office Visit Dermatology [facility] [address] [place] [address] Jonnathan House PA-C [address] [place] [address] Health Maintenance Due Date Last Done [...] this encounter Medical Devices Implanted Type Area Marketing Technology Specialist Device Identifier Shelf Expiration Date Model / Serial / Lot Cath Thermodilution 6fr - [id number] Implanted:Qty: 1 on 03/07/2023 by Armando Beltran MD at [facility] [employer] [place] [id number] 10/10/2024 [id number] / / [id number] Valve Aortic Transcath Fx 34mm - [id number] Implanted:Qty: 1 on 05/03/2023 by Armando Beltran MD at [facility] [email or web address] [id number] 08/10/2024 EVOLUTFX- 34 / [id number] / [id number] documented as of this encounter Visit Diagnoses Diagnosis SOB (shortness of breath)- Primary Shortness of breath Pleural effusion on right Unspecified pleural effusion documented in this encounter Advance Directives Documents on File Type Date Recorded Patient Vibrator Equipment Tester Expl anation POLST 03/06/2022 [place] OR DERS FOR LIFE-SUSTAINING TREATMENT POLST 12/13/2021 [place] DERS FOR LIFE-SUSTAINING TREATMENT * Full [...] Advance Directives occurred with: Patient Care Teams Needleworker Relationship Specialty Start Date End Date Dewayne Pena MD [address] [place] [address] PCP - General Family Medicine 04/30/23 documented as of this encounter
--- OUTSIDE RECORDS SUMMARY | 2024-08-30 14:21 | External Medical Summary ---
Author Name Unknown Address Unknown Organization K1F:LABORATORY [facility] - [address] [place] [address] Laboratory Report Ordering Provider Test Date Status MIGUEL ÁNGEL PATEL 08/19/2024 07:22:00 Final Some reference ranges and ot her method performance specifications have not been established for this fluid. The test results must be integrated into the clinical context for interpretation. Observation Date Value Abnormality Reference (Units ) Status Clarity of Body fluid 08/19/2024 07:22:00 Clear Clear Final Color of Body fluid 08/19/2024 07:22:00 Yellow Straw, Yellow, Colorless Final Nucleated cells [#/volume] in Body fluid by Automated count 08/19/2024 07:22:00 1845 <3800 (cells/uL) Final Erythrocytes [#/volume] in Body fluid by Automated count 08/19/2024 07:22:00 5000 (cells/uL) Final Performing Location [facility]ATORY [facility] - [address] [place] [address]
--- OUTSIDE RECORDS SUMMARY | 2024-08-30 14:21 | External Medical Summary | Summary of Care ---
Author Name Unknown Organization [facility] [address] [place] [address] Phone [phone] Care Team Providers Care Front Office Help Name Role Phone Dewayne Pena MD Primary Care Provider [phone] [phone] Encounter Details Date Type Department Care Team (Latest Contact Info) Description 08/19/2024 7:23 AM EST - 08/19/2024 11:59 PM [facility] Encounter Radiology, [address] [id number] Arrived Discharge Disposition: Home - Self Care [...] disease) 05/20/2019 Coronary artery disease invo lving [place] coronary artery of [place] heart without angina pectoris 03/24/2019 Nonrheumatic [...] prior, see below) BCC R forehead 2008 ([facility]) Prediabetes 02/28/2021 02/01/2023 Overview: Per Prediabetes [...] 03/07/2024 Does the household have a re lar source of income? (Household - for ages [...] Sign Reading Time Taken Comments Blood Pressure 138/65 08/19/2024 8:07 AM EST Pulse 87 08/19/2024 8:07 AM EST Temperature - - Respiratory Rate 18 08/19/2024 8:07 AM EST Oxygen Saturation 95% 08/19/2024 8:07 AM EST Inhaled Oxygen Concentration - - Weight - - Height - - Body Mass Index - - documented in this encounter Functional Status * Do you have serious difficulty walking or climbing stairs? (5 years old or older) Answer Date of Assessment Author No 05/04/2023 1:22 PM EST Mary Gee MSW documented as of this encounter Nursing Notes * Matt Goodrich RN - 08/19/2024 8:00 AM EST 0751 Pt taken to US room for US guided right thoracentesis. Patient name, and procedure verified and informed consent reviewed with patient. Initial scan with US performed. Dr. Alfa Conrad present, reviewed procedure and complications, patient agreeable. Consent obtained, timeout completed @ 0309. Additional imaging performed and entry site determined. The site was prepped with chloraprep and draped by Dr. Conrad using sterile technique. 10 ml of 1% buffered lidocaine used as local anesthetic. Under US guidance, the 5F centesis catheter was inserted and fluid was aspirated for culture and cell count with diff. The catheter was connected to drainage tubing and gentle glass bottle suction to drain 600 ml of clear denise fluid. The catheter was removed intact. Pressure held to site for several minutes to achieve hemostasis. The site was cleaned with chloraprep and covered with xeroform, gauze, and tegaderm dressing. Pt tolerated procedure well. The specimens were taken to the lab by Keshia Munguia RN at 0820. Nurse(s): Matt Munguia RN Doctor(s): Alfa Conrad Payroll Bookkeeper(s): Jacquelin Syed documented in this encounter Plan of Treatment Upcoming Encounters Date Type Department Care Team (Late st Contact Info) Description 08/26/2024 8:00 AM EDT PulmDiagnostic Pulmonary Function Lab, [facility] [address] [place] [address] [place], [address] [facility] [place] [address] 09/23/2024 1:20 PM EDT Office Visit Family Practice [facility] [address] [place] [address] Dewayne Pena MD [address] [place] [address] 10/06/2024 2:20 PM EDT Office Visit Rheumatology [facility] [address] [place] [id number] Timo Guzman MD [address] [place] [address] 10/09/2024 10:30 AM EDT Office Visit Cardiology, [facility] [address] [place] [address] Mike Graves, [address] [facility] [place] [address] 02/23/2025 10:00 AM EDT Office Visit Pulmonary Medicine, [facility] [address] [facility] [place] [address] Juan Pablo Marsh MD [address] [place] [address] 05/27/2025 1:20 PM EST Office Visit Dermatology [address] [address] Jonnathan House PA-C [address] [place] [address], [place] [address] Health Maintenance Due Date Last Done Comments [...] this encounter Medical Devices Implanted Type Area Hot Dip Galvanizer Device Identifier Shelf Expiration Date Model / Serial / Lot Cath Thermodilution 6fr - [id number] Implanted:Qty: 1 on 03/07/2023 by Armando Beltran MD at [facility] [employer] K[employer]STYN [id number] 10/10/2024 [id number] / / [id number] Valve Aortic Transcath Fx 34mm - [id number] Implanted:Qty: 1 on 05/03/2023 by Armando Beltran MD at [facility] [employer] [id number] 08/10/2024 [employer]- 34 / [id number] / [id number] documented as of this encounter Procedures Procedure Name Priority Date/Time Associated Diagnosis Comments IR CHEST THORACENTESIS Routine 8:23 AM EST Pleural effusion on right SOB (shortness of breath) MANUAL DIFFERENTIAL, BODY FLUID Routine 08/19/2024 7:22 AM EST ALBUMIN, BODY FLUID Routine 08/19/2024 7 :22 AM EST PROTEIN, BODY FLUID Routine 08/19/2024 7 :22 AM EST GLUCOSE, BODY FLUID Routine 08/19/2024 7 :22 AM EST LD, BODY FLUID Routine 08/19/2024 7:22 AM EST CELL COUNT WITH DIFFERENTIAL, BODY FLUID Routine 08/19/2024 7:22 AM EST CELL COUNT, BODY FLUID Routine 7:22 AM EST CYTOLOGY Routine 08/19/2024 12:00 AM EST documented in this encounter Results * (ABNORMAL) MANUAL DIFFERENTIAL, BODY FLUID (08/19/2024 7:22 AM EST) Total Nucleated Cell Count, Fluid 1,845 cells/uL 08/19/2024 11:11 AM EST LAB[facility]ATORY [facility] Neutrophils % 5(H) 0 - 1 % 08/19/2024 11:11 AM EST [facility] Lymphocytes % 78(H) 18 - 36 % 08/19/2024 11:11 AM EST [facility] Monocytes % 16(L) 64 - 80 % 08/19/2024 11:11 AM EST [facility] Lining Cells % 1 0 - 2 % 08/19/2024 11:11 AM EST [facility] Absolute Neutrophils 92.25 cells/uL 08/19/2024 11:11 AM EST [facility] Absolute Lymphocytes 1,439.10 cells/uL 08/19/2024 11:11 AM EST [facility] Absolute Monocytes 295.20 cells/uL 08/19/2024 11:11 AM EST [facility] Absolute Lining Cells 18.45 cells/uL 08/19/2024 11:11 AM EST [facility] Body Fluid Right pleural fluid / Unknown Non-blood Collection / Unknown 08/19/2024 7:22 AM EST 08/19/2024 8:25 AM EST Narrative LABORATORY [facility] - 08/19/2024 11:11 AM EST Some reference ranges and other method performance specifications have not been established for this fluid. The test results must be integrated into the clinical context for interpretation. Juan Pablo Marsh MD LAB FLUID AND STOOL OR DERABLES Final Result Performing Organization Address [facility] de Phone Number LABORATORY [address] [address] * CELL COUNT, BODY FLUID (08/19/2024 7:22 AM EST) Clarity, Fluid Clear Clear 08/19/2024 10:14 AM EST LABORATORY [facility] Color, Fluid Yellow Straw, Yellow, Colorless 08/19/2024 10:14 AM EST LABORATORY [facility] Total Nucleated Cell Count, Fluid 1,845 <3,800 cells/uL 08/19/2024 10:14 AM EST LABORATORY [facility] RBC, Fluid 5,000 cells/uL 08/19/2024 10:14 AM EST LABORATORY [facility] Body Fluid Right pleural fluid / Unknown Non-blood Collection / Unknown 08/19/2024 7:22 AM EST 08/19/2024 8:25 AM EST [facility] LABORATORY [facility] - 08/19/2024 10:14 AM EST Some reference ranges and other method performance specifications have not been established for this fluid. The test results must be integrated into the clinical context for interpretation. Juan Pablo Marsh MD LAB FLUID AND STOOL OR DERABLES Final Result Performing Organization Address [facility] de Phone Number LABORATORY [address] [address] * LD, BODY FLUID (08/19/2024 7:22 AM EST) LD, Body Fluid 105 U/L 08/19/2024 5:15 PM EST LABORATORY [facility] Comment: The reference interval(s) and other method performance specifications may not be available for this body fluid. Comparison of this result with the concentration in the blood, serum, or plasma is recommended. The test result must be integrated into the clinical context for interpretation. Please refer to test catalog (https://[email or web address].com/catalog/body_fluids.html) for additional interpretive information. This test was developed and its performance characteristics determined by [employer]. It has not been cleared or approved by the US Food and Drug Administration. Body Fluid Right pleural fluid / Unknown Non-blood Collection / Unknown 08/19/2024 7:22 AM EST 08/19/2024 8:28 AM EST Juan Pablo Marsh MD LAB FLUID AND STOOL OR DERABLES Final Result Performing Organization Address [facility] Phone Number LABORATORY [address] [address] * PROTEIN, BODY FLUID (08/19/2024 7:22 AM EST) Protein, Body Fluid 2.8 g/dL 08/19 5:15 PM EST LABORATORY [facility] Comment: The reference interval(s) and other method performance specifications may not be available for this body fluid. Comparison of this result with the concentration in the blood, serum, or plasma is recommended. The test result must be integrated into the clinical context for interpretation. Please refer to test catalog (https://[email or web address] Systems/catalog/body_fluids.html) for additional interpretive information. This test was developed and its performance characteristics determined by [employer]. It has not been cleared or approved by the US Food and Drug Administration. Body Fluid Right pleural fluid / Unknown Non-blood Collection / Unknown 08/19/2024 7:22 AM EST 08/19/2024 8:28 AM EST Juan Pablo Marsh MD LAB FLUID AND STOOL OR DERABLES Final Result Performing Organization Address [facility] Co de Phone Number LABORATORY [place] [address] [place] [address] * GLUCOSE, BODY FLUID (08/19/2024 7:22 AM EST) Glucose, Body Fluid 112 mg/dL 08/19 5:15 PM EST LABORATORY [facility] Comment: The reference interval(s) and other method performance specifications may not be available for this body fluid. Comparison of this result with the concentration in the blood, serum, or plasma is recommended. The test result must be integrated into the clinical context for interpretation. Please refer to test catalog (https://www.Fitmoo/catalog/body_fluids.html) for additional interpretive information. This test was developed and its performance characteristics determined by [facility]. It has not been cleared or approved by the US Food and Drug Administration. Body Fluid Right pleural fluid / Unknown Non-blood Collection / Unknown 08/19/2024 7:22 AM EST 08/19/2024 8:28 AM EST us Juan Pablo Marsh MD LAB FLUID AND STOOL OR DERABLES Final Result Performing Organization Address City/State/[facility] Co de Phone Number LABORATORY [facility] [address] [place] [address] * ALBUMIN, BODY FLUID (08/19/2024 7:22 AM EST) Albumin, Body Fluid 1.7 g/dL 08/19 5:15 PM EST LABORATORY [facility] Comment: The reference interval(s) and other method performance specifications may not be available for this body fluid. Comparison of this result with the concentration in the blood, serum, or plasma is recommended. The test result must be integrated into the clinical context for interpretation. Please refer to test catalog (https://www.Forsitec.GaN Systems/catalog/body_fluids.html) for additional interpretive information. This test was developed and its performance characteristics determined by [employer]. It has not been cleared or approved by the US Food and Drug Administration. Body Fluid Right pleural fluid / Unknown Non-blood Collection / Unknown 08/19/2024 7:22 AM EST 08/19/2024 8:28 AM EST us Juan Pablo Marsh MD LAB FLUID AND STOOL OR DERABLES Final Result LABORATORY [address] [address] * CYTOLOGY (08/19/2024 12:00 AM EST) Final Diagnosis A. Pleural fluid, Right, Cytology: Adequacy: Satisfactory for evaluation. Category: Benign. Interpretation: Mesothelial cells, macrophages, red blood cells and mixed inflammatory cells. Other: Cellblock: The histological sections of the cellblock preparation show similar findings. 08/20/2024 4:00 PM EST LABORATORY [facility] Prior Cancer None 08/20/2024 4:00 PM EST LABORATORY [facility] Indication for Procedure Right pleural effusion 08/20/2024 4:00 PM EST LABORATORY [facility] Gross Description A. Pleural fluid, Right. Received fresh labeled with name:Guido Daley and pleural fluid, right, and verified with the patient's name and date of . Received 200 mls of bloody colored fluid. The specimen is prepared for cytospin(s) and cell block at [facility]. The cell block is submitted in cassette A1 and processed at [facility]. /[place] Prepared by: JACKIE Formalin fixation time: 10 hours 08/20/2024 4:00 PM EST LABORATORY [facility] Performing Labs Cupola Melting Supervisor screening performed at [facility]), [address] [place] [address]. Pathologist sign out performed at [facility] ([facility]), [facility] [place] [address]. 08/20/2024 4:00 PM EST LABORATORY [facility] Photographic images and diagrams represent champagne findings in this case; they are not intended to replace a complete review of the final diagnostic report. The following statement applies to Flow Cytometry, Histology, In situ Hybridization Assays and Molecular Genetics. This test was developed and performed at [facility] and its performance characteristics determined by [facility]. It has not been cleared or approved by the U.S. Food and Drug Administration. The FDA has determined that such clearance or approval is not necessary. This test is used for clinical purposes. It should not be regarded as investigational or for research. Special stains, including histochemical stains, and studies using immunologic and DANIELLE methodology (where applicable) are performed with appropriate positive and negative control reactions. 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
--- OUTSIDE RECORDS SUMMARY | 2024-08-30 14:21 | External Medical Summary | Summary of Care ---
Author Name Unknown Organization [facility] Address [address] [place] [address] Phone [phone] Care Team Providers Care Patient Registration Clerk Name Role Phone Dewayne Pena MD Primary Care Provider [phone] Reason for Visit * Reason Onset Date Comments Advice 08/14/2024 Increased breath ing trouble Encounter Details Date Type Department Care Team (Late st Contact Info) Description 08/14/2024 Telephone Pulmonary Medicine, [facility] [address] [facility] [place] [address] Juan Pablo Marsh MD [address] [facility] [id number] Advice (Increased breathing trouble) Allergies No known [...] Depth unknown, no SLN, Location R sikhism Raynaud's disease without gangrene 06/02/2019 Esophageal dysmotility 05/20/2019 JULIUS (obstructive sleep apnea) 05/20/2019 ILD (interstitial lung disease) 05/20/2019 Coronary artery disease invo lving [place] coronary artery of [place] heart without angina pectoris 03/24/2019 Nonrheumatic mitral [...] see below) BCC R forehead 2008 ([facility]) Prediabetes 02/28/2021 02/01/2023 Overview: Per Prediabetes [...] mL, 12 YRS AND ABOVE, IM ([facility]) 04/10/2024,03/27/2023 COVID-19, mRNA, LNP-s, PF, B ooster, [...] like a portable one. . Please call [phone] to discuss documented in this encounter Plan of Treatment Upcoming Encounters Date Type Department Care Team (Late st Contact Info) Description 08/15/2024 11:30 AM EST Office Visit Cardiology, [facility] [address] [place] [address] Mike Graves DO [address] [place] [address] 09/23/2024 1:20 PM EDT Office Visit Family Practice [facility] [address] [place] [address] Dewayne Pena MD [address] [place] [address] 10/06/2024 2:20 PM EDT Office Visit Rheumatology [facility] [address] [place] [phone] Timo Guzman MD [address] [place] [address] 02/23/2025 10:00 AM EDT Office Visit Pulmonary Medicine, [facility] [address] [place] [address] Juan Pablo Marsh MD [address] [facility] [address] 05/27/2025 1:20 PM EST Office Visit Dermatology [facility] [address] [place] [address] Jonnathan House PA-C [address] [place] [address] Scheduled Orders Name Type Priority Associated Diagnoses [...] encounter Medical Devices Implanted Type Area Planning Management It Specialist Device Identifier Shelf Expiration Date Model / Serial / Lot Cath Thermodilution 6fr - [id number] Implanted:Qty: 1 on 03/07/2023 by Armando Beltran MD at [facility] [employer] [id number] 10/10/2024 [id number] / / [id number] Valve Aortic Transcath Fx 34mm - [id number] Implanted:Qty: 1 on 05/03/2023 by Armando Beltran MD at [facility] [employer] [id number] 08/10/2024 EVOLUTFX- 34 / [id number] / [id number] documented as of this encounter Visit Diagnoses Diagnosis Chronic respiratory failure with hypoxia (HCC)- Primary Chronic respiratory failure SOB (shortness of breath) Shortness of breath documented in this encounter Advance Directives Documents on File Type Date Recorded 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
--- OUTSIDE RECORDS SUMMARY | 2024-08-30 14:21 | External Medical Summary ---
Author Name Unknown Address Unknown Organization K01:[facility]ORY [facility] [address] Laboratory Report Ordering Provider Test Date Status MIGUEL ÁNGEL PATEL 08/19/2024 07:22:00 Final Observation Date Value Abnormality Reference (Units ) Status Lactate dehydrogenase [Enzymatic activity/volume] in Body fluid by Lactate to pyruvate reaction 08/19/2024 07:22:00 105 (U/L) Final The reference interval(s) an d other method performance specifications may not be available for this body fluid. Comparison of this result with the concentration in the blood, serum, or plasma is recommended. The test result must be integrated into the clinical context for interpretation.

Please refer to test catalog ([email or web address].com/catalog/body_fluids.html) for additional interpretive information.

This test was developed and its performance characteristics determined by [employer]. It has not been cleared or approved by the US Food and Drug Administration. Performing Location [facility] [address] [facility] [address]
--- OUTSIDE RECORDS SUMMARY | 2024-08-30 14:21 | External Medical Summary ---
Author Name Unknown Address Unknown Organization K01:LABORATORY [facility] - [address] [facility] [place]. [facility] [address] Laboratory Report Ordering Provider Test Date Status MIGUEL ÁNGEL PATEL 08/19/2024 07:22:00 Final Observation Date Value Abnormality Reference (Units ) Status Albumin, Body Fluid 08/19/2024 07:22:00 1.7 (g/dL) Final The reference interval(s) an d other method performance specifications may not be available for this body fluid. Comparison of this result with the concentration in the blood, serum, or plasma is recommended. The test result must be integrated into the clinical context for interpretation.

Please refer to test catalog (https://www.YuMeabs.com/catalog/body_fluids.html) for additional interpretive information.

This test was developed and its performance characteristics determined by [employer]. It has not been cleared or approved by the US Food and Drug Administration. Performing Location LABORATORY [facility] - [address] [facility] [address]
--- OUTSIDE RECORDS SUMMARY | 2024-08-30 14:21 | External Medical Summary ---
Author Name Unknown Address Unknown Organization K01:[facility]ORY [facility] - [address] [facility] [address] Laboratory Report Ordering Provider Test Date Status MIGUEL ÁNGEL PATEL 08/19/2024 07:22:00 Final Observation Date Value Abnormality Reference (Units ) Status Glucose, Body Fluid 08/19/2024 07:22:00 112 (mg/dL) Final The reference interval(s) an d other method performance specifications may not be available for this body fluid. Comparison of this result with the concentration in the blood, serum, or plasma is recommended. The test result must be integrated into the clinical context for interpretation.

Please refer to test catalog (https://www.ATEMEabs.com/catalog/body_fluids.html) for additional interpretive information.

This test was developed and its performance characteristics determined by [employer]. It has not been cleared or approved by the US Food and Drug Administration. Performing Location LABORATORY [facility] - [address] [facility] [address]
--- OUTSIDE RECORDS SUMMARY | 2024-08-30 14:21 | External Medical Summary ---
Author Name Unknown Address Unknown Organization K01:LABORATORY [facility] - [address] [facility] [place]. [facility] [address] Laboratory Report Ordering Provider Test Date Status MIGUEL ÁNGEL PATEL 08/19/2024 07:22:00 Final Observation Date Value Abnormality Reference (Units ) Status Protein, Body Fluid 08/19/2024 07:22:00 2.8 (g/dL) Final The reference interval(s) an d other method performance specifications may not be available for this body fluid. Comparison of this result with the concentration in the blood, serum, or plasma is recommended. The test result must be integrated into the clinical context for interpretation.

Please refer to test catalog (https://www.RollSaleabs.com/catalog/body_fluids.html) for additional interpretive information.

This test was developed and its performance characteristics determined by [employer]. It has not been cleared or approved by the US Food and Drug Administration. Performing Location LABORATORY [facility] - [address] [facility] [address]
--- OUTSIDE RECORDS SUMMARY | 2024-08-30 14:21 | External Medical Summary | Summary of Care ---
Author Name Unknown Organization [facility] Address [address] [place] [address] Phone [phone] Care Team Providers Care Bicycle Repair Technician Name Role Phone Dewayne Pena MD Primary Care Provider +1 [phone] Reason for Visit * Reason Onset Date Comments Scheduling 08/15/2024 Encounter Details Date Type Department Care Team (Late st Contact Info) Description 08/15/2024 Telephone Pulmonary Medicine Martha Ford [address] [place] [phone] Juan Pablo Marsh MD [address] [place] [address] Scheduling Allergies No known active allergiesdocumented as of [...] Depth unknown, no SLN, Location R jew Raynaud's disease without gangrene 06/02/2019 Esophageal dysmotility 05/20/2019 JULIUS (obstructive sleep apnea) 05/20/2019 ILD (interstitial lung disease) 05/20/2019 Coronary artery disease invo lving [place] coronary artery of [place] heart without angina pectoris 03/24/2019 Nonrheumatic mitral [...] prior, see below) BCC R forehead 2008 ([facility]) Prediabetes 02/28/2021 02/01/2023 Overview: Per [...] encounter Miscellaneous Notes * Telephone Encounter - Cecily Marin OSA - 08/15/2024 12:38 PM EST Spoke to patient and his to schedule the US Guided Chest Thoracentesis for 3/ at [facility] Patient was told to her the blood thinner a few days prior to the procedure and will receive a callfrom the ordering provider. documented in this encounter Plan of Treatment Upcoming Encounters Date Type Department Care Team (Late st Contact Info) Description 08/19/2024 8:00 AM EST Appointment [address]iology, [address] [address] 08/26/2024 8:00 AM EDT PulmDiagnostic Pulmonary Function Lab, [facility] [address] [address] [address], [address] [place] [address] 09/23/2024 1:20 PM EDT Office Visit Family Practice [facility] [address] [address] Dewayne Pena MD [address] [place] [address] 10/06/2024 2:20 PM EDT Office Visit Rheumatology [facility] [place] [phone] Timo Guzman MD [address] [place] [address] 10/09/2024 10:30 AM EDT Office Visit Cardiology, [facility] 132 [facility] [place] [address] Mike Graves, 132 [facility] [place] [address] 02/23/2025 10:00 AM EDT Office Visit Pulmonary Medicine, [facility] 132 [facility] [place] [address] Juan Pablo Marsh MD [address] [facility] [address] 05/27/2025 1:20 PM EST Office Visit Dermatology [facility] [address] [place] [address] Jonnathan House PA-C [address] [place] [address] Health Maintenance Due Date Last Done Comments [...] this encounter Medical Devices Implanted Type Area Embroidery Finisher Device Identifier Shelf Expiration Date Model / Serial / Lot Cath Thermodilution 6fr - [id number] Implanted:Qty: 1 on 03/07/2023 by Armando Beltran MD at [facility] [place] [employer] KRISTYN [id number] 10/10/2024 [id number] / / [id number] Valve Aortic Transcath Fx 34mm - [id number] Implanted:Qty: 1 on 05/03/2023 by Armando Beltran MD at [facility] [place] [employer] [id number] 08/10/2024 EVOLUTFX- 34 / [id number] / [id number] documented as of this encounter Advance Directives Documents on File Type Date Recorded Patient Allergist Immunologist Expl anation POLST 03/06/2022 [place] OR DERS FOR LIFE-SUSTAINING TREATMENT POLST 12/13/2021 [place] OR DERS FOR LIFE-SUSTAINING TREATMENT * Full [...] Advance Directives occurred with: Patient Care Teams Bicycle Repair Technician Relationship Specialty Start Date End Date Dewayne Pena MD [address] [place] [address] PCP - General Family Medicine 04/30/23 documented as of this encounter
--- OUTSIDE RECORDS SUMMARY | 2024-08-30 14:21 | External Medical Summary | Summary of Care ---
Author Name Unknown Organization [facility] Address [address] [place] [address] Phone [phone] Care Team Providers Care Shaper Hand Name Role Phone Dewayne Pena MD Primary Care Provider [phone] [phone] Reason for Visit * Reason Onset Date Comments Procedure 08/15/2024 Re: thoracentesi s Encounter Details Date Type Department Care Team (Late st Contact Info) Description 08/15/2024 Telephone Pulmonary Medicine, [facility] 132 [facility] [place] [address] Juan Pablo Marsh [facility] [address] [facility] [id number] Procedure (Re: thoracentesis) Allergies No known active allergiesdocumented as of this encounter (statuses as of 08/18/2024) Medications Cholecalciferol 25 MCG (1000 UT) Oral [...] as of this encounter (statuses as of 08/18/2024) Active Problems Problem Noted Date Diagnosed Date [...] 2013, Depth unknown, no SLN, Location R zoroastrian Raynaud's disease without gangrene 06/02/2019 Esophageal dysmotility 05/20/2019 JULIUS (obstructive sleep apnea) 05/20/2019 ILD (interstitial lung disease) 05/20/2019 Coronary artery disease invo lving [place] coronary artery of [place] heart without angina pectoris 03/24/2019 Nonrheumatic mitral valve stenosis 03/24/2019 H/O Hodgkin's lymphoma 07/05/2018 Acquired hypothyroidism 07/05/2018 documented as of this encounter (statuses as of 08/18/2024) Resolved Problems Problem Noted Date Diagnosed Date Resolved Date Osteoporotic fracture of left hip 09/28/2022 03/14/2023 Aortic root enlargement 07/07/2022 11/2 08/2022 Sinus tachycardia 03/16/2022 03/14/2023 Hx of nonmelanoma skin cancer 03/24/2021 05/14/2023 Overview (03/24/2021): Hx MM date 2013, Depth unknown, no SLN, Location R zoroastrian (still no path in chart, pt confirmed [...] as of this encounter (statuses as of 08/18/2024) Immunizations Name Administration Dates Next Due COVID-19 mRNA, LNP-s, No Pre serve, 2-Dose Series (Moderna) 08/21/2020,07/17/2020 COVID-19, MRNA-LNP, PF, 30 M CG/0.3 mL, 12 YRS AND ABOVE, IM ([facility] 04/10/2024,03/27/2023 COVID-19, mRNA, LNP-s, PF, B ooster, [...] Telephone Encounter - Ena Charles LPN - 08/18/2024 8:02 AM EST I spoke with the pt, who confirms he held the Eliquis yesterday and will today also. * Telephone Encounter - Juan Pablo Marsh [...] Description 08/19/2024 8:00 AM EST Appointment Radiology, [address] [id number] 08/26/2024 8:00 AM EDT PulmDiagnostic Pulmonary Function Lab, [facility] [address] [place], [place] [address] [address], [address] [place] [address] 09/23/2024 1:20 PM EDT Office Visit Family Practice [facility] [place] [address] Dewayne Pena MD [address] [place] [address] 10/06/2024 2:20 PM EDT Office Visit Rheumatology [facility] [place] [phone] Timo Guzman MD [facility] [place] [address] 10/09/2024 10:30 AM EDT Office Visit Cardiology, [facility] 132 [facility] [place] [address] Mike Graves, 132 [facility] [place] [address] 02/23/2025 10:00 AM EDT Office Visit Pulmonary Medicine, [facility] 132 [facility] [place] [address] Juan Pablo Marsh MD [address] [address] 05/27/2025 1:20 PM EST Office Visit Dermatology [facility] [address] [place] [address] Jonnathan House PA-C [address] [place], [place] [phone] Health Maintenance Due Date Last Done Comments [...] this encounter Medical Devices Implanted Type Area Line Installer Trolley Device Identifier Shelf Expiration Date Model / Serial / Lot Cath Thermodilution 6fr - [id number] Implanted:Qty: 1 on 03/07/2023 by Armando Beltran MD at [facility] [place] [place] [employer]RISTYN [id number] 10/10/2024 [id number] / / [id number] Valve Aortic Transcath Fx 34mm - [id number] Implanted:Qty: 1 on 05/03/2023 by Armando Beltran MD at [facility] [place] [place] [employer] [id number] 08/10/2024 EVOLUTFX- 34 / [id number] / [id number] documented as of this encounter Visit Diagnoses Diagnosis SOB (shortness of breath)- Primary Shortness of breath Pleural effusion on right Unspecified pleural effusion documented in this encounter Advance Directives Documents on File Type Date Recorded Patient Fish Protector Expl anation POLST 03/06/2022 [place] OR DERS [...] Advance Directives occurred with: Patient Care Teams Shaper Hand Relationship Specialty Start Date End Date Dewayne Pena MD [address] [place] [address] PCP - General Family Medicine 04/30/23 documented as of this encounter
--- OUTSIDE RECORDS SUMMARY | 2024-08-30 14:21 | External Medical Summary ---
Author Name Unknown Address Unknown Organization K1F:[facility] - [address] [place] [address] Laboratory Report Ordering Provider Test Date Status MIGUEL ÁNGEL PATEL 08/19/2024 07:22:00 Final Some reference ranges and ot her method performance specifications have not been established for this fluid. The test results must be integrated into the clinical context for interpretation. Observation Date Value Abnormality Reference (Units ) Status SYNC TOTAL NUCLEATED CELLS FLUID 08/19/2024 07:22:00 1845 (cells/uL) Final Neutrophils/100 leukocytes in Body fluid by Manual count 08/19/2024 07:22:00 5 Above high normal 0-1 (%) Final Lymphocytes, Body Fluid 08/19/2024 07:22:00 78 Above high normal 18-36 (%) Final Monocytes/100 leukocytes in Body fluid by Manual count 08/19/2024 07:22:00 16 Below low normal 64-80 (%) Final LINING CELLS/100 NUCLEATED CELLS IN BODY FLUID 08/19/2024 07:22:00 1 0-2 (%) Final SEGMENTED NEUTROPHILS (1000/UG) IN BODY FLUID ABS 08/19/2024 07:22:00 92.25 (cells/uL) Final LYMPHOCYTES (1000/UG) IN BODY FLUID ABS 08/19/2024 07:22:00 1439.10 (cells/uL) Final MONOCYTES(1000/UG) IN BODY FLUID ABS 08/19/2024 07:22:00 295.20 (cells/uL) Final LINING CELLS IN BODY FLUID ABS 08/19/2024 07:22:00 18.45 (cells/uL) Final Performing Location [facility] - [address] [facility] [address] [place] [address]
--- OUTSIDE RECORDS SUMMARY | 2024-08-30 14:22 | External Medical Summary | Summary of Care ---
Author Name Unknown Organization [facility] Address [address] [place] [address] Phone [phone] Care Team Providers Care Director Wholesale Name Role Phone Dewayne Pena MD Primary Care Provider [phone] Reason for Visit * Reason Onset Date Comments Advice 08/11/2024 Encounter Details Date Type Department Care Team (Late st Contact Info) Description 08/11/2024 Telephone Vascular Surg [facility] [address] [place] [address] German Tay MD [address] [place] [address] Advice Allergies No known active allergiesdocumented as of this encounter (statuses as of 08/11/2024) Medications Cholecalciferol 25 MCG (1000 UT) Oral [...] as of this encounter (statuses as of 08/11/2024) Active Problems Problem Noted Date Diagnosed Date [...] Depth unknown, no SLN, Location R yarsanism Raynaud's disease without gangrene 06/02/2019 Esophageal dysmotility 05/20/2019 JULIUS (obstructive sleep apnea) 05/20/2019 ILD (interstitial lung disease) 05/20/2019 Coronary artery disease invo lving [place] coronary artery of [place] heart without angina pectoris 03/24/2019 Nonrheumatic mitral valve stenosis 03/24/2019 H/O Hodgkin's lymphoma 07/05/2018 Acquired hypothyroidism 07/05/2018 documented as of this encounter (statuses as of 08/11/2024) Resolved Problems Problem Noted Date Diagnosed Date [...] as of this encounter (statuses as of 08/11/2024) Immunizations Name Administration Dates Next Due COVID-19 [...] from Ami. He states he sees his Client Project Coordinator on Sunday and he also has call [...] 08/15/2024 11:30 AM EST Office Visit Cardiology, [facility] [address] [place] [address] Mike Graves, [address] [place] [address] 08/18/2024 1:32 PM EST Hospital Encounter [place] [facility] [place]DRA [place] [address] [facility] [place] [address] German Tay MD [address] [facility] [place] [address] 08/18/2024 1:32 PM EST - 08/18/2024 3:35 PM EST Surgery OR [facility] [place] [address] [facility] [place] [address] German Tay MD [address] [place] [address] STAB PHLEBECTOMY VARICOSE VEINS MORE THAN 20, ONE EXTREMITY 08/20/2024 1:00 PM EST Imaging Vascular Lab, [facility] 2nd Floor, [place] 132 [place] [address] 08/20/2024 2:10 PM EST Office Visit Vascular Surgery, [facility] 132 [place] [address] Yandel Rizo MD [address] [place] [address] 09/23/2024 1:20 PM EDT Office Visit Family Practice [facility] 132 [place] [address] Dewayne Pena MD 132 [facility] [address] 10/06/2024 2:20 PM EDT Office Visit Rheumatology [facility] 132 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 08/18/2024 1:32 PM EST Health Maintenance Due Date Last [...] this encounter Medical Devices Implanted Type Area Chemical Unit Operator Device Identifier Shelf Expiration Date Model / Serial / Lot Cath Thermodilution 6fr - [id number] Implanted:Qty: 1 on 03/07/2023 by Armando Beltran MD at [facility] [employer] KRISTYN [id number] 10/10/2024 [id number] / / [id number] Valve Aortic Transcath Fx 34mm - [id number] Implanted:Qty: 1 on 05/03/2023 by Armando Beltran MD at [facility] [employer] [id number] 08/10/2024 EVOLUTFX- 34 / [id number] / [id number] documented as of this encounter Advance Directives Documents on File Type Date Recorded Patient Exchange Engineer Expl anation POLST 03/06/2022 [place] OR DERS FOR LIFE-SUSTAINING TREATMENT POLST 12/13/2021 [place] OR DERS FOR LIFE-SUSTAINING TREATMENT * Full [...] Advance Directives occurred with: Patient Care Teams Director Wholesale Relationship Specialty Start Date End Date Dewayne Pena MD [address] [place] [address] PCP - General Family Medicine 04/30/23 documented as of this encounter
--- OUTSIDE RECORDS SUMMARY | 2024-08-30 14:22 | External Medical Summary | Summary of Care ---
Author Name Unknown Organization [facility] Address [address] [place] [address] Phone [phone] Care Team Providers Care High Density Press Laborer Name Role Phone Dewayne Pena MD Primary Care Provider +[phone] Reason for Visit * Reason Onset Date Comments Advice 08/11/2024 Encounter Details Date Type Department Care Team (Late st Contact Info) Description 08/11/2024 Telephone Vascular Surg [facility] [address] [place] [address] German Tay MD [address] [place] [address] Advice Allergies No known active [...] Depth unknown, no SLN, Location R cheondoism Raynaud's disease without gangrene 06/02/2019 Esophageal dysmotility 05/20/2019 JULIUS (obstructive sleep apnea) 05/20/2019 ILD (interstitial lung disease) 05/20/2019 Coronary artery disease invo lving [place] coronary artery of [place]uhaaviatam heart without angina pectoris 03/24/2019 Nonrheumatic mitral [...] prior, see below) BCC R forehead 2008 ([facility]) Prediabetes 02/28/2021 02/01/2023 Overview: Per [...] from Ami. He states he sees his Advertising Sales Consultant on Sunday and he also has call [...] 08/15/2024 11:30 AM EST Office Visit Cardiology, [facility] [address] [address] Mike Graves DO [address] [address] 09/23/2024 1:20 PM EDT Office Visit Family Practice [facility] [address] [place] [address] Dewayne Pena MD [address] [place] [address] 10/06/2024 2:20 PM EDT Office Visit Rheumatology [facility] [address] [phone] Timo Guzman MD [facility] [place] [address] 02/23/2025 10:00 AM EDT Office Visit Pulmonary Medicine, [facility] [address] [place] [address] Juan Pablo Marsh MD [address] [place] [address] 05/27/2025 1:20 PM EST Office Visit Dermatology [facility] [address] [place] [address] Jonnathan House PA-C [address] [place] [address] Health Maintenance Due Date Last [...] this encounter Medical Devices Implanted Type Area Oil Program Compliance Specialist Device Identifier Shelf Expiration Date Model / Serial / Lot Cath Thermodilution 6fr - [id number] Implanted:Qty: 1 on 03/07/2023 by Armando Beltran MD at [facility] [place] [employer]RISTYN [id number] 10/10/2024 [id number] / / [id number] Valve Aortic Transcath Fx 34mm - [id number] Implanted:Qty: 1 on 05/03/2023 by Armando Beltran MD at [facility] [place] [employer] [id number] 08/10/2024 EVOLUTFX- 34 / [id number] / [id number] documented as of this encounter Advance Directives Documents on File Type Date Recorded Patient Expeller Operator Expl anation POLST 03/06/2022 [place] OR DERS FOR LIFE-SUSTAINING TREATMENT POLST 12/13/2021 [place] OR DERS FOR LIFE-SUSTAINING TREATMENT * Full [...] Advance Directives occurred with: Patient Care Teams High Density Press Laborer Relationship Specialty Start Date End Date Dewayne Pena MD [address] [place] [address] PCP - General Family Medicine 04/30/23 documented as of this encounter
--- OUTSIDE RECORDS SUMMARY | 2024-08-30 14:22 | External Medical Summary | Summary of Care ---
Author Name Unknown Organization [facility] Address [address] [place] [address] Phone [phone] Care Team Providers Care Consumer Marketing Analyst Name Role Phone Dewayne Pena MD Primary Care Provider +1 [phone] Reason for Visit * Reason Onset Date Comments Durable Medical Equipment 07/29/2024 Replac ement CPAP Encounter Details Date Type Department Care Team (Late st Contact Info) Description 07/29/2024 Telephone Sleep Disorders Ctr [facility] [address] [place] [address] Cara Brantley DO [address] [place] [address] Durable Medical Equipment (Replacement CPAP ) Allergies No known active allergiesdocumented as of this encounter (statuses as of 07/29/2024) Medications Cholecalciferol 25 MCG (1000 UT) Oral [...] as of this encounter (statuses as of 07/29/2024) Active Problems Problem Noted Date Diagnosed Date [...] 2013, Depth unknown, no SLN, Location R adventist Raynaud's disease without gangrene 06/02/2019 Esophageal dysmotility 05/20/2019 JULIUS (obstructive sleep apnea) 05/20/2019 ILD (interstitial lung disease) 05/20/2019 Coronary artery disease invo lving [place] coronary artery of [place] heart without angina pectoris 03/24/2019 Nonrheumatic mitral valve stenosis 03/24/2019 H/O Hodgkin's lymphoma 07/05/2018 Acquired hypothyroidism 07/05/2018 documented as of this encounter (statuses as of 07/29/2024) Resolved Problems Problem Noted Date Diagnosed Date Resolved Date Osteoporotic fracture of left hip 09/28/2022 03/14/2023 Aortic root enlargement 07/07/202204/19 Sinus tachycardia 03/16/2022 03/14/2023 Hx of nonmelanoma skin cancer 03/24/2021 05/14/2023 Overview (03/24/2021): Hx MM date 2013, Depth unknown, no SLN, Location R adventist (still no path in chart, pt confirmed that he had surgery for melanoma at that site and for BCC prior, see below) BCC R forehead 2008 ([facility]) Prediabetes 02/28/2021 02/01/2023 Overview: Per Prediabetes protocol Moderate protein malnutrition 12/15/2019 03/14/2023 Ankylosing spondylitis of cervical region 12/15/2019 07/07/2022 PSVT (paroxysmal supraventri cular tachycardia) 12/15/2019 03/21/2024 Moderate aortic stenosis 03/24/2019 H/O atrial fibrillation with out current medication 07/05/2018 03/14/2023 documented as of this encounter (statuses as of 07/29/2024) Immunizations Name Administration Dates Next Due COVID-19 [...] encounter Miscellaneous Notes * Telephone Encounter - Brittany Rust OSA - 07/29/2024 1:13 PM EST DME order for Replacement CPAP submitted to [employer]. documented in this encounter Plan of Treatment Upcoming Encounters Date Type Department Care Team (Latest Contact Info) Description 08/15/2024 11:30 AM EST Office Visit Cardiology, [facility] [address] [place] [address] Mike Graves, [address] [place] [place] [address] 08/18/2024 1:32 PM EST Hospital Encounter [place] [facility] [address] [place] [address] German Tay MD [address] [place], [place] [id number] 08/18/2024 1:32 PM EST - 08/18/2024 3:35 PM EST Surgery OR [facility] [address] [place] [address] German Tay MD [address] [place] [address] STAB PHLEBECTOMY VARICOSE VEINS MORE THAN 20, ONE EXTREMITY 08/20/2024 1:00 PM EST Imaging Vascular Lab, [facility] 2nd Floor, [employer] [address] [place] [address] 08/20/2024 2:10 PM EST Office Visit Vascular Surgery, [facility] [address] [place] [address] Yandel Rizo MD [address] [place] [address] 09/23/2024 1:20 PM EDT Office Visit Family Practice [facility] [address] [place] [address] Dewayne Pena MD [address] [place] [address] 10/06/2024 2:20 PM EDT Office Visit Rheumatology [facility] [address] [place] [phone] Timo Guzman MD [facility] [place] [address] 05/27/2025 1:20 PM EST Office Visit Dermatology [facility] [address] [place] [address] Jonnathan House PA-C [address] [place] [address] Scheduled Procedures Name Priority Associated Diagnoses Date/Ti [...] Comments Meningitis B Vaccine (Bexsero/Trumemba) (1 of 4 - Increased Risk) 09/23/1960 Adult Wellness Visit 06/22/2022 06/22/2021 Depression Screening 03/06/2023 03/06/2022 TSH 01/17/2025 01/18/2024, 12/17, 12/07/2021, Additional history exists Cologuard Discontinued 07/22/2021, 06/19, 07/13/2021 Colorectal Cancer Screening Discontinued Zoster Vaccines Completed 08/30/2021, 06/13/2019 Influenza Vaccine (FLU shot) Completed 09/2023, 03/16/2023, 04/07/2022, Additional history exists COVID-19 Vaccine Completed 04/10/2024, 03/2023, 11/09/2022, Additional history exists Colonoscopy Discontinued Fecal Occult Blood Test Discontinued Sigmoidoscopy Discontinued documented as of this encounter Medical Devices Implanted Type Area Sensitometrist Device Identifier Shelf Expiration Date Model / Serial / Lot Cath Thermodilution 6fr - [id number] Implanted:Qty: 1 on 03/07/2023 by Armando Beltran MD at [facility] [employer] [id number] 10/10/2024 [id number] / / [id number] Valve Aortic Transcath Fx 34mm - [id number] Implanted:Qty: 1 on 05/03/2023 by Armando Beltran MD at [facility] [employer] [id number] 08/10/2024 EVOLUTFX- 34 / [id number] / [id number] documented as of this encounter Advance Directives Documents on File Type Date Recorded Patient Power Truck Driver Expl anation POLST 03/06/2022 [place] OR DERS [...] Advance Directives occurred with: Patient Care Teams Consumer Marketing Analyst Relationship Specialty Start Date End Date Dewayne Pena MD [address] [place] [address] PCP - General Family Medicine 04/30/23 documented as of this encounter
--- OUTSIDE RECORDS SUMMARY | 2024-08-30 14:22 | External Medical Summary | Summary of Care ---
Author Name Unknown Organization [facility] Address [address] [place] [address] Phone [phone] Care Team Providers Care Senior Functional Analyst Name Role Phone Dewayne Pena MD Primary Care Provider +1 [phone] Reason for Visit * Reason Onset Date Comments Health Maintenance 08/04/2024 Encounter Details Date Type Department Care Team (Late st Contact Info) Description 08/04/2024 Telephone Family Practice [facility] [address] [place] [address] Dewayne Pena MD [address] [place] [address] Health Maintenance Allergies No known active allergiesdocumented as of this encounter (statuses as of 08/05/2024) Medications Cholecalciferol 25 MCG (1000 UT) Oral [...] as of this encounter (statuses as of 08/05/2024) Active Problems Problem Noted Date Diagnosed Date [...] Depth unknown, no SLN, Location R sabianism Raynaud's disease without gangrene 06/02/2019 Esophageal dysmotility 05/20/2019 JULIUS (obstructive sleep apnea) 05/20/2019 ILD (interstitial lung disease) 05/20/2019 Coronary artery disease invo lving [place] coronary artery of [place] heart without angina pectoris 03/24/2019 Nonrheumatic mitral valve stenosis 03/24/2019 H/O Hodgkin's lymphoma 07/05/2018 Acquired hypothyroidism 07/05/2018 documented as of this encounter (statuses as of 08/05/2024) Resolved Problems Problem Noted Date Diagnosed Date [...] below) BCC R forehead 2008 ([facility]) Prediabetes 02/28/2021 02/01/2023 Overview: Per Prediabetes protocol Moderate protein malnutrition 12/15/2019 03/14/2023 Ankylosing spondylitis of cervical region 12/15/2019 07/07/2022 PSVT (paroxysmal supraventri cular tachycardia) 12/15/2019 03/21/2024 Moderate aortic stenosis 03/24/2019 H/O atrial fibrillation with out current medication 07/05/2018 03/14/2023 documented as of this encounter (statuses as of 08/05/2024) Immunizations Name Administration Dates Next Due COVID-19 [...] encounter Miscellaneous Notes * Addendum Note - Erin Hernández LPN - 08/05/2024 8:00 AM ESTAddended by: ERIN HERNÁNDEZ on: 08/05/2024 08:00 AM Modules accepted: Orders * Telephone Encounter - Erin Hernández LPN - 08/04/2024 2:56 PM EST Care Gaps Comprehensive Care Outreach Last Office/Telemedicine Visit: 03/21/2024 (in office), 12/15/2019 (telemedicine) Next Office Visit: 09/23/2024 Hemoglobin AIC Results: Lab Results Component Value Date/Time HEMOGLOBIN A1C - [facility] 6.1 (H) 06/02/2021 11:52 AM HEMOGLOBIN A1C - [facility] 6.0 (H) 02/14/2021 08:55 AM BP Readings from Last 1 Encounters: 07/29/24 120/60 Reviewed Health Maintenance below: Health Maintenance Topic Date Due Meningitis B Vaccine (Bexsero/Trumemba) (1 of 5 - Increased Risk) Never done Adult Wellness Visit 06/22/2022 Depression Screening 03/06/2023 COVID-19 Vaccine ( season) 2024 TSH 01/17/2025 Influenza Vaccine (FLU shot) Completed Zoster Vaccines Completed Colorectal Cancer Screening Discontinued Cologuard due awv Care Gap Outreach Action Taken: Left message and MyChart message sent documented in this encounter Plan of Treatment Upcoming Encounters Date Type Department Care Team (Latest Contact Info) Description 08/15/2024 11:30 AM EST Office Visit Cardiology, [facility] [address] [place] [address] Mike Graves DO [address] [place] [address] 08/18/2024 1:32 PM EST Hospital Encounter [place] [facility] [facility] [address] [place] [phone] German Tay MD [address] [facility], [place] [id number] 08/18/2024 1:32 PM EST - 08/18/2024 3:35 PM EST Surgery [place] [facility] [address] [place] [phone] German Tay MD [address] [facility], [place] [phone] STAB PHLEBECTOMY VARICOSE VEINS MORE THAN 20, ONE EXTREMITY 08/20/2024 1:00 PM EST Imaging Vascular Lab, [facility] 2nd Floor, [place] [address] [place] [address] 08/20/2024 2:10 PM EST Office Visit Vascular Surgery, [facility] [address] [facility] [place] [address] Yandel Rizo MD [address] [facility] [place] [address] 09/23/2024 1:20 PM EDT Office Visit Family Practice [facility] [address] [place] [address] Dewayne Pena MD [address] [place] [address] 10/06/2024 2:20 PM EDT Office Visit Rheumatology [facility] [address] [place] [phone] Timo Guzman MD [address] [facility] [place] [address] 05/27/2025 1:20 PM EST Office Visit Dermatology [facility] [address] [place] [address] Jonnathan House PA-C [address] [place] [address] Scheduled Orders Name Type Priority Associated Diagnoses Orde r Schedule COLOGUARD Lab Unrestricted Lab Screening for malignant neoplasm of colon Ordered: 08/05/2024 Scheduled Procedures Name Priority Associated Diagnoses Date/Ti [...] this encounter Medical Devices Implanted Type Area Sewer System Supervisor Device Identifier Shelf Expiration Date Model / Serial / Lot Cath Thermodilution 6fr - [id number] Implanted:Qty: 1 on 03/07/2023 by Armando Beltran MD at [facility] [employer] [id number] 10/10/2024 [id number] / / [id number] Valve Aortic Transcath Fx 34mm - [id number] Implanted:Qty: 1 on 05/03/2023 by Armando Beltran MD at [facility] [employer] [id number] 08/10/2024 EVOLUTFX- 34 / [id number] / [id number] documented as of this encounter Visit Diagnoses Diagnosis 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- Primary 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 Varicose veins of leg with complications Varicose veins of lower extremities with other complications Screening for malignant neoplasm of colon- Primary Varicose veins of leg with complications Varicose veins of lower extremities with other complications 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
--- OUTSIDE RECORDS SUMMARY | 2024-08-30 14:22 | External Medical Summary | Summary of Care ---
Author Name Unknown Organization [facility] Address [address] [place] [address] Phone [phone] Care Team Providers Care Eap Specialist Name Role Phone Dewayne Pena MD Primary Care Provider +1 [phone] Reason for Visit * Reason Onset Date Comments Advice 08/11/2024 Encounter Details Date Type Department Care Team (Late st Contact Info) Description 08/11/2024 Telephone Vascular Surg [facility] [address] [place] [address] German Tay MD [address] [place] [address] Advice Allergies No known active [...] 2013, Depth unknown, no SLN, Location R jainism Raynaud's disease without gangrene 06/02/2019 Esophageal dysmotility 05/20/2019 JULIUS (obstructive sleep apnea) 05/20/2019 ILD (interstitial lung disease) 05/20/2019 Coronary artery disease invo lving [place] coronary artery of [place] heart without angina pectoris 03/24/2019 Nonrheumatic [...] 2013, Depth unknown, no SLN, Location R jainism (still no path in chart, pt confirmed that he had surgery for melanoma at that site and for BCC prior, see below) BCC R forehead 2008 ([facility]) Prediabetes 02/28/2021 02/01/2023 Overview: Per [...] encounter Miscellaneous Notes * Telephone Encounter - Matt Medellin OSA [...] from [place]. He states he sees his Etl Data Architect on Sunday and he also has call [...] 08/15/2024 11:30 AM EST Office Visit Cardiology, [address] [place] [address] Mike Graves DO [address] [place] [address] 09/23/2024 1:20 PM EDT Office Visit Family Practice [facility] [address] [place] [address] Dewayne Pena MD [address] [place] [address] 10/06/2024 2:20 PM EDT Office Visit Rheumatology [facility] [address] [place] [address] Timo Guzman MD [facility] [place] [address] 05/27/2025 1:20 PM EST Office Visit Dermatology [facility] [address] [place] [address] Jonnathan House PA-C [address] [place] [address] Health Maintenance Due Date Last Done Comments [...] Medical Devices Implanted Type Area Director Of Distribution Device Identifier Shelf Expiration Date Model / Serial / Lot Cath Thermodilution 6fr - [id number] Implanted:Qty: 1 on 03/07/2023 by Armando Beltran MD at [facility] [employer] [id number] 10/10/2024 [id number] / / [id number] Valve Aortic Transcath Fx 34mm - [id number] Implanted:Qty: 1 on 05/03/2023 by Armando Beltran MD at [facility] [employer] [id number] 08/10/2024 EVOLUTFX- 34 / [id number] / [id number] documented as of this encounter Advance Directives Documents on File Type Date Recorded Patient Mechanical Laboratory Technician Expl anation POLST 03/06/2022 [place] OR DERS [...] Advance Directives occurred with: Patient Care Teams Eap Specialist Relationship Specialty Start Date End Date Dewayne Pena MD [address] [place] [address] PCP - General Family Medicine 04/30/23 documented as of this encounter
--- OUTSIDE RECORDS SUMMARY | 2024-08-30 14:22 | External Medical Summary | Summary of Care ---
Author Name Unknown Organization [facility] Address [address] [place] [address] Phone [phone] Care Team Providers Care Architecture Drafter Name Role Phone Dewayne Pena MD Primary Care Provider +1 [phone] Reason for Visit * Reason Onset Date Comments Advice 08/11/2024 Encounter Details Date Type Department Care Team (Late st Contact Info) Description 08/11/2024 Telephone Vascular Surg [facility] [address] [place] [address] German Tay MD [address] [place] [address] Advice Allergies No known active [...] Depth unknown, no SLN, Location R advent Raynaud's disease without gangrene 06/02/2019 Esophageal dysmotility 05/20/2019 JULIUS (obstructive sleep apnea) 05/20/2019 ILD (interstitial lung disease) 05/20/2019 Coronary artery disease invo lving [place] coronary artery of [place] heart without angina pectoris 03/24/2019 Nonrheumatic mitral [...] prior, see below) BCC R forehead 2008 ([facility]) Prediabetes 02/28/2021 02/01/2023 Overview: Per [...] from [place]. He states he sees his Groover And Turner on Sunday and he also has call [...] 08/15/2024 11:30 AM EST Office Visit Cardiology, [facility] [address] [place] [address] Mike Graves DO [address] [place] [address] 09/23/2024 1:20 PM EDT Office Visit Family Practice [facility] [address] [place] [address] Dewayne Pena MD [address] [place] [address] 10/06/2024 2:20 PM EDT Office Visit Rheumatology [facility] [address] [place] [phone] Timo Guzman MD [facility] [address] 02/23/2025 10:00 AM EDT Office Visit Pulmonary Medicine, [facility] [address] [place] [address] Juan Pablo Marsh MD [address] [place] [address] 05/27/2025 1:20 PM EST Office Visit Dermatology [facility] [address] [place] [address] Jonnathan House PA-C [address] [place] [address] Health Maintenance Due Date Last [...] this encounter Medical Devices Implanted Type Area Financial Report Service Sales Agent Device Identifier Shelf Expiration Date Model / Serial / Lot Cath Thermodilution 6fr - [id number] Implanted:Qty: 1 on 03/07/2023 by Armando Beltran MD [place] [facility] [employer] [id number] 10/10/2024 [id number] / / [id number] Valve Aortic Transcath Fx 34mm - [id number] Implanted:Qty: 1 on 05/03/2023 by Armando Beltran MD at [facility] [employer] [id number] 08/10/2024 EVOLUTFX- 34 / [id number] / [id number] documented as of this encounter Advance Directives Documents on File Type Date Recorded Patient Microbiology Lab Manager Expl anation POLST 03/06/2022 [place] OR DERS FOR LIFE-SUSTAINING TREATMENT POLST 12/13/2021 [place] OR DERS FOR LIFE-SUSTAINING TREATMENT * Full [...] Advance Directives occurred with: Patient Care Teams Architecture Drafter Relationship Specialty Start Date End Date Dewayne Pena MD [address] [place] [address] PCP - General Family Medicine 04/30/23 documented as of this encounter
--- OUTSIDE RECORDS SUMMARY | 2024-08-30 14:22 | External Medical Summary | Summary of Care ---
Author Name Unknown Organization [facility] Address [address] [place] [address] Phone [phone] Care Team Providers Care Street Cleaning Equipment Operator Name Role Phone Dewayne Pena MD Primary Care Provider +1 [phone] Reason for Visit * Reason Onset Date Comments Advice 08/11/2024 Encounter Details Date Type Department Care Team (Late st Contact Info) Description 08/11/2024 Telephone Vascular Surg [facility] [address] [place] [address] German Tay MD [address] [place] [address] Advice Allergies No known active allergiesdocumented as of this encounter (statuses as of 08/12/2024) Medications Cholecalciferol 25 MCG (1000 UT) Oral [...] as of this encounter (statuses as of 08/12/2024) Active Problems Problem Noted Date Diagnosed Date [...] Depth unknown, no SLN, Location R shinto Raynaud's disease without gangrene 06/02/2019 Esophageal dysmotility 05/20/2019 JULIUS (obstructive sleep apnea) 05/20/2019 ILD (interstitial lung disease) 05/20/2019 Coronary artery disease invo lving [place] coronary artery of [place] heart without angina pectoris 03/24/2019 Nonrheumatic mitral valve stenosis 03/24/2019 H/O Hodgkin's lymphoma 07/05/2018 Acquired hypothyroidism 07/05/2018 documented as of this encounter (statuses as of 08/12/2024) Resolved Problems Problem Noted Date Diagnosed Date [...] see below) BCC R forehead 2008 ([facility]) Prediabetes 02/28/2021 02/01/2023 Overview: Per Prediabetes protocol Moderate protein malnutrition 12/15/2019 03/14/2023 Ankylosing spondylitis of cervical region 12/15/2019 07/07/2022 PSVT (paroxysmal supraventri cular tachycardia) 12/15/2019 03/21/2024 Moderate aortic stenosis 03/24/2019 H/O atrial fibrillation with out current medication 07/05/2018 03/14/2023 documented as of this encounter (statuses as of 08/12/2024) Immunizations Name Administration Dates Next Due COVID-19 [...] from [place]. He states he sees his School Library Media Specialist on Sunday and he also has call [...] 08/15/2024 11:30 AM EST Office Visit Cardiology, [facility] [address] [place] [address] Mike Graves, [address] [place] [address] 09/23/2024 1:20 PM EDT Office Visit Family Practice [facility] [address] [place] [address] Dewayne Pena MD [address] [place] [address] 10/06/2024 2:20 PM EDT Office Visit Rheumatology [facility] [address] [place] [phone] Timo Guzman MD [address] [facility] [place] [place] [address] 05/27/2025 1:20 PM EST Office Visit Dermatology [facility] [address] [place] [address] Jonnathan House PA-C [address] [place] [address] Health Maintenance Due Date Last [...] encounter Medical Devices Implanted Type Area Human Factors Engineer Device Identifier Shelf Expiration Date Model / Serial / Lot Cath Thermodilution 6fr - [id number] Implanted:Qty: 1 on 03/07/2023 by Armando Beltran MD at [facility] [employer] [place] [id number] 10/10/2024 [id number] / / [id number] Valve Aortic Transcath Fx 34mm - [id number] Implanted:Qty: 1 on 05/03/2023 by Armando Beltran MD at [facility] [employer] [id number] 08/10/2024 EVOLUTFX- 34 / [id number] / [id number] documented as of this encounter Advance Directives Documents on File Type Date Recorded Patient Computer Programming Manager Expl anation POLST 03/06/2022 [place] OR DERS [...] Advance Directives occurred with: Patient Care Teams Street Cleaning Equipment Operator Relationship Specialty Start Date End Date Dewayne Pena MD [address] [place] [address] PCP - General Family Medicine 04/30/23 documented as of this encounter
--- OUTSIDE RECORDS SUMMARY | 2024-08-30 14:22 | External Medical Summary | Summary of Care ---
Author Name Unknown Organization [facility] Address [address] [place] [address] Phone [phone] Care Team Providers Care Medium Cycle Salesperson Name Role Phone Dewayne Pena MD Primary Care Provider [phone] Reason for Visit * Reason Onset Date Comments Advice 08/11/2024 Encounter Details Date Type Department Care Team (Late st Contact Info) Description 08/11/2024 Telephone Vascular Surg [facility] [address] [place] [address] German Tay MD [address] [place] [address] Advice Allergies No known active [...] Depth unknown, no SLN, Location R christian Raynaud's disease without gangrene 06/02/2019 Esophageal dysmotility 05/20/2019 JULIUS (obstructive sleep apnea) 05/20/2019 ILD (interstitial lung disease) 05/20/2019 Coronary artery disease invo lving [place] coronary artery of [place] heart without angina pectoris 03/24/2019 Nonrheumatic mitral [...] prior, see below) BCC R forehead 2008 ([facility]) Prediabetes 02/28/2021 02/01/2023 Overview: Per [...] from Ami. He states he sees his Marketing Project Coordinator on Sunday and he also [...] 08/15/2024 11:30 AM EST Office Visit Cardiology, [facility] [address] [place] [address] Mike Graves, [address] [place] [address] 08/18/2024 1:32 PM EST Hospital Encounter OR [facility], OPERATING ROOM [facility] [place] [address] [facility] [place] [address] German Tay [facility] [address] [facility] [place] [address] 08/18/2024 1:32 PM EST - 08/18/2024 3:35 PM EST Surgery OR [facility], OPERATING ROOM [facility] [place] [address] [facility] [place] [address] German Tay MD [address] [place] [address] STAB PHLEBECTOMY VARICOSE VEINS MORE THAN 20, ONE EXTREMITY 08/20/2024 1:00 PM EST Imaging Vascular Lab, [facility] 2nd Floor, [place] [address] [place] [address] 08/20/2024 2:10 PM EST Office Visit Vascular Surgery, [facility] 132 [place] [address] Yandel Rizo MD [address] [place] [address] 09/23/2024 1:20 PM EDT Office Visit Family Practice [facility] [address] [place] [address] Dewayne Pena MD 132 [place] [address] 10/06/2024 2:20 PM EDT Office Visit Rheumatology [facility] 132 [place] [address] Timo Guzman MD [facility]0 [place] [address] 05/27/2025 1:20 PM EST Office Visit Dermatology [facility] [address] [place] [phone] Jonnathan House PA-C [address] [place] [phone] Scheduled Procedures Name Priority Associated Diagnoses [...] this encounter Medical Devices Implanted Type Area Log Yard Manager Device Identifier Shelf Expiration Date Model / Serial / Lot Cath Thermodilution 6fr - [id number] Implanted:Qty: 1 on 03/07/2023 by Armando Beltran MD at [facility] [employer] KRISTYN [id number] 10/10/2024 [id number] / / [id number] Valve Aortic Transcath Fx 34mm - [id number] Implanted:Qty: 1 on 05/03/2023 by Armando Beltran MD at [facility] [employer] [id number] 08/10/2024 EVOLUTFX- 34 / [id number] / [id number] documented as of this encounter Advance Directives Documents on File Type Date Recorded Patient Tricot Knitter Expl anation POLST 03/06/2022 [place] OR DERS FOR LIFE-SUSTAINING TREATMENT POLST 12/13/2021 [place] OR DERS FOR LIFE-SUSTAINING TREATMENT * Full [...] Advance Directives occurred with: Patient Care Teams Medium Cycle Salesperson Relationship Specialty Start Date End Date Dewayen Pena MD [address] [place] [address] PCP - General Family Medicine 04/30/23 documented as of this encounter
--- OUTSIDE RECORDS SUMMARY | 2024-08-30 14:22 | External Medical Summary | Summary of Care ---
Author Name Unknown Organization [facility] Address [address] [place] [address] Phone [phone] Care Team Providers Care Carving Machine Operator Name Role Phone Dewayne Pena MD Primary Care Provider [phone] Reason for Visit * Reason Onset Date Comments Advice 08/11/2024 Encounter Details Date Type Department Care Team (Late st Contact Info) Description 08/11/2024 Telephone Vascular Surg [facility] [address] [place] [address] German Tay MD [address] [place] [address] Advice Allergies No known active [...] Depth unknown, no SLN, Location R presybeterian Raynaud's disease without gangrene 06/02/2019 Esophageal dysmotility 05/20/2019 JULIUS (obstructive sleep apnea) 05/20/2019 ILD (interstitial lung disease) 05/20/2019 Coronary artery disease invo lving [place] coronary artery of [place] heart without angina pectoris 03/24/2019 Nonrheumatic [...] prior, see below) BCC R forehead 2008 ([facility]) Prediabetes 02/28/2021 02/01/2023 Overview: Per Prediabetes [...] from Ami. He states he sees his Vegetable Packer on Sunday and he also has call [...] 11:30 AM EST Office Visit Cardiology, [facility] [address] [place] [address] Mike Graves DO [address] [place] [address] 09/23/2024 1:20 PM EDT Office Visit Family Practice [facility] [address] [place] [address] Dewayne Pena MD [address] [place] [address] 10/06/2024 2:20 PM EDT Office Visit Rheumatology [facility] [address] [place] [phone] Timo Guzman MD [facility] [place] [address] 02/23/2025 10:00 AM EDT Office Visit Pulmonary Medicine, [facility] [address] [place] [address] Juan Pablo Marsh MD [address] [place] [address] 05/27/2025 1:20 PM EST Office Visit Dermatology [facility] [address] [place] [phone] Jonnathan House PA-C [address] [place] [address] Health Maintenance Due Date Last [...] this encounter Medical Devices Implanted Type Area Process Engineer Device Identifier Shelf Expiration Date Model / Serial / Lot Cath Thermodilution 6fr - [id number] Implanted:Qty: 1 on 03/07/2023 by Armando Beltran MD at [facility] [employer] KRISTYN [id number] 10/10/2024 [id number] / / [id number] Valve Aortic Transcath Fx 34mm - [id number] Implanted:Qty: 1 on 05/03/2023 by Armando Beltran MD at [facility] [employer] [id number] 08/10/2024 EVOLUTFX- 34 / [id number] / [id number] documented as of this encounter Advance Directives Documents on File Type Date Recorded Patient Turkish Line Attendant Expl anation POLST 03/06/2022 [place] OR DERS FOR LIFE-SUSTAINING TREATMENT POLST 12/13/2021 [place] OR DERS FOR LIFE-SUSTAINING TREATMENT * Full [...] Advance Directives occurred with: Patient Care Teams Carving Machine Operator Relationship Specialty Start Date End Date Dewayne Pena MD [address] [place] [address] PCP - General Family Medicine 04/30/23 documented as of this encounter
--- OUTSIDE RECORDS SUMMARY | 2024-08-30 14:22 | External Medical Summary | Summary of Care ---
Author Name Unknown Organization [facility] Address [address] [place] [address] Phone [phone] Care Team Providers Care Metal Machine Operator Name Role Phone Dewayne Pena MD Primary Care Provider [phone] Reason for Visit * Reason Onset Date Comments Advice 08/11/2024 Encounter Details Date Type Department Care Team (Late st Contact Info) Description 08/11/2024 Telephone Vascular Surg [facility] [address] [place] [address] German Tay MD [address] [place] [address] Advice Allergies No known active [...] 2013, Depth unknown, no SLN, Location R druze Raynaud's disease without gangrene 06/02/2019 Esophageal dysmotility 05/20/2019 JULIUS (obstructive sleep apnea) 05/20/2019 ILD (interstitial lung disease) 05/20/2019 Coronary artery disease invo lving [place] coronary artery of [place] heart without angina pectoris 03/24/2019 Nonrheumatic mitral [...] 2013, Depth unknown, no SLN, Location R druze (still no path in chart, pt confirmed that he had surgery for melanoma at that site and for BCC prior, see below) BCC R forehead 2008 ([facility]) Prediabetes 02/28/2021 02/01/2023 Overview: Per [...] from Ami. 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 on Sunday and he also has call [...] 08/15/2024 11:30 AM EST Office Visit Cardiology, [facility] [address] [place] [address] Mike Graves, [address] [place] [address] 08/18/2024 1:32 PM EST Hospital Encounter [place] [facility] [facility] [place] [address] [facility] [place] [address] German Tay MD [address] [facility] [place] [address] 08/18/2024 1:32 PM EST - 08/18/2024 3:35 PM EST Surgery [place] [facility] [facility]PER[place] ROOM [facility] [place] [address] [facility] [place] [address] German Tay MD [address] [place] [address] STAB PHLEBECTOMY VARICOSE VEINS MORE THAN 20, ONE EXTREMITY 08/20/2024 1:00 PM EST Imaging Vascular Lab, [facility] 2nd Floor, [place] 132 [place] [address] 08/20/2024 2:10 PM EST Office Visit Vascular Surgery, [facility] 132 [place] [address] Yandel Rizo MD [address] [place] [address] 09/23/2024 1:20 PM EDT Office Visit Family Practice [facility] 132 [place] [address] Dewayne Pena MD 132 [place] [address] 10/06/2024 2:20 PM EDT Office Visit Rheumatology [facility] 132 [facility] [place] [phone] Timo Guzman MD [facility] [place] [address] 05/27/2025 1:20 PM EST Office Visit Dermatology [facility] [address] [place] [phone] Jonnathan House PA-C [address] [place] [address] Scheduled Procedures Name Priority Associated Diagnoses [...] this encounter Medical Devices Implanted Type Area Grading Clerk Device Identifier Shelf Expiration Date Model / Serial / Lot Cath Thermodilution 6fr - [id number] Implanted:Qty: 1 on 03/07/2023 by Armando Beltran MD at [facility] [employer] KRISTYN [id number] 10/10/2024 [id number] / / [id number] Valve Aortic Transcath Fx 34mm - [id number] Implanted:Qty: 1 on 05/03/2023 by Armando Beltran MD at [facility] [employer] [id number] 08/10/2024 EVOLUTFX- 34 / [id number] / [id number] documented as of this encounter Advance Directives Documents on File Type Date Recorded 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
--- OUTSIDE RECORDS SUMMARY | 2024-08-30 14:22 | External Medical Summary | Summary of Care ---
Author Name Unknown Organization [facility] Address [address] [place] [address] Phone [phone] Care Team Providers Care Television Repairer Name Role Phone Dewayne Pena MD Primary Care Provider [phone] Reason for Visit * Reason Onset Date Comments Health Maintenance 08/04/2024 Encounter Details Date Type Department Care Team (Late st Contact Info) Description 08/04/2024 Telephone Family Practice [facility] [address] [employer] [address] [place] [address] Dewayne Pena MD [address] [employer] [place] [address] Health Maintenance Allergies No known active allergiesdocumented [...] Depth unknown, no SLN, Location R latter-day Raynaud's disease without gangrene 06/02/2019 Esophageal dysmotility 05/20/2019 JULIUS (obstructive sleep apnea) 05/20/2019 ILD (interstitial lung disease) 05/20/2019 Coronary artery disease invo lving [place] coronary artery of [place] heart without angina pectoris 03/24/2019 Nonrheumatic mitral [...] prior, see below) BCC R forehead 2008 ([facility]) Prediabetes 02/28/2021 02/01/2023 Overview: [...] encounter Miscellaneous Notes * Telephone Encounter - Ricarda Hale LPN - 08/04/2024 2:56 PM EST Care [...] 08/15/2024 11:30 AM EST Office Visit Cardiology, [address] [place] [address] Mike Graves DO [address] [place] [address] 08/18/2024 1:32 PM EST Hospital Encounter OR [facility], OPERATING ROOM [facility] [address] [place] [facility] [place] [address] German Tay MD [address] [facility] [place] [address] 08/18/2024 1:32 PM EST - 08/18/2024 3:35 PM EST Surgery OR [facility], OPERATING ROOM [facility] [address] [facility] [place] [phone] German Tay MD [address] [place] [address] STAB PHLEBECTOMY VARICOSE VEINS MORE THAN 20, ONE EXTREMITY 08/20/2024 1:00 PM EST Imaging Vascular Lab, [facility] 2nd Floor, [place] [address] [place] [address] 08/20/2024 2:10 PM EST Office Visit Vascular Surgery, [facility] [address] [place] [address] Yandel Rizo MD [address] [place], [place] [id number] 09/23/2024 1:20 PM EDT Office Visit Family Practice [facility] [address] [place] [address] Dewayne Pena MD [address] [place] [address] 10/06/2024 2:20 PM EDT Office Visit Rheumatology [facility] [address] [place] [address] [place] [address] [place] [address] [place] [address] 05/27/2025 1:20 PM EST Office Visit Dermatology [facility] [address] [place] [address] Jonnathan House PA-C [address] [place] [phone] Scheduled Procedures Name Priority Associated Diagnoses Date/Ti [...] encounter Medical Devices Implanted Type Area Automatic Centrifugal Station Operator Device Identifier Shelf Expiration Date Model / Serial / Lot Cath Thermodilution 6fr - [id number] Implanted:Qty: 1 on 03/07/2023 by Armando Beltran MD at [facility] [employer] KRISTYN [id number] 10/10/2024 [id number] / / [id number] Valve Aortic Transcath Fx 34mm - [id number] Implanted:Qty: 1 on 05/03/2023 by Armando Beltran MD at [facility] [employer] [id number] 08/10/2024 EVOLUTFX- 34 / [id number] / [id number] documented as of this encounter Advance Directives Documents on File Type Date Recorded 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
--- OUTSIDE RECORDS SUMMARY | 2024-08-30 14:23 | External Medical Summary | Summary of Care ---
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*; 1st degree AV block; Coronary artery disease involving chuloonawick coronary artery of chuloonawick heart without angina pectoris; H/O Hodgkin's lymphoma; Hemorrhage of varicose veins of left lower extremity; ILD (interstitial lung disease) (HCC); JULIUS (obstructive sleep apnea); Paroxysmal atrial fibrillation (HCC); S/P TAVR (transcatheter aortic valve replacement); Varicose veins of leg with complications Allergies No known active allergiesdocumented as of this encounter (statuses as of 07/24/2024) Medications Cholecalciferol 25 MCG (1000 UT) Oral [...] Active Additional Information Patient not taking.Reported on 07/23/2024 Levothyroxine Sodium 75 MCG Oral Tablet (Levoxyl) TAKE 1 TABLET BY MOUTH EVERY DAY IN THE MORNING (AT LEAST 30 MIN PRIOR TO BREAKFAST OR OTHER MEDS) 90 Tablet 3 4 Active Tavaborole 5 % External Solution APPLY TO AFFECTED TOENAILS ONCE A DAY FOR 6 MONTHS Active Sodium Fluoride 5000 PPM 1.1 % Dental Gel Active documented as of this encounter (statuses as of 07/24/2024) Active Problems Problem Noted Date Diagnosed Date [...] Depth unknown, no SLN, Location R anglican Raynaud's disease without gangrene 06/02/2019 Esophageal dysmotility 05/20/2019 JULIUS (obstructive sleep apnea) 05/20/2019 ILD (interstitial lung disease) 05/20/2019 Coronary artery disease invo lving chuloonawick coronary artery of chuloonawick heart without angina pectoris 03/24/2019 Nonrheumatic mitral valve stenosis 03/24/2019 H/O Hodgkin's lymphoma 07/05/2018 Acquired hypothyroidism 07/05/2018 documented as of this encounter (statuses as of 07/24/2024) Resolved Problems Problem Noted Date Diagnosed Date Resolved Date Osteoporotic fracture of left hip 09/28/2022 03/14/2023 Aortic root enlargement 07/07/2022/2 08/2022 Sinus tachycardia 03/16/2022 03/14/2023 Hx of nonmelanoma skin cancer 03/24/2021 05/14/2023 Overview (03/24/2021): Hx MM date 2013, Depth unknown, no SLN, Location R anglican (still no path in chart, pt confirmed that he had surgery for melanoma at that site and for BCC prior, see below) BCC R forehead 2009 ([facility]) Prediabetes 02/28/2021 02/01/2023 Overview: Per Prediabetes protocol Moderate protein malnutrition 12/15/2019 03/14/2023 Ankylosing spondylitis of cervical region 12/15/2019 07/07/2022 PSVT (paroxysmal supraventri cular tachycardia) 12/15/2019 03/21/2024 Moderate aortic stenosis 03/24/2019 H/O atrial fibrillation with out current medication 07/05/2018 03/14/2023 documented as of this encounter (statuses as of 07/24/2024) Immunizations Name Administration Dates Next Due COVID-19 mRNA, LNP-s, No Pre serve, 2-Dose Series (Moderna) 08/21/2020,07/17/2020 COVID-19, MRNA-LNP, PF, 30 M CG/0.3 mL, 12 YRS AND ABOVE, IM (PFIZER-Comirnat) 04/10/2024,03/27/2023 COVID-19, mRNA, LNP-s, PF, B ooster, [...] 06/18/1977 Smokeless Tobacco: Never Tobacco Cessation:Counseling Given: No Alcohol Use Standard Drinks/Week Comments No 0 [...] Reading Time Taken Comments Blood Pressure 122/72 07/23/2024 12:39 PM EST Pulse 92 07/23/2024 12:39 PM EST Temperature - - Respiratory Rate - - Oxygen Saturation - - Inhaled Oxygen Concentration - - Weight 68 kg (150 lb) 07/23/2024 12:39 PM EST Height - - Body Mass Index 20.34 06/25/2024 11:23 AM EST documented in this encounter Functional Status * Do you have serious difficulty walking or climbing stairs? (5 years old or older) Answer Date of Assessment Author No 05/04/2023 1:22 PM EST Mary Gee MSW documented as of this encounter Progress Notes * Zach Zayas PA-C - 07/23/2024 12:30 PM EST Images from the original note were not included. 07/24/2024 ADDENDUM: Mr. Daley wishes to proceed with surgery on 08/18/2024. Will arrange for surgery for 08/18/2025. Pre op letter completed and to be mailed to patient. Case created and orders placed. Will need PATs with ekg and labwork at [facility]. Also needs return clinic visit at [facility] on 08/20/2024 with LLE venous duplex. Date of Service: 07/23/2024 12:47 PM Guido Daley is a 73 year old male. Patient being seen in consultation at the request of Dewayne Pena MD Chief Complaint: Mr. Daley returns to clinic with symptomatic varicose veins. HPI:Patient is a reformed smoker with JULIUS, Raynaud's disease, Pulm HTN, ILD, Bronchiectasis, Mitralstenosis/regurg, Aortic valve stenosis (s/p TAVR), remote Hodgkin's, CAD, AFib (s/p Ablation, remains on Eliquis and Sotalol), PSVT, Aortic root enlargement (4.1 cm), BMI under 20 who as of Jan 2024,pt was on hospice care following the TAVR, which was complicated by pneumonia VARICOSE VEINS: Patient reports varicose veins in bilateral extremity. Patient reports a multiple significant hemorrhages from a ruptured superficial varicosity, @ least 5 times The patient has worn compression for more than 3 months. Clinical Classification (C): C2 (Varicose veins). S (Symptomatic) varicose veins. Etiologic Classification (E): Ep (Primary). Anatomic Classification (A): An (No venous location identified). Pathophysiologic Classification (P): Pn (No pathophysiology identified). FAMILY HISTORY: Family history is noncontributory. Current Outpatient Medications Medication Sig Dispense Refill [...] two times per day 90 Tablet 3 Comirnaty 30 MCG/0.3ML Intramuscular Suspension Prefilled Syringe Inject into a large muscle. (Patient not taking: Reported on 05/26/2024) 0.3 mL 0 Levothyroxine Sodium 75 MCG Oral Tablet (Levoxyl) TAKE 1 TABLET BY MOUTH EVERY DAY IN THE MORNING (AT LEAST 30 MIN PRIOR TO BREAKFAST OR OTHER MEDS) 90 Tablet 3 Tavaborole 5 % External Solution APPLY TO AFFECTED TOENAILS ONCE A DAY FOR 6 MONTHS No current facility-administered medications for this visit. Review of patient's allergies indicates: No Known Allergies Patient Active Problem List Diagnosis H/O Hodgkin's lymphoma Acquired hypothyroidism Coronary artery disease involving chuloonawick coronary artery of chuloonawick heart without angina pectoris Nonrheumatic mitral valve stenosis Esophageal dysmotility JULIUS (obstructive sleep apnea) ILD (interstitial lung disease) ([facility]) Raynaud's disease without gangrene Hx of melanoma of skin PHT (pulmonary hypertension) (HCC) Protein-calorie malnutrition (HCC) Neuromuscular disorder (HCC) Senile osteoporosis BMI less than 19,adult S/P TAVR (transcatheter aortic valve replacement) 1st degree AV block Paroxysmal atrial fibrillation (HCC) Polymyositis (HCC) Hospice care patient Hemorrhage of varicose veins of left lower extremity Spider veins Varicose veins of leg with complications Venous insufficiency Past Medical History: Diagnosis Date Atrial fibrillation (HCC) BMI less than 19,adult 03/16/2023 Bronchiectasis (HCC) Cardiac arrhythmia Coronary artery disease involving chuloonawick coronary artery of chuloonawick heart without angina pectoris 03/24/2019 Hodgkin's disease (HCC) 1977 s/p radiation Hx of melanoma of skin 03/24/2021 Hx MM date 2013, Depth unknown, no SLN, Location R anglican ILD (interstitial lung disease) (HCC) Moderate aortic [...] by Armando Beltran MD at [facility] EGD, FLEXIBLE, DIAGNOSTIC 05/21/2019 reflux / [facility] MUSCLE BIOPSY, DEEP Left 04/11/2022 BIOPSY MUSCLE DEEP performed by Sadiq Kennedy MD at OR [facility] REMOVAL OF SPLEEN, TOTAL 1978 Due to Hodgkin's disease REPLACE AORTIC VALVE, PERCUTANEOUS FEMORAL Bilateral 05/03/2023 REPLACE AORTIC VALVE, PERCUTANEOUS FEMORAL performed by Armando Beltran MD at [facility] REPLACE AORTIC VALVE, PERCUTANEOUS FEMORAL Bilateral 05/03/2023 REPLACE AORTIC VALVE, PERCUTANEOUS FEMORAL performed by Cisco Herrera MD, PhD at [facility] TOTAL HIP REPLACEMENT & PROSTHESIS Left 11/28/2021 Family History Problem Relation Name Age of Onset Breast Cancer Mother Other (Natural causes) Mother age 98 Lung Disorder Father Pulm fibrosis-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- age 95 [address] Father [address] x 2 Other (Parathyroid problems) Sister Cherise Other (Knee problems) Brother Joo s/p knee replacement Social History Socioeconomic History Marital status: Spouse name: Not on file Number of children: Not on file Years of education: Not on file Highest education level: Not on file Occupational History 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 No mold. Social Needs Financial Resource Strain: Low Risk (03/07/2024) Financial Resource Strain Do you have any trouble paying for your medications, or do you think you might in the future? (Adult - for ages 18 years and over): No Does your family have trouble paying for medicine? (Household - for ages 0-17 years): Not on file Food Insecurity: No Food Insecurity (03/07/2024) Food Insecurity Do you need food for this week? (Adult - for ages 18 years and over): No Are you able to get enough food for your family? (Household - for ages 0-17 years): Not on file Does your family need food this week? (Household - for ages 0-17 years): Not on file Do you always have enough food for your family? (Household - for ages 0-17 years): Not on file Transportation Needs: No Transportation Needs (03/07/2024) Transportation Needs Do you have trouble getting a ride to medical visits or work? (Adult - for ages 18 years and over):Not on file Does your family have a hard time getting a ride to doctors visits? (Household - for ages 0-17 years): Not on file Has lack of transportation kept you from medical appointments, meetings, work, or from getting things needed for daily living? Check all that apply. (Adult - for ages 18 years and over): No Do you (or your family) have trouble finding or paying for a ride (transportation)? (Household - for ages 0-17 years): Not on file Social Connections: Socially Integrated (03/07/2024) Social Connections How often do you feel lonely or isolated from those around you? (Adult - for ages 18 years and over): Never Housing Stability: Low Risk (03/07/2024) Housing Stability Do you currently live in a prison or have no steady place to sleep at night? (Adult - for ages 18 years and over): No Do you think you are at risk of becoming homeless? (Adult - for ages 18 years and over): Not on file Does your family worry about paying for your home or becoming homeless? (Household - for ages 0-17 years): Not on file Are you homeless or worried that you might be in the future? (Adult - for ages 18 years and over): No Are you (or your family) homeless or worried that you might be in the future? (Household - for ages0-17 years): Not on file COMPLETE REVIEW OF SYSTEMS: Cardiovascular: Negative for chest pain, palpitations, angina or CT Pulmonary: Chronic CLANCY, has an oxygenator for when working @ home Neurological: Negative for stroke, TIA, amaurosis fugax All other systems negative except for those noted above and in the history of present illness (HPI). GENERAL MULTI-SYSTEM PHYSICAL EXAM: VITAL SIGNS: BP 122/72 (BP Site: Left Arm, BP Position: Sitting, BP Cuff Size: Regular) | Pulse 92 | Wt 68 kg (150 lb) | BMI 20.34 kg/m | BSA 1.86 m GENERAL MULTI-SYSTEM PHYSICAL EXAM: GENERAL: Normal grooming habits, no acute distress, and appears stated age. NECK: Chronic anterior flexion of neck RESPIRATORY: Respiratory effort normal, lungs CTA. CARDIOVASCULAR: RRR, valvular sound with murmur, BLE edema. Varicosities present of bilateral lowerlegs to anterior tibial and medial calves, left more than right. Very large/protruding varicose vein left anterior tibial region, smaller varicose vein left anterior foot, multiple/scattered spider veins. Isolated varicose veins B/L patellar region SKIN: no ulcers, no rash, no induration, capillary refill normal, no dependent rubor, and yes to hemosiderin staining both feet, left more than right. PSYCHIATRIC: orientation to time, place and person normal and recent and remote memory normal. EYES: conjunctivae normal, eye lids normal, pupils normal, and irises normal. NEUROLOGIC: CN, motor function and sensory exam grossly intact PULSE SCALE: Carotid Right:----Bruit: No Left:----Bruit: No Radial Right: 3 Left: 3 Dorsalis Pedis Right: 3 Left: 3 Posterior Tibial Right: 3 Left: 3 PULSE SCALE: 4=Aneurysmal; 3=Normal; 2=Diminished; 1=Barely Palpable; 0=Absent DIAGNOSTIC STUDIES: 07/15/24 BLE Venous Insuff Duplex: RLE: RFV w/ reflux, over 1 sec, RGSV 0.46 cm w/ reflux at knee, over 500 msec LLE: LFV/Pop V w/ reflux, over 1 sec, LGSV 0.65 cm w/ reflux, over 500 msec The above diagnostic images were directly visualized and independently interpreted by me on 07/23/2024 with results as above 04/11/23 CTA C/A/P: 2.2 cm infrarenal abd aorta 03/18/21 Carotid Duplex: <50% ICA stenosis, ante verts 12/14/18 AAA screen: 2.1 cm infrarenal abd aorta CARDIAC STUDIED: 05/19/2024 ECHO - The qualitative LV ejection fraction is 55-59% [...] is 56mm Hg. There is a small [id number] interatrial shunt per color Doppler interrogation. Findings suggest PFO versus small ASD. Compared to prior study of 07/02/2023, there is no significant change. LABS: Lab Results Component Value Date/Time CREATININE - [facility] 0.7 10/26/2023 06:03 AM CREATININE - [facility] 0.7 06/15/2023 01:13 PM CREATININE - [facility] 0.6 05/05/2023 05:46 AM CREATININE - [facility] 0.9 06/27/2019 02:05 PM CREATININE - [facility] 0.8 05/13/2019 03:45 PM CREATININE - [facility] 0.8 01/30/2019 08:25 AM Lab Results Component Value Date/Time LDL CHOLESTEROL (CALCULATED) - [facility] 83 01/19/2023 11:03 AM LDL CHOLESTEROL (CALCULATED) - [facility] 55 12/26/2018 08:25 AM Hemoglobin Results: Lab Results Component Value Date/Time HGB 12.0 (L) 10/26/2023 06:03 AM HGB 13.3 (L) 06/15/2023 01:13 PM HGB 12.5 (L) 05/05/2023 05:46 AM HGB 12.9 (L) 04/29/2019 10:05 AM HGB 12.7 (L) 11/20/2018 09:57 AM HGB 12.1 (L) 11/15/2018 11:39 AM HGB 12.6 (L) 11/08/2018 02:17 PM Lab Results Component Value Date/Time [facility] (H) 06/02/2021 11:52 AM The above clinical labs were reviewed by me on 07/23/2024 IMPRESSIONS: Symptomatic BLE varicose veins with h/o multiple episodes of spontaneous bleeding from superficial varicosity of dorsal/lateral left foot. Recent insuff duplex revealed B/L deep and superficial (GSV) reflux CAD. AFib (s/p Ablation, remains on Eliquis and Sotalol) PSVT Aortic root enlargement (4.1 cm) Mitral valve regurg, mild on 2023 TTe Aortic valve stenosis (s/p TAVR) w/ mod-severe perivalvular AI on 2023 TTe Moderate-severe TR, on 2023 TTe Pulm HTN (PA systolic 56 on 2023 TTe) HTN. Dyslipidemia. Former smoker ILD Bronchiectasis JULIUS, on CPAP Raynaud's disease Remote Hodgkin's Hypothyroidism Anemia. PLAN: The patient was counseled regarding the pathophysiology and the natural history of varicose veins/venous insufficiency, as well as the interventional and noninterventional treatment options [id number] - 30 mm knee high compression stockings, leg elevation, and a regular walking program. Continue ASA 81 mg for platelet inhibition/atherosclerosis/CAD Continue Lipitor 20 mg for pleiotropic benefits of statins Mr. Daley would like to proceed with L GSV RFA and stab phlebectomies. Consent was obtained today. He will call back with a date for surgery that would work for him. The patient was seen and examined with Sp Tay MD. Louie White, LEOY Section of Vascular [place] [address] [phone] I have reviewed the advanced practitioner's documentation on the date of service referenced in note, and I agree with, and take responsibility for the plan of care. Mr. Daley returns to discuss management of symptomatic varicose veins in the LLE. Bleeding from varicose vein in the dorsal foot on the left. Kim phlebitica in BLE. Large varicose veins in bilateral lower extremities. No hx of blood clots. Compression has helped. I think he is still at high risk of bleeding given several large varicosities with near ulceration overlying the area. Offered LLE RFA GSV with stab phlebectomy. He will need preoperative assessment by anesthesia. He would like to discuss with his and will call back with a surgical date. The patient was counseled at length regarding the risks, benefits and alternatives of varicose vein/venous ablative surgery. I have discussed with the patient that they are at very high risk for the following anticipated complications due to the patients co-morbidities including deep venous thrombosis or other blood clot requiring fdc anticoagulation. I have also discussed other less common risks which include, but are not limited to, acute and/or chronic pain, swelling, scarring, skin/nerve injury, bleeding, infection, and varicose vein/symptom recurrence after the procedure. The patient understands and wishes to proceed. The [facility] Patient Education booklet was given to the patient. German Tay MD Vascular Surgeon Department of Vascular Surgery [facility] documented in this encounter Nursing Notes * Kimmie Wilkinson CMA - 07/23/2024 12:40 PM EST Reviewed the option of transferring scripts to [facility] pharmacy with patient and / or family. Patient stated no change in medications. Kimmie Wilkinson CMA documented in this encounter Miscellaneous Notes * Addendum Note - Marvin Garcia CRNP - 07/24/2024 1:53 PM ESTAddended by: MARVIN GARCIA on: 07/24/2024 01:53 PM Modules accepted: Orders documented in this encounter Plan of Treatment Upcoming Encounters Date Type Department Care Team (Latest Contact Info) Description 07/29/2024 10:00 AM EST Office Visit Sleep Disorders Ctr [facility] [address] [place] [phone] Cara Brantley, DO [address] [place] [address] 07/29/2024 11:10 AM EST Laboratory Laboratory, [facility] [address] [place] [id number] [facility] [place] [address] [place] [address] 08/15/2024 11:30 AM EST Office Visit Cardiology, [facility] [address] [place] [address] Mike Graves, DO [address] [place] [address] 08/18/2024 1:32 PM EST Hospital Encounter [place] [facility], OPERATING ROOM [facility] [address] [place] [phone] eGrman Tay MD [address] [place] [address] 08/18/2024 1:32 PM EST - 08/18/2024 3:35 PM EST Surgery [facility], [facility] [address] [facility] [place] [address] German Tay MD [address] [place] [address] STAB PHLEBECTOMY VARICOSE VEINS MORE THAN 20, ONE EXTREMITY 08/20/2024 1:00 PM EST Imaging Vascular Lab, [facility] II 2nd Floor, [place] [address] [place] [address] 08/20/2024 2:10 PM EST Office Visit Vascular Surgery, [facility] [address] [place] [address] Yandel Rizo MD [address] [place] [address] 09/23/2024 1:20 PM EDT Office Visit Family Practice [facility] [address] [place] [address] Dewayne Pena MD [address] [place] [address] 10/06/2024 2:20 PM EDT Office Visit Rheumatology [facility] [address] [facility] [place] [phone] Timo Guzman MD [facility] [place] [address] 05/27/2025 1:20 PM EST Office Visit Dermatology [facility] [address] [place] [phone] Jonnathan House PA-C [address] [place] [id number] Scheduled Orders Name Type Priority Associated Diagnoses Orde r Schedule EKG EKG Routine 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 Ordered: 07/24/2024 BASIC METABOLIC PANEL Lab Routine 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 Expected: 07/24/2024, Expires: 07/24/2025 CBC Lab Routine 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 Expected: 07/24/2024, Expires: 07/24/2025 VASC DUPLEX VENOUS LE UNILAT Medical Imaging Routine 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 Expected: 08/20/2024, Expires: 08/21/2026 Scheduled Procedures Name Priority Associated Diagnoses Date/Ti [...] this encounter Medical Devices Implanted Type Area Adult Protective Caseworker Device Identifier Shelf Expiration Date Model / Serial / Lot Cath Thermodilution 6fr - [id number] Implanted:Qty: 1 on 03/07/2023 by Armando Beltran MD at [facility] [employer]ST[employer] [id number] 10/10/2024 [id number] / / [id number] Valve Aortic Transcath Fx 34mm - [id number] Implanted:Qty: 1 on 05/03/2023 by Armando Beltran MD at [facility] [employer] [id number] 08/10/2024 [id number] / [id number] / [id number] documented as of this encounter Visit Diagnoses Diagnosis 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- Primary 1st degree AV block First degree atrioventricular block Coronary artery disease involving chuloonawick coronary artery of chuloonawick heart without angina pectoris H/O Hodgkin's lymphoma Personal history of Hodgkin's disease Hemorrhage of varicose veins of left lower extremity ILD (interstitial lung disease) (HCC) Postinflammatory pulmonary fibrosis JULIUS (obstructive sleep apnea) Obstructive sleep apnea (adult) (pediatric) Paroxysmal atrial fibrillation (HCC) Atrial fibrillation S/P TAVR (transcatheter aortic valve replacement) Heart valve replaced by other means Varicose veins of leg with complications Varicose veins of lower extremities with other complications 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- Primary 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 Varicose veins of leg with complications Varicose veins of lower extremities with other complications Varicose veins of leg with complications Varicose veins of lower extremities with other complications 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
--- OUTSIDE RECORDS SUMMARY | 2024-08-30 14:23 | External Medical Summary | Summary of Care ---
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 Allergies No known active allergiesdocumented [...] 2013, Depth unknown, no SLN, Location R religious Raynaud's disease without gangrene 06/02/2019 Esophageal dysmotility [...] 2013, Depth unknown, no SLN, Location R religious (still no path in chart, pt confirmed that he had surgery for melanoma at that site and for BCC prior, see below) BCC R forehead 2008 ([facility]) Prediabetes 02/28/2021 02/01/2023 Overview: Per [...] CG/0.3 mL, 12 YRS AND ABOVE, IM ([employer]) 04/10/2024,03/27/2023 COVID-19, mRNA, LNP-s, PF, B ooster, [...] No 05/04/2023 1:22 PM EST Mary Gee, AGUSTIN documented as of this encounter Plan of Treatment Upcoming Encounters Date Type Department Care Team (Latest Contact Info) Description 08/15/2024 11:30 AM EST Office Visit Cardiology, [facility] [place] [address] Mike Graves, [address] [place] [address] 08/18/2024 1:32 PM EST Hospital Encounter OR [facility], OPERATING ROOM [facility], [facility] [address] [place] [phone] German Tay MD [address] [facility] [place], [place] [id number] 08/18/2024 1:32 PM EST - 08/18/2024 3:35 PM EST Surgery OR [facility], OPERATING ROOM [facility], [facility] [address] [place] [phone] German Tay MD [address] [facility] [place] [id number] STAB PHLEBECTOMY VARICOSE VEINS MORE THAN 20, ONE EXTREMITY 08/20/2024 1:00 PM EST Imaging Vascular Lab, [facility] 2nd Floor, [place] [address] [place] [address] 08/20/2024 2:10 PM EST Office Visit Vascular Surgery, [facility] [address] [facility] [place] [address] Yandel Rizo MD [address] [facility] [place] [id number] 09/23/2024 1:20 PM EDT Office Visit Family Practice [facility] [address] [place] [address] Dewayne Pena MD [address] [place] [address] 10/06/2024 2:20 PM EDT Office Visit Rheumatology [facility] [address] [place] [phone] Timo Guzman MD [address] [place] [address] 05/27/2025 1:20 PM EST Office Visit Dermatology [facility] [address] [place] [address] Jonnathan House PA-C [address] [place] [address] Scheduled Procedures Name Priority Associated Diagnoses Date/Ti [...] this encounter Medical Devices Implanted Type Area Merchandising Director Device Identifier Shelf Expiration Date Model / Serial / Lot Cath Thermodilution 6fr - [id number] Implanted:Qty: 1 on 03/07/2023 by Armando Beltran MD at [facility] [employer] [place]ST[place] [id number] 10/10/2024 [id number] / / [id number] Valve Aortic Transcath Fx 34mm - [id number] Implanted:Qty: 1 on 05/03/2023 by Armando Beltran MD at [facility] [employer] [id number] 08/10/2024 [id number]- 34 / [id number] / [id number] documented as of this encounter Procedures Procedure Name Priority Date/Time Associated Diagnosis Comments BASIC METABOLIC PANEL Routine 07/29/2024 10:29 AM EST 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 CBC Routine 07/29/2024 10:29 AM EST 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 documented in this encounter Results * (ABNORMAL) CBC (07/29/2024 10:29 AM EST) WBC 5.97 4.00 - 10.80 K/uL 07/29/2024 11:30 AM EST [facility] RBC 3.09 4.50 - 5.25 M/uL 07/29/2024 11:30 AM EST [facility] [facility] HGB 9.8(L) 14.0 - 16.8 g/dL 07/29/2024 11:30 AM EST [facility] HCT 30.8(L) 40.0 - 48.4 % 07/29/2024 11:30 AM EST [facility] MCV 99.7 82.0 - 99.5 fL 07/29/2024 11:30 AM EST [facility] MCH 31.7 27.0 - 34.0 pg 07/29/2024 11:30 AM EST [facility]10 MCHC 31.8 32.0 - 36.0 g/dL 07/29/2024 11:30 AM EST [facility]10 RDW 18.0 11.5 - 15.5 % 07/29/2024 11:30 AM EST [facility]10 PLT 250 140 - 400 K/uL 07/29/2024 11:30 AM EST [facility] [place]10 MPV 12.2 6.6 - 11.1 fL 07/29/2024 11:30 AM EST [facility] [place]10 Blood Venous blood specimen / Unknown Venipuncture / Unknown 07/29/2024 10:29 AM EST 07/29/2024 10:30 AM EST Saurav LYONS LAB BLOOD ORDERABLES Final Result [place] [address] [address] [place] [address] * (ABNORMAL) BASIC METABOLIC PANEL (07/29/2024 10:29 AM EST) BUN 14 6 - 20 mg/dL 07/29/2024 12:01 PM EST [facility] CREATININE 0.7 0.6 - 1.2 mg/dL 07/29/2024 12:01 PM EST [facility] EGFR >90 >=60 mL/min 07/29/2024 12:01 PM EST [facility] [place] 5710 Comment:eGFR is calculated b ased on the CKD-EPI 2020 equation. SODIUM 137 135 - 146 mmol/L 07/29/2024 12:01 PM EST [facility] [place]10 POTASSIUM 4.5 3.5 - 5.1 mmol/L 07/29/2024 12:01 PM EST [facility] [place]10 CHLORIDE 94(L) 98 - 107 mmol/L 07/29/2024 12:01 PM EST [facility] [place]10 CO2 36(H) 22 - 32 mmol/L 07/29/2024 12:01 PM EST [facility]10 ANION GAP 7 7 - 15 mmol/L 07/29/2024 12:01 PM EST [facility] [facility]10 GLUCOSE 105 70 - 120 mg/dL 07/29/2024 12:01 PM EST [facility] [facility]10 CALCIUM 9.9 8.4 - 10.2 mg/dL 07/29/2024 12:01 PM EST [facility]10 Blood Venous blood specimen / Unknown Venipuncture / Unknown 07/29/2024 10:29 AM EST 07/29/2024 10:30 AM EST Saurav LYONS LAB BLOOD ORDERABLES Final Result Performing Organization Address City/State/[facility] Co de Phone Number [facility] [facility]10 [address] [facility] [place] [address] documented in this encounter Visit Diagnoses Diagnosis Varicose veins [...] Documents on File Type Date Recorded 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
--- OUTSIDE RECORDS SUMMARY | 2024-08-30 14:23 | External Medical Summary | Summary of Care ---
Author Name Unknown Organization [facility] [address] [facility] [address] Phone [phone] Care Team Providers Care Customer Sales Distributor Name Role Phone Dewayne Pena MD Primary Care Provider [phone] Encounter Details Date Type Department Care Team (Late st Contact Info) Description 07/28/2024 Orders Only Pulmonary Medicine, [facility] [address] [facility] [place] [address] Juan Pablo Marsh MD [address] [facility] [phone] Chronic respiratory failure with hypoxia (HCC)* Allergies [...] Inject into a large muscle. 0.3 mL Active Additional Information Patient not taking.Reported on [...] 2013, Depth unknown, no SLN, Location R pentecostal Raynaud's disease without gangrene 06/02/2019 Esophageal dysmotility 05/20/2019 JULIUS (obstructive sleep apnea) 05/20/2019 ILD (interstitial lung disease) 05/20/2019 Coronary artery disease invo lving [place] coronary artery of [place] heart without angina pectoris 03/24/2019 Nonrheumatic mitral [...] 2013, Depth unknown, no SLN, Location R pentecostal (still no path in chart, pt confirmed that he had surgery for melanoma at that site and for BCC prior, see below) BCC R forehead 2008 ([facility]) Prediabetes 02/28/2021 02/01/2023 Overview: Per [...] CG/0.3 mL, 12 YRS AND ABOVE, IM [facility] 04/10/2024,03/27/2023 COVID-19, mRNA, LNP-s, PF, B ooster, [...] Assessment Author No 05/04/2023 1:22 PM EST GeeMary MSW documented as of this encounter Plan of Treatment Upcoming Encounters Date Type Department Care Team (Latest Contact Info) Description 07/29/2024 10:00 AM EST Office Visit Sleep Disorders Ctr [facility] [address] [facility] [address] Cara Brantley, DO [address] [place] [address] 07/29/2024 11:10 AM EST Laboratory Laboratory, [facility] [address] [facility] [place] [phone] [facility] [address] [place] [address] 08/15/2024 11:30 AM EST Office Visit Cardiology, [facility] [address] [facility] [place], [place] [address] Mike Graves, DO [address] [facility] [place] [address] 08/18/2024 1:32 PM EST Hospital Encounter [place] [facility] [facility] [facility] [address] [facility] [address] German Tay MD [address] [facility] [place] [address] 08/18/2024 1:32 PM EST - 08/18/2024 3:35 PM EST Surgery [place] [facility] ROOM [facility] [address] [facility] [place] [address] German Tay MD [address] [place] [address] STAB PHLEBECTOMY VARICOSE VEINS MORE THAN 20, ONE EXTREMITY 08/20/2024 1:00 PM EST Imaging Vascular Lab, [facility] 2nd Floor, [place] 132 [facility] [place] [address] 08/20/2024 2:10 PM EST Office Visit Vascular Surgery, [facility] [address] [facility] [place] [address] Yandel Rizo MD [address] [place] [address] 09/23/2024 1:20 PM EDT Office Visit Family Practice [facility] [address] [facility] [place] [address] Dewayne Pena MD [address] [facility] [place] [address] 10/06/2024 2:20 PM EDT Office Visit Rheumatology [facility] 132 [place] [address] Timo Guzman MD [address] [place] [address] 05/27/2025 1:20 PM EST Office Visit Dermatology [facility] [address] [place] [phone] Jonnathan House PA-C [address] [place] [address] Scheduled Procedures Name Priority Associated Diagnoses [...] this encounter Medical Devices Implanted Type Area Clinical Unit Educator Device Identifier Shelf Expiration Date Model / Serial / Lot Cath Thermodilution 6fr - [id number] Implanted:Qty: 1 on 03/07/2023 by Armando Beltran MD at [facility] [employer]ST[employer] [id number] 10/10/2024 [id number] / / [id number] Valve Aortic Transcath Fx 34mm - [id number] Implanted:Qty: 1 on 05/03/2023 by Armando Beltran MD at [facility] [employer] [id number] 08/10/2024 EVOLUTFX- 34 / [id number] / [id number] documented as of this encounter Visit Diagnoses Diagnosis 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- Primary 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 Varicose veins of leg with complications Varicose veins of lower extremities with other complications Chronic respiratory failure with hypoxia (HCC)- Primary Chronic respiratory failure Varicose veins of leg with complications Varicose veins of lower extremities with other complications 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
--- OUTSIDE RECORDS SUMMARY | 2024-08-30 14:23 | External Medical Summary | Summary of Care ---
Author Name Unknown Organization [facility] Address [address] [place] [address] Phone [phone] Care Team Providers Care Forest Products Teacher Name Role Phone Dewayne Pena MD Primary Care Provider [phone] Reason for Visit * Reason Comments Follow Up Sleep Apnea Encounter Details Date Type Department Care Team (Late st Contact Info) Description 07/29/2024 10:00 AM EST Office Visit Sleep Disorders Ctr [facility] [address] [place] [address] Cara Brantley, [address] [place] [address] JULIUS (obstructive sleep apnea)*; ILD (interstitial lung disease) (HCC); Nocturnal hypoxemia Allergies No known active allergiesdocumented as of [...] by mouth every 6 hours as needed. Active documented as of this encounter (statuses [...] 2013, Depth unknown, no SLN, Location R christianity Raynaud's disease without gangrene 06/02/2019 Esophageal dysmotility 05/20/2019 JULIUS (obstructive sleep apnea) 05/20/2019 ILD (interstitial lung disease) 05/20/2019 Coronary artery disease invo lving [place] coronary artery of [place] heart without angina pectoris 03/24/2019 Nonrheumatic mitral [...] 2013, Depth unknown, no SLN, Location R christianity (still no path in chart, pt confirmed that he had surgery for melanoma at that site and for BCC prior, see below) BCC R forehead 2008 ([facility]) Prediabetes 02/28/2021 02/01/2023 Overview: Per [...] Sign Reading Time Taken Comments Blood Pressure 120/60 07/29/2024 9:46 AM EST Pulse 83 07/29/2024 9:46 AM EST Temperature 35.5 C (95.9 F) 07/29/2024 9:46 AM ES T Respiratory Rate 16 07/29/2024 9:46 AM EST Oxygen Saturation 85% 07/29/2024 9:46 AM EST Inhaled Oxygen Concentration - - Weight 68 kg (150 lb) 07/29/2024 9:46 AM EST Height 182.9 cm (6') 07/29/2024 9:46 AM EST Body Mass Index 20.34 07/29/2024 9:46 AM EST documented in this encounter Functional Status * Do you have serious difficulty walking or climbing stairs? (5 years old or older) Answer Date of Assessment Author No 05/04/2023 1:22 PM EST Mary Gee MSW documented as of this encounter Patient Instructions * Patient Instructions* Cara Brantley DO - 07/29/2024 10:02 AM EST For mouth leak with nasal interface: 1) Chin strap -- wraps around the head to hold the chin up (your [employer] can providethis) 2) Mouth tape SomniFix, PAPAllenMD, and Hostage Tape are some options a strip of (skin-safe) tape vertically across the center of your lips may be sufficient 3) SomnoSeal -- a flexible piece of silicone to sit inside the lips to block air leak ([email or web address]) 4) Changing to a full-face or lower-profile/hybrid mask which allows for mouth- breathing with CPAP use documented in this encounter Progress Notes * Cara Brantley, DO - 07/29/2024 9:48 AM EST Sleep Medicine Follow-Up HISTORY: Guido Daley is a 73 year old male for follow up of JULIUS. Hx ILD, bronchiectasis, pulmonary hypertension, hypothyroidism, CAD, Raynaud's, esophageal dysmotility. Initially presented with snoring, observed apneas, long sleep times and fatigue. PSG 03/30/2019: AHI 7.8, REM AHI 43.2, SpO2 jose 84%, time <89% 2.4 min, PLMI 22.1. Nocturnal oximetry 12/08/22 (ordered by Pulmonary) on room air (no CPAP): SpO2 jose 74%, time <=88% 20 min. DAMARI 25. Last seen by me 07/09/23. Sleeping well with CPAP 5-10 cwp. Residual AHI 5.1; adjusted CPAP to 6-11 cwp. Using CPAP 6-11 cmH2O. Clerk Operator had him do a nocturnal oximetry: Nocturnal oximetry 07/14/24 on CPAP and RA: SpO2 jose 76%, time <= 88% 2h 28m. Pulmonary ordered supplemental oxygen based on this result. Until about 10 days ago, he was sleeping well with the CPAP. Now getting 4-5 hours of sleep, then waking up short of breath. Subjective PAP adherence: excellent Snoring on PAP: yes, per his . Daytime sleepiness: not usually Daytime napping: near-daily for about 30 minutes Drowsy driving: none Interface: nasal pillows + mouth leak on exhalation now. Mask leak: no Use chin strap? no Dry nose or dry mouth: some Aerophagia: no [place] Sleepiness Scale: 7 Patient-Entered [facility] 2019 Msp: Part I And Employment Question 07/23/2024 9:18 AM EST - Filed by Patient Are you currently employed? No, Retired Date of fci: 04/18/2018 Do you have a spouse who is currently employed? No, Retired Date of fci: 03/18/2018 Medicare requires that we periodically ask the following questions. Are you receiving benefits under the [place] Lung Benefits Act (BL)? No Was the illness/injury due to a work-related accident/condition? No Are you receiving treatment for an injury or illness covered under no-fault (and/or medical-paymentcoverage) including premises or automobile? No Are you receiving treatment for an injury, or illness, for which another republican may be liable? No Are you entitled to Medicare based on: Age? Yes End-stage renal disease (ESRD)? No Patient-Entered Msp: Lmi-Pvfhsnuctg-Bekt Primary Branch Calculation (range: 0 - 5) 1 Do you have group health plan (GHP) coverage based on your own current employment or the employmentof your spouse? No [place] Sleepiness Scale Question 07/25/2024 10:20 AM EST - Filed by Patient What is the chance you will doze off in the following situation? Sitting and reading Slight chance of dozing Watching TV Slight chance of dozing Sitting inactive in a public place, such as a theater or meeting No chance of dozing As a passenger in [...] of dozing Score (range: 0 - 24) 7 Travel Screening Question 07/29/2024 9:43 AM EST - Filed by Patient Do you have any of the following new or worsening symptoms? Shortness of breath Have you recently been in contact with someone who was sick? No / Unsure CPAP Compliance: Report date: 07/24/24 % total days used: 100% % days used > 4 hours: 100% Average hours per day used: 7h 12m Large leak: 15 min AHI: 5.9 /hr Mean pressure: 7.9 cmH2O 90%ile pressure: 11 cmH2O Pressure settin-11 cmH2O Equipment: DME Provider is [employer] Uses a [employer] auto. Additional changes in health in the interim of care: He had a bad pneumonia last year He has a protruding varicose vein, planning for surgery for this. Patient Active Problem List Diagnosis H/O Hodgkin's lymphoma Acquired hypothyroidism Coronary artery disease involving [place] coronary artery of [place] heart without angina pectoris Nonrheumatic mitral valve stenosis Esophageal dysmotility JULIUS (obstructive sleep apnea) ILD (interstitial lung disease) (HCC) Raynaud's disease without gangrene Hx of melanoma of skin PHT (pulmonary hypertension) (HCC) Protein-calorie malnutrition (HCC) Neuromuscular disorder (HCC) Senile osteoporosis BMI less than 19,adult S/P TAVR (transcatheter aortic valve replacement) 1st degree AV block Paroxysmal atrial fibrillation (HCC) Polymyositis ([facility]) Hospice care patient Hemorrhage of varicose veins of left lower extremity Spider veins Varicose veins of leg with complications Venous insufficiency 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 Current Outpatient Medications Medication Sig Dispense Refill Ipratropium-Albuterol 0.5-2.5 (3) MG/3ML Inhalation Solution (Duoneb) Inhale 3 mL by mouth every 6 hours as needed. Levothyroxine Sodium 75 MCG Oral Tablet (Levoxyl) TAKE 1 TABLET BY MOUTH EVERY DAY IN THE MORNING (AT LEAST 30 MIN PRIOR TO BREAKFAST OR OTHER MEDS) 90 Tablet 3 Sotalol HCl 80 MG Oral Tablet (Betapace) One half tablet by mouth two times per day 90 Tablet 3 NATURAL SUPPLEMENT Take 1 Tablet by mouth in the morning. Herbal supplement for lungs. Saccharomyces boulardii 250 MG Oral Capsule (Florastor) Take 1 Capsule by mouth in the morning. Vitamin B-12 1000 MCG Sublingual Tablet Sublingual Place 1 Tablet under the tongue in the morning. Apixaban 5 MG Oral Tablet (Eliquis) Take 1 Tablet by mouth in the morning and 1 Tablet before bedtime. 60 Tablet 11 Atorvastatin Calcium 20 MG Oral Tablet (Lipitor) Take 1 Tablet by mouth in the morning. 90 Tablet 3 Nac 600 600 MG Oral Capsule (Acetylcysteine) Take 1 Capsule by mouth in the morning and 1 Capsule before bedtime. Ocuvite Adult Formula Oral Capsule Take by mouth. Turmeric Curcumin Oral Capsule Take by mouth 1 Capsule daily . CPAP every night at bedtime . Auto 5-20 cm Cholecalciferol 25 MCG (1000 UT) Oral Capsule Take 1 Capsule by mouth in the morning. Sodium Fluoride 5000 PPM 1.1 % Dental Gel Tavaborole 5 % External Solution APPLY TO AFFECTED TOENAILS ONCE A DAY FOR 6 MONTHS Comirnaty 30 MCG/0.3ML Intramuscular Suspension Prefilled Syringe Inject into a large muscle. (Patient not taking: Reported on 05/26/2024) 0.3 mL 0 Amoxicillin 500 MG Oral Capsule (Amoxil) Take 4 capsules 1 hour prior to any dental work 4 Capsule 4 No current facility-administered medications for this visit. PHYSICAL EXAM: Filed Vitals: 07/29/24 0946 BP: 120/60 Pulse: 83 Resp: 16 Temp: 35.5 C (95.9 F) TempSrc: Tympanic SpO2: 85% Weight: 68 kg (150 lb) Height: 1.829 m (6') Body mass index is 20.34 kg/m. General: alert, no acute distress Head: NC/AT Lungs: normal respiratory effort Neuro: speech clear and appropriate ASSESSMENT/PLAN: Obstructive sleep apnea - excellent adherence; encourage continued use of CPAP with all sleep - good efficacy of therapy; continue PAP at current setting 6-11 cmH2O - replacement CPAP ordered (his current device is now 4 yo). - I suspect the mouth leak is contributing to worse sleep in the past few nights and contributing to the mildly elevated residual AHI - add chin strap due to mouth leak. Discussed other options to prevent mouth leak (see AVS). - DME: [employer] - Routine cleaning and change of supplies as needed. - Continue to avoid driving when feeling sleepy/drowsy. Nocturnal hypoxemia - agree with adding nocturnal supplemental oxygen via CPAP, as per recent order by Clerk Operator. Patient was asked to let me know if he is notified that a CPAP titration study is required for insurance purposes (for the oxygen to be covered). Follow-up with Sleep Medicine in 1 year (or sooner PRN). Cara Brantley DO documented in this encounter Nursing Notes * Shala Brown LPN - 07/29/2024 9:50 AM EST Chief Complaint Patient presents with Follow Up Sleep Apnea Cpap DME: [employer] Patient-Entered [facility] 2019 Msp: Part I And Employment Question 07/23/2024 9:18 AM EST - Filed by Patient Are you currently employed? No, Retired Date of fci: 04/18/2018 Do you have a spouse who is currently employed? No, Retired Date of fci: 03/18/2018 Medicare requires that we periodically ask the following questions. Are you receiving benefits under the Black Lung Benefits Act (BL)? No Was the illness/injury due to a work-related accident/condition? No Are you receiving treatment for an injury or illness covered under no-fault (and/or medical-paymentcoverage) including premises or automobile? No Are you receiving treatment for an injury, or illness, for which another republican may be liable? No Are you entitled to Medicare based on: Age? Yes End-stage renal disease (ESRD)? No Patient-Entered Msp: Vdq-Nfmtetapvt-Lvvo Primary Branch Calculation (range: 0 - 5) 1 Do you have group health plan (GHP) coverage based on your own current employment or the employmentof your spouse? No [place] Sleepiness Scale Question 07/25/2024 10:20 AM EST - Filed by Patient What is the chance you will doze off in the following situation? Sitting and reading Slight chance of dozing Watching TV Slight chance of dozing Sitting inactive in a public place, such as a theater or meeting No chance of dozing As a passenger in [...] of dozing Score (range: 0 - 24) 7 Travel Screening Question 07/29/2024 9:43 AM EST - Filed by Patient Do you have any of the following new or worsening symptoms? Shortness of breath Have you recently been in contact with someone who was sick? No / Unsure documented in this encounter Plan of Treatment Upcoming Encounters Date Type Department Care Team (Latest Contact Info) Description 08/15/2024 11:30 AM EST Office Visit Cardiology, [facility] [address] [place] [address] Mike Graves, [address] [address] 08/18/2024 1:32 PM EST Hospital Encounter OR [facility], OPERATING ROOM [facility] [address] [place] [facility] [phone] German Tay MD [address] [facility], [place] [id number] 08/18/2024 1:32 PM EST - 08/18/2024 3:35 PM EST Surgery OR [facility], OPERATING ROOM [facility] [address] [place] [facility] [phone] German Tay MD [address] [facility], [place] [id number] STAB PHLEBECTOMY VARICOSE VEINS MORE THAN 20, ONE EXTREMITY 08/20/2024 1:00 PM EST Imaging Vascular Lab, [facility] 2nd Floor, [place] [address] [facility] [place] [address] 08/20/2024 2:10 PM EST Office Visit Vascular Surgery, [facility] [address] [facility] [place] [address] Yandel Rizo MD [address] [place], [place] [id number] 09/23/2024 1:20 PM EDT Office Visit Family Practice [facility] [address] [facility] [place] [address] Dewayne Pena MD [address] [place] [address] 10/06/2024 2:20 PM EDT Office Visit Rheumatology [facility] [address] [place] [phone] Timo Guzman MD [facility] [place] [address] 05/27/2025 1:20 PM EST Office Visit [address] [phone] Jonnathan House PA-C [address] [place] [address] [place] [address] Scheduled Procedures Name Priority Associated Diagnoses Date/Ti [...] this encounter Medical Devices Implanted Type Area Gas Meter Checker Device Identifier Shelf Expiration Date Model / Serial / Lot Cath Thermodilution 6fr - [id number] Implanted:Qty: 1 on 03/07/2023 by Armando Beltran MD at [facility] [employer] KRISTYN [id number] 10/10/2024 [id number] / / [id number] Valve Aortic Transcath Fx 34mm - [id number] Implanted:Qty: 1 on 05/03/2023 by Armando Beltran MD at [facility] [employer] [id number] 08/10/2024 EVOLUTFX- 34 / [id number] / [id number] documented as of this encounter Visit Diagnoses Diagnosis 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- Primary 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 Varicose veins of leg with complications Varicose veins of lower extremities with other complications JULIUS (obstructive sleep apnea)- Primary Obstructive sleep apnea (adult) (pediatric) ILD (interstitial lung disease) (HCC) Postinflammatory pulmonary fibrosis Nocturnal hypoxemia Hypoxemia Varicose veins of leg with complications Varicose veins of lower extremities with other complications 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 documented in this encounter Advance Directives Documents on File Type Date Recorded Patient Child Welfare Worker Expl anation POLST 03/06/2022 [place] OR [...] Advance Directives occurred with: Patient Care Teams Forest Products Teacher Relationship Specialty Start Date End Date Dewayne Pena MD [address] [facility] [place] [address] PCP - General Family Medicine 04/30/23 documented as of this encounter
--- OUTSIDE RECORDS SUMMARY | 2024-08-30 14:23 | External Medical Summary | Summary of Care ---
Author Name Unknown Organization [facility] Address [address] [place] [address] Phone [phone] Care Team Providers Care Bridge Toll Collector Name Role Phone Dewayne Pena MD Primary Care Provider [phone] Reason for Visit * Reason Comments Follow Up Sleep Apnea Encounter Details Date Type Department Care Team (Late st Contact Info) Description 07/29/2024 10:00 AM EST Office Visit Sleep Disorders Ctr [facility] [address] [facility] [place] [address] Cara Brantley, [address] [facility] [place] [address] JULIUS (obstructive sleep apnea)*; ILD (interstitial lung [...] 2013, Depth unknown, no SLN, Location R muslim Raynaud's disease without gangrene 06/02/2019 Esophageal dysmotility 05/20/2019 JULIUS (obstructive sleep apnea) 05/20/2019 ILD (interstitial lung disease) 05/20/2019 Coronary artery disease invo lving [place] coronary artery of [place] heart without angina pectoris 03/24/2019 Nonrheumatic mitral [...] 2013, Depth unknown, no SLN, Location R muslim (still no path in chart, pt confirmed that he had surgery for melanoma at that site and for BCC prior, see below) BCC R forehead 2008 ([facility]) Prediabetes 02/28/2021 02/01/2023 Overview: Per Prediabetes [...] head to hold the chin up (your [employer] can providethis) 2) Mouth tape SomniFix, PAPAllenMD, [...] to 6-11 cwp. Using CPAP 6-11 cmH2O. Inbound Sales Manager had him do a nocturnal oximetry: Nocturnal [...] nose or dry mouth: some Aerophagia: no [place] Sleepiness Scale: 7 Patient-Entered [facility] 2019 Msp: Part I And Employment Question [...] End-stage renal disease (ESRD)? No Patient-Entered Msp: Qwm-Mbzmebecwk-Msql Primary Branch Calculation (range: 0 - 5) 1 Do you have group health plan (GHP) coverage based on your own current employment or the employmentof your spouse? No [place] Sleepiness Scale Question 07/25/2024 10:20 AM EST [...] Equipment: DME Provider is [employer] Uses a [employer] auto. Additional changes in health in the interim of care: He had a bad pneumonia last year He has a protruding varicose vein, planning for surgery for this. Patient Active Problem List Diagnosis H/O Hodgkin's lymphoma Acquired hypothyroidism Coronary artery disease involving [place] coronary artery of [place] heart without angina pectoris Nonrheumatic mitral valve stenosis Esophageal dysmotility JULIUS (obstructive sleep apnea) ILD (interstitial lung disease) (HCC) Raynaud's disease without gangrene Hx of melanoma of skin PHT (pulmonary hypertension) (HCC) Protein-calorie malnutrition (HCC) Neuromuscular disorder (HCC) Senile osteoporosis BMI less than 19,adult S/P TAVR (transcatheter aortic valve replacement) 1st degree AV block Paroxysmal atrial fibrillation (HCC) Polymyositis ([facility]) Hospice care patient Hemorrhage of varicose [...] via CPAP, as per recent order by Inbound Sales Manager. Patient was asked to let me know [...] Up Sleep Apnea Cpap DME: [employer] Patient-Entered [facility] 2019 Msp: Part I And Employment Question [...] End-stage renal disease (ESRD)? No Patient-Entered Msp: Prc-Bzurgkqbvg-Xqkp Primary Branch Calculation (range: 0 - 5) 1 Do you have group health plan (GHP) coverage based on your own current employment or the employmentof your spouse? No [place] Sleepiness Scale Question 07/25/2024 10:20 AM EST [...] 08/15/2024 11:30 AM EST Office Visit Cardiology, [facility] [address] [place] [address] Mike Graves, [address] [address] 08/18/2024 1:32 PM EST Hospital Encounter [facility], OPERATING ROOM [facility] [address] [place] [facility] [place] [phone] German Tay MD [address] [facility], [place] [id number] 08/18/2024 1:32 PM EST - 08/18/2024 3:35 PM EST Surgery OR [facility], OPERATING ROOM [facility] [address] [facility] [place] [phone] German Tay MD [address] [facility], [place] [phone] STAB PHLEBECTOMY VARICOSE VEINS MORE THAN 20, ONE EXTREMITY 08/20/2024 1:00 PM EST Imaging Vascular Lab, [facility] 2nd Floor, [place] [address] [facility] [place] [address] 08/20/2024 2:10 PM EST Office Visit Vascular Surgery, [facility] 132 [facility] [place] [address] Yandel Rizo MD [address] [place], [place] [phone] 09/23/2024 1:20 PM EDT Office Visit Family Practice [facility] [address] [facility] [place] [address] Dewayne Pena MD [address] [place] [address] 10/06/2024 2:20 PM EDT Office Visit Rheumatology [facility] [address] [place] [phone] Timo Guzman MD [facility] [place] [address] 05/27/2025 1:20 PM EST Office Visit [address] [phone] Jonnathan House PA-C [address] [place] [address] [place] [address] Scheduled Procedures Name Priority Associated Diagnoses Date/Ti [...] this encounter Medical Devices Implanted Type Area Effervescent Salts Compounder Device Identifier Shelf Expiration Date Model / Serial / Lot Cath Thermodilution 6fr - [id number] Implanted:Qty: 1 on 03/07/2023 by Armando Beltran MD at [facility] [employer] [id number] 10/10/2024 [id number] / / [id number] Valve Aortic Transcath Fx 34mm - [id number] Implanted:Qty: 1 on 05/03/2023 by Armando Beltran MD at [facility] [employer] [id number] 08/10/2024 EVOLUTFX- 34 / [id number] / [id number] documented as of this encounter Visit Diagnoses [...] Documents on File Type Date Recorded Patient Part Time Expl anation POLST 03/06/2022 [place] OR DERS [...] Advance Directives occurred with: Patient Care Teams Bridge Toll Collector Relationship Specialty Start Date End Date Dewayne Pena MD [address] [facility] [place] [address] PCP - General Family Medicine 04/30/23 documented as of this encounter
--- OUTSIDE RECORDS SUMMARY | 2024-08-30 14:23 | External Medical Summary ---
Author Name Unknown Address Unknown Organization [id number]:LABORATORY [facility] [place] [address] [place] [id number] Laboratory Report Ordering Provider Test Date Status RADHA WONG 07/29/2024 10:29:41 Final Observation Date Value Abnormality Reference (Units ) Status BUN 07/29/2024 10:29:41 14 6-20 (mg/dL) Final Creatinine 07/29/2024 10:29:41 0.7 0.6-1.2 (mg/dL) Final Glomerular filtration rate/1.73 sq M.predicted [Volume Rate/Area] in Serum, Plasma or Blood by Creatinine-based formula (CKD-EPI) 07/29/2024 10:29:41 >90 >=60 (mL/min) Final eGFR is calculated based on the CKD-EPI 2020 equation. Sodium 07/29/2024 10:29:41 137 135-146 (m mol/L) Final Potassium 07/29/2024 10:29:41 4.5 3.5-5.1 (m mol/L) Final Cl 07/29/2024 10:29:41 94 Below low normal 98- 107 (mmol/L) Final CO2 07/29/2024 10:29:41 36 Above high normal 22 -32 (mmol/L) Final Anion gap 07/29/2024 10:29:41 7 7-15 (mmol /L) Final Glucose 07/29/2024 10:29:41 105 70-120 (mg /dL) Final Calcium 07/29/2024 10:29:41 9.9 8.4-10.2 ( mg/dL) Final Performing Location [facility]ORY [facility] [place] [address] [place] [address]
--- OUTSIDE RECORDS SUMMARY | 2024-08-30 14:23 | External Medical Summary ---
Author Name Unknown Address Unknown Organization [id number]:LABORATORY [facility] [place] [address] [place] [address] Laboratory Report Ordering Provider Test Date Status RADHA WONG 07/29/2024 10:29:41 Final Observation Date Value Abnormality Reference (Units ) Status WBC, Total 07/29/2024 10:29:41 5.97 4.00-10.8 0 (K/uL) Final RBC 07/29/2024 10:29:41 3.09 4.50-5.25 (M/uL) Final Hemoglobin 07/29/2024 10:29:41 9.8 Below low normal 14 .0-16.8 (g/dL) Final HCT 07/29/2024 10:29:41 30.8 Below low normal 40. 0-48.4 (%) Final MCV 07/29/2024 10:29:41 99.7 82.0-99.5 (fL) Final MCH 07/29/2024 10:29:41 31.7 27.0-34.0 (pg) Final MCHC 07/29/2024 10:29:41 31.8 32.0-36.0 (g/dL) Final RDW 07/29/2024 10:29:41 18.0 11.5-15.5 (%) Final Platelets 07/29/2024 10:29:41 250 140-400 (K /uL) Final MPV 07/29/2024 10:29:41 12.2 6.6-11.1 ( fL) Final Performing Location LABORATORY [facility] [place] [address] [place] [address]
--- OUTSIDE RECORDS SUMMARY | 2024-08-30 14:23 | External Medical Summary | Summary of Care ---
Author Name Unknown Organization [facility] Address [address] [place] [address] Phone [phone] Care Team Providers Care Tipple Oiler Name Role Phone Dewayne Pena MD Primary Care Provider [phone] Reason for Visit * Reason Onset Date Comments Advice 07/24/2024 Schedule surgery Encounter Details Date Type Department Care Team (Late st Contact Info) Description 07/24/2024 Telephone Vascular Surg [facility] [address] [place] [address] Services, Scheduling [address] [place] [address] Advice (Schedule surgery ) Allergies No known active allergiesdocumented as [...] 2013, Depth unknown, no SLN, Location R taoism Raynaud's disease without gangrene 06/02/2019 Esophageal dysmotility 05/20/2019 JULIUS (obstructive sleep apnea) 05/20/2019 ILD (interstitial lung disease) 05/20/2019 Coronary artery disease invo lving [place] coronary artery of [place] heart without angina pectoris 03/24/2019 Nonrheumatic mitral [...] 2013, Depth unknown, no SLN, Location R taoism (still no path in chart, pt confirmed that he had surgery for melanoma at that site and for BCC prior, see below) BCC R forehead 2008 ([facility]) Prediabetes 02/28/2021 02/01/2023 Overview: Per Prediabetes [...] CG/0.3 mL, 12 YRS AND ABOVE, IM (Chevia-Comirnat) 04/10/2024,03/27/2023 COVID-19, mRNA, LNP-s, PF, B ooster, [...] Telephone Encounter - Matt Medellin OSA - 07/24/2024 2:33 PM EST Surgery scheduled for 08/18 and post op scheduled at , called patient with appointment details Pre-op letter mailed to patient's home * Telephone Encounter - Saurav Mariscal CRNP - 07/24/2024 12:25 PM EST Matt, Telephone call to Mr. Daley. Will arrange for surgery for 08/18/2025. Pre op letter completed and to be mailed to patient. Case created and orders placed. Will need PATs with ekg and labwork at [facility]. Also needs return clinic visit at [facility] on 08/20/2024 with LLE venous duplex. Felicitas Mg * Telephone Encounter - Michael Montes OSA - 07/24/2024 10:33 AM EST Pt ret call. Per Matt she needs to speak with Dr Tay and will call pt back [phone] JULIUS Fuller * Telephone Encounter - Sarabjit Velasquez CRNP - 07/24/2024 10:06 AM EST Consent was obtained 07/24/24. Please work with Dr. Tay to identify surgery date Needs scheduled for L GSV ablation/stabs. Needs scheduled for POD#2 or #3 venous duplex ([place]). ELOY Page 07/24/2024 10:08 AM * Telephone Encounter - Shala Hansen OSA - 07/24/2024 9:53 AM EST Patient called to schedule surgery please call him to proceed. Thanks Shala Hansen JULIUS documented in this encounter Plan of Treatment Upcoming Encounters Date Type Department Care Team (Latest Contact Info) Description 07/29/2024 10:00 AM EST Office Visit Sleep Disorders Ctr [facility] [address] [place] [address] Cara Brantley, DO [address] [place] [address] 08/15/2024 11:30 AM EST Office Visit Cardiology, [facility] [address] [place] [address] Mike Graves, DO [address] [place] [address] 08/18/2024 1:32 PM EST Hospital Encounter OR [facility], OPERATING ROOM [facility] [address] [place] [phone] German Tay MD [address] [place] [address] 08/18/2024 1:32 PM EST - 08/18/2024 3:35 PM EST Surgery OR [facility], OPERATING ROOM [facility], [facility] [address] [place] [phone] German Tay MD [address] [place] [address] STAB PHLEBECTOMY VARICOSE VEINS MORE THAN 20, ONE EXTREMITY 08/20/2024 1:00 PM EST Imaging Vascular Lab, [facility] 2nd Floor, [place] [address] [place] [address] 08/20/2024 2:10 PM EST Office Visit Vascular Surgery, [facility] [address] [place] [address] Yandel Rizo MD [address] [place] [address] 09/23/2024 1:20 PM EDT Office Visit Family Practice [facility] [address] [place] [address] Dewayne Pena MD 132 [place] [address] 10/06/2024 2:20 PM EDT Office Visit Rheumatology [facility] 132 [facility] [place] [phone] Timo Guzman MD [facility] [place] [address] 05/27/2025 1:20 PM EST Office Visit Dermatology [facility] [address] [place] [address] Jonnathan House PA-C [address] [place] [address] [phone] Scheduled Procedures Name Priority Associated Diagnoses Date/Ti [...] this encounter Medical Devices Implanted Type Area Form Block Maker Device Identifier Shelf Expiration Date Model / Serial / Lot Cath Thermodilution 6fr - [id number] Implanted:Qty: 1 on 03/07/2023 by Armando Beltran MD at [facility] [employer] KRISTYN [id number] 10/10/2024 [id number] / / [id number] Valve Aortic Transcath Fx 34mm - [id number] Implanted:Qty: 1 on 05/03/2023 by Armando Beltran MD at 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
--- OUTSIDE RECORDS SUMMARY | 2024-08-30 14:23 | External Medical Summary | Summary of Care ---
Author Name Unknown Organization [facility] Address [address] [place] [address] Phone [phone] Care Team Providers Care Receiver Dispatcher Name Role Phone Dewayne Pena MD Primary Care Provider [phone] Reason for Visit * Reason Onset Date Comments Test Results 07/29/2024 Nocturnal pulse ox Encounter Details Date Type Department Care Team (Late st Contact Info) Description 07/29/2024 Telephone Pulmonary Medicine, [facility] 132 [facility] [place] [address] Juan Pablo Marsh MD [address] [facility] [id number] Test Results (Nocturnal pulse ox) Allergies No known active allergiesdocumented as of [...] Depth unknown, no SLN, Location R holiness Raynaud's disease without gangrene 06/02/2019 Esophageal dysmotility 05/20/2019 JULIUS (obstructive sleep apnea) 05/20/2019 ILD (interstitial lung disease) 05/20/2019 Coronary artery disease invo lving [place] coronary artery of [place] heart without angina pectoris 03/24/2019 Nonrheumatic mitral [...] prior, see below) BCC R forehead 2008 ([facility]) Prediabetes 02/28/2021 02/01/2023 Overview: Per [...] encounter Miscellaneous Notes * Telephone Encounter - Kimmy Gutierrez LPN - 07/29/2024 11:22 AM EST Patient was here this morning for a sleep return appt with Dr. Brantely. Shala reviewed the results with the patient and he is aware of the need for nighttime oxygen use. Patient states he is getting anew CPAP ordered and is changing DME companies from [employer] to [facility]. Both orders will need placed. ----- Message from Juan Pablo Marsh MD sent at 07/28/2024 7:59 PM EST ----- Your recent nocturnal pulse oximetry study showed episodes of significant drops in oxygen levels through the night WHILE BEING ON CPAP THERAPY ALONE. We would recommend use of oxygen therapy while sleeping at night. Prescription will be submitted to a [employer], who will be contacting you for set up home oxygen for nighttime use. Please contact the office with any additional questions. Sincerely Dr. Marsh documented in this encounter Plan of Treatment Upcoming Encounters Date Type Department Care Team (Latest Contact Info) Description 08/15/2024 11:30 AM EST Office Visit Cardiology, [facility] [address] [place] [address] Mike Graves, [address] [place] [address] 08/18/2024 1:32 PM EST Hospital Encounter OR [facility], OPERATING ROOM [facility] [address] [place] [facility] [place] [phone] German Tay MD [address] [place] [address] 08/18/2024 1:32 PM EST - 08/18/2024 3:35 PM EST Surgery OR [facility], OPERATING ROOM [facility] [address] [place] [facility] [place] [phone] German Tay MD [address] [place], [place] [phone] STAB PHLEBECTOMY VARICOSE VEINS MORE THAN 20, ONE EXTREMITY 08/20/2024 1:00 PM EST Imaging [facility] [address] [place] [address] 08/20/2024 2:10 PM EST Office Visit Vascular Surgery, [facility] [address] [place] [address] Yandel Rizo MD [address] [place], [place] [id number] 09/23/2024 1:20 PM EDT Office Visit Family Practice [facility] [address] [place] [address] Dewayne Pena MD [address] [place] [address] 10/06/2024 2:20 PM EDT Office Visit Rheumatology [facility] [address] [place] [phone] Timo Guzman MD [address] [place] [address], [place] [address] 05/27/2025 1:20 PM EST Office Visit Dermatology [facility] [address] [place] [address] Jonnathan House PA-C [address] [place] [phone] Scheduled Procedures Name Priority Associated Diagnoses Date/Ti [...] this encounter Medical Devices Implanted Type Area Tongue Stitcher Device Identifier Shelf Expiration Date Model / Serial / Lot Cath Thermodilution 6fr - [id number] Implanted:Qty: 1 on 03/07/2023 by Armando Beltran MD at [facility] [employer] KRISTYN [id number] 10/10/2024 [id number] / / [id number] Valve Aortic Transcath Fx 34mm - [id number] Implanted:Qty: 1 on 05/03/2023 by Armando Beltran MD at [facility] [employer] [id number] 08/10/2024 EVOLUTFX- 34 / [id number] / [id number] documented as of this encounter Advance Directives Documents on File Type Date Recorded 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
--- OUTSIDE RECORDS SUMMARY | 2024-08-30 14:23 | External Medical Summary | Summary of Care ---
Author Name Unknown Organization [facility] Address [address] [place] [address] Phone [phone] Care Team Providers Care Liquor Establishment Manager Name Role Phone Dewayne ePna MD Primary Care Provider [phone] Reason for Visit * Reason Comments Follow Up Encounter Details Date Type Department Care Team (Latest Contact Info) Description 07/23/2024 12:30 PM EST Office Visit Vascular Surgery, [facility] 132 [facility] [place] [address] German Tay MD [address] [place] [address] 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*; 1st degree AV block; Coronary artery disease involving [place] coronary artery of [place] heart without angina pectoris; H/O Hodgkin's lymphoma; [...] Depth unknown, no SLN, Location R nondenominational Raynaud's disease without gangrene 06/02/2019 Esophageal dysmotility 05/20/2019 JULIUS (obstructive sleep apnea) 05/20/2019 ILD (interstitial lung disease) 05/20/2019 Coronary artery disease invo lving [place] coronary artery of [place] heart without angina pectoris 03/24/2019 Nonrheumatic mitral [...] prior, see below) BCC R forehead 2009 ([facility]) Prediabetes 02/28/2021 02/01/2023 Overview: Per Prediabetes [...] need PATs with ekg and labwork at [facility]. Also needs return clinic visit at [facility] on 08/20/2024 with LLE venous duplex. [...] lymphoma Acquired hypothyroidism Coronary artery disease involving sh[place]nee coronary artery of [place] heart without angina pectoris Nonrheumatic mitral valve stenosis Esophageal dysmotility JULIUS (obstructive sleep apnea) ILD (interstitial lung disease) ([facility]) Raynaud's disease without gangrene Hx of melanoma [...] (HCC) Cardiac arrhythmia Coronary artery disease involving shawnee coronary artery of sh[place] heart without angina pectoris 03/24/2019 Hodgkin's disease (HCC) 1977 s/p radiation Hx of melanoma of skin 03/24/2021 Hx MM date 2013, Depth unknown, no SLN, Location R nondenominational ILD (interstitial lung disease) (HCC) Moderate aortic [...] [facility] EGD, FLEXIBLE, DIAGNOSTIC 05/21/2019 reflux / [facility] MUSCLE BIOPSY, DEEP Left 04/11/2022 BIOPSY MUSCLE DEEP performed by Sadiq Kennedy MD at OR [facility] REMOVAL OF SPLEEN, TOTAL 1978 Due to Hodgkin's disease REPLACE AORTIC VALVE, PERCUTANEOUS FEMORAL Bilateral 05/03/2023 REPLACE AORTIC VALVE, PERCUTANEOUS FEMORAL performed by Armando Beltran MD at [facility] REPLACE AORTIC VALVE, PERCUTANEOUS FEMORAL Bilateral 05/03/2023 REPLACE AORTIC VALVE, PERCUTANEOUS FEMORAL performed by Cisco Herrera MD, PhD at [facility] TOTAL HIP REPLACEMENT & PROSTHESIS Left 11/28/2021 Family History Problem Relation Name Age of Onset Breast Cancer Mother Other (Natural causes) Mother age 98 Lung Disorder Father 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 There is a small [id number] interatrial shunt per color Doppler interrogation. Findings [...] Results Component Value Date/Time [facility] (H) 06/02/2021 11:52 AM The above [...] as the interventional and noninterventional treatment options [id number] - 30 mm knee high compression stockings, [...] examined with Sp Tay MD. Louie White, ELOY Section of Vascular [place] [address] [phone] I have reviewed the advanced practitioner's documentation [...] venous thrombosis or other blood clot requiring penitentiary anticoagulation. I have also discussed other less common risks which include, but are not limited to, acute and/or chronic pain, swelling, scarring, skin/nerve injury, bleeding, infection, and varicose vein/symptom recurrence after the procedure. The patient understands and wishes to proceed. The [facility] Vein Surgery Patient Education booklet was given to the patient. German Tay MD Vascular Surgeon Department of Vascular Surgery [facility] documented in this encounter Nursing Notes * Kimmie Wilkinson CMA - 07/23/2024 12:40 PM EST Reviewed the option of transferring scripts to [facility] pharmacy with patient and / or family. [...] AM EST Office Visit Sleep Disorders Ctr [facility] [address] [place] [phone] Cara Brantley, DO [address] [place] [address] 07/29/2024 11:10 AM EST Laboratory Laboratory, [facility] [address] [place] [phone] [facility] [place] [address] [place] [address] 08/15/2024 11:30 AM EST Office Visit Cardiology, [facility] [address] [place] [address] Mike Graves, DO [address] [place] [address] 08/18/2024 1:32 PM EST Hospital Encounter [facility]PER[facility] ROOM [facility] [address] [place] [phone] German Tay MD [address] [place] [address] 08/18/2024 1:32 PM EST - 08/18/2024 3:35 PM EST Surgery OR [facility] [address] [facility] [place] [address] German Tay MD [address] [place] [address] STAB PHLEBECTOMY VARICOSE VEINS MORE THAN 20, ONE EXTREMITY 08/20/2024 1:00 PM EST Imaging Vascular Lab, [facility] 2nd Floor, [place] [address] [place] [address] 08/20/2024 2:10 PM EST Office Visit Vascular Surgery, [facility] [address] [place] [address] Yandel Rizo MD [address] [place] [address] 09/23/2024 1:20 PM EDT Office Visit Family Practice [facility] [address] [place] [address] Dewayne Pena MD 132 [facility] [place] [place] [address] 10/06/2024 2:20 PM EDT Office Visit Rheumatology [facility] [address] [place] [phone] Timo Guzman MD [facility] [place] [address] 05/27/2025 1:20 PM EST Office Visit Dermatology [facility] [address] [place] [phone] Jonnathan House PA-C [address] [place] [address] Scheduled Orders Name Type Priority Associated Diagnoses [...] encounter Medical Devices Implanted Type Area Manager Agency Device Identifier Shelf Expiration Date Model / Serial / Lot Cath Thermodilution 6fr - [id number] Implanted:Qty: 1 on 03/07/2023 by Armando Beltran MD at [facility] [employer] KRISTYN [id number] 10/10/2024 [id number] / / [id number] Valve Aortic Transcath Fx 34mm - [id number] Implanted:Qty: 1 on 05/03/2023 by Armando Beltran MD at [facility] [employer] [id number] 08/10/2024 EVOLUTFX- 34 / [id number] / [id number] documented as of this encounter Visit Diagnoses Diagnosis 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- Primary 1st degree AV block First degree atrioventricular block Coronary artery disease involving shaw[place] coronary artery of [place] heart without angina pectoris H/O Hodgkin's lymphoma [...] on File Type Date Recorded 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
--- OUTSIDE RECORDS SUMMARY | 2024-08-30 14:23 | External Medical Summary | Summary of Care ---
Author Name Unknown Organization [facility] Address [address] [place] [address] Phone [phone] Care Team Providers Care Gift Consultant Name Role Phone Dewayne Pena MD Primary Care Provider [phone] Reason for Visit * Reason Onset Date Comments Advice 07/24/2024 Schedule surgery Encounter Details Date Type Department Care Team (Late st Contact Info) Description 07/24/2024 Telephone Vascular Surg [facility] [address] [place] [address] Services, Scheduling [address] [place] [address] Advice (Schedule surgery ) Allergies No known [...] Depth unknown, no SLN, Location R sabianist Raynaud's disease without gangrene 06/02/2019 Esophageal dysmotility 05/20/2019 JULIUS (obstructive sleep apnea) 05/20/2019 ILD (interstitial lung disease) 05/20/2019 Coronary artery disease invo lving [place] coronary artery of [place] heart without angina pectoris 03/24/2019 Nonrheumatic mitral [...] CG/0.3 mL, 12 YRS AND ABOVE, IM ([employer]) 04/10/2024,03/27/2023 COVID-19, mRNA, LNP-s, PF, B ooster, [...] need PATs with ekg and labwork at [facility]. Also needs return clinic visit at [facility] on 08/20/2024 with LLE venous duplex. Felicitas Mg * Telephone Encounter - Michael Montes OSA - 07/24/2024 10:33 AM EST Pt ret call. Per Matt she needs to speak with Dr Tay and will call pt back [phone] JULIUS Fuller * Telephone Encounter - Sarabjit Velasquez CRNP - 07/24/2024 10:06 AM EST Consent was obtained 07/24/24. Please work with Dr. Tay to identify surgery date Needs scheduled for L GSV ablation/stabs. Needs scheduled for POD#2 or #3 venous duplex ([facility]). ELOY Page 07/24/2024 10:08 AM * Telephone Encounter - Tyrone JULIUS Last - 07/24/2024 9:53 AM EST Patient called to schedule surgery please call him to proceed. Thanks Shala Hansen JULIUS documented in this encounter Plan of Treatment Upcoming Encounters Date Type Department Care Team (Latest Contact Info) Description 07/29/2024 10:00 AM EST Office Visit Sleep Disorders Ctr [facility] [address] [place] [phone] Cara Brantley, DO [address] [place] [address] 07/29/2024 11:10 AM EST Laboratory Laboratory, [facility] [place] [phone] [facility] [address] [place] [address] 08/15/2024 11:30 AM EST Office Visit Cardiology, [facility] [address] [place] [address] Mike Graves, DO [address] [place] [address] 08/18/2024 1:32 PM EST Hospital Encounter [place] [facility] [address] [place] [phone] German Tay MD [address] [place] [address] 08/18/2024 1:32 PM EST - 08/18/2024 3:35 PM EST Surgery [place] [facility] [address] [place] [address] German Tay MD [address] [place] [address] STAB PHLEBECTOMY VARICOSE VEINS MORE THAN 20, ONE EXTREMITY 08/20/2024 1:00 PM EST Imaging Vascular Lab, [facility] 2nd Floor, [place] [address] [place] [place] [address] 08/20/2024 2:10 PM EST Office Visit Vascular Surgery, [facility] 132 [place] [place] [address] Yandel Rizo MD [address] [place] [address] 09/23/2024 1:20 PM EDT Office Visit Family Practice [facility] [address] [place] [place] [address] Dewayne Pena MD [address] [place] [address] 10/06/2024 2:20 PM EDT Office Visit Rheumatology [facility] [place] [phone] Timo Guzman MD [facility] [place] [address] 05/27/2025 1:20 PM EST Office Visit Dermatology [facility] [address] [place] [phone] Jonnathan House PA-C [address] [place] [address] Scheduled Procedures Name Priority Associated [...] this encounter Medical Devices Implanted Type Area Girl Friday Device Identifier Shelf Expiration Date Model / Serial / Lot Cath Thermodilution 6fr - [id number] Implanted:Qty: 1 on 03/07/2023 by Armando Beltran MD at [facility] [employer] KRISTYN [id number] 10/10/2024 [id number] / / [id number] Valve Aortic Transcath Fx 34mm - [id number] Implanted:Qty: 1 on 05/03/2023 by Armando Beltran MD at [facility] [employer] [id number] 08/10/2024 EVOLUTFX- 34 / [id number] / [id number] documented as of this encounter Visit Diagnoses [...] Documents on File Type Date Recorded 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
--- OUTSIDE RECORDS SUMMARY | 2024-08-30 14:24 | External Medical Summary | Summary of Care ---
Author Name Unknown Organization [facility] Address [address] [place] [address] Phone [phone] Care Team Providers Care Wire Wrapper Machine Operator Name Role Phone Dewayne Pena MD Primary Care Provider [phone] Reason for Visit * Reason Comments Follow Up Encounter Details Date Type Department Care Team (Late st Contact Info) Description 07/23/2024 12:30 PM EST Office Visit Vascular Surgery, [facility] 132 [facility] [place] [address] German Tay MD [address] [place] [address] Varicose veins of leg with complications*; 1st degree AV block; Coronary artery disease involving [place] coronary artery of [place] heart without angina pectoris; H/O Hodgkin's lymphoma; Hemorrhage of varicose veins of left lower extremity; ILD (interstitial lung disease) (HCC); JULIUS (obstructive sleep apnea); Paroxysmal atrial fibrillation (HCC); S/P TAVR (transcatheter aortic valve replacement) Allergies No known active allergiesdocumented as of [...] Active Problems Problem Noted Date Diagnosed Date Hemorrhage of varicose veins of left lower [...] disease) 05/20/2019 Coronary artery disease invo lving [place] coronary artery of [place] heart without angina pectoris 03/24/2019 Nonrheumatic [...] prior, see below) BCC R forehead 2008 ([facility]) Prediabetes 02/28/2021 02/01/2023 Overview: Per Prediabetes [...] from the original note were not included. Date of Service: 07/23/2024 12:47 PM Guido [...] lymphoma Acquired hypothyroidism Coronary artery disease involving [place] coronary artery of [place] heart without angina pectoris Nonrheumatic mitral valve [...] (HCC) Cardiac arrhythmia Coronary artery disease involving [place] coronary artery of [place] heart without angina pectoris 03/24/2019 Hodgkin's disease [...] by Armando Beltran MD at [facility] EGD, FLEXIBLE, DIAGNOSTIC 05/21/2019 reflux / [facility] MUSCLE BIOPSY, DEEP Left 04/11/2022 BIOPSY MUSCLE DEEP performed by Sadiq Kennedy MD at OR [facility] REMOVAL OF SPLEEN, TOTAL 1978 Due to Hodgkin's disease REPLACE AORTIC VALVE, PERCUTANEOUS FEMORAL Bilateral 05/03/2023 REPLACE AORTIC VALVE, PERCUTANEOUS FEMORAL performed by Armando Beltran MD at [facility] REPLACE AORTIC VALVE, PERCUTANEOUS FEMORAL Bilateral 05/03/2023 REPLACE AORTIC VALVE, PERCUTANEOUS FEMORAL performed by Cisco Herrera MD, PhD at [facility] TOTAL HIP REPLACEMENT & PROSTHESIS Left 11/28/2021 Family History Problem Relation Name Age of Onset Breast Cancer Mother Other (Natural causes) Mother age 98 Lung Disorder Father Pulm fibrosis-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 There is a small [id number] interatrial shunt per color Doppler interrogation. Findings [...] - [facility] 6.1 (H) 06/02/2021 11:52 AM The above [...] as the interventional and noninterventional treatment options [id number] - 30 mm knee high compression stockings, [...] ELOY Section of Vascular [place] [address] [phone] I have reviewed the advanced practitioner's documentation [...] venous thrombosis or other blood clot requiring petroleum terminal plant operator anticoagulation. I have also discussed other less common risks which include, but are not limited to, acute and/or chronic pain, swelling, scarring, skin/nerve injury, bleeding, infection, and varicose vein/symptom recurrence after the procedure. The patient understands and wishes to proceed. The [facility] Vein Surgery Patient Education booklet was given to the patient. German Tay MD Vascular Surgeon Department of Vascular Surgery [facility] documented in this encounter Nursing Notes * Kimmie Wilkinson CMA - 07/23/2024 12:40 PM EST Reviewed the option of transferring scripts to [facility] pharmacy with patient and / or family. Patient stated no change in medications. Kimmie Wilkinson CMA documented in this encounter Plan of Treatment Upcoming Encounters Date Type Department Care Team (Late st Contact Info) Description 07/29/2024 10:00 AM EST Office Visit Sleep Disorders Ctr [facility] [address] [place] [phone] Cara Brantley, [address] [place] [address] 08/15/2024 11:30 AM EST Office Visit Cardiology, [facility] [address] [place] [address] Mike Graves, [address] [place] [address] 09/23/2024 1:20 PM EDT Office Visit Family Practice [facility] [address] [place] [address] Dewayne Pena MD [address] [place] [address] 10/06/2024 2:20 PM EDT Office Visit Rheumatology [facility] [address] [place] [phone] Timo Guzman MD [address] [facility] [place] [address] 05/27/2025 1:20 PM EST Office Visit Dermatology [facility] [address] [place] [address] Jonnathan House PA-C [address] [place] [address] Health Maintenance Due Date Last Done Comments [...] this encounter Medical Devices Implanted Type Area Delivery Assistant Device Identifier Shelf Expiration Date Model / Serial / Lot Cath Thermodilution 6fr - [id number] Implanted:Qty: 1 on 03/07/2023 by Armando Beltran MD at [facility] [employer]RISTYN [id number] 10/10/2024 [id number] / / [id number] Valve Aortic Transcath Fx 34mm - [id number] Implanted:Qty: 1 on 05/03/2023 by Armando Beltran MD at [facility] [employer] [id number] 08/10/2024 EVOLUTFX- 34 / [id number] / [id number] documented as of this encounter Visit Diagnoses Diagnosis Varicose veins of leg with complications- Primary Varicose veins of lower extremities with other complications 1st degree AV block First degree atrioventricular block Coronary artery disease involving [place] coronary artery of [place] heart without angina pectoris H/O Hodgkin's lymphoma Personal history of Hodgkin's disease Hemorrhage of varicose veins of left lower extremity ILD (interstitial lung disease) (HCC) Postinflammatory pulmonary fibrosis JULIUS (obstructive sleep apnea) Obstructive sleep apnea (adult) (pediatric) Paroxysmal atrial fibrillation (HCC) Atrial fibrillation S/P TAVR (transcatheter aortic valve replacement) Heart valve replaced by other means documented in this encounter Advance Directives Documents on File Type Date Recorded Patient Production Metal Sprayer Expl anation POLST 03/06/2022 [place] OR DERS [...] Advance Directives occurred with: Patient Care Teams Wire Wrapper Machine Operator Relationship Specialty Start Date End Date Dewayne Pena MD 132 [facility] [place] [address] PCP - General Family Medicine 04/30/23 documented as of this encounter"
--- OUTSIDE RECORDS SUMMARY | 2024-08-30 14:24 | External Medical Summary | Summary of Care ---
Author Name Unknown Organization [facility] Address [address] [place] [address] Phone [phone] Care Team Providers Care Senior Materials Planner Name Role Phone Dewayne Pena MD Primary Care Provider [phone] Reason for Visit * Reason Comments Pulmonary Function Test [address] Encounter Details Date Type Department Care Team (Latest Contact Info) Description 06/25/2024 11:00 AM EST PulmDiagnostic Pulmonary Function Lab, [facility] 132 [facility] [place] [address] [place], [place] [address] [place] [address] ILD (interstitial lung disease) ([facility])*; [employer] Other*[id number] Allergies No known active allergiesdocumented as of this encounter (statuses as of 06/25/2024) Medications Cholecalciferol 25 MCG (1000 UT) Oral [...] Active Additional Information Patient not taking.Reported on 05/26/2024 Levothyroxine Sodium 75 MCG Oral Tablet (Levoxyl) TAKE 1 TABLET BY MOUTH EVERY DAY IN THE MORNING (AT LEAST 30 MIN PRIOR TO BREAKFAST OR OTHER MEDS) 90 Tablet 3 4 Active Tavaborole 5 % External Solution APPLY TO AFFECTED TOENAILS ONCE A DAY FOR 6 MONTHS Active documented as of this encounter (statuses as of 06/25/2024) Active Problems Problem Noted Date Diagnosed Date [...] 2013, Depth unknown, no SLN, Location R synagogue Raynaud's disease without gangrene 06/02/2019 Esophageal dysmotility 05/20/2019 JULIUS (obstructive sleep apnea) 05/20/2019 ILD (interstitial lung disease) 05/20/2019 Coronary artery disease invo lving [place] coronary artery of [place] heart without angina pectoris 03/24/2019 Nonrheumatic mitral valve stenosis 03/24/2019 H/O Hodgkin's lymphoma 07/05/2018 Acquired hypothyroidism 07/05/2018 documented as of this encounter (statuses as of 06/25/2024) Resolved Problems Problem Noted Date Diagnosed Date Resolved Date Osteoporotic fracture of left hip 09/28/2022 03/14/2023 Aortic root enlargement 07/07/2022/08/2022 Sinus tachycardia 03/16/2022 03/14/2023 Hx of nonmelanoma skin cancer 03/24/2021 05/14/2023 Overview (03/24/2021): Hx MM date 2013, Depth unknown, no SLN, Location R synagogue (still no path in chart, pt confirmed that he had surgery for melanoma at that site and for BCC prior, see below) BCC R forehead 2008 ([facility]) Prediabetes 02/28/2021 02/01/2023 Overview: Per Prediabetes protocol Moderate protein malnutrition 12/15/2019 03/14/2023 Ankylosing spondylitis of cervical region 12/15/2019 07/07/2022 PSVT (paroxysmal supraventri cular tachycardia) 12/15/2019 03/21/2024 Moderate aortic stenosis 03/24/2019 H/O atrial fibrillation with out current medication 07/05/2018 03/14/2023 documented as of this encounter (statuses as of 06/25/2024) Immunizations Name Administration Dates Next Due COVID-19 mRNA, LNP-s, No Pre serve, 2-Dose Series (Moderna) 08/21/2020,07/17/2020 COVID-19, MRNA-LNP, PF, 30 M CG/0.3 mL, 12 YRS AND ABOVE, IM ([facility]) 04/10/2024,03/27/2023 COVID-19, mRNA, LNP-s, PF, B ooster, [...] ages 0-17 years) Not on file 03/07/2024 Sex and Gender Information Value Date [...] as of this encounter Nursing Notes * Maximiliano Pierce RRT - 06/25/2024 10:26 AM EST Guido Daley was identified by name, Date of : (1950), and . Vitals were obtained for testing. Exercise oximetry performed on room air x 3 minutes. Pt ambulated with walking stick 360 feet/ 110 meters. No rest periods were required. Lowest SPO2 on room air was 87%. Pt placedon 2 liters. Exercise oximetry performed on 2 liters x 3 minutes. Pt ambulated 450 feet/ 137 meters. No rest periods were required. Lowest SPO2 on 2 liters was 91%. documented in this encounter Plan of Treatment Upcoming Encounters Date Type Department Care Team (Late st Contact Info) Description 07/15/2024 1:00 PM EST Imaging Vascular Lab, [facility] 2nd Floor, [place] [address] [place] [address] 07/23/2024 12:30 PM EST Office Visit Vascular Surgery, [facility] [address] [place] [address] German Tay MD [address] [place] [address] 08/15/2024 11:30 AM EST Office Visit Cardiology, [facility] [address] [place] [address] Mike Graves DO [address] [facility] [place] [address] 09/23/2024 1:20 PM EDT Office Visit Family Practice [facility] 132 [facility] [place] [address] Dewayne Pena MD [address] [place] [place] [address] 10/06/2024 2:20 PM EDT Office Visit Rheumatology [address] [place] [address] Timo Guzman MD [address] [facility] [place], [place] [address] 01/12/2025 11:40 AM EDT Office Visit Sleep Disorders Ctr [facility] [address] [place] [phone] Cara Brantley DO [address] [place] [address] 05/27/2025 1:20 PM EST Office Visit Dermatology [facility] [address] [place] [address] Jonnathan House PA-C [address] [place] [address] Scheduled Orders Name Type Priority Associated Diagnoses Orde r Schedule PULMONARY STRESS TESTING Procedures Routine ILD (interstitial lung disease) (HCC) Ordered: 06/25/2024 Health Maintenance Due Date Last Done Comments [...] this encounter Medical Devices Implanted Type Area Pipeline Superintendent Division Device Identifier Shelf Expiration Date Model / Serial / Lot Cath Thermodilution 6fr - [id number] Implanted:Qty: 1 on 03/07/2023 by Armando Beltran MD at [facility] [employer]STYN [id number] 10/10/2024 [id number] / / [id number] Valve Aortic Transcath Fx 34mm - [id number] Implanted:Qty: 1 on 05/03/2023 by Armando Beltran MD at [facility] [employer] [id number] 08/10/2024 EVOLUTFX- 34 / [id number] / [id number] documented as of this encounter Visit Diagnoses Diagnosis ILD (interstitial lung disease) (HCC)- Primary Postinflammatory pulmonary fibrosis [employer] Other*[id number] documented in this encounter Advance Directives Documents on File Type Date Recorded Patient Doughnut Maker Expl anation POLST 03/06/2022 [place] OR DERS FOR LIFE-SUSTAINING TREATMENT POLST 12/13/2021 [place] OR DERS FOR LIFE-SUSTAINING TREATMENT * Full [...] Directives occurred with: Patient Care Teams Senior Materials Planner Relationship Specialty Start Date End Date Dewayne Pena MD [address] [place] [address] PCP - General Family Medicine 04/30/23 documented as of this encounter
--- OUTSIDE RECORDS SUMMARY | 2024-08-30 14:24 | External Medical Summary | Summary of Care ---
Author Name Unknown Organization [facility] Address [address] [place] [address] Phone [phone] Care Team Providers Care Wellness Educator Name Role Phone Dewayne Pena MD Primary Care Provider [phone] Reason for Visit * Reason Onset Date Comments Durable Medical Equipment 06/26/2024 O2 Ord er Encounter Details Date Type Department Care Team (Late st Contact Info) Description 06/26/2024 Telephone Pulmonary Medicine Martha Ford [address] [place] [phone] Juan Pablo Marsh MD [address] [place] [address] Durable Medical Equipment (O2 Order ) Allergies No known active allergiesdocumented as of this encounter (statuses as of 06/26/2024) Medications Cholecalciferol 25 MCG (1000 UT) Oral [...] 1 Tablet before bedtime. 60 Tablet 11 Active Saccharomyces boulardii 250 MG Oral Capsule [...] as of this encounter (statuses as of 06/26/2024) Active Problems Problem Noted Date Diagnosed Date [...] disease) 05/20/2019 Coronary artery disease invo lving [place] coronary artery of [place] heart without angina pectoris 03/24/2019 Nonrheumatic mitral valve stenosis 03/24/2019 H/O Hodgkin's lymphoma 07/05/2018 Acquired hypothyroidism 07/05/2018 documented as of this encounter (statuses as of 06/26/2024) Resolved Problems Problem Noted Date Diagnosed Date [...] prior, see below) BCC R forehead 2008 ([facility]) Prediabetes 02/28/2021 02/01/2023 Overview: Per Prediabetes protocol Moderate protein malnutrition 12/15/2019 03/14/2023 Ankylosing spondylitis of cervical region 12/15/2019 07/07/2022 PSVT (paroxysmal supraventri cular tachycardia) 12/15/2019 03/21/2024 Moderate aortic stenosis 03/24/2019 H/O atrial fibrillation with out current medication 07/05/2018 03/14/2023 documented as of this encounter (statuses as of 06/26/2024) Immunizations Name Administration Dates Next Due COVID-19 mRNA, LNP-s, No Pre serve, 2-Dose Series (Moderna) 08/21/2020,07/17/2020 COVID-19, MRNA-LNP, PF, 30 M CG/0.3 mL, 12 YRS AND ABOVE, IM ([facility]) 04/10/2024,03/27/2023 COVID-19, mRNA, LNP-s, PF, B ooster, [...] Telephone Encounter - Brittany Rust OSA - 06/26/2024 9:12 AM EST DME order for O2 submitted to [employer]. documented in this encounter Plan of Treatment Upcoming Encounters Date Type Department Care Team (Late st Contact Info) Description 07/15/2024 1:00 PM EST Imaging Vascular Lab, [facility] 2nd Floor, [place] [address] [facility] [place] [address] 07/23/2024 12:30 PM EST Office Visit Vascular Surgery, [facility] [address] [facility] [place] [address] German Tay MD [address] [facility] [address] 08/15/2024 11:30 AM EST Office Visit Cardiology, [facility] [address] [facility] [place] [address] Mike Graves, 132 [facility] [place] [address] 09/23/2024 1:20 PM EDT Office Visit Family Practice [facility] [address] [facility] [place] [address] Dewayne Pena MD [address] [place] [address] 10/06/2024 2:20 PM EDT Office Visit Rheumatology [address] [place] [address] Timo Guzman MD [address] [place] [address] [place] [address] 01/12/2025 11:40 AM EDT Office Visit Sleep Disorders Ctr [facility] [address] [facility] [place] [phone] Cara Brantley, DO [address] [place] [address] 05/27/2025 1:20 PM EST Office Visit Dermatology [facility] [address] [place] [phone] Jonnathan House PA-C [address] [place] [address] Health Maintenance Due Date Last Done Comments [...] this encounter Medical Devices Implanted Type Area Last Remodeler Repairer Device Identifier Shelf Expiration Date Model / Serial / Lot Cath Thermodilution 6fr - [id number] Implanted:Qty: 1 on 03/07/2023 by Armando Beltran MD at [facility] [employer]STYN [id number] 10/10/2024 [id number] / / [id number] Valve Aortic Transcath Fx 34mm - [id number] Implanted:Qty: 1 on 05/03/2023 by Armando Beltran MD at [facility] [employer] [id number] 08/10/2024 EVOLUTFX- 34 / [id number] / [id number] documented as of this encounter Advance Directives Documents on File Type Date Recorded Patient Client Services Assistant Expl anation POLST 03/06/2022 [place] OR DERS [...] Advance Directives occurred with: Patient Care Teams Wellness Educator Relationship Specialty Start Date End Date Dewayne Pena MD [address] [facility] [place] [address] PCP - General Family Medicine 04/30/23 documented as of this encounter
--- OUTSIDE RECORDS SUMMARY | 2024-08-30 14:24 | External Medical Summary | Summary of Care ---
Author Name Unknown Organization [facility] Address [address] [place] [address] Phone [phone] Care Team Providers Care Yarding Supervisor Name Role Phone Geovanna Pena MD Primary Care Provider [phone] Reason for Visit * Reason Comments Skin Check Annual skin check. G rowth on L buttock. Sore. Encounter Details Date Type Department Care Team ([facility] Contact Info) Description 05/26/2024 1:00 PM EST Office Visit Dermatology [address] [address] Jonnathan House PA-C [address] [place] [phone] Skin neoplasm*; History of malignant melanoma of skin; Scar conditions and fibrosis of skin; Screening for malignant neoplasm of skin Allergies No known active allergiesdocumented as of this encounter (statuses as of 05/27/2024) Medications Cholecalciferol 25 MCG (1000 UT) Oral [...] as of this encounter (statuses as of 05/27/2024) Active Problems Problem Noted Date Diagnosed Date [...] 2013, Depth unknown, no SLN, Location R alevism Raynaud's disease without gangrene 06/02/2019 Esophageal dysmotility 05/20/2019 JULIUS (obstructive sleep apnea) 05/20/2019 ILD (interstitial lung disease) 05/20/2019 Coronary artery disease invo lving chilkat coronary artery of chilkat heart without angina pectoris 03/24/2019 Nonrheumatic mitral valve stenosis 03/24/2019 H/O Hodgkin's lymphoma 07/05/2018 Acquired hypothyroidism 07/05/2018 documented as of this encounter (statuses as of 05/27/2024) Resolved Problems Problem Noted Date Diagnosed Date Resolved Date Osteoporotic fracture of left hip 09/28/2022 03/14/2023 Aortic root enlargement 07/07/2022 112 08/2022 Sinus tachycardia 03/16/2022 03/14/2023 Hx of nonmelanoma skin cancer 03/24/2021 05/14/2023 Overview (03/24/2021): Hx MM date 2013, Depth unknown, no SLN, Location R alevism (still no path in chart, pt confirmed that he had surgery for melanoma at that site and for BCC prior, see below) BCC R forehead 2008 ([facility]) Prediabetes 02/28/2021 02/01/2023 Overview: Per Prediabetes protocol Moderate protein malnutrition 12/15/2019 03/14/2023 Ankylosing spondylitis of cervical region 12/15/2019 07/07/2022 PSVT (paroxysmal supraventri cular tachycardia) 12/15/2019 03/21/2024 Moderate aortic stenosis 03/24/2019 H/O atrial fibrillation with out current medication 07/05/2018 03/14/2023 documented as of this encounter (statuses as of 05/27/2024) Immunizations Name Administration Dates Next Due COVID-19 mRNA, LNP-s, No Pre serve, 2-Dose Series (Moderna) 08/21/2020,07/17/2020 COVID-19, MRNA-LNP, PF, 30 M CG/0.3 mL, 12 YRS AND ABOVE, IM [facility] 04/10/2024,03/27/2023 COVID-19, mRNA, LNP-s, PF, B ooster, [...] as of this encounter Progress Notes * Wero Fierro MD - 05/27/2024 8:09 AM EST I have seen and examined via teledermatology review of chart note and photos the patient with Jonnathan House PA-C. I have reviewed and agree with the assessment and plan. Wero Fierro MD * Jonnathan House PA-C - 05/26/2024 12:52 PM EST SUBJECTIVE: HPI: Guido Daley is a 73 year old male with history of melanoma, seen today to be monitored forrecurrence at previously treated sites and to be evaluated for the development of new lesions. Patient was last seen by Dermatology in [place] 2022. Patient has a spot on the L buttock he wouldlike checked. Present the past 2 months. Sore. REVIEW OF SYSTEMS: Personal hx of Skin Cancer: MM date 2013, Depth unknown, no SLN, Location R alevism (still no path in chart, pt confirmed that he had surgery for melanoma at that site and for BCC prior, see below) BCC R forehead 2008 ([facility]) Hx Hodgkins as a kid, XRT, no issues since then Moved here from [place] (Apr 2018) SKIN: No other new or changing moles. HEME/LYMPH: No new or enlarging lumps or bumps. CONSTITUTIONAL: No nausea, vomiting, fevers, chills, diarrhea. No recent unintended weight loss, night sweats, appetite or malaise. Past Medical History: Diagnosis Date Atrial fibrillation (HCC) BMI less than 19,adult 03/16/2023 Bronchiectasis (HCC) Cardiac arrhythmia Coronary artery disease involving chilkat coronary artery of chilkat heart without angina pectoris 03/24/2019 Hodgkin's disease (HCC) 1976 s/p radiation Hx of melanoma of skin 03/24/2021 Hx MM date 2013, Depth unknown, no SLN, Location R alevism ILD (interstitial lung disease) (HCC) Moderate aortic stenosis 03/24/2019 Nonrheumatic mitral valve stenosis 03/24/2019 JULIUS (obstructive sleep apnea) Pulmonary arterial hypertension (HCC) Raynaud's disease without gangrene 06/02/2019 Sleep apnea, obstructive SOCIAL HISTORY: Social History Tobacco Use Smoking status: Former Current packs/day: 0.00 Average packs/day: 1 pack/day for 10.0 years (10.0 ttl pk-yrs) Types: Cigarettes Start date: 06/18/1967 Quit date: 06/18/1977 Years since quittin.9 Smokeless tobacco: Never Substance Use Topics Alcohol use: No Vaping/E-Cigarette Use Vaping/E-Cigarette Use Never User Vaping/E-Cigarette Substances Nicotine No Other No Flavoring No THC No Cannabidiol (CBD) No Vaping/E-Cigarette Devices Disposable No Pre-filled or Refillable Cartridge No Refillable Tank No Pre-filled Pod No MEDICA TIONS: Current Outpatient Medications Medication Sig Dispense Refill [...] into a large muscle. 0.3 mL 0 Levothyroxine Sodium 75 MCG Oral Tablet (Levoxyl) TAKE 1 TABLET BY MOUTH EVERY DAY IN THE MORNING (AT LEAST 30 MIN PRIOR TO BREAKFAST OR OTHER MEDS) 90 Tablet 3 Tavaborole 5 % External Solution APPLY TO AFFECTED TOENAILS ONCE A DAY FOR 6 MONTHS No current facility-administered medications for this visit. ALLERG Y: Patient has no known allergies. OBJECT CHAPARRITA: GEN: Healthy, alert, no distress, appears oriented, pleasant, and cooperative. SKIN: Detailed exam of hair, face including lids and lips, neck, chest, abdomen, back, bilateral upper ext. (arm, hand, fingers), bilateral lower ext. (leg, foot, toes), and buttocks completed and are normal except: A. L upper forehead with a brown macule with irregular pattern/pigmentation B. L inner buttock with a pink crusted papule C. R alevism with a faint scar. LYMPHATIC: No preauricular or postauricular, submandibular, submental, anterior or posterior cervical, supraclavicular, axillary lymphadenopathy. ASSESS MENT/PLAN: A. R/o lentigo v MIS v other Tangential biopsy of the lesion noted above to establish and confirm diagnosis. The procedure, risks, benefits, alternatives and expected outcomes were discussed with the patient and consent was obtained. Time out called. Patient identified, procedure verified, site identified and verified. Patientand staff present in agreement. Area prepped with alcohol and anesthetized using 0.5% lidocaine with epinephrine at 1:200,000 concentration. Biopsy of lesion performed. Base cauterized, 20% AlCl and bandaging applied. Specimen sent to pathology. Patient instructed in routine post-op care. B. R/o prurigo v NMSC v lymphoma v other Tangential biopsy of the lesion noted above to establish and confirm diagnosis. The procedure, risks, benefits, alternatives and expected outcomes were discussed with the patient and consent was obtained. Time out called. Patient identified, procedure verified, site identified and verified. Patientand staff present in agreement. Area prepped with alcohol and anesthetized using 0.5% lidocaine with epinephrine at 1:200,000 concentration. Biopsy of lesion performed. Base cauterized, 20% AlCl and bandaging applied. Specimen sent to pathology. Patient instructed in routine post-op care. C. Scar. History of melanoma - History was obtained regarding new or changing moles. - Patient counseled on self-examination for new or changing moles. - Advised age appropriate cancer screening and yearly eye exam The signs and symptoms of skin cancer [...] new lesions appear or current lesions change. Follow-up: 1 year or sooner PRN Patient alone today. Photo(s) taken, pt verbally consented to having photo(s) taken. Contact patient via cell phone Ok to leave results on message: Yes Patient Phone Numbers Photos/chart reviewed by Dr. Wero Fierro. Presum ed diagnoses, expected natural histories, and management options discussed with the patient at length. Questions were addressed and anticipatory guidance provided. They were instructed to contact me if additional questions, concerns, or problems develop in the interim. -There were no barriers to learning and no other pain was related to today's visit. The patient and/or person accompanying patient demonstrates understanding of the visit and treatment. Neelam House PA-C 05/26/2024 12:53 PM REF: SELF [address]RE[address] ADDRESS AVAILABLE PCP: GEOVANNA PENA [address] [place] [address] [place] [address] [phone] documented in this encounter Nursing Notes * Armida Sood LPN - 05/26/2024 12:55 PM EST Patient identified by name and date. Chief Complaint Patient presents with Skin Check Annual skin check. Growth on L buttock. Sore. documented in this encounter Plan of Treatment Upcoming Encounters Date Type Department Care Team (Late Contact Info) Description 07/14/2024 12:00 PM EST Office Visit Pulmonary Medicine, [facility] [address] [facility] [place] [address] Juan Pablo Marsh MD [address] [place] [address] 07/15/2024 1:00 PM EST Imaging Vascular Lab, [facility] II 2nd Floor, [place] [address] [facility] [address] [place] [address] 07/23/2024 12:30 PM EST Office Visit Vascular Surgery, [facility] [address] [facility] [place] [address] German Tay MD [address] [place] [address] 08/15/2024 11:30 AM EST Office Visit Cardiology, [facility] [address] [facility] [place] [address] Mike Graves DO [address] [facility] [place] [address] 09/23/2024 1:20 PM EDT Office Visit Family Practice [facility] [address] [place] [address] Geovanna Pena MD [address] [place] [address] 10/06/2024 2:20 PM EDT Office Visit Rheumatology [place] [id number] [facility] [place] [address] Timo Guzman MD [facility] [place] [address] 01/12/2025 11:40 AM EDT Office Visit Sleep Disorders Ctr [facility] [address] [place] [address] Cara Brantley, DO [address] [place] [address] 05/27/2025 1:20 PM EST Office Visit Dermatology [facility] [address] [place] [address] Jonnathan House PA-C [address] [place] [address] Pending Results Name Type Priority Associated Diagnoses Date /Time SURGICAL PATHOLOGY Pathology Routine History of malignant melanoma of skin Scar conditions and fibrosis of skin Screening for malignant neoplasm of skin 05/26/2024 1:17 PM EST Health Maintenance Due Date Last [...] this encounter Medical Devices Implanted Type Area Skates Operator Device Identifier Shelf Expiration Date Model / Serial / Lot Cath Thermodilution 6fr - [id number] Implanted:Qty: 1 on 03/07/2023 by Armando Beltran MD at [facility] [employer] KRISTYN [id number] 10/10/2024 [id number] / / [id number] Valve Aortic Transcath Fx 34mm - [id number] Implanted:Qty: 1 on 05/03/2023 by Armando Beltran MD at [facility] [employer] [id number] 08/10/2024 EVOLUTFX- 34 / [id number] / [id number] documented as of this encounter Procedures Procedure Name Priority Date/Time Associated Diagnosis Comments DERM EXAM - DERM (IMAGES ONLY, NO REPORT) Routine 05/26/2024 12:54 PM EST History of malignant melanoma of skin Scar conditions and fibrosis of skin Screening for malignant neoplasm of skin documented in this encounter Results * DERM EXAM - DERM (IMAGES ONLY, NO REPORT) (05/26/2024 12:54 PM EST) Narrative Scheduling, Silent - 05/26/2024 12:54 PM EST This is an imaging study not interpreted or resulted by a [employer]er or [employer] contracted radiologist. 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
--- OUTSIDE RECORDS SUMMARY | 2024-08-30 14:24 | External Medical Summary | Summary of Care ---
Author Name Unknown Organization [facility] Address [address] [place] [address] Phone [phone] Care Team Providers Care Transport Coordinator Name Role Phone Dewayne Pena MD Primary Care Provider [phone] Encounter Details Date Type Department Care Team (Late st Contact Info) Description 07/07/2024 Population Health External Data Unspecified Department Allergies No known active allergiesdocumented as of this encounter (statuses as of 07/07/2024) Medications Cholecalciferol 25 MCG (1000 UT) Oral [...] as of this encounter (statuses as of 07/07/2024) Active Problems Problem Noted Date Diagnosed Date [...] Depth unknown, no SLN, Location R anabaptist Raynaud's disease without gangrene 06/02/2019 Esophageal dysmotility 05/20/2019 JULIUS (obstructive sleep apnea) 05/20/2019 ILD (interstitial lung disease) 05/20/2019 Coronary artery disease invo lving lum[place] coronary artery of lumbee heart without angina pectoris 03/24/2019 Nonrheumatic mitral valve stenosis 03/24/2019 H/O Hodgkin's lymphoma 07/05/2018 Acquired hypothyroidism 07/05/2018 documented as of this encounter (statuses as of 07/07/2024) Resolved Problems Problem Noted Date Diagnosed Date [...] as of this encounter (statuses as of 07/07/2024) Immunizations Name Administration Dates Next Due COVID-19 mRNA, LNP-s, No Pre serve, 2-Dose Series (Moderna) 08/21/2020,07/17/2020 COVID-19, MRNA-LNP, PF, 30 M CG/0.3 mL, 12 YRS AND ABOVE, IM ([facility]) 04/10/2024,03/27/2023 COVID-19, mRNA, LNP-s, PF, [...] Gee MSW documented as of this encounter Plan of Treatment Upcoming Encounters Date Type Department Care Team (Late st Contact Info) Description 07/15/2024 1:00 PM EST [facility] [address] [place] [address] 07/23/2024 12:30 PM EST Office Visit Vascular Surgery, [facility] [address] [place] [address] German Tay MD [address] [place] [facility] [place] [address] 08/15/2024 11:30 AM EST Office Visit Cardiology, [facility] 132 [facility] [place] [address] Mike Graves, DO 132 [facility] [place] [address] 09/23/2024 1:20 PM EDT Office Visit Family Practice [facility] 132 [place] [address] Dewayne Pena MD 132 [facility] [place] [address] 10/06/2024 2:20 PM EDT Office Visit Rheumatology [facility] 132 [facility] [place] [phone] Timo Guzman MD [facility] [place] [address] 01/12/2025 11:40 AM EDT Office Visit Sleep Disorders Ctr [facility] 132 [facility] [phone] Cara Brantley, 132 [facility] [place] [address] 05/27/2025 1:20 PM EST Office Visit Dermatology [facility] [address] [place] [address] Jonnathan House PA-C [address] [place] [address] Health Maintenance Due Date Last [...] this encounter Medical Devices Implanted Type Area Skull Splitter Device Identifier Shelf Expiration Date Model / Serial / Lot Cath Thermodilution 6fr - [id number] Implanted:Qty: 1 on 03/07/2023 by Armando Beltran MD at [facility] [employer] KRISTYN [id number] 10/10/2024 [id number] / / [id number] Valve Aortic Transcath Fx 34mm - [id number] Implanted:Qty: 1 on 05/03/2023 by Armando Beltran MD at [facility] [employer] [id number] 08/10/2024 EVOLUTFX- 34 / [id number] / [id number] documented as of this encounter Advance Directives Documents on File Type Date Recorded 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
--- OUTSIDE RECORDS SUMMARY | 2024-08-30 14:24 | External Medical Summary | Summary of Care ---
Author Name Unknown Organization [facility] Address [address] [place] [address] Phone [phone] Care Team Providers Care Audograph Operator Name Role Phone Dewayne Pena MD Primary Care Provider [phone] Reason for Visit * Reason Comments Pulmonary Function Test 6 minute [address] Encounter Details Date Type Department Care Team (Latest Contact Info) Description 06/25/2024 11:00 AM EST PulmDiagnostic Pulmonary Function Lab, [facility] 132 [place] [address] [place], [place] 132 [facility] [place] [address] ILD (interstitial lung disease) ([facility])*; [employer] Other*[id number] Allergies No known active allergiesdocumented as of [...] Depth unknown, no SLN, Location R mormon Raynaud's disease without gangrene 06/02/2019 Esophageal dysmotility 05/20/2019 JULIUS (obstructive sleep apnea) 05/20/2019 ILD (interstitial lung disease) 05/20/2019 Coronary artery disease invo lving [place] coronary artery of [place] heart without angina pectoris 03/24/2019 Nonrheumatic [...] prior, see below) BCC R forehead 2008 ([facility]) Prediabetes 02/28/2021 02/01/2023 Overview: Per [...] CG/0.3 mL, 12 YRS AND ABOVE, IM [facility] 04/10/2024,03/27/2023 COVID-19, mRNA, [...] Care Team (Late st Contact Info) Description 06/25/2024 12:00 PM EST Office Visit Pulmonary Medicine, [address] [place] [address] Juan Pablo Marsh MD [address] [facility] [address] 06/25/2024 07/15/2024 1:00 PM EST Imaging Vascular Lab, [facility] II 2nd Floor, [address] [place] [address] 07/23/2024 12:30 PM EST Office Visit Vascular Surgery, [address] [place] [address] German Tay MD [address] [place] [address] 08/15/2024 11:30 AM EST Office Visit Cardiology, [address] [place] [address] Mike Graves DO 132 [place] [address] 09/23/2024 1:20 PM EDT Office Visit Family Practice [facility] [address] [place] [address] Dewayne Pena MD [address] [place] [address] 10/06/2024 2:20 PM EDT Office Visit Rheumatology [address] [place] [address] Timo Guzman MD [address] [place] [address] [place] [address] 01/12/2025 11:40 AM EDT Office Visit Sleep Disorders Ctr [facility] [address] [place] [phone] Cara Brantley DO [address] [place] [address] 05/27/2025 1:20 PM EST Office Visit Dermatology [facility] [address] [place] [address] Jonnathan House PA-C [address] [place], [place] [phone] Scheduled Orders Name Type Priority Associated Diagnoses [...] this encounter Medical Devices Implanted Type Area Power Nut Runner Operator Device Identifier Shelf Expiration Date Model / Serial / Lot Cath Thermodilution 6fr - [id number] Implanted:Qty: 1 on 03/07/2023 by Armando Beltran MD at [facility] [employer] KRISTYN [id number] 10/10/2024 [id number] / / [id number] Valve Aortic Transcath Fx 34mm - [id number] Implanted:Qty: 1 on 05/03/2023 by Armando Beltran MD at [facility] [employer] [id number] 08/10/2024 EVOLUTFX- 34 / [id number] / [id number] documented as of this encounter Visit Diagnoses Diagnosis ILD (interstitial lung disease) (HCC)- Primary Postinflammatory pulmonary fibrosis [employer] Other*[id number] documented in this encounter Advance Directives Documents on File Type Date Recorded 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
--- OUTSIDE RECORDS SUMMARY | 2024-08-30 14:24 | External Medical Summary | Summary of Care ---
Author Name Unknown Organization [facility] Address [address] [place] [address] Phone [phone] Care Team Providers Care Film Historian Name Role Phone Dewayne Pena MD Primary Care Provider [phone] Reason for Visit * Reason Onset Date Comments Advice 07/24/2024 Schedule surgery Encounter Details Date Type Department Care Team (Late st Contact Info) Description 07/24/2024 Telephone Vascular Surg [facility] [address] [place] [address] Services, Scheduling [address] [place] [address] Advice (Schedule surgery ) Allergies No known [...] PPM 1.1 % Dental Gel 5 Active documented as of this encounter [...] 2013, Depth unknown, no SLN, Location R latter day Raynaud's disease without gangrene 06/02/2019 Esophageal dysmotility [...] 2013, Depth unknown, no SLN, Location R latter day (still no path in chart, pt confirmed [...] CG/0.3 mL, 12 YRS AND ABOVE, IM ([facility]) 04/10/2024,03/27/2023 COVID-19, mRNA, LNP-s, PF, [...] encounter Miscellaneous Notes * Telephone Encounter - Michael Montes OSA - 07/24/2024 10:33 AM EST Pt ret call. Per Matt she needs to speak with Dr Tay and will call pt back [phone] JULIUS Fuller * Telephone Encounter - Sarabjit Velasquez CRNP - 07/24/2024 10:06 AM EST Consent was obtained 07/24/24. Please work with Dr. Tay to identify surgery date Needs scheduled for L GSV ablation/stabs. Needs scheduled for POD#2 or #3 venous duplex ([facility]). ELOY Page 07/24/2024 10:08 AM * Telephone Encounter - Shala Hansen OSA - 07/24/2024 9:53 AM EST Patient called to schedule surgery please call him to proceed. Thanks JULIUS Velazquez documented in this encounter Plan of Treatment Upcoming Encounters Date Type Department Care Team (Late st Contact Info) Description 07/29/2024 10:00 AM EST Office Visit Sleep Disorders Ctr [facility] [place] [phone] Cara Brantley DO [address] [place] [address] 08/15/2024 11:30 AM EST Office Visit Cardiology, [facility] [address] [place] [address] Mike Graves DO [address] [place] [address] 09/23/2024 1:20 PM EDT Office Visit Family Practice [facility] [address] [place] [address] Dewayne Pena MD [address] [place] [address] 10/06/2024 2:20 PM EDT Office Visit Rheumatology [facility] [address] [place] [phone] Timo Guzman MD [facility] [place] [address] 05/27/2025 1:20 PM EST Office Visit Dermatology [facility] [address] [place] [phone] Jonnathan House PA-C [address] [place] [address] Scheduled Orders Name Type Priority Associated Diagnoses Orde r Schedule VASC DUPLEX VENOUS LE UNILAT Medical Imaging Routine Varicose veins of leg with complications Localized edema Ordered: 07/24/2024 Health Maintenance Due Date Last Done Comments [...] encounter Medical Devices Implanted Type Area Project Management Manager Device Identifier Shelf Expiration Date Model / Serial / Lot Cath Thermodilution 6fr - [id number] Implanted:Qty: 1 on 03/07/2023 by Armando Beltran MD at [facility] [employer] KRISTYN [id number] 10/10/2024 [id number] / / [id number] Valve Aortic Transcath Fx 34mm - [id number] Implanted:Qty: 1 on 05/03/2023 by Armando Beltran MD at [facility] [employer] [id number] 08/10/2024 EVOLUTFX- 34 / [id number] / [id number] documented as of this encounter Visit Diagnoses Diagnosis Varicose veins of leg with complications- Primary Varicose veins of lower extremities with other complications Localized edema Edema documented in this encounter Advance Directives Documents on File Type Date Recorded 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
--- OUTSIDE RECORDS SUMMARY | 2024-08-30 14:24 | External Medical Summary | Summary of Care ---
Author Name Unknown Organization [facility] Address [address] [place] [address] Phone [phone] Care Team Providers Care Senior Business Objects Developer Name Role Phone Dewayne Pena MD Primary Care Provider [phone] Reason for Visit * Reason Comments Follow Up Encounter Details Date Type Department Care Team (Late st Contact Info) Description 06/25/2024 12:00 PM EST Office Visit Pulmonary Medicine, [facility] [address] [facility] [place] [address] Juan Pablo Marsh MD [address] [facility] [place] [address] Chronic respiratory failure with hypoxia (HCC)*; Nocturnal hypoxia Allergies No known active allergiesdocumented as of [...] two times per day 90 Tablet 3 Active Comirnaty 30 MCG/0.3ML Intramuscular Suspension Prefilled Syringe Inject into a large muscle. 0.3 mL Active Additional Information Patient not taking.Reported on 05/26/2024 Levothyroxine Sodium 75 MCG Oral Tablet (Levoxyl) TAKE 1 TABLET BY MOUTH EVERY DAY IN THE MORNING (AT LEAST 30 MIN PRIOR TO BREAKFAST OR OTHER MEDS) 90 Tablet 3 Active Tavaborole 5 % External Solution APPLY [...] disease) 05/20/2019 Coronary artery disease invo lving [place] coronary artery of [place] heart without angina pectoris 03/24/2019 Nonrheumatic mitral [...] CG/0.3 mL, 12 YRS AND ABOVE, [facility] 04/10/2024,03/27/2023 COVID-19, mRNA, LNP-s, PF, B ooster, [...] No 03/07/2024 Are you (or your family) ajn eless or worried that you might be [...] Sign Reading Time Taken Comments Blood Pressure 110/60 06/25/2024 11:23 AM EST Pulse 86 06/25/2024 11:23 AM EST Temperature - - Respiratory Rate 18 06/25/2024 11:23 AM EST Oxygen Saturation 91% 06/25/2024 11:23 AM EST Inhaled Oxygen Concentration - - Weight 65.4 kg (144 lb 1.9 oz) 06/25/2024 11:23 AM EST Height 182.9 cm (6') 06/25/2024 11:23 AM EST Body Mass Index 19.55 06/25/2024 11:23 AM EST documented in this encounter Functional Status * Do you have serious difficulty walking or climbing stairs? 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 PAF, Eliquis therapy status Hypertension CAD History of Hodgkin's lymphoma with radiation therapy to chest 45 years ago, history of melanoma skin, Patient describes stable respiratory status, improved nutritional status while maintaining aspiration precautions. History of pulmonary infiltrates likely related to prior history [...] of volume overload and nonlateralizing Neuro examination. We will recommend continuation of home oxygen therapy per criteria, maintain current recommendations including aspiration precautions, maintain physically active lifestyle, continue with incentive spirometry. Underlying risk factors for any future pulmonary compromise include Neuro muscular disease, myositis, history of radiation pneumonitis. Patient was advised to maintain aspiration precautionsand call with any change in respiratory symptoms status. Pulmonary clinic follow-up recommended in 6 months. Assessment Multifactorial hypoxia: Secondary to pulmonary hypertension, ILD, multifactorial pneumonitis 6 minute walk test completed. Two LPM nasal cannula oxygen with activity. 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 Bronchiectasis Uncomplicated Continue use of flutter device PAF Eliquis Therapy status TIA 07/2023 Rx at [facility] AVR 04/2023 On ASA/ Eliquis Pulmonary Hypertension Suspect group 2 or 3 Wears CPAP nightly Esophageal dysmotility Worked with PAEDIATRIC SURGEON in past which was reported as extremely helpful swallow study was without evidence of dysmotility Body mass index is 19.55 kg/m. Patient continues to maintain weight Neuromuscular disorder Continues to work with neurology Follow Up: Return in about 6 months (around 12/23/2024) for Clinic Visit, Video to Home. | For: Clinic Visit, Video to Home | Check-out note: Multifactorial hypoxia: Secondary to pulmonary hypertension, ILD, multifactorial pneumonitis 6 minute walk test completed. Two LPM nasal cannula oxygen with activity. nocturnal oximetry on CPAP ordered F/u 6 months I spent a total of 30-39 minutes (exact time 35 mins) on the date of service in preparation, delivery, and documentation of the care provided to Guido Daley excluding any time spent in the performance of separately billed services or time spent by another provider/QHP. Juan Pablo Marsh MD Data review: Following reports, and data as outlined below was personally reviewed and interpreted by myself. Prior Chest x-rays were reviewed. Bilateral scattered ILD changes without lymphadenopathy/effusions. 6 minute walk test showed desaturation on ambulation, required 2 LPM nasal cannula oxygen to maintain adequate oxygen saturation. XR CHEST 1 VIEW - 05/04/2023 5:42 [...] IMPRESSION Mild interval improvement in pulmonary edema. Subjective CC: Chief Complaint Patient presents with Follow Up HPI: Nursing Notes: Maximiliano Pierce, DISTILLERY WORKER GENERAL 06/25/24 1141 Signed Interm History/Respiratory Symptoms Cough: Productive of yellowish Hemoptysis: No Sinus Symptoms: No Hospitalizations: No ED Trips: No Triggers: Exertion Nocturnal: CPAP@ HS Pt wears 2 liters with exercise. CPAP/BiPAP/O2: CPAP@ [facility]. Pt wears 2 liters with exercise. DME Supplier: [employer] Flu Vaccine: 03/21/24 Pneumovax: 02/14/21 Prevnar: 11/08/18 COVID 19: 04/10/24 Travel Screening Question 06/25/2024 10:48 AM EST - Filed by Patient Do you have any of the following new or worsening symptoms? Shortness of breath Have you recently been in contact with someone who was sick? No / Unsure Myc Visit Accident Related Question Question 06/25/2024 10:48 AM EST - Filed by Patient Is this visit related to an accident? (i.e work, motor vehicle) No Objective Filed Vitals: 06/25/24 1123 BP: 110/60 Pulse: 86 Resp: 18 SpO2: 91% Weight: 65.4 kg (144 lb 1.9 oz) Height: 1.829 m (6') Exam: Const: No signs of acute distress present. Head/Face: Normal on inspection. Eyes: Conjunctivae clear. Pupils equal round and reactive to light. ENMT: Oropharynx: No erythema, exudate or masses. Posterior pharynx is normal. Neck: Supple and symmetric. Resp: Respiratory examination as outlined above CV: Rate is regular. Rhythm is regular. No heart murmur appreciated. Extremities: No edema of the lower limbs bilaterally. Skin: Skin is warm and dry. Neuro: Coordination normal. No involuntary movement. Psych: Patient's attitude is cooperative. Mood is normal. Affect is normal. Tests reviewed with the patient: No imaging results in the last 6 months Available Radiologic data was reviewed by me in PACS. The images were shown to the patient and findings were discussed with the patient. HOME MEDICATIONS: Tavaborole 5 % External Solution Levothyroxine Sodium 75 MCG Oral Tablet (Levoxyl) Sotalol HCl 80 MG Oral Tablet (Betapace) NATURAL SUPPLEMENT Saccharomyces boulardii 250 MG Oral Capsule (Florastor) Vitamin B-12 1000 MCG Sublingual Tablet Sublingual Apixaban 5 MG Oral Tablet (Eliquis) Atorvastatin Calcium 20 MG Oral Tablet (Lipitor) Nac 600 600 MG Oral Capsule (Acetylcysteine) Amoxicillin 500 MG Oral Capsule (Amoxil) Ocuvite Adult Formula Oral Capsule Turmeric Curcumin Oral Capsule CPAP Cholecalciferol 25 MCG (1000 UT) Oral Capsule Comirnaty 30 MCG/0.3ML Intramuscular Suspension Prefilled Syringe ROS: No reported history of Hemoptysis, Hematemesis, Melena No reported history of Dysuria, Hematuria, Flank Pain No reported history of chronic headache, seizures No reported history of Fall or trauma . No reported history of recent change in weight or appetite. Past Medical History: Diagnosis Date Atrial fibrillation (HCC) BMI less than 19,adult 03/16/2023 Bronchiectasis (HCC) Cardiac arrhythmia Coronary artery disease involving [place] coronary artery of [place] heart without angina pectoris 03/24/2019 Hodgkin's disease (HCC) 1977 s/p radiation Hx of melanoma of skin 03/24/2021 Hx MM date 2013, Depth unknown, no SLN, Location R presybeterian ILD (interstitial lung disease) (HCC) Moderate aortic [...] by Armando Beltran MD at [facility] EGD, FLEXIBLE, DIAGNOSTIC 05/21/2019 reflux / [facility] MUSCLE BIOPSY, DEEP Left 04/11/2022 BIOPSY MUSCLE DEEP performed by Sadiq Kennedy MD at [facility] REMOVAL OF SPLEEN, TOTAL 1978 Due to Hodgkin's disease REPLACE AORTIC VALVE, PERCUTANEOUS FEMORAL Bilateral 05/03/2023 REPLACE AORTIC VALVE, PERCUTANEOUS FEMORAL performed by Armando Beltran MD at [facility] REPLACE AORTIC VALVE, PERCUTANEOUS FEMORAL Bilateral 05/03/2023 REPLACE AORTIC VALVE, PERCUTANEOUS FEMORAL performed by Cisco Herrera MD, PhD at [facility] TOTAL HIP REPLACEMENT & PROSTHESIS Left 11/28/2021 Social History Socioeconomic History Marital status: Occupational History 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 (Adult - for ages 18 years and over): No Transportation Needs: No Transportation Needs (03/07/2024) Transportation Needs Has lack of transportation kept you from medical appointments, meetings, work, or from getting things needed for daily living? Check all that apply. (Adult - for ages 18 years and over): No Social Connections: Socially Integrated (03/07/2024) Social Connections How often do you feel lonely or isolated from those around you? (Adult - for ages 18 years and over): Never Housing Stability: Low Risk (03/07/2024) Housing Stability Do you currently live in a fci or have no steady place to sleep at night? (Adult - for ages 18 years and over): No Are you homeless or worried that you might be in the future? 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 CPAP/BiPAP/O2: CPAP@ [facility]. Pt wears 2 liters with exercise. DME Supplier: [facility] Flu Vaccine: 03/21/24 Pneumovax: 02/14/21 Prevnar: 11/08/18 COVID 19: 04/10/24 Travel Screening Question 06/25/2024 10:48 AM EST - Filed by Patient Do you have any of the following new or worsening symptoms? Shortness of breath Have you recently been in contact with someone who was sick? No / Unsure Myc Visit Accident Related Question Question 06/25/2024 10:48 AM EST - Filed by Patient Is this visit related to an accident? (i.e work, motor vehicle) No documented in this encounter Plan of Treatment Upcoming Encounters Date Type Department Care Team (Late st Contact Info) Description 07/15/2024 1:00 PM EST Imaging Vascular Lab, [facility] 2nd Floor, [address] [place] [address] 07/23/2024 12:30 PM EST Office Visit Vascular Surgery, [address] [place] [address] German Tay [facility] [address] [facility] [address] 08/15/2024 11:30 AM EST Office Visit Cardiology, [address] [place] [address] Mike Graves DO [address] [place] [address] 09/23/2024 1:20 PM EDT Office Visit Family Practice [facility] [address] [place] [address] Dewayne Pena MD [address] [place] [address] 10/06/2024 2:20 PM EDT Office Visit Rheumatology [address] [place] [address] Timo Guzman MD [address] [place] [address] [place] [address] 01/12/2025 11:40 AM EDT Office Visit Sleep Disorders Ctr [facility] [address] [place] [phone] Cara Brantley DO [address] [place] [address] 05/27/2025 1:20 PM EST Office Visit Dermatology [address] [phone] Jonnathan House PA-C [address] [place] [address] [phone] Scheduled Orders Name Type Priority Associated Diagnoses Orde r Schedule NOCTURNAL HOME OXIMETRY (OP) Procedures Routine Chronic respiratory failure with hypoxia (HCC) Nocturnal hypoxia Ordered: 06/25/2024 Health Maintenance Due Date Last [...] this encounter Medical Devices Implanted Type Area Press Shop Supervisor Device Identifier Shelf Expiration Date Model / Serial / Lot Cath Thermodilution 6fr - [id number] Implanted:Qty: 1 on 03/07/2023 by Armando Beltran MD at [facility] [employer]STYN [id number] 10/10/2024 [id number] / / [id number] Valve Aortic Transcath Fx 34mm - [id number] Implanted:Qty: 1 on 05/03/2023 by Armando Beltran MD at [facility] [employer] [id number] 08/10/2024 EVOLUTFX- 34 / [id number] / [id number] documented as of this encounter Visit Diagnoses Diagnosis Chronic respiratory failure with hypoxia (HCC)- Primary Chronic respiratory failure Nocturnal hypoxia Hypoxemia documented in this encounter Advance Directives Documents on File Type Date Recorded Patient Judicial Administrative Assistant Expl anation POLST 03/06/2022 [place] DERS FOR LIFE-SUSTAINING TREATMENT POL 12/13/2021 [place] OR DERS FOR LIFE-SUSTAINING TREATMENT [...] Directives occurred with: Patient Care Teams Senior Business Objects Developer Relationship Specialty Start Date End Date Dewayne Pena MD [address] [place] [address] PCP - General Family Medicine 04/30/23 documented as of this encounter
--- OUTSIDE RECORDS SUMMARY | 2024-08-30 14:24 | External Medical Summary | Summary of Care ---
Author Name Unknown Organization [facility] Address [address] [place] [address] Phone [phone] Care Team Providers Care Laundry Room Attendant Name Role Phone Dewayne Pena MD Primary Care Provider [phone] Encounter Details Date Type Department Care Team (Latest Contact Info) Description 05/26/2024 12:54 PM EST - 05/26/2024 11:59 PM EST Hospital Encounter Radiology Film File [address] [place] [address] Arrived Discharge Disposition: Home - Self Care [...] prior, see below) BCC R forehead 2008 ([facility]) Prediabetes 02/28/2021 02/01/2023 Overview: Per [...] No 03/07/2024 Does the household have a [facility] source of income? (Household - for ages [...] Care Team (Late st Contact Info) Description 07/14/2024 12:00 PM EST Office Visit Pulmonary Medicine, [address] [place] [address] Juan Pablo Marsh MD [address] [place] [address] 07/15/2024 1:00 PM EST Imaging Vascular Lab, [facility] 2nd [facility] [address] [facility] [place] [address] 07/23/2024 12:30 PM EST Office Visit Vascular Surgery, [facility] [address] [facility] [place] [address] German Tay MD [address] [place] [address] 08/15/2024 11:30 AM EST Office Visit Cardiology, [facility] 132 [facility] [place] [address] Mike Graves, 132 [facility] [place] [address] 09/23/2024 1:20 PM EDT Office Visit Family Practice [facility] [address] [facility] [place] [address] Dewayne Pena MD 132 [facility] [place] [address] 10/06/2024 2:20 PM EDT Office Visit Rheumatology [address] [place], [place] [address] Timo Guzman MD [address] [place] [address] [place], [place] [address] 01/12/2025 11:40 AM EDT Office Visit Sleep Disorders Ctr [facility] [address] [facility] [place] [phone] Cara Brantley DO [address] [place] [address], [place] [address] 05/27/2025 1:20 PM EST Office Visit Dermatology [facility] [address] [place] [address] Jonnathan House PA-C [address] [place] [address] Health Maintenance Due Date Last Done Comments [...] this encounter Medical Devices Implanted Type Area Bench Molder Apprentice Device Identifier Shelf Expiration Date Model / Serial / Lot Cath Thermodilution 6fr - [id number] Implanted:Qty: 1 on 03/07/2023 by Armando Beltran MD at [facility] [employer]YN [id number] 10/10/2024 [id number] / / [id number] Valve Aortic Transcath Fx 34mm - [id number] Implanted:Qty: 1 on 05/03/2023 by Armando Beltran MD at [facility] [employer] [id number] 08/10/2024 EVOLUTFX- 34 / [id number] / [id number] documented as of this encounter Procedures Procedure [...] study not interpreted or resulted by a [facility] or [facility] contracted radiologist. Jonnathan House PA-C RADIOLOGY (RAD GENERAL) Fin al Result documented in this encounter Advance Directives Documents on File Type Date Recorded Patient Card Lacer Expl anation POLST 03/06/2022 [place] DERS [...] Advance Directives occurred with: Patient Care Teams Laundry Room Attendant Relationship Specialty Start Date End Date Dewayne Pena MD [address] [place] [address] PCP - General Family Medicine 04/30/23 documented as of this encounter
--- OUTSIDE RECORDS SUMMARY | 2024-08-30 14:24 | External Medical Summary | Summary of Care ---
Author Name Unknown Organization [facility] Address [address] [place] [address] Phone [phone] Care Team Providers Care Research Librarian Name Role Phone Dewayne Pena MD Primary Care Provider [phone] Reason for Visit * Reason Comments Follow Up Encounter Details Date Type Department Care Team (Late st Contact Info) Description 06/25/2024 12:00 PM EST Office Visit Pulmonary Medicine, [facility] 132 [facility] [place] [address] Juan Pablo Marsh MD [address] [facility] [place] [address] Chronic respiratory failure with hypoxia (HCC)*; Nocturnal [...] 2013, Depth unknown, no SLN, Location R samaritan Raynaud's disease without gangrene 06/02/2019 Esophageal dysmotility [...] 2013, Depth unknown, no SLN, Location R samaritan (still no path in chart, pt confirmed that he had surgery for melanoma at that site and for BCC prior, see below) BCC R forehead 2008 (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 Exercise Oximetry: Patient pulse ox 91% on room air at rest. Patient tolerated ambulation for 3 minutes on room air: SpO2 87%. Patient placed on 2 liters of oxygen via nasal cannula during ambulation to improve oxygen saturations to 91% while ambulating. 2 LPM Oxygen with Activity ordered. We will recommend continuation of home oxygen [...] completed. Two LPM nasal cannula oxygen with activity ordered. 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 in past which was reported as extremely [...] with Follow Up HPI: Nursing Notes: Maximiliano Pierce RRT 06/25/24 1141 Signed Interm History/Respiratory Symptoms Cough: [...] (HCC) Cardiac arrhythmia Coronary artery disease involving [place] coronary artery of [place] heart without angina pectoris 03/24/2019 Hodgkin's disease (HCC) 1977 s/p radiation Hx of melanoma of skin 03/24/2021 Hx MM date 2013, Depth unknown, no SLN, Location R samaritan ILD (interstitial lung disease) (HCC) Moderate aortic [...] by Armando Beltran MD at [facility] EGD, FLEXIBLE, DIAGNOSTIC 05/21/2019 reflux / [facility] MUSCLE BIOPSY, DEEP Left 04/11/2022 BIOPSY MUSCLE DEEP performed by Sadiq Kennedy MD at OR [facility] REMOVAL OF SPLEEN, TOTAL 1978 Due to Hodgkin's disease REPLACE AORTIC VALVE, PERCUTANEOUS FEMORAL Bilateral 05/03/2023 REPLACE AORTIC VALVE, PERCUTANEOUS FEMORAL performed by Armando Beltran MD at [facility] REPLACE AORTIC VALVE, PERCUTANEOUS FEMORAL Bilateral 05/03/2023 REPLACE AORTIC VALVE, PERCUTANEOUS FEMORAL performed by Cisco Herrera MD, PhD at [facility] TOTAL HIP REPLACEMENT & PROSTHESIS Left 11/28/2021 [...] Stability Do you currently live in a nursing home or have no steady place to sleep at night? (Adult - for ages 18 years and over): No Are you homeless or worried that you might be in the future? 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 DME Supplier: [employer] Flu Vaccine: 03/21/24 Pneumovax: 02/14/21 Prevnar: 11/08/18 [...] 07/15/2024 1:00 PM EST Imaging Vascular Lab, [facility] II 2nd Floor, [place] 132 [facility] [place] [address] 07/23/2024 12:30 PM EST Office Visit Vascular Surgery, [address] [place] [address] German Tay MD [address] [facility] [place], [place] [address] 08/15/2024 11:30 AM EST Office Visit Cardiology, [facility] 132 [facility] [address] Mike Graves, DO 132 [facility] [place] [address] 09/23/2024 1:20 PM EDT Office Visit Family Practice [facility] 132 [place] [address] Dewayne Pena MD 132 [facility] [address] 10/06/2024 2:20 PM EDT Office Visit Rheumatology [facility] 132 [facility] [phone] Timo Guzman MD [facility] [place] [address] 01/12/2025 11:40 AM EDT Office Visit Sleep Disorders Ctr [facility] 132 [facility] [place] [phone] Cara Brantley, 132 [facility] [place] [address] 05/27/2025 1:20 PM EST Office Visit Dermatology [facility] [address] [place] [phone] Jonnathan House PA-C [address] [place] [address] Scheduled Orders Name Type Priority Associated Diagnoses [...] this encounter Medical Devices Implanted Type Area Matcher Leather Parts Device Identifier Shelf Expiration Date Model / Serial / Lot Cath Thermodilution 6fr - [id number] Implanted:Qty: 1 on 03/07/2023 by Armando Beltran MD at [facility] [employer] KRISTYN [id number] 10/10/2024 [id number] / / [id number] Valve Aortic Transcath Fx 34mm - [id number] Implanted:Qty: 1 on 05/03/2023 by Armando Beltran MD at [facility] [employer] [id number] 08/10/2024 EVOLUTFX- 34 / [id number] / [id number] documented as of this encounter Visit Diagnoses Diagnosis Chronic respiratory failure with hypoxia (HCC)- Primary Chronic respiratory failure Nocturnal hypoxia Hypoxemia documented in this encounter Advance Directives Documents on File Type Date Recorded Patient Logistics Loss Prevention Manager Expl anation POLST 03/06/2022 [place] OR DERS [...] Advance Directives occurred with: Patient Care Teams Research Librarian Relationship Specialty Start Date End Date Dewayne Pena MD [address] [place] [address] PCP - General Family Medicine 04/30/23 documented as of this encounter
--- OUTSIDE RECORDS SUMMARY | 2024-08-30 14:24 | External Medical Summary | Summary of Care ---
Author Name Unknown Organization [facility] Address [address] [place] [address] Phone [phone] Care Team Providers Care Clinical Marketing Manager Name Role Phone Dewayne Pena MD Primary Care Provider [phone] Reason for Visit * Reason Onset Date Comments Advice 07/24/2024 Schedule surgery Encounter Details Date Type Department Care Team (Late st Contact Info) Description 07/24/2024 Telephone Vascular Surg [facility] [address] [place] [address] Services, Scheduling [address] [place] [address] Advice (Schedule surgery ) Allergies No known [...] 2013, Depth unknown, no SLN, Location R zoroastrianism Raynaud's disease without gangrene 06/02/2019 Esophageal dysmotility [...] 2013, Depth unknown, no SLN, Location R zoroastrianism (still no path in chart, pt confirmed [...] CG/0.3 mL, 12 YRS AND ABOVE, IM ([email or web address]) 04/10/2024,03/27/2023 COVID-19, mRNA, LNP-s, PF, B [...] Dr Tay and will call pt back [phone] JULIUS Fuller * Telephone Encounter - Sarabjit Velasquez CRNP - 07/24/2024 10:06 AM EST Consent was obtained 07/24/24. Please work with Dr. Tay to identify surgery date Needs scheduled for L GSV ablation/stabs. Needs scheduled for POD#2 or #3 venous duplex ([facility]). ELOY Page 07/24/2024 10:08 AM * Telephone Encounter - Shala Hansen OSA - 07/24/2024 9:53 AM EST Patient called to schedule surgery please call him to proceed. Thanks JULIUS Velazquez documented in this encounter Plan of Treatment Upcoming Encounters Date Type Department Care Team (Late st Contact Info) Description 07/29/2024 10:00 AM EST Office Visit Sleep Disorders Ctr [facility] [place] [phone] Cara Brantley DO [address] [place] [address] 08/15/2024 11:30 AM EST Office Visit Cardiology, [facility] [address] [place] [address] Mike Graves DO [address] [place] [address] 09/23/2024 1:20 PM EDT Office Visit Family Practice [facility] [address] [place] [address] Dewayne Pena MD [address] [place] [address] 10/06/2024 2:20 PM EDT Office Visit Rheumatology [facility] [address] [place] [phone] Timo Guzman MD [facility] [place] [address] 05/27/2025 1:20 PM EST Office Visit Dermatology [facility] [address] [place] [phone] Jonnathan House PA-C [address] [place] [address] Scheduled Orders Name Type Priority Associated Diagnoses [...] this encounter Medical Devices Implanted Type Area Decorator Mannequin Device Identifier Shelf Expiration Date Model / Serial / Lot Cath Thermodilution 6fr - [id number] Implanted:Qty: 1 on 03/07/2023 by Armando Beltran MD at [facility] [employer] KRISTYN [id number] 10/10/2024 [id number] / / [id number] Valve Aortic Transcath Fx 34mm - [id number] Implanted:Qty: 1 on 05/03/2023 by Armando Beltran MD at [facility] [employer] [id number] 08/10/2024 EVOLUTFX- 34 / [id number] / [id number] documented as of this encounter Visit Diagnoses Diagnosis Varicose veins of leg with complications- Primary Varicose veins of lower extremities with other complications Localized edema Edema documented in this encounter Advance Directives Documents on File Type Date Recorded Patient Search Engine Marketing Manager Expl anation POLST 03/06/2022 [place] OR DERS [...] Advance Directives occurred with: Patient Care Teams Clinical Marketing Manager Relationship Specialty Start Date End Date Dewayne Pena MD [address] [place] [address] PCP - General Family Medicine 04/30/23 documented as of this encounter
--- OUTSIDE RECORDS SUMMARY | 2024-08-30 14:24 | External Medical Summary | Summary of Care ---
Author Name Unknown Organization [facility] Address [address] [place] [address] Phone [phone] Care Team Providers Care Computer Systems Designer Name Role Phone Geovanna Pena MD Primary Care Provider [phone] Reason for Visit * Reason Comments Skin Check Annual skin check. G rowth on L buttock. Sore. Encounter Details Date Type Department Care Team ([facility] Contact Info) Description 05/26/2024 1:00 PM EST Office Visit Dermatology [address] [phone] Jonnathan House PA-C [address] [place] [address] Skin neoplasm*; History of malignant melanoma of skin; Scar conditions and fibrosis of skin; Screening for malignant neoplasm of skin Allergies No known active allergiesdocumented as of this encounter (statuses as of 05/26/2024) Medications Cholecalciferol 25 MCG (1000 UT) Oral [...] as of this encounter (statuses as of 05/26/2024) Active Problems Problem Noted Date Diagnosed Date [...] disease) 05/20/2019 Coronary artery disease invo lving [place] coronary artery of [place] heart without angina pectoris 03/24/2019 Nonrheumatic mitral valve stenosis 03/24/2019 H/O Hodgkin's lymphoma 07/05/2018 Acquired hypothyroidism 07/05/2018 documented as of this encounter (statuses as of 05/26/2024) Resolved Problems Problem Noted Date Diagnosed Date [...] as of this encounter (statuses as of 05/26/2024) Immunizations Name Administration Dates Next Due COVID-19 mRNA, LNP-s, No Pre serve, 2-Dose Series (Moderna) 08/21/2020,07/17/2020 COVID-19, MRNA-LNP, PF, 30 M CG/0.3 mL, 12 YRS AND ABOVE, IM ([facility] 04/10/2024,03/27/2023 COVID-19, mRNA, LNP-s, PF, B ooster, [...] as of this encounter Progress Notes * Jonnathan House PA-C - 05/26/2024 12:52 PM EST SUBJECTIVE: HPI: Guido Daley is a 73 year old male with history of melanoma, seen today to be monitored forrecurrence at previously treated sites and to be evaluated for the development of new lesions. Patient was last seen by Dermatology in [place] 2022. Patient has a spot on the [...] R forehead 2008 ([facility]) Hx Hodgkins as a kid, XRT, no issues since then Moved here from [place] (Apr 2018) SKIN: No other new or changing moles. HEME/LYMPH: No new or enlarging lumps or bumps. CONSTITUTIONAL: No nausea, vomiting, fevers, chills, diarrhea. No recent unintended weight loss, night sweats, appetite or malaise. Past Medical History: Diagnosis Date Atrial fibrillation (HCC) BMI less than 19,adult 03/16/2023 Bronchiectasis (HCC) Cardiac arrhythmia Coronary artery disease involving [place] coronary artery of [place] heart without angina pectoris 03/24/2019 Hodgkin's disease (HCC) 1977 s/p radiation Hx of melanoma of skin 03/24/2021 Hx MM date 2013, Depth unknown, no SLN, Location R advent ILD (interstitial lung disease) (HCC) Moderate aortic [...] with a pink crusted papule C. R advent with a faint scar. LYMPHATIC: No preauricular [...] NO STREET ADDRESS AVAILABLE PCP: GEOVANNA PENA 132 [facility] [place] [address] [phone] documented in this encounter Nursing Notes * Armida Sood LPN - 05/26/2024 12:55 PM EST Patient identified by name and date. Chief Complaint Patient presents with Skin Check Annual skin check. Growth on L buttock. Sore. documented in this encounter Plan of Treatment Upcoming Encounters Date Type Department Care Team (Late st Contact Info) Description 07/14/2024 12:00 PM EST Office Visit Pulmonary Medicine, [facility] 132 [facility] [place] [address] Juan Pablo Marsh MD [address] [facility] [place] [address] 07/15/2024 1:00 PM EST Imaging Vascular Lab, [facility] 2nd Floor, [place] [address] [place] [address] 07/23/2024 12:30 PM EST Office Visit Vascular Surgery, [facility] [address] [place] [address] German Tay MD [address] [place] [address] 08/15/2024 11:30 AM EST Office Visit Cardiology, [facility] [address] [place] [address] Mike Graves, [address] [place] [address] 09/23/2024 1:20 PM EDT Office Visit Family Practice [facility] [address] [place] [address] Geovanna Pena MD 132 [facility] [place] [address] 10/06/2024 2:20 PM EDT Office Visit Rheumatology [address] [place] [address] Timo Guzman MD [address] [place] [address] [place] [address] 01/12/2025 11:40 AM EDT Office Visit Sleep Disorders Ctr [facility] 132 [facility] [place] [phone] Cara Brantley DO [address] [place] [address] 05/27/2025 1:20 PM EST Office Visit Dermatology [address] [phone] Jonnathan House PA-C [address] [place] [address] Pending Results Name Type Priority Associated Diagnoses [...] this encounter Medical Devices Implanted Type Area Bucket Wash Operator Device Identifier Shelf Expiration Date Model / Serial / Lot Cath Thermodilution 6fr - [id number] Implanted:Qty: 1 on 03/07/2023 by Armando Beltran MD at [facility] [employer] KRISTYN [id number] 10/10/2024 [id number] / / [id number] Valve Aortic Transcath Fx 34mm - [id number] Implanted:Qty: 1 on 05/03/2023 by Armando Beltran MD [facility] [employer] [id number] 08/10/2024 EVOLUTFX- 34 / [id number] / [id number] documented as of this encounter Procedures Procedure [...] [facility] contracted radiologist. Jonnathan House PA-C RADIOLOGY ([facility]) Fin al Result documented [...] Documents on File Type Date Recorded Patient Homeowner Association Manager Expl anation POLST 03/06/2022 [place] [...] Advance Directives occurred with: Patient Care Teams Computer Systems Designer Relationship Specialty Start Date End Date Geovanna Pena MD [address] [place] [address] PCP - General Family Medicine 04/30/23 documented as of this encounter
--- NOTE | 2024-08-30 14:25 | Emergency Department Note ---
Impression & Plan Pulmonary edema, Hypoxia, Edema, Acute hyponatremia ED Provider Note NAME: ANIL JARAMILLO AGE: 73 SEX: M : 1950 ARRIVES VIA: Ambulance INFORMANT: Patient, EMS ED PROVIDER(S): Mark Rose DO CHIEF COMPLAINT: Difficulty breathing HPI: The patient is a 73-year-old male who presented to the emergency department for evaluation of difficulty breathing. The patient does have a history of atrial fibrillation as well as interstitial lung disease. He does wear oxygen at home. He has been noticing that he has needed more oxygen over the last few days as well as dry cough weight gain and dyspnea on exertion. The patient denies having any hemoptysis. He denies having any abdominal pain or chest pain. The patient's symptoms became much worse and he dialed 911. He arrived via ambulance. ROS: See above HPI for pertinent positives & negatives. A total of 10 systems reviewed and were otherwise negative. PAST MEDICAL HISTORY: See Below PAST SURGICAL HISTORY: See Below FAMILY HISTORY: See Below SOCIAL HISTORY: See Below HOME MEDICATIONS: See Below ALLERGIES: See Below VITALS: See Below PHYSICAL EXAMINATION: GENERAL: Patient is awake alert in no acute distress patient is resting comfortably and showing no signs of anxiety EYES: The conjunctivae are clear. The pupils are round and reactive. EARS, NOSE, MOUTH AND THROAT: The nose is without any evidence of any deformity. NECK: The neck is nontender and supple. RESPIRATORY: Minich breath sounds are noted throughout. There were rales on the right lung field. There was mild conversational dyspnea noted. CARDIOVASCULAR: Regular rate and rhythm noted there no murmurs rubs or gallops normal S1 normal S2. GASTROINTESTINAL: The abdomen is soft. Abdomen is nontender. MUSCULOSKELETAL/EXTREMITIES: There is no evidence of gross deformity full range of motion is noted in the hips and shoulders. SKIN: Bilateral pedal edema was noted. NEUROLOGIC: Patient is awake alert and oriented x3 MEDICAL DECISION MAKING: The patient is a 73-year-old male who presented to the emergency department for an evaluation of difficulty breathing. The patient has a history of pulmonary edema as well as interstitial lung disease. He recently had a thoracentesis for a pleural effusion on the right. The patient presented with shortness of breath. He has been using oxygen at home. The patient started having worsening shortness of breath today and came to the emergency department via ambulance. I discussed the patient's laboratory and radiographic studies with him. He was treated with IV Lasix in the emergency department. I discussed his condition with the on-call [facility] hospitalist. They have agreed to evaluate the patient in the emergency department. Triage Nursing notes reviewed. Prior medical records reviewed Vital Signs: reviewed and remarkable for initial hypoxia Differential diagnosis: Reactive airway disease, pneumonia, pneumothorax, COPD, CHF, infections, cardiac ischemia, pulmonary embolism, musculoskeletal, gastrointestinal, as well as other pathologies. ER treatment provided: See below Diagnostics interpreted by me: ECG: EKG was obtained in the emergency department. Interpretation is sinus rhythm at 88 bpm. PVC was noted. Poor R wave progression was noted. There is no acute ST segment abnormalities noted. This was compared to a tracing from October 25, 2023. No changes were noted. Cardiac Monitoring: An order was placed for continuous cardiac monitoring. The monitor shows a rate of 83 bpm with sinus rhythm. Laboratory studies: As stated above and show below. Imaging studies: See below. Radiographic imaging was reviewed by myself Consultation(s): I discussed this case with Dr. Valente who is on-call for the [facility] group. Past Med/Surg History Problem List Acute hyponatremia (Acute) Edema (Acute) Hypoxia (Acute) Pulmonary edema (Acute) Pneumonia (Acute) Chest pain (Acute) Atrial fibrillation with rapid ventricular response (Acute) Mitral regurgitation S/P ablation of atrial fibrillation S/P ablation of atrial flutter Nonobstructive atherosclerosis of coronary artery Status post transcatheter aortic valve replacement (TAVR) using bioprosthesis Heart failure with preserved ejection fraction Atrial fibrillation with rapid ventricular response Pulmonary hypertension Protein calorie malnutrition Pneumonia Interstitial lung disease no inhaler Mobitz (type) II atrioventricular block PSVT (paroxysmal supraventricular tachycardia) PAF (paroxysmal atrial fibrillation) Tachycardia Occlusion of left vertebral artery TIA (transient ischemic attack) Elevated troponin Dysarthria Left-sided headache (Acute) Non-ST elevation CT (NSTEMI) (Acute) Chest pain (Acute) Closed left hip fracture Encounter for pre-operative examination Closed left hip fracture (Acute) Fall (Acute) Atrial fibrillation (Chronic) Heart disease (Chronic) History of left hip replacement Medical History H/O Hodgkin's lymphoma Neuromuscular disorder Senile osteoporosis Low blood pressure Arthritis Hypothyroidism Hodgkin disease diagnosed at age 27--had radiation and spleenectomy Sleep apnea cpap History of atrial fibrillation follows with Dr. Graves Surgical History S/P TAVR (transcatheter aortic valve replacement) 04/2023 History of esophagogastroduodenoscopy (EGD) History of tooth extraction History of anesthesia reaction woke up once during a colonoscopy History of colonoscopy History of lymph node biopsy malignant--hodgkin History of splenectomy History of cardiac cath 2015 no stents History of cardioversion History of cardiac radiofrequency ablation x2-- "treated for A-fib" Family History Other No family history of adverse response to anesthesia Social History Smoking Status: Former smoker Tobacco Type: Cigarettes Second Hand Exposure: No; Do You Dip or Chew Tobacco: No; Hx Alcohol Use: No Hx Substance Use: No Preferred Language: Nigerian Communication Ability: Effective 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 He is mandaen Current Living Situation: Spouse Feels Safe at Home: Yes Assistive Devices: Raised Toilet Seat and Walker Allergies Allergies Allergy/AdvReac Type Severity Reaction Status Date / Time No Known Allergies Allergy Verified 02/20/23 08:47 Home Meds Home Medications Medication Instructions Recorded Confirmed aspirin 81 mg tablet,delayed 81 mg PO QAM 11/16/18 10/20/23 release levothyroxine 75 mcg tablet 75 mcg PO QAM 11/16/18 10/20/23 cholecalciferol (vitamin D3) 25 1,000 unit PO QAM 05/07/19 10/20/23 mcg (1,000 unit) capsule (Vitamin D3) cyanocobalamin (vitamin B-12) 1,000 mcg PO QAM 05/07/19 10/20/23 1,000 mcg tablet (Vitamin B-12) apixaban 5 mg tablet (Eliquis) 5 mg PO BID 10/20/23 10/20/23 Previous Rx's Medication Instructions Recorded atorvastatin 20 mg tablet 20 mg PO QAM #30 tabs 10/11/23 L.acidop,casei,lactis,rham-B.lact,bam 1 cap PO DAILY #30 caps 10/25/23 625 mg (10 billion cell) capsule (Advanced Probiotic) ipratropium 0.5 mg-albuterol 3 mg 3 ml NEB BIDR #90 mL 10/25/23 (2.5 mg base)/3 mL nebulization soln sodium chloride 7 % for 4 ml NEB BIDR #120 mL 10/25/23 nebulization sotalol 80 mg tablet 40 mg (1/2 x 80 mg) PO BID #60 tabs 10/25/23 Results & Data (ED) Vital Signs Vital Signs - 24 hr 08/30/24 14:04 08/30/24 14:04 08/30/24 14:27 Temperature 36.8 C Temperature Source Oral Pulse Rate 88 89 Pulse Rate from SpO2 Sensor Pulse Rhythm Respiratory Rate 21 Blood Pressure 140/83 Blood Pressure Mean 102 Pulse Oximetry 91 Oxygen Delivery Method Nasal Cannula Nasal Cannula Oxygen Flow Rate 3 3 Sepsis Recent Fever Within 48 Hours No Sepsis New/Unexplained Change in Mental Status N/A Sepsis Action Taken by Nursing No Action Required 08/30/24 14:30 08/30/24 14:33 08/30/24 14:33 Temperature Temperature Source Pulse Rate 88 82 Pulse Rate from SpO2 Sensor Pulse Rhythm Regular Respiratory Rate 26 H 20 Blood Pressure 140/83 Blood Pressure Mean 100 Pulse Oximetry 90 94 94 Oxygen Delivery Method Nasal Cannula Nasal Cannula Nasal Cannula Oxygen Flow Rate 3 2 2 Sepsis Recent Fever Within 48 Hours Sepsis New/Unexplained Change in Mental Status Sepsis Action Taken by Nursing 08/30/24 15:00 Temperature Temperature Source Pulse Rate 83 Pulse Rate from SpO2 Sensor 81 Pulse Rhythm Respiratory Rate 17 Blood Pressure 147/88 H Blood Pressure Mean 107 Pulse Oximetry 100 Oxygen Delivery Method Nasal Cannula Oxygen Flow Rate 3 Sepsis Recent Fever Within 48 Hours Sepsis New/Unexplained Change in Mental Status Sepsis Action Taken by Residential Medications Current Medication List: was personally reviewed by me Laboratory Data Attestation: I reviewed the patient's lab results. 08/30/24 14:31 08/30/24 14:31 Lab Results 08/30/24 08/30/24 08/30/24 Range/Units 14:30 14:31 15:11 WBC 5.20 (4.8-10.8) K/ul RBC 3.28 L (4.70-6.10) M/uL Hgb 10.0 L (14.0-18.0) g/dl Hct 30.9 L (42.0-52.0) % MCV 94.2 (80.0-100.0) fL MCH 30.5 (25.0-34.0) pg MCHC 32.4 (32.0-36.0) g/dL RDW Std Deviation 60.6 H (36.4-46.3) fL RDW Coeff of Reza 17.7 H (11.5-14.5) % Plt Count 251 (130-400) K/uL MPV 11.6 (9.4-12.4) fL Immature Gran % (Auto) 0.4 % Neut % (Auto) 67.8 % Lymph % (Auto) 12.9 % Worth % (Auto) 17.5 % Eos % (Auto) 0.8 % Baso % (Auto) 0.6 % Neut # (Auto) 3.53 (1.40-6.50) K/uL Lymph # (Auto) 0.67 L (1.20-3.40) K/uL Worth # (Auto) 0.91 H (0.11-0.59) K/uL Eos # (Auto) 0.04 (0.00-0.50) K/uL Baso # (Auto) 0.03 (0.00-0.20) K/uL Immature Gran # (Auto) 0.02 (0.01-0.20) K/uL PT 12.3 H (9.0-12.0) Seconds INR 1.1 (0.9-1.1) APTT 27 (21-31) Seconds PTT Ratio 1.0 VBG pH 7.34 L (7.36-7.41) VBG pCO2 71 H (38-50) mmHg VBG pO2 22 mmHg VBG HCO3 38 mmol/L VBG O2 Saturation < 60.0 % VBG Base Excess 9.6 mEq/L Sodium 127 L (136-145) mmol/L Potassium 4.5 (3.5-5.1) mmol/L Chloride 87 L (98-107) mmol/L Carbon Dioxide 39 H (21-32) mmol/L Anion Gap 1 L (3-11) BUN 13 (6-23) mg/dl Creatinine 0.57 L (0.6-1.4) mg/dl Est Cr Clr Drug Dosing 122.4 ml/min eGFR 102.88 BUN/Creatinine Ratio 22.8 H (10-20) Glucose 126 H (70-99(Fasting)) mg/dl Lactate 0.9 (0.4-2.0) mmol/L Calcium 9.0 (8.6-10.3) mg/dl Magnesium 1.9 (1.7-2.4) mg/dl Total Bilirubin 0.8 (0.2-1.0) mg/dl Direct Bilirubin 0.2 (0-0.2) mg/dl AST 33 (13-39) U/L ALT 19 (7-52) U/L Alkaline Phosphatase 69 (34-104) U/L Troponin I High Sens 32.9 H (0-20) pg/ml B-Natriuretic Peptide 1277 H (0-100) pg/ml Total Protein 7.7 (6.0-8.3) gm/dl Albumin 3.9 (3.4-5.0) gm/dl Procalcitonin < 0.02 (0-0.5) ng/ml Urine Color Yellow Urine Appearance Clear (Clear) Urine pH 6.0 (4.5-7.5) Ur Specific [place] 1.010 (1.000-1.030) Urine Protein Trace H (Negative) Urine Glucose (UA) Negative (Negative) Urine Ketones Negative (Negative) Urine Blood Trace H (Negative) Urine Nitrite Negative (Negative) Urine Bilirubin Negative (Negative) Urine Urobilinogen Negative (Negative) Ur Leukocyte Esterase Negative (Negative) Urine WBC (Auto) 0-5 (0-5) /hpf Urine RBC (Auto) 3-5 H (0-2) /hpf U Hyaline Cast (Auto) 0-2 (0-2) /lpf U Epithel Cells (Auto) 0-2 (0-2) /hpf Urine Bacteria (Auto) None Seen (None Seen) Adenovirus (PCR) Not Detected (NotDetected) B. pertussis DNA (PCR) Not Detected (NotDetected) B.parapertussis DNA PCR Not Detected (NotDetected) C. pneumoniae DNA (PCR) Not Detected (NotDetected) Coronavirus OC43 (PCR) Not Detected (NotDetected) Coronavirus HKU1 (PCR) Not Detected (NotDetected) Coronavirus 229E (PCR) Not Detected (NotDetected) SARS-CoV-2 (PCR) Not Detected (NotDetected) Coronavirus NL63 (PCR) Not Detected (NotDetected) Human Metapneumovir PCR Not Detected (NotDetected) Influenza Type A (PCR) Not Detected (NotDetected) Influenza Type B (PCR) Not Detected (NotDetected) M. pneumoniae (PCR) Not Detected (NotDetected) Parainfluenza 1 (PCR) Not Detected (NotDetected) Parainfluenza 2 (PCR) Not Detected (NotDetected) Parainfluenza 3 (PCR) Not Detected (NotDetected) Parainfluenza 4 (PCR) Not Detected (NotDetected) RSV (PCR) Not Detected (NotDetected) Entero/Rhino (PCR) DETECTED A (NotDetected) Administered Medications Discontinued Medications Albuterol (Albut/Ipratrop 3mg/0.5mg Neb 3 Ml Vial) 3 ml NEB NOW STA; Protocol Stop: 08/30/24 14:22 Last Admin: 08/30/24 14:40 Dose: 3 ml Documented By: SUSHIL Furosemide (Furosemide 40 Mg/4 Ml Vial) 80 mg IV ONE ONE Stop: 08/30/24 15:27 Last Admin: 08/30/24 15:40 Dose: 80 mg Documented By: SOWMYA Imaging Data Attestation: I personally reviewed and interpreted this imaging study as follows: My Impression: 1 view chest x-ray was obtained in the emergency department. My interpretation is no free air, interstitial fullness was noted with suggestion of pulmonary edema, final report below. Radiologist's Impression: Chest X-Ray 08/30/24 14:21 EXAM: Radiograph of the Chest 1 View INDICATION: Sepsis TECHNIQUE: Frontal view of the chest. COMPARISON: 10/08/2023 and 10/20/2023 FINDINGS: Lungs and pleural spaces: Moderate to severe diffuse interstitial thickening is similar to the prior exam. There are now infiltrates in both lower lungs left greater than right and small bilateral pleural effusions. No pneumothorax. Heart: Stable enlarged shadow. Aortic valve prosthesis noted. There is dense calcification of the mitral annulus. Mediastinum: Normal contour. Bones/joints: No fracture, erosion or dislocation. Soft tissues: No abnormality noted. No radiopaque foreign body noted. Upper abdomen: No abnormality noted. IMPRESSION: Extensive interstitial and airspace infiltrates with small pleural effusions. Consider CHF and/or pneumonia. Appearance of the chest is similar but disease is worse compared to 10/20/2023. Underlying chronic components probable. ACT 112: N/A Electronically signed by Lenin Sushila 08-30-2024 2:59 PM Discharge Plan Visit Data Chief Complaint: Shortness of Breath/Dyspnea Stated Complaint: Fatigue, edema to legs ED Provider: Mark Rose Discharge Problem: Pulmonary edema, Hypoxia, Edema, Acute hyponatremia Patient Disposition: Being Evaluated by Hospitalist Forms Stand Alone Forms: My [facility] Mobile Armor Prescriptions Prescriptions: No Action aspirin 81 mg Tablet,Delayed Release (Dr/Ec) 81 mg PO QAM levothyroxine 75 mcg tablet 75 mcg PO QAM Rx Instructions: TAKE BEFORE BREAKFAST cyanocobalamin (vitamin B-12) [Vitamin B-12] 1,000 mcg Tablet 1,000 mcg PO QAM cholecalciferol (vitamin D3) [Vitamin D3] 1,000 unit Capsule 1,000 unit PO QAM atorvastatin 20 mg Tablet 20 mg PO QAM Qty: 30 0RF Eliquis 5 mg tablet 5 mg PO BID ipratropium-albuterol 0.5 mg-3 mg(2.5 mg base)/3 mL Solution For Nebulization 3 ml NEB BIDR Qty: 90 0RF sotalol 80 mg Tablet 40 mg PO BID Qty: 60 0RF sodium chloride 7 % Solution For Nebulization 4 ml NEB BIDR Qty: 120 0RF Advanced Probiotic 625 mg (10 billion cell) Capsule 1 cap PO DAILY Qty: 30 0RF Referrals Referrals: Dewayne Pena MD [Primary Care Provider] -
--- OUTSIDE RECORDS SUMMARY | 2024-08-30 14:25 | External Medical Summary | Summary of Care ---
Author Name Unknown Organization [facility] Address [address] [place] [address] Phone [phone] Care Team Providers Care Mattress Stripper Name Role Phone Dewayne Pena MD Primary Care Provider [phone] Encounter Details Date Type Department Care Team (Late st Contact Info) Description 05/12/2024 Orders Only Outcomes Research Department [address] [place], [place] [phone] Kathe May CHRA MyCode Research Other*[id number] Allergies No known active allergiesdocumented as of this encounter (statuses as of 05/12/2024) Medications Cholecalciferol 25 MCG (1000 UT) Oral [...] a large muscle. 0.3 mL 4 Active Levothyroxine Sodium 75 MCG Oral Tablet (Levoxyl) TAKE 1 TABLET BY MOUTH EVERY DAY IN THE MORNING (AT LEAST 30 MIN PRIOR TO BREAKFAST OR OTHER MEDS) 90 Tablet 3 4 Active Tavaborole 5 % External Solution APPLY TO AFFECTED TOENAILS ONCE A DAY FOR 6 MONTHS Active documented as of this encounter (statuses as of 05/12/2024) Active Problems Problem Noted Date Diagnosed Date [...] 2013, Depth unknown, no SLN, Location R jewish Raynaud's disease without gangrene 06/02/2019 Esophageal dysmotility 05/20/2019 JULIUS (obstructive sleep apnea) 05/20/2019 ILD (interstitial lung disease) 05/20/2019 Coronary artery disease invo lving [place] coronary artery of [place] heart without angina pectoris 03/24/2019 Nonrheumatic mitral valve stenosis 03/24/2019 H/O Hodgkin's lymphoma 07/05/2018 Acquired hypothyroidism 07/05/2018 documented as of this encounter (statuses as of 05/12/2024) Resolved Problems Problem Noted Date Diagnosed Date Resolved Date Osteoporotic fracture of left hip 09/28/2022 03/14/2023 Aortic root enlargement 07/07/202204/19 Sinus tachycardia 03/16/2022 03/14/2023 Hx of nonmelanoma skin cancer 03/24/2021 05/14/2023 Overview (03/24/2021): Hx MM date 2013, Depth unknown, no SLN, Location R jewish (still no path in chart, pt confirmed that he had surgery for melanoma at that site and for BCC prior, see below) BCC R forehead 2008 ([facility]) Prediabetes 02/28/2021 02/01/2023 Overview: Per Prediabetes protocol Moderate protein malnutrition 12/15/2019 03/14/2023 Ankylosing spondylitis of cervical region 12/15/2019 07/07/2022 PSVT (paroxysmal supraventri cular tachycardia) 12/15/2019 03/21/2024 Moderate aortic stenosis 03/24/2019 H/O atrial fibrillation with out current medication 07/05/2018 03/14/2023 documented as of this encounter (statuses as of 05/12/2024) Immunizations Name Administration Dates Next Due COVID-19 mRNA, LNP-s, No Pre serve, 2-Dose Series (Moderna) 08/21/2020,07/17/2020 COVID-19, MRNA-LNP, PF, 30 M CG/0.3 mL, 12 YRS AND ABOVE, IM ([facility] 04/10/2024,03/27/2023 COVID-19, mRNA, LNP-s, PF, B ooster, [...] No 03/07/2024 Does the household have a [facility] source of income? (Household - for ages [...] 03/07/2024 Transportation Needs Answer Date Record ed READ ONLY Do you have troubl e getting a ride to medical visits or work? Never True 03/07/2024 Does your family have a hard [...] place to sleep at night? No 03/07/2024 READ ONLY Do you think you a re at risk of becoming homeless? No 03/07/2024 Does your family worry about paying [...] Care Team (Late st Contact Info) Description 05/19/2024 4:00 PM EST Cardiac Studies Cardiac Studies, [facility] 132 [facility] [place] [address] 05/26/2024 1:00 PM EST Office Visit Dermatology [facility] 68 [facility] [place] [phone] Jonnathan House PA-C [address] [place] [address] 07/14/2024 12:00 PM EST Office Visit Pulmonary Medicine, [facility] 132 [facility] [place] [address] Juan Pablo Marsh MD [address] [place] [address] 07/15/2024 1:00 PM EST Imaging Vascular Lab, [facility] 2nd Floor, [place] 132 [facility] [place] [address] 07/23/2024 12:30 PM EST Office Visit Vascular Surgery, [facility] 132 [facility] [place] [address] German Tay MD [address] [place] [address] 08/15/2024 11:30 AM EST Office Visit Cardiology, [facility] 132 [facility] [place] [address] Mike Graves DO 132 [facility] [place] [address] 09/23/2024 1:20 PM EDT Office Visit Family Practice [facility] 132 [facility] [place] [address] Dewayne Pena MD [facility] [place] [address] 10/06/2024 2:20 PM EDT Office Visit Rheumatology [place] [address] [facility] [place] [address] Timo Guzman MD [facility] [place] [address] 01/12/2025 11:40 AM EDT Office Visit Sleep Disorders Ctr [facility] [address] [place] [address] Cara Brantley DO [address] [place] [address] Scheduled Orders Name Type Priority Associated Diagnoses Orde r Schedule MYCODE SUBSEQUENT ADULT Lab Routine MyCode Research Other*[id number] Every 6 Months for 2 Occurrences starting 05/12/2024 until 06/01/2025 Health Maintenance Due Date Last Done Comments [...] this encounter Medical Devices Implanted Type Area Wheel Grinder Device Identifier Shelf Expiration Date Model / Serial / Lot Cath Thermodilution 6fr - [id number] Implanted:Qty: 1 on 03/07/2023 by Armando Beltran MD at [facility] [employer] KRISTYN [id number] 10/10/2024 [id number] / / [id number] Valve Aortic Transcath Fx 34mm - [id number] Implanted:Qty: 1 on 05/03/2023 by Armando Beltran MD at [facility] [employer] [id number] 08/10/2024 EVOLUTFX- 34 / [id number] / [id number] documented as of this encounter Visit Diagnoses Diagnosis MyCode Research Other*[id number] documented in this encounter Advance Directives Documents on File Type Date Recorded Patient Credit Resolution Representative Expl anation POLST 03/06/2022 [place] OR DERS [...] Advance Directives occurred with: Patient Care Teams Mattress Stripper Relationship Specialty Start Date End Date Dewayne Pena MD 132 [facility] [place] [address] PCP - General Family Medicine 04/30/23 documented as of this encounter
--- OUTSIDE RECORDS SUMMARY | 2024-08-30 14:25 | External Medical Summary | Continuity of Care Document ---
Author Name Unknown Organization [facility] [id number] Address [address] [place] [id number] Care Team Providers Care Hide Dyer Name Role Phone Jason Karimi Primary Care Physician [phone] Encounter [facility] [id number] Date(s): 04/08/24 - 04/08/24 [facility] [address] [address] [id number] [address] Encounter Diagnosis Tinea unguium(Discharge Diagnosis) - 04/08/24 Callus(Discharge Diagnosis) - 04/08/24 Peripheral vascular disease(Discharge Diagnosis) - 04/08/24 Venous insufficiency of leg(Discharge Diagnosis) - 04/08/24 Discharge Disposition: Home or Self Care Attending Physician: LORETO Murcia Christina L Referring Physician: DO Karimi Dominic Allergies, Adverse Reactions, Alerts No Known Medication Allergies Assessment and Plan Extracted from: Title:Orthopaedics Office Visit Note Author:Isha Spain DPM, Christina L Date:04/08/24 1.Tinea unguium Recommend for patient to begin daily use of topical Kerydin prescription given today, did briefly discuss oral Lamisil and although I feel it would be helpful given patient's complex medical history will defer prescribing. 2.Callus Area debrided with #15 blade to tolerance, no bleeding or cellulitis noted verbal consent obtained for debridement Recommend moisturizing lotion to feet daily Recommend offloading pads over the area for pressure relief ABN form discussed patient verbalized understanding ABN form signed Recommend follow-up in 6 months Chana Villalobos DPM, spent a total of 25 minutes on this encounter providing the following nyh-qrvk-vc-face and gsax-jw-pxmt activities. Activities Include: 3__ preparing to see the patient (for example, review of tests) _5_ obtaining and/or reviewing separately obtained history _5_ physical exam/evaluation _3_ counseling/educating patient/family/caregiver __ discussion/referral to other healthcare professional _5_ documenting care in the medical record __ independent interpretation of results _2_ communication of results to patient/family/caregiver __ coordination of care 2_ ordering medications and tests Excludes _3 minutes__ time for procedure _callus debridement performed 3.Peripheral vascular disease 4.Venous insufficiency of leg Medications Aspirin Low Dose 81 mg oral tablet, chewable TAKE 1 TABLET BY MOUTH EVERY DAY IN THE MORNING Start Date: 04/08/24 Status: Ordered atorvastatin 20 mg oral tablet Start: 04/08/24 2:30:00 PM EDT Start Date: 04/08/24 Status: Ordered Eliquis 5 mg oral tablet TAKE 1 TABLET BY MOUTH IN THE MORNING AND BEFORE BEDTIME Start Date: 04/08/24 Status: Ordered Kerydin 5% topical solution Start: 04/08/24 2:41:00 PM EDT, 1 appl, topical, Daily, Disp# 10 mL, Refills: 6, Apply to affected toenails once per day for 6 months Start Date: 04/08/24 Stop Date: 09/16/30 Status: Ordered levothyroxine 75 mcg (0.075 mg) oral tablet Start: 04/08/24 2:29:00 PM EDT, Start Date: 04/08/24 Status: Ordered sotalol 80 mg oral tablet Start: 04/08/24 2:29:00 PM EDT Start Date: 04/08/24 Status: Ordered Vitamin B12 Start: 04/08/24 2:30:00 PM EDT Start Date: 04/08/24 Status: Ordered Vitamin D3 Start: 04/08/24 2:30:00 PM EDT Start Date: 04/08/24 Status: Ordered Mental Status 04/08/24 Barriers to Learning one year None evide nt Mandatory Health Literacy Documentation Yes Health Literacy Communication Barriers N ever Primary Language Kinyarwanda Problem List Condition Confirmation Course Effective Dates Status H ealth Status Informant Callus Confirmed Active Tinea unguium Confirmed Active Peripheral vascular disease Confirmed Active Venous insufficiency of leg Confirmed Active Diagnosis Diagnosis Type Effective Dates Health Status Clinical Service Informant Tinea unguium Discharge Diagnosis 04/08/24 Non-Specified Venous insufficiency of leg Discharge Diagnosis 04/08/24 Non-Specified Callus Discharge Diagnosis 04/08/24 Non-Specified Peripheral vascular disease Discharge Diagnosis 04/08/24 Non-Specified Vital Signs Most recent to oldest [Reference Range]: 1 Height 181.5 cm (04/08/24 2:31 PM) Patient Weight 62.8 kg (04/08/24 2:31 PM) Body Mass Index 19.06 kg/m2 (04/08/24 2:31 PM) Social History Social History Type Response Smoking Status Never smoked cigaret jacinto Sex Male Sex Representation Male (finding) Ortho Outpt Note * LORETO Murcia Christina L: PERFORM Event Display: Ortho Outpt Note Authored Date: [id number] Primary Care Provider DO Karimi Dominic Chief Complaint left nail fungus, right foor corn causing pain History of Present Illness Patient is a very [id number]-nydw-kbw male presenting today for initial evaluation of his left foot great toehe notes that he has a fungal toenail present for a number of years. Patient is retired. [facility] Past medical historyheart attackstroke/TIAobstructive pulmonary disease Thao's thyroiditisHodgkin's in 1977. Medicationsreviewed includes aspirin. Past surgical historyAVR in ablations splenectomy cardio conversion and 2 cardiac caths. Allergiesnone. Social historydenies tobacco use denies alcohol use denies chemical dependency. Family historyheart disease and cancer Review of Systems Extremity numbness shortness of breath persistent coughhome oxygenleft ankle joint swelling arthritis fractures dry skin thyroid problems bleeding problems and blood thinner medication Physical Exam Vitals & Measurements HT:181.5cm WT:62.8kg WT:62.800kg(Dosing) BMI:19.06 Problem focused bilateral feet: Dorsalis pedis pulse palpable 1 out of 4,posterior tibial pulseslightly difficult to palpate,significant varicosities presentthere is a largehematomaand area of irregularity associated with patient's severevaricose veindisease, pedal hair is absent,capillary refill timeis less than 3 seconds, skin turgor is good to distal extremities. Gross sensation intact all digitsof both feet There are no open lesions on the legs or feet per sebut history of theseirregularities associated withhematomas and chronic venous insufficiencythere is no drainage from the areas. This is not the main area of concernpatient will be seeing vascular medicine. Callus presentright footfifth digitlateral aspect patient request debridement Callus present submetatarsal 5 left footpatient request debridement Left hallux toenail with severe subungual debristhickening greater than 2 mm dark discolorationand symptoms consistent with onychomycosis. Assessment/Plan 1.Tinea unguium Recommend for patient to begin daily use of topical Kerydin prescription given today, did brieflydiscuss oral Lamisil and although I feel it would be helpful given patient's complex medical history will defer prescribing. 2.Callus Area debrided with #15 blade to tolerance, no bleeding or cellulitis noted verbal consent obtained for debridement Recommend moisturizing lotion to feet daily Recommend offloading pads over the area for pressure relief ABN form discussed patient verbalized understanding ABN form signed Recommend follow-up in 6 months IChana DPM, spent a total of 25 minutes on this encounter providing the following dbj-qfjm-zq-face and bmfz-gp-vuhk activities. Activities Include: 3__ preparing to see the patient (for example, review of tests) _5_ obtaining and/or reviewing separately obtained history _5_ physical exam/evaluation _3_ counseling/educating patient/family/caregiver __ discussion/referral to other healthcare professional _5_ documenting care in the medical record __ independent interpretation of results _2_ communication of results to patient/family/caregiver __ coordination of care 2_ ordering medications and tests Excludes _3 minutes__ time for procedure _callus debridement performed 3.Peripheral vascular disease 4.Venous insufficiency of leg Problem List/Past Medical History Ongoing Callus Peripheral vascular disease Tinea unguium Venous insufficiency of leg Medications apixaban(Eliquis 5 mg oral tablet) aspirin(Aspirin Low Dose 81 mg oral tablet, chewable) atorvastatin(atorvastatin 20 mg oral tablet) cholecalciferol(Vitamin D3) cyanocobalamin(Vitamin B12) levothyroxine(levothyroxine 75 mcg (0.075 mg) oral tablet) sotalol(sotalol 80 mg oral tablet) tavaborole topical(Kerydin 5% topical solution), 1 appl, topical, Daily, 6 refills Allergies No Known Medication Allergies Social History Smoking Status Never smoked cigarettes Recommendations Health Maintenance Pending(in the next year) OverDue Adult Influenza Vaccine due12/16/23and every 1year Due Medicare Annual Wellness Visit due04/08/24and every 1year Satisfied(in the past 1 year) There are no satisfied recommendations within the defined date range Electronic Signature on File Electronically Reviewed/Signed by: Chana Murcia DPM Author Signature Dt/Tm:04/08/2024 02:54 PM Division of Sports Medicine CLR Patient Care team information Care Team Personnel Name: DO Karimi Dominic Position: Referring DIRECT Member Role: Primary Care Provider Address: [address] [place] [address] [place] Care Team Related Persons Name: TRACY JARAMILLO
--- OUTSIDE RECORDS SUMMARY | 2024-08-30 14:25 | External Medical Summary | Summary of Care ---
Author Name Unknown Organization [facility] Address [address] [place] [address] Phone [phone] Care Team Providers Care Toy Assembler Name Role Phone Geovanna Gray MD Primary Care Provider [phone] Reason for Visit * Reason Comments eRx-Medication Refill Encounter Details Date Type Department Care Team (Late st Contact Info) Description 04/19/2024 Refill Family Practice [facility] [address] [place] [address] Geovanna Gray MD [address] [place] [address] Allergies No known active allergiesdocumented as of this encounter (statuses as of 04/20/2024) Medications Medication Sig Dispensed Refills Start Date End Date Status Cholecalciferol 25 MCG (1000 UT) Oral Capsule Take 1 Capsule by mouth in the morning. Active CPAP every night at bedtime . Auto 5-20 cm Active Turmeric Curcumin Oral Capsule Take by mouth 1 Capsule daily . Active Ocuvite Adult Formula Oral Capsule Take by mouth. Active Amoxicillin 500 MG Oral Capsule (Amoxil) Take 4 capsules 1 hour prior to any dental work 4 Capsule 4 06/15/2023 Active Nac 600 600 MG Oral Capsule (Acetylcysteine) Take 1 Capsule by mouth in the morning and 1 Capsule before bedtime. 06/27/2023 Active Atorvastatin Calcium 20 MG Oral Tablet (Lipitor) Take 1 Tablet by mouth in the morning. 90 Tablet 3 10/16/2023 Active Apixaban 5 MG Oral Tablet (Eliquis) Take 1 Tablet by mouth in the morning and 1 Tablet before bedtime. 60 Tablet 11 10/29/2023 Active Saccharomyces boulardii 250 MG Oral Capsule [...] two times per day 90 Tablet 3 02/20/2024 Active Comirnaty 30 MCG/0.3ML Intramuscular Suspension Prefilled Syringe Inject into a large muscle. 0.3 mL 04/10/2024 Active Levothyroxine Sodium 75 MCG Oral Tablet (Levoxyl) TAKE 1 TABLET BY MOUTH EVERY DAY IN THE MORNING (AT LEAST 30 MIN PRIOR TO BREAKFAST OR OTHER MEDS) 90 Tablet 3 04/20/2024 Active Levothyroxine Sodium 75 MCG Oral Tablet (Levoxyl) TAKE 1 TABLET BY MOUTH EVERY DAY IN THE MORNING (AT LEAST 30 MIN PRIOR TO BREAKFAST OR OTHER MEDS) 90 Tablet 01/17/2024 Discontinued documented as of this encounter (statuses as of 04/20/2024) Active Problems Problem Noted Date Diagnosed Date Hospice care patient 03/24/2024 Polymyositis 11/02/2023 Paroxysmal atrial fibrillation 09/14/2023 1st degree AV block 05/05/2023 S/P TAVR (transcatheter aortic valve replacement ) 05/03/2023 BMI less than 19,adult 03/16/2023 Senile osteoporosis 09/28/2022 Protein-calorie malnutrition 07/07/2022 Neuromuscular disorder 07/07/2022 PHT (pulmonary hypertension) 06/02/2021 Hx of melanoma of skin 03/24/2021 Overview: Hx MM date 2013, Depth unknown, no SLN, Location R buddhist Raynaud's disease without gangrene 06/02/2019 Esophageal dysmotility 05/20/2019 JULIUS (obstructive sleep apnea) 05/20/2019 ILD (interstitial lung disease) 05/20/2019 Coronary artery disease invo lving lime coronary artery of lime heart without angina pectoris 03/24/2019 Nonrheumatic mitral valve stenosis 03/24/2019 H/O Hodgkin's lymphoma 07/05/2018 Acquired hypothyroidism 07/05/2018 documented as of this encounter (statuses as of 04/20/2024) Resolved Problems Problem Noted Date Diagnosed Date [...] see below) BCC R forehead 2008 ([facility]) Prediabetes 02/28/2021 02/01/2023 Overview: Per Prediabetes protocol Moderate protein malnutrition 12/15/2019 03/14/2023 Ankylosing spondylitis of cervical region 12/15/2019 07/07/2022 PSVT (paroxysmal supraventri cular tachycardia) 12/15/2019 03/21/2024 Moderate aortic stenosis 03/24/2019 H/O atrial fibrillation with out current medication 07/05/2018 03/14/2023 documented as of this encounter (statuses as of 04/20/2024) Immunizations Name Administration Dates Next Due COVID-19 mRNA, LNP-s, No Pre serve, 2-Dose Series (Moderna) 08/21/2020,07/17/2020 COVID-19, MRNA-LNP, PF, 30 M CG/0.3 mL, 12 YRS AND ABOVE, IM ([employer]-Comirnaty) 04/10/2024,03/27/2023 COVID-19, mRNA, LNP-s, PF, B ooster, [...] No 03/07/2024 Does the household have a ascension macombr source of income? (Household - for ages [...] encounter Miscellaneous Notes * Telephone Encounter - Jannie Mcmahon, [facility] - 04/20/2024 4:21 PM ESTSigned Prescriptions: Disp Refills Levothyroxine Sodium 75 MCG Oral Tablet (L*90 Tab*3 Sig: TAKE 1 TABLET BY MOUTH EVERY DAY IN THE MORNING (AT LEAST 30 MIN PRIOR TO BREAKFAST OR OTHER MEDS)Authorizing Provider: GEOVANNA GRAY User: JANNIE MCMAHON documented in this encounter Plan of Treatment Upcoming Encounters Date Type Department Care Team (Late st Contact Info) Description 04/30/2024 12:50 PM EST Office Visit Vascular Surgery, [facility] [address] [facility] [place] [address] German Tay MD [address] [place] [address] 05/19/2024 4:00 PM EST Cardiac Studies Cardiac Studies, [facility] [address] [facility] [place] [address] 05/26/2024 1:00 PM EST Office Visit Dermatology [facility] [address] [place] [id number] Jonnathan House PA-C [address] [place] [address] 07/14/2024 12:00 PM EST Office Visit Pulmonary Medicine, [facility] [address] [facility] [place] [address] Juan Pabol Marsh MD [address] [place] [address] 08/15/2024 11:30 AM EST Office Visit Cardiology, [facility] [address] [facility] [place] [address] Jannie Graves, [address] [facility] [place] [address] 09/23/2024 1:20 PM EDT Office Visit Family Practice [facility] [address] [facility] [place] [address] Geovanna Gray MD [address] [place] [address] 10/06/2024 2:20 PM EDT Office Visit Rheumatology [facility] [address] [address] Timo Guzman MD [address] [address] Health Maintenance Due Date Last Done Comments [...] this encounter Medical Devices Implanted Type Area Rockboard Lather Device Identifier Shelf Expiration Date Model / Serial / Lot Cath Thermodilution 6fr - [id number] Implanted:Qty: 1 on 03/07/2023 by Armando Beltran MD at [facility] [employer] [id number] 10/10/2024 [id number] / / [id number] Valve Aortic Transcath Fx 34mm - [id number] Implanted:Qty: 1 on 05/03/2023 by Armando Beltran MD at [facility] [employer] [id number] 08/10/2024 [id number] / [id number] / [id number] documented as of this encounter Advance Directives Documents on File Type Date Recorded Patient Director Sterile Processing Expl anation POLST 03/06/2022 [place] DERS [...] Advance Directives occurred with: Patient Care Teams Toy Assembler Relationship Specialty Start Date End Date Geovanna Gray MD [address] [facility] [place] [address] PCP - General Family Medicine 04/30/23 documented as of this encounter
--- OUTSIDE RECORDS SUMMARY | 2024-08-30 14:25 | External Medical Summary | Summary of Care ---
Author Name Unknown Organization [facility] Address [address] [facility] [place] [address] Phone [phone] Care Team Providers Care Receiving Worker Name Role Phone Dewayne Pena MD Primary Care Provider [phone] Reason for Visit * Reason Onset Date Comments Follow Up Pt her for 6 mon follow up, states he had a vein rupture this morning in L foot again for second time this morning. Pt states he had significant blood loss. Pt noted he is on hospice care Medication Administration 03/21/2024 Flu an d/or Pneumo Inj Encounter Details Date Type Department Care Team (Late st Contact Info) Description 03/21/2024 1:20 PM EDT Office Visit [place] [address] [facility] [place] [address] Dewayne Pena MD 132 [facility] [place] [address] Hospice care patient*; Paroxysmal atrial fibrillation (HCC); Nonrheumatic mitral valve stenosis; Coronary artery disease involving g[place] coronary artery of [place] heart without angina pectoris; S/P TAVR (transcatheter aortic valve replacement); ILD (interstitial lung disease) (HCC); H/O Hodgkin's lymphoma; BMI less than 19,adult; Polymyositis (HCC); Need for prophylactic vaccination and inoculation against influenza Allergies No known active allergiesdocumented as of this encounter (statuses as of 03/24/2024) Medications Medication Sig Dispensed Refills Start Date [...] under the tongue in the morning. Active Levothyroxine Sodium 75 MCG Oral Tablet (Levoxyl) TAKE 1 TABLET BY MOUTH EVERY DAY IN THE MORNING (AT LEAST 30 MIN PRIOR TO BREAKFAST OR OTHER MEDS) 90 Tablet 01/17/2024 Active NATURAL SUPPLEMENT Take 1 Tablet by mouth in the morning. Herbal supplement for lungs. Active Sotalol HCl 80 MG Oral Tablet (Betapace) One half tablet by mouth two times per day 90 Tablet 3 02/20/2024 Active documented as of this encounter (statuses as of 03/24/2024) Active Problems Problem Noted Date Diagnosed Date [...] Depth unknown, no SLN, Location R denominational Raynaud's disease without gangrene 06/02/2019 Esophageal dysmotility 05/20/2019 JULIUS (obstructive sleep apnea) 05/20/2019 ILD (interstitial lung disease) 05/20/2019 Coronary artery disease invo lving gila river coronary artery of [place] heart without angina pectoris 03/24/2019 Nonrheumatic mitral valve stenosis 03/24/2019 H/O Hodgkin's lymphoma 07/05/2018 Acquired hypothyroidism 07/05/2018 documented as of this encounter (statuses as of 03/24/2024) Resolved Problems Problem Noted Date Diagnosed Date [...] as of this encounter (statuses as of 03/24/2024) Immunizations Name Administration Dates Next Due COVID-19 mRNA, LNP-s, No Pre serve, 2-Dose Series (Moderna) 08/21/2020,07/17/2020 COVID-19, MRNA-LNP, 23-24, P F, 30 MCG/0.3 mL, 12 YRS AND ABOVE, IM [facility] 03/27/2023 COVID-19, mRNA, LNP-s, PF, B ooster, [...] Sign Reading Time Taken Comments Blood Pressure 94/52 03/21/2024 1:14 PM EDT Pulse 80 03/21/2024 1:14 PM EDT Temperature 36.6 C (97.8 F) 03/21/2024 1:14 PM ED T Respiratory Rate 18 03/21/2024 1:14 PM EDT Oxygen Saturation 97% 03/21/2024 1:14 PM EDT Inhaled Oxygen Concentration - - Weight 60.8 kg (134 lb) 03/21/2024 1:14 PM EDT Height 185.4 cm (6' 1") 03/21/2024 1:14 PM EDT Body Mass Index 17.68 03/21/2024 1:14 PM EDT documented in this encounter Functional Status Functional Status Response Date of Assess ment Do you have serious difficul ty walking or climbing stairs? (5 years old or older) No 05/04/2023 documented as of this encounter Progress Notes * Dewayne Pena MD - 03/24/2024 3:16 PM EDT SUBJECTIVE: Guido Daley is a 73 year old male. Chief Complaint Patient presents with Follow Up Pt her for 6 month follow up, states he had a vein rupture this morning in L foot again for second time this morning. Pt states he had significant blood loss. Pt noted he is on hospice care Medication Administration Flu and/or Pneumo Inj HPI: Medically complex but overall stable 73 year old male. Now on hospice but continues to attend regular appointments with myself and the specialists. Patient Active Problem List Diagnosis H/O Hodgkin's lymphoma Acquired hypothyroidism Coronary artery disease involving g[place] coronary artery of [place] heart without angina pectoris Nonrheumatic mitral valve stenosis Esophageal dysmotility JULIUS (obstructive sleep apnea) ILD (interstitial lung disease) ([facility]) Raynaud's disease without gangrene Hx of melanoma of skin PHT (pulmonary hypertension) ([facility]) Protein-calorie malnutrition (HCC) Neuromuscular disorder (HCC) Senile osteoporosis BMI less than 19,adult S/P TAVR (transcatheter aortic valve replacement) 1st degree AV block Paroxysmal atrial fibrillation ([facility]) Polymyositis ([facility]) Hospice care patient Current Outpatient Medications Medication Sig Dispense Refill [...] Tablet under the tongue in the morning. Levothyroxine Sodium 75 MCG Oral Tablet (Levoxyl) TAKE 1 TABLET BY MOUTH EVERY DAY IN THE MORNING (AT LEAST 30 MIN PRIOR TO BREAKFAST OR OTHER MEDS) 90 Tablet 0 NATURAL SUPPLEMENT Take 1 Tablet by mouth in the morning. Herbal supplement for lungs. Sotalol HCl 80 MG Oral Tablet (Betapace) One half tablet by mouth two times per day 90 Tablet 3 No current facility-administered medications for this visit. Allergy: Review of patient's allergies indicates: No Known Allergies OBJECTIVE: BP 94/52 | Pulse 80 | Temp 36.6 C (97.8 F) (Tympanic) | Resp 18 | Ht 1.854 m (6' 1") | Wt 60.8 kg (134 lb) | SpO2 97% | BMI 17.68 kg/m | BSA 1.77 m Gen: underweight, no distress Lungs: ctab Heart: rrr, no mrg Ext: no c/c/e ASSESSMENT AND PLAN: (Z51.5) Hospice care patient (primary encounter diagnosis) Plan: continue supportive care (I48.0) Paroxysmal atrial fibrillation (HCC) Plan: continue rx; follows with cardiology (I34.2) Nonrheumatic mitral valve stenosis Plan: see above (I25.10) Coronary artery disease involving [place] coronary artery of [place] heart without angina pectoris Plan: continue medical mgmt (Z95.2) S/P TAVR (transcatheter aortic valve replacement) Plan: stable (J84.9) ILD (interstitial lung disease) ([facility]) Plan: stable (Z85.71) H/O Hodgkin's lymphoma Plan: noted (Z68.1) BMI less than 19,adult Plan: stable (M33.20) Polymyositis ([facility]) Plan: stable (Z23) Need for prophylactic vaccination and inoculation against influenza Plan: INFLUENZA VAC., TRIVALENT, HD, PF, 65 AND ABOVE, 0.5 ML IM (FLUZONE HD) Follow up as needed. No other complaints were offered at this time. Dewayne Pena MD * Shavonne Alas LPN - 03/21/2024 1:18 PM EDT PRE - ADMINISTRATION DOCUMENTATION Are you experiencing any cold symptoms or fever? No Have you had Guillain-[place] Syndrome (an illness that causes paralysis) within the last 6 weeks? No Have you had the flu shot in the past? YES Have you ever had a reaction to the flu shot? No Shavonne Alas LPN, 03/21/2024 1:18 PM Immunization Administration Documentation Time Out Procedure Performed: Yes Patient Identified (Ask Name/Date of ): Yes Does the patient have a fever greater than 101 degrees today? No Patient allergic to latex? No VFC Stock: No Immunization(s) verified: Yes, Immunization Name: Flu, VIS Sheet(s) given: Yes Verified Side and Site: Yes Verified Shot(s) with Parent(s)/Patient: Yes documented in this encounter Nursing Notes * Shavonne Alas LPN - 03/21/2024 1:14 PM EDT The patient has been properly identified by confirmation of name and date of . Chief Complaint Patient presents with Follow Up Pt her for 6 month follow up, states he had a vein rupture this morning in L foot again for second time this morning. Pt states he had significant blood loss. Pt noted he is on hospice care documented in this encounter Plan of Treatment Upcoming Encounters Date Type Department Care Team ([facility] st Contact Info) Description 04/15/2024 10:40 AM EDT Office Visit [place]at[place] [address] [place] [address] Jonnathan House PA-C [address] [place], [place] [address] [address] 05/19/2024 4:00 PM EST Cardiac Studies Cardiac Studies, [facility] [address] [facility] [place] [address] 07/14/2024 12:00 PM EST Office Visit Pulmonary Medicine, [facility] [address] [facility] [place] [address] Juan Pablo Marsh [facility] [address] [facility] [address] 08/15/2024 11:30 AM EST Office Visit Cardiology, [facility] [address] [facility] [place] [address] Mike Graves DO 132 [facility] [place] [address] 09/23/2024 1:20 PM EDT Office Visit Family Practice [facility] [address] [facility] [place] [address] Dewayne Pena MD 132 [facility] [place] [address] 10/06/2024 2:20 PM EDT Office Visit Rheumatology [address] [place] [address] Timo Guzman MD [address] [place] [address], [place] [address] Health Maintenance Due Date Last Done Comments Meningitis B Vaccine (Bexsero/Trumemba) (1 of 4 - Increased Risk) 09/23/1960 Adult Wellness Visit 06/22/2022 06/22/2021 *BISPHONATE OR OTHER ACCEPTA BLE MEDICATION NEEDED FOR OSTEOPOROSIS (REFER TO SMARTSET #[id number]) 09/30/2022 Depression Screening 03/06/2023 03/06/2022 COVID-19 Vaccine (2023-2 5 season) 2024 03/27/2023, 11/09/2022, 03/10/2022, Additional history exists TSH 01/17/2025 01/18/2024, 12/17, 12/07/2021, Additional history exists Cologuard Discontinued 07/22/2021, 06/19, 07/13/2021 Colorectal Cancer Screening Discontinued Zoster Vaccines Completed 08/30/2021, 06/13/2019 Influenza Vaccine (FLU shot) Completed 09/2023, 03/16/2023, 04/07/2022, Additional history exists Colonoscopy Discontinued Fecal Occult Blood Test Discontinued Sigmoidoscopy Discontinued documented as of this encounter Medical Devices Implanted Type Area Mining Speculator Device Identifier Shelf Expiration Date Model / Serial / Lot Cath Thermodilution 6fr - [id number] Implanted:Qty: 1 on 03/07/2023 by Armando Beltran MD at [facility] [place] [employer] [employer] K[place]ST[place] [id number] 10/10/2024 [id number] / / [id number] Valve Aortic Transcath Fx 34mm - [id number] Implanted:Qty: 1 on 05/03/2023 by Armando Beltran MD at [facility] [place] [employer] [id number] 08/10/2024 [id number] / [id number] / [id number] documented as of this encounter Visit Diagnoses Diagnosis Hospice care patient- Primary Encounter for palliative care Paroxysmal atrial fibrillation (HCC) Atrial fibrillation Nonrheumatic mitral valve stenosis Coronary artery disease involving g[place] coronary artery of [place] heart without angina pectoris S/P TAVR (transcatheter aortic valve replacement) Heart valve replaced by other means ILD (interstitial lung disease) (HCC) Postinflammatory pulmonary fibrosis H/O Hodgkin's lymphoma Personal history of Hodgkin's disease BMI less than 19,adult Body Mass Index less than 19, adult Polymyositis (HCC) Polymyositis Need for prophylactic vaccination and inoculation against influenza documented in this encounter Advance Directives Documents on File Type Date Recorded Patient Business Intelligence Engineer Expl anation POLST 03/06/2022 [place] [facility] DERS FOR LIFE-SUSTAINING TREATMENT POLST 12/13/2021 [place] [facility] [...] Advance Directives occurred with: Patient Care Teams Receiving Worker Relationship Specialty Start Date End Date Dewayne Pena MD [address] [place] [address] PCP - General Family Medicine 04/30/23 documented as of this encounter
--- OUTSIDE RECORDS SUMMARY | 2024-08-30 14:25 | External Medical Summary | Summary of Care ---
Author Name Unknown Organization [facility] Address [address] [place] [address] Phone [phone] Care Team Providers Care Director Athletic Name Role Phone Dewayne Pena MD Primary Care Provider [phone] Reason for Visit * Reason Comments NEW PATIENT * Evaluate & Treat - Unlimited Visits (Within 30 days (routine)) - Authorized Specialty Diagnoses / Procedures Referred By Conttoo t Referred To Contact Vascular Surgery / Cardiovascular Surgery Diagnoses Varicose veins of lower extremity, unspecified laterality, unspecified whether complicated Dewayne Pena MD [address] [place] [address] Phone: tel: fax: Referral ID Status Reason Start Date Expiration Date Visits Requested Visits Authorized [id number] Authorized Specialty Services Required 03/25/2024 [id number] Encounter Details Date Type Department Care Team (Late st Contact Info) Description 04/30/2024 12:50 PM EST Office Visit Vascular Surgery, [facility] [address] [place] [address] German Tay MD [address] [place] [address] Varicose veins of leg with complications*; Venous insufficiency; Spider veins; Hemorrhage of varicose veins of left lower extremity Allergies No known active allergiesdocumented as of this encounter (statuses as of 04/30/2024) Medications Cholecalciferol 25 MCG (1000 UT) Oral [...] as of this encounter (statuses as of 04/30/2024) Active Problems Problem Noted Date Diagnosed Date [...] Depth unknown, no SLN, Location R caodaism Raynaud's disease without gangrene 06/02/2019 Esophageal dysmotility 05/20/2019 JULIUS (obstructive sleep apnea) 05/20/2019 ILD (interstitial lung disease) 05/20/2019 Coronary artery disease invo lving [place] coronary artery of [place] heart without angina pectoris 03/24/2019 Nonrheumatic mitral valve stenosis 03/24/2019 H/O Hodgkin's lymphoma 07/05/2018 Acquired hypothyroidism 07/05/2018 documented as of this encounter (statuses as of 04/30/2024) Resolved Problems Problem Noted Date Diagnosed Date [...] as of this encounter (statuses as of 04/30/2024) Immunizations Name Administration Dates Next Due COVID-19 mRNA, LNP-s, No Pre serve, 2-Dose Series (Moderna) 08/21/2020,07/17/2020 COVID-19, MRNA-LNP, PF, 30 M CG/0.3 mL, 12 YRS AND ABOVE, IM ([facility]) 04/10/2024,03/27/2023 COVID-19, mRNA, LNP-s, PF, B ooster, [...] Sign Reading Time Taken Comments Blood Pressure 108/62 04/30/2024 12:57 PM EST Pulse 87 04/30/2024 12:57 PM EST Temperature 35.7 C (96.3 F) 04/30/2024 12:[address] Respiratory Rate - - Oxygen Saturation - - Inhaled Oxygen Concentration - - Weight 63.2 kg (139 lb 6.4 oz) 04/30/2024 12:57 PM EST Height - - Body Mass Index 18.39 03/21/2024 1:14 PM EDT documented in this encounter Functional Status * Do you have serious difficulty walking or climbing stairs? (5 years old or older) Answer Date of Assessment Author No 05/04/2023 1:22 PM EST Mary Gee MSW documented as of this encounter Progress Notes * Zach Zayas PA-C - 04/30/2024 12:50 PM EST Images from the original note were not included. Date of Service: 04/30/2024 1:05 PM Guido Daley is a 73 year old male. Patient being seen in consultation at the request of Dewayne Pena MD Chief Complaint: New pt, varicose veins His , Mattie, was present via cell phone connection HPI: Remote smoker with JULIUS, Raynaud's disease, Pulm HTN, ILD, Bronchiectasis, Mitral stenosis/regurg, Aortic valve stenosis (s/p TAVR), remote Hodgkin's, CAD, AFib (s/p Ablation, remains on Eliquis and Sotalol), PSVT, Aortic root enlargement (4.1 cm), BMI under 20 who as of Jan 2024, pt was on hospice care following the TAVR, which was complicated by pneumonia VARICOSE VEINS: Patient reports varicose veins in bilateral extremity. Patient reports a multiple significant hemorrhages from a ruptured superficial varicosity, @ least 5 times The patient has NOT worn compression stockings for more than 3 months. Clinical Classification [...] fibrillation (HCC) Polymyositis (HCC) Hospice care patient Past Medical History: Diagnosis Date Atrial fibrillation (HCC) BMI less than 19,adult 03/16/2023 Bronchiectasis (HCC) Cardiac arrhythmia Coronary artery disease involving [place] coronary artery of [place] heart without angina pectoris 03/24/2019 Hodgkin's disease (HCC) 1977 s/p radiation Hx of melanoma of skin 03/24/2021 Hx MM date 2013, Depth unknown, no SLN, Location R caodaism ILD (interstitial lung disease) (HCC) Moderate aortic [...] [place] [facility] [place], FLEXIBLE, DIAGNOSTIC 05/21/2019 reflux / [facility] MUSCLE BIOPSY, DEEP Left 04/11/2022 BIOPSY MUSCLE DEEP performed by Sadiq Kennedy MD at OR [facility] REMOVAL OF SPLEEN, TOTAL 1978 Due to Hodgkin's disease REPLACE AORTIC VALVE, PERCUTANEOUS FEMORAL Bilateral 05/03/2023 REPLACE AORTIC VALVE, PERCUTANEOUS FEMORAL performed by Armando Beltran MD [place] [facility] REPLACE AORTIC VALVE, PERCUTANEOUS FEMORAL Bilateral 05/03/2023 REPLACE AORTIC VALVE, PERCUTANEOUS FEMORAL performed by Cisco Herrera MD, PhD at [facility] TOTAL HIP REPLACEMENT & PROSTHESIS Left 11/28/2021 Family History Problem Relation Name Age of Onset Breast Cancer Mother Other (Natural causes) Mother age 98 Lung Disorder Father Pulm fibrosis-was a member of parliament- age 95 Heart attack Father [place] x 2 Other (Parathyroid problems) Sister Cherise [...] date: 06/18/1967 Quit date: 06/18/1977 Years since quittin.8 Smokeless tobacco: Never Vaping Use Vaping status: [...] (Adult - for ages 18 years and over):Never True Does your family have a hard time [...] Stability Do you currently live in a care home or have no steady place to sleep at night? (Adult - for ages 18 years and over): No Do you think you are at risk of becoming homeless? (Adult - for ages 18 years and over): No Does your family worry about paying for [...] Negative for chest pain, palpitations, angina or SC Pulmonary: Chronic CLANCY, has an oxygenator for when working @ home Neurological: Negative for stroke, TIA, amaurosis fugax All other systems negative except for those noted above and in the history of present illness (HPI). GENERAL MULTI-SYSTEM PHYSICAL EXAM: VITAL SIGNS: BP 108/62 (BP Site: Left Arm, BP Position: Sitting, BP Cuff Size: Regular) | Pulse 87 | Temp 35.7 C (96.3 F) (Tympanic) | Wt 63.2 kg (139 lb 6.4 oz) | BMI 18.39 kg/m | BSA 1.8 m GENERAL MULTI-SYSTEM PHYSICAL EXAM:GENERAL: Normal grooming habits, no acute distress, and appears stated age. NECK: Chronic anterior flexion of neck RESPIRATORY: respiratory effort normal and distant BS, insp wheeze. CARDIOVASCULAR: no edema and Varicosities present B.L anterior tibial and medial calves, left more [...] normal, pupils normal, and irises normal. NEUROLOGIC: Cranial nerves intact, Motor function intact, and Sensory exam intact PULSE SCALE: Carotid Right:----Bruit: No Left:----Bruit: No Radial Right: 3 Left: 3 Popliteal Right: 3 Left: 3 Dorsalis Pedis Right: 3 Left: 3 Posterior Tibial Right: 3 Left: 3 PULSE SCALE: 4=Aneurysmal; 3=Normal; 2=Diminished; 1=Barely Palpable; 0=Absent DIAGNOSTIC STUDIES: 04/11/23 CTA C/A/P: 2.2 cm infrarenal abd aorta 03/18/21 Carotid Duplex: <50% ICA stenosis, ante verts 12/14/18 AAA screen: 2.1 cm infrarenal abd aorta The above vascular lab and CT scan images were directly visualized and independently interpreted byme on 04/21/2024 with results as above. Cardiac Studies: LABS: Lab Results Component Value Date/Time CREATININE - [facility] 0.7 10/26/2023 06:03 AM CREATININE - [facility] 0.7 06/15/2023 01:13 PM CREATININE - [facility] 0.6 05/05/2023 05:46 AM CREATININE - [facility] 0.9 06/27/2019 02:05 PM CREATININE - [facility] 0.8 05/13/2019 03:45 PM CREATININE - [facility] 0.8 01/30/2019 08:25 AM Lab Results Component Value Date/Time LDL CHOLESTEROL (CALCULATED) - YESIKA 83 01/19/2023 11:03 AM LDL CHOLESTEROL (CALCULATED) - JAYANTER 55 12/26/2018 08:25 AM Lab Results Component Value Date/Time HEMOGLOBIN A1C - YESIKA 6.1 (H) 06/02/2021 11:52 AM The above clinical labs were reviewed by me on 04/21/2024. IMPRESSIONS: Spontaneous bleeding episodes from large LLE varicose veins Former smoker JULIUS, on CPAP Raynaud's disease Pulm HTN (PA systolic 56 on 2023 TTe) ILD Bronchiectasis Mitral valve regurg, mild on 2023 TTe Aortic valve stenosis (s/p TAVR) w/ mod-severe perivalvular AI on 2023 TTe Moderate-severe TR, on 2023 TTe Remote Hodgkin's CAD Hypothyroidism AFib (s/p Ablation, remains on Eliquis and Sotalol) PSVT Aortic root enlargement (4.1 cm) BMI under 20 As of Jan 2024, pt on hospice care PLAN: The patient was counseled regarding the pathophysiology and the natural history of varicose veins/venous insufficiency, as well as the interventional and noninterventional treatment options [id number] - 30 mm knee high compression stockings, leg elevation, and a regular walking program. Continue ASA 81 mg for platelet inhibition/atherosclerosis/CAD Continue Lipitor 20 mg for pleiotropic benefits of statins Applied DS Tubi-sock boarder with today's visit Patient to do daily moisturizing of both legs and feet RTC 3 months, will get insuff duplex prior to next visit Due to his complex medical history, we would likely only offer VenaSeal procedure to the patient The patient was seen and examined with Sp Tay MD. Zach Zayas PA-C Section of Vascular [place] [address] [phone] I have reviewed the advanced practitioner's documentation on the date of service referenced in note, and I agree with, and take responsibility for the plan of care. Mr. Daley presents with symptomatic varicose veins in the LLE. Bleeding from varicose vein in the dorsal foot on the left. Kim phlebitica in BLE. Large varicose veins in bilateral lower extremities. No hx of blood clots. Plan on compression, moisturization of skin. RTC in 3 months with an insufficiency study, or sooner if bleeding returns. German Tay MD Vascular Surgeon Department of Vascular Surgery [facility] documented in this encounter Nursing Notes * Kimmie Wilkinson CMA - 04/30/2024 1:00 PM EST Reviewed the option of transferring scripts to [facility] pharmacy with patient and / or family. Patient stated no change in medications. Patient was instructed to not get up on the exam table/exam chair until directed and assisted by their provider; patient is to remain seated in the chair/ wheelchair/ exam table/ exam chair for fall prevention and safety reasons. Patient is aware to have assistance to step down off exam table/exam chair with personnel. Patient voiced full comprehension of instructions. Kimmie Wilkinson CMA documented in this encounter Plan of Treatment Upcoming Encounters Date Type Department Care Team (Late st Contact Info) Description 05/19/2024 4:00 PM EST Cardiac Studies Cardiac Studies, [facility] [address] [facility] [place] [address] 05/26/2024 1:00 PM EST Office Visit Dermatology [address] [id number] Jonnathan House PA-C [address] [place] [address] 07/14/2024 12:00 PM EST Office Visit Pulmonary Medicine, [facility] [address] [facility] [place] [address] Juan Pablo Marsh MD [address] [place] [address] 07/15/2024 1:00 PM EST Imaging Vascular Lab, [facility] II 2nd Floor, [place] [address] [facility] [place] [address] 07/23/2024 12:30 PM EST Office Visit Vascular Surgery, [facility] [address] [facility] [place] [address] German Tay MD [address] [place] [address] 08/15/2024 11:30 AM EST Office Visit Cardiology, [facility] [address] [facility] [place] [address] Mike Graves DO [address] [address] 09/23/2024 1:20 PM EDT Office Visit Family Practice [facility] [address] [facility] [place] [address] Dewayne Pena MD [address] [place] [address] 10/06/2024 2:20 PM EDT Office Visit Rheumatology [address] [place], [place] [address] Timo Guzman MD [address] [place] [address] [place], [place] [address] Scheduled Orders Name Type Priority Associated Diagnoses Orde r Schedule VASC DUPLEX VENOUS INSUFFICIENCY COMPLETE BILAT LE Medical Imaging Routine Varicose veins of leg with complications Venous insufficiency Spider veins Hemorrhage of varicose veins of left lower extremity Ordered: 04/30/2024 Health Maintenance Due Date Last Done Comments [...] this encounter Medical Devices Implanted Type Area Vp Project Device Identifier Shelf Expiration Date Model / Serial / Lot Cath Thermodilution 6fr - [id number] Implanted:Qty: 1 on 03/07/2023 by Armando Beltran MD at [facility] [employer] KRIST[place] [id number] 10/10/2024 [id number] / / [id number] Valve Aortic Transcath Fx 34mm - [id number] Implanted:Qty: 1 on 05/03/2023 by Armando Beltran MD at [facility] [employer] [id number] 08/10/2024 [id number] / [id number] / [id number] documented as of this encounter Visit Diagnoses Diagnosis Varicose veins of leg with complications- Primary Varicose veins of lower extremities with other complications Venous insufficiency Unspecified venous (peripheral) insufficiency Spider veins Nevus, non-neoplastic Hemorrhage of varicose veins of left lower extremity documented in this encounter Advance Directives Documents on File Type Date Recorded Patient 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
--- OUTSIDE RECORDS SUMMARY | 2024-08-30 14:25 | External Medical Summary | Summary of Care ---
Author Name Unknown Organization [facility] Address [address] [place] [address] Phone [phone] Care Team Providers Care Loan Clerk Name Role Phone Dewayne Pena MD Primary Care Provider [phone] Encounter Details Date Type Department Care Team ([facility] Contact Info) Description 04/10/2024 2:15 PM EDT Immunization Pharmacy [address] [phone] [place] [facility] [address] [address] Allergies No known active allergiesdocumented as of this encounter (statuses as of 04/10/2024) Medications Medication Sig Dispensed Refills Start Date [...] a large muscle. 0.3 mL 04/10/2024 Active documented as of this encounter (statuses as of 04/10/2024) Active Problems Problem Noted Date Diagnosed Date [...] disease) 05/20/2019 Coronary artery disease invo lving [place] coronary artery of [place] heart without angina pectoris 03/24/2019 Nonrheumatic mitral valve stenosis 03/24/2019 H/O Hodgkin's lymphoma 07/05/2018 Acquired hypothyroidism 07/05/2018 documented as of this encounter (statuses as of 04/10/2024) Resolved Problems Problem Noted Date Diagnosed Date [...] as of this encounter (statuses as of 04/10/2024) Immunizations Name Administration Dates Next Due COVID-19 mRNA, LNP-s, No Pre serve, 2-Dose Series (Moderna) 08/21/2020,07/17/2020 COVID-19, MRNA-LNP, 23-24, P F, 30 MCG/0.3 mL, 12 YRS AND ABOVE, IM (Outsmart-Comirnaty) 03/27/2023 COVID-19, MRNA-LNP, 24-25, P R, 30MCG/0.3ML, IM, 12YRS AND ABOVE (Blend-Comirnaty) 04/10/2024 COVID-19, mRNA, LNP-s, PF, B ooster, 100mcg/0.5mg [...] Upcoming Encounters Date Type Department Care Team ([facility] Contact Info) Description 04/10/2024 2:15 PM EDT Immunization [facility] [place] [address] [place] [address] Jorge Luis Alvarezid19 Vaccine [facility] [address] [place] [address] [place] [id number] Arrived 04/15/2024 10:40 AM EDT Office Visit Dermatology [facility] [place] [address] [facility] [place] [phone] Jonnathan House PA-C [address] [place] [address] 04/30/2024 12:50 PM EST Office Visit Vascular Surgery, [facility] [address] [facility] [place] [address] German Tay MD [address] [place] [address] 05/19/2024 4:00 PM EST Cardiac Studies Cardiac Studies, [facility] [address] [facility] [address] 07/14/2024 12:00 PM EST Office Visit Pulmonary Medicine, [facility] [address] [facility] [place] [address] Juan Pablo Marsh MD [address] [facility] [place] [address] 08/15/2024 11:30 AM EST Office Visit Cardiology, [facility] [address] [place] [address] Mike Graves DO [address] [place] [address] 09/23/2024 1:20 PM EDT Office Visit Family Practice [facility] [address] [facility] [place] [address] Dewayne Pena MD [address] [facility] [place] [address] 10/06/2024 2:20 PM EDT Office Visit Rheumatology [address] [place], [place] [address] Timo Guzman MD [facility] [place] [address] Health Maintenance Due Date Last Done Comments [...] this encounter Medical Devices Implanted Type Area Class C Truck Driver Device Identifier Shelf Expiration Date Model / Serial / Lot Cath Thermodilution 6fr - [id number] Implanted:Qty: 1 on 03/07/2023 by Armando Beltran MD at [facility] [employer] [id number] 10/10/2024 [id number] / / [id number] Valve Aortic Transcath Fx 34mm - [id number] Implanted:Qty: 1 on 05/03/2023 by Armando Beltran MD at [facility] [employer] [id number] 08/10/2024 [id number] / [id number] / [id number] documented as of this encounter Advance Directives Documents on File Type Date Recorded 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
[2024-08-30] MEDS: ALBUT/IPRATROP 3MG/0.5MG NEB 3 ML VIAL NEB STA (14:40)
[2024-08-30 14:50] LABS: Base Excess VBG 9.6 mEq/L; HCO3 VBG 38 mmol/L; Oxygen Saturation VBG < 60.0 %; PCO2 VBG 71 mmHg (38-50); PO2 VBG 22 mmHg; pH VBG 7.34 (7.36-7.41)
[2024-08-30 14:59] LABS: Basophils # (auto) 0.03 K/uL (0.00-0.20); Basophils % (auto) 0.6 %; Eosinophils # (auto) 0.04 K/uL (0.00-0.50); Eosinophils % (auto) 0.8 %; Hematocrit (blood only) 30.9 % (42.0-52.0); Immature Granulocytes # (auto) 0.02 K/uL (0.01-0.20); Immature Granulocytes % (auto) 0.4 %; Lymphocytes # (auto) 0.67 K/uL (1.20-3.40); Lymphocytes % (auto) 12.9 %; Mean Corpuscular Hemoglobin 30.5 pg (25.0-34.0); Mean Corpuscular Hgb Conc 32.4 g/dL (32.0-36.0); Mean Corpuscular Volume 94.2 fL (80.0-100.0); Mean Platelet Volume 11.6 fL (9.4-12.4); Monocytes # (auto) 0.91 K/uL (0.11-0.59); Monocytes % (auto) 17.5 %; Neutrophils # (auto) 3.53 K/uL (1.40-6.50); Neutrophils % (auto) 67.8 %; Platelet Count 251 K/uL (130-400); RDW Coefficient of Variation 17.7 % (11.5-14.5); RDW Standard Deviation 60.6 fL (36.4-46.3); Red Blood Count 3.28 M/uL (4.70-6.10)
--- NOTE | 2024-08-30 15:00 | XRay Report ---
EXAM: Radiograph of the Chest 1 View INDICATION: Sepsis TECHNIQUE: Frontal view of the chest. COMPARISON: 10/08/2023 and 10/20/2023 FINDINGS: Lungs and pleural spaces: Moderate to severe diffuse interstitial thickening is similar to the prior exam. There are now infiltrates in both lower lungs left greater than right and small bilateral pleural effusions. No pneumothorax. Heart: Stable enlarged shadow. Aortic valve prosthesis noted. There is dense calcification of the mitral annulus. Mediastinum: Normal contour. Bones/joints: No fracture, erosion or dislocation. Soft tissues: No abnormality noted. No radiopaque foreign body noted. Upper abdomen: No abnormality noted. IMPRESSION: Extensive interstitial and airspace infiltrates with small pleural effusions. Consider CHF and/or pneumonia. Appearance of the chest is similar but disease is worse compared to 10/20/2023. Underlying chronic components probable. ACT 112: N/A Electronically signed by Sushila Phelps 08-30-2024 2:59 PM
[2024-08-30 15:13] LABS: Albumin Level 3.9 gm/dl (3.4-5.0); BUN Creatinine Ratio 22.8 (10-20); Bilirubin Direct 0.2 mg/dl (0-0.2); Bilirubin,Total 0.8 mg/dl (0.2-1.0); Creatinine Clr Calc Pharmacy 122.4 ml/min; Magnesium 1.9 mg/dl (1.7-2.4); Potassium 4.5 mmol/L (3.5-5.1); Total Protein 7.7 gm/dl (6.0-8.3)
[2024-08-30 15:20] LABS: Troponin I High Sensitivity 32.9 pg/ml (0-20)
[2024-08-30 15:25] LABS: INR 1.1 (0.9-1.1); Partial Thromboplastin Time 27 Seconds (21-31); Prothrombin Time 12.3 Seconds (9.0-12.0)
[2024-08-30 15:32] LABS: Adenovirus PCR Not Detected (NotDetected); Bordetella parapertussis PCR Not Detected (NotDetected); Bordetella pertussis PCR Not Detected (NotDetected); Chlamydia pneumoniae PCR Not Detected (NotDetected); Coronavirus 229E PCR Not Detected (NotDetected); Coronavirus CoV-2 (COVID19)PCR Not Detected (NotDetected); Coronavirus HKU1 PCR Not Detected (NotDetected); Coronavirus NL63 PCR Not Detected (NotDetected); Coronavirus OC43PCR Not Detected (NotDetected); Human Metapneumovirus PCR Not Detected (NotDetected); Influenza A PCR Not Detected (NotDetected); Influenza B PCR Not Detected (NotDetected); Mycoplasma pneumoniae PCR Not Detected (NotDetected); Parainfluenza Virus 1 PCR Not Detected (NotDetected); Parainfluenza Virus 2 PCR Not Detected (NotDetected); Parainfluenza Virus 3 PCR Not Detected (NotDetected); Parainfluenza Virus 4 PCR Not Detected (NotDetected); Respiratory Syncytial VirusPCR Not Detected (NotDetected); Rhinovirus/Enterovirus PCR DETECTED (NotDetected)
[2024-08-30 15:35] LABS: Appearance Urine Clear (Clear); Bacteria Urine Automated None Seen (None Seen); Bilirubin Urine Negative (Negative); Blood Urine Trace (Negative); Cast Urine Automated 0-2 /lpf (0-2); Color Urine Yellow; Epithelial Cell Urine Auto 0-2 /hpf (0-2); Glucose Urine UA Negative (Negative); Ketones Urine Negative (Negative); Leukocyte Esterase Urine Negative (Negative); Nitrite Urine Negative (Negative); Protein Urine Trace (Negative); Urobilinogen Urine Negative (Negative); WBC Urine Automated 0-5 /hpf (0-5)
[2024-08-30] MEDS: FUROSEMIDE 40 MG/4 ML VIAL IV ONE (15:40)
[2024-08-30] MEDS: OPTIRAY 320 100ml IV ONE (16:30)
--- NOTE | 2024-08-30 17:01 | History & Physical Report ---
Date of Service August 30, 2024 Assessment & Plan (1) H/O Hodgkin's lymphoma: (2) Pulmonary edema: (3) Mitral regurgitation: (4) S/P ablation of atrial fibrillation: (5) Nonobstructive atherosclerosis of coronary artery: (6) Status post transcatheter aortic valve replacement (TAVR) using bioprosthesis: (7) Heart failure with preserved ejection fraction: (8) Heart disease: (9) Hodgkin disease: (10) History of atrial fibrillation: Plan The patient is a 73-year-old male with a past medical history of pulmonary hypertension, A-fib, on AC, CAD, Hypothyroidism, mitral valve stenosis, Raynaud's disease, s/p TAVR, venous insufficiency, esophageal dysmotility, polymyositis, Hodgkin's lymphoma, JULIUS, ILD who presents to the ED on 08/30/2024 with complaints of worsening shortness of breath. Acute on chronic HFpEF with preserved EF: Recent right lung thoracentesis on 4600 mL removed Follows with cardiology outpatient, will need to consider outpatient diuretic therapy chest x-ray shows bilateral pleural effusion, chest CT pending Continue IV Lasix 40 mg twice a day for now, s/p IV Lasix 80 mg x 1 in ED Cytology negative from recent thoracentesis for cancer Recent echo in May 2024 with severe aortic regurg, right atrium enlargement, severe tricuspid regurgitation Hyponatremia: NA 127, likely secondary to fluid overload, daily CMP Chronic hypoxic respiratory failure Hx pulmonary hypertension Hx ILD Recently placed on 2 L oxygen [id number], originally was only on oxygen at bedtime Hx CAD/AF/TAVR: Continue aspirin, hold Eliquis for possible repeat thoracentesis, continue sotalol Remains in sinus rhythm Hx hypothyroidism: Continue levothyroxine A total of 60 minutes was spent on chart review/facilitating plan of care/reviewing diagnostic data/discussion with consultants Full code DVT prophylaxis: Eliquis on hold History of Present Illness Chief Complaint: shortness of breath, lower extremity edema Primary Care Provider: Dewayne Pena MD The patient is a 73-year-old male with a past medical history of pulmonary hypertension, A-fib, on AC, CAD, Hypothyroidism, mitral valve stenosis, Raynaud's disease, s/p TAVR, venous insufficiency, esophageal dysmotility, polymyositis, Hodgkin's lymphoma, JULIUS, ILD who presents to the ED on 08/30/2024 with complaints of worsening shortness of breath. the patient wears 2 L of oxygen chronically at home [id number]. Patient reports a dry cough over the last few days, reports a 30 pound weight gain over the past few months. Reports worsening shortness of breath with exertion. The patient reports his shortness of breath worsened today he called 911. The patient follows with Dr. Sheppard outpatient and was seen in the office 08/15/2024. The patient at this point, had been experiencing low oxygen levels in the 80s without supplemental oxygen. The patient also follows with vascular surgery and had a plan for a left greater saphenous vein ablation and phlebectomy on 08/18/2024, this was placed on hold due to the patient's acute symptoms worsening dyspnea. At this time, patient noted increased swelling in his legs over the past 2 to 3 weeks. The patient has not been managed at home on diuretics. Echo performed 05/19/24: The qualitative LV ejection fraction is 55-59% (normal). The LV wall thickness is moderately increased (concentric). The left atrium is moderately enlarged (42-48 ml/m^2). The right atrium is severely enlarged. The patient is status post TAVR with Evolut Pro prosthetic valve. The aortic valve prosthesis systolic gradients are normal for this type prosthesis. There is moderate to severe perivalvular aortic regurgitation with an eccentric jet that impinges on the anterior mitral valve leaflet. There is severe mitral annular calcification. Mild mitral regurgitation is present. Moderate to severe tricuspid regurgitation is present. The estimated pulmonary artery systolic pressure is 56mm Hg. There is a small [id number] interatrial shunt per color Doppler interrogation. Findings suggest PFO versus small ASD. Compared to prior study of 07/02/2023, there is no significant change. In collaboration with Dr. Marsh with pulmonology, and ultrasound-guided thoracentesis was scheduled on 08/19/2024, 600 mL was taken off the right lung. cytology at that time was negative. there was consideration of initiating diuretic therapy but options limited due to dizziness risk Per cardiology.The patient reports his shortness of breath had improved after that but slowly continued to worsen. BioFire positive today for rhinovirus Labs remarkable for hemoglobin 10, NA 127, chloride 87, bicarb 39, glucose 126, Trope 32.9, BNP 1277, procalcitonin negative chest x-ray shows extensive interstitial and airspace infiltrates with small pleural effusions. Consider CHF and pneumonia. Disease is worse compared to 10/2023. Chest CT is pending the patient will be admitted for further management of CHF exacerbation Allergies Allergy/AdvReac Type Severity Reaction Status Date / Time No Known Allergies Allergy Verified 02/20/23 08:47 Home Medications Medication Instructions Recorded Confirmed Type aspirin 81 mg tablet,delayed 81 mg PO QAM 11/16/18 08/30/24 History release levothyroxine 75 mcg tablet 75 mcg PO QAM 11/16/18 08/30/24 History cholecalciferol (vitamin D3) 25 1,000 unit PO QAM 05/07/19 08/30/24 History mcg (1,000 unit) capsule (Vitamin D3) cyanocobalamin (vitamin B-12) 1,000 mcg PO QAM 05/07/19 08/30/24 History 1,000 mcg tablet (Vitamin B-12) atorvastatin 20 mg tablet 20 mg PO QAM #30 tabs 10/11/23 08/30/24 Rx apixaban 5 mg tablet (Eliquis) 5 mg PO BID 10/20/23 08/30/24 History L.acidop,casei,lactis,rham-B.lact,bam 1 cap PO DAILY #30 caps 10/25/23 08/30/24 Rx 625 mg (10 billion cell) capsule (Advanced Probiotic) ipratropium 0.5 mg-albuterol 3 mg 3 ml NEB BIDR #90 mL 10/25/23 08/30/24 Rx (2.5 mg base)/3 mL nebulization soln sodium chloride 7 % for 4 ml NEB BIDR #120 mL 10/25/23 08/30/24 Rx nebulization sotalol 80 mg tablet 40 mg (1/2 x 80 mg) PO BID #60 tabs 10/25/23 08/30/24 Rx Past Med/Surg History Problem List Acute hyponatremia (Acute) Edema (Acute) Hypoxia (Acute) Pulmonary edema (Acute) Pneumonia (Acute) Chest pain (Acute) Atrial fibrillation with rapid ventricular response (Acute) Mitral regurgitation S/P ablation of atrial fibrillation S/P ablation of atrial flutter Nonobstructive atherosclerosis of coronary artery Status post transcatheter aortic valve replacement (TAVR) using bioprosthesis Heart failure with preserved ejection fraction Atrial fibrillation with rapid ventricular response Pulmonary hypertension Protein calorie malnutrition Pneumonia Interstitial lung disease no inhaler Mobitz (type) II atrioventricular block PSVT (paroxysmal supraventricular tachycardia) PAF (paroxysmal atrial fibrillation) Tachycardia Occlusion of left vertebral artery TIA (transient ischemic attack) Elevated troponin Dysarthria Left-sided headache (Acute) Non-ST elevation TX (NSTEMI) (Acute) Chest pain (Acute) Closed left hip fracture Encounter for pre-operative examination Closed left hip fracture (Acute) Fall (Acute) Atrial fibrillation (Chronic) Heart disease (Chronic) History of left hip replacement Medical History H/O Hodgkin's lymphoma Neuromuscular disorder Senile osteoporosis Low blood pressure Arthritis Hypothyroidism Hodgkin disease diagnosed at age 27--had radiation and spleenectomy Sleep apnea cpap History of atrial fibrillation follows with Dr. Graves Surgical History S/P TAVR (transcatheter aortic valve replacement) 04/2023 History of esophagogastroduodenoscopy (EGD) History of tooth extraction History of anesthesia reaction woke up once during a colonoscopy History of colonoscopy History of lymph node biopsy malignant--hodgkin History of splenectomy History of cardiac cath 2015 no stents History of cardioversion History of cardiac radiofrequency ablation x2-- "treated for A-fib" Family History Other No family history of adverse response to anesthesia Social History Smoking Status: Former smoker Tobacco Type: Cigarettes Second Hand Exposure: No; Do You Dip or Chew Tobacco: No; Hx Alcohol Use: No Hx Substance Use: No Preferred Language: Moroccan Communication Ability: Effective Dipper Operator Required: No Beliefs That Will Affect Care: Denominational Denominational Beliefs: Does not eat pork. He is jew Current Living Situation: Spouse Feels Safe at Home: Yes Safety Concerns: Feels Safe At This Time Assistive Devices: Cane, CPAP, Glasses, Oxygen - Continuous and Walker Review of Systems Review of Systems: All systems reviewed & are unremarkable except as noted in HPI & below Physical Exam Constitutional: WD/WN, vitals as above + ill appearing and + frail appearing; + not well nourished cachectic Eyes: PERRL, conjunctivae normal, anicteric sclerae ENMT: external ear and nose normal, oropharynx normal Neck: trachea midline, no thyromegaly Respiratory: normal respiratory effort, lungs clear to auscultation no respiratory distress and no labored breathing Auscultation: + diminished lung sounds, + rales and + rhonchi Cardiovascular: RRR, no murmur, no edema ( +3 pitting bilateral lower extremity edema) Gastrointestinal (Abdomen): normal bowel sounds, soft, nontender, no hepatosplenomegaly Musculoskeletal: no cyanosis or clubbing, extremities motor strength 5/5 Skin: no rashes, warm and dry Neurologic: PERRL, EOMI, accommodation nl, no face palsy, no dysarthria Psychiatric: A+Ox3, euthymic affect Lymphatic: no cervical or axillary lymphadenopathy Results & Data Results & Data Vital Signs (Past 12 Hours) Vital Signs Temp Pulse Pulse Resp BP BP Pulse Ox 08/30/24 16:04 86 32 H 148/88 H 94 08/30/24 15:00 83 17 147/88 H 100 08/30/24 14:33 82 20 94 08/30/24 14:33 94 08/30/24 14:30 88 26 H 140/83 90 08/30/24 14:27 89 08/30/24 14:04 36.8 C 88 21 140/83 91 08/30/24 14:04 O2 Del Method O2 Flow Rate 08/30/24 16:04 Nasal Cannula 3 08/30/24 15:00 Nasal Cannula 3 08/30/24 14:33 Nasal Cannula 2 08/30/24 14:33 Nasal Cannula 2 08/30/24 14:30 Nasal Cannula 3 08/30/24 14:27 08/30/24 14:04 Nasal Cannula 3 08/30/24 14:04 Nasal Cannula 3 Diagnostic Findings Laboratory Results WBC 5.20 K/ul (4.8-10.8) 08/30/24 14:31 RBC 3.28 M/uL (4.70-6.10) L 08/30/24 14:31 Hgb 10.0 g/dl (14.0-18.0) L 08/30/24 14: Hct 30.9 % (42.0-52.0) L 08/30/24 14: MCV 94.2 fL (80.0-100.0) 08/30/24 14: MCH 30.5 pg (25.0-34.0) 08/30/24 14: MCHC 32.4 g/dL (32.0-36.0) 08/30/24 14: RDW Std Deviation 60.6 fL (36.4-46.3) H 08/30/24 14: RDW Coeff of Reza 17.7 % (11.5-14.5) H 08/30/24 14: Plt Count 251 K/uL (130-400) 08/30/24 14: MPV 11.6 fL (9.4-12.4) 08/30/24 14: Immature Gran % (Auto) 0.4 % 08/30/24 14: Neut % (Auto) 67.8 % 08/30/24 14: Lymph % (Auto) 12.9 % 08/30/24 14: [place] % (Auto) 17.5 % 08/30/24 14: Eos % (Auto) 0.8 % 08/30/24 14: Baso % (Auto) 0.6 % 08/30/24 14: Neut # (Auto) 3.53 K/uL (1.40-6.50) 08/30/24 14: Lymph # (Auto) 0.67 K/uL (1.20-3.40) L 08/30/24 14: Stafford # (Auto) 0.91 K/uL (0.11-0.59) H 08/30/24 14: Eos # (Auto) 0.04 K/uL (0.00-0.50) 08/30/24 14: Baso # (Auto) 0.03 K/uL (0.00-0.20) 08/30/24 14: Immature Gran # (Auto) 0.02 K/uL (0.01-0.20) 08/30/24 14: PT 12.3 Seconds (9.0-12.0) H 08/30/24 14:31 INR 1.1 (0.9-1.1) 08/30/24 14:31 APTT 27 Seconds (21-31) 08/30/24 14: PTT Ratio 1.0 08/30/24 14:31 VBG pH 7.34 (7.36-7.41) L 08/30/24 14:31 VBG pCO2 71 mmHg (38-50) H 08/30/24 14:31 VBG pO2 22 mmHg 08/30/24 14: VBG HCO3 38 mmol/L 08/30/24 14:31 VBG O2 Saturation < 60.0 % 08/30/24 14:31 VBG Base Excess 9.6 mEq/L 08/30/24 14:31 Sodium 127 mmol/L (136-145) L 08/30/24 14:31 Potassium 4.5 mmol/L (3.5-5.1) 08/30/24 14:31 Chloride 87 mmol/L (98-107) L 08/30/24 14:31 Carbon Dioxide 39 mmol/L (21-32) H 08/30/24 14:31 Anion Gap 1 (3-11) L 08/30/24 14:31 BUN 13 mg/dl (6-23) 08/30/24 14:31 Creatinine 0.57 mg/dl (0.6-1.4) L 08/30/24 14:31 Est Cr Clr Drug Dosing 122.4 ml/min 08/30/24 14:31 eGFR 102.88 08/30/24 14:31 BUN/Creatinine Ratio 22.8 (10-20) H 08/30/24 14:31 Glucose 126 mg/dl (70-99(Fasting)) H 08/30/24 14:31 Lactate 0.9 mmol/L (0.4-2.0) 08/30/24 14:31 Calcium 9.0 mg/dl (8.6-10.3) 08/30/24 14:31 Magnesium 1.9 mg/dl (1.7-2.4) 08/30/24 14:31 Total Bilirubin 0.8 mg/dl (0.2-1.0) 08/30/24 14:31 Direct Bilirubin 0.2 mg/dl (0-0.2) 08/30/24 14:31 AST 33 U/L (13-39) 08/30/24 14: ALT 19 U/L (7-52) 08/30/24 14:31 Alkaline Phosphatase 69 U/L (34-104) 08/30/24 14:31 Troponin I High Sens 32.9 pg/ml (0-20) H 08/30/24 14:31 B-Natriuretic Peptide 1277 pg/ml (0-100) H 08/30/24 14:31 Total Protein 7.7 gm/dl (6.0-8.3) 08/30/24 14: Albumin 3.9 gm/dl (3.4-5.0) 08/30/24 14:31 Procalcitonin < 0.02 ng/ml (0-0.5) 08/30/24 14:31 Urine Color Yellow 08/30/24 15:11 Urine Appearance Clear (Clear) 08/30/24 15:11 Urine pH 6.0 (4.5-7.5) 08/30/24 15:11 Ur Specific [place] 1.010 (1.000-1.030) 08/30/24 15:11 Urine Protein Trace (Negative) H 08/30/24 15:11 Urine Glucose (UA) Negative (Negative) 08/30/24 15:11 Urine Ketones Negative (Negative) 08/30/24 15:11 Urine Blood Trace (Negative) H 08/30/24 15:11 Urine Nitrite Negative (Negative) 08/30/24 15:11 Urine Bilirubin Negative (Negative) 08/30/24 15:11 Urine Urobilinogen Negative (Negative) 08/30/24 15:11 Ur Leukocyte Esterase Negative (Negative) 08/30/24 15:11 Urine WBC (Auto) 0-5 /hpf (0-5) 08/30/24 15:11 Urine RBC (Auto) 3-5 /hpf (0-2) H 08/30/24 15:11 U Hyaline Cast (Auto) 0-2 /lpf (0-2) 08/30/24 15:11 U Epithel Cells (Auto) 0-2 /hpf (0-2) 08/30/24 15:11 Urine Bacteria (Auto) None Seen (None Seen) 08/30/24 15:11 Adenovirus (PCR) Not Detected (NotDetected) 08/30/24 14:30 B. pertussis DNA (PCR) Not Detected (NotDetected) 08/30/24 14:30 B.parapertussis DNA PCR Not Detected (NotDetected) 08/30/24 14:30 C. pneumoniae DNA (PCR) Not Detected (NotDetected) 08/30/24 14:30 Coronavirus OC43 (PCR) Not Detected (NotDetected) 08/30/24 14:30 Coronavirus HKU1 (PCR) Not Detected (NotDetected) 08/30/24 14:30 Coronavirus 229E (PCR) Not Detected (NotDetected) 08/30/24 14:30 SARS-CoV-2 (PCR) Not Detected (NotDetected) 08/30/24 14:30 Coronavirus NL63 (PCR) Not Detected (NotDetected) 08/30/24 14:30 Human Metapneumovir PCR Not Detected (NotDetected) 08/30/24 14:30 Influenza Type A (PCR) Not Detected (NotDetected) 08/30/24 14:30 Influenza Type B (PCR) Not Detected (NotDetected) 08/30/24 14:30 M. pneumoniae (PCR) Not Detected (NotDetected) 08/30/24 14:30 Parainfluenza 1 (PCR) Not Detected (NotDetected) 08/30/24 14:30 Parainfluenza 2 (PCR) Not Detected (NotDetected) 08/30/24 14:30 Parainfluenza 3 (PCR) Not Detected (NotDetected) 08/30/24 14:30 Parainfluenza 4 (PCR) Not Detected (NotDetected) 08/30/24 14:30 RSV (PCR) Not Detected (NotDetected) 08/30/24 14:30 Entero/Rhino (PCR) DETECTED (NotDetected) A 08/30/24 14:30 Impressions Chest X-Ray 08/30/24 14:21 EXAM: Radiograph of the Chest 1 View INDICATION: Sepsis TECHNIQUE: Frontal view of the chest. COMPARISON: 10/08/2023 and 10/20/2023 FINDINGS: Lungs and pleural spaces: Moderate to severe diffuse interstitial thickening is similar to the prior exam. There are now infiltrates in both lower lungs left greater than right and small bilateral pleural effusions. No pneumothorax. Heart: Stable enlarged shadow. Aortic valve prosthesis noted. There is dense calcification of the mitral annulus. Mediastinum: Normal contour. Bones/joints: No fracture, erosion or dislocation. Soft tissues: No abnormality noted. No radiopaque foreign body noted. Upper abdomen: No abnormality noted. IMPRESSION: Extensive interstitial and airspace infiltrates with small pleural effusions. Consider CHF and/or pneumonia. Appearance of the chest is similar but disease is worse compared to 10/20/2023. Underlying chronic components probable. ACT 112: N/A Electronically signed by Sushila Phelps 08-30-2024 2:59 PM Supervising Physician Co-Signing Physician Notes Patient seen and examined at bedside. Complex case. Patient and state patient was on hospice until May when they were told they were no longer eligible. He states for the past 2 weeks he has been getting steadily shorter of breath. He is barely able to walk a few feet, even with oxygen, without needing to rest or sit down. Has also noticed weight loss since and significant cachexia. On exam, he has significant crackles and rhonchi throughout all lung cline, significant cachexia and some accessory muscle use, 2+ pitting edema in legs, elevated JVP on exam to right below earlobe. CT imaging suggestive of significant compressive atelectasis, bilateral pleural effusions. Most recent echo with s/p TAVR, severe pulmonary HTN, significant valvular disease. Suspect significant decompensated heart failure with additional underlying component given cachexia. Given severe cachexia and reaccumulation of fluid rapidly post thoracentesis, I have significant concern for underlying lung malignancy vs. malignancy of unknown primary despite normal cytology with last thoracentesis. Compressive atelectasis likely 2/2 severe fluid burden in lungs vs. malignancy vs. less likely infectious etiologies. Plan is to start aggressive diuresis (RV function maintained on last echo), aggressive pulmonary toilet (IS, flutter valve), check sputum culture although suspect less likely infectious in nature. Pulmonary consulted, will need NPO at midnight for thoracentesis, hold blood thinners. Would consider cardiology consult in AM given complex cardiac pathology. May benefit from Bipap for preload/afterload reduction if fails to improve, on CPAP at home. [facility] minutes spent discussing goals and values with patient and . Discussed current clinical scenario as above, and that he is very acutely on chronically ill. Discussed his recent stay in hospice and prognosis. Given his ECOG of 3 sliding to 4, significant cachexia, his prognosis is limited; however, heart failure/pulm HTN and ILD are difficult to prognosticate so while best estimate is prognosis on scale of months, could be shorter or longer. Discussed this with patient and , who were very appreciative of this discussion. Discussed 3 paths of care moving forward: one of comfort focused only care (hospice, which patient is familiar with), medical stabilization without aggressive interventions and if he declines focus on comfort, and medical stabilization with him returning to the hospital if he gets more sick. Him and his state they would like to try the second approach, with medical management this admission and consideration for comfort care at discharge if he fails to improve or worsens. Patient is DNRDNI, with all procedures considered at this time. I have seen and discussed the case with the collaborating advanced practitioner. I agree with the above H&P. I have reviewed and confirmed the patients medical history, the findings on physical examination, and the patients diagnosis and treatment plan with Tariq Pedro NP and agree with the information documented. I spent a total of 40 minutes coordinating, documenting, and providing care for this patient excluding time spent in the performance of separately billed services. All of the aforementioned completed outside of collaborating with the assigned advanced practitioner for a full treatment plan. I have reviewed the advanced practitioner's documentation, and I agree with, and take responsibility for the plan of care I spent a total of 25 minutes providing advanced care planning to the patient and/or family, including [id number] time discussing the patient's health status, prognosis, and treatment options. This time includes specific activities such as: discussing advance directives, goals of care, prognostication, and end-of-life planning.
--- NOTE | 2024-08-30 17:38 | CT Scan Report ---
EXAM: CT chest diagnostic w con CLINICAL HISTORY: Recent thora, r/o pneumo, assess effusions TECHNIQUE: Contiguous 3.[address] images of the chest were acquired with the administration of intravenous contrast. Coronal and sagittal reconstructions were obtained. IV contrast was administered for post-contrast images. One of the following dose reduction techniques was utilized for this exam: Automated exposure control, adjustment of the mA and/or kV according to patient size, and use of iterative reconstruction. (CTDI: 12.48 mGy, DLP: 426.62 mGy*cm) COMPARISON: Compared to prior CT dated 10/20/2023. FINDINGS: Lungs: Subpleural fibrotic bands. Bilateral basal ill-defined consolidations with crowding of bronchovascular markings. Bilateral mild more to the right pleural effusion or pleural thickening. Mediastinum: Reactive paratracheal and subcarinal lymph nodes. Normal appearance of the thymus. Hilar Structures: Normal size and configuration, no enlargement. Heart and Great Vessels: Increase cardiac size. No pericardial effusion. Normal caliber and course of the thoracic aorta and other great vessels. Aortic root metallic graft. Normal enhancement of the great vessels post-contrast. Dilated IVC. Pulmonary Arteries: No evidence of pulmonary embolism. Prominent intraparenchymal vascular markings. Esophagus: Normal course and caliber. No masses or dilatation. Bones: No fractures or lytic/sclerotic lesions. Normal bone density and alignment. No evidence of rib fractures. Chest Wall: No masses or soft tissue abnormalities. Upper Abdomen: Visualized portions of the liver, spleen, pancreas, adrenal glands, and kidneys are normal. No abnormalities were noted in the visualized upper abdominal organs. Left upper pole cortical scar. Thyroid: Normal size and morphology. Righ thyroid nodule 4.5 mm. IMPRESSION: 1. Bilateral basal ill-defined consolidations with crowding of bronchovascular markings favour compression atelectasis rather than infective one, suggesting clinical assessment and follow-up. (new) 2. Bilateral mild more to the right pleural effusion or pleural thickening. (new) 3. Cardiomegaly. (unchanged) 4. Right thyroid nodule 4.5 mm. Electronically signed by Jean Carlos Moctezuma 08-30-2024 5:37 PM
[2024-08-30] MEDS: ALBUT/IPRATROP 3MG/0.5MG NEB 3 ML VIAL NEB SCH (20:13)
[2024-08-30] MEDS: SOTALOL HCL 80 MG TAB PO SCH (20:39)
[2024-08-30] MEDS: FUROSEMIDE 40 MG/4 ML VIAL IV SCH (20:39)
[2024-08-30] MEDS ORDERED: ALBUT/IPRATROP 3MG/0.5MG NEB 3 ML VIAL NEB PRN (21:31)
[2024-08-30] MEDS: ACETAMINOPHEN 325 MG TAB PO PRN (23:40)
[2024-08-31 07:19] LABS: Basophils # (auto) 0.04 K/uL (0.00-0.20); Basophils % (auto) 0.6 %; Eosinophils # (auto) 0.05 K/uL (0.00-0.50); Eosinophils % (auto) 0.8 %; Hematocrit (blood only) 28.9 % (42.0-52.0); Hemoglobin 9.6 g/dl (14.0-18.0); Immature Granulocytes # (auto) 0.02 K/uL (0.01-0.20); Immature Granulocytes % (auto) 0.3 %; Lymphocytes # (auto) 0.65 K/uL (1.20-3.40); Lymphocytes % (auto) 10.3 %; Mean Corpuscular Hgb Conc 33.2 g/dL (32.0-36.0); Mean Corpuscular Volume 93.2 fL (80.0-100.0); Mean Platelet Volume 11.4 fL (9.4-12.4); Monocytes # (auto) 1.11 K/uL (0.11-0.59); Monocytes % (auto) 17.5 %; Neutrophils # (auto) 4.47 K/uL (1.40-6.50); Neutrophils % (auto) 70.5 %; Platelet Count 253 K/uL (130-400); RDW Coefficient of Variation 17.2 % (11.5-14.5); White Blood Count 6.34 K/ul (4.8-10.8)
[2024-08-31 07:47] LABS: Alanine Aminotransferase 17 U/L (7-52); Albumin Level 3.6 gm/dl (3.4-5.0); Alkaline Phosphatase 66 U/L (34-104); Aspartate Aminotransferase 26 U/L (13-39); BUN Creatinine Ratio 21.7 (10-20); Bilirubin,Total 0.7 mg/dl (0.2-1.0); Blood Urea Nitrogen 15 mg/dl (6-23); Calcium 8.6 mg/dl (8.6-10.3); Carbon Dioxide > 45 mmol/L (21-32); Chloride 83 mmol/L (98-107); Creatinine Clr Calc Pharmacy 93.5 ml/min; Globulin 3.5 gm/dl (2.5-4.0); Glucose 103 mg/dl (70-99(Fasting)); Magnesium 1.8 mg/dl (1.7-2.4); Potassium 3.8 mmol/L (3.5-5.1); Sodium 133 mmol/L (136-145); Total Protein 7.1 gm/dl (6.0-8.3)
[2024-08-31] MEDS: CHOLECALCIFEROL 25 MCG (1000 UNITS) TAB PO SCH (08:07)
[2024-08-31] MEDS: ATORVASTATIN 20 MG TAB PO SCH (08:07)
[2024-08-31] MEDS: CYANOCOBALAMIN (B-12) 500 MCG TABLET PO SCH (08:07)
[2024-08-31] MEDS: LEVOTHYROXINE SODIUM 75 MCG TABLET PO SCH (08:08)
[2024-08-31] MEDS ORDERED: Nursing to Pharmacy Communication SCH (08:15)
[2024-08-31] MEDS ORDERED: ASPIRIN 81 MG ECTAB PO SCH (09:00)
--- NOTE | 2024-08-31 09:49 | Cardiology Consultation ---
Date of Consultation August 31, 2024 Assessment & Plan (1) Heart failure, diastolic, with acute decompensation: (2) Nonobstructive atherosclerosis of coronary artery: (3) Status post transcatheter aortic valve replacement (TAVR) using bioprosthesis: (4) Interstitial lung disease: (5) Acute hyponatremia: (6) Mitral regurgitation: (7) S/P ablation of atrial fibrillation: (8) S/P ablation of atrial flutter: (9) Protein calorie malnutrition: Plan Complex cachectic appearing 73-year-old male with significant underlying interstitial lung disease admitted with signs and symptoms of acute decompensated heart failure. Patient received IV furosemide in the ER and on admission with improvement in presenting symptoms. I's/O's -925 mL overall. Resting echocardiography in May 2024 with preserved LV systolic function, EF 55 to 59%, moderate to severe perivalvular (TAVR) aortic regurgitation, moderate to severe tricuspid regurgitation, pulmonary hypertension with estimated PASP 56 mmHg. Recommend cautious diuresis. Supplement potassium. Anticoagulation is currently on hold, to be resumed when able. Patient will likely require low-dose diuretic therapy on discharge. Pulmonary consultation pending. Supervising Physician Co-Signing Physician Notes Patient was seen and personally examined. Full assessment and plan by advanced provider as above. Care and management discussed and personally endorsed Complex 73-year-old male with recurrent congestive heart failure right greater than left with right pleural effusion. Underlying history includes valvular heart disease and severe interstitial lung disease O2 dependent. Currently not on diuretics and presents with volume overload, edema and weight gain and recurrent pleural effusion status postthoracentesis approximately 2 weeks ago Recommendations: Continue IV diuretics as recommended. Would add spironolactone at low-dose to regimen begin today with 12.5 mg/day. Appreciate pulmonology evaluation History of Present Illness Reason for Consultation: HF. Pleural effusion. H/o TAVR, CAD, Afib Requesting Physician: Dr. Zaria Payton MD Attending Physician: Dr. Zaria Payton MD History of Present Illness Patient is a 73-year-old male who notes increased supplemental oxygen requirements along with worsening exertional dyspnea, cough, congestion, orthopnea, PND, lower extremity peripheral edema, and weight gain over the past 3 weeks. Notes outpatient by Dr. Graves towards the end of July with imaging revealing progressive chronic interstitial lung disease and right grea ter than left pleural effusions. Patient referred for thoracentesis, undergoing successful ultrasound-guided right-sided thoracentesis of 0.6 L denise clear fluid on August 19, 2024. Dyspnea improved transiently post thoracentesis though symptoms progressed shortly thereafter leading patient to present to the [facility] ER via ambulance on August 30, 2024. Chest x-ray interpreted by radiology as revealing extensive interstitial and airspace infiltrates with small pleural effusions. Chest CT interpreted by the radiologist as revealing bilateral basal ill-defined consolidations with crowding of bronchovascular markings favour compression atelectasis rather than infective one, bilateral right greater than left pleural effusions or pleural thickening. Patient received 80 mg IV furosemide in the ER with 40 mg twice per day ordered on admission with improvement in dyspnea as well as fluid retention/lower extremity peripheral edema. EKG on admission revealed sinus rhythm with ectopy, possible old anteroseptal infarct, QTc 471 ms. Telemetry with sinus rhythm predominantly in the 80s and 90s, couple short runs of PAT up to 140 bpm, possible atrial flutter. Problem List: Severe aortic stenosis status post TAVR (# 34mm Medtronic Evolut FX Aortic Valve), 05/03/2023 Postop left bundle branch block which resolved on its own. No permanent pacemaker placed. History of atrial flutter status post tricuspid isthmus ablation, 2013 Symptomatic atrial fibrillation status post PVI, 05/2017 Recurrent atrial fibrillation status post initiation of sotalol in October 2023 Severe mitral regurgitation Mild nonobstructive CAD-- 40% pLAD stenosis and 40% RCA per pre TAVR cath 02/2023 Hodgkin's lymphoma for which he was treated with splenectomy and radiation therapy at the age of 27 Enlarged aortic root Interstitial lung disease, oxygen dependent JULIUS Esophageal dysmotility Hypothyroidism Prediabetes Allergies Allergy/AdvReac Type Severity Reaction Status Date / Time No Known Allergies Allergy Verified 02/20/23 08:47 Home Medications Medication Instructions Recorded Confirmed Type aspirin 81 mg tablet,delayed 81 mg PO QAM 11/16/18 08/30/24 History release levothyroxine 75 mcg tablet 75 mcg PO QAM 11/16/18 08/30/24 History cholecalciferol (vitamin D3) 25 1,000 unit PO QAM 05/07/19 08/30/24 History mcg (1,000 unit) capsule (Vitamin D3) cyanocobalamin (vitamin B-12) 1,000 mcg PO QAM 05/07/19 08/30/24 History 1,000 mcg tablet (Vitamin B-12) atorvastatin 20 mg tablet 20 mg PO QAM #30 tabs 10/11/23 08/30/24 Rx apixaban 5 mg tablet (Eliquis) 5 mg PO BID 10/20/23 08/30/24 History L.acidop,casei,lactis,rham-B.lact,bam 1 cap PO DAILY #30 caps 10/25/23 08/30/24 Rx 625 mg (10 billion cell) capsule (Advanced Probiotic) ipratropium 0.5 mg-albuterol 3 mg 3 ml NEB BIDR #90 mL 10/25/23 08/30/24 Rx (2.5 mg base)/3 mL nebulization soln sodium chloride 7 % for 4 ml NEB BIDR #120 mL 10/25/23 08/30/24 Rx nebulization sotalol 80 mg tablet 40 mg (1/2 x 80 mg) PO BID #60 tabs 10/25/23 08/30/24 Rx Patient History Medical History H/O Hodgkin's lymphoma Neuromuscular disorder Senile osteoporosis Low blood pressure Arthritis Hypothyroidism Hodgkin disease diagnosed at age 27--had radiation and spleenectomy Sleep apnea cpap History of atrial fibrillation follows with Dr. Graves Surgical History S/P TAVR (transcatheter aortic valve replacement) 04/2023 History of esophagogastroduodenoscopy (EGD) History of tooth extraction History of anesthesia reaction woke up once during a colonoscopy History of colonoscopy History of lymph node biopsy malignant--hodgkin History of splenectomy History of cardiac cath 2015 no stents History of cardioversion History of cardiac radiofrequency ablation x2-- "treated for A-fib" Family History Other No family history of adverse response to anesthesia Social History Smoking Status: Former smoker Tobacco Type: Cigarettes Second Hand Exposure: No; Do You Dip or Chew Tobacco: No; Hx Alcohol Use: No Hx Substance Use: No Preferred Language: Greenlandic Communication Ability: Effective Security Operations Analyst Required: No Beliefs That Will Affect Care: Anglican Anglican Beliefs: Does not eat pork. He is sikhism Current Living Situation: Spouse Feels Safe at Home: Yes Safety Concerns: Feels Safe At This Time Assistive Devices: Cane, CPAP, Glasses, Oxygen - Continuous and Walker Review of Systems Review of Systems: Complete Review of Systems is as stated above, negative, or noncontributory Physical Exam Physical Exam: General: A&Ox3. NAD. Cachectic HENT: Normocephalic. Atraumatic. Eyes: PER. Conjunctiva pink, sclera clear. Neck: + JVD. + HJR. Heart: RRR, 90 bpm. Short soft early systolic and diastolic murmurs heard best at the lower left sternal border. Apical systolic murmur. Lungs: Significantly diminished. Decreased/absent breath sounds at the bases. Dry crackles. Right midlung expiratory wheeze. Abdomen: +BS. Soft. Nontender. No masses or organomegaly. Extremities: 1-2+ peripheral edema. No cyanosis. Limited neurological examination is without focal deficits. Pulses: radial=2/4, posterior tibial=1/4. Results & Data Vital Signs (Past 12 Hours) Vital Signs Temp Pulse Pulse Resp BP Pulse Ox O2 Del Method 08/31/24 07:32 36.5 C 86 18 115/57 L 97 Nasal Cannula 08/31/24 07:29 80 20 90 Nasal Cannula 08/31/24 07:11 86 08/31/24 02:39 36.8 C 89 18 104/64 98 CPAP 08/31/24 00:35 88 08/31/24 00:27 96 H 08/30/24 22:46 36.8 C 87 16 111/65 98 CPAP 08/30/24 22:08 Nasal Cannula O2 Flow Rate 08/31/24 07:32 4 08/31/24 07:29 4 08/31/24 07:11 08/31/24 02:39 08/31/24 00:35 08/31/24 00:27 08/30/24 22:46 08/30/24 22:08 4 Laboratory Results Cardiac Enzymes 08/30/24 08/30/24 08/30/24 Range/Units 14:31 17:07 21:36 AST 33 (13-39) U/L Troponin I High Sens 32.9 H 37.2 H 44.8 H (0-20) pg/ml B-Natriuretic Peptide 1277 H (0-100) pg/ml 08/31/24 08/31/24 Range/Units 00:01 07:01 AST 26 (13-39) U/L Troponin I High Sens 49.9 H 50.6 H* (0-20) pg/ml B-Natriuretic Peptide (0-100) pg/ml Coagulation 08/30/24 Range/Units 14:31 PT 12.3 H (9.0-12.0) Seconds APTT 27 (21-31) Seconds B-Natriuretic Peptide 1277 H (0-100) pg/ml CBC 08/30/24 08/31/24 Range/Units 14:31 07:01 WBC 5.20 6.34 (4.8-10.8) K/ul RBC 3.28 L 3.10 L (4.70-6.10) M/uL Hgb 10.0 L 9.6 L (14.0-18.0) g/dl Hct 30.9 L 28.9 L (42.0-52.0) % Plt Count 251 253 (130-400) K/uL Neut # (Auto) 3.53 4.47 (1.40-6.50) K/uL Lymph # (Auto) 0.67 L 0.65 L (1.20-3.40) K/uL [place] # (Auto) 0.91 H 1.11 H (0.11-0.59) K/uL Eos # (Auto) 0.04 0.05 (0.00-0.50) K/uL Baso # (Auto) 0.03 0.04 (0.00-0.20) K/uL Comprehensive Metabolic Panel 08/30/24 08/31/24 Range/Units 14:31 07:01 Sodium 127 L 133 L (136-145) mmol/L Potassium 4.5 3.8 (3.5-5.1) mmol/L Chloride 87 L 83 L (98-107) mmol/L Carbon Dioxide 39 H > 45 H* (21-32) mmol/L BUN 13 15 (6-23) mg/dl Creatinine 0.57 L 0.69 (0.6-1.4) mg/dl Glucose 126 H 103 H (70-99(Fasting)) mg/dl Calcium 9.0 8.6 (8.6-10.3) mg/dl Direct Bilirubin 0.2 (0-0.2) mg/dl AST 33 26 (13-39) U/L ALT 19 17 (7-52) U/L Alkaline Phosphatase 69 66 (34-104) U/L Total Protein 7.7 7.1 (6.0-8.3) gm/dl Albumin 3.9 3.6 (3.4-5.0) gm/dl Intake and Output 08/30/24 08/31/24 08/31/24 22:59 06:59 14:59 Intake Total 200 / 400 200 / 400 Output Total 1325 / 1325 Balance -1125 / -925 200 / -925 Intake: Oral 200 / 400 200 / 400 Output: Urine 1325 / 1325 Other: # Unmeasured Voids 3 3 Weight 70.42 kg 70.41 kg Weight Measurement Method Built in [facility] Built in [facility] Diagnostic Findings May 19, 2024 TTE Interpretation Summary (as per Dr. Russell): The qualitative LV ejection fraction is 55-59% (normal). The LV wall thickness is moderately increased (concentric). The left atrium is moderately enlarged (42-48 ml/m^2). The right atrium is severely enlarged. The patient is status post TAVR with Evolut Pro prosthetic valve. The aortic valve prosthesis systolic gradients are normal for this type prosthesis. There is moderate to severe perivalvular aortic regurgitation with an eccentric jet that impinges on the anterior mitral valve leaflet. There is severe mitral annular calcification. Mild mitral regurgitation is present. Moderate to severe tricuspid regurgitation is present. The estimated pulmonary artery systolic pressure is 56mm Hg. There is a small [id number] interatrial shunt per color Doppler interrogation. Findings suggest PFO versus small ASD. Compared to prior study of 07/02/2023, there is no significant change.
--- NOTE | 2024-08-31 10:13 | Hospitalist Progress Note ---
Date of Service August 31, 2024 Assessment & Plan (1) H/O Hodgkin's lymphoma: (2) Pulmonary edema: (3) Mitral regurgitation: (4) S/P ablation of atrial fibrillation: (5) Nonobstructive atherosclerosis of coronary artery: (6) Status post transcatheter aortic valve replacement (TAVR) using bioprosthesis: (7) Heart failure with preserved ejection fraction: (8) Heart disease: (9) Hodgkin disease: (10) History of atrial fibrillation: Plan 73-year-old male with a past medical history of pulmonary hypertension, A-fib, on AC, CAD, Hypothyroidism, mitral valve stenosis, Raynaud's disease, s/p TAVR, venous insufficiency, esophageal dysmotility, polymyositis, Hodgkin's lymphoma, JULIUS, ILD who presents to the ED on 08/30/2024 with complaints of worsening shortness of breath and pedal edema Acute diastolic heart failure: Recent right lung thoracentesis on [address] noted bilateral pleural effusion (R>L), basilar atelectasis Continue IV lasix Monitor I/O, daily weight Cardiology evaluation noted Will follow up Pulmonology to determine if patient will benefit from thoracentesis Hyponatremia: Sodium on admission [id number], likely secondary to fluid overload Sodium is 133 this AM Monitor Chronic hypoxic respiratory failure Hx pulmonary hypertension Hx ILD Recently placed on 2 L oxygen [id number], originally was only on oxygen at bedtime Mointor Hx CAD/AF/TAVR: Continue aspirin, sotalol Home eliquis on hold until confirmed if thoracentesis is planned. If not, will resume. If planned for a different day, will do hep gtt in the interim Hx hypothyroidism: Continue levothyroxine A total of 50 minutes was spent on chart review/facilitating plan of care/reviewing diagnostic data/discussion with consultants Full code DVT prophylaxis: Eliquis on hold as above I spent a total of 50 minutes coordinating, documenting and providing care for this patient excluding time spent in performance of separately billed services Admission and Anticipated Discharge Date Admission Date: August 30, 2024 Subjective Patient seen and examined Reports increased SOB especially with exertion, cough, leg swelling and weight gain Denied chest pain, dizziness, fever, chill, nausea, vomiting, abd pain, diarrhea Physical Exam Constitutional: + well hydrated and + thin; no acute dis tress Eyes: PERRL, conjunctivae normal, anicteric sclerae ENMT: external ear and nose normal, oropharynx normal Respiratory: On nasal cannula, diminished breath sounds Cardiovascular: Rate/Rhythm: regular rate and regular rhythm Gastrointestinal (Abdomen): normal bowel sounds, soft, nontender, no hepatosplenomegaly Musculoskeletal: Bilateral pedal edema Neurologic: PERRL, EOMI, accommodation nl, no face palsy, no dysarthria Psychiatric: A+Ox3, euthymic affect Results & Data Results & Data Vital Signs (Past 12 Hours) Vital Signs Temp Pulse Pulse Resp BP Pulse Ox O2 Del Method 08/31/24 07:32 36.5 C 86 18 115/57 L 97 Nasal Cannula 08/31/24 07:29 80 20 90 Nasal Cannula 08/31/24 07:11 86 08/31/24 02:39 36.8 C 89 18 104/64 98 CPAP 08/31/24 00:35 88 08/31/24 00:27 96 H 08/30/24 22:46 36.8 C 87 16 111/65 98 CPAP O2 Flow Rate 08/31/24 07:32 4 08/31/24 07:29 4 08/31/24 07:11 08/31/24 02:39 08/31/24 00:35 08/31/24 00:27 08/30/24 22:46 Laboratory Results Abnormal lab results 08/30/24 08/30/24 08/30/24 Range/Units 14:30 14:31 15:11 RBC 3.28 L (4.70-6.10) M/uL Hgb 10.0 L (14.0-18.0) g/dl Hct 30.9 L (42.0-52.0) % RDW Std Deviation 60.6 H (36.4-46.3) fL RDW Coeff of Reza 17.7 H (11.5-14.5) % Lymph # (Auto) 0.67 L (1.20-3.40) K/uL [place] # (Auto) 0.91 H (0.11-0.59) K/uL PT 12.3 H (9.0-12.0) Seconds VBG pH 7.34 L (7.36-7.41) VBG pCO2 71 H (38-50) mmHg Sodium 127 L (136-145) mmol/L Chloride 87 L (98-107) mmol/L Carbon Dioxide 39 H (21-32) mmol/L Anion Gap 1 L (3-11) Creatinine 0.57 L (0.6-1.4) mg/dl BUN/Creatinine Ratio 22.8 H (10-20) Glucose 126 H (70-99(Fasting)) mg/dl Troponin I High Sens 32.9 H (0-20) pg/ml B-Natriuretic Peptide 1277 H (0-100) pg/ml Urine Protein Trace H (Negative) Urine Blood Trace H (Negative) Urine RBC (Auto) 3-5 H (0-2) /hpf Entero/Rhino (PCR) DETECTED A (NotDetected) 08/30/24 08/30/24 08/31/24 Range/Units 17:07 21:36 00:01 RBC (4.70-6.10) M/uL Hgb (14.0-18.0) g/dl Hct (42.0-52.0) % RDW Std Deviation (36.4-46.3) fL RDW Coeff of Reza (11.5-14.5) % Lymph # (Auto) (1.20-3.40) K/uL [place] # (Auto) (0.11-0.59) K/uL PT (9.0-12.0) Seconds VBG pH (7.36-7.41) VBG pCO2 (38-50) mmHg Sodium (136-145) mmol/L Chloride (98-107) mmol/L Carbon Dioxide (21-32) mmol/L Anion Gap (3-11) Creatinine (0.6-1.4) mg/dl BUN/Creatinine Ratio (10-20) Glucose (70-99(Fasting)) mg/dl Troponin I High Sens 37.2 H 44.8 H 49.9 H (0-20) pg/ml B-Natriuretic Peptide (0-100) pg/ml Urine Protein (Negative) Urine Blood (Negative) Urine RBC (Auto) (0-2) /hpf Entero/Rhino (PCR) (NotDetected) 08/31/24 Range/Units 07:01 RBC 3.10 L (4.70-6.10) M/uL Hgb 9.6 L (14.0-18.0) g/dl Hct 28.9 L (42.0-52.0) % RDW Std Deviation 58.0 H (36.4-46.3) fL RDW Coeff of Reza 17.2 H (11.5-14.5) % Lymph # (Auto) 0.65 L (1.20-3.40) K/uL [place] # (Auto) 1.11 H (0.11-0.59) K/uL PT (9.0-12.0) Seconds VBG pH (7.36-7.41) VBG pCO2 (38-50) mmHg Sodium 133 L (136-145) mmol/L Chloride 83 L (98-107) mmol/L Carbon Dioxide > 45 H* (21-32) mmol/L Anion Gap (3-11) Creatinine (0.6-1.4) mg/dl BUN/Creatinine Ratio 21.7 H (10-20) Glucose 103 H (70-99(Fasting)) mg/dl Troponin I High Sens 50.6 H* (0-20) pg/ml B-Natriuretic Peptide (0-100) pg/ml Urine Protein (Negative) Urine Blood (Negative) Urine RBC (Auto) (0-2) /hpf Entero/Rhino (PCR) (NotDetected)
--- NOTE | 2024-08-31 11:38 | Pulmonary Consultation ---
Date of Consultation August 31, 2024 Assessment & Plan (1) Pleural effusion due to CHF (congestive heart failure): Right pleural effusion was sampled by CHAD Thomas earlier this month. Cell counts, cytology and chemistries are not available for me to review. Recommend obtaining these results to evaluate for transudate versus exudate. BNP is significantly elevated at this time and findings consistent with CHF. Also component of malnutrition and poor oncotic pressure leading to third spacing. Agree with diuresis. If no improvement in symptoms in next 1 to 2 days, can consider a diagnostic/therapeutic thoracentesis. 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 Follows with [facility] pulmonology. Currently not on any specific immunosuppressive therapy or antifibrotic therapy. No clear signs of ILD ex acerbation at this time. Suspect worsening dyspnea is from volume overload. (3) Respiratory acidosis: VBG yesterday consistent with acute hypercapnic respiratory failure with underlying chronic hypercapnia. Patient on CPAP at home. Suggest transitioning to NIV upon discharge. Suspect chronic hypercapnic respiratory failure related to severe muscle wasting and respiratory muscle weakness. (4) Metabolic alkalosis: Patient with severe underlying metabolic alkalosis related to chronic respiratory acidosis. Will obtain repeat VBG and if pH greater than 7.4, will give a dose of acetazolamide. (5) PAF (paroxysmal atrial fibrillation): Followed by cardiology. Currently on Eliquis. Hospitalist service transitioning him him to heparin for possible thoracentesis while inpatient if no improvement of symptoms in the next couple days. (6) Chronic hypoxic respiratory failure, on home oxygen therapy: Patient chronically on 2 L of oxygen. He was on 4 L when I came in to see him and I weaned him down to 2 L with saturations maintained in the high 90s. Goal saturations of 88 to 92%. (7) Pulmonary hypertension: Suspect secondary pulmonary hypertension related to cardiac valvulopathy, heart failure with preserved ejection fraction and ILD. Difficult to rule out Group 1 pulmonary hypertension. Can consider outpatient right heart catheterization when more stable. Will defer to his outpatient user experience designer. (8) Severe protein-energy malnutrition: Suggest dietitian consult given ongoing weight loss and poor nutritional status. Plan Thanks for the consult. Will follow with you. History of Present Illness Reason for Consultation: Evaluation for thoracentesis Attending Physician: Zaria Payton MD History of Present Illness 73-year-old male with a history of unspecified ILD (possible NSIP), GERD, esoph ageal dysmotility, Raynaud's syndrome, JULIUS on CPAP, non-Hodgkin's lymphoma last treated in the , severe aortic stenosis status post TAVR in 2022, recurrent atrial fibrillation noted on Eliquis and sotalol and severe mitral regurgitation who presented to the hospital with increasing oxygen requirements and worsening dyspnea. He notes that he chronically uses 2 L of oxygen and follows with [facility] pulmonary medicine through [facility]. He underwent a thoracentesis earlier this month with 600 mL of denise-colored fluid removed by interventional radiology [facility]. He rapidly had improvement of symptoms, but they rapidly came back after several days. On CT chest he had evidence of bilateral right greater than left pleural effusions. He has been receiving IV diuretics since admission. He was on 4 L of oxygen when I came to see him and I weaned him down to 2 L with saturations of 99% maintained while we were having a conversation. He has a chronic dry cough. No fevers, chills or night sweats. PFT in 2021 revealed an FVC of 44% predicted and an FEV1 of 54% predicted with. He has a remote former smoking history. Pulmonary note from 2021 reviewed. Patient had serologies checked in 2018 which revealed a mildly elevated IgE (level unknown). NEREYDA of 1:160. Negative double- stranded DNA, negative CCP, negative anti-Jo1 antibody normal immunoglobulins. There was concern at that time of the user experience designer for possible NSIP versus chronic pneumonitis. Allergies Allergy/AdvReac Type Severity Reaction Status Date / Time No Known Allergies Allergy Verified 02/20/23 08:47 Home Medications Medication Instructions Recorded Confirmed Type aspirin 81 mg tablet,delayed 81 mg PO QAM 11/16/18 08/30/24 History release levothyroxine 75 mcg tablet 75 mcg PO QAM 11/16/18 08/30/24 History cholecalciferol (vitamin D3) 25 1,000 unit PO QAM 05/07/19 08/30/24 History mcg (1,000 unit) capsule (Vitamin D3) cyanocobalamin (vitamin B-12) 1,000 mcg PO QAM 05/07/19 08/30/24 History 1,000 mcg tablet (Vitamin B-12) atorvastatin 20 mg tablet 20 mg PO QAM #30 tabs 10/11/23 08/30/24 Rx apixaban 5 mg tablet (Eliquis) 5 mg PO BID 10/20/23 08/30/24 History L.acidop,casei,lactis,rham-B.lact,bam 1 cap PO DAILY #30 caps 10/25/23 08/30/24 Rx 625 mg (10 billion cell) capsule (Advanced Probiotic) ipratropium 0.5 mg-albuterol 3 mg 3 ml NEB BIDR #90 mL 10/25/23 08/30/24 Rx (2.5 mg base)/3 mL nebulization soln sodium chloride 7 % for 4 ml NEB BIDR #120 mL 10/25/23 08/30/24 Rx nebulization sotalol 80 mg tablet 40 mg (1/2 x 80 mg) PO BID #60 tabs 10/25/23 08/30/24 Rx Patient History Medical History H/O Hodgkin's lymphoma Neuromuscular disorder Senile osteoporosis Low blood pressure Arthritis Hypothyroidism Hodgkin disease diagnosed at age 27--had radiation and spleenectomy Sleep apnea cpap History of atrial fibrillation follows with Dr. Graves Surgical History S/P TAVR (transcatheter aortic valve replacement) 04/2023 History of esophagogastroduodenoscopy (EGD) History of tooth extraction History of anesthesia reaction woke up once during a colonoscopy History of colonoscopy History of lymph node biopsy malignant--hodgkin History of splenectomy History of cardiac cath 2015 no stents History of cardioversion History of cardiac radiofrequency ablation x2-- "treated for A-fib" Family History Other No family history of adverse response to anesthesia Social History Smoking Status: Former smoker Tobacco Type: Cigarettes Second Hand Exposure: No; Do You Dip or Chew Tobacco: No; Hx Alcohol Use: No Hx Substance Use: No Preferred Language: Portuguese Communication Ability: Effective Collections Director Required: No Beliefs That Will Affect Care: Gnosticist Gnosticist Beliefs: Does not eat pork. He is sabianist Current Living Situation: Spouse Feels Safe at Home: Yes Safety Concerns: Feels Safe At This Time Assistive Devices: Cane, CPAP, Glasses, Oxygen - Continuous and Walker Review of Systems Review of Systems: All systems reviewed & are unremarkable except as noted in HPI & below Physical Exam Physical Exam: Constitutional: Very thin and frail appearing. Eyes: Pupils are equal round and reactive to light. Conjunctivae are normal. Anicteric sclera. Ears nose, mouth and throat: No perioral cyanosis. Neck: Trachea is midline. Visual inspection is normal. Respiratory: Bibasilar crackles. Diminishment in the lower lobes. No wheezes or increased work of breathing. Cardiovascular: Regular rate and rhythm. Early diastolic rumble. 1+ edema of the lower extremities. Gastrointestinal: Normal bowel sounds, soft, nontender and nondistended. No hepatosplenomegaly noted. Musculoskeletal: No cyanosis. Patient is able to move all extremities. Strength is 5 out of 5 in the upper and lower extremities. Skin: No rashes, warm dry and intact. Neurologic: No obvious focal neurological deficits seen. Psychiatric: Alert and oriented x3 with a euthymic affect. Results & Data Results & Data Vital Signs (Past 12 Hours) Vital Signs Temp Pulse Pulse Resp BP Pulse Ox O2 Del Method 08/31/24 07:32 36.5 C 86 18 115/57 L 97 Nasal Cannula 08/31/24 07:29 80 20 90 Nasal Cannula 08/31/24 07:11 86 08/31/24 02:39 36.8 C 89 18 104/64 98 CPAP 08/31/24 00:35 88 08/31/24 00:27 96 H O2 Flow Rate 08/31/24 07:32 4 08/31/24 07:29 4 08/31/24 07:11 08/31/24 02:39 08/31/24 00:35 08/31/24 00:27 PG Care Time/CCT Total # of Minutes Spent Total Time Spent with Patient: Total time spent is greater than 50% in coordination of care (as documented) at patient's floor/unit and/or counseling patient: Coding Level of Care Code 81583 INT INP/OBS CARE 3/75MIN Diagnoses Pleural effusion due to CHF (congestive heart failure) I50.9 Interstitial lung disease J84.9 Respiratory acidosis E87.29 Metabolic alkalosis E87.3 PAF (paroxysmal atrial fibrillation) I48.0 Chronic hypoxic respiratory failure, on home oxygen therapy J96.11; Z99.81 Pulmonary hypertension I27.20 Severe protein-energy malnutrition E43
[2024-08-31] MEDS: SPIRONOLACTONE 12.5 MG TAB PO SCH (11:41)
--- NOTE | 2024-08-31 12:12 | Electrocardiogram Report ---
Test Reason : Blood Pressure : */* mmHG Vent. Rate : 88 BPM Atrial Rate : 88 BPM P-R Int : 194 ms QRS Dur : 88 ms QT Int : 390 ms P-R-T Axes : 86 -20 69 degrees QTcB Int : 471 ms Sinus rhythm with frequent Premature ventricular complexes Anteroseptal infarct , age undetermined Abnormal ECG When compared with ECG of 25-Oct-2023 10:15, Premature ventricular complexes are now Present Anteroseptal infarct is now Present Nonspecific T wave abnormality no longer evident in Inferior leads T wave inversion now evident in Anterior leads Confirmed by Mark Bertrand ([id number]) on 08/31/2024 12:11:54 PM Referred By: Confirmed By: Mark Bertrnad
--- NOTE | 2024-08-31 12:13 | Electrocardiogram Report ---
Test Reason : Blood Pressure : */* mmHG Vent. Rate : 84 BPM Atrial Rate : 84 BPM P-R Int : 188 ms QRS Dur : 96 ms QT Int : 418 ms P-R-T Axes : 72 -24 68 degrees QTcB Int : 493 ms Sinus rhythm with occasional Premature ventricular complexes Possible Left atrial enlargement Cannot rule out Anteroseptal infarct (cited on or before 30-Aug-2024) QTcB >= 480 msec Abnormal ECG When compared with ECG of 30-Aug-2024 14:28, (unconfirmed) No significant change was found Confirmed by Mark Bertrand ([id number]) on 08/31/2024 12:13:25 PM Referred By: REFERRED SELF Confirmed By: Mark Bertrand
[2024-08-31 12:19] LABS: Partial Thromboplastin Time 27 Seconds (21-31)
[2024-08-31 12:32] LABS: Base Excess VBG 22.6 mEq/L; HCO3 VBG 53 mmol/L; Oxygen Saturation VBG < 60.0 %; PCO2 VBG 85 mmHg (38-50); PO2 VBG < 20 mmHg
[2024-08-31] MEDS: HEPARIN 25000 UNIT/500 ML D5W 25,000 UNITS/500 ML BAG IV SCH (12:32)
[2024-08-31] MEDS: FUROSEMIDE 40 MG/4 ML VIAL IV SCH (17:29)
[2024-08-31 18:39] LABS: ANTI-Xa, UFH(UnfractionatedHep 0.58 IU/ml (0.3-0.7); INR 1.1 (0.9-1.1); Prothrombin Time 11.9 Seconds (9.0-12.0)
[2024-08-31] MEDS: Heparin IV Adult Wt-Based Low-Dose *NO* INITIAL Bolus Protocol IV STA (18:45)
[2024-09-01] MEDS: LEVOTHYROXINE SODIUM 75 MCG TABLET PO SCH (06:14)
[2024-09-01 07:29] LABS: Hematocrit (blood only) 31.7 % (42.0-52.0); Mean Corpuscular Hemoglobin 30.5 pg (25.0-34.0); Mean Corpuscular Hgb Conc 31.5 g/dL (32.0-36.0); Mean Corpuscular Volume 96.6 fL (80.0-100.0); Mean Platelet Volume 11.7 fL (9.4-12.4); Platelet Count 268 K/uL (130-400); RDW Coefficient of Variation 17.7 % (11.5-14.5); RDW Standard Deviation 62.1 fL (36.4-46.3); Red Blood Count 3.28 M/uL (4.70-6.10); White Blood Count 6.09 K/ul (4.8-10.8)
[2024-09-01 07:38] LABS: ANTI-Xa, UFH(UnfractionatedHep 0.65 IU/ml (0.3-0.7)
[2024-09-01 08:12] LABS: BUN Creatinine Ratio 27.9 (10-20); Blood Urea Nitrogen 19 mg/dl (6-23); Carbon Dioxide > 45 mmol/L (21-32); Chloride 82 mmol/L (98-107); Creatinine Clr Calc Pharmacy 88.3 ml/min; Glucose 110 mg/dl (70-99(Fasting)); Magnesium 1.8 mg/dl (1.7-2.4); Potassium 3.7 mmol/L (3.5-5.1); Sodium 136 mmol/L (136-145)
--- NOTE | 2024-09-01 08:17 | Pulmonology Progress Note ---
Date of Service September 01, 2024 Assessment & Plan (1) Pleural effusion due to CHF (congestive heart failure): (2) Interstitial lung disease: (3) Respiratory acidosis: (4) Metabolic alkalosis: (5) PAF (paroxysmal atrial fibrillation): (6) Chronic hypoxic respiratory failure, on home oxygen therapy: (7) Pulmonary hypertension: Plan CT chest 08/30/2024 personally reviewed: Moderate to large left-sided pleural effusion, small to moderate left-sided pleural effusion Increase interstitial marking especially in the right upper lobe on the periphery Compression atelectasis bilateral lower lobes more on the right Cardiomegaly Minimal mediastinal and hilar lymphadenopathy --Acute on chronic hypoxic respiratory failure On 2 L oxygen at home Likely secondary to bilateral pleural effusions S/p thoracentesis by IR at [facility] earlier this month Respiratory [employer] was positive for entero-/rhinovirus on 08/30/2024 BNP 1277 Given pulmonary hypertension, keep O2 saturation around 90-92% -- ILD Does have history of myositis Patient with a 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 Follows with [facility] pulmonology as well as rheumatology Not on any DMARDs I do not think this is exacerbation of his underlying ILD --JULIUS On CPAP at home --Pulmonary hypertension Likely type II --A-fib On Eliquis at home Plan: In/out: -1.7 L, urine output 2450, -2.6 L since coming to the hospital Continue with diuretics to keep the patient negative balance Continue with CPAP nightly and as needed shortness of breath Patient is for thoracentesis of the right side tomorrow at 9 AM, hold heparin drip at 5 AM tomorrow Case was discussed with primary team Please note the above document was generated using voice recognition software. It may contain grammatical, syntax or spelling errors.Any formal questions or concerns about the content, text or information contained within the body of this dictation should be directly addressed to the provider for clarification. Admission and Anticipated Discharge Date Admission Date: August 30, 2024 Subjective Patient seen and examined at bedside no acute distress, no adverse events overnight. Discussed with outgoing domestic helper He was saturating 96 to 97% on 2 L nasal cannula He has been diuresing well Denied any chest pain Fair appetite Did have some nausea overnight. Did not use her CPAP for the same reason last night Review of Systems 2 Review of Systems: All systems reviewed & are unremarkable except as noted in Subjective Physical Exam 2 Physical Exam: Constitutional: No acute distress HEENT: EOMI, PERRLA Respiratory system: Decreased air entry bilaterally, more decreased on the right side, no wheeze, no rhonchi, positive crackles bilaterally CVS: S1-S2 positive, accentuated P2 Abdomen: Soft, nontender, nondistended, positive bowel sounds x4 Extremities: +2 pulses bilaterally radialis/ dorsalis pedis, no cyanosis, +1 pitting edema bilateral lower extremity Neuro: Awake alert oriented x3 Psych: Normal mood and affect G/U: No Whitten Skin: no rashes, warm and dry Lymphatic: no cervical or axillary lymphadenopathy Results & Data Results & Data Vital Signs (Past 12 Hours) Vital Signs Temp Pulse Pulse Resp BP Pulse Ox O2 Del Method 09/01/24 07:44 89 18 97 Nasal Cannula 09/01/24 04:05 36.5 C 80 16 130/64 100 Nasal Cannula 09/01/24 02:01 76 08/31/24 22:52 36.5 C 81 16 117/61 97 Nasal Cannula 08/31/24 20:53 Nasal Cannula 08/31/24 20:44 94 H 15 90 Nasal Cannula O2 Flow Rate 09/01/24 07:44 2 09/01/24 04:05 3 09/01/24 02:01 08/31/24 22:52 3 08/31/24 20:53 3 08/31/24 20:44 4 Laboratory Results 09/01/24 06:49 PG Care Time/CCT Total # of Minutes Spent Total Time Spent with Patient: Total time spent is greater than 50% in coordination of care (as documented) at patient's floor/unit and/or counseling patient: Coding Level of Care Code 64764 SUB INP/OBS CARE 3/50MIN Diagnoses Pleural effusion due to CHF (congestive heart failure) I50.9 Interstitial lung disease J84.9 Respiratory acidosis E87.29 Metabolic alkalosis E87.3 PAF (paroxysmal atrial fibrillation) I48.0 Chronic hypoxic respiratory failure, on home oxygen therapy J96.11; Z99.81 Pulmonary hypertension I27.20
--- NOTE | 2024-09-01 10:27 | Hospitalist Progress Note ---
Date of Service September 01, 2024 Assessment & Plan (1) H/O Hodgkin's lymphoma: (2) Pulmonary edema: (3) Mitral regurgitation: (4) S/P ablation of atrial fibrillation: (5) Nonobstructive atherosclerosis of coronary artery: (6) Status post transcatheter aortic valve replacement (TAVR) using bioprosthesis: (7) Heart failure with preserved ejection fraction: (8) Heart disease: (9) Hodgkin disease: (10) History of atrial fibrillation: Plan 73-year-old male with a past medical history of pulmonary hypertension, A-fib, on AC, CAD, Hypothyroidism, mitral valve stenosis, Raynaud's disease, s/p TAVR, venous insufficiency, esophageal dysmotility, polymyositis, Hodgkin's lymphoma, JULIUS, ILD who presents to the ED on 08/30/2024 with complaints of worsening shortness of breath and pedal edema Acute diastolic heart failure: Recent right lung thoracentesis on [address] noted bilateral pleural effusion (R>L), basilar atelectasis Continue IV lasix Monitor I/O, daily weight Cardiology evaluation noted Discussed with Circus Performer who recommends to continue holding eliquis, continue hep gtt for now and plan for possible thoracentesis tomorrow Hyponatremia: Sodium on admission [id number], likely secondary to fluid overload Sodium is 136 this AM Monitor Chronic hypoxic respiratory failure Hx pulmonary hypertension Hx ILD Recently placed on 2 L oxygen [id number], originally was only on oxygen at bedtime Monitor Continue supportive care for rhinovirus Hx CAD/AF/TAVR: Continue aspirin, sotalol Home eliquis on hold for possible thoracentesis. Currently on hep gtt for now Hx hypothyroidism: Continue levothyroxine Full code DVT prophylaxis: Eliquis on hold as above. Hep gtt on I spent a total of 50 minutes coordinating, documenting and providing care for this patient excluding time spent in performance of separately billed services Admission and Anticipated Discharge Date Admission Date: August 30, 2024 Subjective Patient seen and examined Reports cough and SOB improving No new complaints Physical Exam Constitutional: + well hydrated and + thin; no acute dis tress Eyes: PERRL, conjunctivae normal, anicteric sclerae ENMT: external ear and nose normal, oropharynx normal Respiratory: On nasal cannula, diminished breath sounds Cardiovascular: Rate/Rhythm: regular rate and regular rhythm Gastrointestinal (Abdomen): normal bowel sounds, soft, nontender, no hepatosplenomegaly Musculoskeletal: Pedal edema improved Neurologic: PERRL, EOMI, accommodation nl, no face palsy, no dysarthria Psychiatric: A+Ox3, euthymic affect Results & Data Results & Data Vital Signs (Past 12 Hours) Vital Signs Temp Pulse Pulse Resp BP BP Pulse Ox 09/01/24 08:23 36.7 C 88 18 104/59 L 92 09/01/24 08:17 09/01/24 07:44 89 18 97 09/01/24 04:05 36.5 C 80 16 130/64 100 09/01/24 02:01 76 08/31/24 22:52 36.5 C 81 16 117/61 97 O2 Del Method O2 Flow Rate 09/01/24 08:23 Nasal Cannula 2 09/01/24 08:17 Nasal Cannula 2 09/01/24 07:44 Nasal Cannula 2 09/01/24 04:05 Nasal Cannula 3 09/01/24 02:01 08/31/24 22:52 Nasal Cannula 3 Laboratory Results Abnormal lab results 09/01/24 Range/Units 06:49 RBC 3.28 L (4.70-6.10) M/uL Hgb 10.0 L (14.0-18.0) g/dl Hct 31.7 L (42.0-52.0) % MCHC 31.5 L (32.0-36.0) g/dL RDW Std Deviation 62.1 H (36.4-46.3) fL RDW Coeff of Reza 17.7 H (11.5-14.5) % Chloride 82 L (98-107) mmol/L Carbon Dioxide > 45 H* (21-32) mmol/L BUN/Creatinine Ratio 27.9 H (10-20) Glucose 110 H (70-99(Fasting)) mg/dl
--- NOTE | 2024-09-01 12:37 | Cardiology Progress Note ---
Date of Service September 01, 2024 Assessment & Plan (1) Heart failure, diastolic, with acute decompensation: (2) Nonobstructive atherosclerosis of coronary artery: (3) Status post transcatheter aortic valve replacement (TAVR) using bioprosthesis: (4) Interstitial lung disease: (5) Acute hyponatremia: (6) Mitral regurgitation: (7) S/P ablation of atrial fibrillation: (8) S/P ablation of atrial flutter: (9) Protein calorie malnutrition: Plan Complex cachectic appearing 73-year-old male with significant underlying interstitial lung disease admitted with signs and symptoms of acute decompensated heart failure. Resting echocardiography in May 2024 with preserved LV systolic function, EF 55 to 59%, moderate to severe perivalvular (TAVR) aortic regurgitation, moderate to severe tricuspid regurgitation, pulmonary hypertension with estimated PASP 56 mmHg. Right > left pleural effusion. right sided thoracentesis planned for tomorrow with pulm. Eliquis on hold. Started on IV heparin. Continue diuresis with IV lasix 40 mg BID. Good urine output since admission. Weight trending downward. Low dose spironolactone added yesterday and tolerating at 12.5 mg daily Supplement potassium 20 meq this morning as well Monitor I+O's Daily weight with standing scale stable renal function. Will follow. Case discussed with Dr. Russell I spent a total of 30 minutes on the date of service in preparation, delivery, and documentation of the care provided to this patient, excluding any time spent in the performance of separately billed services. Kristi Raymond PA-C Department of Cardiology, [facility] This chart was completed in part utilizing Speech Voice Recognition Software. Grammatical errors, random word insertions, pronoun errors, and incomplete sentences are an occasional consequence of this system due to software limitations, ambient noise, and hardware issues. Any formal questions or concerns about the content, text, or information contained within the body of this dictation should be directly addressed to the provider for clarification. Admission and Anticipated Discharge Date Admission Date: August 30, 2024 Supervising Physician Co-Signing Physician Notes I have personally performed a history and physical examination on the patient. I have reviewed the advance practitioner's documentation, and I agree with, and take responsibility for the plan of care. 73-year-old male with acute hypoxic respiratory failure of mixed etiology including interstitial lung disease and acute heart failure with preserved ejection fraction. Most recent echocardiogram demonstrating preserved LV systolic function, TAVR with moderate to severe paravalvular regurgitation, moderate to severe tricuspid regurgitation with moderate pulmonary hypertension. Clinically improving with IV diuresis from a cardiovascular perspective. Scheduled for thoracentesis tomorrow 09/02/2024. Continue IV diuresis as hemodynamics allow. Consider transition to oral diuretic therapy in next 24-48 hours. Continue low-dose Aldactone (added 08/31/2024). Monitor fluid balance, daily weight, GFR, and electrolytes. Eliquis on hold in anticipation of thoracentesis. Continue IV heparin. Sotalol for rhythm control. Restart Eliquis post procedure. I spent a total of 25 minutes on the date of service in preparation, delivery, and documentation of the care provided to this patient, excluding any time spent in the performance of separately billed services. Nikolas Russell DO, [facility] Subjective Patient sitting in chair at time of evaluation. Feeling much improved from admission. reports significant diuresis overnight. Down 5 kg. Reports his edema has improved. Still has dyspnea with ambulation in the room, but improved. Pulm consulted this morning and planning for thoracentesis tomorrow Review of Systems Review of Systems: All systems reviewed & are unremarkable except as noted in HPI & below Physical Exam Physical Exam: General: A&Ox3. NAD. Cachectic HENT: Normocephalic. Atraumatic. Eyes: PER. Conjunctiva pink, sclera clear. Neck: + JVD (sitting upright) Heart: RRR, 90 bpm. Short soft early systolic and diastolic murmurs heard best at the lower left sternal border. Apical systolic murmur. Lungs: Significantly diminished. Decreased/absent breath sounds at the bases. Abdomen: +BS. Soft. Nontender. No masses or organomegaly. Extremities: trace pretibial and ankle edema. No cyanosis. Limited neurological examination is without focal deficits. Pulses: radial=2/4, posterior tibial=1/4. Results & Data Vital Signs (Past 12 Hours) Vital Signs Temp Pulse Pulse Resp BP BP Pulse Ox 09/01/24 10:49 36.5 C 86 18 91/48 L 95 09/01/24 08:23 36.7 C 88 18 104/59 L 92 09/01/24 08:17 09/01/24 07:44 89 18 97 09/01/24 04:05 36.5 C 80 16 130/64 100 09/01/24 02:01 76 O2 Del Method O2 Flow Rate 09/01/24 10:49 Nasal Cannula 2 09/01/24 08:23 Nasal Cannula 2 09/01/24 08:17 Nasal Cannula 2 09/01/24 07:44 Nasal Cannula 2 09/01/24 04:05 Nasal Cannula 3 09/01/24 02:01 Laboratory Results Coagulation 08/31/24 Range/Units 17:52 PT 11.9 (9.0-12.0) Seconds CBC 09/01/24 Range/Units 06:49 WBC 6.09 (4.8-10.8) K/ul RBC 3.28 L (4.70-6.10) M/uL Hgb 10.0 L (14.0-18.0) g/dl Hct 31.7 L (42.0-52.0) % Plt Count 268 (130-400) K/uL Comprehensive Metabolic Panel 09/01/24 Range/Units 06:49 Sodium 136 (136-145) mmol/L Potassium 3.7 (3.5-5.1) mmol/L Chloride 82 L (98-107) mmol/L Carbon Dioxide > 45 H* (21-32) mmol/L BUN 19 (6-23) mg/dl Creatinine 0.68 (0.6-1.4) mg/dl Glucose 110 H (70-99(Fasting)) mg/dl Calcium 9.0 (8.6-10.3) mg/dl Intake and Output 08/31/24 09/01/24 09/01/24 22:59 06:59 14:59 Intake Total 150 / 390 317.9 / 317.9 Output Total 2200 / 2450 250 / 2450 Balance -2049 / -2059 -250 / -2059 317.9 / 317.9 Intake: IV 317.9 / 317.9 Heparin 36148 Unit/500 ml D5w 317.9 / 317.9 25,000 units In 500 ml @ 850 UNITS/HR 17 mls/hr IV .Q24H [facility] Rx#:[id number] Oral 150 / 390 Output: Urine 2200 / 2450 250 / 2450 Other: # Unmeasured Voids 2 Weight 65.5 kg Weight Measurement Method Standing Scale Diagnostic Findings Telemetry reviewed: NSR in the 80-90's. No arrhythmias
--- NOTE | 2024-09-01 14:49 | Electrocardiogram Report ---
Test Reason : Blood Pressure : */* mmHG Vent. Rate : 86 BPM Atrial Rate : 86 BPM P-R Int : 188 ms QRS Dur : 96 ms QT Int : 394 ms P-R-T Axes : 75 -20 53 degrees QTcB Int : 471 ms Sinus rhythm with occasional Premature ventricular complexes and Premature atrial complexes Minimal voltage criteria for LVH, may be normal variant Abnormal ECG When compared with ECG of 31-Aug-2024 05:34, Premature atrial complexes are now Present Confirmed by Shay Rodriguez ([id number]) on 09/01/2024 2:49:28 PM Referred By: REFERRED SELF Confirmed By: Shay Rodriguez
[2024-09-02 07:45] LABS: Hematocrit (blood only) 29.8 % (42.0-52.0); Hemoglobin 9.4 g/dl (14.0-18.0); Mean Corpuscular Hemoglobin 30.3 pg (25.0-34.0); Mean Corpuscular Hgb Conc 31.5 g/dL (32.0-36.0); Mean Corpuscular Volume 96.1 fL (80.0-100.0); Mean Platelet Volume 11.3 fL (9.4-12.4); Platelet Count 266 K/uL (130-400); RDW Coefficient of Variation 17.6 % (11.5-14.5); RDW Standard Deviation 60.7 fL (36.4-46.3); White Blood Count 6.74 K/ul (4.8-10.8)
[2024-09-02 08:01] LABS: Albumin Level 3.5 gm/dl (3.4-5.0); BUN Creatinine Ratio 36.5 (10-20); Bilirubin,Total 0.6 mg/dl (0.2-1.0); Blood Urea Nitrogen 23 mg/dl (6-23); Calcium 9.1 mg/dl (8.6-10.3); Carbon Dioxide > 45 mmol/L (21-32); Chloride 82 mmol/L (98-107); Creatinine Clr Calc Pharmacy 95.2 ml/min; Glucose 109 mg/dl (70-99(Fasting)); Lactate Dehydrogenase 204 U/L (86-244); Magnesium 1.8 mg/dl (1.7-2.4); Phosphorus 3.3 mg/dl (2.5-4.9); Potassium 4.2 mmol/L (3.5-5.1); Sodium 137 mmol/L (136-145)
--- NOTE | 2024-09-02 08:16 | XRay Report ---
XR chest 1V portable CLINICAL HISTORY: f/u COMPARISON STUDY: 08/30/2024 FINDINGS: Stable cardiac valve repair. Stable mild cardiomegaly with pulmonary vascular congestion. S table diffuse interstitial pulmonary opacities. Stable opacity in the lung bases with blunting of the costophrenic angles and obscuration of the diaphragm consistent with consolidation and small pleural effusions. No pneumothorax. IMPRESSION: Stable exam. ACT 112: Negative or not required by law. Electronically signed by: Lionel Arguello M.D. 09/02/2024 8:14 AM
--- NOTE | 2024-09-02 08:37 | Pulmonology Progress Note ---
Date of Service September 02, 2024 Assessment & Plan (1) Pleural effusion due to CHF (congestive heart failure): (2) Interstitial lung disease: (3) Respiratory acidosis: (4) Metabolic alkalosis: (5) PAF (paroxysmal atrial fibrillation): (6) Chronic hypoxic respiratory failure, on home oxygen therapy: (7) Pulmonary hypertension: Plan CT chest 08/30/2024 personally reviewed: Moderate to large left-sided pleural effusion, small to moderate left-sided pleural effusion Increase interstitial marking especially in the right upper lobe on the periphery Compression atelectasis bilateral lower lobes more on the right Cardiomegaly Minimal mediastinal and hilar lymphadenopathy --Acute on chronic hypoxic respiratory failure On 2 L oxygen at home Likely secondary to bilateral pleural effusions S/p thoracentesis by IR at [facility] earlier this month Respiratory [employer] was positive for entero-/rhinovirus on 08/30/2024 BNP 1277 Given pulmonary hypertension, keep O2 saturation around 90-92% -- ILD Does have history of myositis Patient with a 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 Follows with [facility] pulmonology as well as rheumatology Not on any DMARDs I do not think this is exacerbation of his underlying ILD --JULIUS On CPAP at home --Pulmonary hypertension Likely type II --A-fib On Eliquis at home Plan: In/out: -1.7 L, urine output 2450, -2.6 L since coming to the hospital Chest x-ray from today still shows persistent effusion bilaterally, right greater than left For thoracentesis today Continue with diuretics to keep the patient negative balance Continue with CPAP nightly and as needed shortness of breath Case was discussed with primary team No further recommendation from pulmonary perspective, will sign off Please call directly with any questions Please note the above document was generated using voice recognition software. It may contain grammatical, syntax or spelling errors.Any formal questions or concerns about the content, text or information contained within the body of this dictation should be directly addressed to the provider for clarification. Admission and Anticipated Discharge Date Admission Date: August 30, 2024 Subjective Patient seen and examined at bedside. No acute distress, no adverse events overnight He was resting comfortably Saturating well on 2 L nasal cannula Denied any nausea or vomiting Fair appetite Review of Systems 2 Review of Systems: All systems reviewed & are unremarkable except as noted in Subjective Physical Exam 2 Physical Exam: Constitutional: No acute distress HEENT: EOMI, PERRLA Respiratory system: Decreased air entry bilaterally, no wheeze, no rhonchi, positive crackles bilaterally CVS: S1-S2 positive, accentuated P2 Abdomen: Soft, nontender, nondistended, positive bowel sounds x4 Extremities: +2 pulses bilaterally radialis/ dorsalis pedis, no cyanosis, +1 pitting edema bilateral lower extremity Neuro: Awake alert oriented x3 Psych: Normal mood and affect G/U: No Whitten Skin: no rashes, warm and dry Lymphatic: no cervical or axillary lymphadenopathy Results & Data Results & Data Vital Signs (Past 12 Hours) Vital Signs Temp Pulse Pulse Resp BP Pulse Ox O2 Del Method 09/02/24 07:30 90 16 98 Nasal Cannula 09/02/24 02:43 36.7 C 83 18 116/56 L 97 Nasal Cannula 09/01/24 23:24 78 09/01/24 22:39 36.8 C 86 18 117/58 L 96 Nasal Cannula O2 Flow Rate 09/02/24 07:30 2 09/02/24 02:43 09/01/24 23:24 09/01/24 22:39 Laboratory Results 09/02/24 06:59 09/02/24 06:59 PG Care Time/CCT Total # of Minutes Spent Total Time Spent with Patient: Total time spent is greater than 50% in coordination of care (as documented) at patient's floor/unit and/or counseling patient: Coding Level of Care Code 02304 SUB INP/OBS CARE 2/35MIN Diagnoses Pleural effusion due to CHF (congestive heart failure) I50.9 Interstitial lung disease J84.9 Respiratory acidosis E87.29 Metabolic alkalosis E87.3 PAF (paroxysmal atrial fibrillation) I48.0 Chronic hypoxic respiratory failure, on home oxygen therapy J96.11; Z99.81 Pulmonary hypertension I27.20
--- NOTE | 2024-09-02 10:01 | XRay Report ---
XR chest 1V not portable CLINICAL HISTORY: s/p rt thora COMPARISON STUDY: 09/02/2024 FINDINGS: Stable cardiac valve repair. Stable cardiomegaly with mild pulmonary vascular congestion. S table diffuse interstitial pulmonary opacities. There are small bilateral pleural effusions with vidhi cent lung base consolidation, grossly stable. No pneumothorax. IMPRESSION: No pneumothorax seen. Otherwise as described. ACT 112: Negative or not required by law. Electronically signed by: Lionel Arguello M.D. 09/02/2024 10:00 AM
--- NOTE | 2024-09-02 10:33 | Hospitalist Progress Note ---
Date of Service September 02, 2024 Assessment & Plan (1) H/O Hodgkin's lymphoma: (2) Pulmonary edema: (3) Mitral regurgitation: (4) S/P ablation of atrial fibrillation: (5) Nonobstructive atherosclerosis of coronary artery: (6) Status post transcatheter aortic valve replacement (TAVR) using bioprosthesis: (7) Heart failure with preserved ejection fraction: (8) Heart disease: (9) Hodgkin disease: (10) History of atrial fibrillation: Plan 73-year-old male with a past medical history of pulmonary hypertension, A-fib, on AC, CAD, Hypothyroidism, mitral valve stenosis, Raynaud's disease, s/p TAVR, venous insufficiency, esophageal dysmotility, polymyositis, Hodgkin's lymphoma, JULIUS, ILD who presents to the ED on 08/30/2024 with complaints of worsening shortness of breath and pedal edema Acute diastolic heart failure: Recent right lung thoracentesis on [address] noted bilateral pleural effusion (R>L), basilar atelectasis Continue IV lasix Monitor I/O, daily weight Cardiology evaluation noted Got Thoracentesis (R) this AM. 400cc removed per Pulm. Follow up fluid analysis/micro/cytology Hyponatremia: Sodium on admission was 127, likely secondary to fluid overload Sodium is 137 this AM Monitor Chronic hypoxic respiratory failure Hx pulmonary hypertension Hx ILD Recently placed on 2 L oxygen [id number], originally was only on oxygen at bedtime Monitor Continue supportive care for rhinovirus Hx CAD/AF/TAVR: Continue aspirin, sotalol Home eliquis was initially held for thoracentesis. Resume eliquis this evening Hx hypothyroidism: Continue levothyroxine Full code DVT prophylaxis: Resume eliquis this evening after stopping hep gtt I spent a total of 50 minutes coordinating, documenting and providing care for this patient excluding time spent in performance of separately billed services Admission and Anticipated Discharge Date Admission Date: August 30, 2024 Subjective Patient seen and examined Reports improvement in cough and shortness of breath Got thoracentesis this AM Physical Exam Constitutional: + well hydrated and + thin; no acute dis tress Eyes: PERRL, conjunctivae normal, anicteric sclerae ENMT: external ear and nose normal, oropharynx normal Respiratory: On nasal cannula. Diminished breath sounds Cardiovascular: Rate/Rhythm: regular rate and regular rhythm Gastrointestinal (Abdomen): normal bowel sounds, soft, nontender, no hepatosplenomegaly Musculoskeletal: +pedal edema Neurologic: PERRL, EOMI, accommodation nl, no face palsy, no dysarthria Psychiatric: A+Ox3, euthymic affect Results & Data Results & Data Vital Signs (Past 12 Hours) Vital Signs Temp Pulse Pulse Resp BP Pulse Ox O2 Del Method 09/02/24 10:00 36.6 C 89 18 104/48 L 96 Nasal Cannula 09/02/24 07:30 90 16 98 Nasal Cannula 09/02/24 02:43 36.7 C 83 18 116/56 L 97 Nasal Cannula 09/01/24 23:24 78 09/01/24 22:39 36.8 C 86 18 117/58 L 96 Nasal Cannula O2 Flow Rate 09/02/24 10:00 2 09/02/24 07:30 2 09/02/24 02:43 09/01/24 23:24 09/01/24 22:39 Laboratory Results Abnormal lab results 09/02/24 09/02/24 Range/Units 06:59 10:00 RBC 3.10 L (4.70-6.10) M/uL Hgb 9.4 L (14.0-18.0) g/dl Hct 29.8 L (42.0-52.0) % MCHC 31.5 L (32.0-36.0) g/dL RDW Std Deviation 60.7 H (36.4-46.3) fL RDW Coeff of Reaz 17.6 H (11.5-14.5) % Chloride 82 L (98-107) mmol/L Carbon Dioxide > 45 H* (21-32) mmol/L BUN/Creatinine Ratio 36.5 H (10-20) Glucose 109 H (70-99(Fasting)) mg/dl Pleural pH 7.54 H (7.3-7.4)
[2024-09-02 11:11] LABS: Total Protein Pleural Fluid 3.4 gm/dl
[2024-09-02 11:22] LABS: Appearance Pleural Fluid Cloudy; Color Pleural Fluid Amber; RBC Pleural Fluid Auto 19000 /uL; Source Pleural Fluid Right Lung; WBC Pleural Fluid Auto 1019 /uL
[2024-09-02 12:54] LABS: Lymphocytes, Fluid 82 %; Mono,Macrophage,Mesothelial 15 %; Neutrophils, Fluid 3 %
--- NOTE | 2024-09-02 13:45 | Ultrasound Report ---
ULTRASOUND-GUIDED RIGHT THORACENTESIS CLINICAL HISTORY: Right pleural effusion PROCEDURE: Procedure and risks were explained. Informed consent was obtained. A final timeout was com pleted. The right posterior thorax was prepped and draped in sterile fashion. 1% lidocaine was utiliz ed for skin anesthesia. Utilizing ultrasound guidance, a 5 Romanian safety centesis catheter was advanced into the right pleura l effusion. Ultrasound images were obtained. A total of 400 mL of denise-colored pleural fluid was rem kirt and sent to the lab. The catheter was removed and Band-Aid applied. The patient tolerated the pr ocedure well. A chest x-ray will be obtained post procedure. Vital signs will be monitored on the april or. IMPRESSION: Ultrasound-guided right thoracentesis as above. Performed, dictated, and signed by Andre Montague PA-C; to be co-signed by Dr. Lionel Arguello. Electronically signed by: Lionel Arguello M.D. 09/02/2024 2:25 PM
--- NOTE | 2024-09-02 14:23 | Cardiology Progress Note ---
Date of Service September 02, 2024 Assessment & Plan (1) Heart failure, diastolic, with acute decompensation: (2) Nonobstructive atherosclerosis of coronary artery: (3) Status post transcatheter aortic valve replacement (TAVR) using bioprosthesis: (4) Interstitial lung disease: (5) Acute hyponatremia: (6) Mitral regurgitation: (7) S/P ablation of atrial fibrillation: (8) S/P ablation of atrial flutter: (9) Protein calorie malnutrition: Plan 09/01/24 Complex cachectic appearing 73-year-old male with significant underlying interstitial lung disease admitted with signs and symptoms of acute decompensated heart failure. Resting echocardiography in May 2024 with preserved LV systolic function, EF 55 to 59%, moderate to severe perivalvular (TAVR) aortic regurgitation, moderate to severe tricuspid regurgitation, pulmonary hypertension with estimated PASP 56 mmHg. Right > left pleural effusion. right sided thoracentesis planned for tomorrow with pulm. Eliquis on hold. Started on IV heparin. Continue diuresis with IV lasix 40 mg BID. Good urine output since admission. Weight trending downward. Low dose spironolactone added yesterday and tolerating at 12.5 mg daily Supplement potassium 20 meq this morning as well 09/02/24: patient is s/p right thoracentesis this morning removing 600 ml tolerated procedure. Oxygen saturations back to baseline requiring 2 L (chronic) Continue IV furosemide this afternoon Hold morning dose and re-evaluate. Consider transitioning to oral furosemide Continue spironolactone 12.5 mg daily Monitor I+O's Daily weight with standing scale stable renal function. Will follow. Case discussed with Dr. Russell I spent a total of 30 minutes on the date of service in preparation, delivery, and documentation of the care provided to this patient, excluding any time spent in the performance of separately billed services. Kristi Raymond PA-C Department of Cardiology, [facility] This chart was completed in part utilizing Speech Voice Recognition Software. Grammatical errors, random word insertions, pronoun errors, and incomplete sentences are an occasional consequence of this system due to software limitations, ambient noise, and hardware issues. Any formal questions or concerns about the content, text, or information contained within the body of this dictation should be directly addressed to the provider for clarification. Admission and Anticipated Discharge Date Admission Date: August 30, 2024 Supervising Physician Co-Signing Physician Notes I have personally performed a history and physical examination on the patient. I have reviewed the advance practitioner's documentation, and I agree with, and take responsibility for the plan of care. 73-year-old male with acute hypoxic respiratory failure of mixed etiology including interstitial lung disease and acute heart failure with preserved ejection fraction. Most recent echocardiogram demonstrating preserved LV systolic function, TAVR with moderate to severe paravalvular regurgitation, moderate to severe tricuspid regurgitation with moderate pulmonary hypertension. Clinically improving with IV diuresis from a cardiovascular perspective. Improved after thoracentesis today 09/02/2024. Continue IV diuresis as hemodynamics allow. Consider transition to oral diuretic therapy in next 24-48 hours. Continue low-dose Aldactone (added 08/31/2024). Monitor fluid balance, daily weight, GFR, and electrolytes. Resume Eliquis. Sotalol for rhythm control. I spent a total of 25 minutes on the date of service in preparation, delivery, and documentation of the care provided to this patient, excluding any time spent in the performance of separately billed services. Nikolas Russell DO, [facility] Subjective Patient resting in bed. Underwent right sided thoracentesis this morning. Tolerated procedure. Post procedure chest xray without pneumothorax. Reports his SOB has improved. Back to baseline. No chest pain. Orthopnea improving. No edema Review of Systems Review of Systems: All systems reviewed & are unremarkable except as noted in HPI & below Physical Exam Physical Exam: General: A&Ox3. NAD. Cachectic HENT: Normocephalic. Atraumatic. Eyes: PER. Conjunctiva pink, sclera clear. Neck: + JVD (sitting upright) Heart: RRR, 90 bpm. systolic and diastolic murmurs heard best at the lower left sternal border. Apical systolic murmur. Lungs: Decreased breath sounds b/l with dry rales b/l Abdomen: +BS. Soft. Nontender. No masses or organomegaly. Extremities: trace pretibial and ankle edema. No cyanosis. Limited neurological examination is without focal deficits. Pulses: radial=2/4, posterior tibial=1/4. Results & Data Vital Signs (Past 12 Hours) Vital Signs Temp Pulse Pulse Resp BP BP Pulse Ox 09/02/24 11:45 89 112/58 L 09/02/24 11:15 90 113/52 L 09/02/24 10:54 09/02/24 10:45 93 H 112/62 09/02/24 10:30 89 117/64 97 09/02/24 10:15 88 18 114/60 98 09/02/24 10:00 36.6 C 89 18 104/48 L 96 09/02/24 07:30 90 16 98 09/02/24 07:00 89 09/02/24 02:43 36.7 C 83 18 116/56 L 97 O2 Del Method O2 Flow Rate 09/02/24 11:45 09/02/24 11:15 09/02/24 10:54 Nasal Cannula, CPAP 2 09/02/24 10:45 09/02/24 10:30 Nasal Cannula 2 09/02/24 10:15 Nasal Cannula 2 09/02/24 10:00 Nasal Cannula 2 09/02/24 07:30 Nasal Cannula 2 09/02/24 07:00 09/02/24 02:43 Nasal Cannula Laboratory Results Cardiac Enzymes 09/02/24 Range/Units 06:59 Lactate Dehydrogenase 204 (86-244) U/L CBC 09/02/24 Range/Units 06:59 WBC 6.74 (4.8-10.8) K/ul RBC 3.10 L (4.70-6.10) M/uL Hgb 9.4 L (14.0-18.0) g/dl Hct 29.8 L (42.0-52.0) % Plt Count 266 (130-400) K/uL Comprehensive Metabolic Panel 09/02/24 Range/Units 06:59 Sodium 137 (136-145) mmol/L Potassium 4.2 (3.5-5.1) mmol/L Chloride 82 L (98-107) mmol/L Carbon Dioxide > 45 H* (21-32) mmol/L BUN 23 (6-23) mg/dl Creatinine 0.63 (0.6-1.4) mg/dl Glucose 109 H (70-99(Fasting)) mg/dl Calcium 9.1 (8.6-10.3) mg/dl Total Protein 7.0 (6.0-8.3) gm/dl Albumin 3.5 (3.4-5.0) gm/dl Intake and Output 09/01/24 09/02/24 09/02/24 22:59 06:59 14:59 Intake Total 398.900 / 1276.517 319.717 / 1276.517 584.283 / 584.283 Output Total 1700 / 1700 Balance 398.900 / 301.517 319.717 / 301.517 -1115.717 / -1115.717 Intake: IV 198.900 / 686.517 169.717 / 686.517 34.283 / 34.283 Heparin 68515 Unit/500 ml D5w 198.900 / 686.517 169.717 / 686.517 34.283 / 34.283 25,000 units In 500 ml @ 850 UNITS/HR 17 mls/hr IV .Q24H [facility] Rx#:[id number] Oral 200 / 590 150 / 590 550 / 550 Output: Urine 1700 / 1700 Other: # Unmeasured Voids 1 7 Weight 65.4 kg Diagnostic Findings Telemetry reviewed: NSR 80-90's. Short non sustained run of atrial tach overnight, lasting 30 seconds. Medications Administered Current Inpatient Medications Acetaminophen (Acetaminophen 325 Mg Tab) 650 mg PO Q4H PRN PRN Reason: Pain or Fever Stop: 09/29/24 18:39 Last Admin: 08/31/24 17:28 Dose: 650 mg Albuterol (Albut/Ipratrop 3mg/0.5mg Neb 3 Ml Vial) 3 ml NEB BIDR [facility]ST; Protocol Stop: 09/29/24 18:59 Last Admin: 09/02/24 07:28 Dose: 3 ml Albuterol (Albut/Ipratrop 3mg/0.5mg Neb 3 Ml Vial) 3 ml NEB Q6R PRN; Protocol PRN Reason: Shortness Of Breath Stop: 09/29/24 21:30 Apixaban (Apixaban 5 Mg Tablet) 5 mg PO BID [facility] Stop: 10/02/24 20:59 Atorvastatin Calcium (Atorvastatin 20 Mg Tab) 20 mg PO QAM [facility] Stop: 09/30/24 08:59 Last Admin: 09/02/24 10:25 Dose: 20 mg Cyanocobalamin (Cyanocobalamin (B-12) 500 Mcg Tablet) 1,000 mcg PO QAM [facility] Stop: 09/30/24 08:59 Last Admin: 09/02/24 10:24 Dose: 1,000 mcg Furosemide (Furosemide 40 Mg/4 Ml Vial) 40 mg IV BID17 [facility] Stop: 09/30/24 08:59 Last Admin: 09/02/24 10:31 Dose: 40 mg Levothyroxine Sodium (Levothyroxine Sodium 75 Mcg Tablet) 75 mcg PO DAILYBB [facility] Stop: 10/01/24 06:29 Last Admin: 09/02/24 06:12 Dose: 75 mcg Sotalol HCl (Sotalol Hcl 80 Mg Tab) 40 mg PO BID [facility] Stop: 09/29/24 20:59 Last Admin: 09/02/24 10:24 Dose: 40 mg Spironolactone (Spironolactone 12.5 Mg Tab) 12.5 mg PO DAILY [facility] Stop: 09/30/24 10:59 Last Admin: 09/02/24 10:23 Dose: 12.5 mg Vitamin D (Cholecalciferol 25 Mcg (1000 Units) Tab) 25 mcg PO QAM [facility] Stop: 09/30/24 08:59 Last Admin: 09/02/24 10:22 Dose: 25 mcg
[2024-09-02] MEDS: APIXABAN 5 MG TABLET PO SCH (21:21)
[2024-09-03 08:01] LABS: Hematocrit (blood only) 29.7 % (42.0-52.0); Hemoglobin 9.3 g/dl (14.0-18.0); Mean Corpuscular Hemoglobin 30.3 pg (25.0-34.0); Mean Corpuscular Hgb Conc 31.3 g/dL (32.0-36.0); Mean Corpuscular Volume 96.7 fL (80.0-100.0); Mean Platelet Volume 11.4 fL (9.4-12.4); Platelet Count 292 K/uL (130-400); RDW Coefficient of Variation 17.5 % (11.5-14.5); RDW Standard Deviation 62.1 fL (36.4-46.3); Red Blood Count 3.07 M/uL (4.70-6.10); White Blood Count 6.56 K/ul (4.8-10.8)
[2024-09-03 08:12] LABS: BUN Creatinine Ratio 37.3 (10-20); Blood Urea Nitrogen 22 mg/dl (6-23); Calcium 9.2 mg/dl (8.6-10.3); Carbon Dioxide > 45 mmol/L (21-32); Chloride 81 mmol/L (98-107); Creatinine Clr Calc Pharmacy 101.8 ml/min; Glucose 118 mg/dl (70-99(Fasting)); Magnesium 1.8 mg/dl (1.7-2.4); Phosphorus 3.4 mg/dl (2.5-4.9); Sodium 136 mmol/L (136-145)
[2024-09-03 08:52] LABS: Base Excess VBG 24.5 mEq/L; HCO3 VBG 55 mmol/L; Oxygen Saturation VBG < 60.0 %; PCO2 VBG 89 mmHg (38-50); PO2 VBG 31 mmHg
--- NOTE | 2024-09-03 13:50 | Cardiology Progress Note ---
Date of Service September 03, 2024 Assessment & Plan (1) Heart failure, diastolic, with acute decompensation: (2) Nonobstructive atherosclerosis of coronary artery: (3) Status post transcatheter aortic valve replacement (TAVR) using bioprosthesis: (4) Interstitial lung disease: (5) Acute hyponatremia: (6) Mitral regurgitation: (7) S/P ablation of atrial fibrillation: (8) S/P ablation of atrial flutter: (9) Protein calorie malnutrition: Plan 09/01/24 Complex cachectic appearing 73-year-old male with significant underlying interstitial lung disease admitted with signs and symptoms of acute decompensated heart failure. Resting echocardiography in May 2024 with preserved LV systolic function, EF 55 to 59%, moderate to severe perivalvular (TAVR) aortic regurgitation, moderate to severe tricuspid regurgitation, pulmonary hypertension with estimated PASP 56 mmHg. Right > left pleural effusion. right sided thoracentesis planned for tomorrow with pulm. Eliquis on hold. Started on IV heparin. Continue diuresis with IV lasix 40 mg BID. Good urine output since admission. Weight trending downward. Low dose spironolactone added yesterday and tolerating at 12.5 mg daily Supplement potassium 20 meq this morning as well 09/02/24: patient is s/p right thoracentesis this morning removing 600 ml tolerated procedure. Oxygen saturations back to baseline requiring 2 L (chronic) Continue IV furosemide this afternoon Hold morning dose and re-evaluate. Consider transitioning to oral furosemide Continue spironolactone 12.5 mg daily Monitor I+O's Daily weight with standing scale stable renal function. 09/03/24: Patient with improved respiratory status and oxygen needs at baseline. He received one dose of IV lasix this morning, will hold afternoon dose. Patient has had significant diuresis over the last few days. Negative 7.5 L since admission He is down 9 kg since admission based on scales. Recommend torsemide 20 mg PO starting tomorrow. continue spironolactone 12.5 mg daily He should have f/u labs - BMP in about 3-5 days as an outpatient. Stable from cardiac perspective. No further cardiac testing warranted. Will sign off. Please contact environmental monitoring technician cardiology provider with additional questions or concerns. Case discussed with Dr. Russell I spent a total of 30 minutes on the date of service in preparation, delivery, and documentation of the care provided to this patient, excluding any time spent in the performance of separately billed services. Kristi Raymond PA-C Department of Cardiology, [facility] This chart was completed in part utilizing Speech Voice Recognition Software. Grammatical errors, random word insertions, pronoun errors, and incomplete sentences are an occasional consequence of this system due to software limitations, ambient noise, and hardware issues. Any formal questions or concerns about the content, text, or information contained within the body of this dictation should be directly addressed to the provider for clarification. Admission and Anticipated Discharge Date Admission Date: August 30, 2024 Supervising Physician Co-Signing Physician Notes I have personally performed a history and physical examination on the patient. I have reviewed the advance practitioner's documentation, and I agree with, and take responsibility for the plan of care. 73-year-old male with acute hypoxic respiratory failure of mixed etiology including interstitial lung disease and acute heart failure with preserved ejection fraction. Most recent echocardiogram demonstrating preserved LV systolic function, TAVR with moderate to severe paravalvular regurgitation, moderate to severe tricuspid regurgitation with moderate pulmonary hypertension. Respiratory status improved after thoracentesis today 09/02/2024. Discontinue IV Lasix. Initiate oral diuretic therapy with torsemide 20 mg daily. Continue low-dose Aldactone (added 08/31/2024). Outpatient basic metabolic panel 3 to 5 days post discharge. Sotalol for rhythm control. Continue Eliquis. Cardiology will sign off. Please call with additional concerns/questions. I spent a total of 25 minutes on the date of service in preparation, delivery, and documentation of the care provided to this patient, excluding any time spent in the performance of separately billed services. Nikolas Russell DO, [facility] Subjective Patient resting comfortably in bed. SOB improved and back to baseline. notes feeling "shaky" today. No chest pain. No dizziness. Review of Systems Review of Systems: All systems reviewed & are unremarkable except as noted in HPI & below Physical Exam Physical Exam: General: A&Ox3. NAD. Cachectic HENT: Normocephalic. Atraumatic. Eyes: PER. Conjunctiva pink, sclera clear. Neck: + JVD (sitting upright) Heart: RRR, 90 bpm. systolic and diastolic murmurs heard best at the lower left sternal border. Apical systolic murmur. Lungs: Decreased breath sounds b/l with dry rales b/l Abdomen: +BS. Soft. Nontender. No masses or organomegaly. Extremities: trace pretibial and ankle edema. No cyanosis. Limited neurological examination is without focal deficits. Pulses: radial=2/4, posterior tibial=1/4. Results & Data Vital Signs (Past 12 Hours) Vital Signs Temp Pulse Resp BP Pulse Ox O2 Del Method O2 Flow Rate 09/03/24 10:54 36.7 C 93 H 20 111/54 L 91 Nasal Cannula 2 09/03/24 08:00 36.7 C 70 16 122/60 97 Nasal Cannula 09/03/24 07:25 86 16 98 Nasal Cannula 2 09/03/24 02:41 36.6 C 68 18 107/57 L 98 Nasal Cannula Laboratory Results CBC 09/03/24 Range/Units 07:25 WBC 6.56 (4.8-10.8) K/ul RBC 3.07 L (4.70-6.10) M/uL Hgb 9.3 L (14.0-18.0) g/dl Hct 29.7 L (42.0-52.0) % Plt Count 292 (130-400) K/uL Comprehensive Metabolic Panel 09/03/24 Range/Units 07:25 Sodium 136 (136-145) mmol/L Potassium 4.0 (3.5-5.1) mmol/L Chloride 81 L (98-107) mmol/L Carbon Dioxide > 45 H* (21-32) mmol/L BUN 22 (6-23) mg/dl Creatinine 0.59 L (0.6-1.4) mg/dl Glucose 118 H (70-99(Fasting)) mg/dl Calcium 9.2 (8.6-10.3) mg/dl Intake and Output 09/02/24 09/03/24 09/03/24 22:59 06:59 14:59 Intake Total 200 / 937.150 120 / 937.150 480 / 480 Output Total 225 / 3000 3250 / 3250 Balance - / .850 120 / -2061.850 -2770 / -2770 Intake: Oral 200 / 870 120 / 870 480 / 480 Output: Urine 225 / 3000 3250 / 3250 Other: Weight 65.5 kg Diagnostic Findings Telemetry reviewed: NSR in the 70-80's Medications Administered Current Inpatient Medications Acetaminophen (Acetaminophen 325 Mg Tab) 650 mg PO Q4H PRN PRN Reason: Pain or Fever Stop: 09/29/24 18:39 Last Admin: 09/03/24 05:52 Dose: 650 mg Albuterol (Albut/Ipratrop 3mg/0.5mg Neb 3 Ml Vial) 3 ml NEB BIDR WEST; Protocol Stop: 09/29/24 18:59 Last Admin: 09/03/24 07:24 Dose: 3 ml Albuterol (Albut/Ipratrop 3mg/0.5mg Neb 3 Ml Vial) 3 ml NEB Q6R PRN; Protocol PRN Reason: Shortness Of Breath Stop: 09/29/24 21:30 Apixaban (Apixaban 5 Mg Tablet) 5 mg PO BID [facility] Stop: 10/02/24 20:59 Last Admin: 09/03/24 09:03 Dose: 5 mg Atorvastatin Calcium ([facility]vastatin 20 Mg Tab) [facility] [place] Stop: 09/30/24 08:59 Last Admin: 09/03/24 09:03 Dose: 20 mg Cyanocobalamin (Cyanocobalamin (B-12) 500 Mcg Tablet) 1,000 mcg PO [facility] Stop: 09/30/24 08:59 Last Admin: 09/03/24 09:03 Dose: 1,000 mcg Levothyroxine Sodium (Levothyroxine Sodium 75 Mcg Tablet) [facility] Stop: 10/01/24 06:29 Last Admin: 09/03/24 05:53 Dose: 75 mcg Sotalol HCl (Sotalol Hcl 80 Mg Tab) 40 mg PO BID [facility] Stop: 09/29/24 20:59 Last Admin: 09/03/24 09:02 Dose: 40 mg Spironolactone (Spironolactone 12.5 Mg Tab) 12.5 mg PO DAILY [facility] Stop: 09/30/24 10:59 Last Admin: 09/03/24 09:03 Dose: 12.5 mg Torsemide (Torsemide 20 Mg Tab) [facility] [place]: 10/04/24 08:59 Vitamin D (Cholecalciferol 25 Mcg (1000 Units) Tab) 25 mcg [facility] [place]: 09/30/24 08:59 Last Admin: 09/03/24 09:04 Dose: 25 mcg
--- NOTE | 2024-09-03 16:21 | Hospitalist Progress Note ---
Date of Service September 03, 2024 Assessment & Plan (1) H/O Hodgkin's lymphoma: (2) Pulmonary edema: (3) Mitral regurgitation: (4) S/P ablation of atrial fibrillation: (5) Nonobstructive atherosclerosis of coronary artery: (6) Status post transcatheter aortic valve replacement (TAVR) using bioprosthesis: (7) Heart failure with preserved ejection fraction: (8) Heart disease: (9) Hodgkin disease: (10) History of atrial fibrillation: Plan per previous hospitalist notes with addendum: 73-year-old male with a past medical history of pulmonary hypertension, A-fib, on AC, CAD, Hypothyroidism, mitral valve stenosis, Raynaud's disease, s/p TAVR, venous insufficiency, esophageal dysmotility, polymyositis, Hodgkin's lymphoma, JULIUS, ILD who presents to the ED on 08/30/2024 with complaints of worsening shortness of breath and pedal edema Acute diastolic heart failure: Recent right lung thoracentesis on [address] noted bilateral pleural effusion (R>L), basilar atelectasis Continue IV lasix Monitor I/O, daily weight Cardiology evaluation noted Got Thoracentesis (R) this AM. 400cc removed per Pulm. Follow up fluid analysis/micro/cytology 09/03 -5 L fluid balance so far Transition to oral torsemide starting tomorrow PT OT evaluation Hyponatremia: Sodium on admission was 127, likely secondary to fluid overload Sodium is 137 this AM Monitor Sodium 136 Chronic hypoxic respiratory failure Hx pulmonary hypertension Hx ILD Recently placed on 2 L oxygen [id number], originally was only on oxygen at bedtime Monitor Continue supportive care for rhinovirus Hx CAD/AF/TAVR: Continue aspirin, sotalol Home eliquis was initially held for thoracentesis. Resume eliquis this evening Hx hypothyroidism: Continue levothyroxine Full code DVT prophylaxis: Resume eliquis this evening after stopping hep gtt Disposition PT/OT eval pending possible d/c home tomorrow Admission and Anticipated Discharge Date Admission Date: August 30, 2024 Subjective Follow-up for CHF exacerbation, etc. Seen resting in bed, comfortable, not in distress On 2 L of O2 which is his baseline States breathing is improving No chest pain Having some bilateral hand tingling/numbness No other new symptoms Review of Systems Review of Systems: all noted and negative except for above Physical Exam Physical Exam: General- oriented x 3, not in distress, speaks in sentences with no effort or accessory muscle use Eyes- anicteric Neck- no JVD Lungs- Mild crackles at the bases, no wheezing Heart- normal rate, regular rhythm; no murmurs Abdomen- normal bowel sounds, nondistended, soft, nontender Extremities- no pretibial edema, no calf tenderness Neuro- alert, oriented x 3; no gross focal neurologic deficits Skin- warm & dry Results & Data Results & Data Vital Signs (Past 12 Hours) Vital Signs Temp Pulse Resp BP Pulse Ox O2 Del Method O2 Flow Rate 09/03/24 10:54 36.7 C 93 H 20 111/54 L 91 Nasal Cannula 2 09/03/24 08:00 36.7 C 70 16 122/60 97 Nasal Cannula 09/03/24 07:25 86 16 98 Nasal Cannula 2 all noted and reviewed including below
[2024-09-04 08:06] VITALS: PULSE 97; RESP 18; TEMP 98.1; O2SAT 94
[2024-09-04] MEDS: TORSEMIDE 20 MG TAB PO SCH (08:29)
[2024-09-04 09:57] LABS: Blood Urea Nitrogen 23 mg/dl (6-23); Calcium 9.3 mg/dl (8.6-10.3); Carbon Dioxide > 45 mmol/L (21-32); Chloride 82 mmol/L (98-107); Creatinine Clr Calc Pharmacy 101.6 ml/min; Glucose 202 mg/dl (70-99(Fasting)); Potassium 4.1 mmol/L (3.5-5.1); Sodium 135 mmol/L (136-145); Thyroid Stimulating Hormone 1.176 uIu/ml (0.300-4.500)
--- NOTE | 2024-09-04 10:29 | Hospitalist Progress Note ---
Date of Service September 04, 2024 Assessment & Plan (1) H/O Hodgkin's lymphoma: (2) Pulmonary edema: (3) Mitral regurgitation: (4) S/P ablation of atrial fibrillation: (5) Nonobstructive atherosclerosis of coronary artery: (6) Status post transcatheter aortic valve replacement (TAVR) using bioprosthesis: (7) Heart failure with preserved ejection fraction: (8) Heart disease: (9) Hodgkin disease: (10) History of atrial fibrillation: Plan per previous hospitalist notes with addendum: 73-year-old male with a past medical history of pulmonary hypertension, A-fib, on AC, CAD, Hypothyroidism, mitral valve stenosis, Raynaud's disease, s/p TAVR, venous insufficiency, esophageal dysmotility, polymyositis, Hodgkin's lymphoma, JULIUS, ILD who presents to the ED on 08/30/2024 with complaints of worsening shortness of breath and pedal edema Acute diastolic heart failure: Recent right lung thoracentesis on [address] noted bilateral pleural effusion (R>L), basilar atelectasis given IV lasix Cardiology evaluation noted Got Thoracentesis (R)18M. 400cc removed per Pulm. Follow up fluid analysis/micro/cytology Pleural Fluid: FINAL DIAGNOSIS Pleural fluid, right pleural cavity (cytologic analysis): - Mesothelial cells, lymphocytes and red blood cells are all seen. - A single mildly atypical binucleate cell most consistent with a reactive process is noted. - No tumor seen. - Please see microscopic description 09/03 -5 L fluid balance so far Transition to oral torsemide starting tomorrow PT OT evaluation 09/04 -7 L of fluid balance so far Clinically improved Discharge plan: Torsemide 20 mg every morning Spironolactone 12.5 mg p.o. daily Repeat BMP, magnesium in 3 to 5 days Cardiology follow-up in 1 week Hyponatremia: Sodium on admission was 127, likely secondary to fluid overload Sodium is 137 this AM Monitor Sodium 135 on discharge day BMP, magnesium level on Sunday, September 08, 2024 Chronic hypoxic respiratory failure (+) Rhinovirus Hx pulmonary hypertension Hx ILD Recently placed on 2 L oxygen [id number], originally was only on oxygen at bedtime supportive care for rhinovirus -- Remains on baseline 2 L of O2 Supplement Hx CAD/AF/TAVR: Continue Eliquis,aspirin, sotalol Hx hypothyroidism: Continue levothyroxine Discharge to home Follow-up with PCP and cardiology service in 1 week Admission and Anticipated Discharge Date Admission Date: August 30, 2024 Subjective Follow-up for CHF exacerbation, etc. Seen resting in bed, sleeping but easily awakened On 2 L of O2 States he feels fine overall Breathing is much better No chest pain, palpitations, dizziness Ambulating in the room with no issues States he is ready for discharge today Review of Systems Review of Systems: all noted and negative except for above Physical Exam Physical Exam: General- oriented x 3, not in distress, speaks in sentences with no effort or accessory muscle use Eyes- anicteric Neck- no JVD Lungs- clear breath sounds bilaterally, no rales/wheezes Heart- normal rate, regular rhythm; no murmurs Abdomen- normal bowel sounds, nondistended, soft, nontender Extremities- no pretibial edema, no calf tenderness Neuro- alert, oriented x 3; no gross focal neurologic deficits Skin- warm & dry Results & Data Results & Data Vital Signs (Past 12 Hours) Vital Signs Temp Pulse Pulse Resp BP Pulse Ox O2 Del Method 09/04/24 08:05 36.7 C 97 H 18 112/66 94 Room Air 09/04/24 07:49 Nasal Cannula 09/04/24 07:12 16 98 Nasal Cannula 09/04/24 02:38 36.6 C 90 18 110/54 L 97 Nasal Cannula 09/03/24 22:58 78 09/03/24 22:56 36.5 C 78 18 115/62 100 Nasal Cannula O2 Flow Rate 09/04/24 08:05 09/04/24 07:49 2 09/04/24 07:12 2 09/04/24 02:38 09/03/24 22:58 09/03/24 22:56 all noted and reviewed including below
--- NOTE | 2024-09-04 10:39 | Discharge Summary ---
Discharge Summary Date of Service September 04, 2024 Principal Dx & Hospital Course #1 = Principal Diagnosis (1) H/O Hodgkin's lymphoma: (2) Pulmonary edema: (3) Mitral regurgitation: (4) S/P ablation of atrial fibrillation: (5) Nonobstructive atherosclerosis of coronary artery: (6) Status post transcatheter aortic valve replacement (TAVR) using bioprosthesis: (7) Heart failure with preserved ejection fraction: (8) Heart disease: (9) Hodgkin disease: (10) History of atrial fibrillation: Plan per previous hospitalist notes with addendum: 73-year-old male with a past medical history of pulmonary hypertension, A-fib, on AC, CAD, Hypothyroidism, mitral valve stenosis, Raynaud's disease, s/p TAVR, venous insufficiency, esophageal dysmotility, polymyositis, Hodgkin's lymphoma, JULIUS, ILD who presents to the ED on 08/30/2024 with complaints of worsening shortness of breath and pedal edema Acute diastolic heart failure: Recent right lung thoracentesis on [address] noted bilateral pleural effusion (R>L), basilar atelectasis given IV lasix Cardiology evaluation noted Got Thoracentesis (R)3/18M. 400cc removed per Pulm. Follow up fluid analysis/micro/cytology Pleural Fluid: FINAL DIAGNOSIS Pleural fluid, right pleural cavity (cytologic analysis): - Mesothelial cells, lymphocytes and red blood cells are all seen. - A single mildly atypical binucleate cell most consistent with a reactive process is noted. - No tumor seen. - Please see microscopic description 09/03 -5 L fluid balance so far Transition to oral torsemide starting tomorrow PT OT evaluation 09/04 -7 L of fluid balance so far Clinically improved Discharge plan: Torsemide 20 mg every morning Spironolactone 12.5 mg p.o. daily Repeat BMP, magnesium in 3 to 5 days Cardiology follow-up in 1 week Thyroid Nodules Hyponatremia: Sodium on admission was 127, likely secondary to fluid overload Sodium is 137 this AM Monitor Sodium 135 on discharge day BMP, magnesium level on Sunday, September 08, 2024 Chronic hypoxic respiratory failure (+) Rhinovirus Hx pulmonary hypertension Hx ILD Recently placed on 2 L oxygen [id number], originally was only on oxygen at bedtime supportive care for rhinovirus -- Remains on baseline 2 L of O2 Supplement Hx CAD/AF/TAVR: Continue Eliquis,aspirin, sotalol Hx hypothyroidism: Continue levothyroxine Discharge to home Follow-up with PCP and cardiology service in 1 week Admission HPI Per Admitting Provider The patient is a 73-year-old male with a past medical history of pulmonary hypertension, A-fib, on AC, CAD, Hypothyroidism, mitral valve stenosis, Raynaud's disease, s/p TAVR, venous insufficiency, esophageal dysmotility, polymyositis, Hodgkin's lymphoma, JULIUS, ILD who presents to the ED on 08/30/2024 with complaints of worsening shortness of breath. the patient wears 2 L of oxygen chronically at home [id number]. Patient reports a dry cough over the last few days, reports a 30 pound weight gain over the past few months. Reports worsening shortness of breath with exertion. The patient reports his shortness of breath worsened today he called 911. The patient follows with Dr. Sheppard outpatient and was seen in the office 08/15/2024. The patient at this point, had been experiencing low oxygen levels in the 80s without supplemental oxygen. The patient also follows with vascular surgery and had a plan for a left greater saphenous vein ablation and phlebectomy on 08/18/2024, this was placed on hold due to the patient's acute symptoms worsening dyspnea. At this time, patient noted increased swelling in his legs over the past 2 to 3 weeks. The patient has not been managed at home on diuretics. Echo performed 05/19/24: The qualitative LV ejection fraction is 55-59% (normal). The LV wall thickness is moderately increased (concentric). The left atrium is moderately enlarged (42-48 ml/m^2). The right atrium is severely enlarged. The patient is status post TAVR with Evolut Pro prosthetic valve. The aortic valve prosthesis systolic gradients are normal for this type prosthesis. There is moderate to severe perivalvular aortic regurgitation with an eccentric jet that impinges on the anterior mitral valve leaflet. There is severe mitral annular calcification. Mild mitral regurgitation is present. Moderate to severe tricuspid regurgitation is present. The estimated pulmonary artery systolic pressure is 56mm Hg. There is a small guwj-kz-aqxpi interatrial shunt per color Doppler interrogation. Findings suggest PFO versus small ASD. Compared to prior study of 07/02/2023, there is no significant change. In collaboration with Dr. Marsh with pulmonology, and ultrasound-guided thoracentesis was scheduled on 08/19/2024, 600 mL was taken off the right lung. cytology at that time was negative. there was consideration of initiating diuretic therapy but options limited due to dizziness risk Per cardiology.The patient reports his shortness of breath had improved after that but slowly continued to worsen. BioFire positive today for rhinovirus Labs remarkable for hemoglobin 10, NA 127, chloride 87, bicarb 39, glucose 126, Trope 32.9, BNP 1277, procalcitonin negative chest x-ray shows extensive interstitial and airspace infiltrates with small pleural effusions. Consider CHF and pneumonia. Disease is worse compared to 10/2023. Chest CT is pending the patient will be admitted for further management of CHF exacerbation Updated Medication List Medication Instructions Recorded Confirmed Type aspirin 81 mg tablet,delayed 81 mg PO QAM 11/16/18 09/06/24 History release levothyroxine 75 mcg tablet 75 mcg PO QAM 11/16/18 09/06/24 History cholecalciferol (vitamin D3) 25 1,000 unit PO QAM 05/07/19 08/30/24 History mcg (1,000 unit) capsule (Vitamin D3) cyanocobalamin (vitamin B-12) 1,000 mcg PO QAM 05/07/19 08/30/24 History 1,000 mcg tablet (Vitamin B-12) atorvastatin 20 mg tablet 20 mg PO QAM #30 tabs 10/11/23 09/06/24 Rx apixaban 5 mg tablet (Eliquis) 5 mg PO BID 10/20/23 09/06/24 History L.acidop,casei,lactis,rham-B.lact,bam 1 cap PO DAILY #30 caps 10/25/23 08/30/24 Rx 625 mg (10 billion cell) capsule (Advanced Probiotic) ipratropium 0.5 mg-albuterol 3 mg 3 ml NEB BIDR #90 mL 10/25/23 08/30/24 Rx (2.5 mg base)/3 mL nebulization soln sodium chloride 7 % for 4 ml NEB BIDR #120 mL 10/25/23 08/30/24 Rx nebulization sotalol 80 mg tablet 40 mg (1/2 x 80 mg) PO BID #60 tabs 10/25/23 09/06/24 Rx spironolactone 25 mg tablet 12.5 mg (1/2 x 25 mg) PO DAILY 30 09/04/24 09/06/24 Rx days #15 tabs torsemide 20 mg tablet 20 mg PO QAM 30 days #30 tabs 09/04/24 09/06/24 Rx Hospital Stay Data Consultations 08/30/24 18:46 Consult Pulmonology Routine 08/31/24 08:00 Consult Cardiology Routine Diagnostic Imagining Performed 08/30/24 15:44 CT chest diagnostic w con Stat 09/02/24 IR thoracentesis wo tube US Routine Pending Results Patient Have Any Pending Studies at Discharge: Yes Discharge Instructions Given to Patient (Per Discharging Provider) PLEASE REFER TO YOUR NEW MEDICATION LIST AND FOLLOW INSTRUCTIONS CAREFULLY. YOUR NEW MEDICATIONS INCLUDE: Torsemide, spironolactone-diuretic/medications to promote urination PLEASE CALL YOUR PRIMARY CARE PHYSICIAN OR RETURN TO THE ER IF WITH WORSENING OF SYMPTOMS, INCLUDING Shortness of breath, leg edema, fevers or chills, cough, chest pain, etc. FOLLOW UP WITH PRIMARY CARE PHYSICIAN OUTLINED ABOVE. Follow-up with dental financial coordinator Dr. Russell in 1 week. Repeat blood work on Sunday, September 08, 2024.
[2024-09-04 10:47] VITALS: BP 112/62
== END 2024-09-04 12:35 | disposition home or self-care (01) | DRG 291 ==
LOC: ED 14:14 → SUATTDRO 15:55 → 2S 15:55

== ENCOUNTER 2024-09-06 07:35 | Inpatient (IN) ==
--- NOTE | 2024-09-06 07:54 | Emergency Department Note ---
Impression & Plan Closed hip fracture ADMIT ED Provider Note HPI: History obtained from patient. The patient is a 73-year-old gentleman with history of atrial fibrillation, currently on Eliquis, history of protein malnutrition, diastolic CHF, status post TAVR, who presents the emergency department after mechanical fall. Patient states that he woke up earlier today and he was trying to get out of bed when his leg "gave out". Patient states he fell and hit his right hip. Patient states he has pain in the right hip. Patient denies hitting his head, on arrival here to the ED the patient is hemodynamically stable, he has limited range of motion at the right hip secondary to pain. ROS: - Per HPI Differential Diagnosis: Right hip fracture, right hip dislocation, intracranial injury to include subdural hematoma, epidural hematoma, pelvic fracture, rib fractures, pneumothorax, hemothorax, amongst other potential pathologies. *Outpatient medications and allergy history reviewed. PE: General: Alert, frail-appearing, cachectic HEENT: Normocephalic, trachea midline Eyes: Extraocular eye movement is intact, no scleral erythema Pulmonary: Clear to auscultation bilaterally, no wheezing Cardio: Regular rate and regular rhythm GI: Abdomen is soft to palpation : No suprapubic tenderness MSK: No evidence of trauma or malformation of the extremities, no edema, limited range of motion of the right hip secondary to pain, there is a palpable dorsalis pedis pulse in the right lower extremity on arrival Skin: No evidence of rash Neuro: Alert, no focal deficits Psychiatric: Cooperative INDEPENDENT INTERPRETATIONS: court recording monitor: (As interpreted by myself): - An order was placed for continuous cardiac monitoring - Patient was noted to be in sinus rhythm with a rate of 90 EKG: (As interpreted by myself): Rate: 86 Rhythm: Sinus rhythm Intervals: Within normal limits ST changes: No ST elevation Time: 0958 Chest x-ray: (As interpreted by myself): Mild pulmonary edema pattern Interventions provided in ED: -IV morphine, IV Zofran Medical Decision Making: IV was established and lab work obtained, patient was placed on surveillance system monitor. Lab work shows no leukocytosis, hemoglobin is stable at 10.6. Platelet count is normal, CMP shows chronically elevated serum bicarbonate level and otherwise no critical/acute findings are noted. X-ray imaging of the pelvis does show evidence of a right femoral neck fracture. CT imaging of the head does not show any evidence of any acute intracranial hemorrhage. Patient was given IV pain control here in the ED, I discussed these findings with the on-call hospitalist for [facility], Dr. Thorne, and he is in agreement to admit the patient medically for orthopedic consultation. Case was then discussed with the on-call orthopedic provider, Dr. Courtney, the patient was placed for admission in stable condition. Consultants/Discussions held with other healthcare providers: -Hospitalist, Dr. Thorne -Orthopedics, Dr. Courtney Disposition discussion held by myself with: -Patient Diagnosis: 1. Right hip fracture, acute, closed 2. Mechanical fall, acute 3. History of atrial fibrillation, on Eliquis Disposition: Admission Sadiq Osborn DO Emergency Medicine Past Med/Surg History Problem List Closed hip fracture (Acute) Closed right hip fracture Respiratory acidosis Metabolic alkalosis Severe protein-energy malnutrition Hypoalbuminemia due to protein-calorie malnutrition Chronic hypoxic respiratory failure, on home oxygen therapy Pleural effusion due to CHF (congestive heart failure) Heart failure, diastolic, with acute decompensation Acute hyponatremia (Acute) Edema (Acute) Hypoxia (Acute) Pulmonary edema (Acute) Pneumonia (Acute) Chest pain (Acute) Atrial fibrillation with rapid ventricular response (Acute) Mitral regurgitation S/P ablation of atrial fibrillation S/P ablation of atrial flutter Nonobstructive atherosclerosis of coronary artery Status post transcatheter aortic valve replacement (TAVR) using bioprosthesis Heart failure with preserved ejection fraction Atrial fibrillation with rapid ventricular response Pulmonary hypertension Protein calorie malnutrition Pneumonia Interstitial lung disease no inhaler Mobitz (type) II atrioventricular block PSVT (paroxysmal supraventricular tachycardia) PAF (paroxysmal atrial fibrillation) Tachycardia Occlusion of left vertebral artery TIA (transient ischemic attack) Elevated troponin Dysarthria Left-sided headache (Acute) Non-ST elevation OR (NSTEMI) (Acute) Chest pain (Acute) Closed left hip fracture Encounter for pre-operative examination Closed left hip fracture (Acute) Fall (Acute) Atrial fibrillation (Chronic) Heart disease (Chronic) History of left hip replacement Medical History H/O Hodgkin's lymphoma Neuromuscular disorder Senile osteoporosis Low blood pressure Arthritis Hypothyroidism Hodgkin disease diagnosed at age 27--had radiation and spleenectomy Sleep apnea cpap History of atrial fibrillation follows with Dr. Graves Surgical History S/P TAVR (transcatheter aortic valve replacement) 04/2023 History of esophagogastroduodenoscopy (EGD) History of tooth extraction History of anesthesia reaction woke up once during a colonoscopy History of colonoscopy History of lymph node biopsy malignant--hodgkin History of splenectomy History of cardiac cath 2015 no stents History of cardioversion History of cardiac radiofrequency ablation x2-- "treated for A-fib" Family History Other No family history of adverse response to anesthesia Social History Smoking Status: Former smoker Tobacco Type: Cigarettes Second Hand Exposure: No; Do You Dip or Chew Tobacco: No; Hx Alcohol Use: No Hx Substance Use: No Preferred Language: Croatian Communication Ability: Effective Cushion Cover Inspector Required: No Beliefs That Will Affect Care: Muslim Muslim Beliefs: Does not eat pork. He is alevism Current Living Situation: Spouse Other Information That Helps Us Care for You: No Feels Safe at Home: Yes Safety Concerns: Feels Safe At This Time Assistive Devices: Glasses, Oxygen - Continuous, Walker and Other Assistive Devices Comment: walking stick Allergies Allergies Allergy/AdvReac Type Severity Reaction Status Date / Time No Known Allergies Allergy Verified 02/20/23 08:47 Home Meds Home Medications Medication Instructions Recorded Confirmed aspirin 81 mg tablet,delayed 81 mg PO QAM 11/16/18 09/06/24 release levothyroxine 75 mcg tablet 75 mcg PO QAM 11/16/18 09/06/24 cholecalciferol (vitamin D3) 25 1,000 unit PO QAM 05/07/19 08/30/24 mcg (1,000 unit) capsule (Vitamin D3) cyanocobalamin (vitamin B-12) 1,000 mcg PO QAM 05/07/19 08/30/24 1,000 mcg tablet (Vitamin B-12) apixaban 5 mg tablet (Eliquis) 5 mg PO BID 10/20/23 09/06/24 Previous Rx's Medication Instructions Recorded atorvastatin 20 mg tablet 20 mg PO QAM #30 tabs 10/11/23 L.acidop,casei,lactis,rham-B.lact,bam 1 cap PO DAILY #30 caps 10/25/23 625 mg (10 billion cell) capsule (Advanced Probiotic) ipratropium 0.5 mg-albuterol 3 mg 3 ml NEB BIDR #90 mL 10/25/23 (2.5 mg base)/3 mL nebulization soln sodium chloride 7 % for 4 ml NEB BIDR #120 mL 10/25/23 nebulization sotalol 80 mg tablet 40 mg (1/2 x 80 mg) PO BID #60 tabs 10/25/23 spironolactone 25 mg tablet 12.5 mg (1/2 x 25 mg) PO DAILY 30 09/04/24 days #15 tabs torsemide 20 mg tablet 20 mg PO QAM 30 days #30 tabs 09/04/24 Results & Data (ED) Vital Signs Vital Signs - 24 hr 09/06/24 07:39 09/06/24 07:52 09/06/24 08:02 Temperature 36.7 C Temperature Source Oral Pulse Rate 80 85 Pulse Rate [Apical] Pulse Rhythm Regular Pulse Strength Normal Respiratory Rate 18 Respiratory Effort / Characteristics Non-Labored Spontaneous Respiratory Depth Normal Respiratory Pattern Regular Blood Pressure 140/77 Blood Pressure [Right Arm] Blood Pressure Mean 98 Blood Pressure Mean [Right Arm] Pulse Oximetry 96 96 Oxygen Delivery Method Nasal Cannula Nasal Cannula Oxygen Flow Rate 2 2 Sepsis Recent Fever Within 48 Hours No Sepsis New/Unexplained Change in Mental Status No Sepsis Action Taken by Nursing No Action Required 09/06/24 08:41 09/06/24 08:41 Temperature 36.6 C 36.6 C Temperature Source Oral Pulse Rate 81 Pulse Rate [Apical] 81 Pulse Rhythm Pulse Strength Respiratory Rate 18 18 Respiratory Effort / Characteristics Respiratory Depth Respiratory Pattern Blood Pressure 103/55 L Blood Pressure [Right Arm] 103/55 L Blood Pressure Mean Blood Pressure Mean [Right Arm] 71 Pulse Oximetry 96 Oxygen Delivery Method Nasal Cannula Oxygen Flow Rate 2 Sepsis Recent Fever Within 48 Hours Sepsis New/Unexplained Change in Mental Status Sepsis Action Taken by Nursing Laboratory Data 09/06/24 08:00 09/06/24 08:00 Lab Results 09/06/24 Range/Units 08:00 WBC 5.88 (4.8-10.8) K/ul RBC 3.47 L (4.70-6.10) M/uL Hgb 10.6 L (14.0-18.0) g/dl Hct 33.5 L (42.0-52.0) % MCV 96.5 (80.0-100.0) fL MCH 30.5 (25.0-34.0) pg MCHC 31.6 L (32.0-36.0) g/dL RDW Std Deviation 61.4 H (36.4-46.3) fL RDW Coeff of Reza 17.6 H (11.5-14.5) % Plt Count 278 (130-400) K/uL MPV 11.3 (9.4-12.4) fL Immature Gran % (Auto) 0.7 % Neut % (Auto) 75.5 % Lymph % (Auto) 8.5 % Greer % (Auto) 11.2 % Eos % (Auto) 3.2 % Baso % (Auto) 0.9 % Neut # (Auto) 4.44 (1.40-6.50) K/uL Lymph # (Auto) 0.50 L (1.20-3.40) K/uL Greer # (Auto) 0.66 H (0.11-0.59) K/uL Eos # (Auto) 0.19 (0.00-0.50) K/uL Baso # (Auto) 0.05 (0.00-0.20) K/uL Immature Gran # (Auto) 0.04 (0.01-0.20) K/uL PT 11.8 (9.0-12.0) Seconds INR 1.1 (0.9-1.1) APTT 26 (21-31) Seconds PTT Ratio 1.0 Sodium 137 (136-145) mmol/L Potassium 4.5 (3.5-5.1) mmol/L Chloride 82 L (98-107) mmol/L Carbon Dioxide > 45 H* (21-32) mmol/L Anion Gap TNP BUN 25 H (6-23) mg/dl Creatinine 0.61 (0.6-1.4) mg/dl Est Cr Clr Drug Dosing 97.7 ml/min eGFR 100.79 BUN/Creatinine Ratio 41.0 H (10-20) Glucose 116 H (70-99(Fasting)) mg/dl Calcium 9.5 (8.6-10.3) mg/dl Total Bilirubin 0.7 (0.2-1.0) mg/dl AST 37 (13-39) U/L ALT 23 (7-52) U/L Alkaline Phosphatase 67 (34-104) U/L Total Protein 8.2 (6.0-8.3) gm/dl Albumin 4.0 (3.4-5.0) gm/dl Globulin 4.2 H (2.5-4.0) gm/dl Albumin/Globulin Ratio 1.0 (0.9-2) Administered Medications Acetaminophen (Acetaminophen 500 Mg Tab) 1,000 mg PO Q8H [facility] Stop: 10/06/24 10:59 Last Admin: 09/06/24 11:30 Dose: 1,000 mg Documented By: MACKENZIE Nystatin (Nystatin Susp 500,000 U/5 Ml Udc) 5 ml PO QID [facility] Stop: 09/16/24 12:59 Last Admin: 09/06/24 13:07 Dose: 5 ml Documented By: MACKENZIE Oxycodone HCl (Oxycodone Hcl Ir 5 Mg Tab (Immediate Release)) 5 mg PO Q6H PRN PRN Reason: severe pain Stop: 09/20/24 09:07 Last Admin: 09/06/24 11:28 Dose: 5 mg Documented By: MACKENZIE Tramadol HCl (Tramadol Hcl 50 Mg Tablet) 50 mg PO Q6H PRN PRN Reason: Moderate Pain (Scale 4, 5, 6) Stop: 10/06/24 09:07 Last Admin: 09/06/24 09:50 Dose: 50 mg Documented By: AVIVA Discontinued Medications Sodium Chloride (Nss) 500 mls @ 999 mls/hr IV .Q31M [facility] Stop: 09/06/24 08:30 Last Infusion: 09/06/24 08:55 Dose: Infused Documented By: Admin: 09/06/24 08:10 Dose: 999 mls/hr Documented By: AVIVA Morphine Sulfate (Morphine Sulfate 4 Mg/Ml 1 Ml Carp\\Vial) 4 mg IV NOW STA Stop: 09/06/24 07:47 Last Admin: 09/06/24 08:12 Dose: 4 mg Documented By: AVIVA Ondansetron HCl (Ondansetron Inj 2 Mg/Ml 2 Ml Vial) 4 mg IV NOW STA Stop: 09/06/24 07:47 Last Admin: 09/06/24 08:10 Dose: 4 mg Documented By: [facility] Imaging Data Radiologist's Impression: Chest X-Ray 09/06/24 07:46 XR chest 1V portable CLINICAL HISTORY: Fall, R hip pain COMPARISON STUDY: Chest CT August 30, 2024. Chest radiograph September 02, 2024. FINDINGS: Small bilateral pleural effusions have decreased in size since chest radiograph of September 02, 2024. There is no pneumothorax. Pulmonary edema has mildly improved. Cardiomegaly and a prosthetic aortic valve are again noted. Mediastinal contours are stable. IMPRESSION: 1. Persistent but improved pulmonary edema and small bilateral pleural effusions. 2. No pneumothorax. 3. Cardiomegaly. ACT 112: Negative or not required by law. Electronically signed by: Costa Gilliam M.D. 09/06/2024 8:22 AM Pelvis X-Ray 09/06/24 07:46 XR pelvis 1-2V routine CLINICAL HISTORY: Fall, R hip pain COMPARISON: Pelvis radiograph November 24, 2022. FINDINGS: There is an acute mildly displaced subcapital right femoral neck fracture. No additional fractures within the pelvis or hips are identified. Visualized portions of the left hip arthroplasty are intact. Left abdominal and pelvic surgical clips are incidentally noted. Sacroiliac joints and symphysis pubis are intact. IMPRESSION: Acute mildly displaced subcapital right femoral neck fracture. ACT 112: Negative or not required by law. Electronically signed by: Costa Gilliam M.D. 09/06/2024 8:[address] 09/06/24 07:47 CT OF THE HEAD WITHOUT CONTRAST CLINICAL HISTORY: Fall. COMPARISON STUDY: MRI of the brain October 08, 2023. Head CT October 24, 2023. CT DOSE: 625.8 mGy.cm TECHNIQUE: Helical axial images of the head were obtained without IV contrast. Automated exposure control was utilized for the study. A dose lowering technique was utilized adhering to the principles of ALARA. FINDINGS: No acute intracranial hemorrhage, midline shift or mass effect is present. Mild white matter hypodensities are unchanged. The ventricular system is unremarkable. The basal cisterns are patent. No extra-axial collections are present. There are no findings to suggest acute dural sinus thrombosis or acute territorial infarct. There are no calvarial fractures. There is an opacified left posterior ethmoid air cell. IMPRESSION: 1. No acute intracranial findings. 2. No calvarial fractures. ACT 112: Negative or not required by law. Electronically signed by: Costa Gilliam M.D. 09/06/2024 8:46 AM Discharge Plan Visit Data Chief Complaint: Trauma Stated Complaint: Injury alert ED Provider: Sadiq Osborn Discharge Problem: Closed hip fracture Patient Disposition: Admitted As Inpatient Discharge Instructions Interventions: ED Discharge Assessment Last Done: 09/06/24 10:05 Discharge Problem: Closed hip fracture Qualifiers: Encounter type: initial encounter Laterality: right Qualified Code(s): S72.001A - Fracture of unspecified part of neck of right femur, initial encounter for closed fracture
[2024-09-06] MEDS: ONDANSETRON INJ 2 MG/ML 2 ML VIAL IV STA (08:10)
[2024-09-06] MEDS: SODIUM CHLORIDE 0.9% 500 ML IV SCH (08:10)
[2024-09-06] MEDS: MoRPHine SULFATE 4 MG/ML 1 ML CARP\\VIAL IV STA (08:12)
[2024-09-06 08:17] LABS: Basophils # (auto) 0.05 K/uL (0.00-0.20); Basophils % (auto) 0.9 %; Eosinophils # (auto) 0.19 K/uL (0.00-0.50); Eosinophils % (auto) 3.2 %; Hematocrit (blood only) 33.5 % (42.0-52.0); Hemoglobin 10.6 g/dl (14.0-18.0); Immature Granulocytes # (auto) 0.04 K/uL (0.01-0.20); Immature Granulocytes % (auto) 0.7 %; Lymphocytes % (auto) 8.5 %; Mean Corpuscular Hemoglobin 30.5 pg (25.0-34.0); Mean Corpuscular Hgb Conc 31.6 g/dL (32.0-36.0); Mean Corpuscular Volume 96.5 fL (80.0-100.0); Mean Platelet Volume 11.3 fL (9.4-12.4); Monocytes # (auto) 0.66 K/uL (0.11-0.59); Monocytes % (auto) 11.2 %; Neutrophils # (auto) 4.44 K/uL (1.40-6.50); Neutrophils % (auto) 75.5 %; Platelet Count 278 K/uL (130-400); RDW Coefficient of Variation 17.6 % (11.5-14.5); RDW Standard Deviation 61.4 fL (36.4-46.3); Red Blood Count 3.47 M/uL (4.70-6.10); White Blood Count 5.88 K/ul (4.8-10.8)
--- NOTE | 2024-09-06 08:24 | XRay Report ---
XR chest 1V portable CLINICAL HISTORY: Fall, R hip pain COMPARISON STUDY: Chest CT August 30, 2024. Chest radiograph September 02, 2024. FINDINGS: Small bilateral pleural effusions have decreased in size since chest radiograph of August. There is no pneumothorax. Pulmonary edema has mildly improved. Cardiomegaly and a prosthetic aortic valve are again noted. Mediastinal contours are stable. IMPRESSION: 1. Persistent but improved pulmonary edema and small bilateral pleural effusions. 2. No pneumothorax. 3. Cardiomegaly. ACT 112: Negative or not required by law. Electronically signed by: Costa Gilliam M.D. 09/06/2024 8:22 AM
--- NOTE | 2024-09-06 08:25 | XRay Report ---
XR pelvis 1-2V routine CLINICAL HISTORY: Fall, R hip pain COMPARISON: Pelvis radiograph November 24, 2022. FINDINGS: There is an acute mildly displaced subcapital right femoral neck fracture. No additional f ractures within the pelvis or hips are identified. Visualized portions of the left hip arthroplasty a re intact. Left abdominal and pelvic surgical clips are incidentally noted. Sacroiliac joints and sym physis pubis are intact. IMPRESSION: Acute mildly displaced subcapital right femoral neck fracture. ACT 112: Negative or not required by law. Electronically signed by: Costa Gilliam M.D. 09/06/2024 8:24 AM
[2024-09-06 08:45] LABS: INR 1.1 (0.9-1.1); Partial Thromboplastin Time 26 Seconds (21-31); Prothrombin Time 11.8 Seconds (9.0-12.0)
[2024-09-06 08:48] LABS: Alanine Aminotransferase 23 U/L (7-52); Alkaline Phosphatase 67 U/L (34-104); Aspartate Aminotransferase 37 U/L (13-39); Bilirubin,Total 0.7 mg/dl (0.2-1.0); Blood Urea Nitrogen 25 mg/dl (6-23); Calcium 9.5 mg/dl (8.6-10.3); Carbon Dioxide > 45 mmol/L (21-32); Chloride 82 mmol/L (98-107); Creatinine Clr Calc Pharmacy 97.7 ml/min; Globulin 4.2 gm/dl (2.5-4.0); Glucose 116 mg/dl (70-99(Fasting)); Potassium 4.5 mmol/L (3.5-5.1); Sodium 137 mmol/L (136-145); Total Protein 8.2 gm/dl (6.0-8.3)
--- NOTE | 2024-09-06 08:48 | CT Scan Report ---
CT OF THE HEAD WITHOUT CONTRAST CLINICAL HISTORY: Fall. COMPARISON STUDY: MRI of the brain October 08, 2023. Head CT October 24, 2023. CT DOSE: 625.8 mGy.cm TECHNIQUE: Helical axial images of the head were obtained without IV contrast. Automated exposure con trol was utilized for the study. A dose lowering technique was utilized adhering to the principles o f ALARA. FINDINGS: No acute intracranial hemorrhage, midline shift or mass effect is present. Mild white matte r hypodensities are unchanged. The ventricular system is unremarkable. The basal cisterns are patent. No extra-axial collections are present. There are no findings to suggest acute dural sinus thrombosi s or acute territorial infarct. There are no calvarial fractures. There is an opacified left posterio r ethmoid air cell. IMPRESSION: 1. No acute intracranial findings. 2. No calvarial fractures. ACT 112: Negative or not required by law. Electronically signed by: Costa Gilliam M.D. 09/06/2024 8:46 AM
--- OUTSIDE RECORDS SUMMARY | 2024-09-06 08:57 | External Medical Summary | Summary of Care ---
Author Name Unknown Organization [facility] Address [address] [place] [address] Phone [phone] Care Team Providers Care Engraver Name Role Phone Dewayne Pena MD Primary Care Provider [phone] Reason for Visit * Reason Onset Date Comments Test Results 09/01/2024 Cxray Encounter Details Date Type Department Care Team (Late st Contact Info) Description 09/01/2024 Telephone Pulmonary Medicine, [facility] [address] [facility] [place] [id number] Juan Pablo Marsh [facility] [address] [facility] [id number] Test Results (Cxray) Allergies No known active allergiesdocumented as of this encounter (statuses as of 09/01/2024) Medications Cholecalciferol 25 MCG (1000 UT) Oral [...] as of this encounter (statuses as of 09/01/2024) Active Problems Problem Noted Date Diagnosed Date [...] Depth unknown, no SLN, Location [facility] Raynaud's disease without gangrene 06/02/2019 Esophageal dysmotility 05/20/2019 JULIUS (obstructive sleep apnea) 05/20/2019 ILD (interstitial lung disease) 05/20/2019 Coronary artery disease invo lving [place] coronary artery of [place] heart without angina pectoris 03/24/2019 Nonrheumatic mitral valve stenosis 03/24/2019 H/O Hodgkin's lymphoma 07/05/2018 Acquired hypothyroidism 07/05/2018 documented as of this encounter (statuses as of 09/01/2024) Resolved Problems Problem Noted Date Diagnosed Date [...] prior, see below) BCC R forehead 2008 ([facility]) Prediabetes 02/28/2021 02/01/2023 Overview: Per Prediabetes protocol Moderate protein malnutrition 12/15/2019 03/14/2023 Ankylosing spondylitis of cervical region 12/15/2019 07/07/2022 PSVT (paroxysmal supraventri cular tachycardia) 12/15/2019 03/21/2024 Moderate aortic stenosis 03/24/2019 H/O atrial fibrillation with out current medication 07/05/2018 03/14/2023 documented as of this encounter (statuses as of 09/01/2024) Immunizations Name Administration Dates Next Due COVID-19 [...] Telephone Encounter - Ena Charles LPN - 09/01/2024 8:19 AM EDT ----- Message from Juan Pablo Marsh MD sent at 09/01/2024 7:53 AM EDT ----- XR CHEST 2 VIEWS-08/15/2024 FINDINGS Redemonstrated changes of chronic interstitial lung disease, potentially progressed from prior examination. There are small bilateral pleural effusions with bibasilar airspace opacities. There is no pleural effusion. The pulmonary vasculature is within normal limits. Cardiomediastinal silhouette isstable status post TAVR. No acute osseous finding. IMPRESSION 1. Small bilateral pleural effusions with bibasilar airspace opacities favoring atelectasis. 2. Chronic interstitial lung disease, potentially progressed from prior examination. Chart note documented in this encounter Plan of Treatment Upcoming Encounters Date Type Department Care Team (Late st Contact Info) Description 09/23/2024 1:20 PM EDT Office Visit Family Practice [facility] [address] [place] [address] Dewayne Pena MD [address] [place] [id number] 10/06/2024 2:20 PM EDT Office Visit Rheumatology [facility] [address] [facility] [place] [address] Timo Guzman MD [address] [place] [address] 10/09/2024 10:30 AM EDT Office Visit Cardiology, [facility] [address] [facility] [place] [address] Mike Graves, [address] [facility] [place] [address] 02/23/2025 10:00 AM EDT Office Visit Pulmonary Medicine, [facility] [address] [place] [address] Juan Pablo Marsh MD [address] [place] [facility] [place] [address] 05/27/2025 1:20 PM EST Office Visit Dermatology [facility] [address] [place] [address] Jonnathan House PA-C [address] [place] [phone] Health Maintenance Due Date Last Done [...] this encounter Medical Devices Implanted Type Area Clerical Car Checker Device Identifier Shelf Expiration Date Model / Serial / Lot Cath Thermodilution 6fr - [id number] Implanted:Qty: 1 on 03/07/2023 by Armando Beltran MD at [facility] [employer] [id number] 10/10/2024 [id number] / / [id number] Valve Aortic Transcath Fx 34mm - [id number] Implanted:Qty: 1 on 05/03/2023 by Armando Beltran MD at [facility] [employer] [id number] 08/10/2024 [id number] / [id number] / [id number] documented as of this encounter Advance Directives Documents on File Type Date Recorded 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
--- OUTSIDE RECORDS SUMMARY | 2024-09-06 08:57 | External Medical Summary | Summary of Care ---
Author Name Unknown Organization [facility] Address [address] [place] [address] Phone [phone] Care Team Providers Care Fitness Director Name Role Phone Dewayne Pena MD Primary Care Provider [phone] Reason for Visit * Reason Onset Date Comments Test Results 09/01/2024 Pleural fluid la bs Encounter Details Date Type Department Care Team (Late st Contact Info) Description 09/01/2024 Telephone Pulmonary Medicine, [facility] [address] [facility] [place] [id number] Juan Pablo Marsh MD [address] [facility] [id number] Test Results (Pleural fluid labs) Allergies No known active allergiesdocumented as of [...] 05/20/2019 Coronary artery disease invo lving [place] coronary artery of [place] heart without angina pectoris 03/24/2019 Nonrheumatic mitral [...] prior, see below) BCC R forehead 2008 ([facility]) Prediabetes 02/28/2021 02/01/2023 Overview: Per Prediabetes [...] mL, 12 YRS AND ABOVE, IM ([facility]) 04/10/2024,03/27/2023 COVID-19, mRNA, LNP-s, PF, B [...] Juan Pablo Marsh MD sent at 09/01/2024 7:56 AM EDT ----- Pleural fluid studies 08/19/2024: Cytology: Benign Pleural fluid, Right, Cytology: Adequacy: Satisfactory for evaluation. Category: Benign. Interpretation: Mesothelial cells, macrophages, red blood cells and mixed inflammatory cells. Glucose: 112 mg/dL Protein: 2.8 g LDH 105 units Impression: Benign transudative pleural effusion likely related to underlying cardiac risk factors. Chart note documented in this encounter Plan of Treatment Upcoming Encounters Date Type Department Care Team (Late st Contact Info) Description 09/23/2024 1:20 PM EDT Office Visit Family Practice [facility] [address] [place] [address] Dewayne Pena MD [address] [place] [address] 10/06/2024 2:20 PM EDT Office Visit Rheumatology [facility] [address] [place] [phone] Timo Guzman MD [address] [place] [address] 10/09/2024 10:30 AM EDT Office Visit Cardiology, [facility] [address] [facility] [place] [address] Mike Graves, [address] [facility] [address] 02/23/2025 10:00 AM EDT Office Visit Pulmonary Medicine, [facility] [address] [facility] [place] [address] Juan Pablo Marsh MD [address] [place] [address] 05/27/2025 1:20 PM EST Office Visit Dermatology [facility] [address] [place] [address] Jonnathan House PA-C [address] [place] [address] Health Maintenance Due Date Last Done Comments [...] this encounter Medical Devices Implanted Type Area Library Cataloging Technician Device Identifier Shelf Expiration Date Model / Serial / Lot Cath Thermodilution 6fr - [id number] Implanted:Qty: 1 on 03/07/2023 by Armando Beltran MD at [facility] [employer] [id number] 10/10/2024 [id number] / / [id number] Valve Aortic Transcath Fx 34mm - [id number] Implanted:Qty: 1 on 05/03/2023 by Armando Beltran MD at [facility] [employer] [id number] 08/10/2024 [id number] / [id number] / [id number] documented as of this encounter Advance Directives Documents on File Type Date Recorded 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 [place] [address] PCP - General Family Medicine 04/30/23 documented as of this encounter
--- NOTE | 2024-09-06 09:18 | History & Physical Report ---
Date of Service September 06, 2024 Assessment & Plan (1) Closed right hip fracture: Plan: 73-year-old male with history of CHF, diastolic type, chronic respiratory failure on 2 L of oxygen, CAD, atrial fibrillation, status post TAVR, hypothyroidism, presenting with a right hip fracture, status post mechanical fall. Acute mildly displaced subcapital right femoral neck fracture Status post mechanical fall Ortho consulted Pain medications as follows-Tylenol 1 g every 8 hours, as needed tramadol and oxycodone Patient is a high risk for cardiopulmonary complications perioperatively in light of age, significant cardiac history discussed with Ortho SVC- plan for OR tomorrow discussed with Anesthesia SVC Dr. Marinelli- recommend to obtain echo echo report reviewed: EF 55 to 60%, moderate concentric LVH, normal left ventricular wall motion abnormalities, patient is status post TAVR, no aortic stenosis or regurgitation Right ventricle is moderately dilated, right ventricular systolic function is normal, severe pulmonary hypertension Chronic diastolic congestive heart failure Patient currently euvolemic/on the dry side Received IV fluids at the ER Hold torsemide, spironolactone Chronic respiratory failure on 2 L of oxygen Currently at baseline 2 L Coronary Artery disease Atrial fibrillation Status post TAVR No cardiac symptoms Will obtain EKG today Hold aspirin, apixaban for possible orthopedic procedure Continue atorvastatin, sotalol Hypothyroidism Continue levothyroxine DVT prophylaxis SCDs for now Disposition Will need PT and OT Will most likely need acute rehab DNR as per patient and at the bedside plan of care discussed with patient in detail and at length all questions answered they are understanding, agreeable, comfortable with the plan of care History of Present Illness Primary Care Provider: Dewayne Pena MD 73-year-old male with history of CHF, diastolic type, chronic respiratory failure on 2 L of oxygen, CAD, atrial fibrillation, status post TAVR, hypothyroidism, presenting with a right hip fracture, status post mechanical fall. Patient was just discharged from [facility] last September 04, 2024 after being treated for CHF exacerbation. After evaluation by physical therapist who deemed that the patient demonstrated good balance and tolerance with interim standing/normal activities, patient was discharged to home. This morning, upon waking up, patient was trying to get out of bed when he is legs: "Gave out. He then fell and hit his right hip, subsequently developing right hip pain. No head trauma as per patient X-ray of the pelvis revealing acute mildly displaced subcapital right femoral neck fracture. Seen resting in bed, comfortable, not in distress. States he has some right hip pain, relieved by morphine Denies chest pain, shortness of breath, palpitations, dizziness, nausea or any other symptoms Allergies Allergy/AdvReac Type Severity Reaction Status Date / Time No Known Allergies Allergy Verified 02/20/23 08:47 Home Medications Medication Instructions Recorded Confirmed Type aspirin 81 mg tablet,delayed 81 mg PO QAM 11/16/18 09/06/24 History release levothyroxine 75 mcg tablet 75 mcg PO QAM 11/16/18 09/06/24 History cholecalciferol (vitamin D3) 25 1,000 unit PO QAM 05/07/19 08/30/24 History mcg (1,000 unit) capsule (Vitamin D3) cyanocobalamin (vitamin B-12) 1,000 mcg PO QAM 05/07/19 08/30/24 History 1,000 mcg tablet (Vitamin B-12) atorvastatin 20 mg tablet 20 mg PO QAM #30 tabs 10/11/23 09/06/24 Rx apixaban 5 mg tablet (Eliquis) 5 mg PO BID 10/20/23 09/06/24 History L.acidop,casei,lactis,rham-B.lact,bam 1 cap PO DAILY #30 caps 10/25/23 08/30/24 Rx 625 mg (10 billion cell) capsule (Advanced Probiotic) ipratropium 0.5 mg-albuterol 3 mg 3 ml NEB BIDR #90 mL 10/25/23 08/30/24 Rx (2.5 mg base)/3 mL nebulization soln sodium chloride 7 % for 4 ml NEB BIDR #120 mL 10/25/23 08/30/24 Rx nebulization sotalol 80 mg tablet 40 mg (1/2 x 80 mg) PO BID #60 tabs 10/25/23 09/06/24 Rx spironolactone 25 mg tablet 12.5 mg (1/2 x 25 mg) PO DAILY 30 09/04/24 09/06/24 Rx days #15 tabs torsemide 20 mg tablet 20 mg PO QAM 30 days #30 tabs 09/04/24 09/06/24 Rx Past Med/Surg History Problem List Closed hip fracture (Acute) Closed right hip fracture Respiratory acidosis Metabolic alkalosis Severe protein-energy malnutrition Hypoalbuminemia due to protein-calorie malnutrition Chronic hypoxic respiratory failure, on home oxygen therapy Pleural effusion due to CHF (congestive heart failure) Heart failure, diastolic, with acute decompensation Acute hyponatremia (Acute) Edema (Acute) Hypoxia (Acute) Pulmonary edema (Acute) Pneumonia (Acute) Chest pain (Acute) Atrial fibrillation with rapid ventricular response (Acute) Mitral regurgitation S/P ablation of atrial fibrillation S/P ablation of atrial flutter Nonobstructive atherosclerosis of coronary artery Status post transcatheter aortic valve replacement (TAVR) using bioprosthesis Heart failure with preserved ejection fraction Atrial fibrillation with rapid ventricular response Pulmonary hypertension Protein calorie malnutrition Pneumonia Interstitial lung disease no inhaler Mobitz (type) II atrioventricular block PSVT (paroxysmal supraventricular tachycardia) PAF (paroxysmal atrial fibrillation) Tachycardia Occlusion of left vertebral artery TIA (transient ischemic attack) Elevated troponin Dysarthria Left-sided headache (Acute) Non-ST elevation [place] (NSTEMI) (Acute) Chest pain (Acute) Closed left hip fracture Encounter for pre-operative examination Closed left hip fracture (Acute) Fall (Acute) Atrial fibrillation (Chronic) Heart disease (Chronic) History of left hip replacement Medical History H/O Hodgkin's lymphoma Neuromuscular disorder Senile osteoporosis Low blood pressure Arthritis Hypothyroidism Hodgkin disease diagnosed at age 27--had radiation and spleenectomy Sleep apnea cpap History of atrial fibrillation follows with Dr. Graves Surgical History S/P TAVR (transcatheter aortic valve replacement) 04/2023 History of esophagogastroduodenoscopy (EGD) History of tooth extraction History of anesthesia reaction woke up once during a colonoscopy History of colonoscopy History of lymph node biopsy malignant--hodgkin History of splenectomy History of cardiac cath 2015 no stents History of cardioversion History of cardiac radiofrequency ablation x2--2013/2016 "treated for A-fib" Family History Other No family history of adverse response to anesthesia Social History Smoking Status: Former smoker Tobacco Type: Cigarettes Second Hand Exposure: No; Do You Dip or Chew Tobacco: No; Hx Alcohol Use: No Hx Substance Use: No Preferred Language: [place] Communication Ability: Effective Child Caregiver Required: No Beliefs That Will Affect Care: Pentecostal Pentecostal Beliefs: Does not eat pork. He is catholic Current Living Situation: Spouse Other Information That Helps Us Care for You: No Feels Safe at Home: Yes Safety Concerns: Feels Safe At This Time Assistive Devices: Glasses, Oxygen - Continuous, Walker and Other Assistive Devices Comment: walking stick Review of Systems Review of Systems: all noted and negative except for above Physical Exam Physical Exam: General- oriented x 3, not in distress, speaks in sentences with no effort or accessory muscle use Head- atraumatic Eyes- PERRL, EOMI, anicteric ENT- oropharynx clear Neck- supple, no JVD, no adenopathy, no thyromegaly; carotids +2/2, no bruits appreciated Lungs- clear to auscultation bilaterally, no rales/wheezes Heart- normal rate, regular rhythm; no murmur, no gallop, no rub appreciated Abdomen- normal bowel sounds, nondistended, soft, nontender, no masses or hepatosplenomegaly Extremities- no pretibial edema, no calf tenderness; peripheral pulses intact no leg rotation Neuro- alert, oriented x 3; CN 2-12 grossly intact; motor 5/5 bilaterally;sensation 100% on all extremities; no other gross focal neurologic deficits Skin- warm & dry Results & Data Results & Data Vital Signs (Past 12 Hours) Vital Signs Temp Pulse Pulse Resp BP BP Pulse Ox 09/06/24 08:41 36.6 C 81 18 103/55 L 96 09/06/24 08:41 36.6 C 81 18 103/55 L 09/06/24 08:02 96 09/06/24 07:52 85 09/06/24 07:39 36.7 C 80 18 140/77 96 O2 Del Method O2 Flow Rate 09/06/24 08:41 Nasal Cannula 2 09/06/24 08:41 09/06/24 08:02 Nasal Cannula 2 09/06/24 07:52 09/06/24 07:39 Nasal Cannula 2 Code Status & VTE Plan VTE Prophylaxis Plan VTE Prophylaxis will be ordered: Yes
[2024-09-06] MEDS: traMADol HCL 50 MG TABLET PO PRN (09:50)
--- NOTE | 2024-09-06 10:44 | Orthopedic Consultation ---
Date of Consultation September 06, 2024 Assessment & Plan (1) Closed right hip fracture: Patient with a ground-level fall earlier this morning resulting in a right mildly displaced femoral neck fracture. Patient evaluated by myself and Dr. Heredia in the emergency department room C11. Options of care were reviewed with the patient. In order to regain the best function, right hip hemiarthroplasty was the recommended procedure with the understanding of the risks and benefits associated with surgery especially given his significant cardiac history. Patient and his partner were agreeable with proceeding with surgery. Informed consent form was completed and the patient signed the form at bedside. We coordinated with Dr. Thorne with [facility] hospitalist service who feels that the patient is medically optimized. We did review his cardiac history, and we requested that he coordinate with anesthesiology to decide if any additional cardiac workup is indicated prior to surgery. They will let us know. Last echo was June 2023. In the meantime, we will plan for surgery tomorrow. His Eliquis should be held. He should be n.p.o. after midnight. Will likely require rehab after surgery. Supervising Physician Co-Signing Physician Notes I saw and examined the patient, reviewed his chart and imaging, formulated the above plan, and performed the substantive portion of the visit. Agree with the above note. Patient will be admitted to hospitalist service. Plan for surgery on Sunday morning since he had a dose of Eliquis on Sunday evening. He understands that he is at elevated risk of complications secondary to his multiple medical comorbidities. Informed consent was signed. N.p.o. after midnight Sunday night History of Present Illness Reason for Consultation: Right hip fracture History of Present Illness Guido Daley is a 73 year old male with a past medical history of pulmonary hypertension, A-fib, CAD, hypothyroidism, mitral valve stenosis, Raynaud's disease, s/p TAVR, venous insufficiency, esophageal dysmotility, polymyositis, Hodgkin's lymphoma, JULIUS, who presented to the emergency department this morning with chief complaint of right hip pain secondary to a ground-level fall that occurred earlier this morning. Patient states that he was walking when his right leg gave out on him and he fell to the right side. He was evaluated in the emergency department and found to have a mildly displaced right femoral neck fracture. CT head was negative for acute process. Chest x-ray showed improved but persistent pulmonary edema with small bilateral pleural effusions. The patient has been [facility] to the [facility]ist service Dr. Thorne, and orthopedics was consulted for evaluation of the hip fracture. Patient describes pain in the right hip region. It does not radiate into his back or down his leg. He denies any numbness or tingling in his toes that is new. Has a history of a left total hip arthroplasty with Dr. Raygoza in November 2021 secondary to a femoral neck fracture. He took Eliquis this morning. Of note, patient was recently admitted to this hospital and discharged several days ago secondary to CHF exacerbation. He has since been placed on diuretics. Reports still feeling somewhat weak but had been discharged back home. He lives in a one-story home with his partner. He uses a walking stick or a walker to ambulate. Allergies Allergy/AdvReac Type Severity Reaction Status Date / Time No Known Allergies Allergy Verified 02/20/23 08:47 Home Medications Medication Instructions Recorded Confirmed Type aspirin 81 mg tablet,delayed 81 mg PO QAM 11/16/18 09/06/24 History release levothyroxine 75 mcg tablet 75 mcg PO QAM 11/16/18 09/06/24 History cholecalciferol (vitamin D3) 25 1,000 unit PO QAM 05/07/19 08/30/24 History mcg (1,000 unit) capsule (Vitamin D3) cyanocobalamin (vitamin B-12) 1,000 mcg PO QAM 05/07/19 08/30/24 History 1,000 mcg tablet (Vitamin B-12) atorvastatin 20 mg tablet 20 mg PO QAM #30 tabs 10/11/23 09/06/24 Rx apixaban 5 mg tablet (Eliquis) 5 mg PO BID 10/20/23 09/06/24 History L.acidop,casei,lactis,rham-B.lact,bam 1 cap PO DAILY #30 caps 10/25/23 08/30/24 Rx 625 mg (10 billion cell) capsule (Advanced Probiotic) ipratropium 0.5 mg-albuterol 3 mg 3 ml NEB BIDR #90 mL 10/25/23 08/30/24 Rx (2.5 mg base)/3 mL nebulization soln sodium chloride 7 % for 4 ml NEB BIDR #120 mL 10/25/23 08/30/24 Rx nebulization sotalol 80 mg tablet 40 mg (1/2 x 80 mg) PO BID #60 tabs 10/25/23 09/06/24 Rx spironolactone 25 mg tablet 12.5 mg (1/2 x 25 mg) PO DAILY 30 09/04/24 09/06/24 Rx days #15 tabs torsemide 20 mg tablet 20 mg PO QAM 30 days #30 tabs 09/04/24 09/06/24 Rx Patient History Medical History H/O Hodgkin's lymphoma Neuromuscular disorder Senile osteoporosis Low blood pressure Arthritis Hypothyroidism Hodgkin disease diagnosed at age 27--had radiation and spleenectomy Sleep apnea cpap History of atrial fibrillation follows with Dr. Graves Surgical History S/P TAVR (transcatheter aortic valve replacement) 04/2023 History of esophagogastroduodenoscopy (EGD) History of tooth extraction History of anesthesia reaction woke up once during a colonoscopy History of colonoscopy History of lymph node biopsy malignant--hodgkin History of splenectomy History of cardiac cath 2015 no stents History of cardioversion History of cardiac radiofrequency ablation x2-- "treated for A-fib" Family History Other No family history of adverse response to anesthesia Social History Smoking Status: Former smoker Tobacco Type: Cigarettes Second Hand Exposure: No; Do You Dip or Chew Tobacco: No; Hx Alcohol Use: No Hx Substance Use: No Preferred Language: Sinhala Communication Ability: Effective Installation And Repair Technician Required: No Beliefs That Will Affect Care: Advent Advent Beliefs: Does not eat pork. He is jain Current Living Situation: Spouse Other Information That Helps Us Care for You: No Feels Safe at Home: Yes Safety Concerns: Feels Safe At This Time Assistive Devices: Glasses, Oxygen - Continuous, Walker and Other Assistive Devices Comment: walking stick Physical Exam Constitutional: Sitting upright in bed. Resting comfortably in no distress. Pleasant. Thin appearing. Cardiovascular: DP and PT pulses 2+ bilaterally Musculoskeletal: Right lower extremity: No shortening or external rotation noted. Skin is closed in the hip region. Able to ankle plantarflex and dorsiflex. Skin: No ecchymosis in the right lower extremity Neurologic: No sensory deficits in L3-S1 distribution bilateral Results & Data Vital Signs (Past 12 Hours) Vital Signs Temp Pulse Pulse Resp BP BP Pulse Ox 09/06/24 09:51 98.1 F 83 17 103/58 L 96 09/06/24 09:00 97.9 F 84 17 103/58 L 96 09/06/24 08:41 97.9 F 81 18 103/55 L 96 09/06/24 08:41 97.9 F 81 18 103/55 L 09/06/24 08:02 96 09/06/24 07:52 85 09/06/24 07:39 98.1 F 80 18 140/77 96 O2 Del Method O2 Flow Rate 09/06/24 09:51 Nasal Cannula 09/06/24 09:00 Nasal Cannula 2 09/06/24 08:41 Nasal Cannula 2 09/06/24 08:41 09/06/24 08:02 Nasal Cannula 2 09/06/24 07:52 09/06/24 07:39 Nasal Cannula 2 Laboratory Results 09/06/24 08:00 WBC 5.88 RBC 3.47 L Hgb 10.6 L Hct 33.5 L MCV 96.5 MCH 30.5 MCHC 31.6 L RDW Std Deviation 61.4 H RDW Coeff of Reza 17.6 H Plt Count 278 MPV 11.3 Immature Gran % (Auto) 0.7 Neut % (Auto) 75.5 Lymph % (Auto) 8.5 [place] % (Auto) 11.2 Eos % (Auto) 3.2 Baso % (Auto) 0.9 Neut # (Auto) 4.44 Lymph # (Auto) 0.50 L [place] # (Auto) 0.66 H Eos # (Auto) 0.19 Baso # (Auto) 0.05 Immature Gran # (Auto) 0.04 PT 11.8 INR 1.1 APTT 26 PTT Ratio 1.0 Sodium 137 Potassium 4.5 Chloride 82 L Carbon Dioxide > 45 H* Anion Gap TNP BUN 25 H Creatinine 0.61 Est Cr Clr Drug Dosing 97.7 eGFR 100.79 BUN/Creatinine Ratio 41.0 H Glucose 116 H Calcium 9.5 Total Bilirubin 0.7 AST 37 ALT 23 Alkaline Phosphatase 67 Total Protein 8.2 Albumin 4.0 Globulin 4.2 H Albumin/Globulin Ratio 1.0 Diagnostic Findings Chest X-Ray 09/06/24 07:46 XR chest 1V portable CLINICAL HISTORY: Fall, R hip pain COMPARISON STUDY: Chest CT August 30, 2024. Chest radiograph September 02, 2024. FINDINGS: Small bilateral pleural effusions have decreased in size since chest radiograph of September 02, 2024. There is no pneumothorax. Pulmonary edema has mildly improved. Cardiomegaly and a prosthetic aortic valve are again noted. Mediastinal contours are stable. IMPRESSION: 1. Persistent but improved pulmonary edema and small bilateral pleural effusions. 2. No pneumothorax. 3. Cardiomegaly. ACT 112: Negative or not required by law. Electronically signed by: Costa Gilliam M.D. 09/06/2024 8:22 AM Pelvis X-Ray 09/06/24 07:46 XR pelvis 1-2V routine CLINICAL HISTORY: Fall, R hip pain COMPARISON: Pelvis radiograph November 24, 2022. FINDINGS: There is an acute mildly displaced subcapital right femoral neck fracture. No additional fractures within the pelvis or hips are identified. Visualized portions of the left hip arthroplasty are intact. Left abdominal and pelvic surgical clips are incidentally noted. Sacroiliac joints and symphysis pubis are intact. IMPRESSION: Acute mildly displaced subcapital right femoral neck fracture. ACT 112: Negative or not required by law. Electronically signed by: Costa Gilliam M.D. 09/06/2024 8:[address] 09/06/24 07:47 CT OF THE HEAD WITHOUT CONTRAST CLINICAL HISTORY: Fall. COMPARISON STUDY: MRI of the brain October 08, 2023. Head CT October 24, 2023. CT DOSE: 625.8 mGy.cm TECHNIQUE: Helical axial images of the head were obtained without IV contrast. Automated exposure control was utilized for the study. A dose lowering technique was utilized adhering to the principles of ALARA. FINDINGS: No acute intracranial hemorrhage, midline shift or mass effect is present. Mild white matter hypodensities are unchanged. The ventricular system is unremarkable. The basal cisterns are patent. No extra-axial collections are present. There are no findings to suggest acute dural sinus thrombosis or acute territorial infarct. There are no calvarial fractures. There is an opacified left posterior ethmoid air cell. IMPRESSION: 1. No acute intracranial findings. 2. No calvarial fractures. ACT 112: Negative or not required by law. Electronically signed by: Costa Gilliam M.D. 09/06/2024 8:46 AM (1) Closed right hip fracture Encounter type: initial encounter Qualified Code(s): S72.001A - Fracture of unspecified part of neck of right femur, initial encounter for closed fracture
[2024-09-06] MEDS: oxyCODONE HCL IR 5 MG TAB (IMMEDIATE RELEASE) PO PRN (11:28)
[2024-09-06] MEDS: ACETAMINOPHEN 500 MG TAB PO SCH (11:30)
[2024-09-06] MEDS: NYSTATIN SUSP 500,000 U/5 ML UDC PO SCH (13:07)
--- NOTE | 2024-09-06 13:51 | Electrocardiogram Report ---
Test Reason : Blood Pressure : */* mmHG Vent. Rate : 86 BPM Atrial Rate : 86 BPM P-R Int : 190 ms QRS Dur : 88 ms QT Int : 404 ms P-R-T Axes : 81 -27 44 degrees QTcB Int : 483 ms Sinus rhythm with Premature supraventricular complexes Minimal voltage criteria for LVH, may be normal variant ( [employer] product ) Old Septal infarct (cited on or before 30-Aug-2024) Abnormal ECG When compared with ECG of 01-Sep-2024 04:14, Premature ventricular complexes are no longer Present Confirmed by Dewayne Hillman ([id number]) on 09/06/2024 1:51:06 PM Referred By: REFERRED SELF Confirmed By: Dewayne Hillman
[2024-09-07 06:56] LABS: Basophils # (auto) 0.04 K/uL (0.00-0.20); Basophils % (auto) 0.4 %; Eosinophils # (auto) 0.04 K/uL (0.00-0.50); Eosinophils % (auto) 0.4 %; Hematocrit (blood only) 33.5 % (42.0-52.0); Hemoglobin 10.1 g/dl (14.0-18.0); Immature Granulocytes # (auto) 0.05 K/uL (0.01-0.20); Immature Granulocytes % (auto) 0.5 %; Lymphocytes # (auto) 0.55 K/uL (1.20-3.40); Lymphocytes % (auto) 5.3 %; Mean Corpuscular Hemoglobin 30.2 pg (25.0-34.0); Mean Corpuscular Hgb Conc 30.1 g/dL (32.0-36.0); Mean Corpuscular Volume 100.3 fL (80.0-100.0); Mean Platelet Volume 11.1 fL (9.4-12.4); Monocytes # (auto) 1.06 K/uL (0.11-0.59); Monocytes % (auto) 10.2 %; Neutrophils # (auto) 8.67 K/uL (1.40-6.50); Neutrophils % (auto) 83.2 %; Platelet Count 249 K/uL (130-400); RDW Coefficient of Variation 17.8 % (11.5-14.5); RDW Standard Deviation 65.6 fL (36.4-46.3); Red Blood Count 3.34 M/uL (4.70-6.10); White Blood Count 10.41 K/ul (4.8-10.8)
[2024-09-07] MEDS ORDERED: VASOPRESSIN 20 UNIT/ML VIAL ONE (07:14)
[2024-09-07] MEDS ORDERED: ETOMIDATE 2 MG/ML 20 ML VIAL IV ONE (07:14)
[2024-09-07] MEDS ORDERED: fentaNYL citrate PF 100 MCG/2 ML VIAL ONE (07:19)
[2024-09-07 07:24] LABS: BUN Creatinine Ratio 48.2 (10-20); Blood Urea Nitrogen 40 mg/dl (6-23); Calcium 9.2 mg/dl (8.6-10.3); Carbon Dioxide > 45 mmol/L (21-32); Chloride 81 mmol/L (98-107); Creatinine Clr Calc Pharmacy 77.5 ml/min; Glucose 135 mg/dl (70-99(Fasting)); Potassium 5.2 mmol/L (3.5-5.1); Sodium 137 mmol/L (136-145)
--- NOTE | 2024-09-07 07:33 | Anesthesiology Consultation ---
Date of Service September 07, 2024 Assessment & Plan Chart Review Chart Review: Acceptable Risk for Surgery and Patient NOT seen in Pre Admission Testing recent echo with severe PH adequate RV fxn. adequate TAVR, preserved EF with recent CHF. chronic hypoxic respiratory failure on home O2. History Surgery Operation Date: 09/07/24 10:00 Proposed Procedures p Bipolar Hip Prosthesis Cemented - Joo Heredia MD Height/Weight Height: 6 ft 1 in Weight: 70.216 kg Allergies Allergy/AdvReac Type Severity Reaction Status Date / Time No Known Allergies Allergy Verified 02/20/23 08:47 Medications Home Medications Medication Instructions Recorded Confirmed Last Taken aspirin 81 mg tablet,delayed 81 mg PO QAM 11/16/18 09/06/24 05/20/19 release levothyroxine 75 mcg tablet 75 mcg PO QAM 11/16/18 09/06/24 05/21/19 cholecalciferol (vitamin D3) 25 1,000 unit PO QAM 05/07/19 08/30/24 05/20/19 mcg (1,000 unit) capsule (Vitamin D3) cyanocobalamin (vitamin B-12) 1,000 mcg PO QAM 05/07/19 08/30/24 05/20/19 1,000 mcg tablet (Vitamin B-12) atorvastatin 20 mg tablet 20 mg PO QAM #30 tabs 10/11/23 09/06/24 Unknown apixaban 5 mg tablet (Eliquis) 5 mg PO BID 10/20/23 09/06/24 Unknown L.acidop,casei,lactis,rham-B.lact,bam 1 cap PO DAILY #30 caps 10/25/23 08/30/24 Unknown 625 mg (10 billion cell) capsule (Advanced Probiotic) ipratropium 0.5 mg-albuterol 3 mg 3 ml NEB BIDR #90 mL 10/25/23 08/30/24 Unknown (2.5 mg base)/3 mL nebulization soln sodium chloride 7 % for 4 ml NEB BIDR #120 mL 10/25/23 08/30/24 Unknown nebulization sotalol 80 mg tablet 40 mg (1/2 x 80 mg) PO BID #60 tabs 10/25/23 09/06/24 Unknown spironolactone 25 mg tablet 12.5 mg (1/2 x 25 mg) PO DAILY 30 09/04/24 09/06/24 Unknown days #15 tabs torsemide 20 mg tablet 20 mg PO QAM 30 days #30 tabs 09/04/24 09/06/24 Unknown Active Medications Generic Name Dose Route Start Last Admin Trade Name Freq PRN Reason Stop Dose Admin Acetaminophen 1,000 mg 09/06/24 11:00 09/07/24 03:10 Acetaminophen 500 Mg Tab PO 10/06/24 10:59 Not Given Q8H WEST Nystatin 5 ml 09/06/24 13:00 09/06/24 20:11 Nystatin Susp 500,000 U/5 Ml Udc PO 09/16/24 12:59 5 ml QID WEST Administration Oxycodone HCl 5 mg 09/06/24 09:08 09/07/24 03:06 Oxycodone Hcl Ir 5 Mg Tab (Immediate Release) PO 09/20/24 09:07 5 mg Q6H PRN Administration severe pain Tramadol HCl 50 mg 09/06/24 09:08 09/06/24 19:26 Tramadol Hcl 50 Mg Tablet PO 10/06/24 09:07 50 mg Q6H PRN Administration Moderate Pain (Scale 4, 5, 6) Past Medical History Medical History H/O Hodgkin's lymphoma Neuromuscular disorder Senile osteoporosis Low blood pressure Arthritis Hypothyroidism Hodgkin disease diagnosed at age 27--had radiation and spleenectomy Sleep apnea cpap History of atrial fibrillation follows with Dr. Graves Past Family History Family History Other No family history of adverse response to anesthesia Past Surgical History Surgical History S/P TAVR (transcatheter aortic valve replacement) 04/2023 History of esophagogastroduodenoscopy (EGD) History of tooth extraction History of anesthesia reaction woke up once during a colonoscopy History of colonoscopy History of lymph node biopsy malignant--hodgkin History of splenectomy History of cardiac cath 2015 no stents History of cardioversion History of cardiac radiofrequency ablation x2-- "treated for A-fib" Social History Smoking Status: Former smoker tobacco type: cigarettes Do You Dip or Chew Tobacco: No Hx Alcohol Use: No Hx Substance Use: No substance use type: does not use Physical Exam Vital Signs Last Vital Signs Temp 36.2 C L 09/07/24 04:10 Pulse 87 09/07/24 04:10 Resp 16 09/07/24 04:10 BP 99/57 L 09/07/24 04:10 Pulse Ox 99 09/07/24 04:10 O2 Del Method Nasal Cannula 09/07/24 04:10 O2 Flow Rate 2 09/07/24 04:10 Testing Laboratory Results 09/07/24 06:35 09/07/24 06:35 PT 11.8 Seconds (9.0-12.0) 09/06/24 08:00 INR 1.1 (0.9-1.1) 09/06/24 08:00 APTT 26 Seconds (21-31) 09/06/24 08:00
--- NOTE | 2024-09-07 07:36 | Orthopedic Progress Note ---
Date of Service September 07, 2024 Assessment & Plan (1) Closed right hip fracture: Plan: Proceed to the operating room this morning for cemented hemiarthroplasty right hip. Surgical site has been marked. Plan to readmit to hospitalist service after surgery. Admission and Anticipated Discharge Date Admission Date: September 06, 2024 Subjective Patient seen and examined this morning. He has been n.p.o. since midnight last night. Pain is under reasonable control. No questions about the upcoming surgery scheduled for this morning. Physical Exam Physical Exam: He is a little sleepy this morning, but answers all questions appropriately. Right lower extremity exam unchanged from prior. Results & Data Vital Signs (Past 12 Hours) Vital Signs Temp Pulse Pulse Resp BP Pulse Ox O2 Del Method 09/07/24 04:10 36.2 C L 87 16 99/57 L 99 Nasal Cannula 09/06/24 23:20 35.8 C L 85 18 102/57 L 100 Nasal Cannula 09/06/24 23:16 Nasal Cannula 09/06/24 21:44 80 O2 Flow Rate 09/07/24 04:10 2 09/06/24 23:20 2 09/06/24 23:16 2 09/06/24 21:44 (1) Closed right hip fracture Encounter type: initial encounter Qualified Code(s): S72.001A - Fracture of unspecified part of neck of right femur, initial encounter for closed fracture
[2024-09-07] MEDS ORDERED: PHENYLEPHRINE HCL 10 MG/ML VIAL ONE (08:10)
[2024-09-07] MEDS: ceFAZolin 2000MG 2,000 MG/15 ML SYR IV SCH (08:20)
[2024-09-07] MEDS ORDERED: SODIUM CHLORIDE 0.9% 100 ML IV PRN (08:44)
[2024-09-07] MEDS ORDERED: DEXAMETHASONE SOD INJ 4 MG/ML VIAL ONE (08:59)
[2024-09-07] MEDS ORDERED: PROPOFOL IV EMULSION 10 MG/ML 20 ML VIAL IV ONE (08:59)
[2024-09-07] MEDS ORDERED: ROCURONIUM BROMIDE 10 MG/ML 5 ML VIAL IV ONE (08:59)
[2024-09-07] MEDS ORDERED: ONDANSETRON INJ 2 MG/ML 2 ML VIAL ONE (09:11)
[2024-09-07] MEDS ORDERED: SUGAMMADEX SODIUM 200 MG/2 ML VIAL IV ONE (09:32)
[2024-09-07] MEDS: ROPIVACAINE 0.5% HCL/PF 246 MG, Ketorolac (*for OR use only*) 30 MG, EPINEPHrine 30MG/3... INFIL SCH (09:50)
[2024-09-07] MEDS: ORTHO JOINT ANESTHETIC ONE (09:51)
[2024-09-07] MEDS: TRANEXAMIC ACID / 0.7% NACL 1,000 MG/100 ML BAG IV SCH ×2 (09:51→12:51)
--- NOTE | 2024-09-07 10:06 | Operative Report ---
Post Operative Report Pre & Post Diagnosis Operation Date: 09/07/24 10:00 Pre-op Diagnosis: Displaced right femoral neck fracture Post-op Diagnosis: Displaced right femoral neck fracture I identified the patient and participated in the time-out.: Yes Procedure Operation Date: 09/07/24 10:00 Actual Procedures p Right Bipolar Hip Prosthesis Cemented(Right) - Joo Heredia MD Surgeon Joo Heredia MD Customer Success Specialist Dodie Odom PA-C Estimated Blood Loss 50 Findings Consistent with Post-Op Diagnosis Specimens Femoral head Description of Procedure I was present for the entire case. I assisted with patient positioning, prepping, draping, retraction, suctioning, wound closure, dressing application. Please refer to Dr. Heredia's procedure note for full details. I attest to the content of the Intraoperative Record and any orders documented therein. Any exceptions are noted below.
--- NOTE | 2024-09-07 10:19 | Operative Report ---
Post Operative Report Pre & Post Diagnosis Operation Date: 09/07/24 10:00 Preoperative diagnosis: Displaced right femoral neck fracture. Postop diagnosis: Displaced right femoral neck fracture I identified the patient and participated in the time-out.: Yes Procedure Operation Date: 09/07/24 10:00 Actual Procedures p Right Bipolar Hip Prosthesis Cemented(Right) - Joo Heredia MD Surgeon Joo Heredia MD Shop Coordinator Kel Odom PA-C. No resident or fellow was available to assist. Estimated Blood Loss 50 Findings Consistent with Post-Op Diagnosis Specimens None Anesthesia Type General Complications none Disposition Disposition: Recovery Room Indications 73-year-old male, multiple medical comorbidities including a recent hospitalization for bilateral pleural effusions status post drainage. Other medical comorbidities include congestive heart failure, severe malnutrition, respiratory acidosis, atrial fibrillation on chronic Eliquis, mitral regurgitation, status post previous left total hip arthroplasty for a displaced left femoral neck fracture by Dr. Raygoza in 2021. He fell at home on Sunday evening. He was admitted to the hospital late on Sunday. I saw him yesterday. He had received his dose of Eliquis on Sunday evening. We elected to wait until today to perform the surgery. I had a long discussion with the patient and his about the diagnosis, risks and benefits of surgery, alternatives, and expected outcomes. He elected to proceed. All questions were answered. Informed consent was signed. Description of Procedure Patient was identified in the preoperative holding area where his surgical site was marked. An arterial line was placed, then he was brought back to the operating room where general anesthesia was administered on the hospital bed. He was carefully moved onto the operating room table and then turned up in the lateral decubitus position. Axillary roll was placed. All bony prominences were padded. Perioperative antibiotics and 1 g of IV tranexamic acid were administered. He was prepped and draped in the usual sterile fashion. Prior to incision a multidisciplinary timeout was called. All in the room in agreement. I began by making a 10 cm incision for a posterior approach to the hip starting about 2 cm below the tip of the greater trochanter. I dissected down to subcutaneous tissues to the level of the fascia. Fascia was incised in line with the incision. Charnley retractor was placed. Piriformis and short external rotators were exposed. An L-shaped capsulotomy was made while releasing the piriformis and short external rotators while internally rotating the hip. Fractured femoral neck was visualized. A saw was used to osteotomize the femoral neck below the fracture. The fractured femoral head was then removed with a corkscrew. Acetabulum was exposed. Acetabulum was inspected and there was minimal chondromalacia. This was irrigated out. The femur was then exposed. The lateral neck was removed with a box osteotome. Intramedullary guide was used followed by the lateralizing reamer. I then broached him up to a size 5 Caswell stem. We trialed with a high offset neck and 55 diameter bipolar head with +5 offset. This gave us nice mu-ism of his preoperative leg length on this side. He was stable in extension and external rotation. Stable in the sleeper position. At 90 degrees of hip flexion he could be internally rotated 70 degrees before levering out of the cup which I was happy with. Hip was then atraumatically dislocated and the trial components were removed. Cement restrictor was placed down the intramedullary canal. The canal was irrigated out and dried. Cement was mixed on the back table. Palacos cement was then injected into the intramedullary canal and pressurized using my thumbs. The real size 5 Caswell high offset stem was then inserted and held in approximately 20 degrees of femoral neck anteversion. Excess cement was removed. Once the cement had completely cured we then opened up the bipolar head on the back table assembled it, and impacted onto the trunnion. The hip was atraumatically reduced. Wound was irrigated out with sterile Betadine solution. The periarticular injection cocktail was placed. Wound was reirrigated out with normal saline. We then began to close. Piriformis and short external rotators and the posterior capsular flap were closed using #2 Vicryl sutures with 1 drill hole through the posterior greater trochanter and second set of sutures through the abductor tendon tied over a bone bridge. Fascia was run with looped #1 PDS suture. The subcutaneous layer was closed with #1 PDS in running fashion. Deep dermal layer was closed with running 2-0 Vicryl. Skin was then closed using a Zipline and Dermabond. Silverlon dressing was placed followed by compressive dressing. Patient was then carefully moved back into the supine position, extubated, and transferred to recovery room in stable condition. Postoperative course: Patient will be carefully monitored by the hospitalist team. He will be weightbearing as tolerated with posterior hip precautions using a walker at all times. Dietary consult encouraged given his malnutrition. May resume Eliquis tomorrow for DVT prophylaxis. Okay to shower with compressive dressing removed tomorrow. Leave Silverlon dressing in place until his 2-week follow-up visit. I attest to the content of the Intraoperative Record and any orders documented therein. Any exceptions are noted below.
[2024-09-07] MEDS ORDERED: ATROPINE SULFATE 0.1 MG/ML 10ML SYR IV PRN (10:43)
[2024-09-07] MEDS ORDERED: ePHEDrine sulfate 50 MG/ML AMP IV PRN (10:43)
[2024-09-07] MEDS: HYDROmorphone INJ 1 MG/ML SYRINGE IV PRN (10:49)
[2024-09-07] MEDS: ONDANSETRON INJ 2 MG/ML 2 ML VIAL IV PRN (10:59)
[2024-09-07] MEDS: DROPERIDOL 5 MG/2 ML VIAL ONE (11:10)
--- NOTE | 2024-09-07 11:13 | XRay Report ---
XR pelvis 1-2V routine CLINICAL HISTORY: Postoperative evaluation. COMPARISON: Pelvis radiograph September 06, 2024. FINDINGS: Alignment of the right hip arthroplasty is anatomic. There is no periprosthetic fracture o r unexpected radiopaque foreign body. Left hip arthroplasty is intact. IMPRESSION: Expected findings following right hip arthroplasty. ACT 112: Negative or not required by law. Electronically signed by: Costa Gilliam M.D. 09/07/2024 11:12 AM
--- NOTE | 2024-09-07 12:06 | Anesthesiology Progress Note ---
Date of Service September 07, 2024 Anesthesia Post Procedure Vital Signs Vital Signs: Temp Pulse Pulse Pulse Pulse Resp BP 09/07/24 11:20 87 24 09/07/24 11:10 85 24 09/07/24 11:00 85 21 09/07/24 10:50 84 28 H 09/07/24 10:40 86 21 09/07/24 10:30 90 24 09/07/24 10:20 88 21 09/07/24 10:15 85 20 09/07/24 10:14 36.2 C L 85 20 09/07/24 05:41 88 09/07/24 04:10 36.2 C L 87 16 09/06/24 23:20 35.8 C L 85 18 09/06/24 23:16 09/06/24 21:44 80 09/06/24 19:22 36.3 C L 87 18 107/55 L 09/06/24 16:43 36.3 C L 86 20 09/06/24 14:25 82 09/06/24 12:26 85 BP BP Pulse Ox O2 Del Method O2 Flow Rate FiO2 09/07/24 11:20 98 Oxymask 6 09/07/24 11:10 129/46 L 98 Nasal Cannula 4 09/07/24 11:00 110/55 L 98 Nasal Cannula 4 09/07/24 10:50 112/45 L 98 BiPAP 30 09/07/24 10:40 107/39 L 98 BiPAP 30 09/07/24 10:30 120/53 L 98 BiPAP 30 09/07/24 10:20 136/43 L 97 BiPAP 30 09/07/24 10:15 99 21 09/07/24 10:14 123/48 L 95 BiPAP 30 09/07/24 05:41 09/07/24 04:10 99/57 L 99 Nasal Cannula 2 09/06/24 23:20 102/57 L 100 Nasal Cannula 2 09/06/24 23:16 Nasal Cannula 2 09/06/24 21:44 09/06/24 19:22 100 Nasal Cannula 2 09/06/24 16:43 94/54 L 98 Nasal Cannula 2 09/06/24 14:25 09/06/24 12:26 Pain Intensity Right Hip: Pain Intensity: 5 Transfer of Care Handoff Completed per policy Notes Mental Status: alert / awake / arousable Patient Amnestic to Procedure: Yes Nausea / Vomiting: adequately controlled Pain: adequately controlled Airway Patency, RR, SpO2: stable & adequate BP & HR: stable & adequate Hydration State: stable & adequate Anesthetic Complications: no major complications apparent and Pt Satisfied with anesthetic care Notes: weaned off bipap in PACU. awake/alert. O2 sats adequate with supplemental O2 via NC.
[2024-09-07] MEDS ORDERED: PHA DELIRIUM CONSULT PRN (12:49)
[2024-09-07] MEDS: POLYETHYLENE (MIRALAX) 17 GM PACK PO SCH (12:50)
--- NOTE | 2024-09-07 13:16 | Hospitalist Progress Note ---
Date of Service September 07, 2024 Assessment & Plan (1) Closed right hip fracture: Plan: 73-year-old male with history of CHF, diastolic type, chronic respiratory failure on 2 L of oxygen, CAD, atrial fibrillation, status post TAVR, hypothyroidism, presenting with a right hip fracture, status post mechanical fall. Acute mildly displaced subcapital right femoral neck fracture Status post mechanical fall Ortho consulted Pain medications as follows-Tylenol 1 g every 8 hours, as needed tramadol and oxycodone Patient is a high risk for cardiopulmonary complications perioperatively in light of age, significant cardiac history discussed with Ortho SVC- plan for OR tomorrow discussed with Anesthesia SVC Dr. Marinelli- recommend to obtain echo echo report reviewed: EF 55 to 60%, moderate concentric LVH, normal left ventricular wall motion abnormalities, patient is status post TAVR, no aortic stenosis or regurgitation Right ventricle is moderately dilated, right ventricular systolic function is normal, severe pulmonary hypertension 09/07 s/p surgery today back to baseline 2 L NC hold diuretics for now until re-eval tomorrow monitor closely Chronic diastolic congestive heart failure Patient currently euvolemic/on the dry side Received IV fluids at the ER Hold torsemide, spironolactone Chronic respiratory failure on 2 L of oxygen Currently at baseline 2 L Coronary Artery disease Atrial fibrillation Status post TAVR aspirin, apixaban resumed per Ortho Continue atorvastatin, sotalol Hypothyroidism Continue levothyroxine DVT prophylaxis on his usual Eliquis Disposition Will need PT and OT Will most likely need acute rehab DNR as per patient and at the bedside Admission and Anticipated Discharge Date Admission Date: September 06, 2024 Subjective ff up for r hip fracture, etc seen s/p surgery patient's at bedside states he feels ok overall, just groggy no shortness of breath, chest pain no other new symptoms Review of Systems Review of Systems: all noted and negative except for above Physical Exam Physical Exam: General- oriented x 3, not in distress, speaks in sentences with no effort or accessory muscle use Eyes- anicteric Neck- no JVD Lungs- clear breath sounds bilaterally, no rales/wheezes Heart- normal rate, regular rhythm; no murmurs Abdomen- normal bowel sounds, nondistended, soft, nontender Extremities- no pretibial edema, no calf tenderness R hip: ice pack in place Neuro- alert, oriented x 3; no gross focal neurologic deficits Skin- warm & dry Results & Data Results & Data Vital Signs (Past 12 Hours) Vital Signs Temp Pulse Pulse Pulse Resp BP BP 09/07/24 12:43 09/07/24 12:40 09/07/24 12:36 36.8 C 98 H 16 97/52 L 09/07/24 12:18 36.5 C 102 H 20 91/47 L 09/07/24 12:02 36.7 C 99 H 20 92/47 L 09/07/24 12:00 98/53 L 09/07/24 11:50 96 H 22 91/42 L 09/07/24 11:40 36.4 C L 92 H 24 98/47 L 09/07/24 11:20 87 24 09/07/24 11:10 85 24 129/46 L 09/07/24 11:00 85 21 110/55 L 09/07/24 10:50 84 28 H 112/45 L 09/07/24 10:40 86 21 107/39 L 09/07/24 10:30 90 24 120/53 L 09/07/24 10:20 88 21 136/43 L 09/07/24 10:15 85 20 09/07/24 10:14 36.2 C L 85 20 123/48 L 09/07/24 05:41 88 09/07/24 04:10 36.2 C L 87 16 99/57 L Pulse Ox O2 Del Method O2 Flow Rate FiO2 09/07/24 12:43 Oxymask 6 09/07/24 12:40 91 Oxymask 6 09/07/24 12:36 81 L Oxymask 4 09/07/24 12:18 97 Oxymask 6 09/07/24 12:02 99 Oxymask 6 09/07/24 12:00 09/07/24 11:50 94 Oxymask 6 09/07/24 11:40 98 Oxymask 6 09/07/24 11:20 98 Oxymask 6 09/07/24 11:10 98 Nasal Cannula 4 09/07/24 11:00 98 Nasal Cannula 4 09/07/24 10:50 98 BiPAP 30 09/07/24 10:40 98 BiPAP 30 09/07/24 10:30 98 BiPAP 30 09/07/24 10:20 97 BiPAP 30 09/07/24 10:15 99 21 03/23/25 10:14 95 BiPAP 30 09/07/24 05:41 09/07/24 04:10 99 Nasal Cannula 2 all noted and reviewed including below (1) Closed right hip fracture Encounter type: initial encounter Qualified Code(s): S72.001A - Fracture of unspecified part of neck of right femur, initial encounter for closed fracture
[2024-09-07] MEDS: ACETAMINOPHEN 1,000 MG/100 ML VIAL IV SCH (13:18)
[2024-09-07] MEDS: ceFAZolin 1000MG 1,000 MG/7.5 ML SYR IV SCH (16:10)
[2024-09-07] MEDS: ALBUT/IPRATROP 3MG/0.5MG NEB 3 ML VIAL NEB SCH (19:17)
[2024-09-07] MEDS: SODIUM CHLOR 7% 4 ML NEB NEB SCH (19:19)
[2024-09-07] MEDS: SOTALOL HCL 80 MG TAB PO SCH (20:51)
--- NOTE | 2024-09-07 21:05 | Communication Note ---
Date of Service: September 07, 2024 Patient with heart rate 1 40-1 60s, SBP 100s. Fluttering sensation in the chest as per RN. SVT on the monitor as per RN. EKG as per my interpretation rate 140, SVT, RAD, septal infarct, PVCs AP SVT Vagal maneuvers Digoxin 1 dose given borderline BP Change albuterol neb to Xopenex
[2024-09-07] MEDS: ALBUMIN 25% 25 GM/100 ML VIAL IV ONE (21:12)
[2024-09-07] MEDS: MAGNESIUM SULFATE / D5W 1 GM/100 ML BAG IV ONE (21:12)
[2024-09-07] MEDS: DIGOXIN 250 MCG in SYRINGE 9 ML IV STA (21:14)
[2024-09-07 21:22] LABS: Magnesium 2.1 mg/dl (1.7-2.4)
[2024-09-08] MEDS: LEVOTHYROXINE SODIUM 75 MCG TABLET PO SCH (05:43)
[2024-09-08 06:55] LABS: Basophils # (auto) 0.04 K/uL (0.00-0.20); Basophils % (auto) 0.4 %; Eosinophils # (auto) 0.01 K/uL (0.00-0.50); Eosinophils % (auto) 0.1 %; Hematocrit (blood only) 29.6 % (42.0-52.0); Hemoglobin 8.9 g/dl (14.0-18.0); Immature Granulocytes # (auto) 0.05 K/uL (0.01-0.20); Immature Granulocytes % (auto) 0.5 %; Lymphocytes % (auto) 7.2 %; Mean Corpuscular Hemoglobin 30.6 pg (25.0-34.0); Mean Corpuscular Hgb Conc 30.1 g/dL (32.0-36.0); Mean Corpuscular Volume 101.7 fL (80.0-100.0); Mean Platelet Volume 11.3 fL (9.4-12.4); Monocytes # (auto) 1.52 K/uL (0.11-0.59); Monocytes % (auto) 15.7 %; Neutrophils # (auto) 7.37 K/uL (1.40-6.50); Neutrophils % (auto) 76.1 %; Platelet Count 209 K/uL (130-400); Red Blood Count 2.91 M/uL (4.70-6.10); White Blood Count 9.69 K/ul (4.8-10.8)
[2024-09-08] MEDS: LEVALBUTEROL 1.25 MG/3 ML NEB NEB SCH (07:28)
[2024-09-08] MEDS: IPRATROPIUM BROMIDE NEB SOLN 0.02% 0.5MG/2.5ML VIAL INH SCH (07:28)
[2024-09-08 07:40] LABS: BUN Creatinine Ratio 51.9 (10-20); Blood Urea Nitrogen 41 mg/dl (6-23); Calcium 8.9 mg/dl (8.6-10.3); Carbon Dioxide > 45 mmol/L (21-32); Chloride 84 mmol/L (98-107); Creatinine Clr Calc Pharmacy 80.6 ml/min; Glucose 116 mg/dl (70-99(Fasting)); Potassium 5.4 mmol/L (3.5-5.1); Sodium 137 mmol/L (136-145)
[2024-09-08] MEDS: ASPIRIN 81 MG ECTAB PO SCH (08:14)
[2024-09-08] MEDS: CYANOCOBALAMIN (B-12) 500 MCG TABLET PO SCH (08:14)
[2024-09-08] MEDS: CHOLECALCIFEROL 25 MCG (1000 UNITS) TAB PO SCH (08:14)
[2024-09-08] MEDS: APIXABAN 5 MG TABLET PO SCH (08:14)
[2024-09-08] MEDS: ATORVASTATIN 20 MG TAB PO SCH (08:15)
[2024-09-08] MEDS ORDERED: TORSEMIDE 20 MG TAB PO SCH (09:00)
[2024-09-08] MEDS ORDERED: SPIRONOLACTONE 12.5 MG TAB PO SCH (09:00)
--- NOTE | 2024-09-08 09:12 | Hospitalist Progress Note ---
Date of Service September 08, 2024 delayed entry date of service noted above Assessment & Plan (1) Closed right hip fracture: Plan: 73-year-old male with history of CHF, diastolic type, chronic respiratory failure on 2 L of oxygen, CAD, atrial fibrillation, status post TAVR, hypothyroidism, presenting with a right hip fracture, status post mechanical fall. Acute mildly displaced subcapital right femoral neck fracture Status post mechanical fall Ortho consulted Pain medications as follows-Tylenol 1 g every 8 hours, as needed tramadol and oxycodone Patient is a high risk for cardiopulmonary complications perioperatively in light of age, significant cardiac history discussed with Ortho SVC- plan for OR tomorrow discussed with Anesthesia SVC Dr. Marinelli- recommend to obtain echo echo report reviewed: EF 55 to 60%, moderate concentric LVH, normal left ventricular wall motion abnormalities, patient is status post TAVR, no aortic stenosis or regurgitation Right ventricle is moderately dilated, right ventricular systolic function is n ormal, severe pulmonary hypertension 09/07 s/p surgery today back to baseline 2 L NC hold diuretics for now until re-eval tomorrow monitor closely 09/08 stable overall resume diuretics pain control Chronic diastolic congestive heart failure Patient currently euvolemic/on the dry side Received IV fluids at the ER Hold torsemide, spironolactone -- resume diuretics Cardiology consulted Chronic respiratory failure on 2 L of oxygen Currently at baseline 2 L Coronary Artery disease Atrial fibrillation Status post TAVR aspirin, apixaban resumed per Ortho Continue atorvastatin, sotalol Hypothyroidism Continue levothyroxine DVT prophylaxis on his usual Eliquis Disposition Will need PT and OT Will most likely need acute rehab DNR as per patient and at the bedside Admission and Anticipated Discharge Date Admission Date: September 06, 2024 Subjective ff up for s/p hip surgery seen resting in bed, comfortable aware, alert having hip pain, pain meds helping no shortness of breath, chest pain has some tremors Review of Systems Review of Systems: all noted and negative except for above Physical Exam Physical Exam: General- oriented x 3, not in distress, speaks in sentences with no effort or accessory muscle use Eyes- anicteric Neck- no JVD Lungs- clear breath sounds bilaterally, no rales/wheezes Heart- normal rate, regular rhythm; no murmurs Abdomen- normal bowel sounds, nondistended, soft, nontender Extremities- no pretibial edema, no calf tenderness R hip: dressing in place- no bleeding or discharge Neuro- alert, oriented x 3; no gross focal neurologic deficits Skin- warm & dry Results & Data Results & Data Vital Signs (Past 12 Hours) Vital Signs Temp Pulse Pulse Resp BP Pulse Ox O2 Del Method 09/08/24 07:48 88 09/08/24 07:31 36.5 C 88 16 117/58 L 98 Nasal Cannula 09/08/24 07:29 90 22 97 Nasal Cannula 09/08/24 04:14 36.5 C 86 16 131/63 96 Nasal Cannula 09/07/24 23:44 Nasal Cannula 09/07/24 23:34 88 09/07/24 23:21 88 09/07/24 23:14 36.7 C 131 H 18 99/62 L 95 Nasal Cannula 09/07/24 22:10 137 H 09/07/24 21:14 153 H O2 Flow Rate 09/08/24 07:48 09/08/24 07:31 3 09/08/24 07:29 2 09/08/24 04:14 09/07/24 23:44 3 09/07/24 23:34 09/07/24 23:21 09/07/24 23:14 09/07/24 22:10 09/07/24 21:14 all noted and reviewed including below (1) Closed right hip fracture Encounter type: initial encounter Qualified Code(s): S72.001A - Fracture of unspecified part of neck of right femur, initial encounter for closed fracture
--- NOTE | 2024-09-08 09:30 | XRay Report ---
XR chest 1V portable CLINICAL HISTORY: ff up chf COMPARISON STUDY: 09/06/2024 FINDINGS: Stable cardiac valve repair. Stable mild cardiomegaly with pulmonary vascular congestion. S table diffuse interstitial pulmonary opacities. Stable mild blunting of the costophrenic angles. No p neumothorax. IMPRESSION: Stable exam. ACT 112: Negative or not required by law. Electronically signed by: Lionel Arguello M.D. 09/08/2024 9:29 AM
[2024-09-08 10:01] LABS: Base Excess VBG 23.1 mEq/L; HCO3 VBG 55 mmol/L; Oxygen Saturation VBG 60.1 %; PCO2 VBG 102 mmHg (38-50); PO2 VBG 36 mmHg; pH VBG 7.34 (7.36-7.41)
--- NOTE | 2024-09-08 10:04 | Orthopedic Progress Note ---
Date of Service September 08, 2024 Assessment & Plan (1) Closed hip fracture: Plan: Postop day 1 status post right hip hemiarthroplasty with Dr. Heredia Patient is overall doing well. He is receiving IV Tylenol, tramadol and oxycodone for pain control. Continue with ice as needed. Continue with PT/OT. Hip precautions for 12 weeks, abduction pillow for 8 weeks. Dressing was left in place today. Can remove foam tape tomorrow and leave Silverlon in place. Patient will follow-up in our office in 2 weeks for Zipline removal. All of his questions and concerns were addressed. Case management for discharge needs, patient will likely need rehab placement. Continue care and DVT phx per medicine service. Admission and Anticipated Discharge Date Admission Date: September 06, 2024 Subjective Patient was seen and examined bedside. He reports 5 out of 10 pain currently. Denies any chest pain, shortness of breath, fevers, chills, dizziness. He does not have much appetite this morning. He is drinking okay. Physical Exam Physical Exam: Dressing clean, dry and intact. Left in place today. Thigh and calf are soft and compressible. Patient is able to wiggle all of his toes and pump his ankles up and down and 5 out of 5 strength with dorsiflexion/plantarflexion. He has neuropathy at baseline but nothing changed and is able to feel light touch distally. 2+ dorsal pedal pulses present. Abduction pillow in place. Results & Data Vital Signs (Past 12 Hours) Vital Signs Temp Pulse Pulse Resp BP Pulse Ox O2 Del Method 09/08/24 07:48 88 09/08/24 07:31 36.5 C 88 16 117/58 L 98 Nasal Cannula 09/08/24 07:29 90 22 97 Nasal Cannula 09/08/24 04:14 36.5 C 86 16 131/63 96 Nasal Cannula 09/07/24 23:44 Nasal Cannula 09/07/24 23:34 88 09/07/24 23:21 88 09/07/24 23:14 36.7 C 131 H 18 99/62 L 95 Nasal Cannula 09/07/24 22:10 137 H O2 Flow Rate 09/08/24 07:48 09/08/24 07:31 3 09/08/24 07:29 2 09/08/24 04:14 09/07/24 23:44 3 09/07/24 23:34 09/07/24 23:21 09/07/24 23:14 09/07/24 22:10 Laboratory Results 09/08/24 09/08/24 09/07/24 Range/Units 09:34 06:18 06:35 WBC 9.69 (4.8-10.8) K/ul RBC 2.91 L (4.70-6.10) M/uL Hgb 8.9 L (14.0-18.0) g/dl Hct 29.6 L (42.0-52.0) % MCV 101.7 H (80.0-100.0) fL MCH 30.6 (25.0-34.0) pg MCHC 30.1 L (32.0-36.0) g/dL RDW Std Deviation 67.0 H (36.4-46.3) fL RDW Coeff of Reza 18.0 H (11.5-14.5) % Plt Count 209 (130-400) K/uL MPV 11.3 (9.4-12.4) fL Immature Gran % (Auto) 0.5 % Neut % (Auto) 76.1 % Lymph % (Auto) 7.2 % [place] % (Auto) 15.7 % Eos % (Auto) 0.1 % Baso % (Auto) 0.4 % Neut # (Auto) 7.37 H (1.40-6.50) K/uL Lymph # (Auto) 0.70 L (1.20-3.40) K/uL [place] # (Auto) 1.52 H (0.11-0.59) K/uL Eos # (Auto) 0.01 (0.00-0.50) K/uL Baso # (Auto) 0.04 (0.00-0.20) K/uL Immature Gran # (Auto) 0.05 (0.01-0.20) K/uL VBG pH 7.34 L (7.36-7.41) VBG pCO2 102 H (38-50) mmHg VBG pO2 36 mmHg VBG HCO3 55 mmol/L VBG O2 Saturation 60.1 % VBG Base Excess 23.1 mEq/L Sodium 137 (136-145) mmol/L Potassium 5.4 H (3.5-5.1) mmol/L Chloride 84 L (98-107) mmol/L Carbon Dioxide > 45 H* (21-32) mmol/L Anion Gap TNP BUN 41 H (6-23) mg/dl Creatinine 0.79 (0.6-1.4) mg/dl Est Cr Clr Drug Dosing 80.6 ml/min eGFR 93.22 BUN/Creatinine Ratio 51.9 H (10-20) Glucose 116 H (70-99(Fasting)) mg/dl Calcium 8.9 (8.6-10.3) mg/dl Magnesium 2.1 (1.7-2.4) mg/dl (1) Closed hip fracture Encounter type: initial encounter Laterality: right Qualified Code(s): S72.001A - Fracture of unspecified part of neck of right femur, initial encounter for closed fracture
[2024-09-08] MEDS: TORSEMIDE 20 MG TAB PO SCH (10:14)
[2024-09-08] MEDS: SPIRONOLACTONE 12.5 MG TAB PO SCH (10:14)
--- NOTE | 2024-09-08 12:26 | Cardiology Consultation ---
Date of Consultation September 08, 2024 Assessment & Plan (1) Closed hip fracture: (2) Chronic hypoxic respiratory failure, on home oxygen therapy: (3) Interstitial lung disease: (4) PSVT (paroxysmal supraventricular tachycardia): Patient is asymptomatic tachycardia overnight last night, EKG suggestive of recurrent supraventricular tachycardia versus atrial flutter (he has a history of both). He is maintained on low-dose sotalol 40 mg p.o. twice daily with dose limited due to relative bradycardia. He is a poor candidate for amiodarone due to his underlying lung disease. Continue sotalol. He is back on Eliquis for both stroke prophylaxis and DVT prophylaxis. He has chronic multifactorial dyspnea on exertion with pulmonary hypertension, interstitial lung disease, diastolic dysfunction. I agree with resuming his home torsemide dose. I am going to continue to hold the spironolactone due to hyperkalemia, potassium 5.4 today. Patient once again asks about hospice which she had also asked about night seen in medicine outpatient earlier this month. I think this would be reasonable and ongoing discussion with regards to goals of care should be entertained. Per case management notes, there is discussion about him going to rehab at [facility], future considerations include outpatient hospice. History of Present Illness Attending Physician: Nas Thorne MD History of Present Illness Mr Daley is a 73-year-old male seen in cardiology consultation per the request of Dr. Thorne for the evaluation of acute on chronic congestive heart failure with preserved ejection fraction, tachycardia. Patient well-known to the undersigned as I had seen him as an outpatient earlier this month. Shortly thereafter he underwent ultrasound-guided right sided tho racentesis at [facility] 29/09/23 yielding 0.6 L of denise clear fluid. Dyspnea improved transiently but shortly thereafter he presented to [facility] with worsening dyspnea on exertion on 08/31/2024 and was followed by our service for congestive heart failure. Symptoms improved with furosemide 40 mg twice daily. He was discharged on 09/05/2023 however readmitted on 09/06/2024 having had a mechanical fall at home with resultant displaced right femoral neck fracture. Yesterday 09/07/2024 he underwent right bipolar prosthesis which she tolerated well. Heart rhythm has been relatively controlled earlier this hospital stay however at 8:54 PM on 09/07/2024 open 1211/20 1 PM on 09/07/2024 a narrow complex tachycardia with rate for the most part in the 150s noted consistent with the patient's history of SVT and atrial flutter. He had converted back to sinus rhythm and currently on telemetry sinus rhythm in the 80s to 90s with occasional PACs noted. Patient sitting supine. Cough noted. He is on supplemental oxygen 3 L/min nasal cannula. No subjective palpitations overnight. Problem List: Severe aortic stenosis status post TAVR (# 34mm Medtronic Evolut FX Aortic Valve), 05/03/2023 Postop left bundle branch block which resolved on its own. No permanent pacemaker placed. History of atrial flutter status post tricuspid isthmus ablation, 2013 Symptomatic atrial fibrillation status post PVI, 05/2017 Recurrent atrial fibrillation status post initiation of sotalol in October 2023 Severe mitral regurgitation Mild nonobstructive CAD-- 40% pLAD stenosis and 40% RCA per pre TAVR cath 02/2023 Hodgkin's lymphoma for which he was treated with splenectomy and radiation therapy at the age of 27 Enlarged aortic root Interstitial lung disease, oxygen dependent JULIUS Esophageal dysmotility Hypothyroidism Prediabetes Allergies Allergy/AdvReac Type Severity Reaction Status Date / Time No Known Allergies Allergy Verified 02/20/23 08:47 Home Medications Medication Instructions Recorded Confirmed Type aspirin 81 mg tablet,delayed 81 mg PO QAM 11/16/18 09/06/24 History release levothyroxine 75 mcg tablet 75 mcg PO QAM 11/16/18 09/06/24 History cholecalciferol (vitamin D3) 25 1,000 unit PO QAM 05/07/19 08/30/24 History mcg (1,000 unit) capsule (Vitamin D3) cyanocobalamin (vitamin B-12) 1,000 mcg PO QAM 05/07/19 08/30/24 History 1,000 mcg tablet (Vitamin B-12) atorvastatin 20 mg tablet 20 mg PO QAM #30 tabs 10/11/23 09/06/24 Rx apixaban 5 mg tablet (Eliquis) 5 mg PO BID 10/20/23 09/06/24 History L.acidop,casei,lactis,rham-B.lact,bam 1 cap PO DAILY #30 caps 10/25/23 08/30/24 Rx 625 mg (10 billion cell) capsule (Advanced Probiotic) ipratropium 0.5 mg-albuterol 3 mg 3 ml NEB BIDR #90 mL 10/25/23 08/30/24 Rx (2.5 mg base)/3 mL nebulization soln sodium chloride 7 % for 4 ml NEB BIDR #120 mL 10/25/23 08/30/24 Rx nebulization sotalol 80 mg tablet 40 mg (1/2 x 80 mg) PO BID #60 tabs 10/25/23 09/06/24 Rx spironolactone 25 mg tablet 12.5 mg (1/2 x 25 mg) PO DAILY 30 09/04/24 09/06/24 Rx days #15 tabs torsemide 20 mg tablet 20 mg PO QAM 30 days #30 tabs 09/04/24 09/06/24 Rx Patient History Medical History H/O Hodgkin's lymphoma Neuromuscular disorder Senile osteoporosis Low blood pressure Arthritis Hypothyroidism Hodgkin disease diagnosed at age 27--had radiation and spleenectomy Sleep apnea cpap History of atrial fibrillation follows with Dr. Graves Surgical History S/P TAVR (transcatheter aortic valve replacement) 04/2023 History of esophagogastroduodenoscopy (EGD) History of tooth extraction History of anesthesia reaction woke up once during a colonoscopy History of colonoscopy History of lymph node biopsy malignant--hodgkin History of splenectomy History of cardiac cath 2015 no stents History of cardioversion History of cardiac radiofrequency ablation x2-- "treated for A-fib" Family History Other No family history of adverse response to anesthesia Social History Smoking Status: Former smoker Tobacco Type: Cigarettes Second Hand Exposure: No; Do You Dip or Chew Tobacco: No; Hx Alcohol Use: No Hx Substance Use: No Preferred Language: German Communication Ability: Effective 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 He is yarsani Current Living Situation: Spouse Other Information That Helps Us Care for You: No Feels Safe at Home: Yes Safety Concerns: Feels Safe At This Time Assistive Devices: Oxygen - Continuous and Walker Assistive Devices Comment: walking stick Review of Systems Review of Systems: All systems reviewed & are unremarkable except as noted in HPI & below Physical Exam Physical Exam: General: Chronically ill in appearance, cachectic, no acute distress Eyes: conjunctiva are pink and non-injected, sclera clear Neck: normal jugular venous pulse, no hepatojugular reflux Chest: normal shape and normal respiratory effort Lungs: Mildly decreased breath sounds at the bases bilaterally Cardiac Exam: - regular heart sounds, no murmurs, rubs, or gallops, no jugular venous distention Abdomen: abdomen soft, non-tender, no abnormal masses and no hepatosplenomegaly Musculoskeletal: no gait disturbance, no weakness Extremities: no edema and no cyanosis Neuro:awake, conversant, follows commands, no focal motor deficits Results & Data Vital Signs (Past 12 Hours) Vital Signs Temp Pulse Pulse Resp BP Pulse Ox Pulse Ox 09/08/24 11:38 09/08/24 11:00 95 09/08/24 11:00 36.6 C 83 16 117/55 L 98 09/08/24 07:48 88 09/08/24 07:31 36.5 C 88 16 117/58 L 98 09/08/24 07:29 90 22 97 09/08/24 04:14 36.5 C 86 16 131/63 96 O2 Del Method O2 Del Method O2 Flow Rate O2 Flow Rate 09/08/24 11:38 Nasal Cannula 3 09/08/24 11:00 Nasal Cannula 3 09/08/24 11:00 Nasal Cannula 2 09/08/24 07:48 09/08/24 07:31 Nasal Cannula 3 09/08/24 07:29 Nasal Cannula 2 09/08/24 04:14 Nasal Cannula Laboratory Results CBC 09/08/24 Range/Units 06:18 WBC 9.69 (4.8-10.8) K/ul RBC 2.91 L (4.70-6.10) M/uL Hgb 8.9 L (14.0-18.0) g/dl Hct 29.6 L (42.0-52.0) % Plt Count 209 (130-400) K/uL Neut # (Auto) 7.37 H (1.40-6.50) K/uL Lymph # (Auto) 0.70 L (1.20-3.40) K/uL [place] # (Auto) 1.52 H (0.11-0.59) K/uL Eos # (Auto) 0.01 (0.00-0.50) K/uL Baso # (Auto) 0.04 (0.00-0.20) K/uL Comprehensive Metabolic Panel 09/08/24 Range/Units 06:18 Sodium 137 (136-145) mmol/L Potassium 5.4 H (3.5-5.1) mmol/L Chloride 84 L (98-107) mmol/L Carbon Dioxide > 45 H* (21-32) mmol/L BUN 41 H (6-23) mg/dl Creatinine 0.79 (0.6-1.4) mg/dl Glucose 116 H (70-99(Fasting)) mg/dl Calcium 8.9 (8.6-10.3) mg/dl Intake and Output 09/07/24 09/08/24 09/08/24 22:59 06:59 14:59 Intake Total 100 / 1660 660 / 1660 100 / 100 Output Total 850 / 1625 Balance 100 / 35 -190 / 35 100 / 100 Intake: IV 100 / 500 300 / 500 100 / 100 Acetaminophen 1,000 mg In 100 100 / 200 100 / 200 100 / 100 ml @ 400 mls/hr IV Q8H [facility] Rx#: [id number] Albumin 25% 25 gm In 100 ml @ 100 / 100 50 mls/hr IV ONE ONE Rx#: [id number] Magnesium Sulfate / D5w 1 gm In 100 / 100 100 ml @ 50 mls/hr IV ONE ONE Rx#:[id number] Oral 360 / 360 Output: Urine Amount (Catheter) 850 / 1575 [place]/Indwelling 850 / 1575 Other: Weight 69.5 kg Weight Measurement Method Built in [facility] Diagnostic Findings Transthoracic echocardiogram performed 09/06/2024: LVEF 55 to 60% without regional wall motion arise Moderate concentric left ventricular hypertrophy Status post TAVR without stenosis or regurgitation Moderate right ventricular dilatation, normal right ventricular systolic function Severe pulmonary hypertension, pulmonary systolic pressure estimated be 74 mmHg EKG performed 09/07/2024 at 2105 with narrow complex tachycardia 141 bpm consistent with SVT, age-indeterminate septal infarction pattern EKG performed 09/06/2024: Sinus rhythm at 86 bpm with PACs, no significant repolarization changes, age-indeterminate septal infarction pattern noted which is a chronic finding,Corrected QT interval 486 ms, stable. Chest x-ray performed 09/08/2024: Diffuse interstitial pulmonary opacities relatively unchanged compared to 09/06/2024 (1) Closed hip fracture Encounter type: initial encounter Laterality: right Qualified Code(s): S72.001A - Fracture of unspecified part of neck of right femur, initial encounter for closed fracture
--- NOTE | 2024-09-08 14:22 | Electrocardiogram Report ---
Test Reason : Blood Pressure : */* mmHG Vent. Rate : 141 BPM Atrial Rate : 78 BPM P-R Int : * ms QRS Dur : 90 ms QT Int : 270 ms P-R-T Axes : * -16 71 degrees QTcB Int : 413 ms Probable Atrial fibrillation with rapid ventricular response Right bundle branch block Abnormal ECG When compared with ECG of 06-Sep-2024 09:58, Premature ventricular complexes are now Present Premature supraventricular complexes are no longer Present Vent. rate has increased by [address] now depressed in Lateral leads T wave inversion no longer evident in Anterior leads Confirmed by Mark Bertrand [id number]) on 09/08/2024 2:22:18 PM Referred By: REFERRED SELF Confirmed By: Mark Bertrand
[2024-09-08 15:58] LABS: BUN Creatinine Ratio 50.6 (10-20); Blood Urea Nitrogen 40 mg/dl (6-23); Calcium 9.1 mg/dl (8.6-10.3); Chloride 86 mmol/L (98-107); Creatinine Clr Calc Pharmacy 80.6 ml/min; Glucose 147 mg/dl (70-99(Fasting)); Potassium 5.1 mmol/L (3.5-5.1); Sodium 141 mmol/L (136-145)
[2024-09-08 16:00] LABS: Carbon Dioxide > 45 mmol/L (21-32)
[2024-09-09 07:18] VITALS: RESP 18
[2024-09-09 07:21] VITALS: TEMP 98.1
[2024-09-09 11:12] VITALS: BP 101/52; PULSE 95
--- NOTE | 2024-09-09 12:02 | Orthopedic Progress Note ---
Date of Service September 09, 2024 Assessment & Plan (1) Closed hip fracture: Plan: Postop day 2 status post right hip cemented hemiarthroplasty with Dr. Heredia Pain is improved today however patient is having significant weakness. His hemoglobin yesterday was 8.9, no CBC was obtained today. I ordered this. Weakness is likely multifactorial. Neurovascularly intact. Discussed the importance of eating as much as possible to promote healing. An order was placed for the dietitian as we feel that he would benefit from supplementation like boost or Ensure to promote wound healing. Foam tape bulky dressing was removed yesterday. Today Silverlon dressing without any significant drainage. Leave Silverlon dressing in place for the next 2 weeks. Can shower with this as long as dressing remains intact. Continue with ice as needed Continue with PT/OT. Rehab was recommended. Agree. Hip precautions for 12 weeks, abduction pillow for 6 to 8 weeks. Continue pain control and DVT prophylaxis per primary service. Case management for discharge needs. 2-week follow-up in our office is scheduled and available in the discharge tab. Admission and Anticipated Discharge Date Admission Date: September 06, 2024 Subjective Patient seen in bed eating breakfast this morning. 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 He states that the pain in the right hip is improved today compared to yesterday but he still feels profoundly weak. He was unable to get up to participate with physical therapy due to his weakness. Physical Exam Constitutional: Frail-appearing resting comfortably in bed in no distress. Cardiovascular: Right PT pulse 2+ Musculoskeletal: Right lower extremity: Silverlon dressing is in place with no drainage. Surrounding soft tissue is without erythema and is soft with no ecchymosis. No pain with passive logroll of the hip. Strength 4/5 with ankle plantarflexion dorsiflexion and eversion. Hip abduction pillow is in place. Teds are present on bilateral lower extremities Neurologic: No sensory deficits in right lower extremity L3-S1 distribution Results & Data Vital Signs (Past 12 Hours) Vital Signs Temp Pulse Pulse Resp BP Pulse Ox Pulse Ox 09/09/24 11:12 98.1 F 95 H 18 101/52 L 98 09/09/24 11:00 94 09/09/24 10:33 09/09/24 07:25 87 09/09/24 07:20 98.1 F 86 18 113/62 99 09/09/24 07:17 86 18 99 09/09/24 03:46 97.9 F 77 20 96/46 L 100 09/09/24 00:25 97.7 F 78 20 104/53 L 100 O2 Del Method O2 Del Method O2 Flow Rate 09/09/24 11:12 Room Air 09/09/24 11:00 Room Air 09/09/24 10:33 Nasal Cannula 2 09/09/24 07:25 09/09/24 07:20 Nasal Cannula 2 09/09/24 07:17 Nasal Cannula 2 09/09/24 03:46 Nasal Cannula 2 09/09/24 00:25 Nasal Cannula 2 Laboratory Results 09/08/24 14:57 Sodium 141 Potassium 5.1 Chloride 86 L Carbon Dioxide > 45 H* Anion Gap TNP BUN 40 H Creatinine 0.79 Est Cr Clr Drug Dosing 80.6 eGFR 93.22 BUN/Creatinine Ratio 50.6 H Glucose 147 H Calcium 9.1 (1) Closed hip fracture Encounter type: initial encounter Laterality: right Qualified Code(s): S72.001A - Fracture of unspecified part of neck of right femur, initial encounter for closed fracture
[2024-09-09 12:26] LABS: Basophils # (auto) 0.04 K/uL (0.00-0.20); Basophils % (auto) 0.5 %; Eosinophils # (auto) 0.02 K/uL (0.00-0.50); Eosinophils % (auto) 0.2 %; Hematocrit (blood only) 27.3 % (42.0-52.0); Hemoglobin 8.6 g/dl (14.0-18.0); Immature Granulocytes # (auto) 0.04 K/uL (0.01-0.20); Immature Granulocytes % (auto) 0.5 %; Lymphocytes # (auto) 0.79 K/uL (1.20-3.40); Mean Corpuscular Hemoglobin 31.2 pg (25.0-34.0); Mean Corpuscular Hgb Conc 31.5 g/dL (32.0-36.0); Mean Corpuscular Volume 98.9 fL (80.0-100.0); Mean Platelet Volume 11.2 fL (9.4-12.4); Monocytes # (auto) 1.65 K/uL (0.11-0.59); Monocytes % (auto) 18.8 %; Neutrophils # (auto) 6.26 K/uL (1.40-6.50); Platelet Count 218 K/uL (130-400); RDW Coefficient of Variation 17.9 % (11.5-14.5); Red Blood Count 2.76 M/uL (4.70-6.10)
[2024-09-09] MEDS: HYDROmorphone INJ 0.5 MG/0.5 ML SYR IV STA (12:41)
[2024-09-09 12:50] VITALS: O2SAT 98
--- NOTE | 2024-09-09 14:41 | Discharge Summary ---
Discharge Summary Date of Service September 09, 2024 Principal Dx & Hospital Course #1 = Principal Diagnosis (1) Closed right hip fracture: 73-year-old male with history of CHF, diastolic type, chronic respiratory failure on 2 L of oxygen, CAD, atrial fibrillation, status post TAVR, hypothyroidism, presenting with a right hip fracture, status post mechanical fall. Acute mildly displaced subcapital right femoral neck fracture Status post mechanical fall Ortho consulted Pain medications as follows-Tylenol 1 g every 8 hours, as needed tramadol and oxycodone Patient is a high risk for cardiopulmonary complications perioperatively in light of age, significant cardiac history discussed with Ortho S[facility]- plan for OR tomorrow discussed with Anesthesia SVC Dr. Marinelli- recommend to obtain echo echo report reviewed: EF 55 to 60%, moderate concentric LVH, normal left ventricular wall motion abnormalities, patient is status post TAVR, no aortic stenosis or regurgitation Right ventricle is moderately dilated, right ventricular systolic function is normal, severe pulmonary hypertension 09/07 -s/p surgery today -back to baseline 2 L NC -ok for rehab per ortho Chronic diastolic congestive heart failure Patient currently euvolemic/on the dry side Received IV fluids at the ER Hold torsemide, spironolactone Chronic respiratory failure on 2 L of oxygen Currently at baseline 2 L Coronary Artery disease Atrial fibrillation Status post TAVR aspirin, apixaban resumed per Ortho Continue atorvastatin, sotalol Hypothyroidism Continue levothyroxine [facility] minutes spent discussing goals and values with patient and . Discussed patients current clinical situation compared to prior (this provider has seen this patient over past few weeks), including decreasing mobility and weakness in setting of end stage pulmonary HTN/heart failure and COPD. Patient states his mobility has significantly declined over past few weeks. He states that he does not want to come back to the hospital, and would like to focus on comfort at this time. Hospice was discussed at length, including home hospice vs. hospice in a facility. Mr. Daley states his goal is to get a bit stronger at rehab then focus on his comfort, which is reasonable given his severe pulmonary HTN and heart failure. Patient and family would like to discuss amongst themselves and hospice music therapy clinical course over the next few days and weeks to determine whether he wants hospice at home or at a facility post rehab. Notes For Next Care Provider 73-year-old male with history of CHF, diastolic type, chronic respiratory failure on 2 L of oxygen, CAD, atrial fibrillation, status post TAVR, hypothyroidism, presenting with a right hip fracture, status post mechanical fall. Found to have right hip fracture, taken to OR. Post op course complicated by weakness. Discussed GOC with patient, see above, patient would like to do acute rehab to regain some functional mobility if possible then transition to hospice services (either at home or in a facility). Patient medically stable for discharge to rehab. Of note, patient has bouts of SVT, cardiology consulted, no further recommendations for paroxysmal SVT/flutter and is chronic and self resolving, no cause for alarm. If patient declines at rehab, would transition to hospice services at that time which is in line with patients wishes. Medication Changes From Visit -see below Admission HPI Per Admitting Provider 73-year-old male with history of CHF, diastolic type, chronic respiratory failure on 2 L of oxygen, CAD, atrial fibrillation, status post TAVR, hypothyroidism, presenting with a right hip fracture, status post mechanical fall. Patient was just discharged from [facility] last September 04, 2024 after being treated for CHF exacerbation. After evaluation by physical therapist who deemed that the patient demonstrated good balance and tolerance with interim standing/normal activities, patient was discharged to home. This morning, upon waking up, patient was trying to get out of bed when he is legs: "Gave out. He then fell and hit his right hip, subsequently developing right hip pain. No head trauma as per patient X-ray of the pelvis revealing acute mildly displaced subcapital right femoral neck fracture. Seen resting in bed, comfortable, not in distress. States he has some right hip pain, relieved by morphine Denies chest pain, shortness of breath, palpitations, dizziness, nausea or any other symptoms Discharge Exam Gen: A&O 3 NAD, severe cachexia and weakness noted HEENT: NCAT, EOMI, not icteric. External ears normal. No rhinorrhea. Moist mucous membranes. Neck: Supple, full range of motion, no observable masses, No meningeal sign. Lungs: No Respiratory distress. CV: RRR Abdomen: Soft, nondistended, No rebound tenderness. MSK: No joint swelling, no redness. Skin: No rashes, petechiae, lesions. Normal color per patient. Neuro: Normal Gait, Grossly intact. Psych: Appropriate for situation. Updated Medication List Medication Instructions Recorded Confirmed Type aspirin 81 mg tablet,delayed 81 mg PO QAM 11/16/18 09/06/24 History release levothyroxine 75 mcg tablet 75 mcg PO QAM 11/16/18 09/06/24 History cholecalciferol (vitamin D3) 25 1,000 unit PO QAM 05/07/19 08/30/24 History mcg (1,000 unit) capsule (Vitamin D3) cyanocobalamin (vitamin B-12) 1,000 mcg PO QAM 05/07/19 08/30/24 History 1,000 mcg tablet (Vitamin B-12) atorvastatin 20 mg tablet 20 mg PO QAM #30 tabs 10/11/23 09/06/24 Rx apixaban 5 mg tablet (Eliquis) 5 mg PO BID 10/20/23 09/06/24 History L.acidop,casei,lactis,rham-B.lact,bam 1 cap PO DAILY #30 caps 10/25/23 08/30/24 Rx 625 mg (10 billion cell) capsule (Advanced Probiotic) ipratropium 0.5 mg-albuterol 3 mg 3 ml NEB BIDR #90 mL 10/25/23 08/30/24 Rx (2.5 mg base)/3 mL nebulization soln sodium chloride 7 % for 4 ml NEB BIDR #120 mL 10/25/23 08/30/24 Rx nebulization sotalol 80 mg tablet 40 mg (1/2 x 80 mg) PO BID #60 tabs 10/25/23 09/06/24 Rx spironolactone 25 mg tablet 12.5 mg (1/2 x 25 mg) PO DAILY 30 09/04/24 09/06/24 Rx days #15 tabs torsemide 20 mg tablet 20 mg PO QAM 30 days #30 tabs 09/04/24 09/06/24 Rx oxycodone 5 mg tablet 5 mg PO Q6H PRN pain 5 days #20 09/09/24 Rx tabs polyethylene glycol 3350 17 gram 17 g PO DAILY #30 ea 09/09/24 Rx oral powder packet (Miralax) Hospital Stay Data Consultations 09/06/24 08:51 ED Decision to Admit Stat 09/06/24 08:59 Consult Orthopedic Surgery Routine 09/06/24 11:11 Consult Anesthesiology Routine 09/08/24 09:11 Consult Cardiology Routine Procedures Performed Operation Date: 09/07/24 10:00 Actual Procedures p Right Bipolar Hip Prosthesis Cemented(Right) - Joo Heredia MD Diagnostic Imagining Performed 09/06/24 07:47 CT head/brain wo con Stat Pending Results Patient Have Any Pending Studies at Discharge: No Discharge Instructions Given to Patient (Per Discharging Provider) 1. Consider transition to hospice services once acute rehab is complete. 2. Work hard at rehab to regain some mobility. Total Time Total Time Spent Total Time Spent (In Minutes): I spent a total of 35 minutes in direct patient care, including [id number] time with the patient and/or family, reviewing medical records, ordering and reviewing diagnostic tests, and coordinating care with other healthcare providers. This time includes: history taking, physical examination, medical decision making, counseling, ECG interpretation, imaging interpretation, lab interpretation, orders, and education, excluding time spent in the performance of separately billed services. I spent a total of 30 minutes providing advanced care planning to the patient and/or family, including [id number] time discussing the patient's health status, prognosis, and treatment options. This time includes specific activities such as: discussing advance directives, goals of care, prognostication, and end-of-life planning.
== END 2024-09-09 16:49 | DRG 521 ==
LOC: ED 07:35 → 2N 08:59 → SUATTDRO 08:59 → 2N 10:05